=== PATIENT | female | born 1940 | race Caucasian/White ===

== ENCOUNTER 2019-07-07 19:47 | Emergency (ER) | payer MEDICARE, OTHER, SELFPAY ==
--- NOTE | ~2019-07-07 | XR_ITS ---
EXAMINATION: XR chest 2V DATE: 07/07/2019 20:21 INDICATION: Shortness of breath and hypertension TECHNIQUE: AP and lateral views of the chest are obtained. COMPARISON: 06/03/2019 FINDINGS: The lungs are hyperinflated but free of acute opacities. There is no pleural effusion or pn eumothorax. The cardiomediastinal silhouette is normal. There is moderate thoracic spondylosis. IMPRESSION: 1. Hyperinflation without acute cardiopulmonary abnormality. Reviewed, dictated and finalized at location A. TRICIAN MAINTENANCE
[2019-07-07 19:52] VITALS: BP 193/72; PULSE 65; RESP 16; TEMP 36.8; O2SAT 99
--- NOTE | 2019-07-07 19:58 | ED.RECABL ---
HPI - Recheck/Abnormal Lab/Rx General Chief Complaint: Recheck/Abnormal Lab/Rx Stated Complaint: elevated bp Time Seen by Provider: 07/07/19 19:55 Source: patient and RN notes reviewed Mode of arrival: ambulatory Limitations: no limitations History of Present Illness HPI narrative: Pt is a 78 y/o female presenting to the ED c/o HTN. Pt reports she has been experiencing HTN recently. Pt states she was prescribed Carvedilol a month ago. Pt states she was originally prescribed the medication to be taken BID but reduced it to once daily after a check-up a week later. Pt reports she experienced palpitations, mild SOB, and tinnitus earlier today, but denies CP, HEARD, numbness, weakness, back pain, jaw pain, or arm pain. Pt states her SOB and palpitations have since resolved from their onset. Pt notes she is only currently taking Amiodarone due to a Hx of A Flutter on 05/[address] Stewart. Pt states her PCP is Dr. Thornton. Pt notes she had a TIA at the age of 29 but states they attributed it to her control. Pt was never a smoker. Description of abnormal result: HTN Associated symptoms: shortness of breath (Resolved) and other (Palpitations (resolved); Tinnitus) Treatments prior to arrival: other (6.25 mg Carvedilol) Related Data Home Medications Medication Instructions Recorded Confirmed calcium carbonate 600 mg(1,500 1 tablet PO DAILY 04/16/19 06/26/19 mg)-vitamin D3 800 unit chewable tablet lifitegrast 5 % eye drops in a 1 drop EACH EYE BID 04/16/19 06/26/19 dropperette ivqxslij-crn-xvcdr ac 400 tablet PO 04/16/19 06/26/19 mcg-calcium carb 500 mg-vit K1 20 mcg tablet rivaroxaban 20 mg tablet 20 mg PO DAILY 04/16/19 06/26/19 artifi.tears(hypromellose)(PF) 0.3 1 drop EACH EYE DAILY PRN 04/17/19 06/26/19 % eye drops lifitegrast 5 % eye drops in a 1 drop EACH EYE BID 04/17/19 06/26/19 dropperette jedskdzwyjql-otgrlcpf-caonmlq-folic 1 tablet PO DAILY 04/17/19 06/26/19 acid 400 mcg-vit K1 20 mcg tablet peppermint oil 90 mg 90 mg PO BID 04/17/19 06/26/19 capsule,delayed,extended release rivaroxaban 20 mg tablet 20 mg PO DAILY 04/17/19 06/26/19 Allergies Allergy/AdvReac Type Severity Reaction Status Date / Time monosodium glutamate Allergy Unknown unkwown Verified 06/26/19 09:54 Review of Systems Review of Systems: All systems reviewed & are unremarkable except as noted in HPI and below ENT: Reports tinnitus Cardiovascular: Cardiovascular: Denies chest pain and Reports palpitations (Resolved) Respiratory: Respiratory: Reports dyspnea (Resolved) Musculoskeletal: Musculoskeletal: Denies back pain and Denies other (Jaw pain; arm pain) Neurologic: Denies headache(s), Denies numbness and Denies weakness PMF Past Medical History Medical History Arthritis Atrial fibrillation Colitis Elevated lipids Headache, migraine Hypertension Surgical History Surgical History H/O hernia repair History of eyelid surgery History of uterine suspension procedure Family History Family History Mother Acute myocardial infarction, Onset Age: 93 Family history of liver disease, Onset Age: 93 Family history of chronic obstructive pulmonary disease Family history of renal failure, Onset Age: 93 Family history of elevated blood lipids Family history of kidney disease Family history of congestive heart failure Father Family history of migraine headaches Hypertension Other Cerebrovascular accident Diabetes mellitus Family history of cardiovascular disease Family history of malignant neoplasm Social History Social History Smoking status: Never smoker Alcohol intake: never Gender identity (if verbalized by the patient): Female Exam Const: General: cooperative, no acute distress and alert Nutritional Rajesh
--- NOTE | 2019-07-07 20:07 | ECG_ITS ---
Measurements Intervals [place] Rate: 61 P: 266 NE: 117 QRS: -34 QRSD: 96 T: 63 QT: 423 QTc: 429 Interpretive Statements ECTOPIC ATRIAL RHYTHM LEFT AXIS DEVIATION CANNOT RULE OUT SEPTAL INFARCT, AGE INDETERMINATE BASELINE ARTIFACT- I, III, AVL, V2 ABNORMAL ECG Electronically Signed On 07-08-2019 6:50:00 COLLECTION CORRESPONDENT by Garrison Stewart D.O.
[2019-07-07 20:34] LABS: Basophils Percent Auto 0.4 % (0.2-1.2); Eosinophils Absolute Auto 0.1 K/mm3 (0-0.3); Eosinophils Percent Auto 1.3 % (0-4.4); Hematocrit 38.5 % (37.0-47.0); Hemoglobin 12.9 g/dL (12.0-15.0); Immature Granulocyte Absolute 0.01 K/mm3 (0.00-0.031); Immature Granulocyte Percent A 0.1 % (0-0.5); Lymphocytes Absolute Auto 1.89 K/mm3 (0.9-3.2); Lymphocytes Percent Auto 22.3 % (18.3-44.2); Mean Corpuscular HGB Conc 33.5 g/dl (32-36); Mean Corpuscular Hemoglobin 30.9 pg (26-34); Mean Corpuscular Volume 92.3 fl (80-100); Mean Platelet Volume 9.3 fl (7.4-10.4); Monocytes Absolute Auto 0.7 K/mm3 (0.1-0.6); Monocytes Percent Auto 7.8 % (2.6-8.5); Neutrophils Absolute Auto 5.8 K/mm3 (1.3-6.7); Neutrophils Percent Auto 68.1 % (45.5-73.1); Platelet Count Result 219 k/mm3 (150-375); Red Blood Count 4.17 M/mm3 (4.2-5.4); Red Cell Distribution Width 12.7 % (11.5-14.5); White Blood Count 8.5 K/mm3 (4.5-10.0)
[2019-07-07 20:46] LABS: Alanine Aminotransferase 22 U/L (4-35); Albumin Level 4.3 g/dL (3.5-5.1); Alkaline Phosphatase 94 U/L (38-126); Aspartate Amino Transferase 36 U/L (14-36); Bilirubin,Total 0.5 mg/dL (0.2-1.3); Blood Urea Nitrogen 21 mg/dL (7-17); Calcium 9.6 mg/dL (8.4-10.2); Carbon Dioxide 28 mmol/L (22-30); Chloride 94 mmol/L (98-107); Estimated CRCL calculation 38 ml/min; Estimated Glomerular Filt Rate 54; Glucose 127 mg/dL (65-105); Potassium 4.3 mmol/L (3.4-5.0); Sodium 135 mmol/L (137-145)
[2019-07-07 20:58] LABS: NT Pro B Type Natriuretic Pept 597 PG/ML (5-100); Troponin I < 0.012 ng/mL (0.000-0.034)
[2019-07-07 21:53] VITALS: BP 122/51; PULSE 51; RESP 18; O2SAT 98
== END 2019-07-07 21:53 | disposition home or self-care (01) ==
LOC: ANHED 21:24
PROVIDERS: Emergency Provider Emergency Medicine; PCP Emergency Medicine
DX: I10 Essential (primary) hypertension (principal); I48.92 Unspecified atrial flutter; M19.90 Unspecified osteoarthritis, unspecified site; R06.02 Shortness of breath; R94.31 Abnormal electrocardiogram [ECG] [EKG]; I48.91 Unspecified atrial fibrillation; Z86.73 Personal history of transient ischemic attack (TIA), and cerebral infarction without residual deficits; Z79.01 Long term (current) use of anticoagulants
CPT/HCPCS: 36415; 71046; 80053; 83880; 84484; 85025; 93005; 99284

== ENCOUNTER → 2019-08-13 15:34 | Outpatient (CLI) | payer MEDICARE, OTHER, SELFPAY ==
--- NOTE | ~2019-08-13 | XR_ITS ---
XR chest 2V DATE: 08/13/2019 16:09 INDICATION: Pain at costochondral junctions TECHNIQUE: PA and lateral views COMPARISON: 07/07/2021 view chest FINDINGS: Bilateral hyperinflation suggesting COPD. Bilateral apical capping, mild elevation of the h yudith, consistent with chronic bilateral upper lobe scarring and volume loss. No pulmonary infiltrate or consolidation, pleural effusion or pulmonary vascular congestion or pneumo thorax. Heart size is within normal limits. Diffuse idiopathic skeletal hyperostosis of the thoracic spine.. IMPRESSION: Bilateral hyperinflation suggesting COPD Bilateral chronic upper lobe scarring and volume loss Diffuse idiopathic skeletal hyperostosis of the thoracic spine. Reviewed, dictated and finalized at location J.
== END ==
PROVIDERS: PCP Emergency Medicine; Visit Provider Emergency Medicine
DX: M94.0 Chondrocostal junction syndrome [Tietze] (principal); R91.8 Other nonspecific abnormal finding of lung field; M48.14 Ankylosing hyperostosis [Forestier], thoracic region
CPT/HCPCS: 71046

== ENCOUNTER 2019-08-21 13:40 | Emergency (ER) | payer MEDICARE, OTHER, SELFPAY ==
--- NOTE | 2019-08-21 13:50 | ED.GENADULT ---
HPI - General Adult General Chief complaint: Back Pain/Injury Stated complaint: sob/rib pain Time Seen by Provider: 08/21/19 13:50 Source: patient Mode of arrival: ambulatory Limitations: no limitations History of Present Illness HPI narrative: 78-year-old female patient presents to the [facility] with complaints of chest burning and rib pain that has been intermittent for the past couple of months. Patient states that her doctor sent her for chest x-ray last week and she was diagnosed with COPD. Patient was given an albuterol inhaler prescribed by her primary doctor and she does have a follow-up appointment at the end of this month to see him. Patient states that the pain continues and was advised by her primary doctor that this most likely is pleurisy and was advised to take Tylenol for the pain which she states that she has not yet taken. Patient presents to the [facility] stating that she would wishes to be checked out because she was never actually seen by her doctor and the pain has not gone away despite her not taking the Tylenol. Patient states she has used her albuterol inhaler a couple times. Patient denies any fevers. Denies any coughing. Denies any flulike symptoms. Denies any chest pain or shortness of breath at this time. Patient denies any abdominal pain, nausea, vomiting or diarrhea. Related Data Home Medications Medication Instructions Recorded Confirmed calcium carbonate 600 mg(1,500 1 tablet PO DAILY 04/16/19 07/10/19 mg)-vitamin D3 800 unit chewable tablet lifitegrast 5 % eye drops in a 1 drop EACH EYE BID 04/16/19 07/10/19 dropperette artifi.tears(hypromellose)(PF) 0.3 1 drop EACH EYE DAILY PRN 04/17/19 07/10/19 % eye drops isqfwsxqzghq-pnwkbgzz-kqlzznk-folic 1 tablet PO DAILY 04/17/19 07/10/19 acid 400 mcg-vit K1 20 mcg tablet peppermint oil 90 mg 90 mg PO BID 04/17/19 07/10/19 capsule,delayed,extended release Allergies Allergy/AdvReac Type Severity Reaction Status Date / Time monosodium glutamate AdvReac Unknown Fatigued Verified 08/21/19 13:49 Review of Systems Review of Systems: Narrative: CONSTITUTIONAL: Denies fever, chills, or sweats. EYES: Denies visual changes, redness, or discharge. ENT: Denies rhinorrhea, congestion, sore throat, or otalgia. CARDIOVASCULAR: Positive rib/chest pain intermittently for the past couple of months, denies palpitations, or edema. RESPIRATORY: Denies cough or dyspnea. GASTROINTESTINAL: Denies abdominal pain, nausea, vomiting, or diarrhea. GENITOURINARY: Denies dysuria or hematuria. SKIN: Denies rash or itching. MUSCULOSKELETAL: Denies back pain, joint pain, or myalgia. NEUROLOGIC: Denies headache, numbness, or weakness. PSYCHIATRIC: Denies anxiety or depression. [facility] Past Medical History Medical History Arthritis Atrial fibrillation Colitis Elevated lipids Headache, migraine Hypertension Surgical History Surgical History H/O hernia repair History of eyelid surgery History of uterine suspension procedure Family History Family History Mother Acute myocardial infarction, Onset Age: 93 Family history of liver disease, Onset Age: 93 Family history of chronic obstructive pulmonary disease Family history of renal failure, Onset Age: 93 Family history of elevated blood lipids Family history of kidney disease Family history of congestive heart failure Father Family history of migraine headaches Hypertension Other Cerebrovascular accident Diabetes mellitus Family history of cardiovascular disease Family history of malignant neoplasm Social History Social History Smoking status: Never smoker Alcohol intake: never Gender identity (if verbalized by the patient): Female Comments At the time of my
[2019-08-21 13:52] VITALS: BP 171/84; PULSE 57; RESP 16; TEMP 37.1; O2SAT 97
--- NOTE | 2019-08-21 14:02 | ECG_ITS ---
Measurements Intervals [place] Rate: 56 P: -89 FL: 123 QRS: -37 QRSD: 102 T: 69 QT: 438 QTc: 425 Interpretive Statements ECTOPIC ATRIAL BRADYCARDIA LEFT AXIS DEVIATION CANNOT RULE OUT SEPTAL INFARCT, AGE INDETERMINATE BASELINE ARTIFACT- I, II, AVR ABNORMAL ECG Electronically Signed On 08-21-2019 14:15:11 CDT by Garrison Stewart D.O.
== END 2019-08-21 14:27 | disposition home or self-care (01) ==
PROVIDERS: Emergency Provider Nurse Practitioner Family; PCP Emergency Medicine
DX: R07.9 Chest pain, unspecified (principal); M54.5 Low back pain; R94.31 Abnormal electrocardiogram [ECG] [EKG]; M19.90 Unspecified osteoarthritis, unspecified site; I48.91 Unspecified atrial fibrillation; I10 Essential (primary) hypertension; J44.9 Chronic obstructive pulmonary disease, unspecified
CPT/HCPCS: 93005; 99213; G0463

== ENCOUNTER 2019-09-07 06:55 | Inpatient (IN) | payer MEDICARE, OTHER, SELFPAY ==
[2019-09-07] VITALS (11 sets, daily range): BP systolic 122–189; BP diastolic 57–107; PULSE 55–110; RESP 15–20; TEMP 36.4–36.9; O2SAT 97–100; BMI 26.6
--- NOTE | ~2019-09-07 | XR_ITS ---
EXAMINATION: XR chest 2V DATE: 09/09/2019 10:23 INDICATION: Hyponatremia. TECHNIQUE: Frontal and lateral views of the chest were obtained. COMPARISON: Chest 2 views 08/13/2019, CT abdomen and pelvis 09/07/2019 FINDINGS: There is mild scarring at the lung apices. There is a small left posterior diaphragmatic he rnia. No pleural effusion or pneumothorax. The heart size is normal. IMPRESSION: 1. Mild scarring at the lung apices. Reviewed, dictated and finalized at location A.
--- NOTE | ~2019-09-07 | CT_ITS ---
EXAMINATION: CT abdomen pelvis w con INDICATION: Abdominal pain TECHNIQUE: Computed tomographic images of the abdomen and pelvis were obtained after the administrati on of 100 cc of Omnipaque 350 intravenous contrast. The dose-length product (DLP) was 384.77 mGy-cm. Automated exposure control and iterative reconstruction technique were employed. COMPARISON: 09/14/2018 FINDINGS: There are tree-in-bud opacities of the right lower lobe. The heart size is normal. Pectus e xcavatum is noted. The liver, spleen, pancreas, gallbladder, and adrenal glands are normal. Hypoatten uating lesions in the kidneys, measuring up to 2 mm in the right kidney, are too small to characteriz e but likely represent cysts. No pathologically enlarged abdominal or pelvic lymph nodes are identifi ed. There is no free intraperitoneal gas or evidence of bowel obstruction. There is moderate distenti on of the urinary bladder. Calcified uterine fibroids are noted. There is moderate lumbar spondylosis . IMPRESSION: 1. No CT correlate for the patient's symptoms. Reviewed, dictated and finalized at location A.
--- NOTE | ~2019-09-07 | US_ITS ---
EXAMINATION: US carotid duplex BI EXAM DATE: 09/09/2019 16:18 INDICATION: Left carotid bruit. TECHNIQUE: Grayscale, color and pulsed Doppler images of the cervical carotid arteries were obtained . The degree of vessel stenosis is placed in one of the following categories: normal, <50% stenosis, 50-69% stenosis, >=70% stenosis but less than near-occlusion, near-occlusion, or occlusion. Note that percent stenosis relative to normal distal artery lumen diameter is indirectly measured from velocit y measurements as described by Hari, et al. Radiology 2003; [id number]:[id number]. Comparison is made to prior examination from 11/02/2007. FINDINGS: RIGHT SIDE: Right common carotid artery peak systolic velocity (PSV in cm/s): 93 Right bulb/internal carotid artery peak systolic velocity (PSV in cm/s): 192 Right internal carotid artery end diastolic velocity (EDV in cm/s): 62 Right ICA/CCA peak systolic ratio: 2.1 Right external carotid artery peak systolic velocity (PSV in cm/s): 106 Right vertebral artery antegrade flow: yes There is no focal plaque. LEFT SIDE: Left common carotid artery peak systolic velocity (PSV in cm/s): 107 Left bulb/internal carotid artery peak systolic velocity (PSV in cm/s): 222 Left internal carotid artery end diastolic velocity (EDV in cm/s): 71 Left ICA/CCA peak systolic ratio: 2.1 Left external carotid artery peak systolic velocity (PSV in cm/s): 85 Left vertebral artery antegrade flow: yes There is no focal plaque. IMPRESSION: 1. Normal right internal carotid artery. 2. Normal left internal carotid artery. Reviewed, dictated and finalized at location A.
--- NOTE | 2019-09-07 07:10 | ED.NAVMDI ---
HPI - Nausea/Vomiting/Diarrhea General Chief complaint: Nausea/Vomiting/Diarrhea Stated complaint: n/v Source: RN notes reviewed History of Present Illness HPI Narrative: Patient presents to emergency department from home for diarrhea. Patient states she has had 7 episodes of diarrhea starting this morning. States it all been watery in nature. She notes some mild lower abdominal cramping with the symptoms. Patient also notes associated nausea but denies any vomiting. Patient states she was feeling fine last night. She denies any fevers or chills chest pain shortness of breath or any other symptoms. Patient did receive Zofran 4 mg in route by EMS Related Data Home Medications Medication Instructions Recorded Confirmed calcium carbonate 600 mg(1,500 1 tablet PO DAILY 04/16/19 09/07/19 mg)-vitamin D3 800 unit chewable tablet lifitegrast 5 % eye drops in a 1 drop EACH EYE BID 04/16/19 09/07/19 dropperette artifi.tears(hypromellose)(PF) 0.3 1 drop EACH EYE DAILY PRN 04/17/19 09/07/19 % eye drops gbqcmjiiqeio-worroeni-lcdnhmm-folic 1 tablet PO DAILY 04/17/19 09/07/19 acid 400 mcg-vit K1 20 mcg tablet Allergies Allergy/AdvReac Type Severity Reaction Status Date / Time monosodium glutamate AdvReac Unknown Fatigued Verified 09/07/19 07:03 Review of Systems Review of Systems: Narrative: Gen.: Denies fevers or chills ENT: Denies congestion Respiratory: Denies shortness of breath or cough CV: Denies chest pain or palpitations GI: See HPI denies burning, urgency, frequency or hematuria Musculoskeletal: Denies back pain or muscle pain Neuro: Denies numbness, tingling, weakness or focal weakness Skin: Denies rash Except as documented, all other systems reviewed and negative PMF Past Medical History Medical History Arthritis Atrial fibrillation Colitis Elevated lipids Headache, migraine Hypertension Social History Social History Smoking status: Never smoker Alcohol intake: never Gender identity (if verbalized by the patient): Female Exam Narrative: Exam Narrative: APPEARANCE: No acute distress, nontoxic, resting in bed HEENT: Normocephalic, atraumatic, OMM RESPIRATORY: No respiratory distress, clear to auscultation bilaterally with no rhonchi wheezing or rales CARDIOVASCULAR: RRR s murmur ABDOMINAL: Soft, nondistended, tender palpation left lower quadrant, no tenderness in right lower quadrant, right upper quadrant left upper quadrant, no rebound or guarding MUSCULOSKELETAl: Moves all extremities. No clubbing, cyanosis or edema. NEURO: Awake and alert. Following commands, speech normal, no focal deficits SKIN:: Warm, dry. Normal Color PSYCHIATRIC: Normal affect/mood Course Course Emergency Course: Patient states she was started on hydrochlorothiazide approximately 1 month ago Discussed with Dr. Macias presentation work-up he agrees with admission at this time. Recommends patient continue with 0.9 normal saline at 100 mL an hour Discussed with patient and family results of workup and diagnosis. Discussed need for admission. Patient and family understand and agree to current treatment plan Vital Signs Vital signs: Vital Signs Temperature 97.6 F 09/07/19 06:59 Pulse Rate 60 09/07/19 06:59 Respiratory Rate 20 09/07/19 06:59 Blood Pressure 189/82 H 09/07/19 06:59 Pulse Oximetry 97 09/07/19 06:59 Temperature 97.6 F 09/07/19 06:59 Pulse Rate 55 L 09/07/19 10:10 Respiratory Rate 19 09/07/19 09:16 Blood Pressure 137/77 09/07/19 10:10 Pulse Oximetry 100 09/07/19 10:10 MDM - Nausea/Vomiting/Diarrhea Lab Data Result diagrams: 09/07/19 07:36 09/07/19 07:36 Labs: Lab Results 09/07/19 09/07/19 09/07/19 Range/Units 07:16 07:36 07:36 WBC 8.1 (4.5-10.0) K/mm3 RBC 3.94 L (4.2-5.4) M/mm3 Hgb 12.4 (12
[2019-09-07] MEDS: SODIUM CHLORIDE 0.9% IV 1,000 ML 999 ML IV CONT (07:20)
[2019-09-07 07:27] LABS: Add Urine Microscopic? YES; Appearance Urine Clear (Clear); Bacteria Urine Trace /hpf; Bilirubin Urine Negative (Negative); Blood Urine 3+ (Negative); Color Urine Straw (Yellow); Glucose Urine UA 1+ mg/dL (Negative); Ketones Urine Negative (Negative); Leukocyte Esterase Ur Negative LEU/UL (Negative); Mucus Urine Rare /lpf; Nitrate Urine Negative (Negative); Protein Urine Negative (Negative); RBC Urine >75 /hpf (0-2); Specific Grav Ur 1.008 (1.001-1.035); Urobilinogen Urine Negative mg/dL (<2.0); WBC Urine 0-3 /hpf
[2019-09-07 07:44] LABS: Basophils Percent Auto 0.1 % (0.2-1.2); Eosinophils Percent Auto 0.5 % (0-4.4); Hematocrit 34.9 % (37.0-47.0); Hemoglobin 12.4 g/dL (12.0-15.0); Immature Granulocyte Absolute 0.03 K/mm3 (0.00-0.031); Immature Granulocyte Percent A 0.4 % (0-0.5); Lymphocytes Absolute Auto 1.04 K/mm3 (0.9-3.2); Lymphocytes Percent Auto 12.9 % (18.3-44.2); Mean Corpuscular HGB Conc 35.5 g/dl (32-36); Mean Corpuscular Hemoglobin 31.5 pg (26-34); Mean Corpuscular Volume 88.6 fl (80-100); Mean Platelet Volume 8.7 fl (7.4-10.4); Monocytes Absolute Auto 0.7 K/mm3 (0.1-0.6); Monocytes Percent Auto 9.2 % (2.6-8.5); Neutrophils Absolute Auto 6.2 K/mm3 (1.3-6.7); Neutrophils Percent Auto 76.9 % (45.5-73.1); Platelet Count Result 207 k/mm3 (150-375); Red Blood Count 3.94 M/mm3 (4.2-5.4); Red Cell Distribution Width 12.1 % (11.5-14.5); White Blood Count 8.1 K/mm3 (4.5-10.0)
[2019-09-07 07:56] LABS: INR 1.8; Partial Thromboplastin Time 35.8 SECONDS (22.3-36.8); Prothrombin Time 20.4 Seconds (11.1-14.7)
[2019-09-07 07:56] LABS: Lactic Acid Reflex 1.9 mmol/L (0.7-2.1)
[2019-09-07 08:01] LABS: Alanine Aminotransferase 20 U/L (4-35); Albumin Level 4.2 g/dL (3.5-5.1); Alkaline Phosphatase 82 U/L (38-126); Aspartate Amino Transferase 31 U/L (14-36); Bilirubin,Total 0.7 mg/dL (0.2-1.3); Blood Urea Nitrogen 9 mg/dL (7-17); Calcium 8.6 mg/dL (8.4-10.2); Carbon Dioxide 25 mmol/L (22-30); Chloride 81 mmol/L (98-107); Estimated Glomerular Filt Rate > 60; Glucose 107 mg/dL (65-105); Lipase 26 U/L (23-300); Sodium 116 mmol/L (137-145)
--- NOTE | 2019-09-07 08:21 | ECG_ITS ---
Measurements Intervals [place] Rate: 62 P: -83 IA: 133 QRS: -47 QRSD: 110 T: 76 QT: 464 QTc: 472 Interpretive Statements ECTOPIC ATRIAL RHYTHM LEFT ANTERIOR FASCICULAR BLOCK BASELINE WANDER- I, II, AVR, AVL, AVF, V1 ABNORMAL ECG Electronically Signed On 09-07-2019 8:56:46 CDT by Garrison Stewart D.O.
--- NOTE | 2019-09-07 10:30 | PC.NURSE ---
Called floor to give report, Nurse was talking to pt doctor on phone and would call ED back.
--- NOTE | 2019-09-07 11:00 | ADMGEN ---
This patient, Beth Aaron, was admitted to Medical Room 250-. Patient/family oriented to hospital policies and general routines including ID bracelet, bed and alarms, visiting hours, pain management, procedures, bathroom and other care routines, personal items, smoking policy, room service/diet, and visiting hours. Valuables list has been completed. Information on how to activate the Rapid Response Team has been discussed. Patient/Family are encouraged to report perceived risks to care and to ask questions if they do not understand what they are told or what they should do.
[2019-09-07] MEDS: SODIUM CHLORIDE 0.9% IV 1,000 ML 100 ML IV CONT (11:48)
[2019-09-07] MEDS: ONDANSETRON INJ 4 MG/2 ML VIAL IV PUSH ×2 (12:08→19:19)
[2019-09-07] MEDS: ACETAMINOPHEN 325 MG TABLET 650 MG PO (12:28)
[2019-09-07] MEDS: AMIODARONE HCL 200 MG TABLET PO (14:10)
[2019-09-07] MEDS: THERAPEUTIC MULTIVITAMINS/MINERALS TAB (*BKC) 1 TABLET PO (14:11)
[2019-09-07] MEDS: carvediloL 6.25 MG TABLET PO ×2 (14:11→21:45)
--- NOTE | 2019-09-07 14:54 | PHAR ---
HOME MEDS VERIFIED = OCUSOFT RETAINE LUBRICANT EYE DROPS & XIIDRA 5% OPHTH ANDERSON. NO RX LABELS ON EITHER SO NOTHING TO COMPARE TO.
--- NOTE | 2019-09-07 15:15 | PM.IMHP ---
H&P: HPI History of Present Illness Chief complaint: Weakness, nausea, diarrhea. Narrative: Beth Aaron is a 79-year-old female with paroxysmal atrial fibrillation and hypertension who presented to the emergency department earlier today for evaluation of weakness, nausea, and diarrhea. Yesterday morning at 04:00, she was wakened from sleep with the urge to have a bowel movement and she reports having 7 episodes of diarrhea thereafter. She did take Imodium x1, which she believes upset her stomach, and since that time she has had severe nausea and almost no oral intake due to such. This morning she was very weak when she woke, and seemed a bit confused as well. She had a difficult time walking down the hallway due to profound weakness, and EMS was summoned. Labs showed profound hyponatremia and with further investigation, it looks like her sodium has been a bit low (around 130) since May of this year. She has also been having difficulties with her blood pressure spiking for which she was initially started on amlodipine however that was changed to lisinopril/hydrochlorothiazide several months ago due to development of edema with the amlodipine. She tries to stay hydrated, estimating she drinks 6 to 7, 8 ounce glasses of water a day. For the last 3 to 4 months, she has been much more mindful of the amount of sodium that she uses, and typically adds little to no salt to her food. At the time my evaluation, she mentions a mild headache but is feeling much better. No fever, chills, or sweats. She denies vomiting. No further diarrhea. No sick contacts. Review of Systems Review of Systems: Narrative: Twelve systems were reviewed with pertinent positives and negatives as per HPI. No fever, chills, or sweats. No recent cold or flu-like symptoms. She denies cough. No exertional chest pain. She has been experiencing shortness of breath when walking up steps, and was recently diagnosed with COPD by her primary care provider, presumably due to significant secondhand smoke exposure over the years. No recent change in weight. No history of thyroid disease. Except as documented, all other systems were reviewed and are negative. [facility] Past Medical History Medical History (Updated 09/07/19 @ 15:58 by Margareth Navarro PA-C) Arthritis Colitis COPD (chronic obstructive pulmonary disease) Due to significant secondhand smoke exposure. Eczema Elevated lipids Headache, migraine Hypertension Paroxysmal atrial fibrillation Paroxysmal atrial fibrillation/atrial flutter. Patient of Dr. Garrison Stewart. Maintained on amiodarone and Xarelto. TIA (transient ischemic attack) At the age of 29, attributed to oral contraceptives. Surgical History Surgical History (Updated 09/07/19 @ 15:55 by Margareth Navarro PA-C) History of appendectomy History of eyelid surgery History of tonsillectomy History of uterine suspension procedure History of ventral hernia repair Family History Family History Mother Acute myocardial infarction, Onset Age: 93 Family history of liver disease, Onset Age: 93 Family history of chronic obstructive pulmonary disease Family history of renal failure, Onset Age: 93 Family history of elevated blood lipids Family history of kidney disease Family history of congestive heart failure Father Family history of migraine headaches Hypertension Other Cerebrovascular accident Diabetes mellitus Family history of cardiovascular disease Family history of malignant neoplasm Social History Social History (Updated 09/07/19 @ 15:56 by Margareth Navarro PA-C) Social History: The patient is and lives with her earnest in [place]. They have 2 children. 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 She is a lifelong nonsmoker but reports significant secondhand smoke exposure. No alcohol or drug abuse. Her is her surrogate decision maker, and she wishes to
[2019-09-07 15:47] LABS: Sodium 124 mmol/L (137-145)
[2019-09-07] MEDS: DEXTROSE 5% 1,000 ML 1,000 ML 100 ML IV CONT (16:27)
[2019-09-07] MEDS: RIVAROXABAN 20 MG TABLET PO (16:33)
[2019-09-07 16:52] LABS: Creatinine Urine 20.6 mg/dL
[2019-09-07 17:01] LABS: Sodium Urine Random 13 meq/L
[2019-09-07 18:55] LABS: Sodium 124 mmol/L (137-145)
[2019-09-07 18:59] LABS: Blood Urea Nitrogen 8 mg/dL (7-17); Calcium 8.6 mg/dL (8.4-10.2); Carbon Dioxide 27 mmol/L (22-30); Chloride 90 mmol/L (98-107); Estimated CRCL calculation 53 ml/min; Estimated Glomerular Filt Rate > 60; Glucose 124 mg/dL (65-105); Potassium 3.7 mmol/L (3.4-5.0); Sodium 124 mmol/L (137-145)
[2019-09-07] MEDS: DESMOPRESSIN ACETATE 4 MCG/ML AMP 2 MCG SUB-Q (19:59)
[2019-09-07 22:20] LABS: Sodium 124 mmol/L (137-145)
[2019-09-08 01:04] LABS: Sodium 121 mmol/L (137-145)
[2019-09-08 03:49] LABS: Basophils Percent Auto 0.2 % (0.2-1.2); Eosinophils Absolute Auto 0.1 K/mm3 (0-0.3); Eosinophils Percent Auto 0.9 % (0-4.4); Hematocrit 32.1 % (37.0-47.0); Hemoglobin 11.1 g/dL (12.0-15.0); Immature Granulocyte Absolute 0.02 K/mm3 (0.00-0.031); Immature Granulocyte Percent A 0.2 % (0-0.5); Lymphocytes Absolute Auto 1.73 K/mm3 (0.9-3.2); Lymphocytes Percent Auto 21.2 % (18.3-44.2); Mean Corpuscular HGB Conc 34.6 g/dl (32-36); Mean Corpuscular Hemoglobin 31.4 pg (26-34); Mean Corpuscular Volume 90.9 fl (80-100); Mean Platelet Volume 8.5 fl (7.4-10.4); Monocytes Absolute Auto 1.1 K/mm3 (0.1-0.6); Monocytes Percent Auto 13.1 % (2.6-8.5); Neutrophils Absolute Auto 5.2 K/mm3 (1.3-6.7); Neutrophils Percent Auto 64.4 % (45.5-73.1); Platelet Count Result 175 k/mm3 (150-375); Red Blood Count 3.53 M/mm3 (4.2-5.4); Red Cell Distribution Width 12.9 % (11.5-14.5); White Blood Count 8.2 K/mm3 (4.5-10.0)
[2019-09-08 04:23] LABS: Blood Urea Nitrogen 10 mg/dL (7-17); Calcium 8.3 mg/dL (8.4-10.2); Carbon Dioxide 25 mmol/L (22-30); Chloride 89 mmol/L (98-107); Estimated CRCL calculation 46 ml/min; Estimated Glomerular Filt Rate > 60; Glucose 86 mg/dL (65-105); Magnesium 1.7 mg/dL (1.6-2.3); Phosphorus 3.5 mg/dL (2.5-4.5); Potassium 3.6 mmol/L (3.4-5.0); Sodium 120 mmol/L (137-145)
[2019-09-08 06:00] VITALS: BP 123/54; PULSE 64; RESP 16; TEMP 36.7; O2SAT 99
[2019-09-08 07:04] LABS: Sodium 121 mmol/L (137-145)
[2019-09-08] MEDS: SODIUM CHLORIDE 0.9% IV 1,000 ML 75 ML IV CONT (09:28)
[2019-09-08 09:29] VITALS: PULSE 64
[2019-09-08] MEDS: carvediloL 6.25 MG TABLET PO ×2 (09:29→22:00)
[2019-09-08] MEDS: AMIODARONE HCL 200 MG TABLET PO (09:29)
[2019-09-08] MEDS: THERAPEUTIC MULTIVITAMINS/MINERALS TAB (*BKC) 1 TABLET PO (09:29)
[2019-09-08 10:48] VITALS: BP 148/52; PULSE 50; RESP 18; TEMP 36.7; O2SAT 100
--- NOTE | 2019-09-08 10:54 | ECG_ITS ---
Measurements Intervals [place] Rate: 55 P: 265 TX: 151 QRS: -17 QRSD: 109 T: 67 QT: 487 QTc: 468 Interpretive Statements ECTOPIC ATRIAL BRADYCARDIA DELAYED PRECORDIAL R/S TRANSITION BORDERLINE ECG Electronically Signed On 09-08-2019 14:59:11 CDT by Garrison Stewart D.O.
[2019-09-08 11:41] LABS: Troponin I < 0.012 ng/mL (0.000-0.034)
[2019-09-08 12:46] LABS: Sodium 119 mmol/L (137-145)
--- NOTE | 2019-09-08 13:06 | PM.IMPN ---
Progress Note: A&P Assessment and Plan (1) Hyponatremia: Code(s): E87.1 - Hypo-osmolality and hyponatremia Status: Acute Assessment and Plan: The patient presented with sodium of 116. This is likely multifactorial as she has been on hydrochlorothiazide since Jun and she had 7 episodes of diarrhea Monday with poor oral intake. Urine sodium is 13 and FENA is 0.451 suggesting a pre-renal etiology for her hyponatremia. TSH was WNL. BNP is mildly elevated at 597. She had an echo 12/07/17 which revealed EF 65-70%, mild LVH, mild MR, trace AI, and mild-moderate TR. Urine and serum osmolality are pending. She received 1L fluid bolus in the ED and maintenance fluids of NS at 100cc/hr yesterday. Repeat sodium was 124 approximately 7 hours later so normal saline was discontinued and D5W was initiated to prevent sodium from rising too rapidly. She then received desmopressin. Repeat sodium this AM was 121. Normal saline was resumed and repeat sodium 3 hours later is 119. Pre-renal etiology is suspected so normal saline was resumed. Continue IV normal saline at 75 cc/hr Continue to monitor her sodium levels closely to ensure it does not correct too rapidly (2) Hypertension: Qualifiers: Hypertension type: unspecified Qualified Code(s): I10 - Essential (primary) hypertension Code(s): I10 - Essential (primary) hypertension Status: Acute Assessment and Plan: Blood pressures were reviewed and have improved. Continue lisinopril Continue carvedilol Hold hydrochlorothiazide Continue to monitor blood pressure (3) Paroxysmal atrial fibrillation: Code(s): I48.0 - Paroxysmal atrial fibrillation Status: Acute Assessment and Plan: Continue amiodarone Continue carvedilol Continue Xarelto (4) Chest discomfort: Code(s): R07.89 - Other chest pain Status: Resolved Assessment and Plan: The patient reported to nursing staff that she had an episode of chest discomfort described as 1/10 mild pressure in the left chest that resolved within 5 minutes and has not recurred. She reports that she is often anxious. I ordered STAT EKG and troponin. EKG was unchanged from her prior EKG yesterday and revealed ectopic atrial bradycardia with rate 55 and delayed precordial R/S transition, QTC 468. Troponin was negative. She follows with Dr. Stewart for primary cardiology and I called to discuss her case with him as well and asked lucila to review the EKGs and he agreed that her EKG was unchanged with no concern for ACS. She had a negative stress test 10/25/16. Continue to monitor Subjective Date/time seen: 09/08/19 13:06 Interval history: Mrs. Aaron is seen and examined at bedside. She reports an episode of very mild 1/10 left chest pressure this AM that she. She states that it lasted <5 minutes without recurrence. She notified nursing staff of her discomfort and STAT EKG and troponin were ordered. Troponin was <0.012 and EKG appears unchanged from EKG yesterday in the ED with ectopic atrial bradycardia. She follows with Dr. Stewart for cardiology. At the time of my visit, she reports some post-nasal drip. She denies nausea, vomiting, weakness, and confusion. She denies any current chest pain, SOB, and cough. She denies abdominal pain. She denies any further diarrhea since Monday. She is eating well without any complaints. Review of Systems Review of Systems: All systems reviewed & are unremarkable except as noted in HPI and below Exam Narrative: Exam Narrative: General: Pleasant, well-developed, well-nourished, and cooperative 79 y.o. female who appears her stated age who is in no acute distress. She is sitting in bed watching TV. HEENT: Normocephalic and atraumatic. Sclerae anicteric. Conjunctivae and lids normal. PERRL. EOMI. Mucous membranes moist. Posterior pharynx without erythema or exudate. Neck: Supple. No lymphadenopathy or masses. Cardiac: Regular rate an
[2019-09-08 14:00] VITALS: BP 108/51; PULSE 50; RESP 16; TEMP 36.6; O2SAT 100
[2019-09-08] MEDS: ONDANSETRON INJ 4 MG/2 ML VIAL IV PUSH (14:29)
[2019-09-08] MEDS: ACETAMINOPHEN 325 MG TABLET 650 MG PO (14:29)
[2019-09-08 15:42] LABS: Blood Urea Nitrogen 11 mg/dL (7-17); Calcium 7.8 mg/dL (8.4-10.2); Carbon Dioxide 26 mmol/L (22-30); Chloride 84 mmol/L (98-107); Estimated CRCL calculation 59 ml/min; Estimated Glomerular Filt Rate > 60; Glucose 95 mg/dL (65-105); Potassium 3.9 mmol/L (3.4-5.0); Sodium 116 mmol/L (137-145)
[2019-09-08 19:24] LABS: Sodium 115 mmol/L (137-145)
[2019-09-08] MEDS: SODIUM CHLORIDE 3% 500 ML 80 ML IV CONT (20:16)
[2019-09-08 22:00] VITALS: BP 148/57; PULSE 54; PULSE 56; RESP 18; TEMP 36.8; O2SAT 99
[2019-09-08 23:10] LABS: Sodium 118 mmol/L (137-145)
[2019-09-09 02:42] LABS: Sodium 119 mmol/L (137-145)
[2019-09-09 05:35] LABS: Hematocrit 32.5 % (37.0-47.0); Hemoglobin 11.2 g/dL (12.0-15.0); Mean Corpuscular HGB Conc 34.5 g/dl (32-36); Mean Platelet Volume 8.7 fl (7.4-10.4); Platelet Count Result 184 k/mm3 (150-375); Red Blood Count 3.61 M/mm3 (4.2-5.4); Red Cell Distribution Width 12.5 % (11.5-14.5); White Blood Count 7.6 K/mm3 (4.5-10.0)
[2019-09-09 05:47] LABS: Magnesium 1.7 mg/dL (1.6-2.3); Sodium 121 mmol/L (137-145)
[2019-09-09 06:00] VITALS: BP 155/52; PULSE 51; RESP 16; TEMP 36.4; O2SAT 99
[2019-09-09 07:58] LABS: Alanine Aminotransferase 17 U/L (4-35); Albumin Level 3.2 g/dL (3.5-5.1); Alkaline Phosphatase 71 U/L (38-126); Aspartate Amino Transferase 30 U/L (14-36); Bilirubin,Total 0.6 mg/dL (0.2-1.3); Blood Urea Nitrogen 11 mg/dL (7-17); Calcium 8.3 mg/dL (8.4-10.2); Carbon Dioxide 25 mmol/L (22-30); Chloride 90 mmol/L (98-107); Estimated CRCL calculation 60 ml/min; Estimated Glomerular Filt Rate > 60; Glucose 89 mg/dL (65-105); Potassium 3.8 mmol/L (3.4-5.0); Sodium 120 mmol/L (137-145)
[2019-09-09] MEDS: THERAPEUTIC MULTIVITAMINS/MINERALS TAB (*BKC) 1 TABLET PO (09:17)
[2019-09-09 09:18] VITALS: PULSE 60
[2019-09-09] MEDS: carvediloL 6.25 MG TABLET PO ×2 (09:18→21:31)
[2019-09-09] MEDS: lisinopriL 10 MG TABLET PO (09:18)
[2019-09-09 10:25] LABS: Sodium 124 mmol/L (137-145)
--- NOTE | 2019-09-09 11:47 | PM.IMPN ---
Progress Note: A&P Assessment and Plan (1) Hyponatremia: Code(s): E87.1 - Hypo-osmolality and hyponatremia Status: Acute Assessment and Plan: The patient presented with sodium of 116. This is likely multifactorial as she has been on hydrochlorothiazide since Jun, she had 7 episodes of diarrhea Monday, and she also reports that she typically drinks 5-7 8oz glasses of water, two glasses of tea, and 1 glass of coffee. Urine sodium is 13 and FENA is 0.451 suggesting a pre-renal etiology for her hyponatremia. TSH was WNL. BNP is mildly elevated at 597. She had an echo 12/07/17 which revealed EF 65-70%, mild LVH, mild MR, trace AI, and mild-moderate TR. Urine and serum osmolality are pending. Sodium this AM was 121 and repeat 4 hours later is 124. Sodium seems to be autocorrecting at this time. She is on a fluid restriction. Plan to increase fluid allowances to prevent correction too rapidly. Continue to hold hydrochlorothiazide Continue to monitor her sodium levels closely to ensure it does not correct too rapidly (2) Hypertension: Qualifiers: Hypertension type: unspecified Qualified Code(s): I10 - Essential (primary) hypertension Code(s): I10 - Essential (primary) hypertension Status: Acute Assessment and Plan: Blood pressures were reviewed and are acceptable. Lisinopril was resumed today. Continue lisinopril Continue carvedilol Hold hydrochlorothiazide Continue to monitor blood pressure (3) Paroxysmal atrial fibrillation: Code(s): I48.0 - Paroxysmal atrial fibrillation Status: Acute Assessment and Plan: Continue amiodarone Continue carvedilol Continue Xarelto (4) Chest discomfort: Code(s): R07.89 - Other chest pain Status: Resolved Assessment and Plan: The patient reported to nursing staff that she had an episode of chest discomfort 09/07 described as 1/10 mild pressure in the left chest that resolved within 5 minutes and has not recurred. She reports that she is often anxious. I ordered STAT EKG and troponin. EKG was unchanged from her prior EKG yesterday and revealed ectopic atrial bradycardia with rate 55 and delayed precordial R/S transition, QTC 468. Troponin was negative. She follows with Dr. Stewart for primary cardiology and I called to discuss her case with him as well and asked him to review the EKGs and he agreed that her EKG was unchanged with no concern for ACS. She had a negative stress test 10/25/16. She has no further complaints of pain today. Continue to monitor (5) Left carotid bruit: Code(s): R09.89 - Other specified symptoms and signs involving the circulatory and respiratory systems Status: Acute Assessment and Plan: Plan for carotid US Subjective Date/time seen: 09/09/19 11:47 Interval history: The patient is seen and examined at bedside in follow-up for hyponatremia. She reports a mild headache overnight which has resolved today. She has no other complaints. She denies shortness of breath and chest pain. She reports post-nasal drip and mucinex was added which is helping. She denies abdominal pain, nausea, and vomiting. She denies dizziness and lightheadedness. She denies palpitations. She is eating well. She denies diarrhea. Review of Systems Review of Systems: All systems reviewed & are unremarkable except as noted in HPI and below Exam Narrative: Exam Narrative: General: Very pleasant, well-developed, well-nourished, and cooperative 79 y.o. female sitting in bed watching TV. She is in no acute distress. HEENT: Normocephalic and atraumatic. Sclerae anicteric. Conjunctivae and lids normal. PERRL. EOMI. Mucous membranes moist. Posterior pharynx without erythema or exudate. The pt has an aphthous ulcer. Neck: Supple. No lymphadenopathy or masses. Cardiac: Regular rate and rhythm. S1 and S2 normal. 2/6 systolic murmur best auscultated at the LSB. Left carotid bruit. Swati
[2019-09-09 12:04] VITALS: PULSE 56
[2019-09-09] MEDS: AMIODARONE HCL 200 MG TABLET PO (12:04)
[2019-09-09 14:00] VITALS: BP 145/57; PULSE 60; RESP 16; TEMP 36.2; O2SAT 100
[2019-09-09 15:16] LABS: Sodium 128 mmol/L (137-145)
--- NOTE | 2019-09-09 16:18 | PM.CNNEP ---
Assessment and Plan Assessment and plan (1) Hyponatremia: Code(s): E87.1 - Hypo-osmolality and hyponatremia Status: Acute Assessment and Plan: Beth has what appears to be acute on chronic hyponatremia. She has several risk factors for this issue/problem including the use of hydrochlorothiazide as a blood pressure agent, excessive water intake, as well as what appears to be some susceptibility to chronic hyponatremia at baseline by labs done earlier this year. Further complicating matters is the fact that she had nausea vomiting and diarrhea which makes susceptible to volume depletion/dehydration thereby worsening her hyponatremia as well. The fact that her sodium level corrected so quickly just with normal saline IV fluids would be indicative of her relative volume depletion coupled with the fact that her urine sodium level is quite low which represents prerenal azotemia. At this point, since her sodium level seems to be ?self correcting, I have reduced her free water restriction and if necessary I may have to give her more D5W and DDAVP to ensure that she does not overcorrect once again. In general, whether be acute or chronic hyponatremia, correction of the sodium level is ideally done at around 6:29 a.m. millimoles per L in a 24 hour period of time and she is already on the edge with regard to this rate of correction. I will continue follow the trend of her repeat sodium levels and as already mentioned, make further interventions to ensure that her sodium level does not overcorrect with the goal to try to get her sodium level around 130 millimoles per L as this appears to be relatively close to her baseline. For further evaluation of her hyponatremia, I will check an SPEP UPEP follow up on her serum and urine osmolality, and hold her hydrochlorothiazide at this time. Her TSH and cortisol level are already noted to be normal. Greater than 20 minutes was spent in detail discussion with the patient regarding the issue of her hyponatremia, the necessity of slow correction of this electrolyte, the reasoning behind the frequent blood test to assess the correction of her sodium level, and the presumed etiology of the hyponatremia in general. I will continue follow patient with you while she remains hospitalized and make further recommendations during hospital course. Thank you for allowing me to participate in the care this patient. History of Present Illness Reason for Consult Consult date: 09/09/19 Reason for consult: hyponatremia Chief Complaint Chief complaint: Weakness, nausea, diarrhea. History of Present Illness Narrative: The patient is a 79-year-old female with a past medical history as outlined below who presented to [facility] ER for complaints of weakness, nausea, and vomiting. The day before yesterday, she was sent we will can up early in the morning with a sudden urge to have a bowel movement. Following the initial bowel movement she had reportedly 7 episodes of diarrhea thereafter. In effort to try to quell this symptom she took Imodium but this apparently led to severe nausea associated with some mild vomiting which led to poor oral intake afterwards. The next day she apparently felt more weaker than usual and slightly confused she had some difficulty walking down the hallway or even doing simple activities of daily living in general. Due to all these issues, she came to the ER for further evaluation and therapy. Workup and evaluation emergency room demonstrated the patient to be hemodynamically stable but routine blood test demonstrated profound hyponatremia. Aside from the aforementioned symptoms noted above, the only other complaint she had was a mild headache on admission which has since resolved. Due to her severe hyponatremia as well as the symptoms that led to her presentation to the ER, she was admitted to the hospital for further evaluation and therapy. Renal consultation was requested due
[2019-09-09] MEDS: DEXTROSE 5% 1,000 ML 1,000 ML 200 ML IV CONT ×2 (16:55→22:50)
[2019-09-09] MEDS: DESMOPRESSIN ACETATE 4 MCG/ML AMP 1 MCG SUB-Q (16:58)
[2019-09-09] MEDS: RIVAROXABAN 20 MG TABLET PO (17:01)
[2019-09-09 17:31] LABS: Sodium 128 mmol/L (137-145)
[2019-09-09 21:31] VITALS: PULSE 66
[2019-09-09 22:00] VITALS: BP 126/48; PULSE 54; RESP 18; TEMP 36.5; O2SAT 98
[2019-09-09 22:25] LABS: Sodium 127 mmol/L (137-145)
[2019-09-10 02:56] LABS: Hematocrit 31.3 % (37.0-47.0); Hemoglobin 10.9 g/dL (12.0-15.0); Mean Corpuscular HGB Conc 34.8 g/dl (32-36); Mean Corpuscular Hemoglobin 31.9 pg (26-34); Mean Corpuscular Volume 91.5 fl (80-100); Mean Platelet Volume 8.7 fl (7.4-10.4); Platelet Count Result 189 k/mm3 (150-375); Red Blood Count 3.42 M/mm3 (4.2-5.4); White Blood Count 8.7 K/mm3 (4.5-10.0)
[2019-09-10 03:11] LABS: Alanine Aminotransferase 16 U/L (4-35); Albumin Level 3.1 g/dL (3.5-5.1); Alkaline Phosphatase 77 U/L (38-126); Aspartate Amino Transferase 24 U/L (14-36); Bilirubin,Total 0.3 mg/dL (0.2-1.3); Blood Urea Nitrogen 14 mg/dL (7-17); Calcium 8.1 mg/dL (8.4-10.2); Carbon Dioxide 28 mmol/L (22-30); Chloride 93 mmol/L (98-107); Estimated CRCL calculation 60 ml/min; Estimated Glomerular Filt Rate > 60; Glucose 77 mg/dL (65-105); Potassium 3.8 mmol/L (3.4-5.0); Sodium 127 mmol/L (137-145)
[2019-09-10 06:00] VITALS: BP 123/46; PULSE 46; RESP 12; TEMP 36.3; O2SAT 99
[2019-09-10 06:28] LABS: Sodium 126 mmol/L (137-145)
--- NOTE | 2019-09-10 09:01 | PM.IMPN ---
Progress Note: A&P Assessment and Plan (1) Hyponatremia: Code(s): E87.1 - Hypo-osmolality and hyponatremia Status: Acute Assessment and Plan: The patient presented with sodium of 116. This is likely multifactorial as she has been on hydrochlorothiazide since Jun, she had 7 episodes of diarrhea on 09/05, and she also reports that she typically drinks 5-7 8oz glasses of water, two glasses of tea, and 1 glass of coffee. Urine sodium is 13 and FENA is 0.451 suggesting a pre-renal etiology for her hyponatremia. TSH was WNL. Urine and serum osmolality are pending. Cortisol wnl. Received one dose of DDAVP on 09/08. Sodium this AM was 126. She is on a fluid restriction. Nephrology is following and recommendations are greatly appreciated. Continue to hold hydrochlorothiazide Continue to monitor her sodium levels closely Q4H to ensure it does not correct too rapidly. (2) Hypertension: Qualifiers: Hypertension type: unspecified Qualified Code(s): I10 - Essential (primary) hypertension Code(s): I10 - Essential (primary) hypertension Status: Acute Assessment and Plan: Blood pressure evaluated today and stable at 123/46. Continue lisinopril Continue carvedilol Hold hydrochlorothiazide Continue to monitor blood pressure (3) Paroxysmal atrial fibrillation: Code(s): I48.0 - Paroxysmal atrial fibrillation Status: Acute Assessment and Plan: Stable. Patient is bradycardic. Continue amiodarone Continue carvedilol Continue Xarelto (4) Chest discomfort: Code(s): R07.89 - Other chest pain Status: Resolved Assessment and Plan: The patient reported to nursing staff that she had an episode of chest discomfort 09/07 described as 1/10 mild pressure in the left chest that resolved within 5 minutes and has not recurred. She reports that she is often anxious. EKG was unchanged from her prior EKG yesterday and revealed ectopic atrial bradycardia with rate 55 and delayed precordial R/S transition, QTC 468. Troponin was negative. She follows with Dr. Stewart and he agreed that her EKG was unchanged with no concern for ACS. She has no further complaints of pain today. Continue to monitor (5) Left carotid bruit: Code(s): R09.89 - Other specified symptoms and signs involving the circulatory and respiratory systems Status: Acute Assessment and Plan: Left carotid bruit noted on exam. Carotid Doppler reveals normal right and left ICA. Subjective Date/time seen: 09/10/19 09:01 Interval history: Date of service: 09/10/2019 Ms. Aaron reports she is feeling well today and had no events overnight. She tells me that she has occasional mild headaches since she has been here in the hospital but denies other symptoms or acute pain. She has been ambulating to the restroom without difficulty. She denies dizziness, lightheadedness, weakness, fatigue, confusion, shortness of breath, chest pain, or abdominal pain. She has not had a BM in 3 days. She reports she is urinating less frequently because she has been restricting fluid intake. She denies dysuria or hematuria. Her appetite has been good and she is eating breakfast at time of visit. She is sleeping well. Review of Systems Review of Systems: Narrative: A 12 point review of systems was performed with pertinent positives and negatives as per HPI. Exam Narrative: Exam Narrative: Ms. Aaron is examined alone today. She is a well nourished 79 year old female who is sitting up in bed eating breakfast. She appears comfortable and is in NARD. HR 46, BP 123/46, RR 12, T 97.3. Neuro: awake, alert and oriented x3, speech clear, no focal neuro deficits noted HEENMT: normocephalic, atraumatic, EOMI, PERRL, sclerae anicteric, moist oral mucosa Neck: supple, no lymphadenopathy Respiratory: clear to auscultation bilaterally, normal respiratory effort, 99% on room air Cardio: bradycardic,
[2019-09-10] MEDS: lisinopriL 10 MG TABLET PO (10:00)
[2019-09-10] MEDS: THERAPEUTIC MULTIVITAMINS/MINERALS TAB (*BKC) 1 TABLET PO (10:00)
[2019-09-10 10:01] VITALS: PULSE 53
[2019-09-10] MEDS: carvediloL 6.25 MG TABLET PO ×2 (10:01→21:14)
[2019-09-10 10:49] LABS: Sodium 127 mmol/L (137-145)
--- NOTE | 2019-09-10 11:09 | PM.PNNEP ---
Progress Note: A&P Assessment and Plan (1) Hyponatremia: Code(s): E87.1 - Hypo-osmolality and hyponatremia Status: Acute Assessment and Plan: appears acute on chronic - baseline sodium runs 131 - 135 multifactorial etiology: - HCTZ use - excessive free water intake - nausea/vomiting/diarrhea appears to be stabilizing (concerns for overcorrection in the last 24 - 48 hours requiring D5W, DDAVP, and 3% saline) reinstitute fluid restriction follow trend of repeat sodiums Will continue to follow. Subjective Date/time seen: 09/10/19 11:09 Continues to feel well in general; due to concerns of overcorrection of sodium, received 2 rounds of D5W IVFs and one dose of DDAVP yesterday afternoon/evening; remains quite well at this time with no complaints voiced; no events overnight or earlier this AM. Exam Narrative: Exam Narrative: General: WD/WN female in NAD Heart: normal S1 and S2; no rub Lungs: clear to auscultation Abdomen: soft, nontender, nondistended, positive bowel sounds Extremities: no cyanosis or clubbing; no edema Skin: warm and dry Objective Data Vital Signs Vital Signs: Vital Signs Temp Pulse Resp BP Pulse Ox 09/10/19 10:01 53 L 09/10/19 06:00 36.3 C L 46 L 12 123/46 L 99 09/09/19 22:00 36.5 C 54 L 18 126/48 L 98 09/09/19 21:31 66 09/09/19 14:00 36.2 C L 60 16 145/57 H 100 09/09/19 12:04 56 L Intake/Output Intake/Output: Intake & Output 09/07/19 09/08/19 09/09/19 09/10/19 23:59 23:59 23:59 23:59 Intake Total 2610 3190 830 1590 Output Total 1400 1850 2275 800 Balance 1210 1340 -1445 790 Meds/Results Medications: Active Medications Generic Name Dose Route Start Last Admin Trade Name Freq PRN Reason Stop Dose Admin Acetaminophen 650 mg 09/07/19 11:25 09/08/19 14:29 Tylenol Tablet PO 650 mg Q6H PRN Administration Mild Pain (1-3) or Fever Albuterol 1 - 2 puff 09/07/19 11:23 Proventil Hfa INHALATION Q4H PRN SOB OR WHEEZING Amiodarone HCl 200 mg 09/09/19 12:00 09/09/19 12:04 Pacerone PO 200 mg DAILY@1200 MARTIN Administration Calcium Carbonate 500 mg 09/07/19 09:00 09/10/19 10:01 Os-Clemente 500 +D Tablet PO 500 mg QAM MARTIN Administration Carvedilol 6.25 mg 09/07/19 12:00 09/10/19 10:01 Coreg PO 6.25 mg Q12HR MARTIN Administration Guaifenesin 600 mg 09/08/19 21:00 09/10/19 10:01 Mucinex 12 Hr Tab PO 600 mg Q12HR MARTIN Administration Lisinopril 10 mg 09/09/19 09:00 09/10/19 10:00 Prinivil PO 10 mg DAILY MARTIN Administration Multivitamins/Calcium 1 tablet 09/07/19 09:00 09/10/19 10:00 Therapeutic Multivitamins/Minerals PO 1 tablet DAILY MARTIN Administration Ondansetron HCl 4 mg 09/07/19 11:22 09/08/19 14:29 Zofran Inj IV PUSH 4 mg Q6H PRN Administration Nausea And Vomiting Polyethylene Glycol 17 gm 09/10/19 09:15 Miralax PO QAM PRN Constipation Rivaroxaban 20 mg 09/07/19 17:00 09/09/19 17:01 Xarelto PO 20 mg Q48H MARTIN Administration Radiology Results: ITS Impressions Abdomen/Pelvis CT 09/07/19 08:42 IMPRESSION: 1. No CT correlate for the patient's symptoms. Chest X-Ray 09/09/19 10:26 IMPRESSION: 1. Mild scarring at the lung apices. Carotid Doppler Study 09/09/19 16:45 IMPRESSION: 1. Normal right internal carotid artery. 2. Normal left internal carotid artery. Labs Labs: Laboratory Tests 09/10/19 02:41 09/10/19 10:33
[2019-09-10 11:47] VITALS: PULSE 56
[2019-09-10] MEDS: AMIODARONE HCL 200 MG TABLET PO (11:47)
[2019-09-10 14:00] VITALS: BP 133/50; PULSE 55; RESP 16; TEMP 36.5; O2SAT 99
[2019-09-10 17:00] LABS: Sodium 125 mmol/L (137-145)
[2019-09-10] MEDS: polyethylene glycoL 3350 17 GM POWD.PACK PO (17:01)
[2019-09-10 19:24] LABS: Sodium 126 mmol/L (137-145)
[2019-09-10] MEDS: ACETAMINOPHEN 325 MG TABLET 650 MG PO (20:04)
--- NOTE | 2019-09-10 20:08 | ECG_ITS ---
Measurements Intervals [place] Rate: 56 P: 267 OR: 145 QRS: -28 QRSD: 108 T: 63 QT: 442 QTc: 427 Interpretive Statements ECTOPIC ATRIAL BRADYCARDIA DELAYED PRECORDIAL R/S TRANSITION BASELINE ARTIFACT- I, II, III, V5 ABNORMAL ECG Electronically Signed On 09-11-2019 7:14:41 CDT by Garrison Stewart D.O.
[2019-09-10 21:14] VITALS: PULSE 80
[2019-09-10 21:29] VITALS: BP 154/44; PULSE 54; RESP 20; TEMP 36.6; O2SAT 98
[2019-09-10] MEDS: RIVAROXABAN 20 MG TABLET PO (21:57)
--- NOTE | 2019-09-10 22:33 | PC.NURSE ---
Notified by patient that she takes Xerelto q24h. Scheduled admin is q48h with no apparent reason. Pharmacy notified and rescheduled to q24h, 1700 dose given at 2200 per recommendation from pharmacist
[2019-09-10 23:14] LABS: Sodium 125 mmol/L (137-145)
[2019-09-11] VITALS (7 sets, daily range): BP systolic 102–134; BP diastolic 41–66; PULSE 52–57; RESP 16–20; TEMP 35.8–36.5; O2SAT 97–100
[2019-09-11 02:50] LABS: Alanine Aminotransferase 16 U/L (4-35); Alkaline Phosphatase 69 U/L (38-126); Aspartate Amino Transferase 23 U/L (14-36); Bilirubin,Total 0.3 mg/dL (0.2-1.3); Blood Urea Nitrogen 14 mg/dL (7-17); Calcium 8.3 mg/dL (8.4-10.2); Carbon Dioxide 28 mmol/L (22-30); Chloride 94 mmol/L (98-107); Estimated CRCL calculation 59 ml/min; Estimated Glomerular Filt Rate > 60; Glucose 94 mg/dL (65-105); Potassium 4.5 mmol/L (3.4-5.0); Sodium 126 mmol/L (137-145)
[2019-09-11 02:55] LABS: Hematocrit 30.5 % (37.0-47.0); Hemoglobin 10.5 g/dL (12.0-15.0); Mean Corpuscular HGB Conc 34.4 g/dl (32-36); Mean Corpuscular Hemoglobin 31.7 pg (26-34); Mean Corpuscular Volume 92.1 fl (80-100); Platelet Count Result 187 k/mm3 (150-375); Red Blood Count 3.31 M/mm3 (4.2-5.4); Red Cell Distribution Width 12.9 % (11.5-14.5); White Blood Count 8.9 K/mm3 (4.5-10.0)
[2019-09-11 04:14] LABS: Osmolality, Urine 144 mOsm/kg (50-1200)
[2019-09-11 07:06] LABS: Sodium 127 mmol/L (137-145)
[2019-09-11] MEDS: lisinopriL 10 MG TABLET PO (09:15)
[2019-09-11] MEDS: THERAPEUTIC MULTIVITAMINS/MINERALS TAB (*BKC) 1 TABLET PO (09:15)
[2019-09-11] MEDS: carvediloL 6.25 MG TABLET PO ×2 (09:18→20:17)
[2019-09-11 11:53] LABS: Sodium 127 mmol/L (137-145)
--- NOTE | 2019-09-11 12:58 | PM.IMPN ---
Progress Note: A&P Assessment and Plan (1) Hyponatremia: Code(s): E87.1 - Hypo-osmolality and hyponatremia Status: Acute Assessment and Plan: The patient presented with sodium of 116, which appears to be an acute on chronic hyponatremia. This is likely multifactorial as she has been on hydrochlorothiazide since Jun, she had 7 episodes of diarrhea on 09/05, and she also reports an excess free water intake. Urine sodium is 13 and FENA is 0.451 suggesting a pre-renal etiology for her hyponatremia. TSH was WNL. Urine and serum osmolality are pending. Cortisol wnl. Received one dose of DDAVP on 09/08. Sodium this AM was 127. Goal sodium is approximately 130 and baseline appears to be 131-135. Nephrology is following and recommendations are greatly appreciated. Continue to hold hydrochlorothiazide Continue fluid restriction Continue to monitor her sodium levels closely Q4H to avoid over-correction. (2) Hypertension: Qualifiers: Hypertension type: unspecified Qualified Code(s): I10 - Essential (primary) hypertension Code(s): I10 - Essential (primary) hypertension Status: Acute Assessment and Plan: Blood pressure evaluated today and stable at 134/66. Continue lisinopril Continue carvedilol Hold hydrochlorothiazide Continue to monitor blood pressure (3) Paroxysmal atrial fibrillation: Code(s): I48.0 - Paroxysmal atrial fibrillation Status: Acute Assessment and Plan: Stable. Patient is bradycardic. Continue amiodarone Continue carvedilol Continue Xarelto Check INR to ensure therapeutic range. (4) Chest discomfort: Code(s): R07.89 - Other chest pain Status: Resolved Assessment and Plan: The patient reported to nursing staff that she had an episode of chest discomfort 09/07 described as 1/10 mild pressure in the left chest that resolved within 5 minutes and has not recurred. She reports that she is often anxious. EKG was unchanged from her prior EKG yesterday and revealed ectopic atrial bradycardia with rate 55 and delayed precordial R/S transition, QTC 468. Troponin was negative. She follows with Dr. Stewart and he agreed that her EKG was unchanged with no concern for ACS. She has no further complaints of pain today. Continue to monitor (5) Left carotid bruit: Code(s): R09.89 - Other specified symptoms and signs involving the circulatory and respiratory systems Status: Acute Assessment and Plan: Left carotid bruit noted on exam. Carotid Doppler reveals normal right and left ICA. Subjective Date/time seen: 09/11/19 12:58 Interval history: Date of service: 09/11/2019 Ms. Aaron reports she is feeling well today. She describes a brief episode of lower rib pain that she described as a burning sensation which lasted approximately 15 minutes and subsided. She says this occurs very rarely. She denies headaches, dizziness, lightheadedness, or confusion. She is breathing without difficulty and denies SOB or chest pain. She denies back pain, abdominal pain, nausea, vomiting, fever, or chills. She had a bowel movement this morning. She is urinating less frequently given her fluid restriction. Her appetite is adequate. She is sleeping well. Review of Systems Review of Systems: Narrative: A 12 point review of systems was reviewed with pertinent positives and negatives as per HPI. Exam Narrative: Exam Narrative: Ms. Aaron is examined alone today. She is a well nourished 79 year old female who is sitting up in bed eating lunch. She appears comfortable and is in NARD. HR 53, BP 134/66, R 16, T 96.5? Neuro: awake, alert and oriented x3, speech clear, no focal neuro deficits noted HEENMT: normocephalic, atraumatic, EOMI, PERRL, sclerae anicteric, moist oral mucosa Neck: supple, no lymphadenopathy Respiratory: clear to auscultation bilaterally, normal respiratory effort, 100% on room air Cardio: Regul
[2019-09-11] MEDS: AMIODARONE HCL 200 MG TABLET PO (13:01)
[2019-09-11 16:38] LABS: Albumin 3.2 g/dL (3.8-4.8); Alpha 1 Globulin 0.2 g/dL (0.2-0.3); Alpha 2 Globulin 0.7 g/dL (0.5-0.9); Beta 1 Globulin 0.4 g/dL (0.4-0.6); Gamma Globulin 0.7 g/dL (0.8-1.7); Interpretation Consistent with; Protein, Total 5.3 g/dL (6.1-8.1)
[2019-09-11 17:00] LABS: Sodium 130 mmol/L (137-145)
[2019-09-11] MEDS: RIVAROXABAN 20 MG TABLET PO (17:28)
--- NOTE | 2019-09-11 18:03 | PM.PNNEP ---
Progress Note: A&P Assessment and Plan (1) Hyponatremia: Code(s): E87.1 - Hypo-osmolality and hyponatremia Status: Acute Assessment and Plan: appears acute on chronic - baseline sodium runs 131 - 135 multifactorial etiology: - HCTZ use - excessive free water intake - nausea/vomiting/diarrhea - urine lytes suggest pre-renal azotemia appears to be stabilizing/improving on fluid restriction TSH and cortisol okay SPE/UPE and osmolality pending follow trend of repeat sodiums If sodium continues to improve, would not be opposed to discharge tomorrow. Will continue to follow. Subjective Date/time seen: 09/11/19 18:03 Appears to be doing reasonably well at this time; sodium continues to improve with fluid restriction; no other complaints voiced at this time. Exam Narrative: Exam Narrative: General: WD/WN female in NAD Heart: normal S1 and S2; no rub Lungs: clear to auscultation Abdomen: soft, nontender, nondistended, positive bowel sounds Extremities: no cyanosis or clubbing; no edema Skin: warm and intact Objective Data Vital Signs Vital Signs: Vital Signs Temp Pulse Resp BP Pulse Ox 09/11/19 14:00 36.4 C 52 L 16 102/48 L 97 09/11/19 13:03 53 L 16 122/41 L 98 09/11/19 13:01 53 L 09/11/19 09:18 54 L 09/11/19 04:47 35.8 C L 53 L 16 134/66 100 09/10/19 21:29 36.6 C 54 L 20 154/44 H 98 09/10/19 21:14 80 Intake/Output Intake/Output: Intake & Output 09/08/19 09/09/19 09/10/19 09/11/19 23:59 23:59 23:59 23:59 Intake Total 3190 830 2630 590 Output Total 1850 2275 1525 3500 Balance 1340 -1445 1105 -2910 Meds/Results Medications: Active Medications Generic Name Dose Route Start Last Admin Trade Name Freq PRN Reason Stop Dose Admin Acetaminophen 650 mg 09/07/19 11:25 09/10/19 20:04 Tylenol Tablet PO 650 mg Q6H PRN Administration Mild Pain (1-3) or Fever Albuterol 1 - 2 puff 09/07/19 11:23 Proventil Hfa INHALATION Q4H PRN SOB OR WHEEZING Amiodarone HCl 200 mg 09/09/19 12:00 09/11/19 13:01 Pacerone PO 200 mg DAILY@1200 MARTIN Administration Calcium Carbonate 500 mg 09/07/19 09:00 09/11/19 09:15 Os-Clemente 500 +D Tablet PO 500 mg QAM MARTIN Administration Carvedilol 6.25 mg 09/07/19 12:00 09/11/19 09:18 Coreg PO 6.25 mg Q12HR MARTIN Administration Guaifenesin 600 mg 09/08/19 21:00 09/11/19 09:28 Mucinex 12 Hr Tab PO Not Given Q12HR MARTIN Lisinopril 10 mg 09/09/19 09:00 09/11/19 09:15 Prinivil PO 10 mg DAILY MARTIN Administration Multivitamins/Calcium 1 tablet 09/07/19 09:00 09/11/19 09:15 Therapeutic Multivitamins/Minerals PO 1 tablet DAILY MARTIN Administration Ondansetron HCl 4 mg 09/07/19 11:22 09/08/19 14:29 Zofran Inj IV PUSH 4 mg Q6H PRN Administration Nausea And Vomiting Polyethylene Glycol 17 gm 09/10/19 09:15 09/10/19 17:01 Miralax PO 17 gm QAM PRN Administration Constipation Rivaroxaban 20 mg 09/10/19 17:00 09/11/19 17:28 Xarelto PO 20 mg Q24H MARTIN Administration Radiology Results: ITS Impressions Abdomen/Pelvis CT 09/07/19 08:42 IMPRESSION: 1. No CT correlate for the patient's symptoms. Chest X-Ray 09/09/19 10:26 IMPRESSION: 1. Mild scarring at the lung apices. Carotid Doppler Study 09/09/19 16:45 IMPRESSION: 1. Normal right internal carotid artery. 2. Normal left internal carotid artery. Labs Labs: Laboratory Tests 09/11/19 02:30 09/11/19 16:43
[2019-09-11 21:26] LABS: Sodium 129 mmol/L (137-145)
[2019-09-12 04:23] LABS: Osmolality, Urine 177 mOsm/kg (50-1200)
[2019-09-12 05:15] LABS: Hematocrit 33.5 % (37.0-47.0); Hemoglobin 11.3 g/dL (12.0-15.0); Mean Corpuscular HGB Conc 33.7 g/dl (32-36); Mean Corpuscular Hemoglobin 31.7 pg (26-34); Mean Corpuscular Volume 93.8 fl (80-100); Mean Platelet Volume 8.7 fl (7.4-10.4); Platelet Count Result 209 k/mm3 (150-375); Red Blood Count 3.57 M/mm3 (4.2-5.4); Red Cell Distribution Width 13.4 % (11.5-14.5); White Blood Count 8.3 K/mm3 (4.5-10.0)
[2019-09-12 05:26] LABS: INR 2.5; Prothrombin Time 26.8 Seconds (11.1-14.7)
[2019-09-12 05:27] LABS: Blood Urea Nitrogen 19 mg/dL (7-17); Carbon Dioxide 34 mmol/L (22-30); Chloride 97 mmol/L (98-107); Estimated CRCL calculation 46 ml/min; Estimated Glomerular Filt Rate > 60; Glucose 80 mg/dL (65-105); Magnesium 2.2 mg/dL (1.6-2.3); Potassium 5.1 mmol/L (3.4-5.0); Sodium 131 mmol/L (137-145)
[2019-09-12 06:00] VITALS: BP 131/54; PULSE 51; RESP 21; TEMP 36.6; O2SAT 100
[2019-09-12] MEDS: carvediloL 6.25 MG TABLET PO (09:14)
[2019-09-12] MEDS: THERAPEUTIC MULTIVITAMINS/MINERALS TAB (*BKC) 1 TABLET PO (09:17)
[2019-09-12 11:17] LABS: Sodium 131 mmol/L (137-145)
[2019-09-12 11:55] VITALS: PULSE 50
[2019-09-12 12:50] VITALS: BP 105/43; PULSE 47
[2019-09-12 12:53] VITALS: BP 112/44; PULSE 48
[2019-09-12 12:56] VITALS: BP 126/49; PULSE 53
[2019-09-12 13:01] VITALS: BP 108/53; PULSE 51; RESP 16; TEMP 35.9; O2SAT 100
[2019-09-12 14:05] LABS: Potassium 4.3 mmol/L (3.4-5.0); Sodium 132 mmol/L (137-145)
--- NOTE | 2019-09-12 15:51 | PM.PNNEP ---
Progress Note: A&P Assessment and Plan (1) Hyponatremia: Code(s): E87.1 - Hypo-osmolality and hyponatremia Status: Acute Assessment and Plan: resolved appears acute on chronic - baseline sodium runs 131 - 135 multifactorial etiology: - HCTZ use - excessive free water intake - nausea/vomiting/diarrhea - urine lytes suggest pre-renal azotemia on fluid restriction TSH and cortisol okay SPE/UPE and osmolality pending (and can be follow-up as an outpatient) follow trend of repeat sodiums Not opposed to discharge - would keep her off HCTZ and keep her on a 1500cc fluid restriction after discharge. Will continue to follow if remains hospitalized Subjective Date/time seen: 09/12/19 15:51 Overall, seems to be doing reasonably well; sodium levels appear to have stabilized with current therapy; no apparent distres voiced at this time. Exam Narrative: Exam Narrative: General: WD/WN female in NAD Heart: normal S1 and S2; no rub Lungs: clear to auscultation Abdomen: soft, nontender, nondistended, positive bowel sounds Extremities: no cyanosis or clubbing; no edema Skin: no rash or nodules Objective Data Vital Signs Vital Signs: Vital Signs Temp Pulse Resp BP Pulse Ox 09/12/19 13:01 35.9 C L 51 L 16 108/53 L 100 09/12/19 12:56 53 L 126/49 L 09/12/19 12:53 48 L 112/44 L 09/12/19 12:50 47 L 105/43 L 09/12/19 11:55 50 L 09/12/19 06:00 36.6 C 51 L 21 H 131/54 L 100 09/11/19 22:00 36.5 C 57 L 20 116/54 L 98 09/11/19 20:17 57 L Intake/Output Intake/Output: Intake & Output 09/09/19 09/10/19 09/11/19 09/12/19 23:59 23:59 23:59 23:59 Intake Total 830 2630 830 600 Output Total 2275 1525 3500 1400 Balance -1445 0778 -8555 -559 Meds/Results Medications: Active Medications Generic Name Dose Route Start Last Admin Trade Name Freq PRN Reason Stop Dose Admin Acetaminophen 650 mg 09/07/19 11:25 09/10/19 20:04 Tylenol Tablet PO 650 mg Q6H PRN Administration Mild Pain (1-3) or Fever Albuterol 1 - 2 puff 09/07/19 11:23 Proventil Hfa INHALATION Q4H PRN SOB OR WHEEZING Amiodarone HCl 200 mg 09/09/19 12:00 09/12/19 11:55 Pacerone PO Not Given DAILY@1200 MARTIN Calcium Carbonate 500 mg 09/07/19 09:00 09/12/19 09:15 Os-Clemente 500 +D Tablet PO 500 mg QAM MARTIN Administration Carvedilol 6.25 mg 09/07/19 12:00 09/12/19 09:14 Coreg PO 6.25 mg Q12HR [facility] Administration Guaifenesin 600 mg 09/08/19 21:00 09/12/19 09:17 Mucinex 12 Hr Tab PO Not Given Q12HR [facility] Lisinopril 10 mg 09/09/19 09:00 09/11/19 09:15 Prinivil PO 10 mg DAILY [facility] Administration Multivitamins/Calcium 1 tablet 09/07/19 09:00 09/12/19 09:17 Therapeutic Multivitamins/Minerals PO 1 tablet DAILY [facility] Administration Ondansetron HCl 4 mg 09/07/19 11:22 09/08/19 14:29 Zofran Inj IV PUSH 4 mg Q6H PRN Administration Nausea And Vomiting Polyethylene Glycol 17 gm 09/10/19 09:15 09/10/19 17:01 Miralax PO 17 gm QAM PRN Administration Constipation Rivaroxaban 20 mg 09/10/19 17:00 09/11/19 17:28 Xarelto PO 20 mg Q24H MARTIN Administration Radiology Results: ITS Impressions Abdomen/Pelvis CT 09/07/19 08:42 IMPRESSION: 1. No CT correlate for the patient's symptoms. Chest X-Ray 09/09/19 10:26 IMPRESSION: 1. Mild scarring at the lung apices. Carotid Doppler Study 09/09/19 16:45 IMPRESSION: 1. Normal right internal carotid artery. 2. Normal left internal carotid artery. Labs Labs: Laboratory Tests 09/12/19 04:51 09/12/19 13:49
--- NOTE | 2019-09-12 16:35 | PM.DS ---
DS: Diagnosis Admitting Diagnosis Admitting Diagnosis: Hypo-osmolality and hyponatremia Discharge Diagnosis (1) Hyponatremia: Code(s): E87.1 - Hypo-osmolality and hyponatremia Status: Acute (2) Hypertension: Qualifiers: Hypertension type: unspecified Qualified Code(s): I10 - Essential (primary) hypertension Code(s): I10 - Essential (primary) hypertension Status: Acute (3) Paroxysmal atrial fibrillation: Code(s): I48.0 - Paroxysmal atrial fibrillation Status: Acute (4) Chest discomfort: Code(s): R07.89 - Other chest pain Status: Resolved (5) Left carotid bruit: Code(s): R09.89 - Other specified symptoms and signs involving the circulatory and respiratory systems Status: Acute DS: Summary Hospital Course Reason for hospitalization: Nausea, vomiting, diarrhea Hospital Course: Date of admission: 09/07/2019 Date of discharge: 09/12/2019 Beth Aaron is a 79-year-old female with a PMH significant for COPD, HTN, and AFib who presented to the emergency department on 09/07/2019 after having approximately 7 episodes of diarrhea. At presentation, she was hyponatremic at 116. She was admitted to the hospitalist service to manage her hyponatremia on 09/07/2019. This is likely acute on chronic hyponatremia as per chart review it appears that her baseline sodium is 131-135. Precipitating factors are likely multifactorial. In June she began taking lisinopril/hydrochlorothiazide. In addition she notes that she drinks 6-7 8-oz glasses of water daily, 2 glasses of tea, and 1 glass of coffee. Urine sodium and FENA suggest prerenal etiology. Nephrology was consulted and followed patient closely. Hydrochlorothiazide was held. She was given IV fluids however there was concern for auto correction which was too rapid, therefore she was placed on fluid restriction, given D5W and DDAVP. Her sodium steadily increased at an acceptable rate to 131. She developed blood pressures on the lower end of normal, therefore lisinopril was held. This was likely due to fluid restriction. She is encouraged to monitor her blood pressure at home and continue taking Coreg and amiodarone. INR was therapeutic on home Xarelto. She was noted to have a left carotid bruit on exam and underwent carotid doppler which revealed normal right and left ICA. Given her improvement in sodium, it was felt she was stable to discharge home. We talked in depth about the importance of fluid restriction. She was educated on her medication changes. She will obtain repeat BMP on Monday09/16/19. We discussed worrisome signs and symptoms for which to seek care. All of her questions were answered to her satisfaction. She was discharged home in hemodynamically stable conditon on the afternoon of 09/12/2019 with instructions to follow up with her PCP. Status at Discharge Functional status at discharge: independent ambulation Overall status at discharge: patient is back to baseline Time Spent with Patient Time attestation: Total time spent providing and/or coordinating discharge services:41 minutes Time spent: Greater than 30 minutes Exam Narrative: Exam Narrative: Ms. Aaron is examined alone today. She is a well nourished 79 year old female who is sitting up in bed eating lunch. She appears comfortable and is in NARD. HR 51, BP 131/54, RR 21, T 97.8? Neuro: awake, alert and oriented x3, speech clear, no focal neuro deficits noted HEENMT: normocephalic, atraumatic, EOMI, PERRL, sclerae anicteric, moist oral mucosa Neck: supple, no lymphadenopathy Respiratory: clear to auscultation bilaterally, normal respiratory effort, 100% on room air Cardio: Regular rate, regular rhythm, soft murmur noted at left sternal border Abdomen: normal to inspection, nondistended, normoactive bowel sounds, soft, nontender, no rigidity or guarding Extremities: BLE without edema, erythema, or tenderness to palpation, Ifeoma's sign negative, dorsal
[2019-09-12] MEDS: RIVAROXABAN 20 MG TABLET PO (17:11)
[2019-09-13 16:58] LABS: Creatinine, Random Urine 23 mg/dL (20-275); Total Protein/Creatinine Ratio 348 mg/g creat (21-161)
== END 2019-09-12 18:20 | disposition home or self-care (01) | DRG 641 ==
LOC: ANHED 09:45 → ANH2MED 10:08
PROVIDERS: Internal Medicine Nephrology; Physician Assistant; Admitting Provider Internal Medicine; Emergency Provider Emergency Medicine; PCP Emergency Medicine; Visit Provider Physician Assistant
DX: E87.1 Hypo-osmolality and hyponatremia (principal); I48.0 Paroxysmal atrial fibrillation; I10 Essential (primary) hypertension; R07.89 Other chest pain; R09.89 Other specified symptoms and signs involving the circulatory and respiratory systems; J44.9 Chronic obstructive pulmonary disease, unspecified; M19.90 Unspecified osteoarthritis, unspecified site; L30.9 Dermatitis, unspecified; Z86.73 Personal history of transient ischemic attack (TIA), and cerebral infarction without residual deficits
CPT/HCPCS: 36415; 71046; 74177; 80048; 80053; 81001; 82533; 82570; 83605; 83690; 83735; 83930; 83935; 84100; 84132; 84155; 84156; 84165; 84166; 84295; 84300; 84443; 84484; 85025; 85027; 85610; 85730; 93005; 93880; 96360; 99285; A9270; J2405; J2597; J7030; J7070; J7131; Q9967

== ENCOUNTER 2019-09-16 14:27 | Outpatient (CLI) | payer MEDICARE, OTHER, SELFPAY ==
[2019-09-16 15:20] LABS: Blood Urea Nitrogen 27 mg/dL (7-17); Calcium 9.1 mg/dL (8.4-10.2); Carbon Dioxide 32 mmol/L (22-30); Chloride 100 mmol/L (98-107); Estimated Glomerular Filt Rate 60; Glucose 88 mg/dL (65-105); Potassium 4.6 mmol/L (3.4-5.0); Sodium 137 mmol/L (137-145)
== END 2019-09-16 14:28 | disposition home or self-care (01) ==
PROVIDERS: PCP Emergency Medicine; Visit Provider Physician Assistant
DX: E87.1 Hypo-osmolality and hyponatremia (principal)
CPT/HCPCS: 36415; 80048

== ENCOUNTER 2019-11-08 08:52 | Outpatient (CLI) | payer MEDICARE, OTHER, SELFPAY ==
--- NOTE | ~2019-11-08 | NM_ITS ---
EXAMINATION: NM luis stress w perfusion DATE: 11/08/2019 11:11 INDICATION: Chest discomfort TECHNIQUE: Rest images were obtained following intravenous administration of 10 mCi Tc99m tetrofosmin (Myoview). The patient was infused intravenously with Lexiscan (Regadenoson). Then, 30.9 mCi Tc99m t etrofosmin (Myoview) was administered intravenously, and stress images were obtained. Data was recons tructed into short axis and horizontal and vertical long axis SPECT images. Gated SPECT images were a lso obtained. COMPARISON: None. FINDINGS: There is no definite reversible or fixed perfusion abnormality to suggest ischemia or infar ction. There is normal left ventricular chamber size, wall motion and ejection fraction. Left ventr icular ejection fraction measures >70%. IMPRESSION: 1. Normal myocardial perfusion at rest and during stress. 2. Left ventricular ejection fraction measuring >70%. Reviewed, dictated and finalized at location A.
--- NOTE | 2019-11-08 09:24 | EST_ITS ---
Patient Info Name: Beth Aaron Age: 79 years : 1940 Gender: Female Ht: 66 in Wt: 160 lbs BSA: 1.85 m2 Exam Date: 11/08/2019 9:59 AM Exam Location: [facility] Stress Patient Status: Outpatient Admit Date: 11/08/2019 Staff Ordering Physician: Garrison Stewart DO Attending Provider: Garrison Stewart DO Exercise Technologist: Nohelia Mayfield RDCS Exercise Physician: Garrison Stewart DO Exam Type: CA stress luis w NM Study Info Indications R07.89 - Other chest pain A regadenoson stress test was performed. Summary 1. 1. Negative lexiscan stress test for ischemic ST changes by ECG criteria. 2. 2. Stable hemodynamics throughout the test. 3. 3. Nuclear scan to follow and will be reported separately. Please correlate with it. 4. 4. Patient informed of the above results. Protocol: Lexiscan Stress ECG Details Stage: REST Duration (min): 5 min : 38 sec HR (bpm): 47 SBP (mmHg): 144 DBP (mmHg): 72 Stage: REST Duration (min): 9 min : 42 sec HR (bpm): 51 SBP (mmHg): 144 DBP (mmHg): 72 Stage: STAGE 1 Duration (min): 1 min : 0 sec HR (bpm): 58 SBP (mmHg): 142 DBP (mmHg): 70 Stage: RECOVERY Duration (min): 1 min : 0 sec HR (bpm): 62 SBP (mmHg): 135 DBP (mmHg): 72 Stage: RECOVERY Duration (min): 2 min : 0 sec HR (bpm): 60 SBP (mmHg): 135 DBP (mmHg): 72 Stage: RECOVERY Duration (min): 3 min : 0 sec HR (bpm): 58 SBP (mmHg): 126 DBP (mmHg): 71 Stage: RECOVERY Duration (min): 3 min : 6 sec HR (bpm): 58 SBP (mmHg): 126 DBP (mmHg): 71 Rest HR: 51 bpm Peak HR: 62 bpm Rest Sys BP: 144 mmHg Peak Sys BP: 142 mmHg Max Pred HR: 141 bpm % Max Pred HR: 44 % Target HR: 120 bpm Max RPP: 8,804 bpm*mmHg Termination Reason: Completed protocol Cardiac Symptoms: Shortness of breath Total Time: 1 min : 0 sec Rest Christine BP: 72 mmHg Peak Christine BP: 70 mmHg Total Dose: 0.4 mg Resting ECG Ectopic atrial bradycardia, cannot r/o septal infarct, age indeterminate. Stress ECG No ST changes. Arrhythmias None. Report Signatures
== END 2019-11-08 08:53 | disposition home or self-care (01) ==
LOC: ANHCARD 08:54
PROVIDERS: PCP Emergency Medicine; Visit Provider Internal Medicine Cardiovascular Disease
DX: R07.89 Other chest pain (principal)
CPT/HCPCS: 78452; 93017; A9502; J2785

== ENCOUNTER → 2020-01-23 13:22 | Outpatient (CLI) | payer MEDICARE, OTHER, SELFPAY ==
--- NOTE | ~2020-01-23 | MM_ITS ---
EXAMINATION: MM screening jere BI w lisette HISTORY: Screening TECHNIQUE: Craniocaudal and mediolateral oblique 3-D tomosynthesis images were obtained and synthetic 2-D images were generated. CAD analysis was submitted and interpreted. COMPARISON: Comparison to multiple prior studies sequentially, with oldest reviewed study dated 04/14. BREAST PARENCHYMAL COMPOSITION: There are scattered areas of fibroglandular density. FINDINGS: There is no evidence of suspicious mass, calcification, or architectural distortion to sugg est malignancy in either breast. There has been no suspicious interval change. IMPRESSION: 1. No mammographic evidence of malignancy. 2. Recommend routine screening mammography in one year. BI-RADS Category 1: Negative Reviewed, dictated and finalized at location A.
== END ==
PROVIDERS: PCP Emergency Medicine
DX: Z12.31 Encounter for screening mammogram for malignant neoplasm of breast (principal)
CPT/HCPCS: 77063; 77067

== ENCOUNTER → 2020-02-01 10:37 | Outpatient (CLI) | payer MEDICARE, OTHER, SELFPAY ==
--- NOTE | ~2020-02-01 | US_ITS ---
EXAMINATION: US abdomen limited DATE: 02/01/2020 10:57 INDICATION: Right upper quadrant abdominal pain. TECHNIQUE: Multiple grayscale and Doppler ultrasound images of the abdomen were obtained. COMPARISON: Ultrasound 09/27/2017 FINDINGS: The visualized portions of the head, body, and tail of the pancreas are normal. The liver i s normal without focal lesion. There is normal flow in main portal vein. The gallbladder is normal in size and contains sludge. No gallstones or gallbladder wall thickening. There was no sonographic Mur phy sign. The common duct is normal and measures 4 mm. IMPRESSION: 1. Gallbladder sludge. No evidence of acute cholecystitis. Reviewed, dictated and finalized at location A.
== END ==
PROVIDERS: Visit Provider Emergency Medicine
DX: R10.9 Unspecified abdominal pain (principal); K83.9 Disease of biliary tract, unspecified
CPT/HCPCS: 76705

== ENCOUNTER 2020-04-02 02:18 | Inpatient (IN) | payer MEDICARE, OTHER, SELFPAY ==
[2020-04-02] VITALS (21 sets, daily range): BP systolic 118–215; BP diastolic 42–92; PULSE 47–62; RESP 16–20; TEMP 36.1–36.6; O2SAT 96–100; BMI 26.9
--- NOTE | ~2020-04-02 | XR_ITS ---
XR chest 1V portable DATE: 04/02/2020 08:27 INDICATION: Chest pain. Hyponatremia. TECHNIQUE: Portable upright AP chest on 04/02/2020 at 0824 hours COMPARISON: 09/09/2019 PA and lateral chest FINDINGS: Bilateral hyperinflation. Bilateral apical capping. No pulmonary infiltrate or consolidation, pleural effusion or pulmonary vascular congestion or pneumo thorax is detected. Heart size is likely within normal range considering magnification associated with AP projection. IMPRESSION: No active disease or significant change since 09/09/2019 Reviewed, dictated and finalized at location B. TOIR SUPERVISOR
--- NOTE | ~2020-04-02 | CT_ITS ---
EXAMINATION: CT brain wo con DATE: 04/02/2020 09:52 INDICATION: Headache. TECHNIQUE: Computed tomography (CT) of the head was performed without intravenous contrast. The mA wa s adjusted according to patient size. Iterative reconstruction technique was employed. The dose-lengt h product was 605.33 mGy-cm. COMPARISON: None FINDINGS: There is no intracranial hemorrhage, acute infarction, or abnormal intracranial mass lesion . The ventricles are normal in size. There is mild mucosal thickening in the paranasal sinuses. The o rbits are normal. The mastoid air cells are normal. IMPRESSION: 1. Normal brain. Reviewed, dictated and finalized at location A. EMIC SUPPORT ASSISTANT IMPRESSION: 1. Normal brain.
--- NOTE | 2020-04-02 02:40 | ECG_ITS ---
Measurements Intervals [place] Rate: 55 P: 70 MN: 175 QRS: -64 QRSD: 138 T: 82 QT: 506 QTc: 484 Interpretive Statements SINUS BRADYCARDIA WITH FIRST DEGREE AV BLOCK LEFT AXIS DEVIATION RIGHT BUNDLE BRANCH BLOCK BASELINE ARTIFACT- I, II, III, AVR, AVL, AVF, V1-V6 ABNORMAL ECG Electronically Signed On 04-02-2020 8:22:46 OIL HEATER OPERATOR by Garrison Stewart D.O.
[2020-04-02] MEDS: cloNIDine HCL 0.1 MG TABLET PO (02:47)
--- NOTE | 2020-04-02 02:49 | ED.GENADULT ---
HPI - General Adult General Chief complaint: Recheck/Abnormal Lab/Rx Stated complaint: blood pressure high Time Seen by Provider: 04/02/20 02:22 History of Present Illness HPI narrative: Patient 79-year-old female who presents emerge department with chief complaint of hypertension. Patient reports that she has a long running history of hypertension she also has history of atrial fibrillation and recently started seeing the geriatric service at [facility]. The patient states that she was recently changed from amiodarone to another antidysrhythmic and her Coreg was reduced to a lower dose. The patient states she has noticed that since this had the changes in her medication that she has had a difficult time controlling her blood pressure and tonight noticed that she had a headache and that her blood pressure was running in the 200s. The patient denies chest pain denies shortness of breath denies change in mental status or focal neurological deficit. Related Data Home Medications Medication Instructions Recorded Confirmed lifitegrast 5 % eye drops in a 1 drop EACH EYE BID 04/16/19 02/04/20 dropperette artifi.tears(hypromellose)(PF) 0.3 1 drop EACH EYE DAILY PRN 04/17/19 02/04/20 % eye drops acetaminophen 500 mg tablet 500 mg PO Q6H PRN 11/18/19 02/04/20 calcium citrate 200 mg 1 tablet PO DAILY 12/20/19 02/04/20 calcium-vitamin D3 6.25 mcg (250 unit) tablet clobetasol 0.05 % scalp solution 1 applic TOPICAL DAILY 12/20/19 02/04/20 triamcinolone acetonide 0.1 % 1 applic DENTAL BID 12/20/19 02/04/20 dental paste cholecalciferol (vitamin D3) 25 1,000 unit PO DAILY cap 01/13/20 02/04/20 mcg (1,000 unit) capsule Allergies Allergy/AdvReac Type Severity Reaction Status Date / Time monosodium glutamate AdvReac Unknown Fatigued Verified 03/11/20 09:27 Review of Systems Review of Systems: Narrative: CONSTITUTIONAL: Denies fever, chills, or sweats. EYES: Denies visual changes, redness, or discharge. ENT: Denies rhinorrhea, congestion, sore throat, or otalgia. CARDIOVASCULAR: Denies chest pain, palpitations, or edema. RESPIRATORY: Denies cough or dyspnea. GASTROINTESTINAL: Denies abdominal pain, nausea, vomiting, or diarrhea. GENITOURINARY: Denies dysuria or hematuria. SKIN: Denies rash or itching. MUSCULOSKELETAL: Denies back pain, joint pain, or myalgia. NEUROLOGIC: Denies headache, numbness, or weakness. PSYCHIATRIC: Denies anxiety or depression. All systems reviewed & are unremarkable except as noted in HPI and below PMFSH Past Medical History Medical History Arthritis Colitis COPD (chronic obstructive pulmonary disease) Due to significant secondhand smoke exposure. Eczema Elevated lipids Headache, migraine Hypertension Paroxysmal atrial fibrillation Paroxysmal atrial fibrillation/atrial flutter. Patient of Dr. Garrison Stewart. Maintained on amiodarone and Xarelto. TIA (transient ischemic attack) At the age of 29, attributed to oral contraceptives. Surgical History Surgical History History of appendectomy History of eyelid surgery History of tonsillectomy History of uterine suspension procedure History of ventral hernia repair Family History Family History Mother Acute myocardial infarction, Onset Age: 93 Family history of liver disease, Onset Age: 93 Family history of chronic obstructive pulmonary disease Family history of renal failure, Onset Age: 93 Family history of elevated blood lipids Family history of kidney disease Family history of congestive heart failure Father Family history of migraine headaches Hypertension Other Cerebrovascular accident Diabetes mellitus Family history of cardiovascular disease Family history of malignant neoplasm Social History Social History (Reviewed 04/02/20 @ 06:18 by Reza Sweeney
[2020-04-02 03:03] LABS: Basophils Percent Auto 0.4 % (0.2-1.2); Eosinophils Absolute Auto 0.1 K/mm3 (0-0.3); Eosinophils Percent Auto 0.7 % (0-4.4); Hemoglobin 13.9 g/dL (12.0-15.0); Immature Granulocyte Absolute 0.04 K/mm3 (0.00-0.031); Immature Granulocyte Percent A 0.4 % (0-0.5); Lymphocytes Absolute Auto 1.89 K/mm3 (0.9-3.2); Lymphocytes Percent Auto 16.8 % (18.3-44.2); Mean Corpuscular HGB Conc 34.8 g/dl (32-36); Mean Corpuscular Hemoglobin 31.4 pg (26-34); Mean Corpuscular Volume 90.5 fl (80-100); Monocytes Absolute Auto 0.9 K/mm3 (0.1-0.6); Monocytes Percent Auto 8.2 % (2.6-8.5); Neutrophils Absolute Auto 8.3 K/mm3 (1.3-6.7); Neutrophils Percent Auto 73.5 % (45.5-73.1); Platelet Count Result 260 k/mm3 (150-375); Red Blood Count 4.42 M/mm3 (4.2-5.4); Red Cell Distribution Width 12.2 % (11.5-14.5); White Blood Count 11.3 K/mm3 (4.5-10.0)
[2020-04-02 04:14] LABS: Add Urine Microscopic? YES; Appearance Urine Clear (Clear); Bilirubin Urine Negative (Negative); Blood Urine 3+ (Negative); Color Urine Colorless (Yellow); Glucose Urine UA 1+ mg/dL (Negative); Ketones Urine Negative (Negative); Leukocyte Esterase Ur Negative LEU/UL (Negative); Mucus Urine Rare /lpf; Nitrate Urine Negative (Negative); Protein Urine 2+ mg/dL (Negative); RBC Urine >75 /hpf (0-2); Squamous Epithelial Cell Urine Rare /hpf (Few); Urobilinogen Urine Negative mg/dL (<2.0); WBC Urine 0-3 /hpf
[2020-04-02 04:37] LABS: Troponin I < 0.012 ng/mL (0.000-0.034)
[2020-04-02 04:38] LABS: Alanine Aminotransferase 41 U/L (4-35); Albumin Level 4.6 g/dL (3.5-5.1); Alkaline Phosphatase 110 U/L (38-126); Anion Gap 9 mmol/L (8-16); Aspartate Amino Transferase 47 U/L (14-36); Bilirubin,Total 0.8 mg/dL (0.2-1.3); Blood Urea Nitrogen 13 mg/dL (7-17); Calcium 9.1 mg/dL (8.4-10.2); Carbon Dioxide 28 mmol/L (22-30); Chloride 82 mmol/L (98-107); Estimated CRCL calculation 53 ml/min; Estimated Glomerular Filt Rate > 60; Glucose 125 mg/dL (65-105); Potassium 4.4 mmol/L (3.4-5.0); Sodium 119 mmol/L (137-145)
--- NOTE | 2020-04-02 05:59 | PM.IMHP ---
H&P: HPI History of Present Illness Date/Time: 04/02/20 05:59 Chief complaint: acute on chronic hyponatremia, hypertension Narrative: This is a 79-year-old female with known past medical history of COPD, hypertension, atrial fibrillation on chronic Xarelto therapy who is well known to our hospitalist service from a recent admission in August for hyponatremia and who returned to the hospital tonight with a throbbing frontal headache. On arrival to the emergency room the patient was found to have elevated blood pressures with systolic blood pressures over 200 mmHg. The patient recently switched her drug department worker to seen mis director and was instructed to cut her Coreg dose in half and switch her amiodarone to flecainide as she states that she has had a low heart rate. She does mention that she wore a Holter monitor for about a month. She was treated in the emergency room with clonidine for her elevated blood pressure. her heart rate was initially in the 50s and now her heart rate is in the mid 40s. Her headache improved as her blood pressure improved. The patient was incidentally found to have a serum sodium level of 119. During her last hospitalization in August it was thought that her low sodium level was secondary to hydrochlorothiazide use, diarrhea, and increased free water intake. The patient is no longer on hydrochlorothiazide and she denies any diarrhea recently. She admits to drinking water frequently. She has no previous history of thyroid disorders, denies any antidepressants, has not had any steroids recently, and has not been on any new diuretic medications. During my encounter with the patient this morning she is only complaining of a frontal headache and her blood pressure seems to have elevated again to 200 systolic. Associated symptoms include nausea. She denies any recent fevers, chills, blurry vision, numbness, tingling, chest pain, shortness of breath, cough, vomiting, abdominal pain, dysuria, hematuria, diarrhea, or rectal bleeding. No other complaints. Review of Systems Review of Systems: All systems reviewed & are unremarkable except as noted in HPI and below PMFSH Past Medical History Medical History Arthritis Colitis COPD (chronic obstructive pulmonary disease) Due to significant secondhand smoke exposure. Eczema Elevated lipids Headache, migraine Hypertension Paroxysmal atrial fibrillation Paroxysmal atrial fibrillation/atrial flutter. Patient of Dr. Garrison Stewart. Maintained on amiodarone and Xarelto. TIA (transient ischemic attack) At the age of 29, attributed to oral contraceptives. Surgical History Surgical History History of appendectomy History of eyelid surgery History of tonsillectomy History of uterine suspension procedure History of ventral hernia repair Family History Family History Mother Acute myocardial infarction, Onset Age: 93 Family history of liver disease, Onset Age: 93 Family history of chronic obstructive pulmonary disease Family history of renal failure, Onset Age: 93 Family history of elevated blood lipids Family history of kidney disease Family history of congestive heart failure Father Family history of migraine headaches Hypertension Other Cerebrovascular accident Diabetes mellitus Family history of cardiovascular disease Family history of malignant neoplasm Social History Social History Social History: The patient is and lives with her earnest in [place]. They have 2 children. 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 She is a lifelong nonsmoker but reports significant secondhand smoke exposure. No alcohol or drug abuse. Her is her surrogate decision maker, and she wishes to be a full code. Smoking status: Never s
--- NOTE | 2020-04-02 06:17 | ADMGEN ---
This patient, Beth Aaron, was admitted to Medical Room 258-. Patient/family oriented to hospital policies and general routines including ID bracelet, bed and alarms, visiting hours, pain management, procedures, bathroom and other care routines, personal items, smoking policy, room service/diet, and visiting hours. Information on how to activate the Rapid Response Team has been discussed. Patient/Family are encouraged to report perceived risks to care and to ask questions if they do not understand what they are told or what they should do.
[2020-04-02] MEDS: SODIUM CHLORIDE 0.9% IV 1,000 ML 100 ML IV CONT ×2 (06:41→16:37)
[2020-04-02] MEDS: hydrALAZINE HCL 20 MG/ML VIAL 10 MG IV PUSH ×2 (06:50→16:43)
--- NOTE | 2020-04-02 07:16 | ECG_ITS ---
Measurements Intervals [place] Rate: 51 P: ME: 0 QRS: -67 QRSD: 134 T: 69 QT: 423 QTc: 392 Interpretive Statements SINUS BRADYCARDIA WITH FIRST DEGREE AV BLOCK ATRIAL PREMATURE COMPLEX INCOMPLETE RIGHT BUNDLE BRANCH BLOCK POOR R WAVE PROGRESSION, ANTERIOR LEADS BASELINE ARTIFACT- V5 ABNORMAL ECG Electronically Signed On 04-02-2020 8:32:21 HEALTH INFORMATICS ADVISOR by Garrison Stewart D.O.
[2020-04-02] MEDS: LOSARTAN POTASSIUM 50 MG TABLET PO (08:41)
[2020-04-02] MEDS: CALCIUM/VITAMIN D 250 MG TABLET 1 TABLET PO (08:41)
[2020-04-02] MEDS: ONDANSETRON INJ 4 MG/2 ML VIAL IV PUSH ×2 (08:41→17:14)
[2020-04-02] MEDS: CHOLECALCIFEROL 1,000 UNITS TABLET 1000 UNITS PO (08:41)
--- NOTE | 2020-04-02 09:37 | PCPTNOTE ---
Attempted PT eval. Pt is going for CT scan. Will try again later today.
[2020-04-02 14:41] LABS: Sodium Urine Random 113 meq/L
--- NOTE | 2020-04-02 15:32 | P.PNCROSS_ITS ---
Event Note Event Note Event Note: For details related to HPI details see H&P. I was called to assess patient after she had sudden onset of chest pain, diaphoresis. 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 Vitals stable ECG was obtained and compared to previous no acute abnormalities Patient is awake, alert Ox3 denies any discomfort currently. Labs reviewed, patient examined at bedside General:Well nourished, well developed, in bed sitting NAD. HEENT:Atraumatic normocephalic, FARIBA, EOM intact, no JVD, no LAP CVS:S1S2 heard, no murmurs, rubes or gallops. Respiratory:CTA b/l Abdomen:Soft, non tender, non distended, no hepatosplenomegaly. BS + MSK:No joint swelling or pain , full ROM SKIN: No rashes. Neuro: Awake, alert Ox3 , ms 5/5, speech intact, CN ii-xii grossly intact. a/p 1-Chest discomfort/HTN: ECG no acute changes, no pain currently.
[2020-04-02] MEDS: RIVAROXABAN 20 MG TABLET PO (16:36)
[2020-04-02 16:39] LABS: Anion Gap 4 mmol/L (8-16); Blood Urea Nitrogen 17 mg/dL (7-17); Calcium 8.5 mg/dL (8.4-10.2); Carbon Dioxide 29 mmol/L (22-30); Chloride 84 mmol/L (98-107); Estimated CRCL calculation 46 ml/min; Estimated Glomerular Filt Rate > 60; Glucose 118 mg/dL (65-105); Potassium 4.7 mmol/L (3.4-5.0); Sodium 117 mmol/L (137-145)
--- NOTE | 2020-04-02 16:40 | ECG_ITS ---
Measurements Intervals [place] Rate: 60 P: 117 VA: 126 QRS: -70 QRSD: 131 T: 71 QT: 482 QTc: 482 Interpretive Statements SINUS RHYTHM WITH FIRST DEGREE AV BLOCK INCOMPLETE RIGHT BUNDLE BRANCH BLOCK BASELINE ARTIFACT- I, II, III, AVL, AVF, V1-V2, V4-V6 ABNORMAL ECG Electronically Signed On 04-02-2020 20:27:13 SENIOR ECOLOGIST by Garrison Stewart D.O.
[2020-04-02 17:06] LABS: Troponin I < 0.012 ng/mL (0.000-0.034)
[2020-04-02] MEDS: ACETAMINOPHEN 500 MG TABLET PO (19:50)
[2020-04-03] VITALS (9 sets, daily range): BP systolic 111–150; BP diastolic 45–55; PULSE 43–59; RESP 18–20; TEMP 36.4–36.6; O2SAT 98–99
[2020-04-03] MEDS: SODIUM CHLORIDE 0.9% IV 1,000 ML 100 ML IV CONT ×2 (05:06→16:35)
[2020-04-03] MEDS: CHOLECALCIFEROL 1,000 UNITS TABLET 1000 UNITS PO (08:47)
[2020-04-03] MEDS: LOSARTAN POTASSIUM 50 MG TABLET PO (08:47)
[2020-04-03] MEDS: CALCIUM/VITAMIN D 250 MG TABLET 1 TABLET PO (08:47)
[2020-04-03 09:08] LABS: Anion Gap 5 mmol/L (8-16); Blood Urea Nitrogen 19 mg/dL (7-17); Calcium 8.6 mg/dL (8.4-10.2); Carbon Dioxide 26 mmol/L (22-30); Chloride 91 mmol/L (98-107); Estimated CRCL calculation 46 ml/min; Estimated Glomerular Filt Rate > 60; Glucose 99 mg/dL (65-105); Phosphorus 3.2 mg/dL (2.5-4.5); Potassium 4.4 mmol/L (3.4-5.0); Sodium 122 mmol/L (137-145)
--- NOTE | 2020-04-03 12:46 | PHAR ---
The patient's home meds of Xiidra (lifitegrast ophthalmic solution) 5% and RETAINE MGD have been verified.
[2020-04-03] MEDS: ACETAMINOPHEN 325 MG TABLET 650 MG PO (13:14)
--- NOTE | 2020-04-03 14:40 | PM.IMPN ---
Progress Note: A&P Assessment and Plan (1) Sinus bradycardia: Code(s): R00.1 - Bradycardia, unspecified Status: Chronic Assessment and Plan: Patient on Flecainide and Carvedilol at home currently holding. Cardiology consult. (2) Headache: Qualifiers: Headache type: unspecified Headache chronicity pattern: acute headache Intractability: not intractable Qualified Code(s): R51.9 - Headache, unspecified Code(s): R51.9 - Headache, unspecified Status: Acute Assessment and Plan: Likely secondary to fluid shifting due to hyponatremia. CT head obtained and reviewed, no acute abnormalities. (3) Uncontrolled hypertension: Code(s): I10 - Essential (primary) hypertension Status: Acute Assessment and Plan: Resolved. Continue to monitor (4) Acute hyponatremia: Code(s): E87.1 - Hypo-osmolality and hyponatremia Status: Acute Assessment and Plan: Trending up. No more that 8 mEq daily (5) Balance problem: Code(s): R26.89 - Other abnormalities of gait and mobility Status: Acute Assessment and Plan: PT/OT once Na corrected. (6) Atrial fibrillation: Code(s): I48.91 - Unspecified atrial fibrillation Status: Acute Assessment and Plan: Rate controlled. (7) Dysphagia: Code(s): R13.10 - Dysphagia, unspecified Status: Acute Assessment and Plan: Continue to monitor. Subjective Date/time seen: 04/03/20 14:40 I feel fine. Review of Systems Review of Systems: Narrative: No new complains, no discomfort other than as per HPI. Constitutional: Comments: no fevers, no chills. Eyes: Comments: no vision changes. ENT: Comments: no ear ache, no nasal discharge or congestion, no throat pain. Cardiovascular: Comments: chest discomfort. Respiratory: Comments: no sob, no cough, no sputum production. Gastrointestinal: Comments: no n/v/abdominal pain Genitourinary: Comments: no pain or burning with urination. Musculoskeletal: Comments: no muscle aches and pains. Integumentary/Breasts: Comments: no rashes. Neurologic: Comments: mild headache. Hematologic/Lymphatic: Comments: no LAP Exam Narrative: Exam Narrative: Lying in bed. Const: General: cooperative, healthy appearing, comfortable, alert, awake and Physically active Nutritional Appearance: average body habitus Limitations: no limitations HENMT: Head: normal to inspection and normocephalic Ears: hearing grossly normal bilaterally General nose exam: Normal external nose present Face and sinus: normal facial exam Mouth: Yes Normal oral and palatal mucosa present Eyes: General: appearance normal, both eyes and all related structures Pupils: Equal, round and reactive pupils present EOM: EOMs intact bilaterally Neck: Neck: normal visual inspection, full ROM, no lymphadenopathy and no JVD Resp: Effort & Inspection: normal respiratory effort Auscultation: clear to auscultation bilaterally Cardio: Jugular venous distension: no JVD Rate: regular rate Rhythm: regular rhythm GI: Inspection: normal to inspection GI Palp: Yes Soft to palpation and Yes No hepatosplenomegaly present Skin: General skin exam: normal color Lesions: no lesions Rashes: no rashes Neuro: General: patient oriented x3 and CN's II-XI intact bilaterally Cranial nerves: Yes CN's II-XII intact bilaterally and Yes Equal, round and reactive pupils present Cognition (Neuro): normal cognition Speech: normal speech Gait exam (Neuro): Normal gait present Motor exam (neuro): 5/5 motor strength present throughout Sensory Exam: normal sensation Extrem: General: normal to inspection and no pedal edema Objective Data Vital Signs Vital Signs: Vital Signs - 24 hr 04/02/20 16:00 04/02/20 16:47 04/02/20 17:25 Temperature 97.8 F Pulse Rate 51 L 58 L 58 L Respiratory Rate 16 Blood Pressure 189/60 H 122/42 L Pulse Oximetry 97 04/02/20 20:00
[2020-04-03] MEDS: RIVAROXABAN 20 MG TABLET PO (16:35)
--- NOTE | 2020-04-03 17:36 | PM.CNCAR ---
Assessment and Plan Additional Plan 79-year-old white female with: History of paroxysmal atrial fibrillation maintaining sinus rhythm albeit sinus bradycardia since being cardioverted by Dr. Stewart previously. She now is under the care of an computer security coordinator at [facility] who for reasons unbeknownst to me has chances shunt her drug to flecainide. Obviously I am at somewhat of a disadvantage to comment on all of this since I did not participate in any of these decisions. Since she is maintaining sinus bradycardia and since this has been her baseline for a couple of years according to Dr. Stewart's notes I have no reason to alter her antiarrhythmic regimen at this time. I am going to reorder her flecainide at 100 mg q.12 hours which is the dose she has been taking since her consultation with her computer security coordinator. At this point I do not have any additional cardiac recommendations to make. It sounds like she intends to follow up with her EP physician at the [facility] regarding her atrial arrhythmias Minh Sandy MD [facility]( for Dr Stewart) History of Present Illness History of Present Illness Consult date/time: 04/03/20 17:36 Consult reason: atrial fibrillation Reason For Visit: acute on chronic hyponatremia, hypertension Narrative: This is a 79-year-old woman who has a history of paroxysmal atrial fibrillation and has been under the care of Dr. Stewart it looks like for a few years. His office notes indicate he saw the patient and anticoagulated for her with Xarelto. She was treated with antiarrhythmic therapy in the form of amiodarone and subsequently electrically cardioverted to sinus rhythm I believe a couple of years ago at least. Their office notes from his office follow-up visits indicating she has been maintaining sinus rhythm although her heart rate has generally been in the 50s but with this bradycardia she has not been symptomatic. The patient for some reason states she decided recently that she would like to transition her specialty care to physicians at [facility] and so she states that she had a visit with an computer security coordinator at that hospital that recommended shifting her from amiodarone to flecainide. She does not recall the reason for the change in antiarrhythmic agents but the change was made and the she has a prescription bottle indicating she has a prescription for 100 mg q.12 hours. She was hospitalized here at [facility] yesterday because of hypertension. She states her blood pressure has been labile and she was concerned about it came to the emergency room and surprisingly in the face of the Coronavirus pandemic was still admitted to the hospital for treatment of this. Her telemetry shows her to be in sinus bradycardia as does her EKG we were consulted to comment on her treatment at this time because of the bradycardia. I pointed out to the patient that she has not had atrial fibrillation recurrence since her cardioversion procedure and for some reason her computer security coordinator whom she would like to continue to follow with would prefers her to be on flecainide. No antiarrhythmic agent has been ordered since she has been in the hospital. When I enter the room to see her this evening she is comfortable eating her dinner and watching television. Review of Systems Constitutional: Constitutional: Reports no additional constitutional complaints Eyes: Eyes: Reports no additional eye complaints ENT: Reports system reviewed and no additional complaints, except as documented Cardiovascular: Cardiovascular: Reports as per HPI Respiratory: Respiratory: Reports no additional respiratory complaints Gastrointestinal: Gastrointestinal: Reports no additional gastrointestinal complaints Musculoskeletal: Musculoskeletal: Reports no additional musculoskeletal complaints Integumentary/Breasts: Skin/Breast: Reports system reviewed and no additional complaints, except as docu Neurologic: Reports sys
[2020-04-03] MEDS: FLECAINIDE ACETATE 100 MG TABLET PO (21:00)
[2020-04-03] MEDS: guaiFENesin 12 HR 600 MG TABCR PO (21:01)
[2020-04-04] VITALS (11 sets, daily range): BP systolic 146–157; BP diastolic 50–57; PULSE 46–68; RESP 16–18; TEMP 36.5–36.7; O2SAT 98–100
[2020-04-04] MEDS: SODIUM CHLORIDE 0.9% IV 1,000 ML 100 ML IV CONT ×3 (01:24→22:50)
[2020-04-04 09:06] LABS: Anion Gap 3 mmol/L (8-16); Blood Urea Nitrogen 16 mg/dL (7-17); Calcium 8.1 mg/dL (8.4-10.2); Carbon Dioxide 29 mmol/L (22-30); Chloride 100 mmol/L (98-107); Estimated CRCL calculation 46 ml/min; Estimated Glomerular Filt Rate > 60; Glucose 90 mg/dL (65-105); Sodium 132 mmol/L (137-145)
[2020-04-04] MEDS: CALCIUM/VITAMIN D 250 MG TABLET 1 TABLET PO (09:39)
[2020-04-04] MEDS: LOSARTAN POTASSIUM 50 MG TABLET PO (09:40)
[2020-04-04] MEDS: FLECAINIDE ACETATE 100 MG TABLET PO ×2 (09:40→20:21)
[2020-04-04] MEDS: guaiFENesin 12 HR 600 MG TABCR PO ×2 (09:40→20:21)
[2020-04-04] MEDS: CHOLECALCIFEROL 1,000 UNITS TABLET 1000 UNITS PO (09:40)
--- NOTE | 2020-04-04 12:22 | PM.IMPN ---
Progress Note: A&P Assessment and Plan (1) Sinus bradycardia: Code(s): R00.1 - Bradycardia, unspecified Status: Chronic Assessment and Plan: Patient is on Carvedilol and Flecainide at home, currently been held. Cardiology consult Telemonitoring (2) COPD (chronic obstructive pulmonary disease): Qualifiers: COPD type: unspecified COPD Qualified Code(s): J44.9 - Chronic obstructive pulmonary disease, unspecified Code(s): J44.9 - Chronic obstructive pulmonary disease, unspecified Status: Chronic Assessment and Plan: Stable Continue to monitor (3) Headache: Qualifiers: Headache type: unspecified Headache chronicity pattern: acute headache Intractability: not intractable Qualified Code(s): R51.9 - Headache, unspecified Code(s): R51.9 - Headache, unspecified Status: Acute Assessment and Plan: Resolved Likely secondary to hyponatremia and fluid shifting. CT no acute abnormalities. (4) Uncontrolled hypertension: Code(s): I10 - Essential (primary) hypertension Status: Acute Assessment and Plan: Resolved Continue home meds. (5) Acute hyponatremia: Code(s): E87.1 - Hypo-osmolality and hyponatremia Status: Acute Assessment and Plan: Trending up. (6) Balance problem: Code(s): R26.89 - Other abnormalities of gait and mobility Status: Acute Assessment and Plan: PT/OT Subjective Date/time seen: 04/04/20 12:22 No complains today. Review of Systems Review of Systems: Narrative: Patient with generalized muscle weakness. Constitutional: Comments: no fevers, no rigors, no chills. Eyes: Comments: no vision changes. ENT: Comments: no ear ache, no nasal congestion, no nasal discharge. Cardiovascular: Comments: no chest pain. Respiratory: Comments: no sob, cough or sputum production. Gastrointestinal: Comments: no n/v/abdominal pain. Musculoskeletal: Comments: no pain or joint swelling. Integumentary/Breasts: Comments: no rashes. Neurologic: Comments: no headache. Hematologic/Lymphatic: Comments: no LAP Exam Narrative: Exam Narrative: Lying in bed. Const: General: cooperative, healthy appearing, comfortable, well developed, alert and awake Nutritional Appearance: average body habitus Orientation/consciousness: patient oriented x3 Limitations: no limitations HENMT: Head: normal to inspection and normocephalic Ears: hearing grossly normal bilaterally General nose exam: Normal external nose present Face and sinus: normal facial exam Mouth: Yes Normal oral and palatal mucosa present Eyes: General: appearance normal, both eyes and all related structures Pupils: Equal, round and reactive pupils present EOM: EOMs intact bilaterally Neck: Neck: normal visual inspection, full ROM and no lymphadenopathy Resp: Effort & Inspection: normal respiratory effort Auscultation: clear to auscultation bilaterally Cardio: Jugular venous distension: no JVD Heart sounds: S1 normal heart sound present and S2 normal heart sound present GI: Inspection: normal to inspection GI Palp: Yes Soft to palpation and Yes No hepatosplenomegaly present Skin: General skin exam: normal color Rashes: no rashes Neuro: General: patient oriented x3 and CN's II-XI intact bilaterally Cranial nerves: Yes CN's II-XII intact bilaterally and Yes Bilaterally intact EOM present Speech: normal speech Gait exam (Neuro): Normal gait present Motor exam (neuro): 5/5 motor strength present throughout Sensory Exam: normal sensation Extrem: General: normal to inspection, full ROM and no pedal edema Objective Data Vital Signs Vital Signs: Vital Signs - 24 hr 04/03/20 14:00 04/03/20 16:00 04/03/20 20:00 Temperature 97.6 F Pulse Rate 57 L 53 L 52 L Respiratory Rate 18 Blood Pressure 111/45 L Pulse Oximetry 99 04/03/20 21:00 04/03/20 21:56 04/04/20 00:00 Temperature 97.6 F Pulse Rate 59
[2020-04-04 13:32] LABS: Anion Gap 3 mmol/L (8-16); Blood Urea Nitrogen 14 mg/dL (7-17); Calcium 8.3 mg/dL (8.4-10.2); Carbon Dioxide 29 mmol/L (22-30); Chloride 101 mmol/L (98-107); Estimated CRCL calculation 46 ml/min; Estimated Glomerular Filt Rate > 60; Glucose 141 mg/dL (65-105); Potassium 3.9 mmol/L (3.4-5.0); Sodium 133 mmol/L (137-145)
[2020-04-04] MEDS: polyethylene glycoL 3350 17 GM POWD.PACK PO (14:34)
[2020-04-04] MEDS: RIVAROXABAN 20 MG TABLET PO (16:30)
[2020-04-05] VITALS (10 sets, daily range): BP systolic 128–150; BP diastolic 52–53; PULSE 50–72; RESP 18; TEMP 36.4–37.1; O2SAT 98
[2020-04-05] MEDS: CALCIUM/VITAMIN D 250 MG TABLET 1 TABLET PO (08:51)
[2020-04-05] MEDS: CHOLECALCIFEROL 1,000 UNITS TABLET 1000 UNITS PO (08:51)
[2020-04-05] MEDS: guaiFENesin 12 HR 600 MG TABCR PO ×2 (08:51→20:44)
[2020-04-05] MEDS: FLECAINIDE ACETATE 100 MG TABLET PO ×2 (08:51→20:44)
[2020-04-05] MEDS: LOSARTAN POTASSIUM 50 MG TABLET PO (08:51)
[2020-04-05 10:57] LABS: Anion Gap 5 mmol/L (8-16); Blood Urea Nitrogen 15 mg/dL (7-17); Calcium 8.2 mg/dL (8.4-10.2); Carbon Dioxide 29 mmol/L (22-30); Chloride 100 mmol/L (98-107); Estimated CRCL calculation 53 ml/min; Estimated Glomerular Filt Rate > 60; Glucose 142 mg/dL (65-105); Potassium 3.6 mmol/L (3.4-5.0); Sodium 134 mmol/L (137-145)
--- NOTE | 2020-04-05 13:44 | PM.IMPN ---
Progress Note: A&P Assessment and Plan (1) Sinus bradycardia: Code(s): R00.1 - Bradycardia, unspecified Status: Chronic Assessment and Plan: On Telemetry Asymptomatic On Carvedilol Appreciate Cardiology note. (2) COPD (chronic obstructive pulmonary disease): Qualifiers: COPD type: unspecified COPD Qualified Code(s): J44.9 - Chronic obstructive pulmonary disease, unspecified Code(s): J44.9 - Chronic obstructive pulmonary disease, unspecified Status: Chronic Assessment and Plan: Stable Continue home meds. (3) Headache: Qualifiers: Headache type: unspecified Headache chronicity pattern: acute headache Intractability: not intractable Qualified Code(s): R51.9 - Headache, unspecified Code(s): R51.9 - Headache, unspecified Status: Acute Assessment and Plan: Resolved. (4) Uncontrolled hypertension: Code(s): I10 - Essential (primary) hypertension Status: Acute Assessment and Plan: Resolved Continue to monitor (5) Acute hyponatremia: Code(s): E87.1 - Hypo-osmolality and hyponatremia Status: Acute Assessment and Plan: Resolved. (6) Balance problem: Code(s): R26.89 - Other abnormalities of gait and mobility Status: Acute Assessment and Plan: PT/OT (7) Weakness: Code(s): R53.1 - Weakness Status: Acute Assessment and Plan: PT/OT (8) Atrial fibrillation: Code(s): I48.91 - Unspecified atrial fibrillation Status: Acute Assessment and Plan: Stable Rate controlled. (9) Dysphagia: Code(s): R13.10 - Dysphagia, unspecified Status: Acute Assessment and Plan: Stable Tolerating po. Subjective Date/time seen: 04/05/20 13:44 I feel fine. Review of Systems Review of Systems: Narrative: Patient states that she feels well. Constitutional: Comments: no fevers, no rigors, no chills. Eyes: Comments: no vision changes. ENT: Comments: no ear ache, no throat pain, no nasal discharge or congestion. Cardiovascular: Comments: no chest pain, no pnd. Respiratory: Comments: no cough, no sputum production. Gastrointestinal: Comments: no n/v/abdominal pain. Musculoskeletal: Comments: no pain or swelling. Integumentary/Breasts: Comments: no rashes. Neurologic: Comments: no sensory motor deficit. Exam Narrative: Exam Narrative: Lying in bed. Const: General: healthy appearing, well developed, alert, awake and Physically active Nutritional Appearance: average body habitus Orientation/consciousness: patient oriented x3 Limitations: no limitations HENMT: Head: normal to inspection and normocephalic Face and sinus: normal facial exam Eyes: General: appearance normal, both eyes and all related structures Pupils: Equal, round and reactive pupils present EOM: EOMs intact bilaterally Neck: Neck: normal visual inspection, full ROM, no lymphadenopathy and supple Resp: Effort & Inspection: normal respiratory effort Auscultation: clear to auscultation bilaterally Cardio: Jugular venous distension: no JVD Rate: regular rate and bradycardic Rhythm: regular rhythm GI: Inspection: normal to inspection GI Palp: Yes Soft to palpation and Yes No hepatosplenomegaly present Skin: General skin exam: normal color Rashes: no rashes Neuro: General: patient oriented x3 Cranial nerves: Yes CN's II-XII intact bilaterally and Yes Bilaterally intact EOM present Speech: normal speech Gait exam (Neuro): Normal gait present Motor exam (neuro): 5/5 motor strength present throughout Extrem: General: normal to inspection, full ROM and no pedal edema Objective Data Vital Signs Vital Signs: Vital Signs - 24 hr 04/04/20 14:00 04/04/20 16:00 04/04/20 20:00 Temperature 97.9 F Pulse Rate 61 58 L 59 L Respiratory Rate 18 Blood Pressure 146/50 H Pulse Oximetry 100 04/04/20 20:21 04/04/20 22:00 04/05/20 00:00 Temperature
[2020-04-05] MEDS: RIVAROXABAN 20 MG TABLET PO (17:56)
[2020-04-05] MEDS: polyethylene glycoL 3350 17 GM POWD.PACK PO (18:52)
--- NOTE | 2020-04-05 23:34 | PC.NURSE ---
Pt states she feels like she is having some chest pressure,monitor show NSR, skin warm and dry resp. even and unlabored. B/P 168/60, P 58, R. 18and spo2 98%. Pt states she has had this before and are aware.
[2020-04-06] VITALS (10 sets, daily range): BP systolic 131–158; BP diastolic 51–56; PULSE 49–97; RESP 16–18; TEMP 36.3–36.4; O2SAT 98–100
[2020-04-06 04:07] LABS: Osmolality, Urine 468 mOsm/kg (50-1200)
[2020-04-06] MEDS: CALCIUM/VITAMIN D 250 MG TABLET 1 TABLET PO (08:29)
[2020-04-06] MEDS: guaiFENesin 12 HR 600 MG TABCR PO ×2 (08:29→20:13)
[2020-04-06] MEDS: CHOLECALCIFEROL 1,000 UNITS TABLET 1000 UNITS PO (08:29)
[2020-04-06] MEDS: LOSARTAN POTASSIUM 50 MG TABLET PO (08:32)
[2020-04-06] MEDS: FLECAINIDE ACETATE 100 MG TABLET PO ×2 (08:38→20:13)
--- NOTE | 2020-04-06 14:03 | PM.PNCARD ---
Progress Note: A&P Assessment and Plan (1) COPD (chronic obstructive pulmonary disease): Qualifiers: COPD type: unspecified COPD Qualified Code(s): J44.9 - Chronic obstructive pulmonary disease, unspecified Code(s): J44.9 - Chronic obstructive pulmonary disease, unspecified Status: Chronic (2) Paroxysmal atrial flutter: Code(s): I48.92 - Unspecified atrial flutter Status: Acute Assessment and Plan: She is followed by EP at [facility]. She was placed on Flecainide. Not on beta josselyn due to bradycardia. On Xarelto. (3) Hypertension: Qualifiers: Hypertension type: unspecified Qualified Code(s): I10 - Essential (primary) hypertension Code(s): I10 - Essential (primary) hypertension Status: Acute Assessment and Plan: Stable. Subjective Date/time seen: 04/06/20 14:03 Denies chest pain or sob or palpitations. Exam Const: General: cooperative, healthy appearing and comfortable Resp: Auscultation: clear to auscultation bilaterally, no crackles, no rales, no rhonchi and no wheezes Cardio: Jugular venous distension: no JVD Rate: regular rate Rhythm: regular rhythm Heart sounds: no murmurs GI: GI Palp: No abdominal tenderness and Yes Soft to palpation Neuro: General: oriented to person, oriented to place and oriented to time Extrem: Right lower extremity: no edema Left lower extremity: no edema Objective Data Vital Signs Vital Signs: Vital Signs - 24 hr 04/05/20 16:00 04/05/20 20:00 04/05/20 20:44 Temperature 98.5 F Pulse Rate 58 L 72 57 L Respiratory Rate 18 Blood Pressure 141/53 H Pulse Oximetry 98 04/06/20 00:00 04/06/20 04:00 04/06/20 08:00 Temperature 97.5 F L Pulse Rate 49 L 52 L 52 L Respiratory Rate 18 Blood Pressure 131/55 L Pulse Oximetry 98 04/06/20 08:38 04/06/20 12:00 Temperature Pulse Rate 55 L 55 L Respiratory Rate Blood Pressure Pulse Oximetry Intake/Output Intake/Output: Intake & Output 04/03/20 04/04/20 04/05/20 04/06/20 23:59 23:59 23:59 23:59 Intake Total 2450 3750 1690 300 Output Total 2650 2800 1850 950 Balance -200 950 -160 -650 Meds/Results Medications: Active Medications Generic Name Dose Route Start Last Admin Trade Name [place] PRN Reason Stop Dose Admin Acetaminophen 650 mg 04/02/20 05:14 04/03/20 13:14 Acetaminophen 325 Mg Tablet PO 650 mg Q4H PRN Administration Mild Pain (1-3) or Fever Acetaminophen 500 mg 04/02/20 07:48 04/02/20 19:50 Acetaminophen 500 Mg Tablet PO 500 mg Q6H PRN Administration Mild Pain (1-3) Albuterol 0 puff 04/02/20 07:48 Albuterol Sulfate (*Sp) Aerosol 1 Puff INHALATION Q4H PRN shortness of breath or wheezing Artificial Tears 1 drop 04/02/20 07:48 Artificial Tears Op Soln 15 Ml Bottle EACH EYE DAILY PRN Dry Eye(S) Calcium Carbonate 1 tablet 04/02/20 09:00 04/06/20 08:29 Calcium/Vitamin D 250 Mg Tablet PO 05/02/20 09:01 1 tablet DAILY MARTIN Administration Flecainide Acetate 100 mg 04/03/20 21:00 04/06/20 08:38 Flecainide Acetate 100 Mg Tablet PO 100 mg Q12HR MARTIN Administration Guaifenesin 600 mg 04/03/20 09:00 04/06/20 08:29 Guaifenesin 12 Hr 600 Mg Tabcr PO 600 mg Q12HR MARTIN Administration Losartan Potassium 50 mg 04/02/20 09:00 04/06/20 08:32 Losartan Potassium 50 Mg Tablet PO 50 mg DAILY MARTIN Administration Nitroglycerin 0.4 mg 04/02/20 07:48 Nitroglycerin Sl 0.4 Mg Tablet SUBLINGUAL Q5M PRN chest pain Ondansetron HCl 4 mg 04/02/20 07:41 04/02/20 17:14 Ondansetron Inj 4 Mg/2 Ml Vial IV PUSH 4 mg Q6H PRN Administration Nausea And Vomiting Polyethylene Glycol 17 gm 04/04/20 14:14 04/05/20 18:52 Polyethylene Glycol 3350 17 Gm Powd.Pack PO 17 gm QAM PRN Administration Constipation Rivaroxaban 20 mg 04/02/20 17:00 04/05/20 17:56 Rivaroxaban 20 Mg Tablet PO 20 mg
--- NOTE | 2020-04-06 15:46 | PM.IMPN ---
Progress Note: A&P Assessment and Plan (1) Sinus bradycardia: Code(s): R00.1 - Bradycardia, unspecified Status: Chronic Assessment and Plan: Asymptomatic As per Cardiology patient is on Flecainide Follows up at [facility] (2) COPD (chronic obstructive pulmonary disease): Qualifiers: COPD type: unspecified COPD Qualified Code(s): J44.9 - Chronic obstructive pulmonary disease, unspecified Code(s): J44.9 - Chronic obstructive pulmonary disease, unspecified Status: Chronic Assessment and Plan: Stable Continue home meds (3) Headache: Qualifiers: Headache type: unspecified Headache chronicity pattern: acute headache Intractability: not intractable Qualified Code(s): R51.9 - Headache, unspecified Code(s): R51.9 - Headache, unspecified Status: Acute Assessment and Plan: Resolved Likely secondary to fluid shift as she was hyponatremic on admission. (4) Uncontrolled hypertension: Code(s): I10 - Essential (primary) hypertension Status: Acute Assessment and Plan: Stable Continue to monitor (5) Acute hyponatremia: Code(s): E87.1 - Hypo-osmolality and hyponatremia Status: Acute Assessment and Plan: Resolved. (6) Balance problem: Code(s): R26.89 - Other abnormalities of gait and mobility Status: Acute Assessment and Plan: PT/OT Suspect decondetioning. (7) Weakness: Code(s): R53.1 - Weakness Status: Acute Assessment and Plan: PT/OT Subjective Date/time seen: 04/06/20 15:46 I'm doing well. Review of Systems Review of Systems: Narrative: States that she is doing well, no complains at the present time. All systems reviewed & are unremarkable except as noted in HPI and below (No complains today.) Exam Narrative: Exam Narrative: Sitting on in chair. Const: General: cooperative, healthy appearing, comfortable, alert, awake and Physically active Nutritional Appearance: average body habitus Orientation/consciousness: patient oriented x3 HENMT: Head: normal to inspection and normocephalic Ears: hearing grossly normal bilaterally General nose exam: Normal external nose present Eyes: General: appearance normal, both eyes and all related structures Pupils: Equal, round and reactive pupils present EOM: EOMs intact bilaterally Neck: Neck: full ROM and no lymphadenopathy Resp: Effort & Inspection: normal respiratory effort Auscultation: clear to auscultation bilaterally Cardio: Jugular venous distension: no JVD Heart sounds: S1 normal heart sound present and S2 normal heart sound present GI: Inspection: normal to inspection GI Palp: Yes Soft to palpation and Yes No hepatosplenomegaly present Skin: General skin exam: normal color Neuro: General: patient oriented x3 Cranial nerves: Yes CN's II-XII intact bilaterally and Yes Bilaterally intact EOM present Speech: normal speech Gait exam (Neuro): Assisted gait required Motor exam (neuro): 5/5 motor strength present throughout Sensory Exam: normal sensation Extrem: General: full ROM and no pedal edema Objective Data Vital Signs Vital Signs: Vital Signs - 24 hr 04/05/20 16:00 04/05/20 20:00 04/05/20 20:44 Temperature 98.5 F Pulse Rate 58 L 72 57 L Respiratory Rate 18 Blood Pressure 141/53 H Pulse Oximetry 98 04/06/20 00:00 04/06/20 04:00 04/06/20 08:00 Temperature 97.5 F L Pulse Rate 49 L 52 L 52 L Respiratory Rate 18 Blood Pressure 131/55 L Pulse Oximetry 98 04/06/20 08:38 04/06/20 12:00 04/06/20 14:00 Temperature 97.3 F L Pulse Rate 55 L 55 L 97 Respiratory Rate 16 Blood Pressure 135/56 L Pulse Oximetry 100 Intake/Output Intake/Output: Intake & Output 04/03/20 04/04/20 04/05/20 04/06/20 23:59 23:59 23:59 23:59 Intake Total 2450 3750 1690 300 Output Total 2650 2800 1850 950 Balance -200 950 -160 -650 Meds/Results Medications: Active Medications
--- NOTE | 2020-04-06 15:55 | PC.NURSE ---
Patient received a phone call today from Glendy Morse nurse of Dr. Higuera. They wanted her Losartan increased. I called the nurse to confirm this. Both the mailroom coordinator and EP need to discuss her medications. Dr. Higuera will call Dr. Stewart.
[2020-04-06] MEDS: RIVAROXABAN 20 MG TABLET PO (16:51)
[2020-04-06] MEDS: DOCUSATE SODIUM 100 MG CAPSULE PO (16:52)
[2020-04-06] MEDS: ACETAMINOPHEN 325 MG TABLET 650 MG PO (16:57)
[2020-04-07] VITALS (11 sets, daily range): BP systolic 128–169; BP diastolic 48–56; PULSE 42–60; RESP 16–20; TEMP 36.2–36.6; O2SAT 97–100
[2020-04-07] MEDS: guaiFENesin 12 HR 600 MG TABCR PO ×2 (08:41→20:49)
[2020-04-07] MEDS: FLECAINIDE ACETATE 100 MG TABLET PO ×2 (08:41→20:49)
[2020-04-07] MEDS: CALCIUM/VITAMIN D 250 MG TABLET 1 TABLET PO (08:43)
[2020-04-07] MEDS: LOSARTAN POTASSIUM 50 MG TABLET PO (08:43)
[2020-04-07] MEDS: CHOLECALCIFEROL 1,000 UNITS TABLET 1000 UNITS PO (08:43)
[2020-04-07] MEDS: hydrALAZINE HCL 25 MG TABLET PO ×3 (08:59→16:40)
--- NOTE | 2020-04-07 09:38 | PM.PNCARD ---
Progress Note: A&P Assessment and Plan (1) COPD (chronic obstructive pulmonary disease): Qualifiers: COPD type: unspecified COPD Qualified Code(s): J44.9 - Chronic obstructive pulmonary disease, unspecified Code(s): J44.9 - Chronic obstructive pulmonary disease, unspecified Status: Chronic (2) Paroxysmal atrial flutter: Code(s): I48.92 - Unspecified atrial flutter Status: Acute Assessment and Plan: She is followed by EP at [facility]. Spoke with her EP yesterday. She is to continue with Flecainide. Not on beta josselyn due to bradycardia. On Xarelto. (3) Hypertension: Qualifiers: Hypertension type: unspecified Qualified Code(s): I10 - Essential (primary) hypertension Code(s): I10 - Essential (primary) hypertension Status: Acute Assessment and Plan: High. Start Hydralazine 25 mg PO TID. Subjective Date/time seen: 04/07/20 09:38 Denies palpitations, chest pain or sob. Exam Const: General: cooperative, healthy appearing and comfortable Resp: Auscultation: clear to auscultation bilaterally, no crackles, no rales, no rhonchi and no wheezes Cardio: Jugular venous distension: no JVD Rate: regular rate Rhythm: regular rhythm Heart sounds: no murmurs GI: GI Palp: No abdominal tenderness and Yes Soft to palpation Neuro: General: oriented to person, oriented to place and oriented to time Extrem: Right lower extremity: no edema Left lower extremity: no edema Objective Data Vital Signs Vital Signs: Vital Signs - 24 hr 04/06/20 12:00 04/06/20 14:00 04/06/20 16:00 Temperature 97.3 F L Pulse Rate 55 L 97 51 L Respiratory Rate 16 Blood Pressure 135/56 L Pulse Oximetry 100 04/06/20 20:00 04/06/20 20:13 04/06/20 22:00 Temperature 97.6 F Pulse Rate 64 58 L 56 L Respiratory Rate 18 Blood Pressure 158/51 H Pulse Oximetry 100 98 04/07/20 00:00 04/07/20 04:12 04/07/20 05:59 Temperature 97.1 F L Pulse Rate 59 L 42 L 53 L Respiratory Rate 18 Blood Pressure 169/53 H Pulse Oximetry 97 04/07/20 08:00 04/07/20 08:41 04/07/20 08:50 Temperature Pulse Rate 45 L 58 L 58 L Respiratory Rate 18 Blood Pressure Pulse Oximetry 98 Intake/Output Intake/Output: Intake & Output 04/04/20 04/05/20 04/06/20 04/07/20 23:59 23:59 23:59 23:59 Intake Total 3750 1690 600 150 Output Total 2800 1850 2250 200 Balance 950 160 -1650 -50 Meds/Results Medications: Active Medications Generic Name Dose Route Start Last Admin Trade Name Freq PRN Reason Stop Dose Admin Acetaminophen 650 mg 04/02/20 05:14 04/06/20 16:57 Acetaminophen 325 Mg Tablet PO 650 mg Q4H PRN Administration Mild Pain (1-3) or Fever Albuterol 0 puff 04/02/20 07:48 Albuterol Sulfate (*Sp) Aerosol 1 Puff INHALATION Q4H PRN shortness of breath or wheezing Artificial Tears 1 drop 04/02/20 07:48 Artificial Tears Op Soln 15 Ml Bottle EACH EYE DAILY PRN Dry Eye(S) Calcium Carbonate 1 tablet 04/02/20 09:00 04/07/20 08:43 Calcium/Vitamin D 250 Mg Tablet PO 05/02/20 09:01 1 tablet DAILY MARTIN Administration Docusate Sodium 100 mg 04/06/20 16:06 04/06/20 16:52 Docusate Sodium 100 Mg Capsule PO 100 mg Q12H PRN Administration Constipation Flecainide Acetate 100 mg 04/03/20 21:00 04/07/20 08:41 Flecainide Acetate 100 Mg Tablet PO 100 mg Q12HR MARTIN Administration Guaifenesin 600 mg 04/03/20 09:00 04/07/20 08:41 Guaifenesin 12 Hr 600 Mg Tabcr PO 600 mg Q12HR MARTIN Administration Hydralazine HCl 25 mg 04/07/20 09:00 04/07/20 08:59 Hydralazine Hcl 25 Mg Tablet PO 25 mg TID MARTIN Administration Losartan Potassium 50 mg 04/02/20 09:00 04/07/20 08:43 Losartan Potassium 50 Mg Tablet PO 50 mg DAILY MARTIN Administration Nitroglycerin 0.4 mg 04/02/20 07:48 Nitroglycerin Sl 0.4 Mg Tablet SUBLINGUAL Q5M PRN chest pain Ondansetron HC
[2020-04-07] MEDS: BISACODYL 10 MG SUPPOSITORY RECTAL (10:50)
--- NOTE | 2020-04-07 14:39 | PCDIET ---
Weekly nutritional screen. Patient is tolerating current diet with adequate intake. No weight loss reported. No nutritional needs at this time.
[2020-04-07] MEDS: RIVAROXABAN 20 MG TABLET PO (16:40)
--- NOTE | 2020-04-07 18:38 | PM.IMPN ---
Progress Note: A&P Assessment and Plan (1) Sinus bradycardia: Code(s): R00.1 - Bradycardia, unspecified Status: Chronic Assessment and Plan: Asymptomatic As per Cardiology patient is on Flecainide Follows up at [facility] (2) COPD (chronic obstructive pulmonary disease): Qualifiers: COPD type: unspecified COPD Qualified Code(s): J44.9 - Chronic obstructive pulmonary disease, unspecified Code(s): J44.9 - Chronic obstructive pulmonary disease, unspecified Status: Chronic Assessment and Plan: Stable Continue home meds (3) Headache: Qualifiers: Headache type: unspecified Headache chronicity pattern: acute headache Intractability: not intractable Qualified Code(s): R51.9 - Headache, unspecified Code(s): R51.9 - Headache, unspecified Status: Acute Assessment and Plan: Resolved Likely secondary to fluid shift as she was hyponatremic on admission. (4) Uncontrolled hypertension: Code(s): I10 - Essential (primary) hypertension Status: Acute Assessment and Plan: cardiology started hydralazine TID, will follow. (5) Acute hyponatremia: Code(s): E87.1 - Hypo-osmolality and hyponatremia Status: Acute Assessment and Plan: Resolved. Sodium 134 (6) Balance problem: Code(s): R26.89 - Other abnormalities of gait and mobility Status: Acute Assessment and Plan: Continue PT/OT (7) Weakness: Code(s): R53.1 - Weakness Status: Acute Assessment and Plan: Did well with PT/OT, plan for home (8) Constipation: Qualifiers: Constipation type: unspecified constipation type Qualified Code(s): K59.00 - Constipation, unspecified Code(s): K59.00 - Constipation, unspecified Status: Acute Assessment and Plan: improved with dulcolax today 04/07. PRN enema is available (9) Hyponatremia: Code(s): E87.1 - Hypo-osmolality and hyponatremia Status: Acute Assessment and Plan: 117 admission, resolved. Additional Plan Disposition: Patient did well with physical therapy, plan for discharge home in a.m.. Hydralazine was started today. Subjective Date/time seen: 04/07/20 18:38 Patient examined. We had extensive discussion about medical conditions. Cardiology discussed with EP physician yesterday from [facility], plan to continue flecainide, no beta-josselyn for bradycardia. Patient has hypertension and is being started on hydralazine t.i.d. today by cardiology. She complained of constipation, giving Dulcolax and will give p.r.n. tap water enema if no improvement. Patient denies fever, chills, nausea, vomiting, diarrhea, lightheadedness, dizziness, chest pain. Plan to watch patient blood pressure as we started hydralazine today, plan for discharge in a.m. if blood pressure stable. Review of Systems Review of Systems: All systems reviewed & are unremarkable except as noted in HPI and below Exam Narrative: Exam Narrative: - GENERAL: Pleasant older woman in no acute distress - EYES: EOMI. Anicteric. - HENT: Moist mucous membranes. No scleral icterus. - LUNGS: Clear to auscultation bilaterally, no wheezing, rhonchi, or rales. - CARDIOVASCULAR: Regular rate and rhythm. No murmur. No JVD. - ABDOMEN: Soft, non-tender and non-distended. No palpable masses. - EXTREMITIES: No pedal edema. Peripheral pulses 2+. Non-tender. - NEUROLOGIC: No focal neurological deficits. CN II-XII grossly intact. - PSYCHIATRIC: Awake, Alert and oriented x 3. Appropriate mood and affect. - SKIN: No rashes or lesions. Warm. Objective Data Vital Signs Vital Signs: Vital Signs - 24 hr 04/06/20 20:00 04/06/20 20:13 04/06/20 22:00 Temperature 36.4 C Pulse Rate 64 58 L 56 L Respiratory Rate 18 Blood Pressure 158/51 H Pulse Oximetry 100 98 04/07/20 00:00 04/07/20 04:12 04/07/20 05:59 Temperature 36.2 C L Pulse Rate 59 L 42 L 53 L Respiratory Rate 18 Blood Pressure
[2020-04-08] VITALS: PULSE 55
[2020-04-08 04:00] VITALS: PULSE 52
[2020-04-08 04:51] VITALS: BP 127/51; PULSE 55; RESP 16; TEMP 36.3; O2SAT 98
[2020-04-08 08:00] VITALS: PULSE 58
[2020-04-08 08:17] VITALS: PULSE 63
[2020-04-08] MEDS: CALCIUM/VITAMIN D 250 MG TABLET 1 TABLET PO (08:17)
[2020-04-08] MEDS: FLECAINIDE ACETATE 100 MG TABLET PO (08:17)
[2020-04-08] MEDS: CHOLECALCIFEROL 1,000 UNITS TABLET 1000 UNITS PO (08:17)
[2020-04-08] MEDS: hydrALAZINE HCL 25 MG TABLET PO (08:18)
[2020-04-08] MEDS: guaiFENesin 12 HR 600 MG TABCR PO (08:18)
[2020-04-08] MEDS: LOSARTAN POTASSIUM 50 MG TABLET PO (08:18)
--- NOTE | 2020-04-08 09:14 | PM.DS ---
DS: Admitting Diagnosis Admitting Diagnosis Admitting Diagnosis: acute on chronic hyponatremia, hypertension DS: Discharge Diagnosis Discharge Diagnosis (1) Sinus bradycardia: Code(s): R00.1 - Bradycardia, unspecified Status: Chronic Assessment and Plan: Asymptomatic As per Cardiology patient is on Flecainide Follows up at [facility] and with Dr. Stewart Cardiology (2) COPD (chronic obstructive pulmonary disease): Qualifiers: COPD type: unspecified COPD Qualified Code(s): J44.9 - Chronic obstructive pulmonary disease, unspecified Code(s): J44.9 - Chronic obstructive pulmonary disease, unspecified Status: Chronic Assessment and Plan: Stable Continue home meds (3) Headache: Qualifiers: Headache chronicity pattern: acute headache Headache type: unspecified Intractability: not intractable Qualified Code(s): R51.9 - Headache, unspecified Code(s): R51.9 - Headache, unspecified Status: Acute Assessment and Plan: Resolved Likely secondary to fluid shift as she was hyponatremic on admission. (4) Uncontrolled hypertension: Code(s): I10 - Essential (primary) hypertension Status: Acute Assessment and Plan: Cardiology started hydralazine TID, will continue. (5) Acute hyponatremia: Code(s): E87.1 - Hypo-osmolality and hyponatremia Status: Acute Assessment and Plan: Resolved. Sodium 134 (6) Balance problem: Code(s): R26.89 - Other abnormalities of gait and mobility Status: Acute Assessment and Plan: Continue PT/OT (7) Weakness: Code(s): R53.1 - Weakness Status: Acute Assessment and Plan: Did well with PT/OT, plan for home (8) Constipation: Qualifiers: Constipation type: unspecified constipation type Qualified Code(s): K59.00 - Constipation, unspecified Code(s): K59.00 - Constipation, unspecified Status: Acute Assessment and Plan: Resolved with dulcolax (9) Hyponatremia: Code(s): E87.1 - Hypo-osmolality and hyponatremia Status: Acute Assessment and Plan: 117 admission, resolved. Up to 134. DS: Summary Hospital Course Reason for hospitalization: Hypernatremia, bradycardia Hospital Course: Patient is a 79-year-old woman with past medical history COPD, hypertension, atrial fibrillation on Xarelto was recently admitted for hyponatremia in August who presents again to the hospital with headache and hypertension. 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 Her amiodarone was switched to flecainide. Patient has been having persistent bradycardia and Coreg previously was cut in half, during this admission was stopped altogether. For her blood pressure she was started on hydralazine t.i.d. by cardiology Dr. Stewart. Her hyponatremia has been attributed to hydrochlorothiazide use, increased free water intake primary polydipsia. Sodium increased from 117 on admission to 134 on discharge. Patient advised to limit her free water intake 1.5 L per day. Medication changes: Stopped Coreg and started hydralazine. Patient will follow-up with her press leader Dr. Stewart. Patient works well physical therapy back to baseline independent. Patient will also follow PCP in 1 week. Patient understands and agrees with plan. Patient's vitals stable, labs stable, patient is stable for discharge. Status at Discharge Functional status at discharge: independent ambulation Overall status at discharge: patient is back to baseline Time Spent with Patient Time attestation: Total time spent providing and/or coordinating discharge services: 35 Time spent: Greater than 30 minutes Exam Narrative: Exam Narrative: - GENERAL: Pleasant older woman in no acute distress - EYES: EOMI. Anicteric. - HENT: Moist mucous membranes. No scleral icterus. - LUNGS: Clear to auscultation bilaterally, no wheezing, rhonchi, or rales. - CA
== END 2020-04-08 10:20 | disposition home or self-care (01) | DRG 641 ==
LOC: ANHED 02:44 → ANH2MED 05:58
PROVIDERS: Internal Medicine; Admitting Provider Family Medicine; Emergency Provider Emergency Medicine; PCP Emergency Medicine; Visit Provider Student in an Organized Health Care Education/Training Program
DX: E87.1 Hypo-osmolality and hyponatremia (principal); I48.92 Unspecified atrial flutter; R00.1 Bradycardia, unspecified; I48.0 Paroxysmal atrial fibrillation; I10 Essential (primary) hypertension; J44.9 Chronic obstructive pulmonary disease, unspecified; R51.9 Headache, unspecified; R07.89 Other chest pain; R26.89 Other abnormalities of gait and mobility; R13.10 Dysphagia, unspecified; K59.00 Constipation, unspecified; R53.1 Weakness; Z79.01 Long term (current) use of anticoagulants; Z79.899 Other long term (current) drug therapy; Z86.73 Personal history of transient ischemic attack (TIA), and cerebral infarction without residual deficits
CPT/HCPCS: 36415; 70450; 71045; 80048; 80053; 81001; 83735; 83935; 84100; 84300; 84484; 85025; 93005; 96361; 96374; 96375; 97110; 97116; 97161; 97165; 97535; 99285; A9270; G0378; J0360; J2405; J7030

== ENCOUNTER → 2020-05-12 07:29 | Outpatient (CLI) | payer MEDICARE, OTHER, SELFPAY ==
--- NOTE | ~2020-05-12 | XR_ITS ---
EXAMINATION: XR abdomen/kub 1V EXAM DATE: 05/12/2020 08:16 INDICATION: Acute back pain, nausea and vomiting. TECHNIQUE: Frontal projection(s) of the abdomen for interpretation. Comparison is made to prior exami nation from 08/20/2015. FINDINGS: There is moderate amount of colonic stool and gas. No small bowel dilation, nonobstructiv e bowel gas pattern. There are no suspicious calcifications identified. There is no organomegaly suspected. Mild to moderate bony degenerative changes. Lung bases are clear. IMPRESSION: Moderate amount of colonic stool. Reviewed, dictated and finalized at location B. L[facility]ER
== END ==
DX: M54.5 Low back pain (principal); R11.2 Nausea with vomiting, unspecified
CPT/HCPCS: 74018

== ENCOUNTER → 2020-07-30 13:47 | Outpatient (CLI) | payer MEDICARE, OTHER, SELFPAY ==
--- NOTE | ~2020-07-30 | US_ITS ---
EXAMINATION: US retroperitoneal comp DATE: 07/30/2020 14:08 INDICATION: Microscopic hematuria. TECHNIQUE: Multiple ultrasound grayscale images of the kidneys were obtained. COMPARISON: CT dated 09/07/2019 FINDINGS: The right kidney measures 7.6 x 4.5 x 5.4 cm. The left kidney measures 9.4 x 5.0 x 5.2 cm. The kidney s demonstrate normal echogenicity. There is no hydronephrosis in either kidney. No stones identified . The bladder is normal. IMPRESSION: 1. The right kidney is horizontally oriented and caudally positioned in the right lower quadrant on p rior CT which is difficult to appreciate on the provided ultrasound images. Otherwise normal kidneys without hydronephrosis. Reviewed, dictated and finalized at location B. IMPRESSION: 1. The right kidney is horizontally oriented and caudally positioned in the rig ht lower quadrant on prior CT which is difficult to appreciate on the provided ultrasound images. Otherwise normal kidneys without hydronephrosis.
== END ==
DX: R31.29 Other microscopic hematuria (principal)
CPT/HCPCS: 76770

== ENCOUNTER 2020-10-28 16:27 | Emergency (ER) | payer MEDICARE, OTHER, SELFPAY ==
--- NOTE | 2020-10-28 16:33 | ECG_ITS ---
Measurements Intervals [place] Rate: 59 P: PA: 0 QRS: -78 QRSD: 135 T: 81 QT: 352 QTc: 350 Interpretive Statements SINUS RHYTHM WITH FIRST DEGREE AV BLOCK ATRIAL PREMATURE COMPLEXES INCOMPLETE RIGHT BUNDLE BRANCH BLOCK BORDERLINE ST-T WAVE ABNORMALITY- HIGH LATERAL LEADS BASELINE ARTIFACT- I, II, III, AVR, AVL, AVF, V1-V6 ABNORMAL ECG Electronically Signed On 10-28-2020 19:37:04 CDT by Garrison Stewart D.O.
[2020-10-28 16:45] VITALS: BP 180/70; PULSE 59; RESP 18; TEMP 36.3; O2SAT 98
[2020-10-28 18:38] VITALS: BP 206/89; PULSE 59; RESP 18; O2SAT 100
[2020-10-28 19:35] VITALS: BP 194/76; PULSE 55; RESP 18; O2SAT 100
[2020-10-28] MEDS: hydrALAZINE HCL 20 MG/ML VIAL 10 MG IV PUSH (19:36)
[2020-10-28 19:37] LABS: Basophils Percent Auto 0.3 % (0.2-1.2); Eosinophils Absolute Auto 0.1 K/mm3 (0-0.3); Eosinophils Percent Auto 0.6 % (0-4.4); Hematocrit 42.4 % (37.0-47.0); Hemoglobin 14.1 g/dL (12.0-15.0); Immature Granulocyte Absolute 0.04 K/mm3 (0.00-0.031); Immature Granulocyte Percent A 0.5 % (0-0.5); Lymphocytes Absolute Auto 1.53 K/mm3 (0.9-3.2); Lymphocytes Percent Auto 17.6 % (18.3-44.2); Mean Corpuscular HGB Conc 33.3 g/dl (32-36); Mean Corpuscular Hemoglobin 31.8 pg (26-34); Mean Corpuscular Volume 95.7 fl (80-100); Mean Platelet Volume 10.3 fl (7.4-10.4); Monocytes Absolute Auto 0.8 K/mm3 (0.1-0.6); Monocytes Percent Auto 8.9 % (2.6-8.5); Neutrophils Absolute Auto 6.3 K/mm3 (1.3-6.7); Neutrophils Percent Auto 72.1 % (45.5-73.1); Platelet Count Result 252 k/mm3 (150-375); Red Blood Count 4.43 M/mm3 (4.2-5.4); Red Cell Distribution Width 13.1 % (11.5-14.5); White Blood Count 8.7 K/mm3 (4.5-10.0)
[2020-10-28 20:00] LABS: Alanine Aminotransferase 16 U/L (4-35); Albumin Level 4.6 g/dL (3.5-5.1); Alkaline Phosphatase 110 U/L (38-126); Anion Gap 9 mmol/L (8-16); Aspartate Amino Transferase 30 U/L (14-36); Bilirubin,Total 0.5 mg/dL (0.2-1.3); Blood Urea Nitrogen 20 mg/dL (7-17); Calcium 9.8 mg/dL (8.4-10.2); Carbon Dioxide 28 mmol/L (22-30); Chloride 101 mmol/L (98-107); Estimated CRCL calculation 41 ml/min; Estimated Glomerular Filt Rate 60; Glucose 109 mg/dL (65-105); Potassium 4.3 mmol/L (3.4-5.0); Sodium 138 mmol/L (137-145)
[2020-10-28 20:04] VITALS: BP 140/63; PULSE 63; RESP 16; O2SAT 99
[2020-10-28 20:11] LABS: Troponin I 0.029 ng/mL (0.000-0.034)
--- NOTE | 2020-10-28 20:19 | ED.GENADULT ---
HPI - General Adult General Chief complaint: Recheck/Abnormal Lab/Rx Stated complaint: High Blood Pressure Time Seen by Provider: 10/28/20 18:11 Source: patient and family Mode of arrival: ambulatory Limitations: no limitations History of Present Illness HPI narrative: 80-year-old with a history of hypertension, A. fib here with complaints of elevated blood pressure. Patient states that she was doing some yard work cleaning the windows came home started to notice pounding sensation in her neck and in the ears checked her blood pressure one was found to be high. She denies any chest pain, shortness of breath or headache. She states that she checks her blood pressure at least 2 or 3 times a day. She states patient been taking medication as prescribed. Onset (ago): hour(s) (3) Exacerbating factors: none Associated symptoms: denies other symptoms Related Data Home Medications Medication Instructions Recorded Confirmed lifitegrast 5 % eye drops in a 1 drop EACH EYE BID 04/16/19 04/02/20 dropperette artifi.tears(hypromellose)(PF) 0.3 1 drop EACH EYE DAILY PRN 04/17/19 04/02/20 % eye drops acetaminophen 500 mg tablet 500 mg PO Q6H PRN 11/18/19 04/02/20 calcium citrate 200 mg 200 tablet PO DAILY 12/20/19 04/02/20 calcium-vitamin D3 6.25 mcg (250 unit) tablet clobetasol 0.05 % scalp solution 1 applic TOPICAL DAILY 12/20/19 04/02/20 triamcinolone acetonide 0.1 % 1 applic DENTAL BID PRN 12/20/19 04/02/20 dental paste cholecalciferol (vitamin D3) 25 1,000 unit PO DAILY cap 01/13/20 04/02/20 mcg (1,000 unit) capsule Xarelto 20 mg PO DAILY 04/02/20 04/02/20 albuterol sulfate [ProAir HFA] 90 mcg INHALATION Q4-5H PRN 04/02/20 04/02/20 losartan 50 mg PO DAILY 04/02/20 04/02/20 flecainide 100 mg PO BID 04/03/20 04/03/20 carvedilol 10/28/20 omeprazole 10/28/20 Allergies Allergy/AdvReac Type Severity Reaction Status Date / Time monosodium glutamate AdvReac Unknown Fatigued Verified 10/28/20 18:30 Review of Systems Review of Systems: All systems reviewed & are unremarkable except as noted in HPI and below Constitutional: Constitutional: Reports no additional constitutional complaints Eyes: Eyes: Reports no additional eye complaints ENT: Reports system reviewed and no additional complaints, except as documented Cardiovascular: Cardiovascular: Reports no additional cardiovascular complaints Respiratory: Respiratory: Reports no additional respiratory complaints Gastrointestinal: Gastrointestinal: Reports no additional gastrointestinal complaints Musculoskeletal: Musculoskeletal: Reports no additional musculoskeletal complaints Neurologic: Reports system reviewed and no additional complaints, except as documented [facility] Past Medical History Medical History Arthritis Colitis COPD (chronic obstructive pulmonary disease) Due to significant secondhand smoke exposure. Eczema Elevated lipids Headache, migraine Hypertension Paroxysmal atrial fibrillation Paroxysmal atrial fibrillation/atrial flutter. Patient of Dr. Garrison Stewart. Maintained on amiodarone and Xarelto. TIA (transient ischemic attack) At the age of 29, attributed to oral contraceptives. Surgical History Surgical History History of appendectomy History of eyelid surgery History of tonsillectomy History of uterine suspension procedure History of ventral hernia repair Family History Family History Mother Family history of kidney disease Family history of elevated blood lipids Acute myocardial infarction, Onset Age: 93 Family history of liver disease, Onset Age: 93 Family history of congestive heart failure Family history of chronic obstructive pulmonary disease Family history of renal failure, Onset Age: 93 Father Family history of migraine headaches Hypertension Grandparent
[2020-10-28 20:45] VITALS: BP 136/57; PULSE 68; RESP 16; O2SAT 100
== END 2020-10-28 20:45 | disposition home or self-care (01) ==
PROVIDERS: Emergency Provider Family Medicine
DX: I10 Essential (primary) hypertension (principal); I48.0 Paroxysmal atrial fibrillation; Z79.01 Long term (current) use of anticoagulants; J44.9 Chronic obstructive pulmonary disease, unspecified; Z77.22 Contact with and (suspected) exposure to environmental tobacco smoke (acute) (chronic); Z86.73 Personal history of transient ischemic attack (TIA), and cerebral infarction without residual deficits; I44.0 Atrioventricular block, first degree; I49.1 Atrial premature depolarization; I45.10 Unspecified right bundle-branch block
CPT/HCPCS: 36415; 80053; 84484; 85025; 93005; 96374; 99284; J0360

== ENCOUNTER 2021-01-02 20:02 | Inpatient (IN) | payer MEDICARE, OTHER, SELFPAY ==
[2021-01-02] VITALS (10 sets, daily range): BP systolic 187–204; BP diastolic 75–76; PULSE 59–64; RESP 15–22; TEMP 36.7; O2SAT 98–100
--- NOTE | ~2021-01-02 | XR_ITS ---
EXAMINATION: XR chest 2V DATE: 01/02/2021 20:55 INDICATION: Weakness. Edema. TECHNIQUE: Frontal and lateral views of the chest were obtained on 3 radiographs. COMPARISON: Chest single view 04/02/2020, CT abdomen and pelvis 09/07/2019 FINDINGS: There is mild atelectasis in lingula. No pleural effusion or pneumothorax. The heart size i s normal. IMPRESSION: 1. Mild atelectasis in lingula. Reviewed, dictated and finalized at location A.
--- NOTE | 2021-01-02 20:37 | ED.WEAKNESS ---
HPI - Weakness General Chief complaint: Weakness Stated complaint: weakness/ ams Time Seen by Provider: 01/02/21 20:04 Source: patient and family Mode of arrival: EMS Limitations: other (poor historian) History of Present Illness HPI Narrative: This is a 80 year old female that presents to the ER for generalized weakness. She was seen at [facility] ER earlier today and diagnosed with a UTI and started on Keflex. Presents tonight for increased weakness. Reports urinary frequency and nausea. Reports she feels like she cannot fully empty her bladder. Also reports her blood pressure has been elevated. She does not think that she took her blood pressure medication today. Denies fever, chest pain, shortness of breath, abdominal pain, or vomiting. Related Data Home Medications Medication Instructions Recorded Confirmed lifitegrast 5 % eye drops in a 1 drop EACH EYE BID 04/16/19 04/02/20 dropperette artifi.tears(hypromellose)(PF) 0.3 1 drop EACH EYE DAILY PRN 04/17/19 04/02/20 % eye drops acetaminophen 500 mg tablet 500 mg PO Q6H PRN 11/18/19 04/02/20 calcium citrate 200 mg 200 tablet PO DAILY 12/20/19 04/02/20 calcium-vitamin D3 6.25 mcg (250 unit) tablet clobetasol 0.05 % scalp solution 1 applic TOPICAL DAILY 12/20/19 04/02/20 triamcinolone acetonide 0.1 % 1 applic DENTAL BID PRN 12/20/19 04/02/20 dental paste cholecalciferol (vitamin D3) 25 1,000 unit PO DAILY cap 01/13/20 04/02/20 mcg (1,000 unit) capsule Xarelto 20 mg PO DAILY 04/02/20 04/02/20 albuterol sulfate [ProAir HFA] 90 mcg INHALATION Q4-5H PRN 04/02/20 04/02/20 losartan 50 mg PO DAILY 04/02/20 04/02/20 flecainide 100 mg PO BID 04/03/20 04/03/20 carvedilol 10/28/20 omeprazole 10/28/20 Allergies Allergy/AdvReac Type Severity Reaction Status Date / Time monosodium glutamate AdvReac Unknown Fatigued Verified 10/28/20 18:30 Review of Systems Review of Systems: CONSTITUTIONAL: Denies fever CARDIOVASCULAR: Denies chest pain RESPIRATORY: Denies dyspnea. GASTROINTESTINAL: Reports nausea. Denies abdominal pain, vomiting GENITOURINARY: Reports dysuria and hematuria. NEUROLOGIC: Reports generalized weakness. All systems reviewed & are unremarkable except as noted in HPI and below PMFSH Past Medical History Medical History Arthritis Colitis COPD (chronic obstructive pulmonary disease) Due to significant secondhand smoke exposure. Eczema Elevated lipids Headache, migraine Hypertension Paroxysmal atrial fibrillation Paroxysmal atrial fibrillation/atrial flutter. Patient of Dr. Garrison Stewart. Maintained on amiodarone and Xarelto. TIA (transient ischemic attack) At the age of 29, attributed to oral contraceptives. Surgical History Surgical History History of appendectomy History of eyelid surgery History of tonsillectomy History of uterine suspension procedure History of ventral hernia repair Family History Family History Mother Family history of kidney disease Family history of elevated blood lipids Acute myocardial infarction, Onset Age: 93 Family history of liver disease, Onset Age: 93 Family history of congestive heart failure Family history of chronic obstructive pulmonary disease Family history of renal failure, Onset Age: 93 Father Family history of migraine headaches Hypertension Grandparent Cerebrovascular accident Other Family history of cardiovascular disease Family history of malignant neoplasm Social History Social History Social History: The patient is and lives with her earnest in [place]. They have 2 children. 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 She is a lifelong nonsmoker but reports significant secondhand smoke exposure. No alcohol or drug abuse. Her is her surrogate decision maker,
[2021-01-02 20:40] LABS: Basophils Percent Auto 0.2 % (0.2-1.2); Eosinophils Absolute Auto 0.1 K/mm3 (0-0.3); Eosinophils Percent Auto 0.7 % (0-4.4); Hematocrit 37.6 % (37.0-47.0); Hemoglobin 13.3 g/dL (12.0-15.0); Immature Granulocyte Absolute 0.06 K/mm3 (0.00-0.031); Immature Granulocyte Percent A 0.5 % (0-0.5); Lymphocytes Absolute Auto 1.43 K/mm3 (0.9-3.2); Lymphocytes Percent Auto 12.7 % (18.3-44.2); Mean Corpuscular HGB Conc 35.4 g/dl (32-36); Mean Corpuscular Hemoglobin 31.7 pg (26-34); Mean Corpuscular Volume 89.7 fl (80-100); Mean Platelet Volume 8.4 fl (7.4-10.4); Monocytes Absolute Auto 0.9 K/mm3 (0.1-0.6); Monocytes Percent Auto 7.9 % (2.6-8.5); Neutrophils Absolute Auto 8.7 K/mm3 (1.3-6.7); Platelet Count Result 255 k/mm3 (150-375); Red Blood Count 4.19 M/mm3 (4.2-5.4); Red Cell Distribution Width 11.8 % (11.5-14.5); White Blood Count 11.2 K/mm3 (4.5-10.0)
[2021-01-02 20:52] LABS: INR 1.1; Prothrombin Time 13.7 Seconds (11.1-14.7)
[2021-01-02 20:53] LABS: Partial Thromboplastin Time 31.1 SECONDS (22.3-36.8)
[2021-01-02 20:57] LABS: Add Urine Microscopic? YES; Appearance Urine Clear (Clear); Bacteria Urine Trace /hpf; Bilirubin Urine Negative (Negative); Blood Urine 2+ (Negative); Color Urine Colorless (Yellow); Glucose Urine UA 2+ mg/dL (Negative); Ketones Urine Negative (Negative); Leukocyte Esterase Ur Negative LEU/UL (Negative); Nitrate Urine Negative (Negative); Protein Urine Negative (Negative); RBC Urine 21-50 /hpf (0-2); Specific Grav Ur 1.006 (1.001-1.035); Urobilinogen Urine Negative mg/dL (<2.0)
[2021-01-02 21:05] LABS: Lactic Acid Reflex 0.8 mmol/L (0.7-2.1)
[2021-01-02 21:21] LABS: NT Pro B Type Natriuretic Pept 1130 pg/mL (5-100)
--- NOTE | 2021-01-02 21:26 | PC.NURSE ---
Dr aware of pt current BP- no orders at this time.
[2021-01-02 21:45] LABS: Alanine Aminotransferase 18 U/L (4-35); Albumin Level 4.6 g/dL (3.5-5.1); Alkaline Phosphatase 110 U/L (38-126); Anion Gap 10 mmol/L (8-16); Aspartate Amino Transferase 32 U/L (14-36); Bilirubin,Total 0.9 mg/dL (0.2-1.3); Blood Urea Nitrogen 15 mg/dL (7-17); CRP < 0.5 mg/dL (<1.0); Calcium 8.8 mg/dL (8.4-10.2); Carbon Dioxide 22 mmol/L (22-30); Chloride 76 mmol/L (98-107); Estimated CRCL calculation 67 ml/min; Estimated Glomerular Filt Rate > 60; Glucose 123 mg/dL (65-110); Lipase 32 U/L (23-300); Potassium 4.5 mmol/L (3.4-5.0); Sodium 108 mmol/L (137-145)
--- NOTE | 2021-01-02 21:46 | PC.NURSE ---
Critical lab received- charge and dr notified.
--- NOTE | 2021-01-02 23:13 | PM.IMHP ---
H&P: HPI History of Present Illness Date/Time: 01/02/21 23:13 Chief Complaint: Generalized weakness Narrative: This is an 80-year-old female with past medical history significant for COPD, migraine headaches, paroxysmal atrial fibrillation, transient ischemic attack. Patient presented to the emergency room due to generalized weakness nausea and vomiting no diarrhea no fevers no rigors no chills no cough no shortness of breath no sputum production patient has had poor appetite as well. Preliminary workup in emergency room showed a sodium of 108 chloride of 76. Patient states that she has been her usual state of health up till this. She denies any syncope or near-syncope no chest pain no PND no orthopnea. A chest x-ray was clear Review of Systems Review of Systems: Generalized weakness nausea and vomiting Constitutional: Constitutional: Denies chills, Reports fatigue, Denies fever(s), Reports lethargy, Denies malaise and Reports weakness Eyes: Eyes: Denies change in vision ENT: Denies dysphagia, Denies vertigo, Denies dizziness, Denies nasal congestion, Denies nasal discharge, Denies nasal obstruction and Denies odynophagia Cardiovascular: Cardiovascular: Denies chest pain, Denies lightheadedness, Denies radiating jaw, neck or arm pain, Denies palpitations, Denies dyspnea, Denies dyspnea on exertion and Denies orthopnea Respiratory: Respiratory: Denies cough Gastrointestinal: Gastrointestinal: Denies abdominal pain, Denies diarrhea, Reports nausea and Reports vomiting Genitourinary: Genitourinary: Reports no additional female genitourinary complaints Musculoskeletal: Musculoskeletal: Reports no additional musculoskeletal complaints Integumentary/Breasts: Skin/Breast: Reports system reviewed and no additional complaints, except as docu Neurologic: Reports system reviewed and no additional complaints, except as documented Psychiatric: Psychiatric: Reports no additional psychiatric complaints Endocrine: Endocrine: Reports no additional endocrine complaints Hematologic/Lymphatic: Hematologic/Lymphatic: Reports no additional hematologic/lymphatic complaints Allergic/Immunologic: Allergic/Immunologic: Reports no additional allergic/immunologic complaints [facility] Past Medical History Medical History Arthritis Colitis COPD (chronic obstructive pulmonary disease) Due to significant secondhand smoke exposure. Eczema Elevated lipids Headache, migraine Hypertension Paroxysmal atrial fibrillation Paroxysmal atrial fibrillation/atrial flutter. Patient of Dr. Garrison Stewart. Maintained on amiodarone and Xarelto. TIA (transient ischemic attack) At the age of 29, attributed to oral contraceptives. Surgical History Surgical History History of appendectomy History of eyelid surgery History of tonsillectomy History of uterine suspension procedure History of ventral hernia repair Family History Family History Mother Family history of kidney disease Family history of elevated blood lipids Acute myocardial infarction, Onset Age: 93 Family history of liver disease, Onset Age: 93 Family history of congestive heart failure Family history of chronic obstructive pulmonary disease Family history of renal failure, Onset Age: 93 Father Family history of migraine headaches Hypertension Grandparent Cerebrovascular accident Other Family history of cardiovascular disease Family history of malignant neoplasm Social History Social History Social History: The patient is and lives with her earnest in [place]. They have 2 children. 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 She is a lifelong nonsmoker but reports significant secondhand smoke exposure. No alcohol or drug abuse. Her is her surrogate decision maker,
[2021-01-02] MEDS: SODIUM CHLORIDE 0.9% IV 1,000 ML 75 ML IV CONT (23:53)
[2021-01-02] MEDS: ONDANSETRON INJ 4 MG/2 ML VIAL IV PUSH (23:53)
[2021-01-03] VITALS (10 sets, daily range): BP systolic 98–173; BP diastolic 35–78; PULSE 52–77; RESP 16–22; TEMP 35.8–36.6; O2SAT 96–100
[2021-01-03] MEDS: SODIUM CHLORIDE 0.9% IV 1,000 ML 999 ML (01:26)
[2021-01-03 01:59] LABS: Sodium Urine Random 32 meq/L
[2021-01-03 02:26] LABS: Anion Gap 10 mmol/L (8-16); Blood Urea Nitrogen 13 mg/dL (7-17); Calcium 8.5 mg/dL (8.4-10.2); Carbon Dioxide 24 mmol/L (22-30); Chloride 78 mmol/L (98-107); Estimated CRCL calculation 60 ml/min; Estimated Glomerular Filt Rate > 60; Glucose 110 mg/dL (65-110); Potassium 3.6 mmol/L (3.4-5.0); Sodium 112 mmol/L (137-145)
[2021-01-03] MEDS: CEPHALEXIN 500 MG CAPSULE PO ×2 (05:44→18:22)
--- NOTE | 2021-01-03 05:59 | PHAR ---
PHARMACY VERIFIED HOME MED: Lifitegrast [Xiidra] 5 % Dropperette INSTILL 1 DROP IN EACH EYE TWICE DAILY
[2021-01-03 07:18] LABS: Anion Gap 6 mmol/L (8-16); Blood Urea Nitrogen 13 mg/dL (7-17); Calcium 8.7 mg/dL (8.4-10.2); Carbon Dioxide 25 mmol/L (22-30); Chloride 82 mmol/L (98-107); Estimated CRCL calculation 52 ml/min; Estimated Glomerular Filt Rate > 60; Glucose 95 mg/dL (65-110); Sodium 113 mmol/L (137-145)
--- NOTE | 2021-01-03 07:28 | PM.IMPN ---
Progress Note: A&P Assessment and Plan (1) Acute hyponatremia: Code(s): E87.1 - Hypo-osmolality and hyponatremia Status: Acute Assessment and Plan: She is over correcting had of her serum sodium. Will stop normal saline infusion and will give her 500 cc of dextrose water in 2 hours. Will check BMP now and continue to follow it every 4 hours. Adjust normal saline as per sodium correction. DDAVP/desmopressin if her urine output increases. Will not allow sodium correction for more than 6-8 mEq in 24 hour time. Continue to monitor neuro checks. Urine sodium is low which was 32. Urine osmolality is pending. Nephrology is consulted. Continue to hold Lasix. (2) Acute urinary retention: Code(s): R33.8 - Other retention of urine Status: Acute Assessment and Plan: Tolbert in place. (3) Paroxysmal atrial fibrillation: Code(s): I48.0 - Paroxysmal atrial fibrillation Status: Chronic Assessment and Plan: Continue flecainide Continue carvedilol and rivaroxaban (4) Hypertension: Qualifiers: Hypertension type: unspecified Qualified Code(s): I10 - Essential (primary) hypertension Code(s): I10 - Essential (primary) hypertension Status: Acute Assessment and Plan: Continue carvedilol and losartan Continue to monitor hemodynamics closely. (5) COPD (chronic obstructive pulmonary disease): Qualifiers: COPD type: unspecified COPD Qualified Code(s): J44.9 - Chronic obstructive pulmonary disease, unspecified Code(s): J44.9 - Chronic obstructive pulmonary disease, unspecified Status: Chronic Assessment and Plan: Not actively wheezing Not on nebulizers at home Continue to monitor Subjective Date/time seen: 01/03/21 07:28 She is feeling better today. She is still having nausea but no vomiting. She denied have any chest pain shortness of breath fever chills abdominal pain. She denied have any further symptoms of generalized weakness and tiredness. Her serum sodium today in the morning was 113 with her serum sodium at the time of presentation was 108. Review of Systems Review of Systems: A comprehensive review of systems has been reviewed with the patient and most of the symptoms are negative except the one's mentioned above in HPI. Exam Narrative: General awake and alert not in acute distress HEENT no discharge Neck supple CVS S1-S2 no murmur Respiratory no wheezes or crepitation respiration nonlabored GI soft nontender nondistended no hepatosplenomegaly [employer] alert oriented x3 Psychiatric cooperative appropriate mood and affect Extremities no edema Objective Data Vital Signs Vital Signs: Vital Signs - 24 hr 01/02/21 20:01 01/02/21 20:09 01/02/21 20:11 Temperature 36.7 C Pulse Rate 63 63 61 Respiratory Rate 21 H 21 H 18 Blood Pressure 187/75 H 187/75 H Pulse Oximetry 100 98 98 01/02/21 20:15 01/02/21 20:16 01/02/21 20:30 Temperature Pulse Rate 64 64 62 Respiratory Rate 21 H 20 15 Blood Pressure Pulse Oximetry 01/02/21 20:31 01/02/21 20:55 01/02/21 21:00 Temperature Pulse Rate 61 59 L 59 L Respiratory Rate 20 21 H 19 Blood Pressure 204/76 H Pulse Oximetry 99 01/02/21 21:15 01/03/21 00:01 01/03/21 00:50 Temperature 36.5 C Pulse Rate 59 L 77 64 Respiratory Rate 22 H 18 18 Blood Pressure 160/78 H 173/60 H Pulse Oximetry 100 100 01/03/21 05:14 Temperature 36.6 C Pulse Rate 52 L Respiratory Rate 16 Blood Pressure 115/44 L Pulse Oximetry 99 Intake/Output Intake/Output: Intake & Output 12/31/20 01/01/21 01/02/21 01/03/21 23:59 23:59 23:59 23:59 Intake Total 1200 Output Total 700 1750 Balance -700 -550 Meds/Results Medications: Active Medications Generic Name Dose Route Start Last Admin Trade Name [place] PRN Reason Stop Dose Admin Acetaminophen 500 mg 01/03/21 03:46 Acetaminophen 500 Mg Tab
[2021-01-03] MEDS: FLUTICASONE PROPIONATE 0.05% NA SPR 16 GM BTL (*BKC) 2 SPRAY NASAL (10:08)
[2021-01-03] MEDS: hydrALAZINE HCL 50 MG TABLET PO ×3 (10:09→18:21)
[2021-01-03] MEDS: LOSARTAN POTASSIUM 100 MG TABLET PO (10:09)
[2021-01-03] MEDS: carvediloL 3.125 MG TABLET PO ×2 (10:09→21:05)
[2021-01-03] MEDS: hydrALAZINE HCL 25 MG TABLET PO ×3 (10:09→18:21)
[2021-01-03] MEDS: FLECAINIDE ACETATE 100 MG TABLET PO ×2 (10:09→18:22)
[2021-01-03] MEDS: PANTOPRAZOLE 40 MG TABLET PO (11:04)
[2021-01-03] MEDS: DEXTROSE 5% IN WATER 500 ML 125 ML IV CONT (12:22)
[2021-01-03 12:27] LABS: Anion Gap 6 mmol/L (8-16); Blood Urea Nitrogen 15 mg/dL (7-17); Calcium 7.8 mg/dL (8.4-10.2); Carbon Dioxide 21 mmol/L (22-30); Chloride 88 mmol/L (98-107); Estimated CRCL calculation 60 ml/min; Estimated Glomerular Filt Rate > 60; Glucose 97 mg/dL (65-110); Potassium 3.9 mmol/L (3.4-5.0); Sodium 115 mmol/L (137-145)
[2021-01-03] MEDS: CHOLECALCIFEROL 1,000 UNITS TABLET 1000 UNITS PO (13:03)
--- NOTE | 2021-01-03 15:43 | PM.CNNEP ---
Assessment and Plan Assessment and plan (1) Acute hyponatremia: Code(s): E87.1 - Hypo-osmolality and hyponatremia Status: Acute Assessment and Plan: The patient has severe hyponatremia. It turns out that she is back on her hydrochlorothiazide after all. The admitting beds did not show it but her came with a list of medications from her primary care doctor that was unavailable before today showing that she was back on her hydrochlorothiazide. The patient remembers being put on this about 3 weeks ago. This is probably why her sodium level is low. The patient also took a dose of Lexapro on Monday which may have added to the issue with her hyponatremia. In addition the patient is on omeprazole which can in some cases cause hyponatremia. She also was told by somebody to drink a whole lot of fluid. She shortly did not continue her fluid restriction of 1500cc per day as suggested at her last hospital stay. In addition the patient has COPD which may contribute to the low sodium. So the patient has several risk factors for hyponatremia. I think she probably has some long-term risk factor which is not treatable such as the COPD. Then when she either gets sick like she did the last couple of admission or is put on certain medications then her hyponatremia worsens. She was relatively asymptomatic from her hyponatremia on admission. I suspect that hydrochlorothiazide did most of the reduction of the sodium and possibly the Lexapro and extra fluid caused it to drop even further leading to her symptoms. Right now she is off of hydrochlorothiazide and Lexapro. Therefore she is at risk for overly rapid correction. The patient's sodium started out at 108and is now 115. This is about as much as we want to correct over 24hours starting at 8:[address] garcía appropriately is giving her some D5W to drop her serum sodium a little bit. Hopefully this will be enough to get her by a until 8:00 p.m. tonight without a correction of more than 8. Will continue to watch her sodium levels going forward to catch if she is over correcting. I discussed with her that she should have close monitoring of her sodium levels as an outpatient especially if she starts to feel poorly. Any time she changes medications she should be talking to somebody about her sodium level. She has all of her care at [facility] so she could go to nephrology department there or we can help her in our office here if she wishes. (2) Hypertension: Qualifiers: Hypertension type: unspecified Qualified Code(s): I10 - Essential (primary) hypertension Code(s): I10 - Essential (primary) hypertension Status: Acute Assessment and Plan: Her blood pressure is up and down. She does have some swelling which suggests that sodium may be an issue with her hypertension, however we probably should avoid diuretics in the future. Furosemide would be less likely to cause hyponatremia unless it led to dehydration. Will check hormone and possibly CT angio of the kidneys to look for reasons why her blood pressure is so difficult to control. With her up and down blood pressure, more long-acting agents than short-acting agents would be prudent to reduce the swings. Anxiety may indeed be playing a role in her blood pressure. Perhaps a benzodiazepine rather than an SSRI would be a better choice. She has a low heart rate at times so will need to avoid non dihydropyridine calcium channel blockers, clonidine, guanfacine, and beta-blockers. She develops swelling so I guess we can not use dihydropyridine calcium channel blockers either. (3) COPD (chronic obstructive pulmonary disease): Qualifiers: COPD type: unspecified COPD Qualified Code(s): J44.9 - Chronic obstructive pulmonary disease, unspecified Code(s): J44.9 - Chronic obstructive pulmonary disease, unspecified Status: Chronic Assessment and Plan: The p
[2021-01-03 18:07] LABS: Anion Gap 6 mmol/L (8-16); Blood Urea Nitrogen 16 mg/dL (7-17); Calcium 8.1 mg/dL (8.4-10.2); Carbon Dioxide 24 mmol/L (22-30); Chloride 86 mmol/L (98-107); Estimated CRCL calculation 46 ml/min; Estimated Glomerular Filt Rate > 60; Glucose 92 mg/dL (65-110); Sodium 116 mmol/L (137-145)
[2021-01-03] MEDS: RIVAROXABAN 15 MG TABLET PO (18:22)
[2021-01-03] MEDS: DEXTROSE 5% IN WATER 250 ML 125 ML IV CONT (18:53)
[2021-01-03] MEDS: ONDANSETRON INJ 4 MG/2 ML VIAL IV PUSH (19:18)
[2021-01-03] MEDS: FAMOTIDINE 20 MG TABLET PO (21:01)
[2021-01-03 23:32] LABS: Sodium 114 mmol/L (137-145)
[2021-01-04] VITALS (9 sets, daily range): BP systolic 89–105; BP diastolic 35–50; PULSE 55–98; RESP 18; TEMP 36.1–36.7; O2SAT 97–99
[2021-01-04 04:34] LABS: Hematocrit 31.1 % (37.0-47.0); Hemoglobin 10.8 g/dL (12.0-15.0); Mean Corpuscular HGB Conc 34.7 g/dl (32-36); Mean Corpuscular Hemoglobin 31.7 pg (26-34); Mean Corpuscular Volume 91.2 fl (80-100); Mean Platelet Volume 8.8 fl (7.4-10.4); Platelet Count Result 205 k/mm3 (150-375); Red Blood Count 3.41 M/mm3 (4.2-5.4); Red Cell Distribution Width 12.2 % (11.5-14.5); White Blood Count 8.3 K/mm3 (4.5-10.0)
[2021-01-04 04:53] LABS: Anion Gap 5 mmol/L (8-16); Blood Urea Nitrogen 20 mg/dL (7-17); Calcium 8.1 mg/dL (8.4-10.2); Carbon Dioxide 23 mmol/L (22-30); Chloride 87 mmol/L (98-107); Estimated CRCL calculation 52 ml/min; Estimated Glomerular Filt Rate > 60; Glucose 86 mg/dL (65-110); Potassium 4.1 mmol/L (3.4-5.0); Sodium 115 mmol/L (137-145)
[2021-01-04] MEDS: CEPHALEXIN 500 MG CAPSULE PO ×2 (05:23→18:12)
[2021-01-04] MEDS: carvediloL 3.125 MG TABLET PO ×2 (09:32→21:45)
[2021-01-04] MEDS: FLECAINIDE ACETATE 100 MG TABLET PO ×2 (09:32→18:12)
[2021-01-04] MEDS: FAMOTIDINE 20 MG TABLET PO ×2 (09:32→21:45)
[2021-01-04] MEDS: CHOLECALCIFEROL 1,000 UNITS TABLET 1000 UNITS PO (09:33)
[2021-01-04] MEDS: LOSARTAN POTASSIUM 100 MG TABLET PO (09:33)
[2021-01-04] MEDS: FLUTICASONE PROPIONATE 0.05% NA SPR 16 GM BTL (*BKC) 2 SPRAY NASAL (09:33)
[2021-01-04] MEDS: SODIUM CHLORIDE 0.9% IV 250 ML IV CONT (11:35)
[2021-01-04 12:33] LABS: Anion Gap 8 mmol/L (8-16); Blood Urea Nitrogen 15 mg/dL (7-17); Calcium 8.4 mg/dL (8.4-10.2); Carbon Dioxide 23 mmol/L (22-30); Chloride 86 mmol/L (98-107); Estimated CRCL calculation 46 ml/min; Estimated Glomerular Filt Rate > 60; Glucose 138 mg/dL (65-110); Potassium 3.6 mmol/L (3.4-5.0); Sodium 117 mmol/L (137-145)
--- NOTE | 2021-01-04 15:29 | PM.PNNEP ---
Progress Note: A&P Assessment and Plan (1) Acute hyponatremia: Code(s): E87.1 - Hypo-osmolality and hyponatremia Status: Acute Assessment and Plan: acute but has had this in the past as well multifactorial: - HCTZ use (she was discontinued on this medication the last time she had hyponatremia on her last hosptialization) - excess free water intake (did not continue her 1500cc fluid restriction as outlined on discharge on last hospitalization) - use of lexapro and omeprazole may have contributed - known history of COPD goal of therapy is a rate of change of 4 - 6mmol/L (but no more than 8mmol/L) in 24 hour period of time off lexapro and HCTZ at this time she is at risk for overcorrection follow trend of repeat sodium levels (2) Hypertension: Qualifiers: Hypertension type: unspecified Qualified Code(s): I10 - Essential (primary) hypertension Code(s): I10 - Essential (primary) hypertension Status: Acute Assessment and Plan: quite erratic which is a chronic issue/problems follow trend of hemodynamics (3) COPD (chronic obstructive pulmonary disease): Qualifiers: COPD type: unspecified COPD Qualified Code(s): J44.9 - Chronic obstructive pulmonary disease, unspecified Code(s): J44.9 - Chronic obstructive pulmonary disease, unspecified Status: Chronic Assessment and Plan: appears relatively stable likely playing a role with #1 Will continue to follow. Subjective Date/time seen: 01/04/21 15:29 No apparent issues or problems to report at this time; feels reasonably well without any acute complaints voiced; no issues/events overnight or earlier overnight; sodium appears to be slowly correcting with just fluid restriction alone. Exam Narrative: General: WD/WN female in NAD Heart: normal S1 and S2; no rub Lungs: clear to auscultation Abdomen: soft, nontender, nondistended, positive bowel sounds Extremities: no cyanosis or clubbing; no edema Skin: warm and dry Objective Data Vital Signs Vital Signs: Vital Signs Temp Pulse Resp BP Pulse Ox 01/04/21 13:56 36.4 C L 58 L 18 98/50 L 99 01/04/21 13:03 96/50 L 01/04/21 10:50 56 L 89/35 L 01/04/21 09:32 58 L 01/04/21 06:00 36.7 C 98 18 105/43 L 97 01/03/21 22:00 36.4 C 55 L 18 98/35 L 96 01/03/21 21:05 57 L 01/03/21 20:00 55 L 18 96 Intake/Output Intake/Output: Intake & Output 01/01/21 01/02/21 01/03/21 01/04/21 23:59 23:59 23:59 23:59 Intake Total 2430 510 Output Total 978 1299 4225 Balance -193 -876 -2800 Meds/Results Medications: Active Medications Generic Name Dose Route Start Last Admin Trade Name Freq PRN Reason Stop Dose Admin Acetaminophen 500 mg 01/03/21 03:46 Acetaminophen 500 Mg Tablet PO Q6H PRN Pain Rated 1-3 Albuterol 1 - 2 puff 01/03/21 03:46 Albuterol Sulfate (*Sp) Aerosol 1 Puff INHALATION Q4H PRN shortness of breath or wheezing Artificial Tears 1 drop 01/03/21 03:46 Artificial Tears Ophth Soln 15 Ml Bottle LEFT EYE DAILY PRN Dry Eye(S) Carvedilol 3.125 mg 01/03/21 09:00 01/04/21 09:32 Carvedilol 3.125 Mg Tablet PO 3.125 mg Q12HR MARTIN Administration Cephalexin HCl 500 mg 01/03/21 06:00 01/04/21 18:12 Cephalexin 500 Mg Capsule PO 01/07/21 18:01 500 mg Q12H MARTIN Administration Famotidine 20 mg 01/03/21 21:00 01/04/21 09:32 Famotidine 20 Mg Tablet PO 20 mg Q12HR MARTIN Administration Flecainide Acetate 100 mg 01/03/21 09:00 01/04/21 18:12 Flecainide Acetate 100 Mg Tablet PO 100 mg BID MARTIN Administration Fluticasone Propionate 2 spray 01/03/21 09:00 01/04/21 09:33 Fluticasone Propionate 0.05% Na Spr 16 Gm Btl (*Bkc) NASAL 2 spray DAILY MARTIN Administration Hydralazine HCl 25 mg 01/03/21 08:00 01/04/21 09:32 Hydralazine Hcl 25 Mg
--- NOTE | 2021-01-04 16:19 | PM.IMPN ---
Progress Note: A&P Assessment and Plan (1) Acute hyponatremia: Code(s): E87.1 - Hypo-osmolality and hyponatremia Status: Acute Assessment and Plan: She is over correcting had of her serum sodium. Will stop normal saline infusion and will give her 500 cc of dextrose water in 2 hours. Will check BMP now and continue to follow it every 4 hours. Adjust normal saline as per sodium correction. DDAVP/desmopressin if her urine output increases. Will not allow sodium correction for more than 6-8 mEq in 24 hour time. Continue to monitor neuro checks. Urine sodium is low which was 32. Urine osmolality is pending. Nephrology is consulted. Continue to hold Lasix. 01/04 patient with generalized weakness upon arrival patient had profound hyponatremia a sodium 108, patient seen by Nephrology suspect most likely secondary to hydrochlorothiazide as well as Lexapro, combination of those 2 meds resulted and hyponatremia, patient is being treated with free fluid restriction. in gently hydrate with normal saline 75 cc and patient's sodium is monitor every 4 hours and today her sodium 117, patient states is feeling much better compared to when she arrived, will continue to monitor, patient is present in the room answered all his questions. (2) Acute urinary retention: Code(s): R33.8 - Other retention of urine Status: Acute Assessment and Plan: Tolbert in place. (3) Paroxysmal atrial fibrillation: Code(s): I48.0 - Paroxysmal atrial fibrillation Status: Chronic Assessment and Plan: Continue flecainide Continue carvedilol and rivaroxaban (4) Hypertension: Qualifiers: Hypertension type: unspecified Qualified Code(s): I10 - Essential (primary) hypertension Code(s): I10 - Essential (primary) hypertension Status: Acute Assessment and Plan: Continue carvedilol and losartan Continue to monitor hemodynamics closely. (5) COPD (chronic obstructive pulmonary disease): Qualifiers: COPD type: unspecified COPD Qualified Code(s): J44.9 - Chronic obstructive pulmonary disease, unspecified Code(s): J44.9 - Chronic obstructive pulmonary disease, unspecified Status: Chronic Assessment and Plan: Not actively wheezing Not on nebulizers at home Continue to monitor Subjective Date/time seen: 01/04/21 16:19 Chief Complaint: Generalized weakness Narrative: This is an 80-year-old female with past medical history significant for COPD, migraine headaches, paroxysmal atrial fibrillation, transient ischemic attack. Patient presented to the emergency room due to generalized weakness nausea and vomiting no diarrhea no fevers no rigors no chills no cough no shortness of breath no sputum production patient has had poor appetite as well. Preliminary workup in emergency room showed a sodium of 108 chloride of 76. Patient states that she has been her usual state of health up till this. She denies any syncope or near-syncope no chest pain no PND no orthopnea. A chest x-ray was clear 01/04 patient with generalized weakness upon arrival patient had profound hyponatremia a sodium 108, patient seen by Nephrology suspect most likely secondary to hydrochlorothiazide as well as Lexapro, combination of those 2 meds resulted and hyponatremia, patient is being treated with free fluid restriction. in gently hydrate with normal saline 75 cc and patient's sodium is monitor every 4 hours and today her sodium 117, patient states is feeling much better compared to when she arrived, will continue to monitor, patient is present in the room answered all his questions. Review of Systems Review of Systems: All systems reviewed & are unremarkable except as noted in HPI and below Exam Narrative: Patient is comfortable, NAD HEENT: eyes are clear and none icteric LUNGS:CTA HEART: RR S1S2 ABD: BS+, Soft and nontender Lower extremities: no edema
[2021-01-04 18:04] LABS: Sodium 119 mmol/L (137-145)
[2021-01-04] MEDS: RIVAROXABAN 15 MG TABLET PO (18:13)
[2021-01-04 23:07] LABS: Sodium 124 mmol/L (137-145)
[2021-01-04] MEDS: DEXTROSE 5% 1,000 ML 1,000 ML 200 ML IV CONT (23:35)
[2021-01-05] VITALS (10 sets, daily range): BP systolic 109–121; BP diastolic 40–48; PULSE 48–60; RESP 14–48; TEMP 36.4–37.2; O2SAT 97–100
[2021-01-05] MEDS: CEPHALEXIN 500 MG CAPSULE PO ×2 (06:32→17:51)
[2021-01-05 07:48] LABS: Anion Gap 3 mmol/L (8-16); Blood Urea Nitrogen 16 mg/dL (7-17); Calcium 8.4 mg/dL (8.4-10.2); Carbon Dioxide 27 mmol/L (22-30); Chloride 96 mmol/L (98-107); Estimated CRCL calculation 52 ml/min; Estimated Glomerular Filt Rate > 60; Glucose 88 mg/dL (65-110); Sodium 126 mmol/L (137-145)
[2021-01-05] MEDS: CHOLECALCIFEROL 1,000 UNITS TABLET 1000 UNITS PO (07:59)
[2021-01-05] MEDS: FLUTICASONE PROPIONATE 0.05% NA SPR 16 GM BTL (*BKC) 2 SPRAY NASAL (07:59)
[2021-01-05] MEDS: FAMOTIDINE 20 MG TABLET PO ×2 (07:59→21:15)
[2021-01-05] MEDS: LOSARTAN POTASSIUM 100 MG TABLET PO (08:48)
[2021-01-05] MEDS: DEXTROSE 5% 1,000 ML 1,000 ML 250 ML IV CONT (09:24)
[2021-01-05] MEDS: DESMOPRESSIN ACETATE 4 MCG/ML AMP 1 MCG SUB-Q (10:28)
--- NOTE | 2021-01-05 11:02 | PM.PNNEP ---
Progress Note: A&P Assessment and Plan (1) Acute hyponatremia: Code(s): E87.1 - Hypo-osmolality and hyponatremia Status: Acute Assessment and Plan: acute but has had this in the past as well multifactorial: - HCTZ use (she was discontinued on this medication the last time she had hyponatremia on her last hosptialization) - excess free water intake (did not continue her 1500cc fluid restriction as outlined on discharge on last hospitalization) - use of lexapro and omeprazole may have contributed - known history of COPD goal of therapy is a rate of change of 4 - 6mmol/L (but no more than 8mmol/L) in 24 hour period of time off lexapro and HCTZ at this time due to concenrs of overcorrection - given DDAVP and D5W follow trend of repeat sodium levels (2) Hypertension: Qualifiers: Hypertension type: unspecified Qualified Code(s): I10 - Essential (primary) hypertension Code(s): I10 - Essential (primary) hypertension Status: Acute Assessment and Plan: quite erratic which is a chronic issue/problems follow trend of hemodynamics (3) COPD (chronic obstructive pulmonary disease): Qualifiers: COPD type: unspecified COPD Qualified Code(s): J44.9 - Chronic obstructive pulmonary disease, unspecified Code(s): J44.9 - Chronic obstructive pulmonary disease, unspecified Status: Chronic Assessment and Plan: appears relatively stable likely playing a role with #1 Will continue to follow. Subjective Date/time seen: 01/05/21 10:02 Sodium seems to overcorrect by trend of labs so s/p D5W and DDAVP; despite her fluctuating sodium level, she remain relatively asymptomatic; no other acute issues/events overnight or earlier this AM; no distress voiced at this time. Exam Narrative: General: WD/WN female in NAD Heart: normal S1 and S2; no rub Lungs: clear to auscultation Abdomen: soft, nontender, nondistended, positive bowel sounds Extremities: no cyanosis or clubbing; no edema Skin: warm and intact Objective Data Vital Signs Vital Signs: Vital Signs Temp Pulse Resp BP Pulse Ox 01/05/21 07:56 48 L 01/05/21 07:55 48 L 01/05/21 07:53 48 H 121/43 L 01/05/21 05:02 36.6 C 52 L 14 112/48 L 98 01/04/21 21:45 80 01/04/21 20:00 80 18 98 01/04/21 19:54 36.1 C L 55 L 18 104/42 L 98 01/04/21 18:12 58 L 01/04/21 13:56 36.4 C L 58 L 18 98/50 L 99 01/04/21 13:03 96/50 L Intake/Output Intake/Output: Intake & Output 01/02/21 01/03/21 01/04/21 01/05/21 23:59 23:59 23:59 23:59 Intake Total 2430 770 490 Output Total 700 0980 5790 1200 [facility] -700 -270 -2980 -710 Meds/Results Medications: Active Medications Generic Name Dose Route Start Last Admin Trade Name Freq PRN Reason Stop Dose Admin Acetaminophen 500 mg 01/03/21 03:46 Acetaminophen 500 Mg Tablet PO Q6H PRN Pain Rated 1-3 Albuterol 1 - 2 puff 01/03/21 03:46 Albuterol Sulfate (*Sp) Aerosol 1 Puff INHALATION Q4H PRN shortness of breath or wheezing Artificial Tears 1 drop 01/03/21 03:46 Artificial Tears Ophth Soln 15 Ml Bottle LEFT EYE DAILY PRN Dry Eye(S) Carvedilol 3.125 mg 01/03/21 09:00 01/05/21 07:55 Carvedilol 3.125 Mg Tablet PO Not Given Q12HR MARTIN Cephalexin HCl 500 mg 01/03/21 06:00 01/05/21 06:32 Cephalexin 500 Mg Capsule PO 01/07/21 18:01 500 mg Q12H MARTIN Administration Famotidine 20 mg 01/03/21 21:00 01/05/21 07:59 Famotidine 20 Mg Tablet PO 20 mg Q12HR MARTIN Administration Flecainide Acetate 100 mg 01/03/21 09:00 01/05/21 07:56 Flecainide Acetate 100 Mg Tablet PO Not Given BID MRATIN Fluticasone Propionate 2 spray 01/03/21 09:00 01/05/21 07:59 Fluticasone Propionate 0.05% Na Spr 16 Gm Btl (*Bkc) NASAL 2 spray DAILY MARTIN Administration Hydralazine HCl
--- NOTE | 2021-01-05 11:27 | WPDCDIQUERY2 ---
CDI Query Clarification Request - she was seen at [facility] earlier today and diagnosed with a UTI and started on Keflex documented by EDP -Cephalexin 500mg po q 12hrs ordered here -01/02 urine culture with growth of mixed devendra suggesting probable contamination Please clarify if UTI has been ruled in or ruled out. <Debbie Sims RN - Last Filed: 01/05/21 11:33> Clarified Diagnosis (1) UTI (urinary tract infection): Code(s): N39.0 - Urinary tract infection, site not specified <Debbie Sims RN - Last Filed: 01/05/21 11:33> Status: Acute <Debbie Sims RN - Last Filed: 01/05/21 11:33> Assessment and Plan: Continue cephalexin for planned duration <Car Aquino MD - Last Filed: 01/06/21 13:44>
[2021-01-05 14:16] LABS: Anion Gap 6 mmol/L (8-16); Blood Urea Nitrogen 13 mg/dL (7-17); Calcium 8.3 mg/dL (8.4-10.2); Carbon Dioxide 26 mmol/L (22-30); Chloride 89 mmol/L (98-107); Estimated CRCL calculation 52 ml/min; Estimated Glomerular Filt Rate > 60; Glucose 126 mg/dL (65-110); Potassium 3.7 mmol/L (3.4-5.0); Sodium 121 mmol/L (137-145)
[2021-01-05] MEDS: RIVAROXABAN 15 MG TABLET PO (17:51)
[2021-01-05] MEDS: FLECAINIDE ACETATE 100 MG TABLET PO (17:51)
--- NOTE | 2021-01-05 18:06 | PM.IMPN ---
Progress Note: A&P Assessment and Plan (1) Acute hyponatremia: Code(s): E87.1 - Hypo-osmolality and hyponatremia Status: Acute Assessment and Plan: Admission sodium level of 108. Nephrology following. Suspected secondary to hydrochlorothiazide as well as Lexapro. Patient treated with fluid restriction gentle hydration normal saline and continuous monitoring per Nephrology. Will not allow sodium correction for more than 6-8 mEq in 24 hour time. Continue to monitor neuro checks. Urine sodium is low which was 32. Urine osmolality is pending. (2) Acute urinary retention: Code(s): R33.8 - Other retention of urine Status: Acute Assessment and Plan: Tolbert in place. (3) Paroxysmal atrial fibrillation: Code(s): I48.0 - Paroxysmal atrial fibrillation Status: Chronic Assessment and Plan: Continue flecainide Continue carvedilol and rivaroxaban Will place on telemetry monitoring due to bradycardia (4) Hypertension: Qualifiers: Hypertension type: unspecified Qualified Code(s): I10 - Essential (primary) hypertension Code(s): I10 - Essential (primary) hypertension Status: Acute Assessment and Plan: Continue carvedilol and losartan Continue to monitor hemodynamics closely. (5) COPD (chronic obstructive pulmonary disease): Qualifiers: COPD type: unspecified COPD Qualified Code(s): J44.9 - Chronic obstructive pulmonary disease, unspecified Code(s): J44.9 - Chronic obstructive pulmonary disease, unspecified Status: Chronic Assessment and Plan: Not actively wheezing Not on nebulizers at home Continue to monitor Subjective Date/time seen: 01/05/21 18:06 Interval history: Feeling better. Slowly she states. No nausea vomiting no abdominal pain. Heart rate was slow and hence her medication were held this morning not on tele Review of Systems Review of Systems: All systems reviewed & are unremarkable except as noted in HPI and below Exam Narrative: Patient is comfortable, NAD HEENT: eyes are clear and none icteric LUNGS:CTA no respiratory distress HEART: RR S1S2 ABD: BS+, Soft and nontender Lower extremities: no edema no cyanosis or clubbing SKIN: nonjaundiced Neuro: grossly intact. Alert and oriented x3 Objective Data Vital Signs Vital Signs: Vital Signs - 24 hr 01/04/21 18:12 01/04/21 19:54 01/04/21 20:00 Temperature 97 F L Pulse Rate 58 L 55 L 80 Respiratory Rate 18 18 Blood Pressure 104/42 L Pulse Oximetry 98 98 01/04/21 21:45 01/05/21 05:02 01/05/21 07:53 Temperature 97.9 F Pulse Rate 80 52 L Respiratory Rate 14 48 H Blood Pressure 112/48 L 121/43 L Pulse Oximetry 98 01/05/21 07:55 01/05/21 07:56 01/05/21 14:00 Temperature 98.3 F Pulse Rate 48 L 48 L 58 L Respiratory Rate 16 Blood Pressure 118/47 L Pulse Oximetry 100 01/05/21 17:51 Temperature Pulse Rate 60 Respiratory Rate Blood Pressure Pulse Oximetry Intake/Output Intake/Output: Intake & Output 01/02/21 01/03/21 01/04/21 01/05/21 23:59 23:59 23:59 23:59 Intake Total 2430 770 1360 Output Total 700 2700 3750 1200 Balance 700 270 -4792 160 Meds/Results Medications: Active Medications Generic Name Dose Route Start Last Admin Trade Name Freq PRN Reason Stop Dose Admin Acetaminophen 500 mg 01/03/21 03:46 Acetaminophen 500 Mg Tablet PO Q6H PRN Pain Rated 1-3 Albuterol 1 - 2 puff 01/03/21 03:46 Albuterol Sulfate (*Sp) Aerosol 1 Puff INHALATION Q4H PRN shortness of breath or wheezing Artificial Tears 1 drop 01/03/21 03:46 Artificial Tears Ophth Soln 15 Ml Bottle LEFT EYE DAILY PRN Dry Eye(S) Carvedilol 3.125 mg 01/03/21 09:00 01/05/21 07:55 Carvedilol 3.125 Mg Tablet PO Not Given Q12HR [facility] Cephalexin HCl 500 mg 01/03/21 06:00 01/05/21 17:51 Cephalexin 500 Mg Capsule PO 01/07/21 18:01 500 m
[2021-01-05 19:19] LABS: Sodium 118 mmol/L (137-145)
[2021-01-05] MEDS: polyethylene glycoL 3350 17 GM POWD.PACK PO (21:15)
[2021-01-05] MEDS: carvediloL 3.125 MG TABLET PO (21:15)
[2021-01-05 23:00] LABS: Sodium 123 mmol/L (137-145)
[2021-01-06] VITALS (10 sets, daily range): BP systolic 105–131; BP diastolic 38–57; PULSE 45–58; RESP 16–20; TEMP 36.4–36.7; O2SAT 97–100
[2021-01-06] MEDS: CEPHALEXIN 500 MG CAPSULE PO ×2 (05:37→17:57)
[2021-01-06 06:07] LABS: Basophils Percent Auto 0.5 % (0.2-1.2); Eosinophils Absolute Auto 0.1 K/mm3 (0-0.3); Eosinophils Percent Auto 1.1 % (0-4.4); Hematocrit 31.2 % (37.0-47.0); Hemoglobin 10.6 g/dL (12.0-15.0); Immature Granulocyte Absolute 0.03 K/mm3 (0.00-0.031); Immature Granulocyte Percent A 0.4 % (0-0.5); Lymphocytes Absolute Auto 1.99 K/mm3 (0.9-3.2); Lymphocytes Percent Auto 24.4 % (18.3-44.2); Mean Corpuscular Hemoglobin 31.2 pg (26-34); Mean Corpuscular Volume 91.8 fl (80-100); Mean Platelet Volume 8.6 fl (7.4-10.4); Monocytes Absolute Auto 1.1 K/mm3 (0.1-0.6); Neutrophils Absolute Auto 4.9 K/mm3 (1.3-6.7); Neutrophils Percent Auto 60.6 % (45.5-73.1); Platelet Count Result 179 k/mm3 (150-375); Red Cell Distribution Width 12.2 % (11.5-14.5); White Blood Count 8.1 K/mm3 (4.5-10.0)
[2021-01-06 07:36] LABS: Anion Gap 2 mmol/L (8-16); Blood Urea Nitrogen 15 mg/dL (7-17); Calcium 8.4 mg/dL (8.4-10.2); Carbon Dioxide 28 mmol/L (22-30); Chloride 89 mmol/L (98-107); Estimated CRCL calculation 60 ml/min; Estimated Glomerular Filt Rate > 60; Glucose 89 mg/dL (65-110); Potassium 4.3 mmol/L (3.4-5.0); Sodium 119 mmol/L (137-145)
[2021-01-06] MEDS: carvediloL 3.125 MG TABLET PO ×2 (09:12→20:58)
[2021-01-06] MEDS: FLECAINIDE ACETATE 100 MG TABLET PO ×2 (09:12→17:57)
[2021-01-06] MEDS: FAMOTIDINE 20 MG TABLET PO ×2 (09:13→20:58)
[2021-01-06] MEDS: CHOLECALCIFEROL 1,000 UNITS TABLET 1000 UNITS PO (09:13)
[2021-01-06] MEDS: FLUTICASONE PROPIONATE 0.05% NA SPR 16 GM BTL (*BKC) 2 SPRAY NASAL (09:13)
[2021-01-06] MEDS: LOSARTAN POTASSIUM 100 MG TABLET PO (09:14)
[2021-01-06 10:33] LABS: Sodium 121 mmol/L (137-145)
--- NOTE | 2021-01-06 13:41 | PM.IMPN ---
Progress Note: A&P Assessment and Plan (1) Acute hyponatremia: Code(s): E87.1 - Hypo-osmolality and hyponatremia Status: Acute Assessment and Plan: Admission sodium level of 108. Nephrology following. Suspected secondary to hydrochlorothiazide as well as Lexapro. Patient treated with fluid restriction gentle hydration normal saline and continuous monitoring per Nephrology. Will not allow sodium correction for more than 6-8 mEq in 24 hour time. Continue to monitor neuro checks. Hyponatremia management poor nephrology team (2) Acute urinary retention: Code(s): R33.8 - Other retention of urine Status: Acute Assessment and Plan: Tolbert in place. (3) Paroxysmal atrial fibrillation: Code(s): I48.0 - Paroxysmal atrial fibrillation Status: Chronic Assessment and Plan: Continue flecainide Continue carvedilol and rivaroxaban Will place on telemetry monitoring due to bradycardia (4) Hypertension: Qualifiers: Hypertension type: unspecified Qualified Code(s): I10 - Essential (primary) hypertension Code(s): I10 - Essential (primary) hypertension Status: Acute Assessment and Plan: Continue carvedilol and losartan Continue to monitor hemodynamics closely. (5) COPD (chronic obstructive pulmonary disease): Qualifiers: COPD type: unspecified COPD Qualified Code(s): J44.9 - Chronic obstructive pulmonary disease, unspecified Code(s): J44.9 - Chronic obstructive pulmonary disease, unspecified Status: Chronic Assessment and Plan: Not actively wheezing Not on nebulizers at home Continue to monitor (6) Constipation: Qualifiers: Constipation type: unspecified constipation type Qualified Code(s): K59.00 - Constipation, unspecified Code(s): K59.00 - Constipation, unspecified Status: Acute Assessment and Plan: Will give a suppository already on MiraLax Subjective Date/time seen: 01/06/21 13:41 Interval history: Constipated since past 3 days no other new complaints. Feels weak but is getting better. Some nausea today but no vomiting. No fever chills. Sat up on the chair for couple of hours this morning Review of Systems Review of Systems: All systems reviewed & are unremarkable except as noted in HPI and below Exam Narrative: Patient is comfortable, NAD HEENT: eyes are clear and none icteric LUNGS:CTA no respiratory distress HEART: RR S1S2 ABD: BS+, Soft and nontender Lower extremities: no edema no cyanosis or clubbing SKIN: nonjaundiced Neuro: grossly intact. Alert and oriented x3 Objective Data Vital Signs Vital Signs: Vital Signs - 24 hr 01/05/21 14:00 01/05/21 17:51 01/05/21 20:00 Temperature 98.3 F Pulse Rate 58 L 60 53 L Respiratory Rate 16 Blood Pressure 118/47 L Pulse Oximetry 100 97 01/05/21 21:13 01/05/21 21:15 01/05/21 22:00 Temperature 97.5 F L 99.0 F Pulse Rate 53 L 53 L 51 L Respiratory Rate 16 18 Blood Pressure 114/41 L 109/40 L Pulse Oximetry 97 97 01/06/21 00:00 01/06/21 04:00 01/06/21 06:00 Temperature 98.1 F Pulse Rate 45 L 47 L 55 L Respiratory Rate 20 Blood Pressure 131/57 L Pulse Oximetry 97 01/06/21 09:12 01/06/21 12:00 Temperature Pulse Rate 55 L 52 L Respiratory Rate Blood Pressure Pulse Oximetry Intake/Output Intake/Output: Intake & Output 01/03/21 01/04/21 01/05/21 01/06/21 23:59 23:59 23:59 23:59 Intake Total 2430 770 1560 320 Output Total 2700 3750 2100 400 Balance -270 -2980 -540 -80 Meds/Results Medications: Active Medications Generic Name Dose Route Start Last Admin Trade Name Freq PRN Reason Stop Dose Admin Acetaminophen 500 mg 01/03/21 03:46 Acetaminophen 500 Mg Tablet PO Q6H PRN Pain Rated 1-3 Albuterol 1 - 2 puff 01/03/21 03:46 Albuterol Sulfate (*Sp) Aerosol 1 Puff INHALATION Q4H PRN shortness of breath or wheezi
[2021-01-06 13:49] LABS: Sodium 117 mmol/L (137-145)
[2021-01-06] MEDS: BISACODYL 10 MG SUPPOSITORY RECTAL (14:09)
[2021-01-06] MEDS: SODIUM CHLORIDE 3% 500 ML 60 ML IV CONT (14:27)
--- NOTE | 2021-01-06 16:34 | PM.PNNEP ---
Progress Note: A&P Assessment and Plan (1) Acute hyponatremia: Code(s): E87.1 - Hypo-osmolality and hyponatremia Status: Acute Assessment and Plan: acute but has had this in the past as well multifactorial: - HCTZ use (she was discontinued on this medication the last time she had hyponatremia on her last hosptialization) - excess free water intake (did not continue her 1500cc fluid restriction as outlined on discharge on last hospitalization) - use of lexapro and omeprazole may have contributed - known history of COPD goal of therapy is a rate of change of 4 - 6mmol/L (but no more than 8mmol/L) in 24 hour period of time off lexapro and HCTZ at this time may need to give a run of 3% saline to get sodium to go in the right direction follow trend of repeat sodium levels (2) Hypertension: Qualifiers: Hypertension type: unspecified Qualified Code(s): I10 - Essential (primary) hypertension Code(s): I10 - Essential (primary) hypertension Status: Acute Assessment and Plan: quite erratic which is a chronic issue/problems better at this time follow trend of hemodynamics (3) COPD (chronic obstructive pulmonary disease): Qualifiers: COPD type: unspecified COPD Qualified Code(s): J44.9 - Chronic obstructive pulmonary disease, unspecified Code(s): J44.9 - Chronic obstructive pulmonary disease, unspecified Status: Chronic Assessment and Plan: appears relatively stable likely playing a role with #1 Will continue to follow. Subjective Date/time seen: 01/06/21 16:34 Nol new issues or problems; sodium remains quite erratic at this time; continues to remain asymptomatic; feels reasonably well; no events overnight or earlier this AM. Exam Narrative: General: WD/WN female in NAD Heart: normal S1 and S2; no rub Lungs: clear to auscultation Abdomen: soft, nontender, nondistended, positive bowel sounds Extremities: no cyanosis or clubbing; no edema Skin: no rash Objective Data Vital Signs Vital Signs: Vital Signs Temp Pulse Resp BP Pulse Ox 01/06/21 14:00 36.4 C 58 L 16 115/38 L 100 01/06/21 12:00 52 L 01/06/21 09:12 55 L 01/06/21 06:00 36.7 C 55 L 20 131/57 L 97 01/06/21 04:00 47 L 01/06/21 00:00 45 L 01/05/21 22:00 37.2 C 51 L 18 109/40 L 97 01/05/21 21:15 53 L 01/05/21 21:13 36.4 C L 53 L 16 114/41 L 97 01/05/21 20:00 53 L 97 Intake/Output Intake/Output: Intake & Output 01/03/21 01/04/21 01/05/21 01/06/21 23:59 23:59 23:59 23:59 Intake Total 2430 770 1560 860 Output Total 2700 3750 2100 1250 Balance -270 -2980 -540 -390 Meds/Results Medications: Active Medications Generic Name Dose Route Start Last Admin Trade Name Freq PRN Reason Stop Dose Admin Acetaminophen 500 mg 01/03/21 03:46 Acetaminophen 500 Mg Tablet PO Q6H PRN Pain Rated 1-3 Albuterol 1 - 2 puff 01/03/21 03:46 Albuterol Sulfate (*Sp) Aerosol 1 Puff INHALATION Q4H PRN shortness of breath or wheezing Artificial Tears 1 drop 01/03/21 03:46 Artificial Tears Ophth Soln 15 Ml Bottle LEFT EYE DAILY PRN Dry Eye(S) Carvedilol 3.125 mg 01/03/21 09:00 01/06/21 09:12 Carvedilol 3.125 Mg Tablet PO 3.125 mg Q12HR MARTIN Administration Cephalexin HCl 500 mg 01/03/21 06:00 01/06/21 17:57 Cephalexin 500 Mg Capsule PO 01/07/21 18:01 500 mg Q12H MARTIN Administration Famotidine 20 mg 01/03/21 21:00 01/06/21 09:13 Famotidine 20 Mg Tablet PO 20 mg Q12HR MARTIN Administration Flecainide Acetate 100 mg 01/03/21 09:00 01/06/21 17:57 Flecainide Acetate 100 Mg Tablet PO 100 mg BID MARTIN Administration Fluticasone Propionate 2 spray 01/03/21 09:00 01/06/21 09:13 Fluticasone Propionate 0.05% Na Spr 16 Gm Btl (*Bkc) NASAL 2 spray DAILY MARTIN Administration Hyd
[2021-01-06] MEDS: RIVAROXABAN 15 MG TABLET PO (17:58)
[2021-01-06 19:42] LABS: Sodium 121 mmol/L (137-145)
[2021-01-07] VITALS (13 sets, daily range): BP systolic 112–120; BP diastolic 45–49; PULSE 41–58; RESP 16–18; TEMP 36.3–36.6; O2SAT 97–100
[2021-01-07 01:11] LABS: Sodium 120 mmol/L (137-145)
[2021-01-07] MEDS: CEPHALEXIN 500 MG CAPSULE PO ×2 (05:37→17:35)
[2021-01-07 06:27] LABS: Basophils Percent Auto 0.4 % (0.2-1.2); Eosinophils Absolute Auto 0.1 K/mm3 (0-0.3); Eosinophils Percent Auto 1.3 % (0-4.4); Hematocrit 31.8 % (37.0-47.0); Hemoglobin 10.8 g/dL (12.0-15.0); Immature Granulocyte Absolute 0.03 K/mm3 (0.00-0.031); Immature Granulocyte Percent A 0.4 % (0-0.5); Lymphocytes Absolute Auto 2.37 K/mm3 (0.9-3.2); Lymphocytes Percent Auto 31.6 % (18.3-44.2); Mean Corpuscular Hemoglobin 31.8 pg (26-34); Mean Corpuscular Volume 93.5 fl (80-100); Mean Platelet Volume 8.7 fl (7.4-10.4); Monocytes Absolute Auto 0.9 K/mm3 (0.1-0.6); Monocytes Percent Auto 11.7 % (2.6-8.5); Neutrophils Absolute Auto 4.1 K/mm3 (1.3-6.7); Neutrophils Percent Auto 54.6 % (45.5-73.1); Platelet Count Result 202 k/mm3 (150-375); Red Cell Distribution Width 12.3 % (11.5-14.5); White Blood Count 7.5 K/mm3 (4.5-10.0)
[2021-01-07 06:48] LABS: Osmolality, Urine 208 mOsm/kg (50-1200)
[2021-01-07 08:47] LABS: Sodium 128 mmol/L (137-145)
[2021-01-07] MEDS: FLUTICASONE PROPIONATE 0.05% NA SPR 16 GM BTL (*BKC) 2 SPRAY NASAL (10:04)
[2021-01-07] MEDS: FLECAINIDE ACETATE 100 MG TABLET PO ×2 (10:04→17:36)
[2021-01-07] MEDS: carvediloL 3.125 MG TABLET PO (10:05)
[2021-01-07] MEDS: FAMOTIDINE 20 MG TABLET PO ×2 (10:05→22:10)
[2021-01-07] MEDS: LOSARTAN POTASSIUM 100 MG TABLET PO (10:05)
[2021-01-07] MEDS: CHOLECALCIFEROL 1,000 UNITS TABLET 1000 UNITS PO (10:05)
[2021-01-07 10:30] LABS: Anion Gap 4 mmol/L (8-16); Blood Urea Nitrogen 13 mg/dL (7-17); Calcium 8.7 mg/dL (8.4-10.2); Carbon Dioxide 29 mmol/L (22-30); Chloride 96 mmol/L (98-107); Estimated CRCL calculation 60 ml/min; Estimated Glomerular Filt Rate > 60; Glucose 136 mg/dL (65-110); Potassium 4.3 mmol/L (3.4-5.0); Sodium 129 mmol/L (137-145)
[2021-01-07] MEDS: DEXTROSE 5% IN WATER 1,000 ML 200 ML IV CONT (11:50)
[2021-01-07] MEDS: polyethylene glycoL 3350 17 GM POWD.PACK PO ×2 (11:57→18:08)
--- NOTE | 2021-01-07 12:00 | PM.IMPN ---
Progress Note: A&P Assessment and Plan (1) UTI (urinary tract infection): Code(s): N39.0 - Urinary tract infection, site not specified Status: Acute (2) Nausea: Code(s): R11.0 - Nausea Status: Acute (3) Acute hyponatremia: Code(s): E87.1 - Hypo-osmolality and hyponatremia Status: Acute Assessment and Plan: Admission sodium level of 108. Nephrology following. Suspected secondary to hydrochlorothiazide as well as Lexapro. Patient treated with fluid restriction gentle hydration normal saline and continuous monitoring per Nephrology. Will not allow sodium correction for more than 6-8 mEq in 24 hour time. Continue to monitor neuro checks. Hyponatremia management poor nephrology team (4) Acute urinary retention: Code(s): R33.8 - Other retention of urine Status: Acute Assessment and Plan: Tolbert in place. (5) Hypertension: Qualifiers: Hypertension type: unspecified Qualified Code(s): I10 - Essential (primary) hypertension Code(s): I10 - Essential (primary) hypertension Status: Acute (6) Constipation: Qualifiers: Constipation type: unspecified constipation type Qualified Code(s): K59.00 - Constipation, unspecified Code(s): K59.00 - Constipation, unspecified Status: Acute Assessment and Plan: Will give a suppository already on MiraLax (7) Sinus bradycardia: Code(s): R00.1 - Bradycardia, unspecified Status: Chronic (8) COPD (chronic obstructive pulmonary disease): Qualifiers: COPD type: unspecified COPD Qualified Code(s): J44.9 - Chronic obstructive pulmonary disease, unspecified Code(s): J44.9 - Chronic obstructive pulmonary disease, unspecified Status: Chronic Assessment and Plan: Not actively wheezing Not on nebulizers at home Continue to monitor (9) Atrial fibrillation: Code(s): I48.91 - Unspecified atrial fibrillation Status: Acute Assessment and Plan: Now sinus rhythm with bradycardia (10) Weakness: Code(s): R53.1 - Weakness Status: Acute Assessment and Plan: PT OT evaluated suggestive home Subjective Date/time seen: 01/07/21 12:00 Interval history: She is feeling okay. She is more alert today PT OT has advise she could go home with no needs. She still has not had a good bowel movement. With suppository she did have a little yesterday Review of Systems Review of Systems: All systems reviewed & are unremarkable except as noted in HPI and below (HPI) Exam Narrative: Patient is comfortable, NAD HEENT: eyes are clear and none icteric LUNGS:CTA no respiratory distress HEART: RR S1S2 ABD: BS+, Soft and nontender Lower extremities: no edema no cyanosis or clubbing SKIN: nonjaundiced Neuro: grossly intact. Alert and oriented x3 Objective Data Vital Signs Vital Signs: Vital Signs - 24 hr 01/06/21 14:00 01/06/21 17:57 01/06/21 20:00 Temperature 97.6 F Pulse Rate 58 L 55 L 54 L Respiratory Rate 16 Blood Pressure 115/38 L Pulse Oximetry 100 01/06/21 20:14 01/06/21 20:58 01/07/21 00:00 Temperature 97.7 F Pulse Rate 52 L 52 L 48 L Respiratory Rate 18 Blood Pressure 105/45 L Pulse Oximetry 98 01/07/21 04:00 01/07/21 05:38 01/07/21 08:00 Temperature 98 F Pulse Rate 44 L 51 L 56 L Respiratory Rate 16 Blood Pressure 112/48 L Pulse Oximetry 98 01/07/21 10:04 01/07/21 10:05 Temperature Pulse Rate 54 L 54 L Respiratory Rate Blood Pressure Pulse Oximetry Intake/Output Intake/Output: Intake & Output 01/04/21 01/05/21 01/06/21 01/07/21 23:59 23:59 23:59 23:59 Intake Total 770 1560 860 490 Output Total 3750 2100 1675 1650 [facility]2980 -540 [phone] -1160 Meds/Results Medications: Active Medications Generic Name Dose Route Start Last Admin Trade Name Freq PRN Reason Stop Dose Admin Acetaminophen 500 mg 01/03/21 03:46
--- NOTE | 2021-01-07 14:38 | PM.PNNEP ---
Progress Note: A&P Assessment and Plan (1) Acute hyponatremia: Code(s): E87.1 - Hypo-osmolality and hyponatremia Status: Acute Assessment and Plan: acute but has had this in the past as well multifactorial: - HCTZ use (she was discontinued on this medication the last time she had hyponatremia on her last hosptialization) - excess free water intake (did not continue her 1500cc fluid restriction as outlined on discharge on last hospitalization) - use of lexapro and omeprazole may have contributed - known history of COPD goal of therapy is a rate of change of 4 - 6mmol/L (but no more than 8mmol/L) in 24 hour period of time off lexapro and HCTZ at this time s/p 3% saline with appropriate response follow trend of repeat sodium levels (2) Hypertension: Qualifiers: Hypertension type: unspecified Qualified Code(s): I10 - Essential (primary) hypertension Code(s): I10 - Essential (primary) hypertension Status: Acute Assessment and Plan: quite erratic which is a chronic issue/problems better at this time follow trend of hemodynamics (3) COPD (chronic obstructive pulmonary disease): Qualifiers: COPD type: unspecified COPD Qualified Code(s): J44.9 - Chronic obstructive pulmonary disease, unspecified Code(s): J44.9 - Chronic obstructive pulmonary disease, unspecified Status: Chronic Assessment and Plan: appears relatively stable likely playing a role with #1 Will continue to follow. Subjective Date/time seen: 01/07/21 14:38 Received 3% saline yesterday due to dropping sodium levels with reasonably response and no overcorrection; remains asymptomatic and in no apparent distress; no other issues/events overnight or earlier this AM; no other complaints voiced. Exam Narrative: General: WD/WN female in NAD Heart: normal S1 and S2; no rub Lungs: clear to auscultation Abdomen: soft, nontender, nondistended, positive bowel sounds Extremities: no cyanosis or clubbing; no edema Skin: no nodules Objective Data Vital Signs Vital Signs: Vital Signs Temp Pulse Resp BP Pulse Ox 01/07/21 14:00 36.3 C L 58 L 18 120/45 L 100 01/07/21 12:00 51 L 01/07/21 10:05 54 L 01/07/21 10:04 54 L 01/07/21 08:00 56 L 01/07/21 05:38 36.6 C 51 L 16 112/48 L 98 01/07/21 04:00 44 L 01/07/21 00:00 48 L 01/06/21 20:58 52 L 01/06/21 20:14 36.5 C 52 L 18 105/45 L 98 01/06/21 20:00 54 L 01/06/21 17:57 55 L Intake/Output Intake/Output: Intake & Output 01/04/21 01/05/21 01/06/21 01/07/21 23:59 23:59 23:59 23:59 Intake Total 770 1915 629 4821 Output Total 3750 2100 1673 1650 Balance -2980 -540 -815 -320 Meds/Results Medications: Active Medications Generic Name Dose Route Start Last Admin Trade Name Freq PRN Reason Stop Dose Admin Acetaminophen 500 mg 01/03/21 03:46 Acetaminophen 500 Mg Tablet PO Q6H PRN Pain Rated 1-3 Albuterol 1 - 2 puff 01/03/21 03:46 Albuterol Sulfate (*Sp) Aerosol 1 Puff INHALATION Q4H PRN shortness of breath or wheezing Artificial Tears 1 drop 01/03/21 03:46 Artificial Tears Ophth Soln 15 Ml Bottle LEFT EYE DAILY PRN Dry Eye(S) Carvedilol 3.125 mg 01/03/21 09:00 01/07/21 10:05 Carvedilol 3.125 Mg Tablet PO 3.125 mg Q12HR MARTIN Administration Cephalexin HCl 500 mg 01/03/21 06:00 01/07/21 05:37 Cephalexin 500 Mg Capsule PO 01/07/21 18:01 500 mg Q12H MARTIN Administration Famotidine 20 mg 01/03/21 21:00 01/07/21 10:05 Famotidine 20 Mg Tablet PO 20 mg Q12HR MARTIN Administration Flecainide Acetate 100 mg 01/03/21 09:00 01/07/21 10:04 Flecainide Acetate 100 Mg Tablet PO 100 mg BID MARTIN Administration Fluticasone Propionate 2 spray 01/03/21 09:00 01/07/21 10:04 Fluticasone Propionate 0.05% Na Spr 16 Gm
[2021-01-07 17:09] LABS: Anion Gap 2 mmol/L (8-16); Blood Urea Nitrogen 17 mg/dL (7-17); Calcium 8.7 mg/dL (8.4-10.2); Carbon Dioxide 32 mmol/L (22-30); Chloride 91 mmol/L (98-107); Estimated CRCL calculation 52 ml/min; Estimated Glomerular Filt Rate > 60; Glucose 91 mg/dL (65-110); Potassium 4.3 mmol/L (3.4-5.0); Sodium 125 mmol/L (137-145)
[2021-01-07] MEDS: RIVAROXABAN 15 MG TABLET PO (17:38)
[2021-01-07 22:05] LABS: Sodium 128 mmol/L (137-145)
[2021-01-07] MEDS: ACETAMINOPHEN 500 MG TABLET PO (22:08)
[2021-01-07] MEDS: BISACODYL 10 MG SUPPOSITORY RECTAL (22:37)
[2021-01-08] VITALS (13 sets, daily range): BP systolic 122–155; BP diastolic 43–57; PULSE 42–66; RESP 14–18; TEMP 36.2–36.9; O2SAT 97–100
[2021-01-08 07:13] LABS: Basophils Percent Auto 0.5 % (0.2-1.2); Eosinophils Absolute Auto 0.1 K/mm3 (0-0.3); Eosinophils Percent Auto 1.4 % (0-4.4); Hemoglobin 10.9 g/dL (12.0-15.0); Immature Granulocyte Absolute 0.03 K/mm3 (0.00-0.031); Immature Granulocyte Percent A 0.4 % (0-0.5); Lymphocytes Absolute Auto 2.32 K/mm3 (0.9-3.2); Lymphocytes Percent Auto 30.4 % (18.3-44.2); Mean Corpuscular HGB Conc 34.1 g/dl (32-36); Mean Corpuscular Hemoglobin 31.5 pg (26-34); Mean Corpuscular Volume 92.5 fl (80-100); Mean Platelet Volume 8.8 fl (7.4-10.4); Monocytes Absolute Auto 0.8 K/mm3 (0.1-0.6); Neutrophils Absolute Auto 4.3 K/mm3 (1.3-6.7); Neutrophils Percent Auto 56.3 % (45.5-73.1); Platelet Count Result 215 k/mm3 (150-375); Red Blood Count 3.46 M/mm3 (4.2-5.4); Red Cell Distribution Width 12.3 % (11.5-14.5); White Blood Count 7.6 K/mm3 (4.5-10.0)
[2021-01-08] MEDS: ACETAMINOPHEN 500 MG TABLET PO ×3 (07:19→21:01)
[2021-01-08 07:40] LABS: Anion Gap 3 mmol/L (8-16); Blood Urea Nitrogen 16 mg/dL (7-17); Calcium 9.1 mg/dL (8.4-10.2); Carbon Dioxide 33 mmol/L (22-30); Chloride 94 mmol/L (98-107); Estimated CRCL calculation 52 ml/min; Estimated Glomerular Filt Rate > 60; Glucose 73 mg/dL (65-110); Potassium 4.6 mmol/L (3.4-5.0); Sodium 130 mmol/L (137-145)
[2021-01-08] MEDS: FAMOTIDINE 20 MG TABLET PO ×2 (09:04→20:59)
[2021-01-08] MEDS: CHOLECALCIFEROL 1,000 UNITS TABLET 1000 UNITS PO (09:04)
[2021-01-08] MEDS: LOSARTAN POTASSIUM 100 MG TABLET PO (09:08)
[2021-01-08] MEDS: FLECAINIDE ACETATE 100 MG TABLET PO ×2 (09:08→17:11)
[2021-01-08] MEDS: FLUTICASONE PROPIONATE 0.05% NA SPR 16 GM BTL (*BKC) 2 SPRAY NASAL (09:09)
--- NOTE | 2021-01-08 10:39 | PM.PNNEP ---
Progress Note: A&P Assessment and Plan (1) Acute hyponatremia: Code(s): E87.1 - Hypo-osmolality and hyponatremia Status: Acute Assessment and Plan: acute but has had this in the past as well multifactorial: - HCTZ use (she was discontinued on this medication the last time she had hyponatremia on her last hosptialization) - excess free water intake (did not continue her 1500cc fluid restriction as outlined on discharge on last hospitalization) - use of lexapro and omeprazole may have contributed - known history of COPD goal of therapy is a rate of change of 4 - 6mmol/L (but no more than 8mmol/L) in 24 hour period of time off lexapro and HCTZ at this time s/p 3% saline during this hospital stay follow trend of repeat sodium levels (2) Hypertension: Qualifiers: Hypertension type: unspecified Qualified Code(s): I10 - Essential (primary) hypertension Code(s): I10 - Essential (primary) hypertension Status: Acute Assessment and Plan: quite erratic which is a chronic issue/problems better at this time follow trend of hemodynamics (3) COPD (chronic obstructive pulmonary disease): Qualifiers: COPD type: unspecified COPD Qualified Code(s): J44.9 - Chronic obstructive pulmonary disease, unspecified Code(s): J44.9 - Chronic obstructive pulmonary disease, unspecified Status: Chronic Assessment and Plan: appears relatively stable likely playing a role with #1 Would not be opposed to discharge if repeat sodiums remains stable from this AM. Will continue to follow. Subjective Date/time seen: 01/08/21 10:39 Working with PT/OT at the time of my visit; sodium levels have improved nicely in the last 24 hours; no apparent distress voiced at the time of my visit; no issues or events overnight or earlier this AM. Exam Narrative: General: WD/WN female in NAD Heart: normal S1 and S2; no rub Lungs: clear to auscultation Abdomen: soft, nontender, nondistended, positive bowel sounds Extremities: no cyanosis or clubbing; no edema Skin: no nodules Objective Data Vital Signs Vital Signs: Vital Signs Temp Pulse Resp BP Pulse Ox 01/08/21 09:08 55 L 01/08/21 09:00 54 L 122/43 L 01/08/21 08:55 58 L 01/08/21 06:00 36.2 C L 42 L 18 134/43 L 99 01/08/21 04:00 42 L 01/08/21 00:00 46 L 01/07/21 22:10 48 L 01/07/21 22:00 36.5 C 41 L 18 120/49 L 97 01/07/21 20:10 48 L 18 97 01/07/21 17:36 52 L 01/07/21 16:00 53 L 01/07/21 14:00 36.3 C L 58 L 18 120/45 L 100 Intake/Output Intake/Output: Intake & Output 01/05/21 01/06/21 01/07/21 01/08/21 23:59 23:59 23:59 23:59 Intake Total 3326 606 1225 240 Output Total 2100 1675 2600 1400 Icrrpdo -540 -815 -1030 -1160 Meds/Results Medications: Active Medications Generic Name Dose Route Start Last Admin Trade Name Freq PRN Reason Stop Dose Admin Acetaminophen 500 mg 01/03/21 03:46 01/08/21 07:19 Acetaminophen 500 Mg Tablet PO 500 mg Q6H PRN Administration Pain Rated 1-3 Albuterol 1 - 2 puff 01/03/21 03:46 Albuterol Sulfate (*Sp) Aerosol 1 Puff INHALATION Q4H PRN shortness of breath or wheezing Artificial Tears 1 drop 01/03/21 03:46 Artificial Tears Ophth Soln 15 Ml Bottle LEFT EYE DAILY PRN Dry Eye(S) Carvedilol 3.125 mg 01/03/21 09:00 01/08/21 09:09 Carvedilol 3.125 Mg Tablet PO Not Given Q12HR MARTIN Famotidine 20 mg 01/03/21 21:00 01/08/21 09:04 Famotidine 20 Mg Tablet PO 20 mg Q12HR MARTIN Administration Flecainide Acetate 100 mg 01/03/21 09:00 01/08/21 09:08 Flecainide Acetate 100 Mg Tablet PO 100 mg BID MARTIN Administration Fluticasone Propionate 2 spray 01/03/21 09:00 01/08/21 09:09 Fluticasone Propionate 0.05% Na Spr 16 Gm Btl (*Bkc) NASAL 2 spray DAILY MARTIN Adminis
[2021-01-08 12:49] LABS: Anion Gap 6 mmol/L (8-16); Blood Urea Nitrogen 18 mg/dL (7-17); Calcium 9.4 mg/dL (8.4-10.2); Carbon Dioxide 29 mmol/L (22-30); Chloride 89 mmol/L (98-107); Estimated CRCL calculation 52 ml/min; Estimated Glomerular Filt Rate > 60; Glucose 98 mg/dL (65-110); Potassium 4.5 mmol/L (3.4-5.0); Sodium 124 mmol/L (137-145)
[2021-01-08 13:55] LABS: Renin 4.25 ng/mL/h (0.25-5.82)
--- NOTE | 2021-01-08 15:06 | PM.IMPN ---
Progress Note: A&P Assessment and Plan (1) UTI (urinary tract infection): Code(s): N39.0 - Urinary tract infection, site not specified Status: Acute (2) Nausea: Code(s): R11.0 - Nausea Status: Acute (3) Acute hyponatremia: Code(s): E87.1 - Hypo-osmolality and hyponatremia Status: Acute Assessment and Plan: Admission sodium level of 108. Nephrology following. Suspected secondary to hydrochlorothiazide as well as Lexapro. Patient treated with fluid restriction gentle hydration normal saline and continuous monitoring per Nephrology. Will not allow sodium correction for more than 6-8 mEq in 24 hour time. Continue to monitor neuro checks. Hyponatremia management poor nephrology team (4) Acute urinary retention: Code(s): R33.8 - Other retention of urine Status: Acute Assessment and Plan: Tolbert in place. Will remove the Tolbert catheter and voiding trial (5) Hypertension: Qualifiers: Hypertension type: unspecified Qualified Code(s): I10 - Essential (primary) hypertension Code(s): I10 - Essential (primary) hypertension Status: Acute (6) Constipation: Qualifiers: Constipation type: unspecified constipation type Qualified Code(s): K59.00 - Constipation, unspecified Code(s): K59.00 - Constipation, unspecified Status: Acute Assessment and Plan: Will give a suppository already on MiraLax (7) Sinus bradycardia: Code(s): R00.1 - Bradycardia, unspecified Status: Chronic (8) COPD (chronic obstructive pulmonary disease): Qualifiers: COPD type: unspecified COPD Qualified Code(s): J44.9 - Chronic obstructive pulmonary disease, unspecified Code(s): J44.9 - Chronic obstructive pulmonary disease, unspecified Status: Chronic Assessment and Plan: Not actively wheezing Not on nebulizers at home Continue to monitor (9) Atrial fibrillation: Code(s): I48.91 - Unspecified atrial fibrillation Status: Acute Assessment and Plan: Now sinus rhythm with bradycardia (10) Weakness: Code(s): R53.1 - Weakness Status: Acute Assessment and Plan: PT OT evaluated suggestive home Subjective Date/time seen: 01/08/21 15:06 Interval history: No new complaints. Feeling okay. Sitting in the chair. Eager to go home. Sodium level has improved Review of Systems Review of Systems: All systems reviewed & are unremarkable except as noted in HPI and below (HPI) Exam Narrative: Patient is comfortable, NAD HEENT: eyes are clear and none icteric LUNGS:CTA no respiratory distress HEART: RR S1S2 ABD: BS+, Soft and nontender Lower extremities: no edema no cyanosis or clubbing SKIN: nonjaundiced Neuro: grossly intact. Alert and oriented x3 Objective Data Vital Signs Vital Signs: Vital Signs - 24 hr 01/07/21 16:00 01/07/21 17:36 01/07/21 20:10 Temperature Pulse Rate 53 L 52 L 48 L Respiratory Rate 18 Blood Pressure Pulse Oximetry 97 01/07/21 22:00 01/07/21 22:10 01/08/21 00:00 Temperature 97.7 F Pulse Rate 41 L 48 L 46 L Respiratory Rate 18 Blood Pressure 120/49 L Pulse Oximetry 97 01/08/21 04:00 01/08/21 06:00 01/08/21 08:55 Temperature 97.1 F L Pulse Rate 42 L 42 L 58 L Respiratory Rate 18 Blood Pressure 134/43 L Pulse Oximetry 99 01/08/21 09:00 01/08/21 09:08 01/08/21 12:00 Temperature Pulse Rate 54 L 55 L 56 L Respiratory Rate Blood Pressure 122/43 L Pulse Oximetry 01/08/21 13:58 Temperature 98.5 F Pulse Rate 66 Respiratory Rate 14 Blood Pressure 155/57 H Pulse Oximetry 100 Intake/Output Intake/Output: Intake & Output 01/05/21 01/06/21 01/07/21 01/08/21 23:59 23:59 23:59 23:59 Intake Total 0111 360 6654 480 Output Total 2100 1675 2600 1400 [facility] -540 -815 -1030 -920 Meds/Results Medications: Active Medications Generic Name Dose Route Star
[2021-01-08] MEDS: RIVAROXABAN 15 MG TABLET PO (17:11)
[2021-01-08 18:26] LABS: Sodium 129 mmol/L (137-145)
[2021-01-08] MEDS: carvediloL 3.125 MG TABLET PO (20:59)
[2021-01-08] MEDS: polyethylene glycoL 3350 17 GM POWD.PACK PO (20:59)
[2021-01-08 22:29] LABS: Sodium 125 mmol/L (137-145)
[2021-01-09] VITALS: PULSE 50
[2021-01-09 04:00] VITALS: PULSE 47
[2021-01-09 06:00] VITALS: BP 123/52; PULSE 55; RESP 16; TEMP 36.4; O2SAT 97
[2021-01-09 08:00] VITALS: PULSE 43
[2021-01-09 08:06] VITALS: PULSE 51
[2021-01-09] MEDS: FLECAINIDE ACETATE 100 MG TABLET PO (08:06)
[2021-01-09 08:07] VITALS: PULSE 51
[2021-01-09] MEDS: FAMOTIDINE 20 MG TABLET PO (08:07)
[2021-01-09] MEDS: LOSARTAN POTASSIUM 100 MG TABLET PO (08:07)
[2021-01-09] MEDS: carvediloL 3.125 MG TABLET PO (08:07)
[2021-01-09] MEDS: FLUTICASONE PROPIONATE 0.05% NA SPR 16 GM BTL (*BKC) 2 SPRAY NASAL (08:08)
[2021-01-09] MEDS: CHOLECALCIFEROL 1,000 UNITS TABLET 1000 UNITS PO (08:08)
[2021-01-09 08:39] LABS: Anion Gap 5 mmol/L (8-16); Blood Urea Nitrogen 18 mg/dL (7-17); Calcium 9.1 mg/dL (8.4-10.2); Carbon Dioxide 29 mmol/L (22-30); Chloride 97 mmol/L (98-107); Estimated CRCL calculation 52 ml/min; Estimated Glomerular Filt Rate > 60; Glucose 84 mg/dL (65-110); Potassium 4.7 mmol/L (3.4-5.0); Sodium 131 mmol/L (137-145)
[2021-01-09] MEDS: ACETAMINOPHEN 500 MG TABLET PO ×2 (09:07→09:57)
--- NOTE | 2021-01-09 10:10 | PM.PNNEP ---
Progress Note: A&P Assessment and Plan (1) Acute hyponatremia: Code(s): E87.1 - Hypo-osmolality and hyponatremia Status: Acute Assessment and Plan: acute but has had this in the past as well multifactorial: - HCTZ use (she was discontinued on this medication the last time she had hyponatremia on her last hosptialization) - excess free water intake (did not continue her 1500cc fluid restriction as outlined on discharge on last hospitalization) - use of lexapro and omeprazole may have contributed - known history of COPD goal of therapy is a rate of change of 4 - 6mmol/L (but no more than 8mmol/L) in 24 hour period of time off lexapro and HCTZ at this time s/p 3% saline during this hospital stay continue fluid restriction follow trend of repeat sodium levels (2) Hypertension: Qualifiers: Hypertension type: unspecified Qualified Code(s): I10 - Essential (primary) hypertension Code(s): I10 - Essential (primary) hypertension Status: Acute Assessment and Plan: quite erratic which is a chronic issue/problems better at this time follow trend of hemodynamics (3) COPD (chronic obstructive pulmonary disease): Qualifiers: COPD type: unspecified COPD Qualified Code(s): J44.9 - Chronic obstructive pulmonary disease, unspecified Code(s): J44.9 - Chronic obstructive pulmonary disease, unspecified Status: Chronic Assessment and Plan: appears relatively stable likely playing a role with #1 Would not be opposed to discharge today -- she will need to remain off HCTZ (and SSRI if possible) and I suggest she be on a 1500cc fluid restriction as well. Will continue to follow. Subjective Date/time seen: 01/09/21 10:10 No new issues or problems overnight or earlier this AM; sodium continues to fluctuate but seems a bit more stable by AM labs; no real intervention done recently other than be more aggressive with free water fluid restriction; no apparent distress voiced at this time. Exam Narrative: General: WD/WN female in NAD Heart: normal S1 and S2; no rub Lungs: clear to auscultation Abdomen: soft, nontender, nondistended, positive bowel sounds Extremities: no cyanosis or clubbing; no edema Skin: warm and dry Objective Data Vital Signs Vital Signs: Vital Signs Temp Pulse Resp BP Pulse Ox 01/09/21 08:07 51 L 01/09/21 08:06 51 L 01/09/21 06:00 36.4 C L 55 L 16 123/52 L 97 01/09/21 04:00 47 L 01/09/21 00:00 50 L 01/08/21 21:48 36.7 C 51 L 16 137/57 L 97 01/08/21 20:59 62 01/08/21 20:00 54 L 01/08/21 17:11 55 L 01/08/21 16:00 48 L 01/08/21 13:58 36.9 C 66 14 155/57 H 100 01/08/21 12:00 56 L Intake/Output Intake/Output: Intake & Output 01/06/21 01/07/21 01/08/21 01/09/21 23:59 23:59 23:59 23:59 Intake Total 860 1570 1110 300 Output Total 1675 2600 1400 Balance -815 1030 -290 300 Meds/Results Medications: Active Medications Generic Name Dose Route Start Last Admin Trade Name [place] PRN Reason Stop Dose Admin Acetaminophen 500 mg 01/03/21 03:46 01/09/21 09:07 Acetaminophen 500 Mg Tablet PO 500 mg Q6H PRN Administration Pain Rated 1-3 Albuterol 1 - 2 puff 01/03/21 03:46 Albuterol Sulfate (*Sp) Aerosol 1 Puff INHALATION Q4H PRN shortness of breath or wheezing Artificial Tears 1 drop 01/03/21 03:46 Artificial Tears Ophth Soln 15 Ml Bottle LEFT EYE DAILY PRN Dry Eye(S) Carvedilol 3.125 mg 01/03/21 09:00 01/09/21 08:07 Carvedilol 3.125 Mg Tablet PO 3.125 mg Q12HR MARTIN Administration Famotidine 20 mg 01/03/21 21:00 01/09/21 08:07 Famotidine 20 Mg Tablet PO 20 mg Q12HR MARTIN Administration Flecainide Acetate 100 mg 01/03/21 09:00 01/09/21 08:06 Flecainide Acetate 100 Mg Tablet PO 100 mg BID MARTIN Administratio
--- NOTE | 2021-01-09 10:35 | PM.DS ---
DS: Admitting Diagnosis Admitting Diagnosis Generalized weakness DS: Discharge Diagnosis Discharge Diagnosis (1) Acute hyponatremia: Code(s): E87.1 - Hypo-osmolality and hyponatremia Status: Acute DS: Summary Hospital Course Hospital Course: This is an 80-year-old woman with past medical history of COPD, migraine, atrial fibrillation, and history of TIA, presented to the emergency department on 01/02/2021 with generalized weakness, nausea, and vomiting and was found to have sodium of 108, and was subsequently admitted for management. Nephrology was consulted to help with the management of hyponatremia. Initially she was on 3% hypertonic saline and then transition to fluid restriction. It was noted that she was recently re-initiated on hydrochlorothiazide and Lexapro and these were held. Her sodium corrected slowly and appropriately in time, and at the time of discharge it was 131. Her nausea, vomiting, and weakness also resolved. It was felt per Nephrology that this is the best she will get as she has had some chronic hyponatremia with mildly decreased sodium. It was felt that she is appropriate for discharge. She was evaluated by Physical therapy and was deemed appropriate to return to home with self-care. Time Spent with Patient Time attestation: Total time spent providing and/or coordinating discharge services: 35 Exam Narrative: Gen: Alert, NAD Abd: Soft, NT, ND Heart: RRR Lungs: CTAB Ext: No lower extremity edema DS: Data Data Completed and Pending Labs on day of discharge: Labs from last 24 hours 01/09/21 01/08/21 01/08/21 07:29 22:18 17:58 Sodium 131 L 125 L 129 L Potassium 4.7 Chloride 97 L Carbon Dioxide 29 Anion Gap 5 L BUN 18 H Creatinine 0.70 Estim Creat Clear Calc 52 Estimated GFR > 60 Glucose 84 Calcium 9.1 Renin Aldosterone 01/08/21 01/03/21 01/03/21 12:27 17:16 17:16 Sodium 124 L Potassium 4.5 Chloride 89 L Carbon Dioxide 29 Anion Gap 6 L BUN 18 H Creatinine 0.70 Estim Creat Clear Calc 52 Estimated GFR > 60 Glucose 98 Calcium 9.4 Renin 4.25 Aldosterone 2 Discharge Plan Discharge Consulting providers: ; Pepe Blake Discharging Clinician: Major Mckeon Anticipated Discharge Date/Time: 01/09/21 10:44 Patient Disposition: Home, Self-Care Activity: as tolerated Diet: heart healthy Discharge Instructions: 1. Continue fluid restriction to no more than 6890-8533 mL of total fluid intake per day 2. You should not be on hydrochlorothiazide or thiazide diuretic moving forward at any point in time given you are quite sensitive to the low sodium effect of this class of diuretics 3. Follow-up with basic metabolic panel lab trend mid next week to recheck the sodium in ensure stability 4. For follow-up with primary provider in 1-2 weeks of discharge, please call their office to set up the point 5. Please discuss with your primary alternatives for Lexapro, as this has been discontinued given your very low sodium levels Patient Instructions: Antibiotic Form, Rivaroxaban (By mouth), Hyponatremia (DC), Tolbert Catheter Placement and Care (GEN) Stand Alone Forms: General Discharge Information Follow-up/Referrals: PHYSICIAN NOT ON STAFF,NONSTAFF [Primary Care Provider] - (Will need follow up within one week of discharge, will need to check BMP on 01/12 to assess sodium level ) Pepe Blake MD [Physician] - (Post hops follow up in 3-4 weeks for hyponatremia ) Discharge Medications: New famotidine 20 mg Tablet 20 mg PO Q12HR Qty: 60 RF: 0 Continued Retaine HPMC (PF) 0.3 % drops 1 drop EACH EYE DAILY PRN (Reason: Dry Eye(S)) RF: 0 cholecalciferol (vitamin D3) 25 mcg (1,000 unit) capsule 1,000 unit PO DAILY RF: 0 albuterol sulfate [ProAir HFA] 90 mcg/actuation HFA aerosol inhaler 90 mcg inhalation Q4-5H PRN (Reason: shortness of breath o
== END 2021-01-09 13:00 | disposition home or self-care (01) | DRG 641 ==
LOC: ANHED 22:42 → ANH3MEDSUR 23:09
PROVIDERS: Internal Medicine; Internal Medicine Critical Care Medicine; Internal Medicine Nephrology; Physician Assistant; Admitting Provider Internal Medicine; Emergency Provider Emergency Medicine; Visit Provider Internal Medicine Nephrology
DX: E87.1 Hypo-osmolality and hyponatremia (principal); N39.0 Urinary tract infection, site not specified; J44.9 Chronic obstructive pulmonary disease, unspecified; R33.8 Other retention of urine; I10 Essential (primary) hypertension; M19.90 Unspecified osteoarthritis, unspecified site; L30.9 Dermatitis, unspecified; I48.0 Paroxysmal atrial fibrillation; K21.9 Gastro-esophageal reflux disease without esophagitis; K59.00 Constipation, unspecified; R00.1 Bradycardia, unspecified; Z86.73 Personal history of transient ischemic attack (TIA), and cerebral infarction without residual deficits; Z90.49 Acquired absence of other specified parts of digestive tract
CPT/HCPCS: 36415; 51702; 71046; 80048; 80053; 81001; 82088; 83605; 83690; 83880; 83930; 83935; 84244; 84295; 84300; 85025; 85027; 85610; 85730; 86140; 87086; 87088; 96361; 96375; 97110; 97116; 97161; 97165; 97535; 99285; A9270; G0378; J2405; J2597; J7030; J7050; J7060; J7070; J7131

== ENCOUNTER 2021-03-26 15:49 | Observation (INO) | payer MEDICARE, OTHER, SELFPAY ==
[2021-03-26] VITALS (27 sets, daily range): BP systolic 120–151; BP diastolic 71–90; PULSE 70–127; RESP 13–23; TEMP 36.4–37.1; O2SAT 95–100; BMI 25.1
--- NOTE | ~2021-03-26 | XR_ITS ---
EXAMINATION: XR chest 1V portable INDICATION: Chest pain TECHNIQUE: Portable AP chest at 1624 hours COMPARISON: 01/02/2021 FINDINGS: The lungs are hyperinflated but free of acute opacities. There is no pleural effusion or pn eumothorax. The cardiomediastinal silhouette is normal. IMPRESSION: 1. No acute cardiopulmonary abnormality. Reviewed, dictated and finalized at location B. ATTACHER
--- NOTE | 2021-03-26 16:14 | ECG_ITS ---
Measurements Intervals Ragland Rate: 144 P: MN: 0 QRS: -90 QRSD: 132 T: 73 QT: 340 QTc: 527 Interpretive Statements ATRIAL FLUTTER/TACHYCARDIA WITH RAPID VENTRICULAR RESPONSE RIGHT BUNDLE BRANCH BLOCK LEFT ANTERIOR FASCICULAR BLOCK ABNORMAL ECG Electronically Signed On 03-26-2021 18:59:43 [employer]ODUCTION [employer]OL ENGINEER by Garrison Stewart D.O.
--- NOTE | 2021-03-26 16:19 | ED.ARRPALP ---
HPI - Arrhythmia/Palpitations General Chief Complaint: Arrhythmia/Palpitations Stated Complaint: arrhythmia Time Seen by Provider: 03/26/21 16:13 Source: RN notes reviewed History of Present Illness HPI narrative: Patient presents to emergency department from home for A. fib with RVR. Patient states she has history of atrial fibrillation states she is followed by cardiology down at [facility] states about 215 she can feel your heart was racing she states that she did take her evening flecainide and is on flecainide 1 mg twice a day as well as carvedilol but she did not take this evening states she is also on hydralazine for hypertension she denies any fevers or chills, chest pain shortness of breath or any other symptoms Related Data Home Medications Medication Instructions Recorded Confirmed artifi.tears(hypromellose)(PF) 0.3 1 drop EACH EYE DAILY PRN 04/17/19 01/03/21 % eye drops acetaminophen 500 mg tablet 500 mg PO Q6H PRN 11/18/19 01/03/21 cholecalciferol (vitamin D3) 25 1,000 unit PO DAILY cap 01/13/20 01/03/21 mcg (1,000 unit) capsule albuterol sulfate [ProAir HFA] 90 mcg INHALATION Q4-5H PRN 04/02/20 01/03/21 flecainide 100 mg PO BID 04/03/20 01/03/21 carvedilol [Coreg] 3.125 mg PO Q12H 10/28/20 01/03/21 Xiidra 1 drp EACH EYE Q12H 01/03/21 01/03/21 fluticasone propionate 2 spray INTRANASAL DAILY 01/03/21 01/03/21 hydralazine 50 mg PO TID 01/03/21 01/03/21 losartan 100 mg PO DAILY 01/03/21 01/03/21 rivaroxaban 15 mg PO QACDINNER 01/03/21 01/03/21 Allergies Allergy/AdvReac Type Severity Reaction Status Date / Time monosodium glutamate AdvReac Unknown Fatigued Verified 10/28/20 18:30 Review of Systems Review of Systems: Gen.: Denies fevers or chills ENT: Denies congestion Respiratory: Denies shortness of breath or cough CV: Denies chest pain or palpitations GI: Denies abdominal pain nausea, emesis or diarrhea Musculoskeletal: Denies back pain or muscle pain Neuro: Denies numbness, tingling, weakness or focal weakness Skin: Denies rash Except as documented, all other systems reviewed and negative [facility] Past Medical History Medical History Arthritis Colitis COPD (chronic obstructive pulmonary disease) Due to significant secondhand smoke exposure. Eczema Elevated lipids Headache, migraine Hypertension Nausea Paroxysmal atrial fibrillation Paroxysmal atrial fibrillation/atrial flutter. Patient of Dr. Garrison Stewart. Maintained on amiodarone and Xarelto. TIA (transient ischemic attack) At the age of 29, attributed to oral contraceptives. Surgical History Surgical History History of appendectomy History of eyelid surgery History of tonsillectomy History of uterine suspension procedure History of ventral hernia repair Family History Family History Mother Family history of kidney disease Family history of elevated blood lipids Acute myocardial infarction, Onset Age: 93 Family history of liver disease, Onset Age: 93 Family history of congestive heart failure Family history of chronic obstructive pulmonary disease Family history of renal failure, Onset Age: 93 Father Family history of migraine headaches Hypertension Grandparent Cerebrovascular accident Other Family history of cardiovascular disease Family history of malignant neoplasm Social History Social History Social History: The patient is and lives with her earnest in [place]. They have 2 children. 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 She is a lifelong nonsmoker but reports significant secondhand smoke exposure. No alcohol or drug abuse. Her is her surrogate decision maker, and she wishes to be a full code. Smoking status: Never smoker Alcohol intake: unknown Substance use: unknown
[2021-03-26 16:43] LABS: Basophils Percent Auto 0.4 % (0.2-1.2); Eosinophils Absolute Auto 0.2 K/mm3 (0-0.3); Eosinophils Percent Auto 1.8 % (0-4.4); Hematocrit 41.7 % (37.0-47.0); Hemoglobin 14.1 g/dL (12.0-15.0); Immature Granulocyte Absolute 0.03 K/mm3 (0.00-0.031); Immature Granulocyte Percent A 0.4 % (0-0.5); Lymphocytes Absolute Auto 1.82 K/mm3 (0.9-3.2); Lymphocytes Percent Auto 21.6 % (18.3-44.2); Mean Corpuscular HGB Conc 33.8 g/dl (32-36); Mean Corpuscular Hemoglobin 32.6 pg (26-34); Mean Corpuscular Volume 96.3 fl (80-100); Mean Platelet Volume 9.2 fl (7.4-10.4); Monocytes Absolute Auto 0.9 K/mm3 (0.1-0.6); Neutrophils Absolute Auto 5.5 K/mm3 (1.3-6.7); Neutrophils Percent Auto 64.8 % (45.5-73.1); Platelet Count Result 223 k/mm3 (150-375); Red Blood Count 4.33 M/mm3 (4.2-5.4); Red Cell Distribution Width 12.7 % (11.5-14.5); White Blood Count 8.4 K/mm3 (4.5-10.0)
[2021-03-26] MEDS: dilTIAZem HCl INJ 25 MG/5 ML VIAL 5 MG IV PUSH (16:52)
[2021-03-26 16:55] LABS: INR 1.3; Partial Thromboplastin Time 30.9 SECONDS (22.3-36.8); Prothrombin Time 15.6 Seconds (11.1-14.7)
[2021-03-26 18:01] LABS: Anion Gap 6 mmol/L (8-16); Blood Urea Nitrogen 24 mg/dL (7-17); Calcium 9.9 mg/dL (8.4-10.2); Carbon Dioxide 32 mmol/L (22-30); Chloride 101 mmol/L (98-107); Estimated CRCL calculation 41 ml/min; Estimated Glomerular Filt Rate 60; Glucose 120 mg/dL (65-110); Potassium 4.3 mmol/L (3.4-5.0); Sodium 139 mmol/L (137-145)
[2021-03-26 18:13] LABS: NT Pro B Type Natriuretic Pept 555 pg/mL (5-100); Troponin I < 0.012 ng/mL (0.000-0.034)
--- NOTE | 2021-03-26 19:30 | PM.IMHP ---
H&P: HPI History of Present Illness Date/Time: 03/26/21 19:30 Chief Complaint: Palpitations. Narrative: This is a pleasant 80-year-old female with paroxysmal atrial fibrillation, hypertension, and anxiety presented to the emergency department earlier today via private vehicle from home for evaluation of palpitations. She is a patient of Dr. Nikita Higuera at [facility] and she has been maintained on flecainide and carvedilol with good results. Occasionally she will go into AFib, typically for a brief period of time, and she will spontaneously convert. Today she developed irregular palpitations and when they did not improve within a couple of hours she decided to come in for evaluation. On arrival to the emergency department she was found to be in atrial flutter/tachycardia with rapid ventricular response and a rate of 144. She has since been started on a Cardizem drip with improvement in her rate. She state compliance with her home medications and the only change in medications that she has had recently was the addition of a 3rd dose of hydralazine mid day due to higher blood pressure readings at that time. No significant caffeine or alcohol intake. She has not had chest pain, pleuritic pain, shortness of breath, nausea, vomiting, sweats, syncope, or near syncope. Review of Systems Review of Systems: Twelve systems were reviewed. No fever, chills, or sweats. She denies cold and flu symptoms. No sick contacts. No orthopnea, PND, or significant lower extremity edema at this time although she does occasionally have some mild swelling in her legs. Recently started on buspirone due to anxiety. Patient has had issues with hyponatremia in the past and is on a 1500 mL fluid restriction diet. Except as documented, all other systems were reviewed and are negative. [facility] Past Medical History Medical History (Updated 03/26/21 @ 20:39 by Margareth Navarro PA-C) Anxiety Arthritis Chronic anticoagulation Chronic obstructive pulmonary disease Related to significant secondhand smoke exposure. Dyslipidemia Eczema Headache, migraine Hypertension Left carotid bruit Unremarkable carotid Doppler ultrasounds on 09/09/2019. Paroxysmal atrial fibrillation Paroxysmal atrial fibrillation/atrial flutter. Maintained on flecainide, carvedilol, and rivaroxaban. Patient of Dr. Bharathi Higuera at [facility]. TIA (transient ischemic attack) At the age of 29, attributed to oral contraceptives. Surgical History Surgical History History of appendectomy History of eyelid surgery History of tonsillectomy History of tubal ligation History of uterine suspension procedure History of ventral hernia repair Family History Family History Mother Family history of kidney disease Family history of elevated blood lipids Acute myocardial infarction, Onset Age: 93 Family history of liver disease, Onset Age: 93 Family history of congestive heart failure Family history of chronic obstructive pulmonary disease Family history of renal failure, Onset Age: 93 Father Family history of migraine headaches Hypertension Grandparent Cerebrovascular accident Other Family history of cardiovascular disease Family history of malignant neoplasm Social History Social History (Updated 03/26/21 @ 20:35 by Margareth Navarro PA-C) Social History: The patient is and lives with her in [place]. They have 2 children. 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 She is a lifelong nonsmoker but reports significant secondhand smoke exposure. No alcohol or drug abuse. She designates her Alcides Aaron as her surrogate decision maker and she wishes to be a full code. Meds Home Medications and Allergies Home Medications Medication Instructions Recorded Confirmed Type artifi.tears(hypromellose)(PF) 0.3 1 drop EACH EYE DAILY PRN 04/17/19 01/03/21 History % eye drops
[2021-03-26 22:02] LABS: Troponin I 0.028 ng/mL (0.000-0.034)
--- NOTE | 2021-03-26 22:37 | PC.NURSE ---
Pt states she received the pneumonia vaccination last year, had her flu shot for this year, and has had all 3 phizer covid vaccinations.
--- NOTE | 2021-03-26 23:17 | ADMGEN ---
This patient, Beth Aaron, was admitted to IMU Room 231-01 on 03/26/21 at 2020. Patient/family oriented to hospital policies and general routines including ID bracelet, bed and alarms, visiting hours, pain management, procedures, bathroom and other care routines, personal items, smoking policy, room service/diet, and visiting hours. Information on how to activate the Rapid Response Team has been discussed. Patient/Family are encouraged to report perceived risks to care and to ask questions if they do not understand what they are told or what they should do.
[2021-03-27] VITALS (13 sets, daily range): BP systolic 97–105; BP diastolic 44–76; PULSE 43–103; RESP 16–20; TEMP 36.3–36.6; O2SAT 97–99
--- NOTE | 2021-03-27 | ECHO_ITS ---
Patient Info Name: Beth Aaron Age: 80 years : 1940 Gender: Female Ht: 66 in Wt: 155 lbs BSA: 1.82 m2 HR: 71 bpm BP: 99 / 49 mmHg Technical Quality: Good Exam Date: 03/27/2021 9:46 AM Exam Location: [facility] Pulmonary Patient Status: Inpatient Admit Date: 03/26/2021 Staff Ordering Physician: Arabella Aranda PA-C Senior Restaurant Manager: Debbie العلي RDCS Attending Provider: Arabella Aranda PA-C Referring Physician: Rosi WANG; Exam Type: CA echo doppler color flow Study Info Indications - afib Complete two-dimensional, color flow and Doppler transthoracic echocardiogram is performed. Summary 1. Complete two-dimensional, color flow and Doppler transthoracic echocardiogram is performed. 2. Left ventricular chamber dimension is normal. 3. Left ventricular systolic function is normal, estimated at 65-70%. 4. There is moderately increased left ventricular wall thickness. 5. The left ventricular diastolic function is abnormal. 6. E' 0.09 suggests diastolic dysfunction. 7. There is trace mitral valve regurgitation. 8. There is mild tricuspid valve regurgitation. 9. No pulmonary hypertension, estimated pulmonary arterial systolic pressure is 19 mmHg. Left Ventricle E' 0.09 suggests diastolic dysfunction. Left ventricular chamber dimension is normal. Left ventricular systolic function is normal, estimated at 65-70%. There is moderately increased left ventricular wall thickness. The left ventricular diastolic function is abnormal. Right Ventricle Right ventricular chamber dimension is normal. Right ventricular systolic function is normal. Left Atria Left atrial chamber dimension is normal. Right Atria Right atrial chamber dimension is normal. Aortic Valve The aortic valve is trileaflet. There is no aortic valve stenosis. There is no aortic valve regurgitation. Pulmonic Valve There is no pulmonic regurgitation. Mitral Valve There is no mitral valve stenosis. There is trace mitral valve regurgitation. Tricuspid Valve There is mild tricuspid valve regurgitation. No pulmonary hypertension, estimated pulmonary arterial systolic pressure is 19 mmHg. Pericardium/Pleural There is no pericardial effusion. Inferior Vena Cava Normal inferior vena cava with >50% collapse upon inspiration consistent with normal right atrial pressure, 5 mmHg. Aorta The aortic root size at the sinus of Valsalva is normal. Left Ventricular Outflow Tract Name Value Normal LVOT 2D LVOT Diameter 1.8 cm LVOT Doppler LVOT Peak Gradient 3 mmHg LVOT Mean Gradient 1 mmHg LVOT VTI 19 cm LVOT VTI/AV VTI Ratio 0.7 LVOT Stroke Volume 50 ml LVOT CO 3.6 l/min LVOT CI 2.0 l/min/m2 Pulmonic Valve Name Value Normal
[2021-03-27] MEDS: RIVAROXABAN 15 MG TABLET PO (03:37)
[2021-03-27 05:34] LABS: Basophils Absolute Auto 0.1 K/mm3 (0.0-0.1); Basophils Percent Auto 0.7 % (0.2-1.2); Eosinophils Absolute Auto 0.1 K/mm3 (0-0.3); Eosinophils Percent Auto 1.9 % (0-4.4); Hematocrit 37.2 % (37.0-47.0); Hemoglobin 12.5 g/dL (12.0-15.0); Immature Granulocyte Absolute 0.02 K/mm3 (0.00-0.031); Immature Granulocyte Percent A 0.3 % (0-0.5); Lymphocytes Absolute Auto 1.53 K/mm3 (0.9-3.2); Lymphocytes Percent Auto 20.3 % (18.3-44.2); Mean Corpuscular HGB Conc 33.6 g/dl (32-36); Mean Corpuscular Hemoglobin 32.3 pg (26-34); Mean Corpuscular Volume 96.1 fl (80-100); Mean Platelet Volume 9.8 fl (7.4-10.4); Monocytes Absolute Auto 0.9 K/mm3 (0.1-0.6); Monocytes Percent Auto 11.5 % (2.6-8.5); Neutrophils Absolute Auto 4.9 K/mm3 (1.3-6.7); Neutrophils Percent Auto 65.3 % (45.5-73.1); Platelet Count Result 217 k/mm3 (150-375); Red Blood Count 3.87 M/mm3 (4.2-5.4); Red Cell Distribution Width 12.8 % (11.5-14.5); White Blood Count 7.5 K/mm3 (4.5-10.0)
[2021-03-27 05:40] LABS: Alanine Aminotransferase 13 U/L (4-35); Albumin Level 3.6 g/dL (3.5-5.1); Alkaline Phosphatase 78 U/L (38-126); Aspartate Amino Transferase 23 U/L (14-36); Bilirubin,Total 0.6 mg/dL (0.2-1.3); Magnesium 1.9 mg/dL (1.6-2.3)
[2021-03-27 07:13] LABS: Anion Gap 8 mmol/L (8-16); Blood Urea Nitrogen 23 mg/dL (7-17); Calcium 9.3 mg/dL (8.4-10.2); Carbon Dioxide 26 mmol/L (22-30); Chloride 103 mmol/L (98-107); Estimated CRCL calculation 46 ml/min; Estimated Glomerular Filt Rate > 60; Glucose 89 mg/dL (65-110); Potassium 4.3 mmol/L (3.4-5.0); Sodium 137 mmol/L (137-145)
[2021-03-27] MEDS: busPIRone HCL 5 MG TABLET PO (09:10)
[2021-03-27] MEDS: carvediloL 3.125 MG TABLET PO (09:10)
[2021-03-27] MEDS: hydrALAZINE HCL 50 MG TABLET PO (09:10)
[2021-03-27] MEDS: CHOLECALCIFEROL 1,000 UNITS TABLET 1000 UNITS PO (09:11)
[2021-03-27] MEDS: FLECAINIDE ACETATE 100 MG TABLET PO (09:11)
[2021-03-27] MEDS: FAMOTIDINE 20 MG TABLET PO (09:11)
[2021-03-27] MEDS: LOSARTAN POTASSIUM 100 MG TABLET PO (09:12)
--- NOTE | 2021-03-27 10:31 | ECG_ITS ---
Measurements Intervals [place] Rate: 89 P: NC: 0 QRS: -72 QRSD: 130 T: 76 QT: 398 QTc: 486 Interpretive Statements ATRIAL FLUTTER/TACHYCARDIA RIGHT BUNDLE BRANCH BLOCK LEFT ANTERIOR FASCICULAR BLOCK ABNORMAL ECG Electronically Signed On 03-27-2021 15:09:17 LOOM FIXER APPRENTICE by Garrison Stewart D.O.
--- NOTE | 2021-03-27 13:18 | PM.CNCAR ---
Assessment and Plan Additional Plan This is an 80-year-old woman with: Long history of paroxysmal atrial fibrillation currently being treated with flecainide and Xarelto. She her physician is at [facility]. Despite this she came to [facility] with this occurrence because she did want to wait in the emergency room at [facility] for a long time. She is now back in sinus rhythm and is asymptomatic. Discussed a variety treatment options at this point which would be to advance the dosage of her flecainide, consider all switching to an alternative antiarrhythmic or changing nothing at all and having her follow-up with her established physician in [place]. It is her preference to do the latter. In my opinion therefore she can be discharged from the hospital. I encouraged her if she has recurrences of atrial fibrillation and she is desiring care at [facility] it would make more sense for her to go there when she is having problems like this. If you have any other cardiac questions please let me know otherwise I will anticipate she will not be following in my office since her establish care is elsewhere. Minh Sandy MD [facility] History of Present Illness History of Present Illness Consult date/time: Date of service: 03/27/21 13:18 Consult reason: atrial fibrillation Reason For Visit: A Fib with RVR Narrative: This is a 80-year-old woman with a history of paroxysmal atrial fibrillation for a number of years admitted to [facility] last evening through the emergency room because of a symptomatic recurrence of her arrhythmia. She previously had been under the care of Dr.Heng berrios at [facility] and currently sees 1 of the cardiologists at [facility] for this. She in the past was managed with sotalol and the because of intolerance I believe because of bradycardia was transition to flecainide which she currently takes for the last several years at a dosage of 100 mg q.12 hours. The patient states that she does not have any other cardiac problems that she is aware of other than her atrial arrhythmia. She says that she been having more difficulties with frequent anxiety attacks as she describes them over the last 6-9 months. She describes these anxiety attacks is episodes of tachycardia and palpitations but she does not think that most of them are episodes of atrial fibrillation. Last night she states she was clear to her that she was in atrial fib so she came to this hospital's emergency room to be evaluated. She was found to be in AFib with RVR. Of course she was placed on intravenous diltiazem which did provide rate control. Earlier this morning she converted back to sinus rhythm spontaneously at which time I ordered the staff to discontinue the diltiazem infusion. She is as stated above taking flecainide as well as systemic anticoagulation with Xarelto. The patient is feeling well at this time does not have any other complaints. I did question the patient as to her decision to come to [facility] with this since she seeks care from pantomimist at [facility]. She says this was because she believes the waiting list time in the emergency room at the [facility] his excessively long that she did not wish to wait in the emergency room. Her primary care physician is also at [facility]. The patient states that her PCP has been aware of these symptomatic episodes that she is describing as anxiety attacks and has been prescribing buspirone for this which she started a couple of weeks ago. Review of Systems Constitutional: Constitutional: Reports no additional constitutional complaints Eyes: Eyes: Reports no additional eye complaints ENT: Reports system reviewed and no additional complaints, except as documented Cardiovascular: Cardiovascular: Reports palpitations Respiratory: Respiratory: Reports no additional respiratory complaints Gastrointestin
--- NOTE | 2021-03-27 14:01 | PM.DS ---
DS: Admitting Diagnosis Discharge Date 03/27/21 Admitting Diagnosis Palpitations DS: Discharge Diagnosis Discharge Diagnosis (1) Atrial flutter with rapid ventricular response: Code(s): I48.92 - Unspecified atrial flutter Status: Acute Assessment and Plan: The patient is an 80-year-old woman with a history of paroxysmal atrial fibrillation, hypertension, anxiety, who presents emergency room for palpitations. Patient states she has been having increased anxiety at home and recently placed on BuSpar with some improvement. Prior to her palpitations episode she did report feeling anxious. The patient took an extra dose of flecainide for her palpitations without any improvement so she decided to come to the ER for further evaluation. On arrival to the emergency department she was found to be in atrial flutter/tachycardia with rapid ventricular response and a rate of 144. She was started on a Cardizem drip with improvement in her rate. She converted back into NSR and rate is well controlled. Cardiology evaluated the patient and recommended increasing her flecainide. At 1st she was unsure about this change and wanted to talk to her sheet heater helper at [facility]. Then when I evaluated her she was worried that she would have another episode and have to come back to emergency room. She would like us to increase her flecainide. Dr. Sandy recommended increasing flecainide to 150 mg twice daily. She will follow-up with her primary care and sheet heater helper in 1 week. Return to ER warnings given. The patient understands agrees the plan. She is discharged in stable condition home. (2) Hypertension: Qualifiers: Hypertension type: unspecified Qualified Code(s): I10 - Essential (primary) hypertension Code(s): I10 - Essential (primary) hypertension Status: Acute (3) Chronic anticoagulation: Code(s): Z79.01 - custodial (current) use of anticoagulants Status: Acute (4) Left carotid bruit: Code(s): R09.89 - Other specified symptoms and signs involving the circulatory and respiratory systems Status: Acute DS: Summary Hospital Course Hospital Course: See above Status at Discharge Cognitive/behavioral status at discharge: Stable, improved. Time Spent with Patient Time attestation: Total time spent providing and/or coordinating discharge services: 40 Time spent: Greater than 30 minutes Exam Narrative: General: 80-year-old woman sitting up in bed eating lunch talking to her . Appears comfortable. In no acute distress. Skin: No jaundice or cyanosis. Good skin turgor. Neck: Full range of motion. Supple. Respiratory: Lungs are clear to auscultation bilaterally. No wheezing, rales or rhonchi. No bony chest wall tenderness. Cardiovascular: The heart has a regular rate and rhythm without murmur. Tele shows NSR rate 61 bpm. Lower extremities: No lower extremity edema. Distal pulses are easily palpated. No calf tenderness to palpation. Gastrointestinal: The abdomen is soft, nontender and nondistended with active bowel sounds. Psychiatric: Lucid and oriented. Memory intact. Neurologic: No focal deficits. Speech is clear. No facial drooping. DS: Data Data Completed and Pending Labs on day of discharge: Labs from last 24 hours 03/27/21 03/27/21 03/27/21 04:23 04:23 04:23 WBC 7.5 RBC 3.87 L Hgb 12.5 Hct 37.2 MCV 96.1 MCH 32.3 MCHC 33.6 RDW 12.8 Plt Count 217 MPV 9.8 Immature Gran % (Auto) 0.3 Neut % (Auto) 65.3 Lymph % (Auto) 20.3 [place] % (Auto) 11.5 H Eos % (Auto) 1.9 Baso % (Auto) 0.7 Lymph # (Auto) 1.53 [place] # (Auto) 0.9 H Eos # (Auto) 0.1 Baso # (Auto) 0.1 Abs Immat Gran (auto) 0.02 Absolute Neuts (auto) 4.9 Absolute Nucleated RBC 0.0 Nucleated RBC % 0.0 PT INR APTT Sodium 137 Potassium 4.3 Chloride 103 Carbon Dioxide 26 Anion Gap 8 BUN 23 H Creatin
== END 2021-03-27 16:50 | disposition home or self-care (01) ==
LOC: ANHED 18:20 → ANHIMU 19:04
PROVIDERS: Physician Assistant; Admitting Provider Internal Medicine; Emergency Provider Emergency Medicine; Visit Provider Family Medicine
DX: I48.92 Unspecified atrial flutter (principal); I48.91 Unspecified atrial fibrillation; R01.1 Cardiac murmur, unspecified; R00.2 Palpitations; I10 Essential (primary) hypertension; F41.9 Anxiety disorder, unspecified
CPT/HCPCS: 36415; 71045; 80048; 80076; 83735; 83880; 84443; 84484; 85025; 85610; 85730; 93005; 93306; 96365; 96366; 96376; 99285; A9270; G0378

== ENCOUNTER → 2021-04-07 10:45 | Outpatient (CLI) | payer MEDICARE, OTHER, SELFPAY ==
--- NOTE | ~2021-04-07 | MM_ITS ---
EXAMINATION: MM screening [facility] BI w lisette HISTORY: Screening mammogram TECHNIQUE: Craniocaudal and mediolateral oblique 3-D tomosynthesis images were obtained and synthetic 2-D images were generated. CAD analysis was submitted and interpreted. COMPARISON: 01/23/2020, 12/27/2018, 11/24/2017 BREAST PARENCHYMAL COMPOSITION: There are scattered areas of fibroglandular density. FINDINGS: There is no evidence of suspicious mass, calcification, or architectural distortion to sugg est malignancy in either breast. There has been no suspicious interval change. IMPRESSION: 1. No mammographic evidence of malignancy. 2. Recommend routine screening mammography while the patient remains in good health. BI-RADS Category 1: Negative Reviewed, dictated and finalized at location A. NDER LET OFF OPERATOR IMPRESSION: 1. No mammographic evidence of malignancy. 2. Recommend routine screening mammography while the patient remains in good he alth. BI-RADS Category 1: Negative
== END ==
DX: Z12.31 Encounter for screening mammogram for malignant neoplasm of breast (principal)
CPT/HCPCS: 77063; 77067

== ENCOUNTER 2021-04-27 15:11 | Inpatient (IN) | payer MEDICARE, OTHER, SELFPAY ==
[2021-04-27 15:23] VITALS: BP 141/49; PULSE 56; RESP 18; TEMP 36.8; O2SAT 98
[2021-04-27 16:53] VITALS: BP 185/78; PULSE 65; RESP 18; O2SAT 98
[2021-04-27 17:47] LABS: Basophils Percent Auto 0.4 % (0.2-1.2); Eosinophils Absolute Auto 0.1 K/mm3 (0-0.3); Eosinophils Percent Auto 0.8 % (0-4.4); Hematocrit 34.3 % (37.0-47.0); Hemoglobin 11.6 g/dL (12.0-15.0); Immature Granulocyte Absolute 0.02 K/mm3 (0.00-0.031); Immature Granulocyte Percent A 0.3 % (0-0.5); Lymphocytes Absolute Auto 1.48 K/mm3 (0.9-3.2); Lymphocytes Percent Auto 18.5 % (18.3-44.2); Mean Corpuscular HGB Conc 33.8 g/dl (32-36); Mean Corpuscular Hemoglobin 31.7 pg (26-34); Mean Corpuscular Volume 93.7 fl (80-100); Mean Platelet Volume 8.6 fl (7.4-10.4); Monocytes Percent Auto 12.4 % (2.6-8.5); Neutrophils Absolute Auto 5.4 K/mm3 (1.3-6.7); Neutrophils Percent Auto 67.6 % (45.5-73.1); Platelet Count Result 221 k/mm3 (150-375); Red Blood Count 3.66 M/mm3 (4.2-5.4); Red Cell Distribution Width 12.4 % (11.5-14.5)
[2021-04-27 17:58] LABS: Alanine Aminotransferase 23 U/L (4-35); Albumin Level 4.2 g/dL (3.5-5.1); Alkaline Phosphatase 100 U/L (38-126); Anion Gap 7 mmol/L (8-16); Aspartate Amino Transferase 31 U/L (14-36); Bilirubin,Total 0.6 mg/dL (0.2-1.3); Blood Urea Nitrogen 23 mg/dL (7-17); Calcium 8.9 mg/dL (8.4-10.2); Carbon Dioxide 24 mmol/L (22-30); Chloride 90 mmol/L (98-107); Estimated CRCL calculation 46 ml/min; Estimated Glomerular Filt Rate > 60; Glucose 100 mg/dL (65-110); Potassium 4.2 mmol/L (3.4-5.0); Sodium 121 mmol/L (137-145)
[2021-04-27] MEDS: SODIUM CHLORIDE 0.9% IV 1,000 ML 999 ML IV CONT (18:28)
--- NOTE | 2021-04-27 18:29 | ED.GENADULT ---
HPI - General Adult General Chief complaint: Nausea/Vomiting/Diarrhea Stated complaint: nausea, weakness Time Seen by Provider: 04/27/21 17:20 History of Present Illness HPI narrative: 80-year-old female presenting to the emerge department for evaluation of increased generalized weakness with increased nausea. Patiently recently restarted her Lexapro approximately 3 days ago. Per EMR patient had previously been on both hydrochlorothiazide and Lexapro and had experienced hyponatremia. At that time both medications were stopped. In discussion with her swing ride operator and pastry decorator it was decided to retry the Lexapro to help control her anxiety. Patient denies any associated vomiting, but patient does report. Related Data Home Medications Medication Instructions Recorded Confirmed acetaminophen 500 mg tablet 500 mg PO Q6H PRN 11/18/19 03/26/21 cholecalciferol (vitamin D3) 25 1,000 unit PO DAILY cap 01/13/20 03/26/21 mcg (1,000 unit) capsule carvedilol [Coreg] 3.125 mg PO Q12H 10/28/20 03/26/21 Xiidra 1 drp EACH EYE Q12H 01/03/21 03/26/21 fluticasone propionate 2 spray INTRANASAL DAILY 01/03/21 03/26/21 hydralazine 50 mg PO BID 01/03/21 03/26/21 losartan 100 mg PO DAILY 01/03/21 03/26/21 buspirone 10 mg PO BID 03/26/21 03/26/21 guaifenesin [Mucinex] 500 mg PO DAILY PRN 03/26/21 03/26/21 hydralazine 50 mg PO QPM PRN 03/26/21 03/26/21 hydralazine 100 mg PO QNOON 03/26/21 03/26/21 polyethylene glycol 3350 [Miralax] 17 g PO DAILY PRN 03/26/21 03/26/21 albuterol sulfate 1 puff INHALATION Q3-6H PRN 04/27/21 escitalopram oxalate [Lexapro] 10 mg PO DAILY 04/27/21 nitroglycerin 0.4 mg SUBLINGUAL Q2-6H PRN 04/27/21 rivaroxaban [Xarelto] 15 mg PO DAILY 04/27/21 Allergies Allergy/AdvReac Type Severity Reaction Status Date / Time monosodium glutamate AdvReac Unknown Fatigued Verified 04/27/21 16:53 Review of Systems Review of Systems: CONSTITUTIONAL: Reports generalized fatigue with no fevers or chills EYES: Denies visual changes, redness, or discharge. ENT: Denies rhinorrhea, congestion, sore throat, or otalgia. CARDIOVASCULAR: Denies chest pain, palpitations, or edema. RESPIRATORY: Denies cough or dyspnea. GASTROINTESTINAL: Denies abdominal pain, vomiting, or diarrhea. Does report nausea and some constipation GENITOURINARY: Denies dysuria or hematuria. SKIN: Denies rash or itching. MUSCULOSKELETAL: Denies back pain, joint pain, or myalgia. Did have some generalized muscular weakness of her legs earlier NEUROLOGIC: Denies headache, numbness, or focal weakness. PSYCHIATRIC: Patient does have significant history and complaint of anxiety [facility] Past Medical History Medical History (Updated 04/27/21 @ 18:29 by Sidney Woodward MD) Anxiety Arthritis Chronic anticoagulation Chronic obstructive pulmonary disease Related to significant secondhand smoke exposure. Dyslipidemia Eczema Headache, migraine Hypertension Left carotid bruit Unremarkable carotid Doppler ultrasounds on 09/09/2019. Paroxysmal atrial fibrillation Paroxysmal atrial fibrillation/atrial flutter. Maintained on flecainide, carvedilol, and rivaroxaban. Patient of Dr. Bharathi Higuera at [facility]. TIA (transient ischemic attack) At the age of 29, attributed to oral contraceptives. Surgical History Surgical History History of appendectomy History of eyelid surgery History of tonsillectomy History of tubal ligation History of uterine suspension procedure History of ventral hernia repair Family History Family History Mother Family history of kidney disease Family history of elevated blood lipids Acute myocardial infarction, Onset Age: 93 Family history of liver disease, Onset Age: 93 Family history of congestive heart failure Family history of chronic obstructive pulmonary disease Family history of renal failure, Onset Age: 93 Father Family
[2021-04-27 19:21] LABS: Add Urine Microscopic? YES; Appearance Urine Clear (Clear); Bilirubin Urine Negative (Negative); Blood Urine 2+ (Negative); Color Urine Yellow (Yellow); Glucose Urine UA Negative (Negative); Ketones Urine Negative (Negative); Leukocyte Esterase Ur Negative LEU/UL (Negative); Mucus Urine Rare /lpf; Nitrate Urine Negative (Negative); Protein Urine Negative (Negative); RBC Urine 21-50 /hpf (0-2); Specific Grav Ur 1.013 (1.001-1.035); Urobilinogen Urine Negative mg/dL (<2.0); WBC Urine 0-3 /hpf
[2021-04-27 20:35] VITALS: BP 137/55; PULSE 51; RESP 18; O2SAT 97
--- NOTE | 2021-04-27 23:00 | PC.NURSE ---
Assuming care of pt.
[2021-04-27 23:26] VITALS: BP 100/42; PULSE 52; RESP 18; O2SAT 97
[2021-04-28] VITALS (55 sets, daily range): BP systolic 93–164; BP diastolic 42–131; PULSE 44–74; RESP 14–32; TEMP 36.6; O2SAT 94–99; BMI 27.7
--- NOTE | 2021-04-28 03:30 | PM.IMHP ---
H&P: HPI History of Present Illness Date/Time: 04/28/21 03:30 Chief Complaint: Generalized weakness, nausea Narrative: This is 80-year-old female who presents to the ED for evaluation of increasing generalized weakness along with nausea that started approximately few days ago. In the ED she was noted to have hyponatremia which is new and getting admitted for further treatment. She stated that she was recently started on medication call Lexapro for her anxiety after which she started feeling nauseous. She was admitted with hyponatremia last time it was severely low at 108. It was determined it was related to her hydrochlorothiazide and Lexapro which was stopped. After discussion with quality assurance and shine worker was decided to retry the Lexapro to help control her anxiety. She denies any vomiting or abdominal pain no urinary symptoms. Review of Systems Review of Systems: - CONSTITUTIONAL: Denies weight loss, fever and chills. - HEENT: Denies changes in vision and hearing - RESPIRATORY: Denies SOB and cough. - CV: Denies palpitations and CP. - GI: Denies abdominal pain, reports nausea, denies vomiting and diarrhea. - : Denies dysuria and urinary frequency. - MSK: Denies myalgia and joint pain. - SKIN: Denies rash and pruritus. - NEUROLOGICAL: Denies headache and syncope. Reports generalized weakness - PSYCHIATRIC: Denies recent changes in mood. Denies anxiety and depression. All systems reviewed & are unremarkable except as noted in HPI and below Constitutional: Constitutional: Reports fatigue and Reports weakness Neurologic: Reports weakness Endocrine: Endocrine: Reports fatigue [facility] Past Medical History Medical History (Updated 04/27/21 @ 18:29 by Sidney Woodward MD) Anxiety Arthritis Chronic anticoagulation Chronic obstructive pulmonary disease Related to significant secondhand smoke exposure. Dyslipidemia Eczema Headache, migraine Hypertension Left carotid bruit Unremarkable carotid Doppler ultrasounds on 09/09/2019. Paroxysmal atrial fibrillation Paroxysmal atrial fibrillation/atrial flutter. Maintained on flecainide, carvedilol, and rivaroxaban. Patient of Dr. Bharathi Higuera at [facility]. TIA (transient ischemic attack) At the age of 29, attributed to oral contraceptives. Surgical History Surgical History History of appendectomy History of eyelid surgery History of tonsillectomy History of tubal ligation History of uterine suspension procedure History of ventral hernia repair Family History Family History Mother Family history of kidney disease Family history of elevated blood lipids Acute myocardial infarction, Onset Age: 93 Family history of liver disease, Onset Age: 93 Family history of congestive heart failure Family history of chronic obstructive pulmonary disease Family history of renal failure, Onset Age: 93 Father Family history of migraine headaches Hypertension Grandparent Cerebrovascular accident Other Family history of cardiovascular disease Family history of malignant neoplasm Social History Social History (Updated 03/26/21 @ 20:35 by Margareth Navarro PA-C) Social History: The patient is and lives with her in [place]. They have 2 children. 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 She is a lifelong nonsmoker but reports significant secondhand smoke exposure. No alcohol or drug abuse. She designates her Alcides Aaron as her surrogate decision maker and she wishes to be a full code. Smoking status: Never smoker Second hand tobacco smoke exposure: Yes Alcohol intake: never Substance use: never Spiritual care concerns: No Meds Home Medications and Allergies Home Medications Medication Instructions Recorded Confirmed Type nitroglycerin 0.4 mg sublingual 0.4 mg SUBLINGUAL Q5M PRN #10 10/22/19
--- NOTE | 2021-04-28 03:50 | ECG_ITS ---
Measurements Intervals [place] Rate: 50 P: [place]: 0 QRS: -73 QRSD: 153 T: 63 QT: 385 QTc: 352 Interpretive Statements SINUS RHYTHM WITH MARKED FIRST DEGREE AV BLOCK RIGHT BUNDLE BRANCH BLOCK LEFT ANTERIOR FASCICULAR BLOCK ABNORMAL ECG Electronically Signed On 04-28-2021 9:15:03 BOBBIN DOFFER by Garrison Stewart D.O.
[2021-04-28] MEDS: SODIUM CHLORIDE 0.9% IV 1,000 ML 75 ML IV CONT ×2 (06:45→18:23)
--- NOTE | 2021-04-28 08:45 | PC.NURSE ---
Ordered pt breakfast
--- NOTE | 2021-04-28 08:57 | PC.NURSE ---
Called Dr. Friend with an update of pt vitals of BP 135/61 and HR ranging between 46-51, orders to hold all BP medication except for losartan
[2021-04-28 09:22] LABS: Anion Gap 8 mmol/L (8-16); Blood Urea Nitrogen 18 mg/dL (7-17); Calcium 8.1 mg/dL (8.4-10.2); Carbon Dioxide 24 mmol/L (22-30); Chloride 94 mmol/L (98-107); Estimated CRCL calculation 46 ml/min; Estimated Glomerular Filt Rate > 60; Glucose 99 mg/dL (65-110); Potassium 3.7 mmol/L (3.4-5.0); Sodium 126 mmol/L (137-145)
[2021-04-28] MEDS: busPIRone HCL 5 MG TABLET 10 MG PO ×2 (09:25→18:08)
[2021-04-28] MEDS: LOSARTAN POTASSIUM 100 MG TABLET PO (09:26)
[2021-04-28] MEDS: FAMOTIDINE 20 MG TABLET PO ×2 (09:26→22:47)
[2021-04-28] MEDS: FLECAINIDE ACETATE 50 MG TABLET 150 MG PO ×2 (09:26→22:47)
[2021-04-28] MEDS: CHOLECALCIFEROL 1,000 UNITS TABLET 1000 UNITS PO (09:26)
[2021-04-28] MEDS: FLUTICASONE PROPIONATE 0.05% NA SPR 16 GM BTL (*BKC) 2 SPRAY NASAL (09:27)
--- NOTE | 2021-04-28 10:09 | PM.IMPN ---
Progress Note: A&P Assessment and Plan (1) Acute hyponatremia: Code(s): E87.1 - Hypo-osmolality and hyponatremia Status: Acute Assessment and Plan: severe hyponatremia new sodium level 121 started after re challenged with Lexapro. Receive 1 L of normal saline in the ER. nephrology consultation . aim to increase sodium level 6-8 mEq per day. She reports that she has maintained 1500 cc fluid restriction since discharge. TSH checked last month was normal. Continue fluid restriction of 1500 mL per now sodium has improved to 126 continue to monitor sodium every 6 hours (2) Chronic anticoagulation: Code(s): Z79.01 - penitentiary (current) use of anticoagulants Status: Acute Assessment and Plan: For AFib on Xarelto continue (3) Dyslipidemia: Code(s): E78.5 - Hyperlipidemia, unspecified Status: Acute Assessment and Plan: Continue home medication diet and exercise (4) Anxiety: Code(s): F41.9 - Anxiety disorder, unspecified Status: Acute Assessment and Plan: May need to DC Lexapro patient is very fixed that Lexapro was not associated with her symptoms pending nephrology valve (5) Nausea: Code(s): R11.0 - Nausea Status: Acute Assessment and Plan: Most likely related to hyponatremia resolved (6) Hypertension: Qualifiers: Hypertension type: unspecified Qualified Code(s): I10 - Essential (primary) hypertension Code(s): I10 - Essential (primary) hypertension Status: Acute Assessment and Plan: Continue home medication hold hydralazine if blood pressure less than 130/70 (7) COPD (chronic obstructive pulmonary disease): Qualifiers: COPD type: unspecified COPD Qualified Code(s): J44.9 - Chronic obstructive pulmonary disease, unspecified Code(s): J44.9 - Chronic obstructive pulmonary disease, unspecified Status: Chronic Assessment and Plan: Stable continue home medication (8) Paroxysmal atrial fibrillation: Code(s): I48.0 - Paroxysmal atrial fibrillation Status: Chronic Assessment and Plan: On Coreg and flecainide and Xarelto continue (9) Weakness: Code(s): R53.1 - Weakness Status: Acute Assessment and Plan: PT OT evaluation Subjective Date/time seen: 04/28/21 10:09 Interval history: 80 years old female with past medical history of hypertension AFib presented to the hospital with nausea and generalized weakness patient was found to have sodium of 121 patient has history of hyponatremia in the past was attributed to hydrochlorothiazide patient currently is not on hydrochlorothiazide Patient was placed on fluid restriction sodium every 6 hours Nephrology was consulted Patient denies fever or chills still complaining of generalized weakness Heart rate is in 50s patient is on flecainide and Coreg Am seeing patient for hyponatremia Exam Narrative: Alert HEENT no redness Chest no wheeze crackles Abdomen nontender nondistended CVS S1 + S2 Lower extremity negative edema Objective Data Vital Signs Vital Signs: Vital Signs - 24 hr 04/27/21 15:23 04/27/21 16:53 04/27/21 20:35 Temperature 98.2 F Pulse Rate 56 L 65 51 L Respiratory Rate 18 18 18 Blood Pressure 141/49 H 185/78 H 137/55 L Pulse Oximetry 98 98 97 04/27/21 23:26 04/28/21 02:05 04/28/21 04:19 Temperature Pulse Rate 52 L 50 L 55 L Respiratory Rate 18 18 18 Blood Pressure 100/42 L 94/42 L 115/46 L Pulse Oximetry 97 98 95 04/28/21 06:37 04/28/21 07:30 04/28/21 07:46 Temperature Pulse Rate 52 L 61 55 L Respiratory Rate 18 25 H 20 Blood Pressure 93/60 L Pulse Oximetry 96 04/28/21 08:00 04/28/21 08:01 04/28/21 08:15 Temperature Pulse Rate 52 L 51 L 50 L Respiratory Rate 17 18 15 Blood Pressure 135/61 Pulse Oximetry 95 04/28/21 08:39 04/28/21 08:45 04/28/21 09:24 Temperature Pulse Rate 48 L 48 L 51 L Respiratory Rate 17 17
[2021-04-28 10:39] LABS: Basophils Percent Auto 0.3 % (0.2-1.2); Eosinophils Percent Auto 0.6 % (0-4.4); Hematocrit 34.2 % (37.0-47.0); Hemoglobin 11.5 g/dL (12.0-15.0); Immature Granulocyte Absolute 0.02 K/mm3 (0.00-0.031); Immature Granulocyte Percent A 0.3 % (0-0.5); Lymphocytes Absolute Auto 1.22 K/mm3 (0.9-3.2); Lymphocytes Percent Auto 19.7 % (18.3-44.2); Mean Corpuscular HGB Conc 33.6 g/dl (32-36); Mean Corpuscular Hemoglobin 31.5 pg (26-34); Mean Corpuscular Volume 93.7 fl (80-100); Mean Platelet Volume 8.5 fl (7.4-10.4); Monocytes Absolute Auto 0.8 K/mm3 (0.1-0.6); Monocytes Percent Auto 12.1 % (2.6-8.5); Neutrophils Absolute Auto 4.1 K/mm3 (1.3-6.7); Platelet Count Result 211 k/mm3 (150-375); Red Blood Count 3.65 M/mm3 (4.2-5.4); Red Cell Distribution Width 12.3 % (11.5-14.5); White Blood Count 6.2 K/mm3 (4.5-10.0)
[2021-04-28 11:00] LABS: Alanine Aminotransferase 21 U/L (4-35); Albumin Level 3.6 g/dL (3.5-5.1); Alkaline Phosphatase 92 U/L (38-126); Anion Gap 8 mmol/L (8-16); Aspartate Amino Transferase 27 U/L (14-36); Bilirubin,Total 0.9 mg/dL (0.2-1.3); Blood Urea Nitrogen 17 mg/dL (7-17); Calcium 8.3 mg/dL (8.4-10.2); Carbon Dioxide 25 mmol/L (22-30); Chloride 94 mmol/L (98-107); Estimated CRCL calculation 41 ml/min; Estimated Glomerular Filt Rate 60; Glucose 114 mg/dL (65-110); Sodium 127 mmol/L (137-145)
[2021-04-28] MEDS: hydrALAZINE HCL 50 MG TABLET 100 MG PO (12:59)
--- NOTE | 2021-04-28 16:07 | PM.CNNEP ---
Assessment and Plan Assessment and plan (1) Acute hyponatremia: Code(s): E87.1 - Hypo-osmolality and hyponatremia Status: Acute Assessment and Plan: presumably due to restart/taking lexapro (SSRI) again extensive evaluation done on previous hospitalizations so no need to repeat this agree with re-instiution of fluid restriction hold lexapro follow trend of repeat sodium levels (2) Hypertension: Qualifiers: Hypertension type: unspecified Qualified Code(s): I10 - Essential (primary) hypertension Code(s): I10 - Essential (primary) hypertension Status: Acute Assessment and Plan: erratic and difficult to control at times reasonable control at this time follow trend of hemodynamics (3) Weakness: Code(s): R53.1 - Weakness Status: Acute Assessment and Plan: presumably due to #1 PT/OT as tolerated (4) Anxiety: Code(s): F41.9 - Anxiety disorder, unspecified Status: Chronic Assessment and Plan: chronic issue/problems would advocate NOT to treat with SSRIs given her issues with #1 Will continue to follow. History of Present Illness Reason for Consult Consult date: 04/28/21 Reason for consult: hyponatremia Chief Complaint Chief complaint: Hyponatremia, Nausea, Gen Weakness History of Present Illness Narrative: The patient is 80-year-old female with a past medical history as outlined below who presented to [facility] Emergency room due to symptoms of generalized weakness in association with nausea. The patient states that the symptoms of weakness and nausea started several days ago. She relates that she recently started Lexapro for her anxiety which she was previously taken off of due to her problems/issues with hyponatremia. Apparently, the Lexapro did help with her anxiety but she feels that this may have precipitated her nausea. She also maintains a fluid restriction of around 1500 cc which she religiously follows particularly given her recurrent hospitalizations/admissions for hyponatremia in the past. Workup and evaluation emergency room demonstrated the patient to be hemodynamically stable but routine blood test demonstrated evidence of hyponatremia again with a sodium of 121. She had no other critical electrolyte abnormalities and imaging studies also did not demonstrate any other specific cause to her weakness and nausea. Was some concern that her nausea may have be in precipitated also by perhaps volume depletion and she was given a L of normal saline while she was in the emergency room. She is still currently in the emergency room waiting for a bed but her sodium level has improved up to 126 millimoles per L. She otherwise has no other neurological sequelae with regard to the hyponatremia other than perhaps maybe the a for mentioned weakness. Renal consultation was requested due to her acute hyponatremia. The patient is quite familiar to me as I have taking care of her before with regard to her issues with hyponatremia in the past. During those hospitalizations, it was felt that her hyponatremia was secondary to medications, specifically, hydrochlorothiazide and Lexapro which were discontinued. On some of her repeat hospitalizations for hyponatremia, it is appears that she did not stick to a fluid restriction and was restarted on hydrochlorothiazide or Lexapro which presumably precipitated the event all over again. She is not on hydrochlorothiazide at this time but as already mentioned, she was restarted on Lexapro just recently. It would seem that the patient is exquisitely sensitive to SSRIs as well as thiazide diuretics with regard to her propensity for developing hyponatremia. Since her admission, her sodium level has been slowly improving and she has been off Lexapro and instituted back on her home fluid restriction of 1500 cc per day. Review of Systems Review of Systems: As per HPI. [facility]
[2021-04-28] MEDS: hydrALAZINE HCL 50 MG TABLET PO (18:08)
[2021-04-28] MEDS: RIVAROXABAN 15 MG TABLET PO (18:08)
--- NOTE | 2021-04-28 18:15 | PC.NURSE ---
Doctor came to speak with patient
--- NOTE | 2021-04-28 18:50 | ADMGEN ---
This patient, Beth Aaron, was admitted to Medical Room 256-. Patient/family oriented to hospital policies and general routines including ID bracelet, bed and alarms, visiting hours, pain management, procedures, bathroom and other care routines, personal items, smoking policy, room service/diet, and visiting hours. Information on how to activate the Rapid Response Team has been discussed. Patient/Family are encouraged to report perceived risks to care and to ask questions if they do not understand what they are told or what they should do.
[2021-04-28 22:14] LABS: Urea Random Urine 203 MG/DL
[2021-04-28] MEDS: carvediloL 3.125 MG TABLET PO (22:47)
[2021-04-28 23:23] LABS: Creatinine Urine 22.3 mg/dL
[2021-04-29] VITALS (14 sets, daily range): BP systolic 102–181; BP diastolic 48–71; PULSE 45–64; RESP 16–18; TEMP 36.1–36.3; O2SAT 94–97
[2021-04-29 00:22] LABS: Sodium 126 mmol/L (137-145)
--- NOTE | 2021-04-29 03:40 | PHAR ---
Lifitegrast [Xiidra] 5 % Dropperette 1 DROP IN EACH EYE EVERY 12HRS VERIFIED IN PHARMACY AND SENT TO FLOOR (2MED)
[2021-04-29 04:19] LABS: Sodium Urine Random 41 meq/L
[2021-04-29] MEDS: ACETAMINOPHEN 500 MG TABLET PO (04:54)
[2021-04-29 06:04] LABS: Basophils Percent Auto 0.4 % (0.2-1.2); Eosinophils Absolute Auto 0.1 K/mm3 (0-0.3); Hematocrit 32.5 % (37.0-47.0); Hemoglobin 11.3 g/dL (12.0-15.0); Immature Granulocyte Absolute 0.02 K/mm3 (0.00-0.031); Immature Granulocyte Percent A 0.3 % (0-0.5); Lymphocytes Absolute Auto 1.47 K/mm3 (0.9-3.2); Lymphocytes Percent Auto 21.8 % (18.3-44.2); Mean Corpuscular HGB Conc 34.8 g/dl (32-36); Mean Corpuscular Hemoglobin 32.9 pg (26-34); Mean Corpuscular Volume 94.8 fl (80-100); Mean Platelet Volume 9.5 fl (7.4-10.4); Monocytes Absolute Auto 0.9 K/mm3 (0.1-0.6); Monocytes Percent Auto 13.2 % (2.6-8.5); Neutrophils Absolute Auto 4.3 K/mm3 (1.3-6.7); Neutrophils Percent Auto 63.3 % (45.5-73.1); Platelet Count Result 225 k/mm3 (150-375); Red Blood Count 3.43 M/mm3 (4.2-5.4); Red Cell Distribution Width 12.4 % (11.5-14.5); White Blood Count 6.7 K/mm3 (4.5-10.0)
[2021-04-29 06:21] LABS: Alanine Aminotransferase 21 U/L (4-35); Albumin Level 3.3 g/dL (3.5-5.1); Alkaline Phosphatase 84 U/L (38-126); Anion Gap 2 mmol/L (8-16); Aspartate Amino Transferase 27 U/L (14-36); Bilirubin,Total 0.7 mg/dL (0.2-1.3); Blood Urea Nitrogen 16 mg/dL (7-17); Calcium 8.4 mg/dL (8.4-10.2); Carbon Dioxide 26 mmol/L (22-30); Chloride 100 mmol/L (98-107); Estimated CRCL calculation 46 ml/min; Estimated Glomerular Filt Rate 60; Glucose 93 mg/dL (65-110); Potassium 3.7 mmol/L (3.4-5.0); Sodium 128 mmol/L (137-145)
[2021-04-29] MEDS: SODIUM CHLORIDE 0.9% IV 1,000 ML 75 ML IV CONT ×2 (07:13→18:15)
[2021-04-29] MEDS: FAMOTIDINE 20 MG TABLET PO ×2 (07:58→21:03)
[2021-04-29] MEDS: busPIRone HCL 10 MG TABLET PO ×2 (07:58→18:14)
[2021-04-29] MEDS: carvediloL 3.125 MG TABLET PO ×2 (07:59→21:02)
[2021-04-29] MEDS: CHOLECALCIFEROL 1,000 UNITS TABLET 1000 UNITS PO (07:59)
[2021-04-29] MEDS: hydrALAZINE HCL 50 MG TABLET PO ×2 (08:00→18:14)
[2021-04-29] MEDS: FLECAINIDE ACETATE 50 MG TABLET 150 MG PO ×2 (08:00→21:02)
--- NOTE | 2021-04-29 11:18 | PM.IMPN ---
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 Status: Acute Assessment and Plan: For AFib on Xarelto continue (3) Dyslipidemia: Code(s): E78.5 - Hyperlipidemia, unspecified Status: Acute Assessment and Plan: Continue home medication diet and exercise (4) Anxiety: Code(s): F41.9 - Anxiety disorder, unspecified Status: Acute Assessment and Plan: May need to DC Lexapro change to xanax smaller dose BID pt is feeling very anxious here (5) Nausea: Code(s): R11.0 - Nausea Status: Acute Assessment and Plan: Most likely related to hyponatremia resolved (6) Hypertension: Qualifiers: Hypertension type: unspecified Qualified Code(s): I10 - Essential (primary) hypertension Code(s): I10 - Essential (primary) hypertension Status: Acute Assessment and Plan: Continue home medication hold hydralazine if blood pressure less than 130/70 (7) COPD (chronic obstructive pulmonary disease): Qualifiers: COPD type: unspecified COPD Qualified Code(s): J44.9 - Chronic obstructive pulmonary disease, unspecified Code(s): J44.9 - Chronic obstructive pulmonary disease, unspecified Status: Chronic Assessment and Plan: Stable continue home medication (8) Paroxysmal atrial fibrillation: Code(s): I48.0 - Paroxysmal atrial fibrillation Status: Chronic Assessment and Plan: On Coreg and flecainide and Xarelto continue (9) Weakness: Code(s): R53.1 - Weakness Status: Acute Assessment and Plan: PT OT evaluation Subjective Date/time seen: 04/29/21 11:18 Interval history: 80-year-old female who presents to the ED for evaluation of increasing generalized weakness along with nausea that started approximately few days ago. In the ED she was noted to have hyponatremia which is new and getting admitted for further treatment. She stated that she was recently started on medication call Lexapro for her anxiety after which she started feeling nauseous. sodium has improve from 121 to 128 today pt is very anxious describes burning throat and burning urine, will check ua on her. Review of Systems Review of Systems: All systems reviewed & are unremarkable except as noted in HPI and below Exam Narrative: Alert Lower extremity negative edema Objective Data Vital Signs Vital Signs: Vital Signs - 24 hr 04/28/21 11:30 04/28/21 11:45 04/28/21 12:02 Temperature Pulse Rate 45 L 44 L 59 L Respiratory Rate 22 H 32 H 20 Blood Pressure Pulse Oximetry 04/28/21 12:15 04/28/21 12:30 04/28/21 12:52 Temperature Pulse Rate 52 L 51 L 52 L Respiratory Rate 16 21 H Blood Pressure Pulse Oximetry 97 04/28/21 12:55 04/28/21 12:57 04/28/21 13:00 Temperature Pulse Rate 48 L 51 L 47 L Respiratory Rate 19 19 14 Blood Pressure 145/131 H 153/66 H Pulse Oximetry 97 97 97 04/28/21 13:16 04/28/21 13:31 04/28/21 13:45 Temperature Pulse Rate 47 L 47 L 46 L Respiratory Rate 19 17 17 Blood Pressure Pulse Oximetry 04/28/21 14:00 04/28/21 14:15 04/28/21 14:31 Temperature Pulse Rate 52 L 51 L 53 L Respiratory Rate 23 H 18 17 Blood Pressure Pulse Oximetry 97 04/28/21 14:45 04/28/21 15:00 04/28/21 15:19 Temperature Pulse Rate 54 L 50 L 50 L Respiratory Rate 16 16 18 Blood Pressure Pulse Oximetry 95 94 94 04/28/21 15:34 04/28/21 15:45 04/28/21 16:00 Temperature Pulse Rate 46 L 45 L 59 L Respiratory Rate 28 H 16 18 Blood Pressure 143/62 H Pulse Oximetry 95 95 97 04/28/21 16:01 04/28/21 16:15 04/28/21 16:32 Temperature Pulse Rate 6
[2021-04-29] MEDS: hydrALAZINE HCL 50 MG TABLET 100 MG PO (11:37)
[2021-04-29 12:35] LABS: Sodium 131 mmol/L (137-145)
--- NOTE | 2021-04-29 13:11 | PM.PNNEP ---
Progress Note: A&P Assessment and Plan (1) Acute hyponatremia: Code(s): E87.1 - Hypo-osmolality and hyponatremia Status: Acute Assessment and Plan: presumably due to restart/taking lexapro (SSRI) again extensive evaluation done on previous hospitalizations so no need to repeat this agree with re-instiution of fluid restriction hold lexapro follow trend of repeat sodium levels (2) Hypertension: Qualifiers: Hypertension type: unspecified Qualified Code(s): I10 - Essential (primary) hypertension Code(s): I10 - Essential (primary) hypertension Status: Acute Assessment and Plan: erratic and difficult to control at times reasonable control at this time follow trend of hemodynamics (3) Weakness: Code(s): R53.1 - Weakness Status: Acute Assessment and Plan: presumably due to #1 PT/OT as tolerated (4) Anxiety: Code(s): F41.9 - Anxiety disorder, unspecified Status: Chronic Assessment and Plan: chronic issue/problems would advocate NOT to treat with SSRIs given her issues with #1 Will continue to follow. Subjective Date/time seen: 04/29/21 13:11 Major complaint is that of fluctuating nausea as well as increased level of anxiety/anxiousness; sodium appears to be slowly improving with current interventions; no apparent distress voiced; no events/issues overnight or earlier this morning. Exam Narrative: General: WD/WN female in NAD Heart: normal S1 and S2; no rub Lungs: clear to auscultation Abdomen: soft, nontender, nondistended, positive bowel sounds Extremities: no cyanosis or clubbing; no edema Skin: warm and dry Objective Data Vital Signs Vital Signs: Vital Signs Temp Pulse Resp BP Pulse Ox 04/29/21 12:00 51 L 04/29/21 11:30 139/49 L 04/29/21 10:10 45 L 04/29/21 08:00 52 L 04/29/21 07:59 64 04/29/21 06:00 36.2 C L 53 L 16 181/71 H 94 04/29/21 04:00 46 L 04/29/21 00:00 51 L 04/28/21 22:47 60 04/28/21 22:00 36.6 C 62 18 123/61 96 04/28/21 20:00 60 04/28/21 19:47 63 04/28/21 19:29 18 96 04/28/21 19:00 36.6 C 74 20 100/80 99 04/28/21 18:31 60 18 143/62 H 96 04/28/21 16:45 97 04/28/21 16:32 97 04/28/21 16:15 58 L 14 96 Intake/Output Intake/Output: Intake & Output 04/26/21 04/27/21 04/28/21 04/29/21 23:59 23:59 23:59 23:59 Intake Total 1000 1120 1400 Output Total 1600 Balance 1000 1120 -200 Meds/Results Medications: Active Medications Generic Name Dose Route Start Last Admin Trade Name Freq PRN Reason Stop Dose Admin Acetaminophen 500 mg 04/28/21 03:40 04/29/21 04:54 Acetaminophen 500 Mg Tablet PO 500 mg Q6H PRN Administration Pain Albuterol 1 puff 04/28/21 03:40 Albuterol Sulfate (*Sp) Aerosol 1 Puff INHALATION Q3-6H PRN wheezing Alprazolam 0.125 mg 04/29/21 17:00 Alprazolam (*Crx) 0.125 Mg Tablet PO BID MARTIN Bisacodyl 10 mg 04/29/21 15:37 Bisacodyl 10 Mg Suppository RECTAL QAM PRN Constipation Buspirone HCl 10 mg 04/29/21 09:00 04/29/21 07:58 Buspirone Hcl 10 Mg Tablet PO 10 mg BID MARTIN Administration Carvedilol 3.125 mg 04/28/21 09:00 04/29/21 07:59 Carvedilol 3.125 Mg Tablet PO 3.125 mg Q12HR MARTIN Administration Famotidine 20 mg 04/28/21 09:00 04/29/21 07:58 Famotidine 20 Mg Tablet PO 20 mg Q12HR MARTIN Administration Flecainide Acetate 150 mg 04/28/21 09:00 04/29/21 08:00 Flecainide Acetate 50 Mg Tablet PO 150 mg Q12HR MARTIN Administration Fluticasone Propionate 2 spray 04/28/21 09:00 04/28/21 09:27 Fluticasone Propionate 0.05% Na Spr 16 Gm Btl (*Bkc) NASAL 2 spray DAILY MARTIN Administration Home Med 1 each 04/29/21 09:00 04/29/21 08:00 Lifitegrast [Xiidra] 5 % Dropperette EACH EYE 05/29/21 08:59 1 each Q12HR MARTIN Administration Hydralaz
[2021-04-29 17:25] LABS: Sodium 132 mmol/L (137-145)
[2021-04-29 17:28] LABS: Anion Gap 5 mmol/L (8-16); Blood Urea Nitrogen 18 mg/dL (7-17); Calcium 8.5 mg/dL (8.4-10.2); Carbon Dioxide 26 mmol/L (22-30); Chloride 101 mmol/L (98-107); Estimated CRCL calculation 51 ml/min; Estimated Glomerular Filt Rate > 60; Glucose 99 mg/dL (65-110); Potassium 3.7 mmol/L (3.4-5.0); Sodium 132 mmol/L (137-145)
[2021-04-29] MEDS: ALPRAZolam (*CRX) 0.125 MG TABLET PO (18:13)
[2021-04-29] MEDS: FLUTICASONE PROPIONATE 0.05% NA SPR 16 GM BTL (*BKC) 2 SPRAY NASAL (18:14)
[2021-04-29] MEDS: RIVAROXABAN 15 MG TABLET PO (18:15)
[2021-04-30] VITALS (13 sets, daily range): BP systolic 99–145; BP diastolic 40–56; PULSE 40–58; RESP 16–18; TEMP 36.2–36.5; O2SAT 94–99
[2021-04-30] MEDS: busPIRone HCL 10 MG TABLET PO ×2 (09:15→17:39)
[2021-04-30] MEDS: ALPRAZolam (*CRX) 0.125 MG TABLET PO ×2 (09:15→17:38)
[2021-04-30] MEDS: FAMOTIDINE 20 MG TABLET PO ×2 (09:15→21:29)
[2021-04-30] MEDS: FLECAINIDE ACETATE 50 MG TABLET 150 MG PO ×2 (09:15→21:28)
[2021-04-30] MEDS: LOSARTAN POTASSIUM 100 MG TABLET PO (09:15)
[2021-04-30] MEDS: CHOLECALCIFEROL 1,000 UNITS TABLET 1000 UNITS PO (09:15)
[2021-04-30] MEDS: SODIUM CHLORIDE 0.9% IV 1,000 ML 75 ML IV CONT ×2 (09:16→22:24)
[2021-04-30] MEDS: hydrALAZINE HCL 50 MG TABLET PO ×2 (09:18→17:39)
[2021-04-30 09:49] LABS: Basophils Percent Auto 0.5 % (0.2-1.2); Eosinophils Absolute Auto 0.1 K/mm3 (0-0.3); Eosinophils Percent Auto 1.2 % (0-4.4); Hematocrit 34.7 % (37.0-47.0); Hemoglobin 11.5 g/dL (12.0-15.0); Immature Granulocyte Absolute 0.03 K/mm3 (0.00-0.031); Immature Granulocyte Percent A 0.4 % (0-0.5); Lymphocytes Absolute Auto 1.35 K/mm3 (0.9-3.2); Lymphocytes Percent Auto 16.5 % (18.3-44.2); Mean Corpuscular HGB Conc 33.1 g/dl (32-36); Mean Corpuscular Hemoglobin 32.1 pg (26-34); Mean Corpuscular Volume 96.9 fl (80-100); Mean Platelet Volume 9.1 fl (7.4-10.4); Monocytes Absolute Auto 0.7 K/mm3 (0.1-0.6); Monocytes Percent Auto 9.1 % (2.6-8.5); Neutrophils Absolute Auto 5.9 K/mm3 (1.3-6.7); Neutrophils Percent Auto 72.3 % (45.5-73.1); Platelet Count Result 212 k/mm3 (150-375); Red Blood Count 3.58 M/mm3 (4.2-5.4); Red Cell Distribution Width 12.7 % (11.5-14.5); White Blood Count 8.2 K/mm3 (4.5-10.0)
[2021-04-30 09:55] LABS: Alanine Aminotransferase 30 U/L (4-35); Albumin Level 3.7 g/dL (3.5-5.1); Alkaline Phosphatase 90 U/L (38-126); Anion Gap 8 mmol/L (8-16); Aspartate Amino Transferase 30 U/L (14-36); Bilirubin,Total 0.5 mg/dL (0.2-1.3); Blood Urea Nitrogen 15 mg/dL (7-17); Calcium 8.5 mg/dL (8.4-10.2); Carbon Dioxide 23 mmol/L (22-30); Chloride 100 mmol/L (98-107); Estimated CRCL calculation 51 ml/min; Estimated Glomerular Filt Rate > 60; Glucose 166 mg/dL (65-110); Potassium 3.7 mmol/L (3.4-5.0); Sodium 131 mmol/L (137-145)
--- NOTE | 2021-04-30 12:38 | PM.PNNEP ---
Progress Note: A&P Assessment and Plan (1) Acute hyponatremia: Code(s): E87.1 - Hypo-osmolality and hyponatremia Status: Acute Assessment and Plan: presumably due to restart/taking lexapro (SSRI) again extensive evaluation done on previous hospitalizations so no need to repeat this agree with re-instiution of fluid restriction hold lexapro follow trend of repeat sodium levels (2) Hypertension: Qualifiers: Hypertension type: unspecified Qualified Code(s): I10 - Essential (primary) hypertension Code(s): I10 - Essential (primary) hypertension Status: Acute Assessment and Plan: erratic and difficult to control at times reasonable control at this time follow trend of hemodynamics (3) Weakness: Code(s): R53.1 - Weakness Status: Acute Assessment and Plan: presumably due to #1 PT/OT as tolerated (4) Anxiety: Code(s): F41.9 - Anxiety disorder, unspecified Status: Chronic Assessment and Plan: chronic issue/problems would advocate NOT to treat with SSRIs given her issues with #1 Will continue to follow - not opposed to discharge from renal perspective if otherwise medically stable. Subjective Date/time seen: 04/30/21 12:38 Sodium has improved if not stabilized in the last 24 - 48 hours; no apparent distress to report at this time; overall, seems to be feeling better; no other acute issues or problems noted; no events overnight or earlier this morning. Exam Narrative: General: WD/WN female in NAD Heart: normal S1 and S2; no rub Lungs: clear to auscultation Abdomen: soft, nontender, nondistended, positive bowel sounds Extremities: no cyanosis or clubbing; no edema Skin: warm and dry Objective Data Vital Signs Vital Signs: Vital Signs Temp Pulse Resp BP Pulse Ox 04/30/21 12:32 40 L 16 124/49 L 94 04/30/21 12:00 44 L 04/30/21 09:15 56 L 04/30/21 08:00 58 L 04/30/21 04:22 36.2 C L 48 L 18 145/52 H 97 04/30/21 04:00 50 L 04/30/21 00:00 44 L 04/29/21 21:02 60 04/29/21 20:32 36.1 C L 51 L 18 115/52 L 97 04/29/21 20:00 54 L 04/29/21 16:58 52 L 145/48 H Intake/Output Intake/Output: Intake & Output 04/27/21 04/28/21 04/29/21 04/30/21 23:59 23:59 23:59 23:59 Intake Total 1000 1120 3020 1870 Output Total 2600 Balance 1000 5419 429 8865 Meds/Results Medications: Active Medications Generic Name Dose Route Start Last Admin Trade Name Freq PRN Reason Stop Dose Admin Acetaminophen 500 mg 04/28/21 03:40 04/29/21 04:54 Acetaminophen 500 Mg Tablet PO 500 mg Q6H PRN Administration Pain Albuterol 1 puff 04/28/21 03:40 Albuterol Sulfate (*Sp) Aerosol 1 Puff INHALATION Q3-6H PRN wheezing Alprazolam 0.125 mg 04/29/21 17:00 04/30/21 09:15 Alprazolam (*Crx) 0.125 Mg Tablet PO 0.125 mg BID MARTIN Administration Bisacodyl 10 mg 04/29/21 15:37 Bisacodyl 10 Mg Suppository RECTAL QAM PRN Constipation Buspirone HCl 10 mg 04/29/21 09:00 04/30/21 09:15 Buspirone Hcl 10 Mg Tablet PO 10 mg BID MARTIN Administration Famotidine 20 mg 04/28/21 09:00 04/30/21 09:15 Famotidine 20 Mg Tablet PO 20 mg Q12HR MARTIN Administration Flecainide Acetate 150 mg 04/28/21 09:00 04/30/21 09:15 Flecainide Acetate 50 Mg Tablet PO 150 mg Q12HR MARTIN Administration Fluticasone Propionate 2 spray 04/28/21 09:00 04/30/21 09:17 Fluticasone Propionate 0.05% Na Spr 16 Gm Btl (*Bkc) NASAL Not Given DAILY MARTIN Home Med 1 each 04/29/21 09:00 04/30/21 09:17 Lifitegrast [Xiidra] 5 % Dropperette EACH EYE 05/29/21 08:59 1 each Q12HR MARTIN Administration Hydralazine HCl 50 mg 04/28/21 03:40 Hydralazine Hcl 50 Mg Tablet PO QPM PRN Hypertension Hydralazine HCl 100 mg 04/28/21 12:04/30/21 12:51 Hydralazine Hcl 50 Mg Tablet PO 100 mg [facility]ON [facility]
--- NOTE | 2021-04-30 12:48 | PM.IMPN ---
Progress Note: A&P Assessment and Plan (1) Acute hyponatremia: Code(s): E87.1 - Hypo-osmolality and hyponatremia Status: Acute Assessment and Plan: Severe hyponatremia on admission,improving to 131, continue 1500cc fluid restriction, nephrology rounding, holding HCTZ and lexapro. Plan dc tomorrow. (2) Chronic anticoagulation: Code(s): Z79.01 - custodial (current) use of anticoagulants Status: Acute Assessment and Plan: For AFib on Xarelto continue (3) Dyslipidemia: Code(s): E78.5 - Hyperlipidemia, unspecified Status: Acute Assessment and Plan: Continue home medication diet and exercise (4) Anxiety: Code(s): F41.9 - Anxiety disorder, unspecified Status: Acute Assessment and Plan: May need to DC Lexapro change to xanax smaller dose BID pt is feeling very anxious here Adviced Cymbalta or Effexor on discharge as a antidepressant pt wants to discuss with er PCP before starting it (5) Nausea: Code(s): R11.0 - Nausea Status: Resolved Assessment and Plan: Most likely related to hyponatremia resolved (6) Hypertension: Qualifiers: Hypertension type: unspecified Qualified Code(s): I10 - Essential (primary) hypertension Code(s): I10 - Essential (primary) hypertension Status: Acute Assessment and Plan: Continue home medication hold hydralazine if blood pressure less than 130/70 (7) COPD (chronic obstructive pulmonary disease): Qualifiers: COPD type: unspecified COPD Qualified Code(s): J44.9 - Chronic obstructive pulmonary disease, unspecified Code(s): J44.9 - Chronic obstructive pulmonary disease, unspecified Status: Chronic Assessment and Plan: Stable continue home medication (8) Paroxysmal atrial fibrillation: Code(s): I48.0 - Paroxysmal atrial fibrillation Status: Chronic Assessment and Plan: On Coreg and flecainide and Xarelto continue (9) Weakness: Code(s): R53.1 - Weakness Status: Acute Assessment and Plan: PT OT evaluation Subjective Date/time seen: 04/30/21 12:48 Interval history: 80-year-old female who presents to the ED for evaluation of increasing generalized weakness along with nausea that started approximately few days ago. In the ED she was noted to have hyponatremia which is new and getting admitted for further treatment. She stated that she was recently started on medication call SiVerionapro for her anxiety after which she started feeling nauseous. sodium has improve from 121 to 131 today. long discussion about antidepressants and hyponatrema I believe Effexor and cymbalta are good options for ther patient. Pt wants to discuss with her PCP. Review of Systems Review of Systems: All systems reviewed & are unremarkable except as noted in HPI and below Exam Narrative: Alert RRR chest is clear Abdo soft non tender Neuro no focal deficit pt is very anxious Lower extremity negative edema Objective Data Vital Signs Vital Signs: Vital Signs - 24 hr 04/29/21 14:10 04/29/21 16:00 04/29/21 16:58 Temperature 36.3 C L Pulse Rate 56 L 53 L 52 L Respiratory Rate 16 Blood Pressure 102/48 L 145/48 H Pulse Oximetry 97 04/29/21 20:00 04/29/21 20:32 04/29/21 21:02 Temperature 36.1 C L Pulse Rate 54 L 51 L 60 Respiratory Rate 18 Blood Pressure 115/52 L Pulse Oximetry 97 04/30/21 00:00 04/30/21 04:00 04/30/21 04:22 Temperature 36.2 C L Pulse Rate 44 L 50 L 48 L Respiratory Rate 18 Blood Pressure 145/52 H Pulse Oximetry 97 04/30/21 08:00 04/30/21 09:15 04/30/21 12:32 Temperature Pulse Rate 58 L 56 L 40 L Respiratory Rate 16 Blood Pressure 124/49 L Pulse Oximetry 94 Intake/Output Intake/Output: Intake & Output 04/27/21 04/28/21 04/29/21 04/30/21 23:59 23:59 23:59 23:59 Intake Total 1000 1120 3020 1630 Output Total 2600 Balance 1000 6403 620 9331
[2021-04-30] MEDS: hydrALAZINE HCL 50 MG TABLET 100 MG PO (12:51)
[2021-04-30] MEDS: RIVAROXABAN 15 MG TABLET PO (17:39)
[2021-05-01] VITALS (11 sets, daily range): BP systolic 119–148; BP diastolic 45–52; PULSE 39–73; RESP 14–16; TEMP 36.2–37.1; O2SAT 98–99
[2021-05-01] MEDS: ALPRAZolam (*CRX) 0.125 MG TABLET PO ×2 (08:28→17:25)
[2021-05-01] MEDS: LOSARTAN POTASSIUM 100 MG TABLET PO (08:28)
[2021-05-01] MEDS: CHOLECALCIFEROL 1,000 UNITS TABLET 1000 UNITS PO (08:29)
[2021-05-01] MEDS: polyethylene glycoL 3350 17 GM POWD.PACK PO (08:29)
[2021-05-01] MEDS: busPIRone HCL 10 MG TABLET PO ×2 (08:29→17:26)
[2021-05-01] MEDS: FAMOTIDINE 20 MG TABLET PO ×2 (08:29→20:13)
[2021-05-01] MEDS: hydrALAZINE HCL 50 MG TABLET PO ×2 (08:29→17:26)
[2021-05-01 08:58] LABS: Basophils Percent Auto 0.5 % (0.2-1.2); Eosinophils Absolute Auto 0.1 K/mm3 (0-0.3); Eosinophils Percent Auto 1.9 % (0-4.4); Hemoglobin 10.5 g/dL (12.0-15.0); Immature Granulocyte Absolute 0.01 K/mm3 (0.00-0.031); Immature Granulocyte Percent A 0.2 % (0-0.5); Lymphocytes Percent Auto 20.6 % (18.3-44.2); Mean Corpuscular HGB Conc 32.8 g/dl (32-36); Mean Corpuscular Hemoglobin 31.7 pg (26-34); Mean Corpuscular Volume 96.7 fl (80-100); Mean Platelet Volume 9.2 fl (7.4-10.4); Monocytes Absolute Auto 0.9 K/mm3 (0.1-0.6); Monocytes Percent Auto 14.3 % (2.6-8.5); Neutrophils Percent Auto 62.5 % (45.5-73.1); Platelet Count Result 196 k/mm3 (150-375); Red Blood Count 3.31 M/mm3 (4.2-5.4); Red Cell Distribution Width 12.9 % (11.5-14.5); White Blood Count 6.3 K/mm3 (4.5-10.0)
[2021-05-01 09:10] LABS: Alanine Aminotransferase 26 U/L (4-35); Alkaline Phosphatase 82 U/L (38-126); Anion Gap 4 mmol/L (8-16); Aspartate Amino Transferase 25 U/L (14-36); Bilirubin,Total 0.4 mg/dL (0.2-1.3); Blood Urea Nitrogen 15 mg/dL (7-17); Calcium 8.3 mg/dL (8.4-10.2); Carbon Dioxide 27 mmol/L (22-30); Chloride 104 mmol/L (98-107); Estimated CRCL calculation 51 ml/min; Estimated Glomerular Filt Rate > 60; Glucose 87 mg/dL (65-110); Sodium 135 mmol/L (137-145)
--- NOTE | 2021-05-01 11:08 | PM.PNNEP ---
Progress Note: A&P Assessment and Plan (1) Acute hyponatremia: Code(s): E87.1 - Hypo-osmolality and hyponatremia Status: Acute Assessment and Plan: resolving presumably due to restart/taking lexapro (SSRI) again extensive evaluation done on previous hospitalizations so no need to repeat this continue fluid restriction hold lexapro (and would not likely restart) follow trend of repeat sodium levels (2) Hypertension: Qualifiers: Hypertension type: unspecified Qualified Code(s): I10 - Essential (primary) hypertension Code(s): I10 - Essential (primary) hypertension Status: Acute Assessment and Plan: erratic and difficult to control at times reasonable control at this time follow trend of hemodynamics (3) Weakness: Code(s): R53.1 - Weakness Status: Acute Assessment and Plan: presumably due to #1 PT/OT as tolerated (4) Anxiety: Code(s): F41.9 - Anxiety disorder, unspecified Status: Chronic Assessment and Plan: chronic issue/problems would advocate NOT to treat with SSRIs given her issues with #1 Not opposed to discharge from renal perspective if otherwise medically stable Will continue to follow from a distance Subjective Date/time seen: 05/01/21 11:08 No new issues or problems to report; sodium level continues to improvement free water fluid restriction and discontinuance of lexapro; issues with anxiety seem to be doing better as well; no events overnight or earlier this AM. Exam Narrative: General: WD/WN female in NAD Heart: normal S1 and S2; no rub Lungs: clear to auscultation Abdomen: soft, nontender, nondistended, positive bowel sounds Extremities: no cyanosis or clubbing; no edema Skin: warm and dry Objective Data Vital Signs Vital Signs: Vital Signs Temp Pulse Resp BP Pulse Ox 05/01/21 04:13 36.2 C L 73 16 136/52 L 99 05/01/21 04:00 42 L 05/01/21 03:43 39 L 05/01/21 00:00 46 L 04/30/21 21:28 50 L 04/30/21 20:17 36.5 C 56 L 16 138/52 L 98 04/30/21 20:00 58 L 04/30/21 17:38 54 L 18 134/56 L 95 04/30/21 16:00 50 L 04/30/21 14:00 36.3 C L 52 L 18 99/40 L 99 04/30/21 12:32 40 L 16 124/49 L 94 Intake/Output Intake/Output: Intake & Output 04/28/21 04/29/21 04/30/21 05/01/21 23:59 23:59 23:59 23:59 Intake Total 1120 3020 2870 932 Output Total 2600 500 Balance 6511 110 8957 932 Meds/Results Medications: Active Medications Generic Name Dose Route Start Last Admin Trade Name Freq PRN Reason Stop Dose Admin Acetaminophen 500 mg 04/28/21 03:40 04/29/21 04:54 Acetaminophen 500 Mg Tablet PO 500 mg Q6H PRN Administration Pain Albuterol 1 puff 04/28/21 03:40 Albuterol Sulfate (*Sp) Aerosol 1 Puff INHALATION Q3-6H PRN wheezing Alprazolam 0.125 mg 04/29/21 17:00 05/01/21 08:28 Alprazolam (*Crx) 0.125 Mg Tablet PO 0.125 mg BID MARTIN Administration Bisacodyl 10 mg 04/29/21 15:37 Bisacodyl 10 Mg Suppository RECTAL QAM PRN Constipation Buspirone HCl 10 mg 04/29/21 09:00 05/01/21 08:29 Buspirone Hcl 10 Mg Tablet PO 10 mg BID MARTIN Administration Docusate Sodium 100 mg 05/01/21 21:00 Docusate Sodium 100 Mg Capsule PO Q12HR MARTIN Famotidine 20 mg 04/28/21 09:00 05/01/21 08:29 Famotidine 20 Mg Tablet PO 20 mg Q12HR MARTIN Administration Flecainide Acetate 150 mg 04/28/21 09:00 05/01/21 08:31 Flecainide Acetate 50 Mg Tablet PO Not Given Q12HR MARTIN Fluticasone Propionate 2 spray 04/28/21 09:00 05/01/21 08:33 Fluticasone Propionate 0.05% Na Spr 16 Gm Btl (*Bkc) NASAL Not Given DAILY MARTIN Guaifenesin 600 mg 05/01/21 09:40 Guaifenesin 12 Hr 600 Mg Tabcr PO Q12HR PRN Congestion Home Med 1 each 04/29/21 09:00 05/01/21 08:32 Lifitegrast [Xiidra] 5 % Dropperette EACH EYE 05/29/21 08:59 1 each
[2021-05-01] MEDS: hydrALAZINE HCL 50 MG TABLET 100 MG PO (12:19)
[2021-05-01] MEDS: LORATADINE 10 MG TABLET PO (12:20)
[2021-05-01] MEDS: SODIUM CHLORIDE 0.9% IV 1,000 ML 75 ML IV CONT (12:20)
[2021-05-01] MEDS: VENLAFAXINE HCL XR 37.5 MG CAP PO (12:20)
--- NOTE | 2021-05-01 12:56 | PM.IMPN ---
Progress Note: A&P Assessment and Plan (1) Acute hyponatremia: Code(s): E87.1 - Hypo-osmolality and hyponatremia Status: Acute Assessment and Plan: -Severe hyponatremia on admission 121 -Improving today 135 -continue 1500cc fluid restriction, pt states she has been doing this since discharged from last admission -TSH WNL -nephrology rounding, holding HCTZ and lexapro. -recheck tomorrow and hopefully discharge (2) Chronic anticoagulation: Code(s): Z79.01 - half-way (current) use of anticoagulants Status: Acute Assessment and Plan: -For AFib on Xarelto continue (3) Dyslipidemia: Code(s): E78.5 - Hyperlipidemia, unspecified Status: Acute Assessment and Plan: -Continue home medication diet and exercise (4) Anxiety: Code(s): F41.9 - Anxiety disorder, unspecified Status: Acute Assessment and Plan: -Lexapro stopped due to hyponatremia -On Buspar x 5 weeks -Started low dose of Xanax 0.125 mg BID with some improvement -Pt had long discussion with attending physician yesterday regarding starting Effexor. She would like to start that today. (5) Nausea: Code(s): R11.0 - Nausea Status: Resolved Assessment and Plan: -Most likely related to hyponatremia -resolved (6) Hypertension: Qualifiers: Hypertension type: unspecified Qualified Code(s): I10 - Essential (primary) hypertension Code(s): I10 - Essential (primary) hypertension Status: Acute Assessment and Plan: -Continue home medication -hold hydralazine if blood pressure less than 130/70 (7) COPD (chronic obstructive pulmonary disease): Qualifiers: COPD type: unspecified COPD Qualified Code(s): J44.9 - Chronic obstructive pulmonary disease, unspecified Code(s): J44.9 - Chronic obstructive pulmonary disease, unspecified Status: Chronic Assessment and Plan: -Stable continue home medication (8) Paroxysmal atrial fibrillation: Code(s): I48.0 - Paroxysmal atrial fibrillation Status: Chronic Assessment and Plan: -On Coreg and flecainide and Xarelto continue (9) Weakness: Code(s): R53.1 - Weakness Status: Acute Assessment and Plan: PT OT evaluation (10) Allergic rhinitis: Code(s): J30.9 - Allergic rhinitis, unspecified Status: Acute Assessment and Plan: -Claritin, Flonase Subjective Date/time seen: 05/01/21 12:56 Interval history: This is 80-year-old female who presents to the ED for evaluation of increasing generalized weakness along with nausea that started approximately few days ago. In the ED she was noted to have hyponatremia which is new and getting admitted for further treatment. She stated that she was recently started on medication call Lexapro for her anxiety after which she started feeling nauseous. She was admitted with hyponatremia last time it was severely low at 108. It was determined it was related to her hydrochlorothiazide and Lexapro which was stopped. After discussion with heel compressor and senior bi developer was decided to retry the Lexapro to help control her anxiety. Today she is feeling better. States her anxiety is improved. She notes that she would like to start the Effexor today. She does complain of constipation. Also has some post nasal drip. Stopped using her Flonase because it was making her nostrils bleed. Also wants mucinex for congestion. Review of Systems Review of Systems: General: Denies fevers Eyes: Denies vision changes ENT: Denies nasal congestion or sore throat Respiratory: Denies cough or shortness of breath Cardiovascular: Denies chest pain or lower extremity edema Gastrointestinal: Denies abdominal pain, vomiting, or diarrhea Genitourinary: Denies dysuria Musculoskeletal: Denies back pain Neurological: Denies headache or motor weakness Integumenta
[2021-05-01] MEDS: RIVAROXABAN 15 MG TABLET PO (17:25)
[2021-05-01] MEDS: DOCUSATE SODIUM 100 MG CAPSULE PO (20:13)
[2021-05-01] MEDS: FLECAINIDE ACETATE 50 MG TABLET 150 MG PO (20:15)
[2021-05-02] VITALS (10 sets, daily range): BP systolic 147; BP diastolic 57; PULSE 48–62; RESP 14–16; TEMP 36.2; O2SAT 97–98
[2021-05-02] MEDS: SODIUM CHLORIDE 0.9% IV 1,000 ML 75 ML IV CONT ×2 (01:47→15:19)
[2021-05-02 07:02] LABS: Basophils Percent Auto 0.6 % (0.2-1.2); Eosinophils Absolute Auto 0.2 K/mm3 (0-0.3); Eosinophils Percent Auto 2.5 % (0-4.4); Hematocrit 31.1 % (37.0-47.0); Hemoglobin 10.2 g/dL (12.0-15.0); Immature Granulocyte Absolute 0.03 K/mm3 (0.00-0.031); Immature Granulocyte Percent A 0.4 % (0-0.5); Lymphocytes Percent Auto 21.2 % (18.3-44.2); Mean Corpuscular HGB Conc 32.8 g/dl (32-36); Mean Corpuscular Hemoglobin 31.5 pg (26-34); Mean Platelet Volume 9.2 fl (7.4-10.4); Monocytes Absolute Auto 0.9 K/mm3 (0.1-0.6); Monocytes Percent Auto 12.1 % (2.6-8.5); Neutrophils Absolute Auto 4.5 K/mm3 (1.3-6.7); Neutrophils Percent Auto 63.2 % (45.5-73.1); Platelet Count Result 199 k/mm3 (150-375); Red Blood Count 3.24 M/mm3 (4.2-5.4); Red Cell Distribution Width 12.8 % (11.5-14.5); White Blood Count 7.1 K/mm3 (4.5-10.0)
[2021-05-02 07:13] LABS: Alanine Aminotransferase 25 U/L (4-35); Albumin Level 2.9 g/dL (3.5-5.1); Alkaline Phosphatase 82 U/L (38-126); Anion Gap 4 mmol/L (8-16); Aspartate Amino Transferase 25 U/L (14-36); Bilirubin,Total 0.4 mg/dL (0.2-1.3); Blood Urea Nitrogen 17 mg/dL (7-17); Calcium 8.3 mg/dL (8.4-10.2); Carbon Dioxide 27 mmol/L (22-30); Chloride 101 mmol/L (98-107); Estimated CRCL calculation 51 ml/min; Estimated Glomerular Filt Rate > 60; Glucose 86 mg/dL (65-110); Potassium 3.9 mmol/L (3.4-5.0); Sodium 132 mmol/L (137-145)
[2021-05-02] MEDS: polyethylene glycoL 3350 17 GM POWD.PACK PO (09:56)
[2021-05-02] MEDS: DOCUSATE SODIUM 100 MG CAPSULE PO ×2 (09:56→20:55)
[2021-05-02] MEDS: FLECAINIDE ACETATE 50 MG TABLET 150 MG PO ×2 (09:56→20:57)
[2021-05-02] MEDS: FAMOTIDINE 20 MG TABLET PO ×2 (09:58→20:57)
[2021-05-02] MEDS: LOSARTAN POTASSIUM 100 MG TABLET PO (09:58)
[2021-05-02] MEDS: LORATADINE 10 MG TABLET PO (09:58)
[2021-05-02] MEDS: ALPRAZolam (*CRX) 0.125 MG TABLET PO (09:58)
[2021-05-02] MEDS: busPIRone HCL 10 MG TABLET PO ×2 (09:58→17:04)
[2021-05-02] MEDS: CHOLECALCIFEROL 1,000 UNITS TABLET 1000 UNITS PO (09:58)
[2021-05-02] MEDS: VENLAFAXINE HCL XR 37.5 MG CAP PO (09:58)
[2021-05-02] MEDS: hydrALAZINE HCL 50 MG TABLET PO ×2 (09:59→17:04)
[2021-05-02] MEDS: FLUTICASONE PROPIONATE 0.05% NA SPR 16 GM BTL (*BKC) 2 SPRAY NASAL (10:00)
--- NOTE | 2021-05-02 11:13 | PM.IMPN ---
Progress Note: A&P Assessment and Plan (1) Acute hyponatremia: Code(s): E87.1 - Hypo-osmolality and hyponatremia Status: Acute Assessment and Plan: -Severe hyponatremia on admission 121 -Improving, now seems to be stable in the 130-132 range -continue 1500cc fluid restriction, pt states she has been doing this since discharged from last admission -TSH WNL -nephrology rounding, holding HCTZ and lexapro indefinitely (2) Chronic anticoagulation: Code(s): Z79.01 - [facility] (current) use of anticoagulants Status: Acute Assessment and Plan: -For AFib on Xarelto continue (3) Dyslipidemia: Code(s): E78.5 - Hyperlipidemia, unspecified Status: Acute Assessment and Plan: -Continue home medication diet and exercise (4) Anxiety: Code(s): F41.9 - Anxiety disorder, unspecified Status: Acute Assessment and Plan: -Lexapro stopped due to hyponatremia -On Buspar x 5 weeks -Started low dose of Xanax 0.125 mg BID with minimal improvement, will try increasing to 0.25 mg TID today and see if that helps -Pt had long discussion with attending physician regarding starting Effexor. She was also started on this but is aware she will not see immediate effects from this (5) Nausea: Code(s): R11.0 - Nausea Status: Resolved Assessment and Plan: -Most likely related to hyponatremia -resolved (6) Hypertension: Qualifiers: Hypertension type: unspecified Qualified Code(s): I10 - Essential (primary) hypertension Code(s): I10 - Essential (primary) hypertension Status: Acute Assessment and Plan: -Continue home medication -hold hydralazine if blood pressure less than 130/70 (7) COPD (chronic obstructive pulmonary disease): Qualifiers: COPD type: unspecified COPD Qualified Code(s): J44.9 - Chronic obstructive pulmonary disease, unspecified Code(s): J44.9 - Chronic obstructive pulmonary disease, unspecified Status: Chronic Assessment and Plan: -Stable continue home medication (8) Paroxysmal atrial fibrillation: Code(s): I48.0 - Paroxysmal atrial fibrillation Status: Chronic Assessment and Plan: -On Coreg and flecainide and Xarelto continue (9) Weakness: Code(s): R53.1 - Weakness Status: Acute Assessment and Plan: PT OT evaluation (10) Allergic rhinitis: Code(s): J30.9 - Allergic rhinitis, unspecified Status: Acute Assessment and Plan: -Celia Buitrago Subjective Date/time seen: 05/02/21 11:13 Interval history: This is 80-year-old female who presents to the ED for evaluation of increasing generalized weakness along with nausea that started approximately few days ago. In the ED she was noted to have hyponatremia which is new and getting admitted for further treatment. She stated that she was recently started on medication call Lexapro for her anxiety after which she started feeling nauseous. She was admitted with hyponatremia last time it was severely low at 108. It was determined it was related to her hydrochlorothiazide and Lexapro which was stopped. After discussion with program schedule clerk and inspector radar and electronics was decided to retry the Lexapro to help control her anxiety. Pt complains of increased anxiety today. Was unable to sleep last night due to the anxiety. Feels like her anxiety is causing her to have increased blood pressure as well. Still has constipation. No cp, palpitations, or sob. Review of Systems Review of Systems: General: Denies fevers Eyes: Denies vision changes ENT: + nasal congestion or sore throat Respiratory: Denies cough or shortness of breath Cardiovascular: Denies chest pain, mild LE extremity edema Gastrointestinal: Denies abdominal pain, vomiting, or diarrhea, +constipatoin Genitourinary: Denies dysuria Musculoskeletal: Denies back pain Neuro
[2021-05-02] MEDS: hydrALAZINE HCL 50 MG TABLET 100 MG PO (12:00)
[2021-05-02] MEDS: ALPRAZolam (*CRX) 0.25 MG TABLET PO ×2 (12:00→17:04)
[2021-05-02] MEDS: RIVAROXABAN 15 MG TABLET PO (17:04)
[2021-05-02] MEDS: MELATONIN 5 MG TABLET PO (20:55)
[2021-05-03] VITALS (13 sets, daily range): BP systolic 106–179; BP diastolic 48–69; PULSE 48–65; RESP 16–18; TEMP 36.4–36.8; O2SAT 95–98
[2021-05-03] MEDS: SODIUM CHLORIDE 0.9% IV 1,000 ML 75 ML IV CONT (04:31)
[2021-05-03] MEDS: ACETAMINOPHEN 500 MG TABLET PO ×2 (05:08→14:03)
[2021-05-03 06:18] LABS: Alanine Aminotransferase 30 U/L (4-35); Albumin Level 3.1 g/dL (3.5-5.1); Alkaline Phosphatase 80 U/L (38-126); Anion Gap 4 mmol/L (8-16); Aspartate Amino Transferase 29 U/L (14-36); Bilirubin,Total 0.3 mg/dL (0.2-1.3); Blood Urea Nitrogen 17 mg/dL (7-17); Calcium 8.5 mg/dL (8.4-10.2); Carbon Dioxide 27 mmol/L (22-30); Chloride 98 mmol/L (98-107); Estimated CRCL calculation 51 ml/min; Estimated Glomerular Filt Rate > 60; Glucose 84 mg/dL (65-110); Potassium 4.1 mmol/L (3.4-5.0); Sodium 129 mmol/L (137-145)
[2021-05-03 06:20] LABS: Basophils Percent Auto 0.6 % (0.2-1.2); Eosinophils Absolute Auto 0.2 K/mm3 (0-0.3); Eosinophils Percent Auto 2.8 % (0-4.4); Hematocrit 32.9 % (37.0-47.0); Hemoglobin 10.7 g/dL (12.0-15.0); Immature Granulocyte Absolute 0.01 K/mm3 (0.00-0.031); Immature Granulocyte Percent A 0.1 % (0-0.5); Lymphocytes Percent Auto 22.2 % (18.3-44.2); Mean Corpuscular HGB Conc 32.5 g/dl (32-36); Mean Corpuscular Hemoglobin 31.4 pg (26-34); Mean Corpuscular Volume 96.5 fl (80-100); Mean Platelet Volume 9.9 fl (7.4-10.4); Monocytes Absolute Auto 0.9 K/mm3 (0.1-0.6); Monocytes Percent Auto 12.7 % (2.6-8.5); Neutrophils Absolute Auto 4.2 K/mm3 (1.3-6.7); Neutrophils Percent Auto 61.6 % (45.5-73.1); Platelet Count Result 229 k/mm3 (150-375); Red Blood Count 3.41 M/mm3 (4.2-5.4); Red Cell Distribution Width 12.9 % (11.5-14.5); White Blood Count 6.8 K/mm3 (4.5-10.0)
[2021-05-03 07:35] LABS: Osmolality, Urine 185 mOsm/kg (50-1200)
[2021-05-03] MEDS: polyethylene glycoL 3350 17 GM POWD.PACK PO (08:47)
[2021-05-03] MEDS: FAMOTIDINE 20 MG TABLET PO ×2 (08:47→20:19)
[2021-05-03] MEDS: VENLAFAXINE HCL XR 37.5 MG CAP PO (08:47)
[2021-05-03] MEDS: CHOLECALCIFEROL 1,000 UNITS TABLET 1000 UNITS PO (08:47)
[2021-05-03] MEDS: LORATADINE 10 MG TABLET PO (08:47)
[2021-05-03] MEDS: busPIRone HCL 10 MG TABLET PO ×2 (08:47→16:34)
[2021-05-03] MEDS: DOCUSATE SODIUM 100 MG CAPSULE PO ×2 (08:47→20:19)
[2021-05-03] MEDS: FLECAINIDE ACETATE 50 MG TABLET 150 MG PO ×2 (08:49→20:22)
[2021-05-03] MEDS: hydrALAZINE HCL 50 MG TABLET PO ×2 (08:49→16:34)
[2021-05-03] MEDS: LOSARTAN POTASSIUM 100 MG TABLET PO (08:50)
--- NOTE | 2021-05-03 11:01 | PM.IMPN ---
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 She was also started on this but is aware she will not see immediate effects from this -apparently has appt scheduled with psychiatrist next month, I told her it is imperative she keep that appt since her anxiety is so severe (5) Nausea: Code(s): R11.0 - Nausea Status: Resolved Assessment and Plan: -Most likely related to hyponatremia (6) Hypertension: Qualifiers: Hypertension type: unspecified Qualified Code(s): I10 - Essential (primary) hypertension Code(s): I10 - Essential (primary) hypertension Status: Acute Assessment and Plan: -Continue home medication -hold hydralazine if blood pressure less than 130/70 (7) COPD (chronic obstructive pulmonary disease): Qualifiers: COPD type: unspecified COPD Qualified Code(s): J44.9 - Chronic obstructive pulmonary disease, unspecified Code(s): J44.9 - Chronic obstructive pulmonary disease, unspecified Status: Chronic Assessment and Plan: -Stable continue home medication (8) Paroxysmal atrial fibrillation: Code(s): I48.0 - Paroxysmal atrial fibrillation Status: Chronic Assessment and Plan: -On Coreg and flecainide and Xarelto continue (9) Weakness: Code(s): R53.1 - Weakness Status: Acute Assessment and Plan: PT OT evaluation (10) Allergic rhinitis: Code(s): J30.9 - Allergic rhinitis, unspecified Status: Acute Assessment and Plan: -Celia Buitrago Subjective Date/time seen: 05/03/21 11:01 Interval history: This is 80-year-old female who presents to the ED for evaluation of increasing generalized weakness along with nausea that started approximately few days ago. In the ED she was noted to have hyponatremia which is new and getting admitted for further treatment. She stated that she was recently started on medication call Lexapro for her anxiety after which she started feeling nauseous. She was admitted with hyponatremia last time it was severely low at 108. It was determined it was related to her hydrochlorothiazide and Lexapro which was stopped. After discussion with automotive collision estimator and sales property manager was decided to retry the Lexapro to help control her anxiety. Pt states anxiety is slightly improved but continues to be a problem for her. She did sleep well last night with the xanax and melatonin. Has some nausea today. no abdominal pain, diarrhea, fever. Did have a bowel movement yesterday. Review of Systems Review of Systems: General: Denies fevers Eyes: Denies vision changes ENT: denies nasal congestion or sore throat Respiratory: Denies cough or shortness of breath Cardiovascular: Denies chest pain, +mild LE extremity edema Gastrointestinal: Denies abdominal pain, vomiting, or diarrhea Genitou
[2021-05-03] MEDS: hydrALAZINE HCL 50 MG TABLET 100 MG PO (11:13)
--- NOTE | 2021-05-03 11:14 | PM.PNNEP ---
Progress Note: A&P Assessment and Plan (1) Acute hyponatremia: Code(s): E87.1 - Hypo-osmolality and hyponatremia Status: Acute Assessment and Plan: hyponatremia presumably due to restart/taking lexapro (SSRI) again she is off of this and hydrochlorothiazide. Sodium level is dropping again. She is getting IV fluids. This is probably why. Will stop the IV fluids and also restrict fluid [id number]. Discussed with patient. (2) Hypertension: Qualifiers: Hypertension type: unspecified Qualified Code(s): I10 - Essential (primary) hypertension Code(s): I10 - Essential (primary) hypertension Status: Acute Assessment and Plan: erratic and difficult to control at times Systolic ranges anywhere from 99-179. (3) Weakness: Code(s): R53.1 - Weakness Status: Acute Assessment and Plan: presumably due to #1 PT/OT as tolerated (4) Anxiety: Code(s): F41.9 - Anxiety disorder, unspecified Status: Chronic Assessment and Plan: chronic issue/problems would advocate NOT to treat with SSRIs or hydrochlorothiazide vgiven her issues with #1 Subjective Date/time seen: 05/03/21 11:14 Interval history: patient is alert. She feels okay. She says that she has been on fluid restriction of 1500cc at home for a long time. Exam Narrative: General: WD/WN female in NAD Heart: normal S1 and S2; no rub or subcu nodule Lungs: clear Abdomen: soft, nontender, nondistended, positive bowel sounds Extremities: no cyanosis or clubbing; no edema Skin: No rash Objective Data Vital Signs Vital Signs: Vital Signs - 24 hr 05/02/21 12:00 05/02/21 14:20 05/02/21 16:00 Temperature 36.2 C L Pulse Rate 58 L 62 55 L Respiratory Rate 16 Blood Pressure 147/57 H Pulse Oximetry 97 05/02/21 20:00 05/02/21 20:57 05/03/21 00:00 Temperature Pulse Rate 59 L 60 48 L Respiratory Rate Blood Pressure Pulse Oximetry 05/03/21 04:00 05/03/21 04:52 05/03/21 05:07 Temperature 36.8 C 36.8 C Pulse Rate 49 L 52 L 65 Respiratory Rate 16 16 Blood Pressure 179/69 H Pulse Oximetry 95 97 05/03/21 08:49 05/03/21 11:13 Temperature Pulse Rate 56 L 60 Respiratory Rate Blood Pressure 129/48 L Pulse Oximetry 96 Intake/Output Intake/Output: Intake & Output 04/30/21 05/01/21 05/02/21 05/03/21 23:59 23:59 23:59 23:59 Intake Total 2870 2590 3140 1150 Output Total 500 1700 1900 850 Balance 2370 890 1240 300 Meds/Results Medications: Active Medications Generic Name Dose Route Start Last Admin Trade Name Freq PRN Reason Stop Dose Admin Acetaminophen 500 mg 04/28/21 03:40 05/03/21 05:08 Acetaminophen 500 Mg Tablet PO 500 mg Q6H PRN Administration Pain Albuterol 1 puff 04/28/21 03:40 Albuterol Sulfate (*Sp) Aerosol 1 Puff INHALATION Q3-6H PRN wheezing Alprazolam 0.25 mg 05/03/21 07:35 Alprazolam (*Crx) 0.25 Mg Tablet PO TID PRN Anxiety Bisacodyl 10 mg 04/29/21 15:37 Bisacodyl 10 Mg Suppository RECTAL QAM PRN Constipation Buspirone HCl 10 mg 04/29/21 09:00 05/03/21 08:47 Buspirone Hcl 10 Mg Tablet PO 10 mg BID MARTIN Administration Docusate Sodium 100 mg 05/01/21 21:00 05/03/21 08:47 Docusate Sodium 100 Mg Capsule PO 100 mg Q12HR MARTIN Administration Famotidine 20 mg 04/28/21 09:00 05/03/21 08:47 Famotidine 20 Mg Tablet PO 20 mg Q12HR MARTIN Administration Flecainide Acetate 150 mg 04/28/21 09:00 05/03/21 08:49 Flecainide Acetate 50 Mg Tablet PO 150 mg Q12HR MARTIN Administration Fluticasone Propionate 2 spray 04/28/21 09:00 05/02/21 10:00 Fluticasone Propionate 0.05% Na Spr 16 Gm Btl (*Bkc) NASAL 2 spray DAILY MARTIN Administration Guaifenesin 600 mg 05/01/21 09:40 Guaifenesin 12 Hr 600 Mg Tabcr PO Q12HR PRN Congestion Home Med 1 each 04/29/21 09:00
[2021-05-03] MEDS: ALPRAZolam (*CRX) 0.25 MG TABLET PO (14:03)
[2021-05-03] MEDS: RIVAROXABAN 15 MG TABLET PO (16:34)
[2021-05-03 17:06] LABS: Sodium 131 mmol/L (137-145)
[2021-05-03] MEDS: MELATONIN 5 MG TABLET PO (20:21)
[2021-05-04] VITALS (10 sets, daily range): BP systolic 146–175; BP diastolic 58–72; PULSE 52–66; RESP 18; TEMP 35.8–36.6; O2SAT 96–97
[2021-05-04 05:30] LABS: Basophils Absolute Auto 0.1 K/mm3 (0.0-0.1); Basophils Percent Auto 0.7 % (0.2-1.2); Eosinophils Absolute Auto 0.2 K/mm3 (0-0.3); Eosinophils Percent Auto 2.3 % (0-4.4); Hematocrit 32.4 % (37.0-47.0); Hemoglobin 10.9 g/dL (12.0-15.0); Immature Granulocyte Absolute 0.03 K/mm3 (0.00-0.031); Immature Granulocyte Percent A 0.4 % (0-0.5); Lymphocytes Absolute Auto 1.72 K/mm3 (0.9-3.2); Lymphocytes Percent Auto 25.2 % (18.3-44.2); Mean Corpuscular HGB Conc 33.6 g/dl (32-36); Mean Platelet Volume 8.9 fl (7.4-10.4); Monocytes Absolute Auto 0.8 K/mm3 (0.1-0.6); Neutrophils Absolute Auto 4.1 K/mm3 (1.3-6.7); Neutrophils Percent Auto 60.4 % (45.5-73.1); Platelet Count Result 215 k/mm3 (150-375); Red Blood Count 3.41 M/mm3 (4.2-5.4); Red Cell Distribution Width 12.9 % (11.5-14.5); White Blood Count 6.8 K/mm3 (4.5-10.0)
[2021-05-04 05:44] LABS: Albumin Level 3.1 g/dL (3.5-5.1); Anion Gap 3 mmol/L (8-16); Blood Urea Nitrogen 19 mg/dL (7-17); Calcium 8.7 mg/dL (8.4-10.2); Carbon Dioxide 30 mmol/L (22-30); Chloride 96 mmol/L (98-107); Estimated CRCL calculation 51 ml/min; Estimated Glomerular Filt Rate > 60; Glucose 91 mg/dL (65-110); Phosphorus 3.6 mg/dL (2.5-4.5); Potassium 4.3 mmol/L (3.4-5.0); Sodium 129 mmol/L (137-145)
--- NOTE | 2021-05-04 06:43 | PM.PNNEP ---
Progress Note: A&P Assessment and Plan (1) Acute hyponatremia: Code(s): E87.1 - Hypo-osmolality and hyponatremia Status: Acute Assessment and Plan: hyponatremia due to restart/taking lexapro (SSRI) again she is off of this and hydrochlorothiazide. Sodium level stabilized at around 1:30 a.m.. Currently on fluid restriction of 1000cc. (2) Hypertension: Qualifiers: Hypertension type: unspecified Qualified Code(s): I10 - Essential (primary) hypertension Code(s): I10 - Essential (primary) hypertension Status: Acute Assessment and Plan: erratic and difficult to control at times Systolic ranges anywhere from 99-179. On hydralazine 50mg b.i.d. and 100mg q.noon, losartan 100mg a day Short-acting blood pressure meds may be contributing to her roller coaster hypertension. Will start amlodipine this morning and try to wean the hydralazine. (3) Weakness: Code(s): R53.1 - Weakness Status: Acute Assessment and Plan: presumably due to #1 PT/OT as tolerated (4) Anxiety: Code(s): F41.9 - Anxiety disorder, unspecified Status: Chronic Assessment and Plan: chronic issue/problems avoid SSRIs given her issues with #1 Subjective Date/time seen: 05/04/21 06:43 Interval history: patient is alert. She slept well. Doing okay on her fluid restriction. Exam Narrative: General: WD/WN female in NAD Heart: normal S1 and S2; no rub or subcu nodule Lungs: clear bilaterally Abdomen: soft, nontender, nondistended, positive bowel sounds Extremities: no cyanosis or clubbing; no edema Skin: No rash or subQ nodules Objective Data Vital Signs Vital Signs: Vital Signs - 24 hr 05/03/21 08:00 05/03/21 08:49 05/03/21 11:13 Temperature Pulse Rate 57 L 56 L 60 Respiratory Rate Blood Pressure 129/48 L Pulse Oximetry 96 05/03/21 12:00 05/03/21 14:00 05/03/21 16:00 Temperature 36.4 C L Pulse Rate 52 L 55 L 58 L Respiratory Rate 16 Blood Pressure 106/57 L Pulse Oximetry 98 05/03/21 20:00 05/03/21 20:22 05/03/21 20:52 Temperature 36.6 C Pulse Rate 61 62 63 Respiratory Rate 18 Blood Pressure 157/60 H Pulse Oximetry 96 05/04/21 00:00 05/04/21 02:55 05/04/21 04:00 Temperature Pulse Rate 56 L 52 L Respiratory Rate Blood Pressure 175/72 H Pulse Oximetry 05/04/21 05:09 Temperature 36.6 C Pulse Rate 55 L Respiratory Rate 18 Blood Pressure 166/58 H Pulse Oximetry 96 Intake/Output Intake/Output: Intake & Output 05/01/21 05/02/21 05/03/21 05/04/21 23:59 23:59 23:59 23:59 Intake Total 2590 3140 1850 300 Output Total 1700 1900 3450 500 Balance 890 1240 -1600 -200 Meds/Results Medications: Active Medications Generic Name Dose Route Start Last Admin Trade Name Freq PRN Reason Stop Dose Admin Acetaminophen 500 mg 04/28/21 03:40 05/03/21 14:03 Acetaminophen 500 Mg Tablet PO 500 mg Q6H PRN Administration Pain Albuterol 1 puff 04/28/21 03:40 Albuterol Sulfate (*Sp) Aerosol 1 Puff INHALATION Q3-6H PRN wheezing Alprazolam 0.25 mg 05/03/21 07:35 05/03/21 14:03 Alprazolam (*Crx) 0.25 Mg Tablet PO 0.25 mg TID PRN Administration Anxiety Bisacodyl 10 mg 04/29/21 15:37 Bisacodyl 10 Mg Suppository RECTAL QAM PRN Constipation Buspirone HCl 10 mg 04/29/21 09:00 05/03/21 16:34 Buspirone Hcl 10 Mg Tablet PO 10 mg BID MARTIN Administration Docusate Sodium 100 mg 05/01/21 21:00 05/03/21 20:19 Docusate Sodium 100 Mg Capsule PO 100 mg Q12HR MARTIN Administration Famotidine 20 mg 04/28/21 09:00 05/03/21 20:19 Famotidine 20 Mg Tablet PO 20 mg Q12HR MARTIN Administration Flecainide Acetate 150 mg 04/28/21 09:00 05/03/21 20:22 Flecainide Acetate 50 Mg Tablet PO 150 mg Q12HR MARTIN Administration Fluticasone Propionate 2 spray 04/28/21 09:00 05/03/21 11
--- NOTE | 2021-05-04 08:07 | PCNWS ---
Weekly nutritional screen. Patient is tolerating current diet with adequate intake. No weight loss reported. No nutritional needs at this time.
[2021-05-04] MEDS: FLECAINIDE ACETATE 50 MG TABLET 150 MG PO ×2 (08:51→20:51)
[2021-05-04] MEDS: LOSARTAN POTASSIUM 100 MG TABLET PO (08:51)
[2021-05-04] MEDS: polyethylene glycoL 3350 17 GM POWD.PACK PO (08:51)
[2021-05-04] MEDS: LORATADINE 10 MG TABLET PO (08:51)
[2021-05-04] MEDS: FAMOTIDINE 20 MG TABLET PO ×2 (08:52→20:52)
[2021-05-04] MEDS: VENLAFAXINE HCL XR 37.5 MG CAP PO (08:52)
[2021-05-04] MEDS: busPIRone HCL 10 MG TABLET PO ×2 (08:52→16:39)
[2021-05-04] MEDS: DOCUSATE SODIUM 100 MG CAPSULE PO ×2 (08:52→20:51)
[2021-05-04] MEDS: hydrALAZINE HCL 50 MG TABLET PO ×2 (08:52→16:39)
[2021-05-04] MEDS: amLODIPine BESYLATE 2.5 MG TABLET PO (08:52)
[2021-05-04] MEDS: CHOLECALCIFEROL 1,000 UNITS TABLET 1000 UNITS PO (08:52)
[2021-05-04] MEDS: ALPRAZolam (*CRX) 0.25 MG TABLET PO ×3 (09:03→22:28)
[2021-05-04] MEDS: hydrALAZINE HCL 50 MG TABLET 100 MG PO (11:21)
--- NOTE | 2021-05-04 11:54 | PM.IMPN ---
Progress Note: A&P Assessment and Plan (1) Hypertension: Qualifiers: Hypertension type: unspecified Qualified Code(s): I10 - Essential (primary) hypertension Code(s): I10 - Essential (primary) hypertension Status: Acute Assessment and Plan: Patient reports a lot of anxiety today. -I looked at her home list of her blood pressures. In February it was well controlled with 100 systolic to 140 systolic with few good blood pressure readings which she contributed to increased anxiety. Over the last few weeks her blood pressure has increased more steadily to being in the 140s to 160 systolic and going as high as 200 systolic when she states she has increased anxiety . -talked to the coke inspector who recommended starting amlodipine 2.5 mg which is more of a 24 hour medication and wondering if we should wean her off of the hydralazine since it is more short-acting and could be causing for her fluctuations throughout the day -nephrology would like to continue monitoring her blood pressures over the next 24 hours and make adjustments to her hydralazine based on her blood pressure readings. -I do feel like her anxiety is a component to her elevated blood pressure readings. We are trying to work on controlling her anxiety while hospitalized, but I feel like when she goes home it will improve and she can better maintain her blood pressure readings and follow-up with her PCP. -hopefully discharge in 1-2 days. (2) Anxiety: Code(s): F41.9 - Anxiety disorder, unspecified Status: Acute Assessment and Plan: -very severe anxiety -Lexapro stopped indefinitely due to hyponatremia -On Buspar x 5 weeks -Started low dose of Xanax 0.125 mg BID with minimal improvement, increased to 0.25 mg TID and she is a little better --> patient tells me that the Xanax 0.25 mg is not helping. She did tell me she was getting ?addicted? to her lorazepam which she stopped after 3 weeks. I told her this is the same class of medications and can have the same affects on her. I discussed increasing the dose of the Xanax to help with her anxiety, she states she will wait a little bit longer to see if it helps the more and otherwise will trying to avoid increasing the dose so does not addictive. -told her she needs to keep her appointment with her psychiatrist May 29 for better medication adjustments. Continue monitoring. (3) Acute hyponatremia: Code(s): E87.1 - Hypo-osmolality and hyponatremia Status: Acute Assessment and Plan: -Severe hyponatremia on admission 121 -TSH WNL -was improving after holding lexapro -increase from 1500cc to 1000cc fluid restriction -sodium this morning was 129, during her hospitalization her sodium went as high as 135-129 over last 5 days. I talked to the coke inspector who was not concerned about her sodium level at this time. Would like to continue fluid restriction. Does not recommend checking sodium again today just tomorrow morning. -currently at this time the coke inspector is more concerned with her blood pressure control. (4) Chronic anticoagulation: Code(s): Z79.01 - athletic monitor (current) use of anticoagulants Status: Acute Assessment and Plan: -For AFib on Xarelto continue (5) Nausea: Code(s): R11.0 - Nausea Status: Resolved Assessment and Plan: -Most likely related to hyponatremia Resolved (6) COPD (chronic obstructive pulmonary disease): Qualifiers: COPD type: unspecified COPD Qualified Code(s): J44.9 - Chronic obstructive pulmonary disease, unspecified Code(s): J44.9 - Chronic obstructive pulmonary disease, unspecified Status: Chronic Assessment and Plan: -Stable continue home medication (7) Paroxysmal atrial fibrillation: Code(s): I48.0 - Paroxysmal atrial fibrillation Status: Chronic Assessment and Plan: -On Coreg and flecainide and Xarelto cont
[2021-05-04] MEDS: RIVAROXABAN 15 MG TABLET PO (16:39)
[2021-05-04] MEDS: MELATONIN 5 MG TABLET PO (20:51)
[2021-05-05 04:23] VITALS: BP 186/66; PULSE 60; RESP 20; TEMP 36; O2SAT 98
[2021-05-05] MEDS: ACETAMINOPHEN 500 MG TABLET PO (04:27)
[2021-05-05 05:54] LABS: Albumin Level 3.2 g/dL (3.5-5.1); Anion Gap 6 mmol/L (8-16); Blood Urea Nitrogen 16 mg/dL (7-17); Calcium 8.6 mg/dL (8.4-10.2); Carbon Dioxide 30 mmol/L (22-30); Chloride 93 mmol/L (98-107); Estimated CRCL calculation 51 ml/min; Estimated Glomerular Filt Rate > 60; Glucose 99 mg/dL (65-110); Phosphorus 3.8 mg/dL (2.5-4.5); Sodium 129 mmol/L (137-145)
[2021-05-05] MEDS: VENLAFAXINE HCL XR 37.5 MG CAP PO (08:17)
[2021-05-05] MEDS: hydrALAZINE HCL 50 MG TABLET PO (08:17)
[2021-05-05] MEDS: CHOLECALCIFEROL 1,000 UNITS TABLET 1000 UNITS PO (08:18)
[2021-05-05] MEDS: amLODIPine BESYLATE 2.5 MG TABLET PO (08:18)
[2021-05-05] MEDS: busPIRone HCL 10 MG TABLET PO (08:18)
[2021-05-05 08:19] VITALS: PULSE 70
[2021-05-05] MEDS: DOCUSATE SODIUM 100 MG CAPSULE PO (08:19)
[2021-05-05] MEDS: FAMOTIDINE 20 MG TABLET PO (08:19)
[2021-05-05] MEDS: FLECAINIDE ACETATE 50 MG TABLET 150 MG PO (08:19)
[2021-05-05] MEDS: polyethylene glycoL 3350 17 GM POWD.PACK PO (08:21)
[2021-05-05] MEDS: LOSARTAN POTASSIUM 100 MG TABLET PO (08:21)
[2021-05-05] MEDS: LORATADINE 10 MG TABLET PO (08:21)
[2021-05-05] MEDS: ALPRAZolam (*CRX) 0.25 MG TABLET PO ×2 (09:49→15:37)
[2021-05-05 11:50] VITALS: BP 145/80
[2021-05-05] MEDS: hydrALAZINE HCL 50 MG TABLET 100 MG PO (11:51)
--- NOTE | 2021-05-05 12:24 | P.PNNP_ITS ---
Progress Note: A&P Assessment and Plan (1) Acute hyponatremia: Code(s): E87.1 - Hypo-osmolality and hyponatremia Status: Acute Assessment and Plan: * hyponatremia * due to restart/taking lexapro (SSRI) again * she is off of this and hydrochlorothiazide. * Sodium level stabilized at around 129-130. * Currently on fluid restriction of 1000cc. * She has a manager china at [facility] who follows her sodium levels. I think she probably is at about her baseline. She should continue the fluid restriction as she is on now. She can follow up with manager china at [facility] when she is discharged. (2) Hypertension: Qualifiers: Hypertension type: unspecified Qualified Code(s): I10 - Essential (primary) hypertension Code(s): I10 - Essential (primary) hypertension Status: Acute Assessment and Plan: * erratic and difficult to control at times * Systolic ranges anywhere from 99-179. * Anxiety may be playing a role in her [place] her blood pressures. * On hydralazine 50mg b.i.d. and 100mg q.noon, losartan 100mg a day * She just started on her amlodipine 2.5 mg today. (3) Weakness: Code(s): R53.1 - Weakness Status: Acute Assessment and Plan: * presumably due to #1 * PT/OT as tolerated (4) Anxiety: Code(s): F41.9 - Anxiety disorder, unspecified Status: Chronic Assessment and Plan: * chronic issue/problems * avoid SSRIs given her issues with #1 Subjective Date/time seen: 05/05/21 12:24 Interval history: patient is alert. She slept well. no shortness of breath. Doing okay on her fluid restriction. Exam Narrative: General: WD/WN female in NAD Heart: normal S1 and S2; no rub or gallop Lungs: clear Abdomen: soft, nontender, nondistended, positive bowel sounds Extremities: no cyanosis or clubbing; no edema Skin: No rash Objective Data Vital Signs Vital Signs: Vital Signs - 24 hr 05/04/21 14:00 05/04/21 20:09 05/04/21 20:51 Temperature 36.3 C L 35.8 C L Pulse Rate 60 66 66 Respiratory Rate 18 18 Blood Pressure 146/62 H 171/63 H Pulse Oximetry 97 96 05/05/21 04:23 05/05/21 08:19 05/05/21 11:50 Temperature 36.0 C L Pulse Rate 60 70 Respiratory Rate 20 Blood Pressure 186/66 H 145/80 H Pulse Oximetry 98 Intake/Output Intake/Output: Intake & Output 05/02/21 05/03/21 05/04/21 05/05/21 23:59 23:59 23:59 23:59 Intake Total 3140 1850 1100 510 Output Total 1900 3450 2600 600 Balance 1240 -1600 -1500 -90 Meds/Results Medications: Active Medications Generic Name Dose Route Start Last Admin Trade Name Freq PRN Reason Stop Dose Admin Acetaminophen 500 mg 04/28/21 03:40 05/05/21 04:27 Acetaminophen 500 Mg Tablet PO 500 mg Q6H PRN Administration Pain Albuterol 1 puff 04/28/21 03:40 Albuterol Sulfate (*Sp) Aerosol 1 Puff INHALATION Q3-6H PRN wheezing Alprazolam 0.25 mg 05/03/21 07:35 05/05/21 09:49 Alprazolam (*Crx) 0.25 Mg Tablet PO 0.25 mg TID PRN Administration Anxiety Amlodipine Besylate
--- NOTE | 2021-05-05 12:24 | PM.PNNEP ---
Progress Note: A&P Assessment and Plan (1) Acute hyponatremia: Code(s): E87.1 - Hypo-osmolality and hyponatremia Status: Acute Assessment and Plan: hyponatremia due to restart/taking lexapro (SSRI) again she is off of this and hydrochlorothiazide. Sodium level stabilized at around 129-130. Currently on fluid restriction of 1000cc. She has a engine manager at [facility] who follows her sodium levels. I think she probably is at about her baseline. She should continue the fluid restriction as she is on now. She can follow up with engine manager at [facility] when she is discharged. (2) Hypertension: Qualifiers: Hypertension type: unspecified Qualified Code(s): I10 - Essential (primary) hypertension Code(s): I10 - Essential (primary) hypertension Status: Acute Assessment and Plan: erratic and difficult to control at times Systolic ranges anywhere from 99-179. Anxiety may be playing a role in her roller [place] her blood pressures. On hydralazine 50mg b.i.d. and 100mg q.noon, losartan 100mg a day She just started on her amlodipine 2.5 mg today. (3) Weakness: Code(s): R53.1 - Weakness Status: Acute Assessment and Plan: presumably due to #1 PT/OT as tolerated (4) Anxiety: Code(s): F41.9 - Anxiety disorder, unspecified Status: Chronic Assessment and Plan: chronic issue/problems avoid SSRIs given her issues with #1 Subjective Date/time seen: 05/05/21 12:24 Interval history: patient is alert. She slept well. no shortness of breath. Doing okay on her fluid restriction. Exam Narrative: General: WD/WN female in NAD Heart: normal S1 and S2; no rub or gallop Lungs: clear Abdomen: soft, nontender, nondistended, positive bowel sounds Extremities: no cyanosis or clubbing; no edema Skin: No rash Objective Data Vital Signs Vital Signs: Vital Signs - 24 hr 05/04/21 14:00 05/04/21 20:09 05/04/21 20:51 Temperature 36.3 C L 35.8 C L Pulse Rate 60 66 66 Respiratory Rate 18 18 Blood Pressure 146/62 H 171/63 H Pulse Oximetry 97 96 05/05/21 04:23 05/05/21 08:19 05/05/21 11:50 Temperature 36.0 C L Pulse Rate 60 70 Respiratory Rate 20 Blood Pressure 186/66 H 145/80 H Pulse Oximetry 98 Intake/Output Intake/Output: Intake & Output 05/02/21 05/03/21 05/04/21 05/05/21 23:59 23:59 23:59 23:59 Intake Total 3140 1850 1100 510 Output Total 1900 3450 2600 600 Balance 1240 -1600 -1500 -90 Meds/Results Medications: Active Medications Generic Name Dose Route Start Last Admin Trade Name Freq PRN Reason Stop Dose Admin Acetaminophen 500 mg 04/28/21 03:40 05/05/21 04:27 Acetaminophen 500 Mg Tablet PO 500 mg Q6H PRN Administration Pain Albuterol 1 puff 04/28/21 03:40 Albuterol Sulfate (*Sp) Aerosol 1 Puff INHALATION Q3-6H PRN wheezing Alprazolam 0.25 mg 05/03/21 07:35 05/05/21 09:49 Alprazolam (*Crx) 0.25 Mg Tablet PO 0.25 mg TID PRN Administration Anxiety Amlodipine Besylate 2.5 mg 05/04/21 09:00 05/05/21 08:18 Amlodipine Besylate 2.5 Mg Tablet PO 2.5 mg QAM MARTIN Administration Bisacodyl 10 mg 04/29/21 15:37 Bisacodyl 10 Mg Suppository RECTAL QAM PRN Constipation Buspirone HCl 10 mg 04/29/21 09:00 05/05/21 08:18 Buspirone Hcl 10 Mg Tablet PO 10 mg BID MARTIN Administration Docusate Sodium 100 mg 05/01/21 21:00 05/05/21 08:19 Docusate Sodium 100 Mg Capsule PO 100 mg Q12HR MARTIN Administration Famotidine 20 mg 04/28/21 09:00 05/05/21 08:19 Famotidine 20 Mg Tablet PO 20 mg Q12HR MARTIN Administration Flecainide Acetate 150 mg 04/28/21 09:00 05/05/21 08:19 Flecainide Acetate 50 Mg Tablet PO 150 mg Q12HR MARTIN Administration Fluticasone Propionate 2 spray 05/04/21 11:25 Fluticasone Propionate 0.05% Na Spr 16 G
[2021-05-05 14:35] VITALS: BP 140/70; PULSE 97; RESP 20; TEMP 36.4; O2SAT 97
--- NOTE | 2021-05-05 14:45 | PM.DS ---
DS: Admitting Diagnosis Discharge Date 05/05/21 Admitting Diagnosis N/V DS: Discharge Diagnosis Discharge Diagnosis (1) Hypertension: Qualifiers: Hypertension type: unspecified Qualified Code(s): I10 - Essential (primary) hypertension Code(s): I10 - Essential (primary) hypertension Status: Acute Assessment and Plan: Patient is an 80-year-old woman with a long history of hyponatremia, anxiety, atrial fibrillation on Xarelto, hypertension, who presented to the emergency room with generalized weakness and nausea for the last few days. Initial vitals showed blood pressure 141/49, heart rate bradycardic at 56 beats per minute, afebrile, normal oxygenation of 98% on room air. Initial labs showed normal white blood cell count, normocytic anemia with a hemoglobin of 11, normal differential, hyponatremia at 121. Normal creatinine is 0.8, elevated BUN at 23, normal LFTs, normal urinalysis without any signs of UTI. Patient was admitted to the hospital with hyponatremia and a consult to Nephrology for further workup and evaluation. Patient had been restarted on her Lexapro 3 days prior to arrival which could have contributed to the hyponatremia. During the patient's admission the digital print operator believe the hyponatremia could be secondary to the SSRI, and kept her on a 1000 cc fluid restriction diet. Her sodium remains stable at about 128 for the last 3 days. She then began having some hypertension issues and the digital print operator started her on amlodipine. Her blood pressure seem to over lot improved but she continues to have spikes in her blood pressure secondary to increased anxiety. The patient continued to talk about her increased anxiety and she had been started on p.r.n. Xanax with some improvement. She is otherwise stable at this time to be discharged to continue checking blood pressure twice a day. Will recheck a BMP in 1 week and have her follow-up with her digital print operator specialist at [facility] and eap counselor at [facility] for further monitoring of her blood pressure and hyponatremia. Patient also has a psychiatrist appointment on May 29 for the 1st time that she needs to keep the appointment with and they can make further medication adjustments for her anxiety. She is stable at this time to be discharged. Return to ER warnings given. The patient understands agrees the plan all questions answered. (2) Anxiety: Code(s): F41.9 - Anxiety disorder, unspecified Status: Acute (3) Acute hyponatremia: Code(s): E87.1 - Hypo-osmolality and hyponatremia Status: Acute (4) Chronic anticoagulation: Code(s): Z79.01 - remote computer terminal operator (current) use of anticoagulants Status: Acute Assessment and Plan: -For AFib on Xarelto continue (5) Nausea: Code(s): R11.0 - Nausea Status: Resolved Assessment and Plan: -Most likely related to hyponatremia Resolved (6) COPD (chronic obstructive pulmonary disease): Qualifiers: COPD type: unspecified COPD Qualified Code(s): J44.9 - Chronic obstructive pulmonary disease, unspecified Code(s): J44.9 - Chronic obstructive pulmonary disease, unspecified Status: Chronic Assessment and Plan: -Stable continue home medication (7) Paroxysmal atrial fibrillation: Code(s): I48.0 - Paroxysmal atrial fibrillation Status: Chronic Assessment and Plan: -On Coreg and flecainide and Xarelto continue Well controlled at this time. (8) Weakness: Code(s): R53.1 - Weakness Status: Acute Assessment and Plan: PT OT evaluation (9) Allergic rhinitis: Code(s): J30.9 - Allergic rhinitis, unspecified Status: Acute Assessment and Plan: -Claritin, Flonase (10) Dyslipidemia: Code(s): E78.5 - Hyperlipidemia, unspecified Status: Acute Assessment and Plan: -Continue home medication DS: S
== END 2021-05-05 15:52 | disposition home or self-care (01) | DRG 641 ==
LOC: ANHED 20:01 → ANH2MED 04-28 10:25
PROVIDERS: Internal Medicine; Internal Medicine Nephrology; Physician Assistant; Admitting Provider Internal Medicine; Emergency Provider Emergency Medicine; Visit Provider Physician Assistant
DX: E87.1 Hypo-osmolality and hyponatremia (principal); I10 Essential (primary) hypertension; F41.9 Anxiety disorder, unspecified; R53.1 Weakness; J44.9 Chronic obstructive pulmonary disease, unspecified; J30.9 Allergic rhinitis, unspecified; I48.0 Paroxysmal atrial fibrillation; E78.5 Hyperlipidemia, unspecified; Z79.01 Long term (current) use of anticoagulants; Z79.899 Other long term (current) drug therapy; Z86.73 Personal history of transient ischemic attack (TIA), and cerebral infarction without residual deficits
CPT/HCPCS: 36415; 80048; 80053; 80069; 81001; 82570; 83935; 84295; 84300; 84540; 85025; 93005; 96360; 99199; 99285; A9270; J7030

== ENCOUNTER 2021-05-10 08:42 | Outpatient (CLI) | payer MEDICARE, OTHER, SELFPAY ==
[2021-05-10 09:16] LABS: Anion Gap 9 mmol/L (8-16); Blood Urea Nitrogen 19 mg/dL (7-17); Calcium 9.5 mg/dL (8.4-10.2); Carbon Dioxide 31 mmol/L (22-30); Chloride 94 mmol/L (98-107); Estimated Glomerular Filt Rate 60; Glucose 151 mg/dL (65-110); Potassium 4.1 mmol/L (3.4-5.0); Sodium 134 mmol/L (137-145)
== END 2021-05-10 08:43 | disposition home or self-care (01) ==
PROVIDERS: Visit Provider Physician Assistant
DX: E87.1 Hypo-osmolality and hyponatremia (principal)
CPT/HCPCS: 36415; 80048

== ENCOUNTER → 2021-10-29 08:14 | Outpatient (CLI) | payer MEDICARE, OTHER, SELFPAY ==
--- NOTE | ~2021-10-29 | US_ITS ---
US abdomen complete EXAMINATION: US Abdomen Complete INDICATION: Generalized abdomen pain PROCEDURE: Realtime High Resolution abdomen ultrasound. COMPARISON: No prior studies for comparison FINDINGS: Gallbladder within normal limits. No gallstones, pericholecystic fluid, gallbladder wall t hickening or biliary dilatation. Common bile duct measures 3 mm. Liver echotexture within normal limits without focal mass. Pancreas within normal limits. Pancreati c tail is obscured by bowel gas. Spleen is unremarkeable. Renal echotexture is within normal limits bilaterally without hydronephrosis, contour deforming mass or renal stone. Right kidney measures 8 cm . Left kidney measures 8.8 cm. Visualized aspects of the aorta and IVC are within normal limits. Portal vein is patent. No sonograph ic Laureano's sign indicated by the technologist. IMPRESSION: 1: Normal abdominal ultrasound. Reviewed, dictated and finalized at location A.
--- NOTE | ~2021-10-29 | US_ITS ---
EXAMINATION: US pelvic complete DATE: 10/29/2021 09:59 INDICATION: Abnormal pain. Right lower quadrant pain. Comparison:CT dated 09/07/2019 TECHNIQUE: Multiple transabdominal sonographic images of the pelvis performed. FINDINGS: The uterus measures 6.6 x 3.8 x 5.5 cm. There is a calcified uterine fibroid measuring 2.8 x 2.4 x 2.3 cm. The endometrial complex measures 4 mm. The ovaries are not visualized. No adnexal masses. There is no free fluid in the pelvis. There are no abnormal masses seen on either side. IMPRESSION: 1. Calcified 2.8 cm uterine fibroid. Reviewed, dictated and finalized at location A.
== END ==
DX: R10.31 Right lower quadrant pain (principal); D25.9 Leiomyoma of uterus, unspecified
CPT/HCPCS: 76700; 76856

== ENCOUNTER 2022-01-09 10:51 | Inpatient (IN) | payer MEDICARE, OTHER, SELFPAY ==
[2022-01-09] VITALS (33 sets, daily range): BP systolic 92–134; BP diastolic 46–71; PULSE 59–80; RESP 15–21; TEMP 36.4–37.8; O2SAT 89–96
--- NOTE | ~2022-01-09 | XR_ITS ---
EXAMINATION: XR chest 2V DATE: 01/09/2022 11:28 INDICATION: Cough and fever TECHNIQUE: AP and lateral views of the chest are obtained. COMPARISON: 03/26/2021 FINDINGS: The lungs are hyperinflated but free of acute opacities. No pleural effusion or pneumothora x. The cardiomediastinal silhouette is normal. There is moderate thoracic spondylosis. A dual-lead ca rdiac pacemaker of the right chest wall ends with leads in expected locations. IMPRESSION: 1. No acute cardiopulmonary abnormality. Reviewed, dictated and finalized at location A.
--- NOTE | ~2022-01-09 | XR_ITS ---
EXAMINATION: XR chest 1V portable DATE: 01/13/2022 06:13 INDICATION: COVID-19 pneumonia. TECHNIQUE: A single frontal view of the chest was obtained on 2 radiographs. COMPARISON: Chest 2 views 01/09/2022, CT abdomen and pelvis 09/07/2019 FINDINGS: There is no pneumonia, pleural effusion, or pneumothorax. The heart size is normal. There i s a right chest wall pacer with leads in the right atrium and right ventricle. IMPRESSION: 1. No acute cardiopulmonary disease. Reviewed, dictated and finalized at location A.
--- NOTE | 2022-01-09 11:03 | ED.WEAKNESS ---
HPI - Weakness General Chief complaint: Weakness Stated complaint: weakness Time Seen by Provider: 01/09/22 10:51 History of Present Illness HPI Narrative: Patient is an 81-year-old female with a history of hypertension, hyponatremia, paroxysmal atrial fibrillation status post ablation, here for evaluation of weakness, nonproductive cough, and sore throat over the past day. Notes that she just feels tired all over, denies unilateral weakness, vision changes, facial droop. States that her throat feels dry that is making it difficult to swallow, but she is tolerating her secretions. She states that she has been attempting Mucinex [id number] without significant relief of her symptoms. She states that her had COVID-19 last week. Denies any chest pain or shortness of breath, leg swelling, abdominal pain, nausea, vomiting. Related Data Home Medications Medication Instructions Recorded Confirmed cholecalciferol (vitamin D3) 25 1,000 unit PO DAILY 01/13/20 01/09/22 mcg (1,000 unit) capsule hydralazine 50 mg tablet 50 mg PO BID 01/03/21 01/09/22 lifitegrast 5 % eye drops in a 1 drp EACH EYE Q12H 01/03/21 01/09/22 dropperette (Xiidra) losartan 100 mg tablet 100 mg PO DAILY 01/03/21 01/09/22 buspirone 5 mg tablet 10 mg PO TIDWM 03/26/21 01/09/22 guaifenesin 600 mg tablet, 600 mg PO DAILY PRN Congestion 03/26/21 01/09/22 extended release 12 hr (Mucinex) hydralazine 50 mg tablet 50 mg PO QPM PRN Hypertension 03/26/21 01/09/22 hydralazine 50 mg tablet 100 mg PO QNOON 03/26/21 01/09/22 polyethylene glycol 3350 17 17 g PO DAILY PRN Constipation 03/26/21 01/09/22 gram/dose oral powder (Miralax) rivaroxaban 15 mg tablet (Xarelto) 15 mg PO QPM 04/27/21 01/09/22 carvedilol 12.5 mg tablet 12.5 mg PO BID 01/09/22 01/09/22 Allergies Allergy/AdvReac Type Severity Reaction Status Date / Time monosodium glutamate AdvReac Unknown Fatigued Verified 01/09/22 15:44 Review of Systems Review of Systems: Gen.: Denies fevers or chills Eyes: Denies eye pain or visual change ENT: Denies congestion Respiratory: Denies shortness of breath or cough CV: Denies chest pain or palpitations GI: Denies abdominal pain nausea, emesis or diarrhea denies burning, urgency, frequency or hematuria Musculoskeletal: Denies back pain or muscle pain Neuro: Denies numbness, tingling, weakness or focal weakness Skin: Denies rash Except as documented, all other systems reviewed and negative [facility] Past Medical History Medical History Anxiety Arthritis Chronic anticoagulation Chronic obstructive pulmonary disease Related to significant secondhand smoke exposure. Dyslipidemia Eczema Headache, migraine Hypertension Left carotid bruit Unremarkable carotid Doppler ultrasounds on 09/09/2019. Paroxysmal atrial fibrillation Paroxysmal atrial fibrillation/atrial flutter. Maintained on flecainide, carvedilol, and rivaroxaban. Patient of Dr. Bharathi Higuera at [facility]. TIA (transient ischemic attack) At the age of 29, attributed to oral contraceptives. Surgical History Surgical History History of appendectomy History of eyelid surgery History of tonsillectomy History of tubal ligation History of uterine suspension procedure History of ventral hernia repair Family History Family History Mother Family history of kidney disease Family history of elevated blood lipids Acute myocardial infarction, Onset Age: 93 Family history of liver disease, Onset Age: 93 Family history of congestive heart failure Family history of chronic obstructive pulmonary disease Family history of renal failure, Onset Age: 93 Father Family history of migraine headaches Hypertension Grandparent Cerebrovascular accident Other Family history of cardiovascular disease Family history of shannen
[2022-01-09 11:24] LABS: Basophils Percent Auto 0.1 % (0.2-1.2); Hematocrit 35.9 % (37.0-47.0); Hemoglobin 11.9 g/dL (12.0-15.0); Immature Granulocyte Absolute 0.01 K/mm3 (0.00-0.031); Immature Granulocyte Percent A 0.1 % (0-0.5); Immature Platelet Fraction Pct 1.8 % (0.9-11.2); Lymphocytes Absolute Auto 0.63 K/mm3 (0.9-3.2); Lymphocytes Percent Auto 9.1 % (18.3-44.2); Mean Corpuscular HGB Conc 33.1 g/dl (32-36); Mean Corpuscular Hemoglobin 31.9 pg (26-34); Mean Corpuscular Volume 96.2 fl (80-100); Mean Platelet Volume 8.9 fl (7.4-10.4); Monocytes Absolute Auto 1.1 K/mm3 (0.1-0.6); Monocytes Percent Auto 15.9 % (2.6-8.5); Neutrophils Absolute Auto 5.2 K/mm3 (1.3-6.7); Neutrophils Percent Auto 74.8 % (45.5-73.1); Platelet Count Result 154 k/mm3 (150-375); Red Blood Count 3.73 M/mm3 (4.2-5.4); Red Cell Distribution Width 13.3 % (11.5-14.5); White Blood Count 6.9 K/mm3 (4.5-10.0)
[2022-01-09] MEDS: ACETAMINOPHEN 325 MG TABLET 650 MG PO (11:31)
[2022-01-09 11:37] LABS: Alanine Aminotransferase 19 U/L (6-35); Albumin Level 4.3 g/dL (3.5-5.1); Alkaline Phosphatase 78 U/L (38-126); Anion Gap 9 mmol/L (8-16); Aspartate Amino Transferase 30 U/L (14-36); Bilirubin,Total 0.2 mg/dL (0.2-1.3); Blood Urea Nitrogen 17 mg/dL (7-17); Calcium 8.3 mg/dL (8.4-10.2); Carbon Dioxide 28 mmol/L (22-30); Chloride 91 mmol/L (98-107); Estimated CRCL calculation 40 ml/min; Estimated Glomerular Filt Rate 60; Glucose 111 mg/dL (65-110); Potassium 4.4 mmol/L (3.4-5.0); Sodium 128 mmol/L (137-145)
[2022-01-09 12:01] LABS: SARS-CoV-2 RNA PCR Positive
--- NOTE | 2022-01-09 12:30 | ECG_ITS ---
Measurements Intervals [place] Rate: 62 P: -80 OR: 275 QRS: -86 QRSD: 111 T: 71 QT: 421 QTc: 429 Interpretive Statements ELECTRONIC ATRIAL PACEMAKER RIGHT BUNDLE BRANCH BLOCK LEFT ANTERIOR SUPERIOR HEMIBLOCK COMPARED TO ECG 04/28/2021 05:40:39 ATRIAL PACED RHYTHM IS NOW SEEN Electronically Signed On 01-10-2022 16:48:21 CDT by Minh Sandy M.D.
[2022-01-09 12:52] LABS: Lactic Acid Reflex 0.6 mmol/L (0.7-2.0)
[2022-01-09 12:58] LABS: INR 1.6; Prothrombin Time 18.3 Seconds (11.1-14.7)
[2022-01-09] MEDS: DEXAMETHASONE SOD PHOS INJ 4 MG/ML VIAL 8 MG IV PUSH (13:21)
[2022-01-09] MEDS: REMDESIVIR 200 MG/NS 250 ML 200 MG/250 ML BAG 250 MG IVPB (13:44)
--- NOTE | 2022-01-09 14:45 | PM.IMHP ---
H&P: HPI History of Present Illness Date/Time: 01/09/22 14:45 Chief Complaint: Weakness Narrative: This is a 81-year-old female patient who has a history of hypertension, hyponatremia and paroxysmally atrial fibrillation status post ablation. The patient came to the emergency room for complaints of weakness, nonproductive cough and a sore throat over the past day. The patient's was diagnosed with COVID over week ago. The patient feels like she is very tired but denied any focal weakness. She has been having a dry throat which makes it difficult for her to swallow. The patient has a loose nonproductive cough. The patient has been taking Mucinex [id number] without any relief. She has no swelling in her lower extremities or any chest pain. No nausea vomiting or diarrhea. Her H&H was found to be 11.9 and 35.9. Neutrophil percentage 74.8. Her sodium is low at 128 today. Patient is chronically hyponatremic. Patient's sodium typically ranged between 129-134. The patient was started on remdesivir and Decadron. The patient appears very ill. The patient tells me that she has been vaccinated for COVID. The patient tested positive for COVID today. The chest x-ray was read as no acute cardiopulmonary. The patient is being admitted to inpatient status on the date of service of 01/09/2022. Review of Systems Review of Systems: See HPI All systems reviewed & are unremarkable except as noted in HPI and below Constitutional: Constitutional: Reports as per HPI and Reports no additional constitutional complaints Eyes: Eyes: Reports as per HPI and Reports no additional eye complaints ENT: Reports system reviewed and no additional complaints, except as documented and Reports Normal hearing present Cardiovascular: Cardiovascular: Reports no additional cardiovascular complaints Respiratory: Respiratory: Reports no additional respiratory complaints and Reports no additional respiratory complaints Gastrointestinal: Gastrointestinal: Reports as per HPI and Reports no additional gastrointestinal complaints Musculoskeletal: Musculoskeletal: Reports no additional musculoskeletal complaints Integumentary/Breasts: Skin/Breast: Reports system reviewed and no additional complaints, except as docu and Reports as per HPI Neurologic: Reports system reviewed and no additional complaints, except as documented, Reports as per HPI and Reports Normal hearing present Psychiatric: Psychiatric: Reports no additional psychiatric complaints and Reports as per HPI Endocrine: Endocrine: Reports no additional endocrine complaints Hematologic/Lymphatic: Hematologic/Lymphatic: Reports no additional hematologic/lymphatic complaints Allergic/Immunologic: Allergic/Immunologic: Reports no additional allergic/immunologic complaints [facility] Past Medical History Medical History (Updated 01/09/22 @ 20:34 by Katherin Cavazos NP) Anxiety Arthritis Chronic anticoagulation Chronic obstructive pulmonary disease Related to significant secondhand smoke exposure. Dyslipidemia Eczema Headache, migraine Hypertension Left carotid bruit Unremarkable carotid Doppler ultrasounds on 09/09/2019. Pacemaker Paroxysmal atrial fibrillation Paroxysmal atrial fibrillation/atrial flutter. Maintained on flecainide, carvedilol, and rivaroxaban. Patient of Dr. Bharathi Higuera at [facility]. TIA (transient ischemic attack) At the age of 29, attributed to oral contraceptives. Surgical History Surgical History (Updated 01/09/22 @ 20:37 by Katherin Cavazos NP) H/O cardiac radiofrequency ablation History of appendectomy History of eyelid surgery History of tonsillectomy History of tubal ligation History of uterine suspension procedure History of ventral hernia repair Family History Family History Mother Family history of kidney disease Family history of elevated blood lipids Acute myocardial infarction, Onset Age: 89
--- NOTE | 2022-01-09 15:44 | PC.NURSE ---
This patient, Beth Aaron, was admitted to [address] [facility] Surg Room 316-01. Patient/family oriented to hospital policies and general routines including ID bracelet, bed and alarms, visiting hours, pain management, procedures, bathroom and other care routines, personal items, smoking policy, room service/diet, and visiting hours. Information on how to activate the Rapid Response Team has been discussed. Patient/Family are encouraged to report perceived risks to care and to ask questions if they do not understand what they are told or what they should do.
[2022-01-09 18:40] LABS: Basophils Percent Auto 0.1 % (0.2-1.2); Hematocrit 37.4 % (37.0-47.0); Hemoglobin 12.5 g/dL (12.0-15.0); Immature Granulocyte Absolute 0.02 K/mm3 (0.00-0.031); Immature Granulocyte Percent A 0.2 % (0-0.5); Immature Platelet Fraction Pct 1.8 % (0.9-11.2); Lymphocytes Absolute Auto 0.55 K/mm3 (0.9-3.2); Lymphocytes Percent Auto 6.1 % (18.3-44.2); Mean Corpuscular HGB Conc 33.4 g/dl (32-36); Mean Corpuscular Hemoglobin 32.2 pg (26-34); Mean Corpuscular Volume 96.4 fl (80-100); Mean Platelet Volume 9.1 fl (7.4-10.4); Monocytes Absolute Auto 0.8 K/mm3 (0.1-0.6); Monocytes Percent Auto 8.9 % (2.6-8.5); Neutrophils Absolute Auto 7.7 K/mm3 (1.3-6.7); Neutrophils Percent Auto 84.7 % (45.5-73.1); Platelet Count Result 149 k/mm3 (150-375); Red Blood Count 3.88 M/mm3 (4.2-5.4); Red Cell Distribution Width 13.2 % (11.5-14.5)
[2022-01-09 18:48] LABS: Alanine Aminotransferase 21 U/L (6-35); Aspartate Amino Transferase 35 U/L (14-36); Estimated CRCL calculation 45 ml/min; Estimated Glomerular Filt Rate > 60
[2022-01-09 21:35] LABS: Anion Gap 11 mmol/L (8-16); Blood Urea Nitrogen 17 mg/dL (7-17); Calcium 8.8 mg/dL (8.4-10.2); Carbon Dioxide 24 mmol/L (22-30); Chloride 93 mmol/L (98-107); Estimated CRCL calculation 45 ml/min; Estimated Glomerular Filt Rate > 60; Glucose 155 mg/dL (65-110); Potassium 4.3 mmol/L (3.4-5.0); Sodium 128 mmol/L (137-145)
[2022-01-09] MEDS: RIVAROXABAN 15 MG TABLET PO (21:42)
[2022-01-09] MEDS: carvediloL 12.5 MG TABLET PO (21:42)
[2022-01-09] MEDS: FAMOTIDINE 20 MG TABLET PO (21:43)
[2022-01-09] MEDS: FLECAINIDE ACETATE 50 MG TABLET 150 MG PO (21:43)
[2022-01-09 22:31] LABS: Sodium Urine Random 26 meq/L
[2022-01-10] VITALS (7 sets, daily range): BP systolic 113–144; BP diastolic 52–67; PULSE 61–115; RESP 17–20; TEMP 36.2–36.9; O2SAT 90–94
[2022-01-10 06:09] LABS: Basophils Percent Auto 0.1 % (0.2-1.2); Hematocrit 36.1 % (37.0-47.0); Hemoglobin 12.1 g/dL (12.0-15.0); Immature Granulocyte Absolute 0.03 K/mm3 (0.00-0.031); Immature Granulocyte Percent A 0.3 % (0-0.5); Lymphocytes Absolute Auto 0.78 K/mm3 (0.9-3.2); Lymphocytes Percent Auto 7.9 % (18.3-44.2); Mean Corpuscular HGB Conc 33.5 g/dl (32-36); Mean Corpuscular Hemoglobin 32.3 pg (26-34); Mean Corpuscular Volume 96.3 fl (80-100); Mean Platelet Volume 9.3 fl (7.4-10.4); Monocytes Absolute Auto 0.9 K/mm3 (0.1-0.6); Monocytes Percent Auto 9.2 % (2.6-8.5); Neutrophils Absolute Auto 8.2 K/mm3 (1.3-6.7); Neutrophils Percent Auto 82.5 % (45.5-73.1); Platelet Count Result 147 k/mm3 (150-375); Red Blood Count 3.75 M/mm3 (4.2-5.4); White Blood Count 9.9 K/mm3 (4.5-10.0)
[2022-01-10 06:18] LABS: Lactic Acid Reflex 0.8 mmol/L (0.7-2.0)
[2022-01-10 06:19] LABS: Prothrombin Time 21.9 Seconds (11.1-14.7)
[2022-01-10 06:22] LABS: Alanine Aminotransferase 19 U/L (6-35); Albumin Level 3.7 g/dL (3.5-5.1); Alkaline Phosphatase 73 U/L (38-126); Anion Gap 7 mmol/L (8-16); Aspartate Amino Transferase 31 U/L (14-36); Bilirubin,Total 0.2 mg/dL (0.2-1.3); Blood Urea Nitrogen 18 mg/dL (7-17); Calcium 8.9 mg/dL (8.4-10.2); Carbon Dioxide 29 mmol/L (22-30); Chloride 95 mmol/L (98-107); Estimated CRCL calculation 45 ml/min; Estimated Glomerular Filt Rate > 60; Glucose 126 mg/dL (65-110); Lactate Dehydrogenase 162 U/L (120-246); Lipase 27 U/L (23-300); Potassium 4.3 mmol/L (3.4-5.0); Sodium 131 mmol/L (137-145)
[2022-01-10 07:25] LABS: Thyroid Stimulating Hormone Reflex 0.912 uIU/mL (0.465-4.68)
[2022-01-10] MEDS: REMDESIVIR 100 MG/NS 250 ML 100 MG/250 ML BAG 250 MG IVPB (09:42)
[2022-01-10] MEDS: FLECAINIDE ACETATE 50 MG TABLET 150 MG PO ×2 (09:43→21:03)
[2022-01-10] MEDS: LOSARTAN POTASSIUM 100 MG TABLET PO (09:44)
[2022-01-10] MEDS: busPIRone HCL 10 MG TABLET PO ×3 (09:44→18:24)
[2022-01-10] MEDS: hydrALAZINE HCL 50 MG TABLET PO ×2 (09:44→18:24)
[2022-01-10] MEDS: carvediloL 12.5 MG TABLET PO ×2 (09:44→21:03)
[2022-01-10] MEDS: FAMOTIDINE 20 MG TABLET PO ×2 (09:44→21:03)
[2022-01-10] MEDS: CHOLECALCIFEROL 1,000 UNITS TABLET 1000 UNITS PO (12:36)
[2022-01-10] MEDS: hydrALAZINE HCL 50 MG TABLET 100 MG PO (14:10)
--- NOTE | 2022-01-10 15:00 | PM.IMPN ---
Progress Note: A&P Assessment and Plan (1) COVID-19: Code(s): U07.1 - COVID-19 Status: Acute (2) Hyponatremia: Code(s): E87.1 - Hypo-osmolality and hyponatremia Status: Acute (3) Anxiety: Code(s): F41.9 - Anxiety disorder, unspecified Status: Chronic (4) Hypertension: Qualifiers: Hypertension type: unspecified Qualified Code(s): I10 - Essential (primary) hypertension Code(s): I10 - Essential (primary) hypertension Status: Acute (5) COPD (chronic obstructive pulmonary disease): Qualifiers: COPD type: unspecified COPD Qualified Code(s): J44.9 - Chronic obstructive pulmonary disease, unspecified Code(s): J44.9 - Chronic obstructive pulmonary disease, unspecified Status: Chronic (6) Paroxysmal atrial fibrillation: Code(s): I48.0 - Paroxysmal atrial fibrillation Status: Chronic Plan # acute COVID 19 infection: Chest x-ray okay. On Decadron and remdesivir due to hypoxia. # acute hypoxic respiratory failure needing nasal cannula oxygen supplementation # hyponatremia chronically low continue to monitor # anxiety disorder # hypertension # hyperlipidemia # COPD # proximal atrial fibrillation on flecainide Coreg and Xarelto # DVT prophylaxis on Xarelto # code status full code Subjective Date/time seen: 01/10/22 15:00 Interval history: HPI:This is a 81-year-old female patient who has a history of hypertension, hyponatremia and paroxysmally atrial fibrillation status post ablation.? The patient came to the emergency room for complaints of weakness, nonproductive cough and a sore throat over the past day.? The patient's was diagnosed with COVID over week ago.? The patient feels like she is very tired but denied any focal weakness.? She has been having a dry throat which makes it difficult for her to swallow.? The patient has a loose nonproductive cough.? The patient has been taking Mucinex [id number] without any relief.? She has no swelling in her lower extremities or any chest pain.? No nausea vomiting or diarrhea.? Her H&H was found to be 11.9 and 35.9.? Neutrophil percentage 74.8.? Her sodium is low at 128 today.? Patient is chronically hyponatremic.? Patient's sodium typically ranged between 129-134.? The patient was started on remdesivir and Decadron.? The patient appears very ill. The patient tells me that she has been vaccinated for COVID.? The patient tested positive for COVID today.? The chest x-ray was read as no acute cardiopulmonary.? The patient is being admitted to inpatient status on the date of service of 01/09/2022. 01/10/2022 No overnight events. Remains afebrile. Breathing is better. Coughing of yellowish sputum denies any chest pain. Review of Systems Review of Systems: All systems reviewed & are unremarkable except as noted in HPI and below Exam Narrative: APPEARANCE: Frail looking thin built, hoarse voice Head: Normocephalic and atraumatic. EYES: PERRLA/EOMI, conjunctivae clear NOSE: No nasal drainage NECK: Supple. No adenopathy, no masses. RESPIRATORY: Airway patent, respirations nonlabored. Clear to auscultation bilaterally, no rales, rhonchi, wheezing. CARDIOVASCULAR: Regular rate and rhythm without murmurs, rubs, or gallops. ABDOMINAL: Normoactive bowel sounds. Soft, nontender, nondistended. No rebound tenderness or guarding. MUSCULOSKELETAL: Extremities are warm and well-perfused. Moves all extremities well. No edema. NEURO: Normal speech. No focal neurologic deficits. SKIN: Skin is warm and dry. No rashes. PSYCHIATRIC: Normal affect/mood. Objective Data Vital Signs Vital Signs: Vital Signs - 24 hr 01/09/22 15:03 01/09/22 21:42 01/09/22 20:00 Temperature 98 F Pulse Rate 64 64 64 Respiratory Rate 20 20 Blood Pressure 131/71 Pulse Oximetry 92 92 Oxygen Delivery Room Air 01/09/22 22:00 01/09/22 23:28 01/10/22 05:53 Temperature 97.6 F 98.4 F 98.4 F Pulse Rat
[2022-01-10] MEDS: RIVAROXABAN 15 MG TABLET PO (18:24)
[2022-01-11 05:48] LABS: Basophils Percent Auto 0.1 % (0.2-1.2); Hematocrit 36.7 % (37.0-47.0); Immature Granulocyte Absolute 0.04 K/mm3 (0.00-0.031); Immature Granulocyte Percent A 0.4 % (0-0.5); Lymphocytes Absolute Auto 1.15 K/mm3 (0.9-3.2); Lymphocytes Percent Auto 10.2 % (18.3-44.2); Mean Corpuscular HGB Conc 32.7 g/dl (32-36); Mean Corpuscular Hemoglobin 32.2 pg (26-34); Mean Corpuscular Volume 98.4 fl (80-100); Mean Platelet Volume 9.7 fl (7.4-10.4); Monocytes Absolute Auto 0.9 K/mm3 (0.1-0.6); Monocytes Percent Auto 7.7 % (2.6-8.5); Neutrophils Absolute Auto 9.2 K/mm3 (1.3-6.7); Neutrophils Percent Auto 81.6 % (45.5-73.1); Platelet Count Result 156 k/mm3 (150-375); Red Blood Count 3.73 M/mm3 (4.2-5.4); Red Cell Distribution Width 13.2 % (11.5-14.5); White Blood Count 11.3 K/mm3 (4.5-10.0)
[2022-01-11 05:57] VITALS: BP 166/72; PULSE 64; RESP 17; TEMP 36.7; O2SAT 95
[2022-01-11 05:59] LABS: Alanine Aminotransferase 17 U/L (6-35); Albumin Level 3.6 g/dL (3.5-5.1); Alkaline Phosphatase 74 U/L (38-126); Anion Gap 1 mmol/L (8-16); Aspartate Amino Transferase 27 U/L (14-36); Bilirubin,Total 0.1 mg/dL (0.2-1.3); Blood Urea Nitrogen 23 mg/dL (7-17); Calcium 8.4 mg/dL (8.4-10.2); Carbon Dioxide 28 mmol/L (22-30); Chloride 99 mmol/L (98-107); Estimated CRCL calculation 45 ml/min; Estimated Glomerular Filt Rate > 60; Glucose 110 mg/dL (65-110); Potassium 3.9 mmol/L (3.4-5.0); Sodium 128 mmol/L (137-145)
[2022-01-11 06:02] LABS: INR 2.1; Prothrombin Time 22.9 Seconds (11.1-14.7)
[2022-01-11 08:00] VITALS: BP 181/77; PULSE 64; RESP 16; TEMP 36.2; O2SAT 97
[2022-01-11] MEDS: carvediloL 12.5 MG TABLET PO ×2 (09:35→19:58)
[2022-01-11] MEDS: FLECAINIDE ACETATE 50 MG TABLET 150 MG PO ×2 (09:35→19:58)
[2022-01-11] MEDS: LOSARTAN POTASSIUM 100 MG TABLET PO (09:36)
[2022-01-11] MEDS: FAMOTIDINE 20 MG TABLET PO ×2 (09:36→19:59)
[2022-01-11] MEDS: hydrALAZINE HCL 50 MG TABLET PO ×2 (09:36→19:59)
[2022-01-11] MEDS: busPIRone HCL 10 MG TABLET PO (09:36)
[2022-01-11] MEDS: REMDESIVIR 100 MG/NS 250 ML 100 MG/250 ML BAG 250 MG IVPB (11:00)
[2022-01-11 12:00] VITALS: BP 131/66; PULSE 63; RESP 18; TEMP 36.3; O2SAT 98
[2022-01-11] MEDS: CHOLECALCIFEROL 1,000 UNITS TABLET 1000 UNITS PO (14:15)
[2022-01-11] MEDS: hydrALAZINE HCL 50 MG TABLET 100 MG PO (14:15)
[2022-01-11] MEDS: busPIRone HCL 10 MG TABLET 20 MG PO ×2 (14:31→19:59)
--- NOTE | 2022-01-11 15:53 | PM.IMPN ---
Progress Note: A&P Assessment and Plan (1) COVID-19: Code(s): U07.1 - COVID-19 Status: Acute (2) Hyponatremia: Code(s): E87.1 - Hypo-osmolality and hyponatremia Status: Acute (3) Anxiety: Code(s): F41.9 - Anxiety disorder, unspecified Status: Chronic (4) Hypertension: Qualifiers: Hypertension type: unspecified Qualified Code(s): I10 - Essential (primary) hypertension Code(s): I10 - Essential (primary) hypertension Status: Acute (5) COPD (chronic obstructive pulmonary disease): Qualifiers: COPD type: unspecified COPD Qualified Code(s): J44.9 - Chronic obstructive pulmonary disease, unspecified Code(s): J44.9 - Chronic obstructive pulmonary disease, unspecified Status: Chronic (6) Paroxysmal atrial fibrillation: Code(s): I48.0 - Paroxysmal atrial fibrillation Status: Chronic Plan # acute COVID 19 infection: Chest x-ray okay. On Decadron and remdesivir due to hypoxia Which is mild. Currently off oxygen. Continue remdesivir as ordered. # acute hypoxic respiratory failure needing nasal cannula oxygen supplementation . now tapered off . # hyponatremia chronically low continue to monitor # anxiety disorder # hypertension # hyperlipidemia # COPD # proximal atrial fibrillation on flecainide Coreg and Xarelto # DVT prophylaxis on Xarelto # code status full code Subjective Date/time seen: 01/11/22 15:53 Interval history: HPI:This is a 81-year-old female patient who has a history of hypertension, hyponatremia and paroxysmally atrial fibrillation status post ablation.? The patient came to the emergency room for complaints of weakness, nonproductive cough and a sore throat over the past day.? The patient's was diagnosed with COVID over week ago.? The patient feels like she is very tired but denied any focal weakness.? She has been having a dry throat which makes it difficult for her to swallow.? The patient has a loose nonproductive cough.? The patient has been taking Mucinex [id number] without any relief.? She has no swelling in her lower extremities or any chest pain.? No nausea vomiting or diarrhea.? Her H&H was found to be 11.9 and 35.9.? Neutrophil percentage 74.8.? Her sodium is low at 128 today.? Patient is chronically hyponatremic.? Patient's sodium typically ranged between 129-134.? The patient was started on remdesivir and Decadron.? The patient appears very ill. The patient tells me that she has been vaccinated for COVID.? The patient tested positive for COVID today.? The chest x-ray was read as no acute cardiopulmonary.? The patient is being admitted to inpatient status on the date of service of 01/09/2022. 01/10/2022 No overnight events. Remains afebrile. Breathing is better. Coughing of yellowish sputum denies any chest pain. 01/11/2022 no overnight events. She states that she is coughing more and able to cough out better. Denies any chest pain. Remains off oxygen. Blood pressure is fluctuating. Review of Systems Review of Systems: All systems reviewed & are unremarkable except as noted in HPI and below Exam Narrative: APPEARANCE: Frail looking thin built, hoarse voice Head: Normocephalic and atraumatic. EYES: PERRLA/EOMI, conjunctivae clear NOSE: No nasal drainage NECK: Supple. No adenopathy, no masses. RESPIRATORY: Airway patent, respirations nonlabored. Clear to auscultation bilaterally, no rales, rhonchi, wheezing. CARDIOVASCULAR: Regular rate and rhythm without murmurs, rubs, or gallops. ABDOMINAL: Normoactive bowel sounds. Soft, nontender, nondistended. No rebound tenderness or guarding. MUSCULOSKELETAL: Extremities are warm and well-perfused. Moves all extremities well. No edema. NEURO: Normal speech. No focal neurologic deficits. SKIN: Skin is warm and dry. No rashes. PSYCHIATRIC: Normal affect/mood. Objective Data Vital Signs Vital Signs: Vital Signs - 24 hr 01/10/22 1
[2022-01-11 16:00] VITALS: BP 157/77; PULSE 79; RESP 14; TEMP 36.4; O2SAT 98
--- NOTE | 2022-01-11 17:08 | WPDCDIQUERY2 ---
CDI Query Clarification Request 01/10 Hospitalist documented: Plan # acute COVID 19 infection: Chest x-ray okay.? On Decadron and remdesivir due to hypoxia. #? acute hypoxic respiratory failure needing nasal cannula? oxygen supplementation # hyponatremia chronically low continue to monitor Please clarify if diagnosis acute hypoxic respiratory failure has been ruled in or ruled out If diagnosis acute hypoxic respiratory failure is ruled in, please add to problem list. <Winnie Ramos - Last Filed: 01/11/22 17:12> Clarified Diagnosis (1) Acute respiratory failure with hypoxia: Code(s): J96.01 - Acute respiratory failure with hypoxia <Winnie Ramos - Last Filed: 01/11/22 17:12> Status: Acute <Winnie Ramos - Last Filed: 01/11/22 17:12> Provider Comments acute hypoxic respiratory failure <Car Aquino MD - Last Filed: 01/19/22 07:30>
[2022-01-11] MEDS: RIVAROXABAN 15 MG TABLET PO (19:59)
[2022-01-11 20:00] VITALS: BP 166/77; PULSE 67; RESP 20; TEMP 36.6; O2SAT 97
[2022-01-11 21:18] VITALS: O2SAT 97
[2022-01-12] VITALS (10 sets, daily range): BP systolic 127–172; BP diastolic 53–84; PULSE 60–67; RESP 16–18; TEMP 36.2–36.6; O2SAT 96–97
[2022-01-12] MEDS: hydrALAZINE HCL 50 MG TABLET PO ×2 (00:18→20:18)
[2022-01-12 06:35] LABS: Hematocrit 35.3 % (37.0-47.0); Hemoglobin 11.9 g/dL (12.0-15.0); Immature Granulocyte Absolute 0.05 K/mm3 (0.00-0.031); Immature Granulocyte Percent A 0.5 % (0-0.5); Lymphocytes Absolute Auto 1.26 K/mm3 (0.9-3.2); Lymphocytes Percent Auto 11.9 % (18.3-44.2); Mean Corpuscular HGB Conc 33.7 g/dl (32-36); Mean Corpuscular Hemoglobin 31.9 pg (26-34); Mean Corpuscular Volume 94.6 fl (80-100); Mean Platelet Volume 9.3 fl (7.4-10.4); Monocytes Absolute Auto 0.7 K/mm3 (0.1-0.6); Monocytes Percent Auto 6.7 % (2.6-8.5); Neutrophils Absolute Auto 8.6 K/mm3 (1.3-6.7); Neutrophils Percent Auto 80.9 % (45.5-73.1); Platelet Count Result 166 k/mm3 (150-375); Red Blood Count 3.73 M/mm3 (4.2-5.4); Red Cell Distribution Width 12.9 % (11.5-14.5); White Blood Count 10.6 K/mm3 (4.5-10.0)
[2022-01-12 06:44] LABS: INR 2.4
[2022-01-12 06:46] LABS: Alanine Aminotransferase 18 U/L (6-35); Albumin Level 3.4 g/dL (3.5-5.1); Alkaline Phosphatase 71 U/L (38-126); Anion Gap 2 mmol/L (8-16); Aspartate Amino Transferase 27 U/L (14-36); Bilirubin,Total 0.2 mg/dL (0.2-1.3); Blood Urea Nitrogen 22 mg/dL (7-17); Calcium 8.4 mg/dL (8.4-10.2); Carbon Dioxide 27 mmol/L (22-30); Chloride 98 mmol/L (98-107); Estimated CRCL calculation 51 ml/min; Estimated Glomerular Filt Rate > 60; Glucose 122 mg/dL (65-110); Magnesium 1.8 mg/dL (1.6-2.3); Potassium 3.9 mmol/L (3.4-5.0); Sodium 127 mmol/L (137-145)
[2022-01-12] MEDS: FLECAINIDE ACETATE 50 MG TABLET 150 MG PO ×2 (08:34→20:17)
[2022-01-12] MEDS: busPIRone HCL 10 MG TABLET 20 MG PO ×3 (08:36→20:18)
[2022-01-12] MEDS: FAMOTIDINE 20 MG TABLET PO ×2 (08:36→20:18)
[2022-01-12] MEDS: carvediloL 12.5 MG TABLET PO ×2 (08:36→20:18)
[2022-01-12] MEDS: LOSARTAN POTASSIUM 100 MG TABLET PO (08:36)
[2022-01-12] MEDS: REMDESIVIR 100 MG/NS 250 ML 100 MG/250 ML BAG 250 MG IVPB (09:46)
[2022-01-12 12:19] LABS: Osmolality, Urine 262 mOsm/kg (50-1200)
[2022-01-12] MEDS: hydrALAZINE HCL 50 MG TABLET 100 MG PO (12:36)
[2022-01-12] MEDS: CHOLECALCIFEROL 1,000 UNITS TABLET 1000 UNITS PO (12:36)
--- NOTE | 2022-01-12 17:51 | PM.IMPN ---
Progress Note: A&P Assessment and Plan (1) COVID-19: Code(s): U07.1 - COVID-19 Status: Acute (2) Hyponatremia: Code(s): E87.1 - Hypo-osmolality and hyponatremia Status: Acute (3) Anxiety: Code(s): F41.9 - Anxiety disorder, unspecified Status: Chronic (4) Hypertension: Qualifiers: Hypertension type: unspecified Qualified Code(s): I10 - Essential (primary) hypertension Code(s): I10 - Essential (primary) hypertension Status: Acute (5) COPD (chronic obstructive pulmonary disease): Qualifiers: COPD type: unspecified COPD Qualified Code(s): J44.9 - Chronic obstructive pulmonary disease, unspecified Code(s): J44.9 - Chronic obstructive pulmonary disease, unspecified Status: Chronic (6) Paroxysmal atrial fibrillation: Code(s): I48.0 - Paroxysmal atrial fibrillation Status: Chronic Plan Patient presents with weakness and cough. She was positive for COVID-19. Chest x-ray is clear. Her SpO2 did drop to 89% on room air. She was not started on oxygen. Due to the low SpO2, she was started on Decadron and remdesivir was started. Much improved. Lungs are clear now. Will repeat chest x-ray in the morning. Complete remdesivir. Plan discharge tomorrow. Patient with chronic hyponatremia. She appears to be at baseline. Will continue to follow. Patient is having episodes of fluttering in the chest which could be paroxysmal AFib. She is however on flecainide and Coreg. This could be anxiety related. Continue Xarelto but will monitor closely given the hemoptysis. Suspect hemoptysis is related to her cough from COVID and the fact she is on Xarelto. Blood pressure elevated at times. She does take extra hydralazine at home to control of blood pressure. Continue to follow for now. Subjective Date/time seen: 01/12/22 17:51 Interval history: 81yo female with a hx of HTN, hyponatremia and pAFib here for weakness, nonproductive cough and a sore throat over the past day.? The patient's was diagnosed with COVID over week ago.? Patient tested positive for COVID here. Patient has shortness of breath is better. Cough is improved. She does feel like she is having palpitations at times which she feels is from her atrial fibrillation. She did have 1 episode of hemoptysis earlier today. She has not had that prior or since. Exam Narrative: AF 98.0 127/53 63 18 96% ra Gen - NARD Chest - CTA bilaterally, nml RR CV - RRR S1/S2 Abd - Soft, NT/ND, Positive BS Ext - No pedal edema. Negative Homans sign Neuro - Alert and oriented. Nonfocal exam. Psych - Nml mood and affect Skin - Warm and dry Objective Data Vital Signs Vital Signs: Vital Signs - 24 hr 01/11/22 20:00 01/11/22 20:00 01/12/22 00:00 Temperature 97.9 F 97.1 F L Pulse Rate 67 67 Respiratory Rate 20 18 Blood Pressure 166/77 H 164/76 H Pulse Oximetry 97 97 Oxygen Delivery Room Air 01/11/22 21:18 01/12/22 04:00 01/12/22 08:00 Temperature 97.8 F 97.9 F Pulse Rate 63 64 Respiratory Rate 18 16 Blood Pressure 168/84 H 172/82 H Pulse Oximetry 97 97 96 Oxygen Delivery Room Air 01/12/22 08:34 01/12/22 08:36 01/12/22 08:00 Temperature Pulse Rate 66 66 66 Respiratory Rate Blood Pressure Pulse Oximetry 96 Oxygen Delivery Room Air 01/12/22 12:00 01/12/22 16:00 Temperature 98 F 98 F Pulse Rate 60 63 Respiratory Rate 18 18 Blood Pressure 170/77 H 127/53 L Pulse Oximetry 96 96 Oxygen Delivery Intake/Output Intake/Output: Intake & Output 01/09/22 01/10/22 01/11/22 01/12/22 23:59 23:59 23:59 23:59 Intake Total 730 1210 1470 930 Output Total 1600 1250 1700 Balance -870 40 230 930 Meds/Results Medications: Active Medications Generic Name Dose Route Start Last Admin Trade Name Freq PRN Reason Stop Dose Admin Albuterol 2 puff 01/09/22 14:49 Albuterol Sulfate (*Sp) Aerosol 1 Puff INHA
[2022-01-12] MEDS: RIVAROXABAN 15 MG TABLET PO (20:17)
[2022-01-13] VITALS: BP 174/77; PULSE 71; RESP 16; TEMP 36.5; O2SAT 97
[2022-01-13] MEDS: hydrALAZINE HCL 50 MG TABLET PO ×2 (00:44→08:59)
[2022-01-13 04:00] VITALS: BP 172/90; PULSE 60; RESP 16; TEMP 36.4; O2SAT 97
[2022-01-13 04:40] VITALS: BP 182/92
[2022-01-13 06:21] LABS: Basophils Percent Auto 0.1 % (0.2-1.2); Hematocrit 36.3 % (37.0-47.0); Hemoglobin 12.3 g/dL (12.0-15.0); Immature Granulocyte Absolute 0.08 K/mm3 (0.00-0.031); Immature Granulocyte Percent A 0.9 % (0-0.5); Lymphocytes Absolute Auto 1.48 K/mm3 (0.9-3.2); Lymphocytes Percent Auto 17.4 % (18.3-44.2); Mean Corpuscular HGB Conc 33.9 g/dl (32-36); Mean Corpuscular Hemoglobin 32.4 pg (26-34); Mean Corpuscular Volume 95.5 fl (80-100); Mean Platelet Volume 9.1 fl (7.4-10.4); Monocytes Absolute Auto 0.6 K/mm3 (0.1-0.6); Monocytes Percent Auto 6.9 % (2.6-8.5); Neutrophils Absolute Auto 6.4 K/mm3 (1.3-6.7); Neutrophils Percent Auto 74.7 % (45.5-73.1); Platelet Count Result 167 k/mm3 (150-375); White Blood Count 8.5 K/mm3 (4.5-10.0)
[2022-01-13 06:32] LABS: Alanine Aminotransferase 20 U/L (6-35); Anion Gap 0 mmol/L (8-16); Aspartate Amino Transferase 24 U/L (14-36); Blood Urea Nitrogen 26 mg/dL (7-17); Calcium 8.3 mg/dL (8.4-10.2); Carbon Dioxide 30 mmol/L (22-30); Chloride 98 mmol/L (98-107); Estimated CRCL calculation 45 ml/min; Estimated Glomerular Filt Rate > 60; Glucose 114 mg/dL (65-110); INR 2.4; Potassium 4.3 mmol/L (3.4-5.0); Prothrombin Time 25.7 Seconds (11.1-14.7); Sodium 128 mmol/L (137-145)
[2022-01-13 08:21] VITALS: BP 182/85; PULSE 66; RESP 16; TEMP 36.8; O2SAT 99
[2022-01-13] MEDS: busPIRone HCL 10 MG TABLET 20 MG PO ×2 (08:58→12:51)
[2022-01-13 08:59] VITALS: PULSE 72; PULSE 74
[2022-01-13] MEDS: LOSARTAN POTASSIUM 100 MG TABLET PO (08:59)
[2022-01-13] MEDS: carvediloL 12.5 MG TABLET PO (08:59)
[2022-01-13] MEDS: FAMOTIDINE 20 MG TABLET PO (08:59)
[2022-01-13] MEDS: FLECAINIDE ACETATE 50 MG TABLET 150 MG PO (08:59)
[2022-01-13] MEDS: REMDESIVIR 100 MG/NS 250 ML 100 MG/250 ML BAG 250 MG IVPB (09:58)
--- NOTE | 2022-01-13 11:42 | PM.DS ---
DS: Admitting Diagnosis Discharge Date 01/13/22 Admitting Diagnosis Weakness DS: Discharge Diagnosis Discharge Diagnosis (1) COVID-19: Code(s): U07.1 - COVID-19 Status: Acute (2) Hyponatremia: Code(s): E87.1 - Hypo-osmolality and hyponatremia Status: Acute (3) Anxiety: Code(s): F41.9 - Anxiety disorder, unspecified Status: Chronic (4) Hypertension: Qualifiers: Hypertension type: unspecified Qualified Code(s): I10 - Essential (primary) hypertension Code(s): I10 - Essential (primary) hypertension Status: Acute (5) COPD (chronic obstructive pulmonary disease): Qualifiers: COPD type: unspecified COPD Qualified Code(s): J44.9 - Chronic obstructive pulmonary disease, unspecified Code(s): J44.9 - Chronic obstructive pulmonary disease, unspecified Status: Chronic (6) Paroxysmal atrial fibrillation: Code(s): I48.0 - Paroxysmal atrial fibrillation Status: Chronic DS: Summary Hospital Course Reason for hospitalization: 81yo female with a hx of HTN, hyponatremia and pAFib here for weakness, nonproductive cough and a sore throat over the past day.? The patient's was diagnosed with COVID over week ago.? Please see H&P for details. Hospital Course: Patient presents with weakness and cough. She was positive for COVID-19. Chest x-ray was clear. Her SpO2 did drop to 89% on room air. Due to the low SpO2, she was started on Decadron and remdesivir. Her condition much improved. Lungs are clear now. Repeat chest x-ray was clear. She completed remdesivir. Patient with chronic hyponatremia. She appears to be at baseline. Patient is having episodes of fluttering in the chest which could be paroxysmal AFib. She is on flecainide and Coreg. This could be anxiety related. We continued Xarelto. She had one episode of hemoptysis felt related to her cough from COVID and the fact she is on Xarelto. Blood pressure was elevated at times. She does take extra hydralazine at home to control of blood pressure. She had clinical improvement. She was able to be discharged home on 01/13/22 Status at Discharge Cognitive/behavioral status at discharge: Stable Time Spent with Patient Time attestation: Total time spent providing and/or coordinating discharge services:34 minutes Time spent: Greater than 30 minutes Exam Narrative: AF 98.2 182/85 72 16 99% ra Gen - NARD Chest - CTA bilaterally, nml RR CV - RRR S1/S2 Abd - Soft, NT/ND, Positive BS Ext - No pedal edema Psych - Nml mood and affect Skin - Warm and dry DS: Data Data Completed and Pending Labs on day of discharge: Labs from last 24 hours 01/13/22 01/13/22 01/13/22 05:51 05:51 05:51 WBC 8.5 RBC 3.80 L Hgb 12.3 Hct 36.3 L MCV 95.5 MCH 32.4 MCHC 33.9 RDW 13.0 Plt Count 167 MPV 9.1 Immature Gran % (Auto) 0.9 H Neut % (Auto) 74.7 H Lymph % (Auto) 17.4 L Leake % (Auto) 6.9 Eos % (Auto) 0.0 Baso % (Auto) 0.1 L Lymph # (Auto) 1.48 Leake # (Auto) 0.6 Eos # (Auto) 0.0 Baso # (Auto) 0.0 Abs Immat Gran (auto) 0.08 H Absolute Neuts (auto) 6.4 Absolute Nucleated RBC 0.0 Nucleated RBC % 0.0 PT 25.7 H INR 2.4 Sodium 128 L Potassium 4.3 Chloride 98 Carbon Dioxide 30 Anion Gap 0 L BUN 26 H Creatinine 0.80 Estim Creat Clear Calc 45 Estimated GFR > 60 Glucose 114 H Calcium 8.3 L AST 24 ALT 20 Urine Osmolality 01/09/22 22:18 WBC RBC Hgb Hct MCV MCH MCHC RDW Plt Count MPV Immature Gran % (Auto) Neut % (Auto) Lymph % (Auto) Leake % (Auto) Eos % (Auto) Baso % (Auto) Lymph # (Auto) Leake # (Auto) Eos # (Auto) Baso # (Auto) Abs Immat Gran (auto) Absolute Neuts (auto) Absolute Nucleated RBC Nucleated RBC % PT INR Sodium Potassium Chloride Carbon Dioxide Anion Gap BUN Cre
[2022-01-13 11:56] VITALS: BP 135/73; PULSE 68; RESP 16; TEMP 36.8; O2SAT 98
[2022-01-13] MEDS: CHOLECALCIFEROL 1,000 UNITS TABLET 1000 UNITS PO (12:51)
[2022-01-13] MEDS: hydrALAZINE HCL 50 MG TABLET 100 MG PO (12:51)
== END 2022-01-13 13:27 | disposition home or self-care (01) | DRG 178 ==
LOC: ANHED 11:03 → ANH3MEDSUR 14:25
PROVIDERS: Nurse Practitioner; Physician Assistant; Admitting Provider Internal Medicine; Emergency Provider Emergency Medicine; Visit Provider Internal Medicine
DX: U07.1 COVID-19 (principal); D68.32 Hemorrhagic disorder due to extrinsic circulating anticoagulants; E87.1 Hypo-osmolality and hyponatremia; R04.2 Hemoptysis; R09.02 Hypoxemia; I10 Essential (primary) hypertension; J44.9 Chronic obstructive pulmonary disease, unspecified; I48.0 Paroxysmal atrial fibrillation; E78.5 Hyperlipidemia, unspecified; Z95.0 Presence of cardiac pacemaker; F41.9 Anxiety disorder, unspecified; Z86.73 Personal history of transient ischemic attack (TIA), and cerebral infarction without residual deficits; Z90.49 Acquired absence of other specified parts of digestive tract; Z79.01 Long term (current) use of anticoagulants; T45.515A Adverse effect of anticoagulants, initial encounter
CPT/HCPCS: 36415; 71045; 71046; 80048; 80053; 82565; 83605; 83615; 83690; 83735; 83935; 84300; 84443; 84450; 84460; 85025; 85055; 85610; 86140; 93005; A9270; C9803; J0248; J1100; U0003; U0005

== ENCOUNTER → 2022-09-02 15:37 | Outpatient (CLI) | payer MEDICARE, OTHER, SELFPAY ==
--- NOTE | ~2022-09-02 | MM_ITS ---
EXAMINATION: MM screening [facility] BI w lisette HISTORY: Screening mammogram TECHNIQUE: Craniocaudal and mediolateral oblique 3-D tomosynthesis images were obtained and synthetic 2-D images were generated. CAD analysis was submitted and interpreted. COMPARISON: 04/07/2021, 01/23/2020, 12/27/2018 BREAST PARENCHYMAL COMPOSITION: There are scattered areas of fibroglandular density. FINDINGS: No suspicious mass, calcification, or architectural distortion are identified in either [place] ast to suggest malignancy. There has been no suspicious interval change. IMPRESSION: 1. No mammographic evidence of malignancy. 2. Recommend routine screening mammography while the patient remains in good health. BI-RADS Category 1: Negative Reviewed, dictated and finalized at location A. IMPRESSION: 1. No mammographic evidence of malignancy. 2. Recommend routine screening mammography while the patient remains in good he alth. BI-RADS Category 1: Negative
== END ==
DX: Z12.31 Encounter for screening mammogram for malignant neoplasm of breast (principal)
CPT/HCPCS: 77063; 77067

== ENCOUNTER 2023-07-30 11:01 | Emergency (ER) | payer OTHER, MEDICARE, SELFPAY ==
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
[2023-07-30 11:00] VITALS: BP 183/95; PULSE 70; RESP 20; TEMP 36.2; O2SAT 98
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
[2023-07-30 13:00] VITALS: BP 193/98; PULSE 75; RESP 16; O2SAT 96
== END 2023-07-30 13:05 | disposition home or self-care (01) ==
PROVIDERS: Emergency Provider Emergency Medicine
DX: R07.89 Other chest pain (principal); J44.9 Chronic obstructive pulmonary disease, unspecified; E78.5 Hyperlipidemia, unspecified; I10 Essential (primary) hypertension; I48.0 Paroxysmal atrial fibrillation; M19.90 Unspecified osteoarthritis, unspecified site; F41.9 Anxiety disorder, unspecified; Z95.0 Presence of cardiac pacemaker; Z86.73 Personal history of transient ischemic attack (TIA), and cerebral infarction without residual deficits; Z77.22 Contact with and (suspected) exposure to environmental tobacco smoke (acute) (chronic); Z79.01 Long term (current) use of anticoagulants; V49.40XA Driver injured in collision with unspecified motor vehicles in traffic accident, initial encounter
CPT/HCPCS: 70450; 71100; 99284

== ENCOUNTER 2023-11-03 09:09 | Outpatient (CLI) | payer MEDICARE, OTHER, SELFPAY ==
--- NOTE | ~2023-11-03 | CT_ITS ---
EXAMINATION: CT abdomen pelvis w con DATE: 11/03/2023 09:44 INDICATION: Unspecified abdominal pain TECHNIQUE: Computed tomography (CT) of the abdomen and pelvis was performed with 100 mL Omnipaque-350 intravenous contrast. Automated exposure control and iterative reconstruction technique were employe d. The dose-length product was 674.67 mGy-cm. COMPARISON: 09/07/2019 FINDINGS: New region of tree-in-bud opacity in the lateral basilar segment of the right lower lobe consistent w ith pneumonia with endobronchial spread of disease. Mild cardiomegaly with right atrial enlargement. Dual-lead cardiac pacemaker with lead tips at the right atrium and right ventricle. No pericardial or pleural effusion. Liver, gallbladder, spleen, pancreas, bilateral adrenal glands and kidneys are nor mal. There is mild colonic diverticulosis with a sigmoid predominance. There is no adjacent inflamma tory change to suggest diverticulitis. No bowel obstruction. The appendix is not visualized. No peric ecal inflammatory change to suggest acute appendicitis. Bladder is normal. Fibroid uterus calcific de generated uterine fibroids. No free intraperitoneal gas or fluid. No pathologically enlarged abdomin al or pelvic lymphadenopathy. Moderate to severe lumbar spondylosis. Transitional L5 segment is sacra lized on the right. IMPRESSION: 1. No acute intra-abdominal/pelvic process. 2. Tree-in-bud opacity right lower lobe consistent with endobronchial spread of disease and age-indet erminate pneumonia. 3. Cardiomegaly with right atrial enlargement. 4. Fibroid uterus. Reviewed, dictated and finalized at location A. IMPRESSION: 1. No acute intra-abdominal/pelvic process. 2. Tree-in-bud opacity right lower lobe consistent with endobronchial spread of disease and age-indeterminate pneumonia. 3. Cardiomegaly with right atrial enlargement. 4. Fibroid uterus.
[2023-11-03 09:37] LABS: Estimated Glomerular Filt Rate 47
== END 2023-11-03 09:10 | disposition home or self-care (01) ==
PROVIDERS: Visit Provider Nurse Practitioner Family
DX: R10.9 Unspecified abdominal pain (principal); I51.7 Cardiomegaly; D25.9 Leiomyoma of uterus, unspecified
CPT/HCPCS: 74177; Q9967

== ENCOUNTER 2024-03-12 14:13 | Outpatient (CLI) | payer MEDICARE, OTHER, SELFPAY ==
--- NOTE | ~2024-03-12 | MM_ITS ---
EXAMINATION: MM screening jere BI w lisette HISTORY: Screening mammogram TECHNIQUE: Craniocaudal and mediolateral oblique 3-D tomosynthesis images were obtained and synthetic 2-D images were generated. CAD analysis was submitted and interpreted. COMPARISON: 09/02/2022, 04/07/2021 BREAST PARENCHYMAL COMPOSITION:Not Dense. There are scattered areas of fibroglandular density. FINDINGS: No suspicious mass, calcification, or architectural distortion are identified in either [place] ast to suggest malignancy. There has been no suspicious interval change. IMPRESSION: No mammographic evidence of malignancy. Recommend routine screening mammography in one year. BI-RADS Category 1: Negative Reviewed, dictated and finalized at location .
== END 2024-03-12 14:14 | disposition home or self-care (01) ==
LOC: MICIMG 14:16
DX: Z12.31 Encounter for screening mammogram for malignant neoplasm of breast (principal)
CPT/HCPCS: 77063; 77067

== ENCOUNTER 2024-06-26 09:53 | Emergency (ER) | payer MEDICARE, OTHER, SELFPAY ==
--- NOTE | ~2024-06-26 | XR_ITS ---
XR chest 2V 06/26/2024 12:05 Indication: Dyspnea Procedure: PA and lateral views of the chest Comparison: Comparison to multiple prior studies sequentially, with oldest reviewed study dated 03/15. Findings: Borderline heart size. There is mild pulmonary edema. Small pleural effusion. No acute osse ous abnormality. Pacemaker leads in expected position. Impression: 1: Mild pulmonary edema. Pneumonia less favored. Reviewed, dictated and finalized at location B. 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 Pneumonia less favored.
[2024-06-26 09:57] VITALS: BP 113/45; PULSE 82; RESP 16; TEMP 36.7; O2SAT 93
--- OUTSIDE RECORDS SUMMARY | 2024-06-26 12:17 | XMS_ITS | Continuity of Care Document ---
Author Organization [facility] Address [address] [place] [address] Phone Care Team Providers Care Estate And Trust Tax Principal Name Role Phone Conversion MD, Doctor Unavailable Unavailabl e Advance Directives Directive Yes / No Effective Date File Name No Information Encounters Encounter Description Practice Location Reason(s) For Visit Diagnoses Date Provider Providers Copied on Encounter [facility], [address], [place], [place], [address] , tel: [phone] Conversion Department No Information 7 1 Conversion Doctor. [address] [place] [address], [address], . [facility], [address], [place], [place], [address] , tel: [phone] [facility] GENERAL OSTEOARTHROSIS HYPERLIPIDEMIA NEC/NOSSCREEN MAL NEOP-RECTUM September- 0-200 7 Ramila Moss. [facility] [address], [address], [place], [place], [address], . tel: [phone] [facility], [address], [place], [place], [address] , tel: [phone] Administration CHEST PAIN NECPURE HYPERCHOLESTER OLEM Dec-2 9-200 4 Ramila Moss. [id number], [address], [place], [place], [address], [place]. tel: [phone] [facility], [address], [place], [place], [address] , tel: [phone] [facility] CHEST PAIN NOS Dec-2 0-200 4 Ramila Moss. [id number], [address], [place], [place], [address], [place]. tel: [phone] [facility], [address], [place], [place], [address] , [place] tel: [phone] [facility] SCREEN-DIABETE S MELLITUSSYMPT FEM CLIMACT STATEASCVD Sep-2 3-200 3 Ramila Moss. [address], [address], [place], [place], [address], [place]. tel: [phone] [facility], [address], [place], [place], [address] , [place] tel: [phone] [facility] ACUTE BRONCHITIS Sep-1 2-200 3 Ramila Moss. [facility] [address], [address], [place], [place], [address], [place]. tel: [phone] [facility], [address], [place], [place], [address] , [place] tel: [phone] [facility] BACKACHE NOS Mar- 8-200 1 Ramila Moss. [facility] [address], [address], [place], [place], [address], [place]. tel: [phone] [facility], [address], [place], [place], [address] , [place] tel: [phone] [facility] SCREEN MAL NEOP OTH SITE 6-200 0 Ramila Moss. [id number], [address], [place], [place], [address], [place]. tel: [phone] [facility], [address], [place], [place], [address] , [place] tel: [phone] [facility] PTOSIS OF EYELID NOSABDMNAL PAIN GENERALIZED September- 2-200 0 Ramila Moss. [id number], [address], [place], [place], [address], [place]. tel: [phone] [facility], [address], [place], [place], [address] , [place] tel: [phone] [facility] GENERAL MEDICAL EXAM NOSPALPITATION S 1-199 9 Ramila Moss. [id number], [address], [place], [place], [address], [place]. tel: [phone] Family History Family Member Type Diagnosis Age At Onset No Information Payers Payer name Insurance type Covered libertarian ID Authoriza tion(s) No Information Social History [...]
--- OUTSIDE RECORDS SUMMARY | 2024-06-26 12:17 | XMS_ITS | Referral Summary ---
Author Organization [facility] Health Address [address] [address] Care Team Providers Care Roast Master Name Role Phone Kristen Graf APRN[facility] Primary Care Provider Source Comments [facility],non-owned Affiliates and Associated Physician Practices is amultiple site organization consisting of ambulatory clinics and hospital sitesin [place], [place], [place] and [place]. This disclosure is being madepursuant to the Care Everywhere program and may not contain all information available regarding this patient. Last updated 18.[facility] Encounters Date Type Department Care Team Description 05/21/2024 1:10 AM RURAL MAIL CONTRACTOR Clinical Support [facility] - Cardiology [address] [facility], [address] [phone] SSS (sick sinus syndrome) (HCC) 04/26/2024 Travel 04/08/2024 Travel 04/08/2024 11:00 AM RURAL MAIL CONTRACTOR Ancillary Procedure [facility] - Echosonography [address], [address] [address] Essential hypertension 03/28/2024 Travel 03/28/2024 2:00 PM RURAL MAIL CONTRACTOR Office Visit [facility] - Cardiology [address] [facility], [address] [address] Bharathi Higuera MD Essential hypertension (Primary Dx); Typical atrial flutter (HCC) from Last 3 Months Allergies No known active allergies Medications * Be aware that medications may not be up to date on this document. Alwaysverify current medications with the patient. Medication Sig Dispensed Refills Start Date End Date Status vitamin D3 (CHOLECALCIFEROL) (25 MCG) 1000 UNIT capsule Take 1 (one) capsule by mouth once daily Active acetaminophen (TYLENOL) 500 MG tablet Take 1 (one) tablet to 2 (two) tablets by mouth every 6 hours as needed for Fever, Pain or Headache Maximum allowable Acetaminophen amount = 4 Grams (4000 mg) / 24 hours. Active pimecrolimus (Elidel) 1 % creamIndications:C ontact dermatitis due to other agent, unspecified contact dermatitis type Apply to affected areas on face twice a day as needed for itch/irritation. 30 days supply. 60 g 2 02/09/2023 Active ketoconazole (Nizoral) 2 % cream Apply to affected area on the feet twice daily. 30 days supply. 60 g 4 02/09/2023 Active triamcinolone acetonide (Kenalog) 0.1 % ointment Apply to affected on the lower extremities twice daily. 30 days supply. 80 g 4 02/09/2023 Active rivaroxaban (Xarelto) 15 MG tablet Take 1 (one) tablet by mouth daily with food 90 tablet 3 03/23/2023 Active hydrALAZINE (Apresoline) 50 MG tabletIndications: Primary hypertension Take 1 (one) tablet by mouth once daily as needed 90 tablet 3 05/05/2023 Active diclofenac sodium (Voltaren) 1 % gel Apply 4 (four) g to affected area 4 times daily 100 g 11 09/15/2023 5 Active losartan (Cozaar) 25 MG tabletIndications: Essential hypertension Take 1 (one) tablet by mouth once daily 90 tablet 3 09/21/2023 5 Active cycloSPORINE (Restasis) 0.05 % ophthalmic suspension Instill 1 (one) drop into both eyes 2 times daily Active ipratropium (Atrovent) 0.03 % nasal spray Murdock 2 sprays into each nostril 2 times daily 12/06/2023 Active mupirocin (Bactroban) 2 % ointment Apply to affected area 2 times daily 11/08/2023 Active psyllium (Metamucil) 58.6 % powder Take 1 (one) packet by mouth 2 times daily Active busPIRone (Buspar) 10 MG tabletIndications: Anxiety Disorder Take 2 (two) tablets by mouth 3 times daily Reasons: Anxiety Disorder 180 tablet 11 01/19/2024 Active famotidine (Pepcid) 20 MG tabletIndications: Gastroesophageal reflux disease, unspecified whether esophagitis present Take 1 (one) tablet by mouth every 12 hours 180 tablet 3 01/19/2024 Active carvedilol (Coreg) 12.5 MG tablet Take 1 (one) tablet by mouth 2 times daily with morning and evening meal 180 tablet 3 03/28/2024 Active flecainide (Tambocor) 150 MG tabletIndications: Typical atrial flutter (HCC) Take 1 (one) tablet by mouth 2 times daily 180 tablet 3 03/28/2024 Active albuterol HFA (ProAir HFA) 108 (90 Base) MCG/ACT inhalerIndications :Shortness of breath Inhale 2 (two) puffs by mouth every 4 hours as needed for Shortness of Breath, Wheezing or Cough 8.5 g 11 04/22/2024 Active Spacer/Aero-Holdin g Chambers (AeroChamber)Indic ations:Shortness of breath Inhale by mouth as directed 1 Each 04/22/2024 Active Active Problems Patient Care Coordination No te Formatting of this note migh t be different from the original. 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 Continue carvedilol 6.25 mg BID for blood pressure management with losartan 100 mg daily. Consider up-titrating carvedilol in the future if additional BP control is needed. Follow up with Dr. Higuera as scheduled in September. Shortness of breath 07/03/2021 Chest pain 07/03/2021 Seasonal allergies 12/07/2020 Essential hypertension 12/07/2020 Thyroid nodule 07/22/2020 Typical atrial flutter 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, nontoxic, multinodular Immunizations Name Administration Dates Next Due Gooddler primary monoval ent 12+ yr 0.3mL Purple cap 02/24/2021,07/18/2020,06/21/2020 INFLUENZA VACCINE 02/24/2022,02/13/2021 INFLUENZA VACCINE, HIGH-DOSE , QUADR. (FLUZONE HIGH-DOSE QUADRIVALENT; 65Y+), 0.7 ML (HD-IIV4) 02/13/2021,02/06/2020,02/27/2018 PNEUMOCOCCAL PCV20 CONJ VAC IM 01/06/2023 PNEUMOCOCCAL PPSV23 02/13/2020 Social History Tobacco Use Types Packs/Day Years Used Date Smoking Tobacco: Never Smokeless Tobacco: Never Tobacco Cessation:Counseling Given: Not Answered Alcohol Use Standard Drinks/Week Comments Never 0 (1 standard drink = 0.6 oz pur e alcohol) AUDIT-C Answer Date Recorded Q1: How often do you have a drink containing alc ohol? Never 08/16/2021 Q2: How many drinks containi ng alcohol do you have on a typical day when you are drinking? 1 or 2 08/16/2021 Q3: How often do you have six or more drinks on one occasion? Never 08/16/2021 PHQ-2 Answer Date Recorded Patient Health Questionnaire-2 Score 0 07/15/2023 Sex and Gender Information Value Date Recorded Sex Assigned at Not on file Gender Identity Not on file Sexual Orientation Not on file Last Filed Vital Signs Vital Sign Reading Time Taken Comments Blood Pressure 168/72 03/28/2024 1:41 PM RURAL MAIL CONTRACTOR Pulse 64 03/28/2024 1:41 PM RURAL MAIL CONTRACTOR Temperature 36.7 C (98.1 F) 03/28/2024 1:41 PM RURAL MAIL CONTRACTOR Respiratory Rate 16 03/28/2024 1:41 PM RURAL MAIL CONTRACTOR Oxygen Saturation 99% 03/28/2024 1:41 PM RURAL MAIL CONTRACTOR Inhaled Oxygen Concentration - - Weight 75.3 kg (166 lb) 03/28/2024 1:41 PM RURAL MAIL CONTRACTOR Height 167.6 cm (5' 6 ) 03/28/2024 1:41 PM RURAL MAIL CONTRACTOR Body Mass Index 26.79 03/28/2024 1:41 PM RURAL MAIL CONTRACTOR Functional Status Functional Status Response Date of Assess ment Is person deaf or have serious hearing difficult y? No 08/16/2021 Is person blind or have serious difficulty seein g? No 08/16/2021 Does person have serious dif ficulty walking/climbing stairs? No 08/16/2021 Does person have difficulty dressing/bathing? No 08/16/2021 Does person have difficulty doing errands alone? No 08/16/2021 Cognitive Status Response Date of Assessm ent Does person have difficulty concentrating/remembering/making decisions? No 08/16/2021 Plan of Treatment Upcoming Encounters Date Type Department Care Team (Late st Contact Info) Description 07/19/2024 9:30 AM RURAL MAIL CONTRACTOR Office Visit [facility] - Pulmonology [address] [place] [address], [place] [address] Jack Milian MD [address] [place] [address] [address] DIV OF PULM/[place] [address] 08/02/2024 9:30 AM CDT Office Visit [facility] - Geriatrics [address] [place] [phone] Kristen Graf, FOREST WORKER-COMMUTER TRAIN OPERATOR [address] [address] 08/20/2024 1:10 AM CDT Clinical Support [facility] - Cardiology [address] [address] 10/10/2024 10:20 AM CDT Office Visit [facility] - Cardiology [address] [phone] [facility] [facility], [facility] [address] [place] [address] 11/19/2024 1:10 AM CDT Clinical Support [facility] - Cardiology [address] [facility], [place] [id number] [place] [phone] Goals Goal Patient Goal Type Associated Problems Recent Progress Patient-Stated? Author Medication Management General On track( 023 11:16 AM CDT) Lashay Esparza, RAYMOND Note: Expected end date: ongoing Interventions: Take all medications as prescribed Let your doctor know right away about any changes in your medications Make sure to request a refill of your medication at least one week prior to your last dose Medical Devices Implanted Type Area Gold Frame Assembler Device Identifier Shelf Expiration Date Model / Serial / Lot Lead Cp Nv Pace 52cm Strd Elut Pltn Amada - [id number] Implanted:Qty: 1 on 08/16/2021 by Bharathi Higuera MD at [facility] Right: Ventricle [employer] 04/13/2023 5076-52 / [id number] / Description:RV Lead Lead Cp Nv Pace 45cm Strd Elut Pltn Amada - [id number] Implanted:Qty: 1 on 08/16/2021 by Bharathi Higuera MD at [facility] Right: Atrium [employer] 05/06/2023 5076-45 / [id number] / Description:RA lead Pacemkr [employer] Wirelessly Crd - [id number] Implanted:Qty: 1 on 08/16/2021 by Bharathi Higuera MD at [facility] Right: Chest [employer] 01/09/2023 [id number] / [id number] / Description:ICD Procedures Procedure Name Priority Date/Time Associated Diagnosis Comments IN PM/ICD REMOTE TECH SERV Routine 05/26/2024 4:54 PM RURAL MAIL CONTRACTOR SSS (sick sinus syndrome) (HCC) IN PM DEVICE INTERROGATE REMOTE Routine 05/26/2024 4:54 PM RURAL MAIL CONTRACTOR SSS (sick sinus syndrome) (HCC) CARDIAC PROCEDURE ORDER 05/20/2024 ECHO COMPLETE Routine 04/08/2024 11:33 AM RURAL MAIL CONTRACTOR Essential hypertension DEXA BONE DENSITY AXIAL SKELETON Routine 06/17/2022 1:22 PM RURAL MAIL CONTRACTOR Primary osteoarthritis involving multiple joints Osteoporosis, unspecified osteoporosis type, unspecified pathological fracture presence from Last 3 Months or Most Recently Relevant to Health Maintenance Results * IN PM DEVICE INTERROGATE REMOTE, IN PM/ICD REMOTE TECH SERV (05/26/2024 4:54 PM RURAL MAIL CONTRACTOR) Narrative Nanette Aldridge MD - 05/26/2024 4:54 PM RURAL MAIL CONTRACTOR Nanette Aldridge MD 05/26/2024 4:57 PM Remote Interrogation: 05/20/2024 Pertinent Findings: Device function within normal limits. No events or therapy delivered. See below for details. Nanette Aldridge MD Cardiac Electrophysiology Nanette Aldridge MD PROCEDURE/MINOR SURG ICAL ORDERABLES * CARDIAC PROCEDURE ORDER (05/20/2024) Narrative 05/20/2024 Ordered by an unspecified provider. Scanned Document CARDIAC SERVICES ORD ERABLES * ECHO COMPLETE (04/08/2024 11:33 AM RURAL MAIL CONTRACTOR) RVOT diam Doppler 2.584 cm [facility] CV FUJI PACS IVSd 2D 1.274 cm [facility] CV FUJ I PACS LVIDd 4.316 cm [facility] CV FUJ I PACS LVIDs 2.371 cm [facility] CV FUJ I PACS LVOT diam 2.236 cm [facility] CV FUJ I PACS LVPWd 1.182 cm [facility] CV FUJ I PACS LV biplane EF 81.845 % [facility] CV FUJI PACS LV A2C EF 81.162 % [facility] CV FUJ I PACS LV A4C EF 83.483 % [facility] CV FUJ I PACS LV EDV A2C 128.958 ml [facility] CV FU JI PACS LV EDV A4C 128.559 ml [facility] CV FU JI PACS LV ESV A2C 24.293 ml [facility] CV FU JI PACS LV ESV A4C 21.234 ml [facility] CV FU JI PACS LVOT pk daniel 99.346 cm/s [facility] CV F U PACS LVOT VTI 22.146 cm [facility] CV [facility] I PACS RVIDd 2.598 cm [facility] CV [facility] I PACS RVOT pk daniel 60.223 cm/s [facility] CV F U PACS RVOT VTI 14.441 cm [facility] CV [facility] I PACS AV mn grad 3.949 mmHg [facility] CV FU JI PACS AV pk daniel 142.885 cm/s [facility] CV [facility] I PACS AV VTI 32.302 cm [facility] CV [facility] I PACS MV A pk daniel 59.369 cm/s [facility] CV F [facility] PACS MV E pk daniel 101.87 cm/s [facility] CV F U PACS LA vol index 0.038 l/m [facility] CV [facility] PACS LA vol BP 71.89 ml [facility] CV [facility] I PACS MV pk daniel regurg 550.944 cm/s [facility] CV [facility] PACS MR VTI 208.159 cm [facility] CV [facility] I PACS MV mn grad 1.29 mmHg [facility] CV FU PACS MV VTI 23.992 cm [facility] CV [facility] I PACS PV pk daniel 80.53 cm/s [facility] CV [facility] I PACS PV VTI 18.33 cm [facility] CV [facility] I PACS TR pk daniel 292.499 cm/s [facility] CV [facility] I PACS Ascending aorta 2.999 cm [facility] CV [facility] PACS AV PHT 0.618 s [facility] CV [facility] I PACS AV pk daniel regurg 413.482 cm/s [facility] CV [facility] PACS AR VTI 221.432 cm [facility] CV [facility] I PACS IN VTI 77.979 cm [facility] CV [facility] I PACS AR DECEL TIME 2.132 s [facility] RA area 20.245 cm [facility] RV-alvarado basal diam 3.721 cm [facility] RV-alvarado mid diam 3.694 cm [facility] TAPSE 2.15 cm [facility] CV [facility] I PACS IN PEAK END DIASTOLIC VELOCITY 141.199 cm/s [facility] CV FUJI PACS IN Decel [place] 191.392 cm/s2 [facility] C V FUJI PACS Myocardial strain charge 2 unitless [facility] CV FUJI PACS IVC Diam Expiration 2.057 cm [facility] CV FUJI PACS Aortic annulus 2.511 cm [facility] C V FUJI PACS LA size 3.788 cm [facility] CV FUJ I PACS Sinus of Valsalva 2.885 cm [facility] CV FUJI PACS ST junction 2.772 cm SSM CV F UJI PACS Anatomical Region Laterality Modality Ultrasound 04/08/2024 10:5 3 AM RURAL MAIL CONTRACTOR Narrative 04/09/2024 7:54 AM RURAL MAIL CONTRACTOR Summary * Findings consistent with sclerotic valves, mild MR and AR, at least moderate TR, trace IN, no valve stenosis, mild effects of HTN, mild LVH, mild diastolic dysfunction, dilated LA, elevated LA pressure, hyperdynamic LV, modest pulmonary vascular dysfunction, mildly elevated venous pressure and mild mixed PAH. No effusion. Normal size aorta. * Compared to the study from 11/20/2020. LV mass is higher, diastolic dysfunction worse. LA larger. LV larger. EF higher. MR and AR worse. TR worse and venous and PA pressure higher. Modest rise in PVR. * The left ventricle is at the upper limits of normal in size. EDVI 69 ml/M2. * Left ventricular systolic function is hyperdynamic with an estimated ejection fraction of 82 % by biplane method of disks. * Left ventricular segmental wall motion is normal. * The left ventricular mass is mildly increased with concentric hypertrophy. * The left ventricular diastolic function is consistent with grade II diastolic dysfunction and increased left atrial filling pressure. * A pacemaker wire is seen in the right ventricle. * The right ventricle is normal in size. * Right ventricular systolic function is normal. * Right ventricular wall thickness is normal. * The left atrium is mildly dilated with a left atrial volume index of 38 ml/m2 by BP MOD. * The right atrium is borderline dilated. Volume index 31 ml/M2. * A pacemaker wire is seen in the right atrium. * The aortic valve is trileaflet and mildly calcified. * There is no aortic valve stenosis with a peak velocity of 1 m/s, mean gradient of 4 mmHg, and aortic valve area of 2.69 cm2. Valve area index > 1.4 cm2/M2. Stroke volume index 46 ml/M2. Cardiac index 3.1 L/min/M2. * There is mild aortic valve regurgitation. * Aortic valve effective regurgitant orifice by PISA is 0.05 cm2. * Aortic valve regurgitant volume by pulsed Doppler quantitative flow method is 12 ml. * Aortic valve regurgitant fraction by pulsed Doppler quantitative flow method is 14 %. * The mitral valve is mildly thickened and displaying restricted posterior leaflet motion. * Mitral valve area by 2D Planimetry is 5.21 cm2. * There is mild mitral valve regurgitation. * Mitral valve effective regurgitant orifice by PISA is 0.10 cm2. * Mitral valve regurgitant volume by pulsed Doppler quantitative flow method is 21.00 ml. * Mitral valve regurgitant fraction by pulsed Doppler quantitative flow method is 22 %. * The tricuspid valve is normal. * Tricuspid valve effective regurgitant orifice by PISA is 0.30 cm2. R volume 30 ml/fraction 29%. * The pulmonary artery systolic pressure is mildly elevated, 42 mmHg. PVR 2.2 Wood units. * There is trace pulmonic regurgitation. * Pulmonary valve regurgitant volume by PISA is trace, 1 ml. * Estimated pulmonary arterial end diastolic pressure 16 mmHg. * Estimated pulmonary arterial mean pressure 25 mmHg. * The ascending aorta is normal in size measuring 3.0 cm with an index of 1.6 cm/m2. * Normal inferior vena cava with < 50% collapse upon inspiration consistent with elevated right atrial pressure, 8 mmHg. * There is no pericardial effusion. Patient Info Name: Salome Aaron Age: 83 years : 1940 Gender: Female Ht: 66 in Wt: 166 lb BSA: 1.89 m2 HR: 61 bpm BP: 120 / 80 mmHg Exam Date: 04/08/2024 10:53 AM Patient Status: O Study Site: [facility] Primary Location: [facility] Info Exam Type: ECHO COMPLETE Indications I10 - Essential hypertension Procedure(s) * A complete 2D, color Doppler, spectral Doppler, and M-Mode transthoracic echocardiogram was performed. Staff Referring Physician: Bharathi Higuera Ordering Provider: Bharathi Higuera Purchasing Associate: Bessy Shelton Left Ventricle The left ventricle is at the upper limits of normal in size. EDVI 69 ml/M2. Left ventricular systolic function is hyperdynamic with an estimated ejection fraction of 82 % by biplane method of disks. Left ventricular segmental wall motion is normal. The left ventricular mass is mildly increased with concentric hypertrophy. The left ventricular diastolic function is consistent with grade II diastolic dysfunction and increased left atrial filling pressure. Right Ventricle The right ventricle is normal in size. Right ventricular systolic function is normal. Right ventricular wall thickness is normal. A pacemaker wire is seen in the right ventricle. Ventricular Septum Intact interventricular septum visualized by 2D and color Doppler imaging. Left Atrium The left atrium is mildly dilated with a left atrial volume index of 38 ml/m2 by BP MOD. No mass or thrombus formation in the left atrium. Right Atrium The right atrium is borderline dilated. Volume index 31 ml/M2. A pacemaker wire is seen in the right atrium. No mass or thrombus formation in the right atrium. Atrial Septum Intact interatrial septum visualized by 2D and color Doppler imaging. Aortic Valve The aortic valve is trileaflet and mildly calcified. Mild decreased mobility of the coronary cusps. There is no aortic valve stenosis with a peak velocity of 1 m/s, mean gradient of 4 mmHg, and aortic valve area of 2.69 cm2. Valve area index > 1.4 cm2/M2. Stroke volume index 46 ml/M2. Cardiac index 3.1 L/min/M2. There is mild aortic valve regurgitation. Aortic valve regurgitant volume by PISA is 11 ml. Aortic valve effective regurgitant orifice by PISA is 0.05 cm2. Aortic valve regurgitant volume by pulsed Doppler quantitative flow method is 12 ml. Aortic valve regurgitant fraction by pulsed Doppler quantitative flow method is 14 %. Pulmonic Valve The pulmonic valve is normal. There is no pulmonic valve stenosis. There is trace pulmonic regurgitation. Pulmonary valve area by Continuity Equation is 4.1 cm2. Pulmonary valve regurgitant volume by PISA is trace, 1 ml. Pulmonary valve effective regurgitant orifice by PISA is trace, 0.01 cm2. Estimated pulmonary arterial end diastolic pressure 16 mmHg. Estimated pulmonary arterial mean pressure 25 mmHg. Mitral Valve The mitral valve is mildly thickened and displaying restricted posterior leaflet motion. There is no mitral valve stenosis. Mitral valve diastolic mean gradient is 1 mmHg. Mitral valve area by 2D Planimetry is 5.21 cm2. There is mild mitral valve regurgitation. Mitral valve regurgitant volume by PISA is 21 ml. Mitral valve effective regurgitant orifice by PISA is 0.10 cm2. Mitral valve regurgitant volume by pulsed Doppler quantitative flow method is 21.00 ml. Mitral valve regurgitant fraction by pulsed Doppler quantitative flow method is 22 %. Tricuspid Valve The tricuspid valve is normal. There is no significant tricuspid valve stenosis. There is moderate to severe tricuspid valve regurgitation. The pulmonary artery systolic pressure is mildly elevated, 42 mmHg. PVR 2.2 Wood units. Tricuspid valve effective regurgitant orifice by PISA is 0.30 cm2. R volume 30 ml/fraction 29%. Inferior Vena Cava The inferior vena cava is normal in size (< 2.1 cm). There is < 50% collapse of the IVC upon inspiration with an estimated right atrial pressure of 8 mmHg. Normal inferior vena cava with < 50% collapse upon inspiration consistent with elevated right atrial pressure, 8 mmHg. Pericardium/Pleural There is no pericardial effusion. Aorta The aortic root at the sinus of Valsalva is normal in size. The ascending aorta is normal in size. The aortic root at the sinus of Valsalva is normal in size measuring 2.9 cm with an index of 1.5 cm/m2. The ascending aorta is normal in size measuring 3.0 cm with an index of 1.6 cm/m2. The descending aortic arch is normal in size measuring 2.9 cm. Measurements Left Ventricular Outflow Tract Name Value Normal LVOT 2D LVOT Diameter 2.2 cm LVOT Area 3.9 cm2 LVOT Doppler LVOT Peak Velocity 1.0 m/s LVOT Peak Gradient 4 mmHg LVOT Mean Velocity 62.77 cm/s LVOT Mean Gradient 2 mmHg LVOT VTI 22.1 cm LVOT VTI/AV VTI Ratio 0.7 LVOT Stroke Volume 87 ml LVOT Stroke Volume Index 46 ml/m2 35-58 LVOT CO 4.2 l/min LVOT CI 2.2 l/min/m2 Pulmonic Valve Name Value Normal PV 2D RVOT Diameter (2D) 2.6 cm 1.7-2.7 RVOT Doppler RVOT Peak Velocity 0.6 m/s RVOT Peak Gradient 1 mmHg RVOT Mean Gradient 1 mmHg PV Doppler PV Peak Velocity 0.8 m/s PV Peak Gradient 3 mmHg PV Mean Gradient 1 mmHg PV Area (Cont Eq VTI) 4.13 cm2 PV Area Index (Cont Eq VTI) 2.19 cm2/m2 PV Area (Cont Eq Daniel) 3.9 cm2 PV Area Index (Cont Eq Daniel) 2.08 cm2/m2 PV Accel Time 121.11 ms PV Regurgitation Doppler IN End Diastolic Velocity 1.4 m/s IN End Diastolic Gradient 8 mmHg IN Vena Contracta 0.83 mm Mitral Valve Name Value Normal MV 2D/MM MV Area (Planimetry) 5.21 cm2 4.00-5.00 MV Annulus Diameter (PLAX) 2.4 cm MV Annulus Diameter (2C) 3.2 cm MV Annulus Diameter (4C) 3.2 cm <=4.4 MV Doppler MV Peak Gradient 4 mmHg MV Mean Gradient 1 mmHg MV DI (VTI) 1.08 MV Decel Time (CW) 173 ms MV PHT 50 ms MV Area (PHT) 4.39 cm2 4.00-5.00 MV Area (Cont Eq VTI) 3.62 cm2 MV Regurgitation Doppler MR Peak Gradient 118 mmHg MR Volume (Cont Eq) 21 ml MR Fraction (Cont Eq) 22 % MR Vena Contracta 3.0 mm MR ERO (PISA) 0.10 cm2 MR Volume (PISA) 21 ml MR Fraction (PISA) 22 % MV Diastolic Function MV E Peak Velocity 1.0 m/sec MV A Peak Velocity 0.6 m/sec MV E/A 1.7 MV Decel Time (PW) 173 ms MV A Wave Duration 130 ms Tricuspid Valve Name Value Normal TV 2D TV Annulus Diameter (4C) 3.0 cm TV Doppler TV Peak Velocity 0.8 m/s TV Peak Gradient 2 mmHg TV Mean Gradient 1 mmHg TV PHT 74 ms TV Area (PHT) 2.97 cm2 TV Regurgitation Doppler TR Peak Velocity 2.9 m/s TR Peak Gradient 34 mmHg TR ERO (PISA) 0.30 cm2 TR Volume (PISA) 30 ml TR Vena Contracta 1.66 mm Estimated PAP/RSVP RA Pressure 8 mmHg <=5 PA Systolic Pressure 42 mmHg <35 RV Systolic Pressure 42 mmHg <36 TV Diastolic Function TV E Peak Velocity 0.8 m/sec TV A Peak Velocity 0.6 m/sec TV E/A 1.2 0.8-2.0 TV Decel Time 255 ms >=120 RV IVRT (PW) 85 ms Pulmonary Vessels Name Value Normal Pulmonary Artery Doppler PA End Diastolic Pressure for IN 16 mmHg Aorta Name Value Normal Ascending Aorta Ao Annulus Diameter 2.5 cm 2.1-2.5 Ao Annulus Diam Index 1.3 cm/m2 1.2-1.4 Sinus of Valsalva Diameter 2.9 cm 2.4-3.6 Sinus of Valsalva Index 1.5 cm/m2 1.4-2.2 Ao Sin[place]unction Diameter 2.8 cm 2.3-2.9 Asc Ao Diameter 3.0 cm 1.9-3.5 Asc Ao Diameter Index 1.6 cm/m2 1.0-2.2 Mid Asc Ao Diameter 3.1 cm Thoracic Aorta Ao Arch Diameter 3.1 cm Distal Transverse Arch Diameter 2.9 cm Desc Ao Diameter 2.1 cm Septae/Shunt/Generic Name Value Normal Qp/Qs Qp/Qs 0.9 Miscellaneous Measurements CW Doppler of antegrade systolic flow in proximal descending aorta VTI 13.52 cm PW Doppler of antegrade systolic flow in proximal descending aorta Mean Gradient 0 mmHg PW Doppler of antegrade systolic flow in proximal descending aorta Peak Velocity 52.07 cm/s CW Doppler of antegrade systolic flow in proximal descending aorta Peak Gradient 1 mmHg CW Doppler of antegrade systolic flow in proximal descending aorta Mean Velocity 37.18 cm/s PW Doppler of antegrade systolic flow in proximal descending aorta Peak Gradient 1 mmHg PW Doppler of antegrade systolic flow in proximal descending aorta Mean Velocity 30.86 cm/s PW Doppler of antegrade systolic flow in proximal descending aorta VTI 10.55 cm CW Doppler of antegrade systolic flow in proximal descending aorta Mean Gradient 1 mmHg CW Doppler of antegrade systolic flow in proximal descending aorta Peak Velocity 60.86 cm/s Venous Name Value Normal IVC/SVC IVC Diameter 2.1 cm <=2.1 IVC Diameter (Insp 2D) 1.1 cm IVC Diameter Percent Change (2D) 47 % >=50 Aortic Valve Name Value Normal AV 2D/MM AV Area (Planimetry) 2.74 cm2 >=3.00 AV Cusp Sep (MM) 1.8 cm AV Doppler AV Peak Velocity 1.43 m/s AV Peak Gradient 8 mmHg AV Mean Gradient 4 mmHg AV VTI 32 cm AV Area (Cont Eq VTI) 2.69 cm2 >=2.00 AV Area (Cont Eq Daniel) 2.73 cm2 AV DI (VTI) 0.69 AV DI (Daniel) 0.70 AV Regurgitation 2D LVOT Area 3.93 cm2 AV Regurgitation Doppler AR Decel Time 2,132 ms AR PHT 618 ms AR Vena Contracta 1.78 mm AV ERO (PISA) 0.05 cm2 AR Fraction (PISA) 13 % AR Volume (PISA) 11 ml AR Fraction (Cont Eq) 14 % AR Volume (Cont Eq) 12 ml Ventricles Name Value Normal LV Dimensions 2D/MM IVS Diastolic Thickness (2D) 1.3 cm 0.6-0.9 LVID Diastole (2D) 4.3 cm 3.8-5.2 LVPW Diastolic Thickness (2D) 1.2 cm 0.6-0.9 LVID Systole (2D) 2.4 cm 2.2-3.5 LV Systolic Endo Area 4 cm2 LV Diastolic Endo Area 14 cm2 LV Systolic Epic Area 25 cm2 LV Diastolic Epic Area 37 cm2 LV Mass (2D Cubed) 192 g 67-162 LV Mass Index (2D Cubed) 102 g/m2 43-95 Relative Wall Thickness (2D) 0.55 <=0.42 LV Fractional Shortening/Ejection Fraction 2D/MM LV Fractional Shortening (2D) 40 % 27-45 LV EF (2D Teicholz) 77 % 54-74 LV Diastolic Volume (4C MOD) 129 ml LV EF (4C MOD) 83 % LV Diastolic Volume (2C MOD) 129 ml LV EF (2C MOD) 81 % LV Diastolic Volume (BP MOD) 132 ml 46-106 LV Diastolic Volume Index (BP MOD) 70 ml/m2 29-61 LV Systolic Volume (BP MOD) 24 ml 14-42 LV Systolic Volume Index (BP MOD) 13 ml/m2 8-24 LV EF (BP MOD) 82 % 54-74 LV Diastolic Length (4C) 8.1 cm LV Systolic Length (4C) 5.2 cm LV End Diastolic Volume (BP A-L) 93 ml LV End Systolic Volume (BP A-L) 19 ml LV EF (BP A-L) 79 % LV Stroke Volume (4C MOD) 107 ml RV Dimensions 2D/MM RVID Diastole (2D) 2.6 cm 2.5-3.5 RVID Systole (2D) 1.7 cm RV Diastolic Wall Thickness (2D) 0.5 cm 0.1-0.5 RV Systolic Wall Thickness (2D) 0.7 cm RV Basal Diastolic Dimension 3.7 cm 2.5-4.1 RV Mid-Cavity Diastolic Dimension 3.7 cm 1.9-3.5 RV Diastolic Length (4C) 7.1 cm 5.9-8.3 RV Diastolic Area (4C) 19 cm2 8-20 RV Systolic Area (4C) 8 cm2 3-11 TAPSE 2.2 cm >=1.7 RV Fractional Shortening 2D RV FAC (4C) 55 % >=35 Atria Name Value Normal LA Dimensions LA Dimension (2D) 3.8 cm 2.7-3.8 LA Dimen Index (2D) 2.0 cm/m2 LA Volume (BP MOD) 72 ml LA Volume Index (BP MOD) 38 ml/m2 16-34 RA Dimensions RA Area (4C) 20 cm2 <=18 RA Area (4C) Index 11 cm2/m2 RA ESV (4C MOD) 58 ml 15-27 RA ESV Index (4C MOD) 31 ml/m2 16-34 Report Signatures Finalized by Hilton Correa MD on 04/09/2024 07:54 AM Procedure Note Hilton Correa MD - 04/09/2024 Summary * Findings consistent with sclerotic valves, mild MR and AR, at least moderate TR, trace IN, no valve stenosis, mild effects of HTN, mild LVH,mild diastolic dysfunction, dilated LA, elevated LA pressure, hyperdynamicLV, modest pulmonary vascular dysfunction, mildly elevated venous pressureand mild mixed PAH. No effusion. Normal size aorta. * Compared to the study from 11/20/2020. LV mass is higher, diastolic dysfunction worse. LA larger. LV larger. EF higher. MR and AR worse.TR worse and venous and PA pressure higher. Modest rise in PVR. * The left ventricle is at the upper limits of normal in size. EDVI 69 ml/M2. * Left ventricular systolic function is hyperdynamic with an estimated ejection fraction of 82 % by biplane method of disks. * Left ventricular segmental wall motion is normal. * The left ventricular mass is mildly increased with concentrichypertrophy. * The left ventricular diastolic function is consistent with grade II diastolic dysfunction and increased left atrial filling pressure. * A pacemaker wire is seen in the right ventricle. * The right ventricle is normal in size. * Right ventricular systolic function is normal. * Right ventricular wall thickness is normal. * The left atrium is mildly dilated with a left atrial volume index of38 ml/m2 by BP MOD. * The right atrium is borderline dilated. Volume index 31 ml/M2. * A pacemaker wire is seen in the right atrium. * The aortic valve is trileaflet and mildly calcified. * There is no aortic valve stenosis with a peak velocity of 1 m/s,mean gradient of 4 mmHg, and aortic valve area of 2.69 cm2. Valve area index >1.4 cm2/M2. Stroke volume index 46 ml/M2. Cardiac index 3.1 L/min/M2. * There is mild aortic valve regurgitation. * Aortic valve effective regurgitant orifice by PISA is 0.05 cm2. * Aortic valve regurgitant volume by pulsed Doppler quantitative flowmethod is 12 ml. * Aortic valve regurgitant fraction by pulsed Doppler quantitativeflow method is 14 %. * The mitral valve is mildly thickened and displaying restrictedposterior leaflet motion. * Mitral valve area by 2D Planimetry is 5.21 cm2. * There is mild mitral valve regurgitation. * Mitral valve effective regurgitant orifice by PISA is 0.10 cm2. * Mitral valve regurgitant volume by pulsed Doppler quantitative flowmethod is 21.00 ml. * Mitral valve regurgitant fraction by pulsed Doppler quantitativeflow method is 22 %. * The tricuspid valve is normal. * Tricuspid valve effective regurgitant orifice by PISA is 0.30 cm2. R volume 30 ml/fraction 29%. * The pulmonary artery systolic pressure is mildly elevated, 42 mmHg.PVR 2.2 Wood units. * There is trace pulmonic regurgitation. * Pulmonary valve regurgitant volume by PISA is trace, 1 ml. * Estimated pulmonary arterial end diastolic pressure 16 mmHg. * Estimated pulmonary arterial mean pressure 25 mmHg. * The ascending aorta is normal in size measuring 3.0 cm with an indexof 1.6 cm/m2. * Normal inferior vena cava with < 50% collapse upon inspirationconsistent with elevated right atrial pressure, 8 mmHg. * There is no pericardial effusion. Patient Info Name: Salome Aaron Age: 83 years : 1940 Gender: Female Ht: 66 in Wt: 166 lb BSA: 1.89 m2 HR: 61 bpm BP: 120 / 80 mmHg Exam Date: 04/08/2024 10:53 AM Patient Status: O Study Site: [facility] Primary Location: [facility] Info Exam Type: ECHO COMPLETE Indications I10 - Essential hypertension Procedure(s) * A complete 2D, color Doppler, spectral Doppler, and M-Modetransthoracic echocardiogram was performed. Staff Referring Physician: Bharathi Higuera Ordering Provider: Bharathi Higuera Purchasing Associate: Bessy Shelton Left Ventricle The left ventricle is at the upper limits of normal in size. EDVI 69ml/M2. Left ventricular systolic function is hyperdynamic with an estimatedejection fraction of 82 % by biplane method of disks. Left ventricular segmentalwall motion is normal. The left ventricular mass is mildly increased with concentric hypertrophy. The left ventricular diastolic function isconsistent with grade II diastolic dysfunction and increased left atrial filling pressure. Right Ventricle The right ventricle is normal in size. Right ventricular systolicfunction is normal. Right ventricular wall thickness is normal. A pacemaker wireis seen in the right ventricle. Ventricular Septum Intact interventricular septum visualized by 2D and color Dopplerimaging. Left Atrium The left atrium is mildly dilated with a left atrial volume index of38 ml/m2 by BP MOD. No mass or thrombus formation in the left atrium. Right Atrium The right atrium is borderline dilated. Volume index 31 ml/M2. Apacemaker wire is seen in the right atrium. No mass or thrombus formation in theright atrium. Atrial Septum Intact interatrial septum visualized by 2D and color Doppler imaging. Aortic Valve The aortic valve is trileaflet and mildly calcified. Mild decreasedmobility of the coronary cusps. There is no aortic valve stenosis with a peakvelocity of 1 m/s, mean gradient of 4 mmHg, and aortic valve area of 2.69 cm2.Valve area index > 1.4 cm2/M2. Stroke volume index 46 ml/M2. Cardiac index3.1 L/min/M2. There is mild aortic valve regurgitation. Aortic valveregurgitant volume by PISA is 11 ml. Aortic valve effective regurgitant orifice byPISA is 0.05 cm2. Aortic valve regurgitant volume by pulsed Doppler quantitativeflow method is 12 ml. Aortic valve regurgitant fraction by pulsed Doppler quantitative flow method is 14 %. Pulmonic Valve The pulmonic valve is normal. There is no pulmonic valve stenosis. Thereis trace pulmonic regurgitation. Pulmonary valve area by Continuity Equationis 4.1 cm2. Pulmonary valve regurgitant volume by PISA is trace, 1 ml.Pulmonary valve effective regurgitant orifice by PISA is trace, 0.01 cm2.Estimated pulmonary arterial end diastolic pressure 16 mmHg. Estimated pulmonary arterial mean pressure 25 mmHg. Mitral Valve The mitral valve is mildly thickened and displaying restrictedposterior leaflet motion. There is no mitral valve stenosis. Mitral valve diastolicmean gradient is 1 mmHg. Mitral valve area by 2D Planimetry is 5.21 cm2. Thereis mild mitral valve regurgitation. Mitral valve regurgitant volume by PISAis 21 ml. Mitral valve effective regurgitant orifice by PISA is 0.10 cm2.Mitral valve regurgitant volume by pulsed Doppler quantitative flow method is21.00 ml. Mitral valve regurgitant fraction by pulsed Doppler quantitativeflow method is 22 %. Tricuspid Valve The tricuspid valve is normal. There is no significant tricuspid valve stenosis. There is moderate to severe tricuspid valve regurgitation. The pulmonary artery systolic pressure is mildly elevated, 42 mmHg. PVR 2.2Wood units. Tricuspid valve effective regurgitant orifice by PISA is 0.30 cm2.R volume 30 ml/fraction 29%. Inferior Vena Cava The inferior vena cava is normal in size (< 2.1 cm). There is < 50%collapse of the IVC upon inspiration with an estimated right atrial pressure of 8mmHg. Normal inferior vena cava with < 50% collapse upon inspiration consistentwith elevated right atrial pressure, 8 mmHg. Pericardium/Pleural There is no pericardial effusion. Aorta The aortic root at the sinus of Valsalva is normal in size. Theascending aorta is normal in size. The aortic root at the sinus of Valsalva isnormal in size measuring 2.9 cm with an index of 1.5 cm/m2. The ascending aorta is normal in size measuring 3.0 cm with an index of 1.6 cm/m2. Thedescending aortic arch is normal in size measuring 2.9 cm. Measurements Left Ventricular Outflow Tract Name Value Normal LVOT 2D LVOT Diameter 2.2 cm LVOT Area 3.9 cm2 LVOT Doppler LVOT Peak Velocity 1.0 m/s LVOT Peak Gradient 4 mmHg LVOT Mean Velocity 62.77 cm/s LVOT Mean Gradient 2 mmHg LVOT VTI 22.1 cm LVOT VTI/AV VTI Ratio 0.7 LVOT Stroke Volume 87 ml LVOT Stroke Volume Index 46 ml/m2 35-58 LVOT CO 4.2 l/min LVOT CI 2.2 l/min/m2 Pulmonic Valve Name Value Normal PV 2D RVOT Diameter (2D) 2.6 cm 1.7-2.7 RVOT Doppler RVOT Peak Velocity 0.6 m/s RVOT Peak Gradient 1 mmHg RVOT Mean Gradient 1 mmHg PV Doppler PV Peak Velocity 0.8 m/s PV Peak Gradient 3 mmHg PV Mean Gradient 1 mmHg PV Area (Cont Eq VTI) 4.13 cm2 PV Area Index (Cont Eq VTI) 2.19 cm2/m2 PV Area (Cont Eq Daniel) 3.9 cm2 PV Area Index (Cont Eq Daniel) 2.08 cm2/m2 PV Accel Time 121.11 ms PV Regurgitation Doppler IN End Diastolic Velocity 1.4 m/s IN End Diastolic Gradient 8 mmHg IN Vena Contracta 0.83 mm Mitral Valve Name Value Normal MV 2D/MM MV Area (Planimetry) 5.21 cm2 4.00-5.00 MV Annulus Diameter (PLAX) 2.4 cm MV Annulus Diameter (2C) 3.2 cm MV Annulus Diameter (4C) 3.2 cm <=4.4 MV Doppler MV Peak Gradient 4 mmHg MV Mean Gradient 1 mmHg MV DI (VTI) 1.08 MV Decel Time (CW) 173 ms MV PHT 50 ms MV Area (PHT) 4.39 cm2 4.00-5.00 MV Area (Cont Eq VTI) 3.62 cm2 MV Regurgitation Doppler MR Peak Gradient 118 mmHg MR Volume (Cont Eq) 21 ml MR Fraction (Cont Eq) 22 % MR Vena Contracta 3.0 mm MR ERO (PISA) 0.10 cm2 MR Volume (PISA) 21 ml MR Fraction (PISA) 22 % MV Diastolic Function MV E Peak Velocity 1.0 m/sec MV A Peak Velocity 0.6 m/sec MV E/A 1.7 MV Decel Time (PW) 173 ms MV A Wave Duration 130 ms Tricuspid Valve Name Value Normal TV 2D TV Annulus Diameter (4C) 3.0 cm TV Doppler TV Peak Velocity 0.8 m/s TV Peak Gradient 2 mmHg TV Mean Gradient 1 mmHg TV PHT 74 ms TV Area (PHT) 2.97 cm2 TV Regurgitation Doppler TR Peak Velocity 2.9 m/s TR Peak Gradient 34 mmHg TR ERO (PISA) 0.30 cm2 TR Volume (PISA) 30 ml TR Vena Contracta 1.66 mm Estimated PAP/RSVP RA Pressure 8 mmHg <=5 PA Systolic Pressure 42 mmHg <35 RV Systolic Pressure 42 mmHg <36 TV Diastolic Function TV E Peak Velocity 0.8 m/sec TV A Peak Velocity 0.6 m/sec TV E/A 1.2 0.8-2.0 TV Decel Time 255 ms >=120 RV IVRT (PW) 85 ms Pulmonary Vessels Name Value Normal Pulmonary Artery Doppler PA End Diastolic Pressure for IN 16 mmHg Aorta Name Value Normal Ascending Aorta Ao Annulus Diameter 2.5 cm 2.1-2.5 Ao Annulus Diam Index 1.3 cm/m2 1.2-1.4 Sinus of Valsalva Diameter 2.9 cm 2.4-3.6 Sinus of Valsalva Index 1.5 cm/m2 1.4-2.2 Ao Sinotub Junction Diameter 2.8 cm 2.3-2.9 Asc Ao Diameter 3.0 cm 1.9-3.5 Asc Ao Diameter Index 1.6 cm/m2 1.0-2.2 Mid Asc Ao Diameter 3.1 cm Thoracic Aorta Ao Arch Diameter 3.1 cm Distal Transverse Arch Diameter 2.9 cm Desc Ao Diameter 2.1 cm Septae/Shunt/Generic Name Value Normal Qp/Qs Qp/Qs 0.9 Miscellaneous Measurements CW Doppler of antegrade systolic flow in proximal descending aorta VTI 13.52 cm PW Doppler of antegrade systolic flow in proximal descending aorta Mean Gradient 0 mmHg PW Doppler of antegrade systolic flow in proximal descending aorta Peak Velocity 52.07 cm/s CW Doppler of antegrade systolic flow in proximal descending aorta Peak Gradient 1 mmHg CW Doppler of antegrade systolic flow in proximal descending aorta Mean Velocity 37.18 cm/s PW Doppler of antegrade systolic flow in proximal descending aorta Peak Gradient 1 mmHg PW Doppler of antegrade systolic flow in proximal descending aorta Mean Velocity 30.86 cm/s PW Doppler of antegrade systolic flow in proximal descending aorta VTI 10.55 cm CW Doppler of antegrade systolic flow in proximal descending aorta Mean Gradient 1 mmHg CW Doppler of antegrade systolic flow in proximal descending aorta Peak Velocity 60.86 cm/s Venous Name Value Normal IVC/SVC IVC Diameter 2.1 cm <=2.1 IVC Diameter (Insp 2D) 1.1 cm IVC Diameter Percent Change (2D) 47 % >=50 Aortic Valve Name Value Normal AV 2D/MM AV Area (Planimetry) 2.74 cm2 >=3.00 AV Cusp Sep (MM) 1.8 cm AV Doppler AV Peak Velocity 1.43 m/s AV Peak Gradient 8 mmHg AV Mean Gradient 4 mmHg AV VTI 32 cm AV Area (Cont Eq VTI) 2.69 cm2 >=2.00 AV Area (Cont Eq Daniel) 2.73 cm2 AV DI (VTI) 0.69 AV DI (Daniel) 0.70 AV Regurgitation 2D LVOT Area 3.93 cm2 AV Regurgitation Doppler AR Decel Time 2,132 ms AR PHT 618 ms AR Vena Contracta 1.78 mm AV ERO (PISA) 0.05 cm2 AR Fraction (PISA) 13 % AR Volume (PISA) 11 ml AR Fraction (Cont Eq) 14 % AR Volume (Cont Eq) 12 ml Ventricles Name Value Normal LV Dimensions 2D/MM IVS Diastolic Thickness (2D) 1.3 cm 0.6-0.9 LVID Diastole (2D) 4.3 cm 3.8-5.2 LVPW Diastolic Thickness (2D) 1.2 cm 0.6-0.9 LVID Systole (2D) 2.4 cm 2.2-3.5 LV Systolic Endo Area 4 cm2 LV Diastolic Endo Area 14 cm2 LV Systolic Epic Area 25 cm2 LV Diastolic Epic Area 37 cm2 LV Mass (2D Cubed) 192 g 67-162 LV Mass Index (2D Cubed) 102 g/m2 43-95 Relative Wall Thickness (2D) 0.55 <=0.42 LV Fractional Shortening/Ejection Fraction 2D/MM LV Fractional Shortening (2D) 40 % 27-45 LV EF (2D Teicholz) 77 % 54-74 LV Diastolic Volume (4C MOD) 129 ml LV EF (4C MOD) 83 % LV Diastolic Volume (2C MOD) 129 ml LV EF (2C MOD) 81 % LV Diastolic Volume (BP MOD) 132 ml 46-106 LV Diastolic Volume Index (BP MOD) 70 ml/m2 29-61 LV Systolic Volume (BP MOD) 24 ml 14-42 LV Systolic Volume Index (BP MOD) 13 ml/m2 8-24 LV EF (BP MOD) 82 % 54-74 LV Diastolic Length (4C) 8.1 cm LV Systolic Length (4C) 5.2 cm LV End Diastolic Volume (BP A-L) 93 ml LV End Systolic Volume (BP A-L) 19 ml LV EF (BP A-L) 79 % LV Stroke Volume (4C MOD) 107 ml RV Dimensions 2D/MM RVID Diastole (2D) 2.6 cm 2.5-3.5 RVID Systole (2D) 1.7 cm RV Diastolic Wall Thickness (2D) 0.5 cm 0.1-0.5 RV Systolic Wall Thickness (2D) 0.7 cm RV Basal Diastolic Dimension 3.7 cm 2.5-4.1 RV Mid-Cavity Diastolic Dimension 3.7 cm 1.9-3.5 RV Diastolic Length (4C) 7.1 cm 5.9-8.3 RV Diastolic Area (4C) 19 cm2 8-20 RV Systolic Area (4C) 8 cm2 3-11 TAPSE 2.2 cm >=1.7 RV Fractional Shortening 2D RV FAC (4C) 55 % >=35 Atria Name Value Normal LA Dimensions LA Dimension (2D) 3.8 cm 2.7-3.8 LA Dimen Index (2D) 2.0 cm/m2 LA Volume (BP MOD) 72 ml LA Volume Index (BP MOD) 38 ml/m2 16-34 RA Dimensions RA Area (4C) 20 cm2 <=18 RA Area (4C) Index 11 cm2/m2 RA ESV (4C MOD) 58 ml 15-27 RA ESV Index (4C MOD) 31 ml/m2 16-34 Report Signatures Finalized by Hilton Correa MD on 04/09/2024 07:54 AM Bharathi Higuera MD ECHO CUPID * BONE DENSITY AXIAL SKELETON(1OR MORE SITES)[id number] (06/17/2022 1:22 PM RURAL MAIL CONTRACTOR) Anatomical Region Laterality Modality Other 06/20/2022 5:28 PM RURAL MAIL CONTRACTOR Narrative 06/20/2022 5:29 PM RURAL MAIL CONTRACTOR PROCEDURE: DEXA BONE DENSITY AXIAL SKELETON, DATE/TIME OF EXAM: 06/17/2022 1:23 PM, LOCATION [facility] 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 LUMBAR SPINE (L1-L4): Bone mineral density (g/cm2): 1.225 Current T-score: 1.6 RIGHT FEMORAL NECK: Bone mineral density (g/cm2): 1.028 Current T-score: 1.6 BONE DENSITY ASSESSMENT: WHO Category: Normal. FRAX CALCULATION is not reported since all T-scores are above -1.0. Please see the PACS images for additional details. 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 LUMBAR SPINE (L1-L4): Bone mineral density (g/cm2): 1.225 Current T-score: 1.6 RIGHT FEMORAL NECK: Bone mineral density (g/cm2): 1.028 Current T-score: 1.6 BONE DENSITY ASSESSMENT: WHO Category: Normal. FRAX CALCULATION is not reported since all T-scores are above -1.0. Please see the PACS images for additional details. World Health Organization definitions of standard deviations relative to the mean T-score: Normal bone density = -1.0 and above Osteopenia = between -1.0 and -2.5 Osteoporosis = -2.5 and below > Interpreting Provider: Teetee Yun DO on 06/20/2022 5:29 PM Kristen Graf FOREST WORKER-COMMUTER TRAIN OPERATOR DEXA ORDERABLES from Last 3 Months or Most Recently Relevant to Health Maintenance Advance Directives * Full Code (Latest Code Status on File) Date Activated Date Inactivated Comments 07/03/2021 6:20 PM 07/04/2021 5:26 PM Care Teams Roast Master Relationship Specialty Start Date End Date Kristen Graf, FOREST WORKER-COMMUTER TRAIN OPERATOR [address] [phone] PCP - General 05/24/21
--- OUTSIDE RECORDS SUMMARY | 2024-06-26 12:17 | XMS_ITS | Encounter Summary ---
Author Organization [facility] Health Address [address] [place] [address] Care Team Providers Care Industrial Education Instructor Name Role Phone Kristen Graf APRN-DIRECTOR [employer] Primary Care Provider Reason for Visit * Reason Onset Date Comments Appointment 07/29/2022 Encounter Details Date Type Department Care Team (Late st Contact Info) Description 07/29/2022 Telephone [facility] [address] [place] [address] Dominic Hines MD [address] [place], [place] [id number] Appointment Social History Tobacco Use Types Packs/Day Years Used Date Smoking Tobacco: Never Smokeless Tobacco: Never Alcohol Use Standard Drinks/Week Comments Never 0 [...] occasion? Never 08/16/2021 PHQ-2 Answer Date Recorded PHQ2 TOTAL SCORE 0 01/28/2022 Sex and Gender Information Value Date Recorded Sex Assigned at Not on file Gender Identity Not on file Sexual Orientation Not on file documented as of this encounter Functional Status Functional Status Response Date of [...] person have difficulty concentrating/remembering/making decisions? No 08/16/2021 documented as of this encounter Miscellaneous Notes * Telephone Encounter - Cyndi Padilla - 07/29/2022 3:11 PM CDT Pt needs to reschedule her 08-11-22 appointment documented in this encounter Plan of Treatment Upcoming Encounters Date Type Department Care Team (Late st Contact Info) Description 07/19/2024 9:30 AM WEAVER APPRENTICE Office Visit [facility] - Pulmonology [address] [place] [address], [place] [address] Jack Milian MD [address] [place] [address] [address] DIV OF PULM/[place] [address] 08/02/2024 9:30 AM CDT Office Visit [facility] - Geriatrics [address] [place] [address], [place] [address] Kristen Graf, CLINICAL ACCOUNT SPECIALIST-DIRECTOR [employer] [address] [facility] [address] [place] [address] 08/20/2024 1:10 AM CDT Clinical Support [facility] - Cardiology [address] [facility], [address] [phone] 10/10/2024 10:20 AM CDT Office Visit [facility] - Cardiology [facility], [address] [phone] Bharathi Higuera MD [address] [facility], [id number] [place] [address] 11/19/2024 1:10 AM CDT Clinical Support [facility] - Cardiology [address] [facility], [id number] [place] [phone] documented as of this encounter Visit Diagnoses Not on filedocumented in this encounter Care Teams Industrial Education Instructor Relationship Specialty Start Date End Date Kristen Graf, CLINICAL ACCOUNT SPECIALIST-DIRECTOR [employer] [address] [phone] PCP - General 05/24/21 documented as of this encounter
--- OUTSIDE RECORDS SUMMARY | 2024-06-26 12:17 | XMS_ITS | Clinical Summary ---
Author Organization [facility] Address [address] [place] [address] Care Team Providers Care Welfare Interviewer Name Role Phone [facility]en [facility]f [facility] Primary Care Provider Source Comments [facility] [employer],non-owned Affiliates and Associated Physician Practices is amultiple site organization consisting of ambulatory clinics and hospital sitesin [place], [place] and [place]. This disclosure is being madepursuant to the Care Everywhere program and may not contain all information available regarding this patient. Last updated 18.[facility] Allergies No known active allergies Medications * [...] affected area 4 times daily 100 g 09/15/2023 Active losartan (Cozaar) 25 MG tabletIndications: Essential hypertension Take 1 (one) tablet by mouth once daily 90 tablet 3 09/21/2023 Active cycloSPORINE (Restasis) 0.05 % ophthalmic suspension Instill 1 (one) drop into both eyes 2 times daily Active ipratropium (Atrovent) 0.03 % nasal spray Dexter 2 sprays into each nostril 2 times [...] migh t be different from the original. Day Guard - Dr Asaf Ramirez Problem Noted Date [...] Typical atrial flutter 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, nontoxic, multinodular Encounters Date Type Department Care Team Description 05/21/2024 1:10 AM DIETITIAN THERAPEUTIC Clinical Support [facility] - Cardiology [address] [facility], [facility] [address] [place] [address] SSS (sick sinus syndrome) (HCC) 04/26/2024 Travel 04/08/2024 11:00 AM DIETITIAN THERAPEUTIC Ancillary Procedure [facility] - Echosonography [address] [facility], [facility] [address] [place] [address] Essential hypertension 04/08/2024 Travel 03/28/2024 2:00 PM DIETITIAN THERAPEUTIC Office Visit [facility] - Cardiology [address] [facility], [facility] [address] [place] [address] Bharathi Higuera MD Essential hypertension (Primary Dx); Typical atrial flutter (HCC) 03/28/2024 Travel from Last 3 Months Immunizations Name Administration Dates Next Due [employer] primary monoval ent 12+ yr 0.3mL Purple cap 02/24/2021,07/18/2020,06/21/2020 INFLUENZA VACCINE 02/24/2022,02/13/2021 INFLUENZA VACCINE, HIGH-DOSE , QUADR. (FLUZONE HIGH-DOSE QUADRIVALENT; 65Y+), 0.7 ML (HD-IIV4) 02/13/2021,02/06/2020,02/27/2018 PNEUMOCOCCAL PCV20 CONJ VAC IM 01/06/2023 PNEUMOCOCCAL PPSV23 02/13/2020 Family History Medical History Relation Name Comments Hypertension Father 78 Migraine Father 78 Asthma Maternal Grandfather CAD (Coronary Artery Disease) Mother 93 COPD - Chronic Obstructive Pulmonary Disease Mother 93 Hypertension Mother 93 Renal Disease Mother 93 Relation Name Status Comments Father 78 Maternal Grandfather Mother 93 Social History Tobacco Use Types Packs/Day Years [...] Comments Blood Pressure 168/72 03/28/2024 1:41 PM DIETITIAN THERAPEUTIC Pulse 64 03/28/2024 1:41 PM DIETITIAN THERAPEUTIC Temperature 36.7 C (98.1 F) 03/28/2024 1:41 PM DIETITIAN THERAPEUTIC Respiratory Rate 16 03/28/2024 1:41 PM DIETITIAN THERAPEUTIC Oxygen Saturation 99% 03/28/2024 1:41 PM DIETITIAN THERAPEUTIC Inhaled Oxygen Concentration - - Weight 75.3 kg (166 lb) 03/28/2024 1:41 PM DIETITIAN THERAPEUTIC Height 167.6 cm (5' 6 ) 03/28/2024 1:41 PM DIETITIAN THERAPEUTIC Body Mass Index 26.79 03/28/2024 1:41 PM DIETITIAN THERAPEUTIC Plan of Treatment Upcoming Encounters Date Type Department Care Team (Late st Contact Info) Description 07/19/2024 9:30 AM DIETITIAN THERAPEUTIC Office Visit [facility] - Pulmonology [address] [place] [phone] Jack Milian MD [address] [place] [address] DIV OF PULM/[place] [address] 08/02/2024 9:30 AM CDT [facility] [address] [place] [phone] Kristen Graf, SUPERVISOR [employer] [address] 08/20/2024 1:10 AM CDT Clinical Support [facility] - Cardiology [address] [place] [phone] 10/10/2024 10:20 AM CDT Office Visit [facility] - Cardiology [address] [place] [phone] Bharathi Higuera MD [facility] [address] [address] 11/19/2024 1:10 AM CDT Clinical Support [facility] - Cardiology [address] [facility], [facility] [address] [place] [address] Health Maintenance Due Date Last Done Comments MEDICARE AWV 12 MONTHS 1940 DTAP/TDAP/TD VACCINES (1 - Tdap) 08/30/1959 ZOSTER VACCINE (1 of 2) 1990 Respiratory Syncytial Virus (RSV) Vaccine Pt: or over 60 yrs (1 - 1-dose 75+ series) 08/30/2015 COVID-19 VACCINE ( season) 2024 02/07/2023, 07/01/2022, 09/07/2021, Additional history exists DEPRESSION SCREENING 05/15/2024 07/18/2023, 09/30/2022, 10/15/2021 BONE DENSITY TESTING Completed 06/17/2022, 10/23/19 13 PNEUMOCOCCAL VACCINE 50+ Completed 01/06/2023, 05/2019 INFLUENZA VACCINE Completed 01/31/2024, , 02/24/2022, Additional history exists HEPATITIS B VACCINE Aged Out No longe r eligible based on patient's age to complete this topic HIB VACCINE Aged Out No longer eligi ble based on patient's age to complete this topic HPV VACCINE Aged Out No longer eligi ble based on patient's age to complete this topic MENINGOCOCCAL (Group B) VACCINE Aged Out No longer eligible based on patient's age to complete this topic MENINGOCOCCAL VACCINE Aged Out No keshia ninoska eligible based on patient's age to complete this topic Goals Goal Patient Goal Type Associated Problems Recent Progress Patient-Stated? Author Medication Management General On track( 023 11:16 AM CDT) Lashay Esparza, RN Note: Expected end date: ongoing Interventions: Take all medications as prescribed Let your doctor know right away about any changes in your medications Make sure to request a refill of your medication at least one week prior to your last dose Medical Devices Implanted Type Area Industrial Paramedic Device Identifier Shelf Expiration Date Model / Serial / Lot Lead Cp Nv Pace 52cm St[address] El[address]tn Amada - [id number] Implanted:Qty: 1 on 08/16/2021 by Bharathi Higuera MD at [facility] Right: Ventricle [employer] 04/13/2023 5076-52 / [id number] / Description:RV Lead Lead Cp Nv Pace 45cm Strd Elut Pltn Amada - [id number] Implanted:Qty: 1 on 08/16/2021 by Bharathi Higuera MD at [facility] Right: Atrium [employer] 05/06/2023 5076-45 / [id number] / Description:RA lead Pacemkr Rosette Wirelessly Crd - [id number] Implanted:Qty: 1 on 08/16/2021 by Bharathi Higuera MD at [facility] Right: Chest [employer] 01/09/2023 [id number] / [id number] / Description:ICD Procedures Procedure Name Priority Date/Time Associated Diagnosis Comments ME PM/ICD REMOTE TECH SERV Routine 05/26/2024 4:54 PM DIETITIAN THERAPEUTIC SSS (sick sinus syndrome) (HCC) ME PM DEVICE INTERROGATE REMOTE Routine 05/26/2024 4:54 PM DIETITIAN THERAPEUTIC SSS (sick sinus syndrome) (HCC) CARDIAC PROCEDURE ORDER 05/20/2024 ECHO COMPLETE Routine 04/08/2024 11:33 AM DIETITIAN THERAPEUTIC Essential hypertension DEXA BONE DENSITY AXIAL SKELETON Routine 06/17/2022 1:22 PM DIETITIAN THERAPEUTIC Primary osteoarthritis involving multiple joints Osteoporosis, unspecified osteoporosis type, unspecified pathological fracture presence from Last 3 Months or Most Recently Relevant to Health Maintenance Results * ME PM DEVICE INTERROGATE REMOTE, ME PM/ICD REMOTE TECH SERV (05/26/2024 4:54 PM DIETITIAN THERAPEUTIC) Narrative Nanette Aldridge MD - 05/26/2024 4:54 PM DIETITIAN THERAPEUTIC Nanette Aldridge MD 05/26/2024 4:57 PM Remote Interrogation: 05/20/2024 Pertinent Findings: Device function within normal limits. No events or therapy delivered. See below for details. Nanette Aldridge MD Cardiac Electrophysiology Nanette Aldridge MD PROCEDURE/MINOR SURG ICAL ORDERABLES * CARDIAC PROCEDURE ORDER (05/20/2024) Narrative 05/20/2024 Ordered by an unspecified provider. Scanned Document CARDIAC SERVICES ORD ERABLES * ECHO COMPLETE (04/08/2024 11:33 AM DIETITIAN THERAPEUTIC) RVOT diam Doppler 2.584 [facility] 2D 1.274 cm [facility] I PACS LVIDd 4.316 cm [facility] I PACS LVIDs 2.371 cm [facility] I PACS LVOT diam 2.236 cm [facility] I PACS LVPWd 1.182 cm [facility] I PACS LV biplane EF 81.845 % [facility] LV A2C EF 81.162 % [facility] CV FUJ I PACS LV A4C EF 83.483 % [facility] I PACS LV EDV A2C 128.958 ml SSM CV FU JI PACS LV EDV A4C 128.559 ml SSM CV FU JI PACS LV ESV A2C 24.293 ml SSM CV FU JI PACS LV ESV A4C 21.234 ml SSM CV FU JI PACS LVOT pk daniel 99.346 cm/s SSM CV F U PACS LVOT VTI 22.146 cm [facility] I PACS RVIDd 2.598 cm [facility] I PACS RVOT pk daniel 60.223 cm/s SSM CV F UJI PACS RVOT VTI 14.441 cm [facility] I PACS AV mn grad 3.949 mmHg SSM CV FU JI PACS AV pk daniel 142.885 cm/s [facility] CV [facility] I PACS AV VTI 32.302 cm [facility] I PACS MV A pk daniel 59.369 cm/s SSM CV F UJI PACS MV E pk daniel 101.87 cm/s SSM CV F UJI PACS LA vol index 0.038 l/m [facility] LA vol BP 71.89 ml SSM CV FUJ I PACS MV pk daniel regurg 550.944 cm/s [facility] MR VTI 208.159 cm [facility] CV [facility] I PACS MV mn grad 1.29 mmHg SSM CV FU JI PACS MV VTI 23.992 cm SSM CV FUJ I PACS PV pk daniel 80.53 cm/s SSM CV FUJ I PACS PV VTI 18.33 cm SSM CV FUJ I PACS TR pk daniel 292.499 cm/s SSM CV FUJ I PACS Ascending aorta 2.999 cm SSM CV FUJI PACS AV PHT 0.618 s SSM CV FUJ I PACS AV pk daniel regurg 413.482 cm/s SSM CV FUJI PACS AR VTI 221.432 cm SSM CV FUJ I PACS ME VTI 77.979 cm SSM CV FUJ I PACS AR DECEL TIME 2.132 s SSM CV FUJI PACS RA area 20.245 cm SSM CV FUJI PACS RV-alvarado basal diam 3.721 cm SSM CV FUJI PACS RV-alvarado mid diam 3.694 cm SSM CV FUJI PACS TAPSE 2.15 cm SSM CV FUJ I PACS ME PEAK END DIASTOLIC VELOCITY 141.199 cm/s SSM CV FUJI PACS ME Decel Green 191.392 cm/s2 SSM C V FUJI PACS [...] Laterality Modality Ultrasound 04/08/2024 10:5 3 AM DIETITIAN THERAPEUTIC Narrative 04/09/2024 7:54 AM DIETITIAN THERAPEUTIC Summary * Findings consistent with sclerotic valves, mild MR and AR, at least moderate TR, trace ME, no valve stenosis, mild effects of HTN, [...] 10:53 AM Patient Status: O Study Site: [facility] Primary Location: [facility] Info Exam Type: ECHO COMPLETE Indications I10 - Essential hypertension Procedure(s) * A complete 2D, color Doppler, spectral Doppler, and M-Mode transthoracic echocardiogram was performed. Staff Referring Physician: Bharathi Higuera Ordering Provider: Bharathi Higuera Tape Machine Tailer: Bessy Shelton Left Ventricle The left ventricle [...] Accel Time 121.11 ms PV Regurgitation Doppler ME End Diastolic Velocity 1.4 m/s ME End Diastolic Gradient 8 mmHg ME Vena Contracta 0.83 mm Mitral Valve Name [...] Artery Doppler PA End Diastolic Pressure for ME 16 mmHg Aorta Name Value Normal Ascending [...] and AR, at least moderate TR, trace ME, no valve stenosis, mild effects of HTN, [...] 10:53 AM Patient Status: O Study Site: [facility] Primary Location: [facility] EStudy Info Exam Type: ECHO COMPLETE Indications I10 - Essential hypertension Procedure(s) * A complete 2D, color Doppler, spectral Doppler, and M-Modetransthoracic echocardiogram was performed. Staff Referring Physician: Bharathi Higuera Ordering Provider: Bharathi Higuera Tape Machine Tailer: Bessy Shelton Left Ventricle The left ventricle [...] Accel Time 121.11 ms PV Regurgitation Doppler ME End Diastolic Velocity 1.4 m/s ME End Diastolic Gradient 8 mmHg ME Vena Contracta 0.83 mm Mitral Valve Name [...] Artery Doppler PA End Diastolic Pressure for ME 16 mmHg Aorta Name Value Normal Ascending [...] CUPID * BONE DENSITY AXIAL SKELETON(1OR MORE SITES)[id number] (06/17/2022 1:22 PM DIETITIAN THERAPEUTIC) Anatomical Region Laterality Modality Other 06/20/2022 5:28 PM DIETITIAN THERAPEUTIC Narrative 06/20/2022 5:29 PM DIETITIAN THERAPEUTIC PROCEDURE: DEXA BONE DENSITY AXIAL SKELETON, DATE/TIME OF EXAM: 06/17/2022 1:23 PM, LOCATION [facility] 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 [...] SKELETON, DATE/TIME OF EXAM:06/17/2022 1:23 PM, LOCATION [facility] 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 [...] Yun DO on 06/20/2022 5:29 PM Kristen AGUILAR DEXA ORDERABLES from Last 3 Months or Most Recently Relevant to Health Maintenance Advance Directives * Full Code (Latest Code Status on File) Date Activated Date Inactivated Comments 07/03/2021 6:20 PM 07/04/2021 5:26 PM Care Teams Welfare Interviewer Relationship Specialty Start Date End Date Kristen Graf APRN-CNP [address] [phone] PCP - General 05/24/21
--- OUTSIDE RECORDS SUMMARY | 2024-06-26 12:17 | XMS_ITS | Encounter Summary ---
Author Organization [facility] Health Address [address] [facility] [place] [address] Care Team Providers Care Edge Cutting Machine Operator Name Role Phone Kristen Graf APRNCLINICAL REVIEW NURSE Primary Care Provider Tracie Pritchett MD Primary Care Provider [phone] [facility] Primary Care Provider Encounter Details Date Type Department Care Team (Late st Contact Info) Description 10/30/2020 Telephone [facility] [address] [place] [address] Ubaldo Salgado MD [address] [place] [address] Social History Tobacco Use Types Packs/Day Years Used Date Smoking Tobacco: Never Smokeless Tobacco: Never Alcohol Use Standard Drinks/Week Comments Never 0 (1 standard drink = 0.6 oz pur e alcohol) AUDIT-C Answer Date Recorded Q1: How often do you have a drink containing alc ohol? Never 03/06/2020 Average Number of Drinks Not on file 020 Frequency of Binge Drinking Not on file 02/13 Sex and Gender Information Value Date Recorded Sex Assigned at Not on file Gender Identity Not on file Sexual Orientation Not on file documented as of this encounter Patient Instructions * Patient Instructions* Zoë Chang - 10/30/2020 3:53 PM CDT Patient called and is asking what happens during her visit with ? She wants to know if she will be having a 6 minute test? Please call her and explain. Thank you Gayla documented in this encounter Plan of Treatment Upcoming Encounters Date Type Department Care Team (Late st Contact Info) Description 07/19/2024 9:30 AM SENIOR PAYROLL ADMINISTRATOR Office Visit [facility] - Pulmonology [address] [place] [address], [place] [address] Jack Milian MD [address] [place] [address] DIV OF PULM/[place] [address] 08/02/2024 9:30 AM CDT Office Visit [facility] - Geriatrics [address] [place] [address], [place] [phone] Kristen Graf, PALLET ASSEMBLER-CLINICAL REVIEW NURSE [facility] [phone] 08/20/2024 1:10 AM CDT Clinical Support [facility] - Cardiology [address] [facility], [address] [phone] 10/10/2024 10:20 AM CDT Office Visit [facility] - Cardiology [address] [facility], [address] [phone] Bharathi Higuera MD [address] [facility], [address] [address] 11/19/2024 1:10 AM CDT Clinical Support [facility] - Cardiology [facility] [facility], [address] [phone] documented as of this encounter Visit Diagnoses Not on filedocumented in this encounter Care Teams Edge Cutting Machine Operator Relationship Specialty Start Date End Date Kristen Graf APRN-CLINICAL REVIEW NURSE PCP - General 04/27/20 05/19/21 Tracie Pritchett MD [address] [address] PCP - General Internal Medicine Geriatric Medicine 05/20/21 05/23/21 Kristen Graf, JAYME-CLINICAL REVIEW NURSE [address] [address] PCP - General 05/24/21 documented as of this encounter
--- OUTSIDE RECORDS SUMMARY | 2024-06-26 12:17 | XMS_ITS | Clinical Summary ---
Author Organization [facility] Address [address] [facility] [place] [address] Phone Care Team Providers Care Maintenance Mechanic Technician Name Role Phone Minh Thornton MD Primary Care Provider [phone] Allergies No known active allergies Medications CALCIUM CARBONATE (CALCIUM 500 ORAL) Take by mouth. Activ e MULTIVITAMINS WITH FLUORIDE (MULTI-VITAMIN ORAL) Take by mouth. Activ e clobetasol (TEMOVATE) 0.05 % Lotion Apply to affected area. Active XIIDRA 5 % Dropperette 8 Active XARELTO 20 mg Tablet 8 Active vit C/E/Zn/helicopter utility aircrewman/lut/z ea/bio/saf (RETAINE VISION ORAL) Take by mouth. Activ e triamcinolone acetonide (KENALOG) 0.1 % Ointment Apply to affected area 2 times daily. Active carvediloL (COREG) 6.25 mg tablet TAKE 1 TABLET BY MOUTH EVERY MORNING AND 2 TABLETS EVERY EVENING WITH MEAL 0 Active losartan (COZAAR) 50 mg tablet TAKE 1 TABLET BY MOUTH EVERY DAY 0 Active amiodarone (CORDARONE) 200 mg tablet Take 200 mg by mouth daily. Active albuterol HFA 90 mcg inhaler Take 2 Puffs by inhalation every 6 hours as needed for Shortness of Breath. Active OTHER Continuous as needed. Occusoft Retaine Eye drops Active acetaminophen (TYLENOL) 500 mg tablet Take 500 mg by mouth every 4 hours as needed. Active busPIRone (BUSPAR) 10 mg tablet TAKE 2 (TWO) TABLETS BY MOUTH 3 TIMES DAILY REASONS: ANXIETY DISORDER 2 Active carboxymethylcel lulose sodium (REFRESH) 0.5 % solution 1 Drop by Ophthalmic route. Active cholecalciferol, Vitamin D3, (VITAMIN D3) 25 mcg (1,000 unit) Capsule Take 1,000 Units by mouth daily. Active docusate sodium (COLACE) 100 mg capsule 1 Active famotidine (PEPCID) 20 mg tablet Take 20 mg by mouth every 12 hours. 2 Active flecainide (TAMBOCOR) 150 mg Tablet TAKE 1 (ONE) TABLET BY MOUTH 2 TIMES DAILY 2 Active guaiFENesin (MUCINEX) 600 mg Extended Release Biphasic tablet Take 500 mg by mouth 1 time daily as needed. Active hydrALAZINE (APRESOLINE) 50 mg tablet Take 50mg in the morning, 100mg in the afternoon, and 50mg in the evening. Take an extra 50mg as needed. 2 Active LORazepam (ATIVAN) 0.5 mg tablet Take 0.5 mg by mouth every 8 hours as needed. Active nitroglycerin (NITROSTAT) 0.4 mg Tablet, Sublingual Place 0.4 mg under tongue. 0 Active polyethylene glycol 3350 (MIRALAX) 17 gram/dose Powder 1 capful dissolved in 4-8 oz water or juice daily 0 Active Active Problems No known active problems Encounters Date Type Department Care Team Description 06/06/2024 External Device Data [facility] ABSTRACTION Provider, Abstract 06/04/2024 External Device Data [facility] ABSTRACTION Provider, Abstract 05/28/2024 External Device Data [facility] ABSTRACTION Provider, Abstract from Last 3 Months Family History Medical History Relation Name Comments Hypertension Daughter 1 Psoriasis Daughter 1 Hypertension Daughter 2 Other Daughter 2 obesity Aneurysm Father Asthma Maternal Grandfather Colon Cancer Maternal Grandmother COPD Mother Heart Disease Mother Kidney Disease Mother Stroke Paternal Grandfather Lung Cancer Paternal Grandmother Breast Cancer Neg Hx Ovarian Cancer Neg Hx Relation Name Status Comments Daughter 1 Alive Daughter 2 Alive Father Maternal Grandfather Maternal Grandmother Mother Paternal Grandfather Paternal Grandmother Social History Tobacco Use Types Packs/Day Years Used Date Smoking Tobacco: Never Smokeless Tobacco: Never Tobacco Cessation:Counseling Given: Not Answered Alcohol Use Standard Drinks/Week Comments No 0 (1 standard drink = 0.6 oz pur e alcohol) Comments No Sex and Gender Information Value Date Recorded Sex Assigned at Not on file Legal Sex Female 3:34 AM SUPERVISOR METAL FABRICATING Gender Identity Not on file Sexual Orientation Not on file Occupation Industry Job Start Date Job End Date Not on file Not on file Not on file Not on file Last Filed Vital Signs Vital Sign Reading Time Taken Comments Blood Pressure 122/78 03/19/2024 10:45 AM SUPERVISOR METAL FABRICATING Pulse - - Temperature - - Respiratory Rate - - Oxygen Saturation - - Inhaled Oxygen Concentration - - Weight 73 kg (161 lb) 03/19/2024 10:45 AM SUPERVISOR METAL FABRICATING Height 167.6 cm (5' 6 ) 03/19/2024 10:45 AM SUPERVISOR METAL FABRICATING Body Mass Index 25.99 03/19/2024 10:45 AM SUPERVISOR METAL FABRICATING Plan of Treatment Health Maintenance Due Date Last Done Comments DTAP/TDAP/TD VACCINES (1 - Tdap) 08/30/1959 ZOSTER VACCINE (1 of 2) 1990 RSV VACCINE (60+ or ) (1 - 1-dose 75+ series) 08/30/2015 INFLUENZA VACCINE (#1) 2023 1, 02/06/2020, 02/27/2018 OSTEOPOROSIS SCREENING 06/17/2024 3, 06/17/2022, 10/22/2012, Additional history exists BREAST CANCER SCREENING 03/14/2025 03/14/20 24, 01/24/2020, 12/27/2018, Additional history exists PNEUMOCOCCAL VACCINE 65+ YEARS Completed 01/06/2023 , 02/13/2020 Procedures Procedure Name Priority Date/Time Associated Diagnosis Comments MAMMO 3D MAYUR SCREEN BILAT W OR WO CAD Routine 03/14/2024 Breast cancer screening by mammogram Breast density XR DEXA BONE DENSITY AXIAL 1 OR MORE SITES Routine 10/22/2012 Other ovarian failure from Last 3 Months or Most Recently Relevant to Health Maintenance Results * MAMMO SCRN BILAT 3D MAYUR W OR WO CAD (03/14/2024) Anatomical Region Laterality Modality Breast Bilateral Other us Vero Rodriguez DO MAMMO ORDERABLES Final Result * XR DEXA BONE DENSITY AXIAL 1 OR MORE SITES (10/22/2012) T-SCORE [facility] (LEFT) [facility] T-SCORE FEM[facility] (RIGHT) [facility] T-SCORE FEMUR 1.6 >=-0.99 [facility] T-SCORE SPINE 0.8 >=-0.99 [facility] T-SCORE HIP (LEFT) [facility] T-SCORE HIP (RIGHT) [facility] T-SCORE HIP >=-0.99 [facility] Anatomical Region Laterality Modality Other Ajay Devries MD DIAGNOSTIC IMAGING ORDERAB LES Final Result from Last 3 Months or Most Recently Relevant to Health Maintenance Insurance MEDICARE PART A AND B [employer] PPO Care Teams Maintenance Mechanic Technician Relationship Specialty Start Date End Date Minh Thornton MD PCP - General Internal Medicine 01/01/15
--- OUTSIDE RECORDS SUMMARY | 2024-06-26 12:17 | XMS_ITS | Encounter Summary ---
Author Organization [facility] Health Address [address] [facility] [place] [address] Care Team Providers Care Cinnamon Grinder Name Role Phone Minh Thornton MD Primary Care Provider [phone] [facility] Primary Care Provider Tracie Pritchett MD Primary Care Provider [phone] Kristen Graf APRN-PRODUCT FINISHER Primary Care Provider Encounter Details Date Type Department Care Team (Late st Contact Info) Description 03/10/2020 Telephone [facility] [address] [place] [address] Kristen Graf FABRIC AND ACCESSORIES ESTIMATOR-PRODUCT FINISHER [address] [phone] Social History Tobacco Use Types Packs/Day Years [...] on file Sexual Orientation Not on file COVID-19 Exposure Response Date Recorded In the last month, have you been in contact with someone who was confirmed or suspected to have Coronavirus / COVID-19? No / Unsure 03/12/2020 2:46 PM CDT documented as of this encounter Miscellaneous Notes * Telephone Encounter - Merle Gabriella - 03/10/2020 1:40 PM CDT Current Provider name: Dr. Kristen Graf Reason for call: Ms. Beth Aaron called to FU your call to her on Mon03/06/2020. She has a few other questions after the call. She really appreciated your call. No alvares, return her call at your convenience. Patient Call Back number: [phone] documented in this encounter Plan of Treatment Upcoming Encounters Date Type Department Care Team (Late st Contact Info) Description 07/19/2024 9:30 AM WOOD CRAFTER Office Visit [facility] - Pulmonology [address] [place] [address], [place] [address] Jack Milian MD [address] [place] [address] 2[address] DIV OF PULM/[place] [address] 08/02/2024 9:30 AM CDT Office Visit [facility] - Geriatrics [address] [place] [address], [place] [address] Kristen Graf, FABRIC AND ACCESSORIES ESTIMATOR-PRODUCT FINISHER [address] [facility] [address] [place] [address] 08/20/2024 1:10 AM CDT Clinical Support [facility] - Cardiology [address] [facility], [facility] [address] [place] [address] 10/10/2024 10:20 AM CDT Office Visit [facility] - Cardiology [address] [facility], [facility] [address] [place] [address] Bharathi Higuera MD [address], [facility] [address] [place] [address] 11/19/2024 1:10 AM CDT Clinical Support [facility] - Cardiology [address] [facility] [place] [address] [place] [phone] documented as of this encounter Visit Diagnoses Not on filedocumented in this encounter Care Teams Cinnamon Grinder Relationship Specialty Start Date End Date Minh Thornton MD [address] [place] [id number] PCP - General 03/02/20 04/26/20 Kristen Graf, FABRIC AND ACCESSORIES ESTIMATOR-PRODUCT FINISHER [address] [place] [id number] PCP - General 04/27/20 05/19/21 Tracie Pritchett MD [address] [facility] [address] [place] [address] PCP - General Internal Medicine Geriatric Medicine 05/20/21 05/23/21 Kristen Graf, FABRIC AND ACCESSORIES ESTIMATOR-PRODUCT FINISHER [address] [address] PCP - General 05/24/21 documented as of this encounter
--- OUTSIDE RECORDS SUMMARY | 2024-06-26 12:17 | XMS_ITS | Patient Health Summary ---
Author Organization [facility] Respi Address [address] 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 This disclosure is being madepursuant to the Care Everywhere program and may not contain all information available regarding this patient. Last updated 18.[facility] Allergies No known active allergies Medications * Be aware that medications may not be up to date on this document. Alwaysverify current medications with the patient. * vitamin D3 (CHOLECALCIFEROL) (25 MCG) 1000 UNIT capsule Take 1 (one) capsule by mouth once daily * acetaminophen (TYLENOL) 500 MG tablet Take 1 (one) tablet to 2 (two) tablets by mouth every 6 hours as needed for Fever, Pain or HeadacheMaximum allowable Acetaminophen amount = 4 Grams (4000 mg) / 24 hours. * pimecrolimus (Elidel) 1 % cream(Started 02/09/2023) Apply to affected areas on face twice a day as needed for itch/irritation. 30 days supply. 2 refills by 02/09/2024 * ketoconazole (Nizoral) 2 % cream(Started 02/09/2023) Apply to affected area on the feet twice daily. 30 days supply. 4 refills by 02/09/2024 * triamcinolone acetonide (Kenalog) 0.1 % ointment(Started 02/09/2023) Apply to affected on the lower extremities twice daily. 30 days supply. 4 refills by 02/09/2024 * rivaroxaban (Xarelto) 15 MG tablet(Started 03/23/2023) Take 1 (one) tablet by mouth daily with food 3 refills by 03/22/2024 * hydrALAZINE (Apresoline) 50 MG tablet(Started 05/05/2023) Take 1 (one) tablet by mouth once daily as needed 3 refills by 05/04/2024 * diclofenac sodium (Voltaren) 1 % gel(Started 09/15/2023) Apply 4 (four) g to affected area 4 times daily 11 refills by 09/14/2024 * losartan (Cozaar) 25 MG tablet(Started 09/21/2023) Take 1 (one) tablet by mouth once daily 3 refills by 09/20/2024 * cycloSPORINE (Restasis) 0.05 % ophthalmic suspension Instill 1 (one) drop into both eyes 2 times daily * ipratropium (Atrovent) 0.03 % nasal spray(Started 12/06/2023) [place] 2 sprays into each nostril 2 times daily * mupirocin (Bactroban) 2 % ointment(Started 11/08/2023) Apply to affected area 2 times daily * psyllium (Metamucil) 58.6 % powder Take 1 (one) packet by mouth 2 times daily * busPIRone (Buspar) 10 MG tablet(Started 01/19/2024) Take 2 (two) tablets by mouth 3 times daily Reasons: Anxiety Disorder 11 refills by 01/18/2025 * famotidine (Pepcid) 20 MG tablet(Started 01/19/2024) Take 1 (one) tablet by mouth every 12 hours 3 refills by 01/18/2025 * carvedilol (Coreg) 12.5 MG tablet(Started 03/28/2024) Take 1 (one) tablet by mouth 2 times daily with morning and evening meal 3 refills by 03/28/2025 * flecainide (Tambocor) 150 MG tablet(Started 03/28/2024) Take 1 (one) tablet by mouth 2 times daily 3 refills by 03/28/2025 * albuterol HFA (ProAir HFA) 108 (90 Base) MCG/ACT inhaler(Started 04/22/2024) Inhale 2 (two) puffs by mouth every 4 hours as needed for Shortness of Breath, Wheezing or Cough 11 refills by 04/22/2025 * Spacer/Aero-Holding Chambers (AeroChamber)(Started 04/22/2024) Inhale by mouth as directed Active Problems Problem Noted Date Diagnosed Date Stage 3a chronic kidney disease 09/15/2023 Onychomycosis 08/11/2022 Solar lentiginosis 08/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 Seborrheic keratosis 08/11/2022 Seborrheic keratosis, inflamed 08/11/2022 Multiple benign melanocytic nevi of upper and lower extremities and trunk 08/11/2022 Bilateral primary osteoarthritis of knee 022 Generalized anxiety disorder 09/02/2021 Palpitations 07/03/2021 Shortness of breath 07/03/2021 Chest pain 07/03/2021 Seasonal allergies 12/07/2020 Essential hypertension 12/07/2020 Thyroid nodule 07/22/2020 Typical atrial flutter 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, nontoxic, multinodular Immunizations * Covid Blend Labs primary monovalent 12+ yr 0.3mL Purple cap(Given 02/24/2021, 07/18/2020, 06/21/2020) * INFLUENZA VACCINE(Given 02/24/2022, 02/13/2021) * INFLUENZA VACCINE, HIGH-DOSE, QUADR. (FLUZONE HIGH-DOSE QUADRIVALENT; 65Y+), 0.7 ML (HD-IIV4)(Given 02/13/2021, 02/06/2020, 02/27/2018) * PNEUMOCOCCAL PCV20 CONJ VAC IM(Given 01/06/2023) * PNEUMOCOCCAL PPSV23(Given 02/13/2020) Social History Tobacco Use Types Packs/Day Years [...] Comments Blood Pressure 168/72 03/28/2024 1:41 PM MATERIAL FLOW ANALYST Pulse 64 03/28/2024 1:41 PM MATERIAL FLOW ANALYST Temperature 36.7 C (98.1 F) 03/28/2024 1:41 PM MATERIAL FLOW ANALYST Respiratory Rate 16 03/28/2024 1:41 PM MATERIAL FLOW ANALYST Oxygen Saturation 99% 03/28/2024 1:41 PM MATERIAL FLOW ANALYST Inhaled Oxygen Concentration - - Weight 75.3 kg (166 lb) 03/28/2024 1:41 PM MATERIAL FLOW ANALYST Height 167.6 cm (5' 6 ) 03/28/2024 1:41 PM MATERIAL FLOW ANALYST Body Mass Index 26.79 03/28/2024 1:41 PM MATERIAL FLOW ANALYST Medical Devices Implanted Type Area Core Paster Device Identifier Shelf Expiration Date Model / Serial / Lot Lead Cp Nv Pace 52cm Strd Elut Pltn Amada - [id number] Implanted:Qty: 1 on 08/16/2021 by Bharathi Higuera MD at [facility] Right: Ventricle [employer] 04/13/2023 5076-52 / [id number] / Description:RV Lead Lead Cp Nv Pace 45cm Strd Elut Pltn Amada - [id number] Implanted:Qty: 1 on 08/16/2021 by Bharathi Higuera MD at [facility] Right: Atrium [employer] 05/06/2023 5076-45 / [id number] / Description:RA lead Pacemkr Archbold Wire[employer] Crd - [id number] Implanted:Qty: 1 on 08/16/2021 by Bharathi Higuera MD at [facility] Right: Chest [employer] 01/09/2023 [id number] / [id number] / Description:ICD Procedures * NM PM/ICD REMOTE TECH SERV(Performed 05/26/2024) Performed for SSS (sick sinus syndrome) (HCC) * NM PM DEVICE INTERROGATE REMOTE(Performed 05/26/2024) Performed for SSS (sick sinus syndrome) (HCC) * CARDIAC PROCEDURE ORDER(Performed 05/20/2024) * ECHO COMPLETE(Performed 04/08/2024) Performed for Essential hypertension * NM PM/ICD REMOTE TECH SERV(Performed 02/24/2024) Performed for SSS (sick sinus syndrome) (HCC) * NM PM DEVICE INTERROGATE REMOTE(Performed 02/24/2024) Performed for SSS (sick sinus syndrome) (HCC) * TSH REFLEX FREE T4(Performed 02/19/2024) Performed for Essential hypertension, Hyperkalemia * VITAMIN B12(Performed 02/19/2024) Performed for Essential hypertension, Primary hypertension * COMPREHENSIVE METABOLIC PANEL(Performed 02/19/2024) Performed for Essential hypertension * CBC W AUTO DIFFERENTIAL(Performed 02/19/2024) Performed for Essential hypertension * CARDIAC PROCEDURE ORDER(Performed 02/07/2024) * TSH REFLEX FREE T4(Performed 01/19/2024) Performed for Primary hypertension * COMPREHENSIVE METABOLIC PANEL(Performed 01/19/2024) Performed for Hyperkalemia, Primary hypertension * CBC W AUTO DIFFERENTIAL(Performed 01/19/2024) Performed for Primary hypertension * CT CHEST WO CONTRAST(Performed 01/11/2024) Performed for Abnormal CT of the chest * COMPLETE PFT W/WO BRONCHODILATOR(Performed 12/07/2023) Performed for Abnormal CT of the chest * PFT OXYGEN DESATURATION STUDY(Performed 12/07/2023) Performed for Abnormal CT of the chest * SIX MINUTE WALK(Performed 12/07/2023) Performed for Abnormal CT of the chest * CT CHEST WO CONTRAST(Performed 10/11/2023) Performed for Pulmonary nodules * VITAMIN B12(Performed 09/15/2023) Performed for Anemia, unspecified type * COMPREHENSIVE METABOLIC PANEL(Performed 09/15/2023) Performed for Stage 3a chronic kidney disease (HCC) * CBC W AUTO DIFFERENTIAL(Performed 09/15/2023) Performed for Stage 3a chronic kidney disease (HCC) * NM DRAIN/INJECT LARGE JOINT/BURSA(Performed 07/20/2023) Performed for Bilateral primary osteoarthritis of knee * NM DRAIN/INJECT LARGE JOINT/BURSA(Performed 07/20/2023) Performed for Bilateral primary osteoarthritis of knee * LIPID PROFILE(Performed 06/12/2023) Performed for Screening cholesterol level * COMPREHENSIVE METABOLIC PANEL(Performed 06/12/2023) Performed for Primary hypertension * CBC W AUTO DIFFERENTIAL(Performed 06/12/2023) Performed for Primary hypertension * US ABDOMEN COMPLETE(Performed 06/12/2023) Performed for Abdominal pain, RLQ (right lower quadrant) * CARDIAC PROCEDURE ORDER(Performed 03/31/2023) * NM PM DEVICE EVAL IN PERSON(Performed 03/23/2023) Performed for Typical atrial flutter (HCC), Hypertension, unspecified type * TSH REFLEX FREE T4(Performed 01/06/2023) Performed for Thyroid nodule, Primary hypertension * COMPREHENSIVE METABOLIC PANEL(Performed 01/06/2023) Performed for Thyroid nodule, Primary hypertension * CBC W AUTO DIFFERENTIAL(Performed 01/06/2023) Performed for Thyroid nodule, Primary hypertension * NM DRAIN/INJECT LARGE JOINT/BURSA(Performed 11/08/2022) Performed for Bilateral primary osteoarthritis of knee * NM DRAIN/INJECT LARGE JOINT/BURSA(Performed 11/08/2022) Performed for Bilateral primary osteoarthritis of knee * XR PELVIS W LEFT HIP 2VW(Performed 11/08/2022) Performed for Pain of left hip * CARDIAC PROCEDURE ORDER(Performed 10/25/2022) * NM PM DEVICE EVAL IN PERSON(Performed 09/23/2022) Performed for SSS (sick sinus syndrome) (HCC) * NM DESTRUCT BENIGN LESION, 1-14(Performed 08/11/2022) Performed for Seborrheic keratosis, inflamed * BASIC METABOLIC PANEL (CALCIUM TOTAL)(Performed 07/01/2022) Performed for Essential hypertension * CARDIAC PROCEDURE ORDER(Performed 06/29/2022) * NM PM DEVICE EVAL IN PERSON(Performed 06/23/2022) Performed for Typical atrial flutter (HCC) * CT ABDOMEN PELVIS W CONTRAST(Performed 06/17/2022) Performed for Abdominal pain, RLQ (right lower quadrant) * DEXA BONE DENSITY AXIAL SKELETON(Performed 06/17/2022) Performed for Primary osteoarthritis involving multiple joints, Osteoporosis, unspecified osteoporosis type, unspecified pathological fracture presence * VITAMIN B12(Performed 06/03/2022) Performed for Anemia, unspecified type, Gastroesophageal reflux disease, unspecified whether esophagitis present * COMPREHENSIVE METABOLIC PANEL(Performed 06/03/2022) Performed for Abdominal pain, RLQ (right lower quadrant) * CBC W AUTO DIFFERENTIAL(Performed 06/03/2022) Performed for Abdominal pain, RLQ (right lower quadrant) * BASIC METABOLIC PANEL (CALCIUM TOTAL)(Performed 04/11/2022) Performed for Typical atrial flutter (HCC) * BASIC METABOLIC PANEL (CALCIUM TOTAL)(Performed 04/01/2022) Performed for Hypertension, unspecified type, Palpitations, SSS (sick sinus syndrome) (HCC) * CARDIAC PROCEDURE ORDER(Performed 03/29/2022) * NM PM DEVICE EVAL IN PERSON(Performed 03/24/2022) Performed for Hypertension, unspecified type, Palpitations, SSS (sick sinus syndrome) (HCC) * NM DESTRUCT BENIGN LESION, 1-14(Performed 03/15/2022) Performed for Seborrheic keratosis, inflamed * NM DRAIN/INJECT LARGE JOINT/BURSA(Performed 02/15/2022) Performed for Bilateral primary osteoarthritis of knee * NM DRAIN/INJECT LARGE JOINT/BURSA(Performed 02/15/2022) Performed for Bilateral primary osteoarthritis of knee * XR FOOT RIGHT 3VW OR MORE(Performed 02/14/2022) Performed for Right foot pain * TSH REFLEX FREE T4(Performed 02/04/2022) Performed for Thyroid nodule, Goiter, nontoxic, multinodular, Multiple thyroid nodules * NM US SOFT TISS HEAD&NCK R-T IMG(Performed 02/04/2022) Performed for Thyroid nodule, Goiter, nontoxic, multinodular, Multiple thyroid nodules * CBC W AUTO DIFFERENTIAL(Performed 02/03/2022) Performed for Essential hypertension * BASIC METABOLIC PANEL (CALCIUM TOTAL)(Performed 02/03/2022) Performed for Essential hypertension * NM BIOPSY, NAIL UNIT(Performed 01/25/2022) Performed for Nail dystrophy * FUNGUS REGINA - POINT OF CARE (AMB) [facility]U(Performed 01/25/2022) Performed for Tinea pedis of right foot * NM DESTRUCT BENIGN LESION, 1-14(Performed 01/25/2022) Performed for Seborrheic keratosis, inflamed * CULTURE FUNGUS SKIN HAIR NAIL+FUNGUS SMEAR(Performed 01/25/2022) * DERMATOPATHOLOGY(Performed 01/25/2022) Performed for Nail dystrophy * COMPREHENSIVE METABOLIC PANEL(Performed 01/20/2022) Performed for COVID-19 * CBC W AUTO DIFFERENTIAL(Performed 01/20/2022) Performed for COVID-19 * CARDIAC PROCEDURE ORDER(Performed 10/25/2021) * NM DRAIN/INJECT LARGE JOINT/BURSA(Performed 10/22/2021) Performed for Pain in both lower extremities, Bilateral primary osteoarthritis of knee, Effusion ofright knee * NM DRAIN/INJECT LARGE JOINT/BURSA(Performed 10/22/2021) Performed for Pain in both lower extremities, Bilateral primary osteoarthritis of knee, Effusion ofright knee * PATHOLOGY SMEAR BODY FLUID(Performed 10/22/2021) Performed for Pain in both lower extremities, Bilateral primary osteoarthritis of knee, Effusion ofright knee * CRYSTAL INDENTIFICATION SYNOVIAL FLUID(Performed 10/22/2021) Performed for Pain in both lower extremities, Bilateral primary osteoarthritis of knee, Effusion ofright knee * DIFFERENTIAL MANUAL FLUID(Performed 10/22/2021) Performed for Pain in both lower extremities, Bilateral primary osteoarthritis of knee, Effusion ofright knee * CELL COUNT W DIFF W CRYSTALS SYNOVIAL(Performed 10/22/2021) Performed for Pain in both lower extremities, Bilateral primary osteoarthritis of knee, Effusion ofright knee * CULTURE FLUID+GRAM STAIN(Performed 10/22/2021) Performed for Pain in both lower extremities, Bilateral primary osteoarthritis of knee, Effusion ofright knee * XR PELVIS W RIGHT HIP 2VW(Performed 10/22/2021) Performed for Pain in both lower extremities * XR FOOT RIGHT 3VW OR MORE(Performed 10/22/2021) Performed for Pain in both lower extremities * XR KNEE RIGHT 4VW OR MORE(Performed 10/22/2021) Performed for Pain in both lower extremities * XR KNEE LEFT 4VW OR MORE(Performed 10/22/2021) Performed for Pain in both lower extremities * CARDIAC PROCEDURE ORDER(Performed 09/29/2021) * LAB RESULTS ORDER(Performed 08/31/2021) * EP INSERT SC OR DC PACER ICD PG(Performed 08/16/2021) Performed for SSS (sick sinus syndrome) (HCC), Bradycardia * NM DESTRUCT BENIGN LESION, 1-14(Performed 08/05/2021) Performed for Seborrheic keratosis, inflamed * CBC W AUTO DIFFERENTIAL(Performed 08/02/2021) Performed for Bradycardia * BASIC METABOLIC PANEL (CALCIUM TOTAL)(Performed 08/02/2021) Performed for Bradycardia * PT-INR SLH(Performed 08/02/2021) Performed for Bradycardia * HEAVY METALS URINE RANDOM PANEL(Performed 07/29/2021) Performed for Neuropathy * CARDIAC EKG ORDER(Performed 07/07/2021) * CARDIAC EKG ORDER(Performed 07/07/2021) * CARDIAC EKG ORDER(Performed 07/07/2021) * CARDIAC EKG ORDER(Performed 07/07/2021) * CT HEAD WO CONTRAST(Performed 07/04/2021) Performed for Chest pain, unspecified type, Palpitations * EKG 12-LEAD(Performed 07/04/2021) Performed for Chest pain, unspecified type * TROPONIN I(Performed 07/04/2021) Performed for Chest pain, unspecified type, Palpitations, Shortness of breath * MAGNESIUM BLOOD(Performed 07/04/2021) * PHOSPHORUS BLOOD(Performed 07/04/2021) * PT-INR [facility](Performed 07/04/2021) * COMPREHENSIVE METABOLIC PANEL(Performed 07/04/2021) * CBC W AUTO DIFFERENTIAL(Performed 07/04/2021) * TROPONIN I(Performed 07/03/2021) * TROPONIN I(Performed 07/03/2021) * PT-INR SLH(Performed 07/03/2021) * MAGNESIUM BLOOD(Performed 07/03/2021) * COMPREHENSIVE METABOLIC PANEL(Performed 07/03/2021) * CBC W AUTO DIFFERENTIAL(Performed 07/03/2021) * TROPONIN I(Performed 07/03/2021) * EKG 12-LEAD(Performed 07/03/2021) Performed for Chest pain, unspecified type * BASIC METABOLIC PANEL (CALCIUM TOTAL)(Performed 06/25/2021) Performed for Hyponatremia * BASIC METABOLIC PANEL (CALCIUM TOTAL)(Performed 05/20/2021) Performed for Essential hypertension, Hyponatremia * 24 HOUR BLOOD PRESSURE MONITORING(Performed 04/16/2021) Performed for Essential hypertension, Labile hypertension, Microscopic hematuria * US KIDNEY WITH DOPPLER(Performed 04/14/2021) Performed for Essential hypertension, Labile hypertension, Microscopic hematuria * MICROALB/CREAT RATIO URINE RANDOM PANEL(Performed 04/14/2021) Performed for Essential hypertension, Labile hypertension, Microscopic hematuria * URINALYSIS W/MICROSCOPIC REFLEX TO CULTURE(Performed 04/14/2021) Performed for Essential hypertension, Labile hypertension, Microscopic hematuria * RENAL FUNCTION PANEL(Performed 04/14/2021) Performed for Essential hypertension, Labile hypertension, Microscopic hematuria * CBC W AUTO DIFFERENTIAL(Performed 04/14/2021) Performed for Essential hypertension, Labile hypertension, Microscopic hematuria * CULTURE URINE(Performed 04/14/2021) Performed for Essential hypertension, Labile hypertension, Microscopic hematuria * PROC EKG IN CLINIC(Performed 02/11/2021) Performed for Essential hypertension * ALDOSTERONE BLOOD(Performed 02/01/2021) Performed for Thyroid nodule, Goiter, nontoxic, multinodular, Multiple thyroid nodules, Hypertension, unspecified type, Hyponatremia * RENIN ACTIVITY(Performed 02/01/2021) Performed for Thyroid nodule, Goiter, nontoxic, multinodular, Multiple thyroid nodules, Hypertension, unspecified type, Hyponatremia * CORTISOL BLOOD AM(Performed 02/01/2021) Performed for Thyroid nodule, Goiter, nontoxic, multinodular, Multiple thyroid nodules, Hypertension, unspecified type, Hyponatremia * ACTH(Performed 02/01/2021) Performed for Thyroid nodule, Goiter, nontoxic, multinodular, Multiple thyroid nodules, Hypertension, unspecified type, Hyponatremia * TSH(Performed 02/01/2021) Performed for Thyroid nodule, Goiter, nontoxic, multinodular, Multiple thyroid nodules, Hypertension, unspecified type, Hyponatremia * CREATININE URINE RANDOM(Performed 02/01/2021) Performed for Thyroid nodule, Goiter, nontoxic, multinodular, Multiple thyroid nodules, Hypertension, unspecified type, Hyponatremia * SODIUM URINE RANDOM(Performed 02/01/2021) Performed for Thyroid nodule, Goiter, nontoxic, multinodular, Multiple thyroid nodules, Hypertension, unspecified type, Hyponatremia * RENAL FUNCTION PANEL(Performed 02/01/2021) Performed for Thyroid nodule, Goiter, nontoxic, multinodular, Multiple thyroid nodules, Hypertension, unspecified type, Hyponatremia * NM US SOFT TISS HEAD&NCK R-T IMG(Performed 01/29/2021) Performed for Thyroid nodule, Goiter, nontoxic, multinodular, Multiple thyroid nodules * CARDIAC EKG ORDER(Performed 01/04/2021) * URINALYSIS W/MICROSCOPIC NO CULTURE(Performed 01/02/2021) * XR CHEST 2VW(Performed 01/02/2021) Performed for Palpitations * TSH REFLEX FREE T4(Performed 01/02/2021) * FOLATE(Performed 01/02/2021) * VITAMIN B12(Performed 01/02/2021) * TROPONIN I(Performed 01/02/2021) * HEPATIC FUNCTION PANEL(Performed 01/02/2021) * BASIC METABOLIC PANEL (CALCIUM TOTAL)(Performed 01/02/2021) * CBC W AUTO DIFFERENTIAL(Performed 01/02/2021) * EKG 12-LEAD(Performed 01/02/2021) Performed for Shortness of breath * EKG 12-LEAD(Performed 12/31/2020) Performed for Palpitations * ECHO COMPLETE(Performed 11/20/2020) Performed for Typical atrial flutter (HCC), Bradycardia * METANEPHRINES URINE FRACTIONATED(Performed 11/20/2020) * METANEPHRINES FRACTIONATED PLASMA(Performed 11/20/2020) * CARDIAC EKG ORDER(Performed 11/19/2020) * PROC EKG IN CLINIC(Performed 11/13/2020) Performed for Typical atrial flutter (HCC) * CARDIAC EKG ORDER(Performed 11/10/2020) * COMPREHENSIVE METABOLIC PANEL(Performed 11/05/2020) * CBC W AUTO DIFFERENTIAL(Performed 11/05/2020) * EKG 12-LEAD(Performed 11/05/2020) Performed for Hypertension, unspecified type * CARDIAC EKG ORDER(Performed 10/26/2020) * PROC EKG IN CLINIC(Performed 10/15/2020) Performed for Typical atrial flutter (HCC) * NM CYSTOURETHROSCOPY(Performed 09/08/2020) Performed for History of blood in urine * URINALYSIS AUTO - POINT OF CARE (AMB) [facility]U(Performed 09/08/2020) Performed for History of blood in urine * XR THORACIC SPINE 2VW(Performed 08/24/2020) Performed for Radiculopathy, unspecified spinal region * XR LUMBAR SPINE 2 OR 3VW(Performed 08/24/2020) Performed for Radiculopathy, unspecified spinal region * LISA URINE(Performed 08/14/2020) Performed for Neuropathy * LEAD URINE(Performed 08/11/2020) Performed for Neuropathy * MERCURY URINE(Performed 08/11/2020) Performed for Neuropathy * ARSENIC EXPOSURE PROFILE URINE(Performed 08/11/2020) Performed for Neuropathy * FOLATE(Performed 08/11/2020) Performed for Neuropathy * VITAMIN B12(Performed 08/11/2020) Performed for Neuropathy * SS-B (SJOGREN'S) ANTIBODY(Performed 08/11/2020) Performed for Neuropathy * SS-A (SJOGREN'S) 52+60 ANTIBODIES(Performed 08/11/2020) Performed for Neuropathy * MILLER (SM) ANTIBODY MONICA(Performed 08/11/2020) Performed for Neuropathy * DNA ANTIBODY DOUBLE STRANDED(Performed 08/11/2020) Performed for Neuropathy * LAB MISC TEST(Performed 08/11/2020) Performed for Neuropathy * GABE BLOOD SCREEN W/REFLEX TITER(Performed 08/11/2020) Performed for Neuropathy * METHYLMALONIC ACID BLOOD(Performed 08/11/2020) Performed for Neuropathy * VITAMIN E(Performed 08/11/2020) Performed for Neuropathy * KAPPA/LAMBDA LITE CHAIN FREE PANEL(Performed 08/11/2020) Performed for Neuropathy * IMMUNOFIXATION BLOOD(Performed 08/11/2020) Performed for Neuropathy * ERYTHROCYTE SEDIMENTATION RATE(Performed 08/11/2020) Performed for Neuropathy * ZINC BLOOD(Performed 08/11/2020) Performed for Neuropathy * COPPER BLOOD(Performed 08/11/2020) Performed for Neuropathy * CK BLOOD(Performed 08/11/2020) Performed for Neuropathy * ALDOLASE(Performed 08/11/2020) Performed for Neuropathy * T4 FREE DIRECT DIALYSIS(Performed 08/11/2020) Performed for Thyroid nodule, Goiter, nontoxic, multinodular * TSH(Performed 08/11/2020) Performed for Thyroid nodule, Goiter, nontoxic, multinodular * T4 FREE(Performed 08/11/2020) Performed for Thyroid nodule, Goiter, nontoxic, multinodular * URINALYSIS W/MICROSCOPIC NO CULTURE(Performed 07/28/2020) Performed for Microscopic hematuria * CULTURE URINE(Performed 07/28/2020) Performed for Microscopic hematuria * URINALYSIS AUTO - POINT OF CARE (AMB) [facility](Performed 07/28/2020) Performed for Gross hematuria * LAB RESULTS ORDER(Performed 07/24/2020) * TSH(Performed 07/23/2020) * T4 FREE(Performed 07/23/2020) * NM FNA BX W US GDN 1ST LES(Performed 07/23/2020) Performed for Thyroid nodule, Goiter, nontoxic, multinodular * NM US SOFT TISS HEAD&NCK R-T IMG(Performed 07/23/2020) Performed for Thyroid nodule, Goiter, nontoxic, multinodular * NM US GUIDED NEEDLE PLACEMENT(Performed 07/23/2020) Performed for Thyroid nodule, Goiter, nontoxic, multinodular * FINE NEEDLE ASPIRATION - THYROID (STL)(Performed 07/23/2020) Performed for Thyroid nodule, Goiter, nontoxic, multinodular * US THYROID(Performed 07/16/2020) Performed for Thyroid nodule * CARDIAC EKG ORDER(Performed 06/26/2020) * URINALYSIS W/MICROSCOPIC NO CULTURE(Performed 06/26/2020) Performed for Asymptomatic microscopic hematuria, Flank pain * CULTURE URINE(Performed 06/26/2020) Performed for Asymptomatic microscopic hematuria, Flank pain * PROC EKG IN CLINIC(Performed 06/18/2020) Performed for Essential hypertension * MRI THORACIC SPINE WO CONTRAST(Performed 05/25/2020) Performed for Back pain, unspecified back location, unspecified back pain laterality, unspecified chronicity, Radiculopathy, unspecified spinal region, Myelopathy (HCC) * MRI LUMBAR SPINE WO CONTRAST(Performed 05/25/2020) Performed for Back pain, unspecified back location, unspecified back pain laterality, unspecified chronicity, Radiculopathy, unspecified spinal region, Myelopathy (HCC) * MRI CERVICAL SPINE WO CONTRAST(Performed 05/25/2020) Performed for Back pain, unspecified back location, unspecified back pain laterality, unspecified chronicity, Radiculopathy, unspecified spinal region, Myelopathy (HCC) * XR SPINE ENTIRE 2 OR 3VW(Performed 05/20/2020) Performed for Back pain, unspecified back location, unspecified back pain laterality, unspecified chronicity * COMPLETE PFT W/WO BRONCHODILATOR(Performed 05/18/2020) Performed for Exercise intolerance, Shortness of breath * IMAGING/RADIOLOGY/XRAY RESULTS ORDER(Performed 05/12/2020) * CBC W/O DIFFERENTIAL(Performed 05/12/2020) * BASIC METABOLIC PANEL (CALCIUM TOTAL)(Performed 05/12/2020) * URINALYSIS W/MICROSCOPIC NO CULTURE(Performed 05/12/2020) Performed for Acute back pain, unspecified back location, unspecified back pain laterality, Nausea and vomiting, intractability of vomiting not specified, unspecified vomiting type * CULTURE URINE(Performed 05/12/2020) * BASIC METABOLIC PANEL (CALCIUM TOTAL)(Performed 04/27/2020) Performed for Electrolyte and fluid disorder, Medication dose changed * BASIC METABOLIC PANEL (CALCIUM TOTAL)(Performed 03/31/2020) * COMPREHENSIVE METABOLIC PANEL(Performed 03/31/2020) * CT HEAD WO CONTRAST(Performed 03/31/2020) Performed for Acute nonintractable headache, unspecified headache type, Nausea without vomiting * URINALYSIS W/MICROSCOPIC NO CULTURE(Performed 03/31/2020) * CBC W AUTO DIFFERENTIAL(Performed 03/31/2020) * PROC EKG IN CLINIC(Performed 03/12/2020) Performed for Typical atrial flutter (HCC) * VITAMIN B12(Performed 03/12/2020) Performed for Macrocytosis without anemia * CARDIAC EKG ORDER(Performed 03/06/2020) * TSH(Performed 03/06/2020) Performed for Typical atrial flutter (HCC), Chest pain, unspecified type, Atrial fibrillation, unspecified type (HCC) * CBC W/O DIFFERENTIAL(Performed 03/06/2020) Performed for Typical atrial flutter (HCC), Chest pain, unspecified type, Atrial fibrillation, unspecified type (HCC) * COMPREHENSIVE METABOLIC PANEL(Performed 03/06/2020) Performed for Typical atrial flutter (HCC), Chest pain, unspecified type, Atrial fibrillation, unspecified type (HCC) * XR CHEST 2VW(Performed 03/06/2020) Performed for Chest pain, unspecified type, Shortness of breath * PROC EKG IN CLINIC(Performed 03/06/2020) Performed for Chest pain, unspecified type Results * NM PM DEVICE INTERROGATE REMOTE, NM PM/ICD REMOTE TECH SERV (05/26/2024 4:54 PM MATERIAL FLOW ANALYST) Narrative Nanette Aldridge MD - 05/26/2024 4:54 PM MATERIAL FLOW ANALYST Nanette Aldridge MD 05/26/2024 4:57 PM Remote Interrogation: 05/20/2024 Pertinent Findings: Device function within normal limits. No events or therapy delivered. See below for details. Nanette Aldridge MD Cardiac Electrophysiology Nanette Aldridge MD PROCEDURE/MINOR SURG ICAL ORDERABLES * CARDIAC PROCEDURE ORDER (05/20/2024) Only the most recent of8 resultswithin the time period is included. Narrative 05/20/2024 Ordered by an unspecified provider. Scanned Document CARDIAC SERVICES ORD ERABLES * ECHO COMPLETE (04/08/2024 11:33 AM MATERIAL FLOW ANALYST) RVOT diam Doppler 2.584 cm SSM CV [...] SSM CV FU JI PACS LVOT pk nahun 99.346 cm/s SSM CV F UJI PACS LVOT VTI 22.146 cm SSM CV FUJ I PACS RVIDd 2.598 cm SSM CV FUJ I PACS RVOT pk nahun 60.223 cm/s SSM CV F UJI PACS RVOT VTI 14.441 cm SSM CV FUJ I PACS AV mn grad 3.949 mmHg SSM CV FU JI PACS AV pk nahun 142.885 cm/s SSM CV FUJ I PACS AV VTI 32.302 cm SSM CV FUJ I PACS MV A pk nahun 59.369 cm/s SSM CV F UJI PACS MV E pk nahun 101.87 cm/s SSM CV F UJI PACS LA vol index 0.038 l/m SSM CV FUJI PACS LA vol BP 71.89 ml SSM CV FUJ I PACS MV pk nahun regurg 550.944 cm/s SSM CV FUJI PACS MR VTI 208.159 cm SSM CV FUJ I PACS MV mn grad 1.29 mmHg SSM CV FU JI PACS MV VTI 23.992 cm SSM CV FUJ I PACS PV pk nahun 80.53 cm/s SSM CV FUJ I PACS PV VTI 18.33 cm SSM CV FUJ I PACS TR pk nahun 292.499 cm/s SSM CV FUJ I PACS Ascending aorta 2.999 cm SSM CV FUJI PACS AV PHT 0.618 s SSM CV FUJ I PACS AV pk nahun regurg 413.482 cm/s SSM CV FUJI PACS AR VTI 221.432 cm SSM CV FUJ I PACS NM VTI 77.979 cm SSM CV FUJ I PACS AR DECEL TIME 2.132 s SSM CV FUJI PACS RA area 20.245 cm SSM CV FUJI PACS RV-alvarado basal diam 3.721 cm SSM CV FUJI PACS RV-alvarado mid diam 3.694 cm SSM CV FUJI PACS TAPSE 2.15 cm SSM CV FUJ I PACS NM PEAK END DIASTOLIC VELOCITY 141.199 cm/s SSM CV FUJI PACS NM Decel Marin 191.392 cm/s2 SSM C V FUJI PACS [...] Laterality Modality Ultrasound 04/08/2024 10:5 3 AM MATERIAL FLOW ANALYST Narrative 04/09/2024 7:54 AM MATERIAL FLOW ANALYST Summary * Findings consistent with sclerotic valves, mild MR and AR, at least moderate TR, trace NM, no valve stenosis, mild effects of HTN, [...] is no pericardial effusion. Patient Info Name: Beth Aaron Age: 83 years : 1940 Gender: Female Ht: 66 in Wt: 166 lb BSA: 1.89 m2 HR: 61 bpm BP: 120 / 80 mmHg Exam Date: 04/08/2024 10:53 AM Patient Status: O Study Site: [facility] Primary Location: [facility] Info Exam Type: ECHO COMPLETE Indications I10 - Essential hypertension Procedure(s) * A complete 2D, color Doppler, spectral Doppler, and M-Mode transthoracic echocardiogram was performed. Staff Referring Physician: Bharathi Higuera Ordering Provider: Bharathi Higuera Respiratory Coordinator: Bessy Shelton Left Ventricle The left ventricle [...] VTI) 2.19 cm2/m2 PV Area (Cont Eq Nahun) 3.9 cm2 PV Area Index (Cont Eq Nahun) 2.08 cm2/m2 PV Accel Time 121.11 ms PV Regurgitation Doppler NM End Diastolic Velocity 1.4 m/s NM End Diastolic Gradient 8 mmHg NM Vena Contracta 0.83 mm Mitral Valve Name [...] Artery Doppler PA End Diastolic Pressure for NM 16 mmHg Aorta Name Value Normal Ascending [...] 2.69 cm2 >=2.00 AV Area (Cont Eq Nahun) 2.73 cm2 AV DI (VTI) 0.69 AV DI (Nahun) 0.70 AV Regurgitation 2D LVOT Area 3.93 [...] and AR, at least moderate TR, trace NM, no valve stenosis, mild effects of HTN, [...] is no pericardial effusion. Patient Info Name: Beth Aaron Age: 83 years : 1940 Gender: Female Ht: 66 in Wt: 166 lb BSA: 1.89 m2 HR: 61 bpm BP: 120 / 80 mmHg Exam Date: 04/08/2024 10:53 AM Patient Status: O Study Site: [facility] Info Exam Type: ECHO COMPLETE Indications I10 - Essential hypertension Procedure(s) * A complete 2D, color Doppler, spectral Doppler, and M-Modetransthoracic echocardiogram was performed. Staff Referring Physician: Bharathi Higuera Ordering Provider: Bharathi Higuera Respiratory Coordinator: Bessy Shelton Left Ventricle The left ventricle [...] VTI) 2.19 cm2/m2 PV Area (Cont Eq Nahun) 3.9 cm2 PV Area Index (Cont Eq Nahun) 2.08 cm2/m2 PV Accel Time 121.11 ms PV Regurgitation Doppler NM End Diastolic Velocity 1.4 m/s NM End Diastolic Gradient 8 mmHg NM Vena Contracta 0.83 mm Mitral Valve Name [...] Artery Doppler PA End Diastolic Pressure for NM 16 mmHg Aorta Name Value Normal Ascending [...] 2.69 cm2 >=2.00 AV Area (Cont Eq Nahun) 2.73 cm2 AV DI (VTI) 0.69 AV DI (Nahun) 0.70 AV Regurgitation 2D LVOT Area 3.93 [...] AM Bharathi Higuera MD ECHO CUPID * NM PM DEVICE INTERROGATE REMOTE, NM PM/ICD REMOTE TECH SERV (02/24/2024 11:07 PM CDT) Bharathi Kilgore MD - 02/24/2024 11:07 PM CDT Bharathi Higuera MD 02/24/2024 11:07 PM Dear Beth Araon, I reviewed the remote interrogation of your device. Your device's sensing and capture thresholds are appropriate and stable. Lead impedances for your device: Atrial lead: 380 ohms RV lead: 418 ohms You are currently paced 95.3% in the atrial and <0.1% in the ventricle. During this most recent monitored period (09/21/2023 to 02/07/2024), you had no arrhythmias. The estimated remaining battery life for your device is 8.0 years. Device function is normal, and no programming changes are required. Please call our offices if you have any further questions. Sincerely, Bharathi Higuera 02/24/2024 Bharathi Higuera MD PROCEDURE/MINOR SURG ICAL ORDERABLES * TSH REFLEX FREE T4 (02/19/2024 1:39 PM CDT) Only the most recent of5 resultswithin the time period is included. [facility] TSH 2.535 0.350 - 4.940 uIU/mL 02/19/2024 2:46 PM CDT [facility] Blood BLOOD SPECIMEN / Unknown Lab Venipuncture / Unknown 02/19/2024 1:39 PM CDT 02/19/2024 1:48 PM CDT Kristen Graf SECURITY SERVICES MANAGER-SURG PHYSICIAN ASST LAB - CHEMISTRY ORDERABLES Performing Organization Address [facility]/State/ZIP Co de Phone Number [facility] [address] [address], [facility] [phone] * (ABNORMAL) CBC W/ DIFFERENTIAL (02/19/2024 1:39 PM CDT) Only the most recent of15 resultswithin the time period is included. [facility] WBC 6.8 4.0 - 10.7 x10E9/L 02/19/2024 1:59 PM CDT [facility] RBC Count 3.85(L) 3.90 - 5.20 x10E12/L 02/19/2024 1:59 PM CDT [facility] Hemoglobin 12.0 11.9 - 15.8 g/dL 02/19/2024 1:59 PM [facility] Hematocrit 36.4 34.8 - 46.1 % 02/19/2024 1:59 PM [facility] MCV 94.5 80.0 - 98.0 fL 02/19/2024 1:59 PM [facility] MCH 31.2 26.7 - 33.6 pg 02/19/2024 1:59 PM [facility] MCHC 33.0 31.7 - 36.3 g/dL 02/19/2024 1:59 PM [facility] RDW-CV 13.3 11.3 - 14.8 % 02/19/2024 1:59 PM [facility] Platelet Count 185 150 - 420 x10E9/L 02/19/2024 1:59 PM [facility] MPV 9.1 7.8 - 11.4 fL 02/19/2024 1:59 PM [facility] Neutrophil % 58.2 41.0 - 74.0 % 02/19/2024 1:59 PM [facility] Lymphocyte % 26.6 17.0 - 47.0 % 02/19/2024 1:59 PM [facility] Monocyte % 11.4(H) 3.0 - 11.0 % 02/19/2024 1:59 PM [facility] Eosinophil % 2.8 0.0 - 7.0 % 02/19/2024 1:59 PM [facility] Basophil % 0.6 0.0 - 1.6 % 02/19/2024 1:59 PM [facility] Immature Granulocytes % 0.4 0.0 - 1.0 % 02/19/2024 1:59 PM [facility] Neutrophil Absolute 3.93 1.60 - 7.50 x10E9/L 02/19/2024 1:59 PM [facility] Lymphocyte Absolute 1.80 1.00 - 4.40 x10E9/L 02/19/2024 1:59 PM [facility] Monocyte Absolute 0.77 0.15 - 1.00 x10E9/L 02/19/2024 1:59 PM [facility] Eosinophil Absolute 0.19 0.00 - 0.60 x10E9/L 02/19/2024 1:59 PM [facility] Basophil Absolute 0.04 0.00 - 0.13 x10E9/L 02/19/2024 1:59 PM [facility] Blood BLOOD SPECIMEN / Unknown Lab Venipuncture / Unknown 02/19/2024 1:39 PM CDT 02/19/2024 1:48 PM CDT Kristen Graf SECURITY SERVICES MANAGER-SURG PHYSICIAN ASST LAB - HEMATOLOG Y ORDERABLES [facility] [address] [place] [phone], [facility] [phone] * (ABNORMAL) COMPREHENSIVE METABOLIC PANEL (02/19/2024 1:39 PM CDT) Only the most recent of12 resultswithin the time period is included. BUN 22 7 - 26 mg/dL 02/19/2024 2:22 PM [facility] Creatinine 0.98(H) 0.56 - 0.96 mg/dL 02/19/2024 2:22 PM [facility] Sodium 139 136 - 145 mmol/L 02/19/2024 2:22 PM [facility] Potassium 4.6(H) 3.5 - 4.5 mmol/L 02/19/2024 2:22 PM [facility] Chloride 106 98 - 107 mmol/L 02/19/2024 2:22 PM [facility] CO2 28 22 - 29 mmol/L 02/19/2024 2:22 PM [facility] Glucose 119(H) 70 - 115 mg/dL 02/19/2024 2:22 PM [facility] Calcium 9.4 8.4 - 10.2 mg/dL 02/19/2024 2:22 PM [facility] Protein Total 6.2 6.0 - 8.3 g/dL 02/19/2024 2:22 PM [facility] Albumin 3.6 3.4 - 5.0 g/dL 02/19/2024 2:22 PM [facility] Bilirubin Total 0.4 0.2 - 1.2 mg/dL 02/19/2024 2:22 PM [facility] Alkaline Phosphatase 94 40 - 150 U/L 02/19/2024 2:22 PM [facility] ALT 10 5 - 55 U/L 02/19/2024 2:22 PM [facility] AST 16 5 - 34 U/L 02/19/2024 2:22 PM [facility] Anion Gap 5(L) 6 - 16 02/19/2024 2:22 PM [facility] BUN/Creatinine Ratio 22 7 - 23 02/19/2024 2:22 PM [facility] Osmolality Calculated 292 275 - 295 mOsm/kg 02/19/2024 2:22 PM [facility] Albumin/Globulin Ratio 1.4 1.1 - 2.3 02/19/2024 2:22 PM [facility] eGFR by CKD-EPI 57(L) >=90 mL/min/1.7 3 m2 02/19/2024 2:22 PM [facility] Blood BLOOD SPECIMEN / Unknown Lab Venipuncture / Unknown 02/19/2024 1:39 PM CDT 02/19/2024 1:48 PM CDT Kristen Graf SECURITY SERVICES MANAGER-SURG PHYSICIAN ASST LAB - CHEMISTRY ORDERABLES Performing Organization Address City/State/[facility] Co de Phone Number [facility] [address] [place] [address], [facility] [phone] * VITAMIN B12 (02/19/2024 1:39 PM CDT) Only the most recent of6 resultswithin the time period is included. Vitamin B12 405 213 - 816 pg/mL 02/19/2024 2:46 PM CDT [facility] Blood BLOOD SPECIMEN / Unknown Lab Venipuncture / Unknown 02/19/2024 1:39 PM CDT 02/19/2024 1:48 PM CDT Kristen Graf SECURITY SERVICES MANAGER-SURG PHYSICIAN ASST LAB - CHEMISTRY ORDERABLES [facility] [address] [place] [phone], [facility] [phone] * CT CHEST WO CONTRAST (01/11/2024 10:10 AM CDT) Only the most recent of2 resultswithin the time period is included. Anatomical Region Laterality Modality Chest Computed Tomogra phy 01/11/2024 12:4 3 PM CDT Impressions 01/11/2024 12:58 PM CDT Impression: 1.Tree-in-bud nodular opacities involving the right lower lobe with the largest nodular component within this region have been slightly decreased in size compared to prior exam. Otherwise this area remains unchanged and is favored to represent sequela of infectious process versus chronic aspiration. 2.No new acute process involving the chest. > Interpreting Provider: Marcos Montez on 01/11/2024 12:58 PM Narrative 01/11/2024 12:58 PM CDT PROCEDURE: CT CHEST WO CONTRAST, DATE/TIME OF EXAM: 01/11/2024 10:10 AM, LOCATION [facility] INDICATION: R93.89: Abnormal CT of the chest ADDITIONAL CLINICAL INFORMATION: Ordering Provider Reason For Exam: Technologist Note: Additional: COMPARISON: CT chest 10/11/2023. TECHNIQUE: CT of the chest was performed without contrast according to standard protocol. Findings: Evaluation of visceral and vascular structures is degraded due to lack of intravenous contrast administration. Lower Neck and Axillae: Cardiac device in the right upper chest with the leads extending into the right atrium and right ventricle. Lungs: Tree-in-bud nodular opacities involving the right lower lobe is not significantly changed since prior exam from 10/11/2023. The largest nodular component within this region has decreased in size currently measuring 4 mm (series 4 image 67) is, compared to 9 mm previously. No new focal consolidative areas identified. Scattered subsegmental atelectasis noted. Scarring involving the lung apices. No suspicious pulmonary nodules are identified. No pleural fluid or pneumothorax is present. Heart and Pericardium: The cardiac chambers are normal in size. No pericardial fluid or thickening is present. Mediastinum and Sunita: No enlarged lymph nodes are present. Thoracic Vasculature: No vascular abnormality is present. Bones and Chest Wall: Bone windows demonstrate no suspicious lytic or blastic lesions. The visible osseous structures are intact. Degenerative changes are seen in the spine. Upper Abdomen: The visible portions of the upper abdominal organs are normal. Procedure Note Marcos Montez MD - 01/11/2024 PROCEDURE: CT CHEST WO CONTRAST, DATE/TIME OF EXAM: 01/11/2024 10:10AM, LOCATION [facility] INDICATION: R93.89: Abnormal CT of the chest ADDITIONAL CLINICAL INFORMATION: Ordering Provider Reason For Exam: Technologist Note: Additional: COMPARISON: CT chest 10/11/2023. TECHNIQUE: CT of the chest was performed without contrast according to standard protocol. Findings: Evaluation of visceral and vascular structures is degraded due to lackof intravenous contrast administration. Lower Neck and Axillae: Cardiac device in the right upper chest with the leads extending intothe right atrium and right ventricle. Lungs: Tree-in-bud nodular opacities involving the right lower lobe is not significantly changed since prior exam from 10/11/2023. The largestnodular component within this region has decreased in size currently measuring 4mm (series 4 image 67) is, compared to 9 mm previously. No new focal consolidative areas identified. Scattered subsegmental atelectasisnoted. Scarring involving the lung apices. No suspicious pulmonary nodules are identified. No pleural fluid or pneumothorax is present. Heart and Pericardium: The cardiac chambers are normal in size. No pericardial fluid orthickening is present. Mediastinum and Sunita: No enlarged lymph nodes are present. Thoracic Vasculature: No vascular abnormality is present. Bones and Chest Wall: Bone windows demonstrate no suspicious lytic or blastic lesions. The visible osseous structures are intact. Degenerative changes are seen inthe spine. Upper Abdomen: The visible portions of the upper abdominal organs are normal. Impression: 1.Tree-in-bud nodular opacities involving the right lower lobe with the largest nodular component within this region have been slightlydecreased in size compared to prior exam. Otherwise this area remains unchangedand is favored to represent sequela of infectious process versus chronic aspiration. 2.No new acute process involving the chest. > Interpreting Provider: Marcos Montez on 01/11/2024 12:[address]ian MD CT ORDERABLES * COMPLETE PFT W/WO BRONCHODILATOR (12/07/2023 6:06 PM CDT) Impressions Marco Hogue MD - 12/07/2023 6:06 PM CDT [facility] DEPARTMENT OF PULMONARY, CRITICAL CARE, AND SLEEP MEDICINE PULMONARY FUNCTION TEST Please see technologist's comments mentioned in the report. INTERPRETATION: SPIROMETRY: FVC: normal FEV1: normal FEV1/FVC ratio is normal. BRONCHODILATOR RESPONSE: There is no response to bronchodilators however does not mean the patient wont benefit from bronchodilator therapy FLOW-VOLUME LOOPS: Mild scooping of the expiratory limbs LUNG VOLUMES: Lung volumes by body plethysmography are within normal limits DLCO: Unadjusted for Hb and COHb is normal DLCO: Corrected for Hb and COHb is: not able to perform AIRWAY RESISTANCE: The airway resistance is normal and the specific conductance is normal ARTERIAL BLOOD GAS ANALYSIS: not performed IMPRESSION: 1. Normal Pulmonary Function Test 2. Normal DLCO 3. No bronchodilator response, however this does not preclude the use of bronchodilators 4. Compared with previous study on 05/18/20, FEV 1 decreased by 380 ml, FVC decreased by 430 ml. No significant change in TLC or DLCO. Tonya Nickerson MD Pulmonary and Critical Care Fellow [facility] Pager Number [phone] I have personally reviewed the fellow's interpretation of the test and made any necessary changes when needed. Marco Hogue MD Numerical Control Router Operatorwater quality control engineer Division of Pulmonary, Critical Care and Sleep Medicine [facility] [employer] [facility] Pager: [phone] Narrative Marco Hogue MD - 12/07/2023 6:06 PM CDT Tonya Nickerson MD 12/08/2023 3:52 PM Procedure Note Tonya Nickerson MD - 12/07/2023 6:06 PM CDT Images from the original note were not included. Jack Milian MD RESPIRATORY THERAPY ORDERABLES * PFT Oxygen Desaturation Study [facility] (12/07/2023 6:00 PM CDT) ImpressionMarco Perez MD - 12/07/2023 6:00 PM CDT [facility] DEPARTMENT OF PULMONARY, CRITICAL CARE, AND SLEEP MEDICINE OXYGEN TITRATION STUDY Beth Aaron 12/08/2023 INTERPRETATION The test was performed while free walking at room air. The patient was able to complete 8 minutes with lowest SpO2 of 95%. IMPRESSION 1. At the above level of activity the patient's oxygen saturation remained 95 % and above on room air. Tonya Nickerson MD Pulmonary and Critical Care Fellow [facility] Pager Number [phone] I have personally reviewed the fellow's interpretation of the test and made any necessary changes when needed. Marco Hogue MD Numerical Control Router Operatorwater quality control engineer Division of Pulmonary, Critical Care and Sleep Medicine [facility] Pager: [phone] Narrative Marco Hogue MD - 12/07/2023 6:00 PM CDT Tonya Nickerson MD 12/08/2023 3:52 PM Procedure Note Tonya Nickerson MD - 12/07/2023 6:00 PM CDT Images from the original note were not included. Jack Milian MD PFT ORDERABLES * Six Minute Walk Test [facility] (12/07/2023 5:47 PM CDT) Impressions Marco Hogue MD - 12/07/2023 5:47 PM CDT [facility] DEPARTMENT OF PULMONARY, CRITICAL CARE, AND SLEEP MEDICINE SIX MINUTE WALK TEST Beth Turner Galen 12/08/2023 Interpretation: The patient walked for 6 minutes on room air and covered total distance of 240 meters. On the Vandana scale at baseline, reported dyspnea was 0 and fatigue was 0. At the end of the study, the Vandana reported dyspnea was 2 and fatigue was 2. There were no additional symptoms reported and oxygen saturation remained above 98% throughout the test. IMPRESSION: 1. Total 6 minute walk distance is 240 meters, which is above the lower limit of normal of 219 meters for this patient. 2. There is no available study for comparison. Tonya Nickerson MD Pulmonary and Critical Care Fellow [facility] Pager Number [phone] I have personally reviewed the fellow's interpretation of the test and made any necessary changes when needed. Marco Hogue MD Numerical Control Router Operatorwater quality control engineer Division of Pulmonary, Critical Care and Sleep Medicine [facility] Pager: [phone] Narrative Marco Hogue MD - 12/07/2023 5:47 PM CDT Tonya Nickerson MD 12/08/2023 3:52 PM Procedure Note Tonya Nickerson MD - 12/07/2023 5:47 PM CDT Images from the original note were not included. Jack Milian MD RESPIRATORY THERAPY ORDERABLES * NM DRAIN/INJECT LARGE JOINT/BURSA, NM DRAIN/INJECT LARGE JOINT/BURSA (07/20/2023 5:03 PM MATERIAL FLOW ANALYST) Narrative Enrico Woodward III, MD - 07/20/2023 5:03 PM MATERIAL FLOW ANALYST Enrico Woodward III, MD 07/20/2023 5:04 PM Consent Given by: patient Indications: pain Local Anesthesia Used?: Yes Joint Location: Knee Knee Laterality & Site: R knee and L knee Prep: patient was prepped and draped in usual sterile fashion Needle Size: 22 G Medications ordered and administration documented through clinic-administered medications activity. Patient tolerance: Patient tolerated the procedure well with no immediate complications Enrico Woodward III, MD PROCEDURE/MIN OR SURGICAL ORDERABLES * (ABNORMAL) LIPID PROFILE (06/12/2023 11:35 AM MATERIAL FLOW ANALYST) Cholesterol Total 205(H) <200 mg/dL 06/12/2023 12:39 PM [facility] HDL 72 >40 mg/dL 06/12/2023 12:39 PM [facility] Comment: ATP III Classification of HDL Cholesterol: <40 mg/dL: Considered a major risk factor. >60 mg/dL: Considered a negative risk factor. LDL Calculated 122(H) <100 mg/dL 06/12/2023 12:39 PM [facility] Comment: ATP III Classification of LDL Cholesterol: <100 mg/dL: Optimal 100 - 129 mg/dL: Near Optimal/Above Optimal 130 - 159 mg/dL: Borderline High 160 - 189 mg/dL: High >190 mg/dL: Very High Triglycerides 57 <150 mg/dL 06/12/2023 12:39 PM MATERIAL FLOW ANALYST [facility] Comment: ATP III Classification of Triglycerides: <150 mg/dL: Normal 150 - 199 mg/dL: Borderline High 200 - 400 mg/dL: High >500 mg/dL: Very High Blood BLOOD SPECIMEN / Unknown Lab Venipuncture / Unknown 06/12/2023 11:35 AM MATERIAL FLOW ANALYST 06/12/2023 11:52 AM MATERIAL FLOW ANALYST Kristen Graf SECURITY SERVICES MANAGER-SURG PHYSICIAN ASST LAB - CHEMISTRY ORDERABLES [facility] [address] [place] [phone], [facility] [phone] * US ABDOMEN COMPLETE (06/12/2023 10:24 AM MATERIAL FLOW ANALYST) Anatomical Region Laterality Modality Abdomen Ultrasound 06/12/2023 10:1 8 AM MATERIAL FLOW ANALYST Impressions 06/12/2023 1:00 PM MATERIAL FLOW ANALYST IMPRESSION: 4 mm nonobstructing calculus in the left kidney. No hydronephrosis. Otherwise unremarkable exam. > Dictated by Enrique Hines MD (vice president diversity). > Dictated by Enrique Hines (Circular Saw Edge Fuser) 06/12/2023 10:18 AM IBia MD have personally reviewed and interpreted this examination/study. > Interpreting Provider: Bia Thompson MD on 06/12/2023 1:00 PM Narrative 06/12/2023 1:00 PM MATERIAL FLOW ANALYST PROCEDURE: US ABDOMEN COMPLETE, DATE/TIME OF EXAM: 06/12/2023 10:24 AM, LOCATION [facility] INDICATION: R10.31: Abdominal pain, RLQ (right lower quadrant) ADDITIONAL CLINICAL INFORMATION: Ordering Provider Reason For Exam: Technologist Note: Additional: COMPARISON: CT 06/17/2022. FINDINGS: The liver is normal in echotexture and echogenicity with smooth surface contour. No discrete hepatic mass or intrahepatic biliary dilatation is seen. Color Doppler evaluation demonstrates patency of the hepatic and portal veins. No gallstones or pericholecystic fluid is seen. The gallbladder wall is normal in thickness, measuring 2 mm. Sonographic Laureano's sign is negative. The common bile duct is nondilated, measuring 5 mm. The spleen measures 8.7 cm in length. The visible pancreas is normal in echogenicity. No ascites is present. The right kidney measures 8.5 x 3.3 x 5.2 cm. The left kidney measures 9.0 x 4.4 x 4.0 cm. There is no evidence of hydronephrosis or solid renal mass. There is a 4 mm nonobstructing calculus in the left kidney. Blood flow is seen within the renal arteries and veins. The visible aorta and inferior vena cava are patent. Procedure Note Bia Thompson MD - 06/12/2023 PROCEDURE: US ABDOMEN COMPLETE, DATE/TIME OF EXAM: 06/12/2023 10:24 AM, LOCATION [facility] INDICATION: R10.31: Abdominal pain, RLQ (right lower quadrant) ADDITIONAL CLINICAL INFORMATION: Ordering Provider Reason For Exam: Technologist Note: Additional: COMPARISON: CT 06/17/2022. FINDINGS: The liver is normal in echotexture and echogenicity with smooth surface contour. No discrete hepatic mass or intrahepatic biliary dilatation is seen. Color Doppler evaluation demonstrates patency of the hepatic and portal veins. No gallstones or pericholecystic fluid is seen. The gallbladder wall is normal in thickness, measuring 2 mm. Sonographic Laureano's sign isnegative. The common bile duct is nondilated, measuring 5 mm. The spleen measures 8.7 cm in length. The visible pancreas is normal in echogenicity. No ascites is present. The right kidney measures 8.5 x 3.3 x 5.2 cm. The left kidney measures9.0 x 4.4 x 4.0 cm. There is no evidence of hydronephrosis or solid renalmass. There is a 4 mm nonobstructing calculus in the left kidney. Blood flowis seen within the renal arteries and veins. The visible aorta and inferior vena cava are patent. IMPRESSION: 4 mm nonobstructing calculus in the left kidney. No hydronephrosis. Otherwise unremarkable exam. > Dictated by Enrique Hines MD (vice president diversity). > Dictated by Enrique Hines (Circular Saw Edge Fuser) 06/12/2023 10:18 AM Bia Santana MD have personally reviewed and interpreted this examination/study. > Interpreting Provider: Bia Thompson MD on 06/12/2023 1:00 PM Kristen Graf SECURITY SERVICES MANAGER-SURG PHYSICIAN ASST ORDERABLES * NM PM DEVICE EVAL IN PERSON (03/23/2023 2:07 PM MATERIAL FLOW ANALYST) Narrative Bharathi Higuera MD - 03/23/2023 2:07 PM MATERIAL FLOW ANALYST Bharathi Higuera MD 03/23/2023 2:07 PM I personally interrogated her pacemaker The device is a Medtronic brand Dual Chamber Pacemaker. Model: Rosette XT SN: [id number] Implanted on : 08/16/2021 Battery life: 9.6 yrs Leads: Atrial lead: P waves: 1.4 Capture threshold (mA): 1.25 @ 0.4 Impedance: 399 ohms Programmed 1.25 @ 0.4 ms, sensitivity 0.3 mV RV lead R waves: 19.0 mV Capture threshold (mA): 1.50 @ 0.4 Impedance: 437 ohms Programmed 2.5 @ 0.4 ms, sensitivity 1.2 mV Episodes: AF burden 0% Pacing [place]: RA: 99.8% RV/LV: 0.1% Programming: Mode: DDD 70 AAIR<=>DDDR Lower rate: 60 bpm Upper rate: 130 bpm AV delay: Sensed/Paced = 130/180 Bharathi Higuera MD PROCEDURE/MINOR SURG ICAL ORDERABLES * NM DRAIN/INJECT LARGE JOINT/BURSA, NM DRAIN/INJECT LARGE JOINT/BURSA (11/08/2022 11:52 AM CDT) Narrative Enrico Woodward III, MD - 11/08/2022 11:52 AM CDT Enrico Woodward III, MD 11/14/2022 2:16 PM Consent Given by: patient Indications: pain Local Anesthesia Used?: Yes Joint Location: Knee Knee Laterality & Site: R knee and L knee Prep: patient was prepped and draped in usual sterile fashion Needle Size: 22 G Medications ordered and administration documented through clinic-administered medications activity. Patient tolerance: Patient tolerated the procedure well with no immediate complications Enrico Woodward III, MD PROCEDURE/MIN OR SURGICAL ORDERABLES * XR PELVIS W LEFT HIP 2VW (11/08/2022 10:52 AM CDT) Anatomical Region Laterality Modality Pelvis Radiographic Kathleen ging 11/08/2022 12:2 9 PM CDT Impressions 11/08/2022 12:30 PM CDT IMPRESSION: Normal left hip. > Interpreting Provider: Gil Bernard MD on 11/08/2022 12:30 PM Narrative 11/08/2022 12:30 PM CDT PROCEDURE: XR PELVIS W LEFT HIP 2VW DATE/TIME OF EXAM: 11/08/2022 10:52 AM CLINICAL INFORMATION: None relevant/not provided if blank. Indication: M25.552: Pain of left hip Additional History: COMPARISON: None. TECHNIQUE: FINDINGS: No left hip fracture or dislocation is present. The joint space is normal. There are no erosions. The pelvic radiograph demonstrates a calcification at the midline which may represent a calcified uterine fibroid. The pubic symphysis and sacroiliac joints are intact. Procedure Note Gil Bernard MD - 11/08/2022 PROCEDURE: XR PELVIS W LEFT HIP 2VW DATE/TIME OF EXAM: 11/08/2022 10:52 AM CLINICAL INFORMATION: None relevant/not provided if blank. Indication: M25.552: Pain of left hip Additional History: COMPARISON: None. TECHNIQUE: FINDINGS: No left hip fracture or dislocation is present. The joint space isnormal. There are no erosions. The pelvic radiograph demonstrates a calcification at the midline whichmay represent a calcified uterine fibroid. The pubic symphysis andsacroiliac joints are intact. IMPRESSION: Normal left hip. > Interpreting Provider: Gil Bernard MD on 11/08/2022 12:30 PM Enrico Woodward III, MD DIAGNOSTIC IM AGING ORDERABLES * NM PM DEVICE EVAL IN PERSON (09/23/2022 3:08 PM CDT) Narrative Bharathi Higuera MD - 09/23/2022 3:08 PM CDT Bharathi Higuera MD 09/23/2022 3:08 PM The device is a Medtronic brand Dual Chamber Pacemaker. Model: Rosette XT SN: [id number] Implanted on : 08/16/2021 Battery life: 10.4 yrs Leads: Atrial lead: P waves: 1.5 Capture threshold (mA): 1.125 @ 0.4 Impedance: 361 ohms Programmed 2.25 @ 0.4 ms, sensitivity 0.3 mV RV lead R waves: 16.1 mV Capture threshold (mA): 1.25 @ 0.4 Impedance: 437 ohms Programmed 2.5 @ 0.4 ms, sensitivity 1.2 mV Episodes: AF burdfen 0% Pacing [place]: RA: 99.4% RV/LV: 0.1% Programming: Mode: DDD 70 AAIR<=>DDDR Lower rate: 60 bpm Upper rate: 130 bpm AV delay: Sensed/Paced = 130/180 3.Essential Hypertension # BP ok today # cont Coreg to 25mg PO BID # Now off Hydralazine # cont losartan 50mg 4.Leg swelling # improved off hydralazine Bharathi Higuera MD PROCEDURE/MINOR SURG ICAL ORDERABLES * NM DESTRUCT BENIGN LESION, 1-14 (08/11/2022 1:45 PM CDT) Narrative Matheus Cope MD - 08/11/2022 1:45 PM CDT Dominic Hines MD 08/11/2022 1:45 PM Diagnosis and treatment options discussed. Liquid nitrogen was applied to 3 lesions (see office visit note for locations) for 6-10 seconds each for 1 cycle. Wound care reviewed. Matheus Cope MD PROCEDURE/MINOR SURG ICAL ORDERABLES * (ABNORMAL) BASIC METABOLIC PANEL (CALCIUM TOTAL) (07/01/2022 9:57 AM MATERIAL FLOW ANALYST) Only the most recent of11 resultswithin the time period is included. BUN 26 7 - 26 mg/dL 07/01/2022 10:31 AM [facility] Creatinine 1.12(H) 0.56 - 0.96 mg/dL 07/01/2022 10:31 AM [facility] Sodium 140 136 - 145 mmol/L 07/01/2022 10:31 AM [facility] Potassium 4.3 3.5 - 4.5 mmol/L 07/01/2022 10:31 AM [facility] Chloride 102 98 - 107 mmol/L 07/01/2022 10:31 AM [facility] CO2 29 22 - 29 mmol/L 07/01/2022 10:31 AM [facility] Glucose 75 70 - 115 mg/dL 07/01/2022 10:31 AM [facility] Calcium 9.8 8.4 - 10.2 mg/dL 07/01/2022 10:31 AM [facility] Anion Gap 13 8 - 18 07/01/2022 10:31 AM [facility] BUN/Creatinine Ratio 23 7 - 23 07/01/2022 10:31 AM [facility] Osmolality Calculated 293 270 - 300 mOsm/kg 07/01/2022 10:31 AM [facility] eGFR by CKD-EPI 49(L) >=90 mL/min/1.7 3 m2 07/01/2022 10:31 AM [facility] Blood BLOOD SPECIMEN / Unknown Lab Venipuncture / Unknown 07/01/2022 9:57 AM MATERIAL FLOW ANALYST 07/01/2022 10:04 AM [facility] Bharathi Higuera MD LAB - CHEMISTRY [facility]INGUE[facility] [address] [place] [address], [facility] [phone] * NM PM DEVICE EVAL IN PERSON (06/23/2022 4:45 PM [facility]) Narrative Bharathi Higuera MD - 06/23/2022 4:45 PM MATERIAL FLOW ANALYST Bharathi Higuera MD 06/23/2022 4:45 PM I personally interrogated the PPM. The device is a Medtronic brand Dual Chamber Pacemaker. Model: Rosette XT SN: [id number] Implanted on : 08/16/2021 Battery life: 10.8 yrs Leads: Atrial lead: P waves: Paced@ 30 Capture threshold (mA): 1.125 @ 0.4 Impedance: 380 ohms Programmed 2.25 @ 0.4 ms, sensitivity 0.3 mV RV lead R waves: 15.9 mV Capture threshold (mA): 1.375 @ 0.4 Impedance: 456 ohms Programmed 2.75 @ 0.4 ms, sensitivity 1.2 mV Episodes: AF burdfen < 0.1% Pacing [place]: RA: 99.6% RV/LV: 0.1% Programming: Mode: DDD 70 AAIR<=>DDDR Lower rate: 60 bpm Upper rate: 130 bpm AV delay: Sensed/Paced = 150/180 Bharathi Higuera MD PROCEDURE/MINOR SURG ICAL ORDERABLES * CT ABDOMEN PELVIS W CONTRAST (06/17/2022 2:21 PM MATERIAL FLOW ANALYST) Anatomical Region Laterality Modality Abdomen, Pelvis Computed Tomogra phy 06/17/2022 2:40 PM MATERIAL FLOW ANALYST Impressions 06/17/2022 5:19 PM MATERIAL FLOW ANALYST Impression: 1.No acute process identified in the abdomen or pelvis. 2.Partially imaged pulmonary nodules as described above measuring up to 5 mm. Follow-up chest CT may be obtained in one year. > Dictated by Shanti Laureano DO (vice president diversity). I, Tatiana Culver MD have personally reviewed and interpreted this examination/study. > Interpreting Provider: Tatiana Culver MD on 06/17/2022 5:19 PM Narrative 06/17/2022 5:19 PM MATERIAL FLOW ANALYST PROCEDURE: CT ABDOMEN PELVIS W CONTRAST, DATE/TIME OF EXAM: 06/17/2022 2:22 PM, LOCATION [facility] INDICATION: R10.31: Abdominal pain, RLQ (right lower quadrant) COMPARISON: None. TECHNIQUE: CT of the abdomen and pelvis was performed following the uneventful administration of 100 mL of Isovue 370 intravenous contrast according to standard protocol. Findings: Lower Chest: Cardiac leads seen terminating within the right atrium and right ventricle. Partially imaged 5 mm nodule on series 3 image 1 the right lower lobe. Tree-in-bud nodularity within the right lower lobe. There is an additional 5 mm nodule that is subpleural in nature within the right lower lobe best seen on series 3 image 6. Focal atelectasis in the lingula. Liver: Normal. Gallbladder and Bile Ducts: Normal. Spleen: Normal. Pancreas: Atrophic pancreas. Adrenals: Normal. Kidneys: Exophytic renal cyst, simple attenuating on the left. Gastrointestinal: The stomach and visualized loops of large and small bowel are unremarkable. The appendix is not seen; however, no inflammatory changes are seen in the right lower quadrant. Mesentery/Peritoneum/Retroperitoneum: There is no mesenteric or retroperitoneal lymphadenopathy. No free air or free fluid is present. Pelvis: The bladder is not fully distended. There is a calcified fibroid within the uterus. Otherwise, there is some mild heterogeneous enhancement of the uterus. There is no free pelvic fluid. Vasculature: The aorta is mildly tortuous but normal in caliber. Bones: Bone windows demonstrate no suspicious lytic or blastic lesions. The visible osseous structures are intact. Mild degenerative is are present at L5/S1. Soft tissues: Fatty infiltration of the paraspinal muscles bilaterally. There is a long tubular structure is noted extending from the anterior chest wall and right anterior abdominal soft tissues into the right external iliac vein, likely reflecting a collateral vessel. Procedure Note Ariadne Culver MD - 06/17/2022 PROCEDURE: CT ABDOMEN PELVIS W CONTRAST, DATE/TIME OF EXAM: :22 PM, LOCATION [facility] INDICATION: R10.31: Abdominal pain, RLQ (right lower quadrant) COMPARISON: None. TECHNIQUE: CT of the abdomen and pelvis was performed following the uneventful administration of 100 mL of Isovue 370 intravenous contrast according to standard protocol. Findings: Lower Chest: Cardiac leads seen terminating within the right atrium and rightventricle. Partially imaged 5 mm nodule on series 3 image 1 the right lower lobe. Tree-in-bud nodularity within the right lower lobe. There is anadditional 5 mm nodule that is subpleural in nature within the right lower lobebest seen on series 3 image 6. Focal atelectasis in the lingula. Liver: Normal. Gallbladder and Bile Ducts: Normal. Spleen: Normal. Pancreas: Atrophic pancreas. Adrenals: Normal. Kidneys: Exophytic renal cyst, simple attenuating on the left. Gastrointestinal: The stomach and visualized loops of large and small bowel areunremarkable. The appendix is not seen; however, no inflammatory changes are seen inthe right lower quadrant. Mesentery/Peritoneum/Retroperitoneum: There is no mesenteric or retroperitoneal lymphadenopathy. No free airor free fluid is present. Pelvis: The bladder is not fully distended. There is a calcified fibroid withinthe uterus. Otherwise, there is some mild heterogeneous enhancement of the uterus. There is no free pelvic fluid. Vasculature: The aorta is mildly tortuous but normal in caliber. Bones: Bone windows demonstrate no suspicious lytic or blastic lesions. The visible osseous structures are intact. Mild degenerative is are presentat L5/S1. Soft tissues: Fatty infiltration of the paraspinal muscles bilaterally. There is along tubular structure is noted extending from the anterior chest wall andright anterior abdominal soft tissues into the right external iliac vein,likely reflecting a collateral vessel. Impression: 1.No acute process identified in the abdomen or pelvis. 2.Partially imaged pulmonary nodules as described above measuring up to5 mm. Follow-up chest CT may be obtained in one year. > Dictated by Shanti Laureano DO (vice president diversity). Tatiana Santana MD have personally reviewed and interpreted this examination/study. > Interpreting Provider: Tatiana Culver MD on 06/17/2022 5:19 PM Kristen Oliva Graf SECURITY SERVICES MANAGER-[facility] CT ORDERABLES * BONE DENSITY AXIAL SKELETON(1OR MORE SITES)[id number] (06/17/2022 1:22 PM MATERIAL FLOW ANALYST) Anatomical Region Laterality Modality Other 06/20/2022 5:28 PM MATERIAL FLOW ANALYST Narrative 06/20/2022 5:29 PM MATERIAL FLOW ANALYST PROCEDURE: DEXA BONE DENSITY AXIAL SKELETON, DATE/TIME OF EXAM: 06/17/2022 1:23 PM, LOCATION [facility] 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 [...] SKELETON, DATE/TIME OF EXAM:06/17/2022 1:23 PM, LOCATION [facility] 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 [...] DO on 06/20/2022 5:29 PM Kristen Graf SECURITY SERVICES MANAGER-SURG PHYSICIAN ASST DEXA ORDERABLES * NM PM DEVICE EVAL IN PERSON (03/24/2022 5:14 PM MATERIAL FLOW ANALYST) Narrative Bharathi Higuera MD - 03/24/2022 5:14 PM MATERIAL FLOW ANALYST Bharathi Higuera MD 03/24/2022 5:14 PM I personally interrogated the PPM / ICD. The device is a Medtronic brand Dual Chamber Pacemaker. Model: Archbold XT SN: [id number] Implanted on : 08/16/2021 Battery life: 10.6 Leads: Atrial lead: P waves: Paced@ 30 Capture threshold (mA): 1.25 @ 0.4 Impedance: 361 ohms Programmed 1.25 @ 0.4 ms, sensitivity 0.3 mV RV lead R waves: 19.8 mV Capture threshold (mA): 1.75 @ 0.4 Impedance: 456 ohms Programmed 3.25 @ 0.4 ms, sensitivity 1.2 mV Episodes: AF burdfen < 0.1% Pacing [place]: RA: 99.3% RV/LV: 0.1% Programming: Mode: DDD 70 AAIR<=>DDDR Lower rate: 60 bpm Upper rate: 130 bpm AV delay: Sensed/Paced = 150/180 Bharathi Higuera MD PROCEDURE/MINOR SURG ICAL ORDERABLES * NM DESTRUCT BENIGN LESION, 1-14 (03/15/2022 1:18 PM CDT) Narrative Lilliana Thomas MD - 03/15/2022 1:18 PM CDT Dominic Hines MD 03/15/2022 1:18 PM Diagnosis and treatment options discussed. Cryotherapy (Liquid Nitrogen) to iSK on L cheek x 6-10 seconds each. Number of cycles: 1. Wound care reviewed. Lilliana Thomas MD PROCEDURE/MINOR OMALLEY RGICAL ORDERABLES * NM DRAIN/INJECT LARGE JOINT/BURSA, NM DRAIN/INJECT LARGE JOINT/BURSA (02/15/2022 9:00 AM CDT) Narrative Enrico Woodward III, MD - 02/15/2022 9:00 AM CDT Enrico Woodward III, MD 02/15/2022 9:01 AM Consent Given by: patient Indications: pain Local Anesthesia Used?: Yes Joint Location: Knee (Superolateral) Knee Laterality & Site: R knee and L knee Prep: patient was prepped and draped in usual sterile fashion Needle Size: 22 G Medications ordered and administration documented through clinic-administered medications activity. Patient tolerance: Patient tolerated the procedure well with no immediate complications Enrico Woodward III, MD PROCEDURE/MIN OR SURGICAL ORDERABLES * XR FOOT RIGHT 3VW OR MORE (02/14/2022 3:28 PM CDT) Only the most recent of2 resultswithin the time period is included. Anatomical Region Laterality Modality Ankle / Foot Radiographic Kathleen ging 02/14/2022 3:27 PM CDT Impressions 02/14/2022 3:29 PM CDT IMPRESSION: No acute osseous abnormality. > Interpreting Provider: Gil Bernard MD on 02/14/2022 3:29 PM Narrative 02/14/2022 3:29 PM CDT PROCEDURE: XR FOOT RIGHT 3VW OR MORE, DATE/TIME OF EXAM: 02/14/2022 3:22 PM, LOCATION [facility] INDICATION: M79.671: Right foot pain ADDITIONAL CLINICAL INFORMATION: Ordering Provider Reason For Exam: Technologist Note: Additional: COMPARISON: 10/22/2021. FINDINGS: No fracture or dislocation is present. A spur is noted the dorsal aspect of the talar head. The joint spaces are normal. The soft tissues are normal. Procedure Note Gil Bernard MD - 02/14/2022 PROCEDURE: XR FOOT RIGHT 3VW OR MORE, DATE/TIME OF EXAM: 23:22 PM, LOCATION [facility] INDICATION: M79.671: Right foot pain ADDITIONAL CLINICAL INFORMATION: Ordering Provider Reason For Exam: Technologist Note: Additional: COMPARISON: 10/22/2021. FINDINGS: No fracture or dislocation is present. A spur is noted the dorsal aspectof the talar head. The joint spaces are normal. The soft tissues arenormal. IMPRESSION: No acute osseous abnormality. > Interpreting Provider: Gil Bernard MD on 02/14/2022 3:29 PM Enrico Woodward III, MD DIAGNOSTIC IM AGING ORDERABLES * NM US SOFT TISS HEAD&NCK R-T IMG (02/04/2022 11:50 AM CDT) Narrative Santiago Banuelos MD - 02/04/2022 11:50 AM CDT Santiago Banuelos MD 02/04/2022 5:37 PM Ultrasound Of Thyroid Ultrasound of the Thyroid PHYSICIAN Santiago Banuelos MD FELLOW: Arnol VALLEJO MD Test Date: 02/04/2022 Test Indication: Patient Active Problem List: Typical atrial flutter Thyroid nodule Goiter, nontoxic, multinodular Seasonal allergies Essential hypertension Palpitations Shortness of breath Chest pain Generalized anxiety disorder Bilateral primary osteoarthritis of knee Referring Physician: Dr. Kristen Graf, SECURITY SERVICES MANAGER-SURG PHYSICIAN ASST Procedure Preformed: Ultrasound Only COMPARED TO: 07/23/2020, 01/29/2021 Nodule Size: RIGHT LOBE TRANSVERSE IMAGE : SOLID, SMOOTH BORDER, MID LOBE TO INFERIOR POLE, ISOECHOIC, HETEROGENEOUS ECHO TEXTURE , VASCULARITY IN HALO, SOME CYSTIC AREAS IN INFERIOR PART OF NODULE, 2.29 X 1.57 CM VS 2.48 X 1.57 CM LONGITUDINAL IMAGE : 2.40 X 1.54 CM, SECOND IMAGE 2.49 X 1.71 CM LEFT LOBE TRANSVERSE IMAGE : SPONGIFORM NODULE, MOSTLY CYSTIC, MID LOBE, 0.50 X 0.24 CM, SECOND IMAGE 0.50 X 0.31 CM LONGITUDINAL IMAGE: 0.62 X 0.38 CM Echogenicity: HETEROGENEOUS ECHO TEXTURE TO BOTH LOBES Vascularity: NOT INCREASED OR ABNORMAL BUT IN HALO OF RIGHT LOBE NODULE Number of Nodules Present: SEE ABOVE Calcifications: NONE Borders: SHARP RIGHT LOBE TRANSVERSE IMAGE : 2.89 X 1.84 CM LONGITUDINAL IMAGE : 5.81 CM ISTHMUS: 0.43 CM LEFT LOBE TRANSVERSE IMAGE : 1.70 X 1.36 CM LONGITUDINAL IMAGE: 5.04 CM ASSESSNENT NO CHANGE IN ULTRASOUND APPEARANCE NO CHANGE IN NODULE APPEARANCE ON US EUTHYROID CLINICALLY Recommendations: PLAN THYROID ULTRASOUND TODAY LAB TODAY FOR TSH AT LEAST ANNUAL TSH DETERMINATION RETURN IN TWO YEARS FOR ULTRASOUND MEDICATION -NONE FOR THYROID INDICATED Santiago Banuelos MD Division of Endocrinology Santiago Banuelos MD PROCEDURE/MINOR KASH GICAL ORDERABLES * NM BIOPSY, NAIL UNIT (01/25/2022 3:20 PM CDT) Narrative Lilliana Thomas MD - 01/25/2022 3:20 PM CDT Dominic Hines MD 01/25/2022 5:36 PM Nail Plate specimen Counseled on risk, benefit, purpose, alternatives of procedure. Patient understands the possibility for the following: Pain/discomfort, altered shape of nail, the possibility of non-diagnostic reading, and the potential need for further testing or treatment, including other specimens. Stated clearly the size of the specimen and the need to obtain adequate tissue for the most accurate path reading and that specimen would be sent to pathology. Patient accepts all of above, verbal consent was obtained. Location: R great toenail Skin prep: Alcohol Nail clippers were used to clip a portion of the nail plate. Anesthesia: none required Hemostasis: none required The patient tolerated the procedure well. No complications were encountered. Nail plate submitted in jar with labeling of patient information and will be sent to dermatopathology. Discussed expectations for time needed for results. Patient agrees to phone call for results and message if not available. Miguel Angel Hines MD [facility] Dermatology Resident, PGY4 Lilliana Thomas MD PROCEDURE/MINOR OMALLEY RGICAL ORDERABLES * (ABNORMAL) FUNGUS REGINA - POINT OF CARE (AMB) [facility] (01/25/2022 12:10 PM CDT) REGINA Prep Yes Comment:positive for hyphae Fluid BODY FLUID SPECIMEN / Unknown 01/25/2022 12:10 PM CDT Lilliana Thomsa MD LAB - POINT OF CAR E ORDERABLES * NM DESTRUCT BENIGN LESION, 1-14 (01/25/2022 12:06 PM CDT) Narrative Lilliana Thomas MD - 01/25/2022 12:06 PM CDT Dominic Hines MD 01/25/2022 12:07 PM Diagnosis and treatment options discussed. Cryotherapy (Liquid Nitrogen) to iSK on L cheek, R brow x 6-10 seconds each. Number of cycles: 1. Wound care reviewed. Lilliana Thomas MD PROCEDURE/MINOR OMALLEY RGICAL ORDERABLES * (ABNORMAL) CULTURE FUNGUS SKIN HAIR NAIL+FUNGUS SMEAR (01/25/2022 12:04 PM CDT) Smear (A) [facility] Comment: CULTURE,FUNGUS,SKIN,HAIR, NAIL W/DIRECT FLUOR/[facility] Number: [id number] Test Status: Final Specimen Source: Right great toenail Specimen Quality: Adequate Smear: Few Fungal elements seen Result: No fungal growth at 4 Weeks Test Performed at: [email or web address] [address] AMA KRISHNA MD 01/25/2022 12:0 4 PM CDT 01/26/2022 2:47 AM CDT Lilliana Thomas MD LAB - MICROBIOLOGY ORDERABLES [address] [address] * DERMATOPATHOLOGY (01/25/2022 12:00 AM CDT) Case Report Dermatopathology Report Case: [id number] Authorizing Provider: Lilliana Thomas MD Collected: 01/25/2022 12:00 AM Ordering Location: [facility] Received: 01/25/2022 03:16 PM Dermatology Pathologist: Ambreen Miller MD Specimen: Skin, right great toenail 2 1:44 PM CDT DERMATOPATHOLOGY LABORATORY Final Diagnosis Specimen A. SKIN, right great toenail: ONYCHOMYCOSIS (B35.1) 2 1:44 PM CDT DERMATOPATHOLOGY LABORATORY Clinical History R/O Onychomycosis 2 1:44 PM CDT DERMATOPATHOLOGY LABORATORY Gross Description Specimen A: Received is one formalin filled container labeled with the patient's name and designated right great toenail. The specimen consists of a nail clipping measuring [id number]. 2 1:44 PM CDT DERMATOPATHOLOGY LABORATORY Microscopic Description Specimen A. SKIN, right great toenail: Sections show nail plate. Fungal hyphae are present on Periodic acid-Paddy (PAS) stained sections. 2 1:44 PM CDT DERMATOPATHOLOGY LABORATORY Disclaimer An external and internal positive and negative controls are appropriate for the histochemical, immunohistochemical and immunofluorescence stain(s) in this case (if any), except where stated explicitly. The performance characteristics of the stain(s) cited in this report were developed and its performance characteristic determined by the Dermatopathology Laboratory at [facility], directed by Dr. Jose R Alcazar. These tests need not be, and therefore are not, approved by the [place] Food and Drug Administration. The tests are used for clinical purposes. Billing Codes Specimen Charges Stain Charges 77467 1 15309 1 2 1:44 PM CDT DERMATOPATHOLOGY LABORATORY Embedded Images 2 1:44 PM CDT DERMATOPATHOLOGY LABORATORY Pathology/Cytolog y TISSUE SPECIMEN FROM SKIN / Unknown 01/25/2022 01/25/2022 3:16 PM CDT Lilliana Thoams MD LAB - PATHOLOGY/CY TOLOGY ORDERABLES DERMATOPATHOLOGY LABORATORY [facility] - Department of Dermatology [facility] [address] [place] [address], [facility] [phone] * NM DRAIN/INJECT LARGE JOINT/BURSA, NM DRAIN/INJECT LARGE JOINT/BURSA (10/22/2021 4:44 PM CDT) Narrative Enrico Woodward III, MD - 10/22/2021 4:44 PM CDT Enrico Woodward III, MD 10/22/2021 4:45 PM Consent Given by: patient Indications: pain Local Anesthesia Used?: Yes Joint Location: Knee Knee Laterality & Site: R knee and L knee Prep: patient was prepped and draped in usual sterile fashion Needle Size: 22 G Medications ordered and administration documented through clinic-administered medications activity. Aspirate amount (mL): 10 Lab: fluid sent for laboratory analysis Patient tolerance: Patient tolerated the procedure well with no immediate complications Enrico Woodward III, MD PROCEDURE/MIN OR SURGICAL ORDERABLES * CRYSTAL INDENTIFICATION SYNOVIAL FLUID (10/22/2021 12:03 PM CDT) Crystal Exam Fluid Calcium Pyrophosphate crystals seen. To be reviewed by pathologist. 10/25/2021 8:53 AM CDT [facility] Comment:This is a corrected result. Previous result was No crystals seen. To be reviewed by pathologist. on 10/22/2021 at 1313 CDT Fluid SYNOVIAL FLUID / Unknown Collection / Unknown 10/22/2021 12:03 PM CDT 10/22/2021 12:09 PM CDT Enrico Woodward III, MD LAB - BODY FL UID ORDERABLES [facility] [address] [place] [address], 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 Review of the of the cytospin of the synovial fluid smear confirms the differential data. The smear shows abundant reactive monocytes and macrophages with lesser numbers of neutrophils. Under polarized light, intracellular rhomboid and oblong ovoid shaped crystals are seen. 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 This case was discussed with Kristen GAUILAR at 11:00 AM on 10-25-21. Diane Crain MD Carbonation Equipment Operator Clinical Core Laboratory [facility] Fluid SYNOVIAL FLUID / Unknown Collection / Unknown 10/22/2021 12:03 PM CDT 10/22/2021 12:09 PM CDT Enrico Woodward III, MD LAB - PATHOLO GY/CYTOLOGY ORDERABLES Performing Organization Address [facility]/ZIP Co de Phone Number [address] [address], [place] [phone] * DIFFERENTIAL MANUAL FLUID (10/22/2021 12:03 PM CDT) Segs % Fluid 8 % 10/22/2021 1:04 PM CDT [facility] Lymphocytes % Fluid 15 % 10/22/2021 1:04 PM CDT [facility] Monocytes % Fluid 40 % 10/22/2021 1:04 PM CDT [facility] Macrophages % Fluid 36 % 10/22/2021 1:04 PM CDT [facility] Synovial Lining Cells % 1 % 10/22/2021 1:04 PM CDT [facility] Fluid SYNOVIAL FLUID / Unknown Collection / Unknown 10/22/2021 12:03 PM CDT 10/22/2021 12:09 PM CDT Enrico Woodward III, MD LAB - BODY FL UID ORDERABLES Performing Organization Address [facility]/ZIP Co de Phone Number [address] [address], [place] [phone] * CULTURE FLUID+GRAM STAIN (10/22/2021 12:03 PM CDT) Culture No growth RICHIE 10/26/2021 12:23 AM CDT [facility] MICROBIOLOGY Gram Stain No polymorphonuclear cells 10/26/2021 12:23 AM CDT [facility] MICROBIOLOGY Gram Stain No organisms seen 022 12:23 AM CDT [facility] MICROBIOLOGY Fluid SYNOVIAL FLUID / Unknown Collection / Unknown 10/22/2021 12:03 PM CDT 10/22/2021 12:09 PM CDT Enrico Woodward III, MD LAB - MICROBI OLOGY ORDERABLES [facility] MICROBIOLOGY [address] [place] [address], [facility] [phone] * (ABNORMAL) CELL COUNT W DIFF W CRYSTALS SYNOVIAL (10/22/2021 12:03 PM CDT) Color Fluid Yellow(A) Colorles s, Straw 10/22/2021 12:41 PM [facility] Clarity Fluid Hazy(A) Clear 10/22/2021 12:41 PM [facility] Volume Fluid 2.0 mL 10/22/2021 12:41 PM [facility] Viscosity Normal 10/22/2021 12:41 PM [facility] WBC Fluid 124 0 - 200 x10e6/L 10/22/2021 12:41 PM [facility] RBC Fluid <3,000(H) 0 x10e6/L 10/22/2021 12:41 PM [facility] Crystal Exam Fluid Crystal examination to follow. 10/22/2021 12:41 PM [facility] Differential Manual Differential to follow. 10/22/2021 12:41 PM [facility] Fluid SYNOVIAL FLUID / Unknown Collection / Unknown 10/22/2021 12:03 PM CDT 10/22/2021 12:09 PM CDT Narrative [facility] - 10/22/2021 12:41 PM CDT No reference ranges established for body fluid cell counts. The reference ranges provided are derived from published literature. The test results must be integrated into the clinical context for interpretation. Enrico Woodward III, MD LAB - BODY FL UID ORDERABLES [facility] [address] [place] [address], [facility] [phone] * XR PELVIS W RIGHT HIP 2VW (10/22/2021 11:00 AM CDT) Anatomical Region Laterality Modality Pelvis Radiographic Kathleen ging 10/22/2021 11:1 1 AM CDT Impressions 10/22/2021 11:23 AM CDT FINDINGS/IMPRESSION: There are mild degenerative changes of the right hip with acetabular sclerosis, joint space narrowing and small osteophytes. A calcified lesion is present in the pelvis - possibly representing a teratoma. Dr. CHASE Santana MD, FRKHUSHBOO have personally reviewed and interpreted this examination/study. This report was electronically signed by CHAES CANALES MD, FRCR on 10/22/2021 11:23 AM . Narrative 10/22/2021 11:23 AM CDT EXAMINATION: XR PELVIS W RIGHT HIP 2VW DATE: 10/22/2021 11:00 AM HISTORY: M79.604: Pain in both lower extremities M79.605: Pain in both lower extremities COMPARISON: No prior study is available for comparison. Procedure Note Chase Canales MD - 10/22/2021 EXAMINATION: XR PELVIS W RIGHT HIP 2VW DATE: 10/22/2021 11:00 AM HISTORY: M79.604: Pain in both lower extremities M79.605: Pain in both lower extremities COMPARISON: No prior study is available for comparison. FINDINGS/IMPRESSION: There are mild degenerative changes of the right hip with acetabular sclerosis, joint space narrowing and small osteophytes. A calcifiedlesion is present in the pelvis - possibly representing a teratoma. Dr. CHASE Santana MD, FRKHUSHBOO have personally reviewedand interpreted this examination/study. This report was electronically signed by CHASE CANALES MD, FRCR on 10/22/2021 11:23 AM . Enrico Woodward III, MD DIAGNOSTIC IM AGING ORDERABLES * XR KNEE RIGHT 4VW OR MORE (10/22/2021 10:57 AM CDT) Anatomical Region Laterality Modality Lower Extremity Radiographic Kathleen ging 10/22/2021 11:1 3 AM CDT Impressions 10/22/2021 11:14 AM CDT Findings/Impression: No acute fractures or dislocations are seen. 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 Osteoarthritic changes are also identified at the patellofemoral joint associated with chondromalacia changes. No significant joint effusion. This report was electronically signed by CHASE CANALES MD [facility] on 10/22/2021 11:14 AM . Narrative 10/22/2021 11:14 AM CDT Examination: XR KNEE RIGHT 4VW OR MORE History: M79.604: Pain in both lower extremities M79.605: Pain in both lower extremities Comparison:Pain. Procedure Note Chase Canales MD - 10/22/2021 Examination: XR KNEE RIGHT 4VW OR MORE History: M79.604: Pain in both lower extremities M79.605: Pain in both lower extremities Comparison:Pain. Findings/Impression: No acute fractures or dislocations are seen. 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 Osteoarthritic changes are also identified at the patellofemoral joint associated with chondromalacia changes. No significant joint effusion. This report was electronically signed by CHASE CANALES MD [facility] on 10/22/2021 11:14 AM . Enrico Woodward III, MD DIAGNOSTIC IM AGING ORDERABLES * XR KNEE LEFT 4VW OR MORE (10/22/2021 10:57 AM CDT) Anatomical Region Laterality Modality Lower Extremity Radiographic Kathleen ging 10/22/2021 11:1 2 AM CDT Impressions 10/22/2021 11:13 AM CDT Findings/Impression: No acute fractures or dislocations seen. Mild narrowing of joint space noted predominantly along the lateral side. Suggestion of chondrocalcinosis is seen. No joint effusion identified. Minimal osteoarthritis changes are seen at the patellofemoral joint. This report was electronically signed by CHASE CANALES MD, [facility] on 10/22/2021 11:13 AM . Narrative 10/22/2021 11:13 AM CDT Examination: XR KNEE LEFT 4VW OR MORE History: M79.604: Pain in both lower extremities M79.605: Pain in both lower extremities Comparison:None. Procedure Note Chase Canales MD - 10/22/2021 Examination: XR KNEE LEFT 4VW OR MORE History: M79.604: Pain in both lower extremities M79.605: Pain in both lower extremities Comparison:None. Findings/Impression: No acute fractures or dislocations seen. Mild narrowing of joint space noted predominantly along the lateral side. Suggestion of chondrocalcinosis is seen. No joint effusion identified. Minimal osteoarthritis changes are seen at the patellofemoral joint. This report was electronically signed by CHASE CANALES MD, [facility] on 10/22/2021 11:13 AM . Enrico Woodward III, MD DIAGNOSTIC IM AGING ORDERABLES * LAB RESULTS ORDER (08/31/2021) Only the most recent of2 resultswithin the time period is included. Narrative 08/31/2021 Ordered by an unspecified provider. Scanned Document LAB - THERAPEUTIC DR LAU MONITORING ORDERABLES * EP INSERT SC OR DC PACER ICD PG (08/16/2021 10:40 AM CDT) Narrative [facility] - 08/16/2021 10:51 AM CDT This procedure was performed by a Cardiac Overhead Cleaner in the EP lab. Please see the Op Note or Procedures Note placed by Electrophysiology. Bharathi Higuera MD ELECTROPHYS RADIANT [facility] * NM DESTRUCT BENIGN LESION, 1-14 (08/05/2021 2:13 PM CDT) Narrative Josy Helton MD - 08/05/2021 2:13 PM CDT Dominic Hines MD 08/05/2021 2:13 PM Diagnosis and treatment options discussed. Cryotherapy (Liquid Nitrogen) to iSK x 2 on face x 6-10 seconds each. Number of cycles: 1. Wound care reviewed. Josy Helton MD PROCEDURE/SHANNON R SURGICAL ORDERABLES * (ABNORMAL) PT-INR [facility] (08/02/2021 8:39 AM CDT) Only the most recent of3 resultswithin the time period is included. PT 17.6(H) 12.1 - 14.8 Seconds 08/02/2021 9:24 AM CDT [facility] INR 1.5 See Comment 08/02/2021 9:24 AM CDT [facility] Comment:The suggested therap eutic range for standard coumadin (warfarin) therapy is an INR of 2.0-3.0. For high-risk patients (Mechanical Mitral Valve Prosthesis, etc.), the suggested prophylactic therapeutic range is an INR of 2.5-3.5. Blood BLOOD SPECIMEN / Unknown Lab Venipuncture / Unknown 08/02/2021 8:39 AM CDT 08/02/2021 9:06 AM CDT Bharathi Higuera MD LAB - COAGULATION OR DERABLES [facility] [address] [place] [address], [facility] [phone] * HEAVY METALS URINE RANDOM PANEL (07/29/2021 11:43 AM CDT) Arsenic ug/g Creat Urine 33 mcg/g cr [facility] Comment: Reference Range: Nonexposed Adult: < or = 35 mcg/g creatinine Biological Exposure Index (end of shift/work week): < or = 50 mcg/g creatinine This test was developed and its analytical performance characteristics have been determined by [facility] [place], [place]. It has not been cleared or approved by the U.S. Food and Drug Administration. This assay has been validated pursuant to the CLIA regulations and is used for clinical purposes. Lead Random Urine None Detected mcg/g creat [facility] Comment: Results are below reportable range for this analyte, which is 10 mcg/L. Reference Range: Nonexposed Adult: <10 mcg/g creatinine This test was developed and its analytical performance characteristics have been determined by [facility] [place], [place]. It has not been cleared or approved by the U.S. Food and Drug Administration. This assay has been validated pursuant to the CLIA regulations and is used for clinical purposes. Mercury ug/g Creat Urine None Detected mcg/g creat [facility] Comment: Results are below reportable range for this analyte, which is 4 mcg/L. Reference Range: Nonexposed Adults: < or = 4 mcg/g creatinine Biological Exposure Index (preshift): < or = 35 mcg/g creatinine This test was developed and its analytical performance characteristics have been determined by [facility] [place], [place]. It has not been cleared or approved by the U.S. Food and Drug Administration. This assay has been validated pursuant to the CLIA regulations and is used for clinical purposes. Creatinine Urine 93 20 - 275 mg/dL [facility] Comment: Test Performed at: [email or web address] [email or web address] NGUYEN RANDOLPH MD,PHD Urine URINE SPECIMEN OBTAINED BY CLEAN CATCH PROCEDURE / Unknown 07/29/2021 11:43 AM CDT 07/29/2021 11:44 AM CDT Gaurang Harman MD LAB - URINE CHEMISTR Y ORDERABLES [facility] [address] [place] [address] * CARDIAC EKG ORDER (07/07/2021 8:54 AM MATERIAL FLOW ANALYST) Only the most recent of10 resultswithin the time period is included. Narrative 07/07/2021 8:54 AM MATERIAL FLOW ANALYST Ordered by an unspecified provider. Scanned Document CARDIAC SERVICES ORD ERABLES * CT HEAD WO CONTRAST (07/04/2021 12:20 PM MATERIAL FLOW ANALYST) Only the most recent of2 resultswithin the time period is included. Anatomical Region Laterality Modality Head Computed Tomogra phy 07/04/2021 12:5 9 PM MATERIAL FLOW ANALYST Impressions 07/05/2021 7:45 AM MATERIAL FLOW ANALYST IMPRESSION: No acute intracranial abnormality. Dictated by Feliberto Abreu D.O. (Circular Saw Edge Fuser) I, Dr. KATIA SCHERER have personally reviewed and interpreted this examination/study. This report was electronically signed by KATIA SCHERER on 07/05/2021 7:45 AM . Narrative 07/05/2021 7:[address] HEAD WO CONTRAST EXAMINATION: Computed tomography (CT) of the head without contrast DATE: 07/04/2021 12:20 PM HISTORY: R07.9: Chest pain, unspecified type R00.2: Palpitations TECHNIQUE: CT of the head was performed without contrast according to standard protocol. COMPARISON: CT of the head dated 03/31/2020 FINDINGS: No acute intra- or extra-axial fluid collections are identified. There is mild cerebral volume loss with associated ex vacuo ventricular dilatation. The basilar cisterns are patent. No mass effect or midline shift is seen. No significant parenchymal volume loss is noted. Mild periventricular white matter hypoattenuation is indicative of chronic small vessel ischemic disease. No acute calvarial fracture is identified. The orbits appear normal. There is mild paranasal sinus disease. The mastoid air cells are clear. No soft tissue abnormality is identified. Procedure Note Katia Scherer MD - 07/05/2021 CT HEAD WO CONTRAST EXAMINATION: Computed tomography (CT) of the head without contrast DATE: 07/04/2021 12:20 PM HISTORY: R07.9: Chest pain, unspecified type R00.2: Palpitations TECHNIQUE: CT of the head was performed without contrast according to standard protocol. COMPARISON: CT of the head dated 03/31/2020 FINDINGS: No acute intra- or extra-axial fluid collections are identified. Thereis mild cerebral volume loss with associated ex vacuo ventriculardilatation. The basilar cisterns are patent. No mass effect or midline shift isseen. No significant parenchymal volume loss is noted. Mild periventricular white matter hypoattenuation is indicative of chronic small vessel ischemic disease. No acute calvarial fracture is identified. The orbits appear normal. There is mild paranasal sinus disease. The mastoid air cells are clear. No soft tissue abnormality is identified. IMPRESSION: No acute intracranial abnormality. Dictated by Feliberto Abreu D.O. (Circular Saw Edge Fuser) I, Dr. KATIA SCHERER have personally reviewed and interpreted this examination/study. This report was electronically signed by KATIA SCHERER on 07/05/2021 7:45AM . Dimas Keating DO CT ORDERABLES * EKG 12-LEAD (07/04/2021 7:53 AM MATERIAL FLOW ANALYST) Only the most recent of5 resultswithin the time period is included. Pathologist [facility] Ventricular Rate 100 BPM [facility] Atrial Rate 100 BPM [facility] P-R Interval 216 ms [facility] QRS Duration ms 112 ms [facility] Q-T Interval ms 352 ms [facility] QTC Calculation (Bezet) 454 ms [facility] Calculated P [place] 88 degrees [facility] Calculated R [place] -84 degrees [facility] Calculated T [place] 71 degrees [facility] Interpretation EKG ATRIAL FLUTTER WITH 2:1 A-V CONDUCTION LEFT AXIS DEVIATION MINIMAL VOLTAGE CRITERIA FOR LVH, MAY BE NORMAL VARIANT ( Danial product ) ABNORMAL ECG WHEN COMPARED WITH ECG OF 03-JUL-2021 15:10, (RBBB AND LEFT ANTERIOR FASCICULAR BLOCK) IS NO LONGER PRESENT Confirmed by Bharathi Higuera ([id number]) on 07/06/2021 1:00:56 PM [facility] 07/04/2021 7:53 AM MATERIAL FLOW ANALYST 07/06/2021 1:00 PM MATERIAL FLOW ANALYST Hilton Connolly MD ECG ORDERABLES [facility] * (ABNORMAL) TROPONIN I (07/04/2021 7:10 AM MATERIAL FLOW ANALYST) Only the most recent of5 resultswithin the time period is included. Pathologist [facility] Troponin I 0.100(H) <0.032 ng/mL 07/04/2021 7:44 AM MATERIAL FLOW ANALYST [facility] Blood BLOOD SPECIMEN / Unknown Venipuncture / Unknown 07/04/2021 7:10 AM MATERIAL FLOW ANALYST 07/04/2021 7:16 AM MATERIAL FLOW ANALYST Dimas Keating DO LAB - CHEMISTRY OR DERABLES Performing Organization Address [facility]/ZIP Co de Phone Number [address] [address], [facility] [phone] * PHOSPHORUS BLOOD (07/04/2021 3:56 AM MATERIAL FLOW ANALYST) Phosphorus 3.7 2.9 - 5.1 mg/dL 07/04/2021 4:32 AM MATERIAL FLOW ANALYST [facility] Blood BLOOD SPECIMEN / Unknown Venipuncture / Unknown 07/04/2021 3:56 AM MATERIAL FLOW ANALYST 07/04/2021 4:08 AM MATERIAL FLOW ANALYST Rex Leonard MD LAB - CHEMISTRY ORD ERABLES Performing Organization Address [facility] Co de Phone Number [address] [address], [place] [phone] * MAGNESIUM BLOOD (07/04/2021 3:56 AM MATERIAL FLOW ANALYST) Only the most recent of2 resultswithin the time period is included. Magnesium 1.9 1.6 - 2.6 mg/dL 07/04/2021 4:32 AM MATERIAL FLOW ANALYST [facility] Blood BLOOD SPECIMEN / Unknown Venipuncture / Unknown 07/04/2021 3:56 AM MATERIAL FLOW ANALYST 07/04/2021 4:08 AM MATERIAL FLOW ANALYST Rex Leonard MD LAB - CHEMISTRY ORD ERABLES Performing Organization Address [facility]/ZIP Co de Phone Number [address] [address], [place] [phone] * 24 HOUR BLOOD PRESSURE MONITORING (04/16/2021) Ciara Huitron MD CARDIAC SERVICES O RDERABLES * US KIDNEY WITH DOPPLER COMPLETE (04/14/2021 8:54 AM MATERIAL FLOW ANALYST) Anatomical Region Laterality Modality Abdomen Ultrasound 04/14/2021 8:49 AM MATERIAL FLOW ANALYST Impressions 04/14/2021 9:31 AM MATERIAL FLOW ANALYST IMPRESSION: 1. Slightly small right kidney. No evidence of nephrolithiasis, hydronephrosis, or solid renal mass. 2. Patent renal vasculature without secondary signs of renal artery stenosis. Dictated by Vero Saenz MD (vice president residential solar sales). I, Dr. ANNA COCHRAN M.D. have personally reviewed and interpreted this examination/study. This report was electronically signed by ANNA COCHRAN M.D. on 04/14/2021 9:31 AM . Narrative 04/14/2021 9:31 AM MATERIAL FLOW ANALYST EXAMINATION: 1. Complete retroperitoneal sonogram 2. Color and spectral Doppler evaluation of the renal vasculature HISTORY: I10: Essential hypertension R09.89: Labile hypertension R31.29: Microscopic hematuria COMPARISON: No prior study is available for comparison. FINDINGS: Retroperitoneum: Right kidney: 8.3 x 4.4 x 4.7 cm. Volume = 88.6 mL Left kidney: 9.6 x 4.6 x 4.6 cm. Volume = 106 mL Renal parenchymal echogenicity is normal. There is no evidence of a solid renal mass, renal calculi, or hydronephrosis. The bladder is distended. Renal Doppler: Arcuate arterial waveforms in both kidneys demonstrate brisk systolic upstrokes. While the renal arteries were not interrogated in their entirety, the visible portions display normal arterial waveforms and velocities. Resistive indices: Right superior kidney: 0.75 Acceleration time: 0.05 seconds Right mid kidney: 0.78 Acceleration time: 0.05 seconds Right inferior kidney: 0.69 Acceleration time: 0.05 seconds Right renal artery: 0.81 Left superior kidney: 0.72 Acceleration time: 0.04 seconds Left mid kidney: 0.77 Acceleration time: 0.04 seconds Left inferior kidney: 0.76 Acceleration time: 0.05 seconds Left renal artery: 0.83 Procedure Note Anna Cochran MD - 04/14/2021 EXAMINATION: 1. Complete retroperitoneal sonogram 2. Color and spectral Doppler evaluation of the renal vasculature HISTORY: I10: Essential hypertension R09.89: Labile hypertension R31.29: Microscopic hematuria COMPARISON: No prior study is available for comparison. FINDINGS: Retroperitoneum: Right kidney: 8.3 x 4.4 x 4.7 cm. Volume = 88.6 mL Left kidney: 9.6 x 4.6 x 4.6 cm. Volume = 106 mL Renal parenchymal echogenicity is normal. There is no evidence of asolid renal mass, renal calculi, or hydronephrosis. The bladder is distended. Renal Doppler: Arcuate arterial waveforms in both kidneys demonstrate brisk systolic upstrokes. While the renal arteries were not interrogated in their entirety, the visible portions display normal arterial waveforms and velocities. Resistive indices: Right superior kidney: 0.75 Acceleration time: 0.05 seconds Right mid kidney: 0.78 Acceleration time: 0.05 seconds Right inferior kidney: 0.69 Acceleration time: 0.05 seconds Right renal artery: 0.81 Left superior kidney: 0.72 Acceleration time: 0.04 seconds Left mid kidney: 0.77 Acceleration time: 0.04 seconds Left inferior kidney: 0.76 Acceleration time: 0.05 seconds Left renal artery: 0.83 IMPRESSION: 1. Slightly small right kidney. No evidence of nephrolithiasis, hydronephrosis, or solid renal mass. 2. Patent renal vasculature without secondary signs of renal artery stenosis. Dictated by Vero Saenz MD (vice president residential solar sales). I, Dr. ANNA COCHRAN M.D. have personally reviewed and interpreted this examination/study. This report was electronically signed by ANNA COCHRAN M.D. on 04/14/2021 9:31 AM . Ciara Huitron MD ORDERABLES * (ABNORMAL) URINALYSIS W/MICROSCOPIC REFLEX TO CULTURE (04/14/2021 8:54 AM MATERIAL FLOW ANALYST) Color UA Straw Straw, Yellow 04/14/2021 9:47 AM [facility] Clarity UA Clear Clear 04/14/2021 9:47 AM [facility] Specific Bad Axe UA 1.010 1.005 - 1.030 04/14/2021 9:47 AM [facility] pH UA 7.0 5.0 - 8.0 pH 04/14/2021 9:47 AM [facility] Protein UA Negative Negative 04/14/2021 9:47 AM [facility] Glucose UA Negative Negative 04/14/2021 9:47 AM [facility] Ketone UA Negative Negative 04/14/2021 9:47 AM [facility] Bilirubin UA Negative Negative 04/14/2021 9:47 AM [facility] Blood UA 2+(A) Negative 04/14/2021 9:47 AM [facility] Nitrite UA Negative Negative 04/14/2021 9:47 AM [facility] Leukocyte Esterase 1+(A) Negative 04/14/2021 9:47 AM [facility] Urobilinogen UA Negative Negative mg/dL 04/14/2021 9:47 AM [facility] RBC UA 21-50(A) None Seen, 0-2, 3-5 /HPF 04/14/2021 9:47 AM [facility] WBC UA 0-5 None Seen, 0-5 /HPF 04/14/2021 9:47 AM [facility] Squamous Epithelial Cells UA 0-2 None Seen, 0-2, 3-5 /HPF 04/14/2021 9:47 AM [facility] Urine URINE SPECIMEN OBTAINED BY CLEAN CATCH PROCEDURE / Unknown Collection / Unknown 04/14/2021 8:54 AM [facility] 04/14/2021 9:31 AM [facility] - 04/14/2021 9:47 AM [facility] Lab Status, Culture Reflex Indicated. Ciara Huitron MD LAB - URINALYSIS O RDERABLES [facility] [address] [place] [address], [facility] [phone] * MICROALB/CREAT RATIO URINE RANDOM PANEL (04/14/2021 8:54 AM [facility]) Albumin Random Urine 7.1 Not Established ug/mL 04/14/2021 10:10 AM [facility] Creatinine Urine 41 Not Established mg/dL 04/14/2021 10:10 AM [facility] Urine Albumin/Creati nine Ratio 17 <30 mg/g 04/14/2021 10:10 AM [facility] Urine URINE SPECIMEN OBTAINED BY CLEAN CATCH PROCEDURE / Unknown Collection / Unknown 04/14/2021 8:54 AM MATERIAL FLOW ANALYST 04/14/2021 9:35 AM MATERIAL FLOW ANALYST Ciara Huitron MD LAB - URINE CHEMIS TRY ORDERABLES Performing Organization Address City/[facility]/ZIP Co de Phone Number [facility] [address] [place] [address], [facility] [phone] * CULTURE URINE (04/14/2021 8:54 AM MATERIAL FLOW ANALYST) Only the most recent of4 resultswithin the time period is included. Pathologist [facility] Culture Urine <10,000 CFU/mL urogenital devendra RICHIE 04/15/2021 2:36 PM MATERIAL FLOW ANALYST [facility] MICROBIOLOGY Urine URINE SPECIMEN OBTAINED BY CLEAN CATCH PROCEDURE / Unknown Collection / Unknown 04/14/2021 8:54 AM MATERIAL FLOW ANALYST 04/14/2021 9:42 AM MATERIAL FLOW ANALYST Ciara Huitron MD LAB - MICROBIOLOGY ORDERABLES Performing Organization Address City/[facility]/ZIP Co de Phone Number [facility] MICROBIOLOGY [address] [place], [place] [address] [phone] * (ABNORMAL) RENAL FUNCTION PANEL (04/14/2021 8:54 AM MATERIAL FLOW ANALYST) Only the most recent of2 resultswithin the time period is included. BUN 21 7 - 26 mg/dL 04/14/2021 10:04 AM [facility] Creatinine 1.00(H) 0.56 - 0.96 mg/dL 04/14/2021 10:04 AM [facility] Sodium 140 136 - 145 mmol/L 04/14/2021 10:04 AM [facility] Potassium 4.4 3.5 - 4.5 mmol/L 04/14/2021 10:04 AM [facility] Chloride 102 98 - 107 mmol/L 04/14/2021 10:04 AM [facility] CO2 27 22 - 29 mmol/L 04/14/2021 10:04 AM [facility] Glucose 87 70 - 115 mg/dL 04/14/2021 10:04 AM [facility] Albumin 3.9 3.4 - 5.0 g/dL 04/14/2021 10:04 AM [facility] Calcium 9.9 8.4 - 10.2 mg/dL 04/14/2021 10:04 AM [facility] Phosphorus 3.6 2.9 - 5.1 mg/dL 04/14/2021 10:04 AM [facility] Anion Gap 15 8 - 18 04/14/2021 10:04 AM [facility] BUN/Creatinine Ratio 21 7 - 23 04/14/2021 10:04 AM [facility] Osmolality Calculated 292 270 - 300 mOsm/kg 04/14/2021 10:04 AM [facility] eGFR by CKD-EPI 53(L) >=90 mL/min/1.7 3 m2 04/14/2021 10:04 AM [facility] Blood BLOOD SPECIMEN / Unknown Lab Venipuncture / Unknown 04/14/2021 8:54 AM MATERIAL FLOW ANALYST 04/14/2021 9:34 AM MATERIAL FLOW ANALYST Ciara Huitron MD LAB - CHEMISTRY OR DERABLES [facility] [address] [place] [phone], [facility] [phone] * PROC EKG IN CLINIC (02/11/2021 12:08 PM CDT) Only the most recent of6 resultswithin the time period is included. Narrative Bharathi Higuera MD - 02/11/2021 12:08 PM CDT Bharathi Higuera MD 02/11/2021 12:08 PM Ectopic atrial rhythm HR 60 bpm Bharathi Higuera MD ECG ORDERABLES * ACTH (02/01/2021 7:03 AM CDT) ACTH 23 6 - 50 pg/mL [facility] Comment: Reference range applies only to specimens collected between 7am-10am. Test Performed at: [email or web address]/[address] NGUYEN RANDOLPH MD,PHD Blood BLOOD SPECIMEN / Unknown 02/01/2021 7:03 AM CDT 02/01/2021 7:04 AM CDT Santiago Banuelos MD LAB - CHEMISTRY ORD ERABLES Performing Organization Address [facility] [place] [address] * RENIN ACTIVITY (02/01/2021 7:03 AM CDT) [facility] Plasma Renin Activity 2.37 0.25 - 5.82 ng/mL/h [facility] Comment: This test was developed and its analytical performance characteristics have been determined by [facility]. It has not been cleared or approved by [facility]. This assay has been validated pursuant to the CLIA regulations and is used for clinical purposes. Test Performed at: [employer] [address] [address] RAN TRIMBLE MD,PHD,MAXIMILIANO Blood BLOOD SPECIMEN / Unknown 02/01/2021 7:03 AM CDT 02/01/2021 7:04 AM CDT Santiago Banuelos MD LAB - CHEMISTRY ORD ERABLES Performing Organization Address [facility] de Phone Number [place] [phone] [place] [address] * ALDOSTERONE BLOOD (02/01/2021 7:03 AM CDT) [facility] Aldosterone 4 ng/dL [facility] Comment: Adult Reference Ranges for Aldosterone: Upright 8:00-10:00 am < or = 28 ng/dL Upright 4:00-6:00 pm < or = 21 ng/dL Supine 8:00-10:00 am 3-16 ng/dL This test was developed and its analytical performance characteristics have been determined by [facility]. It has not been cleared or approved by [facility]. This assay has been validated pursuant to the CLIA regulations and is used for clinical purposes. Test Performed at: [employer] [place] [address] [place] [address] RAN TRIMBLE MD,PHD,MAXIMILIANO Blood BLOOD SPECIMEN / Unknown 02/01/2021 7:03 AM CDT 02/01/2021 7:04 AM CDT Santiago Banuelos MD LAB - CHEMISTRY ORD ERABLES Performing Organization Address [facility] [place] [address] * SODIUM URINE RANDOM (02/01/2021 7:03 AM CDT) Sodium Urine 43 28 - 272 mmol/L [facility] Comment: Test Performed at: [employer] [id number] [facility] [place] [address] ENRICO WYNN DO,MPH Urine URINE SPECIMEN OBTAINED BY CLEAN CATCH PROCEDURE / Unknown 02/01/2021 7:03 AM CDT 02/01/2021 7:04 AM CDT Santiago Banuelos MD LAB - URINE FARM DEMONSTRATOR RY ORDERABLES Performing Organization Address [facility] de Phone Number [facility] [phone] [place], [place] [phone] * CREATININE URINE RANDOM (02/01/2021 7:03 AM CDT) Pathologist [facility] Creatinine Urine 55 20 - 275 mg/dL [facility] Comment: Test Performed at: [employer] [address] [place] [address] ENRICO WYNN DO,MPH Urine URINE SPECIMEN OBTAINED BY CLEAN CATCH PROCEDURE / Unknown 02/01/2021 7:03 AM CDT 02/01/2021 7:04 AM CDT Santiago Banuelos MD LAB - URINE FARM DEMONSTRATOR RY ORDERABLES Performing Organization Address [facility] [place] [address] * TSH (02/01/2021 7:03 AM CDT) Only the most recent of4 resultswithin the time period is included. TSH 3.79 0.40 - 4.50 mIU/L [facility] Comment: Test Performed at: [employer] [address] [employer] [facility] [place] [address] ENRICO WYNN DO,MPH Blood BLOOD SPECIMEN / Unknown 02/01/2021 7:03 AM CDT 02/01/2021 7:04 AM CDT Santiago Banuelos MD LAB - CHEMISTRY ORD ERABLES Performing Organization Address [facility] [place] [address] * CORTISOL BLOOD AM (02/01/2021 7:03 AM CDT) Cortisol AM 19.2 mcg/dL [facility] Comment: Reference Range 8 a.m. (7-9 a.m.) Specimen: 4.0-22.0 REPORT COMMENT: FASTING:YES Test Performed at: [employer] [id number] [facility] [place] [address] ENRICO WYNN DO,MPH Blood BLOOD SPECIMEN / Unknown 02/01/2021 7:03 AM CDT 02/01/2021 7:04 AM CDT Santiago Banuelos MD LAB - CHEMISTRY ORD ERABLES Performing Organization Address [facility] [place] [address] * NM US SOFT TISS HEAD&NCK R-T IMG (01/29/2021 3:46 PM CDT) Narrative Santiago Banuelos MD - 01/29/2021 3:46 PM CDT Santiago Banuelos MD 01/29/2021 3:58 PM Ultrasound Of Thyroid Ultrasound of the Thyroid PHYSICIAN Santiago Banuelos MD FELLOW Tatiana ANDERSON Test Date: 01/29/2021 Test Indication: Patient Active Problem List: Typical atrial flutter Thyroid nodule Goiter, nontoxic, multinodular Seasonal allergies Essential hypertension Referring Physician: Dr. Kristen Graf, SECURITY SERVICES MANAGER-SURG PHYSICIAN ASST Procedure Preformed: Ultrasound Only COMPARED TO; 07/23/2020 Nodule Size: RIGHT LOBE TRANSVERSE IMAGE: SOLID, HETEROGENEOUS, ISOECHOIC, HALO, LOWER POLE, SOME CYSTIC SPACES, VASCULARITY IN HALO, 2.20 X 1.60 CM LONGITUDINAL IMAGE: 2.47 X 1.66 CM LEFT LOBE TRANSVERSE IMAGE: UPPER POLE, HYPOECHOIC CYST, 0.44 X 0.25 CM LONGITUDINAL IMAGE: 0.36 X 0.28 CM Echogenicity: HETEROGENEOUS ECHOIC TEXTURE TO BOTH LOBES Vascularity: NOT INCREASED OR ABNORMAL Number of Nodules Present: 2 Calcifications: NONE Borders: SHARP RIGHT LOBE TRANSVERSE IMAGE: 2.14 X 1.59 CM LONGITUDINAL IMAGE: 5.07 CM ISTHMUS: 0.28 CM LEFT LOBE TRANSVERSE IMAGE: 1.71 X 1.26 CM LONGITUDINAL IMAGE: 4.19 X 1.62 CM ASSESSMENT NO CHANGE IN ULTRASOUND APPEARANCE SLIGHT CHANGE IN NODULE SIZE EUTHYROID Recommendations: PLAN LAB SOON AFTER OVER NIGHT FAST, WATER ONLY, FIRST THING IN AM THYROID ULTRASOUND TODAY AT LEAST ANNUAL TSH RETURN IN ONE YEAR ULTRASOUND IN ONE YEAR MIGHT NEED COSYNTROPIN STIMULATION TEST MIGHT NEED A MORE LIBERAL SALT DIET WILL NEED LABS TO DETERMINE NEXT STEP IN EVALUATION OF LOW SODIUM Santiago Banuelos MD Division of Endocrinology Santiago Banuelos MD PROCEDURE/MINOR KASH GICAL ORDERABLES * (ABNORMAL) URINALYSIS W/MICROSCOPIC NO CULTURE (01/02/2021 8:39 AM [facility]) Only the most recent of5 resultswithin the time period is included. Color UA Straw Straw, Yellow 01/02/2021 9:01 AM [facility] Clarity UA Clear Clear 01/02/2021 9:01 AM [facility] Specific Bad Axe UA 1.010 1.005 - 1.030 01/02/2021 9:01 AM [facility] pH UA 6.0 5.0 - 8.0 pH 01/02/2021 9:01 AM [facility] Protein UA Negative Negative 01/02/2021 9:01 AM [facility] Glucose UA Negative Negative 01/02/2021 9:01 AM [facility] Ketone UA Negative Negative 01/02/2021 9:01 AM [facility] Bilirubin UA Negative Negative 01/02/2021 9:01 AM [facility] Blood UA 3+(A) Negative 01/02/2021 9:01 AM [facility] Nitrite UA Negative Negative 01/02/2021 9:01 AM [facility] Leukocyte Esterase Negative Negative 01/02/2021 9:01 AM CDT [facility] Urobilinogen UA Negative Negative mg/dL 01/02/2021 9:01 AM CDT [facility] RBC UA 21-50(A) None Seen, 0-2, 3-5 /HPF 01/02/2021 9:01 AM CDT [facility] WBC UA 0-5 None Seen, 0-5 /HPF 01/02/2021 9:01 AM CDT [facility] Squamous Epithelial Cells UA 0-2 None Seen, 0-2, 3-5 /HPF 01/02/2021 9:01 AM CDT [facility] Urine URINE SPECIMEN OBTAINED BY CLEAN CATCH PROCEDURE / Unknown Collection / Unknown 01/02/2021 8:39 AM CDT 01/02/2021 8:44 AM CDT Narrative [facility] - 01/02/2021 9:01 AM CDT Areli Curtis MD LAB - URINALYSIS ORD ERABLES [facility] [address] [place] [phone], [facility] [phone] * XR CHEST 2VW (01/02/2021 6:18 AM CDT) Only the most recent of2 resultswithin the time period is included. Anatomical Region Laterality Modality Chest Radiographic Kathleen ging 01/02/2021 8:02 AM CDT Impressions 01/02/2021 7:38 PM CDT FINDINGS/IMPRESSION: There is no focal consolidation, pleural effusion, or pneumothorax. The cardiomediastinal silhouette is normal. The visible bony thorax is intact. A few calcifications in the right lower lobe. Radiopaque objects projecting over the right shoulder are likely external artifact. Report drafted by Sanna Norris M.D. (resident) I, Dr. GIL BERNARD MD have personally reviewed and interpreted this examination/study. This report was electronically signed by GIL BERNARD MD on 01/02/2021 7:38 PM . Narrative 01/02/2021 7:38 PM CDT EXAMINATION: XR CHEST 2VW HISTORY: R00.2: Palpitations COMPARISON: Chest x-ray dated 03/06/2020 Procedure Note Gil Bernard MD - 01/02/2021 EXAMINATION: XR CHEST 2VW HISTORY: R00.2: Palpitations COMPARISON: Chest x-ray dated 03/06/2020 FINDINGS/IMPRESSION: There is no focal consolidation, pleural effusion, or pneumothorax. The cardiomediastinal silhouette is normal. The visible bony thorax isintact. A few calcifications in the right lower lobe. Radiopaque objects projecting over the right shoulder are likely external artifact. Report drafted by Sanna Norris M.D. (resident) I, . GIL BERNARD MD have personally reviewed and interpreted this examination/study. This report was electronically signed by GIL BERNARD MD on01/02/2021 7:38 PM . Ana Hillman SECURITY SERVICES MANAGER-SURG PHYSICIAN ASST DIAGNOSTIC I MAGING ORDERABLES * HEPATIC FUNCTION PANEL (01/02/2021 6:01 AM CDT) Protein Total 6.9 6.0 - 8.3 g/dL 021 6:55 AM T [facility] Albumin 4.1 3.4 - 5.0 g/dL 01/02/2021 6:55 AM [facility] Bilirubin Total 0.8 0.2 - 1.2 mg/dL 12/14 6:55 AM CDT [facility] Bilirubin Conjugated 0.2 0.1 - 0.5 mg/dL 01/02/2021 6:55 AM [facility] Bilirubin Unconjugated 0.6 Unconjugated Bilirubin is a calculated value: Reference ranges have not been established. mg/dL 01/02/2021 6:55 AM T [facility] Alkaline Phosphatase 91 40 - 150 U/L 01/02/2021 6:55 AM T [facility] ALT 13 5 - 55 U/L 01/02/2021 6:55 AM [facility] AST 20 5 - 34 U/L 01/02/2021 6:55 AM CDT [facility] Albumin/Globulin Ratio 1.5 1.1 - 2.3 01/02/2021 6:55 AM CDT [facility] Blood BLOOD SPECIMEN / Unknown Venipuncture / Unknown 01/02/2021 6:01 AM CDT 01/02/2021 6:21 AM CDT Areli Curtis MD LAB - CHEMISTRY BEVERLY DOMINGUEZ Performing Organization Address City/[facility]/ZIP Co de Phone Number [address] [phone], [facility] [phone] * FOLATE (01/02/2021 6:01 AM CDT) Only the most recent of2 resultswithin the time period is included. Folate 14.5 7.0 - 31.4 ng/mL 01/02/2021 7:20 AM CDT [facility] Blood BLOOD SPECIMEN / Unknown Venipuncture / Unknown 01/02/2021 6:01 AM CDT 01/02/2021 6:21 AM CDT Areli Curtis MD LAB - CHEMISTRY BEVERLY DOMINGUEZ Performing Organization Address [facility] Co de Phone Number [address] [phone], [facility] [phone] * ECHO COMPLETE (11/20/2020 9:55 AM CDT) Anatomical Region Laterality Modality Chest Echo 11/20/2020 9:22 AM CDT Narrative Procedure Note Elizabeth Torrez MD - 11/20/2020 Bharathi Higuera MD ECHOCARDIOGRAPHY RAD IANT * METANEPHRINES FRACTIONATED PLASMA (11/20/2020 7:08 AM CDT) Metanephrine Fract Free <25 <=57 pg/mL [facility] Comment: This test was developed and its analytical performance characteristics have been determined by [employer] [place], [place]. It has not been cleared or approved by the U.S. Food and Drug Administration. This assay has been validated pursuant to the CLIA regulations and is used for clinical purposes. Normetanephrine Free 72 <=148 pg/mL [email or web address] Comment: This test was developed and its analytical performance characteristics have been determined by [employer] [place]. It has not been cleared or approved by the U.S. Food and Drug Administration. This assay has been validated pursuant to the CLIA regulations and is used for clinical purposes. Free Metanephrine + Normetanephrine 72 <=205 pg/mL [email or web address] Comment: For additional information, please refer to http://education.[address]/faq/MetFractFree (This link is being provided for informational/educatio informational/educational purposes only.) Elevations >4-fold upper reference range: strongly suggestive of a pheochromocytoma(1). Elevations >1- 4-fold upper reference range: significant but not diagnostic, may be due to medications or stress. Suggest running 24 hr urine fractionated metanephrines and/or serum Chromagranin A for confirmation. Reference: (1)Terri Hammer et al, Plasma Chromogranin A or Urine Fractionated Metanephrines Follow-Up Testing Improves the Diagnostic Accuracy of Plasma Fractionated Metanephrines for Pheochromocytoma. The Journal of Clinical Endocrinology # Metabolism 93(1), 91-95, 2008. This test was developed and its analytical performance characteristics have been determined by [facility] [place] [place]. It has not been cleared or approved by the U.S. Food and Drug Administration. This assay has been validated pursuant to the CLIA regulations and is used for clinical purposes. REPORT COMMENT: FASTING:NO Test Performed at: [email or web address] [place] [id number] [place] [address] NGUYEN RANDOLPH MD,PHD 11/20/2020 7:08 AM CDT 11/20/2020 7:08 AM CDT Santiago Banuelos MD LAB - CHEMISTRY ORD ERABLES [email or web address] [id number] [place] [address] * METANEPHRINES URINE FRACTIONATED (11/20/2020 7:08 AM CDT) Metanephrine Urine 105 21 - 153 mcg/g creat [email or web address] Comment: This test was developed and its analytical performance characteristics have been determined by [facility]. It has not been cleared or approved by FDA. This assay has been validated pursuant to the CLIA regulations and is used for clinical purposes. Normetanephrine Urine 256 108 - 524 mcg/g creat [email or web address] Comment: This test was developed and its analytical performance characteristics have been determined by [employer] [place]. It has not been cleared or approved by FDA. This assay has been validated pursuant to the CLIA regulations and is used for clinical purposes. Metanephrine Total Urine 361 149 - 603 mcg/g creat [email or web address] Comment: A four-fold elevation of urinary normetanephrines is extremely likely due to a tumor, while a four-fold elevation of urinary metanephrines is highly suggestive, but not diagnostic of the tumor. Measurement of plasma Metanephrines and Chromogranin A is recommended for confirmation. This test was developed and its analytical performance characteristics have been determined by [facility]. It has not been cleared or approved by FDA. This assay has been validated pursuant to the CLIA regulations and is used for clinical purposes. Creatinine Urine 29 20 - 275 mg/dL [email or web address] Comment: REPORT COMMENT: FASTING:NO Test Performed at: [email or web address] [facility] [address] [place] [address] RAN TRIMBLE MD,PHD,MAXIMILIANO 11/20/2020 7:08 AM CDT 11/20/2020 7:08 AM CDT Santiago Banuelos MD LAB - URINE FARM DEMONSTRATOR RY ORDERABLES [facility] [address] [place] [address] * NM CYSTOURETHROSCOPY (09/08/2020 1:22 PM CDT) Narrative Kiersten Yepez APRN-SURG PHYSICIAN ASST - 09/08/2020 1:22 PM CDT Kiersten Yepez APRN-CNP 09/08/2020 1:24 PM Cystoscopy procedure note Indication for Procedure: microhematuria Description: Pt placed on the procedure table in The supine/lithotomy position. she was prepped/draped in standard fashion. Pt correctly identified and time out performed. A flexible cystoscope was introduced per urethra withthe following findings. Urethra: Normal caliber, no stricture. No masses. Urethral sphincter with good coaptation Bladder neck patent without contracture Trigone - UO's orthotopic bilaterally. Clear efflux seen from both ureteral orifices. Mucosa normal without lesion Bladder - normal mucosa without tumor/stone/erythema. No FB present. No trabeculation. No cellules or diverticula. No fistula. Scope was retroflexed to assess entire surface of bladder. IMPRESSION: Normal exam of the bladder PLAN: FU PRN JEFF Sosa Kiersten AGUILAR PROCEDURE/MIN OR SURGICAL ORDERABLES * URINALYSIS AUTO - POINT OF CARE (AMB) [facility] (09/08/2020) Only the most recent of2 resultswithin the time period is included. Glucose UA neg Bilirubin UA POCT neg Ketones UA POCT neg Specific Bad Axe UA 1.015 Blood Urine POCT 80Ery/uL pH UA 6.0 Protein UA neg Urobilinogen UA 0.2 mg/dL Nitrite UA neg WBC UA neg Urine URINE / Unknown 09/08/2020 Kiersten AGUILAR LAB - POINT O F CARE ORDERABLES * XR THORACIC SPINE 2VW (08/24/2020 12:03 PM CDT) Anatomical Region Laterality Modality Spine Radiographic Kathleen ging 08/24/2020 1:49 PM CDT Impressions 08/24/2020 1:57 PM CDT IMPRESSION: 1.No fracture or significant subluxation. 2.Multilevel degenerative changes, greatest in the lumbar spine, as detailed above. Dictated by Bessy Chang DO (resident). I, Dr. SHANTI GUZMAN have personally reviewed and interpreted this examination/study. This report was electronically signed by SHANTI GUZAMN on 08/24/2020 1:57 PM . Narrative 08/24/2020 1:57 PM CDT ORDER DATE: 08/24/2020 12:03 PM EXAMINATION: XR THORACIC SPINE 2VW, XR LUMBAR SPINE 2 OR 3VW HISTORY: M54.10: Radiculopathy, unspecified spinal region COMPARISON: MRI thoracic and lumbar spine 05/25/2020, entire spine radiographs from 05/20/2020 FINDINGS: Thoracic spine: There is minimal levocurvature centered at T8. There is no subluxation. There is no fracture or compression deformity. The intervertebral disc spaces are maintained with mild endplate sclerosis and osteophytes. Lumbar spine: There is mild dextrocurvature centered at L2. There is slight subluxation of L5 on S1. There is straightening of the lumbar lordosis. There is no fracture or compression deformity. There is a large bridging anterior osteophyte from L5 to S1. There are multilevel degenerative disc and joint changes with varying degrees of disc space narrowing and moderate facet hypertrophy. The sacroiliac joints are intact. Procedure Note Shanti Guzman DO - 08/24/2020 ORDER DATE: 08/24/2020 12:03 PM EXAMINATION: XR THORACIC SPINE 2VW, XR LUMBAR SPINE 2 OR 3VW HISTORY: M54.10: Radiculopathy, unspecified spinal region COMPARISON: MRI thoracic and lumbar spine 05/25/2020, entire spine radiographs from 05/20/2020 FINDINGS: Thoracic spine: There is minimal levocurvature centered at T8. There is no subluxation. There is no fracture or compression deformity. The intervertebral disc spaces are maintained with mild endplate sclerosis and osteophytes. Lumbar spine: There is mild dextrocurvature centered at L2. There is slightsubluxation of L5 on S1. There is straightening of the lumbar lordosis. There is no fracture or compression deformity. There is a large bridging anterior osteophyte from L5 to S1. There are multilevel degenerative disc andjoint changes with varying degrees of disc space narrowing and moderate facet hypertrophy. The sacroiliac joints are intact. IMPRESSION: 1.No fracture or significant subluxation. 2.Multilevel degenerative changes, greatest in the lumbar spine, as detailed above. Dictated by Bessy Chang DO (resident). I, Dr. SHANTI GUZMAN have personally reviewed and interpreted this examination/study. This report was electronically signed by SHANTI GUZMAN on 08/24/2020 1:57 PM . Lisa Barakat MD DIAGNOSTIC IMAGING O RDERABLES * XR LUMBAR SPINE 2 OR 3VW (08/24/2020 12:03 PM CDT) Anatomical Region Laterality Modality Spine Radiographic Kathleen ging 08/24/2020 1:49 PM CDT Impressions 08/24/2020 1:57 PM CDT IMPRESSION: 1.No fracture or significant subluxation. 2.Multilevel degenerative changes, greatest in the lumbar spine, as detailed above. Dictated by Bessy Chang DO (resident). I, Dr. SHANTI GUZMAN have personally reviewed and interpreted this examination/study. This report was electronically signed by SHANTI GUZMAN on 08/24/2020 1:57 PM . Narrative 08/24/2020 1:57 PM CDT ORDER DATE: 08/24/2020 12:03 PM EXAMINATION: XR THORACIC SPINE 2VW, XR LUMBAR SPINE 2 OR 3VW HISTORY: M54.10: Radiculopathy, unspecified spinal region COMPARISON: MRI thoracic and lumbar spine 05/25/2020, entire spine radiographs from 05/20/2020 FINDINGS: Thoracic spine: There is minimal levocurvature centered at T8. There is no subluxation. There is no fracture or compression deformity. The intervertebral disc spaces are maintained with mild endplate sclerosis and osteophytes. Lumbar spine: There is mild dextrocurvature centered at L2. There is slight subluxation of L5 on S1. There is straightening of the lumbar lordosis. There is no fracture or compression deformity. There is a large bridging anterior osteophyte from L5 to S1. There are multilevel degenerative disc and joint changes with varying degrees of disc space narrowing and moderate facet hypertrophy. The sacroiliac joints are intact. Procedure Note Shanti Guzman DO - 08/24/2020 ORDER DATE: 08/24/2020 12:03 PM EXAMINATION: XR THORACIC SPINE 2VW, XR LUMBAR SPINE 2 OR 3VW HISTORY: M54.10: Radiculopathy, unspecified spinal region COMPARISON: MRI thoracic and lumbar spine 05/25/2020, entire spine radiographs from 05/20/2020 FINDINGS: Thoracic spine: There is minimal levocurvature centered at T8. There is no subluxation. There is no fracture or compression deformity. The intervertebral disc spaces are maintained with mild endplate sclerosis and osteophytes. Lumbar spine: There is mild dextrocurvature centered at L2. There is slightsubluxation of L5 on S1. There is straightening of the lumbar lordosis. There is no fracture or compression deformity. There is a large bridging anterior osteophyte from L5 to S1. There are multilevel degenerative disc andjoint changes with varying degrees of disc space narrowing and moderate facet hypertrophy. The sacroiliac joints are intact. IMPRESSION: 1.No fracture or significant subluxation. 2.Multilevel degenerative changes, greatest in the lumbar spine, as detailed above. Dictated by Bessy Chang DO (resident). I, Dr. SHANTI GUZMAN have personally reviewed and interpreted this examination/study. This report was electronically signed by SHANTI GUZMAN on 08/24/2020 1:57 PM . Lisa Barakat MD DIAGNOSTIC IMAGING O RDERABLES * LISA URINE (08/14/2020 2:53 PM CDT) Immunofixation Urine Normal Pattern Normal Pattern 08/19/2020 1:41 PM CDT [facility] Comment: Urine immunofixation electrophoresis shows polyclonal IgG and IgA immunoglobulins. Urine immunofixation electrophoresis shows polyclonal kappa and lambda light chains. No monoclonal immunoglobulins detected. Liana Slade PhD, [facility] Clinical Grocery Store Manager ophthalmic surgical assistant *The electrophoresis pattern and the interpretation have been reviewed and verified by the teaching physician. Urine URINE SPECIMEN COLLECTION, 24 HOURS / Unknown Timed Urine Volume Measurement / Unknown 08/14/2020 2:53 PM CDT 08/14/2020 4:20 PM CDT Gaurang Harman MD LAB - URINE CHEMISTR Y ORDERABLES [facility] [address] [place] [address], [facility] [phone] * LEAD URINE (08/11/2020 4:56 PM CDT) Lead Urine ug/L <5.0 0.0 - 5.0 ug/L 08/17/2020 11:08 AM CDT [facility] ([facility]) Comment: INTERPRETIVE INFORMATION: Lead, Urine Quantification of urine excretion rates before or after chelation therapy has been used as an indicator of lead exposure. Urinary excretion of >125 mg of lead per 24 hours is usually associated with related evidence of lead toxicity. This test was developed and its performance characteristics determined by [facility]. It has not been cleared or approved by the US Food and Drug Administration. This test was performed in a CLIA certified laboratory and is intended for clinical purposes. Collection Time Hours Random hr 08/17/2020 11:08 AM CDT [facility] ([facility]) Comment: Per 24h calculations are provided to aid interpretation for collections with a duration of 24 hours and an average daily urine volume. For specimens with notable deviations in collection time or volume, ratios of analytes to a corresponding urine creatinine concentration may assist in result interpretation. Sub-optimal specimen type. Specimen was received in a noncertified trace element-free tube. Results from noncertified trace element-free tubes may be falsely elevated due to contamination. Concentrations of trace elements should be confirmed with a second specimen transported in a certified trace element-free tube. Specimen tested at client's request. Volume 24 Hour Urine Random mL 08/17/2020 11:08 AM CDT [facility] ([facility]) Lead Urine ug/24HR Not Applicable 0.0 - 8.1 ug/d 08/17/2020 11:08 AM CDT [facility] ([facility]) Lead Urine ug/g creat Not Applicable 0.0 - 5.0 ug/g PATIENT SERVICE SPECIALIST 08/17/2020 11:08 AM CDT [facility] ([facility]) Comment: Unable to accurately calculate the creatinine normalized result due to a low per volume result. Creatinine Urine 32 mg/dL 08/18/19 11:08 AM CDT [facility] ([facility]) Creatinine 24 Hour Urine Not Applicable 500 - 1400 mg/d 08/17/2020 11:08 AM CDT [facility] ([facility]) Comment: Performed by [facility], [address] [place] [id number] [email or web address], Jolene Andujar MD, Lab. Director Urine URINE SPECIMEN OBTAINED BY CLEAN CATCH PROCEDURE / Unknown Collection / Unknown 08/11/2020 4:56 PM CDT 08/11/2020 4:56 PM CDT Narrative [facility] ([facility]) - 08/17/2020 11:08 AM CDT Test results should be interpreted with caution. Assay was performed at client's request on a sub-optimal specimen. Gaurang Harman MD LAB - URINE CHEMISTR Y ORDERABLES [facility] ([facility]) [address] [place] [address] * ARSENIC EXPOSURE PROFILE URINE (08/11/2020 4:55 PM CDT) Arsenic Total 24 Hour Urine See Scanned Report 03/08/2021 4:22 PM CDT [facility] ([facility]) Urine URINE / Unknown Collection / Unknown 08/11/2020 4:55 PM CDT 08/11/2020 4:56 PM CDT Gaurang Harman MD LAB - TOXICOLOGY ORD ERABLES [facility] ([facility]) [address] [place] [address] * MERCURY URINE (08/11/2020 4:55 PM CDT) Mercury Urine <2.5 0.0 - 5.0 ug/L 08/17/2020 11:19 AM CDT [facility] ([facility]) Comment: INTERPRETIVE INFORMATION: Mercury, Urine Urinary mercury levels predominantly reflect acute or chronic elemental or inorganic mercury exposure. Urine concentrations in unexposed individuals are typically less than 10 ug/L. 24 hour urine concentrations of 30 to 100 ug/L may be associated with subclinical neuropsychiatric symptoms and tremors. Concentrations greater than 100 ug/L can be associated with overt neuropsychiatric disturbances and tremors. Urine mercury levels may be useful in monitoring chelation therapy. This test was developed and its performance characteristics determined by [facility]. It has not been cleared or approved by the US Food and Drug Administration. This test was performed in a CLIA certified laboratory and is intended for clinical purposes. Collection Time Hours Random hr 08/17/2020 11:19 AM CDT [facility] ([facility]) Comment: Sub-optimal specimen type. Specimen was received in a noncertified trace element-free tube. Results from noncertified trace element-free tubes may be falsely elevated due to contamination. Concentrations of trace elements should be confirmed with a second specimen transported in a certified trace element-free tube. Specimen tested at client's request. [id number] Per 24h calculations are provided to aid interpretation for collections with a duration of 24 hours and an average daily urine volume. For specimens with notable deviations in collection time or volume, ratios of analytes to a corresponding urine creatinine concentration may assist in result interpretation. Volume 24 Hour Urine Random mL 08/17/2020 11:19 AM CDT [facility] ([facility]) Mercury 24 Hour Urine Not Applicable 0.0 - 20.0 ug/d 08/17/2020 11:19 AM CDT [facility] ([facility]) Mercury ug/g Creat Urine Not Applicable 0.0 - 20.0 ug/g PATIENT SERVICE SPECIALIST 08/17/2020 11:19 AM CDT [facility] ([facility]) Comment: Unable to accurately calculate the creatinine normalized result due to a low per volume result. Creatinine Urine 32 mg/dL 08/18/19 11:19 AM CDT [facility] ([facility]) Creatinine 24 Hour Urine Not Applicable 500 - 1400 mg/d 08/17/2020 11:19 AM CDT [facility] ([facility]) Comment: Performed by [facility], [address] [place] [id number] [email or web address], Jolene Andujar MD, Lab. Director Urine URINE / Unknown Collection / Unknown 08/11/2020 4:55 PM CDT 08/11/2020 4:56 PM CDT Narrative [facility] ([facility]) - 08/17/2020 11:19 AM CDT Test results should be interpreted with caution. Assay was performed at client's request on a sub-optimal specimen. Gaurang Harman MD LAB - URINE CHEMISTR Y ORDERABLES [facility] ([facility]) [address] [place] [address], [facility] * SS-A (SJOGREN'S) 52+60 ANTIBODIES (08/11/2020 3:58 PM CDT) SS-A 52 Antibody 0 0 - 40 AU/mL 08/14/2020 8:20 AM CDT [facility] ([facility]) Comment: INTERPRETIVE INFORMATION: SSA-52 (Ro52) (MONICA) Antibody, IgG 29 AU/mL or Less ............. Negative 30 - 40 AU/mL ................ Equivocal 41 AU/mL or Greater .......... Positive SSA-52 (Ro52) and/or SSA-60 (Ro60) antibodies are associated with a diagnosis of Sjogren syndrome, systemic lupus erythematosus (SLE), and systemic sclerosis. SSA-52 antibody overlaps significantly with the major SSc-related antibodies. SSA-52 (Ro52) antibody occurs frequently in patients with inflammatory myopathies, often in the presence of interstitial lung disease. SS-A 60 Antibody 0 0 - 40 AU/mL 08/14/2020 8:20 AM CDT [facility] ([facility]) Comment: REFERENCE INTERVAL: SSA-60 (Ro60) (MONICA) Antibody, IgG 29 AU/mL or Less ............. Negative 30 - 40 AU/mL ................ Equivocal 41 AU/mL or Greater .......... Positive Performed By: [facility] [address] [place] [address] Water Treatment Plant Repairer: Jolene Andujar MD Blood BLOOD SPECIMEN / Unknown Lab Venipuncture / Unknown 08/11/2020 3:58 PM CDT 08/11/2020 5:05 PM CDT Gaurang Harman MD LAB - CHEMISTRY BEVERLY DOMINGUEZ Performing Organization Address [facility]/ZIP Co de Phone Number [facility]) [address] * LAB MISC TEST (08/11/2020 3:58 PM CDT) [facility] Test Name SEE SCANNED REPORT 01/10/2021 9:19 AM CDT [facility] Blood BLOOD SPECIMEN / Unknown Lab Venipuncture / Unknown 08/11/2020 3:58 PM CDT 08/11/2020 4:21 PM CDT Gaurang Harman MD LAB SEND OUT Performing Organization Address [facility] Co de Phone Number [facility] [address] [place] [address] * IMMUNOFIXATION BLOOD (08/11/2020 3:58 PM CDT) [facility] Immunofixation Serum Normal Pattern Normal Pattern 08/19/2020 1:41 PM CDT [facility] Comment: No monoclonal immunoglobulins detected by serum immunotyping. Liana Slade PhD, [facility] Clinical Grocery Store Manager ophthalmic surgical assistant *The electrophoresis pattern and the interpretation have been reviewed and verified by the teaching physician. Blood BLOOD SPECIMEN / Unknown Lab Venipuncture / Unknown 08/11/2020 3:58 PM CDT 08/11/2020 5:04 PM CDT Gaurang Harman MD LAB - CHEMISTRY BEVERLY DOMINGUEZ Performing Organization Address City/[facility]/ZIP Co de Phone Number [facility] [address] [place] [id number], [facility] [phone] * T4 FREE DIRECT DIALYSIS (08/11/2020 3:58 PM CDT) [facility] T4 Free Direct Dialysis 2.0 1.1 - 2.4 ng/dL 08/15/2020 4:38 AM CDT [facility] ([facility]) Comment: FREE T4 BY EQUIL DIALYSIS-TMS: REFERENCE INTERVALS 1ST TRIMESTER ...... 0.7 - 2.0 ng/dL 2ND TRIMESTER ...... 0.7 - 2.1 ng/dL 3RD TRIMESTER ...... 0.5 - 1.6 ng/dL INTERPRETIVE INFORMATION: FT4 ED-TMS This test was developed and its performance characteristics determined by [facility]. It has not been cleared or approved by the US Food and Drug Administration. This test was performed in a CLIA certified laboratory and is intended for clinical purposes. Performed By: [facility] [employer] [address] [place] [address] Water Treatment Plant Repairer: Jolene Andujar MD Blood BLOOD SPECIMEN / Unknown Lab Venipuncture / Unknown 08/11/2020 3:58 PM CDT 08/11/2020 5:05 PM CDT Santiago Banuelos MD LAB - CHEMISTRY ORD ERABLES [facility]) [address] [place] [address] * MILLER (SM) ANTIBODY MONICA (08/11/2020 3:58 PM CDT) Pathologist [facility] Miller (MONICA) Antibody 1 0 - 40 AU/mL 08/13/2020 10:29 AM CDT [facility] ([facility]) Comment: INTERPRETIVE INFORMATION: Miller (MONICA) Antibody, IgG 29 AU/mL or Less ............. Negative 30 - 40 AU/mL ................ Equivocal 41 AU/mL or Greater .......... Positive Miller antibody is highly specific (greater than 90 percent) for systemic lupus erythematosus (SLE) but only occurs in 30-35 percent of SLE cases. The presence of antibodies to Miller has variable associations with SLE clinical manifestations. Performed By: [facility] [address] [place] [address] Water Treatment Plant Repairer: Jolene Andujar MD Blood BLOOD SPECIMEN / Unknown Lab Venipuncture / Unknown 08/11/2020 3:58 PM CDT 08/11/2020 5:05 PM CDT Gaurang Harman MD LAB - CHEMISTRY ORDE RABLES [facility]) [address] * GABE BLOOD SCREEN W/REFLEX TITER (08/11/2020 3:58 PM CDT) GABE IgG None Detected None Detected 08/13/2020 10:56 PM CDT [facility] ([facility]) Comment: If suspicion of connective tissue disease is strong and GABE EIA is negative, consider testing for GABE by IFA ([id number]). INTERPRETIVE INFORMATION: Anti-Nuclear Antibodies (GABE), IgG by IDANIA Antinuclear Antibodies (GABE), IgG by IDANIA: GABE specimens are screened using enzyme-linked immunosorbent assay (IDANIA) methodology. All IDANIA results reported as Detected are further tested by indirect fluorescent assay (IFA) using HEp-2 substrate with an IgG-specific conjugate. The GABE IDANIA screen is designed to detect antibodies against dsDNA, histones, SS-A (Ro), SS-B (La), Miller, Miller/HOUSE DETECTIVE, Scl-70, Gisselle-1, centromeric proteins, other antigens extracted from the HEp-2 cell nucleus. GABE IDANIA assays have been reported to have lower sensitivities than GABE IFA for systemic autoimmune rheumatic diseases (SARD). Negative results do not necessarily rule out SARD. Performed By: [facility] [address] [place] [address] Water Treatment Plant Repairer: Jolene Andujar MD Blood BLOOD SPECIMEN / Unknown Lab Venipuncture / Unknown 08/11/2020 3:58 PM CDT 08/11/2020 5:05 PM CDT Gaurang Harman MD LAB - CHEMISTRY BEVERLY DOMINGUEZ [facility] ([facility]) [address] * METHYLMALONIC ACID BLOOD (08/11/2020 3:58 PM CDT) Methylmalonic Acid 0.19 0.00 - 0.40 umol/L 08/15/2020 4:31 AM CDT [facility] ([facility]) Comment: INTERPRETIVE INFORMATION: MMA Serum/Plasma, Vitamin B12 Status This test was developed and its performance characteristics determined by [facility]. It has not been cleared or approved by the US Food and Drug Administration. This test was performed in a CLIA certified laboratory and is intended for clinical purposes. Performed By: [facility] [employer] [address] [place] [address] Water Treatment Plant Repairer: Jolene Andujar MD Blood BLOOD SPECIMEN / Unknown Lab Venipuncture / Unknown 08/11/2020 3:58 PM CDT 08/11/2020 5:05 PM CDT Gaurang Harman MD LAB - CHEMISTRY BEVERLY DOMINGUEZ Performing Organization Address [facility] Co de Phone Number [facility]) [address] [place] [address] * ZINC BLOOD (08/11/2020 3:58 PM CDT) Zinc 67.3 60.0 - 120.0 ug/dL 08/13/2020 7:25 AM CDT [facility] ([facility]) Comment: INTERPRETIVE INFORMATION: Zinc, Serum or Plasma Elevated results may be due to skin or collection-related contamination, including the use of a noncertified metal-free collection/transport tube. If contamination concerns exist due to elevated levels of serum/plasma zinc, confirmation with a second specimen collected in a certified metal-free tube is recommended. Circulating zinc concentrations are dependent on albumin status and are depressed with malnutrition. Zinc may also be lowered with infection, inflammation, stress, oral contraceptives, and . Zinc may be elevated with zinc supplementation or fasting. Elevated zinc concentrations may interfere with copper absorption. This test was developed and its performance characteristics determined by [facility]. It has not been cleared or approved by the US Food and Drug Administration. This test was performed in a CLIA certified laboratory and is intended for clinical purposes. Performed By: [facility] [address] [place] [address] Water Treatment Plant Repairer: Jolene Andujar MD Blood BLOOD SPECIMEN / Unknown Lab Venipuncture / Unknown 08/11/2020 3:58 PM CDT 08/11/2020 4:21 PM CDT Gaurang Harman MD LAB - CHEMISTRY BEVERLY DOMINGUEZ Performing Organization Address [facility]/ZIP Co de Phone Number [facility] ([facility]) [address] * VITAMIN E (08/11/2020 3:58 PM CDT) Vitamin E Alpha Tocopherol 9.5 5.5 - 18.0 mg/L 08/15/2020 3:49 PM CDT [facility] ([facility]) Comment: This test was developed and its performance characteristics determined by [facility]. It has not been cleared or approved by the US Food and Drug Administration. This test was performed in a CLIA certified laboratory and is intended for clinical purposes. Vitamin E Gamma Tocopherol 1.2 0.0 - 6.0 mg/L 08/15/2020 3:49 PM CDT [facility] ([facility]) Comment: Performed By: [facility] [address] [place] [address] Water Treatment Plant Repairer: Jolene Andujar MD Blood BLOOD SPECIMEN / Unknown Lab Venipuncture / Unknown 08/11/2020 3:58 PM CDT 08/11/2020 5:04 PM CDT Gaurang Harman MD LAB - CHEMISTRY ORDE ANGELICA Performing Organization Address [facility] de Phone Number [facility] ([facility]) [address] * COPPER BLOOD (08/11/2020 3:58 PM CDT) Copper 121.3 80.0 - 155.0 ug/dL 08/13/2020 7:25 AM CDT [facility] ([facility]) Comment: INTERPRETIVE INFORMATION: Copper, Serum or Plasma Elevated results may be due to skin or collection-related contamination, including the use of a noncertified metal-free collection/transport tube. If contamination concerns exist due to elevated levels of serum/plasma copper, confirmation with a second specimen collected in a certified metal-free tube is recommended. Serum copper may be elevated with infection, inflammation, stress, and copper supplementation. In females, elevated copper may also be caused by oral contraceptives and (concentrations may be elevated up to 3 times normal during the third trimester). This test was developed and its performance characteristics determined by [facility]. It has not been cleared or approved by the US Food and Drug Administration. This test was performed in a CLIA certified laboratory and is intended for clinical purposes. Performed By: [facility] [address] [place] [address] Water Treatment Plant Repairer: Jolene Andujar MD Blood BLOOD SPECIMEN / Unknown Lab Venipuncture / Unknown 08/11/2020 3:58 PM CDT 08/11/2020 4:21 PM CDT Gaurang Harman MD LAB - CHEMISTRY ORDZuhair DOMINGUEZ Performing Organization Address [facility]/ZIP Co de Phone Number [facility] ([facility]) [address] [place] [address] * SS-B (SJOGREN'S) ANTIBODY (08/11/2020 3:58 PM CDT) SS-B Antibody 0 0 - 40 AU/mL 08/14/2020 7:44 AM CDT [facility] ([facility]) Comment: INTERPRETIVE INFORMATION: SSB (La) (MONICA) Ab, IgG 29 AU/mL or Less ............. Negative 30 - 40 AU/mL ................ Equivocal 41 AU/mL or Greater .......... Positive SSB (La) antibody is seen in 50-60% of Sjogren syndrome cases and is specific if it is the only MONICA antibody present. 15-25% of patients with systemic lupus erythematosus (SLE) and 5-10% of patients with progressive systemic sclerosis (PSS) also have this antibody. Performed By: [facility] [address] [place] [address] Water Treatment Plant Repairer: Jolene Andujar MD Blood BLOOD SPECIMEN / Unknown Lab Venipuncture / Unknown 08/11/2020 3:58 PM CDT 08/11/2020 5:04 PM CDT Gaurang Harman MD LAB - CHEMISTRY ORDZuhair EMMAKELLY Performing Organization Address City/[facility]/ZIP Co de Phone Number [facility]) [address] [place] [address] * DNA ANTIBODY DOUBLE STRANDED (08/11/2020 3:58 PM CDT) dsDNA Antibody None Detected None Detected 08/13/2020 1:38 PM CDT [facility] [facility] ([facility] Comment: INTERPRETIVE INFORMATION: Double-Stranded DNA (dsDNA) Antibody, IgG by IDANIA Positivity for anti-double stranded DNA (anti-dsDNA) IgG antibody is a diagnostic criterion of systemic lupus erythematosus (SLE). Specimens are initially screened by enzyme-linked immunosorbent assay (IDANIA). All IDANIA results reported as detected (positive) are confirmed by a highly specific IFA titer (Crithidia luciliae indirect fluorescent test [DANNY]). Some patients with early or inactive SLE may be positive for anti-dsDNA IgG by IDANIA but negative by DANNY. If the patient is negative by DANYN but positive by IDANIA and clinical suspicion remains, consider antinuclear antibody (GABE) testing by IFA. Additional information and recommendations for testing may be found at [email or web address]. Performed By: [facility] [address] [place] [address] Water Treatment Plant Repairer: Jolene Andujar MD Blood BLOOD SPECIMEN / Unknown Lab Venipuncture / Unknown 08/11/2020 3:58 PM CDT 08/11/2020 5:05 PM CDT Gaurang Harman MD LAB - HEMATOLOGY ORD ERABLES [facility]) [address] [place] [address] * ALDOLASE (08/11/2020 3:58 PM CDT) Pathologist [facility] Aldolase 4.8 1.5 - 8.1 U/L 08/13/2020 6:48 AM CDT [facility] ([facility]) Comment: REFERENCE INTERVAL: Aldolase Access complete set of age- and/or gender-specific reference intervals for this test in the [employer] Laboratory Test Directory (Zoom). Performed By: [facility] [address] [place] [address] Water Treatment Plant Repairer: Jolene Andujar MD Blood BLOOD SPECIMEN / Unknown Lab Venipuncture / Unknown 08/11/2020 3:58 PM CDT 08/11/2020 5:05 PM CDT Gaurang Harman MD LAB - CHEMISTRY BEVERLY DOMINGUEZ Performing Organization Address City/[facility]/ZIP Co de Phone Number [facility]) [address] [place] [address] * KAPPA/LAMBDA LITE CHAIN FREE PANEL (08/11/2020 3:58 PM CDT) [place] Quant Free Light Chain 13.30 3.30 - 19.40 mg/L 08/14/2020 7:34 AM CDT [facility] ([facility]) Comment: INTERPRETIVE INFORMATION: [place] Qnt Free Light Chains Undetected antigen excess is a rare event but cannot be excluded. Free light chain results should always be interpreted in conjunction with other clinical and laboratory findings. Lambda Free Light Chain Quantitative 10.71 5.71 - 26.30 mg/L 08/14/2020 7:34 AM CDT [facility] ([facility]) [place]/Lambda Free Light Chain ratio 1.24 0.26 - 1.65 08/14/2020 7:34 AM CDT [facility] ([facility]) Comment: Performed By: [facility] [employer] [address] [place] [address] Water Treatment Plant Repairer: Jolene Andujar MD Blood BLOOD SPECIMEN / Unknown Lab Venipuncture / Unknown 08/11/2020 3:58 PM CDT 08/11/2020 5:06 PM CDT Gaurang Harman MD LAB - CHEMISTRY BEVERLY DOMINGUEZ Performing Organization Address City/[facility]/ZIP Co de Phone Number [facility] ([facility]) [address] [place] [address] * (ABNORMAL) ERYTHROCYTE SEDIMENTATION RATE (08/11/2020 3:58 PM CDT) [facility] Erythrocyte Sedimentation Rate Westergren 58(H) 0 - 30 MM/HR 08/11/2020 4:45 PM CDT [facility] Blood BLOOD SPECIMEN / Unknown Lab Venipuncture / Unknown 08/11/2020 3:58 PM CDT 08/11/2020 4:24 PM CDT Gaurang Harman MD LAB - HEMATOLOGY ORD ERABLES Performing Organization Address [facility]/ZIP Co de Phone Number [address] [address], [place] [phone] * CK BLOOD (08/11/2020 3:58 PM CDT) Pathologist [facility] CK Total 128 30 - 200 Units/L 08/11/2020 5:24 PM CDT [facility] Blood BLOOD SPECIMEN / Unknown Lab Venipuncture / Unknown 08/11/2020 3:58 PM CDT 08/11/2020 4:24 PM CDT Gaurang Harman MD LAB - CHEMISTRY ORDZuhair DOMINGUEZ Performing Organization Address [facility] Co de Phone Number [address] [address], [place] [phone] * T4 FREE (08/11/2020 3:58 PM CDT) Only the most recent of2 resultswithin the time period is included. [facility] T4 Free 1.1 0.7 - 1.5 ng/dL 08/11/2020 5:22 PM CDT [facility] Blood BLOOD SPECIMEN / Unknown Lab Venipuncture / Unknown 08/11/2020 3:58 PM CDT 08/11/2020 4:24 PM CDT Santiago Banuelos MD LAB - CHEMISTRY ORD ERABLES Performing Organization Address [facility]/ZIP Co de Phone Number [address] [address], [place] [phone] * NM US GUIDED NEEDLE PLACEMENT, NM US SOFT TISS HEAD&NCK R-T IMG, NM FNA BX W US GDN 1ST LES (07/23/2020 2:18 PM MATERIAL FLOW ANALYST) Narrative Santiago Banuelos MD - 07/23/2020 2:18 PM MATERIAL FLOW ANALYST Santiago Banuelos MD 07/23/2020 2:36 PM Ultrasound Of Thyroid Ultrasound of the Thyroid PHYSICIAN Santiago Banuelos MD FELLOW NONE Test Date: 07/23/2020 Test Indication: Patient Active Problem List: Typical atrial flutter Thyroid nodule Goiter, nontoxic, multinodular Referring Physician: Dr. Kristen Graf, [facility] Procedure Preformed: Ultrasound and Biopsy Nodule Size: RIGHT LOBE TRANSVERSE IMAGE : SOLID, WITH SOME CYSTIC AREAS, SMOOTH BORDER, HALO, HYPOECHOIC, INFERIOR POLE, HETEROGENEOUS ECHO TEXTURE, 1.78 X 1.67 CM LONGITUDINAL IMAGE: 2.43 X 1.66 CM LEFT LOBE TRANSVERSE IMAGE: HYPOECHOIC CYST, MID LOBE, 0.43 X 0.24 CM LONGITUDINAL IMAGE: 0.31 X 0.22 CM Echogenicity: HETEROGENEOUS ECHO TEXTURE Vascularity: NOT INCREASED OR ABNORMAL , VASCULARITY IN HALO OF RIGHT NODULE Number of Nodules Present: SEE ABOVE Calcifications: NONE Borders: SHARP RIGHT LOBE TRANSVERSE IMAGE: 1.81 X 1.62 CM LONGITUDINAL IMAGE: 4.83 CM ISTHMUS: 0.36 CM LEFT LOBE TRANSVERSE IMAGE: 1.76 X 1.12 CM LONGITUDINAL IMAGE: 3.82 X 1.08 CM ASSESSMENT MULTINODULAR GOITER DOMINANT NODULE RIGHT LOBE Recommendations: FNA BIOPSY OF RIGHT LOBE NODULE LAB SOON Santiago Banuelos MD Division of Endocrinology Fine Needle Aspiration Biopsy of the Thyroid Date: 07/23/2020 Referring MD: Kristen Graf [facility] Physician: Santiago Banuelos MD Fellow: NONE History: 79 YEAR OLD WHITE FEMALE REFERRED FOR THYROID NODULE FOUND ON MRI OF NECK AND CONFIRMED WITH US RECENTLY, SEE BELOW NO PRIOR THYROID PROBLEMS IS MY PATIENT (ALCIDES ) Family History: No Radiation:No Dysphagia:No Dysphonia:No Dyspnea:Yes ATRIAL FIBRILLATION Growth:No Pain:No Lymph Node:No Thyroid Scan: NONE Thyroid Ultrasound: 05/25/2020 MRI EXAMINATION: 1. MRI OF THE CERVICAL SPINE WITHOUT CONTRAST 2. MRI OF THE THORACIC SPINE WITHOUT CONTRAST 3. MRI OF THE LUMBAR SPINE WITHOUT CONTRAST HISTORY: M54.9: Back pain, unspecified back location, unspecified back pain laterality, unspecified chronicity; M54.10: Radiculopathy, unspecified spinal region; G95.9: Myelopathy COMPARISON: None. Correlation: Cervical spine radiographs of the entire spine dated 05/20/2020. TECHNIQUE: MRI of the cervical, thoracic, and lumbar spine was performed without contrast according to standard protocols. FINDINGS: CERVICAL SPINE: There is gentle kyphosis of cervical spine centered at C4-C5. No fracture, perched facet, spondylolisthesis, marrow edema or a suspicious intrinsic bony lesion is identified. Vertebral bodies are normal in height without evidence of compression fractures. Marrow signal intensity is normal. The craniocervical junction and visualized portions of the posterior fossa appear normal. The spinal cord appears normal in size, contour and signal intensity without intramedullary signal changes or external compression. The anterior and posterior longitudinal ligaments as well as the posterior ligamentous complex appear intact. All the discs are desiccated. There is shortening of disc space height as well as anterior and posterior endplate spurring at C4-C5, C5-C6 and C6-C7 levels suggestive of moderate degenerative disc disease. There are associated broad-based posterior disc-osteophyte complexes at each of these three levels with effacement of ventral subarachnoid space, but without causing significant central canal stenosis or cord compression. The remainder of the intervertebral discs are normal in height. No other evidence of posterior disc abnormality or central canal stenosis is seen. There are varying degrees of mild facet osteoarthritis at all levels. Moderate to severe osteoarthritis of bilateral uncovertebral joints at C4-C5, C5-C6 and C6-C7 levels are present with associated posterior spurring causing severe neural foraminal stenosis on the left side at C5-C6 and moderate neural foraminal stenosis of the remainder of the neural foramina at these three levels. The remainder of the uncovertebral joints appear normal. No other evidence of significant neural foraminal stenosis is seen. Small perineural cysts in the right neural foramina at the C6-C7 and C7-T1 levels and bilaterally at T1-T2 level are present. Normal flow voids are identified in the vertebral arteries. There is a 2.6 cm well-circumscribed T2 hyperintense, T1 hypointense, STIR hyperintense cystic nodule in the right lobe of thyroid seen on sagittal images. No other soft tissue abnormality is identified. THORACIC SPINE: Kyphosis is normal. There is mild convex levoscoliosis of the thoracic spine centered at T8. No fracture, perched facet, spondylolisthesis, marrow edema or a malignant marrow replacing process is identified. Vertebral bodies are normal in height without evidence of compression fractures. The spinal cord appears normal in size, contour and signal intensity without intramedullary signal abnormalities or external compression. The anterior and posterior longitudinal ligaments as well as the posterior ligamentous complex appear intact. The intervertebral discs appear normal in height, but are desiccated. No posterior disc herniation or central canal stenosis is seen, throughout. There is mild broad-based posterior bulging of T11-T12 disc, mild bilateral facet osteoarthritis and focal calcification of ligamentum flavum on the right side at T11-T12 causing mild stenosis of thecal sac from the right lateral side (series 100, image 48). There is mild facet osteoarthritis at multiple levels. No neural foraminal stenosis is seen. Multilevel tiny perineural cysts are present at T4-T5, T7-T8 and T12-L1 levels. No soft tissue abnormality is identified. LUMBAR SPINE: Lordosis is normal. There is mild convex levoscoliosis of the lumbar spine centered at L4. There is a rudimentary S1-S2 disc. Vertebral bodies are normal in height without evidence of compression fractures. No fracture, spondylolisthesis, marrow edema or a malignant marrow replacing process is identified. There is mild fatty metaplasia of the sacrum and the pelvis. The conus medullaris terminates at the level of L2 and the distal spinal cord signal intensity is normal. The anterior and posterior longitudinal ligaments as well as the posterior ligamentous complex appear intact. There is muscular atrophy of posterior paravertebral muscles in the entire lumbar spine especially at the lumbosacral junction sacral region with fatty replacement of muscles. Incidentally noted is a 7 mm well-circumscribed T2 hyperintense lesion of posterior segment of right hepatic lobe. Only the L1-L2 disc is normal in height, but is borderline desiccated. There is moderate shortening of the heights of L5-S1 followed by L2-L3 and L3-L4 disc spaces consistent with degenerative disc disease. There is anterior endplate osteophytosis at L2-L3. T12-L1 and L1-L2: There is no posterior disc herniation or bulging. Mild hypertrophy of ligamentum flavum and mild facet osteoarthritis is present. The central canal, lower cord and conus are normal. The neural foramina and exiting nerves are normal. A small perineural cyst in the right T12-L1 neural foramen is visible. L2-L3: The combination of mild to moderate circumferential bulging, symmetric hypertrophy of ligamentum flavum and moderate bilateral facet osteoarthritis results in mild bilateral lateral recess stenosis and borderline stenosis of thecal sac anteroposteriorly in midline. There is encroachment of the bulged disc into inferior recesses of neural foramina causing mild neural foraminal stenosis without neural impingement. L3-L4: The combination of mild circumferential disc bulging, mild symmetric hypertrophy of ligamentum flavum and mild facet osteoarthritis are present without causing central canal stenosis. Borderline lateral recess stenosis is present. There is no significant neural foraminal stenosis. L4-L5: There is a central posterior disc protrusion, superimposed on mild circumferential disc bulging. There is moderate symmetric hypertrophy of ligamentum flavum and mild bilateral facet osteoarthritis. The protruded disc and hypertrophied ligamentum flavum severely compress the bilateral lateral recesses at L4-L5 and compress the traversing L5 nerves in the lateral recesses, bilaterally. No significant neural foraminal stenosis or impingement on exiting nerves in the neural foramina is identified. L5-S1: There is no posterior disc abnormality, central canal stenosis, lateral recess stenosis, significant facet osteoarthritis or neural impingement is identified. IMPRESSION: 1. No acute fracture, marrow edema or a malignant marrow replacing process is identified, throughout. 2. Mild scoliosis of the thoracic and lumbar spine as discussed above. 3. Severe compression of bilateral lateral recesses and the traversing L5 nerves in the lateral recesses at L4-L5. 4. Muscular atrophy of the posterior paravertebral muscles of lumbosacral region. 5. The cord is normal. 6. Severe left neural foraminal stenosis at C5-C6. Impingement on exiting left C6 nerve in the foramen is possible. 7. A 2.6 cm apparent cystic lesion of the right lobe of thyroid is not properly characterized on this study. Consider further evaluation with thyroid sonography. This report was electronically signed by ARTIE DICKENS on 05/25/2020 1:49 PM . EXAMINATION: THYROID SONOGRAM HISTORY: 79-year-old female with incidentally noted thyroid nodules on previous MRI cervical spine COMPARISON: None FINDINGS: The thyroid is enlarged in size. Size right lobe: 6.1 cm craniocaudal, 2.3 cm transverse, 2.0 cm AP. Size left lobe: 4.6 cm craniocaudal, 1.3 cm transverse, 1.2 cm AP. Size isthmus: 0.3 cm AP. Nodule 1: Location: Right inferior Size: 2.8 cm craniocaudal x 1.8 cm transverse x 2.0 cm AP Maximum Size: 2.8 cm Composition: Solid/almost completely solid (2) Echogenicity: Isoechoic (1) Shape: Not taller than wide (0) Margins: Smooth (0) Echogenic foci: None (0) ACR TI-RADS total points: 3 ACR TI-RADS risk category: TR3 (3 points) Nodule 2: Location: Left mid Size: 0.5 cm craniocaudal x 0.5 cm transverse x 0.3 cm AP Maximum Size: 0.5 cm Composition: Solid/almost completely solid (2) Echogenicity: Hypoechoic (2) Shape: Not taller than wide (0) Margins: Smooth (0) Echogenic foci: None (0) ACR TI-RADS total points: 4 ACR TI-RADS risk category: TR4 (4-6 points) IMPRESSION: 1. 2.8 cm right thyroid lobe nodule (TI-RADS 3), recommend fine-needle aspiration. 2. 0.5 cm left thyroid lobe nodule (TI-RADS 4). No further imaging evaluation is needed according to ACR TI-RADS guidelines. Report dictated by Cas Cordero MD (vice president diversity). ACR TI-RADS recommendations TR5 (>=7 points) (risk of malignancy > 20%) >=1 cm: FNA 0.5-0.9 cm: follow-up US every year for 5 years <0.5 cm: no further evaluation TR4 (4-6 points) (risk of malignancy 5-20%) >=1.5 cm: FNA 1-1.4 cm: follow-up US in 1, 2, 3, and 5 years <1.0 cm: no further evaluation TR3 (3 points) (risk of malignancy 2-5%) >=2.5 cm: FNA 1.5-2.4 cm: follow-up US in 1, 3, and 5 years <1.5 cm: no further evaluation TR2 (2 points) and TR1 (0 points) (risk of malignancy < 2%) No FNA or follow-up US This report was approved by Cas Cordero Dr on 07/16/2020 11:55 AM . IDr. BIA have personally reviewed and interpreted this examination/study. This report was electronically signed by BIA THOMPSON on 07/16/2020 2:44 PM . Results for BETH AARON ( ) as of 07/23/2020 13:02 Ref. Range 03/06/2020 11:04 TSH Latest Ref Range: 0.350 - 4.940 uIU/mL 1.578 Last Lab Results TSH:Lab results smartLinks are not currently available Normal Date: T4: Lab results smartLinks are not currently available Anti-TPO: Free T4: Lab results smartLinks are not currently available Anti-TG: Lab results smartLinks are not currently available Free T3: Medications: Current Outpatient Medications Medication Sig Dispense Refill acetaminophen (TYLENOL) 500 MG tablet Take 500 mg by mouth every 4 hours as needed for Fever or Pain Maximum allowable Acetaminophen amount = 4 Grams (4000 mg) / 24 hours. albuterol HFA (PROVENTIL;VENTOLIN;PROAIR) 108 (90 Base) MCG/ACT inhaler Inhale 2 puffs by mouth 2 times daily as needed carboxymethylcellulose sodium PF (RETAINE CMC) 0.5 % ophthalmic solution Instill 1 drop into both eyes as needed carvedilol (COREG) 3.125 MG tablet Take 3.125 mg by mouth 2 times daily as needed with food flecainide (TAMBOCOR) 100 MG tablet Take 1 (one) tablet by mouth 2 times daily 180 tablet 3 guaiFENesin ER 12hr (MUCINEX) 600 MG tablet Take 600 mg by mouth once daily as needed for Cough hydrALAZINE (APRESOLINE) 25 MG tablet Take 1 (one) tablet by mouth 3 times daily with meals 270 tablet 3 lifitegrast (XIIDRA) 5 % opthalmic solution Instill 1 drop into both eyes 2 times daily losartan (COZAAR) 100 MG tablet Take 1 (one) tablet by mouth once daily 90 tablet 3 nitroGLYCERIN (NITROSTAT) 0.4 MG tablet Dissolve 1 tablet under the tongue as needed 30 tablet 11 omeprazole (PRILOSEC) 20 MG capsule Take 1 (one) capsule by mouth once daily 90 capsule 4 polyethylene glycol 3350 (MIRALAX) 17 GM/SCOOP powder 1 capful dissolved in 4-8 oz water or juice daily 527 g 11 rivaroxaban (XARELTO) 20 MG tablet Take 20 mg by mouth daily with food vitamin D3 (CHOLECALCIFEROL) (25 MCG) 1000 UNIT capsule Take 1,000 Units by mouth once daily No current facility-administered medications for this visit. Allergies: No Known Allergies Hepatitis:No Jaundice:No Blood Transfusion:No Smoker:No Anticoagulants:Yes Past Medical History: Past Medical History: Diagnosis Date Atrial fibrillation Goiter, nontoxic, multinodular Shortness of breath Thyroid nodule 07/22/2020 TIA (transient ischemic attack) Findings: The fine needle aspiration biopsy procedure was explained to the patient and written consent for the procedure obtained and witnessed. The area of the thyroid gland was identified and marked on the skin in the usual manner.The skin was cleaned with betadine three times prior to the infusion of 2% lidocaine for local anesthesia. A time out was done to identify the patient and site for the procedure. Fine needle aspiration of the thyroid was performed with a 20 ml syringe and 27 gauge needle. Local hemostasis was maintained with pressure after each aspiration. When a sufficient number of thyroid cells were obtained the procedure was terminated. The neck was cleaned again with isopropyl alcohol to remove the betadine and ink markings. A band aide was placed over the needle insertion site. The patient was discharged from the biopsy suite and instructed to put ice onthe biopsy site for 30 minutes at home. Santiago Banuelos MD Professor of Internal Medicine Number of FNAs: 3 Right 3 Center: 0 Left 0 ALL FNA BIOPSIES WERE DONE WITH CONTINUOUS ULTRASOUND MONITORING OF NEEDLE PLACEMENT IN NODULE Volume of Fluid: NONE Complications: NONE Recommendations: PLAN THYROID ULTRASOUND FNA BIOPSY OF THE THYROID ICE PACK TO NECK FOR 30 MIN AT HOME LAB SOON RETURN IN SIX MONTHS AT LEAST ANNUAL TSH DETERMINATION RETURN IN SIX MONTHS ULTRASOUND IN SIX MONTHS Santiago Banuelos MD Santiago Banuelos MD PROCEDURE/MINOR KASH GICAL ORDERABLES * FINE NEEDLE ASPIRATION - THYROID (STL) (07/23/2020 1:31 PM MATERIAL FLOW ANALYST) Case Report Medical Cytology Report Case: [id number] Authorizing Provider: Santiago Banuelos MD Collected: 07/23/2020 01:31 PM Ordering Location: [facility], Received: 07/23/2020 03:14 PM Diabetes and Metabolism Pathologist: Any Baez MD Specimen: Thyroid Mass , RIGHT NODULE 07/28/2020 2:59 PM CDT [facility] Specimen Adequacy Adequate cellularity for evaluation. 07/28/2020 2:59 PM CDT [facility] Final Diagnosis Thyroid, right nodule, FNA: - Benign - Consistent with a benign follicular nodule 07/28/2020 2:[address] [facility] Clinical History Right thyroid nodule 07/28/2020 2:59 PM CDT [facility] Gross Description 1 pap stained slide and 1 cell block from 15cc bloody collection fluid 07/28/2020 2:59 PM CDT [facility] Microscopic Description Moderate amount of colloid and moderate sized follicles. No significant macrophages seen. 07/28/2020 2:[address] [facility] Disclaimer The performance characteristics of all immunohistochemical and indirect immunofluorescence stains (if any) cited in this report were determined by the [facility] of [facility]. Some of these tests rely on the use of analyte-specific reagents and are subject to specific labeling requirements by the [place] Food and Drug Administration. Such tests were developed by the [facility] of [facility] and have not been cleared or approved by the FDA. The FDA has determined that such clearance and approval is not necessary. These tests are used for clinical purposes and should not be regarded as investigational or for research. This laboratory is certified under the Clinical Laboratory Improvement Amendments (CLIA) as qualified to perform high complexity clinical laboratory testing. This case has been personally reviewed and interpreted by the attending (teaching) pathologist. 07/28/2020 2:59 PM [facility] Embedded Images 07/28/2020 2:59 PM [facility] Pathology/Cytolo gy MASS OF THYROID GLAND / Unknown Collection / Unknown 07/23/2020 1:31 PM MATERIAL FLOW ANALYST 07/23/2020 3:14 PM MATERIAL FLOW ANALYST Santiago Banuelos MD LAB - PATHOLOGY/CYT OLOGY ORDERABLES [facility] [address] [place] [address], [facility] [phone] * US THYROID (07/16/2020 10:56 AM MATERIAL FLOW ANALYST) Anatomical Region Laterality Modality Chest Ultrasound 07/16/2020 10:4 2 AM MATERIAL FLOW ANALYST Impressions 07/16/2020 2:44 PM MATERIAL FLOW ANALYST IMPRESSION: 1. 2.8 cm right thyroid lobe nodule (TI-RADS 3), recommend fine-needle aspiration. 2. 0.5 cm left thyroid lobe nodule (TI-RADS 4). No further imaging evaluation is needed according to ACR TI-RADS guidelines. Report dictated by Cas Cordero MD (vice president diversity). ACR TI-RADS recommendations TR5 (>=7 points) (risk of malignancy > 20%) >=1 cm: FNA 0.5-0.9 cm: follow-up US every year for 5 years <0.5 cm: no further evaluation TR4 (4-6 points) (risk of malignancy 5-20%) >=1.5 cm: FNA 1-1.4 cm: follow-up US in 1, 2, 3, and 5 years <1.0 cm: no further evaluation TR3 (3 points) (risk of malignancy 2-5%) >=2.5 cm: FNA 1.5-2.4 cm: follow-up US in 1, 3, and 5 years <1.5 cm: no further evaluation TR2 (2 points) and TR1 (0 points) (risk of malignancy < 2%) No FNA or follow-up US This report was approved by Cas Cordero Dr on 07/16/2020 11:55 AM . IDr. BIA have personally reviewed and interpreted this examination/study. This report was electronically signed by BIA THMOPSON on 07/16/2020 2:44 PM . Narrative 07/16/2020 2:44 PM MATERIAL FLOW ANALYST EXAMINATION: THYROID SONOGRAM HISTORY: 79-year-old female with incidentally noted thyroid nodules on previous MRI cervical spine COMPARISON: None FINDINGS: The thyroid is enlarged in size. Size right lobe: 6.1 cm craniocaudal, 2.3 cm transverse, 2.0 cm AP. Size left lobe: 4.6 cm craniocaudal, 1.3 cm transverse, 1.2 cm AP. Size isthmus: 0.3 cm AP. Nodule 1: Location: Right inferior Size: 2.8 cm craniocaudal x 1.8 cm transverse x 2.0 cm AP Maximum Size: 2.8 cm Composition: Solid/almost completely solid (2) Echogenicity: Isoechoic (1) Shape: Not taller than wide (0) Margins: Smooth (0) Echogenic foci: None (0) ACR TI-RADS total points: 3 ACR TI-RADS risk category: TR3 (3 points) Nodule 2: Location: Left mid Size: 0.5 cm craniocaudal x 0.5 cm transverse x 0.3 cm AP Maximum Size: 0.5 cm Composition: Solid/almost completely solid (2) Echogenicity: Hypoechoic (2) Shape: Not taller than wide (0) Margins: Smooth (0) Echogenic foci: None (0) ACR TI-RADS total points: 4 ACR TI-RADS risk category: TR4 (4-6 points) Procedure Note Bia Thompson MD - 07/16/2020 EXAMINATION: THYROID SONOGRAM HISTORY: 79-year-old female with incidentally noted thyroid nodules on previous MRI cervical spine COMPARISON: None FINDINGS: The thyroid is enlarged in size. Size right lobe: 6.1 cm craniocaudal, 2.3 cm transverse, 2.0 cm AP. Size left lobe: 4.6 cm craniocaudal, 1.3 cm transverse, 1.2 cm AP. Size isthmus: 0.3 cm AP. Nodule 1: Location: Right inferior Size: 2.8 cm craniocaudal x 1.8 cm transverse x 2.0 cm AP Maximum Size: 2.8 cm Composition: Solid/almost completely solid (2) Echogenicity: Isoechoic (1) Shape: Not taller than wide (0) Margins: Smooth (0) Echogenic foci: None (0) ACR TI-RADS total points: 3 ACR TI-RADS risk category: TR3 (3 points) Nodule 2: Location: Left mid Size: 0.5 cm craniocaudal x 0.5 cm transverse x 0.3 cm AP Maximum Size: 0.5 cm Composition: Solid/almost completely solid (2) Echogenicity: Hypoechoic (2) Shape: Not taller than wide (0) Margins: Smooth (0) Echogenic foci: None (0) ACR TI-RADS total points: 4 ACR TI-RADS risk category: TR4 (4-6 points) IMPRESSION: 1. 2.8 cm right thyroid lobe nodule (TI-RADS 3), recommend fine-needle aspiration. 2. 0.5 cm left thyroid lobe nodule (TI-RADS 4). No further imaging evaluation is needed according to ACR TI-RADS guidelines. Report dictated by Cas Cordero MD (vice president diversity). ACR TI-RADS recommendations TR5 (>=7 points) (risk of malignancy > 20%) >=1 cm: FNA 0.5-0.9 cm: follow-up US every year for 5 years <0.5 cm: no further evaluation TR4 (4-6 points) (risk of malignancy 5-20%) >=1.5 cm: FNA 1-1.4 cm: follow-up US in 1, 2, 3, and 5 years <1.0 cm: no further evaluation TR3 (3 points) (risk of malignancy 2-5%) >=2.5 cm: FNA 1.5-2.4 cm: follow-up US in 1, 3, and 5 years <1.5 cm: no further evaluation TR2 (2 points) and TR1 (0 points) (risk of malignancy < 2%) No FNA or follow-up US This report was approved by Cas Cordero Dr on 07/16/2020 11:55 AM . I, Dr. BIA THOMPSON have personally reviewed and interpreted this examination/study. This report was electronically signed by BIA THOMPSON on 07/16/2020 2:44 PM. Kristen Graf APRN-[facility] US ORDERABLES * MRI THORACIC SPINE WO CONTRAST (05/25/2020 10:32 AM MATERIAL FLOW ANALYST) Anatomical Region Laterality Modality Chest Magnetic Resonan ce 05/25/2020 12:2 1 PM MATERIAL FLOW ANALYST Impressions 05/25/2020 1:49 PM MATERIAL FLOW ANALYST IMPRESSION: 1. No acute fracture, marrow edema or a malignant marrow replacing process is identified, throughout. 2. Mild scoliosis of the thoracic and lumbar spine as discussed above. 3. Severe compression of bilateral lateral recesses and the traversing L5 nerves in the lateral recesses at L4-L5. 4. Muscular atrophy of the posterior paravertebral muscles of lumbosacral region. 5. The cord is normal. 6. Severe left neural foraminal stenosis at C5-C6. Impingement on exiting left C6 nerve in the foramen is possible. 7. A 2.6 cm apparent cystic lesion of the right lobe of thyroid is not properly characterized on this study. Consider further evaluation with thyroid sonography. This report was electronically signed by ARTIE DICKENS on 05/25/2020 1:49 PM . Narrative 05/25/2020 1:49 PM MATERIAL FLOW ANALYST EXAMINATION: 1. MRI OF THE CERVICAL SPINE WITHOUT CONTRAST 2. MRI OF THE THORACIC SPINE WITHOUT CONTRAST 3. MRI OF THE LUMBAR SPINE WITHOUT CONTRAST HISTORY: M54.9: Back pain, unspecified back location, unspecified back pain laterality, unspecified chronicity; M54.10: Radiculopathy, unspecified spinal region; G95.9: Myelopathy COMPARISON: None. Correlation: Cervical spine radiographs of the entire spine dated 05/20/2020. TECHNIQUE: MRI of the cervical, thoracic, and lumbar spine was performed without contrast according to standard protocols. FINDINGS: CERVICAL SPINE: There is gentle kyphosis of cervical spine centered at C4-C5. No fracture, perched facet, spondylolisthesis, marrow edema or a suspicious intrinsic bony lesion is identified. Vertebral bodies are normal in height without evidence of compression fractures. Marrow signal intensity is normal. The craniocervical junction and visualized portions of the posterior fossa appear normal. The spinal cord appears normal in size, contour and signal intensity without intramedullary signal changes or external compression. The anterior and posterior longitudinal ligaments as well as the posterior ligamentous complex appear intact. All the discs are desiccated. There is shortening of disc space height as well as anterior and posterior endplate spurring at C4-C5, C5-C6 and C6-C7 levels suggestive of moderate degenerative disc disease. There are associated broad-based posterior disc-osteophyte complexes at each of these three levels with effacement of ventral subarachnoid space, but without causing significant central canal stenosis or cord compression. The remainder of the intervertebral discs are normal in height. No other evidence of posterior disc abnormality or central canal stenosis is seen. There are varying degrees of mild facet osteoarthritis at all levels. Moderate to severe osteoarthritis of bilateral uncovertebral joints at C4-C5, C5-C6 and C6-C7 levels are present with associated posterior spurring causing severe neural foraminal stenosis on the left side at C5-C6 and moderate neural foraminal stenosis of the remainder of the neural foramina at these three levels. The remainder of the uncovertebral joints appear normal. No other evidence of significant neural foraminal stenosis is seen. Small perineural cysts in the right neural foramina at the C6-C7 and C7-T1 levels and bilaterally at T1-T2 level are present. Normal flow voids are identified in the vertebral arteries. There is a 2.6 cm well-circumscribed T2 hyperintense, T1 hypointense, STIR hyperintense cystic nodule in the right lobe of thyroid seen on sagittal images. No other soft tissue abnormality is identified. THORACIC SPINE: Kyphosis is normal. There is mild convex levoscoliosis of the thoracic spine centered at T8. No fracture, perched facet, spondylolisthesis, marrow edema or a malignant marrow replacing process is identified. Vertebral bodies are normal in height without evidence of compression fractures. The spinal cord appears normal in size, contour and signal intensity without intramedullary signal abnormalities or external compression. The anterior and posterior longitudinal ligaments as well as the posterior ligamentous complex appear intact. The intervertebral discs appear normal in height, but are desiccated. No posterior disc herniation or central canal stenosis is seen, throughout. There is mild broad-based posterior bulging of T11-T12 disc, mild bilateral facet osteoarthritis and focal calcification of ligamentum flavum on the right side at T11-T12 causing mild stenosis of thecal sac from the right lateral side (series 100, image 48). There is mild facet osteoarthritis at multiple levels. No neural foraminal stenosis is seen. Multilevel tiny perineural cysts are present at T4-T5, T7-T8 and T12-L1 levels. No soft tissue abnormality is identified. LUMBAR SPINE: Lordosis is normal. There is mild convex levoscoliosis of the lumbar spine centered at L4. There is a rudimentary S1-S2 disc. Vertebral bodies are normal in height without evidence of compression fractures. No fracture, spondylolisthesis, marrow edema or a malignant marrow replacing process is identified. There is mild fatty metaplasia of the sacrum and the pelvis. The conus medullaris terminates at the level of L2 and the distal spinal cord signal intensity is normal. The anterior and posterior longitudinal ligaments as well as the posterior ligamentous complex appear intact. There is muscular atrophy of posterior paravertebral muscles in the entire lumbar spine especially at the lumbosacral junction sacral region with fatty replacement of muscles. Incidentally noted is a 7 mm well-circumscribed T2 hyperintense lesion of posterior segment of right hepatic lobe. Only the L1-L2 disc is normal in height, but is borderline desiccated. There is moderate shortening of the heights of L5-S1 followed by L2-L3 and L3-L4 disc spaces consistent with degenerative disc disease. There is anterior endplate osteophytosis at L2-L3. T12-L1 and L1-L2: There is no posterior disc herniation or bulging. Mild hypertrophy of ligamentum flavum and mild facet osteoarthritis is present. The central canal, lower cord and conus are normal. The neural foramina and exiting nerves are normal. A small perineural cyst in the right T12-L1 neural foramen is visible. L2-L3: The combination of mild to moderate circumferential bulging, symmetric hypertrophy of ligamentum flavum and moderate bilateral facet osteoarthritis results in mild bilateral lateral recess stenosis and borderline stenosis of thecal sac anteroposteriorly in midline. There is encroachment of the bulged disc into inferior recesses of neural foramina causing mild neural foraminal stenosis without neural impingement. L3-L4: The combination of mild circumferential disc bulging, mild symmetric hypertrophy of ligamentum flavum and mild facet osteoarthritis are present without causing central canal stenosis. Borderline lateral recess stenosis is present. There is no significant neural foraminal stenosis. L4-L5: There is a central posterior disc protrusion, superimposed on mild circumferential disc bulging. There is moderate symmetric hypertrophy of ligamentum flavum and mild bilateral facet osteoarthritis. The protruded disc and hypertrophied ligamentum flavum severely compress the bilateral lateral recesses at L4-L5 and compress the traversing L5 nerves in the lateral recesses, bilaterally. No significant neural foraminal stenosis or impingement on exiting nerves in the neural foramina is identified. L5-S1: There is no posterior disc abnormality, central canal stenosis, lateral recess stenosis, significant facet osteoarthritis or neural impingement is identified. Procedure Note Artie Dickens MD - 05/25/2020 EXAMINATION: 1. MRI OF THE CERVICAL SPINE WITHOUT CONTRAST 2. MRI OF THE THORACIC SPINE WITHOUT CONTRAST 3. MRI OF THE LUMBAR SPINE WITHOUT CONTRAST HISTORY: M54.9: Back pain, unspecified back location, unspecified back pain laterality, unspecified chronicity; M54.10: Radiculopathy, unspecified spinal region; G95.9: Myelopathy COMPARISON: None. Correlation: Cervical spine radiographs of the entire spine date05/20/2020. TECHNIQUE: MRI of the cervical, thoracic, and lumbar spine was performed without contrast according to standard protocols. FINDINGS: CERVICAL SPINE: There is gentle kyphosis of cervical spine centered at C4-C5. Nofracture, perched facet, spondylolisthesis, marrow edema or a suspicious intrinsic bony lesion is identified. Vertebral bodies are normal in height without evidence of compression fractures. Marrow signal intensity is normal.The craniocervical junction and visualized portions of the posterior fossa appear normal. The spinal cord appears normal in size, contour andsignal intensity without intramedullary signal changes or external compression. The anterior and posterior longitudinal ligaments as well as theposterior ligamentous complex appear intact. All the discs are desiccated. There is shortening of disc space heightas well as anterior and posterior endplate spurring at C4-C5, C5-C6 andC6-C7 levels suggestive of moderate degenerative disc disease. There are associated broad-based posterior disc-osteophyte complexes at each of these three levels with effacement of ventral subarachnoid space, but without causing significant central canal stenosis or cord compression. The remainder of the intervertebral discs are normal in height. No other evidence of posterior disc abnormality or central canal stenosis isseen. There are varying degrees of mild facet osteoarthritis at all levels. Moderate to severe osteoarthritis of bilateral uncovertebral joints at C4-C5, C5-C6 and C6-C7 levels are present with associated posterior spurring causing severe neural foraminal stenosis on the left side at C5-C6 and moderate neural foraminal stenosis of the remainder of the neural foramina at these three levels. The remainder of theuncovertebral joints appear normal. No other evidence of significant neural foraminal stenosis is seen. Small perineural cysts in the right neural foramina at the C6-C7 and C7-T1 levels and bilaterally at T1-T2 level are present. Normal flow voids are identified in the vertebral arteries. There is a 2.6 cm well-circumscribed T2 hyperintense, T1 hypointense,STIR hyperintense cystic nodule in the right lobe of thyroid seen on sagittal images. No other soft tissue abnormality is identified. THORACIC SPINE: Kyphosis is normal. There is mild convex levoscoliosis of the thoracic spine centered at T8. No fracture, perched facet, spondylolisthesis, marrow edema or a malignant marrow replacing process is identified. Vertebral bodies are normal in height without evidence of compression fractures. The spinal cord appears normal in size, contour and signal intensity without intramedullary signal abnormalities or external compression. The anterior and posterior longitudinal ligaments as wellas the posterior ligamentous complex appear intact. The intervertebral discs appear normal in height, but are desiccated. No posterior disc herniation or central canal stenosis is seen, throughout. There is mild broad-based posterior bulging of T11-T12 disc, mild bilateral facet osteoarthritis and focal calcification of ligamentum flavum on the right side at T11-T12 causing mild stenosis of thecal sac from the right lateral side (series 100, image 48). There is mild facet osteoarthritis at multiple levels. No neural foraminal stenosis is seen. Multilevel tiny perineural cysts are present at T4-T5, T7-T8 and T12-L1 levels. No soft tissue abnormality is identified. LUMBAR SPINE: Lordosis is normal. There is mild convex levoscoliosis of the lumbarspine centered at L4. There is a rudimentary S1-S2 disc. Vertebral bodies are normal in height without evidence of compression fractures. No fracture, spondylolisthesis, marrow edema or a malignant marrow replacing processis identified. There is mild fatty metaplasia of the sacrum and the pelvis. The conus medullaris terminates at the level of L2 and the distal spinal cord signal intensity is normal. The anterior and posterior longitudinal ligaments as well as the posterior ligamentous complex appear intact. There is muscular atrophy of posterior paravertebral muscles in theentire lumbar spine especially at the lumbosacral junction sacral region with fatty replacement of muscles. Incidentally noted is a 7 mm well-circumscribed T2 hyperintense lesion of posterior segment of right hepatic lobe. Only the L1-L2 disc is normal in height, but is borderline desiccated. There is moderate shortening of the heights of L5-S1 followed by L2-L3and L3-L4 disc spaces consistent with degenerative disc disease. There is anterior endplate osteophytosis at L2-L3. T12-L1 and L1-L2: There is no posterior disc herniation or bulging. Mild hypertrophy of ligamentum flavum and mild facet osteoarthritis ispresent. The central canal, lower cord and conus are normal. The neural foramina and exiting nerves are normal. A small perineural cyst in the [id number] neural foramen is visible. L2-L3: The combination of mild to moderate circumferential bulging, symmetric hypertrophy of ligamentum flavum and moderate bilateral facet osteoarthritis results in mild bilateral lateral recess stenosis and borderline stenosis of thecal sac anteroposteriorly in midline. There is encroachment of the bulged disc into inferior recesses of neuralforamina causing mild neural foraminal stenosis without neural impingement. L3-L4: The combination of mild circumferential disc bulging, mild symmetric hypertrophy of ligamentum flavum and mild facet osteoarthritis are present without causing central canal stenosis. Borderline lateral recess stenosis is present. There is no significant neural foraminal stenosis. L4-L5: There is a central posterior disc protrusion, superimposed onmild circumferential disc bulging. There is moderate symmetric hypertrophy of ligamentum flavum and mild bilateral facet osteoarthritis. The protruded disc and hypertrophied ligamentum flavum severely compress the bilateral lateral recesses at L4-L5 and compress the traversing L5 nerves in the lateral recesses, bilaterally. No significant neural foraminal stenosisor impingement on exiting nerves in the neural foramina is identified. L5-S1: There is no posterior disc abnormality, central canal stenosis, lateral recess stenosis, significant facet osteoarthritis or neural impingement is identified. IMPRESSION: 1. No acute fracture, marrow edema or a malignant marrow replacingprocess is identified, throughout. 2. Mild scoliosis of the thoracic and lumbar spine as discussed above. 3. Severe compression of bilateral lateral recesses and the traversingL5 nerves in the lateral recesses at L4-L5. 4. Muscular atrophy of the posterior paravertebral muscles oflumbosacral region. 5. The cord is normal. 6. Severe left neural foraminal stenosis at C5-C6. Impingement onexiting left C6 nerve in the foramen is possible. 7. A 2.6 cm apparent cystic lesion of the right lobe of thyroid is not properly characterized on this study. Consider further evaluation with thyroid sonography. This report was electronically signed by ARTIE DICKENS on 05/25/2020 1:49 PM . Lisa Barakat MD MR ORDERABLES * MRI LUMBAR SPINE WO CONTRAST (05/25/2020 10:32 AM MATERIAL FLOW ANALYST) Anatomical Region Laterality Modality Spine Magnetic Resonan ce 05/25/2020 12:2 1 PM MATERIAL FLOW ANALYST Impressions 05/25/2020 1:49 PM MATERIAL FLOW ANALYST IMPRESSION: 1. No acute fracture, marrow edema or a malignant marrow replacing process is identified, throughout. 2. Mild scoliosis of the thoracic and lumbar spine as discussed above. 3. Severe compression of bilateral lateral recesses and the traversing L5 nerves in the lateral recesses at L4-L5. 4. Muscular atrophy of the posterior paravertebral muscles of lumbosacral region. 5. The cord is normal. 6. Severe left neural foraminal stenosis at C5-C6. Impingement on exiting left C6 nerve in the foramen is possible. 7. A 2.6 cm apparent cystic lesion of the right lobe of thyroid is not properly characterized on this study. Consider further evaluation with thyroid sonography. This report was electronically signed by ARTIE DICKENS on 05/25/2020 1:49 PM . Narrative 05/25/2020 1:49 PM MATERIAL FLOW ANALYST EXAMINATION: 1. MRI OF THE CERVICAL SPINE WITHOUT CONTRAST 2. MRI OF THE THORACIC SPINE WITHOUT CONTRAST 3. MRI OF THE LUMBAR SPINE WITHOUT CONTRAST HISTORY: M54.9: Back pain, unspecified back location, unspecified back pain laterality, unspecified chronicity; M54.10: Radiculopathy, unspecified spinal region; G95.9: Myelopathy COMPARISON: None. Correlation: Cervical spine radiographs of the entire spine dated 05/20/2020. TECHNIQUE: MRI of the cervical, thoracic, and lumbar spine was performed without contrast according to standard protocols. FINDINGS: CERVICAL SPINE: There is gentle kyphosis of cervical spine centered at C4-C5. No fracture, perched facet, spondylolisthesis, marrow edema or a suspicious intrinsic bony lesion is identified. Vertebral bodies are normal in height without evidence of compression fractures. Marrow signal intensity is normal. The craniocervical junction and visualized portions of the posterior fossa appear normal. The spinal cord appears normal in size, contour and signal intensity without intramedullary signal changes or external compression. The anterior and posterior longitudinal ligaments as well as the posterior ligamentous complex appear intact. All the discs are desiccated. There is shortening of disc space height as well as anterior and posterior endplate spurring at C4-C5, C5-C6 and C6-C7 levels suggestive of moderate degenerative disc disease. There are associated broad-based posterior disc-osteophyte complexes at each of these three levels with effacement of ventral subarachnoid space, but without causing significant central canal stenosis or cord compression. The remainder of the intervertebral discs are normal in height. No other evidence of posterior disc abnormality or central canal stenosis is seen. There are varying degrees of mild facet osteoarthritis at all levels. Moderate to severe osteoarthritis of bilateral uncovertebral joints at C4-C5, C5-C6 and C6-C7 levels are present with associated posterior spurring causing severe neural foraminal stenosis on the left side at C5-C6 and moderate neural foraminal stenosis of the remainder of the neural foramina at these three levels. The remainder of the uncovertebral joints appear normal. No other evidence of significant neural foraminal stenosis is seen. Small perineural cysts in the right neural foramina at the C6-C7 and C7-T1 levels and bilaterally at T1-T2 level are present. Normal flow voids are identified in the vertebral arteries. There is a 2.6 cm well-circumscribed T2 hyperintense, T1 hypointense, STIR hyperintense cystic nodule in the right lobe of thyroid seen on sagittal images. No other soft tissue abnormality is identified. THORACIC SPINE: Kyphosis is normal. There is mild convex levoscoliosis of the thoracic spine centered at T8. No fracture, perched facet, spondylolisthesis, marrow edema or a malignant marrow replacing process is identified. Vertebral bodies are normal in height without evidence of compression fractures. The spinal cord appears normal in size, contour and signal intensity without intramedullary signal abnormalities or external compression. The anterior and posterior longitudinal ligaments as well as the posterior ligamentous complex appear intact. The intervertebral discs appear normal in height, but are desiccated. No posterior disc herniation or central canal stenosis is seen, throughout. There is mild broad-based posterior bulging of T11-T12 disc, mild bilateral facet osteoarthritis and focal calcification of ligamentum flavum on the right side at T11-T12 causing mild stenosis of thecal sac from the right lateral side (series 100, image 48). There is mild facet osteoarthritis at multiple levels. No neural foraminal stenosis is seen. Multilevel tiny perineural cysts are present at T4-T5, T7-T8 and T12-L1 levels. No soft tissue abnormality is identified. LUMBAR SPINE: Lordosis is normal. There is mild convex levoscoliosis of the lumbar spine centered at L4. There is a rudimentary S1-S2 disc. Vertebral bodies are normal in height without evidence of compression fractures. No fracture, spondylolisthesis, marrow edema or a malignant marrow replacing process is identified. There is mild fatty metaplasia of the sacrum and the pelvis. The conus medullaris terminates at the level of L2 and the distal spinal cord signal intensity is normal. The anterior and posterior longitudinal ligaments as well as the posterior ligamentous complex appear intact. There is muscular atrophy of posterior paravertebral muscles in the entire lumbar spine especially at the lumbosacral junction sacral region with fatty replacement of muscles. Incidentally noted is a 7 mm well-circumscribed T2 hyperintense lesion of posterior segment of right hepatic lobe. Only the L1-L2 disc is normal in height, but is borderline desiccated. There is moderate shortening of the heights of L5-S1 followed by L2-L3 and L3-L4 disc spaces consistent with degenerative disc disease. There is anterior endplate osteophytosis at L2-L3. T12-L1 and L1-L2: There is no posterior disc herniation or bulging. Mild hypertrophy of ligamentum flavum and mild facet osteoarthritis is present. The central canal, lower cord and conus are normal. The neural foramina and exiting nerves are normal. A small perineural cyst in the right T12-L1 neural foramen is visible. L2-L3: The combination of mild to moderate circumferential bulging, symmetric hypertrophy of ligamentum flavum and moderate bilateral facet osteoarthritis results in mild bilateral lateral recess stenosis and borderline stenosis of thecal sac anteroposteriorly in midline. There is encroachment of the bulged disc into inferior recesses of neural foramina causing mild neural foraminal stenosis without neural impingement. L3-L4: The combination of mild circumferential disc bulging, mild symmetric hypertrophy of ligamentum flavum and mild facet osteoarthritis are present without causing central canal stenosis. Borderline lateral recess stenosis is present. There is no significant neural foraminal stenosis. L4-L5: There is a central posterior disc protrusion, superimposed on mild circumferential disc bulging. There is moderate symmetric hypertrophy of ligamentum flavum and mild bilateral facet osteoarthritis. The protruded disc and hypertrophied ligamentum flavum severely compress the bilateral lateral recesses at L4-L5 and compress the traversing L5 nerves in the lateral recesses, bilaterally. No significant neural foraminal stenosis or impingement on exiting nerves in the neural foramina is identified. L5-S1: There is no posterior disc abnormality, central canal stenosis, lateral recess stenosis, significant facet osteoarthritis or neural impingement is identified. Procedure Note Artie Dickens MD - 05/25/2020 EXAMINATION: 1. MRI OF THE CERVICAL SPINE WITHOUT CONTRAST 2. MRI OF THE THORACIC SPINE WITHOUT CONTRAST 3. MRI OF THE LUMBAR SPINE WITHOUT CONTRAST HISTORY: M54.9: Back pain, unspecified back location, unspecified back pain laterality, unspecified chronicity; M54.10: Radiculopathy, unspecified spinal region; G95.9: Myelopathy COMPARISON: None. Correlation: Cervical spine radiographs of the entire spine date05/20/2020. TECHNIQUE: MRI of the cervical, thoracic, and lumbar spine was performed without contrast according to standard protocols. FINDINGS: CERVICAL SPINE: There is gentle kyphosis of cervical spine centered at C4-C5. Nofracture, perched facet, spondylolisthesis, marrow edema or a suspicious intrinsic bony lesion is identified. Vertebral bodies are normal in height without evidence of compression fractures. Marrow signal intensity is normal.The craniocervical junction and visualized portions of the posterior fossa appear normal. The spinal cord appears normal in size, contour andsignal intensity without intramedullary signal changes or external compression. The anterior and posterior longitudinal ligaments as well as theposterior ligamentous complex appear intact. All the discs are desiccated. There is shortening of disc space heightas well as anterior and posterior endplate spurring at C4-C5, C5-C6 andC6-C7 levels suggestive of moderate degenerative disc disease. There are associated broad-based posterior disc-osteophyte complexes at each of these three levels with effacement of ventral subarachnoid space, but without causing significant central canal stenosis or cord compression. The remainder of the intervertebral discs are normal in height. No other evidence of posterior disc abnormality or central canal stenosis isseen. There are varying degrees of mild facet osteoarthritis at all levels. Moderate to severe osteoarthritis of bilateral uncovertebral joints at C4-C5, C5-C6 and C6-C7 levels are present with associated posterior spurring causing severe neural foraminal stenosis on the left side at C5-C6 and moderate neural foraminal stenosis of the remainder of the neural foramina at these three levels. The remainder of theuncovertebral joints appear normal. No other evidence of significant neural foraminal stenosis is seen. Small perineural cysts in the right neural foramina at the C6-C7 and C7-T1 levels and bilaterally at T1-T2 level are present. Normal flow voids are identified in the vertebral arteries. There is a 2.6 cm well-circumscribed T2 hyperintense, T1 hypointense,STIR hyperintense cystic nodule in the right lobe of thyroid seen on sagittal images. No other soft tissue abnormality is identified. THORACIC SPINE: Kyphosis is normal. There is mild convex levoscoliosis of the thoracic spine centered at T8. No fracture, perched facet, spondylolisthesis, marrow edema or a malignant marrow replacing process is identified. Vertebral bodies are normal in height without evidence of compression fractures. The spinal cord appears normal in size, contour and signal intensity without intramedullary signal abnormalities or external compression. The anterior and posterior longitudinal ligaments as wellas the posterior ligamentous complex appear intact. The intervertebral discs appear normal in height, but are desiccated. No posterior disc herniation or central canal stenosis is seen, throughout. There is mild broad-based posterior bulging of T11-T12 disc, mild bilateral facet osteoarthritis and focal calcification of ligamentum flavum on the right side at T11-T12 causing mild stenosis of thecal sac from the right lateral side (series 100, image 48). There is mild facet osteoarthritis at multiple levels. No neural foraminal stenosis is seen. Multilevel tiny perineural cysts are present at T4-T5, T7-T8 and T12-L1 levels. No soft tissue abnormality is identified. LUMBAR SPINE: Lordosis is normal. There is mild convex levoscoliosis of the lumbarspine centered at L4. There is a rudimentary S1-S2 disc. Vertebral bodies are normal in height without evidence of compression fractures. No fracture, spondylolisthesis, marrow edema or a malignant marrow replacing processis identified. There is mild fatty metaplasia of the sacrum and the pelvis. The conus medullaris terminates at the level of L2 and the distal spinal cord signal intensity is normal. The anterior and posterior longitudinal ligaments as well as the posterior ligamentous complex appear intact. There is muscular atrophy of posterior paravertebral muscles in theentire lumbar spine especially at the lumbosacral junction sacral region with fatty replacement of muscles. Incidentally noted is a 7 mm well-circumscribed T2 hyperintense lesion of posterior segment of right hepatic lobe. Only the L1-L2 disc is normal in height, but is borderline desiccated. There is moderate shortening of the heights of L5-S1 followed by L2-L3and L3-L4 disc spaces consistent with degenerative disc disease. There is anterior endplate osteophytosis at L2-L3. T12-L1 and L1-L2: There is no posterior disc herniation or bulging. Mild hypertrophy of ligamentum flavum and mild facet osteoarthritis ispresent. The central canal, lower cord and conus are normal. The neural foramina and exiting nerves are normal. A small perineural cyst in the [id number] neural foramen is visible. L2-L3: The combination of mild to moderate circumferential bulging, symmetric hypertrophy of ligamentum flavum and moderate bilateral facet osteoarthritis results in mild bilateral lateral recess stenosis and borderline stenosis of thecal sac anteroposteriorly in midline. There is encroachment of the bulged disc into inferior recesses of neuralforamina causing mild neural foraminal stenosis without neural impingement. L3-L4: The combination of mild circumferential disc bulging, mild symmetric hypertrophy of ligamentum flavum and mild facet osteoarthritis are present without causing central canal stenosis. Borderline lateral recess stenosis is present. There is no significant neural foraminal stenosis. L4-L5: There is a central posterior disc protrusion, superimposed onmild circumferential disc bulging. There is moderate symmetric hypertrophy of ligamentum flavum and mild bilateral facet osteoarthritis. The protruded disc and hypertrophied ligamentum flavum severely compress the bilateral lateral recesses at L4-L5 and compress the traversing L5 nerves in the lateral recesses, bilaterally. No significant neural foraminal stenosisor impingement on exiting nerves in the neural foramina is identified. L5-S1: There is no posterior disc abnormality, central canal stenosis, lateral recess stenosis, significant facet osteoarthritis or neural impingement is identified. IMPRESSION: 1. No acute fracture, marrow edema or a malignant marrow replacingprocess is identified, throughout. 2. Mild scoliosis of the thoracic and lumbar spine as discussed above. 3. Severe compression of bilateral lateral recesses and the traversingL5 nerves in the lateral recesses at L4-L5. 4. Muscular atrophy of the posterior paravertebral muscles oflumbosacral region. 5. The cord is normal. 6. Severe left neural foraminal stenosis at C5-C6. Impingement onexiting left C6 nerve in the foramen is possible. 7. A 2.6 cm apparent cystic lesion of the right lobe of thyroid is not properly characterized on this study. Consider further evaluation with thyroid sonography. This report was electronically signed by ARTIE DICKENS on 05/25/2020 1:49 PM . Lisa Barakat MD MR ORDERABLES * MRI CERVICAL SPINE WO CONTRAST (05/25/2020 10:32 AM MATERIAL FLOW ANALYST) Anatomical Region Laterality Modality Pelvis Magnetic Resonan ce 05/25/2020 12:2 1 PM MATERIAL FLOW ANALYST Impressions 05/25/2020 1:49 PM MATERIAL FLOW ANALYST IMPRESSION: 1. No acute fracture, marrow edema or a malignant marrow replacing process is identified, throughout. 2. Mild scoliosis of the thoracic and lumbar spine as discussed above. 3. Severe compression of bilateral lateral recesses and the traversing L5 nerves in the lateral recesses at L4-L5. 4. Muscular atrophy of the posterior paravertebral muscles of lumbosacral region. 5. The cord is normal. 6. Severe left neural foraminal stenosis at C5-C6. Impingement on exiting left C6 nerve in the foramen is possible. 7. A 2.6 cm apparent cystic lesion of the right lobe of thyroid is not properly characterized on this study. Consider further evaluation with thyroid sonography. This report was electronically signed by ARTIE DICKENS on 05/25/2020 1:49 PM . Narrative 05/25/2020 1:49 PM MATERIAL FLOW ANALYST EXAMINATION: 1. MRI OF THE CERVICAL SPINE WITHOUT CONTRAST 2. MRI OF THE THORACIC SPINE WITHOUT CONTRAST 3. MRI OF THE LUMBAR SPINE WITHOUT CONTRAST HISTORY: M54.9: Back pain, unspecified back location, unspecified back pain laterality, unspecified chronicity; M54.10: Radiculopathy, unspecified spinal region; G95.9: Myelopathy COMPARISON: None. Correlation: Cervical spine radiographs of the entire spine dated 05/20/2020. TECHNIQUE: MRI of the cervical, thoracic, and lumbar spine was performed without contrast according to standard protocols. FINDINGS: CERVICAL SPINE: There is gentle kyphosis of cervical spine centered at C4-C5. No fracture, perched facet, spondylolisthesis, marrow edema or a suspicious intrinsic bony lesion is identified. Vertebral bodies are normal in height without evidence of compression fractures. Marrow signal intensity is normal. The craniocervical junction and visualized portions of the posterior fossa appear normal. The spinal cord appears normal in size, contour and signal intensity without intramedullary signal changes or external compression. The anterior and posterior longitudinal ligaments as well as the posterior ligamentous complex appear intact. All the discs are desiccated. There is shortening of disc space height as well as anterior and posterior endplate spurring at C4-C5, C5-C6 and C6-C7 levels suggestive of moderate degenerative disc disease. There are associated broad-based posterior disc-osteophyte complexes at each of these three levels with effacement of ventral subarachnoid space, but without causing significant central canal stenosis or cord compression. The remainder of the intervertebral discs are normal in height. No other evidence of posterior disc abnormality or central canal stenosis is seen. There are varying degrees of mild facet osteoarthritis at all levels. Moderate to severe osteoarthritis of bilateral uncovertebral joints at C4-C5, C5-C6 and C6-C7 levels are present with associated posterior spurring causing severe neural foraminal stenosis on the left side at C5-C6 and moderate neural foraminal stenosis of the remainder of the neural foramina at these three levels. The remainder of the uncovertebral joints appear normal. No other evidence of significant neural foraminal stenosis is seen. Small perineural cysts in the right neural foramina at the C6-C7 and C7-T1 levels and bilaterally at T1-T2 level are present. Normal flow voids are identified in the vertebral arteries. There is a 2.6 cm well-circumscribed T2 hyperintense, T1 hypointense, STIR hyperintense cystic nodule in the right lobe of thyroid seen on sagittal images. No other soft tissue abnormality is identified. THORACIC SPINE: Kyphosis is normal. There is mild convex levoscoliosis of the thoracic spine centered at T8. No fracture, perched facet, spondylolisthesis, marrow edema or a malignant marrow replacing process is identified. Vertebral bodies are normal in height without evidence of compression fractures. The spinal cord appears normal in size, contour and signal intensity without intramedullary signal abnormalities or external compression. The anterior and posterior longitudinal ligaments as well as the posterior ligamentous complex appear intact. The intervertebral discs appear normal in height, but are desiccated. No posterior disc herniation or central canal stenosis is seen, throughout. There is mild broad-based posterior bulging of T11-T12 disc, mild bilateral facet osteoarthritis and focal calcification of ligamentum flavum on the right side at T11-T12 causing mild stenosis of thecal sac from the right lateral side (series 100, image 48). There is mild facet osteoarthritis at multiple levels. No neural foraminal stenosis is seen. Multilevel tiny perineural cysts are present at T4-T5, T7-T8 and T12-L1 levels. No soft tissue abnormality is identified. LUMBAR SPINE: Lordosis is normal. There is mild convex levoscoliosis of the lumbar spine centered at L4. There is a rudimentary S1-S2 disc. Vertebral bodies are normal in height without evidence of compression fractures. No fracture, spondylolisthesis, marrow edema or a malignant marrow replacing process is identified. There is mild fatty metaplasia of the sacrum and the pelvis. The conus medullaris terminates at the level of L2 and the distal spinal cord signal intensity is normal. The anterior and posterior longitudinal ligaments as well as the posterior ligamentous complex appear intact. There is muscular atrophy of posterior paravertebral muscles in the entire lumbar spine especially at the lumbosacral junction sacral region with fatty replacement of muscles. Incidentally noted is a 7 mm well-circumscribed T2 hyperintense lesion of posterior segment of right hepatic lobe. Only the L1-L2 disc is normal in height, but is borderline desiccated. There is moderate shortening of the heights of L5-S1 followed by L2-L3 and L3-L4 disc spaces consistent with degenerative disc disease. There is anterior endplate osteophytosis at L2-L3. T12-L1 and L1-L2: There is no posterior disc herniation or bulging. Mild hypertrophy of ligamentum flavum and mild facet osteoarthritis is present. The central canal, lower cord and conus are normal. The neural foramina and exiting nerves are normal. A small perineural cyst in the right T12-L1 neural foramen is visible. L2-L3: The combination of mild to moderate circumferential bulging, symmetric hypertrophy of ligamentum flavum and moderate bilateral facet osteoarthritis results in mild bilateral lateral recess stenosis and borderline stenosis of thecal sac anteroposteriorly in midline. There is encroachment of the bulged disc into inferior recesses of neural foramina causing mild neural foraminal stenosis without neural impingement. L3-L4: The combination of mild circumferential disc bulging, mild symmetric hypertrophy of ligamentum flavum and mild facet osteoarthritis are present without causing central canal stenosis. Borderline lateral recess stenosis is present. There is no significant neural foraminal stenosis. L4-L5: There is a central posterior disc protrusion, superimposed on mild circumferential disc bulging. There is moderate symmetric hypertrophy of ligamentum flavum and mild bilateral facet osteoarthritis. The protruded disc and hypertrophied ligamentum flavum severely compress the bilateral lateral recesses at L4-L5 and compress the traversing L5 nerves in the lateral recesses, bilaterally. No significant neural foraminal stenosis or impingement on exiting nerves in the neural foramina is identified. L5-S1: There is no posterior disc abnormality, central canal stenosis, lateral recess stenosis, significant facet osteoarthritis or neural impingement is identified. Procedure Note Artie Dickens MD - 05/25/2020 EXAMINATION: 1. MRI OF THE CERVICAL SPINE WITHOUT CONTRAST 2. MRI OF THE THORACIC SPINE WITHOUT CONTRAST 3. MRI OF THE LUMBAR SPINE WITHOUT CONTRAST HISTORY: M54.9: Back pain, unspecified back location, unspecified back pain laterality, unspecified chronicity; M54.10: Radiculopathy, unspecified spinal region; G95.9: Myelopathy COMPARISON: None. Correlation: Cervical spine radiographs of the entire spine date05/20/2020. TECHNIQUE: MRI of the cervical, thoracic, and lumbar spine was performed without contrast according to standard protocols. FINDINGS: CERVICAL SPINE: There is gentle kyphosis of cervical spine centered at C4-C5. Nofracture, perched facet, spondylolisthesis, marrow edema or a suspicious intrinsic bony lesion is identified. Vertebral bodies are normal in height without evidence of compression fractures. Marrow signal intensity is normal.The craniocervical junction and visualized portions of the posterior fossa appear normal. The spinal cord appears normal in size, contour andsignal intensity without intramedullary signal changes or external compression. The anterior and posterior longitudinal ligaments as well as theposterior ligamentous complex appear intact. All the discs are desiccated. There is shortening of disc space heightas well as anterior and posterior endplate spurring at C4-C5, C5-C6 andC6-C7 levels suggestive of moderate degenerative disc disease. There are associated broad-based posterior disc-osteophyte complexes at each of these three levels with effacement of ventral subarachnoid space, but without causing significant central canal stenosis or cord compression. The remainder of the intervertebral discs are normal in height. No other evidence of posterior disc abnormality or central canal stenosis isseen. There are varying degrees of mild facet osteoarthritis at all levels. Moderate to severe osteoarthritis of bilateral uncovertebral joints at C4-C5, C5-C6 and C6-C7 levels are present with associated posterior spurring causing severe neural foraminal stenosis on the left side at C5-C6 and moderate neural foraminal stenosis of the remainder of the neural foramina at these three levels. The remainder of theuncovertebral joints appear normal. No other evidence of significant neural foraminal stenosis is seen. Small perineural cysts in the right neural foramina at the C6-C7 and C7-T1 levels and bilaterally at T1-T2 level are present. Normal flow voids are identified in the vertebral arteries. There is a 2.6 cm well-circumscribed T2 hyperintense, T1 hypointense,STIR hyperintense cystic nodule in the right lobe of thyroid seen on sagittal images. No other soft tissue abnormality is identified. THORACIC SPINE: Kyphosis is normal. There is mild convex levoscoliosis of the thoracic spine centered at T8. No fracture, perched facet, spondylolisthesis, marrow edema or a malignant marrow replacing process is identified. Vertebral bodies are normal in height without evidence of compression fractures. The spinal cord appears normal in size, contour and signal intensity without intramedullary signal abnormalities or external compression. The anterior and posterior longitudinal ligaments as wellas the posterior ligamentous complex appear intact. The intervertebral discs appear normal in height, but are desiccated. No posterior disc herniation or central canal stenosis is seen, throughout. There is mild broad-based posterior bulging of T11-T12 disc, mild bilateral facet osteoarthritis and focal calcification of ligamentum flavum on the right side at T11-T12 causing mild stenosis of thecal sac from the right lateral side (series 100, image 48). There is mild facet osteoarthritis at multiple levels. No neural foraminal stenosis is seen. Multilevel tiny perineural cysts are present at T4-T5, T7-T8 and T12-L1 levels. No soft tissue abnormality is identified. LUMBAR SPINE: Lordosis is normal. There is mild convex levoscoliosis of the lumbarspine centered at L4. There is a rudimentary S1-S2 disc. Vertebral bodies are normal in height without evidence of compression fractures. No fracture, spondylolisthesis, marrow edema or a malignant marrow replacing processis identified. There is mild fatty metaplasia of the sacrum and the pelvis. The conus medullaris terminates at the level of L2 and the distal spinal cord signal intensity is normal. The anterior and posterior longitudinal ligaments as well as the posterior ligamentous complex appear intact. There is muscular atrophy of posterior paravertebral muscles in theentire lumbar spine especially at the lumbosacral junction sacral region with fatty replacement of muscles. Incidentally noted is a 7 mm well-circumscribed T2 hyperintense lesion of posterior segment of right hepatic lobe. Only the L1-L2 disc is normal in height, but is borderline desiccated. There is moderate shortening of the heights of L5-S1 followed by L2-L3and L3-L4 disc spaces consistent with degenerative disc disease. There is anterior endplate osteophytosis at L2-L3. T12-L1 and L1-L2: There is no posterior disc herniation or bulging. Mild hypertrophy of ligamentum flavum and mild facet osteoarthritis ispresent. The central canal, lower cord and conus are normal. The neural foramina and exiting nerves are normal. A small perineural cyst in the [id number] neural foramen is visible. L2-L3: The combination of mild to moderate circumferential bulging, symmetric hypertrophy of ligamentum flavum and moderate bilateral facet osteoarthritis results in mild bilateral lateral recess stenosis and borderline stenosis of thecal sac anteroposteriorly in midline. There is encroachment of the bulged disc into inferior recesses of neuralforamina causing mild neural foraminal stenosis without neural impingement. L3-L4: The combination of mild circumferential disc bulging, mild symmetric hypertrophy of ligamentum flavum and mild facet osteoarthritis are present without causing central canal stenosis. Borderline lateral recess stenosis is present. There is no significant neural foraminal stenosis. L4-L5: There is a central posterior disc protrusion, superimposed onmild circumferential disc bulging. There is moderate symmetric hypertrophy of ligamentum flavum and mild bilateral facet osteoarthritis. The protruded disc and hypertrophied ligamentum flavum severely compress the bilateral lateral recesses at L4-L5 and compress the traversing L5 nerves in the lateral recesses, bilaterally. No significant neural foraminal stenosisor impingement on exiting nerves in the neural foramina is identified. L5-S1: There is no posterior disc abnormality, central canal stenosis, lateral recess stenosis, significant facet osteoarthritis or neural impingement is identified. IMPRESSION: 1. No acute fracture, marrow edema or a malignant marrow replacingprocess is identified, throughout. 2. Mild scoliosis of the thoracic and lumbar spine as discussed above. 3. Severe compression of bilateral lateral recesses and the traversingL5 nerves in the lateral recesses at L4-L5. 4. Muscular atrophy of the posterior paravertebral muscles oflumbosacral region. 5. The cord is normal. 6. Severe left neural foraminal stenosis at C5-C6. Impingement onexiting left C6 nerve in the foramen is possible. 7. A 2.6 cm apparent cystic lesion of the right lobe of thyroid is not properly characterized on this study. Consider further evaluation with thyroid sonography. This report was electronically signed by ARTIE DICKENS on 05/25/2020 1:49 PM . Lisa Barakat MD MR ORDERABLES * XR SPINE ENTIRE 2 OR 3VW (05/20/2020 1:20 PM MATERIAL FLOW ANALYST) Anatomical Region Laterality Modality Spine Radiographic Kathleen ging 05/20/2020 4:05 PM MATERIAL FLOW ANALYST Impressions 05/20/2020 4:08 PM MATERIAL FLOW ANALYST IMPRESSION: Thoracolumbar scoliosis with sagittal plane imbalance. This report was electronically signed by GIL BERNARD MD on 05/20/2020 4:08 PM . Narrative 05/20/2020 4:08 PM MATERIAL FLOW ANALYST Exam: XR SPINE ENTIRE 2 VW History: M54.9: Back pain, unspecified back location, unspecified back pain laterality, unspecified chronicity Comparison: None. Findings: There is thoracolumbar scoliosis including a dextro curve measuring 15 degrees from T11 to L4. There is straightening of the usual lumbar lordosis and thoracic kyphosis. There is sagittal plane imbalance with vertical axis measuring +11 cm. There is pelvic tilt with the left iliac crest higher than the right. There are moderate degenerative changes. Procedure Note Gil Bernard MD - 05/20/2020 Exam: XR SPINE ENTIRE 2 VW History: M54.9: Back pain, unspecified back location, unspecified back pain laterality, unspecified chronicity Comparison: None. Findings: There is thoracolumbar scoliosis including a dextro curve measuring 15 degrees from T11 to L4. There is straightening of the usual lumbar lordosis and thoracic kyphosis. There is sagittal plane imbalance with vertical axis measuring +11 cm. There is pelvic tilt with the left iliac crest higher than the right. There are moderate degenerative changes. IMPRESSION: Thoracolumbar scoliosis with sagittal plane imbalance. This report was electronically signed by GIL BERNARD MD on05/20/2020 4:08 PM . Lisa Barakat MD DIAGNOSTIC IMAGING O RDERABLES * COMPLETE PFT W/WO BRONCHODILATOR (05/18/2020 10:49 AM MATERIAL FLOW ANALYST) Impressions Reza Paul MD - 05/18/2020 10:49 AM MATERIAL FLOW ANALYST [facility] DEPARTMENT OF PULMONARY, CRITICAL CARE, AND SLEEP MEDICINE PULMONARY FUNCTION TESTS Beth Galen 05/20/2020 INTERPRETATION Please see technologist's comments mentioned above. SPIROMETRY: Forced vital capacity is normal. FEV1 is normal. FEV1/FVC ratio is normal. There is no significant response to bronchodilator administration. The inspection of the patient's flow-volume loops shows normal configuration of the inspiratory and expiratory limbs. LUNG VOLUMES: Lung volumes by body plethysmography are within normal limits. DLCO: Diffusing capacity unadjusted for Hb and COHb is within normal limits. AIRWAY RESISTANCE: The airway resistance and the specific conductance are normal. IMPRESSION: 1. Normal Pulmonary Function Test. 2. There is no significant response to bronchodilator therapy. However, this does not preclude the use of bronchodilator if clinically indicated 3. There is no previous study available for comparison. Maggie Paredes MD Pulmonary & Critical Care Fellow Division of Pulmonary, Critical Care and Sleep Medicine [facility] Pager: [phone] I have reviewed this study and agree with the interpretation by the Internal Medicine Nurse. Reza Paul M.D. Corporate Safety Manager of Internal Medicine Division of Pulmonary, Critical Care and Sleep Medicine [facility] Narrative Reza Paul MD - 05/18/2020 10:49 AM MATERIAL FLOW ANALYST Maggie Paredes MD 05/20/2020 5:22 PM Marcelina Parisi MD RESPIRATORY THERAPY ORDERABLES * IMAGING RADIOLOGY XRAY RESULTS ORDER (05/12/2020 12:16 PM MATERIAL FLOW ANALYST) Anatomical Region Laterality Modality Other Narrative 05/12/2020 12:16 PM MATERIAL FLOW ANALYST Ordered by an unspecified provider. Scanned Document IMAGING * CBC W/O DIFFERENTIAL (05/12/2020 7:03 AM MATERIAL FLOW ANALYST) Only the most recent of2 resultswithin the time period is included. White Blood Cell Count 9.3 3.8 - 10.8 Thousand/u L [facility] RBC 4.27 3.80 - 5.10 Million/uL [facility] Hemoglobin 13.3 11.7 - 15.5 g/dL [facility] Hematocrit 40.1 35.0 - 45.0 % [facility] MCV 93.9 80.0 - 100.0 fL [facility] MCH 31.1 27.0 - 33.0 pg [facility] MCHC 33.2 32.0 - 36.0 g/dL [facility] RDW 13.1 11.0 - 15.0 % [facility] Platelet Count 274 140 - 400 Thousand/u L [facility] MPV 10.1 7.5 - 12.5 fL [facility] Comment: Test Performed at: [email or web address] [email or web address] [id number] [place] [address] ENRICO WYNN DO,MPH 05/12/2020 7:03 AM MATERIAL FLOW ANALYST 05/12/2020 7:04 AM MATERIAL FLOW ANALYST [facility] - HEMATOLOG Y ORDERABLES [facility] [address] [place] [address] 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
[2024-06-26 12:29] LABS: Influenza A QL RT-PCR Negative (Negative); Influenza B QL RT-PCR Negative (Negative); RSV RNA, RT-PCR Negative (Negative); SARS-CoV-2 RNA PCR Positive (Negative)
--- NOTE | 2024-06-26 12:29 | ED_ITS ---
HPI - URI/Sore Throat General Chief Complaint: Upper Respiratory Infection Stated Complaint: discolored phlegm Time Seen by Provider: 06/26/24 11:26 Source: patient Mode of arrival: ambulatory Limitations: no limitations History of Present Illness HPI Narrative: Patient is an 83 y/o female, with PMH of pacemaker, afib on xarelto, who presents to the ED with c/o cough. Patient reports she has had an intermittentl y productive cough for the past few days. Reports congestion, rhinorrhea. She states today she had production of brown phlegm which prompted her presentation. Denied hemoptysis. Denies fevers. Denies CP. Denies SOB. Has taken mucinex for her sx's, but states this dried her out too much so she stopped taking it. Has an inhaler at home but states she has not needed to use this. Patient is a re sident of a assisted community. She reports several other residents have been sick. Related Data Home Medications ?Medication ?Instructions ?Recorded ?Confirmed ?Last Taken ?Type cholecalciferol (vitamin D3) 25 1,000 unit PO DAILY 01/13/20 02/13/24 03/26/21 History mcg (1,000 unit) capsule guaifenesin 600 mg tablet, 600 mg PO DAILY PRN Congestion 03/26/21 02/13/24 Unknown History extended release 12 hr (Mucinex) hydralazine 50 mg tablet 50 mg PO QPM PRN Hypertension 03/26/21 02/13/24 Unknown History polyethylene glycol 3350 17 17 g PO DAILY PRN Constipation 03/26/21 02/13/24 Unknown History gram/dose oral powder (Miralax) rivaroxaban 15 mg tablet (Xarelto) 15 mg PO QPM 04/27/21 02/13/24 Unknown History buspirone 10 mg tablet 20 mg PO 0830,1330,1930 01/11/22 02/13/24 Unknown History carvedilol 25 mg tablet (Coreg) 12.5 mg PO Q12H 11/08/23 02/13/24 Unknown History cyclosporine 0.05 % eye drops 1 drp EACH EYE Q12H 11/08/23 02/13/24 Unknown History (Restasis MultiDose) flecainide 150 mg tablet 150 mg PO Q12H 11/08/23 02/13/24 Unknown History ketoconazole 2 % topical cream 1 applic topical BID 11/08/23 02/13/24 Unknown History losartan 25 mg tablet 25 mg PO DAILY 11/08/23 02/13/24 Unknown History pimecrolimus 1 % topical cream 1 applic topical BID 11/08/23 02/13/24 Unknown History spironolactone 25 mg tablet 12.5 mg PO DAILY 11/08/23 02/13/24 Unknown History (Aldactone) triamcinolone acetonide 0.1 % 1 applic topical BID 11/08/23 02/13/24 Unknown History topical cream Allergies Allergy/AdvReac Type Severity Reaction Status Date / Time monosodium glutamate AdvReac Unknown Fatigued Verified 02/13/24 15:09 Review of Systems Review of Systems: All systems reviewed & are unremarkable except as noted in HPI. All systems reviewed & are unremarkable except as noted in HPI and below PMFSH Past Medical History Medical History Pacemaker Chronic anticoagulation Anxiety Chronic obstructive pulmonary disease Related to significant secondhand smoke exposure. Dyslipidemia Left carotid bruit Unremarkable carotid Doppler ultrasounds on 09/09/2019. TIA (transient ischemic attack) At the age of 29, attributed to oral contraceptives. Eczema Paroxysmal atrial fibrillation Paroxysmal atrial fibrillation/atrial flutter. Maintained on flecainide, carvedilol, and rivaroxaban. Patient of Dr. Bharathi Higuera at [facility]. Hypertension Headache, migraine Arthritis Surgical History Surgical History H/O cardiac radiofrequency ablation History of tubal ligation History of tonsillectomy History of appendectomy History of ventral hernia repair History of uterine suspension procedure History of eyelid surgery Family History Family History Mother Family history of kidney disease Family history of elevated blood lipids Acute myocardial infarction, Onset Age: 93 Family history of liver disease, Onset Age: 93 Family history of congestive heart failure Family history of chronic obstructive pulmonary disease Family history of renal failure, Onset Age: 93 Father Family history of migraine headaches Hypertension Grandparent Cerebrovascular accident Other Family history of cardiovascular disease Family history of malignant neoplasm Social History Social History Social History: The patient is and lives with her in [place]. They have 2 children. 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 She is a lifelong nonsmoker but reports significant secondhand smoke exposure. No alcohol or drug abuse. She designates her Alcides Aaron as her surrogate decision maker and she wishes to be a full code. Smoking status: Never smoker Second hand tobacco smoke exposure: Yes Alcohol intake: former Substance use: never Spiritual care concerns: Yes (Hoahaoism) Exam Narrative: GENERAL: Elderly but well appearing, well-nourished, non-toxic, in no acute distress. HEAD: Normocephalic, atraumatic. RESPIRATORY: Airway patent, respirations nonlabored. Very faint occasional wheezing in RLL. No rhonchi. No distress. CARDIOVASCULAR: Regular rate and rhythm without murmurs, rubs, or gallops. MUSCULOSKELETAL: Moves all extremities. No gross deformities. SKIN: Warm, dry, normal color. NEURO: A&O X3. Speech clear. Cranial nerves II-XII grossly intact. Steady gait. No ataxic movements. PSYCHIATRIC: Appropriate mood and affect. Normal interaction. Course Vital Signs Vital signs: Vital Signs Temperature 98.0 F 06/26/24 09:57 Pulse Rate 82 06/26/24 09:57 Respiratory Rate 16 06/26/24 09:57 Blood Pressure 113/45 L 06/26/24 09:57 Pulse Oximetry 93 06/26/24 09:57 Oxygen Delivery Room Air 06/26/24 09:57 Temperature 98.0 F 06/26/24 09:57 Pulse Rate 82 06/26/24 09:57 Respiratory Rate 16 06/26/24 09:57 Blood Pressure 113/45 L 06/26/24 09:57 Pulse Oximetry 93 06/26/24 09:57 Oxygen Delivery Room Air 06/26/24 11:32 MDM - URI/Sore Throat MDM Narrative Medical decision making narrative: Patient presented to ED with several day history of URI symptoms. Resident of a local assisted community. Vital signs are stable upon arrival. Patient is in no acute distress. Denying any shortness of breath or chest pain. Viral swabs resulted positive for COVID-19. Consistent with clinical picture. Chest x-ray was obtained and showing mild pulmonary edema. No other acute abnormality. PNA less favored. Patient does not appear acutely fluid overloaded. Again denying any shortness of breath. W/o fevers, less suspicious for bacterial process. Sx's all likey r/t covid/viral infection. Oxygen stable on room air. Feel patient is safe for discharge home at this time. Will prescribe Tessalon Perles. She has inhaler at home she can use as needed. Recommended close follow-up with PCP for further evaluation. Given return precautions. Discharged in stable condition. Medical Records Attestation: I reviewed the patient's medical records. Lab Data Attestation: I reviewed the patient's lab results. Labs: Lab Results 06/26/24 Range/Units 11:30 Influenza A (RT-PCR) Negative (Negative) Influenza B (RT-PCR) Negative (Negative) RSV (RT-PCR) Negative (Negative) SARS-CoV-2 RNA (RT-PCR) Positive A (Negative) Imaging Data Attestation: I personally reviewed and interpreted this imaging study as follows: Radiologist's impression: ITS Impressions Chest X-Ray 06/26/24 12:06 Impression: 1: Mild pulmonary edema. Pneumonia less favored. Discharge Plan Discharge Clinical Impression: COVID-19 Patient Disposition: Home, Self-Care Condition: Stable Instructions: Antibiotic Form, Cold Symptoms (ED), COVID-19 (Coronavirus Disease 2019) (ED), How to Recover from COVID-19 at Home (ED) Additional Instructions: You were diagnosed with COVID-19 today. Isolate at home as you are contagious. Stay well-hydrated at home. Recommend electrolyte rich fluids, Gatorade, Pedialyte, body armor. Utilize Zofran as needed for nausea. Tessalon Perles as needed for cough. Utilize Tylenol for discomfort and/or fevers. Recommend [id number] cough and cold medicines for symptom relief, Delsym, Mucinex, DayQuil, NyQuil, Sudafed, Robitussin, TheraFlu. Follow with primary care doctor for further evaluation. Return to the ED if you experience worsening or severe symptoms, coughing blood, chest pain, difficulty breathing, unable to keep down food or drink, severe pain, or any other symptoms of concern. Patient Language: Taiwanese Prescriptions: New benzonatate 200 mg capsule 200 mg PO TID PRN (Reason: cough) Qty: 15 0RF ondansetron 4 mg tablet,disintegrating 4 mg PO Q8H PRN (Reason: nausea and vomiting) Qty: 15 0RF No Action cholecalciferol (vitamin D3) 25 mcg (1,000 unit) capsule 1,000 unit PO DAILY carvedilol [Coreg] 25 mg tablet 12.5 mg PO Q12H Rx Instructions: must administer with a meal/food flecainide 150 mg tablet 150 mg PO Q12H ketoconazole 2 % cream 1 applic topical BID losartan 25 mg tablet 25 mg PO DAILY pimecrolimus 1 % cream 1 applic topical BID spironolactone [Aldactone] 25 mg tablet 12.5 mg PO DAILY triamcinolone acetonide 0.1 % cream 1 applic topical BID Restasis MultiDose 0.05 % drops 1 drp EACH EYE Q12H mupirocin 2 % ointment 1 applic topical .COMPLEX Qty: 22 1RF Rx Instructions: 3-4x per day for two weeks then 1-2 times per day famotidine 20 mg Tablet 20 mg PO Q12HR Qty: 60 0RF Xarelto 15 mg tablet 15 mg PO QPM buspirone 10 mg tablet 20 mg PO 0830,1330,1930 hydralazine 50 mg tablet 50 mg PO QPM PRN (Reason: Hypertension) polyethylene glycol 3350 [Miralax] 17 gram/dose powder 17 g PO DAILY PRN (Reason: Constipation) guaifenesin [Mucinex] 600 mg Tablet Extended Release 12hr 600 mg PO DAILY PRN (Reason: Congestion) ipratropium bromide 21 mcg (0.03 %) spray,non-aerosol 2 spray intranasal .COMPLEX Qty: 90 1RF Rx Instructions: 2 sprays intranasally; administer into each nostril. Aim back/up/out. Up to 3 times per day Follow-up/Referrals: UNKNOWN,DOCTOR [Primary Care Provider] - Time of Disposition: 12:42
== END 2024-06-26 13:06 | disposition home or self-care (01) ==
PROVIDERS: Emergency Provider Physician Assistant
DX: U07.1 COVID-19 (principal); I10 Essential (primary) hypertension; I48.0 Paroxysmal atrial fibrillation; J44.9 Chronic obstructive pulmonary disease, unspecified; E78.5 Hyperlipidemia, unspecified; M19.90 Unspecified osteoarthritis, unspecified site; Z86.73 Personal history of transient ischemic attack (TIA), and cerebral infarction without residual deficits; Z95.0 Presence of cardiac pacemaker; Z79.01 Long term (current) use of anticoagulants; Z79.899 Other long term (current) drug therapy; Z77.22 Contact with and (suspected) exposure to environmental tobacco smoke (acute) (chronic)
CPT/HCPCS: 71046; 87637; 99283

== ENCOUNTER 2024-07-03 12:06 | Inpatient (IN) | payer MEDICARE, OTHER, SELFPAY ==
[2024-07-03] VITALS (11 sets, daily range): BP systolic 118–179; BP diastolic 58–80; PULSE 60–73; RESP 12–19; TEMP 36.5; O2SAT 95–99; BMI 28.1
--- NOTE | ~2024-07-03 | XR_ITS ---
EXAMINATION: XR chest 1V portable DATE: 07/07/2024 10:23 INDICATION: Shortness of breath. TECHNIQUE: A single frontal view of the chest was obtained. COMPARISON: Chest 2 views 07/03/2024, chest CT 07/04/24 FINDINGS: There are airspace and interstitial opacities in all right lung zones and left mid and lowe r lung zones. There are small pleural effusions. No pneumothorax. The heart size is normal. There is a right chest wall pacer with leads in the right atrium and right ventricle. IMPRESSION: 1. Diffuse lung disease with interval improvement, consistent with pulmonary edema versus pneumonia. 2. Stable small pleural effusions. Reviewed, dictated and finalized at location A. ATOR IMPRESSION: 1. Diffuse lung disease with interval improvement, consistent with pulmonary ed kp versus pneumonia. 2. Stable small pleural effusions.
--- NOTE | ~2024-07-03 | US_ITS ---
EXAMINATION:US venous doppler LE BI INDICATION:Leg edema TECHNIQUE: Multiple grayscale, color flow and Doppler images of the right and left lower extremity de ep venous systems were obtained and reviewed. COMPARISON:No prior studies for comparison. FINDINGS: The common femoral, superficial femoral and popliteal veins demonstrate normal respiratory variation, augmentation and compressibility. Color flow is also seen within the posterior tibial, pe roneal, greater saphenous and profunda veins. IMPRESSION: 1: No lower extremity deep venous thrombosis. Reviewed, dictated and finalized at location B. ESTATE ANALYST
--- NOTE | ~2024-07-03 | XR_ITS ---
XR chest 2V 07/03/2024 12:50 Indication: Shortness of breath Procedure: AP view of the chest Comparison: Comparison to multiple prior studies sequentially, with oldest reviewed study dated 01/09. Findings: There has been significant progression of extensive bilateral airspace disease, compatible with pneumonia. Small left pleural effusion. No pneumothorax. Pacemaker leads are stable. Impression: 1: Significant progression of bilateral airspace disease, consistent with pneumonia. Pulmonary edema is the differential diagnosis. Reviewed, dictated and finalized at location B. HER TEACHER Impression: 1: Significant progression of bilateral airspace disease, consistent with pneum onia. Pulmonary edema is the differential diagnosis.
--- NOTE | ~2024-07-03 | CT_ITS ---
EXAMINATION:CT diagnostic chest wo con DATE: 07/04/2024 17:32 INDICATION: Pulmonary edema. TECHNIQUE: Computed tomography (CT) of the chest was performed without intravenous contrast. Automate d exposure control and iterative reconstruction technique were employed. The dose-length product (DLP ) was 337.26 mGy-cm. COMPARISON: Chest 2 views 07/03/2024, CT abdomen and pelvis 11/03/2023 FINDINGS: There is scarring at the lung apices. There are widespread groundglass and airspace opaciti es and crazy paving involving all lobes. There are small pleural effusions. There is a 2.9 cm nodule in right thyroid lobe. The heart size is normal. There is a right chest wall pacer with leads in the right atrium and right ventricle. No pericardial effusion. There is mild mediastinal lymphadenopathy. There is mild thoracic spondylosis. There is a chronic compression fracture of T12. IMPRESSION: 1. Diffuse lung disease, consistent with pulmonary edema versus pneumonia. 2. Small pleural effusions. 3. Thyroid nodule. Consider thyroid ultrasound for risk stratification if clinically indicated given the patient's age and comorbidities. Reviewed, dictated and finalized at location A. NICAL DOCUMENT WRITER IMPRESSION: 1. Diffuse lung disease, consistent with pulmonary edema versus pneumonia. 2. Small pleural effusions. 3. Thyroid nodule. Consider thyroid ultrasound for risk stratification if clini bart indicated given the patient's age and comorbidities.
--- NOTE | 2024-07-03 12:14 | ECG_ITS ---
Test Date: 2024-07-03 12:16:47 Measurements Intervals [place] Rate: 68 P: -48 [place]: 339 QRS: -77 QRSD: 168 T: 82 QT: 458 QTc: 491 Interpretive Statements ELECTRONIC ATRIAL PACEMAKER RIGHT BUNDLE BRANCH BLOC LEFT ANTERIOR FASCICULAR BLOCK CANNOT R/O SEPTAL INFARCT, AGE INDETERMINATE BASELINE ARTIFACT- I, II, III, AVR, AVL, AVF ABNORMAL ECG No previous ECG available for comparison Electronically Signed On 07-03-2024 13:26:35 ART FRAMING MANAGER by Garrison Stewart D.O.
[2024-07-03 12:34] LABS: Basophils Percent Auto 0.2 % (0.2-1.2); Eosinophils Absolute Auto 0.2 K/mm3 (0-0.3); Hematocrit 31.6 % (37.0-47.0); Hemoglobin 10.9 g/dL (12.0-15.0); Immature Granulocyte Absolute 0.17 K/mm3 (0.00-0.031); Immature Granulocyte Percent A 1.1 % (0-0.5); Lymphocytes Absolute Auto 1.12 K/mm3 (0.9-3.2); Mean Corpuscular HGB Conc 34.5 g/dl (32-36); Mean Corpuscular Hemoglobin 31.2 pg (26-34); Mean Corpuscular Volume 90.5 fl (80-100); Mean Platelet Volume 8.5 fl (7.4-10.4); Monocytes Percent Auto 12.4 % (2.6-8.5); Neutrophils Absolute Auto 12.5 K/mm3 (1.3-6.7); Neutrophils Percent Auto 78.3 % (45.5-73.1); Platelet Count Result 360 k/mm3 (150-375); Red Blood Count 3.49 M/mm3 (4.2-5.4); Red Cell Distribution Width 13.1 % (11.5-14.5)
--- OUTSIDE RECORDS SUMMARY | 2024-07-03 12:49 | XMS_ITS | Clinical Summary ---
Author Organization [facility] Address [address] [place] [address] Phone Care Team Providers Care Stereoptician Name Role Phone Minh Thornton MD Primary Care Provider [phone] Allergies No known active allergies Medications CALCIUM CARBONATE (CALCIUM 500 ORAL) Take by mouth. Activ e MULTIVITAMINS WITH FLUORIDE (MULTI-VITAMIN ORAL) Take by mouth. Activ e clobetasol (TEMOVATE) 0.05 % Lotion Apply to affected area. Active XIIDRA 5 % Dropperette 8 Active XARELTO 20 mg Tablet 8 Active vit C/E/Zn/steelscope operator/lut/z ea/bio/saf (RETAINE VISION ORAL) Take by mouth. 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 COOK Gender Identity Not on file Sexual Orientation Not on file Occupation Industry Job Start Date Job End Date Not on file Not on file Not on file Not on file Last Filed Vital Signs Vital Sign Reading Time Taken Comments Blood Pressure 122/78 03/19/2024 10:45 AM BED AND BREAKFAST COOK Pulse - - Temperature - - Respiratory Rate - - Oxygen Saturation - - Inhaled Oxygen Concentration - - Weight 73 kg (161 lb) 03/19/2024 10:45 AM BED AND BREAKFAST COOK Height 167.6 cm (5' 6 ) 03/19/2024 10:45 AM BED AND BREAKFAST COOK Body Mass Index 25.99 03/19/2024 10:45 AM BED AND BREAKFAST COOK Plan of Treatment Health Maintenance Due Date [...] Maintenance Results * MAMMO SCRN BILAT 3D MAUYR W OR WO CAD (03/14/2024) Anatomical Region Laterality Modality Breast Bilateral Other Vero Rodriguez DO MAMMO ORDERABLES Final Result [...] OFFICE CLINIC Anatomical Region Laterality Modality Other us Ajay Devries MD DIAGNOSTIC IMAGING ORDERAB LES Final Result from Last 3 Months or Most Recently Relevant to Health Maintenance Insurance MEDICARE PART A AND B [employer] PPO Care Teams Stereoptician Relationship Specialty Start Date End Date Minh Thornton MD PCP - General Internal Medicine 01/01/15
--- OUTSIDE RECORDS SUMMARY | 2024-07-03 12:49 | XMS_ITS | Referral Summary ---
Author Organization [facility] Address [address] [place] [address] Care Team Providers Care Certified Performance Technologist Name Role Phone Kristen Graf APRN-[facility] Primary Care Provider Source Comments [facility],non-owned Affiliates and Associated Physician Practices is amultiple site organization consisting of ambulatory clinics and hospital sitesin [place], [place], [place] and [place]. This disclosure is being madepursuant to the Care Everywhere program and may not contain all information available regarding this patient. Last updated 18.[facility] Encounters Date Type Department Care Team Description 06/27/2024 Refill [facility] - Cardiology [address], [address] [address] Mani Green RN MEDICATION REFILL 05/21/2024 1:10 AM TWENTY ONE DEALER Clinical Support [facility] - Cardiology [address], [id number] [place] [phone] SSS (sick sinus syndrome) (HCC) 04/26/2024 Travel 04/08/2024 Travel 04/08/2024 11:00 AM TWENTY ONE DEALER Ancillary Procedure [facility] - Echosonography [address], [id number] [place] [address] Essential hypertension from Last 3 Months Allergies No known [...] 24 hours. Active pimecrolimus (Elidel) 1 % creamIndications: Contact dermatitis due to other agent, unspecified contact [...] 3 03/23/2023 Active hydrALAZINE (Apresoline) 50 MG tabletIndications :Primary hypertension Take 1 (one) tablet by mouth once daily as needed 90 tablet 3 05/05/2023 Active diclofenac sodium (Voltaren) 1 % gel Apply 4 (four) g to affected area 4 times daily 100 g 11 09/15/2023 5 Active losartan (Cozaar) 25 MG tabletIndications :Essential hypertension Take 1 (one) tablet by mouth once daily 90 tablet 3 09/21/2023 5 Active cycloSPORINE (Restasis) 0.05 % ophthalmic suspension Instill 1 (one) drop into both eyes 2 times daily Active ipratropium (Atrovent) 0.03 % nasal spray [place]clean 2 sprays into each nostril 2 times daily 12/06/2023 Active mupirocin (Bactroban) 2 % ointment Apply to affected area 2 times daily 11/08/2023 Active psyllium (Metamucil) 58.6 % powder Take 1 (one) packet by mouth 2 times daily Active busPIRone (Buspar) 10 MG tabletIndications :Anxiety Disorder Take 2 (two) tablets by mouth 3 times daily Reasons: Anxiety Disorder 180 tablet 11 01/19/2024 Active famotidine (Pepcid) 20 MG tabletIndications :Gastroesophageal reflux disease, unspecified whether esophagitis present Take 1 (one) tablet by mouth every 12 hours 180 tablet 3 01/19/2024 Active flecainide (Tambocor) 150 MG tabletIndications :Typical atrial flutter (HCC) Take 1 (one) tablet by mouth 2 times daily 180 tablet 3 03/28/2024 5 Active albuterol HFA (ProAir HFA) 108 (90 Base) MCG/ACT inhalerIndication s:Shortness of breath Inhale 2 (two) puffs by mouth every 4 hours as needed for Shortness of Breath, Wheezing or Cough 8.5 g 11 04/22/2024 Active Spacer/Aero-Holdi ng Chambers (AeroChamber)Miya cations:Shortness of breath Inhale by mouth as directed 1 Each 04/22/2024 Active carvedilol (Coreg) 12.5 MG tablet Take 1 (one) tablet by mouth 2 times daily with morning and evening meal 180 tablet 3 06/27/2024 6 Active carvedilol (Coreg) 12.5 MG tablet Take 1 (one) tablet by mouth 2 times daily with morning and evening meal 180 tablet 3 03/28/2024 5 Discontinu ed(Reorder ) Active Problems Patient Care Coordination No te Formatting of this note migh t be different from the original. Charge Coordinator - Dr Asaf Ramirez Problem Noted Date [...] multinodular Immunizations Name Administration Dates Next Due Levo League primary monoval ent 12+ yr 0.3mL Purple [...] Comments Blood Pressure 168/72 03/28/2024 1:41 PM TWENTY ONE DEALER Pulse 64 03/28/2024 1:41 PM TWENTY ONE DEALER Temperature 36.7 C (98.1 F) 03/28/2024 1:41 PM TWENTY ONE DEALER Respiratory Rate 16 03/28/2024 1:41 PM TWENTY ONE DEALER Oxygen Saturation 99% 03/28/2024 1:41 PM TWENTY ONE DEALER Inhaled Oxygen Concentration - - Weight 75.3 kg (166 lb) 03/28/2024 1:41 PM TWENTY ONE DEALER Height 167.6 cm (5' 6 ) 03/28/2024 1:41 PM TWENTY ONE DEALER Body Mass Index 26.79 03/28/2024 1:41 PM TWENTY ONE DEALER Functional Status Functional Status Response Date of [...] st Contact Info) Description 07/19/2024 9:30 AM TWENTY ONE DEALER Office Visit [facility] - Pulmonology [address] [facility], [place] [address] Jack Milian MD [address] [facility] 2[address] DIV OF PULM/[place] [address] 08/02/2024 9:30 AM CDT Office Visit [facility] - Geriatrics [address] [facility], [place] [address] Kristen Graf, SOCIAL MEDIA SPECIALIST-COLLAR TURNER OPERATOR [address] [facility] [address] [place] [address] 08/20/2024 1:10 AM CDT Clinical Support [facility] Cardiology [address] [facility] [address] [place] [address] 10/10/2024 10:20 AM CDT Office Visit [facility] - Cardiology [address] [facility], [address] [address] Bharathi Higuera MD [address] [facility], [address] [address] 11/19/2024 1:10 AM CDT Clinical Support [facility] - Cardiology [address] [facility], [address] [phone] Goals Goal Patient Goal Type Associated Problems Recent Progress Patient-Stated? Author Medication Management General On track( 023 11:16 AM CDT) Lashay Esparza RN Note: Expected end date: ongoing Interventions: Take all medications as prescribed Let your doctor know right away about any changes in your medications Make sure to request a refill of your medication at least one week prior to your last dose Medical Devices Implanted Type Area Legal Referee Device Identifier Shelf Expiration Date Model / Serial / Lot Lead Cp Nv Pace 52cm St[address] Amada - [id number] Implanted:Qty: 1 on 08/16/2021 by Bharathi Higuera MD at [facility] Right: Ventricle [employer] 04/13/2023 5076-52 / [id number] / Description:RV Lead Lead Cp Nv Pace 45cm Strd Elut Pltn Amada - [id number] Implanted:Qty: 1 on 08/16/2021 by Bharathi Higuera MD at [facility] Right: Atrium [employer] 05/06/2023 5076-45 / [id number] / Description:RA lead Pacemkr Rosette Wirelessly Crd - [id number] Implanted:Qty: 1 on 08/16/2021 by Bharathi Higuera MD at [facility] Right: Chest [employer] 01/09/2023 [id number] / [id number] / Description:ICD Procedures Procedure Name Priority Date/Time Associated Diagnosis Comments [place] PM/ICD REMOTE TECH SERV Routine 05/26/2024 4:54 PM TWENTY ONE DEALER SSS (sick sinus syndrome) (HCC) [place] PM DEVICE INTERROGATE REMOTE Routine 05/26/2024 4:54 PM TWENTY ONE DEALER SSS (sick sinus syndrome) (HCC) CARDIAC PROCEDURE ORDER 05/20/2024 ECHO COMPLETE Routine 04/08/2024 11:33 AM TWENTY ONE DEALER Essential hypertension DEXA BONE DENSITY AXIAL SKELETON Routine 06/17/2022 1:22 PM TWENTY ONE DEALER Primary osteoarthritis involving multiple joints Osteoporosis, unspecified osteoporosis type, unspecified pathological fracture presence from Last 3 Months or Most Recently Relevant to Health Maintenance Results * [place] PM DEVICE INTERROGATE REMOTE, [place] PM/ICD REMOTE TECH SERV (05/26/2024 4:54 PM TWENTY ONE DEALER) Narrative Nanette Aldridge MD - 05/26/2024 4:54 PM TWENTY ONE DEALER Nanette Aldridge MD 05/26/2024 4:57 PM Remote Interrogation: 05/20/2024 Pertinent Findings: Device function within normal limits. No events or therapy delivered. See below for details. Nanette Aldridge MD Cardiac Electrophysiology Nanette Aldridge MD PROCEDURE/MINOR SURG ICAL ORDERABLES * CARDIAC PROCEDURE ORDER (05/20/2024) Narrative 05/20/2024 Ordered by an unspecified provider. Scanned Document CARDIAC SERVICES ORD ERABLES * ECHO COMPLETE (04/08/2024 11:33 AM TWENTY ONE DEALER) RVOT diam Doppler 2.584 cm SSM CV [...] PACS LVOT VTI 22.146 cm [facility] CV [facility] I PACS RVIDd 2.598 cm [facility] CV [facility] I PACS RVOT pk daniel 60.223 cm/s SSM CV F U PACS RVOT VTI 14.441 cm [facility] CV [facility] I PACS AV mn grad 3.949 mmHg SSM CV FU PACS AV pk daniel 142.885 cm/s S[facility] CV [facility] I PACS AV VTI 32.302 cm S[facility] CV [facility] I PACS MV A pk daniel 59.369 cm/s SSM CV F [facility] PACS MV E pk daniel 101.87 cm/s SSM CV F [facility] PACS LA vol index 0.038 l/m S[facility] CV [facility] PACS LA vol BP 71.89 ml SSM CV [facility] I PACS MV pk daniel regurg 550.944 cm/s SSM CV [facility] PACS MR VTI 208.159 cm SSM CV [facility] I PACS MV mn grad 1.29 mmHg SSM CV FU PACS MV VTI 23.992 cm SSM CV [facility] I PACS PV pk daniel 80.53 cm/s SSM CV [facility] I PACS PV VTI 18.33 cm SSM CV [facility] I PACS TR pk daniel 292.499 cm/s SSM CV [facility] I PACS Ascending aorta 2.999 cm SSM CV [facility] PACS AV PHT 0.618 s SSM CV [facility] I PACS AV pk daniel regurg 413.482 cm/s [facility] AR VTI 221.432 cm [facility] CV [facility] I PACS AZ VTI 77.979 cm SSM CV [facility] I PACS AR DECEL TIME 2.132 s [facility] RA area 20.245 cm [facility] RV-alvarado basal diam 3.721 cm [facility] RV-alvaardo mid diam 3.694 cm [facility] TAPSE 2.15 cm SSM CV FUJ I PACS [place] PEAK END DIASTOLIC VELOCITY 141.199 cm/s SSM CV FUJI PACS [place] Decel [place] 191.392 cm/s2 SSM C V FUJI PACS [...] Laterality Modality Ultrasound 04/08/2024 10:5 3 AM TWENTY ONE DEALER Narrative 04/09/2024 7:54 AM TWENTY ONE DEALER Summary * Findings consistent with sclerotic valves, mild MR and AR, at least moderate TR, trace [place], no valve stenosis, mild effects of HTN, [...] 10:53 AM Patient Status: O Study Site: [facility] Primary Location: [facility] Info Exam Type: ECHO COMPLETE Indications I10 - Essential hypertension Procedure(s) * A complete 2D, color Doppler, spectral Doppler, and M-Mode transthoracic echocardiogram was performed. Staff Referring Physician: Bharathi Higuera Ordering Provider: Bharathi Higuera Remote Sensing Engineer: Bessy Shelton Left Ventricle The left ventricle [...] Accel Time 121.11 ms PV Regurgitation Doppler [place] End Diastolic Velocity 1.4 m/s [place] End Diastolic Gradient 8 mmHg [place] Vena Contracta 0.83 mm Mitral Valve Name [...] Artery Doppler PA End Diastolic Pressure for [place] 16 mmHg Aorta Name Value Normal Ascending [...] and AR, at least moderate TR, trace [place], no valve stenosis, mild effects of HTN, [...] 10:53 AM Patient Status: O Study Site: [facility] Info Exam Type: ECHO COMPLETE Indications I10 - Essential hypertension Procedure(s) * A complete 2D, color Doppler, spectral Doppler, and M-Modetransthoracic echocardiogram was performed. Staff Referring Physician: Bharathi Higuera Ordering Provider: Bharathi Higuera Remote Sensing Engineer: Bessy Shelton Left Ventricle The left ventricle [...] Accel Time 121.11 ms PV Regurgitation Doppler [place] End Diastolic Velocity 1.4 m/s [place] End Diastolic Gradient 8 mmHg [place] Vena Contracta 0.83 mm Mitral Valve Name [...] Artery Doppler PA End Diastolic Pressure for [place] 16 mmHg Aorta Name Value Normal Ascending [...] CUPID * BONE DENSITY AXIAL SKELETON(1OR MORE SITES)[id number] (06/17/2022 1:22 PM TWENTY ONE DEALER) Anatomical Region Laterality Modality Other 06/20/2022 5:28 PM TWENTY ONE DEALER Narrative 06/20/2022 5:29 PM TWENTY ONE DEALER PROCEDURE: DEXA BONE DENSITY AXIAL SKELETON, DATE/TIME OF EXAM: 06/17/2022 1:23 PM, LOCATION [facility] INDICATION: M15.9: Primary osteoarthritis involving multiple [...] DATE/TIME OF EXAM:06/17/2022 1:23 PM, LOCATION [facility] INDICATION: M15.9: Primary osteoarthritis involving multiple [...] DO on 06/20/2022 5:29 PM Kristen Graf SOCIAL MEDIA SPECIALIST-COLLAR TURNER OPERATOR DEXA ORDERABLES from Last 3 Months or Most Recently Relevant to Health Maintenance Advance Directives * Full Code (Latest Code Status on File) Date Activated Date Inactivated Comments 07/03/2021 6:20 PM 07/04/2021 5:26 PM Care Teams Certified Performance Technologist Relationship Specialty Start Date End Date Kristen Graf APRN-COLLAR TURNER OPERATOR [address] [address] PCP - General 05/24/21
--- OUTSIDE RECORDS SUMMARY | 2024-07-03 12:49 | XMS_ITS | Clinical Summary ---
Author Organization [facility] Address [address] [place] [address] Care Team Providers Care Sales Representative [employer] Name Role Phone Kristen Gra[facility] Primary Care Provider Source Comments [facility],non-owned Affiliates and Associated Physician Practices is amultiple site organization consisting of ambulatory clinics and hospital sitesin [place], [place], [place] and [place]. This disclosure is being madepursuant to the Care Everywhere program and may not contain all information available regarding this patient. Last updated 18.[facility] Allergies No known active allergies Medications * [...] g 09/15/2023 Active losartan (Cozaar) 25 MG tabletIndications :Essential hypertension Take 1 (one) tablet by mouth once daily 90 tablet 3 09/21/2023 Active cycloSPORINE (Restasis) 0.05 % ophthalmic suspension Instill 1 (one) drop into both eyes 2 times daily Active ipratropium (Atrovent) 0.03 % nasal spray [place] 2 sprays into each nostril 2 times [...] migh t be different from the original. Stock Hanger - Dr Asaf Ramirez Problem Noted Date [...] [facility] [address] [facility] [address] [place] [address] Mani Green RN MEDICATION REFILL 05/21/2024 1:10 AM ELECTRICAL DEVELOPMENT ENGINEER Clinical Support [facility] - Cardiology [address] [facility], [id number] [place] [address] SSS (sick sinus syndrome) (HCC) 04/26/2024 Travel 04/08/2024 11:00 AM ELECTRICAL DEVELOPMENT ENGINEER Ancillary Procedure [facility] - Echosonography [id number] [place] [address] Essential hypertension 04/08/2024 Travel from Last 3 Months Immunizations Name Administration Dates Next Due Prova Systems primary monoval ent 12+ yr 0.3mL Purple [...] Comments Blood Pressure 168/72 03/28/2024 1:41 PM ELECTRICAL DEVELOPMENT ENGINEER Pulse 64 03/28/2024 1:41 PM ELECTRICAL DEVELOPMENT ENGINEER Temperature 36.7 C (98.1 F) 03/28/2024 1:41 PM ELECTRICAL DEVELOPMENT ENGINEER Respiratory Rate 16 03/28/2024 1:41 PM ELECTRICAL DEVELOPMENT ENGINEER Oxygen Saturation 99% 03/28/2024 1:41 PM ELECTRICAL DEVELOPMENT ENGINEER Inhaled Oxygen Concentration - - Weight 75.3 kg (166 lb) 03/28/2024 1:41 PM ELECTRICAL DEVELOPMENT ENGINEER Height 167.6 cm (5' 6 ) 03/28/2024 1:41 PM ELECTRICAL DEVELOPMENT ENGINEER Body Mass Index 26.79 03/28/2024 1:41 PM ELECTRICAL DEVELOPMENT ENGINEER Plan of Treatment Upcoming Encounters Date Type Department Care Team (Late st Contact Info) Description 07/19/2024 9:30 AM ELECTRICAL DEVELOPMENT ENGINEER Office Visit [facility] - Pulmonology [address] [place] [phone] Jack Milian MD [address] [place] [address] DIV OF PULM/[place] [address] 08/02/2024 9:30 AM CDT Office Visit [facility] - Geriatrics [address] [place] [phone] Kristen Graf, CLINICAL ASST-MANAGER COLLECTION [facility] [address] 08/20/2024 1:10 AM CDT Clinical Support [facility] - Cardiology [employer], [address] [address] 10/10/2024 10:20 AM CDT Office Visit [facility] - Cardiology [address] [facility], [address] [address] Bharathi Higuera MD [address] [facility], [address] [address] 11/19/2024 1:10 AM CDT Clinical Support [facility] - Cardiology [address] [facility] [address] [place] [address] Health Maintenance Due Date Last [...] 10/23/19 13 PNEUMOCOCCAL VACCINE 50+ Completed 01/06/2023, 1005/2019 INFLUENZA VACCINE Completed 01/31/2024, , 02/24/2022, Additional [...] last dose Medical Devices Implanted Type Area Instructional Media Services Technician Device Identifier Shelf Expiration Date Model / Serial / Lot Lead Cp Nv Pace 52cm St[address]tn Amada - [id number] Implanted:Qty: 1 on 08/16/2021 by Bharathi Hgiuera MD at [facility] Right: Ventricle [employer] 04/13/2023 5076-52 / [id number] / Description:RV Lead Lead Cp Nv Pace 45cm St[address]tn Amada - [id number] Implanted:Qty: 1 on 08/16/2021 by Bharathi Higuera MD at [facility] Right: Atrium [employer] 05/06/2023 5076-45 / [id number] / Description:RA lead Pacemkr [place] Wirelessly Crd - [id number] Implanted:Qty: 1 on 08/16/2021 by Bharathi Higuera MD at [facility] Right: Chest [employer] 01/09/2023 [id number] / [id number] / Description:ICD Procedures Procedure Name Priority Date/Time Associated Diagnosis Comments [place] PM/ICD REMOTE TECH SERV Routine 05/26/2024 4:54 PM ELECTRICAL DEVELOPMENT ENGINEER SSS (sick sinus syndrome) (HCC) [place] PM DEVICE INTERROGATE REMOTE Routine 05/26/2024 4:54 PM ELECTRICAL DEVELOPMENT ENGINEER SSS (sick sinus syndrome) (HCC) CARDIAC PROCEDURE ORDER 05/20/2024 ECHO COMPLETE Routine 04/08/2024 11:33 AM ELECTRICAL DEVELOPMENT ENGINEER Essential hypertension DEXA BONE DENSITY AXIAL SKELETON Routine 06/17/2022 1:22 PM ELECTRICAL DEVELOPMENT ENGINEER Primary osteoarthritis involving multiple joints Osteoporosis, unspecified osteoporosis type, unspecified pathological fracture presence from Last 3 Months or Most Recently Relevant to Health Maintenance Results * [place] PM DEVICE INTERROGATE REMOTE, [place] PM/ICD REMOTE TECH SERV (05/26/2024 4:54 PM ELECTRICAL DEVELOPMENT ENGINEER) Narrative Nanette Aldridge MD - 05/26/2024 4:54 PM ELECTRICAL DEVELOPMENT ENGINEER Nanette Aldridge MD 05/26/2024 4:57 PM Remote Interrogation: 05/20/2024 Pertinent Findings: Device function within normal limits. No events or therapy delivered. See below for details. Nanette Aldridge MD Cardiac Electrophysiology Nanette Aldridge MD PROCEDURE/MINOR SURG ICAL ORDERABLES * CARDIAC PROCEDURE ORDER (05/20/2024) Narrative 05/20/2024 Ordered by an unspecified provider. Scanned Document CARDIAC SERVICES ORD ERABLES * ECHO COMPLETE (04/08/2024 11:33 AM ELECTRICAL DEVELOPMENT ENGINEER) RVOT diam Doppler 2.584 cm SSM CV [...] pk daniel 99.346 cm/s SSM CV F UJI PACS LVOT VTI 22.146 cm SSM CV FUJ I PACS RVIDd 2.598 cm SSM CV FUJ I PACS RVOT pk daniel 60.223 cm/s SSM CV F UJI PACS RVOT VTI 14.441 cm SSM CV FUJ I PACS AV mn grad 3.949 mmHg SSM CV FU JI PACS AV pk daniel 142.885 cm/s SSM CV FUJ I PACS AV VTI 32.302 cm SSM CV FUJ I PACS MV A pk daniel 59.369 cm/s SSM CV F UJI PACS MV E pk daniel 101.87 cm/s SSM CV F UJI PACS LA vol index 0.038 l/m SSM CV FUJI PACS LA vol BP 71.89 ml SSM CV FUJ I PACS MV pk daniel regurg 550.944 cm/s SSM CV FUJI PACS [...] 221.432 cm SSM CV FUJ I PACS VT VTI 77.979 cm SSM CV FUJ I PACS AR DECEL TIME 2.132 s SSM CV FUJI PACS RA area 20.245 cm SSM CV FUJI PACS RV-alvarado basal diam 3.721 cm SSM CV FUJI PACS RV-alvarado mid diam 3.694 cm SSM CV FUJI PACS TAPSE 2.15 cm SSM CV FUJ I PACS [place] PEAK END DIASTOLIC VELOCITY 141.199 cm/s SSM CV FUJI PACS VT Decel [place] 191.392 cm/s2 SSM C V FUJI PACS [...] Laterality Modality Ultrasound 04/08/2024 10:5 3 AM ELECTRICAL DEVELOPMENT ENGINEER Narrative 04/09/2024 7:54 AM ELECTRICAL DEVELOPMENT ENGINEER Summary * Findings consistent with sclerotic valves, mild MR and AR, at least moderate TR, trace [place], no valve stenosis, mild effects of HTN, [...] 10:53 AM Patient Status: O Study Site: [facility] Primary Location: [facility] Info Exam Type: ECHO COMPLETE Indications I10 - Essential hypertension Procedure(s) * A complete 2D, color Doppler, spectral Doppler, and M-Mode transthoracic echocardiogram was performed. Staff Referring Physician: Bharathi Higuera Ordering Provider: Bharathi Higuera Motion Picture Set Up Worker: Bessy Shelton Left Ventricle The left ventricle [...] Accel Time 121.11 ms PV Regurgitation Doppler [place] End Diastolic Velocity 1.4 m/s [place] End Diastolic Gradient 8 mmHg VT Vena Contracta 0.83 mm Mitral Valve Name [...] Artery Doppler PA End Diastolic Pressure for VT 16 mmHg Aorta Name Value Normal Ascending [...] and AR, at least moderate TR, trace [place], no valve stenosis, mild effects of HTN, [...] 10:53 AM Patient Status: O Study Site: [facility] Primary Location: [facility] Info Exam Type: ECHO COMPLETE Indications I10 - Essential hypertension Procedure(s) * A complete 2D, color Doppler, spectral Doppler, and M-Modetransthoracic echocardiogram was performed. Staff Referring Physician: Bharathi Higuera Ordering Provider: Bharathi Higuera Motion Picture Set Up Worker: Bessy Shelton Left Ventricle The left ventricle [...] Accel Time 121.11 ms PV Regurgitation Doppler [place] End Diastolic Velocity 1.4 m/s [place] End Diastolic Gradient 8 mmHg VT Vena Contracta 0.83 mm Mitral Valve Name [...] Artery Doppler PA End Diastolic Pressure for [place] 16 mmHg Aorta Name Value Normal Ascending [...] CUPID * BONE DENSITY AXIAL SKELETON(1OR MORE SITES)[id number] (06/17/2022 1:22 PM ELECTRICAL DEVELOPMENT ENGINEER) Anatomical Region Laterality Modality Other 06/20/2022 5:28 PM ELECTRICAL DEVELOPMENT ENGINEER Narrative 06/20/2022 5:29 PM ELECTRICAL DEVELOPMENT ENGINEER PROCEDURE: DEXA BONE DENSITY AXIAL SKELETON, DATE/TIME OF EXAM: 06/17/2022 1:23 PM, LOCATION [facility] 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 [...] SKELETON, DATE/TIME OF EXAM:06/17/2022 1:23 PM, LOCATION [facility] 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 [...] 6:20 PM 07/04/2021 5:26 PM Care Teams Sales Representative [employer] Relationship Specialty Start Date End Date Kristen Graf APRN-CNP [address] [address] PCP - General 05/24/21
--- OUTSIDE RECORDS SUMMARY | 2024-07-03 12:49 | XMS_ITS | Encounter Summary ---
Author Organization [facility] Health Address [address] [facility] [place] [address] Care Team Providers Care Sensitometrist Name Role Phone Minh Thornton MD Primary Care Provider [phone] [facility] Primary Care Provider Tracie Pritchett MD Primary Care Provider [phone] Kristen Graf APRN-REEL CART OPERATOR Primary Care Provider Encounter Details Date Type Department Care Team (Late st Contact Info) Description 03/10/2020 Telephone [facility] [address] [place] [address] Kristen Graf CHILD CARE TEAM LEAD-REEL CART OPERATOR [address] [phone] Social History Tobacco Use Types Packs/Day Years [...] at your convenience. Patient Call Back number: [phone] documented in this encounter Plan of Treatment Upcoming Encounters Date Type Department Care Team (Late st Contact Info) Description 07/19/2024 9:30 AM SCIENTIFIC PHOTOGRAPHER Office Visit [facility] - Pulmonology [address] [place] [address], [place] [address] Jack Milian MD [address] [place] [address] [address] DIV OF PULM/[place] [address] 08/02/2024 9:30 AM CDT Office Visit [facility] - Geriatrics [address] [place] [address], [place] [address] Kristen Graf, CHILD CARE TEAM LEAD-REEL CART OPERATOR [address] [facility] [address] [place] [address] 08/20/2024 1:10 AM CDT Clinical Support [facility] - Cardiology [address] [facility], [facility] [address] [place] [address] 10/10/2024 10:20 AM CDT Office Visit [facility] - Cardiology [address] [facility], [facility] [address] [place] [address] Bharathi Higuera MD [address], [facility] [address] [place] [address] 11/19/2024 1:10 AM CDT Clinical Support [facility] - Cardiology [address] [facility], [place] [address] [place] [phone] documented as of this encounter Visit Diagnoses Not on filedocumented in this encounter Care Teams Sensitometrist Relationship Specialty Start Date End Date Minh Thornton MD [address] [place] [id number] PCP - General 03/02/20 04/26/20 Kristen Graf, CHILD CARE TEAM LEAD-REEL CART OPERATOR [address] [place] [address] PCP - General 04/27/20 05/19/21 Tracie Pritchett MD [address] [facility] [address] [place] [address] PCP - General Internal Medicine Geriatric Medicine 05/20/21 05/23/21 Kristen Graf, CHILD CARE TEAM LEAD-REEL CART OPERATOR [address] [address] PCP - General 05/24/21 documented as of this encounter
--- OUTSIDE RECORDS SUMMARY | 2024-07-03 12:49 | XMS_ITS | Patient Health Summary ---
Author Organization [facility] [employer] Address [address] [place] [address] Care Team Providers Care Bottle Caser Name Role Phone Kristen Graf APRN-[facility] Primary Care Provider Note from [facility],non-owned Affiliates and Associated Physician Practices is amultiple site organization consisting of ambulatory clinics and hospital sitesin [place], [place], [place] and [place]. This disclosure is being madepursuant to the Care Everywhere program and may not contain all information available regarding this patient. Last updated 18.[facility] Allergies No known active allergies Medications * [...] ipratropium (Atrovent) 0.03 % nasal spray(Started 12/06/2023) [place] 2 sprays into each nostril 2 times [...] 12 hours 3 refills by 01/18/2025 * flecainide (Tambocor) 150 MG tablet(Started 03/28/2024) Take 1 (one) tablet by mouth 2 times daily 3 refills by 03/28/2025 * albuterol HFA (ProAir HFA) 108 (90 Base) MCG/ACT inhaler(Started 04/22/2024) Inhale 2 (two) puffs by mouth every 4 hours as needed for Shortness of Breath, Wheezing or Cough 11 refills by 04/22/2025 * Spacer/Aero-Holding Chambers (AeroChamber)(Started 04/22/2024) Inhale by mouth as directed * carvedilol (Coreg) 12.5 MG tablet(Started 06/27/2024) Take 1 (one) tablet by mouth 2 times daily with morning and evening meal 3 refills by 06/27/2025 Ended Medications* carvedilol (Coreg) 12.5 MG tablet(Started 03/28/2024) (Discontinued) Take 1 (one) tablet by mouth 2 times daily with morning and evening meal 3 refills by 03/28/2025 Active Problems Problem Noted Date Diagnosed Date [...] 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, nontoxic, multinodular Immunizations * Covid [employer] primary monovalent 12+ yr 0.3mL Purple cap(Given [...] Comments Blood Pressure 168/72 03/28/2024 1:41 PM PROPERTY DAMAGE CLAIMS ADJUSTOR Pulse 64 03/28/2024 1:41 PM PROPERTY DAMAGE CLAIMS ADJUSTOR Temperature 36.7 C (98.1 F) 03/28/2024 1:41 PM PROPERTY DAMAGE CLAIMS ADJUSTOR Respiratory Rate 16 03/28/2024 1:41 PM PROPERTY DAMAGE CLAIMS ADJUSTOR Oxygen Saturation 99% 03/28/2024 1:41 PM PROPERTY DAMAGE CLAIMS ADJUSTOR Inhaled Oxygen Concentration - - Weight 75.3 kg (166 lb) 03/28/2024 1:41 PM PROPERTY DAMAGE CLAIMS ADJUSTOR Height 167.6 cm (5' 6 ) 03/28/2024 1:41 PM PROPERTY DAMAGE CLAIMS ADJUSTOR Body Mass Index 26.79 03/28/2024 1:41 PM PROPERTY DAMAGE CLAIMS ADJUSTOR Medical Devices Implanted Type Area Train Starter Device Identifier Shelf Expiration Date Model / Serial / Lot Lead Cp Nv Pace 52cm Strd Elut Pltn Amada - [id number] Implanted:Qty: 1 on 08/16/2021 by Bharathi Higuera MD at [facility] Right: Ventricle [employer] 04/13/2023 5076-52 / [id number] / Description:RV Lead Lead Cp Nv Pace 45cm Strd Elut Pltn Amada - [id number] Implanted:Qty: 1 on 08/16/2021 by Bharathi Higuera MD at [facility] Right: Atrium [employer] 05/06/2023 5076-45 / [id number] / Description:RA lead Pacemkr [place] Wire[employer] Crd - [id number] Implanted:Qty: 1 on 08/16/2021 by Bharathi Higuera MD at [facility] Right: Chest [employer] 01/09/2023 [id number] / [id number] / Description:ICD Procedures * GA PM/ICD REMOTE TECH SERV(Performed 05/26/2024) Performed for SSS (sick sinus syndrome) (HCC) * GA PM DEVICE INTERROGATE REMOTE(Performed 05/26/2024) Performed for SSS (sick sinus syndrome) (HCC) * CARDIAC PROCEDURE ORDER(Performed 05/20/2024) * ECHO COMPLETE(Performed 04/08/2024) Performed for Essential hypertension * GA PM/ICD REMOTE TECH SERV(Performed 02/24/2024) Performed for SSS (sick sinus syndrome) (HCC) * GA PM DEVICE INTERROGATE REMOTE(Performed 02/24/2024) Performed for [...] Stage 3a chronic kidney disease (HCC) * GA DRAIN/INJECT LARGE JOINT/BURSA(Performed 07/20/2023) Performed for Bilateral primary osteoarthritis of knee * GA DRAIN/INJECT LARGE JOINT/BURSA(Performed 07/20/2023) Performed for Bilateral primary osteoarthritis of knee * LIPID PROFILE(Performed 06/12/2023) Performed for Screening cholesterol level * COMPREHENSIVE METABOLIC PANEL(Performed 06/12/2023) Performed for Primary hypertension * CBC W AUTO DIFFERENTIAL(Performed 06/12/2023) Performed for Primary hypertension * US ABDOMEN COMPLETE(Performed 06/12/2023) Performed for Abdominal pain, RLQ (right lower quadrant) * CARDIAC PROCEDURE ORDER(Performed 03/31/2023) * GA PM DEVICE EVAL IN PERSON(Performed 03/23/2023) Performed for Typical atrial flutter (HCC), Hypertension, unspecified type * TSH REFLEX FREE T4(Performed 01/06/2023) Performed for Thyroid nodule, Primary hypertension * COMPREHENSIVE METABOLIC PANEL(Performed 01/06/2023) Performed for Thyroid nodule, Primary hypertension * CBC W AUTO DIFFERENTIAL(Performed 01/06/2023) Performed for Thyroid nodule, Primary hypertension * GA DRAIN/INJECT LARGE JOINT/BURSA(Performed 11/08/2022) Performed for Bilateral primary osteoarthritis of knee * GA DRAIN/INJECT LARGE JOINT/BURSA(Performed 11/08/2022) Performed for Bilateral primary osteoarthritis of knee * XR PELVIS W LEFT HIP 2VW(Performed 11/08/2022) Performed for Pain of left hip * CARDIAC PROCEDURE ORDER(Performed 10/25/2022) * GA PM DEVICE EVAL IN PERSON(Performed 09/23/2022) Performed for SSS (sick sinus syndrome) (HCC) * GA DESTRUCT BENIGN LESION, 1-14(Performed 08/11/2022) Performed for Seborrheic keratosis, inflamed * BASIC METABOLIC PANEL (CALCIUM TOTAL)(Performed 07/01/2022) Performed for Essential hypertension * CARDIAC PROCEDURE ORDER(Performed 06/29/2022) * GA PM DEVICE EVAL IN PERSON(Performed 06/23/2022) Performed [...] (HCC) * CARDIAC PROCEDURE ORDER(Performed 03/29/2022) * GA PM DEVICE EVAL IN PERSON(Performed 03/24/2022) Performed for Hypertension, unspecified type, Palpitations, SSS (sick sinus syndrome) (HCC) * GA DESTRUCT BENIGN LESION, 1-14(Performed 03/15/2022) Performed for Seborrheic keratosis, inflamed * GA DRAIN/INJECT LARGE JOINT/BURSA(Performed 02/15/2022) Performed for Bilateral primary osteoarthritis of knee * GA DRAIN/INJECT LARGE JOINT/BURSA(Performed 02/15/2022) Performed for Bilateral primary osteoarthritis of knee * XR FOOT RIGHT 3VW OR MORE(Performed 02/14/2022) Performed for Right foot pain * TSH REFLEX FREE T4(Performed 02/04/2022) Performed for Thyroid nodule, Goiter, nontoxic, multinodular, Multiple thyroid nodules * GA US SOFT TISS HEAD&NCK R-T IMG(Performed 02/04/2022) Performed for Thyroid nodule, Goiter, nontoxic, multinodular, Multiple thyroid nodules * CBC W AUTO DIFFERENTIAL(Performed 02/03/2022) Performed for Essential hypertension * BASIC METABOLIC PANEL (CALCIUM TOTAL)(Performed 02/03/2022) Performed for Essential hypertension * GA BIOPSY, NAIL UNIT(Performed 01/25/2022) Performed for Nail dystrophy * FUNGUS REGINA - POINT OF CARE (AMB) SLU(Performed 01/25/2022) Performed for Tinea pedis of right foot * GA DESTRUCT BENIGN LESION, 1-14(Performed 01/25/2022) Performed for Seborrheic keratosis, inflamed * CULTURE FUNGUS SKIN HAIR NAIL+FUNGUS SMEAR(Performed 01/25/2022) * DERMATOPATHOLOGY(Performed 01/25/2022) Performed for Nail dystrophy * COMPREHENSIVE METABOLIC PANEL(Performed 01/20/2022) Performed for COVID-19 * CBC W AUTO DIFFERENTIAL(Performed 01/20/2022) Performed for COVID-19 * CARDIAC PROCEDURE ORDER(Performed 10/25/2021) * GA DRAIN/INJECT LARGE JOINT/BURSA(Performed 10/22/2021) Performed for Pain in both lower extremities, Bilateral primary osteoarthritis of knee, Effusion ofright knee * GA DRAIN/INJECT LARGE JOINT/BURSA(Performed 10/22/2021) Performed for Pain [...] SSS (sick sinus syndrome) (HCC), Bradycardia * GA DESTRUCT BENIGN LESION, 1-14(Performed 08/05/2021) Performed for [...] thyroid nodules, Hypertension, unspecified type, Hyponatremia * GA US SOFT TISS HEAD&NCK R-T IMG(Performed 01/29/2021) [...] Performed for Typical atrial flutter (HCC) * GA CYSTOURETHROSCOPY(Performed 09/08/2020) Performed for History of blood [...] TSH(Performed 07/23/2020) * T4 FREE(Performed 07/23/2020) * GA FNA BX W US GDN 1ST LES(Performed 07/23/2020) Performed for Thyroid nodule, Goiter, nontoxic, multinodular * GA US SOFT TISS HEAD&NCK R-T IMG(Performed 07/23/2020) Performed for Thyroid nodule, Goiter, nontoxic, multinodular * GA US GUIDED NEEDLE PLACEMENT(Performed 07/23/2020) Performed for [...] for Chest pain, unspecified type Results * GA PM DEVICE INTERROGATE REMOTE, GA PM/ICD REMOTE TECH SERV (05/26/2024 4:54 PM PROPERTY DAMAGE CLAIMS ADJUSTOR) Narrative Nanette Aldridge MD - 05/26/2024 4:54 PM PROPERTY DAMAGE CLAIMS ADJUSTOR Nanette Aldridge MD 05/26/2024 4:57 PM Remote [...] ERABLES * ECHO COMPLETE (04/08/2024 11:33 AM PROPERTY DAMAGE CLAIMS ADJUSTOR) RVOT diam Doppler 2.584 cm SSM CV [...] 221.432 cm SSM CV FUJ I PACS GA VTI 77.979 cm SSM CV FUJ I PACS AR DECEL TIME 2.132 s SSM CV FUJI PACS RA area 20.245 cm SSM CV FUJI PACS RV-alvarado basal diam 3.721 cm SSM CV FUJI PACS RV-alvarado mid diam 3.694 cm SSM CV FUJI PACS TAPSE 2.15 cm SSM CV FUJ I PACS GA PEAK END DIASTOLIC VELOCITY 141.199 cm/s SSM CV FUJI PACS GA Decel Jewell 191.392 cm/s2 SSM C V FUJI PACS [...] Laterality Modality Ultrasound 04/08/2024 10:5 3 AM PROPERTY DAMAGE CLAIMS ADJUSTOR Narrative 04/09/2024 7:54 AM PROPERTY DAMAGE CLAIMS ADJUSTOR Summary * Findings consistent with sclerotic valves, mild MR and AR, at least moderate TR, trace GA, no valve stenosis, mild effects of HTN, [...] 10:53 AM Patient Status: O Study Site: [facility] Primary Location: [facility] Info Exam Type: ECHO COMPLETE Indications I10 - Essential hypertension Procedure(s) * A complete 2D, color Doppler, spectral Doppler, and M-Mode transthoracic echocardiogram was performed. Staff Referring Physician: Bharathi Higuera Ordering Provider: Bharathi Higuera Piggyback Clerk: Bessy Shelton Left Ventricle The left ventricle [...] Accel Time 121.11 ms PV Regurgitation Doppler GA End Diastolic Velocity 1.4 m/s GA End Diastolic Gradient 8 mmHg GA Vena Contracta 0.83 mm Mitral Valve Name [...] Artery Doppler PA End Diastolic Pressure for GA 16 mmHg Aorta Name Value Normal Ascending [...] (2D) 40 % 27-45 LV EF (2D Teichnailaz) 77 % 54-74 LV Diastolic Volume (4C [...] and AR, at least moderate TR, trace GA, no valve stenosis, mild effects of HTN, [...] 10:53 AM Patient Status: O Study Site: [facility] Primary Location: [facility] Info Exam Type: ECHO COMPLETE Indications I10 - Essential hypertension Procedure(s) * A complete 2D, color Doppler, spectral Doppler, and M-Modetransthoracic echocardiogram was performed. Staff Referring Physician: Bharathi Higuera Ordering Provider: Bharathi Higuera Piggyback Clerk: Bessy Shelton Left Ventricle The left ventricle [...] Accel Time 121.11 ms PV Regurgitation Doppler GA End Diastolic Velocity 1.4 m/s GA End Diastolic Gradient 8 mmHg GA Vena Contracta 0.83 mm Mitral Valve Name [...] Artery Doppler PA End Diastolic Pressure for GA 16 mmHg Aorta Name Value Normal Ascending [...] AM Bharathi Higuera MD ECHO CUPID * GA PM DEVICE INTERROGATE REMOTE, GA PM/ICD REMOTE TECH SERV (02/24/2024 11:07 PM CDT) Narrative Bharathi Higuera MD - 02/24/2024 11:07 PM CDT Bharathi Higuera MD 02/24/2024 11:07 PM Dear Beth Aaron, I reviewed the remote interrogation of your [...] of5 resultswithin the time period is included. [facility] TSH 2.535 0.350 - 4.940 uIU/mL 02/19/2024 2:46 PM CDT [facility] Blood BLOOD SPECIMEN / Unknown Lab Venipuncture / Unknown 02/19/2024 1:39 PM CDT 02/19/2024 1:48 PM CDT Kristen Graf ETCHED CIRCUIT PROCESSOR-CODE AND TEST CLERK LAB - CHEMISTRY ORDERABLES [facility] [address] [address], [facility] [phone] * (ABNORMAL) CBC W/ DIFFERENTIAL (02/19/2024 1:39 PM CDT) Only the most recent of15 resultswithin the time period is included. Pathologist [facility] WBC 6.8 4.0 - 10.7 x10E9/L 02/19/2024 1:59 PM [facility] RBC Count 3.85(L) 3.90 - 5.20 x10E12/L 02/19/2024 1:59 PM [facility] Hemoglobin 12.0 11.9 - 15.8 g/dL 02/19/2024 1:59 PM [facility] Hematocrit 36.4 34.8 - 46.1 % 02/19/2024 1:59 PM [facility] MCV 94.5 80.0 - 98.0 fL 02/19/2024 1:59 PM [facility] MCH 31.2 26.7 - 33.6 pg 02/19/2024 1:59 PM [facility] MCHC 33.0 31.7 - 36.3 g/dL 02/19/2024 1:59 PM [facility] RDW-CV 13.3 11.3 - 14.8 % 02/19/2024 1:59 PM [facility] Platelet Count 185 150 - 420 x10E9/L 02/19/2024 1:59 PM [facility] MPV 9.1 7.8 - 11.4 fL 02/19/2024 1:59 PM [facility] Neutrophil % 58.2 41.0 - 74.0 % 02/19/2024 1:59 PM [facility] Lymphocyte % 26.6 17.0 - 47.0 % 02/19/2024 1:59 PM [facility] Monocyte % 11.4(H) 3.0 - 11.0 % 02/19/2024 1:59 PM [facility] Eosinophil % 2.8 0.0 - 7.0 % 02/19/2024 1:59 PM [facility] Basophil % 0.6 0.0 - 1.6 % 02/19/2024 1:59 PM [facility] Immature Granulocytes % 0.4 0.0 - 1.0 % 02/19/2024 1:59 PM [facility] Neutrophil Absolute 3.93 1.60 - 7.50 x10E9/L 02/19/2024 1:59 PM [facility] Lymphocyte Absolute 1.80 1.00 - 4.40 x10E9/L 02/19/2024 1:59 PM CDT [facility] Monocyte Absolute 0.77 0.15 - 1.00 x10E9/L 02/19/2024 1:59 PM CDT [facility] Eosinophil Absolute 0.19 0.00 - 0.60 x10E9/L 02/19/2024 1:59 PM CDT [facility] Basophil Absolute 0.04 0.00 - 0.13 x10E9/L 02/19/2024 1:59 PM T [facility] Blood BLOOD SPECIMEN / Unknown Lab Venipuncture / Unknown 02/19/2024 1:39 PM CDT 02/19/2024 1:48 PM CDT Kristen Graf ETCHED CIRCUIT PROCESSOR-CODE AND TEST CLERK LAB - HEMATOLOG Y ORDERABLES Performing Organization Address City/State/[facility] Co de Phone Number [facility] [address] [place] [phone], [facility] [phone] * (ABNORMAL) COMPREHENSIVE METABOLIC PANEL (02/19/2024 1:39 PM CDT) Only the most recent of12 resultswithin the time period is included. BUN 22 7 - 26 mg/dL 02/19/2024 2:22 PM [facility] Creatinine 0.98(H) 0.56 - 0.96 mg/dL 02/19/2024 2:22 PM [facility] Sodium 139 136 - 145 mmol/L 02/19/2024 2:22 PM [facility] Potassium 4.6(H) 3.5 - 4.5 mmol/L 02/19/2024 2:22 PM [facility] Chloride 106 98 - 107 mmol/L 02/19/2024 2:22 PM [facility] CO2 28 22 - 29 mmol/L 02/19/2024 2:22 PM [facility] Glucose 119(H) 70 - 115 mg/dL 02/19/2024 2:22 PM [facility] Calcium 9.4 8.4 - 10.2 mg/dL 02/19/2024 2:22 PM [facility] Protein Total 6.2 6.0 - 8.3 g/dL 02/19/2024 2:22 PM [facility] Albumin 3.6 3.4 - 5.0 g/dL 02/19/2024 2:22 PM [facility] Bilirubin Total 0.4 0.2 - 1.2 mg/dL 02/19/2024 2:22 PM [facility] Alkaline Phosphatase 94 40 - 150 U/L 02/19/2024 2:22 PM [facility] ALT 10 5 - 55 U/L 02/19/2024 2:22 PM [facility] AST 16 5 - 34 U/L 02/19/2024 2:22 PM [facility] Anion Gap 5(L) 6 - 16 02/19/2024 2:22 PM [facility] BUN/Creatinine Ratio 22 7 - 23 02/19/2024 2:22 PM [facility] Osmolality Calculated 292 275 - 295 mOsm/kg 02/19/2024 2:22 PM [facility] Albumin/Globulin Ratio 1.4 1.1 - 2.3 02/19/2024 2:22 PM [facility] eGFR by CKD-EPI 57(L) >=90 mL/min/1.7 3 m2 02/19/2024 2:22 PM [facility] Blood BLOOD SPECIMEN / Unknown Lab Venipuncture / Unknown 02/19/2024 1:39 PM CDT 02/19/2024 1:48 PM CDT Kristen Graf ETCHED CIRCUIT PROCESSOR-CODE AND TEST CLERK LAB - CHEMISTRY ORDERABLES [facility] [address] [place] [phone], [facility] [phone] * VITAMIN B12 (02/19/2024 1:39 PM CDT) Only the most recent of6 resultswithin the time period is included. Vitamin B12 405 213 - 816 pg/mL 02/19/2024 2:46 PM [facility] Blood BLOOD SPECIMEN / Unknown Lab Venipuncture / Unknown 02/19/2024 1:39 PM CDT 02/19/2024 1:48 PM CDT Kristen Oliva Garf ETCHED CIRCUIT PROCESSOR-CODE AND TEST CLERK LAB - CHEMISTRY ORDERABLES [facility] [address] [place] [address], [facility] [phone] * CT CHEST WO CONTRAST (01/11/2024 10:10 [...] DATE/TIME OF EXAM: 01/11/2024 10:10 AM, LOCATION [facility] INDICATION: R93.89: Abnormal CT of the chest [...] CONTRAST, DATE/TIME OF EXAM: 01/11/2024 10:10AM, LOCATION [facility] INDICATION: R93.89: Abnormal CT of the chest [...] Hogue MD - 12/07/2023 6:06 PM CDT [facility] DEPARTMENT OF PULMONARY, CRITICAL CARE, AND SLEEP [...] Nickerson MD Pulmonary and Critical Care Fellow [facility] Pager Number [phone] I have personally reviewed the fellow's interpretation of the test and made any necessary changes when needed. Marco Hogue MD [employer]oom [employer]er [employer] center instructor Division of Pulmonary, Critical Care and Sleep Medicine [facility] [employer] Pager: [phone] Narrative Marco Hogue MD - 12/07/2023 6:06 PM CDT Tonya Nickerson MD 12/08/2023 3:52 PM Procedure Note Tonya Nickerson MD - 12/07/2023 6:06 PM CDT Images from the original note were not included. Jack Milian MD RESPIRATORY THERAPY ORDERABLES * PFT Oxygen Desaturation Study [facility] PFT [facility] (12/07/2023 6:00 PM CDT) Impressions Marco Hogue MD - 12/07/2023 6:00 PM CDT [facility] DEPARTMENT OF PULMONARY, CRITICAL CARE, AND SLEEP MEDICINE OXYGEN TITRATION STUDY Beth Turner Galen 12/08/2023 INTERPRETATION The test was performed while free walking at room air. The patient was able to complete 8 minutes with lowest SpO2 of 95%. IMPRESSION 1. At the above level of activity the patient's oxygen saturation remained 95 % and above on room air. Tonya Nickerson MD Pulmonary and Critical Care Fellow [facility] Pager Number [phone] I have personally reviewed the fellow's interpretation of the test and made any necessary changes when needed. Marco Hogue MD [employer]oom [employer]er [employer] instructor Division of Pulmonary, Critical Care and Sleep Medicine [facility] Pager: [phone] Narrative Marco Hogue MD - 12/07/2023 6:00 PM CDT Tonya Nickerson MD 12/08/2023 3:52 PM Procedure Note Tonya Nickerson MD - 12/07/2023 6:00 PM CDT Images from the original note were not included. Jack Milian MD PFT ORDERABLES * Six Minute Walk Test [facility] (12/07/2023 5:47 PM CDT) Impressions Marco Hogue MD - 12/07/2023 5:47 PM CDT [facility] DEPARTMENT OF PULMONARY, CRITICAL CARE, AND SLEEP [...] Nickerson MD Pulmonary and Critical Care Fellow [facility] Pager Number [phone] I have personally reviewed the fellow's interpretation of the test and made any necessary changes when needed. Marco Hogue MD Loom [employer]er [employer] instructor Division of Pulmonary, Critical Care and Sleep Medicine [facility] Pager: [phone] Narrative Marco Hogue MD - 12/07/2023 5:47 PM CDT Tonya Nickerson MD 12/08/2023 3:52 PM Procedure Note Tonya Nickerson MD - 12/07/2023 5:47 PM CDT Images from the original note were not included. Jack Milian MD RESPIRATORY THERAPY ORDERABLES * GA DRAIN/INJECT LARGE JOINT/BURSA, GA DRAIN/INJECT LARGE JOINT/BURSA (07/20/2023 5:03 PM PROPERTY DAMAGE CLAIMS ADJUSTOR) Narrative Enrico Woodward III, MD - 07/20/2023 5:03 PM PROPERTY DAMAGE CLAIMS ADJUSTOR Enrico Woodward III, MD 07/20/2023 5:04 PM [...] * (ABNORMAL) LIPID PROFILE (06/12/2023 11:35 AM PROPERTY DAMAGE CLAIMS ADJUSTOR) [facility] Cholesterol Total 205(H) <200 mg/dL 06/12/2023 12:39 PM [facility] HDL 72 >40 mg/dL 06/12/2023 12:39 PM [facility] Comment: ATP III Classification of HDL Cholesterol: <40 mg/dL: Considered a major risk factor. >60 mg/dL: Considered a negative risk factor. LDL Calculated 122(H) <100 mg/dL 06/12/2023 12:39 PM [facility] Comment: ATP III Classification of LDL Cholesterol: <100 mg/dL: Optimal 100 - 129 mg/dL: Near Optimal/Above Optimal 130 - 159 mg/dL: Borderline High 160 - 189 mg/dL: High >190 mg/dL: Very High Triglycerides 57 <150 mg/dL 06/12/2023 12:39 PM PROPERTY DAMAGE CLAIMS ADJUSTOR [facility] Comment: ATP III Classification of Triglycerides: <150 mg/dL: Normal 150 - 199 mg/dL: Borderline High 200 - 400 mg/dL: High >500 mg/dL: Very High Blood BLOOD SPECIMEN / Unknown Lab Venipuncture / Unknown 06/12/2023 11:35 AM PROPERTY DAMAGE CLAIMS ADJUSTOR 06/12/2023 11:52 AM PROPERTY DAMAGE CLAIMS ADJUSTOR Kristen Graf ETCHED CIRCUIT PROCESSOR-CODE AND TEST CLERK LAB - CHEMISTRY ORDERABLES [facility] [address] [place] [address], [facility] [phone] * US ABDOMEN COMPLETE (06/12/2023 10:24 AM PROPERTY DAMAGE CLAIMS ADJUSTOR) Anatomical Region Laterality Modality Abdomen Ultrasound 06/12/2023 10:1 8 AM PROPERTY DAMAGE CLAIMS ADJUSTOR Impressions 06/12/2023 1:00 PM PROPERTY DAMAGE CLAIMS ADJUSTOR IMPRESSION: 4 mm nonobstructing calculus in the left kidney. No hydronephrosis. Otherwise unremarkable exam. > Dictated by Enrique Hines MD (vice president of software development). > Dictated by Enrique Hines (Foreign Agent) 06/12/2023 10:18 AM IBia MD have personally reviewed and interpreted this examination/study. > Interpreting Provider: Bia Thompson MD on 06/12/2023 1:00 PM Narrative 06/12/2023 1:00 PM PROPERTY DAMAGE CLAIMS ADJUSTOR PROCEDURE: US ABDOMEN COMPLETE, DATE/TIME OF EXAM: 06/12/2023 10:24 AM, LOCATION [facility] INDICATION: R10.31: Abdominal pain, RLQ (right lower [...] DATE/TIME OF EXAM: 06/12/2023 10:24 AM, LOCATION [facility] INDICATION: R10.31: Abdominal pain, RLQ (right lower [...] Dictated by Enrique Hines MD (vice president of software development). > Dictated by Enrique Hines (Foreign Agent) 06/12/2023 10:18 AM I, Bia Thompson MD have personally reviewed and interpreted this examination/study. > Interpreting Provider: Bia Thompson MD on 06/12/2023 1:00 PM Kristen Graf ETCHED CIRCUIT PROCESSOR[facility] ORDERABLES * GA PM DEVICE EVAL IN PERSON (03/23/2023 2:07 PM PROPERTY DAMAGE CLAIMS ADJUSTOR) Narrative Bharathi Higuera MD - 03/23/2023 2:07 PM PROPERTY DAMAGE CLAIMS ADJUSTOR Bharathi Higuera MD 03/23/2023 2:07 PM I personally interrogated her pacemaker The device is a [employer]tronic brand Dual Chamber Pacemaker. Model: Rosette XT SN: [id number] Implanted on : 08/16/2021 Battery life: 9.6 yrs Leads: Atrial lead: P waves: 1.4 Capture threshold (mA): 1.25 @ 0.4 Impedance: 399 ohms Programmed 1.25 @ 0.4 ms, sensitivity 0.3 mV RV lead R waves: 19.0 mV Capture threshold (mA): 1.50 @ 0.4 Impedance: 437 ohms Programmed 2.5 @ 0.4 ms, sensitivity 1.2 mV Episodes: AF burden 0% Pacing [place]: RA: 99.8% RV/LV: 0.1% Programming: Mode: DDD 70 AAIR<=>DDDR Lower rate: 60 bpm Upper rate: 130 bpm AV delay: Sensed/Paced = 130/180 Bharathi Higuera MD PROCEDURE/MINOR SURG ICAL ORDERABLES * GA DRAIN/INJECT LARGE JOINT/BURSA, GA DRAIN/INJECT LARGE JOINT/BURSA (11/08/2022 11:52 AM CDT) [...] III, MD DIAGNOSTIC IM AGING ORDERABLES * GA PM DEVICE EVAL IN PERSON (09/23/2022 3:08 PM CDT) Narrative Bharathi Higuera MD - 09/23/2022 3:08 PM CDT Bharathi Higuera MD 09/23/2022 3:08 PM The device is a [employer]tronic brand Dual Chamber Pacemaker. Model: [place] XT SN: [id number] Implanted on : 08/16/2021 Battery life: 10.4 yrs Leads: Atrial lead: P waves: 1.5 Capture threshold (mA): 1.125 @ 0.4 Impedance: 361 ohms Programmed 2.25 @ 0.4 ms, sensitivity 0.3 mV RV lead R waves: 16.1 mV Capture threshold (mA): 1.25 @ 0.4 Impedance: 437 ohms Programmed 2.5 @ 0.4 ms, sensitivity 1.2 mV Episodes: AF burdfen 0% Pacing [place]: RA: 99.4% RV/LV: 0.1% Programming: Mode: DDD 70 AAIR<=>DDDR Lower rate: 60 bpm Upper rate: 130 bpm AV delay: Sensed/Paced = 130/180 3.Essential Hypertension # BP ok today # cont Coreg to 25mg PO BID # Now off Hydralazine # cont losartan 50mg 4.Leg swelling # improved off hydralazine Bharathi Higuera MD PROCEDURE/MINOR SURG ICAL ORDERABLES * GA DESTRUCT BENIGN LESION, 1-14 (08/11/2022 1:45 PM [...] METABOLIC PANEL (CALCIUM TOTAL) (07/01/2022 9:57 AM [facility]) Only the most recent of11 resultswithin the time period is included. BUN 26 7 - 26 mg/dL 07/01/2022 10:31 AM [facility] Creatinine 1.12(H) 0.56 - 0.96 mg/dL 07/01/2022 10:31 AM [facility] Sodium 140 136 - 145 mmol/L 07/01/2022 10:31 AM [facility] Potassium 4.3 3.5 - 4.5 mmol/L 07/01/2022 10:31 AM [facility] Chloride 102 98 - 107 mmol/L 07/01/2022 10:31 AM [facility] CO2 29 22 - 29 mmol/L 07/01/2022 10:31 AM [facility] Glucose 75 70 - 115 mg/dL 07/01/2022 10:31 AM [facility] Calcium 9.8 8.4 - 10.2 mg/dL 07/01/2022 10:31 AM [facility] Anion Gap 13 8 - 18 07/01/2022 10:31 AM [facility] BUN/Creatinine Ratio 23 7 - 23 07/01/2022 10:31 AM [facility] Osmolality Calculated 293 270 - 300 mOsm/kg 07/01/2022 10:31 AM [facility] eGFR by CKD-EPI 49(L) >=90 mL/min/1.7 3 m2 07/01/2022 10:31 AM [facility] Blood BLOOD SPECIMEN / Unknown Lab Venipuncture / Unknown 07/01/2022 9:57 AM PROPERTY DAMAGE CLAIMS ADJUSTOR 07/01/2022 10:04 AM [facility] Bharathi Higuera MD LAB - CHEMISTRY BEVERLY DOMINGUEZ [facility] Organization Address City/State/ZIP Co de Phone Number [facility] [address] [place] [address], [facility] [phone] * GA PM DEVICE EVAL IN PERSON (06/23/2022 4:45 PM [facility]) Narrative Bharathi Higuera MD - 06/23/2022 4:45 PM PROPERTY DAMAGE CLAIMS ADJUSTOR Bharathi Higuera MD 06/23/2022 4:45 PM I personally interrogated the PPM. The device is a Medtronic brand Dual Chamber Pacemaker. Model: [place] XT SN: [id number] Implanted on : 08/16/2021 Battery life: 10.8 yrs Leads: Atrial lead: P waves: Paced@ 30 Capture threshold (mA): 1.125 @ 0.4 Impedance: 380 ohms Programmed 2.25 @ 0.4 ms, sensitivity 0.3 mV RV lead R waves: 15.9 mV Capture threshold (mA): 1.375 @ 0.4 Impedance: 456 ohms Programmed 2.75 @ 0.4 ms, sensitivity 1.2 mV Episodes: AF burdfen < 0.1% Pacing [place]: RA: 99.6% RV/LV: 0.1% Programming: Mode: DDD 70 AAIR<=>DDDR Lower rate: 60 bpm Upper rate: 130 bpm AV delay: Sensed/Paced = 150/180 Bharathi Higuera MD PROCEDURE/MINOR SURG ICAL ORDERABLES * CT ABDOMEN PELVIS W CONTRAST (06/17/2022 2:21 PM PROPERTY DAMAGE CLAIMS ADJUSTOR) Anatomical Region Laterality Modality Abdomen, Pelvis Computed Tomogra phy 06/17/2022 2:40 PM PROPERTY DAMAGE CLAIMS ADJUSTOR Impressions 06/17/2022 5:19 PM PROPERTY DAMAGE CLAIMS ADJUSTOR Impression: 1.No acute process identified in the abdomen or pelvis. 2.Partially imaged pulmonary nodules as described above measuring up to 5 mm. Follow-up chest CT may be obtained in one year. > Dictated by Shanti Laureano DO (vice president of software development). Tatiana Santana MD have personally reviewed and interpreted this examination/study. > Interpreting Provider: Tatiana Culver MD on 06/17/2022 5:19 PM Narrative 06/17/2022 5:19 PM PROPERTY DAMAGE CLAIMS ADJUSTOR PROCEDURE: CT ABDOMEN PELVIS W CONTRAST, DATE/TIME OF EXAM: 06/17/2022 2:22 PM, LOCATION [facility] INDICATION: R10.31: Abdominal pain, RLQ (right lower [...] CONTRAST, DATE/TIME OF EXAM: :22 PM, LOCATION [facility] INDICATION: R10.31: Abdominal pain, RLQ (right lower [...] Dictated by Shanti Laureano DO (vice president of software development). Tatiana Santana MD have personally reviewed and interpreted this examination/study. > Interpreting Provider: Tatiana Culver MD on 06/17/2022 5:19 PM Kristen Graf ETCHED CIRCUIT PROCESSOR-[facility] CT ORDERABLES * BONE DENSITY AXIAL SKELETON(1OR MORE SITES)[id number] (06/17/2022 1:22 PM PROPERTY DAMAGE CLAIMS ADJUSTOR) Anatomical Region Laterality Modality Other 06/20/2022 5:28 PM PROPERTY DAMAGE CLAIMS ADJUSTOR Narrative 06/20/2022 5:29 PM PROPERTY DAMAGE CLAIMS ADJUSTOR PROCEDURE: DEXA BONE DENSITY AXIAL SKELETON, DATE/TIME OF EXAM: 06/17/2022 1:23 PM, LOCATION [facility] INDICATION: M15.9: Primary osteoarthritis involving [...] SKELETON, DATE/TIME OF EXAM:06/17/2022 1:23 PM, LOCATION [facility] INDICATION: M15.9: Primary osteoarthritis involving [...] DO on 06/20/2022 5:29 PM Kristen Graf ETCHED CIRCUIT PROCESSOR-[facility] DEXA ORDERABLES * GA PM DEVICE EVAL IN PERSON (03/24/2022 5:14 PM PROPERTY DAMAGE CLAIMS ADJUSTOR) Narrative Bharathi Higuera MD - 03/24/2022 5:14 PM PROPERTY DAMAGE CLAIMS ADJUSTOR Bharathi Higuera MD 03/24/2022 5:14 PM I personally interrogated the PPM / ICD. The device is a Medtronic brand Dual Chamber Pacemaker. Model: S[place] XT SN: [id number] Implanted on : 08/16/2021 Battery life: 10.6 Leads: Atrial lead: P waves: Paced@ 30 Capture threshold (mA): 1.25 @ 0.4 Impedance: 361 ohms Programmed 1.25 @ 0.4 ms, sensitivity 0.3 mV RV lead R waves: 19.8 mV Capture threshold (mA): 1.75 @ 0.4 Impedance: 456 ohms Programmed 3.25 @ 0.4 ms, sensitivity 1.2 mV Episodes: AF burdfen < 0.1% Pacing [place]: RA: 99.3% RV/LV: 0.1% Programming: Mode: DDD 70 AAIR<=>DDDR Lower rate: 60 bpm Upper rate: 130 bpm AV delay: Sensed/Paced = 150/180 Bharathi Higuera MD PROCEDURE/MINOR SURG ICAL ORDERABLES * GA DESTRUCT BENIGN LESION, 1-14 (03/15/2022 1:18 PM CDT) Narrative Lilliana Thomas MD - 03/15/2022 1:18 PM CDT Dominic Hines MD 03/15/2022 1:18 PM Diagnosis and treatment options discussed. Cryotherapy (Liquid Nitrogen) to iSK on L cheek x 6-10 seconds each. Number of cycles: 1. Wound care reviewed. Lilliana Thomas MD PROCEDURE/MINOR OM[place] RGICAL ORDERABLES * GA DRAIN/INJECT LARGE JOINT/BURSA, GA DRAIN/INJECT LARGE JOINT/BURSA (02/15/2022 9:00 AM CDT) [...] DATE/TIME OF EXAM: 02/14/2022 3:22 PM, LOCATION [facility] INDICATION: M79.671: Right foot pain ADDITIONAL CLINICAL [...] MORE, DATE/TIME OF EXAM: 23:22 PM, LOCATION [facility] INDICATION: M79.671: Right foot pain ADDITIONAL CLINICAL [...] III, MD DIAGNOSTIC IM AGING ORDERABLES * GA US SOFT TISS HEAD&NCK R-T IMG (02/04/2022 [...] of knee Referring Physician: Dr. Kristen Graf, ETCHED CIRCUIT PROCESSOR-CODE AND TEST CLERK Procedure Preformed: Ultrasound Only COMPARED TO: 07/23/2020, [...] Santiago Banuelos MD Division of Endocrinology Santiago Banueols MD PROCEDURE/MINOR KASH GICAL ORDERABLES * GA BIOPSY, NAIL UNIT (01/25/2022 3:20 PM CDT) [...] if not available. Miguel Angel Hines MD U Dermatology Resident, PGY4 Lilliana Thomas MD PROCEDURE/MINOR [place] RGICAL ORDERABLES * (ABNORMAL) FUNGUS REGINA - POINT OF CARE (AMB) [facility] (01/25/2022 12:10 PM CDT) REGINA Prep Yes Comment:positive for hyphae Fluid BODY FLUID SPECIMEN / Unknown 01/25/2022 12:10 PM CDT Lilliana Thomas MD LAB - POINT OF CAR E ORDERABLES * GA DESTRUCT BENIGN LESION, 1-14 (01/25/2022 12:06 PM [...] Comment: CULTURE,FUNGUS,SKIN,HAIR, NAIL W/DIRECT FLUOR/REGINA Micro Number: [id number] Test Status: Final Specimen Source: Right great toenail Specimen Quality: Adequate Smear: Few Fungal elements seen Result: No fungal growth at 4 Weeks Test Performed at: [email or web address] [address] AMA KRISHNA MD 01/25/2022 12:0 4 PM CDT 01/26/2022 2:47 AM CDT Lilliana Thomas MD LAB - MICROBIOLOGY ORDERABLES [facility] [address] [place] [address] * DERMATOPATHOLOGY (01/25/2022 12:00 AM CDT) Case Report Dermatopathology Report Case: [id number] Authorizing Provider: Lilliana Thomas MD Collected: 01/25/2022 12:00 AM Ordering Location: [facility] Received: 01/25/2022 03:16 PM Dermatology Pathologist: Ambreen Miller MD Specimen: Skin, right great toenail 1:44 PM CDT DERMATOPATHOLOGY LABORATORY Final Diagnosis Specimen A. SKIN, right great toenail: ONYCHOMYCOSIS (B35.1) 1:44 PM CDT DERMATOPATHOLOGY LABORATORY Clinical History R/O Onychomycosis 1:44 PM CDT DERMATOPATHOLOGY LABORATORY Gross Description Specimen A: Received is one formalin filled container labeled with the patient's name and designated right great toenail. The specimen consists of a nail clipping measuring [id number]. 1:44 PM CDT DERMATOPATHOLOGY LABORATORY Microscopic Description Specimen A. SKIN, right great toenail: Sections show nail plate. Fungal hyphae are present on Periodic acid-Paddy (PAS) stained sections. 1:44 PM CDT DERMATOPATHOLOGY LABORATORY Disclaimer An external and internal positive and negative controls are appropriate for the histochemical, immunohistochemical and immunofluorescence stain(s) in this case (if any), except where stated explicitly. The performance characteristics of the stain(s) cited in this report were developed and its performance characteristic determined by the Dermatopathology Laboratory at [facility], directed by Dr. Jos eR Alcazar. These tests need not be, and therefore are not, approved by the [place] Food and Drug Administration. The tests are used for clinical purposes. Billing Codes Specimen Charges Stain Charges 02384 1 45361 1 1:44 PM CDT DERMATOPATHOLOGY LABORATORY Embedded Images 1:44 PM CDT DERMATOPATHOLOGY LABORATORY Pathology/Cytolog y TISSUE SPECIMEN FROM SKIN / Unknown 01/25/2022 01/25/2022 3:16 PM CDT Lilliana Thomas MD LAB - PATHOLOGY/CY TOLOGY ORDERABLES DERMATOPATHOLOGY LABORATORY [facility] Department of Dermatology [facility] [address] [place] [address], [facility] [phone] * GA DRAIN/INJECT LARGE JOINT/BURSA, GA DRAIN/INJECT LARGE JOINT/BURSA (10/22/2021 4:44 PM CDT) [...] reviewed by pathologist. 10/25/2021 8:53 AM CDT [facility] Comment:This is a corrected result. Previous result was No crystals seen. To be reviewed by pathologist. on 10/22/2021 at 1313 CDT Fluid SYNOVIAL FLUID / Unknown Collection / Unknown 10/22/2021 12:03 PM CDT 10/22/2021 12:09 PM CDT Enrico Woodward III, MD LAB - BODY FL UID ORDERABLES [facility] [address] [place] [address], [place] [phone] * PATHOLOGY SMEAR BODY FLUID (10/22/2021 12:03 PM CDT) Pathology Diff Review 10/25/2021 10:59 AM CDT [facility] Comment: Final diagnosis: Synovial fluid, smear: - [...] (PseudoGout). This case was discussed with Kristen AGUILAR at 11:00 AM on 10-25-21. Diane Crain MD Cemetery Workers Supervisor Clinical Core Laboratory [facility] Fluid SYNOVIAL FLUID / Unknown Collection / Unknown 10/22/2021 12:03 PM CDT 10/22/2021 12:09 PM CDT Enrico Woodward III, MD LAB - PATHOLO GY/CYTOLOGY ORDERABLES Performing Organization Address City/[facility]/ZIP Co de Phone Number [address] [address], [facility] [phone] * DIFFERENTIAL MANUAL FLUID (10/22/2021 12:03 PM CDT) Segs % Fluid 8 % 10/22/2021 1:04 PM CDT [facility] Lymphocytes % Fluid 15 % 10/22/2021 1:04 PM CDT [facility] Monocytes % Fluid 40 % 10/22/2021 1:04 PM CDT [facility] Macrophages % Fluid 36 % 10/22/2021 1:04 PM CDT [facility] Synovial Lining Cells % 1 % 10/22/2021 1:04 PM CDT [facility] Fluid SYNOVIAL FLUID / Unknown Collection / Unknown 10/22/2021 12:03 PM CDT 10/22/2021 12:09 PM CDT Enrico Woodward III, MD LAB - BODY FL UID ORDERABLES Performing Organization Address City/[facility]/ZIP Co de Phone Number [address] [address], [facility] [phone] * CULTURE FLUID+GRAM STAIN (10/22/2021 12:03 PM CDT) Culture No growth RICHIE 10/26/2021 12:23 AM CDT [facility] Gram Stain No polymorphonuclear cells 10/26/2021 12:23 AM CDT [facility] Gram Stain No organisms seen 022 12:23 AM CDT [facility] Fluid SYNOVIAL FLUID / Unknown Collection / Unknown 10/22/2021 12:03 PM CDT 10/22/2021 12:09 PM CDT Enrico Woodward III, MD LAB - MICROBI OLOGY ORDERABLES [facility] [address] [place] [address], [facility] [phone] * (ABNORMAL) CELL COUNT W DIFF W CRYSTALS SYNOVIAL (10/22/2021 12:03 PM CDT) Color Fluid Yellow(A) Colorles s, Straw 10/22/2021 12:41 PM [facility] Clarity Fluid Hazy(A) Clear 10/22/2021 12:41 PM [facility] Volume Fluid 2.0 mL 10/22/2021 12:41 PM [facility] Viscosity Normal 10/22/2021 12:41 PM [facility] WBC Fluid 124 0 - 200 x10e6/L 10/22/2021 12:41 PM [facility] RBC Fluid <3,000(H) 0 x10e6/L 10/22/2021 12:41 PM [facility] Crystal Exam Fluid Crystal examination to follow. 10/22/2021 12:41 PM [facility] Differential Manual Differential to follow. 10/22/2021 12:41 PM [facility] Fluid SYNOVIAL FLUID / Unknown Collection / Unknown 10/22/2021 12:03 PM CDT 10/22/2021 12:09 PM CDT Narrative [facility] - 10/22/2021 12:41 PM CDT No reference ranges established for body fluid cell counts. The reference ranges provided are derived from published literature. The test results must be integrated into the clinical context for interpretation. Enrico Woodward III, MD LAB - BODY FL UID ORDERABLES [facility] [address] [place] [address], [facility] [phone] * XR PELVIS W RIGHT HIP 2VW [...] representing a teratoma. Dr. CHASE Santana MD, FRCR have personally reviewed and interpreted this examination/study. [...] the pelvis - possibly representing a teratoma. IDr. CHASE MD, [id number] have personally reviewedand interpreted this [...] by CHASE CANALES MD, FRCR on 10/22/2021 11:14 AM . Narrative 10/22/2021 [...] by CHASE CANALES MD, FRCR on 10/22/2021 11:14 AM . Enrico Woodward [...] was electronically signed by CHASE CANALES MD, [facility] on 10/22/2021 11:13 AM . Narrative 10/22/2021 [...] was electronically signed by CHASE CANALES MD, [facility] on 10/22/2021 11:13 AM . Enrico Woodward III, MD DIAGNOSTIC IM AGING ORDERABLES * LAB RESULTS ORDER (08/31/2021) Only the most recent of2 resultswithin the time period is included. Narrative 08/31/2021 Ordered by an unspecified provider. Scanned Document LAB - THERAPEUTIC DR LAU MONITORING ORDERABLES * EP INSERT SC OR DC PACER ICD PG (08/16/2021 10:40 AM CDT) Narrative [facility] - 08/16/2021 10:51 AM CDT This procedure was performed by a Cardiac Green Building Engineer in the EP lab. Please see the Op Note or Procedures Note placed by Electrophysiology. Bharathi Higuera MD ELECTROPHYS RADIANT Performing Organization Address City/[facility]/ZIP Co de Phone Number [facility] * GA DESTRUCT BENIGN LESION, 1-14 (08/05/2021 2:13 PM CDT) Josy Osorio MD - 08/05/2021 2:13 PM CDT Dominic Hines MD 08/05/2021 2:13 PM Diagnosis and treatment options discussed. Cryotherapy (Liquid Nitrogen) to iSK x 2 on face x 6-10 seconds each. Number of cycles: 1. Wound care reviewed. Josy Helton MD PROCEDURE/SHANNON R SURGICAL ORDERABLES * (ABNORMAL) PT-INR [facility] (08/02/2021 8:39 AM CDT) Only the most recent of3 resultswithin the time period is included. PT 17.6(H) 12.1 - 14.8 Seconds 08/02/2021 9:24 AM CDT [facility] INR 1.5 See Comment 08/02/2021 9:24 AM CDT [facility] Comment:The suggested therap eutic range for standard coumadin (warfarin) therapy is an INR of 2.0-3.0. For high-risk patients (Mechanical Mitral Valve Prosthesis, etc.), the suggested prophylactic therapeutic range is an INR of 2.5-3.5. Blood BLOOD SPECIMEN / Unknown Lab Venipuncture / Unknown 08/02/2021 8:39 AM CDT 08/02/2021 9:06 AM CDT Bharathi Higuera MD LAB - COAGULATION OR DERABLES [facility] [address] [place] [address], [facility] [phone] * HEAVY METALS URINE RANDOM PANEL (07/29/2021 11:43 AM CDT) Arsenic ug/g Creat Urine 33 mcg/g cr [facility] Comment: Reference Range: Nonexposed Adult: < or = 35 mcg/g creatinine Biological Exposure Index (end of shift/work week): < or = 50 mcg/g creatinine This test was developed and its analytical performance characteristics have been determined by [facility] [place] It has not been cleared or [...] analytical performance characteristics have been determined by [facility] [place]. It has not been cleared or [...] analytical performance characteristics have been determined by [facility] [place]. It has not been cleared or approved by the U.S. Food and Drug Administration. This assay has been validated pursuant to the CLIA regulations and is used for clinical purposes. Creatinine Urine 93 20 - 275 mg/dL [facility] Comment: Test Performed at: [email or web address] [place] [id number] [place] [address] NGUYEN RANDOLPH MD,PHD Urine URINE SPECIMEN OBTAINED BY CLEAN CATCH PROCEDURE / Unknown 07/29/2021 11:43 AM CDT 07/29/2021 11:44 AM CDT Gaurang Harman MD LAB - URINE CHEMISTR Y ORDERABLES [facility] [address] [place] [address] * CARDIAC EKG ORDER (07/07/2021 8:54 AM PROPERTY DAMAGE CLAIMS ADJUSTOR) Only the most recent of10 resultswithin the time period is included. Narrative 07/07/2021 8:54 AM PROPERTY DAMAGE CLAIMS ADJUSTOR Ordered by an unspecified provider. Scanned Document CARDIAC SERVICES ORD ERABLES * CT HEAD WO CONTRAST (07/04/2021 12:20 PM PROPERTY DAMAGE CLAIMS ADJUSTOR) Only the most recent of2 resultswithin the time period is included. Anatomical Region Laterality Modality Head Computed Tomogra phy 07/04/2021 12:5 9 PM PROPERTY DAMAGE CLAIMS ADJUSTOR Impressions 07/05/2021 7:45 AM PROPERTY DAMAGE CLAIMS ADJUSTOR IMPRESSION: No acute intracranial abnormality. Dictated by Feliberto Abreu D.O. (Foreign Agent) I, Dr. KATIA SCHERER have personally reviewed and interpreted this examination/study. This report was electronically signed by KATIA SCHERER on 07/05/2021 7:45 AM . Narrative 07/05/2021 7:45 AM PROPERTY DAMAGE CLAIMS ADJUSTOR CT HEAD WO CONTRAST EXAMINATION: Computed tomography [...] intracranial abnormality. Dictated by Feliberto Abreu D.O. (Foreign Agent) I, Dr. KATIA SCHERER have personally reviewed and interpreted this examination/study. This report was electronically signed by KATIA SCHERER on 07/05/2021 7:45AM . Dimas Keating DO CT ORDERABLES * EKG 12-LEAD (07/04/2021 7:53 AM PROPERTY DAMAGE CLAIMS ADJUSTOR) Only the most recent of5 resultswithin the time period is included. Ventricular Rate 100 BPM [facility] Atrial Rate 100 BPM [facility]USE P-R Interval 216 ms H MUSE QRS Duration ms 112 ms [facility] Q-T Interval ms 352 ms [facility] QTC Calculation (Bezet) 454 ms [facility] Calculated P [place] 88 degrees [facility] Calculated R [place] -84 degrees [facility] Calculated T [place] 71 degrees [facility] Interpretation EKG ATRIAL FLUTTER WITH 2:1 A-V CONDUCTION LEFT AXIS DEVIATION MINIMAL VOLTAGE CRITERIA FOR LVH, MAY BE NORMAL VARIANT ( Danial product ) ABNORMAL ECG WHEN COMPARED WITH ECG OF 03-JUL-2021 15:10, (RBBB AND LEFT ANTERIOR FASCICULAR BLOCK) IS NO LONGER PRESENT Confirmed by Bharathi Higuera ([id number]) on 07/06/2021 1:00:56 PM [facility] M[facility] 07/04/2021 7:53 AM PROPERTY DAMAGE CLAIMS ADJUSTOR 07/06/2021 1:00 PM PROPERTY DAMAGE CLAIMS ADJUSTOR Hilton Connolly MD ECG ORDERABLES [facility] * (ABNORMAL) TROPONIN I (07/04/2021 7:10 AM PROPERTY DAMAGE CLAIMS ADJUSTOR) Only the most recent of5 resultswithin the time period is included. Troponin I 0.100(H) <0.032 ng/mL 07/04/2021 7:44 AM PROPERTY DAMAGE CLAIMS ADJUSTOR [facility] Blood BLOOD SPECIMEN / Unknown Venipuncture / Unknown 07/04/2021 7:10 AM PROPERTY DAMAGE CLAIMS ADJUSTOR 07/04/2021 7:16 AM PROPERTY DAMAGE CLAIMS ADJUSTOR Dimas Keating DO LAB - CHEMISTRY OR DERABLES [address] [address], [place] [phone] * PHOSPHORUS BLOOD (07/04/2021 3:56 AM PROPERTY DAMAGE CLAIMS ADJUSTOR) Phosphorus 3.7 2.9 - 5.1 mg/dL 07/04/2021 4:32 AM PROPERTY DAMAGE CLAIMS ADJUSTOR [facility] Blood BLOOD SPECIMEN / Unknown Venipuncture / Unknown 07/04/2021 3:56 AM PROPERTY DAMAGE CLAIMS ADJUSTOR 07/04/2021 4:08 AM PROPERTY DAMAGE CLAIMS ADJUSTOR Rex Leonard MD LAB - CHEMISTRY ORD ERABLES Performing Organization Address [facility]/ZIP Co de Phone Number [address] [address], [place] [phone] * MAGNESIUM BLOOD (07/04/2021 3:56 AM PROPERTY DAMAGE CLAIMS ADJUSTOR) Only the most recent of2 resultswithin the time period is included. Magnesium 1.9 1.6 - 2.6 mg/dL 07/04/2021 4:32 AM PROPERTY DAMAGE CLAIMS ADJUSTOR [facility] Blood BLOOD SPECIMEN / Unknown Venipuncture / Unknown 07/04/2021 3:56 AM PROPERTY DAMAGE CLAIMS ADJUSTOR 07/04/2021 4:08 AM PROPERTY DAMAGE CLAIMS ADJUSTOR Rex Leonard MD LAB - CHEMISTRY ORD ERABLES [address] [address], [place] [phone] * 24 HOUR BLOOD PRESSURE MONITORING (04/16/2021) Ciara Huitron MD CARDIAC SERVICES O RDERABLES * US KIDNEY WITH DOPPLER COMPLETE (04/14/2021 8:54 AM PROPERTY DAMAGE CLAIMS ADJUSTOR) Anatomical Region Laterality Modality Abdomen Ultrasound 04/14/2021 8:49 AM PROPERTY DAMAGE CLAIMS ADJUSTOR Impressions 04/14/2021 9:31 AM PROPERTY DAMAGE CLAIMS ADJUSTOR IMPRESSION: 1. Slightly small right kidney. No evidence of nephrolithiasis, hydronephrosis, or solid renal mass. 2. Patent renal vasculature without secondary signs of renal artery stenosis. Dictated by Vero Saenz MD (human resources vice president). I, Dr. ANNA COCHRAN M.D. have personally reviewed and interpreted this examination/study. This report was electronically signed by ANNA COCHRAN M.D. on 04/14/2021 9:31 AM . Narrative 04/14/2021 9:31 AM PROPERTY DAMAGE CLAIMS ADJUSTOR EXAMINATION: 1. Complete retroperitoneal sonogram 2. Color [...] artery stenosis. Dictated by Vero Saenz MD (human resources vice president). I, Dr. ANNA COCHRAN M.D. have personally reviewed and interpreted this examination/study. This report was electronically signed by ANNA COCHRAN M.D. on 04/14/2021 9:31 AM . Ciara Huitron MD ORDERABLES * (ABNORMAL) URINALYSIS W/MICROSCOPIC REFLEX TO CULTURE (04/14/2021 8:54 AM PROPERTY DAMAGE CLAIMS ADJUSTOR) Color UA Straw Straw, Yellow 04/14/2021 9:47 AM PROPERTY DAMAGE CLAIMS ADJUSTOR [facility] Clarity UA Clear Clear 04/14/2021 9:47 AM [facility] Specific [place] UA 1.010 1.005 - 1.030 04/14/2021 9:47 AM [facility] pH UA 7.0 5.0 - 8.0 pH 04/14/2021 9:47 AM [facility] Protein UA Negative Negative 04/14/2021 9:47 AM [facility] Glucose UA Negative Negative 04/14/2021 9:47 AM [facility] Ketone UA Negative Negative 04/14/2021 9:47 AM [facility] Bilirubin UA Negative Negative 04/14/2021 9:47 AM [facility] Blood UA 2+(A) Negative 04/14/2021 9:47 AM [facility] Nitrite UA Negative Negative 04/14/2021 9:47 AM [facility] Leukocyte Esterase 1+(A) Negative 04/14/2021 9:47 AM [facility] Urobilinogen UA Negative Negative mg/dL 04/14/2021 9:47 AM [facility] RBC UA 21-50(A) None Seen, 0-2, 3-5 /HPF 04/14/2021 9:47 AM [facility] WBC UA 0-5 None Seen, 0-5 /HPF 04/14/2021 9:47 AM [facility] Squamous Epithelial Cells UA 0-2 None Seen, 0-2, 3-5 /HPF 04/14/2021 9:47 AM [facility] Urine URINE SPECIMEN OBTAINED BY CLEAN CATCH PROCEDURE / Unknown Collection / Unknown 04/14/2021 8:54 AM [facility] 04/14/2021 9:31 AM [facility] - 04/14/2021 9:47 AM [facility] Lab Status, Culture Reflex Indicated. Ciara Huitron MD LAB - URINALYSIS O RDERABLES [facility] [address] [address] [place] [address], [facility] [phone] * MICROALB/CREAT RATIO URINE RANDOM PANEL (04/14/2021 8:54 AM [facility]) Albumin Random Urine 7.1 Not Established ug/mL 04/14/2021 10:10 AM [facility] Creatinine Urine 41 Not Established mg/dL 04/14/2021 10:10 AM [facility] Urine Albumin/Creati nine Ratio 17 <30 mg/g 04/14/2021 10:10 AM [facility] Urine URINE SPECIMEN OBTAINED BY CLEAN CATCH PROCEDURE / Unknown Collection / Unknown 04/14/2021 8:54 AM PROPERTY DAMAGE CLAIMS ADJUSTOR 04/14/2021 9:35 AM PROPERTY DAMAGE CLAIMS ADJUSTOR Ciara Huitron MD LAB - URINE CHEMIS TRY ORDERABLES [facility] [address] [place] [address], [facility] [phone] * CULTURE URINE (04/14/2021 8:54 AM PROPERTY DAMAGE CLAIMS ADJUSTOR) Only the most recent of4 resultswithin the time period is included. Culture Urine <10,000 CFU/mL urogenital devendra RICHIE 04/15/2021 2:36 PM [facility] MICROBIOLOGY Urine URINE SPECIMEN OBTAINED BY CLEAN CATCH PROCEDURE / Unknown Collection / Unknown 04/14/2021 8:54 AM PROPERTY DAMAGE CLAIMS ADJUSTOR 04/14/2021 9:42 AM PROPERTY DAMAGE CLAIMS ADJUSTOR Ciara Huitron MD LAB - MICROBIOLOGY ORDERABLES Performing Organization Address City/[facility]/ZIP Co de Phone Number [facility] MICROBIOLOGY [address] [place] [address], [facility] [phone] * (ABNORMAL) RENAL FUNCTION PANEL (04/14/2021 8:54 AM PROPERTY DAMAGE CLAIMS ADJUSTOR) Only the most recent of2 resultswithin the time period is included. BUN 21 7 - 26 mg/dL 04/14/2021 10:04 AM [facility] Creatinine 1.00(H) 0.56 - 0.96 mg/dL 04/14/2021 10:04 AM [facility] Sodium 140 136 - 145 mmol/L 04/14/2021 10:04 AM [facility] Potassium 4.4 3.5 - 4.5 mmol/L 04/14/2021 10:04 AM [facility] Chloride 102 98 - 107 mmol/L 04/14/2021 10:04 AM [facility] CO2 27 22 - 29 mmol/L 04/14/2021 10:04 AM [facility] Glucose 87 70 - 115 mg/dL 04/14/2021 10:04 AM [facility] Albumin 3.9 3.4 - 5.0 g/dL 04/14/2021 10:04 AM [facility] Calcium 9.9 8.4 - 10.2 mg/dL 04/14/2021 10:04 AM [facility] Phosphorus 3.6 2.9 - 5.1 mg/dL 04/14/2021 10:04 AM [facility] Anion Gap 15 8 - 18 04/14/2021 10:04 AM [facility] BUN/Creatinine Ratio 21 7 - 23 04/14/2021 10:04 AM [facility] Osmolality Calculated 292 270 - 300 mOsm/kg 04/14/2021 10:04 AM [facility] eGFR by CKD-EPI 53(L) >=90 mL/min/1.7 3 m2 04/14/2021 10:04 AM [facility] Blood BLOOD SPECIMEN / Unknown Lab Venipuncture / Unknown 04/14/2021 8:54 AM PROPERTY DAMAGE CLAIMS ADJUSTOR 04/14/2021 9:34 AM [facility] Ciara Huitron MD LAB - CHEMISTRY OR DERABLES [facility] [address] [place] [address], [facility] [phone] * PROC EKG IN CLINIC (02/11/2021 12:08 [...] specimens collected between 7am-10am. Test Performed at: [email or web address] [address] [place], [place] NGUYEN RANDOLPH MD,PHD Blood BLOOD SPECIMEN / Unknown 02/01/2021 7:03 AM CDT 02/01/2021 7:04 AM CDT Santiago Banuelos MD LAB - CHEMISTRY ORD ERABLES Performing Organization Address [facility] [place] [address] * RENIN ACTIVITY (02/01/2021 7:03 AM CDT) [facility] Plasma Renin Activity 2.37 0.25 - 5.82 ng/mL/h [facility] Comment: This test was developed and its analytical performance characteristics have been determined by [facility]. It has not been cleared or approved by [facility]. This assay has been validated pursuant to the CLIA regulations and is used for clinical purposes. Test Performed at: [email or web address] [facility] [address] [place] [address] RAN TRIMBLE MD,PHD,MAXIMILIANO Blood BLOOD SPECIMEN / Unknown 02/01/2021 7:03 AM CDT 02/01/2021 7:04 AM CDT Santiago Banuelos MD LAB - CHEMISTRY ORD ERABLES Performing Organization Address [facility] de Phone Number [place] [phone] [place] [phone] * ALDOSTERONE BLOOD (02/01/2021 7:03 AM CDT) [facility] Aldosterone 4 ng/dL [facility] Comment: Adult Reference Ranges for Aldosterone: Upright 8:00-10:00 am < or = 28 ng/dL Upright 4:00-6:00 pm < or = 21 ng/dL Supine 8:00-10:00 am 3-16 ng/dL This test was developed and its analytical performance characteristics have been determined by [facility]. It has not been cleared or approved by FDA. This assay has been validated pursuant to the CLIA regulations and is used for clinical purposes. Test Performed at: [email or web address] [address] [place] [address] RAN TRIMBLE MD,PHD,MAXIMILIANO Blood BLOOD SPECIMEN / Unknown 02/01/2021 7:03 AM CDT 02/01/2021 7:04 AM CDT Santiago Banuelos MD LAB - CHEMISTRY ORD ERABLES Performing Organization Address [facility] Co de Phone Number [address] [address] * SODIUM URINE RANDOM (02/01/2021 7:03 AM CDT) Sodium Urine 43 28 - 272 mmol/L [facility] Comment: Test Performed at: [email or web address] [place] [address] [employer] [id number] ENRICO WYNN DO,MPH Urine URINE SPECIMEN OBTAINED BY CLEAN CATCH PROCEDURE / Unknown 02/01/2021 7:03 AM CDT 02/01/2021 7:04 AM CDT Santiago Banuelos MD LAB - URINE MATERIAL CLERK RY ORDERABLES Performing Organization Address [facility] Co de Phone Number [facility] [phone] [place] [phone] * CREATININE URINE RANDOM (02/01/2021 7:03 AM CDT) Creatinine Urine 55 20 - 275 mg/dL [facility] Comment: Test Performed at: [email or web address] [place] [address] [employer] [id number] ENRICO WYNN DO,MPH Urine URINE SPECIMEN OBTAINED BY CLEAN CATCH PROCEDURE / Unknown 02/01/2021 7:03 AM CDT 02/01/2021 7:04 AM CDT Santiago Banuelos MD LAB - URINE MATERIAL CLERK RY ORDERABLES Performing Organization Address [facility] Co de Phone Number [facility] [phone] [place] [address] * TSH (02/01/2021 7:03 AM CDT) Only the most recent of4 resultswithin the time period is included. TSH 3.79 0.40 - 4.50 mIU/L [facility] Comment: Test Performed at: [email or web address] [facility] [address] [place] [address] ENRICO WYNN DO,MPH Blood BLOOD SPECIMEN / Unknown 02/01/2021 7:03 AM CDT 02/01/2021 7:04 AM CDT Santiago Banuelos MD LAB - CHEMISTRY ORD ERABLES Performing Organization Address [facility] Co de Phone Number [facility] [address] [place] [address] * CORTISOL BLOOD AM (02/01/2021 7:03 AM CDT) Pathologist [facility] Cortisol AM 19.2 mcg/dL [facility] Comment: Reference Range 8 a.m. (7-9 a.m.) Specimen: 4.0-22.0 REPORT COMMENT: FASTING:YES Test Performed at: [email or web address] [address] [address] ENRICO WYNN DO,MPH Blood BLOOD SPECIMEN / Unknown 02/01/2021 7:03 AM CDT 02/01/2021 7:04 AM CDT Santiago Banuelos MD LAB - CHEMISTRY ORD ERABLES Performing Organization Address [facility] Co de Phone Number [address] [address] * GA US SOFT TISS HEAD&NCK R-T IMG (01/29/2021 [...] Essential hypertension Referring Physician: Dr. Kristen Graf, ETCHED CIRCUIT PROCESSOR-CODE AND TEST CLERK Procedure Preformed: Ultrasound Only COMPARED TO; 07/23/2020 [...] URINALYSIS W/MICROSCOPIC NO CULTURE (01/02/2021 8:39 AM T) Only the most recent of5 resultswithin the time period is included. Color UA Straw Straw, Yellow 01/02/2021 9:01 AM [facility] Clarity UA Clear Clear 01/02/2021 9:01 AM [facility] Specific Bonifay UA 1.010 1.005 - 1.030 01/02/2021 9:01 AM [facility] pH UA 6.0 5.0 - 8.0 pH 01/02/2021 9:01 AM [facility] Protein UA Negative Negative 01/02/2021 9:01 AM [facility] Glucose UA Negative Negative 01/02/2021 9:01 AM [facility] Ketone UA Negative Negative 01/02/2021 9:01 AM [facility] Bilirubin UA Negative Negative 01/02/2021 9:01 AM CDT [facility] Blood UA 3+(A) Negative 01/02/2021 9:01 AM CDT [facility] Nitrite UA Negative Negative 01/02/2021 9:01 AM CDT [facility] Leukocyte Esterase Negative Negative 01/02/2021 9:01 AM CDT [facility] Urobilinogen UA Negative Negative mg/dL 01/02/2021 9:01 AM T [facility] RBC UA 21-50(A) None Seen, 0-2, 3-5 /HPF 01/02/2021 9:01 AM CDT [facility] WBC UA 0-5 None Seen, 0-5 /HPF 01/02/2021 9:01 AM T [facility] Squamous Epithelial Cells UA 0-2 None Seen, 0-2, 3-5 /HPF 01/02/2021 9:01 AM CDT [facility] Urine URINE SPECIMEN OBTAINED BY CLEAN CATCH PROCEDURE / Unknown Collection / Unknown 01/02/2021 8:39 AM CDT 01/02/2021 8:44 AM CDT Narrative [facility] - 01/02/2021 9:01 AM CDT Areli Curtis MD LAB - URINALYSIS ORD ERABLES [facility] [address] [place] [address], [facility] [phone] * XR CHEST 2VW (01/02/2021 6:18 AM [...] Report drafted by Sanna Norris M.D. (resident) IDr. GIL MD have personally reviewed and interpreted this [...] MD on01/02/2021 7:38 PM . Ana Hillman ETCHED CIRCUIT PROCESSOR-CODE AND TEST CLERK DIAGNOSTIC I MAGING ORDERABLES * HEPATIC FUNCTION PANEL (01/02/2021 6:01 AM CDT) Protein Total 6.9 6.0 - 8.3 g/dL 021 6:55 AM CDT [facility] Albumin 4.1 3.4 - 5.0 g/dL 01/02/2021 6:55 AM CDT [facility] Bilirubin Total 0.8 0.2 - 1.2 mg/dL 12/14 6:55 AM CDT [facility] Bilirubin Conjugated 0.2 0.1 - 0.5 mg/dL 01/02/2021 6:55 AM [facility] Bilirubin Unconjugated 0.6 Unconjugated Bilirubin is a calculated value: Reference ranges have not been established. mg/dL 01/02/2021 6:55 AM CDT [facility] Alkaline Phosphatase 91 40 - 150 U/L 01/02/2021 6:55 AM CDT [facility] ALT 13 5 - 55 U/L 01/02/2021 6:55 AM CDT [facility] AST 20 5 - 34 U/L 01/02/2021 6:55 AM CDT [facility] Albumin/Globulin Ratio 1.5 1.1 - 2.3 01/02/2021 6:55 AM CDT [facility] Blood BLOOD SPECIMEN / Unknown Venipuncture / Unknown 01/02/2021 6:01 AM CDT 01/02/2021 6:21 AM CDT Areli Curtis MD LAB - CHEMISTRY BEVERLY DOMINGUEZ [address] [address], [facility] [phone] * FOLATE (01/02/2021 6:01 AM CDT) Only the most recent of2 resultswithin the time period is included. Folate 14.5 7.0 - 31.4 ng/mL 01/02/2021 7:20 AM CDT [facility] Blood BLOOD SPECIMEN / Unknown Venipuncture / Unknown 01/02/2021 6:01 AM CDT 01/02/2021 6:21 AM CDT Areli Curtis MD LAB - CHEMISTRY BEVERLY DOMINGUEZ Performing Organization Address City/[facility]/ZIP Co de Phone Number [address] [address], [facility] [phone] * ECHO COMPLETE (11/20/2020 9:55 AM CDT) Anatomical Region Laterality Modality Chest Echo 11/20/2020 9:22 AM CDT Narrative Procedure Note Elizabeth Torrez MD - 11/20/2020 Bharathi Higuera MD ECHOCARDIOGRAPHY RAD IANT * METANEPHRINES FRACTIONATED PLASMA (11/20/2020 7:08 AM CDT) Metanephrine Fract Free <25 <=57 pg/mL [facility] Comment: This test was developed and its analytical performance characteristics have been determined by [facility] [place]. It has not been cleared or approved by the U.S. Food and Drug Administration. This assay has been validated pursuant to the CLIA regulations and is used for clinical purposes. Normetanephrine Free 72 <=148 pg/mL [facility] Comment: This test was developed and its analytical performance characteristics have been determined by [facility] [place]. It has not been cleared or approved by the U.S. Food and Drug Administration. This assay has been validated pursuant to the CLIA regulations and is used for clinical purposes. Free Metanephrine + Normetanephrine 72 <=205 pg/mL [facility] Comment: For additional information, please refer to http://education.ParkVu/faq/MetFractFree (This link is being provided for informational/educatio [...] analytical performance characteristics have been determined by [facility] [place]. It has not been cleared or approved by the U.S. Food and Drug Administration. This assay has been validated pursuant to the CLIA regulations and is used for clinical purposes. REPORT COMMENT: FASTING:NO Test Performed at: [email or web address] [facility] [address] [place] [address] NGUYEN RANDOLPH MD,PHD 11/20/2020 7:08 AM CDT 11/20/2020 7:08 AM CDT Santiago Banuelos MD LAB - CHEMISTRY ORD ERABLES Performing Organization Address [facility] Co de Phone Number [facility] [address] [place] [address] * METANEPHRINES URINE FRACTIONATED (11/20/2020 7:08 AM CDT) Metanephrine Urine 105 21 - 153 mcg/g creat [facility] Comment: This test was developed and its analytical performance characteristics have been determined by [facility]. It has not been cleared or approved by FDA. This assay has been validated pursuant to the CLIA regulations and is used for clinical purposes. Normetanephrine Urine 256 108 - 524 mcg/g creat [facility] Comment: This test was developed and its analytical performance characteristics have been determined by [facility]. It has not been cleared or approved by FDA. This assay has been validated pursuant to the CLIA regulations and is used for clinical purposes. Metanephrine Total Urine 361 149 - 603 mcg/g creat [facility] Comment: A four-fold elevation of urinary normetanephrines is extremely likely due to a tumor, while a four-fold elevation of urinary metanephrines is highly suggestive, but not diagnostic of the tumor. Measurement of plasma Metanephrines and Chromogranin A is recommended for confirmation. This test was developed and its analytical performance characteristics have been determined by [facility]. It has not been cleared or approved by FDA. This assay has been validated pursuant to the CLIA regulations and is used for clinical purposes. Creatinine Urine 29 20 - 275 mg/dL [facility] Comment: REPORT COMMENT: FASTING:NO Test Performed at: [email or web address] [facility] [address] [place] [address] RAN TRIMBLE MD,PHD,MAXIMILIANO 11/20/2020 7:08 AM CDT 11/20/2020 7:08 AM CDT Santiago Banuelos MD LAB - URINE MATERIAL CLERK RY ORDERABLES Performing Organization Address [facility] Co de Phone Number [facility] [address] [place] [address] * GA CYSTOURETHROSCOPY (09/08/2020 1:22 PM CDT) Narrative Kiersten Yepez APRN-CNP - 09/08/2020 1:22 PM CDT Kiersten Yepez [...] POCT neg Ketones UA POCT neg Specific Bonifay UA 1.015 Blood Urine POCT 80Ery/uL pH [...] Pattern Normal Pattern 08/19/2020 1:41 PM CDT [facility] Comment: Urine immunofixation electrophoresis shows polyclonal IgG and IgA immunoglobulins. Urine immunofixation electrophoresis shows polyclonal kappa and lambda light chains. No monoclonal immunoglobulins detected. Liana Slade PhD, [facility] Clinical Streetsweeper Operator site monitor *The electrophoresis pattern and the interpretation have been reviewed and verified by the teaching physician. Urine URINE SPECIMEN COLLECTION, 24 HOURS / Unknown Timed Urine Volume Measurement / Unknown 08/14/2020 2:53 PM CDT 08/14/2020 4:20 PM CDT Gaurang Harman MD LAB - URINE CHEMISTR Y ORDERABLES [facility] [address] [place] [address], [facility] [phone] * LEAD URINE (08/11/2020 4:56 PM CDT) Lead Urine ug/L <5.0 0.0 - 5.0 ug/L 08/17/2020 11:08 AM CDT [employer] ([facility]) Comment: INTERPRETIVE INFORMATION: Lead, Urine Quantification of urine excretion rates before or after chelation therapy has been used as an indicator of lead exposure. Urinary excretion of >125 mg of lead per 24 hours is usually associated with related evidence of lead toxicity. This test was developed and its performance characteristics determined by [facility]. It has not been cleared or approved by the US Food and Drug Administration. This test was performed in a CLIA certified laboratory and is intended for clinical purposes. Collection Time Hours Random hr 08/17/2020 11:08 AM CDT [facility] ([facility]) Comment: Per 24h calculations are provided to [...] Urine Random mL 08/17/2020 11:08 AM CDT [employer] ([facility]) Lead Urine ug/24HR Not Applicable 0.0 - 8.1 ug/d 08/17/2020 11:08 AM CDT [facility] ([facility]) Lead Urine ug/g creat Not Applicable 0.0 - 5.0 ug/g PNEUDRAULIC SYSTEMS MECHANIC 08/17/2020 11:08 AM CDT [facility] ([facility]) Comment: Unable to accurately calculate the creatinine normalized result due to a low per volume result. Creatinine Urine 32 mg/dL 08/18/19 11:08 AM CDT [facility] ([facility]) Creatinine 24 Hour Urine Not Applicable 500 - 1400 mg/d 08/17/2020 11:08 AM CDT [facility] ([facility]) Comment: Performed by [facility], [address] [place] [address] [email or web address], Jolene Andujar MD, Lab. Director Urine URINE SPECIMEN OBTAINED BY CLEAN CATCH PROCEDURE / Unknown Collection / Unknown 08/11/2020 4:56 PM CDT 08/11/2020 4:56 PM CDT Narrative [facility] ([facility]) - 08/17/2020 11:08 AM CDT Test results should be interpreted with caution. Assay was performed at client's request on a sub-optimal specimen. Gaurang Harman MD LAB - URINE CHEMISTR Y ORDERABLES Performing Organization Address City/[facility]/ZIP Co de Phone Number [facility] ([facility]) [address] [place] [address] * ARSENIC EXPOSURE PROFILE URINE (08/11/2020 4:55 PM CDT) Arsenic Total 24 Hour Urine See Scanned Report 03/08/2021 4:22 PM CDT [facility] ([facility]) Urine URINE / Unknown Collection / Unknown 08/11/2020 4:55 PM CDT 08/11/2020 4:56 PM CDT Gaurang Harman MD LAB - TOXICOLOGY ORD ERABLES [facility] ([facility]) [address] [place] [address] * MERCURY URINE (08/11/2020 4:55 PM CDT) Mercury Urine <2.5 0.0 - 5.0 ug/L 08/17/2020 11:19 AM CDT [facility] ([facility]) Comment: INTERPRETIVE INFORMATION: Mercury, Urine Urinary mercury [...] developed and its performance characteristics determined by [facility]. It has not been cleared or approved by the US Food and Drug Administration. This test was performed in a CLIA certified laboratory and is intended for clinical purposes. Collection Time Hours Random hr 08/17/2020 11:19 AM T [employer] ([facility]) Comment: Sub-optimal specimen type. Specimen was received in a noncertified trace element-free tube. Results from noncertified trace element-free tubes may be falsely elevated due to contamination. Concentrations of trace elements should be confirmed with a second specimen transported in a certified trace element-free tube. Specimen tested at client's request. [id number] Per 24h calculations are provided to aid interpretation for collections with a duration of 24 hours and an average daily urine volume. For specimens with notable deviations in collection time or volume, ratios of analytes to a corresponding urine creatinine concentration may assist in result interpretation. Volume 24 Hour Urine Random mL 08/17/2020 11:19 AM CDT [employer] ([facility]) Mercury 24 Hour Urine Not Applicable 0.0 - 20.0 ug/d 08/17/2020 11:19 AM T [facility]) Mercury ug/g Creat Urine Not Applicable 0.0 - 20.0 ug/g PNEUDRAULIC SYSTEMS MECHANIC 08/17/2020 11:19 AM T [employer] ([facility]) Comment: Unable to accurately calculate the creatinine normalized result due to a low per volume result. Creatinine Urine 32 mg/dL 08/18/19 11:19 AM CDT [facility] ([facility]) Creatinine 24 Hour Urine Not Applicable 500 - 1400 mg/d 08/17/2020 11:19 AM CDT [facility] ([facility]) Comment: Performed by [facility], [address] [place] [address] [email or web address], Jolene Andujar MD, Lab. Director Urine URINE / Unknown Collection / Unknown 08/11/2020 4:55 PM CDT 08/11/2020 4:56 PM CDT Narrative [facility] ([facility]) - 08/17/2020 11:19 AM CDT Test results should be interpreted with caution. Assay was performed at client's request on a sub-optimal specimen. Gaurang Harman MD LAB - URINE CHEMISTR Y ORDERABLES [facility] ([facility]) [address] * SS-A (SJOGREN'S) 52+60 ANTIBODIES (08/11/2020 3:58 PM CDT) SS-A 52 Antibody 0 0 - 40 AU/mL 08/14/2020 8:20 AM CDT [facility] ([facility]) Comment: INTERPRETIVE INFORMATION: SSA-52 (Ro52) ([place]) Antibody, [...] - 40 AU/mL 08/14/2020 8:20 AM CDT [facility] ([facility]) Comment: REFERENCE INTERVAL: SSA-60 (Ro60) ([place]) Antibody, IgG 29 AU/mL or Less ............. Negative 30 - 40 AU/mL ................ Equivocal 41 AU/mL or Greater .......... Positive Performed By: [facility] [address] [place] [id number] Maintenance Helper: Jolene Andujar MD Blood BLOOD SPECIMEN / Unknown Lab Venipuncture / Unknown 08/11/2020 3:58 PM CDT 08/11/2020 5:05 PM CDT Gaurang Harman MD LAB - CHEMISTRY BEVERLY DOMINGUEZ [facility] ([facility]) [address] [place] [address] * LAB MISC TEST (08/11/2020 3:58 PM CDT) [facility] Test Name SEE SCANNED REPORT 01/10/2021 9:19 AM CDT [facility] Blood BLOOD SPECIMEN / Unknown Lab Venipuncture / Unknown 08/11/2020 3:58 PM CDT 08/11/2020 4:21 PM CDT Gaurang Harman MD LAB SEND OUT Performing Organization Address [facility] Co de Phone Number [facility] [address] [place] [address] * IMMUNOFIXATION BLOOD (08/11/2020 3:58 PM CDT) [facility] Immunofixation Serum Normal Pattern Normal Pattern 08/19/2020 1:41 PM CDT [facility] Comment: No monoclonal immunoglobulins detected by serum immunotyping. Liana Slade PhD, [facility] Clinical Streetsweeper Operator site monitor *The electrophoresis pattern and the interpretation have been reviewed and verified by the teaching physician. Blood BLOOD SPECIMEN / Unknown Lab Venipuncture / Unknown 08/11/2020 3:58 PM CDT 08/11/2020 5:04 PM CDT Gaurang Harman MD LAB - CHEMISTRY BEVERLY DOMINGUEZ [facility] [address] [place] [address], [facility] [phone] * T4 FREE DIRECT DIALYSIS (08/11/2020 3:58 PM CDT) [facility] T4 Free Direct Dialysis 2.0 1.1 - 2.4 ng/dL 08/15/2020 4:38 AM CDT [facility] ([facility]) Comment: FREE T4 BY EQUIL DIALYSIS-TMS: REFERENCE INTERVALS 1ST TRIMESTER ...... 0.7 - 2.0 ng/dL 2ND TRIMESTER ...... 0.7 - 2.1 ng/dL 3RD TRIMESTER ...... 0.5 - 1.6 ng/dL INTERPRETIVE INFORMATION: FT4 ED-TMS This test was developed and its performance characteristics determined by [facility]. It has not been cleared or approved by the US Food and Drug Administration. This test was performed in a CLIA certified laboratory and is intended for clinical purposes. Performed By: [facility] [address] [place] [address] Maintenance Helper: Jolene Andujar MD Blood BLOOD SPECIMEN / Unknown Lab Venipuncture / Unknown 08/11/2020 3:58 PM CDT 08/11/2020 5:05 PM CDT Santiago Banuelos MD LAB - CHEMISTRY ORD ERABLES [facility]) [address] [place] [address], [facility] * MILLER (SM) ANTIBODY MONICA (08/11/2020 3:58 PM CDT) [facility] Miller (MONICA) Antibody 1 0 - 40 AU/mL 08/13/2020 10:29 AM CDT [facility] ([facility]) Comment: INTERPRETIVE INFORMATION: Miller (MONICA) Antibody, IgG 29 AU/mL or Less ............. Negative 30 - 40 AU/mL ................ Equivocal 41 AU/mL or Greater .......... Positive Miller antibody is highly specific (greater than 90 percent) for systemic lupus erythematosus (SLE) but only occurs in 30-35 percent of SLE cases. The presence of antibodies to Miller has variable associations with SLE clinical manifestations. Performed By: [facility] [address] [place] [address] Maintenance Helper: Jolene Andujar MD Blood BLOOD SPECIMEN / Unknown Lab Venipuncture / Unknown 08/11/2020 3:58 PM CDT 08/11/2020 5:05 PM CDT Gaurang Harman MD LAB - CHEMISTRY BEVERLY DOMINGUEZ [facility]) [address] [place] [address] * GABE BLOOD SCREEN W/REFLEX TITER (08/11/2020 3:58 PM CDT) GABE IgG None Detected None Detected 08/13/2020 10:56 PM CDT [facility] ([facility]) Comment: If suspicion of connective tissue disease is strong and GABE EIA is negative, consider testing for GABE by IFA ([id number]). INTERPRETIVE INFORMATION: Anti-Nuclear Antibodies (GABE), IgG by IDANIA Antinuclear Antibodies (GABE), IgG by IDANIA: GABE specimens are screened using enzyme-linked immunosorbent assay (IDANIA) methodology. All IDANIA results reported as Detected are further tested by indirect fluorescent assay (IFA) using HEp-2 substrate with an IgG-specific conjugate. The GABE IDANIA screen is designed to detect antibodies against dsDNA, histones, SS-A (Ro), SS-B (La), Miller, Miller/CARE COORDINATION MANAGER, Scl-70, Gisselle-1, centromeric proteins, other antigens extracted from the HEp-2 cell nucleus. GABE IDANIA assays have been reported to have lower sensitivities than GABE IFA for systemic autoimmune rheumatic diseases (SARD). Negative results do not necessarily rule out SARD. Performed By: [facility] [address] [place] [address] Maintenance Helper: Jolene Andujar MD Blood BLOOD SPECIMEN / Unknown Lab Venipuncture / Unknown 08/11/2020 3:58 PM CDT 08/11/2020 5:05 PM CDT Gaurang Harman MD LAB - CHEMISTRY BEVERLY DOMINGUEZ [facility] ([facility]) [address] * METHYLMALONIC ACID BLOOD (08/11/2020 3:58 PM CDT) Pathologist [facility] Methylmalonic Acid 0.19 0.00 - 0.40 umol/L 08/15/2020 4:31 AM CDT [facility] ([facility]) Comment: INTERPRETIVE INFORMATION: MMA Serum/Plasma, Vitamin B12 Status This test was developed and its performance characteristics determined by [facility]. It has not been cleared or approved by the US Food and Drug Administration. This test was performed in a CLIA certified laboratory and is intended for clinical purposes. Performed By: [facility] [address] [place] [address] Maintenance Helper: Jolene Andujar MD Blood BLOOD SPECIMEN / Unknown Lab Venipuncture / Unknown 08/11/2020 3:58 PM CDT 08/11/2020 5:05 PM CDT Gaurang Harman MD LAB - CHEMISTRY ORDE ANGELICA [facility]) [address] [place] [address] * ZINC BLOOD (08/11/2020 3:58 PM CDT) Zinc 67.3 60.0 - 120.0 ug/dL 08/13/2020 7:25 AM CDT [facility] ([facility]) Comment: INTERPRETIVE INFORMATION: Zinc, Serum or Plasma [...] developed and its performance characteristics determined by [employer]. It has not been cleared or approved by the US Food and Drug Administration. This test was performed in a CLIA certified laboratory and is intended for clinical purposes. Performed By: [facility] [address] [place] [address] Maintenance Helper: Jolene Andujar MD Blood BLOOD SPECIMEN / Unknown Lab Venipuncture / Unknown 08/11/2020 3:58 PM CDT 08/11/2020 4:21 PM CDT Gaurang Harman MD LAB - CHEMISTRY BEVERLY DOMINGUEZ Performing Organization Address City/[facility]/ZIP Co de Phone Number [facility] ([facility]) [address] * VITAMIN E (08/11/2020 3:58 PM CDT) Vitamin E Alpha Tocopherol 9.5 5.5 - 18.0 mg/L 08/15/2020 3:49 PM CDT [facility] ([facility]) Comment: This test was developed and its performance characteristics determined by [facility]. It has not been cleared or approved by the US Food and Drug Administration. This test was performed in a CLIA certified laboratory and is intended for clinical purposes. Vitamin E Gamma Tocopherol 1.2 0.0 - 6.0 mg/L 08/15/2020 3:49 PM CDT [facility] ([facility]) Comment: Performed By: [facility] [address] [place] [address] Maintenance Helper: Jolene Andujar MD Blood BLOOD SPECIMEN / Unknown Lab Venipuncture / Unknown 08/11/2020 3:58 PM CDT 08/11/2020 5:04 PM CDT Gaurang Harman MD LAB - CHEMISTRY BEVERLY DOMINGUEZ Performing Organization Address [facility] Co de Phone Number [facility] ([facility]) [address] * COPPER BLOOD (08/11/2020 3:58 PM CDT) Copper 121.3 80.0 - 155.0 ug/dL 08/13/2020 7:25 AM CDT [facility] ([facility]) Comment: INTERPRETIVE INFORMATION: Copper, Serum or Plasma [...] developed and its performance characteristics determined by [facility]. It has not been cleared or approved by the US Food and Drug Administration. This test was performed in a CLIA certified laboratory and is intended for clinical purposes. Performed By: [facility] [address] [place] [address] Maintenance Helper: Jolene Andujar MD Blood BLOOD SPECIMEN / Unknown Lab Venipuncture / Unknown 08/11/2020 3:58 PM CDT 08/11/2020 4:21 PM CDT Gaurang Harman MD LAB - CHEMISTRY BEVERLY DOMINGUEZ [facility] [employer]) [address] [place] [address], [facility] * SS-B (SJOGREN'S) ANTIBODY (08/11/2020 3:58 PM CDT) SS-B Antibody 0 0 - 40 AU/mL 08/14/2020 7:44 AM CDT [facility] ([facility]) Comment: INTERPRETIVE INFORMATION: SSB (La) (MONICA) Ab, [...] (PSS) also have this antibody. Performed By: [facility] [address] [place] [address] Maintenance Helper: Jolene Andujar MD Blood BLOOD SPECIMEN / Unknown Lab Venipuncture / Unknown 08/11/2020 3:58 PM CDT 08/11/2020 5:04 PM CDT Gaurang Harman MD LAB - CHEMISTRY ORDE RABKELLY Performing Organization Address [facility]/ZIP Co de Phone Number [facility]) [address] * DNA ANTIBODY DOUBLE STRANDED (08/11/2020 3:58 PM CDT) dsDNA Antibody None Detected None Detected 08/13/2020 1:38 PM CDT [facility] ([facility]) Comment: INTERPRETIVE INFORMATION: Double-Stranded DNA (dsDNA) Antibody, [...] DANNY. If the patient is negative by DANNY but positive by IDANIA and clinical suspicion remains, consider antinuclear antibody (GABE) testing by IFA. Additional information and recommendations for testing may be found at http://[email or web address]/[email or web address]/[email or web address]/[email or web address] ndex.[email or web address]. Performed By: [facility] [address] [place] [address] Maintenance Helper: Jolene Andujar MD Blood BLOOD SPECIMEN / Unknown Lab Venipuncture / Unknown 08/11/2020 3:58 PM CDT 08/11/2020 5:05 PM CDT Gaurang Harman MD LAB - HEMATOLOGY ORD ERABLES [facility] ([facility]) [address] * ALDOLASE (08/11/2020 3:58 PM CDT) Aldolase 4.8 1.5 - 8.1 U/L 08/13/2020 6:48 AM CDT [facility] ([facility]) Comment: REFERENCE INTERVAL: Aldolase Access complete set of age- and/or gender-specific reference intervals for this test in the [facility] Laboratory Test Directory (T-Quad 22). Performed By: [facility] [employer] [address] [place] [address] Maintenance Helper: Jolene Andujar MD Blood BLOOD SPECIMEN / Unknown Lab Venipuncture / Unknown 08/11/2020 3:58 PM CDT 08/11/2020 5:05 PM CDT Gaurang Harman MD LAB - CHEMISTRY BEVERLY DOMINGUEZ Performing Organization Address City/[facility]/ZIP Co de Phone Number [facility] [employer] ([facility]) [address] [place] [address] * KAPPA/LAMBDA LITE CHAIN FREE PANEL (08/11/2020 3:58 PM CDT) [facility] [place] Quant Free Light Chain 13.30 3.30 - 19.40 mg/L 08/14/2020 7:34 AM CDT [facility] ([facility]) Comment: INTERPRETIVE INFORMATION: [place] Qnt Free Light Chains Undetected antigen excess is a rare event but cannot be excluded. Free light chain results should always be interpreted in conjunction with other clinical and laboratory findings. Lambda Free Light Chain Quantitative 10.71 5.71 - 26.30 mg/L 08/14/2020 7:34 AM CDT [facility] ([facility]) [place]/Lambda Free Light Chain ratio 1.24 0.26 - 1.65 08/14/2020 7:34 AM CDT [facility]) Comment: Performed By: [facility] [address] [place] [address] Maintenance Helper: Jolene Andujar MD Blood BLOOD SPECIMEN / Unknown Lab Venipuncture / Unknown 08/11/2020 3:58 PM CDT 08/11/2020 5:06 PM CDT Gaurang Harman MD LAB - CHEMISTRY BEVERLY DOMINGUEZ Performing Organization Address City/[facility]/ZIP Co de Phone Number [facility] ([facility]) [address] [place] [address] * (ABNORMAL) ERYTHROCYTE SEDIMENTATION RATE (08/11/2020 3:58 PM CDT) [facility] Erythrocyte Sedimentation Rate Westergren 58(H) 0 - 30 MM/HR 08/11/2020 4:45 PM CDT [facility] Blood BLOOD SPECIMEN / Unknown Lab Venipuncture / Unknown 08/11/2020 3:58 PM CDT 08/11/2020 4:24 PM CDT Gaurang Harman MD LAB - HEMATOLOGY ORD HARMAN [address] [address], [place] [phone] * CK BLOOD (08/11/2020 3:58 PM CDT) [facility] CK Total 128 30 - 200 Units/L 08/11/2020 5:24 PM CDT [facility] Blood BLOOD SPECIMEN / Unknown Lab Venipuncture / Unknown 08/11/2020 3:58 PM CDT 08/11/2020 4:24 PM CDT Gaurang Harman MD LAB - CHEMISTRY BEVERLY DOMINGUEZ Performing Organization Address City/[facility]/ZIP Co de Phone Number [address] [address], [place] [phone] * T4 FREE (08/11/2020 3:58 PM CDT) Only the most recent of2 resultswithin the time period is included. [facility] T4 Free 1.1 0.7 - 1.5 ng/dL 08/11/2020 5:22 PM CDT [facility] Blood BLOOD SPECIMEN / Unknown Lab Venipuncture / Unknown 08/11/2020 3:58 PM CDT 08/11/2020 4:24 PM CDT Santiago Banuelos MD LAB - CHEMISTRY ORD HARMAN [address] [address], [place] [phone] * GA US GUIDED NEEDLE PLACEMENT, GA US SOFT TISS HEAD&NCK R-T IMG, GA FNA BX W US GDN 1ST LES (07/23/2020 2:18 PM PROPERTY DAMAGE CLAIMS ADJUSTOR) Narrative Santiago Banuelos MD - 07/23/2020 2:18 PM PROPERTY DAMAGE CLAIMS ADJUSTOR Santiago Banuelos MD 07/23/2020 2:36 PM Ultrasound Of Thyroid Ultrasound of the Thyroid PHYSICIAN Santiago Banuelos MD FELLOW NONE Test Date: 07/23/2020 Test Indication: Patient Active Problem List: Typical atrial flutter Thyroid nodule Goiter, nontoxic, multinodular Referring Physician: Dr. Kristen Graf, ETCHED CIRCUIT PROCESSOR-CODE AND TEST CLERK Procedure Preformed: Ultrasound and Biopsy Nodule Size: [...] Thyroid Date: 07/23/2020 Referring MD: Kristen Graf [facility] Physician: Santiago Banuelos MD Fellow: NONE [...] dictated by Cas Cordero MD (vice president of software development). ACR TI-RADS recommendations TR5 (>=7 points) (risk [...] Dr on 07/16/2020 11:55 AM . I, . BIA THOMPSON have personally reviewed and interpreted [...] ASPIRATION - THYROID (STL) (07/23/2020 1:31 PM PROPERTY DAMAGE CLAIMS ADJUSTOR) Case Report Medical Cytology Report Case: [id number] Authorizing Provider: Santiago Banuelos MD Collected: 07/23/2020 01:31 PM Ordering Location: [facility], Received: 07/23/2020 03:14 PM Diabetes and Metabolism Pathologist: Any Baez MD Specimen: Thyroid Mass , RIGHT NODULE 07/28/2020 2:[address] [facility] Specimen Adequacy Adequate cellularity for evaluation. 07/28/2020 2:[address] [facility] Final Diagnosis Thyroid, right nodule, FNA: - Benign - Consistent with a benign follicular nodule 07/28/2020 2:[address] [facility] Clinical History Right thyroid nodule 07/28/2020 2:[address] [facility] Gross Description 1 pap stained slide and 1 cell block from 15cc bloody collection fluid 07/28/2020 2:[address] [facility] Microscopic Description Moderate amount of colloid and moderate sized follicles. No significant macrophages seen. 07/28/2020 2:[address] [facility] Disclaimer The performance characteristics of all immunohistochemical and indirect immunofluorescence stains (if any) cited in this report were determined by the Histopathology Laboratory of [facility]. Some of these tests rely on the use of analyte-specific reagents and are subject to specific labeling requirements by the US Food and Drug Administration. Such tests were developed by the Histology Laboratory of [facility] and have not been cleared or [...] the attending (teaching) pathologist. 07/28/2020 2:[address] [facility] Embedded Images 07/28/2020 2:59 PM [facility] PATHOLOGY LAB Pathology/Cytolo gy MASS OF THYROID GLAND / Unknown Collection / Unknown 07/23/2020 1:31 PM PROPERTY DAMAGE CLAIMS ADJUSTOR 07/23/2020 3:14 PM PROPERTY DAMAGE CLAIMS ADJUSTOR Santiago Banuelos MD LAB - PATHOLOGY/CYT OLOGY ORDERABLES [facility] [address] [facility]. [address] [phone] * US THYROID (07/16/2020 10:56 AM PROPERTY DAMAGE CLAIMS ADJUSTOR) Anatomical Region Laterality Modality Chest Ultrasound 07/16/2020 10:4 2 AM PROPERTY DAMAGE CLAIMS ADJUSTOR Impressions 07/16/2020 2:44 PM PROPERTY DAMAGE CLAIMS ADJUSTOR IMPRESSION: 1. 2.8 cm right thyroid lobe nodule (TI-RADS 3), recommend fine-needle aspiration. 2. 0.5 cm left thyroid lobe nodule (TI-RADS 4). No further imaging evaluation is needed according to ACR TI-RADS guidelines. Report dictated by Cas Cordero MD (vice president of software development). ACR TI-RADS recommendations TR5 (>=7 points) (risk [...] BIA THOMPSON on 07/16/2020 2:44 PM . Narrative 07/16/2020 2:44 PM PROPERTY DAMAGE CLAIMS ADJUSTOR EXAMINATION: THYROID SONOGRAM HISTORY: 79-year-old female with [...] dictated by Cas Cordero MD (vice president of software development). ACR TI-RADS recommendations TR5 (>=7 points) (risk [...] THOMPSON on 07/16/2020 2:44 PM. Kristen Graf APRN-CODE AND TEST CLERK US ORDERABLES * MRI THORACIC SPINE WO CONTRAST (05/25/2020 10:32 AM PROPERTY DAMAGE CLAIMS ADJUSTOR) Anatomical Region Laterality Modality Chest Magnetic Resonan ce 05/25/2020 12:2 1 PM PROPERTY DAMAGE CLAIMS ADJUSTOR Impressions 05/25/2020 1:49 PM PROPERTY DAMAGE CLAIMS ADJUSTOR IMPRESSION: 1. No acute fracture, marrow edema [...] 1:49 PM . Narrative 05/25/2020 1:49 PM PROPERTY DAMAGE CLAIMS ADJUSTOR EXAMINATION: 1. MRI OF THE CERVICAL SPINE [...] normal. A small perineural cyst in the [id number] neural foramen is visible. L2-L3: The combination [...] LUMBAR SPINE WO CONTRAST (05/25/2020 10:32 AM PROPERTY DAMAGE CLAIMS ADJUSTOR) Anatomical Region Laterality Modality Spine Magnetic Resonan ce 05/25/2020 12:2 1 PM PROPERTY DAMAGE CLAIMS ADJUSTOR Impressions 05/25/2020 1:49 PM PROPERTY DAMAGE CLAIMS ADJUSTOR IMPRESSION: 1. No acute fracture, marrow edema [...] 1:49 PM . Narrative 05/25/2020 1:49 PM PROPERTY DAMAGE CLAIMS ADJUSTOR EXAMINATION: 1. MRI OF THE CERVICAL SPINE [...] neural impingement is identified. Procedure Note Artie Dcikens MD - 05/25/2020 EXAMINATION: 1. MRI OF [...] normal. A small perineural cyst in the [id number] neural foramen is visible. L2-L3: The combination [...] CERVICAL SPINE WO CONTRAST (05/25/2020 10:32 AM PROPERTY DAMAGE CLAIMS ADJUSTOR) Anatomical Region Laterality Modality Pelvis Magnetic Resonan ce 05/25/2020 12:2 1 PM PROPERTY DAMAGE CLAIMS ADJUSTOR Impressions 05/25/2020 1:49 PM PROPERTY DAMAGE CLAIMS ADJUSTOR IMPRESSION: 1. No acute fracture, marrow edema [...] 1:49 PM . Narrative 05/25/2020 1:49 PM PROPERTY DAMAGE CLAIMS ADJUSTOR EXAMINATION: 1. MRI OF THE CERVICAL SPINE [...] normal. A small perineural cyst in the [id number] neural foramen is visible. L2-L3: The combination [...] ENTIRE 2 OR 3VW (05/20/2020 1:20 PM PROPERTY DAMAGE CLAIMS ADJUSTOR) Anatomical Region Laterality Modality Spine Radiographic Kathleen ging 05/20/2020 4:05 PM PROPERTY DAMAGE CLAIMS ADJUSTOR Impressions 05/20/2020 4:08 PM PROPERTY DAMAGE CLAIMS ADJUSTOR IMPRESSION: Thoracolumbar scoliosis with sagittal plane imbalance. This report was electronically signed by GIL BERNARD MD on 05/20/2020 4:08 PM . Narrative 05/20/2020 4:08 PM PROPERTY DAMAGE CLAIMS ADJUSTOR Exam: XR SPINE ENTIRE 2 VW History: [...] COMPLETE PFT W/WO BRONCHODILATOR (05/18/2020 10:49 AM PROPERTY DAMAGE CLAIMS ADJUSTOR) Impressions Reza Paul MD - 05/18/2020 10:49 AM PROPERTY DAMAGE CLAIMS ADJUSTOR [facility] DEPARTMENT OF PULMONARY, CRITICAL CARE, AND SLEEP [...] of Pulmonary, Critical Care and Sleep Medicine [facility] Pager: [phone] I have reviewed this study and agree with the interpretation by the Swimming Teacher. Reza Paul M.D. Deaf And Hard Of Hearing Teacher of Internal Medicine Division of Pulmonary, Critical Care and Sleep Medicine [facility] of Medicine Narrative Reza Paul MD - 05/18/2020 10:49 AM PROPERTY DAMAGE CLAIMS ADJUSTOR Maggie Paredes MD 05/20/2020 5:22 PM Marcelina Parisi MD RESPIRATORY THERAPY ORDERABLES * IMAGING RADIOLOGY XRAY RESULTS ORDER (05/12/2020 12:16 PM PROPERTY DAMAGE CLAIMS ADJUSTOR) Anatomical Region Laterality Modality Other Narrative 05/12/2020 12:16 PM PROPERTY DAMAGE CLAIMS ADJUSTOR Ordered by an unspecified provider. Scanned Document IMAGING * CBC W/O DIFFERENTIAL (05/12/2020 7:03 AM PROPERTY DAMAGE CLAIMS ADJUSTOR) Only the most recent of2 resultswithin the [...] 12.5 fL [facility] Comment: Test Performed at: [email or web address] [facility] [address] [place] [address] ENRICO WYNN DO,MPH 05/12/2020 7:03 AM PROPERTY DAMAGE CLAIMS ADJUSTOR 05/12/2020 7:04 AM PROPERTY DAMAGE CLAIMS ADJUSTOR Kristen AGUILAR LAB - HEMATOLOG Y ORDERABLES [facility] [address] [place] [address] Care Teams Bottle Caser Relationship Specialty Start Date End Date Kristen Graf APRN-CNP [address] [phone] PCP - General 05/24/21
--- OUTSIDE RECORDS SUMMARY | 2024-07-03 12:49 | XMS_ITS | Encounter Summary ---
Author Organization [facility] Health Address [address] [place] [address] Care Team Providers Care Skein Yarn Drier Name Role Phone Kristen Graf APRN-VENDOR MANAGER Primary Care Provider Reason for Visit * Reason Onset Date Comments Appointment 07/29/2022 Encounter Details Date Type Department Care Team (Late st Contact Info) Description 07/29/2022 Telephone [facility] [address] [place] [address] Dominic Hines MD [address] [place], [place] [phone] Appointment Social History Tobacco Use Types Packs/Day [...] st Contact Info) Description 07/19/2024 9:30 AM 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 Office Visit [facility] - Pulmonology [address] [place] [address], [place] [address] Jack Milian MD [address] [place] [address] 2[address] DIV OF PULM/[place] [address] 08/02/2024 9:30 AM CDT Office Visit [facility] - Geriatrics [address] [place] [address], [place] [address] Kristen Graf, MACHINE STAMPER-VENDOR MANAGER [address] [facility] [address] [place] [address] 08/20/2024 1:10 AM CDT Clinical Support [facility] - Cardiology [address] [facility], [address] [address] 10/10/2024 10:20 AM CDT Office Visit [facility] - Cardiology [facility], [address] [phone] Bharathi Higuera MD [address] [facility], [place] [address] [place] [address] 11/19/2024 1:10 AM CDT Clinical Support [facility] - Cardiology [address] [facility], [place] [address] [place] [phone] documented as of this encounter Visit Diagnoses Not on filedocumented in this encounter Care Teams Skein Yarn Drier Relationship Specialty Start Date End Date Kristen Graf, MACHINE STAMPER-VENDOR MANAGER [address] [phone] PCP - General 05/24/21 documented as of this encounter
--- OUTSIDE RECORDS SUMMARY | 2024-07-03 12:49 | XMS_ITS | Encounter Summary ---
Author Organization [facility] Health Address [address] [facility] [place] [address] Care Team Providers Care Dental Equipment Technician Name Role Phone Kristen Graf APRNMANAGER ENVIRONMENTAL Primary Care Provider Tracie Pritchett MD Primary Care Provider [phone] Krist[facility] Primary Care Provider Encounter Details Date Type Department Care Team (Late st Contact Info) Description 10/30/2020 Telephone [facility] [address] [place] [address] Ubaldo Salgado MD [address] [place] [address] Social History Tobacco Use Types Packs/Day Years [...] st Contact Info) Description 07/19/2024 9:30 AM 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 Office Visit [facility] - Pulmonology [address] [place] [address], [place] [address] Jack Milian MD [address] [place] [address] DIV OF PULM/[place] [address] 08/02/2024 9:30 AM CDT Office Visit [facility] - Geriatrics [address] [place] [address], [place] [phone] Kristen Graf, INDUSTRIAL PROPERTY APPRAISER-MANAGER ENVIRONMENTAL [facility] [phone] 08/20/2024 1:10 AM CDT Clinical Support [facility] - Cardiology [address] [facility], [address] [address] 10/10/2024 10:20 AM CDT Office Visit [facility] - Cardiology [address] [facility], [address] [address] Bharathi Higuera MD [address] [facility], [address] [address] 11/19/2024 1:10 AM CDT Clinical Support [facility] - Cardiology [facility] [facility], [address] [phone] documented as of this encounter Visit Diagnoses Not on filedocumented in this encounter Care Teams Dental Equipment Technician Relationship Specialty Start Date End Date Kristen Graf APRN-MANAGER ENVIRONMENTAL PCP - General 04/27/20 05/19/21 Tracie Pritchett MD [address] [address] PCP - General Internal Medicine Geriatric Medicine 05/20/21 05/23/21 Kristen Graf, JAYME-MANAGER ENVIRONMENTAL [address] [address] PCP - General 05/24/21 documented as of this encounter
--- OUTSIDE RECORDS SUMMARY | 2024-07-03 12:49 | XMS_ITS | Continuity of Care Document ---
Author Organization [facility] Address [address] [place] [address] Phone Care Team Providers Care Financial Investigator Name Role Phone Conversion MD, Doctor Unavailable Unavailabl e Advance Directives Directive Yes / No Effective Date File Name No Information Encounters Encounter Description Practice Location Reason(s) For Visit Diagnoses Date Provider Providers Copied on Encounter [facility], [address], [place], [place], [address] , tel: [phone] Conversion Department No Information 7 1 Conversion Doctor. [address] [place] [address], [id number], . [facility], [address], [place], [place], [address] , tel: [phone] [facility] GENERAL OSTEOARTHROSIS HYPERLIPIDEMIA NEC/NOSSCREEN MAL NEOP-RECTUM September- 0-200 7 Ramila Moss. [facility] [address], [place], [place], [address], . tel: [phone] [facility], [address], [place], [place], [address] , tel: [phone] Administration CHEST PAIN NECPURE HYPERCHOLESTER OLEM Dec-2 9-200 4 Ramila Moss. [id number], [address], [place], [place], [address], [place]. tel: [phone] [facility], [address], [place], [place], [address] , tel: [phone] [facility] CHEST PAIN NOS Dec-2 0-200 4 Ramila Moss. [id number], [address], [place], [place], [address], [place]. tel: [phone] [facility], [address], [place], [place], [address] , [place] tel: [phone] [facility] SCREEN-DIABETE S MELLITUSSYMPT FEM CLIMACT STATEASCVD Sep-2 3-200 3 Ramila Moss. [id number], [address], [place], [place], [address], [place]. tel: [phone] [facility], [address], [place], [place], [address] , [place] tel: [phone] [facility] ACUTE BRONCHITIS Sep-1 2-200 3 Ramila Moss. [facility] [address], [address], [place], [place], [address], [place]. tel: [phone] [facility], [address], [place], [place], [address] , [place] tel: [phone] [facility] BACKACHE NOS Mar- 8-200 1 Ramila Moss. [facility] [address], [address], [place], [place], [address], [place]. tel: [phone] [facility], [address], [place], [place], [address] , [place] tel: [phone] [facility] SCREEN MAL NEOP OTH SITE 6-200 0 Ramila Moss. [id number], [address], [place], [place], [address], [place]. tel: [phone] [facility], [address], [place], [place], [address] , [place] tel: [phone] [facility] PTOSIS OF EYELID NOSABDMNAL PAIN GENERALIZED September- 2-200 0 Ramila Moss. [id number], [address], [place], [place], [address], [place]. tel: [phone] [facility], [address], [place], [place], [address] , [place] tel: [phone] [facility] GENERAL MEDICAL EXAM NOSPALPITATION S 1-199 9 Ramila Moss. [id number], [place], [place], [address], [place]. tel: [phone] Family History Family Member Type Diagnosis Age At Onset No Information Payers Payer name Insurance type Covered constitution party ID Authoriza tion(s) No Information Social [...]
--- OUTSIDE RECORDS SUMMARY | 2024-07-03 12:49 | XMS_ITS | Encounter Summary ---
Author Organization [facility] Address [address] [place] [address] Care Team Providers Care Silk Screen Operator Name Role Phone Minh Thornton MD Primary Care Provider [phone] Encounter Details Date Type Department Care Team (Late st Contact Info) Description 07/02/2024 External Device Data [place] ABSTRACTION Provider, Abstract NO ADDRESS ON FILE Social History Tobacco Use Types Packs/Day Years Used Date Smoking Tobacco: Never Smokeless Tobacco: Never Alcohol Use Standard Drinks/Week Comments No 0 (1 standard drink = 0.6 oz pur e alcohol) Comments No Sex and Gender Information Value Date Recorded Sex Assigned at Not on file Legal Sex Female 3:34 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
[2024-07-03 12:54] LABS: Alanine Aminotransferase 32 U/L (6-35); Albumin Level 3.2 g/dL (3.5-5.1); Alkaline Phosphatase 213 U/L (38-126); Anion Gap 7 mmol/L (4-12); Aspartate Amino Transferase 32 U/L (14-36); Bilirubin,Total 1.1 mg/dL (0.2-1.3); Blood Urea Nitrogen 11 mg/dL (7-17); Calcium 8.4 mg/dL (8.4-10.2); Carbon Dioxide 28 mmol/L (22-30); Chloride 81 mmol/L (98-107); Estimated CRCL calculation 83 ml/min; Estimated Glomerular Filt Rate > 60; Glucose 142 mg/dL (65-110); Lipase 26 U/L (23-300); Potassium 4.9 mmol/L (3.4-5.0); Sodium 116 mmol/L (137-145)
[2024-07-03 12:55] LABS: Troponin I < 0.012 ng/mL (0.000-0.034)
[2024-07-03 13:07] LABS: INR 1.9
[2024-07-03 13:08] LABS: Partial Thromboplastin Time 44.4 Seconds (22.3-36.8)
--- NOTE | 2024-07-03 13:25 | ED_ITS ---
HPI - SOB/Dyspnea General Chief Complaint: Shortness of Breath/Dyspnea Stated Complaint: COVID+, hypoxic Time Seen by Provider: 07/03/24 12:20 History of Present Illness HPI Narrative: Patient is an 83-year-old female who presents ER with shortness of breath. Patient found to be hypoxic. She has been fighting a cough and dyspnea for about 10 days. One week ago she was diagnosed with COVID. She reports new edema in her legs today. She has been sleepy being sitting up because she is not comfortable lying down. No chest pain or chest pressure. Has history of low sodium. No additional complaints at this time. Related Data Home Medications ?Medication ?Instructions ?Recorded ?Confirmed ?Last Taken ?Type cholecalciferol (vitamin D3) 25 1,000 unit PO DAILY 01/13/20 02/13/24 03/26/21 History mcg (1,000 unit) capsule guaifenesin 600 mg tablet, 600 mg PO DAILY PRN Congestion 03/26/21 02/13/24 Unknown History extended release 12 hr (Mucinex) hydralazine 50 mg tablet 50 mg PO QPM PRN Hypertension 03/26/21 02/13/24 Unknown History polyethylene glycol 3350 17 17 g PO DAILY PRN Constipation 03/26/21 02/13/24 Unknown History gram/dose oral powder (Miralax) rivaroxaban 15 mg tablet (Xarelto) 15 mg PO QPM 04/27/21 02/13/24 Unknown History buspirone 10 mg tablet 20 mg PO 0830,1330,1930 01/11/22 02/13/24 Unknown History carvedilol 25 mg tablet (Coreg) 12.5 mg PO Q12H 11/08/23 02/13/24 Unknown History cyclosporine 0.05 % eye drops 1 drp EACH EYE Q12H 11/08/23 02/13/24 Unknown History (Restasis MultiDose) flecainide 150 mg tablet 150 mg PO Q12H 11/08/23 02/13/24 Unknown History ketoconazole 2 % topical cream 1 applic topical BID 11/08/23 02/13/24 Unknown History losartan 25 mg tablet 25 mg PO DAILY 11/08/23 02/13/24 Unknown History pimecrolimus 1 % topical cream 1 applic topical BID 11/08/23 02/13/24 Unknown History spironolactone 25 mg tablet 12.5 mg PO DAILY 11/08/23 02/13/24 Unknown History (Aldactone) triamcinolone acetonide 0.1 % 1 applic topical BID 11/08/23 02/13/24 Unknown History topical cream Allergies Allergy/AdvReac Type Severity Reaction Status Date / Time monosodium glutamate AdvReac Unknown Fatigued Verified 02/13/24 15:09 Review of Systems 2 Review of Systems: All systems reviewed & are unremarkable except as noted in HPI and below Constitutional: Constitutional: Reports no additional constitutional complaints Cardiovascular: Cardiovascular: Reports no additional cardiovascular complaints Respiratory: Respiratory: Reports no additional respiratory complaints Gastrointestinal: Gastrointestinal: Reports no additional gastrointestinal complaints Musculoskeletal: Musculoskeletal: Reports no additional musculoskeletal complaints [facility] Past Medical History Medical History Pacemaker Chronic anticoagulation Anxiety Chronic obstructive pulmonary disease Related to significant secondhand smoke exposure. Dyslipidemia Left carotid bruit Unremarkable carotid Doppler ultrasounds on 09/09/2019. TIA (transient ischemic attack) At the age of 29, attributed to oral contraceptives. Eczema Paroxysmal atrial fibrillation Paroxysmal atrial fibrillation/atrial flutter. Maintained on flecainide, carvedilol, and rivaroxaban. Patient of Dr. Bharathi Higuera at [facility]. Hypertension Headache, migraine Arthritis Surgical History Surgical History H/O cardiac radiofrequency ablation History of tubal ligation History of tonsillectomy History of appendectomy History of ventral hernia repair History of uterine suspension procedure History of eyelid surgery Family History Family History Mother Family history of kidney disease Family history of elevated blood lipids Acute myocardial infarction, Onset Age: 93 Family history of liver disease, Onset Age: 93 Family history of congestive heart failure Family history of chronic obstructive pulmonary disease Family history of renal failure, Onset Age: 93 Father Family history of migraine headaches Hypertension Grandparent Cerebrovascular accident Other Family history of cardiovascular disease Family history of malignant neoplasm Social History Social History Social History: The patient is and lives with her in [place]. They have 2 children. 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 She is a lifelong nonsmoker but reports significant secondhand smoke exposure. No alcohol or drug abuse. She designates her Alcides Aaron as her surrogate decision maker and she wishes to be a full code. Smoking status: Never smoker Second hand tobacco smoke exposure: Yes Alcohol intake: former Substance use: never Spiritual care concerns: Yes (Church) Exam 2 Narrative: GENERAL: Ill-appearing, well-nourished, and in no acute distress. HEAD: Normocephalic, atraumatic. EYES: PERRL and EOMI. CHEST: Diffuse crackles. No respiratory distress. HEART: Regular rate and rhythm. Normal peripheral pulses. ABDOMEN: Soft, nontender, nondistended. EXTREMITIES: Normal range of motion. 2+ edema. SKIN: Warm, dry, no rash. NEURO: Alert and oriented x3. PSYCH: Normal mood and affect. Course Course Emergency Course: Admit to hospitalist service. Will fluid restrict and diurese. IV antibiotics ordered in case there is underlying pneumonia combined with but is clinically fluid overload. Mild leukocytosis and elevated BNP. Vital Signs Vital signs: Vital Signs Temperature 97.7 F 07/03/24 12:04 Pulse Rate 73 07/03/24 12:04 Respiratory Rate 17 07/03/24 12:04 Blood Pressure 179/80 H 07/03/24 12:04 Pulse Oximetry 97 07/03/24 12:04 Oxygen Delivery Nasal Cannula 07/03/24 12:04 Oxygen Flow Rate 2 07/03/24 12:04 Temperature 97.7 F 07/03/24 12:04 Pulse Rate 60 07/03/24 13:47 Respiratory Rate 16 07/03/24 13:47 Blood Pressure 137/65 07/03/24 13:47 Pulse Oximetry 95 07/03/24 14:06 Oxygen Delivery Nasal Cannula 07/03/24 14:06 Oxygen Flow Rate 3 07/03/24 14:06 MDM - SOB/Dyspnea Lab Data 07/03/24 12:28 07/03/24 12:28 Labs: Lab Results 07/03/24 Range/Units 12:28 WBC 16.0 H (4.5-10.0) K/mm3 RBC 3.49 L (4.2-5.4) M/mm3 Hgb 10.9 L (12.0-15.0) g/dL Hct 31.6 L (37.0-47.0) % MCV 90.5 (80-100) fl MCH 31.2 (26-34) pg MCHC 34.5 (32-36) g/dl RDW 13.1 (11.5-14.5) % Plt Count 360 D (150-375) k/mm3 MPV 8.5 (7.4-10.4) fl Immature Gran % (Auto) 1.1 H (0-0.5) % Neut % (Auto) 78.3 H (45.5-73.1) % Lymph % (Auto) 7.0 L (18.3-44.2) % Bay % (Auto) 12.4 H (2.6-8.5) % Eos % (Auto) 1.0 (0-4.4) % Baso % (Auto) 0.2 (0.2-1.2) % Lymph # (Auto) 1.12 (0.9-3.2) K/mm3 Bay # (Auto) 2.0 H (0.1-0.6) K/mm3 Eos # (Auto) 0.2 (0-0.3) K/mm3 Baso # (Auto) 0.0 (0.0-0.1) K/mm3 Abs Immat Gran (auto) 0.17 H (0.00-0.031) K/mm3 Absolute Neuts (auto) 12.5 H (1.3-6.7) K/mm3 Absolute Nucleated RBC 0.000 (0.0-0.012) K/mm3 Nucleated RBC % 0.0 (0.0-0.2) % PT 22.0 H (11.1-14.7) Seconds INR 1.9 APTT 44.4 H (22.3-36.8) Seconds Sodium 116 L* (137-145) mmol/L Potassium 4.9 (3.4-5.0) mmol/L Chloride 81 L (98-107) mmol/L Carbon Dioxide 28 (22-30) mmol/L Anion Gap 7 (4-12) mmol/L BUN 11 D (7-17) mg/dL Creatinine 0.46 L (0.7-1.0) mg/dL Estim Creat Clear Calc 83 ml/min Estimated GFR > 60 (59 - ) Glucose 142 H (65-110) mg/dL Calcium 8.4 (8.4-10.2) mg/dL Total Bilirubin 1.1 (0.2-1.3) mg/dL AST 32 (14-36) U/L ALT 32 (6-35) U/L Alkaline Phosphatase 213 H (38-126) U/L Troponin I < 0.012 (0.000-0.034) ng/mL NT-Pro-B Natriuret Pep 1120 H (19.9-100) pg/mL Total Protein 7.0 (6.3-8.2) g/dL Albumin 3.2 L (3.5-5.1) g/dL Lipase 26 (23-300) U/L Imaging Data Radiologist's impression: ITS Impressions Chest X-Ray 07/03/24 12:53 Impression: 1: Significant progression of bilateral airspace disease, consistent with pneumonia. Pulmonary edema is the differential diagnosis. ECG Data EKG #1: ECG completion date: 07/03/24 ECG completion time: 12:16 EKG Interpretation: not applicable (Atrial paced), widened QRS, RBBB and prolonged QT Critical Care Time Critical Care Time Critical Care Time: Yes Total Critical Care Time: 35 Discharge Plan Discharge Clinical Impression: Acute hyponatremia, Hypoxia, Pulmonary edema, Pneumonia Patient Disposition: Still a Patient Condition: Stable Patient Language: Spanish Prescriptions: No Action cholecalciferol (vitamin D3) 25 mcg (1,000 unit) capsule 1,000 unit PO DAILY carvedilol [Coreg] 25 mg tablet 12.5 mg PO Q12H Rx Instructions: must administer with a meal/food flecainide 150 mg tablet 150 mg PO Q12H ketoconazole 2 % cream 1 applic topical BID losartan 25 mg tablet 25 mg PO DAILY pimecrolimus 1 % cream 1 applic topical BID spironolactone [Aldactone] 25 mg tablet 12.5 mg PO DAILY triamcinolone acetonide 0.1 % cream 1 applic topical BID Restasis MultiDose 0.05 % drops 1 drp EACH EYE Q12H mupirocin 2 % ointment 1 applic topical .COMPLEX Qty: 22 1RF Rx Instructions: 3-4x per day for two weeks then 1-2 times per day famotidine 20 mg Tablet 20 mg PO Q12HR Qty: 60 0RF Xarelto 15 mg tablet 15 mg PO QPM buspirone 10 mg tablet 20 mg PO 0830,1330,1930 hydralazine 50 mg tablet 50 mg PO QPM PRN (Reason: Hypertension) polyethylene glycol 3350 [Miralax] 17 gram/dose powder 17 g PO DAILY PRN (Reason: Constipation) guaifenesin [Mucinex] 600 mg Tablet Extended Release 12hr 600 mg PO DAILY PRN (Reason: Congestion) benzonatate 200 mg capsule 200 mg PO TID PRN (Reason: cough) Qty: 15 0RF ondansetron 4 mg tablet,disintegrating 4 mg PO Q8H PRN (Reason: nausea and vomiting) Qty: 15 0RF ipratropium bromide 21 mcg (0.03 %) spray,non-aerosol 2 spray intranasal .COMPLEX Qty: 90 1RF Rx Instructions: 2 sprays intranasally; administer into each nostril. Aim back/up/out. Up to 3 times per day Follow-up/Referrals: UNKNOWN,DOCTOR [Primary Care Provider] -
[2024-07-03 13:38] LABS: NT Pro B Type Natriuretic Pept 1120 pg/mL (19.9-100)
--- NOTE | 2024-07-03 14:20 | P.HP_ITS ---
H&P: HPI History of Present Illness Date/Time: 07/03/24 14:20 Chief Complaint: Shortness of breath. Narrative: This is a very pleasant 83-year-old female with paroxysmal atrial fibrillation, diastolic dysfunction, hypertension, chronic obstructive pulmonary disease reportedly due to significant secondhand smoke exposure, chronic hyponatremia, and anxiety presented to the emergency department for evaluation of shortness of breath. She has not been feeling well for upwards of 10 days and she tested positive for COVID about 1 week ago. Unfortunately she is not feeling any better and she continues to have an intermittently productive cough and shortness of breath. Over the last several days she has developed lower extremity edema and orthopnea. She denies fever, chest pain, pleuritic pain, palpitations, nausea, vomiting, calf pain, syncope, and near syncope. In the ED: She was afebrile on arrival with an SpO2 of 94% on 2 L. labs are significant for WBC count 16.0, hemoglobin 10.9, sodium 116, chloride 81, BUN 11, creatinine 0.46, glucose 142, proBNP 1120, troponin less than 0.012. Chest x-ray shows significant progression of bilateral airspace disease consistent with pneumonia with pulmonary embolism in the differential diagnoses. She was started on azithromycin and ceftriaxone received furosemide 40 mg IV. She is being admitted in this setting for further treatment and evaluation. Review of Systems Review of Systems: 12 systems were reviewed and are negativ e except for as per HPI. [facility] Past Medical History Medical History Diastolic dysfunction Transient ischemic attack At the age of 29, attributed to oral contraceptives. Chronic anticoagulation Anxiety Chronic obstructive pulmonary disease Related to significant secondhand smoke exposure. Dyslipidemia Left carotid bruit Unremarkable carotid Doppler ultrasounds on 09/09/2019. Eczema Paroxysmal atrial fibrillation Paroxysmal atrial fibrillation/atrial flutter. Maintained on flecainide, carvedilol, and rivaroxaban. Patient of Dr. Bharathi Higuera at [facility]. Hypertension Headache, migraine Arthritis Surgical History Surgical History History of permanent cardiac pacemaker placement History of cardiac radiofrequency ablation History of tubal ligation History of tonsillectomy History of appendectomy History of ventral hernia repair History of uterine suspension procedure History of eyelid surgery Family History Family History Mother Family history of kidney disease Family history of elevated blood lipids Acute myocardial infarction, Onset Age: 93 Family history of liver disease, Onset Age: 93 Family history of congestive heart failure Family history of chronic obstructive pulmonary disease Family history of renal failure, Onset Age: 93 Father Family history of migraine headaches Hypertension Grandparent Cerebrovascular accident Other Family history of cardiovascular disease Social History Social History Social History: Surrogate medical decision maker: Alcides Aaron, spouse. Code status: Full code. Smoking status: Never smoker Second hand tobacco smoke exposure: Yes Alcohol intake: never Substance use: never Substance use type: does not use Do You Feel Safe in your Home?: Yes Lack of Transportation: No Lack of Food: Never True Current Housing: I Have Housing Concerned About Future Housing: No Difficulty Paying Gas/Electric Bills: No Difficulty Paying for Meds: No Currently Unemployed: No Education: Bachelor's Degree Difficulty w/ Childcare or Family Care: No Additional living arrangements comments: . Lives with spouse in [place]. They have 2 children. 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 Spiritual care concerns: No Meds Home Medications and Allergies Home Medications ?Medication ?Instructions ?Recorded ?Confirmed ?Type cholecalciferol (vitamin D3) 25 1,000 unit PO DAILY 01/13/20 02/13/24 History mcg (1,000 unit) capsule famotidine 20 mg tablet 20 mg PO Q12HR #60 tabs 01/09/21 07/03/24 Rx hydralazine 50 mg tablet 50 mg PO QPM PRN Hypertension 03/26/21 07/03/24 History rivaroxaban 15 mg tablet (Xarelto) 15 mg PO QPM 04/27/21 07/03/24 History buspirone 10 mg tablet 20 mg PO 0830,1330,1930 01/11/22 07/03/24 History carvedilol 25 mg tablet (Coreg) 12.5 mg PO Q12H 11/08/23 07/03/24 History cyclosporine 0.05 % eye drops 1 drp EACH EYE Q12H 11/08/23 07/03/24 History (Restasis MultiDose) flecainide 150 mg tablet 150 mg PO Q12H 11/08/23 07/03/24 History ketoconazole 2 % topical cream 1 applic topical BID 11/08/23 07/03/24 History losartan 25 mg tablet 25 mg PO DAILY 11/08/23 07/03/24 History Allergies Allergy/AdvReac Type Severity Reaction Status Date / Time monosodium glutamate AdvReac Unknown Fatigued Verified 07/03/24 15:02 Vital Signs Vital Signs - 24 hr 07/03/24 12:04 07/03/24 13:47 07/03/24 14:06 Temperature 97.7 F Pulse Rate 73 60 Respiratory Rate 17 16 Blood Pressure 179/80 H 137/65 Pulse Oximetry 97 96 95 Oxygen Delivery Nasal Cannula Nasal Cannula Oxygen Flow Rate 2 3 Exam Narrative: General: Well-developed elderly female in the semi-North position in bed in no distress. Weight: 79.2 kg. BMI: 28.2. HEENT: Normocephalic, atraumatic. PERRL, EOMI. Sclerae anicteric. Oral mucosa moist. Neck: Supple. No significant jugular venous distention. Respiratory: Respirations are nonlabored and she is speaking in full sentences. Currently on 2 L nasal cannula. Lung sounds are coarse and crackly throughout with occasional wheezing. 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 Cardiovascular: Regular rate and rhythm. Soft murmur at the upper sternal border. Gastrointestinal: Abdomen is soft and nondistended with positive bowel sounds. Bladder feels distended and a Tolbert catheter was placed yielding 1000 mL of urine within a short period of time. Skin: Warm and dry. Generalized pallor. Extremities: No cyanosis or clubbing. 2+ bilateral lower extremity edema to the knees. No palpable knots or cords. Neurological: Alert. Cranial nerves 2-12 are grossly intact. No gross focal deficits to casual conversation. Psychiatric: Pleasant and cooperative with appropriate mood and affect. H&P: Results Labs Labs: Short CBC 07/03/24 Range/Units 12:28 WBC 16.0 H (4.5-10.0) K/mm3 Hgb 10.9 L (12.0-15.0) g/dL Hct 31.6 L (37.0-47.0) % Plt Count 360 D (150-375) k/mm3 [facility] 07/03/24 12:28 Sodium 116 L* Potassium 4.9 Chloride 81 L Carbon Dioxide 28 BUN 11 D Creatinine 0.46 L Glucose 142 H Calcium 8.4 Cardiac Enzymes 07/03/24 Range/Units 12:28 Troponin I < 0.012 (0.000-0.034) ng/mL Liver Function 07/03/24 Range/Units 12:28 Total Bilirubin 1.1 (0.2-1.3) mg/dL AST 32 (14-36) U/L ALT 32 (6-35) U/L Alkaline Phosphatase 213 H (38-126) U/L Albumin 3.2 L (3.5-5.1) g/dL Imaging Chest X-Ray 07/03/24 12:53 Impression: 1: Significant progression of bilateral airspace disease, consistent with pneumonia. Pulmonary edema is the differential diagnosis. Assessment and Plan Assessment and plan (1) Acute respiratory failure with hypoxia: Code(s): J96.01 - Acute respiratory failure with hypoxia Status: Acute (2) Pneumonia: Code(s): J18.9 - Pneumonia, unspecified organism Status: Acute (3) Heart failure of unknown type: Code(s): I50.9 - Heart failure, unspecified Status: Acute (4) Urinary retention: Code(s): R33.9 - Retention of urine, unspecified Status: Acute (5) Hyponatremia: Code(s): E87.1 - Hypo-osmolality and hyponatremia Status: Acute (6) Hyperglycemia: Code(s): R73.9 - Hyperglycemia, unspecified Status: Acute (7) Paroxysmal atrial fibrillation: Code(s): I48.0 - Paroxysmal atrial fibrillation Status: Chronic (8) Chronic anticoagulation: Code(s): Z79.01 - intermediate (current) use of anticoagulants Status: Acute (9) Chronic obstructive pulmonary disease: Code(s): J44.9 - Chronic obstructive pulmonary disease, unspecified Status: Acute (10) Hypertension: Qualifiers: Hypertension type: unspecified Qualified Code(s): I10 - Essential (primary) hypertension Code(s): I10 - Essential (primary) hypertension Status: Acute (11) Anxiety: Code(s): F41.9 - Anxiety disorder, unspecified Status: Acute Plan The patient presented to the emergency department for evaluation of cough and shortness of breath after being diagnosed with COVID about a week ago as detailed in HPI. Labs, imaging, EKG, and all reports were personally reviewed. She was hypoxic on arrival and is currently on 2 L nasal cannula. Chest x-ray shows pretty significant bilateral pulmonary opacities which could reflect pneumonia and/or pulmonary edema but is likely a combination of both. She has been started on empiric antibiotics given her elevated WBC count. She has also been started on remdesivir and dexamethasone. Additionally she has pretty significant lower extremity edema and there is likely a component of congestive heart failure as well thus will continue with cautious IV diuresis with close monitoring of volume status, renal function, and electrolytes. Worsening sodium is likely due to a combination of volume overloaded possible pneumonia seen on imaging. Continue fluid restriction and Lasix with close monitoring of sodium. Tolbert catheter inserted due to urinary retention; 1000 mL of urine was yielded after the catheter was placed. Blood pressures were reviewed and they are stable. No acute issues with regards to COPD. Check hemoglobin A1c and fasting glucose given elevated random glucose. Her home medications will be reviewed and resumed as appropriate. Findings and treatment plan were discussed with the patient. Questions were solicited and answered to satisfaction. The patient's medical management will be taken over by the hospitalist team in a.m. Quality VTE Prophylaxis VTE prophylaxis: pharmacologic ordered (on rivaroxaban) Hospitalist [facility] Advance Care Plan I have confirmed that the patient's Advanced Care Plan is present, code status is documented, or surrogate decision maker is listed in patient medical record.: Yes Medication Reconciliation I have utilized all available resources to obtain, update and review the p atients current medications (includes all prescriptions, OTC, herbals, cannabis, and nutritional supplements).: Yes
[2024-07-03] MEDS: FUROSEMIDE INJ 40 MG/4 ML VIAL IV PUSH ×2 (14:45→23:43)
[2024-07-03 15:07] LABS: Lactic Acid Reflex 1.4 mmol/L (0.7-2.0)
--- NOTE | 2024-07-03 15:26 | ECG_ITS ---
Test Date: 2024-07-03 15:36:48 Measurements Intervals [place] Rate: 59 P: -70 TX: 299 QRS: -72 QRSD: 150 T: 81 QT: 492 QTc: 491 Interpretive Statements ELECTRONIC ATRIAL PACEMAKER RIGHT BUNDLE BRANCH BLOCK LEFT ANTERIOR FASCICULAR BLOCK CANNOT R/O SEPTAL INFARCT, AGE INDETERMINATE BASELINE ARTIFACT- I, III, AVR, AVL ABNORMAL ECG Compared to ECG 07/03/2024 12:16:47 HEART RATE HAS DECREASED Electronically Signed On 07-03-2024 15:39:48 FUNERAL ARRANGEMENT DIRECTOR by Garrison Stewart D.O.
[2024-07-03] MEDS: AZITHROMYCIN 500 MG/NS 250 ML 500 MG/250 ML BAG 250 MG IVPB (15:27)
[2024-07-03 16:16] LABS: Troponin I < 0.012 ng/mL (0.000-0.034)
--- NOTE | 2024-07-03 16:24 | PC.NURSE ---
This RN noticed that patient has not urinated since getting lasix. Bladder scanner used and found >500mL of urine in her bladder. Provider Margareth gave verbal order for herrera catheter
[2024-07-03 16:30] LABS: Influenza A QL RT-PCR Negative (Negative); Influenza B QL RT-PCR Negative (Negative); RSV RNA, RT-PCR Negative (Negative); SARS-CoV-2 RNA PCR Positive (Negative)
[2024-07-03 18:17] LABS: Magnesium 1.7 mg/dL (1.6-2.3)
[2024-07-03 18:22] LABS: Anion Gap 10 mmol/L (4-12); Blood Urea Nitrogen 12 mg/dL (7-17); Calcium 8.3 mg/dL (8.4-10.2); Carbon Dioxide 25 mmol/L (22-30); Chloride 82 mmol/L (98-107); Estimated CRCL calculation 77 ml/min; Estimated Glomerular Filt Rate > 60; Glucose 160 mg/dL (65-110); Sodium 117 mmol/L (137-145)
[2024-07-03 19:25] LABS: Troponin I < 0.012 ng/mL (0.000-0.034)
[2024-07-03 20:35] LABS: Creatinine Urine 11.3 mg/dL
[2024-07-03 20:37] LABS: Sodium Urine Random 90 meq/L
[2024-07-03 20:45] LABS: MRSA (PCR) NOT DETECTED (NOT DETECTE)
--- NOTE | 2024-07-03 21:58 | ADMGEN ---
This patient, Beth Aaron, was admitted to IMU Room 231-01. Patient/family oriented to hospital policies and general routines including ID bracelet, bed and alarms, visiting hours, pain management, procedures, bathroom and other care routines, personal items, smoking policy, room service/diet, and visiting hours. Information on how to activate the Rapid Response Team has been discussed. Patient/Family are encouraged to report perceived risks to care and to ask questions if they do not understand what they are told or what they should do.
[2024-07-03] MEDS: HYDROcodone/acetaminophen (*CRX) 5-325 MG TABLET 1 TAB PO (22:56)
[2024-07-03 23:02] LABS: Sodium 117 mmol/L (137-145)
[2024-07-03 23:11] LABS: Urea Random Urine 119 MG/DL
[2024-07-03] MEDS: FLECAINIDE ACETATE 50 MG TABLET 150 MG PO (23:43)
[2024-07-03] MEDS: RIVAROXABAN 15 MG TABLET PO (23:44)
[2024-07-03] MEDS: cycloSPORINE 0.4 ML OPHTH SOLUTION 1 DROP EACH EYE (23:44)
[2024-07-03] MEDS: carvediloL 12.5 MG TABLET PO (23:44)
[2024-07-03] MEDS: REMDESIVIR 200 MG/NS 250 ML 200 MG/250 ML BAG 250 MG IVPB (23:44)
[2024-07-04] VITALS (22 sets, daily range): BP systolic 103–120; BP diastolic 41–55; PULSE 59–65; RESP 18–22; TEMP 36.3–37; O2SAT 91–98
[2024-07-04 01:17] LABS: MRSA (PCR) NOT DETECTED (NOT DETECTE)
[2024-07-04 04:12] LABS: Basophils Percent Auto 0.1 % (0.2-1.2); Eosinophils Absolute Auto 0.2 K/mm3 (0-0.3); Eosinophils Percent Auto 1.3 % (0-4.4); Hematocrit 27.4 % (37.0-47.0); Hemoglobin 9.4 g/dL (12.0-15.0); Immature Granulocyte Absolute 0.11 K/mm3 (0.00-0.031); Immature Granulocyte Percent A 0.8 % (0-0.5); Lymphocytes Absolute Auto 1.23 K/mm3 (0.9-3.2); Lymphocytes Percent Auto 8.8 % (18.3-44.2); Mean Corpuscular HGB Conc 34.3 g/dl (32-36); Mean Corpuscular Hemoglobin 30.7 pg (26-34); Mean Corpuscular Volume 89.5 fl (80-100); Mean Platelet Volume 8.3 fl (7.4-10.4); Monocytes Absolute Auto 1.7 K/mm3 (0.1-0.6); Monocytes Percent Auto 12.4 % (2.6-8.5); Neutrophils Absolute Auto 10.7 K/mm3 (1.3-6.7); Neutrophils Percent Auto 76.6 % (45.5-73.1); Platelet Count Result 315 k/mm3 (150-375); Red Blood Count 3.06 M/mm3 (4.2-5.4); Red Cell Distribution Width 13.1 % (11.5-14.5); White Blood Count 13.9 K/mm3 (4.5-10.0)
[2024-07-04 04:28] LABS: Anion Gap 3 mmol/L (4-12); Blood Urea Nitrogen 10 mg/dL (7-17); Carbon Dioxide 32 mmol/L (22-30); Chloride 84 mmol/L (98-107); Estimated CRCL calculation 67 ml/min; Estimated Glomerular Filt Rate > 60; Glucose 98 mg/dL (65-110); Potassium 4.4 mmol/L (3.4-5.0); Sodium 119 mmol/L (137-145)
[2024-07-04 04:33] LABS: Lactate Dehydrogenase 200 U/L (120-246)
[2024-07-04 04:39] LABS: CRP 16.9 mg/dL (<1.0)
[2024-07-04 07:15] LABS: Sodium 119 mmol/L (137-145)
[2024-07-04] MEDS: dexAMETHasone 2 MG TABLET 6 MG PO (08:21)
[2024-07-04] MEDS: LOSARTAN POTASSIUM 25 MG TABLET PO (08:21)
[2024-07-04] MEDS: CHOLECALCIFEROL 1,000 UNITS TABLET 1000 UNITS PO (08:22)
[2024-07-04] MEDS: carvediloL 12.5 MG TABLET PO ×2 (08:23→20:15)
[2024-07-04] MEDS: busPIRone HCL 10 MG TABLET 20 MG PO ×3 (08:24→20:15)
[2024-07-04] MEDS: cycloSPORINE 0.4 ML OPHTH SOLUTION 1 DROP EACH EYE ×2 (08:25→20:15)
[2024-07-04] MEDS: FAMOTIDINE 20 MG TABLET PO ×2 (08:25→20:15)
[2024-07-04] MEDS: FLECAINIDE ACETATE 50 MG TABLET 150 MG PO ×2 (08:25→20:15)
[2024-07-04] MEDS: FUROSEMIDE INJ 40 MG/4 ML VIAL IV PUSH (08:26)
[2024-07-04 08:52] LABS: Iron 21 ug/dL (37-170)
[2024-07-04 09:01] LABS: Percent Iron Saturation 9 % (20-50)
[2024-07-04] MEDS: guaiFENesin 12 HR 600 MG TABCR 1200 MG PO ×2 (12:00→20:15)
[2024-07-04 12:21] LABS: Sodium 122 mmol/L (137-145)
[2024-07-04] MEDS: AZITHROMYCIN 500 MG/NS 250 ML 500 MG/250 ML BAG 250 MG IVPB (14:43)
--- NOTE | 2024-07-04 14:55 | ECHO_ITS ---
Patient Info Name: Beth Aaron Age: 83 years : 1940 Gender: Female Ht: 66 in Wt: 182 lbs BSA: 1.98 m2 HR: 60 bpm BP: 111 / 51 mmHg Technical Quality: Fair Exam Date: 07/04/2024 10:45 AM Exam Location: Echo Lab Patient Status: Inpatient Admit Date: 07/03/2024 Staff Ordering Physician: Margareth Navarro PA-C Wire Sawyer: [place] RDCS Attending Provider: Scarlett Zapien MD Referring Physician: Melanie TRUJILLO; Exam Type: CA echo doppler color flow Study Info Indications - PULMONARY EDEMA - PAFIB - CHF Complete two-dimensional, color flow and Doppler transthoracic echocardiogram is performed. Summary 1. Complete two-dimensional, color flow and Doppler transthoracic echocardiogram is performed. 2. There is normal biventricular size and systolic function. 3. There is moderate concentric left ventricular hypertrophy. 4. There is no significant valvular disease. Left Ventricle The left ventricle is normal in size and systolic function. There is moderate concentric left ventricular hypertrophy. The left ventricular ejection fraction is visually estimated to be 60-65%. Right Ventricle The right ventricle is normal in size and systolic function. Linear artifact in right ventricle suggestive of catheter(s), pacemaker lead(s), or ICD lead(s). Left Atria The left atrium is normal size. Right Atria The right atrium is normal size. Atrial Septum The atrial septum is not well visualized. Aortic Valve There is no aortic stenosis or significant aortic regurgitation. Pulmonic Valve The pulmonic valve is not well visualized. There is no color Doppler evidence of pulmonic regurgitation. Mitral Valve The mitral valve is normal. There is mild mitral regurgitation. Tricuspid Valve The tricuspid valve is normal. There is mild tricuspid regurgitation. Pericardium/Pleural Moderate left pleural effusion. There is trace amount of pericardial effusion. Inferior Vena Cava Normal inferior vena cava with >50% collapse upon inspiration consistent with elevated right atrial pressure, 8 mmHg. Normal inferior vena cava with >50% collapse upon inspiration consistent with elevated right atrial pressure, 8 mmHg. Aorta The aortic root at the level of the sinus of Valsalva measures 2.7 cm in diameter. Left Ventricular Outflow Tract Name Value Normal LVOT 2D LVOT Diameter 1.9 cm LVOT Doppler LVOT Peak Gradient 4 mmHg LVOT Mean Gradient 2 mmHg LVOT VTI 22 cm LVOT VTI/AV VTI Ratio 0.7 LVOT Stroke Volume 60 ml LVOT CO 3.4 l/min LVOT CI 1.7 l/min/m2 Pulmonic Valve Name Value Normal RVOT Doppler RVOT Peak Gradient 3 mmHg PV Doppler PV Peak Gradient 3 mmHg Mitral Valve Name Value Normal MV Doppler MV Peak Gradient 5 mmHg MV Mean Gradient 1 mmHg MV Decel Ashe 635 cm/s2 MV PHT 38 ms MV Area (PHT) 5.7 cm2 4.0-5.0 MV Area (Cont Eq VTI) 2.2 cm2 MV Diastolic Function MV E Peak Velocity 84 cm/s MV A Peak Velocity 39 cm/s MV E/A 2.2 MV Decel Time 133 ms MV Annular TDI MV E/e' (Septal) 12.3 <=8.0 MV E/e' (Lateral) 6.4 <=8.0 MV E/e' (Average) 9.4 Tricuspid Valve Name Value Normal TV Regurgitation Doppler TR Peak Velocity 275 cm/s TR Peak Gradient 30 mmHg Estimated PAP/RSVP RA Pressure 8 mmHg <=5 PA Systolic Pressure 38 mmHg <36 RV Systolic Pressure 38 mmHg <36 Aorta Name Value Normal Ascending Aorta Ao Root Diameter (MM) 3.5 cm Ao Root Diam Index (MM) 1.7 cm/m2 Aortic Valve Name Value Normal AV Doppler AV Peak Velocity 164 cm/s AV Peak Gradient 10 mmHg AV Mean Gradient 5 mmHg AV VTI 32 cm AV Area (Cont Eq VTI) 1.9 cm2 >=3.0 AV Area (Cont Eq Daniel) 1.6 cm2 AV Regurgitation 2D LVOT Area 2.8 cm2 Ventricles Name Value Normal LV Dimensions 2D/MM IVS Diastolic Thickness (2D) 1.4 cm 0.6-1.0 LVID Diastole (2D) 4.4 cm 3.8-5.2 LVIW Diastolic Thickness (2D) 1.3 cm 0.6-0.9 LVID Systole (2D) 3.0 cm 2.2-3.5 LVOT Diameter 1.9 cm LV Mass (2D Cubed) 235.14 g 67.00-162.00 LV Mass Index (2D Cubed) 119 g/m2 43-95 Relative Wall Thickness (2D) 0.59 LV Fractional Shortening/Ejection Fraction 2D/MM LV Fractional Shortening (2D) 32 % 27-45 LV EF (2D Teichnailaz) 60 % 54-74 LV Diastolic Volume (4C MOD) 68 ml LV EF (4C MOD) 62 % LV Diastolic Volume (2C MOD) 64 ml LV EF (2C MOD) 77 % LV Diastolic Volume (BP MOD) 66 ml 46-106 LV Diastolic Volume Index (BP MOD) 34 ml/m2 29-61 LV Systolic Volume (BP MOD) 20 ml 14-42 LV Systolic Volume Index (BP MOD) 10 ml/m2 8-24 LV EF (BP MOD) 69 % 54-74 LV Diastolic Length (4C) 7.0 cm LV Systolic Length (4C) 5.9 cm LV Stroke Volume (4C MOD) 42 ml Atria Name Value Normal LA Dimensions LA Dimension (MM) 2.5 cm 2.7-3.8 LA Volume (4C A-L) 36 ml LA Volume (BP A-L) 48 ml RA Dimensions RA Area (4C) 14.4 cm2 <=18.0 Report Signatures
--- NOTE | 2024-07-04 15:57 | P.PNIM_ITS ---
Progress Note: A&P Assessment and Plan (1) Acute respiratory failure with hypoxia: Code(s): J96.01 - Acute respiratory failure with hypoxia Status: Acute (2) Pneumonia: Code(s): J18.9 - Pneumonia, unspecified organism Status: Acute (3) Heart failure of unknown type: Code(s): I50.9 - Heart failure, unspecified Status: Acute (4) Urinary retention: Code(s): R33.9 - Retention of urine, unspecified Status: Acute (5) Hyponatremia: Code(s): E87.1 - Hypo-osmolality and hyponatremia Status: Acute (6) Hyperglycemia: Code(s): R73.9 - Hyperglycemia, unspecified Status: Acute (7) Paroxysmal atrial fibrillation: Code(s): I48.0 - Paroxysmal atrial fibrillation Status: Chronic (8) Chronic anticoagulation: Code(s): 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 Pneumonia Chest x-ray showed bilateral pulmonary opacities, pneumonia versus pulmonary edema Blood and sputum cultures, MRSA CT chest ordered to rule out Pulm edema continue Rocephin and Azithromycin COPD exacerbation Continue Duoneb and Synbicort monitor Covid Continue Dexamethasone and Remdesivir monitor Hyponatremia Na 117 122 today Improved on diuretics, continue monitoring ECHO showed normal lV function stop lasix and monitor, then adjust with clinical course monitor Iron deficiency anemia Isat 9, hb 9.4 started on Iron IV 200/1000 FOBT pending monitor Paroxysmal Afib Contineu Xarelto Urinary retention On herrera, 1000cc drained in the ER on herrera insertion start tamsulosin voidnig trial soon HTN titrate with home meds DVT prophylaxis on Xarelto Subjective Date/time seen: 07/04/24 15:57 Interval history: Comfortable at bedside awake adn communicating comfortably Review of Systems Review of Systems: 12 systems were reviewed and are negativ e except for as per HPI. Exam Narrative: General: alert and comfortable HEENT: Normocephalic, atraumatic. PERRL, EOMI. Sclerae anicteric. Oral mucosa moist. Neck: Supple. No significant jugular venous distention. Respiratory: Respirations are nonlabored and she is speaking in full sentences. Currently on 2 L nasal cannula. Lung sounds are coarse and crackly throughout with occasional wheezing. 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 Cardiovascular: Regular rate and rhythm. Soft murmur at the upper sternal border. Gastrointestinal: Abdomen is soft and nondistended with positive bowel sounds. Bladder feels distended and a Herrera catheter was placed yielding 1000 mL of urine within a short period of time. Skin: Warm and dry. Generalized pallor. Extremities: No cyanosis or clubbing. 2+ bilateral lower extremity edema to the knees. No palpable knots or cords. Neurological: Alert. Cranial nerves 2-12 are grossly intact. No gross focal deficits to casual conversation. Objective Data Vital Signs Vital Signs: Vital Signs - 24 hr 07/03/24 18:16 07/03/24 19:30 07/03/24 19:30 Temperature Pulse Rate 60 60 Respiratory Rate 12 16 Blood Pressure 153/70 H 140/70 Pulse Oximetry 98 98 98 Oxygen Delivery Nasal Cannula Oxygen Flow Rate 3 07/03/24 20:38 07/03/24 21:50 07/03/24 22:00 Temperature 97.7 F Pulse Rate 60 62 Respiratory Rate 19 18 Blood Pressure 127/70 173/58 H Pulse Oximetry 99 97 96 Oxygen Delivery Nasal Cannula Oxygen Flow Rate 3 07/03/24 22:00 07/03/24 23:43 07/03/24 23:44 Temperature Pulse Rate 62 60 60 Respiratory Rate Blood Pressure Pulse Oximetry Oxygen Delivery Oxygen Flow Rate 07/04/24 00:00 07/04/24 00:00 07/04/24 00:00 Temperature 97.8 F Pulse Rate 61 60 Respiratory Rate 18 Blood Pressure 113/50 L Pulse Oximetry 96 97 Oxygen Delivery Nasal Cannula Oxygen Flow Rate 3 07/04/24 02:00 07/04/24 04:00 07/04/24 04:00 Temperature 97.4 F L Pulse Rate 60 61 Respiratory Rate 18 Blood Pressure 111/51 L Pulse Oximetry 96 97 Oxygen Delivery Nasal Cannula Oxygen Flow Rate 3 07/04/24 04:00 07/04/24 06:00 07/04/24 08:00 Temperature 98.3 F Pulse Rate 60 60 65 Respiratory Rate 22 H Blood Pressure 116/46 L Pulse Oximetry 91 Oxygen Delivery Oxygen Flow Rate 07/04/24 08:23 07/04/24 08:25 07/04/24 08:40 Temperature Pulse Rate 63 63 Respiratory Rate Blood Pressure Pulse Oximetry 95 Oxygen Delivery Nasal Cannula Oxygen Flow Rate 3 07/04/24 08:40 07/04/24 10:00 07/04/24 12:00 Temperature 98.2 F Pulse Rate 63 60 59 L Respiratory Rate 18 Blood Pressure 116/55 L Pulse Oximetry 96 Oxygen Delivery Oxygen Flow Rate 07/04/24 12:15 07/04/24 12:15 07/04/24 14:00 Temperature Pulse Rate 60 60 Respiratory Rate Blood Pressure Pulse Oximetry 96 Oxygen Delivery Nasal Cannula Oxygen Flow Rate 2 Intake/Output Intake/Output: Intake & Output 07/01/24 07/02/24 07/03/24 07/04/24 23:59 23:59 23:59 23:59 Intake Total 300 530 Output Total 1000 1500 Balance -700 -970 Meds/Results Medications: Active Medications Generic Name Dose Route Start Last Admin Trade Name Freq PRN Reason Stop Dose Admin Acetaminophen 650 mg 07/03/24 14:22 Acetaminophen 325 Mg Tablet PO Q4H PRN Mild Pain (1-3) or Fever Hydrocodone Bitart/Acetaminophen 1 tab 07/03/24 14:22 07/03/24 22:56 Hydrocodone/Acetaminophen (*Crx) 5-325 Mg Tablet PO 1 tab Q4H PRN Administration Pain Rated 4-6 Buspirone HCl 20 mg 07/04/24 08:30 07/04/24 13:25 Buspirone Hcl 10 Mg Tablet PO 20 mg 0830,1330,1930 MARTIN Administration Carvedilol 12.5 mg 07/03/24 22:45 07/04/24 08:23 Carvedilol 12.5 Mg Tablet PO 12.5 mg Q12HR MARTIN Administration Cyclosporine 1 drop 07/03/24 22:45 07/04/24 08:25 Cyclosporine 0.4 Ml Ophth Solution EACH EYE 1 drop Q12HR MARTIN Administration Dexamethasone 6 mg 07/04/24 08:00 07/04/24 08:21 Dexamethasone 2 Mg Tablet PO 07/13/24 08:01 6 mg DAILY@0800 MARTIN Administration Dextrose 12.5 gm 07/03/24 22:44 Dextrose 50% 25 Gm/50 Ml Syringe IV PUSH PRN PRN Hypoglycemia Protocol Famotidine 20 mg 07/04/24 09:00 07/04/24 08:25 Famotidine 20 Mg Tablet PO 20 mg Q12HR MARTIN Administration Flecainide Acetate 150 mg 07/03/24 23:05 07/04/24 08:25 Flecainide Acetate 50 Mg Tablet PO 150 mg Q12HR MARTIN Administration Furosemide 40 mg 07/03/24 22:45 07/04/24 08:26 Furosemide Inj 40 Mg/4 Ml Vial IV PUSH 40 mg BID MARTIN Administration Glucagon 1 mg 07/03/24 22:44 Glucagon For Inj 1 Mg Vial IM PRN PRN Hypoglycemia Protocol Glucose 15 gm 07/03/24 22:44 Glucose Oral Gel 15 Gm Of Glucse In 37.5 Gm Tube PO PRN PRN Hypoglycemia Protocol Guaifenesin 1,200 mg 07/04/24 09:00 07/04/24 12:00 Guaifenesin 12 Hr 600 Mg Tabcr PO 1,200 mg Q12HR MARTIN Administration Ceftriaxone Sodium 1 gm in 50 mls @ 100 mls/hr 07/04/24 14:00 07/04/24 14:43 Rocephin 1 Gm/Ns 50 Ml IVPB Infused Q24H MARTIN Infusion Azithromycin 500 mg in 250 mls @ 250 mls/hr 07/04/24 15:00 07/04/24 14:43 Zithromax IVPB 250 mls/hr Q24H MARTIN Administration Dextrose 1,000 mls @ 100 mls/hr 07/03/24 22:44 Dextrose 5% 1,000 Ml IVPB PRN PRN Hypoglycemia Protocol Remdesivir 100 mg in 250 mls @ 250 mls/hr 07/04/24 22:00 IVPB 07/07/24 22:59 Q24H MARTIN Losartan Potassium 25 mg 07/04/24 09:00 07/04/24 08:21 Losartan Potassium 25 Mg Tablet PO 25 mg DAILY MARTIN Administration Perflutren Lipid Microsphere 0 ml 07/03/24 14:55 Perflutren Lipid Microspheres 1.5 Ml Vial Diluted To 10 Ml Total Volume IV PUSH 07/06/24 14:55 ONCE PRN adequate visualization Protocol Promethazine HCl 12.5 mg 07/03/24 14:22 Promethazine Hcl 25 Mg/Ml Ampul IV PUSH Q6H PRN Nausea Rivaroxaban 15 mg 07/03/24 22:50 07/03/24 23:44 Rivaroxaban 15 Mg Tablet PO 15 mg QPM MARTIN Administration Vitamin D 1,000 units 07/04/24 09:00 07/04/24 08:22 Cholecalciferol 1,000 Units Tablet PO 1,000 units DAILY MARTIN Administration Radiology Results: ITS Impressions Chest X-Ray 07/03/24 12:53 Impression: 1: Significant progression of bilateral airspace disease, consistent with pneumonia. Pulmonary edema is the differential diagnosis. Venous Doppler Study 07/04/24 08:14 IMPRESSION: 1: No lower extremity deep venous thrombosis. Labs Labs: Laboratory Results - last 24 hr 07/03/24 07/03/24 07/03/24 15:41 15:49 18:49 WBC RBC Hgb Hct MCV MCH MCHC RDW Plt Count MPV Immature Gran % (Auto) Neut % (Auto) Lymph % (Auto) [place] % (Auto) Eos % (Auto) Baso % (Auto) Lymph # (Auto) [place] # (Auto) Eos # (Auto) Baso # (Auto) Abs Immat Gran (auto) Absolute Neuts (auto) Absolute Nucleated RBC Nucleated RBC % Sodium 117 L* Potassium 5.0 Chloride 82 L Carbon Dioxide 25 Anion Gap 10 BUN 12 Creatinine 0.50 L Estim Creat Clear Calc 77 Estimated GFR > 60 Glucose 160 H Calcium 8.3 L Magnesium 1.7 Iron TIBC % Saturation Ferritin Lactate Dehydrogenase Troponin I < 0.012 < 0.012 C-Reactive Protein TSH (Reflex) 2.150 Ur Random Sodium Ur Random Urea Urine Creatinine Nasal MRSA (PCR) Influenza A (RT-PCR) Negative Influenza B (RT-PCR) Negative RSV (RT-PCR) Negative SARS-CoV-2 RNA (RT-PCR) Positive A 07/03/24 07/03/24 07/03/24 19:20 22:35 22:55 WBC RBC Hgb Hct MCV MCH MCHC RDW Plt Count MPV Immature Gran % (Auto) Neut % (Auto) Lymph % (Auto) [place] % (Auto) Eos % (Auto) Baso % (Auto) Lymph # (Auto) [place] # (Auto) Eos # (Auto) Baso # (Auto) Abs Immat Gran (auto) Absolute Neuts (auto) Absolute Nucleated RBC Nucleated RBC % Sodium 117 L* Potassium Chloride Carbon Dioxide Anion Gap BUN Creatinine Estim Creat Clear Calc Estimated GFR Glucose Calcium Magnesium Iron TIBC % Saturation Ferritin Lactate Dehydrogenase Troponin I C-Reactive Protein TSH (Reflex) Ur Random Sodium 90 Ur Random Urea 119 Urine Creatinine 11.3 Nasal MRSA (PCR) Not detected Not detected Influenza A (RT-PCR) Influenza B (RT-PCR) RSV (RT-PCR) SARS-CoV-2 RNA (RT-PCR) 07/04/24 07/04/24 07/04/24 04:02 04:07 04:07 WBC 13.9 H RBC 3.06 L Hgb 9.4 L Hct 27.4 L MCV 89.5 MCH 30.7 MCHC 34.3 RDW 13.1 Plt Count 315 MPV 8.3 Immature Gran % (Auto) 0.8 H Neut % (Auto) 76.6 H Lymph % (Auto) 8.8 L [place] % (Auto) 12.4 H Eos % (Auto) 1.3 Baso % (Auto) 0.1 L Lymph # (Auto) 1.23 [place] # (Auto) 1.7 H Eos # (Auto) 0.2 Baso # (Auto) 0.0 Abs Immat Gran (auto) 0.11 H Absolute Neuts (auto) 10.7 H Absolute Nucleated RBC 0.000 Nucleated RBC % 0.0 Sodium Cancelled 119 L* Potassium 4.4 Chloride 84 L Carbon Dioxide 32 H Anion Gap 3 L BUN 10 Creatinine 0.57 L Estim Creat Clear Calc 67 Estimated GFR > 60 Glucose 98 Calcium 8.0 L Magnesium Iron 21 L TIBC 236 L % Saturation 9 L Ferritin 332.00 H Lactate Dehydrogenase 200 Troponin I C-Reactive Protein 16.9 H TSH (Reflex) Ur Random Sodium Ur Random Urea Urine Creatinine Nasal MRSA (PCR) Influenza A (RT-PCR) Influenza B (RT-PCR) RSV (RT-PCR) SARS-CoV-2 RNA (RT-PCR) 07/04/24 07/04/24 06:29 12:10 WBC RBC Hgb Hct MCV MCH MCHC RDW Plt Count MPV Immature Gran % (Auto) Neut % (Auto) Lymph % (Auto) [place] % (Auto) Eos % (Auto) Baso % (Auto) Lymph # (Auto) [place] # (Auto) Eos # (Auto) Baso # (Auto) Abs Immat Gran (auto) Absolute Neuts (auto) Absolute Nucleated RBC Nucleated RBC % Sodium 119 L* 122 L Potassium Chloride Carbon Dioxide Anion Gap BUN Creatinine Estim Creat Clear Calc Estimated GFR Glucose Calcium Magnesium Iron TIBC % Saturation Ferritin Lactate Dehydrogenase Troponin I C-Reactive Protein TSH (Reflex) Ur Random Sodium Ur Random Urea Urine Creatinine Nasal MRSA (PCR) Influenza A (RT-PCR) Influenza B (RT-PCR) RSV (RT-PCR) SARS-CoV-2 RNA (RT-PCR) Quality VTE Prophylaxis VTE prophylaxis: pharmacologic ordered (on rivaroxaban)
[2024-07-04 16:08] LABS: Sodium 122 mmol/L (137-145)
[2024-07-04] MEDS: TAMSULOSIN HCL 0.4 MG CAPSULE PO (17:36)
[2024-07-04] MEDS: IRON SUCROSE COMPLEX 200 MG in SODIUM CHLORIDE 0.9% IV 50 ML 220 MG IVPB (17:36)
[2024-07-04] MEDS: RIVAROXABAN 15 MG TABLET PO (17:36)
[2024-07-04 18:20] LABS: MRSA (PCR) NOT DETECTED (NOT DETECTE)
[2024-07-04] MEDS: IPRATROPIUM 0.5 MG/ALBUTEROL SULFATE 2.5 MG AMPUL.NEB 3 ML INHALATION (21:28)
[2024-07-04] MEDS: FLUTICASONE/SALMETEROL 45-21 MCG INHALER 1 PUFF 2 PUFF INHALATION (21:28)
[2024-07-04 21:38] LABS: Sodium 122 mmol/L (137-145)
[2024-07-04] MEDS: REMDESIVIR 100 MG/NS 250 ML 100 MG/250 ML BAG 250 MG IVPB (23:00)
[2024-07-05] VITALS (19 sets, daily range): BP systolic 117–128; BP diastolic 48–69; PULSE 60–73; RESP 16–20; TEMP 36.1–36.9; O2SAT 92–98
[2024-07-05] MEDS: IPRATROPIUM 0.5 MG/ALBUTEROL SULFATE 2.5 MG AMPUL.NEB 3 ML INHALATION ×4 (02:37→21:08)
[2024-07-05 05:45] LABS: Basophils Percent Auto 0.2 % (0.2-1.2); Hematocrit 29.4 % (37.0-47.0); Hemoglobin 9.8 g/dL (12.0-15.0); Immature Granulocyte Absolute 0.22 K/mm3 (0.00-0.031); Immature Granulocyte Percent A 1.2 % (0-0.5); Lymphocytes Percent Auto 5.4 % (18.3-44.2); Mean Corpuscular HGB Conc 33.3 g/dl (32-36); Mean Corpuscular Hemoglobin 30.8 pg (26-34); Mean Corpuscular Volume 92.5 fl (80-100); Mean Platelet Volume 8.7 fl (7.4-10.4); Monocytes Absolute Auto 1.6 K/mm3 (0.1-0.6); Monocytes Percent Auto 8.5 % (2.6-8.5); Neutrophils Absolute Auto 15.7 K/mm3 (1.3-6.7); Neutrophils Percent Auto 84.7 % (45.5-73.1); Platelet Count Result 395 k/mm3 (150-375); Red Blood Count 3.18 M/mm3 (4.2-5.4); Red Cell Distribution Width 13.5 % (11.5-14.5); White Blood Count 18.6 K/mm3 (4.5-10.0)
[2024-07-05 05:57] LABS: Alanine Aminotransferase 26 U/L (6-35); Albumin Level 2.7 g/dL (3.5-5.1); Alkaline Phosphatase 179 U/L (38-126); Alkaline Phosphatase 185 U/L (38-126); Anion Gap 3 mmol/L (4-12); Aspartate Amino Transferase 23 U/L (14-36); Aspartate Amino Transferase 31 U/L (14-36); Bilirubin,Total 0.7 mg/dL (0.2-1.3); Blood Urea Nitrogen 15 mg/dL (7-17); Calcium 8.3 mg/dL (8.4-10.2); Carbon Dioxide 33 mmol/L (22-30); Chloride 90 mmol/L (98-107); Estimated CRCL calculation 60 ml/min; Estimated Glomerular Filt Rate > 60; Glucose 121 mg/dL (65-110); INR 2.8; Magnesium 2.1 mg/dL (1.6-2.3); Potassium 4.6 mmol/L (3.4-5.0); Prothrombin Time 29.7 Seconds (11.1-14.7); Sodium 126 mmol/L (137-145)
[2024-07-05] MEDS: FLUTICASONE/SALMETEROL 45-21 MCG INHALER 1 PUFF 2 PUFF INHALATION ×2 (07:54→21:08)
[2024-07-05] MEDS: dexAMETHasone 2 MG TABLET 6 MG PO (09:54)
[2024-07-05] MEDS: guaiFENesin 12 HR 600 MG TABCR 1200 MG PO ×2 (09:54→20:57)
[2024-07-05] MEDS: FLECAINIDE ACETATE 50 MG TABLET 150 MG PO ×2 (09:54→20:57)
[2024-07-05] MEDS: CHOLECALCIFEROL 1,000 UNITS TABLET 1000 UNITS PO (09:55)
[2024-07-05] MEDS: FAMOTIDINE 20 MG TABLET PO ×2 (09:55→20:57)
[2024-07-05] MEDS: LOSARTAN POTASSIUM 25 MG TABLET PO (09:55)
[2024-07-05] MEDS: TAMSULOSIN HCL 0.4 MG CAPSULE PO (09:55)
[2024-07-05] MEDS: carvediloL 12.5 MG TABLET PO ×2 (09:56→20:56)
[2024-07-05] MEDS: cycloSPORINE 0.4 ML OPHTH SOLUTION 1 DROP EACH EYE ×2 (09:58→20:56)
[2024-07-05] MEDS: busPIRone HCL 10 MG TABLET 20 MG PO ×3 (09:58→20:56)
[2024-07-05] MEDS: IRON SUCROSE COMPLEX 200 MG in SODIUM CHLORIDE 0.9% IV 100 ML 220 MG IVPB (11:57)
[2024-07-05 13:14] LABS: Osmolality, Urine 275 mOsm/kg (50-1200)
[2024-07-05] MEDS: AZITHROMYCIN 500 MG/NS 250 ML 500 MG/250 ML BAG 250 MG IVPB (14:42)
--- NOTE | 2024-07-05 16:22 | P.PNIM_ITS ---
Progress Note: A&P Assessment and Plan (1) Acute respiratory failure with hypoxia: Code(s): J96.01 - Acute respiratory failure with hypoxia Status: Acute (2) Pneumonia: Code(s): J18.9 - Pneumonia, unspecified organism Status: Acute (3) Heart failure of unknown type: Code(s): I50.9 - Heart failure, unspecified Status: Acute (4) Urinary retention: Code(s): R33.9 - Retention of urine, unspecified Status: Acute (5) Hyponatremia: Code(s): E87.1 - Hypo-osmolality and hyponatremia Status: Acute (6) Hyperglycemia: Code(s): R73.9 - Hyperglycemia, unspecified Status: Acute (7) Paroxysmal atrial fibrillation: Code(s): I48.0 - Paroxysmal atrial fibrillation Status: Chronic (8) Chronic anticoagulation: Code(s): Z79.01 - long term 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 Pneumonia Chest x-ray showed bilateral pulmonary opacities, pneumonia versus pulmonary edema Blood and sputum cultures, MRSA CT chest ordered to rule out Pulm edema continue Rocephin and Azithromycin COPD exacerbation Continue Duoneb and Symbicort monitor Covid Continue Dexamethasone and Remdesivir monitor Hyponatremia Na 117 126 today Improved on diuretics, continue monitoring ECHO showed normal lV function continue Lasix monitor Iron deficiency anemia Isat 9, hb 9.4 started on Iron IV 400/1000 FOBT pending monitor Paroxysmal Afib Continue Xarelto Urinary retention On herrera, 1000cc drained in the ER on herrera insertion start tamsulosin voiding trial soon HTN titrate with home meds DVT prophylaxis on Xarelto Subjective Date/time seen: 07/05/24 16:22 Interval history: Comfortable at bedside awake and communicating comfortably Review of Systems Review of Systems: 12 systems were reviewed and are negativ e except for as per HPI. Exam Narrative: General: alert and comfortable HEENT: Normocephalic, atraumatic. PERRL, EOMI. Sclerae anicteric. Oral mucosa moist. Neck: Supple. No significant jugular venous distention. Respiratory: Respirations are nonlabored and she is speaking in full sentences. Currently on 2 L nasal cannula. Lung sounds are coarse and crackly throughout with occasional wheezing. 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 Cardiovascular: Regular rate and rhythm. Soft murmur at the upper sternal border. Gastrointestinal: Abdomen is soft and nondistended with positive bowel sounds. Bladder feels distended and a Herrera catheter was placed yielding 1000 mL of urine within a short period of time. Skin: Warm and dry. Generalized pallor. Extremities: No cyanosis or clubbing. 2+ bilateral lower extremity edema to the knees. No palpable knots or cords. Neurological: Alert. Cranial nerves 2-12 are grossly intact. No gross focal deficits to casual conversation. Objective Data Vital Signs Vital Signs: Vital Signs - 24 hr 07/04/24 16:45 07/04/24 16:45 07/04/24 18:00 Temperature Pulse Rate 60 60 Respiratory Rate Blood Pressure Pulse Oximetry 98 Oxygen Delivery Nasal Cannula Oxygen Flow Rate 2 07/04/24 19:51 07/04/24 20:00 07/04/24 20:00 Temperature 98.6 F Pulse Rate 62 63 Respiratory Rate 18 Blood Pressure 105/41 L Pulse Oximetry 97 97 Oxygen Delivery Nasal Cannula Oxygen Flow Rate 2 07/04/24 21:15 07/04/24 21:30 07/04/24 21:37 Temperature Pulse Rate 62 60 Respiratory Rate 20 20 Blood Pressure Pulse Oximetry 97 Oxygen Delivery Nasal Cannula Oxygen Flow Rate 2 07/04/24 22:00 07/04/24 23:38 07/05/24 00:00 Temperature 97.5 F L Pulse Rate 60 62 Respiratory Rate 18 Blood Pressure 103/44 L Pulse Oximetry 97 97 Oxygen Delivery Nasal Cannula Oxygen Flow Rate 2 07/05/24 00:00 07/05/24 02:00 07/05/24 02:37 Temperature Pulse Rate 60 60 66 Respiratory Rate 20 Blood Pressure Pulse Oximetry Oxygen Delivery Oxygen Flow Rate 07/05/24 04:00 07/05/24 04:00 07/05/24 04:00 Temperature 98.4 F Pulse Rate 65 67 Respiratory Rate 17 Blood Pressure 121/69 Pulse Oximetry 94 93 Oxygen Delivery Nasal Cannula Oxygen Flow Rate 2 07/05/24 07:54 07/05/24 07:54 07/05/24 08:00 Temperature 97.7 F Pulse Rate 60 60 Respiratory Rate 20 16 Blood Pressure 128/50 L Pulse Oximetry 96 98 Oxygen Delivery Nasal Cannula Oxygen Flow Rate 2 07/05/24 08:05 07/05/24 12:18 07/05/24 14:40 Temperature 97.7 F Pulse Rate 60 60 66 Respiratory Rate 20 20 20 Blood Pressure 119/52 L Pulse Oximetry 92 Oxygen Delivery Oxygen Flow Rate 07/05/24 15:00 07/05/24 15:26 Temperature 98 F Pulse Rate 60 69 Respiratory Rate 20 18 Blood Pressure 119/48 L Pulse Oximetry 98 Oxygen Delivery Oxygen Flow Rate Intake/Output Intake/Output: Intake & Output 07/02/24 07/03/24 07/04/24 07/05/24 23:59 23:59 23:59 23:59 Intake Total 300 1080 480 Output Total 1000 3150 2024 [place] [phone] Meds/Results Medications: Active Medications Generic Name Dose Route Start Last Admin Trade Name Freq PRN Reason Stop Dose Admin Acetaminophen 650 mg 07/03/24 14:22 Acetaminophen 325 Mg Tablet PO Q4H PRN Mild Pain (1-3) or Fever Hydrocodone Bitart/Acetaminophen 1 tab 07/03/24 14:22 07/03/24 22:56 Hydrocodone/Acetaminophen (*Crx) 5-325 Mg Tablet PO 1 tab Q4H PRN Administration Pain Rated 4-6 Albuterol/Ipratropium 3 ml 07/04/24 20:00 07/05/24 14:39 Ipratropium 0.5 Mg/Albuterol Sulfate 2.5 Mg Ampul.Neb 3 Ml INHALATION 3 ml Q6HRT MARTIN Administration Amoxicillin/Clavulanate Potassium 1 tablet 07/06/24 12:00 Amoxicillin/Clavulanate K 875-125 Mg Tab PO 07/09/24 21:01 Q12HR MARTIN Azithromycin 500 mg 07/06/24 12:00 Azithromycin 250 Mg Tablet PO 07/07/24 09:01 DAILY MARTIN Buspirone HCl 20 mg 07/04/24 08:30 07/05/24 14:43 Buspirone Hcl 10 Mg Tablet PO 20 mg 0830,1330,1930 MARTIN Administration Carvedilol 12.5 mg 07/03/24 22:45 07/05/24 09:56 Carvedilol 12.5 Mg Tablet PO 12.5 mg Q12HR MARTIN Administration Cyclosporine 1 drop 07/03/24 22:45 07/05/24 09:58 Cyclosporine 0.4 Ml Ophth Solution EACH EYE 1 drop Q12HR MARTIN Administration Dexamethasone 6 mg 07/04/24 08:00 07/05/24 09:54 Dexamethasone 2 Mg Tablet PO 07/13/24 08:01 6 mg DAILY@0800 MARTIN Administration Dextrose 12.5 gm 07/03/24 22:44 Dextrose 50% 25 Gm/50 Ml Syringe IV PUSH PRN PRN Hypoglycemia Protocol Famotidine 20 mg 07/04/24 09:00 07/05/24 09:55 Famotidine 20 Mg Tablet PO 20 mg Q12HR MARTIN Administration Flecainide Acetate 150 mg 07/03/24 23:05 07/05/24 09:54 Flecainide Acetate 50 Mg Tablet PO 150 mg Q12HR MARTIN Administration Glucagon 1 mg 07/03/24 22:44 Glucagon For Inj 1 Mg Vial IM PRN PRN Hypoglycemia Protocol Glucose 15 gm 07/03/24 22:44 Glucose Oral Gel 15 Gm Of Glucse In 37.5 Gm Tube PO PRN PRN Hypoglycemia Protocol Guaifenesin 1,200 mg 07/04/24 09:00 07/05/24 09:54 Guaifenesin 12 Hr 600 Mg Tabcr PO 1,200 mg Q12HR MARTIN Administration Dextrose 1,000 mls @ 100 mls/hr 07/03/24 22:44 Dextrose 5% 1,000 Ml IVPB PRN PRN Hypoglycemia Protocol Remdesivir 100 mg in 250 mls @ 250 mls/hr 07/04/24 22:00 07/04/24 23:00 IVPB 07/07/24 22:59 250 mls/hr Q24H MARTIN Administration Losartan Potassium 25 mg 07/04/24 09:00 07/05/24 09:55 Losartan Potassium 25 Mg Tablet PO 25 mg DAILY MARTIN Administration Perflutren Lipid Microsphere 0 ml 07/03/24 14:55 Perflutren Lipid Microspheres 1.5 Ml Vial Diluted To 10 Ml Total Volume IV PUSH 07/06/24 14:55 ONCE PRN adequate visualization Protocol Promethazine HCl 12.5 mg 07/03/24 14:22 Promethazine Hcl 25 Mg/Ml Ampul IV PUSH Q6H PRN Nausea Rivaroxaban 15 mg 07/03/24 22:50 07/04/24 17:36 Rivaroxaban 15 Mg Tablet PO 15 mg QPM MARTIN Administration Fluticasone/Salmeterol 2 puff 07/04/24 20:00 07/05/24 07:54 Fluticasone/Salmeterol 45-21 Mcg Inhaler 1 Puff INHALATION 2 puff Q12HRT MARTIN Administration Tamsulosin HCl 0.4 mg 07/04/24 16:20 07/05/24 09:55 Tamsulosin Hcl 0.4 Mg Capsule PO 0.4 mg QAM MARTIN Administration Vitamin D 1,000 units 07/04/24 09:00 07/05/24 09:55 Cholecalciferol 1,000 Units Tablet PO 1,000 units DAILY MARTIN Administration Radiology Results: ITS Impressions Chest X-Ray 07/03/24 12:53 Impression: 1: Significant progression of bilateral airspace disease, consistent with pneumonia. Pulmonary edema is the differential diagnosis. Venous Doppler Study 07/04/24 08:14 IMPRESSION: 1: No lower extremity deep venous thrombosis. Chest CT 07/04/24 17:38 IMPRESSION: 1. Diffuse lung disease, consistent with pulmonary edema versus pneumonia. 2. Small pleural effusions. 3. Thyroid nodule. Consider thyroid ultrasound for risk stratification if clinically indicated given the patient's age and comorbidities. Labs Labs: Laboratory Results - last 24 hr 07/03/24 07/03/24 07/04/24 18:49 19:20 16:26 WBC RBC Hgb Hct MCV MCH MCHC RDW Plt Count MPV Immature Gran % (Auto) Neut % (Auto) Lymph % (Auto) [place] % (Auto) Eos % (Auto) Baso % (Auto) Lymph # (Auto) [place] # (Auto) Eos # (Auto) Baso # (Auto) Abs Immat Gran (auto) Absolute Neuts (auto) Absolute Nucleated RBC Nucleated RBC % PT INR Sodium Potassium Chloride Carbon Dioxide Anion Gap BUN Creatinine Estim Creat Clear Calc Estimated GFR Glucose Serum Osmolality 247 L Calcium Magnesium Total Bilirubin Direct Bilirubin AST ALT Alkaline Phosphatase Total Protein Albumin Urine Osmolality 275 Nasal MRSA (PCR) Not detected 07/04/24 07/05/24 07/05/24 21:28 05:10 05:10 WBC 18.6 H RBC 3.18 L Hgb 9.8 L Hct 29.4 L MCV 92.5 MCH 30.8 MCHC 33.3 RDW 13.5 Plt Count 395 H MPV 8.7 Immature Gran % (Auto) 1.2 H Neut % (Auto) 84.7 H Lymph % (Auto) 5.4 L [place] % (Auto) 8.5 Eos % (Auto) 0.0 Baso % (Auto) 0.2 Lymph # (Auto) 1.00 [place] # (Auto) 1.6 H Eos # (Auto) 0.0 Baso # (Auto) 0.0 Abs Immat Gran (auto) 0.22 H Absolute Neuts (auto) 15.7 H Absolute Nucleated RBC 0.000 Nucleated RBC % 0.0 PT 29.7 H D INR 2.8 Sodium 122 L 126 L Potassium 4.6 Chloride 90 L Carbon Dioxide 33 H Anion Gap 3 L BUN 15 D Creatinine 0.56 L Estim Creat Clear Calc 60 Estimated GFR > 60 Glucose 121 H Serum Osmolality Calcium 8.3 L Magnesium 2.1 Total Bilirubin 0.7 0.7 Direct Bilirubin 0.0 AST 23 ALT Alkaline Phosphatase Total Protein Albumin Urine Osmolality Nasal MRSA (PCR) 07/05/24 07/05/24 07/05/24 05:10 05:10 05:10 WBC RBC Hgb Hct MCV MCH MCHC RDW Plt Count MPV Immature Gran % (Auto) Neut % (Auto) Lymph % (Auto) [place] % (Auto) Eos % (Auto) Baso % (Auto) Lymph # (Auto) [place] # (Auto) Eos # (Auto) Baso # (Auto) Abs Immat Gran (auto) Absolute Neuts (auto) Absolute Nucleated RBC Nucleated RBC % PT INR Sodium Potassium Chloride Carbon Dioxide Anion Gap BUN Creatinine Estim Creat Clear Calc Estimated GFR Glucose Serum Osmolality Calcium Magnesium Total Bilirubin Direct Bilirubin AST 31 ALT 26 26 Alkaline Phosphatase 185 H 179 H Total Protein 6.0 L Albumin Urine Osmolality Nasal MRSA (PCR) 07/05/24 07/05/24 05:10 05:10 WBC RBC Hgb Hct MCV MCH MCHC RDW Plt Count MPV Immature Gran % (Auto) Neut % (Auto) Lymph % (Auto) [place] % (Auto) Eos % (Auto) Baso % (Auto) Lymph # (Auto) [place] # (Auto) Eos # (Auto) Baso # (Auto) Abs Immat Gran (auto) Absolute Neuts (auto) Absolute Nucleated RBC Nucleated RBC % PT INR Sodium Potassium Chloride Carbon Dioxide Anion Gap BUN Creatinine Estim Creat Clear Calc Estimated GFR Glucose Serum Osmolality Calcium Magnesium Total Bilirubin Direct Bilirubin AST ALT Alkaline Phosphatase Total Protein 6.0 L Albumin 2.7 L 2.7 L Urine Osmolality Nasal MRSA (PCR) Quality VTE Prophylaxis VTE prophylaxis: pharmacologic ordered (on rivaroxaban)
[2024-07-05] MEDS: RIVAROXABAN 15 MG TABLET PO (18:18)
[2024-07-05] MEDS: FUROSEMIDE INJ 40 MG/4 ML VIAL 20 MG IV PUSH (18:18)
[2024-07-05] MEDS: REMDESIVIR 100 MG/NS 250 ML 100 MG/250 ML BAG 250 MG IVPB (21:58)
[2024-07-06] VITALS (12 sets, daily range): BP systolic 131–143; BP diastolic 52–63; PULSE 59–100; RESP 16–18; TEMP 36.3–36.6; O2SAT 91–95
[2024-07-06] MEDS: IPRATROPIUM 0.5 MG/ALBUTEROL SULFATE 2.5 MG AMPUL.NEB 3 ML INHALATION ×4 (03:35→20:14)
[2024-07-06 06:42] LABS: Basophils Percent Auto 0.2 % (0.2-1.2); Eosinophils Percent Auto 0.1 % (0-4.4); Hematocrit 31.3 % (37.0-47.0); Hemoglobin 10.3 g/dL (12.0-15.0); Immature Granulocyte Absolute 0.27 K/mm3 (0.00-0.031); Immature Granulocyte Percent A 1.4 % (0-0.5); Lymphocytes Absolute Auto 1.34 K/mm3 (0.9-3.2); Lymphocytes Percent Auto 6.8 % (18.3-44.2); Mean Corpuscular HGB Conc 32.9 g/dl (32-36); Mean Corpuscular Hemoglobin 30.8 pg (26-34); Mean Corpuscular Volume 93.7 fl (80-100); Mean Platelet Volume 8.5 fl (7.4-10.4); Monocytes Absolute Auto 1.4 K/mm3 (0.1-0.6); Monocytes Percent Auto 7.1 % (2.6-8.5); Neutrophils Absolute Auto 16.8 K/mm3 (1.3-6.7); Neutrophils Percent Auto 84.4 % (45.5-73.1); Platelet Count Result 441 k/mm3 (150-375); Red Blood Count 3.34 M/mm3 (4.2-5.4); White Blood Count 19.8 K/mm3 (4.5-10.0)
[2024-07-06 06:55] LABS: Alanine Aminotransferase 25 U/L (6-35); Albumin Level 2.8 g/dL (3.5-5.1); Alkaline Phosphatase 173 U/L (38-126); Anion Gap 4 mmol/L (4-12); Aspartate Amino Transferase 22 U/L (14-36); Bilirubin,Total 0.7 mg/dL (0.2-1.3); Blood Urea Nitrogen 22 mg/dL (7-17); Calcium 8.4 mg/dL (8.4-10.2); Carbon Dioxide 37 mmol/L (22-30); Chloride 94 mmol/L (98-107); Estimated CRCL calculation 55 ml/min; Estimated Glomerular Filt Rate > 60; Glucose 96 mg/dL (65-110); Potassium 4.6 mmol/L (3.4-5.0); Sodium 135 mmol/L (137-145)
[2024-07-06] MEDS: FLUTICASONE/SALMETEROL 45-21 MCG INHALER 1 PUFF 2 PUFF INHALATION ×2 (08:15→20:14)
[2024-07-06] MEDS: carvediloL 12.5 MG TABLET PO ×2 (09:07→20:43)
[2024-07-06] MEDS: guaiFENesin 12 HR 600 MG TABCR 1200 MG PO ×2 (09:07→20:43)
[2024-07-06] MEDS: LOSARTAN POTASSIUM 25 MG TABLET PO (09:07)
[2024-07-06] MEDS: cycloSPORINE 0.4 ML OPHTH SOLUTION 1 DROP EACH EYE ×2 (09:07→20:42)
[2024-07-06] MEDS: FAMOTIDINE 20 MG TABLET PO ×2 (09:07→20:43)
[2024-07-06] MEDS: TAMSULOSIN HCL 0.4 MG CAPSULE PO (09:08)
[2024-07-06] MEDS: FLECAINIDE ACETATE 50 MG TABLET 150 MG PO ×2 (09:08→20:42)
[2024-07-06] MEDS: CHOLECALCIFEROL 1,000 UNITS TABLET 1000 UNITS PO (09:08)
[2024-07-06] MEDS: dexAMETHasone 2 MG TABLET 6 MG PO (09:09)
[2024-07-06] MEDS: IRON SUCROSE COMPLEX 400 MG, IRON SUCROSE COMPLEX 100 MG in SODIUM CHLORIDE 0.9% IV 250 ML 78.57 MG IVPB (09:09)
[2024-07-06] MEDS: FUROSEMIDE INJ 40 MG/4 ML VIAL 20 MG IV PUSH ×2 (09:12→18:48)
[2024-07-06] MEDS: busPIRone HCL 10 MG TABLET 20 MG PO ×2 (09:14→12:30)
--- NOTE | 2024-07-06 10:12 | P.PNIM_ITS ---
Progress Note: A&P Assessment and Plan (1) Acute respiratory failure with hypoxia: Code(s): J96.01 - Acute respiratory failure with hypoxia Status: Acute (2) Pneumonia: Code(s): J18.9 - Pneumonia, unspecified organism Status: Acute (3) Heart failure of unknown type: Code(s): I50.9 - Heart failure, unspecified Status: Acute (4) Urinary retention: Code(s): R33.9 - Retention of urine, unspecified Status: Acute (5) Hyponatremia: Code(s): E87.1 - Hypo-osmolality and hyponatremia Status: Acute (6) Hyperglycemia: Code(s): R73.9 - Hyperglycemia, unspecified Status: Acute (7) Paroxysmal atrial fibrillation: Code(s): I48.0 - Paroxysmal atrial fibrillation Status: Chronic (8) Chronic anticoagulation: Code(s): Z79.01 - terminal operations supervisor (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) use of anticoagulants Status: Acute (9) Chronic obstructive pulmonary disease: Code(s): J44.9 - Chronic obstructive pulmonary disease, unspecified Status: Acute (10) Hypertension: Qualifiers: Hypertension type: unspecified Qualified Code(s): I10 - Essential (primary) hypertension Code(s): I10 - Essential (primary) hypertension Status: Acute (11) Anxiety: Code(s): F41.9 - Anxiety disorder, unspecified Status: Acute Plan Acute hypoxemic respiratory failure From pneumonia, COVID, COPD exacerbation Currently on 2 L oxygen Titrate with clinical course may require oxygen on discharge Pneumonia Chest x-ray showed bilateral pulmonary opacities, pneumonia versus pulmonary edema Blood and sputum cultures, MRSA CT chest ordered to rule out Pulm edema continue Rocephin and Azithromycin COPD exacerbation Continue Duoneb and Symbicort monitor Covid Continue Dexamethasone and Remdesivir monitor Hyponatremia Na 117 135 today Improved on diuretics, continue monitoring ECHO showed normal lV function continue Lasix monitor Iron deficiency anemia Isat 9, hb 9.4 started on Iron IV 900/1000 FOBT pending monitor Paroxysmal Afib Continue Xarelto Urinary retention On herrera, 1000cc drained in the ER on herrera insertion start tamsulosin voiding trial soon HTN titrate with home meds DVT prophylaxis on Xarelto Awaiting SNF placement Subjective Date/time seen: 07/06/24 10:12 Interval history: Comfortable at bedside awake and communicating comfortably PT/OT recommends SNF Review of Systems Review of Systems: 12 systems were reviewed and are negativ e except for as per HPI. Exam Narrative: General: alert and comfortable HEENT: Normocephalic, atraumatic. PERRL, EOMI. Sclerae anicteric. Oral mucosa moist. Neck: Supple. No significant jugular venous distention. Respiratory: Respirations are nonlabored and she is speaking in full sentences. Currently on 2 L nasal cannula. Lung sounds are coarse and crackly throughout with occasional wheezing. 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 Cardiovascular: Regular rate and rhythm. Soft murmur at the upper sternal border. Gastrointestinal: Abdomen is soft and nondistended with positive bowel sounds. Bladder feels distended and a Herrera catheter was placed yielding 1000 mL of urine within a short period of time. Skin: Warm and dry. Generalized pallor. Extremities: No cyanosis or clubbing. 2+ bilateral lower extremity edema to the knees. No palpable knots or cords. Neurological: Alert. Cranial nerves 2-12 are grossly intact. No gross focal d eficits to casual conversation. Objective Data Vital Signs Vital Signs: Vital Signs - 24 hr 07/05/24 12:00 07/05/24 12:00 07/05/24 12:18 Temperature 97.7 F Pulse Rate 60 60 60 Respiratory Rate 20 Blood Pressure 119/52 L Pulse Oximetry 92 Oxygen Delivery Oxygen Flow Rate 07/05/24 14:40 07/05/24 15:00 07/05/24 15:00 Temperature Pulse Rate 66 60 Respiratory Rate 20 20 Blood Pressure Pulse Oximetry Oxygen Delivery Nasal Cannula Oxygen Flow Rate 2 07/05/24 15:26 07/05/24 20:00 07/05/24 20:56 Temperature 98 F Pulse Rate 69 73 Respiratory Rate 18 Blood Pressure 119/48 L Pulse Oximetry 98 95 Oxygen Delivery Nasal Cannula Oxygen Flow Rate 2 07/05/24 20:57 07/05/24 21:10 07/05/24 21:10 Temperature Pulse Rate 73 60 Respiratory Rate 18 Blood Pressure Pulse Oximetry 96 Oxygen Delivery Nasal Cannula Oxygen Flow Rate 2 07/05/24 21:20 07/05/24 21:43 07/06/24 03:36 Temperature 97 F L Pulse Rate 62 61 64 Respiratory Rate 18 18 18 Blood Pressure 117/53 L Pulse Oximetry 96 Oxygen Delivery Oxygen Flow Rate 07/06/24 03:45 07/06/24 04:05 07/06/24 08:15 Temperature 97.8 F Pulse Rate 67 67 Respiratory Rate 18 18 18 Blood Pressure 143/63 H Pulse Oximetry 91 Oxygen Delivery Oxygen Flow Rate 07/06/24 09:07 07/06/24 09:08 07/06/24 09:12 Temperature Pulse Rate 100 100 Respiratory Rate Blood Pressure Pulse Oximetry Oxygen Delivery Nasal Cannula Oxygen Flow Rate 2 Intake/Output Intake/Output: Intake & Output 07/03/24 07/04/24 07/05/24 07/06/24 23:59 23:59 23:59 23:59 Intake Total 300 1080 970 160 Output Total 1000 3150 5 100 Balance -345 -5668 -8464 60 Meds/Results Medications: Active Medications Generic Name Dose Route Start Last Admin Trade Name Freq PRN Reason Stop Dose Admin Acetaminophen 650 mg 07/03/24 14:22 Acetaminophen 325 Mg Tablet PO Q4H PRN Mild Pain (1-3) or Fever Hydrocodone Bitart/Acetaminophen 1 tab 07/03/24 14:22 07/03/24 22:56 Hydrocodone/Acetaminophen (*Crx) 5-325 Mg Tablet PO 1 tab Q4H PRN Administration Pain Rated 4-6 Albuterol/Ipratropium 3 ml 07/04/24 20:00 07/06/24 08:15 Ipratropium 0.5 Mg/Albuterol Sulfate 2.5 Mg Ampul.Neb 3 Ml INHALATION 3 ml Q6HRT MARTIN Administration Amoxicillin/Clavulanate Potassium 1 tablet 07/06/24 12:00 Amoxicillin/Clavulanate K 875-125 Mg Tab PO 07/09/24 21:01 Q12HR MARTIN Azithromycin 500 mg 07/06/24 12:00 Azithromycin 250 Mg Tablet PO 07/07/24 09:01 DAILY MARTIN Buspirone HCl 20 mg 07/04/24 08:30 07/06/24 09:14 Buspirone Hcl 10 Mg Tablet PO 20 mg 0830,1330,1930 MARTIN Administration Carvedilol 12.5 mg 07/03/24 22:45 07/06/24 09:07 Carvedilol 12.5 Mg Tablet PO 12.5 mg Q12HR MARTIN Administration Cyclosporine 1 drop 07/03/24 22:45 07/06/24 09:07 Cyclosporine 0.4 Ml Ophth Solution EACH EYE 1 drop Q12HR MARTIN Administration Dexamethasone 6 mg 07/04/24 08:00 07/06/24 09:09 Dexamethasone 2 Mg Tablet PO 07/13/24 08:01 6 mg DAILY@0800 MARTIN Administration Dextrose 12.5 gm 07/03/24 22:44 Dextrose 50% 25 Gm/50 Ml Syringe IV PUSH PRN PRN Hypoglycemia Protocol Famotidine 20 mg 07/04/24 09:00 07/06/24 09:07 Famotidine 20 Mg Tablet PO 20 mg Q12HR MARTIN Administration Flecainide Acetate 150 mg 07/03/24 23:05 07/06/24 09:08 Flecainide Acetate 50 Mg Tablet PO 150 mg Q12HR MARTIN Administration Furosemide 20 mg 07/05/24 17:00 07/06/24 09:12 Furosemide Inj 40 Mg/4 Ml Vial IV PUSH 20 mg BID MARTIN Administration Glucagon 1 mg 07/03/24 22:44 Glucagon For Inj 1 Mg Vial IM PRN PRN Hypoglycemia Protocol Glucose 15 gm 07/03/24 22:44 Glucose Oral Gel 15 Gm Of Glucse In 37.5 Gm Tube PO PRN PRN Hypoglycemia Protocol Guaifenesin 1,200 mg 07/04/24 09:00 07/06/24 09:07 Guaifenesin 12 Hr 600 Mg Tabcr PO 1,200 mg Q12HR MARTIN Administration Dextrose 1,000 mls @ 100 mls/hr 07/03/24 22:44 Dextrose 5% 1,000 Ml IVPB PRN PRN Hypoglycemia Protocol Remdesivir 100 mg in 250 mls @ 250 mls/hr 07/04/24 22:00 07/05/24 21:58 IVPB 07/07/24 22:59 250 mls/hr Q24H MARTIN Administration Iron Sucrose 400 mg/ Iron 275 mls @ 78.571 mls/hr 07/06/24 08:00 07/06/24 09:09 Sucrose 100 mg/ Sodium IVPB 07/06/24 11:29 78.57 mls/hr Chloride ONCE ONE Administration Losartan Potassium 25 mg 07/04/24 09:00 07/06/24 09:07 Losartan Potassium 25 Mg Tablet PO 25 mg DAILY MARTIN Administration Perflutren Lipid Microsphere 0 ml 07/03/24 14:55 Perflutren Lipid Microspheres 1.5 Ml Vial Diluted To 10 Ml Total Volume IV PUSH 07/06/24 14:55 ONCE PRN adequate visualization Protocol Promethazine HCl 12.5 mg 07/03/24 14:22 Promethazine Hcl 25 Mg/Ml Ampul IV PUSH Q6H PRN Nausea Rivaroxaban 15 mg 07/03/24 22:50 07/05/24 18:18 Rivaroxaban 15 Mg Tablet PO 15 mg QPM MARTIN Administration Fluticasone/Salmeterol 2 puff 07/04/24 20:00 07/06/24 08:15 Fluticasone/Salmeterol 45-21 Mcg Inhaler 1 Puff INHALATION 2 puff Q12HRT MARTIN Administration Tamsulosin HCl 0.4 mg 07/04/24 16:20 07/06/24 09:08 Tamsulosin Hcl 0.4 Mg Capsule PO 0.4 mg QAM MARTIN Administration Vitamin D 1,000 units 07/04/24 09:00 07/06/24 09:08 Cholecalciferol 1,000 Units Tablet PO 1,000 units DAILY MARTIN Administration Radiology Results: ITS Impressions Chest X-Ray 07/03/24 12:53 Impression: 1: Significant progression of bilateral airspace disease, consistent with pneumonia. Pulmonary edema is the differential diagnosis. Venous Doppler Study 07/04/24 08:14 IMPRESSION: 1: No lower extremity deep venous thrombosis. Chest CT 07/04/24 17:38 IMPRESSION: 1. Diffuse lung disease, consistent with pulmonary edema versus pneumonia. 2. Small pleural effusions. 3. Thyroid nodule. Consider thyroid ultrasound for risk stratification if clinically indicated given the patient's age and comorbidities. Labs Labs: Laboratory Results - last 24 hr 07/03/24 07/03/24 07/06/24 18:49 19:20 06:10 WBC 19.8 H RBC 3.34 L Hgb 10.3 L Hct 31.3 L MCV 93.7 MCH 30.8 MCHC 32.9 RDW 14.0 Plt Count 441 H MPV 8.5 Immature Gran % (Auto) 1.4 H Neut % (Auto) 84.4 H Lymph % (Auto) 6.8 L [place] % (Auto) 7.1 Eos % (Auto) 0.1 Baso % (Auto) 0.2 Lymph # (Auto) 1.34 [place] # (Auto) 1.4 H Eos # (Auto) 0.0 Baso # (Auto) 0.0 Abs Immat Gran (auto) 0.27 H Absolute Neuts (auto) 16.8 H Absolute Nucleated RBC 0.000 Nucleated RBC % 0.0 Sodium 135 L Potassium 4.6 Chloride 94 L Carbon Dioxide 37 H Anion Gap 4 BUN 22 H Creatinine 0.62 L Estim Creat Clear Calc 55 Estimated GFR > 60 Glucose 96 Serum Osmolality 247 L Calcium 8.4 Magnesium 2.0 Total Bilirubin 0.7 AST 22 ALT 25 Alkaline Phosphatase 173 H Total Protein 6.0 L Albumin 2.8 L Urine Osmolality 275 Quality VTE Prophylaxis VTE prophylaxis: pharmacologic ordered (on rivaroxaban)
[2024-07-06] MEDS: AZITHROMYCIN 250 MG TABLET 500 MG PO (12:28)
[2024-07-06] MEDS: AMOXICILLIN/CLAVULANATE K 875-125 MG TAB 1 TABLET PO ×2 (12:28→20:42)
[2024-07-06 15:43] LABS: Pneumococcal Antigen Urine NOT DETECTED
[2024-07-06] MEDS: RIVAROXABAN 15 MG TABLET PO (18:48)
[2024-07-06] MEDS: REMDESIVIR 100 MG/NS 250 ML 100 MG/250 ML BAG 250 MG IVPB (20:59)
[2024-07-07] VITALS (15 sets, daily range): BP systolic 95–147; BP diastolic 44–66; PULSE 60–68; RESP 18–20; TEMP 36.2–36.7; O2SAT 92–99
[2024-07-07] MEDS: IPRATROPIUM 0.5 MG/ALBUTEROL SULFATE 2.5 MG AMPUL.NEB 3 ML INHALATION ×4 (03:29→21:24)
[2024-07-07 06:33] LABS: Basophils Percent Auto 0.2 % (0.2-1.2); Hemoglobin 10.1 g/dL (12.0-15.0); Immature Granulocyte Absolute 0.26 K/mm3 (0.00-0.031); Immature Granulocyte Percent A 1.3 % (0-0.5); Lymphocytes Absolute Auto 1.51 K/mm3 (0.9-3.2); Lymphocytes Percent Auto 7.7 % (18.3-44.2); Mean Corpuscular HGB Conc 32.6 g/dl (32-36); Mean Corpuscular Hemoglobin 30.6 pg (26-34); Mean Corpuscular Volume 93.9 fl (80-100); Mean Platelet Volume 8.5 fl (7.4-10.4); Monocytes Absolute Auto 1.2 K/mm3 (0.1-0.6); Monocytes Percent Auto 6.1 % (2.6-8.5); Neutrophils Absolute Auto 16.7 K/mm3 (1.3-6.7); Neutrophils Percent Auto 84.7 % (45.5-73.1); Platelet Count Result 457 k/mm3 (150-375); Red Cell Distribution Width 14.3 % (11.5-14.5); White Blood Count 19.7 K/mm3 (4.5-10.0)
[2024-07-07 06:41] LABS: INR 3.6; Prothrombin Time 36.3 Seconds (11.1-14.7)
[2024-07-07 06:48] LABS: Alanine Aminotransferase 24 U/L (6-35); Albumin Level 2.7 g/dL (3.5-5.1); Alkaline Phosphatase 161 U/L (38-126); Anion Gap 4 mmol/L (4-12); Aspartate Amino Transferase 23 U/L (14-36); Bilirubin,Total 0.7 mg/dL (0.2-1.3); Blood Urea Nitrogen 31 mg/dL (7-17); Calcium 8.4 mg/dL (8.4-10.2); Carbon Dioxide 36 mmol/L (22-30); Chloride 92 mmol/L (98-107); Estimated CRCL calculation 51 ml/min; Estimated Glomerular Filt Rate > 60; Glucose 109 mg/dL (65-110); Potassium 4.8 mmol/L (3.4-5.0); Sodium 132 mmol/L (137-145)
[2024-07-07] MEDS: FLUTICASONE/SALMETEROL 45-21 MCG INHALER 1 PUFF 2 PUFF INHALATION ×2 (07:53→21:24)
[2024-07-07] MEDS: CHOLECALCIFEROL 1,000 UNITS TABLET 1000 UNITS PO (08:42)
[2024-07-07] MEDS: AZITHROMYCIN 250 MG TABLET 500 MG PO (08:42)
[2024-07-07] MEDS: FLECAINIDE ACETATE 50 MG TABLET 150 MG PO ×2 (08:42→20:48)
[2024-07-07] MEDS: TAMSULOSIN HCL 0.4 MG CAPSULE PO (08:42)
[2024-07-07] MEDS: FUROSEMIDE INJ 40 MG/4 ML VIAL 20 MG IV PUSH ×3 (08:42→17:40)
[2024-07-07] MEDS: FAMOTIDINE 20 MG TABLET PO ×2 (08:42→20:49)
[2024-07-07] MEDS: dexAMETHasone 2 MG TABLET 6 MG PO (08:42)
[2024-07-07] MEDS: guaiFENesin 12 HR 600 MG TABCR 1200 MG PO ×2 (08:42→20:49)
[2024-07-07] MEDS: AMOXICILLIN/CLAVULANATE K 875-125 MG TAB 1 TABLET PO ×2 (08:44→20:49)
[2024-07-07] MEDS: cycloSPORINE 0.4 ML OPHTH SOLUTION 1 DROP EACH EYE ×2 (08:44→20:49)
[2024-07-07] MEDS: LOSARTAN POTASSIUM 25 MG TABLET PO (08:44)
[2024-07-07] MEDS: carvediloL 12.5 MG TABLET PO ×2 (08:44→20:49)
[2024-07-07] MEDS: busPIRone HCL 10 MG TABLET 20 MG PO ×3 (08:48→20:53)
[2024-07-07] MEDS: IRON SUCROSE COMPLEX 100 MG in SODIUM CHLORIDE 0.9% IV 50 ML 220 MG IVPB (09:09)
[2024-07-07 10:34] LABS: Alveolar/Arterial O2 Gradient 45.3 mmHg; Base Excess ABG 7.1 mEq/l (+/-2.0); Fractional Inspired Oxygen 24 %; HCO3 ABG 31.7 mEq/l (22.0-26.0); Oxygen Content ABG 14.5 %vol (16.0-22.0); Oxygen Saturation ABG 95.1 % (95.0-100.0); PCO2 ABG 45.4 mmHg (35.0-45.0); PO2 ABG 71.8 mmHg (80.0-100.0); PO2 FiO2 Ratio Arterial Blood 2.99 %; Total Hemoglobin 10.9 g/dL (12.0-18.0); pH ABG 7.462 (7.350-7.450)
[2024-07-07 10:35] LABS: Device NASAL CANNULA; Modified Allen's Test Pass; Site Drawn LEFT RADIAL
--- NOTE | 2024-07-07 11:06 | P.PNIM_ITS ---
Progress Note: A&P Assessment and Plan (1) Acute respiratory failure with hypoxia: Code(s): J96.01 - Acute respiratory failure with hypoxia Status: Acute (2) Pneumonia: Code(s): J18.9 - Pneumonia, unspecified organism Status: Acute (3) Heart failure of unknown type: Code(s): I50.9 - Heart failure, unspecified Status: Acute (4) Urinary retention: Code(s): R33.9 - Retention of urine, unspecified Status: Acute (5) Hyponatremia: Code(s): E87.1 - Hypo-osmolality and hyponatremia Status: Acute (6) Hyperglycemia: Code(s): R73.9 - Hyperglycemia, unspecified Status: Acute (7) Paroxysmal atrial fibrillation: Code(s): I48.0 - Paroxysmal atrial fibrillation Status: Chronic (8) Chronic anticoagulation: Code(s): Z79.01 - termination clerk (current) use of anticoagulants Status: Acute (9) Chronic obstructive pulmonary disease: Code(s): J44.9 - Chronic obstructive pulmonary disease, unspecified Status: Acute (10) Hypertension: Qualifiers: Hypertension type: unspecified Qualified Code(s): I10 - Essential (primary) hypertension Code(s): I10 - Essential (primary) hypertension Status: Acute (11) Anxiety: Code(s): F41.9 - Anxiety disorder, unspecified Status: Acute Plan Acute hypoxemic respiratory failure From pneumonia, COVID, COPD exacerbation Currently on 2 L oxygen, no oxygen at baseline Titrate with clinical course may require oxygen on discharge Pneumonia Chest x-ray showed bilateral pulmonary opacities, pneumonia versus pulmonary edema Blood and sputum cultures, MRSA negative CT chest showed Pulm edema vs Pneumonia Completing Abx regimen on Augmentin and Azithromycin COPD exacerbation Continue Duoneb and Symbicort monitor Covid Continue Dexamethasone and Remdesivir monitor Hyponatremia Na 117 132 today Improved on diuretics, continue monitoring ECHO showed normal LV function continue Lasix monitor Iron deficiency anemia Isat 9, hb 9.4 started on Iron IV 1000/1000 FOBT pending monitor Paroxysmal Afib Continue Xarelto Urinary retention On herrera, 1000cc drained in the ER on herrera insertion start tamsulosin voiding trial soon HTN titrate with home meds DVT prophylaxis on Xarelto Awaiting SNF placement Subjective Date/time seen: 07/07/24 11:06 Interval history: noted she still SOB, cXR showed interval improvement PT/OT recommends SNF Review of Systems Review of Systems: 12 systems were reviewed and are negativ e except for as per HPI. Exam Narrative: General: alert and comfortable HEENT: Normocephalic, atraumatic. PERRL, EOMI. Sclerae anicteric. Oral mucosa moist. Neck: Supple. No significant jugular venous distention. Respiratory: Respirations are nonlabored and she is speaking in full sentences. Currently on 2 L nasal cannula. Lung sounds are coarse and crackly throughout with occasional wheezing. 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 Cardiovascular: Regular rate and rhythm. Soft murmur at the upper sternal border. Gastrointestinal: Abdomen is soft and nondistended with positive bowel sounds. Bladder feels distended and a Herrera catheter was placed yielding 1000 mL of urine within a short period of time. Skin: Warm and dry. Generalized pallor. Extremities: No cyanosis or clubbing. 2+ bilateral lower extremity edema to the knees. No palpable knots or cords. Neurological: Alert. Cranial nerves 2-12 are grossly intact. No gross focal deficits to casual conversation. Objective Data Vital Signs Vital Signs: Vital Signs - 24 hr 07/06/24 14:19 07/06/24 14:28 07/06/24 16:00 Temperature 97.7 F Pulse Rate 62 60 60 Respiratory Rate 18 18 16 Blood Pressure 132/59 L Pulse Oximetry 94 Oxygen Delivery Oxygen Flow Rate Fraction of Inspired Oxygen 07/06/24 20:00 07/06/24 21:38 07/07/24 03:29 Temperature 97.3 F L Pulse Rate 59 L 60 Respiratory Rate 16 18 Blood Pressure 131/52 L Pulse Oximetry 94 93 Oxygen Delivery Nasal Cannula Oxygen Flow Rate 2 Fraction of Inspired Oxygen 07/07/24 03:36 07/07/24 06:00 07/07/24 07:42 Temperature 97.8 F Pulse Rate 63 65 Respiratory Rate 18 18 Blood Pressure 147/66 H Pulse Oximetry 96 94 Oxygen Delivery Nasal Cannula Oxygen Flow Rate 1 Fraction of Inspired Oxygen 24 07/07/24 07:42 07/07/24 07:53 07/07/24 08:42 Temperature Pulse Rate 60 63 67 Respiratory Rate 20 20 Blood Pressure Pulse Oximetry Oxygen Delivery Oxygen Flow Rate Fraction of Inspired Oxygen 07/07/24 08:42 07/07/24 08:44 Temperature Pulse Rate 67 Respiratory Rate Blood Pressure Pulse Oximetry 92 Oxygen Delivery Nasal Cannula Oxygen Flow Rate 2 Fraction of Inspired Oxygen Intake/Output Intake/Output: Intake & Output 07/04/24 07/05/24 07/06/24 07/07/24 23:59 23:59 23:59 23:59 Intake Total 1080 1220 1645 600 Output Total 3150 2025 3700 1500 Balance -8858 -355 -4448 -900 Meds/Results Medications: Active Medications Generic Name Dose Route Start Last Admin Trade Name Freq PRN Reason Stop Dose Admin Acetaminophen 650 mg 07/03/24 14:22 Acetaminophen 325 Mg Tablet PO Q4H PRN Mild Pain (1-3) or Fever Hydrocodone Bitart/Acetaminophen 1 tab 07/03/24 14:22 07/03/24 22:56 Hydrocodone/Acetaminophen (*Crx) 5-325 Mg Tablet PO 1 tab Q4H PRN Administration Pain Rated 4-6 Albuterol/Ipratropium 3 ml 07/04/24 20:00 07/07/24 07:42 Ipratropium 0.5 Mg/Albuterol Sulfate 2.5 Mg Ampul.Neb 3 Ml INHALATION 3 ml Q6HRT MARTIN Administration Amoxicillin/Clavulanate Potassium 1 tablet 07/06/24 12:00 07/07/24 08:44 Amoxicillin/Clavulanate K 875-125 Mg Tab PO 07/09/24 21:01 1 tablet Q12HR MARTIN Administration Buspirone HCl 20 mg 07/06/24 21:00 07/07/24 08:48 Buspirone Hcl 10 Mg Tablet PO 20 mg 0900,1500,2100 MARTIN Administration Carvedilol 12.5 mg 07/03/24 22:45 07/07/24 08:44 Carvedilol 12.5 Mg Tablet PO 12.5 mg Q12HR MARTIN Administration Cyclosporine 1 drop 07/03/24 22:45 07/07/24 08:44 Cyclosporine 0.4 Ml Ophth Solution EACH EYE 1 drop Q12HR MARTIN Administration Dexamethasone 6 mg 07/04/24 08:00 07/07/24 08:42 Dexamethasone 2 Mg Tablet PO 07/13/24 08:01 6 mg DAILY@0800 MARTIN Administration Dextrose 12.5 gm 07/03/24 22:44 Dextrose 50% 25 Gm/50 Ml Syringe IV PUSH PRN PRN Hypoglycemia Protocol Famotidine 20 mg 07/04/24 09:00 07/07/24 08:42 Famotidine 20 Mg Tablet PO 20 mg Q12HR MARTIN Administration Flecainide Acetate 150 mg 07/03/24 23:05 07/07/24 08:42 Flecainide Acetate 50 Mg Tablet PO 150 mg Q12HR MARTIN Administration Furosemide 20 mg 07/05/24 17:00 07/07/24 08:42 Furosemide Inj 40 Mg/4 Ml Vial IV PUSH 20 mg BID MARTIN Administration Furosemide 20 mg 07/07/24 11:06 Furosemide Inj 40 Mg/4 Ml Vial IV PUSH 07/07/24 11:07 ONCE ONE Glucagon 1 mg 07/03/24 22:44 Glucagon For Inj 1 Mg Vial IM PRN PRN Hypoglycemia Protocol Glucose 15 gm 07/03/24 22:44 Glucose Oral Gel 15 Gm Of Glucse In 37.5 Gm Tube PO PRN PRN Hypoglycemia Protocol Guaifenesin 1,200 mg 07/04/24 09:00 07/07/24 08:42 Guaifenesin 12 Hr 600 Mg Tabcr PO 1,200 mg Q12HR MARTIN Administration Dextrose 1,000 mls @ 100 mls/hr 07/03/24 22:44 Dextrose 5% 1,000 Ml IVPB PRN PRN Hypoglycemia Protocol Remdesivir 100 mg in 250 mls @ 250 mls/hr 07/04/24 22:00 07/06/24 21:59 IVPB 07/07/24 22:59 Infused Q24H MARTIN Infusion Losartan Potassium 25 mg 07/04/24 09:00 07/07/24 08:44 Losartan Potassium 25 Mg Tablet PO 25 mg DAILY MARTIN Administration Promethazine HCl 12.5 mg 07/03/24 14:22 Promethazine Hcl 25 Mg/Ml Ampul IV PUSH Q6H PRN Nausea Rivaroxaban 15 mg 07/03/24 22:50 07/06/24 18:48 Rivaroxaban 15 Mg Tablet PO 15 mg QPM MARTIN Administration Fluticasone/Salmeterol 2 puff 07/04/24 20:00 07/07/24 07:53 Fluticasone/Salmeterol 45-21 Mcg Inhaler 1 Puff INHALATION 2 puff Q12HRT MARTIN Administration Tamsulosin HCl 0.4 mg 07/04/24 16:20 07/07/24 08:42 Tamsulosin Hcl 0.4 Mg Capsule PO 0.4 mg QAM MARTIN Administration Vitamin D 1,000 units 07/04/24 09:00 07/07/24 08:42 Cholecalciferol 1,000 Units Tablet PO 1,000 units DAILY MARTIN Administration Radiology Results: ITS Impressions Venous Doppler Study 07/04/24 08:14 IMPRESSION: 1: No lower extremity deep venous thrombosis. Chest CT 07/04/24 17:38 IMPRESSION: 1. Diffuse lung disease, consistent with pulmonary edema versus pneumonia. 2. Small pleural effusions. 3. Thyroid nodule. Consider thyroid ultrasound for risk stratification if clinically indicated given the patient's age and comorbidities. Chest X-Ray 07/07/24 10:26 IMPRESSION: 1. Diffuse lung disease with interval improvement, consistent with pulmonary edema versus pneumonia. 2. Stable small pleural effusions. Labs Labs: Laboratory Results - last 24 hr 07/03/24 07/07/24 07/07/24 19:20 05:59 10:30 WBC 19.7 H RBC 3.30 L Hgb 10.1 L Hct 31.0 L MCV 93.9 MCH 30.6 MCHC 32.6 RDW 14.3 Plt Count 457 H MPV 8.5 Immature Gran % (Auto) 1.3 H Neut % (Auto) 84.7 H Lymph % (Auto) 7.7 L [place] % (Auto) 6.1 Eos % (Auto) 0.0 Baso % (Auto) 0.2 Lymph # (Auto) 1.51 [place] # (Auto) 1.2 H Eos # (Auto) 0.0 Baso # (Auto) 0.0 Abs Immat Gran (auto) 0.26 H Absolute Neuts (auto) 16.7 H Absolute Nucleated RBC 0.000 Nucleated RBC % 0.0 PT 36.3 H D INR 3.6 Puncture Site Left radial ABG pH 7.462 H ABG pCO2 45.4 H ABG pO2 71.8 L ABG PO2/FiO2 Ratio 2.99 ABG HCO3 31.7 H ABG O2 Saturation 95.1 ABG O2 Content 14.5 L ABG Base Excess 7.1 A-a Gradient 45.3 Oxyhemoglobin 94.0 Total Hemoglobin 10.9 L O2 Delivery Device Nasal cannula O2 Liters/Min 1.0 FiO2 24 Sodium 132 L Potassium 4.8 Chloride 92 L Carbon Dioxide 36 H Anion Gap 4 BUN 31 H Creatinine 0.67 L Estim Creat Clear Calc 51 Estimated GFR > 60 Glucose 109 Calcium 8.4 Magnesium 2.0 Total Bilirubin 0.7 Direct Bilirubin 0.0 AST 23 ALT 24 Alkaline Phosphatase 161 H Total Protein 6.0 L Albumin 2.7 L Urine Pneumococcal Ag Not detected Quality VTE Prophylaxis VTE prophylaxis: pharmacologic ordered (on rivaroxaban)
[2024-07-07] MEDS: RIVAROXABAN 15 MG TABLET PO (17:40)
[2024-07-07] MEDS: REMDESIVIR 100 MG/NS 250 ML 100 MG/250 ML BAG 250 MG IVPB (20:49)
[2024-07-08] VITALS (7 sets, daily range): BP systolic 157; BP diastolic 58; PULSE 58–70; RESP 18–20; TEMP 36.1; O2SAT 98–99
[2024-07-08] MEDS: IPRATROPIUM 0.5 MG/ALBUTEROL SULFATE 2.5 MG AMPUL.NEB 3 ML INHALATION ×2 (03:01→08:19)
[2024-07-08 05:52] LABS: Basophils Percent Auto 0.1 % (0.2-1.2); Eosinophils Percent Auto 0.1 % (0-4.4); Hematocrit 31.7 % (37.0-47.0); Hemoglobin 10.3 g/dL (12.0-15.0); Immature Granulocyte Absolute 0.32 K/mm3 (0.00-0.031); Immature Granulocyte Percent A 1.8 % (0-0.5); Lymphocytes Absolute Auto 1.76 K/mm3 (0.9-3.2); Lymphocytes Percent Auto 9.7 % (18.3-44.2); Mean Corpuscular HGB Conc 32.5 g/dl (32-36); Mean Corpuscular Hemoglobin 30.1 pg (26-34); Mean Corpuscular Volume 92.7 fl (80-100); Monocytes Absolute Auto 1.3 K/mm3 (0.1-0.6); Monocytes Percent Auto 6.9 % (2.6-8.5); Neutrophils Absolute Auto 14.7 K/mm3 (1.3-6.7); Neutrophils Percent Auto 81.4 % (45.5-73.1); Platelet Count Result 458 k/mm3 (150-375); Red Blood Count 3.42 M/mm3 (4.2-5.4); Red Cell Distribution Width 14.3 % (11.5-14.5); White Blood Count 18.1 K/mm3 (4.5-10.0)
[2024-07-08 06:04] LABS: Alanine Aminotransferase 25 U/L (6-35); Albumin Level 2.8 g/dL (3.5-5.1); Alkaline Phosphatase 158 U/L (38-126); Anion Gap 4 mmol/L (4-12); Aspartate Amino Transferase 23 U/L (14-36); Bilirubin,Total 0.7 mg/dL (0.2-1.3); Blood Urea Nitrogen 36 mg/dL (7-17); Calcium 8.4 mg/dL (8.4-10.2); Carbon Dioxide 37 mmol/L (22-30); Chloride 91 mmol/L (98-107); Estimated CRCL calculation 47 ml/min; Estimated Glomerular Filt Rate > 60; Glucose 110 mg/dL (65-110); Magnesium 2.1 mg/dL (1.6-2.3); Potassium 4.3 mmol/L (3.4-5.0); Sodium 132 mmol/L (137-145)
[2024-07-08] MEDS: FLUTICASONE/SALMETEROL 45-21 MCG INHALER 1 PUFF 2 PUFF INHALATION (08:19)
[2024-07-08] MEDS: dexAMETHasone 2 MG TABLET 6 MG PO (08:48)
[2024-07-08] MEDS: carvediloL 12.5 MG TABLET PO (08:48)
[2024-07-08] MEDS: CHOLECALCIFEROL 1,000 UNITS TABLET 1000 UNITS PO (08:51)
[2024-07-08] MEDS: FAMOTIDINE 20 MG TABLET PO (08:51)
[2024-07-08] MEDS: guaiFENesin 12 HR 600 MG TABCR 1200 MG PO (08:51)
[2024-07-08] MEDS: FLECAINIDE ACETATE 50 MG TABLET 150 MG PO (08:51)
[2024-07-08] MEDS: AMOXICILLIN/CLAVULANATE K 875-125 MG TAB 1 TABLET PO (08:51)
[2024-07-08] MEDS: LOSARTAN POTASSIUM 25 MG TABLET PO (08:52)
[2024-07-08] MEDS: FUROSEMIDE INJ 40 MG/4 ML VIAL 20 MG IV PUSH (08:52)
[2024-07-08] MEDS: cycloSPORINE 0.4 ML OPHTH SOLUTION 1 DROP EACH EYE (08:52)
[2024-07-08] MEDS: TAMSULOSIN HCL 0.4 MG CAPSULE PO (08:52)
[2024-07-08] MEDS: busPIRone HCL 10 MG TABLET 20 MG PO (08:58)
--- NOTE | 2024-07-08 09:00 | PC.NURSE ---
RN spoke with infectious disease nurse Mireille and patient no longer needs to be on isolation.
--- NOTE | 2024-07-08 12:48 | PM.DS ---
DS: Admitting Diagnosis Discharge Date 07/08/24 Admitting Diagnosis SOB DS: Discharge Diagnosis Discharge Diagnosis (1) Atrial fibrillation with rapid ventricular response: Code(s): I48.91 - Unspecified atrial fibrillation Status: Acute (2) Hyponatremia: Code(s): E87.1 - Hypo-osmolality and hyponatremia Status: Acute (3) COVID-19: Code(s): U07.1 - COVID-19 Status: Acute (4) COPD (chronic obstructive pulmonary disease): Qualifiers: COPD type: unspecified COPD Qualified Code(s): J44.9 - Chronic obstructive pulmonary disease, unspecified Code(s): J44.9 - Chronic obstructive pulmonary disease, unspecified Status: Chronic (5) Acute respiratory failure with hypoxia: Code(s): J96.01 - Acute respiratory failure with hypoxia Status: Acute (6) Pneumonia: Code(s): J18.9 - Pneumonia, unspecified organism Status: Acute DS: Summary Hospital Course Hospital Course: This is a very pleasant 83-year-old female with paroxysmal atrial fibrillation, diastolic dysfunction, hypertension, chronic obstructive pulmonary disease reportedly due to significant secondhand smoke exposure, chronic hyponatremia, and anxiety presented to the emergency department for evaluation of shortness of breath. She has not been feeling well for upwards of 10 days and she tested positive for COVID about 1 week ago. Unfortunately she is not feeling any better and she continues to have an intermittently productive cough and shortness of breath. Over the last several days she has developed lower extremity edema and orthopnea. She denies fever, chest pain, pleuritic pain, palpitations, nausea, vomiting, calf pain, syncope, and near syncope. In the ED: She was afebrile on arrival with an SpO2 of 94% on 2 L. labs are significant for WBC count 16.0, hemoglobin 10.9, sodium 116, chloride 81, BUN 11, creatinine 0.46, glucose 142, proBNP 1120, troponin less than 0.012. Chest x-ray shows significant progression of bilateral airspace disease consistent with pneumonia with pulmonary embolism in the differential diagnoses. She was started on azithromycin and ceftriaxone received furosemide 40 mg IV. She is being admitted in this setting for further treatment and evaluation. Patient was managed for Covid with Remdesivir adn Dexamethasone, discharge on Dexamethasone to complete a total of 10 days. Also managed for Pneumonia and discharged on one more day of Agumentin to complete a total of 7 days. Also managed for COPD exacerbation and discharged on Symbicort and Combivent. Patient was hyponatremic silvina dmission with NA 117 and it improved with lasix even though ECHO showed normal exam Also she had lower extremities edema, again ECHO was normal and patient did benefit from diuresis. Thus she was discharged on Lasix 20mg daily and will contineu follow up with PCP. she was weaned successfully to room air, and discharged hoem with outaptient PT/OT Also had urinary retention on admission however resolved on Tamsulosin and patient was weaned off Tolbert, thus discharged on Tamsulosin. Continue follow up with PCP. F/u with PCP in 3-5 days Time Spent with Patient Time attestation: Total time spent providing and/or coordinating discharge services: DS: Data Data Completed and Pending Labs on day of discharge: Labs from last 24 hours 07/08/24 05:33 WBC 18.1 H RBC 3.42 L Hgb 10.3 L Hct 31.7 L MCV 92.7 MCH 30.1 MCHC 32.5 RDW 14.3 Plt Count 458 H MPV 8.0 Immature Gran % (Auto) 1.8 H Neut % (Auto) 81.4 H Lymph % (Auto) 9.7 L Sargent % (Auto) 6.9 Eos % (Auto) 0.1 Baso % (Auto) 0.1 L Lymph # (Auto) 1.76 Sargent # (Auto) 1.3 H Eos # (Auto) 0.0 Baso # (Auto) 0.0 Abs Immat Gran (auto) 0.32 H Absolute Neuts (auto) 14.7 H Absolute Nucleated RBC 0.000 Nucleated RBC % 0.0 Sodium 132 L Potassium 4.3 Chloride 91 L Carbon Dioxide 37 H Anion Gap 4 BUN 36 H Creatinine 0.84 Estim Creat Clear Calc 47 Estimated GFR > 60 Glucose 110 Calcium 8.4 Magnesium 2.1 Total Bilirubin 0.7 AST 23 ALT 25 Alkaline Phosphatase 158 H Total Protein 6.0 L Albumin 2.8 L Preliminary micro results at discharge 07/03/24 15:35 Blood Culture - Preliminary Blood 07/03/24 14:44 Blood Culture - Preliminary Blood Discharge Plan Discharge Attending physician on discharge: Scarlett Zapien Discharging Clinician: Scarlett Zapien Anticipated Discharge Date/Time: 07/08/24 12:43 Patient Disposition: Home, Self-Care Activity: as tolerated Diet: heart healthy Patient Instructions: Antibiotic Form, Rivaroxaban (By mouth), Pulmonary Edema (GEN), Pneumonia (GEN), Blood Thinners (DC), Blood Thinners (GEN), COVID-19 (Coronavirus Disease 2019) (DC), COVID-19 and Chronic Health Conditions (DC), Face Coverings (Masks) and COVID-19 (GEN) Patient Language: Macedonian Stand Alone Forms: General Discharge Information Follow-up/Referrals: UNKNOWN,DOCTOR [Primary Care Provider] - (F/u with PCP in 3-5 days ) Discharge Medications: New dexamethasone 2 mg Tablet 6 mg PO DAILY@0800 5 Days Qty: 15 0RF tamsulosin 0.4 mg Capsule 0.4 mg PO QAM 30 Days Qty: 30 0RF amoxicillin-pot clavulanate 875-125 mg tablet 1 tablet PO Q12H 1 Days Qty: 3 0RF fluticasone propion-salmeterol [Advair HFA] 45-21 mcg/actuation Hfa Aerosol Inhaler 2 puff inhalation Q12HRT Qty: 12 2RF furosemide [Lasix] 20 mg tablet 20 mg PO DAILY 30 Days Qty: 30 0RF Combivent Respimat 20-100 mcg/actuation mist 1 puff inhalation Q4H PRN (Reason: shortness of breath or wheezing) Qty: 4 2RF Continued cholecalciferol (vitamin D3) 25 mcg (1,000 unit) capsule 1,000 unit PO DAILY carvedilol [Coreg] 25 mg tablet 12.5 mg PO Q12H Rx Instructions: must administer with a meal/food flecainide 150 mg tablet 150 mg PO Q12H ketoconazole 2 % cream 1 applic topical BID losartan 25 mg tablet 25 mg PO DAILY Restasis MultiDose 0.05 % drops 1 drp EACH EYE Q12H famotidine 20 mg Tablet 20 mg PO Q12HR Qty: 60 0RF Xarelto 15 mg tablet 15 mg PO QPM buspirone 10 mg tablet 20 mg PO 0830,1330,1930 hydralazine 50 mg tablet 50 mg PO ONCE PRN (Reason: Hypertension) Date of admission: 07/03/24 15:26 Primary Care Provider: UNKNOWN,DOCTOR Admitting Provider: Scarlett Zapien Attending physician on admission: Scarlett Zapien Condition: Stable
[2024-07-08 18:08] LABS: Mycoplasma IgM Antibody Titer 159 U/mL
[2024-07-08 18:08] LABS: Mycoplasma IgM Antibody Titer 175 U/mL
[2024-07-13 20:29] LABS: Legionella pneumophila Ag Ur NOT DETECTED
== END 2024-07-08 14:45 | disposition home or self-care (01) | DRG 177 ==
LOC: ANHED 14:44 → ANHIMU 15:00 → ANH3MED 07-05 23:17
PROVIDERS: Physician Assistant; Admitting Provider Internal Medicine; Emergency Provider Emergency Medicine; Visit Provider Internal Medicine
DX: U07.1 COVID-19 (principal); J18.9 Pneumonia, unspecified organism; J96.01 Acute respiratory failure with hypoxia; E87.1 Hypo-osmolality and hyponatremia; J44.1 Chronic obstructive pulmonary disease with (acute) exacerbation; I48.0 Paroxysmal atrial fibrillation; F41.9 Anxiety disorder, unspecified; R33.9 Retention of urine, unspecified; Z79.01 Long term (current) use of anticoagulants; Z95.0 Presence of cardiac pacemaker; E78.5 Hyperlipidemia, unspecified; Z86.73 Personal history of transient ischemic attack (TIA), and cerebral infarction without residual deficits; Z90.49 Acquired absence of other specified parts of digestive tract; I11.0 Hypertensive heart disease with heart failure; I50.9 Heart failure, unspecified; D50.9 Iron deficiency anemia, unspecified
CPT/HCPCS: 36415; 36600; 71045; 71046; 71250; 80048; 80053; 80076; 82248; 82570; 82728; 82805; 83540; 83550; 83605; 83615; 83690; 83735; 83880; 83930; 83935; 84295; 84300; 84443; 84484; 84540; 85018; 85025; 85610; 85730; 86140; 86738; 87040; 87070; 87205; 87449; 87637; 87641; 87899; 93005; 93306; 93970; 94640; 96365; 96368; 96375; 97161; 97165; 97530; 97535; 99285; A9270; G0378; J0248; J0456; J0696; J1756; J1940; J7050; J8540

== ENCOUNTER 2024-07-26 09:40 | Inpatient (IN) | payer MEDICARE, OTHER, SELFPAY ==
[2024-07-26] VITALS (27 sets, daily range): BP systolic 78–133; BP diastolic 33–93; PULSE 60–78; RESP 16–26; TEMP 36.4–37.3; O2SAT 87–100; BMI 25.8
--- NOTE | ~2024-07-26 | XR_ITS ---
EXAMINATION: XR chest 1V portable DATE: 07/26/2024 10:14 INDICATION: Weakness. TECHNIQUE: A single frontal view of the chest was obtained. COMPARISON: Chest single view 07/07/2024, chest CT 07/04/2024 FINDINGS: There is scarring at the lung apices. There is a diffuse interstitial pattern in the lungs. There are airspace opacities in the lower lung zones, right worse than left. There is a small left p leural effusion. No pneumothorax. The heart size is normal. There is a right chest wall pacer with le ads in the right atrium and right ventricle. IMPRESSION: 1. Diffuse lung disease with improvement from 07/07/2024, consistent with pulmonary edema versus pneum onia. 2. Small left pleural effusion. Reviewed, dictated and finalized at location [facility]. IMPRESSION: 1. Diffuse lung disease with improvement from 07/07/2024, consistent with pulmon sagrario edema versus pneumonia. 2. Small left pleural effusion.
--- NOTE | ~2024-07-26 | CT_ITS ---
Clinical Indication: Hypoxia, pleural effusion CT Scan of the Chest with Contrast: Technique: Contiguous sections were acquired throughout the chest after intravenous administration of 100 cc of Omnipaque 350. Dose reduction technique was used on this scan by utilizing automated expos ure control and iterative reconstruction technique. The dose-length product (DLP) was 260.26 mGy-cm. COMPARISON: 07/04/2024 Findings: There is no evidence of any significant mediastinal, hilar or axillary lymphadenopathy. There is no f illing defect in the pulmonary arterial tree to suggest pulmonary embolus. There is no evidence of ao rtic dissection or aneurysm. No pericardial effusion. Small right pleural effusion present. Minimal left pleural effusion present. There is biapical scarri ng. There is extensive groundglass opacity with interstitial thickening throughout the lungs, most co mpatible with moderate to advanced pulmonary edema.. Images through the upper abdomen reveal no abnormalities. Impression: Small bilateral pleural effusions with moderate to advanced pulmonary edema. Correlate for underlying chronic interstitial disease. Reviewed, dictated and finalized at [facility]. Impression: Small bilateral pleural effusions with moderate to advanced pulmonary edema. Co rrelate for underlying chronic interstitial disease.
--- NOTE | 2024-07-26 09:56 | ECG_ITS ---
Test Date: 2024-07-26 10:05:17 Measurements Intervals Dwight Rate: 70 P: -83 IN: 282 QRS: -66 QRSD: 132 T: 87 QT: 442 QTc: 479 Interpretive Statements ELECTRONIC ATRIAL PACEMAKER RIGHT BUNDLE BRANCH BLOCK LEFT ANTERIOR FASCICULAR BLOCK Electronically Signed On 07-28-2024 13:47:15 CDT by Pool Perez D.O
[2024-07-26 10:04] LABS: Glucose Point of Care 112 mg/dl (65-105)
--- OUTSIDE RECORDS SUMMARY | 2024-07-26 10:13 | XMS_ITS | Clinical Summary ---
Author Organization [facility] [employer] Address [address] [place] [address] Care Team Providers Care Silverware Supervisor Name Role Phone Kristen Graf [facility] Primary Care Provider Source Comments [facility] [employer],non-owned Affiliates and Associated Physician Practices is amultiple site organization consisting of ambulatory clinics and hospital sitesin [place], [place], [place] and [place]. This disclosure is being madepursuant to the Care Everywhere program and may not contain all information available regarding this patient. Last updated 18.[facility] [employer] Allergies No known active allergies Medications * [...] Active ipratropium (Atrovent) 0.03 % nasal spray [place] 2 sprays into each nostril 2 times [...] migh t be different from the original. First Leveler - Dr Asaf Ramirez Problem Noted Date [...] Encounters Date Type Department Care Team Description 07/25/2024 Telephone [facility] - Cardiology [address] [facility], [facility] [address] [place] [address] Mani Green RN Nausea 07/22/2024 Orders Only [facility] - Geriatrics [address] [place] [phone] Kristen Graf, BOTTOM FINISHER-ONLINE MARKETING STRATEGIST Leukocytosis, unspecified type ; Hyponatremia 07/19/2024 9:38 AM COMPLIANCE SPECIALIST - 07/19/2024 11:59 PM COMPLIANCE SPECIALIST Hospital Encounter [facility] [address] [place] [phone] Kristen Graf, BOTTOM FINISHER-ONLINE MARKETING STRATEGIST Discharge Disposition: Home or Self Care 07/19/2024 9:30 AM COMPLIANCE SPECIALIST Office Visit [facility] - Pulmonology [address] [place] [phone] Jack Milian MD Abnormal CT lung screening (Primary Dx); Immunization counseling 07/19/2024 Travel 07/10/2024 Orders Only [facility] - Geriatrics [address] [place] [address] Kristen Graf, BOTTOM FINISHER-ONLINE MARKETING STRATEGIST COVID-19 ; Pneumonia due to COVID-19 virus 07/10/2024 Telephone [facility] - Cardiology [address] [place] [phone] Mani Green RN Question 07/05/2024 Telephone [facility] - Internal Med [address] [place] [phone] Kristen Graf, BOTTOM FINISHER-PURNIMA General (Hospitalized) 06/27/2024 Refill [facility] - Cardiology [address] [place] [phone] Mani Green, POWER TOOL REPAIRER REFILL 05/21/2024 1:10 AM COMPLIANCE SPECIALIST Clinical Support [facility] - Cardiology [address] [place] [address], [address] [phone] SSS (sick sinus syndrome) (HCC) from Last 3 Months Immunizations Name Administration Dates Next Due Invoca primary monoval ent 12+ yr 0.3mL Purple [...] Sign Reading Time Taken Comments Blood Pressure 96/61 07/19/2024 9:02 AM COMPLIANCE SPECIALIST Pulse 80 07/19/2024 9:02 AM COMPLIANCE SPECIALIST Temperature 36.7 C (98.1 F) 03/28/2024 1:41 PM COMPLIANCE SPECIALIST Respiratory Rate 17 07/19/2024 9:02 AM COMPLIANCE SPECIALIST Oxygen Saturation 92% 07/19/2024 9:02 AM COMPLIANCE SPECIALIST Inhaled Oxygen Concentration - - Weight 70.7 kg (155 lb 12.8 oz) 07/19/2024 9:02 AM COMPLIANCE SPECIALIST Height 167.6 cm (5' 6 ) 07/19/2024 9:02 AM COMPLIANCE SPECIALIST Body Mass Index 25.15 07/19/2024 9:02 AM COMPLIANCE SPECIALIST Plan of Treatment Upcoming Encounters Date Type Department Care Team (Late st Contact Info) Description 08/02/2024 9:30 AM CDT [facility] [address] [place] [phone] Kristen Graf, BOTTOM FINISHER-ONLINE MARKETING STRATEGIST [address] [place] [phone] 08/20/2024 1:10 AM CDT Clinical Support [facility] - Cardiology [address] [place] [phone] 10/10/2024 10:20 AM CDT Office Visit [facility] - Cardiology [address] [place] [phone] Bharathi Higuera MD [address] [place] [phone] 11/19/2024 1:10 AM CDT Clinical Support [facility] - Cardiology [address] [place] [phone] 01/24/2025 10:30 AM CDT Office Visit [facility] - Pulmonology [address] [place] [phone] Jack Milian MD [address] [place] [address] [address] OF PULM/[place] [address] Health Maintenance Due Date Last Done Comments MEDICARE AWV 12 MONTHS 1940 DTAP/TDAP/TD VACCINES (1 - Tdap) 08/30/1959 ZOSTER VACCINE (1 of 2) 1990 Respiratory Syncytial Virus (RSV) Vaccine Pt: or over 60 yrs (1 - 1-dose 75+ series) 08/30/2015 DEPRESSION SCREENING 05/15/2024 07/18/2023, 09/30/2022, 10/15/2021 BONE DENSITY TESTING Completed 06/17/2022, 10/23/19 13 PNEUMOCOCCAL VACCINE 50+ Completed 01/06/2023, 10/0 05/2019 COVID-19 VACCINE Completed 01/31/2024, , 07/01/2022, Additional history exists INFLUENZA VACCINE Completed 01/31/2024, , 02/07/2023, Additional history exists HEPATITIS B VACCINE Aged Out No longe r eligible based on patient's age to complete this topic HIB VACCINE Aged Out No longer eligi ble based on patient's age to complete this topic HPV VACCINE Aged Out No longer eligi ble based on patient's age to complete this topic MENINGOCOCCAL (Group B) VACCINE SHARED DECISION-MAKING Aged Out No longer eligible based on patient's age to complete this topic MENINGOCOCCAL GROUPS A/C/Y/W VACCINE Aged Out No longer eligible based [...] last dose Medical Devices Implanted Type Area Lofter Device Identifier Shelf Expiration Date Model / Serial / Lot Lead Cp Nv Pace 52cm Strd Elut Pltn Amada - [id number] Implanted:Qty: 1 on 08/16/2021 by Bharathi Higuera MD at [facility] Right: Ventricle [employer] 04/13/2023 5076-52 / [id number] / Description:RV Lead Lead Cp Nv Pace 45cm Strd Elut Pltn Amada - [id number] Implanted:Qty: 1 on 08/16/2021 by Bharathi Higuera MD at [facility] Right: Atrium [employer] 05/06/2023 5076-45 / [id number] / Description:RA lead Pacemkr Orlovista Wire[employer] Crd - [id number] Implanted:Qty: 1 on 08/16/2021 by Bharathi Hgiuera MD at [facility] Right: Chest [employer] 01/09/2023 [id number] / [id number] / Description:ICD Procedures Procedure Name Priority Date/Time Associated Diagnosis Comments DIFFERENTIAL MANUAL Routine 07/19/2024 9 :46 AM COMPLIANCE SPECIALIST COVID-19 Pneumonia due to COVID-19 virus CBC W AUTO DIFFERENTIAL Routine 07/19/2024 9:46 AM COMPLIANCE SPECIALIST COVID-19 Pneumonia due to COVID-19 virus BASIC METABOLIC PANEL (CALCIUM TOTAL) Routine 07/19/2024 9:46 AM COMPLIANCE SPECIALIST COVID-19 Pneumonia due to COVID-19 virus [place] PM/ICD REMOTE TECH SERV Routine 05/26/2024 4:54 PM COMPLIANCE SPECIALIST SSS (sick sinus syndrome) (HCC) [place] PM DEVICE INTERROGATE REMOTE Routine 05/26/2024 4:54 PM COMPLIANCE SPECIALIST SSS (sick sinus syndrome) (HCC) CARDIAC PROCEDURE ORDER 05/20/2024 DEXA BONE DENSITY AXIAL SKELETON Routine 06/17/2022 1:22 PM COMPLIANCE SPECIALIST Primary osteoarthritis involving multiple joints Osteoporosis, unspecified osteoporosis type, unspecified pathological fracture presence from Last 3 Months or Most Recently Relevant to Health Maintenance Results * (ABNORMAL) DIFFERENTIAL MANUAL (07/19/2024 9:46 AM COMPLIANCE SPECIALIST) Neutrophil % 81(H) 41 - 74 % 07/19/2024 10:57 AM COMPLIANCE SPECIALIST [facility] Lymphocyte % 10(L) 17 - 47 % 07/19/2024 10:57 AM COMPLIANCE SPECIALIST [facility] Monocyte % 7 3 - 11 % 07/19/2024 10:57 AM [facility] Eosinophil % 2 0 - 7 % 07/19/2024 10:57 AM [facility] Neutrophil Absolute 11.50(H) 1.60 - 7.50 x10E9/L 07/19/2024 10:57 AM [facility] Lymphocyte Absolute 1.42 1.00 - 4.40 x10E9/L 07/19/2024 10:57 AM [facility] Monocyte Absolute 0.99 0.15 - 1.00 x10E9/L 07/19/2024 10:57 AM [facility] Eosinophil Absolute 0.28 0.00 - 0.60 x10E9/L 07/19/2024 10:57 AM [facility] RBC Morphology NORMAL 07/19/2024 10:57 AM [facility] Blood BLOOD SPECIMEN / Unknown Lab Venipuncture / Unknown 07/19/2024 9:46 AM COMPLIANCE SPECIALIST 07/19/2024 10:17 AM [facility] Kristen Graf BOTTOM FINISHER-ONLINE MARKETING STRATEGIST LAB - HEMATOLOG Y ORDERABLES Performing Organization Address City/State/[facility] Co de Phone Number [address] [address] [phone] * (ABNORMAL) CBC W/ DIFFERENTIAL (07/19/2024 9:46 AM COMPLIANCE SPECIALIST) WBC 14.2(H) 4.0 - 10.7 x10E9/L 07/19/2024 10:57 AM [facility] RBC Count 3.48(L) 3.90 - 5.20 x10E12/L 07/19/2024 10:57 AM [facility] Hemoglobin 10.8(L) 11.9 - 15.8 g/dL 07/19/2024 10:57 AM [facility] Hematocrit 32.9(L) 34.8 - 46.1 % 07/19/2024 10:57 AM [facility] MCV 94.5 80.0 - 98.0 fL 07/19/2024 10:57 AM [facility] MCH 31.0 26.7 - 33.6 pg 07/19/2024 10:57 AM [facility] MCHC 32.8 31.7 - 36.3 g/dL 07/19/2024 10:57 AM [facility] RDW-CV 15.9(H) 11.3 - 14.8 % 07/19/2024 10:57 AM [facility] Platelet Count 171 150 - 420 x10E9/L 07/19/2024 10:57 AM [facility] MPV 9.2 7.8 - 11.4 fL 07/19/2024 10:57 AM [facility] Blood BLOOD SPECIMEN / Unknown Lab Venipuncture / Unknown 07/19/2024 9:46 AM COMPLIANCE SPECIALIST 07/19/2024 10:17 AM COMPLIANCE SPECIALIST Kristen Graf BOTTOM FINISHER-ONLINE MARKETING STRATEGIST LAB - HEMATOLOG Y ORDERABLES [facility] [address] [place] [address], [facility] [phone] * (ABNORMAL) BASIC METABOLIC PANEL (CALCIUM TOTAL) (07/19/2024 9:46 AM COMPLIANCE SPECIALIST) BUN 23 7 - 26 mg/dL 07/19/2024 10:53 AM [facility] Creatinine 0.89 0.56 - 0.96 mg/dL 07/19/2024 10:53 AM [facility] Sodium 140 136 - 145 mmol/L 07/19/2024 10:53 AM [facility] Potassium 3.4(L) 3.5 - 4.5 mmol/L 07/19/2024 10:53 AM [facility] Chloride 105 98 - 107 mmol/L 07/19/2024 10:53 AM [facility] CO2 27 22 - 29 mmol/L 07/19/2024 10:53 AM [facility] Glucose 149(H) 70 - 99 mg/dL 07/19/2024 10:53 AM [facility] Calcium 8.4 8.4 - 10.2 mg/dL 07/19/2024 10:53 AM [facility] Anion Gap 8 6 - 16 07/19/2024 10:53 AM [facility] BUN/Creatinine Ratio 26(H) 7 - 23 07/19/2024 10:53 AM [facility] Osmolality Calculated 296(H) 275 - 295 mOsm/kg 07/19/2024 10:53 AM [facility] eGFR by CKD-EPI 64(L) >=90 mL/min/1.7 3 m2 07/19/2024 10:53 AM [facility] Blood BLOOD SPECIMEN / Unknown Lab Venipuncture / Unknown 07/19/2024 9:46 AM COMPLIANCE SPECIALIST 07/19/2024 10:17 AM COMPLIANCE SPECIALIST Kristen Graf BOTTOM FINISHER-ONLINE MARKETING STRATEGIST LAB - CHEMISTRY ORDERABLES [facility] [address] [place] [address], [facility] [phone] * [place] PM DEVICE INTERROGATE REMOTE, [place] PM/ICD REMOTE TECH SERV (05/26/2024 4:54 PM COMPLIANCE SPECIALIST) Narrative Nanette Aldridge MD - 05/26/2024 4:54 PM COMPLIANCE SPECIALIST Nanette Aldridge MD 05/26/2024 4:57 PM Remote Interrogation: 05/20/2024 Pertinent Findings: Device function within normal limits. No events or therapy delivered. See below for details. Nanette Aldridge MD Cardiac Electrophysiology Nanette Aldridge MD PROCEDURE/MINOR SURG ICAL ORDERABLES * CARDIAC PROCEDURE ORDER (05/20/2024) Narrative 05/20/2024 Ordered by an unspecified provider. Scanned Document CARDIAC SERVICES ORD ERABLES * BONE DENSITY AXIAL SKELETON(1OR MORE SITES)[id number] (06/17/2022 1:22 PM COMPLIANCE SPECIALIST) Anatomical Region Laterality Modality Other 06/20/2022 5:28 PM COMPLIANCE SPECIALIST Narrative 06/20/2022 5:29 PM COMPLIANCE SPECIALIST PROCEDURE: DEXA BONE DENSITY AXIAL SKELETON, DATE/TIME OF EXAM: 06/17/2022 1:23 PM, LOCATION [facility] 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 [...] SKELETON, DATE/TIME OF EXAM:06/17/2022 1:23 PM, LOCATION [facility] 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 [...] DO on 06/20/2022 5:29 PM Kristen Graf BOTTOM FINISHER-ONLINE MARKETING STRATEGIST DEXA ORDERABLES from Last 3 Months or Most Recently Relevant to Health Maintenance Advance Directives * Full Code (Latest Code Status on File) Date Activated Date Inactivated Comments 07/03/2021 6:20 PM 07/04/2021 5:26 PM Care Teams Silverware Supervisor Relationship Specialty Start Date End Date Kristen Graf APRN-ONLINE MARKETING STRATEGIST [address] [phone] PCP - General 05/24/21
--- OUTSIDE RECORDS SUMMARY | 2024-07-26 10:13 | XMS_ITS | Referral Summary ---
Author Organization [facility] Health Address [address] [place] [address] Care Team Providers Care Box Lining Machine Operator Name Role Phone Kristen Graf Primary Care Provider Source Comments [facility],non-owned Affiliates and Associated Physician Practices is amultiple site organization consisting of ambulatory clinics and hospital sitesin [place], [place], [place] and [place]. This disclosure is being madepursuant to the Care Everywhere program and may not contain all information available regarding this patient. Last updated 18.[facility] Encounters Date Type Department Care Team Description 07/25/2024 Telephone [facility]iology [address] [facility], [place] [address] [place] [phone] Mani Green RN Nausea 07/22/2024 Orders Only [facility] - Geriatrics [address] [facility], [place] [address] Kristen Graf APRN-CNP Leukocytosis, unspecified type ; Hyponatremia 07/19/2024 9:38 AM COAL WEIGHER - 07/19/2024 11:59 PM COAL WEIGHER Hospital Encounter [facility] OP DRAW STATION [address] [place] [phone] Kristen Graf APRN-RESOURCE SPECIALIST TEACHER Discharge Disposition: Home or Self Care 07/19/2024 Travel 07/19/2024 9:30 AM COAL WEIGHER Office Visit [facility] - Pulmonology [address] [place] [address] Jack Milian MD Abnormal CT lung screening (Primary Dx); Immunization counseling 07/10/2024 Orders Only [facility] - Geriatrics [address] [place] [address] Kristen Graf, CUPOLA MAN-RESOURCE SPECIALIST TEACHER COVID-19 ; Pneumonia due to COVID-19 virus 07/10/2024 Telephone [facility] - Cardiology [address] [place] [phone] Mani Green RN Question 07/05/2024 Telephone [facility] - Internal Med [address] [place] [phone] Kristen Graf, CUPOLA MAN-RESOURCE SPECIALIST TEACHER General (Hospitalized) 06/27/2024 Refill [facility] Physician [facility] - Cardiology [address] [place] [address], [address] [address] Mani Green, [employer] R INSTRUCTOR REFILL 05/21/2024 1:10 AM COAL WEIGHER Clinical Support [facility] - Cardiology [address] [place] [address], [address] [phone] SSS (sick sinus syndrome) (HCC) from Last 3 Months Allergies No [...] Active ipratropium (Atrovent) 0.03 % nasal spray [place] 2 sprays into each nostril 2 times [...] migh t be different from the original. Dowel Pin Worker - Dr Asaf Ramirez Problem Noted Date [...] multinodular Immunizations Name Administration Dates Next Due [employer] primary monoval ent 12+ yr 0.3mL Purple [...] Comments Blood Pressure 96/61 07/19/2024 9:02 AM COAL WEIGHER Pulse 80 07/19/2024 9:02 AM COAL WEIGHER Temperature 36.7 C (98.1 F) 03/28/2024 1:41 PM COAL WEIGHER Respiratory Rate 17 07/19/2024 9:02 AM COAL WEIGHER Oxygen Saturation 92% 07/19/2024 9:02 AM COAL WEIGHER Inhaled Oxygen Concentration - - Weight 70.7 kg (155 lb 12.8 oz) 07/19/2024 9:02 AM COAL WEIGHER Height 167.6 cm (5' 6 ) 07/19/2024 9:02 AM COAL WEIGHER Body Mass Index 25.15 07/19/2024 9:02 AM COAL WEIGHER Functional Status Functional Status Response Date of [...] Description 08/02/2024 9:30 AM CDT Office Visit [facility] - Geriatrics [address] [place] [phone] Kristen Graf, CUPOLA MAN-RESOURCE SPECIALIST TEACHER [address] [place] [phone] 08/20/2024 1:10 AM CDT Clinical Support [facility] - Cardiology [facility] [address] 10/10/2024 10:20 AM CDT Office Visit [facility] - Cardiology [address] [address] Bharathi Higuera MD [facility] [address] [address] 11/19/2024 1:10 AM CDT Clinical Support [facility] - Cardiology [address] [address] 01/24/2025 10:30 AM CDT Office Visit [facility] - Pulmonology [address] [place] [phone] Jack Milian MD [address] [place] [address] 2L DIV OF PULM/[place] [address] Goals Goal Patient Goal Type Associated Problems [...] last dose Medical Devices Implanted Type Area Charge Operator Device Identifier Shelf Expiration Date Model / Serial / Lot Lead Cp Nv Pace 52cm Strd Elut Pltn Amada - [id number] Implanted:Qty: 1 on 08/16/2021 by Bharathi Higuera MD at [facility] Right: Ventricle [employer] 04/13/2023 5076-52 / [id number] / Description:RV Lead Lead Cp Nv Pace 45cm Strd Elut Pltn Amada - [id number] Implanted:Qty: 1 on 08/16/2021 by Bharathi Higuera MD at [facility] Right: Atrium [employer] 05/06/2023 5076-45 / [id number] / Description:RA lead Pacemkr [place] Wirelessly Crd - [id number] Implanted:Qty: 1 on 08/16/2021 by Bharathi Higuera MD at [facility] Right: Chest [employer] 01/09/2023 [id number] / [id number] / Description:ICD Procedures Procedure Name Priority Date/Time Associated Diagnosis Comments DIFFERENTIAL MANUAL Routine 07/19/2024 9 :46 AM COAL WEIGHER COVID-19 Pneumonia due to COVID-19 virus CBC W AUTO DIFFERENTIAL Routine 07/19/2024 9:46 AM COAL WEIGHER COVID-19 Pneumonia due to COVID-19 virus BASIC METABOLIC PANEL (CALCIUM TOTAL) Routine 07/19/2024 9:46 AM COAL WEIGHER COVID-19 Pneumonia due to COVID-19 virus ID PM/ICD REMOTE TECH SERV Routine 05/26/2024 4:54 PM COAL WEIGHER SSS (sick sinus syndrome) (HCC) ID PM DEVICE INTERROGATE REMOTE Routine 05/26/2024 4:54 PM COAL WEIGHER SSS (sick sinus syndrome) (HCC) CARDIAC PROCEDURE ORDER 05/20/2024 DEXA BONE DENSITY AXIAL SKELETON Routine 06/17/2022 1:22 PM COAL WEIGHER Primary osteoarthritis involving multiple joints Osteoporosis, unspecified osteoporosis type, unspecified pathological fracture presence from Last 3 Months or Most Recently Relevant to Health Maintenance Results * (ABNORMAL) DIFFERENTIAL MANUAL (07/19/2024 9:46 AM [facility]) Neutrophil % 81(H) 41 - 74 % 07/19/2024 10:57 AM [facility] Lymphocyte % 10(L) 17 - 47 % 07/19/2024 10:57 AM [facility] Monocyte % 7 3 - 11 % 07/19/2024 10:57 AM [facility] Eosinophil % 2 0 - 7 % 07/19/2024 10:57 AM [facility] Neutrophil Absolute 11.50(H) 1.60 - 7.50 x10E9/L 07/19/2024 10:57 AM [facility] Lymphocyte Absolute 1.42 1.00 - 4.40 x10E9/L 07/19/2024 10:57 AM [facility] Monocyte Absolute 0.99 0.15 - 1.00 x10E9/L 07/19/2024 10:57 AM [facility] Eosinophil Absolute 0.28 0.00 - 0.60 x10E9/L 07/19/2024 10:57 AM [facility] RBC Morphology NORMAL 07/19/2024 10:57 AM [facility] Blood BLOOD SPECIMEN / Unknown Lab Venipuncture / Unknown 07/19/2024 9:46 AM COAL WEIGHER 07/19/2024 10:17 AM COAL WEIGHER Kristen Graf CUPOLA MAN-RESOURCE SPECIALIST TEACHER LAB - HEMATOLOG Y ORDERABLES [facility] [address] [place] [address], [facility] [phone] * (ABNORMAL) CBC W/ DIFFERENTIAL (07/19/2024 9:46 AM COAL WEIGHER) WBC 14.2(H) 4.0 - 10.7 x10E9/L 07/19/2024 10:57 AM [facility] RBC Count 3.48(L) 3.90 - 5.20 x10E12/L 07/19/2024 10:57 AM [facility] Hemoglobin 10.8(L) 11.9 - 15.8 g/dL 07/19/2024 10:57 AM [facility] Hematocrit 32.9(L) 34.8 - 46.1 % 07/19/2024 10:57 AM [facility] MCV 94.5 80.0 - 98.0 fL 07/19/2024 10:57 AM [facility] MCH 31.0 26.7 - 33.6 pg 07/19/2024 10:57 AM [facility] MCHC 32.8 31.7 - 36.3 g/dL 07/19/2024 10:57 AM [facility] RDW-CV 15.9(H) 11.3 - 14.8 % 07/19/2024 10:57 AM [facility] Platelet Count 171 150 - 420 x10E9/L 07/19/2024 10:57 AM [facility] MPV 9.2 7.8 - 11.4 fL 07/19/2024 10:57 AM [facility] Blood BLOOD SPECIMEN / Unknown Lab Venipuncture / Unknown 07/19/2024 9:46 AM COAL WEIGHER 07/19/2024 10:17 AM [facility] Kristen Graf CUPOLA MAN-RESOURCE SPECIALIST TEACHER LAB - HEMATOLOG Y ORDERABLES [address] [address], [facility] [phone] * (ABNORMAL) BASIC METABOLIC PANEL (CALCIUM TOTAL) (07/19/2024 9:46 AM COAL WEIGHER) Pathologist [facility] BUN 23 7 - 26 mg/dL 07/19/2024 10:53 AM [facility] Creatinine 0.89 0.56 - 0.96 mg/dL 07/19/2024 10:53 AM [facility] Sodium 140 136 - 145 mmol/L 07/19/2024 10:53 AM [facility] Potassium 3.4(L) 3.5 - 4.5 mmol/L 07/19/2024 10:53 AM [facility] Chloride 105 98 - 107 mmol/L 07/19/2024 10:53 AM [facility] CO2 27 22 - 29 mmol/L 07/19/2024 10:53 AM [facility] Glucose 149(H) 70 - 99 mg/dL 07/19/2024 10:53 AM [facility] Calcium 8.4 8.4 - 10.2 mg/dL 07/19/2024 10:53 AM [facility] Anion Gap 8 6 - 16 07/19/2024 10:53 AM [facility] BUN/Creatinine Ratio 26(H) 7 - 23 07/19/2024 10:53 AM [facility] Osmolality Calculated 296(H) 275 - 295 mOsm/kg 07/19/2024 10:53 AM [facility] eGFR by CKD-EPI 64(L) >=90 mL/min/1.7 3 m2 07/19/2024 10:53 AM [facility] Blood BLOOD SPECIMEN / Unknown Lab Venipuncture / Unknown 07/19/2024 9:46 AM COAL WEIGHER 07/19/2024 10:17 AM [facility] Kristen Graf CUPOLA MAN-RESOURCE SPECIALIST TEACHER LAB - CHEMISTRY ORDERABLES [facility] [address] [place] [address], [facility] [phone] * ID PM DEVICE INTERROGATE REMOTE, ID PM/ICD REMOTE TECH SERV (05/26/2024 4:54 PM COAL WEIGHER) Narrative Nanette Aldridge MD - 05/26/2024 4:54 PM COAL WEIGHER Nanette Aldridge MD 05/26/2024 4:57 PM Remote Interrogation: 05/20/2024 Pertinent Findings: Device function within normal limits. No events or therapy delivered. See below for details. Nanette Aldridge MD Cardiac Electrophysiology Nanette Aldridge MD PROCEDURE/MINOR SURG ICAL ORDERABLES * CARDIAC PROCEDURE ORDER (05/20/2024) Narrative 05/20/2024 Ordered by an unspecified provider. Scanned Document CARDIAC SERVICES ORD ERABLES * BONE DENSITY AXIAL SKELETON(1OR MORE SITES)[id number] (06/17/2022 1:22 PM COAL WEIGHER) Anatomical Region Laterality Modality Other 06/20/2022 5:28 PM COAL WEIGHER Narrative 06/20/2022 5:29 PM COAL WEIGHER PROCEDURE: DEXA BONE DENSITY AXIAL SKELETON, DATE/TIME OF EXAM: 06/17/2022 1:23 PM, LOCATION [facility] INDICATION: M15.9: Primary osteoarthritis involving multiple [...] SKELETON, DATE/TIME OF EXAM:06/17/2022 1:23 PM, LOCATION [facility] INDICATION: M15.9: Primary osteoarthritis involving multiple [...] DO on 06/20/2022 5:29 PM Kristen Graf CUPOLA MAN-RESOURCE SPECIALIST TEACHER DEXA ORDERABLES from Last 3 Months or Most Recently Relevant to Health Maintenance Advance Directives * Full Code (Latest Code Status on File) Date Activated Date Inactivated Comments 07/03/2021 6:20 PM 07/04/2021 5:26 PM Care Teams Box Lining Machine Operator Relationship Specialty Start Date End Date Kristen Graf, CUPOLA MAN-RESOURCE SPECIALIST TEACHER [address] [address] PCP - General 05/24/21
--- OUTSIDE RECORDS SUMMARY | 2024-07-26 10:13 | XMS_ITS | Encounter Summary ---
Author Organization [facility] Health Address [address] [facility] [place] [address] Care Team Providers Care Laborer Pipeline Name Role Phone Minh Thornton MD Primary Care Provider [phone] Kristen Graf [facility] Primary Care Provider Tracie Pritchett MD Primary Care Provider [phone] Kristen Graf APRN-IC DESIGN MANAGER Primary Care Provider Encounter Details Date Type Department Care Team (Late st Contact Info) Description 03/10/2020 Telephone [facility] [address] [place] [address] Kristen Graf EYELET ROW MARKER-IC DESIGN MANAGER [address] [phone] Social History Tobacco Use Types Packs/Day Years [...] encounter Miscellaneous Notes * Telephone Encounter - Gabriella Bloom - 03/10/2020 1:40 PM CDT Current Provider name: Dr. Kristen Graf Reason for call: Ms. Beth Aaron called to FU your call to her on Mon03/06/2020. She has a few other questions after the call. She really appreciated your call. No alvares, return her call at your convenience. Patient Call Back number: [phone] documented in this encounter Plan of Treatment Upcoming Encounters Date Type Department Care Team (Late st Contact Info) Description 08/02/2024 9:30 AM CDT Office Visit [facility] - Geriatrics [address] [facility], [place] [address] Kristen Graf, EYELET ROW MARKER-[address] [address] 08/20/2024 1:10 AM CDT Clinical Support [facility] - Cardiology [address] [place] [address] 10/10/2024 10:20 AM CDT Office Visit [facility] - Cardiology [address] [address] Bharathi Higuera MD [facility] [address] [address] 11/19/2024 1:10 AM CDT Clinical Support [facility] - Cardiology [address] [place], [place] [address] [place] [address] 01/24/2025 10:30 AM CDT Office Visit [facility] - Pulmonology [address] [facility], [place] [address] Jack Milian MD [address] [facility] 2L DIV OF PULM/[place] [address] documented as of this encounter Visit Diagnoses Not on filedocumented in this encounter Care Teams Laborer Pipeline Relationship Specialty Start Date End Date Minh Thornton MD [address] [place] [address] 2 [place] [address] PCP - General 03/02/20 04/26/20 Kristen Graf, EYELET ROW MARKER-IC DESIGN MANAGER [address] [place] [address] 2 [place] [address] PCP - General 04/27/20 05/19/21 Tracie Pritchett MD [address] [facility] [address] [place] [address] PCP - General Internal Medicine Geriatric Medicine 05/20/21 05/23/21 Kristen Graf, EYELET ROW MARKER-IC DESIGN MANAGER [address] [facility] 2[address] [place] [address] PCP - General 05/24/21 documented as of this encounter
--- OUTSIDE RECORDS SUMMARY | 2024-07-26 10:13 | XMS_ITS | Encounter Summary ---
Author Organization [facility] Health Address [address] [place] [address] Care Team Providers Care Ichthyologist Name Role Phone Kristen Graf APRN-SURFACE WATER TECHNICIAN Primary Care Provider Reason for Visit * Reason Onset Date Comments Nausea 07/25/2024 Encounter Details Date Type Department Care Team (Late st Contact Info) Description 07/25/2024 Telephone [facility]iology [address] [facility] [address] [place] [phone] Mani Green RN Nausea Social History Tobacco Use Types Packs/Day Years [...] encounter Miscellaneous Notes * Telephone Encounter - Mani Green RN - 07/25/2024 2:09 PM CDT Patient called states she is nauseous and weak. She had 3 episodes with her heart today. Nurse called patient instruct to send remote transmission of her pacemaker. Remote transmission received. No episodes noted on device either her episodes are very short lived or not meeting detection by device.Instruct patient that it is not afib and her symptoms are possibly viral and not cardiac. Patient verbalized understanding and agreement. documented in this encounter Plan of Treatment Upcoming Encounters Date Type Department Care Team (Late st Contact Info) Description 08/02/2024 9:30 AM CDT Office Visit [facility]s [address] [facility], [place] [address] Kristen Graf, GARAGEMAN-SURFACE WATER TECHNICIAN [address] [address] 08/20/2024 1:10 AM CDT Clinical Support [facility] - Cardiology [address] [facility], [address] [address] 10/10/2024 10:20 AM CDT Office Visit [facility] - Cardiology [address] [facility], [address] [address] Bharathi Higuera MD [address] [facility], [place] [address] [place] [address] 11/19/2024 1:10 AM CDT Clinical Support [facility] - Cardiology [address] [facility], [facility] [address] [place] [address] 01/24/2025 10:30 AM CDT Office Visit [facility] - Pulmonology [address] [facility], [place] [phone] Jack Milian MD [address] [facility] 2L DIV OF PULM/[place] [address] documented as of this encounter Goals Goal Patient Goal Type Associated Problems [...] one week prior to your last dose documented as of this encounter Visit Diagnoses Not on filedocumented in this encounter Care Teams Ichthyologist Relationship Specialty Start Date End Date Kristen Graf APRN-SURFACE WATER TECHNICIAN [address] [facility] [address] [place] [address] PCP - General 05/24/21 documented as of this encounter
--- OUTSIDE RECORDS SUMMARY | 2024-07-26 10:14 | XMS_ITS | Continuity of Care Document ---
Author Organization [facility] Address [address] [place] [address] Phone Care Team Providers Care Continuous Mining Machine Company Miner Name Role Phone Conversion MD, Doctor Unavailable Unavailabl e Advance Directives Directive Yes / No Effective Date File Name No Information Encounters Encounter Description Practice Location Reason(s) For Visit Diagnoses Date Provider Providers Copied on Encounter [facility], [address], [place], [place], [address] , tel: [phone] Conversion Department No Information 7201 [address] Conversion Doctor. [address] [place] [address], [address], . [facility], [address], [place], [place], [address] , tel: [phone] [facility] GENERAL OSTEOARTHROSIS HYPERLIPIDEMIA NEC/NOSSCREEN MAL NEOP-RECTUM September- 0-200 7 Ramila Moss. [facility] [address], [place], [place], [address], . tel: [phone] [facility], [address], [place], [place], [address] , tel: [phone] Administration CHEST PAIN NECPURE HYPERCHOLESTER OLEM Dec-2 9-200 4 Ramila Moss. [address], [address], [place], [place], [address], [place]. tel: [phone] [facility], [address], [place], [place], [address] , tel: [phone] [facility] CHEST PAIN NOS Dec-2 0-200 4 Ramila Moss. [address], [address], [place], [place], [address], [place]. tel: [phone] [facility], [address], [place], [place], [address] , [place] tel: [phone] [facility] SCREEN-DIABETE S MELLITUSSYMPT FEM CLIMACT STATEASCVD Sep-2 3-200 3 Ramila Moss. [address], [address], [place], [place], [address], [place]. tel: [phone] [facility], [address], [place], [place], [address] , [place] tel: [phone] [facility] ACUTE BRONCHITIS Sep-1 2-200 3 Ramila Moss. [address], [address], [place], [place], [address], [place]. tel: [phone] [facility], [address], [place], [place], [address] , [place] tel: [phone] [facility] BACKACHE NOS Mar- 8-200 1 Ramila Moss. [facility] [address], [address], [place], [place], [address], [place]. tel: [phone] [facility], [address], [place], [place], [address] , [place] tel: [phone] [facility] SCREEN MAL NEOP OTH SITE 6-200 0 Ramila Moss. [address], [address], [place], [place], [address], [place]. tel: [phone] [facility], [address], [place], [place], [address] , [place] tel: [phone] [facility] PTOSIS OF EYELID NOSABDMNAL PAIN GENERALIZED September- 2-200 0 Ramila Moss. [address], [address], [place], [place], [address], [place]. tel: [phone] [facility], [address], [place], [place], [address] , [place] tel: [phone] [facility] GENERAL MEDICAL EXAM NOSPALPITATION S 1-199 9 Ramila Moss. [address], [address], [place], [place], [address], [place]. tel: [phone] Family History Family Member Type Diagnosis Age At Onset No Information Payers Payer name Insurance type Covered republican ID Authoriza tion(s) No Information Social History [...]
--- OUTSIDE RECORDS SUMMARY | 2024-07-26 10:14 | XMS_ITS | Encounter Summary ---
Author Organization [facility] Health Address [address] [facility] [address] Care Team Providers Care Tar Heat Exchanger Cleaner Name Role Phone Kristen Graf APRNPURNIMA Primary Care Provider Tracie Pritchett MD Primary Care Provider [phone] Kristen [facility] Primary Care Provider Encounter Details Date Type Department Care Team (Late st Contact Info) Description 10/30/2020 Telephone [facility] [address] [place] [address] Ubaldo Salgado MD [address] [place] [address] Social History Tobacco Use Types Packs/Day Years [...] Description 08/02/2024 9:30 AM CDT [facility] [address] [place] [phone] Kristen Graf, DIRECT OF REAL ESTATE-BARBACK [address] [place] [phone] 08/20/2024 1:10 AM CDT Clinical Support [facility] - Cardiology [address] [address] 10/10/2024 10:20 AM CDT Office Visit [facility] - Cardiology [address] [phone] Bharathi Higuera MD [facility] [address] [address] 11/19/2024 1:10 AM CDT Clinical Support [facility] - Cardiology [address] [address] 01/24/2025 10:30 AM CDT Office Visit [facility] - Pulmonology [address] [place] [phone] Jack Milian MD [address] [place] [address] 2L DIV [place] PULM/[place] [address] documented as of this encounter Visit Diagnoses Not on filedocumented in this encounter Care Teams Tar Heat Exchanger Cleaner Relationship Specialty Start Date End Date Kristen Graf APRN-BARBACK PCP - General 04/27/20 05/19/21 Tracie Pritchett MD [address] [address] PCP - General Internal Medicine Geriatric Medicine 05/20/21 05/23/21 Kristen Graf APRN-BARBACK [address] [address] PCP - General 05/24/21 documented as of this encounter
--- OUTSIDE RECORDS SUMMARY | 2024-07-26 10:14 | XMS_ITS | Encounter Summary ---
Author Organization [facility] Health Address [address] [place] [address] Care Team Providers Care Homicide Squad Lieutenant Name Role Phone Kristen Graf APRN-ADULT MANAGER Primary Care Provider Reason for Visit * Reason Onset Date Comments Appointment 07/29/2022 Encounter Details Date Type Department Care Team (Late st Contact Info) Description 07/29/2022 Telephone [facility] [address] [place] [address] Dominic Hines MD [address] [place], [place] [id number] Appointment Social History Tobacco Use Types Packs/Day [...] Office Visit [facility] [address] [facility], [place] [address] Kristen Graf, NEUROPHYSIOLOGY TECH-ADULT MANAGER [facility] [phone] 08/20/2024 1:10 AM CDT Clinical [facility] [phone] 10/10/2024 10:20 AM CDT Office Visit [facility] [phone] Bharathi Higuera MD [facility] [address] 11/19/2024 1:10 AM CDT Clinical Support [facility] [address] [place] [phone] 01/24/2025 10:30 AM CDT Office Visit [facility] - Pulmon[facility] [address], [place] [address] Jack Milian MD [address] [facility] 2[address] DIV OF PULM/[place] [address] documented as of this encounter Visit Diagnoses Not on filedocumented in this encounter Care Teams Homicide Squad Lieutenant Relationship Specialty Start Date End Date Kristen Graf, NEUROPHYSIOLOGY TECH-ADULT MANAGER [address] [facility] [address] [place] [phone] PCP - General 05/24/21 documented as of this encounter
--- OUTSIDE RECORDS SUMMARY | 2024-07-26 10:14 | XMS_ITS | Patient Health Summary ---
Author Organization [facility] Address [address] [place] [address] Care Team Providers Care Sericulture Teacher Name Role Phone Kristen Graf APRN-[facility] Primary Care Provider Note from [facility],non-owned Affiliates and Associated Physician Practices is amultiple site organization consisting of ambulatory clinics and hospital sitesin [place], [place], [place] and [place]. This disclosure is being madepursuant to the Care Everywhere program and may not contain all information available regarding this patient. 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, nontoxic, multinodular Immunizations * Covid Zones primary monovalent 12+ yr 0.3mL Purple cap(Given [...] Comments Blood Pressure 96/61 07/19/2024 9:02 AM BOAT MECHANIC Pulse 80 07/19/2024 9:02 AM BOAT MECHANIC Temperature 36.7 C (98.1 F) 03/28/2024 1:41 PM BOAT MECHANIC Respiratory Rate 17 07/19/2024 9:02 AM BOAT MECHANIC Oxygen Saturation 92% 07/19/2024 9:02 AM BOAT MECHANIC Inhaled Oxygen Concentration - - Weight 70.7 kg (155 lb 12.8 oz) 07/19/2024 9:02 AM BOAT MECHANIC Height 167.6 cm (5' 6 ) 07/19/2024 9:02 AM BOAT MECHANIC Body Mass Index 25.15 07/19/2024 9:02 AM BOAT MECHANIC Medical Devices Implanted Type Area Assisted Living Manager Device Identifier Shelf Expiration Date Model / Serial / Lot Lead Cp Nv Pace 52cm Strd Elut Pltn Amada - [id number] Implanted:Qty: 1 on 08/16/2021 by Bharathi Higuera MD at [facility] Right: Ventricle [employer] 04/13/2023 5076-52 / [id number] / Description:RV Lead Lead Cp Nv Pace 45cm Strd Elut Pltn Amada - [id number] Implanted:Qty: 1 on 08/16/2021 by Bharathi Higuera MD at [facility] Right: Atrium [employer] 05/06/2023 5076-45 / [id number] / Description:RA lead Pacemkr [place] [employer] Crd - [id number] Implanted:Qty: 1 on 08/16/2021 by Bharathi Higuera MD at [facility] Right: Chest [employer] 01/09/2023 [id number] / [id number] / Description:ICD Procedures * DIFFERENTIAL MANUAL(Performed 07/19/2024) Performed for COVID-19, Pneumonia due to COVID-19 virus * CBC W AUTO DIFFERENTIAL(Performed 07/19/2024) Performed for COVID-19, Pneumonia due to COVID-19 virus * BASIC METABOLIC PANEL (CALCIUM TOTAL)(Performed 07/19/2024) Performed for COVID-19, Pneumonia due to COVID-19 virus * MO PM/ICD REMOTE TECH SERV(Performed 05/26/2024) Performed for SSS (sick sinus syndrome) (HCC) * MO PM DEVICE INTERROGATE REMOTE(Performed 05/26/2024) Performed for SSS (sick sinus syndrome) (HCC) * CARDIAC PROCEDURE ORDER(Performed 05/20/2024) * ECHO COMPLETE(Performed 04/08/2024) Performed for Essential hypertension * MO PM/ICD REMOTE TECH SERV(Performed 02/24/2024) Performed for SSS (sick sinus syndrome) (HCC) * MO PM DEVICE INTERROGATE REMOTE(Performed 02/24/2024) Performed for [...] Stage 3a chronic kidney disease (HCC) * MO DRAIN/INJECT LARGE JOINT/BURSA(Performed 07/20/2023) Performed for Bilateral primary osteoarthritis of knee * MO DRAIN/INJECT LARGE JOINT/BURSA(Performed 07/20/2023) Performed for Bilateral primary osteoarthritis of knee * LIPID PROFILE(Performed 06/12/2023) Performed for Screening cholesterol level * COMPREHENSIVE METABOLIC PANEL(Performed 06/12/2023) Performed for Primary hypertension * CBC W AUTO DIFFERENTIAL(Performed 06/12/2023) Performed for Primary hypertension * US ABDOMEN COMPLETE(Performed 06/12/2023) Performed for Abdominal pain, RLQ (right lower quadrant) * CARDIAC PROCEDURE ORDER(Performed 03/31/2023) * MO PM DEVICE EVAL IN PERSON(Performed 03/23/2023) Performed for Typical atrial flutter (HCC), Hypertension, unspecified type * TSH REFLEX FREE T4(Performed 01/06/2023) Performed for Thyroid nodule, Primary hypertension * COMPREHENSIVE METABOLIC PANEL(Performed 01/06/2023) Performed for Thyroid nodule, Primary hypertension * CBC W AUTO DIFFERENTIAL(Performed 01/06/2023) Performed for Thyroid nodule, Primary hypertension * MO DRAIN/INJECT LARGE JOINT/BURSA(Performed 11/08/2022) Performed for Bilateral primary osteoarthritis of knee * MO DRAIN/INJECT LARGE JOINT/BURSA(Performed 11/08/2022) Performed for Bilateral primary osteoarthritis of knee * XR PELVIS W LEFT HIP 2VW(Performed 11/08/2022) Performed for Pain of left hip * CARDIAC PROCEDURE ORDER(Performed 10/25/2022) * MO PM DEVICE EVAL IN PERSON(Performed 09/23/2022) Performed for SSS (sick sinus syndrome) (HCC) * MO DESTRUCT BENIGN LESION, 1-14(Performed 08/11/2022) Performed for Seborrheic keratosis, inflamed * BASIC METABOLIC PANEL (CALCIUM TOTAL)(Performed 07/01/2022) Performed for Essential hypertension * CARDIAC PROCEDURE ORDER(Performed 06/29/2022) * MO PM DEVICE EVAL IN PERSON(Performed 06/23/2022) Performed [...] (HCC) * CARDIAC PROCEDURE ORDER(Performed 03/29/2022) * MO PM DEVICE EVAL IN PERSON(Performed 03/24/2022) Performed for Hypertension, unspecified type, Palpitations, SSS (sick sinus syndrome) (HCC) * MO DESTRUCT BENIGN LESION, 1-14(Performed 03/15/2022) Performed for Seborrheic keratosis, inflamed * MO DRAIN/INJECT LARGE JOINT/BURSA(Performed 02/15/2022) Performed for Bilateral primary osteoarthritis of knee * MO DRAIN/INJECT LARGE JOINT/BURSA(Performed 02/15/2022) Performed for Bilateral primary osteoarthritis of knee * XR FOOT RIGHT 3VW OR MORE(Performed 02/14/2022) Performed for Right foot pain * TSH REFLEX FREE T4(Performed 02/04/2022) Performed for Thyroid nodule, Goiter, nontoxic, multinodular, Multiple thyroid nodules * MO US SOFT TISS HEAD&NCK R-T IMG(Performed 02/04/2022) Performed for Thyroid nodule, Goiter, nontoxic, multinodular, Multiple thyroid nodules * CBC W AUTO DIFFERENTIAL(Performed 02/03/2022) Performed for Essential hypertension * BASIC METABOLIC PANEL (CALCIUM TOTAL)(Performed 02/03/2022) Performed for Essential hypertension * MO BIOPSY, NAIL UNIT(Performed 01/25/2022) Performed for Nail dystrophy * FUNGUS REGINA - POINT OF CARE (AMB) SLU(Performed 01/25/2022) Performed for Tinea pedis of right foot * MO DESTRUCT BENIGN LESION, 1-14(Performed 01/25/2022) Performed for Seborrheic keratosis, inflamed * CULTURE FUNGUS SKIN HAIR NAIL+FUNGUS SMEAR(Performed 01/25/2022) * DERMATOPATHOLOGY(Performed 01/25/2022) Performed for Nail dystrophy * COMPREHENSIVE METABOLIC PANEL(Performed 01/20/2022) Performed for COVID-19 * CBC W AUTO DIFFERENTIAL(Performed 01/20/2022) Performed for COVID-19 * CARDIAC PROCEDURE ORDER(Performed 10/25/2021) * MO DRAIN/INJECT LARGE JOINT/BURSA(Performed 10/22/2021) Performed for Pain in both lower extremities, Bilateral primary osteoarthritis of knee, Effusion ofright knee * MO DRAIN/INJECT LARGE JOINT/BURSA(Performed 10/22/2021) Performed for Pain [...] SSS (sick sinus syndrome) (HCC), Bradycardia * MO DESTRUCT BENIGN LESION, 1-14(Performed 08/05/2021) Performed for [...] thyroid nodules, Hypertension, unspecified type, Hyponatremia * MO US SOFT TISS HEAD&NCK R-T IMG(Performed 01/29/2021) [...] Performed for Typical atrial flutter (HCC) * MO CYSTOURETHROSCOPY(Performed 09/08/2020) Performed for History of blood [...] TSH(Performed 07/23/2020) * T4 FREE(Performed 07/23/2020) * MO FNA BX W US GDN 1ST LES(Performed 07/23/2020) Performed for Thyroid nodule, Goiter, nontoxic, multinodular * MO US SOFT TISS HEAD&NCK R-T IMG(Performed 07/23/2020) Performed for Thyroid nodule, Goiter, nontoxic, multinodular * MO US GUIDED NEEDLE PLACEMENT(Performed 07/23/2020) Performed for [...] for Chest pain, unspecified type Results * (ABNORMAL) DIFFERENTIAL MANUAL (07/19/2024 9:46 AM BOAT MECHANIC) Neutrophil % 81(H) 41 - 74 % 07/19/2024 10:57 AM [facility] Lymphocyte % 10(L) 17 - 47 % 07/19/2024 10:57 AM [facility] Monocyte % 7 3 - 11 % 07/19/2024 10:57 AM [facility] Eosinophil % 2 0 - 7 % 07/19/2024 10:57 AM [facility] Neutrophil Absolute 11.50(H) 1.60 - 7.50 x10E9/L 07/19/2024 10:57 AM [facility] Lymphocyte Absolute 1.42 1.00 - 4.40 x10E9/L 07/19/2024 10:57 AM [facility] Monocyte Absolute 0.99 0.15 - 1.00 x10E9/L 07/19/2024 10:57 AM [facility] Eosinophil Absolute 0.28 0.00 - 0.60 x10E9/L 07/19/2024 10:57 AM [facility] RBC Morphology NORMAL 07/19/2024 10:57 AM [facility] Blood BLOOD SPECIMEN / Unknown Lab Venipuncture / Unknown 07/19/2024 9:46 AM BOAT MECHANIC 07/19/2024 10:17 AM [facility] Kristen Graf PRINCIPAL TECHNICAL SPECIALIST-COMMANDING OFFICER [facility] - HEMATOLOG Y ORDERABLES [facility] [address] [place] [address], [facility] [phone] * (ABNORMAL) CBC W/ DIFFERENTIAL (07/19/2024 9:46 AM BOAT MECHANIC) Only the most recent of16 resultswithin the time period is included. Pathologist [facility] WBC 14.2(H) 4.0 - 10.7 x10E9/L 07/19/2024 10:57 AM [facility] RBC Count 3.48(L) 3.90 - 5.20 x10E12/L 07/19/2024 10:57 AM [facility] Hemoglobin 10.8(L) 11.9 - 15.8 g/dL 07/19/2024 10:57 AM [facility] Hematocrit 32.9(L) 34.8 - 46.1 % 07/19/2024 10:57 AM [facility] MCV 94.5 80.0 - 98.0 fL 07/19/2024 10:57 AM [facility] MCH 31.0 26.7 - 33.6 pg 07/19/2024 10:57 AM [facility] MCHC 32.8 31.7 - 36.3 g/dL 07/19/2024 10:57 AM [facility] RDW-CV 15.9(H) 11.3 - 14.8 % 07/19/2024 10:57 AM [facility] Platelet Count 171 150 - 420 x10E9/L 07/19/2024 10:57 AM [facility] MPV 9.2 7.8 - 11.4 fL 07/19/2024 10:57 AM [facility] Blood BLOOD SPECIMEN / Unknown Lab Venipuncture / Unknown 07/19/2024 9:46 AM BOAT MECHANIC 07/19/2024 10:17 AM [facility] Kristen Graf APRN-COMMANDING OFFICER [facility] - HEMATOLOG Y ORDERABLES [facility] [address] [place] [phone], [facility] [phone] * (ABNORMAL) BASIC METABOLIC PANEL (CALCIUM TOTAL) (07/19/2024 9:46 AM [facility]) Only the most recent of12 resultswithin the time period is included. BUN 23 7 - 26 mg/dL 07/19/2024 10:53 AM [facility] Creatinine 0.89 0.56 - 0.96 mg/dL 07/19/2024 10:53 AM [facility] Sodium 140 136 - 145 mmol/L 07/19/2024 10:53 AM [facility] Potassium 3.4(L) 3.5 - 4.5 mmol/L 07/19/2024 10:53 AM [facility] Chloride 105 98 - 107 mmol/L 07/19/2024 10:53 AM [facility] CO2 27 22 - 29 mmol/L 07/19/2024 10:53 AM [facility] Glucose 149(H) 70 - 99 mg/dL 07/19/2024 10:53 AM [facility] Calcium 8.4 8.4 - 10.2 mg/dL 07/19/2024 10:53 AM [facility] Anion Gap 8 6 - 16 07/19/2024 10:53 AM [facility] BUN/Creatinine Ratio 26(H) 7 - 23 07/19/2024 10:53 AM [facility] Osmolality Calculated 296(H) 275 - 295 mOsm/kg 07/19/2024 10:53 AM [facility] eGFR by CKD-EPI 64(L) >=90 mL/min/1.7 3 m2 07/19/2024 10:53 AM [facility] Blood BLOOD SPECIMEN / Unknown Lab Venipuncture / Unknown 07/19/2024 9:46 AM BOAT MECHANIC 07/19/2024 10:17 AM [facility] Kristen Graf PRINCIPAL TECHNICAL SPECIALIST-COMMANDING OFFICER [facility] - CHEMISTRY ORDERABLES Performing Organization Address [facility]/State/ZIP Co de Phone Number [facility] [address] [place] [phone], [facility] [phone] * MO PM DEVICE INTERROGATE REMOTE, MO PM/ICD REMOTE TECH SERV (05/26/2024 4:54 PM BOAT MECHANIC) Narrative Nanette Aldridge MD - 05/26/2024 4:54 PM BOAT MECHANIC Nanette Aldridge MD 05/26/2024 4:57 PM Remote [...] ERABLES * ECHO COMPLETE (04/08/2024 11:33 AM BOAT MECHANIC) RVOT diam Doppler 2.584 cm [facility] CV FUJI PACS IVSd 2D 1.274 cm [facility] CV [facility] I PACS LVIDd 4.316 [...] PACS RVOT VTI 14.441 cm [facility] CV [facility] I PACS AV mn grad 3.949 mmHg [facility] CV FU JI PACS AV pk nahun 142.885 cm/s [facility] CV FUJ I PACS AV VTI 32.302 cm [facility] CV [facility] I PACS MV A pk nahun 59.369 [...] 221.432 cm [facility] CV FUJ I PACS MO VTI 77.979 cm [facility] CV FUJ I PACS AR DECEL TIME 2.132 s [facility] CV FUJI PACS RA area 20.245 cm [facility] CV [facility] PACS RV-alvarado basal diam 3.721 cm [facility] CV [facility]UJI PACS RV-alvarado mid diam 3.694 cm [facility] CV FUJI PACS TAPSE 2.15 cm [facility] CV FUJ I PACS MO PEAK END DIASTOLIC VELOCITY 141.199 cm/s [facility] CV FUJI PACS MO Decel [place] 191.392 cm/s2 SSM C V FUJI PACS [...] Laterality Modality Ultrasound 04/08/2024 10:5 3 AM BOAT MECHANIC Narrative 04/09/2024 7:54 AM BOAT MECHANIC Summary * Findings consistent with sclerotic valves, mild MR and AR, at least moderate TR, trace MO, no valve stenosis, mild effects of HTN, [...] Patient Status: O Study Site: [facility] Primary Location: [facility] Info Exam Type: ECHO COMPLETE Indications I10 - Essential hypertension Procedure(s) * A complete 2D, color Doppler, spectral Doppler, and M-Mode transthoracic echocardiogram was performed. Staff Referring Physician: Bharathi Higuera Ordering Provider: Bharathi Higuera Telegraph Installer: Bessy Shelton Left Ventricle The left ventricle [...] Accel Time 121.11 ms PV Regurgitation Doppler MO End Diastolic Velocity 1.4 m/s MO End Diastolic Gradient 8 mmHg MO Vena Contracta 0.83 mm Mitral Valve Name [...] Artery Doppler PA End Diastolic Pressure for MO 16 mmHg Aorta Name Value Normal Ascending [...] and AR, at least moderate TR, trace MO, no valve stenosis, mild effects of HTN, [...] Patient Status: O Study Site: [facility] Exam Type: ECHO COMPLETE Indications I10 - Essential hypertension Procedure(s) * A complete 2D, color Doppler, spectral Doppler, and M-Modetransthoracic echocardiogram was performed. Staff Referring Physician: Bharathi Higuera Ordering Provider: Bharathi Higuera Telegraph Installer: Bessy Shelton Left Ventricle The left ventricle [...] Accel Time 121.11 ms PV Regurgitation Doppler MO End Diastolic Velocity 1.4 m/s MO End Diastolic Gradient 8 mmHg MO Vena Contracta 0.83 mm Mitral Valve Name [...] Artery Doppler PA End Diastolic Pressure for MO 16 mmHg Aorta Name Value Normal Ascending [...] AM Bharathi Higuera MD ECHO CUPID * MO PM DEVICE INTERROGATE REMOTE, MO PM/ICD REMOTE TECH SERV (02/24/2024 11:07 PM CDT) Narrative Bharathi Higuera MD - 02/24/2024 11:07 PM CDT Bharathi Higuera MD 02/24/2024 11:07 PM Dear Beth L Aaron, I reviewed the remote interrogation of [...] of5 resultswithin the time period is included. TSH 2.535 0.350 - 4.940 uIU/mL 02/19/2024 2:46 PM CDT [facility] Blood BLOOD SPECIMEN / Unknown Lab Venipuncture / Unknown 02/19/2024 1:39 PM CDT 02/19/2024 1:48 PM CDT Kristen Graf PRINCIPAL TECHNICAL SPECIALIST-COMMANDING OFFICER [facility] - CHEMISTRY ORDERABLES [facility] [address] [place] [phone], [facility] [phone] * (ABNORMAL) COMPREHENSIVE METABOLIC PANEL (02/19/2024 1:39 PM CDT) Only the most recent of12 resultswithin the time period is included. BUN 22 7 - 26 mg/dL 02/19/2024 2:22 PM CDT [facility] Creatinine 0.98(H) 0.56 - 0.96 mg/dL 02/19/2024 2:22 PM CDT [facility] Sodium 139 136 - 145 mmol/L 02/19/2024 2:22 PM CDT [facility] Potassium 4.6(H) 3.5 - 4.5 mmol/L 02/19/2024 2:22 PM [facility] Chloride 106 98 - 107 mmol/L 02/19/2024 2:22 PM [facility] CO2 28 22 - 29 mmol/L 02/19/2024 2:22 PM [facility] Glucose 119(H) 70 - 115 mg/dL 02/19/2024 2:22 PM [facility] Calcium 9.4 8.4 - 10.2 mg/dL 02/19/2024 2:22 PM [facility] Protein Total 6.2 6.0 - 8.3 g/dL 02/19/2024 2:22 PM [facility] Albumin 3.6 3.4 - 5.0 g/dL 02/19/2024 2:22 PM [facility] Bilirubin Total 0.4 0.2 - 1.2 mg/dL 02/19/2024 2:22 PM [facility] Alkaline Phosphatase 94 40 - 150 U/L 02/19/2024 2:22 PM [facility] ALT 10 5 - 55 U/L 02/19/2024 2:22 PM [facility] AST 16 5 - 34 U/L 02/19/2024 2:22 PM [facility] Anion Gap 5(L) 6 - 16 02/19/2024 2:22 PM [facility] BUN/Creatinine Ratio 22 7 - 23 02/19/2024 2:22 PM [facility] Osmolality Calculated 292 275 - 295 mOsm/kg 02/19/2024 2:22 PM [facility] Albumin/Globulin Ratio 1.4 1.1 - 2.3 02/19/2024 2:22 PM [facility] eGFR by CKD-EPI 57(L) >=90 mL/min/1.7 3 m2 02/19/2024 2:22 PM [facility] Blood BLOOD SPECIMEN / Unknown Lab Venipuncture / Unknown 02/19/2024 1:39 PM CDT 02/19/2024 1:48 PM T Kristen Graf PRINCIPAL TECHNICAL SPECIALIST-COMMANDING OFFICER [facility] - CHEMISTRY ORDERABLES [facility] [address] [place] [address], [place] [phone] * VITAMIN B12 (02/19/2024 1:39 PM CDT) Only the most recent of6 resultswithin the time period is included. Vitamin B12 405 213 - 816 pg/mL 02/19/2024 2:46 PM CDT [facility] Blood BLOOD SPECIMEN / Unknown Lab Venipuncture / Unknown 02/19/2024 1:39 PM CDT 02/19/2024 1:48 PM CDT Kristen Graf PRINCIPAL TECHNICAL SPECIALIST-COMMANDING OFFICER [facility] - CHEMISTRY ORDERABLES Performing Organization Address [facility] Co de Phone Number [facility] [address] [place] [phone], [place] [phone] * CT CHEST WO CONTRAST (01/11/2024 10:10 [...] DATE/TIME OF EXAM: 01/11/2024 10:10 AM, LOCATION [facility] INDICATION: R93.89: Abnormal CT of the [...] CONTRAST, DATE/TIME OF EXAM: 01/11/2024 10:10AM, LOCATION [facility] INDICATION: R93.89: Abnormal CT of the [...] Hogue MD - 12/07/2023 6:06 PM CDT [facility] DEPARTMENT OF PULMONARY, CRITICAL CARE, AND [...] Nickerson MD Pulmonary and Critical Care Fellow [facility] Pager Number [phone] I have personally reviewed the fellow's interpretation of the test and made any necessary changes when needed. Marco Hogue MD [employer] engineer Division of Pulmonary, Critical Care and Sleep Medicine [facility] [employer] Pager: [phone] Narrative Marco Hogue MD - 12/07/2023 6:06 PM CDT Tonya Nickerson MD 12/08/2023 3:52 PM Procedure Note Tonya Nickerson MD - 12/07/2023 6:06 PM CDT Images from the original note were not included. Jack Milian MD RESPIRATORY THERAPY ORDERABLES * PFT Oxygen Desaturation Study [facility] PFT Lab (12/07/2023 6:00 PM CDT) Impressions Marco Hogue MD - 12/07/2023 6:00 PM CDT [facility] OF PULMONARY, CRITICAL CARE, AND SLEEP MEDICINE [...] Nickerson MD Pulmonary and Critical Care Fellow [facility] Pager Number [phone] I have personally reviewed the fellow's interpretation of the test and made any necessary changes when needed. Marco Hogue MD [employer] engineer Division of Pulmonary, Critical Care and Sleep Medicine [facility] [employer] [facility] Pager: [phone] Narrative Marco Hogue MD - 12/07/2023 6:00 PM CDT Tonya Nickerson MD 12/08/2023 3:52 PM Procedure Note Tonya Nickerson MD - 12/07/2023 6:00 PM CDT Images from the original note were not included. Jack Milian MD PFT ORDERABLES * Six Minute Walk Test [facility] (12/07/2023 5:47 PM CDT) Impressions Marco Hogue MD - 12/07/2023 5:47 PM CDT [facility] DEPARTMENT OF PULMONARY, CRITICAL CARE, AND SLEEP MEDICINE SIX MINUTE WALK TEST Beth Aaron 12/08/2023 Interpretation: The patient walked for 6 [...] Nickerson MD Pulmonary and Critical Care Fellow [facility] Pager Number [phone] I have personally reviewed the fellow's interpretation of the test and made any necessary changes when needed. Marco Hogue MD [employer] engineer Division of Pulmonary, Critical Care and Sleep Medicine [facility] Pager: [phone] Narrative Marco Hogue MD - 12/07/2023 5:47 PM CDT Tonya Nickerson MD 12/08/2023 3:52 PM Procedure Note Tonya Nickerson MD - 12/07/2023 5:47 PM CDT Images from the original note were not included. Jack Milian MD RESPIRATORY THERAPY ORDERABLES * MO DRAIN/INJECT LARGE JOINT/BURSA, MO DRAIN/INJECT LARGE JOINT/BURSA (07/20/2023 5:03 PM BOAT MECHANIC) Narrative Enrico Woodward III, MD - 07/20/2023 5:03 PM BOAT MECHANIC Enrico Woodward III, MD 07/20/2023 5:04 PM [...] * (ABNORMAL) LIPID PROFILE (06/12/2023 11:35 AM BOAT MECHANIC) Cholesterol Total 205(H) <200 mg/dL 06/12/2023 12:39 PM [facility] HDL 72 >40 mg/dL 06/12/2023 12:39 PM [facility] Comment: ATP III Classification of HDL Cholesterol: <40 mg/dL: Considered a major risk factor. >60 mg/dL: Considered a negative risk factor. LDL Calculated 122(H) <100 mg/dL 06/12/2023 12:39 PM [facility] Comment: ATP III Classification of LDL Cholesterol: <100 mg/dL: Optimal 100 - 129 mg/dL: Near Optimal/Above Optimal 130 - 159 mg/dL: Borderline High 160 - 189 mg/dL: High >190 mg/dL: Very High Triglycerides 57 <150 mg/dL 06/12/2023 12:39 PM [facility] Comment: ATP III Classification of Triglycerides: <150 mg/dL: Normal 150 - 199 mg/dL: Borderline High 200 - 400 mg/dL: High >500 mg/dL: Very High Blood BLOOD SPECIMEN / Unknown Lab Venipuncture / Unknown 06/12/2023 11:35 AM BOAT MECHANIC 06/12/2023 11:52 AM BOAT MECHANIC Kristen Graf PRINCIPAL TECHNICAL SPECIALIST-COMMANDING OFFICER [facility] - CHEMISTRY ORDERABLES [facility] [address] [place] [phone], [facility] [phone] * US ABDOMEN COMPLETE (06/12/2023 10:24 AM BOAT MECHANIC) Anatomical Region Laterality Modality Abdomen Ultrasound 06/12/2023 10:1 8 AM BOAT MECHANIC Impressions 06/12/2023 1:00 PM BOAT MECHANIC IMPRESSION: 4 mm nonobstructing calculus in the left kidney. No hydronephrosis. Otherwise unremarkable exam. > Dictated by Enrique Hines MD (radiology physician assistant). > Dictated by Enrique Hines ([employer]) 06/12/2023 10:18 AM IBia MD have personally reviewed and interpreted this examination/study. > Interpreting Provider: Bia Thompson MD on 06/12/2023 1:00 PM Narrative 06/12/2023 1:00 PM BOAT MECHANIC PROCEDURE: US ABDOMEN COMPLETE, DATE/TIME OF EXAM: 06/12/2023 10:24 AM, LOCATION [facility] INDICATION: R10.31: Abdominal pain, RLQ (right [...] DATE/TIME OF EXAM: 06/12/2023 10:24 AM, LOCATION [facility] INDICATION: R10.31: Abdominal pain, RLQ (right [...] exam. > Dictated by Enrique Hines MD (radiology physician assistant). > Dictated by Enrique Hines ([employer]) 06/12/2023 10:18 AM IBia MD have personally reviewed and interpreted this examination/study. > Interpreting Provider: Bia Thompson MD on 06/12/2023 1:00 PM Kristen Graf APRN-[facility] ORDERABLES * MO PM DEVICE EVAL IN PERSON (03/23/2023 2:07 PM BOAT MECHANIC) Narrative Bharathi Higuera MD - 03/23/2023 2:07 PM BOAT MECHANIC Bharathi Higuera MD 03/23/2023 2:07 PM I personally interrogated her pacemaker The device is a [employer] brand Dual Chamber Pacemaker. Model: [place] XT SN: [id number] Implanted on : 08/16/2021 Battery life: 9.6 yrs Leads: Atrial lead: P waves: 1.4 Capture threshold (mA): 1.25 @ 0.4 Impedance: 399 ohms Programmed 1.25 @ 0.4 ms, sensitivity 0.3 mV RV lead R waves: 19.0 mV Capture threshold (mA): 1.50 @ 0.4 Impedance: 437 ohms Programmed 2.5 @ 0.4 ms, sensitivity 1.2 mV Episodes: AF burden 0% Pacing Bock: RA: 99.8% RV/LV: 0.1% Programming: Mode: DDD 70 AAIR<=>DDDR Lower rate: 60 bpm Upper rate: 130 bpm AV delay: Sensed/Paced = 130/180 Bharathi Higuera MD PROCEDURE/MINOR SURG ICAL ORDERABLES * MO DRAIN/INJECT LARGE JOINT/BURSA, MO DRAIN/INJECT LARGE JOINT/BURSA (11/08/2022 11:52 AM CDT) [...] III, MD DIAGNOSTIC IM AGING ORDERABLES * MO PM DEVICE EVAL IN PERSON (09/23/2022 3:08 PM CDT) Narrative Bharathi Higuera MD - 09/23/2022 3:08 PM CDT Bharathi Higuera MD 09/23/2022 3:08 PM The device is a Medtronic brand Dual Chamber Pacemaker. Model: Rosette XT SN: [id number] Implanted on : 08/16/2021 Battery life: 10.4 yrs Leads: Atrial lead: P waves: 1.5 Capture threshold (mA): 1.125 @ 0.4 Impedance: 361 ohms Programmed 2.25 @ 0.4 ms, sensitivity 0.3 mV RV lead R waves: 16.1 mV Capture threshold (mA): 1.25 @ 0.4 Impedance: 437 ohms Programmed 2.5 @ 0.4 ms, sensitivity 1.2 mV Episodes: AF burdfen 0% Pacing Bock: RA: 99.4% RV/LV: 0.1% Programming: Mode: DDD 70 AAIR<=>DDDR Lower rate: 60 bpm Upper rate: 130 bpm AV delay: Sensed/Paced = 130/180 3.Essential Hypertension # BP ok today # cont Coreg to 25mg PO BID # Now off Hydralazine # cont losartan 50mg 4.Leg swelling # improved off hydralazine Bharathi Higuera MD PROCEDURE/MINOR SURG ICAL ORDERABLES * MO DESTRUCT BENIGN LESION, 1-14 (08/11/2022 1:45 PM CDT) Narrative Matheus Cope MD - 08/11/2022 1:45 PM CDT Dominic Hines MD 08/11/2022 1:45 PM Diagnosis and treatment options discussed. Liquid nitrogen was applied to 3 lesions (see office visit note for locations) for 6-10 seconds each for 1 cycle. Wound care reviewed. Matheus Cope MD PROCEDURE/MINOR SURG ICAL ORDERABLES * MO PM DEVICE EVAL IN PERSON (06/23/2022 4:45 PM BOAT MECHANIC) Narrative Bharathi Higuera MD - 06/23/2022 4:45 PM BOAT MECHANIC Bharathi Higuera MD 06/23/2022 4:45 PM I personally interrogated the PPM. The device is a Medtronic brand Dual Chamber Pacemaker. Model: Rosette XT SN: [id number] Implanted on : 08/16/2021 Battery life: 10.8 yrs Leads: Atrial lead: P waves: Paced@ 30 Capture threshold (mA): 1.125 @ 0.4 Impedance: 380 ohms Programmed 2.25 @ 0.4 ms, sensitivity 0.3 mV RV lead R waves: 15.9 mV Capture threshold (mA): 1.375 @ 0.4 Impedance: 456 ohms Programmed 2.75 @ 0.4 ms, sensitivity 1.2 mV Episodes: AF burdfen < 0.1% Pacing Bock: RA: 99.6% RV/LV: 0.1% Programming: Mode: DDD 70 AAIR<=>DDDR Lower rate: 60 bpm Upper rate: 130 bpm AV delay: Sensed/Paced = 150/180 Bharathi Higuera MD PROCEDURE/MINOR SURG ICAL ORDERABLES * CT ABDOMEN PELVIS W CONTRAST (06/17/2022 2:21 PM BOAT MECHANIC) Anatomical Region Laterality Modality Abdomen, Pelvis Computed Tomogra phy 06/17/2022 2:40 PM BOAT MECHANIC Impressions 06/17/2022 5:19 PM BOAT MECHANIC Impression: 1.No acute process identified in the abdomen or pelvis. 2.Partially imaged pulmonary nodules as described above measuring up to 5 mm. Follow-up chest CT may be obtained in one year. > Dictated by Shanti Laureano DO (radiology physician assistant). I, Tatiana Culver MD have personally reviewed and interpreted this examination/study. > Interpreting Provider: Tatiana Culver MD on 06/17/2022 5:19 PM Narrative 06/17/2022 5:19 PM BOAT MECHANIC PROCEDURE: CT ABDOMEN PELVIS W CONTRAST, DATE/TIME OF EXAM: 06/17/2022 2:22 PM, LOCATION [facility] INDICATION: R10.31: Abdominal pain, RLQ (right [...] CONTRAST, DATE/TIME OF EXAM: :22 PM, LOCATION [facility] INDICATION: R10.31: Abdominal pain, RLQ (right [...] year. > Dictated by Shanti Laureano DO (radiology physician assistant). I, Tatiana Culver MD have personally reviewed and interpreted this examination/study. > Interpreting Provider: Tatiana Culver MD on 06/17/2022 5:19 PM Kristen Graf PRINCIPAL TECHNICAL SPECIALIST-[facility] CT ORDERABLES * BONE DENSITY AXIAL SKELETON(1OR MORE SITES)[id number] (06/17/2022 1:22 PM BOAT MECHANIC) Anatomical Region Laterality Modality Other 06/20/2022 5:28 PM BOAT MECHANIC Narrative 06/20/2022 5:29 PM BOAT MECHANIC PROCEDURE: DEXA BONE DENSITY AXIAL SKELETON, DATE/TIME OF EXAM: 06/17/2022 1:23 PM, LOCATION 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 INDICATION: M15.9: Primary osteoarthritis involving multiple [...] DO on 06/20/2022 5:29 PM Kristen Graf PRINCIPAL TECHNICAL SPECIALIST-COMMANDING OFFICER [employer] DEXA ORDERABLES * MO PM DEVICE EVAL IN PERSON (03/24/2022 5:14 PM BOAT MECHANIC) Narrative Bharathi Higuera MD - 03/24/2022 5:14 PM BOAT MECHANIC Bharathi Higuera MD 03/24/2022 5:14 PM I personally interrogated the PPM / ICD. The device is a Medtronic brand Dual Chamber Pacemaker. Model: Rosette XT SN: [id number] Implanted on : 08/16/2021 Battery life: 10.6 Leads: Atrial lead: P waves: Paced@ 30 Capture threshold (mA): 1.25 @ 0.4 Impedance: 361 ohms Programmed 1.25 @ 0.4 ms, sensitivity 0.3 mV RV lead R waves: 19.8 mV Capture threshold (mA): 1.75 @ 0.4 Impedance: 456 ohms Programmed 3.25 @ 0.4 ms, sensitivity 1.2 mV Episodes: AF burdfen < 0.1% Pacing Bock: RA: 99.3% RV/LV: 0.1% Programming: Mode: DDD 70 AAIR<=>DDDR Lower rate: 60 bpm Upper rate: 130 bpm AV delay: Sensed/Paced = 150/180 Bharathi Higuera MD PROCEDURE/MINOR SURG ICAL ORDERABLES * MO DESTRUCT BENIGN LESION, 1-14 (03/15/2022 1:18 PM CDT) Narrative Lilliana Thomas MD - 03/15/2022 1:18 PM CDT Dominic Hines MD 03/15/2022 1:18 PM Diagnosis and treatment options discussed. Cryotherapy (Liquid Nitrogen) to iSK on L cheek x 6-10 seconds each. Number of cycles: 1. Wound care reviewed. Lilliana Thomas MD PROCEDURE/MINOR OMALLEY RGICAL ORDERABLES * MO DRAIN/INJECT LARGE JOINT/BURSA, MO DRAIN/INJECT LARGE JOINT/BURSA (02/15/2022 9:00 AM CDT) [...] DATE/TIME OF EXAM: 02/14/2022 3:22 PM, LOCATION [facility] INDICATION: M79.671: Right foot pain ADDITIONAL [...] MORE, DATE/TIME OF EXAM: 23:22 PM, LOCATION [facility] INDICATION: M79.671: Right foot pain ADDITIONAL [...] III, MD DIAGNOSTIC IM AGING ORDERABLES * MO US SOFT TISS HEAD&NCK R-T IMG (02/04/2022 [...] of knee Referring Physician: Dr. Kristen Graf, PRINCIPAL TECHNICAL SPECIALIST-COMMANDING OFFICER [employer] Procedure Preformed: Ultrasound Only COMPARED TO: 07/23/2020, [...] Banuelos MD PROCEDURE/MINOR KASH GICAL ORDERABLES * MO BIOPSY, NAIL UNIT (01/25/2022 3:20 PM CDT) [...] - POINT OF CAR E ORDERABLES * MO DESTRUCT BENIGN LESION, 1-14 (01/25/2022 12:06 PM [...] Comment: CULTURE,FUNGUS,SKIN,HAIR, NAIL W/DIRECT FLUOR/REGINA Micro Number: [id number] Test Status: Final Specimen Source: Right great toenail Specimen Quality: Adequate Smear: Few Fungal elements seen Result: No fungal growth at 4 Weeks Test Performed at: [facility] [id number] AMA KRISHNA MD 01/25/2022 12:0 4 PM CDT 01/26/2022 2:47 AM CDT Lilliana Thomas MD LAB - MICROBIOLOGY ORDERABLES [facility] [address] [place] [id number] * DERMATOPATHOLOGY (01/25/2022 12:00 AM CDT) Case Report Dermatopathology Report Case: [id number] Authorizing Provider: Lilliana Thomas MD Collected: 01/25/2022 12:00 AM Ordering Location: [facility] Received: 01/25/2022 03:16 PM Dermatology Pathologist: Ambreen [...] specimen consists of a nail clipping measuring [id number]. 1:44 PM CDT DERMATOPATHOLOGY LABORATORY Microscopic Description [...] characteristic determined by the Dermatopathology Laboratory at [facility], directed by Dr. Jose R Alcazar. These tests need not be, and therefore are not, approved by the [place] Food and Drug Administration. The tests are used for clinical purposes. Billing Codes Specimen Charges Stain Charges 18493 1 41224 1 2 1:44 PM CDT DERMATOPATHOLOGY LABORATORY Embedded Images 2 1:44 PM CDT DERMATOPATHOLOGY LABORATORY Pathology/Cytolog y TISSUE SPECIMEN FROM SKIN / Unknown 01/25/2022 01/25/2022 3:16 PM CDT Lilliana Thomas MD LAB - PATHOLOGY/CY TOLOGY ORDERABLES DERMATOPATHOLOGY LABORATORY [facility] Department of Dermatology [address] [phone] * MO DRAIN/INJECT LARGE JOINT/BURSA, MO DRAIN/INJECT LARGE JOINT/BURSA (10/22/2021 4:44 PM CDT) [...] reviewed by pathologist. 10/25/2021 8:53 AM CDT [facility] Comment:This is a corrected result. Previous result was No crystals seen. To be reviewed by pathologist. on 10/22/2021 at 1313 CDT Fluid SYNOVIAL FLUID / Unknown Collection / Unknown 10/22/2021 12:03 PM CDT 10/22/2021 12:09 PM CDT Enrico Woodward III, MD LAB - BODY FL UID ORDERABLES Performing Organization Address City/[facility]/ZIP Co de Phone Number [facility] [address] [place] [address], [place] [phone] * PATHOLOGY SMEAR BODY FLUID (10/22/2021 12:03 PM CDT) Pathologist [facility] Pathology Diff Review 10/25/2021 10:59 AM CDT [facility] Comment: Final diagnosis: Synovial fluid, smear: [...] 11:00 AM on 10-25-21. Diane Crain MD Foundry Operator Clinical Core Laboratory [facility] Fluid SYNOVIAL FLUID / Unknown Collection / Unknown 10/22/2021 12:03 PM CDT 10/22/2021 12:09 PM CDT Enrico Woodward III, MD LAB - PATHOLO GY/CYTOLOGY ORDERABLES Performing Organization Address City/[facility]/ZIP Co de Phone Number [facility] [address] [place] [address], [place] [phone] * DIFFERENTIAL MANUAL FLUID (10/22/2021 12:03 PM CDT) Segs % Fluid 8 % 10/22/2021 1:04 PM CDT [facility] Lymphocytes % Fluid 15 % 10/22/2021 1:04 PM CDT [facility] Monocytes % Fluid 40 % 10/22/2021 1:04 PM CDT [facility] Macrophages % Fluid 36 % 10/22/2021 1:04 PM CDT [facility] Synovial Lining Cells % 1 % 10/22/2021 1:04 PM CDT [facility] Fluid SYNOVIAL FLUID / Unknown Collection / Unknown 10/22/2021 12:03 PM CDT 10/22/2021 12:09 PM CDT Enrico Woodward III, MD LAB - BODY FL UID ORDERABLES [facility] [address] [place] [address], [facility] [phone] * CULTURE FLUID+GRAM STAIN (10/22/2021 12:03 PM CDT) Culture No growth RICHIE 10/26/2021 12:23 AM CDT [facility] MICROBIOLOGY Gram Stain No polymorphonuclear cells 10/26/2021 12:23 AM CDT [facility] MICROBIOLOGY Gram Stain No organisms seen 022 12:23 AM CDT [facility] MICROBIOLOGY Fluid SYNOVIAL FLUID / Unknown Collection / Unknown 10/22/2021 12:03 PM CDT 10/22/2021 12:09 PM CDT Enrico Woodward III, MD LAB - MICROBI OLOGY ORDERABLES Performing Organization Address City/[facility]/ZIP Co de Phone Number [facility] MICROBIOLOGY [address] [place] [address], [facility] [phone] * (ABNORMAL) CELL COUNT W DIFF W CRYSTALS SYNOVIAL (10/22/2021 12:03 PM CDT) Color Fluid Yellow(A) Colorles s, Straw 10/22/2021 12:41 PM CDT [facility] Clarity Fluid Hazy(A) Clear 10/22/2021 12:41 PM CDT [facility] Volume Fluid 2.0 mL 10/22/2021 12:41 PM CDT [facility] Viscosity Normal 10/22/2021 12:41 PM CDT [facility] WBC Fluid 124 0 - 200 x10e6/L 10/22/2021 12:41 PM CDT [facility] RBC Fluid <3,000(H) 0 x10e6/L 10/22/2021 12:41 PM CDT [facility] Crystal Exam Fluid Crystal examination to follow. 10/22/2021 12:41 PM CDT [facility] Differential Manual Differential to follow. 10/22/2021 12:41 PM CDT [facility] Fluid SYNOVIAL FLUID / Unknown Collection / Unknown 10/22/2021 12:03 PM CDT 10/22/2021 12:09 PM CDT Narrative [facility] - 10/22/2021 12:41 PM CDT No reference ranges established for body fluid cell counts. The reference ranges provided are derived from published literature. The test results must be integrated into the clinical context for interpretation. Enrico Woodward III, MD LAB - BODY FL UID ORDERABLES [facility] [address] [place] [address], [facility] [phone] * XR PELVIS W RIGHT HIP 2VW [...] possibly representing a teratoma. IDr. CHASE MD, FRCR have personally reviewed and interpreted [...] the pelvis - possibly representing a teratoma. I, Dr. CHASE CANALES MD, FRCR have personally reviewedand interpreted this examination/study. This [...] by CHASE CANALES MD, FRCR on 10/22/2021 11:13 AM . Narrative 10/22/2021 [...] joint. This report was electronically signed by CHAES CANALES MD, FRCR on 10/22/2021 11:13 AM . Enrico Woodward III, MD DIAGNOSTIC IM AGING ORDERABLES * LAB RESULTS ORDER (08/31/2021) Only the most recent of2 resultswithin the time period is included. Narrative 08/31/2021 Ordered by an unspecified provider. Scanned Document LAB - THERAPEUTIC DR JUDI MONITORING ORDERABLES * EP INSERT SC OR DC PACER ICD PG (08/16/2021 10:40 AM CDT) Narrative [facility] RAD[facility] - 08/16/2021 10:51 AM CDT This procedure was performed by a Cardiac Swing Tender in the EP lab. Please see the Op Note or Procedures Note placed by Electrophysiology. Bharathi Higuera MD ELECTROPHYS RADIANT [facility] * MO DESTRUCT BENIGN LESION, 1-14 (08/05/2021 2:13 PM CDT) Narrative Josy Helton MD - 08/05/2021 2:13 PM CDT Dominic Hines MD 08/05/2021 2:13 PM Diagnosis and treatment options discussed. Cryotherapy (Liquid Nitrogen) to iSK x 2 on face x 6-10 seconds each. Number of cycles: 1. Wound care reviewed. Josy Helton MD PROCEDURE/SHANNON R SURGICAL ORDERABLES * (ABNORMAL) PT-INR [facility] (08/02/2021 8:39 AM CDT) Only the most recent of3 resultswithin the time period is included. PT 17.6(H) 12.1 - 14.8 Seconds 08/02/2021 9:24 AM CDT [facility] INR 1.5 See Comment 08/02/2021 9:24 AM CDT [facility] Comment:The suggested therap eutic range for standard coumadin (warfarin) therapy is an INR of 2.0-3.0. For high-risk patients (Mechanical Mitral Valve Prosthesis, etc.), the suggested prophylactic therapeutic range is an INR of 2.5-3.5. Blood BLOOD SPECIMEN / Unknown Lab Venipuncture / Unknown 08/02/2021 8:39 AM CDT 08/02/2021 9:06 AM CDT Bharathi Higuera MD LAB - COAGULATION OR DERABLES [facility] [address] [place] [address], [facility] [phone] * HEAVY METALS URINE RANDOM PANEL (07/29/2021 11:43 AM CDT) Arsenic ug/g Creat Urine 33 mcg/g cr [facility] Comment: Reference Range: Nonexposed Adult: < or = 35 mcg/g creatinine Biological Exposure Index (end of shift/work week): < or = 50 mcg/g creatinine This test was developed and its analytical performance characteristics have been determined by [facility] [place] It has not been cleared or [...] analytical performance characteristics have been determined by [facility] [place]. It has not been cleared or [...] analytical performance characteristics have been determined by [facility] [place]. It has not been cleared or approved by the U.S. Food and Drug Administration. This assay has been validated pursuant to the CLIA regulations and is used for clinical purposes. Creatinine Urine 93 20 - 275 mg/dL [facility] Comment: Test Performed at: [facility] [employer] [address] [place] [id number] NGUYEN RANDOLPH MD,PHD Urine URINE SPECIMEN OBTAINED BY CLEAN CATCH PROCEDURE / Unknown 07/29/2021 11:43 AM CDT 07/29/2021 11:44 AM CDT Gaurang Harman MD LAB - URINE CHEMISTR Y ORDERABLES [facility] [id number] [place] [address] * CARDIAC EKG ORDER (07/07/2021 8:54 AM BOAT MECHANIC) Only the most recent of10 resultswithin the time period is included. Narrative 07/07/2021 8:54 AM BOAT MECHANIC Ordered by an unspecified provider. Scanned Document CARDIAC SERVICES ORD ERABLES * CT HEAD WO CONTRAST (07/04/2021 12:20 PM BOAT MECHANIC) Only the most recent of2 resultswithin the time period is included. Anatomical Region Laterality Modality Head Computed Tomogra phy 07/04/2021 12:5 9 PM BOAT MECHANIC Impressions 07/05/2021 7:45 AM BOAT MECHANIC IMPRESSION: No acute intracranial abnormality. Dictated by Feliberto Abreu D.O. ([employer]) I, Dr. KATIA SCHERER have personally reviewed and interpreted this examination/study. This report was electronically signed by KATIA SCHERER on 07/05/2021 7:45 AM . Narrative 07/05/2021 7:[address] HEAD WO CONTRAST EXAMINATION: Computed tomography [...] intracranial abnormality. Dictated by Feliberto Abreu D.O. ([employer]) I, Dr. KATIA SCHERER have personally reviewed and interpreted this examination/study. This report was electronically signed by KATIA SCHERER on 07/05/2021 7:45AM . Dimas Ward Fipatrice DO CT ORDERABLES * EKG 12-LEAD (07/04/2021 7:53 AM BOAT MECHANIC) Only the most recent of5 resultswithin the time period is included. Ventricular Rate 100 BPM [facility]USE Atrial Rate 100 BPM [facility] P-R Interval 216 ms [facility]USE QRS Duration ms 112 ms [facility]USE Q-T Interval ms 352 ms [facility] MUSE QTC Calculation (Bezet) 454 ms [facility] MUSE Calculated P [place] 88 degrees [facility] MUSE Calculated R [place] -84 degrees [facility] MUSE Calculated T [place] 71 degrees [facility] MUSE Interpretation EKG ATRIAL FLUTTER WITH 2:1 A-V CONDUCTION LEFT AXIS DEVIATION MINIMAL VOLTAGE CRITERIA FOR LVH, MAY BE NORMAL VARIANT ( Danial product ) ABNORMAL ECG WHEN COMPARED WITH ECG OF 03-JUL-2021 15:10, (RBBB AND LEFT ANTERIOR FASCICULAR BLOCK) IS NO LONGER PRESENT Confirmed by Bharathi Higuera ([id number]) on 07/06/2021 1:00:56 PM [facility] MUSE 07/04/2021 7:53 AM BOAT MECHANIC 07/06/2021 1:00 PM BOAT MECHANIC Hilton Connolly MD ECG ORDERABLES Performing Organization Address City/[facility]/ZIP Co de Phone Number [facility] MUSE * (ABNORMAL) TROPONIN I (07/04/2021 7:10 AM BOAT MECHANIC) Only the most recent of5 resultswithin the time period is included. Troponin I 0.100(H) <0.032 ng/mL 07/04/2021 7:44 AM BOAT MECHANIC [facility] Blood BLOOD SPECIMEN / Unknown Venipuncture / Unknown 07/04/2021 7:10 AM BOAT MECHANIC 07/04/2021 7:16 AM BOAT MECHANIC Dimas Keating DO LAB - CHEMISTRY OR DERABLES Performing Organization Address [facility] Co de Phone Number [address] [address], [place] [phone] * PHOSPHORUS BLOOD (07/04/2021 3:56 AM BOAT MECHANIC) Phosphorus 3.7 2.9 - 5.1 mg/dL 07/04/2021 4:32 AM BOAT MECHANIC [facility] Blood BLOOD SPECIMEN / Unknown Venipuncture / Unknown 07/04/2021 3:56 AM BOAT MECHANIC 07/04/2021 4:08 AM BOAT MECHANIC Rex Leonard MD LAB - CHEMISTRY ORD ERABLES Performing Organization Address [facility] Co de Phone Number [address] [address], [place] [phone] * MAGNESIUM BLOOD (07/04/2021 3:56 AM BOAT MECHANIC) Only the most recent of2 resultswithin the time period is included. Magnesium 1.9 1.6 - 2.6 mg/dL 07/04/2021 4:32 AM BOAT MECHANIC [facility] Blood BLOOD SPECIMEN / Unknown Venipuncture / Unknown 07/04/2021 3:56 AM BOAT MECHANIC 07/04/2021 4:08 AM BOAT MECHANIC Rex Leonard MD LAB - CHEMISTRY ORD ERABLES [facility] [address] [place] [address], [facility] [phone] * 24 HOUR BLOOD PRESSURE MONITORING (04/16/2021) Ciara Huitron MD CARDIAC SERVICES O RDERABLES * US KIDNEY WITH DOPPLER COMPLETE (04/14/2021 8:54 AM BOAT MECHANIC) Anatomical Region Laterality Modality Abdomen Ultrasound 04/14/2021 8:49 AM BOAT MECHANIC Impressions 04/14/2021 9:31 AM BOAT MECHANIC IMPRESSION: 1. Slightly small right kidney. No evidence of nephrolithiasis, hydronephrosis, or solid renal mass. 2. Patent renal vasculature without secondary signs of renal artery stenosis. Dictated by Vero Saenz MD (sales consultant residential manager). I, Dr. ANNA COCHRAN M.D. have personally reviewed and interpreted this examination/study. This report was electronically signed by ANNA COCHRAN M.D. on 04/14/2021 9:31 AM . Narrative 04/14/2021 9:31 AM BOAT MECHANIC EXAMINATION: 1. Complete retroperitoneal sonogram 2. Color [...] artery stenosis. Dictated by Vero Saenz MD (sales consultant residential manager). I, Dr. ANNA COCHRAN M.D. have personally reviewed and interpreted this examination/study. This report was electronically signed by ANNA COCHRAN M.D. on 04/14/2021 9:31 AM . Ciara Huitron MD ORDERABLES * (ABNORMAL) URINALYSIS W/MICROSCOPIC REFLEX TO CULTURE (04/14/2021 8:54 AM [facility]) Color UA Straw Straw, Yellow 04/14/2021 9:47 AM [facility] Clarity UA Clear Clear 04/14/2021 9:47 AM [facility] Specific [place] UA 1.010 1.005 - 1.030 04/14/2021 9:47 AM [facility] pH UA 7.0 5.0 - 8.0 pH 04/14/2021 9:47 AM [facility] Protein UA Negative Negative 04/14/2021 9:47 AM [facility] Glucose UA Negative Negative 04/14/2021 9:47 AM [facility] Ketone UA Negative Negative 04/14/2021 9:47 AM [facility] Bilirubin UA Negative Negative 04/14/2021 9:47 AM [facility] Blood UA 2+(A) Negative 04/14/2021 9:47 AM [facility] Nitrite UA Negative Negative 04/14/2021 9:47 AM [facility] Leukocyte Esterase 1+(A) Negative 04/14/2021 9:47 AM [facility] Urobilinogen UA Negative Negative mg/dL 04/14/2021 9:47 AM [facility] RBC UA 21-50(A) None Seen, 0-2, 3-5 /HPF 04/14/2021 9:47 AM [facility] WBC UA 0-5 None Seen, 0-5 /HPF 04/14/2021 9:47 AM [facility] Squamous Epithelial Cells UA 0-2 None Seen, 0-2, 3-5 /HPF 04/14/2021 9:47 AM [facility] Urine URINE SPECIMEN OBTAINED BY CLEAN CATCH PROCEDURE / Unknown Collection / Unknown 04/14/2021 8:54 AM BOAT MECHANIC 04/14/2021 9:31 AM BOAT MECHANIC Narrative [facility] - 04/14/2021 9:47 AM BOAT MECHANIC Lab Status, Culture Reflex Indicated. Ciara Huitron MD LAB - URINALYSIS O RDERABLES [facility] [address] [place] [address], [place] [phone] * MICROALB/CREAT RATIO URINE RANDOM PANEL (04/14/2021 8:54 AM BOAT MECHANIC) Albumin Random Urine 7.1 Not Established ug/mL 04/14/2021 10:10 AM BOAT MECHANIC [facility] Creatinine Urine 41 Not Established mg/dL 04/14/2021 10:10 AM BOAT MECHANIC [facility] Urine Albumin/Creati nine Ratio 17 <30 mg/g 04/14/2021 10:10 AM BOAT MECHANIC [facility] Urine URINE SPECIMEN OBTAINED BY CLEAN CATCH PROCEDURE / Unknown Collection / Unknown 04/14/2021 8:54 AM BOAT MECHANIC 04/14/2021 9:35 AM BOAT MECHANIC Ciara Huitron MD LAB - URINE CHEMIS TRY ORDERABLES Performing Organization Address [facility]/ZIP Co de Phone Number [address] [address], [place] [phone] * CULTURE URINE (04/14/2021 8:54 AM BOAT MECHANIC) Only the most recent of4 resultswithin the time period is included. Culture Urine <10,000 CFU/mL urogenital devendra RICHIE 04/15/2021 2:36 PM BOAT MECHANIC [facility] [facility] Urine URINE SPECIMEN OBTAINED BY CLEAN CATCH PROCEDURE / Unknown Collection / Unknown 04/14/2021 8:54 AM BOAT MECHANIC 04/14/2021 9:42 AM BOAT MECHANIC Narrative Authorizing Provider Result Ghazal Huitron MD LAB - MICROBIOLOGY ORDERABLES Performing Organization Address City/[facility]/ZIP Co de Phone Number [facility] MICROBIOLOGY [address] [place] [address], [facility] [phone] * (ABNORMAL) RENAL FUNCTION PANEL (04/14/2021 8:54 AM [facility]) Only the most recent of2 resultswithin the time period is included. BUN 21 7 - 26 mg/dL 04/14/2021 10:04 AM [facility] Creatinine 1.00(H) 0.56 - 0.96 mg/dL 04/14/2021 10:04 AM [facility] Sodium 140 136 - 145 mmol/L 04/14/2021 10:04 AM [facility] Potassium 4.4 3.5 - 4.5 mmol/L 04/14/2021 10:04 AM [facility] Chloride 102 98 - 107 mmol/L 04/14/2021 10:04 AM [facility] CO2 27 22 - 29 mmol/L 04/14/2021 10:04 AM [facility] Glucose 87 70 - 115 mg/dL 04/14/2021 10:04 AM [facility] Albumin 3.9 3.4 - 5.0 g/dL 04/14/2021 10:04 AM [facility] Calcium 9.9 8.4 - 10.2 mg/dL 04/14/2021 10:04 AM [facility] Phosphorus 3.6 2.9 - 5.1 mg/dL 04/14/2021 10:04 AM [facility] Anion Gap 15 8 - 18 04/14/2021 10:04 AM [facility] BUN/Creatinine Ratio 21 7 - 23 04/14/2021 10:04 AM [facility] Osmolality Calculated 292 270 - 300 mOsm/kg 04/14/2021 10:04 AM [facility] eGFR by CKD-EPI 53(L) >=90 mL/min/1.7 3 m2 04/14/2021 10:04 AM [facility] Blood BLOOD SPECIMEN / Unknown Lab Venipuncture / Unknown 04/14/2021 8:54 AM BOAT MECHANIC 04/14/2021 9:34 AM [facility] Ciara Huitron MD LAB - CHEMISTRY OR DERABLES Performing Organization Address City/State/[facility] Co de Phone Number [facility] [address] [address], [facility] [phone] * PROC EKG IN CLINIC (02/11/2021 12:08 PM CDT) Only the most recent of6 resultswithin the time period is included. Narrative Bharathi Higuera MD - 02/11/2021 12:08 PM CDT Bharathi Higuera MD 02/11/2021 12:08 PM Ectopic atrial rhythm HR 60 bpm Bharathi Higuera MD ECG ORDERABLES * ACTH (02/01/2021 7:03 AM CDT) [facility] ACTH 23 6 - 50 pg/mL [facility] Comment: Reference range applies only to specimens collected between 7am-10am. Test Performed at: [facility] [place] [address] [place], [place] NGUYEN RANDOLPH MD,PHD Blood BLOOD SPECIMEN / Unknown 02/01/2021 7:03 AM CDT 02/01/2021 7:04 AM CDT Santiago Banuelos MD LAB - CHEMISTRY ORD ERABLES [id number] [place] [address] * RENIN ACTIVITY (02/01/2021 7:03 AM CDT) [facility] Plasma Renin Activity 2.37 0.25 - 5.82 ng/mL/h [facility] Comment: This test was developed and its analytical performance characteristics have been determined by [facility]. It has not been cleared or approved by FDA. This assay has been validated pursuant to the CLIA regulations and is used for clinical purposes. Test Performed at: [facility] [address] [place] [address] RAN TRIMBLE MD,PHD,MAXIMILAINO Blood BLOOD SPECIMEN / Unknown 02/01/2021 7:03 AM CDT 02/01/2021 7:04 AM CDT Santiago Banuelos MD LAB - CHEMISTRY ORD ERABLES Performing Organization Address City/State/[facility] de Phone Number [facility] [address] [place] [address] * ALDOSTERONE BLOOD (02/01/2021 7:03 AM CDT) Aldosterone 4 ng/dL [facility] Comment: Adult Reference Ranges for Aldosterone: Upright 8:00-10:00 am < or = 28 ng/dL Upright 4:00-6:00 pm < or = 21 ng/dL Supine 8:00-10:00 am 3-16 ng/dL This test was developed and its analytical performance characteristics have been determined by [facility]. It has not been cleared or approved by FDA. This assay has been validated pursuant to the CLIA regulations and is used for clinical purposes. Test Performed at: [facility] [address] [place] [address] RAN TRIMBLE MD,PHD,MAXIMILIANO Blood BLOOD SPECIMEN / Unknown 02/01/2021 7:03 AM CDT 02/01/2021 7:04 AM CDT Santiago Banuelos MD LAB - CHEMISTRY ORD ERABLES Performing Organization Address [facility] de Phone Number [address] [address] * SODIUM URINE RANDOM (02/01/2021 7:03 AM CDT) Sodium Urine 43 28 - 272 mmol/L [facility] Comment: Test Performed at: [facility] [address] [place] [address] ENRICO WYNN DO,MPH Urine URINE SPECIMEN OBTAINED BY CLEAN CATCH PROCEDURE / Unknown 02/01/2021 7:03 AM CDT 02/01/2021 7:04 AM CDT Santiago Banuelos MD LAB - URINE FISHING WORKER RY ORDERABLES Performing Organization Address [facility] Co de Phone Number [facility] [address] [place] [address] * CREATININE URINE RANDOM (02/01/2021 7:03 AM CDT) Creatinine Urine 55 20 - 275 mg/dL [facility] Comment: Test Performed at: [facility] [place] [address] [address] [employer] [place] [address] ENRICO WYNN DO,MPH Urine URINE SPECIMEN OBTAINED BY CLEAN CATCH PROCEDURE / Unknown 02/01/2021 7:03 AM CDT 02/01/2021 7:04 AM CDT Santiago Banuelos MD LAB - URINE FISHING WORKER RY ORDERABLES Performing Organization Address [facility] [place] [address] * TSH (02/01/2021 7:03 AM CDT) Only the most recent of4 resultswithin the time period is included. Pathologist [facility] TSH 3.79 0.40 - 4.50 mIU/L [facility] Comment: Test Performed at: [employer] [place] [address] [address] [employer] [place] [address] ENRICO WYNN DO,MPH Blood BLOOD SPECIMEN / Unknown 02/01/2021 7:03 AM CDT 02/01/2021 7:04 AM CDT Santiago Banuelos MD LAB - CHEMISTRY ORD ERABLES Performing Organization Address [facility] de Phone Number [facility] [address] [place] [phone] * CORTISOL BLOOD AM (02/01/2021 7:03 AM CDT) Pathologist [facility] Cortisol AM 19.2 mcg/dL [facility] Comment: Reference Range 8 a.m. (7-9 a.m.) Specimen: 4.0-22.0 REPORT COMMENT: FASTING:YES Test Performed at: [employer] [facility] [place] [address] [address] [place] [address] ENRICO WYNN DO,MPH Blood BLOOD SPECIMEN / Unknown 02/01/2021 7:03 AM CDT 02/01/2021 7:04 AM CDT Santiago Banuelos MD LAB - CHEMISTRY ORD ERABLES Performing Organization Address [facility] Co de Phone Number [facility] [phone] [place] [address] * [place] US SOFT TISS HEAD&NCK R-T IMG (01/29/2021 [...] Essential hypertension Referring Physician: Dr. Kristen Graf, PRINCIPAL TECHNICAL SPECIALIST-COMMANDING OFFICER [employer] Procedure Preformed: Ultrasound Only COMPARED TO; 07/23/2020 [...] URINALYSIS W/MICROSCOPIC NO CULTURE (01/02/2021 8:39 AM CDT) Only the most recent of5 resultswithin the time period is included. Color UA Straw Straw, Yellow 01/02/2021 9:01 AM CDT [facility] Clarity UA Clear Clear 01/02/2021 9:01 AM [facility] Specific [place] UA 1.010 1.005 - 1.030 01/02/2021 9:01 AM [facility] pH UA 6.0 5.0 - 8.0 pH 01/02/2021 9:01 AM [facility] Protein UA Negative Negative 01/02/2021 9:01 AM [facility] Glucose UA Negative Negative 01/02/2021 9:01 AM [facility] Ketone UA Negative Negative 01/02/2021 9:01 AM [facility] Bilirubin UA Negative Negative 01/02/2021 9:01 AM [facility] Blood UA 3+(A) Negative 01/02/2021 9:01 AM [facility] Nitrite UA Negative Negative 01/02/2021 9:01 AM [facility] Leukocyte Esterase Negative Negative 01/02/2021 9:01 AM [facility] Urobilinogen UA Negative Negative mg/dL 01/02/2021 9:01 AM [facility] RBC UA 21-50(A) None Seen, 0-2, 3-5 /HPF 01/02/2021 9:01 AM [facility] WBC UA 0-5 None Seen, 0-5 /HPF 01/02/2021 9:01 AM [facility] Squamous Epithelial Cells UA 0-2 None Seen, 0-2, 3-5 /HPF 01/02/2021 9:01 AM [facility] Urine URINE SPECIMEN OBTAINED BY CLEAN CATCH PROCEDURE / Unknown Collection / Unknown 01/02/2021 8:39 AM CDT 01/02/2021 8:44 AM [facility] - 01/02/2021 9:01 AM T Areli Curtis MD LAB - URINALYSIS ORD ERABLES [facility] [address] [place] [address], [facility] [phone] * XR CHEST 2VW (01/02/2021 6:18 AM [...] Report drafted by Sanna Norris M.D. (resident) Dr. GIL Santana MD have personally reviewed and interpreted [...] Report drafted by Sanna Norris M.D. (resident) Dr. GIL Santana MD have personally reviewed and interpreted this examination/study. This report was electronically signed by GIL BERNARD MD on01/02/2021 7:38 PM . Ana Hillman PRINCIPAL TECHNICAL SPECIALIST-COMMANDING OFFICER [employer] [facility] I MAGING ORDERABLES * HEPATIC FUNCTION PANEL (01/02/2021 6:01 AM CDT) Protein Total 6.9 6.0 - 8.3 g/dL 021 6:55 AM CDT [facility] Albumin 4.1 3.4 - 5.0 g/dL 01/02/2021 6:55 AM [facility] Bilirubin Total 0.8 0.2 - 1.2 mg/dL 12/14 6:55 AM [facility] Bilirubin Conjugated 0.2 0.1 - 0.5 mg/dL 01/02/2021 6:55 AM [facility] Bilirubin Unconjugated 0.6 Unconjugated Bilirubin is a calculated value: Reference ranges have not been established. mg/dL 01/02/2021 6:55 AM [facility] Alkaline Phosphatase 91 40 - 150 U/L 01/02/2021 6:55 AM [facility] ALT 13 5 - 55 U/L 01/02/2021 6:55 AM [facility] AST 20 5 - 34 U/L 01/02/2021 6:55 AM [facility] Albumin/Globulin Ratio 1.5 1.1 - 2.3 01/02/2021 6:55 AM [facility] Blood BLOOD SPECIMEN / Unknown Venipuncture / Unknown 01/02/2021 6:01 AM CDT 01/02/2021 6:21 AM CDT Areli Curtis MD LAB - CHEMISTRY ORDZuhair DOMINGUEZ [address] [address], [facility] [phone] * FOLATE (01/02/2021 6:01 AM CDT) Only the most recent of2 resultswithin the time period is included. Folate 14.5 7.0 - 31.4 ng/mL 01/02/2021 7:20 AM T [facility] Blood BLOOD SPECIMEN / Unknown Venipuncture / Unknown 01/02/2021 6:01 AM CDT 01/02/2021 6:21 AM CDT Areli Curtis MD LAB - CHEMISTRY [place] [address] [address] [phone] * ECHO COMPLETE (11/20/2020 9:55 AM CDT) Anatomical Region Laterality Modality Chest Echo 11/20/2020 9:22 AM CDT Narrative Procedure Note Elizabeth Torrez MD - 11/20/2020 Bharathi Higuera MD ECHOCARDIOGRAPHY RAD IANT * METANEPHRINES FRACTIONATED PLASMA (11/20/2020 7:08 AM CDT) Metanephrine Fract Free <25 <=57 pg/mL [facility] Comment: This test was developed and its analytical performance characteristics have been determined by [employer] [place]. It has not been cleared or approved by the U.S. Food and Drug Administration. This assay has been validated pursuant to the CLIA regulations and is used for clinical purposes. Normetanephrine Free 72 <=148 pg/mL [facility] Comment: This test was developed and its analytical performance characteristics have been determined by [employer] [place]. It has not been cleared or approved by the U.S. Food and Drug Administration. This assay has been validated pursuant to the CLIA regulations and is used for clinical purposes. Free Metanephrine + Normetanephrine 72 <=205 pg/mL [facility] Comment: For additional information, please refer to http://education.[facility]/faq/MetFractFree (This link is being provided for informational/educatio [...] of Clinical Endocrinology # Metabolism 93(1), 91-95, 2007. This test was developed and its analytical performance characteristics have been determined by [employer] [place]. It has not been cleared or approved by the U.S. Food and Drug Administration. This assay has been validated pursuant to the CLIA regulations and is used for clinical purposes. REPORT COMMENT: FASTING:NO Test Performed at: [facility] [address] [place] [address] NGUYEN RANDOLPH MD,PHD 11/20/2020 7:08 AM CDT 11/20/2020 7:08 AM CDT Santiago Banuelos MD LAB - CHEMISTRY ORD ERABLES [facility] [address] [place] [address] * METANEPHRINES URINE FRACTIONATED (11/20/2020 7:08 AM CDT) Metanephrine Urine 105 21 - 153 mcg/g creat [facility] Comment: This test was developed and its analytical performance characteristics have been determined by [employer] [place]. It has not been cleared or approved by FDA. This assay has been validated pursuant to the CLIA regulations and is used for clinical purposes. Normetanephrine Urine 256 108 - 524 mcg/g creat [facility] Comment: This test was developed and its analytical performance characteristics have been determined by [employer] [place]. It has not been cleared or approved by FDA. This assay has been validated pursuant to the CLIA regulations and is used for clinical purposes. Metanephrine Total Urine 361 149 - 603 mcg/g creat [facility] Comment: A four-fold elevation of urinary normetanephrines is extremely likely due to a tumor, while a four-fold elevation of urinary metanephrines is highly suggestive, but not diagnostic of the tumor. Measurement of plasma Metanephrines and Chromogranin A is recommended for confirmation. This test was developed and its analytical performance characteristics have been determined by [employer] [place]. It has not been cleared or approved by FDA. This assay has been validated pursuant to the CLIA regulations and is used for clinical purposes. Creatinine Urine 29 20 - 275 mg/dL [facility] Comment: REPORT COMMENT: FASTING:NO Test Performed at: [facility] [address] [place] [address] RAN TRIMBLE MD,PHD,MAXIMILIANO 11/20/2020 7:08 AM CDT 11/20/2020 7:08 AM CDT Santiago Banuelos MD LAB - URINE FISHING WORKER RY ORDERABLES [facility] [address] [place] [address] * [place] CYSTOURETHROSCOPY (09/08/2020 1:22 PM CDT) Narrative Kiersten [...] POCT neg Ketones UA POCT neg Specific [place]rest[place] UA 1.015 Blood Urine POCT 80Ery/uL pH UA 6.0 Protein UA neg Urobilinogen UA 0.2 mg/dL Nitrite UA neg WBC UA neg Urine URINE / Unknown 09/08/2020 Kiersten Gibson Lucho PRINCIPAL TECHNICAL SPECIALIST-COMMANDING OFFICER [employer] LAB - POINT O F CARE ORDERABLES [...] above. Dictated by Bessy Chang DO (resident). IDr. SHANTI have personally reviewed and interpreted this examination/study. [...] above. Dictated by Bessy Chang DO (resident). Dr. SHANTI Santana have personally reviewed and interpreted this examination/study. [...] Pattern Normal Pattern 08/19/2020 1:41 PM CDT [facility] Comment: Urine immunofixation electrophoresis shows polyclonal IgG and IgA immunoglobulins. Urine immunofixation electrophoresis shows polyclonal kappa and lambda light chains. No monoclonal immunoglobulins detected. Liana Slade PhD, [facility] Clinical Web Press Operator Assistant wire spinner *The electrophoresis pattern and the interpretation have been reviewed and verified by the teaching physician. Urine URINE SPECIMEN COLLECTION, 24 HOURS / Unknown Timed Urine Volume Measurement / Unknown 08/14/2020 2:53 PM CDT 08/14/2020 4:20 PM CDT Gaurang Harman MD LAB - URINE CHEMISTR Y ORDERABLES [address] [address], [facility] [phone] * LEAD URINE (08/11/2020 4:56 PM CDT) Lead Urine ug/L <5.0 0.0 - 5.0 ug/L 08/17/2020 11:08 AM CDT [email or web address] ([facility]) Comment: INTERPRETIVE INFORMATION: Lead, Urine Quantification of urine excretion rates before or after chelation therapy has been used as an indicator of lead exposure. Urinary excretion of >125 mg of lead per 24 hours is usually associated with related evidence of lead toxicity. This test was developed and its performance characteristics determined by [facility]. It has not been cleared or approved by the US Food and Drug Administration. This test was performed in a CLIA certified laboratory and is intended for clinical purposes. Collection Time Hours Random hr 08/17/2020 11:08 AM CDT [email or web address] ([facility]) Comment: Per 24h calculations are provided to [...] Urine Random mL 08/17/2020 11:08 AM CDT [facility] ([facility]) Lead Urine ug/24HR Not Applicable 0.0 - 8.1 ug/d 08/17/2020 11:08 AM CDT [facility] ([facility]) Lead Urine ug/g creat Not Applicable 0.0 - 5.0 ug/g FIRE CHIEF 08/17/2020 11:08 AM CDT [facility] ([facility]) Comment: Unable to accurately calculate the creatinine normalized result due to a low per volume result. Creatinine Urine 32 mg/dL 08/18/19 11:08 AM CDT [facility] ([facility]) Creatinine 24 Hour Urine Not Applicable 500 - 1400 mg/d 08/17/2020 11:08 AM CDT [facility] ([facility]) Comment: Performed by [facility], [address] [place] [address] [email or web address], Jolene Andujar MD, Lab. Director Urine URINE SPECIMEN OBTAINED BY CLEAN CATCH PROCEDURE / Unknown Collection / Unknown 08/11/2020 4:56 PM CDT 08/11/2020 4:56 PM CDT Narrative [facility] ([facility]) - 08/17/2020 11:08 AM CDT Test results should be interpreted with caution. Assay was performed at client's request on a sub-optimal specimen. Gaurang Harman MD LAB - URINE CHEMISTR Y ORDERABLES [facility] ([facility]) [address] * ARSENIC EXPOSURE PROFILE URINE (08/11/2020 4:55 PM CDT) Arsenic Total 24 Hour Urine See Scanned Report 03/08/2021 4:22 PM CDT [facility] ([facility]) Urine URINE / Unknown Collection / Unknown 08/11/2020 4:55 PM CDT 08/11/2020 4:56 PM CDT Gaurang Harman MD LAB - TOXICOLOGY ORD ERABLES [facility] ([facility]) [address] [place] [address], [facility] * MERCURY URINE (08/11/2020 4:55 PM CDT) Mercury Urine <2.5 0.0 - 5.0 ug/L 08/17/2020 11:19 AM CDT [facility] ([facility]) Comment: INTERPRETIVE INFORMATION: Mercury, Urine Urinary mercury [...] developed and its performance characteristics determined by [facility]. It has not been cleared or approved by the US Food and Drug Administration. This test was performed in a CLIA certified laboratory and is intended for clinical purposes. Collection Time Hours Random hr 08/17/2020 11:19 AM CDT [email or web address] ([facility]) Comment: Sub-optimal specimen type. Specimen was received in a noncertified trace element-free tube. Results from noncertified trace element-free tubes may be falsely elevated due to contamination. Concentrations of trace elements should be confirmed with a second specimen transported in a certified trace element-free tube. Specimen tested at client's request. [id number] Per 24h calculations are provided to aid interpretation for collections with a duration of 24 hours and an average daily urine volume. For specimens with notable deviations in collection time or volume, ratios of analytes to a corresponding urine creatinine concentration may assist in result interpretation. Volume 24 Hour Urine Random mL 08/17/2020 11:19 AM CDT [facility] ([facility]) Mercury 24 Hour Urine Not Applicable 0.0 - 20.0 ug/d 08/17/2020 11:19 AM CDT [facility] ([facility]) Mercury ug/g Creat Urine Not Applicable 0.0 - 20.0 ug/g FIRE CHIEF 08/17/2020 11:19 AM CDT [email or web address] ([facility]) Comment: Unable to accurately calculate the creatinine normalized result due to a low per volume result. Creatinine Urine 32 mg/dL 08/18/19 11:19 AM CDT [facility] ([facility]) Creatinine 24 Hour Urine Not Applicable 500 - 1400 mg/d 08/17/2020 11:19 AM CDT [facility] ([facility]) Comment: Performed by [facility], [address] [place] [id number] [email or web address], Jolene Andujar MD, Lab. Director Urine URINE / Unknown Collection / Unknown 08/11/2020 4:55 PM CDT 08/11/2020 4:56 PM CDT Narrative [facility] ([facility]) - 08/17/2020 11:19 AM CDT Test results should be interpreted with caution. Assay was performed at client's request on a sub-optimal specimen. Gaurang Harman MD LAB - URINE CHEMISTR Y ORDERABLES [facility] ([facility]) [address] * SS-A (SJOGREN'S) 52+60 ANTIBODIES (08/11/2020 3:58 PM CDT) SS-A 52 Antibody 0 0 - 40 AU/mL 08/14/2020 8:20 AM CDT [facility] ([facility]) Comment: INTERPRETIVE INFORMATION: SSA-52 (Ro52) ([place]) Antibody, [...] - 40 AU/mL 08/14/2020 8:20 AM CDT [facility] ([facility]) Comment: REFERENCE INTERVAL: SSA-60 (Ro60) ([place]) Antibody, IgG 29 AU/mL or Less ............. Negative 30 - 40 AU/mL ................ Equivocal 41 AU/mL or Greater .......... Positive Performed By: [facility] [address] [place] [address] Senior Svp: Jolene Andujar MD Blood BLOOD SPECIMEN / Unknown Lab Venipuncture / Unknown 08/11/2020 3:58 PM CDT 08/11/2020 5:05 PM CDT Gaurang Harman MD LAB - CHEMISTRY BEVERLY DOMINGUEZ Performing Organization Address City/[facility]/ZIP Co de Phone Number [facility]) [address] [place] [address] * LAB MISC TEST (08/11/2020 3:58 PM CDT) Test Name SEE SCANNED REPORT 01/10/2021 9:19 AM CDT [facility] Blood BLOOD SPECIMEN / Unknown Lab Venipuncture / Unknown 08/11/2020 3:58 PM CDT 08/11/2020 4:21 PM CDT Gaurang Harman MD LAB SEND OUT [facility] [address] [place] [address] * IMMUNOFIXATION BLOOD (08/11/2020 3:58 PM CDT) Immunofixation Serum Normal Pattern Normal Pattern 08/19/2020 1:41 PM CDT [facility] Comment: No monoclonal immunoglobulins detected by serum immunotyping. Liana Slade PhD, [facility] Clinical Web Press Operator Assistant wire spinner *The electrophoresis pattern and the interpretation have been reviewed and verified by the teaching physician. Blood BLOOD SPECIMEN / Unknown Lab Venipuncture / Unknown 08/11/2020 3:58 PM CDT 08/11/2020 5:04 PM CDT Gaurang Harman MD LAB - CHEMISTRY BEVERLY DOMINGUEZ [facility] [place] [address] [place] [address], [facility] [phone] * T4 FREE DIRECT DIALYSIS (08/11/2020 3:58 PM CDT) T4 Free Direct Dialysis 2.0 1.1 - 2.4 ng/dL 08/15/2020 4:38 AM CDT [facility] ([facility]) Comment: FREE T4 BY EQUIL DIALYSIS-TMS: REFERENCE INTERVALS 1ST TRIMESTER ...... 0.7 - 2.0 ng/dL 2ND TRIMESTER ...... 0.7 - 2.1 ng/dL 3RD TRIMESTER ...... 0.5 - 1.6 ng/dL INTERPRETIVE INFORMATION: FT4 ED-TMS This test was developed and its performance characteristics determined by [facility]. It has not been cleared or approved by the US Food and Drug Administration. This test was performed in a CLIA certified laboratory and is intended for clinical purposes. Performed By: [facility] [address] [place] [address] Senior Svp: Jolene Andujar MD Blood BLOOD SPECIMEN / Unknown Lab Venipuncture / Unknown 08/11/2020 3:58 PM CDT 08/11/2020 5:05 PM CDT Santiago Banuelos MD LAB - CHEMISTRY ORD HARMAN Performing Organization Address City/[facility]/ZIP Co de Phone Number ORActionFlow [facility]) [address] * MILLER (SM) ANTIBODY MONICA (08/11/2020 3:58 PM CDT) Miller (MONICA) Antibody 1 0 - 40 AU/mL 08/13/2020 10:29 AM CDT [facility] ([facility]) Comment: INTERPRETIVE INFORMATION: Miller (MONICA) Antibody, IgG 29 AU/mL or Less ............. Negative 30 - 40 AU/mL ................ Equivocal 41 AU/mL or Greater .......... Positive Miller antibody is highly specific (greater than 90 percent) for systemic lupus erythematosus (SLE) but only occurs in 30-35 percent of SLE cases. The presence of antibodies to Miller has variable associations with SLE clinical manifestations. Performed By: [facility] [address] [place] [address] Senior Svp: Jolene Andujar MD Blood BLOOD SPECIMEN / Unknown Lab Venipuncture / Unknown 08/11/2020 3:58 PM CDT 08/11/2020 5:05 PM CDT Gaurang Harman MD LAB - [facility]Y [facility] Organization Address City/State/ZIP Co de Phone Number [facility]) [address] [place] [address], [facility] * GABE BLOOD SCREEN W/REFLEX TITER (08/11/2020 3:58 PM CDT) GABE IgG None Detected None Detected 08/13/2020 10:56 PM CDT [facility] ([facility]) Comment: If suspicion of connective tissue disease is strong and GABE EIA is negative, consider testing for GABE by IFA ([id number]). INTERPRETIVE INFORMATION: Anti-Nuclear Antibodies (GABE), IgG by IDNAIA Antinuclear Antibodies (GABE), IgG by IDANIA: GABE specimens are screened using enzyme-linked immunosorbent assay (IDANIA) methodology. All IDANIA results reported as Detected are further tested by indirect fluorescent assay (IFA) using HEp-2 substrate with an IgG-specific conjugate. The GABE IDANIA screen is designed to detect antibodies against dsDNA, histones, SS-A (Ro), SS-B (La), Miller, Miller/BRACELET FORM COVERER, Scl-70, Gisselle-1, centromeric proteins, other antigens extracted from the HEp-2 cell nucleus. GABE IDANIA assays have been reported to have lower sensitivities than GABE IFA for systemic autoimmune rheumatic diseases (SARD). Negative results do not necessarily rule out SARD. Performed By: [facility] [address] [place] [address] Senior Svp: Jolene Andujar MD Blood BLOOD SPECIMEN / Unknown Lab Venipuncture / Unknown 08/11/2020 3:58 PM CDT 08/11/2020 5:05 PM CDT Gaurang Harman MD LAB - CHEMISTRY BEVERLY DOMINGUEZ Performing Organization Address [facility] de Phone Number [facility]) [address] * METHYLMALONIC ACID BLOOD (08/11/2020 3:58 PM CDT) Methylmalonic Acid 0.19 0.00 - 0.40 umol/L 08/15/2020 4:31 AM CDT [facility] ([facility]) Comment: INTERPRETIVE INFORMATION: MMA Serum/Plasma, Vitamin B12 Status This test was developed and its performance characteristics determined by [facility]. It has not been cleared or approved by the US Food and Drug Administration. This test was performed in a CLIA certified laboratory and is intended for clinical purposes. Performed By: [facility] [address] [place] [address] Senior Svp: Jolene Andujar MD Blood BLOOD SPECIMEN / Unknown Lab Venipuncture / Unknown 08/11/2020 3:58 PM CDT 08/11/2020 5:05 PM CDT Gaurang Harman MD LAB - CHEMISTRY BEVERLY DOMINGUEZ Performing Organization Address [facility] de Phone Number [facility]) [address] * ZINC BLOOD (08/11/2020 3:58 PM CDT) Zinc 67.3 60.0 - 120.0 ug/dL 08/13/2020 7:25 AM CDT [facility] ([facility]) Comment: INTERPRETIVE INFORMATION: Zinc, Serum or Plasma [...] developed and its performance characteristics determined by [facility]. It has not been cleared or approved by the US Food and Drug Administration. This test was performed in a CLIA certified laboratory and is intended for clinical purposes. Performed By: [facility] [employer] [address] [place] [address] Senior Svp: Jolene Andujar MD Blood BLOOD SPECIMEN / Unknown Lab Venipuncture / Unknown 08/11/2020 3:58 PM CDT 08/11/2020 4:21 PM CDT Gaurang Harman MD LAB - CHEMISTRY ORDZuhair DOMINGUEZ Performing Organization Address [facility] Co de Phone Number [facility]) [address] [place] [address] * VITAMIN E (08/11/2020 3:58 PM CDT) [facility] Vitamin E Alpha Tocopherol 9.5 5.5 - 18.0 mg/L 08/15/2020 3:49 PM CDT [facility] ([facility]) Comment: This test was developed and its performance characteristics determined by [facility]. It has not been cleared or approved by the US Food and Drug Administration. This test was performed in a CLIA certified laboratory and is intended for clinical purposes. Vitamin E Gamma Tocopherol 1.2 0.0 - 6.0 mg/L 08/15/2020 3:49 PM CDT [facility] ([facility]) Comment: Performed By: [employer] [address] [place] [address] Senior Svp: Jolene Andujar MD Blood BLOOD SPECIMEN / Unknown Lab Venipuncture / Unknown 08/11/2020 3:58 PM CDT 08/11/2020 5:04 PM CDT Gaurang Harman MD LAB - CHEMISTRY BEVERLY DOMINGUEZ Performing Organization Address [facility] Co de Phone Number [facility]) [address] [place] [address] * COPPER BLOOD (08/11/2020 3:58 PM CDT) Copper 121.3 80.0 - 155.0 ug/dL 08/13/2020 7:25 AM CDT [facility] ([facility]) Comment: INTERPRETIVE INFORMATION: Copper, Serum or Plasma [...] developed and its performance characteristics determined by [facility]. It has not been cleared or approved by the US Food and Drug Administration. This test was performed in a CLIA certified laboratory and is intended for clinical purposes. Performed By: [facility] [address] [place] [address] Senior Svp: Jolene Andujar MD Blood BLOOD SPECIMEN / Unknown Lab Venipuncture / Unknown 08/11/2020 3:58 PM CDT 08/11/2020 4:21 PM CDT Gaurang Harman MD LAB - CHEMISTRY BEVERLY DOMINGUEZ [facility] Organization Address City/State/ZIP Co de Phone Number [facility]) [address] [place] [address] * SS-B (SJOGREN'S) ANTIBODY (08/11/2020 3:58 PM CDT) SS-B Antibody 0 0 - 40 AU/mL 08/14/2020 7:44 AM CDT [facility] ([facility]) Comment: INTERPRETIVE INFORMATION: SSB (La) (MONICA) Ab, [...] (PSS) also have this antibody. Performed By: [facility] [address] [place] [address] Senior Svp: Jolene Andujar MD Blood BLOOD SPECIMEN / Unknown Lab Venipuncture / Unknown 08/11/2020 3:58 PM CDT 08/11/2020 5:04 PM CDT Gaurang Harman MD LAB - CHEMISTRY ORDE ANGELICA [facility]) [address] [place] [address], [facility] * DNA ANTIBODY DOUBLE STRANDED (08/11/2020 3:58 PM CDT) Pathologist [facility] dsDNA Antibody None Detected None Detected 08/13/2020 1:38 PM CDT [facility] ([facility]) Comment: INTERPRETIVE INFORMATION: Double-Stranded DNA (dsDNA) Antibody, [...] recommendations for testing may be found at http://www.[employer].com/Topics/AutoimmuneDz/ConnectiveTissueDz/i ndex.html. Performed By: [facility] [address] [place] [address] Senior Svp: Jolene Andujar MD Blood BLOOD SPECIMEN / Unknown Lab Venipuncture / Unknown 08/11/2020 3:58 PM CDT 08/11/2020 5:05 PM CDT Gaurang Harman MD LAB - HEMATOLOGY ORD ERABLES Performing Organization Address [facility]/ZIP Co de Phone Number [facility]) [address] * ALDOLASE (08/11/2020 3:58 PM CDT) Pathologist [facility] Aldolase 4.8 1.5 - 8.1 U/L 08/13/2020 6:48 AM CDT [facility] ([facility]) Comment: REFERENCE INTERVAL: Aldolase Access complete set of age- and/or gender-specific reference intervals for this test in the [employer] [facility] Test Directory (Immunovaccine). Performed By: [facility] [address] [place] [address] Senior Svp: Jolene Andujar MD Blood BLOOD SPECIMEN / Unknown Lab Venipuncture / Unknown 08/11/2020 3:58 PM CDT 08/11/2020 5:05 PM CDT Gaurang Harman MD LAB - CHEMISTRY ORDE RABLES Performing Organization Address [facility] Co de Phone Number [facility] ([facility]) [address] * KAPPA/LAMBDA LITE CHAIN FREE PANEL (08/11/2020 3:58 PM CDT) Pathologist [facility] [place] Quant Free Light Chain 13.30 3.30 - 19.40 mg/L 08/14/2020 7:34 AM CDT [facility] ([facility]) Comment: INTERPRETIVE INFORMATION: [place] Qnt Free Light Chains Undetected antigen excess is a rare event but cannot be excluded. Free light chain results should always be interpreted in conjunction with other clinical and laboratory findings. Lambda Free Light Chain Quantitative 10.71 5.71 - 26.30 mg/L 08/14/2020 7:34 AM CDT [facility] ([facility]) [place]/Lambda Free Light Chain ratio 1.24 0.26 - 1.65 08/14/2020 7:34 AM CDT [facility] ([facility]) Comment: Performed By: [facility] [address] [place] [address] Senior Svp: Jolene Andujar MD Blood BLOOD SPECIMEN / Unknown Lab Venipuncture / Unknown 08/11/2020 3:58 PM CDT 08/11/2020 5:06 PM CDT Gaurang Harman MD LAB - CHEMISTRY BEVERLY DOMINGUEZ [facility]) [address] * (ABNORMAL) ERYTHROCYTE SEDIMENTATION RATE (08/11/2020 3:58 PM CDT) [facility] Erythrocyte Sedimentation Rate Westergren 58(H) 0 - 30 MM/HR 08/11/2020 4:45 PM CDT [facility] Blood BLOOD SPECIMEN / Unknown Lab Venipuncture / Unknown 08/11/2020 3:58 PM CDT 08/11/2020 4:24 PM CDT Gaurang Harman MD LAB - HEMATOLOGY TOSHA HAMMER Performing Organization Address [facility]/ZIP Co de Phone Number [address] [address], [place] [phone] * CK BLOOD (08/11/2020 3:58 PM CDT) [facility] CK Total 128 30 - 200 Units/L 08/11/2020 5:24 PM CDT [facility] Blood BLOOD SPECIMEN / Unknown Lab Venipuncture / Unknown 08/11/2020 3:58 PM CDT 08/11/2020 4:24 PM CDT Gaurang Harman MD LAB - CHEMISTRY BEVERLY DOMINGUEZ Performing Organization Address [facility]/ZIP Co de Phone Number [address] [address], [place] [phone] * T4 FREE (08/11/2020 3:58 PM CDT) Only the most recent of2 resultswithin the time period is included. [facility] T4 Free 1.1 0.7 - 1.5 ng/dL 08/11/2020 5:22 PM CDT [facility] Blood BLOOD SPECIMEN / Unknown Lab Venipuncture / Unknown 08/11/2020 3:58 PM CDT 08/11/2020 4:24 PM CDT Santiago Banuelos MD LAB - CHEMISTRY ORD ERABLES [facility] [address] [place] [address], [facility] [phone] * MO US GUIDED NEEDLE PLACEMENT, MO US SOFT TISS HEAD&NCK R-T IMG, MO FNA BX W US GDN 1ST LES (07/23/2020 2:18 PM BOAT MECHANIC) Narrative Santiago Banuelos MD - 07/23/2020 2:18 PM BOAT MECHANIC Santiago Banuelos MD 07/23/2020 2:36 PM Ultrasound Of Thyroid Ultrasound of the Thyroid PHYSICIAN Santiago Banuelos MD FELLOW NONE Test Date: 07/23/2020 Test Indication: Patient Active Problem List: Typical atrial flutter Thyroid nodule Goiter, nontoxic, multinodular Referring Physician: Dr. Kristen Graf, PRINCIPAL TECHNICAL SPECIALIST-COMMANDING OFFICER [employer]AR[place] Procedure Preformed: Ultrasound and Biopsy Nodule Size: [...] Thyroid Date: 07/23/2020 Referring MD: Kristen Graf APRN-COMMANDING OFFICER [place] Physician: Santiago Banuelos MD Fellow: NONE History: [...] guidelines. Report dictated by Cas Cordero MD (radiology physician assistant). ACR TI-RADS recommendations TR5 (>=7 points) (risk [...] Cordero Dr on 07/16/2020 11:[address] BIA Santana have personally reviewed and interpreted this examination/study. [...] ASPIRATION - THYROID (STL) (07/23/2020 1:31 PM BOAT MECHANIC) Case Report Medical Cytology Report Case: [id number] Authorizing Provider: Santiago Banuelos MD Collected: 07/23/2020 01:31 PM Ordering Location: [facility] Endocrinology, Received: 07/23/2020 03:14 PM Diabetes and Metabolism Pathologist: Any Baez MD Specimen: Thyroid Mass , RIGHT NODULE 07/28/2020 2:59 PM CDT [facility] Specimen Adequacy Adequate cellularity for evaluation. 07/28/2020 2:59 PM CDT [facility] Final Diagnosis Thyroid, right nodule, FNA: - Benign - Consistent with a benign follicular nodule 07/28/2020 2:59 PM CDT [facility] Clinical History Right thyroid nodule 07/28/2020 2:59 PM CDT [facility] Gross Description 1 pap stained slide and 1 cell block from 15cc bloody collection fluid 07/28/2020 2:59 PM CDT [facility] Microscopic Description Moderate amount of colloid and moderate sized follicles. No significant macrophages seen. 07/28/2020 2:59 PM CDT [facility] Disclaimer The performance characteristics of all immunohistochemical and indirect immunofluorescence stains (if any) cited in this report were determined by the Histopathology Laboratory of [facility]. Some of these tests rely on the use of analyte-specific reagents and are subject to specific labeling requirements by the US Food and Drug Administration. Such tests were developed by the Histology Laboratory of [facility] and have not been cleared or approved [...] the attending (teaching) pathologist. 07/28/2020 2:59 PM CDT [facility] Embedded Images 07/28/2020 2:59 PM CDT [facility] Pathology/Cytolo gy MASS OF THYROID GLAND / Unknown Collection / Unknown 07/23/2020 1:31 PM BOAT MECHANIC 07/23/2020 3:14 PM BOAT MECHANIC Santiago Banuelos MD LAB - PATHOLOGY/CYT OLOGY ORDERABLES Performing Organization Address City/State/[facility] Co de Phone Number [facility] [address] [phone] * US THYROID (07/16/2020 10:56 AM BOAT MECHANIC) Anatomical Region Laterality Modality Chest Ultrasound 07/16/2020 10:4 2 AM BOAT MECHANIC Impressions 07/16/2020 2:44 PM BOAT MECHANIC IMPRESSION: 1. 2.8 cm right thyroid lobe nodule (TI-RADS 3), recommend fine-needle aspiration. 2. 0.5 cm left thyroid lobe nodule (TI-RADS 4). No further imaging evaluation is needed according to ACR TI-RADS guidelines. Report dictated by Cas Cordero MD (radiology physician assistant). ACR TI-RADS recommendations TR5 (>=7 points) (risk [...] 2:44 PM . Narrative 07/16/2020 2:44 PM BOAT MECHANIC EXAMINATION: THYROID SONOGRAM HISTORY: 79-year-old female with [...] guidelines. Report dictated by Cas Cordero MD (radiology physician assistant). ACR TI-RADS recommendations TR5 (>=7 points) (risk [...] US This report was approved by Cas oCrdero Dr on 07/16/2020 11:55 AM . IDr. BIA have personally reviewed and interpreted this examination/study. This report was electronically signed by BIA THOMPSON on 07/16/2020 2:44 PM. Kristen Graf PRINCIPAL TECHNICAL SPECIALIST-COMMANDING OFFICER [employer]ARAGE US ORDERABLES * MRI THORACIC SPINE WO CONTRAST (05/25/2020 10:32 AM BOAT MECHANIC) Anatomical Region Laterality Modality Chest Magnetic Resonan ce 05/25/2020 12:2 1 PM BOAT MECHANIC Impressions 05/25/2020 1:49 PM BOAT MECHANIC IMPRESSION: 1. No acute fracture, marrow edema [...] 1:49 PM . Narrative 05/25/2020 1:49 PM BOAT MECHANIC EXAMINATION: 1. MRI OF THE CERVICAL SPINE [...] normal. A small perineural cyst in the [id number] neural foramen is visible. L2-L3: The combination [...] LUMBAR SPINE WO CONTRAST (05/25/2020 10:32 AM BOAT MECHANIC) Anatomical Region Laterality Modality Spine Magnetic Resonan ce 05/25/2020 12:2 1 PM BOAT MECHANIC Impressions 05/25/2020 1:49 PM BOAT MECHANIC IMPRESSION: 1. No acute fracture, marrow edema [...] 1:49 PM . Narrative 05/25/2020 1:49 PM BOAT MECHANIC EXAMINATION: 1. MRI OF THE CERVICAL SPINE [...] normal. A small perineural cyst in the [id number] neural foramen is visible. L2-L3: The combination [...] CERVICAL SPINE WO CONTRAST (05/25/2020 10:32 AM BOAT MECHANIC) Anatomical Region Laterality Modality Pelvis Magnetic Resonan ce 05/25/2020 12:2 1 PM BOAT MECHANIC Impressions 05/25/2020 1:49 PM BOAT MECHANIC IMPRESSION: 1. No acute fracture, marrow edema [...] 1:49 PM . Narrative 05/25/2020 1:49 PM BOAT MECHANIC EXAMINATION: 1. MRI OF THE CERVICAL SPINE [...] normal. A small perineural cyst in the [id number] neural foramen is visible. L2-L3: The combination [...] ENTIRE 2 OR 3VW (05/20/2020 1:20 PM BOAT MECHANIC) Anatomical Region Laterality Modality Spine Radiographic Kathleen ging 05/20/2020 4:05 PM BOAT MECHANIC Impressions 05/20/2020 4:08 PM BOAT MECHANIC IMPRESSION: Thoracolumbar scoliosis with sagittal plane imbalance. This report was electronically signed by GIL BERNARD MD on 05/20/2020 4:08 PM . Narrative 05/20/2020 4:08 PM BOAT MECHANIC Exam: XR SPINE ENTIRE 2 VW History: [...] COMPLETE PFT W/WO BRONCHODILATOR (05/18/2020 10:49 AM BOAT MECHANIC) Impressions Reza Paul MD - 05/18/2020 10:49 AM BOAT MECHANIC [facility] DEPARTMENT OF PULMONARY, CRITICAL CARE, AND SLEEP MEDICINE PULMONARY FUNCTION TESTS Beth Aaron 05/20/2020 INTERPRETATION Please see technologist's comments mentioned [...] of Pulmonary, Critical Care and Sleep Medicine [facility] Pager: [phone] I have reviewed this study and agree with the interpretation by the Ore Miner [employer]asting. Reza Paul M.D. Glass Production Machine Operator of Internal Medicine Division of Pulmonary, Critical Care and Sleep Medicine [facility] Narrative Reza Paul MD - 05/18/2020 10:49 AM BOAT MECHANIC Maggie Paredes MD 05/20/2020 5:22 PM Marcelina Parisi MD RESPIRATORY THERAPY ORDERABLES * IMAGING RADIOLOGY XRAY RESULTS ORDER (05/12/2020 12:16 PM BOAT MECHANIC) Anatomical Region Laterality Modality Other Narrative 05/12/2020 12:16 PM BOAT MECHANIC Ordered by an unspecified provider. Scanned Document IMAGING * CBC W/O DIFFERENTIAL (05/12/2020 7:03 AM BOAT MECHANIC) Only the most recent of2 resultswithin the [...] 12.5 fL [facility] Comment: Test Performed at: [facility] [address] [place] [address] ENRICO WYNN,DO,MPH 05/12/2020 7:03 AM BOAT MECHANIC 05/12/2020 7:04 AM BOAT MECHANIC Kristen AGUILAR LAB - HEMATOLOG Y ORDERABLES [facility] [id number] [place] [address] Care Teams Sericulture Teacher Relationship Specialty Start Date End Date Kristen Graf, JEFF [address] [address] PCP - General 05/24/21
--- OUTSIDE RECORDS SUMMARY | 2024-07-26 10:14 | XMS_ITS | Clinical Summary ---
Author Organization [facility] Address [address] [facility] [place] [address] Phone Care Team Providers Care Agronomy Research Manager Name Role Phone Minh Thornton MD Primary Care Provider [phone] Allergies No known active allergies Medications CALCIUM CARBONATE (CALCIUM 500 ORAL) Take by mouth. Activ e MULTIVITAMINS WITH FLUORIDE (MULTI-VITAMIN ORAL) Take by mouth. Activ e clobetasol (TEMOVATE) 0.05 % Lotion Apply to affected area. Active XIIDRA 5 % Dropperette 8 Active XARELTO 20 mg Tablet 8 Active vit C/E/Zn/copra sampler/lut/z ea/bio/saf (RETAINE VISION ORAL) Take by mouth. [...] on file Legal Sex Female 3:34 AM TECHNICAL PRODUCT MANAGER Gender Identity Not on file Sexual Orientation Not on file Occupation Industry Job Start Date Job End Date Not on file Not on file Not on file Not on file Last Filed Vital Signs Vital Sign Reading Time Taken Comments Blood Pressure 122/78 03/19/2024 10:45 AM TECHNICAL PRODUCT MANAGER Pulse - - Temperature - - Respiratory Rate - - Oxygen Saturation - - Inhaled Oxygen Concentration - - Weight 73 kg (161 lb) 03/19/2024 10:45 AM TECHNICAL PRODUCT MANAGER Height 167.6 cm (5' 6 ) 03/19/2024 10:45 AM TECHNICAL PRODUCT MANAGER Body Mass Index 25.99 03/19/2024 10:45 AM TECHNICAL PRODUCT MANAGER Plan of Treatment Health Maintenance Due Date Last Done Comments DTAP/TDAP/TD VACCINES (1 - Tdap) 08/30/1959 ZOSTER VACCINE (1 of 2) 1990 RSV VACCINE (60+ or ) (1 - 1-dose 75+ series) 08/30/2015 INFLUENZA VACCINE (#1) 2023 1, 02/06/2020, 02/27/2018 OSTEOPOROSIS SCREENING 06/17/2024 3, 06/17/2022, 10/22/2012, Additional history exists BREAST CANCER SCREENING 03/14/2025 03/14/20 24, 01/24/2020, 12/27/2018, Additional history exists PNEUMOCOCCAL VACCINE 50+ YEARS Completed 01/06/2023 , 02/13/2020 Procedures Procedure [...] [employer] P[employer] Care Teams Agronomy Research Manager Relationship Specialty Start Date End Date Minh Thornton MD PCP - General Internal Medicine 01/01/15
[2024-07-26 10:29] LABS: Alanine Aminotransferase 16 U/L (6-35); Albumin Level 3.2 g/dL (3.5-5.1); Alkaline Phosphatase 106 U/L (38-126); Anion Gap 6 mmol/L (4-12); Aspartate Amino Transferase 18 U/L (14-36); Bilirubin,Total 0.9 mg/dL (0.2-1.3); Blood Urea Nitrogen 23 mg/dL (7-17); Calcium 8.8 mg/dL (8.4-10.2); Carbon Dioxide 29 mmol/L (22-30); Chloride 101 mmol/L (98-107); Estimated CRCL calculation 38 ml/min; Estimated Glomerular Filt Rate > 60; Glucose 115 mg/dL (65-110); Potassium 3.3 mmol/L (3.4-5.0); Sodium 136 mmol/L (137-145)
[2024-07-26 11:00] LABS: Basophils Percent Auto 0.2 % (0.2-1.2); Eosinophils Absolute Auto 0.1 K/mm3 (0-0.3); Eosinophils Percent Auto 0.5 % (0-4.4); Hematocrit 28.6 % (37.0-47.0); Hemoglobin 9.3 g/dL (12.0-15.0); Immature Granulocyte Absolute 0.06 K/mm3 (0.00-0.031); Immature Granulocyte Percent A 0.5 % (0-0.5); Lymphocytes Percent Auto 12.5 % (18.3-44.2); Mean Corpuscular HGB Conc 32.5 g/dl (32-36); Mean Corpuscular Hemoglobin 31.1 pg (26-34); Mean Corpuscular Volume 95.7 fl (80-100); Mean Platelet Volume 9.6 fl (7.4-10.4); Monocytes Absolute Auto 1.2 K/mm3 (0.1-0.6); Monocytes Percent Auto 10.8 % (2.6-8.5); Neutrophils Absolute Auto 8.5 K/mm3 (1.3-6.7); Neutrophils Percent Auto 75.5 % (45.5-73.1); Platelet Count Result 142 k/mm3 (150-375); Red Blood Count 2.99 M/mm3 (4.2-5.4); Red Cell Distribution Width 15.7 % (11.5-14.5); White Blood Count 11.2 K/mm3 (4.5-10.0)
--- NOTE | 2024-07-26 11:08 | PC.NURSE ---
Patient placed on 1L NC due to oxygen dropping into the 80s.
--- OUTSIDE RECORDS SUMMARY | 2024-07-26 11:23 | XMS_ITS | Encounter Summary ---
Author Organization [facility] Health Address [address] [facility] [place] [address] Care Team Providers Care Supplier Diversity Director Name Role Phone Kristen Graf APRN-TRUCKLOAD OWNER OPERATOR Primary Care Provider Reason for Visit * Reason Onset Date Comments Nausea 07/25/2024 Encounter Details Date Type Department Care Team (Late st Contact Info) Description 07/25/2024 Telephone [facility] - [facility] [address] [facility] [address] [place] [phone] Mani Green RN Nausea Social History Tobacco [...] Visit [facility] Geriatrics [address] [facility] [place] [address] Kristen Graf, NATIONAL SERVICE OFFICER-TRUCKLOAD OWNER OPERATOR [address] [address] 08/20/2024 1:10 AM CDT Clinical Support [facility] - Cardiology [address] [facility], [address] [address] 10/10/2024 10:20 AM CDT Office Visit [facility] - Cardiology [address] [facility], [address] [address] Bharathi Higuera MD [address] [facility], [place] [address] [place] [address] 11/19/2024 1:10 AM CDT Clinical Support [facility] - Cardiology [address] [facility], [facility] [address] [place] [address] 01/24/2025 10:30 AM CDT Office Visit [facility] - Pulmonology [address] [facility], [place] [phone] Jack Milian MD [address] [facility] [address] DIV OF PULM/[place] [address] documented as of this encounter Goals Goal [...] on filedocumented in this encounter Care Teams Supplier Diversity Director Relationship Specialty Start Date End Date Kristen Graf APRN-TRUCKLOAD OWNER OPERATOR [address] [facility] [address] [place] [address] PCP - General 05/24/21 documented as of this encounter
--- OUTSIDE RECORDS SUMMARY | 2024-07-26 11:24 | XMS_ITS | Patient Health Summary ---
Author Organization [facility] Address [address] [place] [address] Care Team Providers Care Pulpwood Buyer Name Role Phone Kristen Graf APRN-[facility] Primary Care Provider Note from [facility],non-owned Affiliates and Associated Physician Practices is amultiple site organization consisting of ambulatory clinics and hospital sitesin [place], [place], [place] and [place]. This disclosure is being madepursuant to the Care Everywhere program and may not contain all information available regarding this patient. 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, nontoxic, multinodular Immunizations * Covid HearMeOut primary monovalent 12+ yr 0.3mL Purple cap(Given [...] Comments Blood Pressure 96/61 07/19/2024 9:02 AM DIRECTOR OF VALUATION Pulse 80 07/19/2024 9:02 AM DIRECTOR OF VALUATION Temperature 36.7 C (98.1 F) 03/28/2024 1:41 PM DIRECTOR OF VALUATION Respiratory Rate 17 07/19/2024 9:02 AM DIRECTOR OF VALUATION Oxygen Saturation 92% 07/19/2024 9:02 AM DIRECTOR OF VALUATION Inhaled Oxygen Concentration - - Weight 70.7 kg (155 lb 12.8 oz) 07/19/2024 9:02 AM DIRECTOR OF VALUATION Height 167.6 cm (5' 6 ) 07/19/2024 9:02 AM DIRECTOR OF VALUATION Body Mass Index 25.15 07/19/2024 9:02 AM DIRECTOR OF VALUATION Medical Devices Implanted Type Area Sales And Marketing Agent Device Identifier Shelf Expiration Date Model / Serial / Lot Lead Cp Nv Pace 52cm Strd Elut Pltn Amada - [id number] Implanted:Qty: 1 on 08/16/2021 by Bharathi Higuera MD at [facility] Right: Ventricle [employer] 04/13/2023 5076-52 / [id number] / Description:RV Lead Lead Cp Nv Pace 45cm Strd Elut Pltn Amada - [id number] Implanted:Qty: 1 on 08/16/2021 by Bharathi Higuera MD at [facility] Right: Atrium [employer] 05/06/2023 5076-45 / [id number] / Description:RA lead Pacemkr Cundiyo [employer] Crd - [id number] Implanted:Qty: 1 on 08/16/2021 by Bharathi Higuera MD at [facility] Right: Chest [employer] 01/09/2023 [id number] / [id number] / Description:ICD Procedures * DIFFERENTIAL MANUAL(Performed 07/19/2024) Performed for COVID-19, Pneumonia due to COVID-19 virus * CBC W AUTO DIFFERENTIAL(Performed 07/19/2024) Performed for COVID-19, Pneumonia due to COVID-19 virus * BASIC METABOLIC PANEL (CALCIUM TOTAL)(Performed 07/19/2024) Performed for COVID-19, Pneumonia due to COVID-19 virus * OR PM/ICD REMOTE TECH SERV(Performed 05/26/2024) Performed for SSS (sick sinus syndrome) (HCC) * OR PM DEVICE INTERROGATE REMOTE(Performed 05/26/2024) Performed for SSS (sick sinus syndrome) (HCC) * CARDIAC PROCEDURE ORDER(Performed 05/20/2024) * ECHO COMPLETE(Performed 04/08/2024) Performed for Essential hypertension * OR PM/ICD REMOTE TECH SERV(Performed 02/24/2024) Performed for SSS (sick sinus syndrome) (HCC) * OR PM DEVICE INTERROGATE REMOTE(Performed 02/24/2024) Performed for [...] Stage 3a chronic kidney disease (HCC) * OR DRAIN/INJECT LARGE JOINT/BURSA(Performed 07/20/2023) Performed for Bilateral primary osteoarthritis of knee * OR DRAIN/INJECT LARGE JOINT/BURSA(Performed 07/20/2023) Performed for Bilateral primary osteoarthritis of knee * LIPID PROFILE(Performed 06/12/2023) Performed for Screening cholesterol level * COMPREHENSIVE METABOLIC PANEL(Performed 06/12/2023) Performed for Primary hypertension * CBC W AUTO DIFFERENTIAL(Performed 06/12/2023) Performed for Primary hypertension * US ABDOMEN COMPLETE(Performed 06/12/2023) Performed for Abdominal pain, RLQ (right lower quadrant) * CARDIAC PROCEDURE ORDER(Performed 03/31/2023) * OR PM DEVICE EVAL IN PERSON(Performed 03/23/2023) Performed for Typical atrial flutter (HCC), Hypertension, unspecified type * TSH REFLEX FREE T4(Performed 01/06/2023) Performed for Thyroid nodule, Primary hypertension * COMPREHENSIVE METABOLIC PANEL(Performed 01/06/2023) Performed for Thyroid nodule, Primary hypertension * CBC W AUTO DIFFERENTIAL(Performed 01/06/2023) Performed for Thyroid nodule, Primary hypertension * OR DRAIN/INJECT LARGE JOINT/BURSA(Performed 11/08/2022) Performed for Bilateral primary osteoarthritis of knee * OR DRAIN/INJECT LARGE JOINT/BURSA(Performed 11/08/2022) Performed for Bilateral primary osteoarthritis of knee * XR PELVIS W LEFT HIP 2VW(Performed 11/08/2022) Performed for Pain of left hip * CARDIAC PROCEDURE ORDER(Performed 10/25/2022) * OR PM DEVICE EVAL IN PERSON(Performed 09/23/2022) Performed for SSS (sick sinus syndrome) (HCC) * OR DESTRUCT BENIGN LESION, 1-14(Performed 08/11/2022) Performed for Seborrheic keratosis, inflamed * BASIC METABOLIC PANEL (CALCIUM TOTAL)(Performed 07/01/2022) Performed for Essential hypertension * CARDIAC PROCEDURE ORDER(Performed 06/29/2022) * OR PM DEVICE EVAL IN PERSON(Performed 06/23/2022) Performed [...] (HCC) * CARDIAC PROCEDURE ORDER(Performed 03/29/2022) * OR PM DEVICE EVAL IN PERSON(Performed 03/24/2022) Performed for Hypertension, unspecified type, Palpitations, SSS (sick sinus syndrome) (HCC) * OR DESTRUCT BENIGN LESION, 1-14(Performed 03/15/2022) Performed for Seborrheic keratosis, inflamed * OR DRAIN/INJECT LARGE JOINT/BURSA(Performed 02/15/2022) Performed for Bilateral primary osteoarthritis of knee * OR DRAIN/INJECT LARGE JOINT/BURSA(Performed 02/15/2022) Performed for Bilateral primary osteoarthritis of knee * XR FOOT RIGHT 3VW OR MORE(Performed 02/14/2022) Performed for Right foot pain * TSH REFLEX FREE T4(Performed 02/04/2022) Performed for Thyroid nodule, Goiter, nontoxic, multinodular, Multiple thyroid nodules * OR US SOFT TISS HEAD&NCK R-T IMG(Performed 02/04/2022) Performed for Thyroid nodule, Goiter, nontoxic, multinodular, Multiple thyroid nodules * CBC W AUTO DIFFERENTIAL(Performed 02/03/2022) Performed for Essential hypertension * BASIC METABOLIC PANEL (CALCIUM TOTAL)(Performed 02/03/2022) Performed for Essential hypertension * OR BIOPSY, NAIL UNIT(Performed 01/25/2022) Performed for Nail dystrophy * FUNGUS REGINA - POINT OF CARE (AMB) SLU(Performed 01/25/2022) Performed for Tinea pedis of right foot * OR DESTRUCT BENIGN LESION, 1-14(Performed 01/25/2022) Performed for Seborrheic keratosis, inflamed * CULTURE FUNGUS SKIN HAIR NAIL+FUNGUS SMEAR(Performed 01/25/2022) * DERMATOPATHOLOGY(Performed 01/25/2022) Performed for Nail dystrophy * COMPREHENSIVE METABOLIC PANEL(Performed 01/20/2022) Performed for COVID-19 * CBC W AUTO DIFFERENTIAL(Performed 01/20/2022) Performed for COVID-19 * CARDIAC PROCEDURE ORDER(Performed 10/25/2021) * OR DRAIN/INJECT LARGE JOINT/BURSA(Performed 10/22/2021) Performed for Pain in both lower extremities, Bilateral primary osteoarthritis of knee, Effusion ofright knee * OR DRAIN/INJECT LARGE JOINT/BURSA(Performed 10/22/2021) Performed for Pain [...] SSS (sick sinus syndrome) (HCC), Bradycardia * OR DESTRUCT BENIGN LESION, 1-14(Performed 08/05/2021) Performed for [...] thyroid nodules, Hypertension, unspecified type, Hyponatremia * OR US SOFT TISS HEAD&NCK R-T IMG(Performed 01/29/2021) [...] Performed for Typical atrial flutter (HCC) * OR CYSTOURETHROSCOPY(Performed 09/08/2020) Performed for History of blood [...] TSH(Performed 07/23/2020) * T4 FREE(Performed 07/23/2020) * OR FNA BX W US GDN 1ST LES(Performed 07/23/2020) Performed for Thyroid nodule, Goiter, nontoxic, multinodular * OR US SOFT TISS HEAD&NCK R-T IMG(Performed 07/23/2020) Performed for Thyroid nodule, Goiter, nontoxic, multinodular * OR US GUIDED NEEDLE PLACEMENT(Performed 07/23/2020) Performed for [...] * (ABNORMAL) DIFFERENTIAL MANUAL (07/19/2024 9:46 AM DIRECTOR OF VALUATION) Neutrophil % 81(H) 41 - 74 % 07/19/2024 10:57 AM [facility] Lymphocyte % 10(L) 17 - 47 % 07/19/2024 10:57 AM [facility] Monocyte % 7 3 - 11 % 07/19/2024 10:57 AM [facility] Eosinophil % 2 0 - 7 % 07/19/2024 10:57 AM [facility] Neutrophil Absolute 11.50(H) 1.60 - 7.50 x10E9/L 07/19/2024 10:57 AM [facility] Lymphocyte Absolute 1.42 1.00 - 4.40 x10E9/L 07/19/2024 10:57 AM [facility] Monocyte Absolute 0.99 0.15 - 1.00 x10E9/L 07/19/2024 10:57 AM [facility] Eosinophil Absolute 0.28 0.00 - 0.60 x10E9/L 07/19/2024 10:57 AM [facility] RBC Morphology NORMAL 07/19/2024 10:57 AM [facility] Blood BLOOD SPECIMEN / Unknown Lab Venipuncture / Unknown 07/19/2024 9:46 AM DIRECTOR OF VALUATION 07/19/2024 10:17 AM [facility] Kristen Graf APPLICATION COORDINATOR-[facility] - HEMATOLOG Y ORDERABLES [facility] [address] [place] [address], [facility] [phone] * (ABNORMAL) CBC W/ DIFFERENTIAL (07/19/2024 9:46 AM DIRECTOR OF VALUATION) Only the most recent of16 resultswithin the time period is included. Pathologist [facility] WBC 14.2(H) 4.0 - 10.7 x10E9/L 07/19/2024 10:57 AM [facility] RBC Count 3.48(L) 3.90 - 5.20 x10E12/L 07/19/2024 10:57 AM [facility] Hemoglobin 10.8(L) 11.9 - 15.8 g/dL 07/19/2024 10:57 AM [facility] Hematocrit 32.9(L) 34.8 - 46.1 % 07/19/2024 10:57 AM [facility] MCV 94.5 80.0 - 98.0 fL 07/19/2024 10:57 AM [facility] MCH 31.0 26.7 - 33.6 pg 07/19/2024 10:57 AM [facility] MCHC 32.8 31.7 - 36.3 g/dL 07/19/2024 10:57 AM [facility] RDW-CV 15.9(H) 11.3 - 14.8 % 07/19/2024 10:57 AM [facility] Platelet Count 171 150 - 420 x10E9/L 07/19/2024 10:57 AM [facility] MPV 9.2 7.8 - 11.4 fL 07/19/2024 10:57 AM [facility] Blood BLOOD SPECIMEN / Unknown Lab Venipuncture / Unknown 07/19/2024 9:46 AM DIRECTOR OF VALUATION 07/19/2024 10:17 AM [facility] Kristen Graf APRN-[facility] - HEMATOLOG Y ORDERABLES [facility] [address] [place] [id number], [facility] [phone] * (ABNORMAL) BASIC METABOLIC PANEL (CALCIUM TOTAL) (07/19/2024 9:46 AM [facility]) Only the most recent of12 resultswithin the time period is included. BUN 23 7 - 26 mg/dL 07/19/2024 10:53 AM [facility] Creatinine 0.89 0.56 - 0.96 mg/dL 07/19/2024 10:53 AM [facility] Sodium 140 136 - 145 mmol/L 07/19/2024 10:53 AM [facility] Potassium 3.4(L) 3.5 - 4.5 mmol/L 07/19/2024 10:53 AM [facility] Chloride 105 98 - 107 mmol/L 07/19/2024 10:53 AM [facility] CO2 27 22 - 29 mmol/L 07/19/2024 10:53 AM [facility] Glucose 149(H) 70 - 99 mg/dL 07/19/2024 10:53 AM [facility] Calcium 8.4 8.4 - 10.2 mg/dL 07/19/2024 10:53 AM [facility] Anion Gap 8 6 - 16 07/19/2024 10:53 AM [facility] BUN/Creatinine Ratio 26(H) 7 - 23 07/19/2024 10:53 AM [facility] Osmolality Calculated 296(H) 275 - 295 mOsm/kg 07/19/2024 10:53 AM [facility] eGFR by CKD-EPI 64(L) >=90 mL/min/1.7 3 m2 07/19/2024 10:53 AM [facility] Blood BLOOD SPECIMEN / Unknown Lab Venipuncture / Unknown 07/19/2024 9:46 AM DIRECTOR OF VALUATION 07/19/2024 10:17 AM [facility] Kristen Graf APPLICATION COORDINATOR-[facility] - CHEMISTRY ORDERABLES Performing Organization Address [facility]/State/ZIP Co de Phone Number [facility] [address] [place] [phone], [facility] [phone] * OR PM DEVICE INTERROGATE REMOTE, OR PM/ICD REMOTE TECH SERV (05/26/2024 4:54 PM DIRECTOR OF VALUATION) Narrative Nanette Aldridge MD - 05/26/2024 4:54 PM DIRECTOR OF VALUATION Nanette Aldridge MD 05/26/2024 4:57 PM Remote [...] ERABLES * ECHO COMPLETE (04/08/2024 11:33 AM DIRECTOR OF VALUATION) RVOT diam Doppler 2.584 cm [facility] CV FUJI PACS IVSd 2D 1.274 cm [facility] CV [facility] I PACS LVIDd 4.316 cm SSM [...] PACS RVOT VTI 14.441 cm [facility] CV [facility] I PACS AV mn grad 3.949 mmHg [facility] CV FU JI PACS AV pk nahun 142.885 cm/s [facility] CV FUJ I PACS AV VTI 32.302 cm [facility] CV [facility] I PACS MV A pk nahun [...] 221.432 cm [facility] CV FUJ I PACS OR VTI 77.979 cm [facility] CV FUJ I PACS AR DECEL TIME 2.132 s [facility] CV FUJI PACS RA area 20.245 cm [facility] CV FUJI PACS RV-alvarado basal diam 3.721 cm [facility] CV FUJI PACS RV-alvarado mid diam 3.694 cm [facility] CV FUJI PACS TAPSE 2.15 cm [facility] CV FUJ I PACS OR PEAK END DIASTOLIC VELOCITY 141.199 cm/s [facility] CV FUJI PACS OR Decel [place] 191.392 cm/s2 S[facility] C V FUJI PACS [...] Laterality Modality Ultrasound 04/08/2024 10:5 3 AM DIRECTOR OF VALUATION Narrative 04/09/2024 7:54 AM DIRECTOR OF VALUATION Summary * Findings consistent with sclerotic valves, mild MR and AR, at least moderate TR, trace OR, no valve stenosis, mild effects of HTN, [...] 10:53 AM Patient Status: O Study Site: [facility] Primary Location: [facility] Info Exam Type: ECHO COMPLETE Indications I10 - Essential hypertension Procedure(s) * A complete 2D, color Doppler, spectral Doppler, and M-Mode transthoracic echocardiogram was performed. Staff Referring Physician: Bharathi Higuera Ordering Provider: Bharathi Higuera Director Of Event Marketing: Bessy Shelton Left Ventricle The left ventricle [...] Accel Time 121.11 ms PV Regurgitation Doppler OR End Diastolic Velocity 1.4 m/s OR End Diastolic Gradient 8 mmHg OR Vena Contracta 0.83 mm Mitral Valve Name [...] Artery Doppler PA End Diastolic Pressure for OR 16 mmHg Aorta Name Value Normal Ascending [...] and AR, at least moderate TR, trace OR, no valve stenosis, mild effects of HTN, [...] 10:53 AM Patient Status: O Study Site[facility] Exam Type: ECHO COMPLETE Indications I10 - Essential hypertension Procedure(s) * A complete 2D, color Doppler, spectral Doppler, and M-Modetransthoracic echocardiogram was performed. Staff Referring Physician: Bharathi Higuera Ordering Provider: Bharathi Higuera Director Of Event Marketing: Bessy Shelton Left Ventricle The left ventricle [...] Accel Time 121.11 ms PV Regurgitation Doppler OR End Diastolic Velocity 1.4 m/s OR End Diastolic Gradient 8 mmHg OR Vena Contracta 0.83 mm Mitral Valve Name [...] Artery Doppler PA End Diastolic Pressure for OR 16 mmHg Aorta Name Value Normal Ascending [...] AM Bharathi Higuera MD ECHO CUPID * OR PM DEVICE INTERROGATE REMOTE, OR PM/ICD REMOTE TECH SERV (02/24/2024 11:07 PM [...] - 4.940 uIU/mL 02/19/2024 2:46 PM CDT [facility] Blood BLOOD SPECIMEN / Unknown Lab Venipuncture / Unknown 02/19/2024 1:39 PM CDT 02/19/2024 1:48 PM CDT Kristen Graf APPLICATION COORDINATOR-[facility] LAB - CHEMISTRY ORDERABLES [facility] [address] [place] [phone], [facility] [phone] * (ABNORMAL) COMPREHENSIVE METABOLIC PANEL (02/19/2024 1:39 PM CDT) Only the most recent of12 resultswithin the time period is included. BUN 22 7 - 26 mg/dL 02/19/2024 2:22 PM CDT [facility] Creatinine 0.98(H) 0.56 - 0.96 mg/dL 02/19/2024 2:22 PM CDT [facility] Sodium 139 136 - 145 mmol/L 02/19/2024 2:22 PM CDT [facility] Potassium 4.6(H) 3.5 - 4.5 mmol/L 02/19/2024 2:22 PM [facility] Chloride 106 98 - 107 mmol/L 02/19/2024 2:22 PM [facility] CO2 28 22 - 29 mmol/L 02/19/2024 2:22 PM [facility] Glucose 119(H) 70 - 115 mg/dL 02/19/2024 2:22 PM [facility] Calcium 9.4 8.4 - 10.2 mg/dL 02/19/2024 2:22 PM [facility] Protein Total 6.2 6.0 - 8.3 g/dL 02/19/2024 2:22 PM [facility] Albumin 3.6 3.4 - 5.0 g/dL 02/19/2024 2:22 PM [facility] Bilirubin Total 0.4 0.2 - 1.2 mg/dL 02/19/2024 2:22 PM [facility] Alkaline Phosphatase 94 40 - 150 U/L 02/19/2024 2:22 PM [facility] ALT 10 5 - 55 U/L 02/19/2024 2:22 PM [facility] AST 16 5 - 34 U/L 02/19/2024 2:22 PM [facility] Anion Gap 5(L) 6 - 16 02/19/2024 2:22 PM [facility] BUN/Creatinine Ratio 22 7 - 23 02/19/2024 2:22 PM [facility] Osmolality Calculated 292 275 - 295 mOsm/kg 02/19/2024 2:22 PM [facility] Albumin/Globulin Ratio 1.4 1.1 - 2.3 02/19/2024 2:22 PM [facility] eGFR by CKD-EPI 57(L) >=90 mL/min/1.7 3 m2 02/19/2024 2:22 PM [facility] Blood BLOOD SPECIMEN / Unknown Lab Venipuncture / Unknown 02/19/2024 1:39 PM CDT 02/19/2024 1:48 PM T Kristen Graf APPLICATION COORDINATOR-MERCURY WASHER LAB - CHEMISTRY ORDERABLES [facility] [address] [place] [address], [place] [phone] * VITAMIN B12 (02/19/2024 1:39 PM CDT) Only the most recent of6 resultswithin the time period is included. Vitamin B12 405 213 - 816 pg/mL 02/19/2024 2:46 PM CDT [facility] Blood BLOOD SPECIMEN / Unknown Lab Venipuncture / Unknown 02/19/2024 1:39 PM CDT 02/19/2024 1:48 PM CDT Kristen Graf APPLICATION COORDINATOR-MERCURY WASHER LAB - CHEMISTRY ORDERABLES Performing Organization Address [facility] Co de Phone Number [facility] [address] [place] [id number], [place] [phone] * CT CHEST WO CONTRAST (01/11/2024 10:10 [...] DATE/TIME OF EXAM: 01/11/2024 10:10 AM, LOCATION [facility] INDICATION: R93.89: Abnormal CT of [...] CONTRAST, DATE/TIME OF EXAM: 01/11/2024 10:10AM, LOCATION [facility] INDICATION: R93.89: Abnormal CT of [...] Hogue MD - 12/07/2023 6:06 PM CDT [facility] DEPARTMENT [...] Nickerson MD Pulmonary and Critical Care Fellow [facility] Pager Number [phone] I have personally reviewed the fellow's interpretation of the test and made any necessary changes when needed. Marco Hogue MD Night Warehouse Managerbus person dishwasher Division of Pulmonary, Critical Care and Sleep Medicine [facility] [employer] [facility] Pager: [phone] Narrative Marco Hogue MD - 12/07/2023 6:06 PM CDT Tonya Nickerson MD 12/08/2023 3:52 PM Procedure Note Tonya Nickerson MD - 12/07/2023 6:06 PM CDT Images from the original note were not included. Jack Milian MD RESPIRATORY THERAPY ORDERABLES * PFT Oxygen Desaturation Study [facility] (12/07/2023 6:00 PM CDT) Impressions Marco Hogue MD - 12/07/2023 6:00 PM CDT [facility] OF PULMONARY, CRITICAL CARE, [...] Nickerson MD Pulmonary and Critical Care Fellow [facility] Pager Number [phone] I have personally reviewed the fellow's interpretation of the test and made any necessary changes when needed. Marco Hogue MD Night Warehouse Managerbus person dishwasher Division of Pulmonary, Critical Care and Sleep Medicine [facility] Pager: [phone] Narrative Marco Hogue MD - 12/07/2023 6:00 PM CDT Tonya Nickerson MD 12/08/2023 3:52 PM Procedure Note Tonya Nickerson MD - 12/07/2023 6:00 PM CDT Images from the original note were not included. Jack Milian MD PFT ORDERABLES * Six Minute Walk Test [facility] (12/07/2023 5:47 PM CDT) Impressions Marco Hogue MD - 12/07/2023 5:47 PM CDT [facility] DEPARTMENT [...] Nickerson MD Pulmonary and Critical Care Fellow [facility] Pager Number [phone] I have personally reviewed the fellow's interpretation of the test and made any necessary changes when needed. Marco Hogue MD Night Warehouse Managerbus person dishwasher Division of Pulmonary, Critical Care and Sleep Medicine [facility] Pager: [phone] Narrative Marco Hogue MD - 12/07/2023 5:47 PM CDT Tonya Nickerson MD 12/08/2023 3:52 PM Procedure Note Tonya Nickerson MD - 12/07/2023 5:47 PM CDT Images from the original note were not included. Jack Milian MD RESPIRATORY THERAPY ORDERABLES * OR DRAIN/INJECT LARGE JOINT/BURSA, OR DRAIN/INJECT LARGE JOINT/BURSA (07/20/2023 5:03 PM DIRECTOR OF VALUATION) Narrative Enrico Woodward III, MD - 07/20/2023 5:03 PM DIRECTOR OF VALUATION Enrico Woodward III, MD 07/20/2023 5:04 PM [...] * (ABNORMAL) LIPID PROFILE (06/12/2023 11:35 AM DIRECTOR OF VALUATION) Cholesterol Total 205(H) <200 mg/dL 06/12/2023 12:39 PM [facility] HDL 72 >40 mg/dL 06/12/2023 12:39 PM [facility] Comment: ATP III Classification of HDL Cholesterol: <40 mg/dL: Considered a major risk factor. >60 mg/dL: Considered a negative risk factor. LDL Calculated 122(H) <100 mg/dL 06/12/2023 12:39 PM [facility] Comment: ATP III Classification of LDL Cholesterol: <100 mg/dL: Optimal 100 - 129 mg/dL: Near Optimal/Above Optimal 130 - 159 mg/dL: Borderline High 160 - 189 mg/dL: High >190 mg/dL: Very High Triglycerides 57 <150 mg/dL 06/12/2023 12:39 PM [facility] Comment: ATP III Classification of Triglycerides: <150 mg/dL: Normal 150 - 199 mg/dL: Borderline High 200 - 400 mg/dL: High >500 mg/dL: Very High Blood BLOOD SPECIMEN / Unknown Lab Venipuncture / Unknown 06/12/2023 11:35 AM DIRECTOR OF VALUATION 06/12/2023 11:52 AM DIRECTOR OF VALUATION Kristen Graf APPLICATION COORDINATOR-MERCURY WASHER LAB - CHEMISTRY ORDERABLES [facility] [address] [place] [phone], [facility] [phone] * US ABDOMEN COMPLETE (06/12/2023 10:24 AM DIRECTOR OF VALUATION) Anatomical Region Laterality Modality Abdomen Ultrasound 06/12/2023 10:1 8 AM DIRECTOR OF VALUATION Impressions 06/12/2023 1:00 PM DIRECTOR OF VALUATION IMPRESSION: 4 mm nonobstructing calculus in the left kidney. No hydronephrosis. Otherwise unremarkable exam. > Dictated by Enrique Hines MD (compensation vice president). > Dictated by Enrique Hines (Sports Official) 06/12/2023 10:18 AM IBia MD have personally reviewed and interpreted this examination/study. > Interpreting Provider: Bia Thompson MD on 06/12/2023 1:00 PM Narrative 06/12/2023 1:00 PM DIRECTOR OF VALUATION PROCEDURE: US ABDOMEN COMPLETE, DATE/TIME OF EXAM: 06/12/2023 10:24 AM, LOCATION [facility] INDICATION: R10.31: Abdominal pain, RLQ [...] DATE/TIME OF EXAM: 06/12/2023 10:24 AM, LOCATION [facility] INDICATION: R10.31: Abdominal pain, RLQ [...] exam. > Dictated by Enrique Hines MD (compensation vice president). > Dictated by Enrique Hines (Sports Official) 06/12/2023 10:18 AM IBia MD have personally reviewed and interpreted this examination/study. > Interpreting Provider: Bia Thompson MD on 06/12/2023 1:00 PM Kristen Graf APRN-[facility] ORDERABLES * OR PM DEVICE EVAL IN PERSON (03/23/2023 2:07 PM DIRECTOR OF VALUATION) Narrative Bharathi Higuera MD - 03/23/2023 2:07 PM DIRECTOR OF VALUATION Bharathi Higuera MD 03/23/2023 2:07 PM I personally interrogated her pacemaker The device is a [employer]tr[employer] brand Dual Chamber Pacemaker. Model: Cundiyo XT SN: [id number] Implanted on : 08/16/2021 Battery life: 9.6 yrs Leads: Atrial lead: P waves: 1.4 Capture threshold (mA): 1.25 @ 0.4 Impedance: 399 ohms Programmed 1.25 @ 0.4 ms, sensitivity 0.3 mV RV lead R waves: 19.0 mV Capture threshold (mA): 1.50 @ 0.4 Impedance: 437 ohms Programmed 2.5 @ 0.4 ms, sensitivity 1.2 mV Episodes: AF burden 0% Pacing [place]: RA: 99.8% RV/LV: 0.1% Programming: Mode: DDD 70 AAIR<=>DDDR Lower rate: 60 bpm Upper rate: 130 bpm AV delay: Sensed/Paced = 130/180 Bharathi Higuera MD PROCEDURE/MINOR SURG ICAL ORDERABLES * OR DRAIN/INJECT LARGE JOINT/BURSA, OR DRAIN/INJECT LARGE JOINT/BURSA (11/08/2022 11:52 AM CDT) [...] III, MD DIAGNOSTIC IM AGING ORDERABLES * OR PM DEVICE EVAL IN PERSON (09/23/2022 3:08 PM CDT) Narrative Bharathi Higuera MD - 09/23/2022 3:08 PM CDT Bharathi Higuera MD 09/23/2022 3:08 PM The device is a [employer] brand Dual Chamber Pacemaker. Model: Rosette XT SN: [id number] Implanted on : 08/16/2021 Battery life: 10.4 yrs Leads: Atrial lead: P waves: 1.5 Capture threshold (mA): 1.125 @ 0.4 Impedance: 361 ohms Programmed 2.25 @ 0.4 ms, sensitivity 0.3 mV RV lead R waves: 16.1 mV Capture threshold (mA): 1.25 @ 0.4 Impedance: 437 ohms Programmed 2.5 @ 0.4 ms, sensitivity 1.2 mV Episodes: AF burdfen 0% Pacing [place]: RA: 99.4% RV/LV: 0.1% Programming: Mode: DDD 70 AAIR<=>DDDR Lower rate: 60 bpm Upper rate: 130 bpm AV delay: Sensed/Paced = 130/180 3.Essential Hypertension # BP ok today # cont Coreg to 25mg PO BID # Now off Hydralazine # cont losartan 50mg 4.Leg swelling # improved off hydralazine Bharathi Higuera MD PROCEDURE/MINOR SURG ICAL ORDERABLES * OR DESTRUCT BENIGN LESION, 1-14 (08/11/2022 1:45 PM CDT) Narrative Matheus Cope MD - 08/11/2022 1:45 PM CDT Dominic Hines MD 08/11/2022 1:45 PM Diagnosis and treatment options discussed. Liquid nitrogen was applied to 3 lesions (see office visit note for locations) for 6-10 seconds each for 1 cycle. Wound care reviewed. Matheus Cope MD PROCEDURE/MINOR SURG ICAL ORDERABLES * OR PM DEVICE EVAL IN PERSON (06/23/2022 4:45 PM DIRECTOR OF VALUATION) Narrative Bharathi Higuera MD - 06/23/2022 4:45 PM DIRECTOR OF VALUATION Bharathi Higuera MD 06/23/2022 4:45 PM I personally interrogated the PPM. The device is a Medtronic brand Dual Chamber Pacemaker. Model: Rosette XT SN: [id number] Implanted on : 08/16/2021 Battery life: 10.8 yrs Leads: Atrial lead: P waves: Paced@ 30 Capture threshold (mA): 1.125 @ 0.4 Impedance: 380 ohms Programmed 2.25 @ 0.4 ms, sensitivity 0.3 mV RV lead R waves: 15.9 mV Capture threshold (mA): 1.375 @ 0.4 Impedance: 456 ohms Programmed 2.75 @ 0.4 ms, sensitivity 1.2 mV Episodes: AF burdfen < 0.1% Pacing [place]: RA: 99.6% RV/LV: 0.1% Programming: Mode: DDD 70 AAIR<=>DDDR Lower rate: 60 bpm Upper rate: 130 bpm AV delay: Sensed/Paced = 150/180 Bharathi Higuera MD PROCEDURE/MINOR SURG ICAL ORDERABLES * CT ABDOMEN PELVIS W CONTRAST (06/17/2022 2:21 PM DIRECTOR OF VALUATION) Anatomical Region Laterality Modality Abdomen, Pelvis Computed Tomogra phy 06/17/2022 2:40 PM DIRECTOR OF VALUATION Impressions 06/17/2022 5:19 PM DIRECTOR OF VALUATION Impression: 1.No acute process identified in the abdomen or pelvis. 2.Partially imaged pulmonary nodules as described above measuring up to 5 mm. Follow-up chest CT may be obtained in one year. > Dictated by Shanti Laureano DO (compensation vice president). I, Tatiana Culver MD have personally reviewed and interpreted this examination/study. > Interpreting Provider: Tatiana Culver MD on 06/17/2022 5:19 PM Narrative 06/17/2022 5:19 PM DIRECTOR OF VALUATION PROCEDURE: CT ABDOMEN PELVIS W CONTRAST, DATE/TIME OF EXAM: 06/17/2022 2:22 PM, LOCATION [facility] INDICATION: R10.31: Abdominal pain, RLQ [...] CONTRAST, DATE/TIME OF EXAM: :22 PM, LOCATION [facility] INDICATION: R10.31: Abdominal pain, RLQ [...] year. > Dictated by Shanti Laureano DO (compensation vice president). I, Tatiana Culver MD have personally reviewed and interpreted this examination/study. > Interpreting Provider: Tatiana Culver MD on 06/17/2022 5:19 PM Kristen Graf APPLICATION COORDINATOR-[facility] CT ORDERABLES * BONE DENSITY AXIAL SKELETON(1OR MORE SITES)[id number] (06/17/2022 1:22 PM DIRECTOR OF VALUATION) Anatomical Region Laterality Modality Other 06/20/2022 5:28 PM DIRECTOR OF VALUATION Narrative 06/20/2022 5:29 PM DIRECTOR OF VALUATION PROCEDURE: DEXA BONE DENSITY AXIAL SKELETON, DATE/TIME OF EXAM: 06/17/2022 1:23 PM, LOCATION [facility] INDICATION: M15.9: Primary osteoarthritis involving [...] SKELETON, DATE/TIME OF EXAM:06/17/2022 1:23 PM, LOCATION [facility] INDICATION: M15.9: Primary osteoarthritis involving [...] DO on 06/20/2022 5:29 PM Kristen Graf APPLICATION COORDINATOR-[facility] DEXA ORDERABLES * OR PM DEVICE EVAL IN PERSON (03/24/2022 5:14 PM DIRECTOR OF VALUATION) Narrative Bharathi Higuera MD - 03/24/2022 5:14 PM DIRECTOR OF VALUATION Bharathi Higuera MD 03/24/2022 5:14 PM I personally interrogated the PPM / ICD. The device is a Medtronic brand Dual Chamber Pacemaker. Model: Rosette XT SN: [id number] Implanted on : 08/16/2021 Battery life: 10.6 Leads: Atrial lead: P waves: Paced@ 30 Capture threshold (mA): 1.25 @ 0.4 Impedance: 361 ohms Programmed 1.25 @ 0.4 ms, sensitivity 0.3 mV RV lead R waves: 19.8 mV Capture threshold (mA): 1.75 @ 0.4 Impedance: 456 ohms Programmed 3.25 @ 0.4 ms, sensitivity 1.2 mV Episodes: AF burdfen < 0.1% Pacing [place]: RA: 99.3% RV/LV: 0.1% Programming: Mode: DDD 70 AAIR<=>DDDR Lower rate: 60 bpm Upper rate: 130 bpm AV delay: Sensed/Paced = 150/180 Bharathi Higuera MD PROCEDURE/MINOR SURG ICAL ORDERABLES * OR DESTRUCT BENIGN LESION, 1-14 (03/15/2022 1:18 PM CDT) Narrative Lilliana Thomas MD - 03/15/2022 1:18 PM CDT Dominic Hines MD 03/15/2022 1:18 PM Diagnosis and treatment options discussed. Cryotherapy (Liquid Nitrogen) to iSK on L cheek x 6-10 seconds each. Number of cycles: 1. Wound care reviewed. Lilliana Thomas MD PROCEDURE/MINOR OMALLEY RGICAL ORDERABLES * OR DRAIN/INJECT LARGE JOINT/BURSA, OR DRAIN/INJECT LARGE JOINT/BURSA (02/15/2022 9:00 AM CDT) [...] DATE/TIME OF EXAM: 02/14/2022 3:22 PM, LOCATION [facility] INDICATION: M79.671: Right foot pain [...] MORE, DATE/TIME OF EXAM: 23:22 PM, LOCATION [facility] INDICATION: M79.671: Right foot pain [...] III, MD DIAGNOSTIC IM AGING ORDERABLES * OR US SOFT TISS HEAD&NCK R-T IMG (02/04/2022 [...] of knee Referring Physician: Dr. Kristen Graf, APPLICATION COORDINATOR-[facility] Procedure Preformed: Ultrasound Only COMPARED TO: 07/23/2020, [...] Banuelos MD PROCEDURE/MINOR KASH GICAL ORDERABLES * OR BIOPSY, NAIL UNIT (01/25/2022 3:20 PM CDT) [...] - POINT OF CAR E ORDERABLES * OR DESTRUCT BENIGN LESION, 1-14 (01/25/2022 12:06 PM [...] Comment: CULTURE,FUNGUS,SKIN,HAIR, NAIL W/DIRECT FLUOR/[facility] Micro Number: [id number] Test Status: Final Specimen Source: Right great toenail Specimen Quality: Adequate Smear: Few Fungal elements seen Result: No fungal growth at 4 Weeks Test Performed at: [facility] [id number] AMA KRISHNA MD 01/25/2022 12:0 4 PM CDT 01/26/2022 2:47 AM CDT Lilliana Thomas MD LAB - MICROBIOLOGY ORDERABLES [facility] [address] [place] [id number] * DERMATOPATHOLOGY (01/25/2022 12:00 AM CDT) Case Report Dermatopathology Report Case: [id number] Authorizing Provider: Lilliana Thomas MD Collected: 01/25/2022 [...] specimen consists of a nail clipping measuring [id number]. 1:44 PM CDT DERMATOPATHOLOGY LABORATORY Microscopic Description [...] characteristic determined by the Dermatopathology Laboratory at [facility], directed by Dr. Jose R Alcazar. These tests need not be, and therefore are not, approved by the [place] Food and Drug Administration. The tests are used for clinical purposes. Billing Codes Specimen Charges Stain Charges 50428 1 64493 1 2 1:44 PM CDT DERMATOPATHOLOGY LABORATORY Embedded Images 2 1:44 PM CDT DERMATOPATHOLOGY LABORATORY Pathology/Cytolog y TISSUE SPECIMEN FROM SKIN / Unknown 01/25/2022 01/25/2022 3:16 PM CDT Lilliana Thomas MD LAB - PATHOLOGY/CY TOLOGY ORDERABLES DERMATOPATHOLOGY LABORATORY [facility] Department of Dermatology [address] [phone] * OR DRAIN/INJECT LARGE JOINT/BURSA, OR DRAIN/INJECT LARGE JOINT/BURSA (10/22/2021 4:44 PM CDT) [...] reviewed by pathologist. 10/25/2021 8:53 AM CDT [facility] Comment:This is a corrected result. Previous result was No crystals seen. To be reviewed by pathologist. on 10/22/2021 at 1313 CDT Fluid SYNOVIAL FLUID / Unknown Collection / Unknown 10/22/2021 12:03 PM CDT 10/22/2021 12:09 PM CDT Enrico Woodward III, MD LAB - BODY FL UID ORDERABLES Performing Organization Address City/[facility]/ZIP Co de Phone Number [facility] [address] [place] [address], [place] [phone] * PATHOLOGY SMEAR BODY FLUID (10/22/2021 12:03 PM CDT) Pathologist [facility] Pathology Diff Review 10/25/2021 10:59 AM CDT [facility] Comment: Final diagnosis: Synovial fluid, smear: [...] 11:00 AM on 10-25-21. Diane Crain MD Licensed Certified Orthotist Clinical Core Laboratory [facility] Fluid SYNOVIAL FLUID / Unknown Collection / Unknown 10/22/2021 12:03 PM CDT 10/22/2021 12:09 PM CDT Enrico Woodward III, MD LAB - PATHOLO GY/CYTOLOGY ORDERABLES Performing Organization Address City/[facility]/ZIP Co de Phone Number [facility] [address] [place] [address], [place] [phone] * DIFFERENTIAL MANUAL FLUID (10/22/2021 12:03 PM CDT) Segs % Fluid 8 % 10/22/2021 1:04 PM CDT [facility] Lymphocytes % Fluid 15 % 10/22/2021 1:04 PM CDT [facility] Monocytes % Fluid 40 % 10/22/2021 1:04 PM CDT [facility] Macrophages % Fluid 36 % 10/22/2021 1:04 PM CDT [facility] Synovial Lining Cells % 1 % 10/22/2021 1:04 PM CDT [facility] Fluid SYNOVIAL FLUID / Unknown Collection / Unknown 10/22/2021 12:03 PM CDT 10/22/2021 12:09 PM CDT Enrico Woodward III, MD LAB - BODY FL UID ORDERABLES [facility] [address] [place] [address], [facility] [phone] * CULTURE FLUID+GRAM STAIN (10/22/2021 12:03 PM CDT) Culture No growth RICHIE 10/26/2021 12:23 AM CDT [facility] MICROBIOLOGY Gram Stain No polymorphonuclear cells 10/26/2021 12:23 AM CDT [facility] MICROBI[facility] Gram Stain No organisms seen 022 12:23 AM CDT [facility]CRO[facility] Fluid SYNOVIAL FLUID / Unknown Collection / Unknown 10/22/2021 12:03 PM CDT 10/22/2021 12:09 PM CDT Enrico Woodward III, MD LAB - MICROBI OLOGY ORDERABLES Performing Organization Address City/[facility]/ZIP Co de Phone Number [facility] MICROBIOLOGY [address] [place] [address], [facility] [phone] * (ABNORMAL) CELL COUNT W DIFF W CRYSTALS SYNOVIAL (10/22/2021 12:03 PM CDT) Color Fluid Yellow(A) Colorles s, Straw 10/22/2021 12:41 PM CDT [facility] Clarity Fluid Hazy(A) Clear 10/22/2021 12:41 PM CDT [facility] Volume Fluid 2.0 mL 10/22/2021 12:41 PM CDT [facility] Viscosity Normal 10/22/2021 12:41 PM CDT [facility] WBC Fluid 124 0 - 200 x10e6/L 10/22/2021 12:41 PM CDT [facility] RBC Fluid <3,000(H) 0 x10e6/L 10/22/2021 12:41 PM CDT [facility] Crystal Exam Fluid Crystal examination to follow. 10/22/2021 12:41 PM CDT [facility] Differential Manual Differential to follow. 10/22/2021 12:41 PM CDT [facility] Fluid SYNOVIAL FLUID / Unknown Collection / Unknown 10/22/2021 12:03 PM CDT 10/22/2021 12:09 PM CDT Narrative [facility] - 10/22/2021 12:41 PM CDT No reference ranges established for body fluid cell counts. The reference ranges provided are derived from published literature. The test results must be integrated into the clinical context for interpretation. Enrico Woodward III, MD LAB - BODY FL UID ORDERABLES [facility] [address] [place] [address], [facility] [phone] * XR PELVIS W RIGHT HIP 2VW [...] is available for comparison. Procedure Note Chase Canaels MD - 10/22/2021 EXAMINATION: XR PELVIS W [...] effusion. This report was electronically signed by HCASE CANALES MD, FRCR on 10/22/2021 11:14 AM . Enrico Woodward III, MD DIAGNOSTIC IM AGING ORDERABLES * XR KNEE LEFT 4VW OR MORE (10/22/2021 10:57 AM CDT) Anatomical Region Laterality Modality Lower Extremity Radiographic [place] ging 10/22/2021 11:1 2 AM CDT Impressions [...] ICD PG (08/16/2021 10:40 AM CDT) Narrative [facility] - 08/16/2021 10:51 AM CDT This procedure was performed by a Cardiac Drawing Instructor in the EP lab. Please see the Op Note or Procedures Note placed by Electrophysiology. Bharathi Higuera MD ELECTROPHYS RADIANT [facility] * OR DESTRUCT BENIGN LESION, 1-14 (08/05/2021 2:13 PM CDT) Narrative Josy Helton MD - 08/05/2021 2:13 PM CDT Dominic Hines MD 08/05/2021 2:13 PM Diagnosis and treatment options discussed. Cryotherapy (Liquid Nitrogen) to iSK x 2 on face x 6-10 seconds each. Number of cycles: 1. Wound care reviewed. Josy Helton MD PROCEDURE/SHANNON R SURGICAL ORDERABLES * (ABNORMAL) PT-INR [facility] (08/02/2021 8:39 AM CDT) Only the most recent of3 resultswithin the time period is included. PT 17.6(H) 12.1 - 14.8 Seconds 08/02/2021 9:24 AM CDT [facility] INR 1.5 See Comment 08/02/2021 9:24 AM CDT [facility] Comment:The suggested therap eutic [...] - COAGULATION OR DERABLES [facility] [address] [place] [address], [facility] [phone] * HEAVY METALS URINE RANDOM PANEL (07/29/2021 11:43 AM CDT) Arsenic ug/g Creat Urine 33 mcg/g cr [facility] Comment: Reference Range: Nonexposed Adult: < or = 35 mcg/g creatinine Biological Exposure Index (end of shift/work week): < or = 50 mcg/g creatinine This test was developed and its analytical performance characteristics have been determined by [employer] [place]. It has not been cleared or [...] analytical performance characteristics have been determined by [employer] [place] It has not been cleared or [...] analytical performance characteristics have been determined by [facility] [employer] [place], [place]. It has not been cleared or approved by the U.S. Food and Drug Administration. This assay has been validated pursuant to the CLIA regulations and is used for clinical purposes. Creatinine Urine 93 20 - 275 mg/dL [facility] Comment: Test Performed at: [facility] [address] [place] [id number] NGUYEN RANDOLPH MD,PHD Urine URINE SPECIMEN OBTAINED BY CLEAN CATCH PROCEDURE / Unknown 07/29/2021 11:43 AM CDT 07/29/2021 11:44 AM CDT Gaurang Harman MD LAB - URINE CHEMISTR Y ORDERABLES [facility] [address] [place] [address] * CARDIAC EKG ORDER (07/07/2021 8:54 AM DIRECTOR OF VALUATION) Only the most recent of10 resultswithin the time period is included. Narrative 07/07/2021 8:54 AM DIRECTOR OF VALUATION Ordered by an unspecified provider. Scanned Document CARDIAC SERVICES ORD ERABLES * CT HEAD WO CONTRAST (07/04/2021 12:20 PM DIRECTOR OF VALUATION) Only the most recent of2 resultswithin the time period is included. Anatomical Region Laterality Modality Head Computed Tomogra phy 07/04/2021 12:5 9 PM DIRECTOR OF VALUATION Impressions 07/05/2021 7:45 AM DIRECTOR OF VALUATION IMPRESSION: No acute intracranial abnormality. Dictated by Feliberto Abreu D.O. (Sports Official) I, Dr. KATIA SCHERER have personally reviewed and interpreted this examination/study. This report was electronically signed by KATIA SCHERER on 07/05/2021 7:45 AM . Narrative 07/05/2021 7:[address] HEAD WO CONTRAST EXAMINATION: Computed tomography [...] intracranial abnormality. Dictated by Feliberto Abreu D.O. (Sports Official) I, Dr. KATIA SCHERER have personally reviewed and interpreted this examination/study. This report was electronically signed by KATIA SCHERER on 07/05/2021 7:45AM . Dimas Ward Fipatrice DO CT ORDERABLES * EKG 12-LEAD (07/04/2021 7:53 AM DIRECTOR OF VALUATION) Only the most recent of5 resultswithin the time period is included. Ventricular Rate 100 BPM [facility] Atrial Rate 100 BPM [facility] P-R Interval 216 ms [facility] QRS Duration ms 112 ms [facility] Q-T Interval ms 352 ms [facility] QTC Calculation (Bezet) 454 ms [facility] Calculated P [place] 88 degrees [facility] Calculated R [place] -84 degrees [facility] Calculated T [place] 71 degrees [facility] Interpretation EKG ATRIAL FLUTTER WITH 2:1 A-V CONDUCTION LEFT AXIS DEVIATION MINIMAL VOLTAGE CRITERIA FOR LVH, MAY BE NORMAL VARIANT ( Danial product ) ABNORMAL ECG WHEN COMPARED WITH ECG OF 03-JUL-2021 15:10, (RBBB AND LEFT ANTERIOR FASCICULAR BLOCK) IS NO LONGER PRESENT Confirmed by Bharathi Higuera ([id number]) on 07/06/2021 1:00:56 PM [facility] 07/04/2021 7:53 AM DIRECTOR OF VALUATION 07/06/2021 1:00 PM DIRECTOR OF VALUATION Hilton Connolly MD ECG ORDERABLES Performing Organization Address City/[facility]/ZIP Co de Phone Number [facility] * (ABNORMAL) TROPONIN I (07/04/2021 7:10 AM DIRECTOR OF VALUATION) Only the most recent of5 resultswithin the time period is included. Troponin I 0.100(H) <0.032 ng/mL 07/04/2021 7:44 AM DIRECTOR OF VALUATION [facility] Blood BLOOD SPECIMEN / Unknown Venipuncture / Unknown 07/04/2021 7:10 AM DIRECTOR OF VALUATION 07/04/2021 7:16 AM DIRECTOR OF VALUATION iDmas Keating DO LAB - CHEMISTRY OR DERABLES Performing Organization Address [facility] Co de Phone Number [address] [address], [place] [phone] * PHOSPHORUS BLOOD (07/04/2021 3:56 AM DIRECTOR OF VALUATION) Phosphorus 3.7 2.9 - 5.1 mg/dL 07/04/2021 4:32 AM DIRECTOR OF VALUATION [facility] Blood BLOOD SPECIMEN / Unknown Venipuncture / Unknown 07/04/2021 3:56 AM DIRECTOR OF VALUATION 07/04/2021 4:08 AM DIRECTOR OF VALUATION Rex Leonard MD LAB - CHEMISTRY ORD ERABLES Performing Organization Address [facility] Co de Phone Number [address] [address], [place] [phone] * MAGNESIUM BLOOD (07/04/2021 3:56 AM DIRECTOR OF VALUATION) Only the most recent of2 resultswithin the time period is included. Magnesium 1.9 1.6 - 2.6 mg/dL 07/04/2021 4:32 AM DIRECTOR OF VALUATION [facility] Blood BLOOD SPECIMEN / Unknown Venipuncture / Unknown 07/04/2021 3:56 AM DIRECTOR OF VALUATION 07/04/2021 4:08 AM DIRECTOR OF VALUATION Rex Leonard MD LAB - CHEMISTRY ORD ERABLES [facility] [address] [place] [address], [facility] [phone] * 24 HOUR BLOOD PRESSURE MONITORING (04/16/2021) Ciara Huitron MD CARDIAC SERVICES O RDERABLES * US KIDNEY WITH DOPPLER COMPLETE (04/14/2021 8:54 AM DIRECTOR OF VALUATION) Anatomical Region Laterality Modality Abdomen Ultrasound 04/14/2021 8:49 AM DIRECTOR OF VALUATION Impressions 04/14/2021 9:31 AM DIRECTOR OF VALUATION IMPRESSION: 1. Slightly small right kidney. No evidence of nephrolithiasis, hydronephrosis, or solid renal mass. 2. Patent renal vasculature without secondary signs of renal artery stenosis. Dictated by Vero Saenz MD (manager residential). I, Dr. ANNA COCHRAN M.D. have personally reviewed and interpreted this examination/study. This report was electronically signed by ANNA COCHRAN M.D. on 04/14/2021 9:31 AM . Narrative 04/14/2021 9:31 AM DIRECTOR OF VALUATION EXAMINATION: 1. Complete retroperitoneal sonogram 2. Color [...] artery stenosis. Dictated by Vero Saenz MD (manager residential). I, Dr. ANNA COCHRAN M.D. have personally reviewed and interpreted this examination/study. This report was electronically signed by ANNA COCHRAN M.D. on 04/14/2021 9:31 AM . Ciara Huitron MD ORDERABLES * (ABNORMAL) URINALYSIS W/MICROSCOPIC REFLEX TO CULTURE (04/14/2021 8:54 AM [facility]) Color UA Straw Straw, Yellow 04/14/2021 9:47 AM [facility] Clarity UA Clear Clear 04/14/2021 9:47 AM [facility] Specific [place] UA 1.010 1.005 - 1.030 04/14/2021 9:47 AM [facility] pH UA 7.0 5.0 - 8.0 pH 04/14/2021 9:47 AM [facility] Protein UA Negative Negative 04/14/2021 9:47 AM [facility] Glucose UA Negative Negative 04/14/2021 9:47 AM [facility] Ketone UA Negative Negative 04/14/2021 9:47 AM [facility] Bilirubin UA Negative Negative 04/14/2021 9:47 AM [facility] Blood UA 2+(A) Negative 04/14/2021 9:47 AM [facility] Nitrite UA Negative Negative 04/14/2021 9:47 AM [facility] Leukocyte Esterase 1+(A) Negative 04/14/2021 9:47 AM [facility] Urobilinogen UA Negative Negative mg/dL 04/14/2021 9:47 AM [facility] RBC UA 21-50(A) None Seen, 0-2, 3-5 /HPF 04/14/2021 9:47 AM [facility] WBC UA 0-5 None Seen, 0-5 /HPF 04/14/2021 9:47 AM [facility] Squamous Epithelial Cells UA 0-2 None Seen, 0-2, 3-5 /HPF 04/14/2021 9:47 AM [facility] Urine URINE SPECIMEN OBTAINED BY CLEAN CATCH PROCEDURE / Unknown Collection / Unknown 04/14/2021 8:54 AM DIRECTOR OF VALUATION 04/14/2021 9:31 AM DIRECTOR OF VALUATION Narrative [facility] - 04/14/2021 9:47 AM DIRECTOR OF VALUATION Lab Status, Culture Reflex Indicated. Ciara Huitron MD LAB - URINALYSIS O RDERABLES [facility] [address] [place] [address], [place] [phone] * MICROALB/CREAT RATIO URINE RANDOM PANEL (04/14/2021 8:54 AM DIRECTOR OF VALUATION) Albumin Random Urine 7.1 Not Established ug/mL 04/14/2021 10:10 AM DIRECTOR OF VALUATION [facility] Creatinine Urine 41 Not Established mg/dL 04/14/2021 10:10 AM DIRECTOR OF VALUATION [facility] Urine Albumin/Creati nine Ratio 17 <30 mg/g 04/14/2021 10:10 AM DIRECTOR OF VALUATION [facility] Urine URINE SPECIMEN OBTAINED BY CLEAN CATCH PROCEDURE / Unknown Collection / Unknown 04/14/2021 8:54 AM DIRECTOR OF VALUATION 04/14/2021 9:35 AM DIRECTOR OF VALUATION Ciara Huitron MD LAB - URINE CHEMIS TRY ORDERABLES Performing Organization Address [facility]/ZIP Co de Phone Number [address] [address], [place] [phone] * CULTURE URINE (04/14/2021 8:54 AM DIRECTOR OF VALUATION) Only the most recent of4 resultswithin the time period is included. Culture Urine <10,000 CFU/mL urogenital devendra RICHIE 04/15/2021 2:36 PM DIRECTOR OF VALUATION [facility] MICROBIOLOG[facility] Urine URINE SPECIMEN OBTAINED BY CLEAN CATCH PROCEDURE / Unknown Collection / Unknown 04/14/2021 8:54 AM DIRECTOR OF VALUATION 04/14/2021 9:42 AM DIRECTOR OF VALUATION Narrative Authorizing Provider Result Ghazal Huitron MD LAB - MICROBIOLOGY ORDERABLES Performing Organization Address City/[facility]/ZIP Co de Phone Number [facility] MICROBIOLOGY [address] [place] [address], [facility] [phone] * (ABNORMAL) RENAL FUNCTION PANEL (04/14/2021 8:54 AM [facility]) Only the most recent of2 resultswithin the time period is included. BUN 21 7 - 26 mg/dL 04/14/2021 10:04 AM [facility] Creatinine 1.00(H) 0.56 - 0.96 mg/dL 04/14/2021 10:04 AM [facility] Sodium 140 136 - 145 mmol/L 04/14/2021 10:04 AM [facility] Potassium 4.4 3.5 - 4.5 mmol/L 04/14/2021 10:04 AM [facility] Chloride 102 98 - 107 mmol/L 04/14/2021 10:04 AM [facility] CO2 27 22 - 29 mmol/L 04/14/2021 10:04 AM [facility] Glucose 87 70 - 115 mg/dL 04/14/2021 10:04 AM [facility] Albumin 3.9 3.4 - 5.0 g/dL 04/14/2021 10:04 AM [facility] Calcium 9.9 8.4 - 10.2 mg/dL 04/14/2021 10:04 AM [facility] Phosphorus 3.6 2.9 - 5.1 mg/dL 04/14/2021 10:04 AM [facility] Anion Gap 15 8 - 18 04/14/2021 10:04 AM [facility] BUN/Creatinine Ratio 21 7 - 23 04/14/2021 10:04 AM [facility] Osmolality Calculated 292 270 - 300 mOsm/kg 04/14/2021 10:04 AM [facility] eGFR by CKD-EPI 53(L) >=90 mL/min/1.7 3 m2 04/14/2021 10:04 AM [facility] Blood BLOOD SPECIMEN / Unknown Lab Venipuncture / Unknown 04/14/2021 8:54 AM DIRECTOR OF VALUATION 04/14/2021 9:34 AM [facility] Ciara Huitron MD LAB - CHEMISTRY OR DERABLES Performing Organization Address City/State/[facility] Co de Phone Number [facility] [address] [address], [facility] [phone] * PROC EKG IN CLINIC (02/11/2021 12:08 PM CDT) Only the most recent of6 resultswithin the time period is included. Narrative Bharathi Higuera MD - 02/11/2021 12:08 PM CDT Bharathi Higuera MD 02/11/2021 12:08 PM Ectopic atrial rhythm HR 60 bpm Bharathi Higuera MD ECG ORDERABLES * ACTH (02/01/2021 7:03 AM CDT) [facility] ACTH 23 6 - 50 pg/mL [facility] Comment: Reference range applies only to specimens collected between 7am-10am. Test Performed at: [facility] [facility] [place] [address] [place], [place] NGUYEN RANDOLPH MD,PHD Blood BLOOD SPECIMEN / Unknown 02/01/2021 7:03 AM CDT 02/01/2021 7:04 AM CDT Santiago Banuelos MD LAB - CHEMISTRY ORD ERABLES [id number] [place] [address] * RENIN ACTIVITY (02/01/2021 7:03 AM CDT) [facility] Plasma Renin Activity 2.37 0.25 - 5.82 ng/mL/h [facility] Comment: This test was developed and its analytical performance characteristics have been determined by [facility]. It has not been cleared or approved by FDA. This assay has been validated pursuant to the CLIA regulations and is used for clinical purposes. Test Performed at: [facility] [address] [place] [address] RAN TRIMBLE MD,PHD,MAXIMILIANO Blood BLOOD SPECIMEN / Unknown 02/01/2021 7:03 AM CDT 02/01/2021 7:04 AM CDT Santiago Banuelos MD LAB - CHEMISTRY ORD ERABLES Performing Organization Address City/State/[facility] de Phone Number [facility] [address] [place] [address] * ALDOSTERONE BLOOD (02/01/2021 7:03 AM CDT) Aldosterone 4 ng/dL [facility] Comment: Adult Reference Ranges for Aldosterone: Upright 8:00-10:00 am < or = 28 ng/dL Upright 4:00-6:00 pm < or = 21 ng/dL Supine 8:00-10:00 am 3-16 ng/dL This test was developed and its analytical performance characteristics have been determined by [facility]. It has not been cleared or approved by FDA. This assay has been validated pursuant to the CLIA regulations and is used for clinical purposes. Test Performed at: [facility] [address] [place] [address] RAN TRIMBLE MD,PHD,MAXIMILIANO Blood BLOOD SPECIMEN / Unknown 02/01/2021 7:03 AM CDT 02/01/2021 7:04 AM CDT Santiago Banuelos MD LAB - CHEMISTRY ORD ERABLES Performing Organization Address [facility] de Phone Number [address] [address] * SODIUM URINE RANDOM (02/01/2021 7:03 AM CDT) Sodium Urine 43 28 - 272 mmol/L [facility] Comment: Test Performed at: [facility] [address] [place] [address] ENRICO WYNN DO,MPH Urine URINE SPECIMEN OBTAINED BY CLEAN CATCH PROCEDURE / Unknown 02/01/2021 7:03 AM CDT 02/01/2021 7:04 AM CDT Santiago Banuelos MD LAB - URINE PRODUCTION SUPPORT MANAGER RY ORDERABLES Performing Organization Address [facility] Co de Phone Number [facility] [address] [place] [address] * CREATININE URINE RANDOM (02/01/2021 7:03 AM CDT) Creatinine Urine 55 20 - 275 mg/dL [facility] Comment: Test Performed at: [facility] [place] [address] [address] [employer] [facility] [address] ENRICO WYNN DO,MPH Urine URINE SPECIMEN OBTAINED BY CLEAN CATCH PROCEDURE / Unknown 02/01/2021 7:03 AM CDT 02/01/2021 7:04 AM CDT Santiago Banuelos MD LAB - URINE PRODUCTION SUPPORT MANAGER RY ORDERABLES Performing Organization Address [facility] [place] [address] * TSH (02/01/2021 7:03 AM CDT) Only the most recent of4 resultswithin the time period is included. Pathologist [facility] TSH 3.79 0.40 - 4.50 mIU/L [facility] Comment: Test Performed at: [facility] [address] [address] [employer] [place] [address] ENRICO WYNN DO,MPH Blood BLOOD SPECIMEN / Unknown 02/01/2021 7:03 AM CDT 02/01/2021 7:04 AM CDT Santiago Banuelos MD LAB - CHEMISTRY ORD ERABLES Performing Organization Address [facility] de Phone Number [facility] [address] [place] [phone] * CORTISOL BLOOD AM (02/01/2021 7:03 AM CDT) Pathologist [facility] Cortisol AM 19.2 mcg/dL [facility] Comment: Reference Range 8 a.m. (7-9 a.m.) Specimen: 4.0-22.0 REPORT COMMENT: FASTING:YES Test Performed at: [facility] [address] [address] [employer] [place] [address] ENRICO WYNN DO,MPH Blood BLOOD SPECIMEN / Unknown 02/01/2021 7:03 AM CDT 02/01/2021 7:04 AM CDT Santiago Banuelos MD LAB - CHEMISTRY ORD ERABLES Performing Organization Address [facility] Co de Phone Number [facility] [phone] [place] [address] * OR US SOFT TISS HEAD&NCK R-T IMG (01/29/2021 [...] Essential hypertension Referring Physician: Dr. Kristen Graf, APPLICATION COORDINATOR-MERCURY WASHER Procedure Preformed: Ultrasound Only COMPARED TO; 07/23/2020 [...] Clarity UA Clear Clear 01/02/2021 9:01 AM [facility] Specific [place] UA 1.010 1.005 - 1.030 01/02/2021 9:01 AM [facility] pH UA 6.0 5.0 - 8.0 pH 01/02/2021 9:01 AM [facility] Protein UA Negative Negative 01/02/2021 9:01 AM [facility] Glucose UA Negative Negative 01/02/2021 9:01 AM [facility] Ketone UA Negative Negative 01/02/2021 9:01 AM [facility] Bilirubin UA Negative Negative 01/02/2021 9:01 AM [facility] Blood UA 3+(A) Negative 01/02/2021 9:01 AM [facility] Nitrite UA Negative Negative 01/02/2021 9:01 AM [facility] Leukocyte Esterase Negative Negative 01/02/2021 9:01 AM [facility] Urobilinogen UA Negative Negative mg/dL 01/02/2021 9:01 AM [facility] RBC UA 21-50(A) None Seen, 0-2, 3-5 /HPF 01/02/2021 9:01 AM [facility] WBC UA 0-5 None Seen, 0-5 /HPF 01/02/2021 9:01 AM [facility] Squamous Epithelial Cells UA 0-2 None Seen, 0-2, 3-5 /HPF 01/02/2021 9:01 AM [facility] Urine URINE SPECIMEN OBTAINED BY CLEAN CATCH PROCEDURE / Unknown Collection / Unknown 01/02/2021 8:39 AM CDT 01/02/2021 8:[address] [facility] - 01/02/2021 9:01 AM T Areli Curtis MD LAB - URINALYSIS ORD ERABLES [facility] [address] [place] [address], [facility] [phone] * XR CHEST 2VW (01/02/2021 6:18 AM [...] MD on01/02/2021 7:38 PM . Ana Hillman APPLICATION COORDINATOR-MERCURY WASHER DIAGNOSTIC I MAGING ORDERABLES * HEPATIC FUNCTION PANEL (01/02/2021 6:01 AM CDT) Protein Total 6.9 6.0 - 8.3 g/dL 021 6:55 AM CDT [facility] Albumin 4.1 3.4 - 5.0 g/dL 01/02/2021 6:[address] [facility] Bilirubin Total 0.8 0.2 - 1.2 mg/dL 12/14 6:[address] [facility] Bilirubin Conjugated 0.2 0.1 - 0.5 mg/dL 01/02/2021 6:55 AM [facility] Bilirubin Unconjugated 0.6 Unconjugated Bilirubin is a calculated value: Reference ranges have not been established. mg/dL 01/02/2021 6:[address] [facility] Alkaline Phosphatase 91 40 - 150 U/L 01/02/2021 6:[address] [facility] ALT 13 5 - 55 U/L 01/02/2021 6:[address] [facility] AST 20 5 - 34 U/L 01/02/2021 6:55 AM [facility] Albumin/Globulin Ratio 1.5 1.1 - 2.3 01/02/2021 6:55 AM [facility] Blood BLOOD SPECIMEN / Unknown Venipuncture / Unknown 01/02/2021 6:01 AM CDT 01/02/2021 6:21 AM CDT Areli Curtis MD LAB - CHEMISTRY ORDZuhair DOMINGUEZ [address] [address], [facility] [phone] * FOLATE (01/02/2021 6:01 AM CDT) Only the most recent of2 resultswithin the time period is included. Folate 14.5 7.0 - 31.4 ng/mL 01/02/2021 7:20 AM T [facility] Blood BLOOD SPECIMEN / Unknown Venipuncture / Unknown 01/02/2021 6:01 AM CDT 01/02/2021 6:21 AM CDT Areli Curtis MD LAB - CHEMISTRY BEVERLY DOMINGUEZ [address] [address] [phone] * ECHO COMPLETE (11/20/2020 9:55 AM CDT) Anatomical Region Laterality Modality Chest Echo 11/20/2020 9:22 AM CDT Narrative Procedure Note Elizabeth Torrez MD - 11/20/2020 Bharathi Higuera MD ECHOCARDIOGRAPHY RAD IANT * METANEPHRINES FRACTIONATED PLASMA (11/20/2020 7:08 AM CDT) Metanephrine Fract Free <25 <=57 pg/mL [facility] Comment: This test was developed and its analytical performance characteristics have been determined by [facility] [place]. It has not been cleared or approved by the U.S. Food and Drug Administration. This assay has been validated pursuant to the CLIA regulations and is used for clinical purposes. Normetanephrine Free 72 <=148 pg/mL [facility] Comment: This test was developed and its analytical performance characteristics have been determined by [employer] [place], [place]. It has not been cleared or approved by the U.S. Food and Drug Administration. This assay has been validated pursuant to the CLIA regulations and is used for clinical purposes. Free Metanephrine + Normetanephrine 72 <=205 pg/mL [facility] Comment: For additional information, please refer to http://education.LookUP/faq/MetFractFree (This link is being provided for informational/educatio [...] analytical performance characteristics have been determined by [facility] [place], [place]. It has not been cleared or approved by the U.S. Food and Drug Administration. This assay has been validated pursuant to the CLIA regulations and is used for clinical purposes. REPORT COMMENT: FASTING:NO Test Performed at: [facility] [id number] [place] [address] NGUYEN RANDOLPH MD,PHD 11/20/2020 7:08 AM CDT 11/20/2020 7:08 AM CDT Santiago Banuelos MD LAB - CHEMISTRY ORD ERABLES [facility] [address] [place] [address] * METANEPHRINES URINE FRACTIONATED (11/20/2020 7:08 AM CDT) Metanephrine Urine 105 21 - 153 mcg/g creat [facility] Comment: This test was developed and its analytical performance characteristics have been determined by [facility] [place]. It has not been cleared or approved by FDA. This assay has been validated pursuant to the CLIA regulations and is used for clinical purposes. Normetanephrine Urine 256 108 - 524 mcg/g creat [facility] Comment: This test was developed and its analytical performance characteristics have been determined by [facility] [place]. It has not been cleared or approved by FDA. This assay has been validated pursuant to the CLIA regulations and is used for clinical purposes. Metanephrine Total Urine 361 149 - 603 mcg/g creat [facility] Comment: A four-fold elevation of urinary normetanephrines is extremely likely due to a tumor, while a four-fold elevation of urinary metanephrines is highly suggestive, but not diagnostic of the tumor. Measurement of plasma Metanephrines and Chromogranin A is recommended for confirmation. This test was developed and its analytical performance characteristics have been determined by [facility] [place]. It has not been cleared or approved by FDA. This assay has been validated pursuant to the CLIA regulations and is used for clinical purposes. Creatinine Urine 29 20 - 275 mg/dL [facility] Comment: REPORT COMMENT: FASTING:NO Test Performed at: [facility] [address] [place] [address] RAN TRIMBLE MD,PHD,MAXIMILIANO 11/20/2020 7:08 AM CDT 11/20/2020 7:08 AM CDT Santiago Banuelos MD LAB - URINE PRODUCTION SUPPORT MANAGER RY ORDERABLES [facility] [address] [place] [address] * OR CYSTOURETHROSCOPY (09/08/2020 1:22 PM CDT) Narrative Kiersten [...] POCT neg Ketones UA POCT neg Specific [place] UA 1.015 Blood Urine POCT 80Ery/uL pH UA 6.0 Protein UA neg Urobilinogen UA 0.2 mg/dL Nitrite UA neg WBC UA neg Urine URINE / Unknown 09/08/2020 Kiersten Gibson Lucho APPLICATION COORDINATOR-MERCURY WASHER LAB - POINT O F CARE ORDERABLES [...] 08/19/2020 1:41 PM CDT [facility] Comment: Urine immunofixation electrophoresis shows polyclonal IgG and IgA immunoglobulins. Urine immunofixation electrophoresis shows polyclonal kappa and lambda light chains. No monoclonal immunoglobulins detected. Liana Slade PhD, [facility] Clinical Channel Opener pastoral worker *The electrophoresis pattern and the interpretation have been reviewed and verified by the teaching physician. Urine URINE SPECIMEN COLLECTION, 24 HOURS / Unknown Timed Urine Volume Measurement / Unknown 08/14/2020 2:53 PM CDT 08/14/2020 4:20 PM CDT Gaurang Harman MD LAB - URINE CHEMISTR Y ORDERABLES [address] [address], [facility] [phone] * LEAD URINE (08/11/2020 4:56 PM CDT) Lead Urine ug/L <5.0 0.0 - 5.0 ug/L 08/17/2020 11:08 AM CDT [facility] ([facility]) Comment: INTERPRETIVE INFORMATION: Lead, Urine Quantification of urine excretion rates before or after chelation therapy has been used as an indicator of lead exposure. Urinary excretion of >125 mg of lead per 24 hours is usually associated with related evidence of lead toxicity. This test was developed and its performance characteristics determined by [employer]. It has not been cleared or approved by the US Food and Drug Administration. This test was performed in a CLIA certified laboratory and is intended for clinical purposes. Collection Time Hours Random hr 08/17/2020 11:08 AM CDT [facility] ([facility]) Comment: Per 24h calculations are provided [...] Urine Random mL 08/17/2020 11:08 AM CDT [facility] ([facility]) Lead Urine ug/24HR Not Applicable 0.0 - 8.1 ug/d 08/17/2020 11:08 AM CDT [facility] ([facility]) Lead Urine ug/g creat Not Applicable 0.0 - 5.0 ug/g SUPERVISOR BEAM DEPARTMENT 08/17/2020 11:08 AM CDT [facility] ([facility]) Comment: Unable to accurately calculate the creatinine normalized result due to a low per volume result. Creatinine Urine 32 mg/dL 08/18/19 11:08 AM CDT [facility] ([facility]) Creatinine 24 Hour Urine Not Applicable 500 - 1400 mg/d 08/17/2020 11:08 AM CDT [facility] ([facility]) Comment: Performed by [facility], [address] [place] [address] [email or web address], Jolene Andujar MD, Lab. Director Urine URINE SPECIMEN OBTAINED BY CLEAN CATCH PROCEDURE / Unknown Collection / Unknown 08/11/2020 4:56 PM CDT 08/11/2020 4:56 PM CDT Narrative [facility] ([facility]) - 08/17/2020 11:08 AM CDT Test results should be interpreted with caution. Assay was performed at client's request on a sub-optimal specimen. Gaurang Harman MD LAB - URINE CHEMISTR Y ORDERABLES [facility] ([facility]) [address] * ARSENIC EXPOSURE PROFILE URINE (08/11/2020 4:55 PM CDT) Arsenic Total 24 Hour Urine See Scanned Report 03/08/2021 4:22 PM CDT [facility] ([facility]) Urine URINE / Unknown Collection / Unknown 08/11/2020 4:55 PM CDT 08/11/2020 4:56 PM CDT Gaurang Harman MD LAB - TOXICOLOGY ORD ERABLES [facility] ([facility]) [address] [place] [address], [facility] * MERCURY URINE (08/11/2020 4:55 PM CDT) Mercury Urine <2.5 0.0 - 5.0 ug/L 08/17/2020 11:19 AM CDT [facility] ([facility]) Comment: INTERPRETIVE INFORMATION: Mercury, Urine Urinary [...] developed and its performance characteristics determined by [employer]. It has not been cleared or approved by the US Food and Drug Administration. This test was performed in a CLIA certified laboratory and is intended for clinical purposes. Collection Time Hours Random hr 08/17/2020 11:19 AM CDT [facility] ([facility]) Comment: Sub-optimal specimen type. Specimen was received in a noncertified trace element-free tube. Results from noncertified trace element-free tubes may be falsely elevated due to contamination. Concentrations of trace elements should be confirmed with a second specimen transported in a certified trace element-free tube. Specimen tested at client's request. [id number] Per 24h calculations are provided to aid interpretation for collections with a duration of 24 hours and an average daily urine volume. For specimens with notable deviations in collection time or volume, ratios of analytes to a corresponding urine creatinine concentration may assist in result interpretation. Volume 24 Hour Urine Random mL 08/17/2020 11:19 AM CDT [facility] ([facility]) Mercury 24 Hour Urine Not Applicable 0.0 - 20.0 ug/d 08/17/2020 11:19 AM CDT [facility] ([facility]) Mercury ug/g Creat Urine Not Applicable 0.0 - 20.0 ug/g SUPERVISOR BEAM DEPARTMENT 08/17/2020 11:19 AM CDT [facility] ([facility]) Comment: Unable to accurately calculate the creatinine normalized result due to a low per volume result. Creatinine Urine 32 mg/dL 08/18/19 11:19 AM CDT [facility] ([facility]) Creatinine 24 Hour Urine Not Applicable 500 - 1400 mg/d 08/17/2020 11:19 AM CDT [facility] ([facility]) Comment: Performed by [facility], [address] [place] [id number] [email or web address], Jolene Andujar MD, Lab. Director Urine URINE / Unknown Collection / Unknown 08/11/2020 4:55 PM CDT 08/11/2020 4:56 PM CDT Narrative [facility] ([facility]) - 08/17/2020 11:19 AM CDT Test results should be interpreted with caution. Assay was performed at client's request on a sub-optimal specimen. Gaurang Harman MD LAB - URINE CHEMISTR Y ORDERABLES [facility] ([facility]) [address] * SS-A (SJOGREN'S) 52+60 ANTIBODIES (08/11/2020 3:58 PM CDT) SS-A 52 Antibody 0 0 - 40 AU/mL 08/14/2020 8:20 AM CDT [facility] ([facility]) Comment: INTERPRETIVE INFORMATION: SSA-52 (Ro52) ([place]ICA) [...] - 40 AU/mL 08/14/2020 8:20 AM CDT [facility] ([facility]) Comment: REFERENCE INTERVAL: SSA-60 (Ro60) ([place]) Antibody, IgG 29 AU/mL or Less ............. Negative 30 - 40 AU/mL ................ Equivocal 41 AU/mL or Greater .......... Positive Performed By: [facility] [address] [place] [address] Natural Resources Specialist: Jolene Andujar MD Blood BLOOD SPECIMEN / Unknown Lab Venipuncture / Unknown 08/11/2020 3:58 PM CDT 08/11/2020 5:05 PM CDT Gaurang Harman MD LAB - CHEMISTRY BEVERLY DOMINGUEZ Performing Organization Address City/[facility]/ZIP Co de Phone Number [facility]) [address] [place] [address] * LAB MISC TEST (08/11/2020 3:58 PM CDT) Test Name SEE SCANNED REPORT 01/10/2021 9:19 AM CDT [facility] Blood BLOOD SPECIMEN / Unknown Lab Venipuncture / Unknown 08/11/2020 3:58 PM CDT 08/11/2020 4:21 PM CDT Gaurang Harman MD LAB SEND OUT [facility] [address] [place] [address] * IMMUNOFIXATION BLOOD (08/11/2020 3:58 PM CDT) Immunofixation Serum Normal Pattern Normal Pattern 08/19/2020 1:41 PM CDT [facility] Comment: No monoclonal immunoglobulins detected by serum immunotyping. Liana Slade PhD, [facility] Clinical Channel Opener pastoral worker *The electrophoresis pattern and the interpretation have been reviewed and verified by the teaching physician. Blood BLOOD SPECIMEN / Unknown Lab Venipuncture / Unknown 08/11/2020 3:58 PM CDT 08/11/2020 5:04 PM CDT Gaurang Harman MD LAB - CHEMISTRY BEVERLY DOMINGUEZ [facility] [place] [address] [place] [address], [facility] [phone] * T4 FREE DIRECT DIALYSIS (08/11/2020 3:58 PM CDT) T4 Free Direct Dialysis 2.0 1.1 - 2.4 ng/dL 08/15/2020 4:38 AM CDT [facility] ([facility]) Comment: FREE T4 BY EQUIL DIALYSIS-TMS: REFERENCE INTERVALS 1ST TRIMESTER ...... 0.7 - 2.0 ng/dL 2ND TRIMESTER ...... 0.7 - 2.1 ng/dL 3RD TRIMESTER ...... 0.5 - 1.6 ng/dL INTERPRETIVE INFORMATION: FT4 ED-TMS This test was developed and its performance characteristics determined by [facility]. It has not been cleared or approved by the US Food and Drug Administration. This test was performed in a CLIA certified laboratory and is intended for clinical purposes. Performed By: [facility] [address] [place] [address] Natural Resources Specialist: Jolene Andujar MD Blood BLOOD SPECIMEN / Unknown Lab Venipuncture / Unknown 08/11/2020 3:58 PM CDT 08/11/2020 5:05 PM CDT Santiago Banuelos MD LAB - CHEMISTRY ORD HARMAN Performing Organization Address City/[facility]/ZIP Co de Phone Number [facility]) [address] * MILLER (SM) ANTIBODY [place] (08/11/2020 3:58 PM CDT) Miller ([place]) Antibody 1 0 - 40 AU/mL 08/13/2020 10:29 AM CDT [facility] ([facility]) Comment: INTERPRETIVE INFORMATION: Miller ([place]) Antibody, [...] associations with SLE clinical manifestations. Performed By: [facility] [address] [place] [address] Natural Resources Specialist: Jolene Andujar MD Blood BLOOD SPECIMEN / Unknown Lab Venipuncture / Unknown 08/11/2020 3:58 PM CDT 08/11/2020 5:05 PM CDT Gaurang Harman MD LAB - CHEMISTRY [facility] Organization Address City/State/ZIP Co de Phone Number [facility]) [address] [place] [address], [facility] * GABE BLOOD SCREEN W/REFLEX TITER (08/11/2020 3:58 PM CDT) GABE IgG None Detected None Detected 08/13/2020 10:56 PM CDT [facility] ([facility]) Comment: If suspicion of connective tissue disease is strong and GABE EIA is negative, consider testing for GABE by IFA ([id number]). INTERPRETIVE INFORMATION: Anti-Nuclear Antibodies (GABE), IgG by IDANIA Antinuclear Antibodies (GABE), IgG by IDANIA: GABE specimens are screened using enzyme-linked immunosorbent assay (IDANIA) methodology. All IDANIA results reported as Detected are further tested by indirect fluorescent assay (IFA) using HEp-2 substrate with an IgG-specific conjugate. The GABE IDANIA screen is designed to detect antibodies against dsDNA, histones, SS-A (Ro), SS-B (La), Miller, Miller/MANAGER ASSET, Scl-70, Gisselle-1, centromeric proteins, other antigens extracted from the HEp-2 cell nucleus. GABE IDANIA assays have been reported to have lower sensitivities than GABE IFA for systemic autoimmune rheumatic diseases (SARD). Negative results do not necessarily rule out SARD. Performed By: [facility] [address] [place] [address] Natural Resources Specialist: Jolene Andujar MD Blood BLOOD SPECIMEN / Unknown Lab Venipuncture / Unknown 08/11/2020 3:58 PM CDT 08/11/2020 5:05 PM CDT Gaurang Harman MD LAB - CHEMISTRY BEVERLY DOMINGUEZ Performing Organization Address [facility] de Phone Number [facility]) [address] * METHYLMALONIC ACID BLOOD (08/11/2020 3:58 PM CDT) Methylmalonic Acid 0.19 0.00 - 0.40 umol/L 08/15/2020 4:31 AM CDT [facility] ([facility]) Comment: INTERPRETIVE INFORMATION: MMA Serum/Plasma, Vitamin B12 Status This test was developed and its performance characteristics determined by [employer]. It has not been cleared or approved by the US Food and Drug Administration. This test was performed in a CLIA certified laboratory and is intended for clinical purposes. Performed By: [facility] [address] [place] [address] Natural Resources Specialist: Jolene Andujar MD Blood BLOOD SPECIMEN / Unknown Lab Venipuncture / Unknown 08/11/2020 3:58 PM CDT 08/11/2020 5:05 PM CDT Gaurang Harman MD LAB - CHEMISTRY BEVERLY DOMINGUEZ Performing Organization Address [facility] de Phone Number [facility]) [address] * ZINC BLOOD (08/11/2020 3:58 PM CDT) Zinc 67.3 60.0 - 120.0 ug/dL 08/13/2020 7:25 AM CDT [facility] ([facility]) Comment: INTERPRETIVE INFORMATION: Zinc, Serum or [...] developed and its performance characteristics determined by [employer]. It has not been cleared or approved by the US Food and Drug Administration. This test was performed in a CLIA certified laboratory and is intended for clinical purposes. Performed By: [facility] [employer] [address] [place] [address] Natural Resources Specialist: Jolene Andujar MD Blood BLOOD SPECIMEN / Unknown Lab Venipuncture / Unknown 08/11/2020 3:58 PM CDT 08/11/2020 4:21 PM CDT Gaurang Harman MD LAB - CHEMISTRY ORDZuhair DOMINGUEZ Performing Organization Address [facility] Co de Phone Number [facility]) [address] [place] [address] * VITAMIN E (08/11/2020 3:58 PM CDT) [facility] Vitamin E Alpha Tocopherol 9.5 5.5 - 18.0 mg/L 08/15/2020 3:49 PM CDT [facility] [employer] ([facility]) Comment: This test was developed and its performance characteristics determined by [employer]. It has not been cleared or approved by the US Food and Drug Administration. This test was performed in a CLIA certified laboratory and is intended for clinical purposes. Vitamin E Gamma Tocopherol 1.2 0.0 - 6.0 mg/L 08/15/2020 3:49 PM CDT [facility] [employer] ([facility]) Comment: Performed By: [employer] [address] [place] [address] Natural Resources Specialist: Jolene Andujar MD Blood BLOOD SPECIMEN / Unknown Lab Venipuncture / Unknown 08/11/2020 3:58 PM CDT 08/11/2020 5:04 PM CDT Gaurang Harman MD LAB - CHEMISTRY BEVERLY DOMINGUEZ Performing Organization Address [facility] Co de Phone Number [facility]) [address] [place] [address] * COPPER BLOOD (08/11/2020 3:58 PM CDT) Copper 121.3 80.0 - 155.0 ug/dL 08/13/2020 7:25 AM CDT [facility] ([facility]) Comment: INTERPRETIVE INFORMATION: Copper, Serum or [...] developed and its performance characteristics determined by [employer]. It has not been cleared or approved by the US Food and Drug Administration. This test was performed in a CLIA certified laboratory and is intended for clinical purposes. Performed By: [employer] [address] [place] [address] Natural Resources Specialist: Jolene Andujar MD Blood BLOOD SPECIMEN / Unknown Lab Venipuncture / Unknown 08/11/2020 3:58 PM CDT 08/11/2020 4:21 PM CDT Gaurang Harman MD LAB - CHEMISTRY BEVERLY DOMINGUEZ [facility] Organization Address City/State/ZIP Co de Phone Number [facility]) [address] [place] [address] * SS-B (SJOGREN'S) ANTIBODY (08/11/2020 3:58 PM CDT) SS-B Antibody 0 0 - 40 AU/mL 08/14/2020 7:44 AM CDT [facility] ([facility]) Comment: INTERPRETIVE INFORMATION: SSB ([place]) ([place]) [...] (PSS) also have this antibody. Performed By: [employer] [address] [place] [address] Natural Resources Specialist: Jolene Andujar MD Blood BLOOD SPECIMEN / Unknown Lab Venipuncture / Unknown 08/11/2020 3:58 PM CDT 08/11/2020 5:04 PM CDT Gaurang Harman MD LAB - CHEMISTRY ORDE ANGELICA [facility]) [address] [place] [address], [facility] * DNA ANTIBODY DOUBLE STRANDED (08/11/2020 3:58 PM CDT) Pathologist [facility] dsDNA Antibody None Detected None Detected 08/13/2020 1:38 PM CDT [facility] ([facility]) Comment: INTERPRETIVE INFORMATION: Double-Stranded DNA (dsDNA) [...] recommendations for testing may be found at http://[email or web address].com/Topics/AutoimmuneDz/ConnectiveTissueDz/i ndex.html. Performed By: [employer] [address] [place] [address] Natural Resources Specialist: Jolene Andujar MD Blood BLOOD SPECIMEN / Unknown Lab Venipuncture / Unknown 08/11/2020 3:58 PM CDT 08/11/2020 5:05 PM CDT Gaurang Harman MD LAB - HEMATOLOGY ORD ERABLES Performing Organization Address [facility]/ZIP Co de Phone Number [facility]) [address] * ALDOLASE (08/11/2020 3:58 PM CDT) Pathologist [facility] Aldolase 4.8 1.5 - 8.1 U/L 08/13/2020 6:48 AM CDT [facility] [employer] ([facility]) Comment: REFERENCE INTERVAL: Aldolase Access complete set of age- and/or gender-specific reference intervals for this test in the [employer] [facility] Test Directory (St[employer]). Performed By: [employer] [address] [place] [address] Natural Resources Specialist: Jolene Andujar MD Blood BLOOD SPECIMEN / Unknown Lab Venipuncture / Unknown 08/11/2020 3:58 PM CDT 08/11/2020 5:05 PM CDT Gaurang Harman MD LAB - CHEMISTRY ORDE RABLES Performing Organization Address [facility] Co de Phone Number [facility] [employer] ([facility]) [address] * KAPPA/LAMBDA LITE CHAIN FREE PANEL (08/11/2020 3:58 PM CDT) Pathologist [facility] Knapp Quant Free Light Chain 13.30 3.30 - 19.40 mg/L 08/14/2020 7:34 AM CDT [facility] [employer] ([facility]) Comment: INTERPRETIVE INFORMATION: Knapp Qnt Free Light Chains Undetected antigen excess is a rare event but cannot be excluded. Free light chain results should always be interpreted in conjunction with other clinical and laboratory findings. Lambda Free Light Chain Quantitative 10.71 5.71 - 26.30 mg/L 08/14/2020 7:34 AM CDT [facility] [employer] ([facility]) Knapp/Lambda Free Light Chain ratio 1.24 0.26 - 1.65 08/14/2020 7:34 AM CDT [facility] [employer] ([facility]) Comment: Performed By: [employer] [address] [place] [address] Natural Resources Specialist: Jolene Andujar MD Blood BLOOD SPECIMEN / Unknown Lab Venipuncture / Unknown 08/11/2020 3:58 PM CDT 08/11/2020 5:06 PM CDT Gaurang Harman MD LAB - CHEMISTRY BEVERLY DOMINGUEZ [facility]) [address] * (ABNORMAL) ERYTHROCYTE SEDIMENTATION RATE (08/11/2020 3:58 PM CDT) [facility] Erythrocyte Sedimentation Rate Westergren 58(H) 0 - 30 MM/HR 08/11/2020 4:45 PM CDT [facility] Blood BLOOD SPECIMEN / Unknown Lab Venipuncture / Unknown 08/11/2020 3:58 PM CDT 08/11/2020 4:24 PM CDT Gaurang Harman MD LAB - HEMATOLOGY TOSHA HAMMER Performing Organization Address [facility]/ZIP Co de Phone Number [address] [address], [place] [phone] * CK BLOOD (08/11/2020 3:58 PM CDT) [facility] CK Total 128 30 - 200 Units/L 08/11/2020 5:24 PM CDT [facility] Blood BLOOD SPECIMEN / Unknown Lab Venipuncture / Unknown 08/11/2020 3:58 PM CDT 08/11/2020 4:24 PM CDT Gaurang Harman MD LAB - CHEMISTRY BEVERLY DOMINGUEZ Performing Organization Address [facility]/ZIP Co de Phone Number [address] [address], [place] [phone] * T4 FREE (08/11/2020 3:58 PM CDT) Only the most recent of2 resultswithin the time period is included. [facility] T4 Free 1.1 0.7 - 1.5 ng/dL 08/11/2020 5:22 PM CDT [facility] Blood BLOOD SPECIMEN / Unknown Lab Venipuncture / Unknown 08/11/2020 3:58 PM CDT 08/11/2020 4:24 PM CDT Santiago Banuelos MD LAB - CHEMISTRY ORD ERABLES [facility] [address] [place] [address], [facility] [phone] * OR US GUIDED NEEDLE PLACEMENT, OR US SOFT TISS HEAD&NCK R-T IMG, OR FNA BX W US GDN 1ST LES (07/23/2020 2:18 PM DIRECTOR OF VALUATION) Narrative Santiago Banuelos MD - 07/23/2020 2:18 PM DIRECTOR OF VALUATION Santiago Banuelos MD 07/23/2020 2:36 PM Ultrasound Of Thyroid Ultrasound of the Thyroid PHYSICIAN Santiago Banuelos MD FELLOW NONE Test Date: 07/23/2020 Test Indication: Patient Active Problem List: Typical atrial flutter Thyroid nodule Goiter, nontoxic, multinodular Referring Physician: Dr. Kristen Graf, APPLICATION COORDINATOR-MERCURY WASHER Procedure Preformed: Ultrasound and Biopsy Nodule Size: [...] Thyroid Date: 07/23/2020 Referring MD: Kristen Graf APRN-MERCURY WASHER Physician: Santiago Banuelos MD Fellow: NONE History: [...] guidelines. Report dictated by Cas Cordero MD (compensation vice president). ACR TI-RADS recommendations TR5 (>=7 points) (risk [...] ASPIRATION - THYROID (STL) (07/23/2020 1:31 PM DIRECTOR OF VALUATION) Case Report Medical Cytology Report Case: [id number] Authorizing Provider: Santiago Banuelos MD Collected: 07/23/2020 01:31 PM Ordering Location: [facility] Endocrinology, Received: 07/23/2020 03:14 PM [...] determined by the Histopathology Laboratory of [facility]. Some of these tests rely on the use of analyte-specific reagents and are subject to specific labeling requirements by the [place] Food and Drug Administration. Such tests were developed by the Histology Laboratory of [facility] and have not been cleared or approved [...] attending (teaching) pathologist. 07/28/2020 2:59 PM CDT [facility] Embedded Images 07/28/2020 2:59 PM CDT [facility] Pathology/Cytolo gy MASS OF THYROID GLAND / Unknown Collection / Unknown 07/23/2020 1:31 PM DIRECTOR OF VALUATION 07/23/2020 3:14 PM DIRECTOR OF VALUATION Santiago Banuelos MD LAB - PATHOLOGY/CYT OLOGY ORDERABLES Performing Organization Address City/State/[facility] Co de Phone Number [facility] [address] [phone] * US THYROID (07/16/2020 10:56 AM DIRECTOR OF VALUATION) Anatomical Region Laterality Modality Chest Ultrasound 07/16/2020 10:4 2 AM DIRECTOR OF VALUATION Impressions 07/16/2020 2:44 PM DIRECTOR OF VALUATION IMPRESSION: 1. 2.8 cm right thyroid lobe nodule (TI-RADS 3), recommend fine-needle aspiration. 2. 0.5 cm left thyroid lobe nodule (TI-RADS 4). No further imaging evaluation is needed according to ACR TI-RADS guidelines. Report dictated by Cas Cordero MD (compensation vice president). ACR TI-RADS recommendations TR5 (>=7 points) (risk [...] 2:44 PM . Narrative 07/16/2020 2:44 PM DIRECTOR OF VALUATION EXAMINATION: THYROID SONOGRAM HISTORY: 79-year-old female with [...] to ACR TI-RADS guidelines. Report dictated by Csa Cordero MD (compensation vice president). ACR TI-RADS recommendations TR5 (>=7 points) (risk [...] THOMPSON on 07/16/2020 2:44 PM. Kristen Graf APPLICATION COORDINATOR-MERCURY WASHER US ORDERABLES * MRI THORACIC SPINE WO CONTRAST (05/25/2020 10:32 AM DIRECTOR OF VALUATION) Anatomical Region Laterality Modality Chest Magnetic Resonan ce 05/25/2020 12:2 1 PM DIRECTOR OF VALUATION Impressions 05/25/2020 1:49 PM DIRECTOR OF VALUATION IMPRESSION: 1. No acute fracture, marrow edema [...] 1:49 PM . Narrative 05/25/2020 1:49 PM DIRECTOR OF VALUATION EXAMINATION: 1. MRI OF THE CERVICAL SPINE [...] normal. A small perineural cyst in the [id number] neural foramen is visible. L2-L3: The combination [...] LUMBAR SPINE WO CONTRAST (05/25/2020 10:32 AM DIRECTOR OF VALUATION) Anatomical Region Laterality Modality Spine Magnetic Resonan ce 05/25/2020 12:2 1 PM DIRECTOR OF VALUATION Impressions 05/25/2020 1:49 PM DIRECTOR OF VALUATION IMPRESSION: 1. No acute fracture, marrow edema [...] 1:49 PM . Narrative 05/25/2020 1:49 PM DIRECTOR OF VALUATION EXAMINATION: 1. MRI OF THE CERVICAL SPINE [...] normal. A small perineural cyst in the [id number] neural foramen is visible. L2-L3: The combination [...] CERVICAL SPINE WO CONTRAST (05/25/2020 10:32 AM DIRECTOR OF VALUATION) Anatomical Region Laterality Modality Pelvis Magnetic Resonan ce 05/25/2020 12:2 1 PM DIRECTOR OF VALUATION Impressions 05/25/2020 1:49 PM DIRECTOR OF VALUATION IMPRESSION: 1. No acute fracture, marrow edema [...] 1:49 PM . Narrative 05/25/2020 1:49 PM DIRECTOR OF VALUATION EXAMINATION: 1. MRI OF THE CERVICAL SPINE [...] normal. A small perineural cyst in the [id number] neural foramen is visible. L2-L3: The combination [...] ENTIRE 2 OR 3VW (05/20/2020 1:20 PM DIRECTOR OF VALUATION) Anatomical Region Laterality Modality Spine Radiographic Kathleen ging 05/20/2020 4:05 PM DIRECTOR OF VALUATION Impressions 05/20/2020 4:08 PM DIRECTOR OF VALUATION IMPRESSION: Thoracolumbar scoliosis with sagittal plane imbalance. This report was electronically signed by GIL BERNARD MD on 05/20/2020 4:08 PM . Narrative 05/20/2020 4:08 PM DIRECTOR OF VALUATION Exam: XR SPINE ENTIRE 2 VW History: [...] COMPLETE PFT W/WO BRONCHODILATOR (05/18/2020 10:49 AM DIRECTOR OF VALUATION) Impressions Reza Paul MD - 05/18/2020 10:49 AM DIRECTOR OF VALUATION [facility] DEPARTMENT OF PULMONARY, [...] of Pulmonary, Critical Care and Sleep Medicine [facility] Pager: [phone] I have reviewed this study and agree with the interpretation by the Money Counter. Reza Paul M.D. Adult Literacy Teacher of Internal Medicine Division of Pulmonary, Critical Care and Sleep Medicine [facility] Narrative Reza Paul MD - 05/18/2020 10:49 AM DIRECTOR OF VALUATION Maggie Paredes MD 05/20/2020 5:22 PM Marcelina Parisi MD RESPIRATORY THERAPY ORDERABLES * IMAGING RADIOLOGY XRAY RESULTS ORDER (05/12/2020 12:16 PM DIRECTOR OF VALUATION) Anatomical Region Laterality Modality Other Narrative 05/12/2020 12:16 PM DIRECTOR OF VALUATION Ordered by an unspecified provider. Scanned Document IMAGING * CBC W/O DIFFERENTIAL (05/12/2020 7:03 AM DIRECTOR OF VALUATION) Only the most recent of2 resultswithin the [...] 12.5 fL [facility] Comment: Test Performed at: [employer] [facility] [id number] [place] [address] ENRICO WYNN,DO,MPH 05/12/2020 7:03 AM DIRECTOR OF VALUATION 05/12/2020 7:04 AM DIRECTOR OF VALUATION Kristen AGUILAR LAB - HEMATOLOG Y ORDERABLES [facility] [id number] [place] [address] Care Teams [employer] Buyer Relationship Specialty Start Date End Date Kristen Graf, JEFF [address] [address] PCP - General 05/24/21
--- OUTSIDE RECORDS SUMMARY | 2024-07-26 11:24 | XMS_ITS | Clinical Summary ---
Author Organization [facility] [employer] Address [address] [facility] [address] [place] [address] Care Team Providers Care Open Hearth Melter Name Role Phone Kristen Graf [facility] Primary Care Provider Source Comments [facility] [employer],non-owned Affiliates and Associated Physician Practices is amultiple site organization consisting of ambulatory clinics and hospital sitesin [place], [place]. This disclosure is being madepursuant to the Care Everywhere program and may not contain all information available regarding this patient. Last updated 18.[facility] [employer] Allergies No known active allergies Medications * [...] Active ipratropium (Atrovent) 0.03 % nasal spray [place] 2 sprays into each nostril 2 times [...] migh t be different from the original. Sales Administrator - Dr Asaf Ramirez Problem Noted Date [...] Physician Group - Cardiology [address] [facility], [facility] [address] [place] [address] Mani Green RN Nausea 07/22/2024 Orders Only [facility] - [facility]iatrics [address] [place] [phone] Kristen Graf, CARE TRANSITION MANAGER-ORGAN PIPE FINISHER Leukocytosis, unspecified type ; Hyponatremia 07/19/2024 9:38 AM STRING TOP SEALER - 07/19/2024 11:59 PM STRING TOP SEALER Hospital Encounter [facility]RAW [facility]ATION [address] [place] [phone] Kristen Graf, CARE TRANSITION MANAGER-ORGAN PIPE FINISHER Discharge Disposition: Home or Self Care 07/19/2024 9:30 AM STRING TOP SEALER Office Visit [facility] - Pulmonology [address] [place] [phone] Jack Milian MD Abnormal CT lung screening (Primary Dx); Immunization counseling 07/19/2024 Travel 07/10/2024 Orders Only [facility] - Geriatrics [address] [place] [address] Kristen Graf, CARE TRANSITION MANAGER-ORGAN PIPE FINISHER COVID-19 ; Pneumonia due to COVID-19 virus 07/10/2024 Telephone [facility] - Cardiology [address] [place] [phone] Mani Green RN Question 07/05/2024 Telephone [facility] - Internal Med [address] [place] [phone] Kristen Graf, CARE TRANSITION MANAGER-PURNIMA General (Hospitalized) 06/27/2024 Refill [facility] - Cardiology [address] [place] [phone] Mani Green, DRAFTER ELECTRONIC REFILL 05/21/2024 1:10 AM STRING TOP SEALER Clinical Support [facility] - Cardiology [address] [place] [address], [address] [phone] SSS (sick sinus syndrome) (HCC) from Last 3 Months Immunizations Name Administration Dates Next Due Work in Field primary monoval ent 12+ yr 0.3mL Purple [...] Comments Blood Pressure 96/61 07/19/2024 9:02 AM STRING TOP SEALER Pulse 80 07/19/2024 9:02 AM STRING TOP SEALER Temperature 36.7 C (98.1 F) 03/28/2024 1:41 PM STRING TOP SEALER Respiratory Rate 17 07/19/2024 9:02 AM STRING TOP SEALER Oxygen Saturation 92% 07/19/2024 9:02 AM STRING TOP SEALER Inhaled Oxygen Concentration - - Weight 70.7 kg (155 lb 12.8 oz) 07/19/2024 9:02 AM STRING TOP SEALER Height 167.6 cm (5' 6 ) 07/19/2024 9:02 AM STRING TOP SEALER Body Mass Index 25.15 07/19/2024 9:02 AM STRING TOP SEALER Plan of Treatment Upcoming Encounters Date Type Department Care Team (Late st Contact Info) Description 08/02/2024 9:30 AM CDT [facility] [address] [place] [phone] Kristen Graf, CARE TRANSITION MANAGER-ORGAN PIPE FINISHER [address] [place] [phone] 08/20/2024 1:10 AM CDT Clinical Support [facility] - Cardiology [address] [place] [phone] 10/10/2024 10:20 AM CDT Office Visit [facility] - Cardiology [address] [place] [phone] Bharathi Higuera MD [address] [place] [address] 11/19/2024 1:10 AM CDT Clinical Support [facility] - Cardiology [address] [place] [phone] 01/24/2025 10:30 AM CDT Office Visit [facility] - Pulmonology [address] [place] [phone] Jack Milian MD [address] [place] [address] 2L DIV OF PULM/[place] [address] Health Maintenance Due Date Last Done Comments [...] last dose Medical Devices Implanted Type Area Coil Cleaner Device Identifier Shelf Expiration Date Model / Serial / Lot Lead Cp Nv Pace 52cm Strd Elut Pltn Amada - [id number] Implanted:Qty: 1 on 08/16/2021 by Bharathi Higuera MD at [facility] Right: Ventricle [employer] 04/13/2023 5076-52 / [id number] / Description:RV Lead Lead Cp Nv Pace 45cm Strd Elut Pltn Amada - [id number] Implanted:Qty: 1 on 08/16/2021 by Bharathi Higuera MD at [facility] Right: Atrium [employer] 05/06/2023 5076-45 / [id number] / Description:RA lead Pacemkr Reubens Wirelessly Crd - [id number] Implanted:Qty: 1 on 08/16/2021 by Bharathi Higuera MD at [facility] Right: Chest [employer] 01/09/2023 [id number] / [id number] / Description:ICD Procedures Procedure Name Priority Date/Time Associated Diagnosis Comments DIFFERENTIAL MANUAL Routine 07/19/2024 9 :46 AM STRING TOP SEALER COVID-19 Pneumonia due to COVID-19 virus CBC W AUTO DIFFERENTIAL Routine 07/19/2024 9:46 AM STRING TOP SEALER COVID-19 Pneumonia due to COVID-19 virus BASIC METABOLIC PANEL (CALCIUM TOTAL) Routine 07/19/2024 9:46 AM STRING TOP SEALER COVID-19 Pneumonia due to COVID-19 virus CO PM/ICD REMOTE TECH SERV Routine 05/26/2024 4:54 PM STRING TOP SEALER SSS (sick sinus syndrome) (HCC) CO PM DEVICE INTERROGATE REMOTE Routine 05/26/2024 4:54 PM STRING TOP SEALER SSS (sick sinus syndrome) (HCC) CARDIAC PROCEDURE ORDER 05/20/2024 DEXA BONE DENSITY AXIAL SKELETON Routine 06/17/2022 1:22 PM STRING TOP SEALER Primary osteoarthritis involving multiple joints Osteoporosis, unspecified osteoporosis type, unspecified pathological fracture presence from Last 3 Months or Most Recently Relevant to Health Maintenance Results * (ABNORMAL) DIFFERENTIAL MANUAL (07/19/2024 9:46 AM STRING TOP SEALER) Neutrophil % 81(H) 41 - 74 % 07/19/2024 10:57 AM STRING TOP SEALER [facility] Lymphocyte % 10(L) 17 - 47 % 07/19/2024 10:57 AM STRING TOP SEALER [facility] Monocyte % 7 3 - 11 % 07/19/2024 10:57 AM [facility] Eosinophil % 2 0 - 7 % 07/19/2024 10:57 AM [facility] Neutrophil Absolute 11.50(H) 1.60 - 7.50 x10E9/L 07/19/2024 10:57 AM [facility] Lymphocyte Absolute 1.42 1.00 - 4.40 x10E9/L 07/19/2024 10:57 AM [facility] Monocyte Absolute 0.99 0.15 - 1.00 x10E9/L 07/19/2024 10:57 AM [facility] Eosinophil Absolute 0.28 0.00 - 0.60 x10E9/L 07/19/2024 10:57 AM [facility] RBC Morphology NORMAL 07/19/2024 10:57 AM [facility] Blood BLOOD SPECIMEN / Unknown Lab Venipuncture / Unknown 07/19/2024 9:46 AM STRING TOP SEALER 07/19/2024 10:17 AM [facility] Kristen Graf CARE TRANSITION MANAGER-ORGAN PIPE FINISHER LAB - HEMATOLOG Y ORDERABLES Performing Organization Address City/State/[facility] Co de Phone Number [address] [address] [phone] * (ABNORMAL) CBC W/ DIFFERENTIAL (07/19/2024 9:46 AM STRING TOP SEALER) WBC 14.2(H) 4.0 - 10.7 x10E9/L 07/19/2024 10:57 AM [facility] RBC Count 3.48(L) 3.90 - 5.20 x10E12/L 07/19/2024 10:57 AM [facility] Hemoglobin 10.8(L) 11.9 - 15.8 g/dL 07/19/2024 10:57 AM [facility] Hematocrit 32.9(L) 34.8 - 46.1 % 07/19/2024 10:57 AM [facility] MCV 94.5 80.0 - 98.0 fL 07/19/2024 10:57 AM [facility] MCH 31.0 26.7 - 33.6 pg 07/19/2024 10:57 AM [facility] MCHC 32.8 31.7 - 36.3 g/dL 07/19/2024 10:57 AM [facility] RDW-CV 15.9(H) 11.3 - 14.8 % 07/19/2024 10:57 AM [facility] Platelet Count 171 150 - 420 x10E9/L 07/19/2024 10:57 AM [facility] MPV 9.2 7.8 - 11.4 fL 07/19/2024 10:57 AM [facility] Blood BLOOD SPECIMEN / Unknown Lab Venipuncture / Unknown 07/19/2024 9:46 AM STRING TOP SEALER 07/19/2024 10:17 AM STRING TOP SEALER Kristen Graf CARE TRANSITION MANAGER-ORGAN PIPE FINISHER LAB - HEMATOLOG Y ORDERABLES [facility] [address] [place] [address], [facility] [phone] * (ABNORMAL) BASIC METABOLIC PANEL (CALCIUM TOTAL) (07/19/2024 9:46 AM STRING TOP SEALER) BUN 23 7 - 26 mg/dL 07/19/2024 10:53 AM [facility] Creatinine 0.89 0.56 - 0.96 mg/dL 07/19/2024 10:53 AM [facility] Sodium 140 136 - 145 mmol/L 07/19/2024 10:53 AM [facility] Potassium 3.4(L) 3.5 - 4.5 mmol/L 07/19/2024 10:53 AM [facility] Chloride 105 98 - 107 mmol/L 07/19/2024 10:53 AM [facility] CO2 27 22 - 29 mmol/L 07/19/2024 10:53 AM [facility] Glucose 149(H) 70 - 99 mg/dL 07/19/2024 10:53 AM [facility] Calcium 8.4 8.4 - 10.2 mg/dL 07/19/2024 10:53 AM [facility] Anion Gap 8 6 - 16 07/19/2024 10:53 AM [facility] BUN/Creatinine Ratio 26(H) 7 - 23 07/19/2024 10:53 AM [facility] Osmolality Calculated 296(H) 275 - 295 mOsm/kg 07/19/2024 10:53 AM [facility] eGFR by CKD-EPI 64(L) >=90 mL/min/1.7 3 m2 07/19/2024 10:53 AM [facility] Blood BLOOD SPECIMEN / Unknown Lab Venipuncture / Unknown 07/19/2024 9:46 AM STRING TOP SEALER 07/19/2024 10:17 AM STRING TOP SEALER Kristen Graf CARE TRANSITION MANAGER-ORGAN PIPE FINISHER LAB - CHEMISTRY ORDERABLES [facility] [address] [place] [address], [facility] [phone] * CO PM DEVICE INTERROGATE REMOTE, CO PM/ICD REMOTE TECH SERV (05/26/2024 4:54 PM STRING TOP SEALER) Narrative Nanette Aldridge MD - 05/26/2024 4:54 PM STRING TOP SEALER Nanette Aldridge MD 05/26/2024 4:57 PM Remote Interrogation: 05/20/2024 Pertinent Findings: Device function within normal limits. No events or therapy delivered. See below for details. Nanette Aldridge MD Cardiac Electrophysiology Nanette Aldridge MD PROCEDURE/MINOR SURG ICAL ORDERABLES * CARDIAC PROCEDURE ORDER (05/20/2024) Narrative 05/20/2024 Ordered by an unspecified provider. Scanned Document CARDIAC SERVICES ORD ERABLES * BONE DENSITY AXIAL SKELETON(1OR MORE SITES)[id number] (06/17/2022 1:22 PM STRING TOP SEALER) Anatomical Region Laterality Modality Other 06/20/2022 5:28 PM STRING TOP SEALER Narrative 06/20/2022 5:29 PM STRING TOP SEALER PROCEDURE: DEXA BONE DENSITY AXIAL SKELETON, DATE/TIME OF EXAM: 06/17/2022 1:23 PM, LOCATION [facility] INDICATION: M15.9: Primary osteoarthritis involving multiple [...] SKELETON, DATE/TIME OF EXAM:06/17/2022 1:23 PM, LOCATION [facility] INDICATION: M15.9: Primary osteoarthritis involving multiple [...] DO on 06/20/2022 5:29 PM Kristen Graf CARE TRANSITION MANAGER-ORGAN PIPE FINISHER DEXA ORDERABLES from Last 3 Months or Most Recently Relevant to Health Maintenance Advance Directives * Full Code (Latest Code Status on File) Date Activated Date Inactivated Comments 07/03/2021 6:20 PM 07/04/2021 5:26 PM Care Teams Open Hearth Melter Relationship Specialty Start Date End Date Kristen Graf APRN-ORGAN PIPE FINISHER [address] [phone] PCP - General 05/24/21
--- OUTSIDE RECORDS SUMMARY | 2024-07-26 11:24 | XMS_ITS | Clinical Summary ---
Author Organization [facility] Address [address] [facility] [place] [address] Phone Care Team Providers Care Farm Machinery Mechanic Name Role Phone Minh Thornton MD Primary Care Provider [phone] Allergies No known active allergies Medications CALCIUM CARBONATE (CALCIUM 500 ORAL) Take by mouth. Activ e MULTIVITAMINS WITH FLUORIDE (MULTI-VITAMIN ORAL) Take by mouth. Activ e clobetasol (TEMOVATE) 0.05 % Lotion Apply to affected area. Active XIIDRA 5 % Dropperette 8 Active XARELTO 20 mg Tablet 8 Active vit C/E/Zn/service technician copier/lut/z ea/bio/saf (RETAINE VISION ORAL) Take by mouth. [...] on file Legal Sex Female 3:34 AM POWER HAIR CLIPPER Gender Identity Not on file Sexual Orientation Not on file Occupation Industry Job Start Date Job End Date Not on file Not on file Not on file Not on file Last Filed Vital Signs Vital Sign Reading Time Taken Comments Blood Pressure 122/78 03/19/2024 10:45 AM POWER HAIR CLIPPER Pulse - - Temperature - - Respiratory Rate - - Oxygen Saturation - - Inhaled Oxygen Concentration - - Weight 73 kg (161 lb) 03/19/2024 10:45 AM POWER HAIR CLIPPER Height 167.6 cm (5' 6 ) 03/19/2024 10:45 AM POWER HAIR CLIPPER Body Mass Index 25.99 03/19/2024 10:45 AM POWER HAIR CLIPPER Plan of Treatment Health Maintenance Due Date [...] [employer] P[employer] Care Teams Farm Machinery Mechanic Relationship Specialty Start Date End Date Minh Thornton MD PCP - General Internal Medicine 01/01/15
--- OUTSIDE RECORDS SUMMARY | 2024-07-26 11:24 | XMS_ITS | Continuity of Care Document ---
Author Organization [facility] Address [address] [place] [address] Phone Care Team Providers Care Mobile Ui Designer Name Role Phone Conversion MD, Doctor Unavailable Unavailabl e Advance Directives Directive Yes / No Effective Date File Name No Information Encounters Encounter Description Practice Location Reason(s) For Visit Diagnoses Date Provider Providers Copied on Encounter [facility] [address], [place], [place], [address] , tel: [phone] Conversion Department No Information 7201 [address] Conversion Doctor. [address] [place] [address], [address], . [facility] [address], [place], [place], [address] , tel: [phone] [facility] GENERAL OSTEOARTHROSIS HYPERLIPIDEMIA NEC/NOSSCREEN MAL NEOP-RECTUM September- 0-200 7 Ramila Moss. [facility] [address], [place], [place], [id number], . tel: [phone] [facility] [address], [place], [place], [address] , tel: [phone] Administration CHEST PAIN NECPURE HYPERCHOLESTER OLEM Dec-2 9-200 4 Ramila Moss. [address], [address], [place], [place], [address], [place]. tel: [phone] [facility] [address], [place], [place], [address] , tel: [phone] [facility] CHEST PAIN NOS Dec-2 0-200 4 Ramila Moss. [address], [address], [place], [place], [address], [place]. tel: [phone] [facility] [address], [place], [place], [address] , [place] tel: [phone] [facility] SCREEN-DIABETE S MELLITUSSYMPT FEM CLIMACT STATEASCVD Sep-2 3-200 3 Ramila Moss. [address], [address], [place], [place], [address], [place]. tel: [phone] [facility], [address], [place], [place], [address] , [place] tel: [phone] [facility] ACUTE BRONCHITIS Sep-1 2-200 3 Ramila Moss. [address], [address], [place], [place], [address], [place]. tel: [phone] [facility] [address], [place], [place], [address] , [place] tel: [phone] [facility] BACKACHE NOS Mar- 8-200 1 Ramila Moss. [facility] [address], [place], [place], [address], [place]. tel: [phone] [facility] [address], [place], [place], [address] , [place] tel: [phone] [facility] SCREEN MAL NEOP OTH SITE 6-200 0 Ramila Moss. [address], [place], [place], [address], [place]. tel: [phone] [facility] [address], [place], [place], [address] , [place] tel: [phone] [facility] PTOSIS OF EYELID NOSABDMNAL PAIN GENERALIZED September- 2-200 0 Ramila Moss. [address], [place], [place], [address], [place]. tel: [phone] [facility], [address], [place], [place], [address] , [place] tel: [phone] [facility] GENERAL MEDICAL EXAM NOSPALPITATION S 1-199 9 Ramila Moss. [address], [place], [place], [address], [place]. tel: [phone] Family History Family Member Type Diagnosis Age [...]
--- OUTSIDE RECORDS SUMMARY | 2024-07-26 11:24 | XMS_ITS | Encounter Summary ---
Author Organization [facility] Health Address [address] [facility] [place] [address] Care Team Providers Care Sales Financial Analyst Name Role Phone Minh Thornton MD Primary Care Provider [phone] Kristen Graf [facility] Primary Care Provider Tracie Pritchett MD Primary Care Provider [phone] Kristen Graf APRN-RADIO DESPATCHER Primary Care Provider Encounter Details Date Type Department Care Team (Late st Contact Info) Description 03/10/2020 Telephone [facility] [address] [place] [address] Kristen Graf MARKETING WRITER-RADIO DESPATCHER [address] [phone] Social History Tobacco Use Types Packs/Day Years [...] at your convenience. Patient Call Back number: [phone] documented in this encounter Plan of Treatment Upcoming Encounters Date Type Department Care Team (Late st Contact Info) Description 08/02/2024 9:30 AM CDT Office Visit [facility] - Geriatrics [address] [facility], [place] [address] Kristen Graf, MARKETING WRITER-[address] [address] 08/20/2024 1:10 AM CDT Clinical Support [facility] - Cardiology [address] [place] [phone] 10/10/2024 10:20 AM CDT Office Visit [facility] - Cardiology [address] [phone] Bharathi Higuera MD [facility] [address] [address] 11/19/2024 1:10 AM CDT Clinical Support [facility] - Cardiology [address] [place], [place] [address] [place] [address] 01/24/2025 10:30 AM CDT Office Visit [facility] [address] [facility] [place] [address] Jack Milian MD [address] [facility] 2L DIV OF PULM/[place] [address] documented as of this encounter Visit Diagnoses Not on filedocumented in this encounter Care Teams Sales Financial Analyst Relationship Specialty Start Date End Date Minh Thornton MD [address] [place] [address] 2 [place] [address] PCP - General 03/02/20 04/26/20 Kristen Graf, MARKETING WRITER-RADIO DESPATCHER [address] [place] [address] 2 [place] [address] PCP - General 04/27/20 05/19/21 Tracie Pritchett MD [address] [facility] [address] [place] [address] PCP - General Internal Medicine Geriatric Medicine 05/20/21 05/23/21 Kristen Graf, MARKETING WRITER-RADIO DESPATCHER [address] [facility] [address] [place] [address] PCP - General 05/24/21 documented as of this encounter
--- OUTSIDE RECORDS SUMMARY | 2024-07-26 11:24 | XMS_ITS | Encounter Summary ---
Author Organization [facility] Address [address] [facility] [place] [address] Care Team Providers Care Stained Glass Installer Name Role Phone Kristen Graf APRNPURNIMA Primary Care Provider Tracie Pritchett MD Primary Care Provider [phone] Kristen [facility] Primary Care Provider Encounter Details Date Type Department Care Team (Late st Contact Info) Description 10/30/2020 Telephone [facility] [address] [place] [address] Ubaldo Salgado MD [address] [place] [address] Social History Tobacco Use Types Packs/Day Years [...] Description 08/02/2024 9:30 AM CDT [facility] [address] [place] [phone] Kristen Graf, LAPIDARIST-IMPROVEMENT RN [address] [place] [phone] 08/20/2024 1:10 AM CDT Clinical Support [facility] - Cardiology [address] [address] 10/10/2024 10:20 AM CDT Office Visit [facility] - Cardiology [address] [phone] Bharathi Higuera MD [facility] [address] [address] 11/19/2024 1:10 AM CDT Clinical Support [facility] - Cardiology [address] [address] 01/24/2025 10:30 AM CDT Office Visit [facility] - Pulmonology [address] [place] [phone] Jack Milian MD [address] [place] [address] 2[address] DIV OF PULM/[place] [address] documented as of this encounter Visit Diagnoses Not on filedocumented in this encounter Care Teams Stained Glass Installer Relationship Specialty Start Date End Date Kristen Graf APRN-IMPROVEMENT RN PCP - General 04/27/20 05/19/21 Tracie Pritchett MD [address] [address] PCP - General Internal Medicine Geriatric Medicine 05/20/21 05/23/21 Kristen Graf APRN-IMPROVEMENT RN [address] [address] PCP - General 05/24/21 documented as of this encounter
--- OUTSIDE RECORDS SUMMARY | 2024-07-26 11:24 | XMS_ITS | Referral Summary ---
Author Organization [facility] Health Address [address] [facility] [place] [address] Care Team Providers Care Ceo Na Name Role Phone Kristen Graf Primary Care Provider Source Comments [facility],non-owned Affiliates and Associated Physician Practices is amultiple site organization consisting of ambulatory clinics and hospital sitesin [place], [place], [place] and [place]. This disclosure is being madepursuant to the Care Everywhere program and may not contain all information available regarding this patient. Last updated 18.[facility] Encounters Date Type Department Care Team Description 07/25/2024 Telephone [facility] - Cardiology [address] [facility] [place] [address] [place] [phone] Mani Green RN Nausea 07/22/2024 Orders Only [facility] - Geriatrics [address] [facility], [place] [address] Kristen Graf APRN-CNP Leukocytosis, unspecified type ; Hyponatremia 07/19/2024 9:38 AM MICROWAVE RADIO TECHNICIAN - 07/19/2024 11:59 PM MICROWAVE RADIO TECHNICIAN Hospital Encounter [facility] [place] [address] [place] [phone] Kristen Graf APRN-CLINIC OFFICE ASSISTANT Discharge Disposition: Home or Self Care 07/19/2024 Travel 07/19/2024 9:30 AM MICROWAVE RADIO TECHNICIAN Office Visit [facility] - Pulmonology [address] [place] [address] Jack Milian MD Abnormal CT lung screening (Primary Dx); Immunization counseling 07/10/2024 Orders Only [facility] - Geriatrics [address] [place] [phone] Kristen Graf, TUBE BUILDER AIRPLANE-CLINIC OFFICE ASSISTANT COVID-19 ; Pneumonia due to COVID-19 virus 07/10/2024 Telephone [facility] - Cardiology [address] [place] [phone] Mani Green RN Question 07/05/2024 Telephone [facility] - Internal Med [address] [place] [phone] Kristen Graf, TUBE BUILDER AIRPLANE-CLINIC OFFICE ASSISTANT General (Hospitalized) 06/27/2024 Refill [facility] Physician [facility] - Cardiology [address] [place] [address], [address] [phone] Mani Green, SEMIAUTOMATIC TAPER OPERATOR REFILL 05/21/2024 1:10 AM MICROWAVE RADIO TECHNICIAN Clinical Support [facility] - Cardiology [address] [place] [address], [address] [phone] SSS (sick sinus syndrome) (HCC) from Last [...] Active ipratropium (Atrovent) 0.03 % nasal spray [place] 2 sprays into each nostril 2 times [...] migh t be different from the original. Concrete Crusher Loader Operator - Dr Asaf Ramirez Problem Noted Date [...] multinodular Immunizations Name Administration Dates Next Due [employer] primary monoval ent 12+ yr 0.3mL Purple [...] Comments Blood Pressure 96/61 07/19/2024 9:02 AM MICROWAVE RADIO TECHNICIAN Pulse 80 07/19/2024 9:02 AM MICROWAVE RADIO TECHNICIAN Temperature 36.7 C (98.1 F) 03/28/2024 1:41 PM MICROWAVE RADIO TECHNICIAN Respiratory Rate 17 07/19/2024 9:02 AM MICROWAVE RADIO TECHNICIAN Oxygen Saturation 92% 07/19/2024 9:02 AM MICROWAVE RADIO TECHNICIAN Inhaled Oxygen Concentration - - Weight 70.7 kg (155 lb 12.8 oz) 07/19/2024 9:02 AM MICROWAVE RADIO TECHNICIAN Height 167.6 cm (5' 6 ) 07/19/2024 9:02 AM MICROWAVE RADIO TECHNICIAN Body Mass Index 25.15 07/19/2024 9:02 AM MICROWAVE RADIO TECHNICIAN Functional Status Functional Status Response Date of [...] Visit [facility] - Geriatrics [address] [place] [phone] Kristen Graf, TUBE BUILDER AIRPLANE-CLINIC OFFICE ASSISTANT [address] [place] [phone] 08/20/2024 1:10 AM CDT Clinical Support [facility] - Cardiology [facility] [address] 10/10/2024 10:20 AM CDT Office Visit [facility] - Cardiology [address] [phone] Bharathi Higuera MD [facility] [address] [address] 11/19/2024 1:10 AM CDT Clinical Support [facility] - Cardiology [address] [phone] 01/24/2025 10:30 AM CDT Office Visit [facility] - Pulmonology [address] [place] [phone] Jack Milian MD [address] [place] [address] 2L DIV OF PULM/[place] [address] Goals Goal Patient Goal Type Associated Problems [...] last dose Medical Devices Implanted Type Area Dialysis Registered Nurse Device Identifier Shelf Expiration Date Model / Serial / Lot Lead Cp Nv Pace 52cm Strd Elut Pltn Amada - [id number] Implanted:Qty: 1 on 08/16/2021 by Bharathi Higuera MD at [facility] Right: Ventricle [employer] 04/13/2023 5076-52 / [id number] / Description:RV Lead Lead Cp Nv Pace 45cm Strd Elut Pltn Amada - [id number] Implanted:Qty: 1 on 08/16/2021 by Bharathi Higuera MD at [facility] Right: Atrium [employer] 05/06/2023 5076-45 / [id number] / Description:RA lead Pacemkr [place] Wirelessly Crd - [id number] Implanted:Qty: 1 on 08/16/2021 by Bharathi Higuera MD at [facility] Right: Chest [employer] 01/09/2023 [id number] / [id number] / Description:ICD Procedures Procedure Name Priority Date/Time Associated Diagnosis Comments DIFFERENTIAL MANUAL Routine 07/19/2024 9 :46 AM MICROWAVE RADIO TECHNICIAN COVID-19 Pneumonia due to COVID-19 virus CBC W AUTO DIFFERENTIAL Routine 07/19/2024 9:46 AM MICROWAVE RADIO TECHNICIAN COVID-19 Pneumonia due to COVID-19 virus BASIC METABOLIC PANEL (CALCIUM TOTAL) Routine 07/19/2024 9:46 AM MICROWAVE RADIO TECHNICIAN COVID-19 Pneumonia due to COVID-19 virus [place] PM/ICD REMOTE TECH SERV Routine 05/26/2024 4:54 PM MICROWAVE RADIO TECHNICIAN SSS (sick sinus syndrome) (HCC) [place] PM DEVICE INTERROGATE REMOTE Routine 05/26/2024 4:54 PM MICROWAVE RADIO TECHNICIAN SSS (sick sinus syndrome) (HCC) CARDIAC PROCEDURE ORDER 05/20/2024 DEXA BONE DENSITY AXIAL SKELETON Routine 06/17/2022 1:22 PM MICROWAVE RADIO TECHNICIAN Primary osteoarthritis involving multiple joints Osteoporosis, unspecified osteoporosis type, unspecified pathological fracture presence from Last 3 Months or Most Recently Relevant to Health Maintenance Results * (ABNORMAL) DIFFERENTIAL MANUAL (07/19/2024 9:46 AM [facility]) Neutrophil % 81(H) 41 - 74 [...] Lab Venipuncture / Unknown 07/19/2024 9:46 AM MICROWAVE RADIO TECHNICIAN 07/19/2024 10:17 AM MICROWAVE RADIO TECHNICIAN Kristen Graf TUBE BUILDER AIRPLANE-CLINIC OFFICE ASSISTANT LAB - HEMATOLOG Y ORDERABLES [facility] [address] [place] [address], [facility] [phone] * (ABNORMAL) CBC W/ DIFFERENTIAL (07/19/2024 9:46 AM MICROWAVE RADIO TECHNICIAN) WBC 14.2(H) 4.0 - 10.7 x10E9/L 07/19/2024 [...] Lab Venipuncture / Unknown 07/19/2024 9:46 AM MICROWAVE RADIO TECHNICIAN 07/19/2024 10:17 AM [facility] Kristen Graf TUBE BUILDER AIRPLANE-CLINIC OFFICE ASSISTANT LAB - HEMATOLOG Y ORDERABLES [address] [address], [facility] [phone] * (ABNORMAL) BASIC METABOLIC PANEL (CALCIUM TOTAL) (07/19/2024 9:46 AM MICROWAVE RADIO TECHNICIAN) Pathologist [facility] BUN 23 7 - 26 mg/dL 07/19/2024 [...] Lab Venipuncture / Unknown 07/19/2024 9:46 AM MICROWAVE RADIO TECHNICIAN 07/19/2024 10:17 AM [facility] Kristen Graf TUBE BUILDER AIRPLANE-CLINIC OFFICE ASSISTANT LAB - CHEMISTRY ORDERABLES [facility] [address] [place] [address], [facility] [phone] * [place] PM DEVICE INTERROGATE REMOTE, [place] PM/ICD REMOTE TECH SERV (05/26/2024 4:54 PM MICROWAVE RADIO TECHNICIAN) Narrative Nanette Aldridge MD - 05/26/2024 4:54 PM MICROWAVE RADIO TECHNICIAN Nanette Aldridge MD 05/26/2024 4:57 PM Remote Interrogation: 05/20/2024 Pertinent Findings: Device function within normal limits. No events or therapy delivered. See below for details. Nanette Aldridge MD Cardiac Electrophysiology Nanette Aldridge MD PROCEDURE/MINOR SURG ICAL ORDERABLES * CARDIAC PROCEDURE ORDER (05/20/2024) Narrative 05/20/2024 Ordered by an unspecified provider. Scanned Document CARDIAC SERVICES ORD ERABLES * BONE DENSITY AXIAL SKELETON(1OR MORE SITES)[id number] (06/17/2022 1:22 PM MICROWAVE RADIO TECHNICIAN) Anatomical Region Laterality Modality Other 06/20/2022 5:28 PM MICROWAVE RADIO TECHNICIAN Narrative 06/20/2022 5:29 PM MICROWAVE RADIO TECHNICIAN PROCEDURE: DEXA BONE DENSITY AXIAL SKELETON, DATE/TIME [...] DO on 06/20/2022 5:29 PM Kristen Graf TUBE BUILDER AIRPLANE-CLINIC OFFICE ASSISTANT DEXA ORDERABLES from Last 3 Months or Most Recently Relevant to Health Maintenance Advance Directives * Full Code (Latest Code Status on File) Date Activated Date Inactivated Comments 07/03/2021 6:20 PM 07/04/2021 5:26 PM Care Teams Ceo Na Relationship Specialty Start Date End Date Kristen Graf, TUBE BUILDER AIRPLANE-CLINIC OFFICE ASSISTANT [address] [phone] PCP - General 05/24/21
--- OUTSIDE RECORDS SUMMARY | 2024-07-26 11:25 | XMS_ITS | Encounter Summary ---
Author Organization [facility] Health Address [address] [facility] [place] [address] Care Team Providers Care Massage Operator Name Role Phone Kristen Graf APRN-FAMILY SERVICES MANAGER Primary Care Provider Reason for Visit * Reason Onset Date Comments Appointment 07/29/2022 Encounter Details Date Type Department Care Team (Late st Contact Info) Description 07/29/2022 Telephone [facility] [address] [place] [address] Dominic Hines MD [address] [place], [place] [phone] Appointment Social History Tobacco Use Types Packs/Day [...] Visit [facility] - Ger[facility] [address] [facility] [place] [address] Kristen Graf, HOB MILL OPERATOR-FAMILY SERVICES MANAGER [facility] [address] 08/20/2024 1:10 AM CDT Clinical Support [facility] - Cardiology [facility] [phone] 10/10/2024 10:20 AM CDT Office Visit [facility] - Cardiology [facility] [address] [phone] Bharathi Higuera MD [facility] [address] 11/19/2024 1:10 AM CDT Clinical Support [facility] - Cardiology [address] [place] [phone] 01/24/2025 10:30 AM CDT Office Visit [facility] - Pulmonology [address] [facility] [place] [address] Jack Milian MD [address] [facility] 2L DIV OF PULM/[place] [address] documented as of this encounter Visit Diagnoses Not on filedocumented in this encounter Care Teams Massage Operator Relationship Specialty Start Date End Date Kristen Graf, HOB MILL OPERATOR-FAMILY SERVICES MANAGER [address] [facility] [address] [place] [phone] PCP - General 05/24/21 documented as of this encounter
[2024-07-26 11:40] LABS: Add Urine Microscopic? YES; Appearance Urine Clear (Clear); Bacteria Urine None Seen /hpf; Bilirubin Urine Negative (Negative); Blood Urine 2+ (Negative); Color Urine Yellow (Yellow); Glucose Urine UA Negative (Negative); Ketones Urine Negative (Negative); Leukocyte Esterase Ur Trace LEU/UL (Negative); Nitrate Urine Negative (Negative); Non Pathogenic Casts 0-2; Protein Urine Negative (Negative); RBC Urine 0-2 /hpf (0-2); Specific Grav Ur 1.005 (1.001-1.035); Squamous Epithelial Cell Urine None Seen /hpf (Few); Urobilinogen Urine 0.2 mg/dL (<2.0); WBC Urine 0-5 /hpf (0-3)
--- NOTE | 2024-07-26 11:44 | ED.GENADULT ---
HPI - General Adult General Chief complaint: Weakness Stated complaint: weakness, covid+ end of feb., pcp wants cbc Time Seen by Provider: 07/26/24 10:26 Source: patient and family Mode of arrival: ambulatory Limitations: no limitations History of Present Illness HPI narrative: 82-year-old with a history of COPD, not on any home oxygen, paroxysmal atrial fibrillation, dyslipidemia, diastolic dysfunction here with his of weakness since yesterday. Patient states that she had outpatient lab work done yesterday at [facility] in this morning her primary doctor called at 7:30 a.m. and was advised to go to the emergency room as her white count is elevated treated patient denies having any fever or chills has occasional nonproductive cough. She denies any chest pain. No history of nausea, vomiting or abdominal pain denies urinary symptoms. Related Data Home Medications ?Medication ?Instructions ?Recorded ?Confirmed ?Last Taken ?Type cholecalciferol (vitamin D3) 25 1,000 unit PO DAILY 01/13/20 07/03/24 07/02/24 History mcg (1,000 unit) capsule hydralazine 50 mg tablet 50 mg PO ONCE PRN Hypertension 03/26/21 07/03/24 Unknown History rivaroxaban 15 mg tablet (Xarelto) 15 mg PO QPM 04/27/21 07/03/24 07/02/24 History buspirone 10 mg tablet 20 mg PO 0830,1330,1930 01/11/22 07/03/24 07/03/24 History carvedilol 25 mg tablet (Coreg) 12.5 mg PO Q12H 11/08/23 07/03/24 07/02/24 History cyclosporine 0.05 % eye drops 1 drp EACH EYE Q12H 11/08/23 07/03/24 07/03/24 History (Restasis MultiDose) flecainide 150 mg tablet 150 mg PO Q12H 11/08/23 07/03/24 07/03/24 History ketoconazole 2 % topical cream 1 applic topical BID 11/08/23 07/03/24 Unknown History losartan 25 mg tablet 25 mg PO DAILY 11/08/23 07/03/24 07/03/24 History Allergies Allergy/AdvReac Type Severity Reaction Status Date / Time monosodium glutamate AdvReac Unknown Fatigued Verified 07/26/24 12:49 Review of Systems Review of Systems: All systems reviewed & are unremarkable except as noted in HPI and below Constitutional: Constitutional: Reports no additional constitutional complaints Eyes: Eyes: Reports no additional eye complaints ENT: Reports system reviewed and no additional complaints, except as documented Cardiovascular: Cardiovascular: Reports no additional cardiovascular complaints Respiratory: Respiratory: Reports as per HPI Gastrointestinal: Gastrointestinal: Reports no additional gastrointestinal complaints Musculoskeletal: Musculoskeletal: Reports no additional musculoskeletal complaints Neurologic: Reports system reviewed and no additional complaints, except as documented Psychiatric: Psychiatric: Reports no additional psychiatric complaints [facility] Past Medical History Medical History Diastolic dysfunction Transient ischemic attack At the age of 29, attributed to oral contraceptives. Chronic anticoagulation Anxiety Chronic obstructive pulmonary disease Related to significant secondhand smoke exposure. Dyslipidemia Left carotid bruit Unremarkable carotid Doppler ultrasounds on 09/09/2019. Eczema Paroxysmal atrial fibrillation Paroxysmal atrial fibrillation/atrial flutter. Maintained on flecainide, carvedilol, and rivaroxaban. Patient of Dr. Bharathi Higuera at [facility]. Hypertension Headache, migraine Arthritis Surgical History Surgical History History of permanent cardiac pacemaker placement History of cardiac radiofrequency ablation History of tubal ligation History of tonsillectomy History of appendectomy History of ventral hernia repair History of uterine suspension procedure History of eyelid surgery Family History Family History Mother Family history of kidney disease Family history of elevated blood lipids Acute myocardial infarction, Onset Age: 93 Family history of liver disease, Onset Age: 93 Family history of congestive heart failure Family history of chronic obstructive pulmonary disease Family history of renal failure, Onset Age: 93 Father Family history of migraine headaches Hypertension Grandparent Cerebrovascular accident Other Family history of cardiovascular disease Social History Social History Social History: Surrogate medical decision maker: Alcides Aaron, spouse. Code status: Full code. Smoking status: Never smoker Second hand tobacco smoke exposure: Yes Alcohol intake: never Substance use: never Substance use type: does not use Do You Feel Safe in your Home?: Yes Lack of Transportation: No Lack of Food: Never True Current Housing: I Have Housing Concerned About Future Housing: No Difficulty Paying Gas/Electric Bills: No Difficulty Paying for Meds: No Currently Unemployed: No Education: Bachelor's Degree Difficulty w/ Childcare or Family Care: No Additional living arrangements comments: . Lives with spouse in [place]. They have 2 children. 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 Spiritual care concerns: No Exam Narrative: GENERAL: Well-appearing, well-nourished, and in no acute distress. HEAD: Normocephalic, atraumatic. EYES: PERRLA and EOMI. ENT: Nares clear, no rhinorrhea or epistaxis. Mucous membranes moist. NECK: Supple. CHEST: Clear to auscultation. No respiratory distress. HEART: Regular rate and rhythm. No murmur heard. Normal peripheral pulses. ABDOMEN: Soft, nontender, nondistended, normal active bowel sounds. EXTREMITIES: Normal range of motion. No edema. SKIN: Warm, dry, no rash. NEURO: No focal deficits. Alert and oriented x3. PSYCH: Normal mood and affect. Course Course Emergency Course: Patient became hypoxic upon arrival the SpO2 was 88% was placed on 2 L she is up to 92-93% I did inform our and about her lab work, chest x-ray findings. We will admit her to the hospital. Discussed with Hospitalist will accept the pt. Vital Signs Vital signs: Vital Signs Temperature 36.6 C 07/26/24 09:49 Pulse Rate 69 07/26/24 09:49 Respiratory Rate 18 07/26/24 09:49 Blood Pressure 81/33 L 07/26/24 09:49 Pulse Oximetry 92 07/26/24 09:49 Temperature 36.6 C 07/26/24 09:49 Pulse Rate 60 07/26/24 11:42 Respiratory Rate 18 07/26/24 11:42 Blood Pressure 105/91 H 07/26/24 11:42 Pulse Oximetry 100 07/26/24 11:42 Oxygen Delivery Nasal Cannula 07/26/24 11:24 Oxygen Flow Rate 2 07/26/24 11:24 Medical Decision Making Differential Diagnosis Differential Diagnosis: Pneumonia, sepsis, UTI, dehydrated Medical Records Medical records reviewed: Yes I reviewed the external patient's medical records. Vital Signs Vital Signs: Vital Signs Temperature 36.6 C 07/26/24 09:49 Pulse Rate 69 07/26/24 09:49 Respiratory Rate 18 07/26/24 09:49 Blood Pressure 81/33 L 07/26/24 09:49 Pulse Oximetry 92 07/26/24 09:49 Temperature 36.6 C 07/26/24 09:49 Pulse Rate 60 07/26/24 11:42 Respiratory Rate 18 07/26/24 11:42 Blood Pressure 105/91 H 07/26/24 11:42 Pulse Oximetry 100 07/26/24 11:42 Oxygen Delivery Nasal Cannula 07/26/24 11:24 Oxygen Flow Rate 2 07/26/24 11:24 Lab Data Lab results reviewed: Yes I reviewed the patient's lab results. 07/26/24 10:08 07/26/24 10:08 Labs: Lab Results 07/26/24 07/26/24 07/26/24 Range/Units 09:52 09:56 10:08 WBC 11.2 H (4.5-10.0) K/mm3 RBC 2.99 L (4.2-5.4) M/mm3 Hgb 9.3 L (12.0-15.0) g/dL Hct 28.6 L (37.0-47.0) % MCV 95.7 (80-100) fl MCH 31.1 (26-34) pg MCHC 32.5 (32-36) g/dl RDW 15.7 H (11.5-14.5) % Plt Count 142 L D (150-375) k/mm3 MPV 9.6 (7.4-10.4) fl Immature Gran % (Auto) 0.5 (0-0.5) % Neut % (Auto) 75.5 H (45.5-73.1) % Lymph % (Auto) 12.5 L (18.3-44.2) % [place] % (Auto) 10.8 H (2.6-8.5) % Eos % (Auto) 0.5 (0-4.4) % Baso % (Auto) 0.2 (0.2-1.2) % Lymph # (Auto) 1.40 (0.9-3.2) K/mm3 [place] # (Auto) 1.2 H (0.1-0.6) K/mm3 Eos # (Auto) 0.1 (0-0.3) K/mm3 Baso # (Auto) 0.0 (0.0-0.1) K/mm3 Abs Immat Gran (auto) 0.06 H (0.00-0.031) K/mm3 Absolute Neuts (auto) 8.5 H (1.3-6.7) K/mm3 Absolute Nucleated RBC 0.000 (0.0-0.012) K/mm3 Nucleated RBC % 0.0 (0.0-0.2) % Sodium 136 L (137-145) mmol/L Potassium 3.3 L (3.4-5.0) mmol/L Chloride 101 (98-107) mmol/L Carbon Dioxide 29 (22-30) mmol/L Anion Gap 6 (4-12) mmol/L BUN 23 H D (7-17) mg/dL Creatinine 0.88 (0.7-1.0) mg/dL Estim Creat Clear Calc 38 ml/min Estimated GFR > 60 (59 - ) Glucose 115 H (65-110) mg/dL POC Capillary Glucose 112 H (65-105) mg/dl Calcium 8.8 (8.4-10.2) mg/dL Total Bilirubin 0.9 (0.2-1.3) mg/dL AST 18 (14-36) U/L ALT 16 (6-35) U/L Alkaline Phosphatase 106 (38-126) U/L Total Protein 6.0 L (6.3-8.2) g/dL Albumin 3.2 L (3.5-5.1) g/dL Urine Color Urine Appearance Urine pH Ur Specific [place] Urine Protein Urine Glucose (UA) Urine Ketones Ur Blood (Man) Urine Nitrate Urine Bilirubin Urine Urobilinogen Leukocyte Esterase Rfl Influenza A (RT-PCR) Pending Influenza B (RT-PCR) Pending RSV (RT-PCR) Pending SARS-CoV-2 RNA (RT-PCR) Pending 07/26/24 Range/Units 11:20 WBC (4.5-10.0) K/mm3 RBC (4.2-5.4) M/mm3 Hgb (12.0-15.0) g/dL Hct (37.0-47.0) % MCV (80-100) fl MCH (26-34) pg MCHC (32-36) g/dl RDW (11.5-14.5) % Plt Count (150-375) k/mm3 MPV (7.4-10.4) fl Immature Gran % (Auto) (0-0.5) % Neut % (Auto) (45.5-73.1) % Lymph % (Auto) (18.3-44.2) % [place] % (Auto) (2.6-8.5) % Eos % (Auto) (0-4.4) % Baso % (Auto) (0.2-1.2) % Lymph # (Auto) (0.9-3.2) K/mm3 [place] # (Auto) (0.1-0.6) K/mm3 Eos # (Auto) (0-0.3) K/mm3 Baso # (Auto) (0.0-0.1) K/mm3 Abs Immat Gran (auto) (0.00-0.031) K/mm3 Absolute Neuts (auto) (1.3-6.7) K/mm3 Absolute Nucleated RBC (0.0-0.012) K/mm3 Nucleated RBC % (0.0-0.2) % Sodium (137-145) mmol/L Potassium (3.4-5.0) mmol/L Chloride (98-107) mmol/L Carbon Dioxide (22-30) mmol/L Anion Gap (4-12) mmol/L BUN (7-17) mg/dL Creatinine (0.7-1.0) mg/dL Estim Creat Clear Calc ml/min Estimated GFR (59 - ) Glucose (65-110) mg/dL POC Capillary Glucose (65-105) mg/dl Calcium (8.4-10.2) mg/dL Total Bilirubin (0.2-1.3) mg/dL AST (14-36) U/L ALT (6-35) U/L Alkaline Phosphatase (38-126) U/L Total Protein (6.3-8.2) g/dL Albumin (3.5-5.1) g/dL Urine Color Pending Urine Appearance Pending Urine pH Pending Ur Specific [place] Pending Urine Protein Pending Urine Glucose (UA) Pending Urine Ketones Pending Ur Blood (Man) Pending Urine Nitrate Pending Urine Bilirubin Pending Urine Urobilinogen Pending Leukocyte Esterase Rfl Pending Influenza A (RT-PCR) Influenza B (RT-PCR) RSV (RT-PCR) SARS-CoV-2 RNA (RT-PCR) Imaging Data Radiologist's impression: ITS Impressions Chest X-Ray 07/26/24 10:17 IMPRESSION: 1. Diffuse lung disease with improvement from 07/07/2024, consistent with pulmonary edema versus pneumonia. 2. Small left pleural effusion. ECG Data EKG #1: ECG completion date: 07/26/24 ECG completion time: 10:05 EKG Interpretation: normal rate (70) and no acute changes Pacemaker function: normal pacer function Discharge Plan Discharge Clinical Impression: Hypoxemia Pneumonia Qualifiers: Pneumonia type: due to unspecified organism Laterality: bilateral Lung location: unspecified part of lung Qualified Code(s): J18.9 - Pneumonia, unspecified organism Patient Language: Citizen Of [place] Prescriptions: No Action cholecalciferol (vitamin D3) 25 mcg (1,000 unit) capsule 1,000 unit PO DAILY carvedilol [Coreg] 25 mg tablet 12.5 mg PO Q12H Rx Instructions: must administer with a meal/food flecainide 150 mg tablet 150 mg PO Q12H ketoconazole 2 % cream 1 applic topical BID losartan 25 mg tablet 25 mg PO DAILY Restasis MultiDose 0.05 % drops 1 drp EACH EYE Q12H famotidine 20 mg Tablet 20 mg PO Q12HR Qty: 60 0RF Xarelto 15 mg tablet 15 mg PO QPM buspirone 10 mg tablet 20 mg PO 0830,1330,1930 hydralazine 50 mg tablet 50 mg PO ONCE PRN (Reason: Hypertension) dexamethasone 2 mg Tablet 6 mg PO DAILY@0800 5 Days Qty: 15 0RF fluticasone propion-salmeterol [Advair HFA] 45-21 mcg/actuation Hfa Aerosol Inhaler 2 puff inhalation Q12HRT Qty: 12 2RF tamsulosin 0.4 mg Capsule 0.4 mg PO QAM 30 Days Qty: 30 0RF furosemide [Lasix] 20 mg tablet 20 mg PO DAILY 30 Days Qty: 30 0RF Combivent Respimat 20-100 mcg/actuation mist 1 puff inhalation Q4H PRN (Reason: shortness of breath or wheezing) Qty: 4 2RF amoxicillin-pot clavulanate 875-125 mg tablet 1 tablet PO Q12H Qty: 3 0RF Follow-up/Referrals: UNKNOWN,DOCTOR [Primary Care Provider] - Time of Disposition: 12:56
[2024-07-26] MEDS: SODIUM CHLORIDE 0.9% IV 1,000 ML 150 ML IV CONT (11:56)
--- NOTE | 2024-07-26 12:25 | P.HP_ITS ---
H&P: HPI History of Present Illness Date/Time: 07/26/24 12:25 Chief Complaint: Weakness, Cough Narrative: 83 y/o F presents here with generalized weakness and cough with PMH of diastolic dysfunction, DA, COPD, paroxysmal AFib, hypertension, headaches, and arthritis. The patient presents here from home for further evaluation of generalized weakness, cough, and nausea. She reports symptom onset 3-4 days ago. She denies shortness of breath, vomiting, diarrhea, fever, chills or body aches. She initially sought care with her PCP through [facility]. She had outpatient lab work done yesterday (07/25). She received a call back today indicating that her WBC was elevated and she should seek further evaluation in the ED. Of note, the patient had a recent admission at [facility] from 07/03/2024 to 07/08/2024. During this admission she was treated for COVID (tested positive around 06/26), pneumonia, peripheral edema (normal echo) and transient urinary retention. Initial VS at presentation: 97.9? F, HR 69, RR 18, and 1/33, and 92% on 2L NC. ED workup showed: WBC 11.2, hemoglobin 9.3 (previously 10.3 on 07/08/2024), potassium 3.3, creatinine 0.88 and GFR >60. UA, viral PCR pending. CXR showed diffuse lung disease with improvement from to 08/01/2024 consistent with pulmonary edema versus pneumonia and small left pleural effusion. Initial EKG showed electronic atrial pacemaker, right bundle branch block, left anterior fascicular block. Review of Systems Review of Systems: All systems reviewed & are unremarkable except as noted in HPI and below [facility] Past Medical History Medical History Diastolic dysfunction Transient ischemic attack At the age of 29, attributed to oral contraceptives. Chronic anticoagulation Anxiety Chronic obstructive pulmonary disease Related to significant secondhand smoke exposure. Dyslipidemia Left carotid bruit Unremarkable carotid Doppler ultrasounds on 09/09/2019. Eczema Paroxysmal atrial fibrillation Paroxysmal atrial fibrillation/atrial flutter. Maintained on flecainide, carvedilol, and rivaroxaban. Patient of Dr. Bharathi Higuera at [facility]. Hypertension Headache, migraine Arthritis Surgical History Surgical History History of permanent cardiac pacemaker placement History of cardiac radiofrequency ablation History of tubal ligation History of tonsillectomy History of appendectomy History of ventral hernia repair History of uterine suspension procedure History of eyelid surgery Family History Family History Mother Family history of kidney disease Family history of elevated blood lipids Acute myocardial infarction, Onset Age: 93 Family history of liver disease, Onset Age: 93 Family history of congestive heart failure Family history of chronic obstructive pulmonary disease Family history of renal failure, Onset Age: 93 Father Family history of migraine headaches Hypertension Grandparent Cerebrovascular accident Other Family history of cardiovascular disease Social History Social History Social History: Surrogate medical decision maker: Alcides Aaron, spouse. Code status: Full code. Smoking status: Never smoker Second hand tobacco smoke exposure: Yes Alcohol intake: never Substance use: never Substance use type: does not use Do You Feel Safe in your Home?: Yes Lack of Transportation: No Lack of Food: Never True Current Housing: I Have Housing Concerned About Future Housing: No Difficulty Paying Gas/Electric Bills: No Difficulty Paying for Meds: No Currently Unemployed: No Education: Bachelor's Degree Difficulty w/ Childcare or Family Care: No Additional living arrangements comments: . Lives with spouse in [place]. They have 2 children. 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 Spiritual care concerns: No Meds Home Medications and Allergies Home Medications ?Medication ?Instructions ?Recorded ?Confirmed ?Type cholecalciferol (vitamin D3) 25 1,000 unit PO DAILY 01/13/20 07/26/24 History mcg (1,000 unit) capsule famotidine 20 mg tablet 20 mg PO Q12HR #60 tabs 01/09/21 07/26/24 Rx hydralazine 50 mg tablet 50 mg PO ONCE PRN Hypertension 03/26/21 07/26/24 History rivaroxaban 15 mg tablet (Xarelto) 15 mg PO QPM 04/27/21 07/26/24 History buspirone 10 mg tablet 20 mg PO 0830,1330,1930 01/11/22 07/26/24 History carvedilol 25 mg tablet (Coreg) 12.5 mg PO Q12H 11/08/23 07/26/24 History cyclosporine 0.05 % eye drops 1 drp EACH EYE Q12H 11/08/23 07/26/24 History (Restasis MultiDose) flecainide 150 mg tablet 150 mg PO Q12H 11/08/23 07/26/24 History ketoconazole 2 % topical cream 1 applic topical BID 11/08/23 07/26/24 History losartan 25 mg tablet 25 mg PO DAILY 11/08/23 07/26/24 History furosemide 20 mg tablet (Lasix) 20 mg PO DAILY 30 days #30 tabs 07/08/24 07/26/24 Rx tamsulosin 0.4 mg capsule 0.4 mg PO QAM 30 days #30 caps 07/08/24 07/26/24 Rx Allergies Allergy/AdvReac Type Severity Reaction Status Date / Time monosodium glutamate AdvReac Unknown Fatigued Verified 07/26/24 12:49 Vital Signs Vital Signs - 24 hr 07/26/24 09:49 07/26/24 10:03 07/26/24 10:19 Temperature 97.9 F Pulse Rate 69 78 60 Respiratory Rate 18 21 H 20 Blood Pressure 81/33 L 98/51 L Pulse Oximetry 92 89 L Oxygen Delivery Oxygen Flow Rate 07/26/24 10:20 07/26/24 10:30 07/26/24 10:31 Temperature Pulse Rate 63 63 60 Respiratory Rate 19 18 17 Blood Pressure 83/45 L Pulse Oximetry 88 L 87 L 99 Oxygen Delivery Oxygen Flow Rate 07/26/24 10:32 07/26/24 11:24 07/26/24 11:26 Temperature Pulse Rate 60 63 Respiratory Rate 26 H 20 Blood Pressure 91/51 L 100/55 L Pulse Oximetry 94 98 100 Oxygen Delivery Nasal Cannula Oxygen Flow Rate 2 07/26/24 11:42 Temperature Pulse Rate 60 Respiratory Rate 18 Blood Pressure 105/91 H Pulse Oximetry 100 Oxygen Delivery Oxygen Flow Rate Exam Const: General: comfortable and no acute distress Other: , female, nontoxic appearance HENMT: Face/Nose/Sinus: Normal nares present Mouth: Yes moist mucous membranes Other: Nasal cannula in place, tolerating well Eyes: General: appearance normal, both eyes and all related structures Sclera: sclerae normal Pupils: Equal, round and reactive pupils present EOM: EOMs intact bilaterally Resp: Effort & Inspection: normal respiratory effort Other: Mid and lower lung zones bilaterally with crackles. No wheezing. Cardio: Rate: regular rate Rhythm: regular rhythm Other: S1-S2 present without murmur, rub, ectopy GI: Other: Abdomen soft, nondistended, nontender. Skin: General skin exam: normal color and no rashes or lesions noted Wounds: no wounds Neuro: Speech: normal speech Motor exam (neuro): 5/5 motor strength present throughout Sensory Exam: normal sensation Other: A&O x4 Extrem: General: normal to inspection Psych: Mental Status: mental status grossly normal Affect: normal affect Other: Good insight and judgment, pleasant H&P: Results Labs Labs: Short CBC 07/26/24 Range/Units 10:08 WBC 11.2 H (4.5-10.0) K/mm3 Hgb 9.3 L (12.0-15.0) g/dL Hct 28.6 L (37.0-47.0) % Plt Count 142 L D (150-375) k/mm3 BMP 07/26/24 10:08 Sodium 136 L Potassium 3.3 L Chloride 101 Carbon Dioxide 29 BUN 23 H D Creatinine 0.88 Glucose 115 H Calcium 8.8 Liver Function 07/26/24 Range/Units 10:08 Total Bilirubin 0.9 (0.2-1.3) mg/dL AST 18 (14-36) U/L ALT 16 (6-35) U/L Alkaline Phosphatase 106 (38-126) U/L Albumin 3.2 L (3.5-5.1) g/dL Assessment and Plan Assessment and plan (1) Pneumonia: Qualifiers: Laterality: bilateral Lung location: unspecified part of lung Pneumonia type: due to unspecified organism Qualified Code(s): J18.9 - Pneumonia, unspecified organism Code(s): J18.9 - Pneumonia, unspecified organism Status: Acute Assessment and Plan: - did not meet SIRS criteria, however BP low. Lactic 1.1. Blood cultures obtained on 07/26, follow. - CXR: 1. Diffuse lung disease with improvement from 07/07/2024, consistent with pulmonary edema versus pneumonia. 2. Small left pleural effusion. - complicating factors and risk factors: recent treatment for pneumonia in June of 2024, COPD - started on HAP tx: cefepime and azithromycin on 07/26 - MRSA PCR negative on 07/04/2024 - Viral PCR pending - supportive care - sputum culture - currently requiring supplemental O2: 2L NC (2) COPD (chronic obstructive pulmonary disease): Qualifiers: COPD type: unspecified COPD Qualified Code(s): J44.9 - Chronic obstructive pulmonary disease, unspecified Code(s): J44.9 - Chronic obstructive pulmonary disease, unspecified Status: Chronic Assessment and Plan: - DuoNebs PRN - prednisone 40 mg PO x5 days - continue home maintenance inhalers (3) Hypertension: Qualifiers: Hypertension type: unspecified Qualified Code(s): I10 - Essential (primary) hypertension Code(s): I10 - Essential (primary) hypertension Status: Chronic Assessment and Plan: - chronic, currently 105/91 - arrived soft at 81/33 and systolic now running in the 80s to 100s. Hold Coreg, hydralazine, losartan. Will continue flecainide. - monitor Plan Diet: heart healthy GI Prophylaxis: Not currently indicated DVT Prophylaxis: Xarelto Lines: Peripheral Code Status: Full code Quality VTE Prophylaxis VTE prophylaxis: pharmacologic ordered Hospitalist [facility] Advance Care Plan I have confirmed that the patient's Advanced Care Plan is present, code status is documented, or surrogate decision maker is listed in patient medical record.: Yes Medication Reconciliation I have utilized all available resources to obtain, update and review the patients current medications (includes all prescriptions, OTC, herbals, cannabis, and nutritional supplements).: Yes
[2024-07-26 12:49] LABS: Lactic Acid Reflex 1.1 mmol/L (0.7-2.0)
[2024-07-26] MEDS: POTASSIUM CHLORIDE 20 MEQ ER TABLET 40 MEQ PO ×2 (12:51→18:39)
[2024-07-26] MEDS: CEFEPIME 2 GM/NS 50 ML 2 GM/50 ML BAG IVPB ×2 (12:52→21:05)
[2024-07-26 12:55] LABS: Influenza A QL RT-PCR Negative (Negative); Influenza B QL RT-PCR Negative (Negative); RSV RNA, RT-PCR Negative (Negative); SARS-CoV-2 RNA PCR Negative (Negative)
[2024-07-26] MEDS: AZITHROMYCIN 500 MG/NS 250 ML 500 MG/250 ML BAG 250 MG IVPB (13:48)
[2024-07-26] MEDS: SODIUM CHLORIDE 0.9% IV 1,000 ML 75 ML IV CONT (13:50)
[2024-07-26] MEDS: IPRATROPIUM 0.5 MG/ALBUTEROL SULFATE 2.5 MG AMPUL.NEB 3 ML INHALATION ×2 (13:57→20:47)
--- NOTE | 2024-07-26 14:13 | PC.NURSE ---
EDP aware of pt BP at this time. EDP gave verbal order for a 500mL bolus of sodium chloride
[2024-07-26] MEDS: SODIUM CHLORIDE 0.9% IV 500 ML 999 ML (14:24)
--- NOTE | 2024-07-26 15:37 | ADMGEN ---
This patient, Beth Aaron, was admitted to [facility] Surg Room 332-01. Patient/family oriented to hospital policies and general routines including ID bracelet, bed and alarms, visiting hours, pain management, procedures, bathroom and other care routines, personal items, smoking policy, room service/diet, and visiting hours. Information on how to activate the Rapid Response Team has been discussed. Patient/Family are encouraged to report perceived risks to care and to ask questions if they do not understand what they are told or what they should do.
[2024-07-26 17:25] LABS: Anion Gap 9 mmol/L (4-12); Blood Urea Nitrogen 21 mg/dL (7-17); Calcium 8.2 mg/dL (8.4-10.2); Carbon Dioxide 26 mmol/L (22-30); Chloride 104 mmol/L (98-107); Estimated CRCL calculation 37 ml/min; Estimated Glomerular Filt Rate 57; Glucose 122 mg/dL (65-110); Potassium 3.3 mmol/L (3.4-5.0); Sodium 139 mmol/L (137-145)
[2024-07-26] MEDS: BENZONATATE 100 MG CAPSULE PO (18:39)
[2024-07-26] MEDS: SODIUM CHLORIDE 0.9% IV 1,000 ML 125 ML IV CONT (20:17)
[2024-07-26] MEDS: guaiFENesin 12 HR 600 MG TABCR PO (20:27)
[2024-07-26] MEDS: cycloSPORINE 0.4 ML OPHTH SOLUTION 1 DROP EACH EYE (23:21)
[2024-07-26] MEDS: carvediloL 12.5 MG TABLET PO (23:21)
[2024-07-26] MEDS: FLECAINIDE ACETATE 100 MG TABLET PO (23:24)
[2024-07-26] MEDS: FLECAINIDE ACETATE 50 MG TABLET PO (23:24)
[2024-07-27] VITALS (16 sets, daily range): BP systolic 92–127; BP diastolic 40–59; PULSE 63–81; RESP 15–18; TEMP 36.5–36.8; O2SAT 91–95
[2024-07-27] MEDS: IPRATROPIUM 0.5 MG/ALBUTEROL SULFATE 2.5 MG AMPUL.NEB 3 ML INHALATION ×4 (02:57→20:48)
[2024-07-27] MEDS: SODIUM CHLORIDE 0.9% IV 1,000 ML 125 ML IV CONT (04:20)
[2024-07-27 06:20] LABS: Basophils Percent Auto 0.2 % (0.2-1.2); Eosinophils Absolute Auto 0.1 K/mm3 (0-0.3); Eosinophils Percent Auto 0.8 % (0-4.4); Hematocrit 24.8 % (37.0-47.0); Immature Granulocyte Absolute 0.08 K/mm3 (0.00-0.031); Immature Granulocyte Percent A 0.8 % (0-0.5); Lymphocytes Absolute Auto 1.48 K/mm3 (0.9-3.2); Lymphocytes Percent Auto 14.9 % (18.3-44.2); Mean Corpuscular HGB Conc 32.3 g/dl (32-36); Mean Corpuscular Hemoglobin 31.7 pg (26-34); Mean Corpuscular Volume 98.4 fl (80-100); Mean Platelet Volume 9.2 fl (7.4-10.4); Monocytes Absolute Auto 1.1 K/mm3 (0.1-0.6); Monocytes Percent Auto 11.3 % (2.6-8.5); Neutrophils Absolute Auto 7.1 K/mm3 (1.3-6.7); Platelet Count Result 123 k/mm3 (150-375); Red Blood Count 2.52 M/mm3 (4.2-5.4); Red Cell Distribution Width 15.9 % (11.5-14.5); White Blood Count 9.9 K/mm3 (4.5-10.0)
[2024-07-27 06:43] LABS: Alanine Aminotransferase 18 U/L (6-35); Albumin Level 2.6 g/dL (3.5-5.1); Alkaline Phosphatase 99 U/L (38-126); Anion Gap 3 mmol/L (4-12); Aspartate Amino Transferase 24 U/L (14-36); Bilirubin,Total 0.6 mg/dL (0.2-1.3); Blood Urea Nitrogen 18 mg/dL (7-17); Calcium 7.9 mg/dL (8.4-10.2); Carbon Dioxide 25 mmol/L (22-30); Chloride 109 mmol/L (98-107); Estimated CRCL calculation 49 ml/min; Estimated Glomerular Filt Rate > 60; Glucose 106 mg/dL (65-110); Potassium 3.9 mmol/L (3.4-5.0); Sodium 137 mmol/L (137-145)
[2024-07-27] MEDS: CEFEPIME 2 GM/NS 50 ML 2 GM/50 ML BAG IVPB ×2 (08:53→21:14)
[2024-07-27] MEDS: TAMSULOSIN HCL 0.4 MG CAPSULE PO (08:53)
[2024-07-27] MEDS: FUROSEMIDE 20 MG TABLET PO (08:54)
[2024-07-27] MEDS: guaiFENesin 12 HR 600 MG TABCR PO ×2 (08:54→21:13)
[2024-07-27] MEDS: FAMOTIDINE 20 MG TABLET PO ×2 (08:54→21:13)
[2024-07-27] MEDS: FLECAINIDE ACETATE 100 MG TABLET PO ×2 (08:55→21:13)
[2024-07-27] MEDS: FLECAINIDE ACETATE 50 MG TABLET PO ×2 (08:55→21:11)
[2024-07-27] MEDS: CHOLECALCIFEROL 1,000 UNITS TABLET 1000 UNITS PO (08:55)
[2024-07-27] MEDS: cycloSPORINE 0.4 ML OPHTH SOLUTION 1 DROP EACH EYE ×2 (08:56→21:14)
[2024-07-27] MEDS: BENZONATATE 100 MG CAPSULE PO (09:01)
[2024-07-27] MEDS: busPIRone HCL 10 MG TABLET 20 MG PO ×3 (09:01→21:13)
--- NOTE | 2024-07-27 09:05 | P.PNIM_ITS ---
Progress Note: A&P Assessment and Plan (1) Acute respiratory failure with hypoxia: Code(s): J96.01 - Acute respiratory failure with hypoxia Status: Acute Assessment and Plan: * Patient dropped to 85% on room air per chart * Currently on 2L NC * Wean supplemental oxygen as tolerated * Treat Pneumonia/COPD (2) Pneumonia: Qualifiers: Laterality: bilateral Lung location: unspecified part of lung Pneumonia type: due to unspecified organism Qualified Code(s): J18.9 - Pneumonia, unspecified organism Code(s): J18.9 - Pneumonia, unspecified organism Status: Acute Assessment and Plan: * did not meet SIRS criteria, however BP low. Lactic 1.1. Blood cultures obtained on 07/26, follow. * CXR: 1. Diffuse lung disease with improvement from 07/07/2024, consistent with pulmonary edema versus pneumonia. 2. Small left pleural effusion. * complicating factors and risk factors: recent treatment for pneumonia in June of 2024, COPD * started on HAP tx: cefepime and azithromycin on 07/26 * MRSA PCR negative on 07/04/2024 * Viral PCR pending * supportive care * sputum culture pending/previous sputum no growth * blood cultures NGTD (3) COPD (chronic obstructive pulmonary disease): Qualifiers: COPD type: unspecified COPD Qualified Code(s): J44.9 - Chronic obstructive pulmonary disease, unspecified Code(s): J44.9 - Chronic obstructive pulmonary disease, unspecified Status: Chronic Assessment and Plan: * Rosette PRN * P.o. azithromycin * prednisone 40 mg PO x5 days * continue home maintenance inhalers * Wean oxygen as tolerated (4) Hypertension: Qualifiers: Hypertension type: unspecified Qualified Code(s): I10 - Essential (primary) hypertension Code(s): I10 - Essential (primary) hypertension Status: Chronic Assessment and Plan: * chronic, currently 105/91 * arrived soft at 81/33 and systolic now running in the 80s to 100s. Hold Coreg, hydralazine, losartan. Will continue flecainide. * monitor (5) Anemia: Code(s): D64.9 - Anemia, unspecified Status: Acute Assessment and Plan: * Hgb 9.3 POA 8.0 now * received IV fluids throughout the night could be diluted * no overt evidence GIB * iron panel * started ferrous sulfate * Transfuse PRBC if Hgb <7.0 Plan Code status: Full code per patient DVT prophylaxis: Xarelto Stress ulcer prophylaxis: Protonix 40 daily PT/OT notes: Pending Disposition: Patient admitted to the medical for further treatment of acute respiratory failure with hypoxia secondary to pneumonia and COPD exacerbation. Will continue to wean oxygen PT/OT pending for any further discharge needs. Time Spent With Patient Time with patient: 15 - 25 minutes Subjective Date/time seen: 03/15/25 09:05 Interval history: patient was 83-year-old female admitted for treatment of pneumonia and COPD exacerbation 07/27/24: Assumed care Patient still reporting shortness of breath and generalized weakness currently on 2 L nasal cannula. patient denied any chest pain nausea or vomiting but did endorse productive cough. Review of Systems Review of Systems: All systems reviewed & are unremarkable except as noted in HPI and below Exam Const: General: comfortable and no acute distress HENMT: Mouth: Yes moist mucous membranes Eyes: General: appearance normal, both eyes and all related structures Neck: Neck: supple and no JVD Resp: Auscultation: diminished lung sounds bilateral in the lower lung cho Cardio: Rate: regular rate Rhythm: regular rhythm GI: GI Palp: Yes Soft to palpation Auscultation: normal bowel sounds Skin: General skin exam: normal color and no rashes or lesions noted Wounds: no wounds Neuro: Speech: normal speech Extrem: General: normal to inspection Psych: Mental Status: mental status grossly normal Objective Data Vital Signs Vital Signs: Vital Signs - 24 hr 07/26/24 09:49 07/26/24 10:03 07/26/24 10:19 Temperature 97.9 F Pulse Rate 69 78 60 Respiratory Rate 18 21 H 20 Blood Pressure 81/33 L 98/51 L Pulse Oximetry 92 89 L Oxygen Delivery Oxygen Flow Rate 07/26/24 10:20 07/26/24 10:30 07/26/24 10:31 Temperature Pulse Rate 63 63 60 Respiratory Rate 19 18 17 Blood Pressure 83/45 L Pulse Oximetry 88 L 87 L 99 Oxygen Delivery Oxygen Flow Rate 07/26/24 10:32 07/26/24 11:24 07/26/24 11:26 Temperature Pulse Rate 60 63 Respiratory Rate 26 H 20 Blood Pressure 91/51 L 100/55 L Pulse Oximetry 94 98 100 Oxygen Delivery Nasal Cannula Oxygen Flow Rate 2 07/26/24 11:42 07/26/24 12:31 07/26/24 13:51 Temperature 97.5 F L Pulse Rate 60 60 65 Respiratory Rate 18 17 20 Blood Pressure 105/91 H 112/58 L 133/56 L Pulse Oximetry 100 100 92 Oxygen Delivery Oxygen Flow Rate 07/26/24 14:00 07/26/24 14:00 07/26/24 14:13 Temperature Pulse Rate 62 62 Respiratory Rate 18 26 H Blood Pressure 81/39 L Pulse Oximetry 97 98 Oxygen Delivery Nasal Cannula Oxygen Flow Rate 1 07/26/24 14:15 07/26/24 14:16 07/26/24 14:17 Temperature Pulse Rate 60 60 65 Respiratory Rate 22 H 17 18 Blood Pressure 78/37 L 83/44 L 94/45 L Pulse Oximetry 92 100 100 Oxygen Delivery Oxygen Flow Rate 07/26/24 14:37 07/26/24 14:55 07/26/24 15:07 Temperature Pulse Rate 63 61 60 Respiratory Rate 19 Blood Pressure 90/42 L 94/50 L 95/53 L Pulse Oximetry 98 99 97 Oxygen Delivery Oxygen Flow Rate 07/26/24 16:30 07/26/24 20:17 07/26/24 20:40 Temperature 99.1 F Pulse Rate 68 68 Respiratory Rate 16 18 Blood Pressure 104/93 H Pulse Oximetry 95 96 96 Oxygen Delivery Nasal Cannula Nasal Cannula Oxygen Flow Rate 2 1 07/26/24 20:47 07/26/24 20:55 07/26/24 20:55 Temperature Pulse Rate 62 64 Respiratory Rate 18 18 Blood Pressure Pulse Oximetry 96 Oxygen Delivery Nasal Cannula Oxygen Flow Rate 1.5 07/26/24 23:21 07/26/24 23:24 07/26/24 23:24 Temperature Pulse Rate 68 68 68 Respiratory Rate Blood Pressure Pulse Oximetry Oxygen Delivery Oxygen Flow Rate 07/27/24 02:58 07/27/24 03:05 07/27/24 04:26 Temperature 98.3 F Pulse Rate 68 68 76 Respiratory Rate 18 18 16 Blood Pressure 122/50 L Pulse Oximetry 92 Oxygen Delivery Oxygen Flow Rate 07/27/24 08:55 Temperature Pulse Rate 72 Respiratory Rate Blood Pressure Pulse Oximetry Oxygen Delivery Oxygen Flow Rate Intake/Output Intake/Output: Intake & Output 07/24/24 07/25/24 07/26/24 07/27/24 23:59 23:59 23:59 23:59 Intake Total 2478.7 1550 Output Total 1 Balance 2478.7 1549 Meds/Results Medications: Active Medications Generic Name Dose Route Start Last Admin Trade Name Freq PRN Reason Stop Dose Admin Acetaminophen 650 mg 07/26/24 12:56 Acetaminophen 325 Mg Tablet PO Q4H PRN Mild Pain (1-3) or Fever Albuterol/Ipratropium 3 ml 07/26/24 12:37 Ipratropium 0.5 Mg/Albuterol Sulfate 2.5 Mg Ampul.Neb 3 Ml INHALATION Q6HRT PRN Shortness Of Breath Or Wheezing Albuterol/Ipratropium 3 ml 07/26/24 14:00 07/27/24 02:57 Ipratropium 0.5 Mg/Albuterol Sulfate 2.5 Mg Ampul.Neb 3 Ml INHALATION 3 ml Q6HRT MARTIN Administration Benzonatate 100 mg 07/26/24 12:37 07/27/24 09:01 Benzonatate 100 Mg Capsule PO 100 mg TID PRN Administration Cough Buspirone HCl 20 mg 07/27/24 08:30 07/27/24 09:01 Buspirone Hcl 10 Mg Tablet PO 20 mg 0830,1330,1930 MARTIN Administration Carvedilol 12.5 mg 07/26/24 22:50 07/26/24 23:21 Carvedilol 12.5 Mg Tablet PO 12.5 mg Q12HR MARTIN Administration Cyclosporine 1 drop 07/26/24 22:50 07/27/24 08:56 Cyclosporine 0.4 Ml Ophth Solution EACH EYE 1 drop Q12HR MARTIN Administration Famotidine 20 mg 07/27/24 09:00 07/27/24 08:54 Famotidine 20 Mg Tablet PO 20 mg Q12HR MARTIN Administration Flecainide Acetate 50 mg 07/26/24 23:15 07/27/24 08:55 Flecainide Acetate 50 Mg Tablet PO 50 mg Q12HR MARTIN Administration Flecainide Acetate 100 mg 07/26/24 23:15 07/27/24 08:55 Flecainide Acetate 100 Mg Tablet PO 100 mg Q12HR MARTIN Administration Furosemide 20 mg 07/27/24 09:00 07/27/24 08:54 Furosemide 20 Mg Tablet PO 20 mg DAILY MARTIN Administration Guaifenesin 600 mg 07/26/24 21:00 07/27/24 08:54 Guaifenesin 12 Hr 600 Mg Tabcr PO 600 mg Q12HR MARTIN Administration Hydralazine HCl 50 mg 07/26/24 22:50 Hydralazine Hcl 50 Mg Tablet PO ONCE PRN Hypertension Cefepime HCl 2 gm in 50 mls @ 100 mls/hr 07/26/24 22:00 07/27/24 08:53 Maxipime 2 Gm/Ns 50 Ml IVPB 100 mls/hr Q12HR MARTIN Administration Azithromycin 500 mg in 250 mls @ 250 mls/hr 07/26/24 13:00 07/26/24 14:48 Zithromax IVPB Infused Q24H MARTIN Infusion Losartan Potassium 25 mg 07/27/24 09:00 Losartan Potassium 25 Mg Tablet PO DAILY [facility] Miconazole Nitrate 1 applic 07/27/24 09:00 07/27/24 08:57 Miconazole Nitrate 2% Cream 30 Gm Tube TOPICAL Not Given BID [facility] Ondansetron HCl 4 mg 07/26/24 12:56 Ondansetron Inj 4 Mg/2 Ml Vial IV PUSH Q4H PRN Nausea Rivaroxaban 15 mg 07/27/24 18:00 Rivaroxaban 15 Mg Tablet PO QPM [facility] Tamsulosin HCl 0.4 mg 07/27/24 09:00 07/27/24 08:53 Tamsulosin Hcl 0.4 Mg Capsule PO 0.4 mg QAM [facility] Administration Vitamin D 1,000 units 07/27/24 09:00 07/27/24 08:55 Cholecalciferol 1,000 Units Tablet PO 1,000 units DAILY MARTIN Administration Radiology Results: ITS Impressions Chest X-Ray 07/26/24 10:17 IMPRESSION: 1. Diffuse lung disease with improvement from 07/07/2024, consistent with pulmonary edema versus pneumonia. 2. Small left pleural effusion. Labs Labs: Laboratory Results - last 24 hr 07/26/24 07/26/24 07/26/24 09:52 09:56 10:08 WBC 11.2 H RBC 2.99 L Hgb 9.3 L Hct 28.6 L MCV 95.7 MCH 31.1 MCHC 32.5 RDW 15.7 H Plt Count 142 L D MPV 9.6 Immature Gran % (Auto) 0.5 Neut % (Auto) 75.5 H Lymph % (Auto) 12.5 L Glynn % (Auto) 10.8 H Eos % (Auto) 0.5 Baso % (Auto) 0.2 Lymph # (Auto) 1.40 Glynn # (Auto) 1.2 H Eos # (Auto) 0.1 Baso # (Auto) 0.0 Abs Immat Gran (auto) 0.06 H Absolute Neuts (auto) 8.5 H Absolute Nucleated RBC 0.000 Nucleated RBC % 0.0 Sodium 136 L Potassium 3.3 L Chloride 101 Carbon Dioxide 29 Anion Gap 6 BUN 23 H D Creatinine 0.88 Estim Creat Clear Calc 38 Estimated GFR > 60 Glucose 115 H POC Capillary Glucose 112 H Lactic Acid Calcium 8.8 Total Bilirubin 0.9 AST 18 ALT 16 Alkaline Phosphatase 106 Total Protein 6.0 L Albumin 3.2 L Urine Color Urine Appearance Urine pH Ur Specific Bowler Urine Protein Urine Glucose (UA) Urine Ketones Ur Blood (Man) Urine Nitrate Urine Bilirubin Urine Urobilinogen Leukocyte Esterase Rfl Urine RBC Urine WBC Ur Squamous Epith Cells Urine Bacteria Urine Casts Influenza A (RT-PCR) Negative Influenza B (RT-PCR) Negative RSV (RT-PCR) Negative SARS-CoV-2 RNA (RT-PCR) Negative 07/26/24 07/26/24 07/26/24 11:20 12:13 17:04 WBC RBC Hgb Hct MCV MCH MCHC RDW Plt Count MPV Immature Gran % (Auto) Neut % (Auto) Lymph % (Auto) Glynn % (Auto) Eos % (Auto) Baso % (Auto) Lymph # (Auto) Glynn # (Auto) Eos # (Auto) Baso # (Auto) Abs Immat Gran (auto) Absolute Neuts (auto) Absolute Nucleated RBC Nucleated RBC % Sodium 139 Potassium 3.3 L Chloride 104 Carbon Dioxide 26 Anion Gap 9 BUN 21 H Creatinine 0.94 Estim Creat Clear Calc 37 Estimated GFR 57 L Glucose 122 H POC Capillary Glucose Lactic Acid 1.1 Calcium 8.2 L Total Bilirubin AST ALT Alkaline Phosphatase Total Protein Albumin Urine Color Yellow Urine Appearance Clear Urine pH 6.0 Ur Specific Bowler 1.005 Urine Protein Negative Urine Glucose (UA) Negative Urine Ketones Negative Ur Blood (Man) 2+ H Urine Nitrate Negative Urine Bilirubin Negative Urine Urobilinogen 0.2 Leukocyte Esterase Rfl Trace H Urine RBC 0-2 Urine WBC 0-5 Ur Squamous Epith Cells None seen Urine Bacteria None seen Urine Casts 0-2 Influenza A (RT-PCR) Influenza B (RT-PCR) RSV (RT-PCR) SARS-CoV-2 RNA (RT-PCR) 07/27/24 06:00 WBC 9.9 RBC 2.52 L Hgb 8.0 L Hct 24.8 L MCV 98.4 MCH 31.7 MCHC 32.3 RDW 15.9 H Plt Count 123 L MPV 9.2 Immature Gran % (Auto) 0.8 H Neut % (Auto) 72.0 Lymph % (Auto) 14.9 L Glynn % (Auto) 11.3 H Eos % (Auto) 0.8 Baso % (Auto) 0.2 Lymph # (Auto) 1.48 Glynn # (Auto) 1.1 H Eos # (Auto) 0.1 Baso # (Auto) 0.0 Abs Immat Gran (auto) 0.08 H Absolute Neuts (auto) 7.1 H Absolute Nucleated RBC 0.000 Nucleated RBC % 0.0 Sodium 137 Potassium 3.9 Chloride 109 H Carbon Dioxide 25 Anion Gap 3 L BUN 18 H Creatinine 0.70 Estim Creat Clear Calc 49 Estimated GFR > 60 Glucose 106 POC Capillary Glucose Lactic Acid Calcium 7.9 L Total Bilirubin 0.6 AST 24 ALT 18 Alkaline Phosphatase 99 Total Protein 5.0 L Albumin 2.6 L Urine Color Urine Appearance Urine pH Ur Specific Bowler Urine Protein Urine Glucose (UA) Urine Ketones Ur Blood (Man) Urine Nitrate Urine Bilirubin Urine Urobilinogen Leukocyte Esterase Rfl Urine RBC Urine WBC Ur Squamous Epith Cells Urine Bacteria Urine Casts Influenza A (RT-PCR) Influenza B (RT-PCR) RSV (RT-PCR) SARS-CoV-2 RNA (RT-PCR) Quality VTE Prophylaxis VTE prophylaxis: pharmacologic ordered -Patient's previous records reviewed on admission -ER notes reviewed in detail on admission -discussed all findings and current treatment plan with patient/Family/POA -Consultations reviewed for recommendations -Patient's disposition for safe discharge discussed with correctional case records supervisor Dictation performed by [employer] direct speech recognition software, therefore noc engineer variants and typographical errors may occur. Hospitalist MIPS Advance Care Plan I have confirmed that the patient's Advanced Care Plan is present, code status is documented, or surrogate decision maker is listed in patient medical record.: Yes Medication Reconciliation I have utilized all available resources to obtain, update and review the patients current medications (includes all prescriptions, OTC, herbals, lurdes abis, and nutritional supplements).: Yes The patient is not eligible for med reconciliation; the patient is in a emergent medical situation where delaying treatment would jeopardize the patients health.: No
[2024-07-27] MEDS: ACETAMINOPHEN 325 MG TABLET 650 MG PO (11:42)
[2024-07-27] MEDS: AZITHROMYCIN 500 MG/NS 250 ML 500 MG/250 ML BAG 250 MG IVPB (13:56)
[2024-07-27] MEDS: RIVAROXABAN 15 MG TABLET PO (17:27)
[2024-07-27] MEDS: FERROUS SULFATE 325 MG TABLET DR PO (17:27)
[2024-07-28] VITALS (14 sets, daily range): BP systolic 123–152; BP diastolic 59–65; PULSE 65–75; RESP 16–18; TEMP 36.4–36.6; O2SAT 91–100
[2024-07-28] MEDS: BENZONATATE 100 MG CAPSULE PO (00:43)
[2024-07-28] MEDS: ACETAMINOPHEN 325 MG TABLET 650 MG PO (00:43)
[2024-07-28 06:03] LABS: Hematocrit 26.2 % (37.0-47.0); Hemoglobin 8.2 g/dL (12.0-15.0); Mean Corpuscular HGB Conc 31.3 g/dl (32-36); Mean Corpuscular Hemoglobin 30.8 pg (26-34); Mean Corpuscular Volume 98.5 fl (80-100); Mean Platelet Volume 9.4 fl (7.4-10.4); Platelet Count Result 148 k/mm3 (150-375); Red Blood Count 2.66 M/mm3 (4.2-5.4); Red Cell Distribution Width 15.9 % (11.5-14.5); White Blood Count 9.4 K/mm3 (4.5-10.0)
[2024-07-28 06:13] LABS: Alanine Aminotransferase 24 U/L (6-35); Albumin Level 2.7 g/dL (3.5-5.1); Alkaline Phosphatase 111 U/L (38-126); Anion Gap 5 mmol/L (4-12); Aspartate Amino Transferase 32 U/L (14-36); Bilirubin,Total 0.7 mg/dL (0.2-1.3); Blood Urea Nitrogen 17 mg/dL (7-17); Calcium 8.4 mg/dL (8.4-10.2); Carbon Dioxide 28 mmol/L (22-30); Chloride 104 mmol/L (98-107); Estimated CRCL calculation 50 ml/min; Estimated Glomerular Filt Rate > 60; Glucose 101 mg/dL (65-110); Potassium 3.6 mmol/L (3.4-5.0); Sodium 137 mmol/L (137-145)
[2024-07-28] MEDS: IPRATROPIUM 0.5 MG/ALBUTEROL SULFATE 2.5 MG AMPUL.NEB 3 ML INHALATION ×3 (08:02→20:43)
--- NOTE | 2024-07-28 08:12 | P.PNIM_ITS ---
Progress Note: A&P Assessment and Plan (1) Acute respiratory failure with hypoxia: Code(s): J96.01 - Acute respiratory failure with hypoxia Status: Acute Assessment and Plan: * Multifocal pneumonia / COPD/CHF * Patient dropped to 85% on room air per chart * Currently on 2L NC * Wean supplemental oxygen as tolerated * Treat Pneumonia/COPD (2) Pneumonia: Qualifiers: Laterality: bilateral Lung location: unspecified part of lung Pneumonia type: due to unspecified organism Qualified Code(s): J18.9 - Pneumonia, unspecified organism Code(s): J18.9 - Pneumonia, unspecified organism Status: Acute Assessment and Plan: * did not meet SIRS criteria, however BP low. Lactic 1.1. Blood cultures obtained on 07/26, follow. * CXR: 1. Diffuse lung disease with improvement from 07/07/2024, consistent with pulmonary edema versus pneumonia. 2. Small left pleural effusion. * complicating factors and risk factors: recent treatment for pneumonia in June of 2024, COPD * started on HAP tx: cefepime and azithromycin on 07/26 * MRSA PCR negative on 07/04/2024 * Viral PCR pending * supportive care * sputum culture pending/previous sputum no growth * blood cultures NGTD 07/28 * No change to current treatment continue to wean oxygen requirements * blood cultures with no growth * normal WBC today (3) Diastolic dysfunction: Code(s): I51.89 - Other ill-defined heart diseases Status: Acute Assessment and Plan: Acute on chronic diastolic heart failure * BNP 1480 * cardiology consulted * PO Lasix give IV lasix x 1 dose * monitor renal function during diuresis * previous echocardiogram results: There is moderate concentric left ventricular hypertrophy. The left ventricular ejection fraction is visually estimated to be 60-65%. * ICD present * chest x-ray: Pulmonary edema vs pneumonia * CTA pending for further evaluation * Optimize Rj inhibitors, beta-blockers, ARNI * Daily weight. * fluid restriction 1500L * elevate/Rj wrap legs if needed (4) COPD (chronic obstructive pulmonary disease): Qualifiers: COPD type: unspecified COPD Qualified Code(s): J44.9 - Chronic obstructive pulmonary disease, unspecified Code(s): J44.9 - Chronic obstructive pulmonary disease, unspecified Status: Chronic Assessment and Plan: * Rosette PRN * P.o. azithromycin * prednisone 40 mg PO x5 days * continue home maintenance inhalers * Wean oxygen as tolerated (5) Hypertension: Qualifiers: Hypertension type: unspecified Qualified Code(s): I10 - Essential (primary) hypertension Code(s): I10 - Essential (primary) hypertension Status: Chronic Assessment and Plan: * chronic, currently 105/91 * arrived soft at 81/33 and systolic now running in the 80s to 100s. Hold Coreg, hydralazine, losartan. Will continue flecainide. * monitor (6) Anemia: Code(s): D64.9 - Anemia, unspecified Status: Acute Assessment and Plan: * Hgb 9.3 POA 8.0 now * received IV fluids throughout the night could be diluted * no overt evidence GIB * iron panel * started ferrous sulfate * Transfuse PRBC if Hgb <7.0 Plan Code status: Full code per patient DVT prophylaxis: Xarelto Stress ulcer prophylaxis: Protonix 40 daily PT/OT notes: Pending Disposition: [facility] for further treatment of acute respiratory failure with hypoxia secondary to pneumonia/COPD exacerbation/ CHF exacerbation. Will continue to wean oxygen PT/OT pending for any further discharge needs. Time Spent With Patient Time with patient: 15 - 25 minutes Subjective Date/time seen: 07/28/24 08:12 Interval history: patient was 83-year-old female admitted for treatment of pneumonia and COPD exacerbation 07/28/24: Patient up in chair feeling better today but still on 3L supplemental oxygen, denies chest pain but still endorses SOB and generalized weakness. scant crackles to BLL. Review of Systems Review of Systems: All systems reviewed & are unremarkable except as noted in HPI and below Exam Const: General: comfortable and no acute distress Other: , female, nontoxic appearance HENMT: Face/Nose/Sinus: Normal nares present Mouth: Yes moist mucous membranes Other: Nasal cannula in place, tolerating well Eyes: General: appearance normal, both eyes and all related structures Sclera: sclerae normal Pupils: Equal, round and reactive pupils present EOM: EOMs intact bilaterally Neck: Neck: supple and no JVD Resp: Effort & Inspection: normal respiratory effort Auscultation: diminished lung sounds bilateral in the lower lung cho Other: Mid and lower lung zones bilaterally with crackles. No wheezing. Cardio: Rate: regular rate Rhythm: regular rhythm Other: S1-S2 present without murmur, rub, ectopy GI: Auscultation: normal bowel sounds Other: Abdomen soft, nondistended, nontender. Skin: General skin exam: normal color and no rashes or lesions noted Wound s: no wounds Neuro: Cranial nerves: Yes Equal, round and reactive pupils present Speech: normal speech Motor exam (neuro): 5/5 motor strength present throughout Sensory Exam: normal sensation Other: A&O x4 Extrem: General: normal to inspection Psych: Mental Status: mental status grossly normal Affect: normal affect Other: Good insight and judgment, pleasant Objective Data Vital Signs Vital Signs: Vital Signs - 24 hr 07/27/24 08:55 07/27/24 10:29 07/27/24 10:29 Temperature Pulse Rate 72 64 Respiratory Rate 18 Blood Pressure Pulse Oximetry 95 Oxygen Delivery Nasal Cannula Oxygen Flow Rate 1.5 07/27/24 10:38 07/27/24 14:00 07/27/24 14:00 Temperature 98.2 F Pulse Rate 64 81 Respiratory Rate 18 18 Blood Pressure 92/40 L Pulse Oximetry 94 Oxygen Delivery Nasal Cannula Oxygen Flow Rate 1.5 07/27/24 15:58 07/27/24 16:11 07/27/24 20:00 Temperature Pulse Rate 68 76 Respiratory Rate 18 18 Blood Pressure Pulse Oximetry 91 Oxygen Delivery Nasal Cannula Oxygen Flow Rate 3 07/27/24 20:22 07/27/24 20:48 07/27/24 20:48 Temperature 97.7 F Pulse Rate 63 64 Respiratory Rate 16 15 Blood Pressure 127/59 L Pulse Oximetry 92 91 Oxygen Delivery Nasal Cannula Oxygen Flow Rate 1.5 07/27/24 20:53 07/27/24 21:11 07/27/24 21:13 Temperature Pulse Rate 70 64 64 Respiratory Rate 15 Blood Pressure Pulse Oximetry Oxygen Delivery Oxygen Flow Rate 07/28/24 05:09 07/28/24 08:03 07/28/24 08:03 Temperature 97.9 F Pulse Rate 67 75 Respiratory Rate 16 Blood Pressure 152/65 H Pulse Oximetry 92 91 Oxygen Delivery Nasal Cannula Oxygen Flow Rate 3 07/28/24 08:09 Temperature Pulse Rate 72 Respiratory Rate 16 Blood Pressure Pulse Oximetry Oxygen Delivery Oxygen Flow Rate Intake/Output Intake/Output: Intake & Output 07/25/24 07/26/24 07/27/24 07/28/24 23:59 23:59 23:59 23:59 Intake Total 2478.7 2060 Output Total 1 Balance 2478.7 2058 Meds/Results Medications: Active Medications Generic Name Dose Route Start Last Admin Trade Name Freq PRN Reason Stop Dose Admin Acetaminophen 650 mg 07/26/24 12:56 07/28/24 00:43 Acetaminophen 325 Mg Tablet PO 650 mg Q4H PRN Administration Mild Pain (1-3) or Fever Albuterol/Ipratropium 3 ml 07/26/24 12:37 Ipratropium 0.5 Mg/Albuterol Sulfate 2.5 Mg Ampul.Neb 3 Ml INHALATION Q6HRT PRN Shortness Of Breath Or Wheezing Albuterol/Ipratropium 3 ml 07/26/24 14:00 07/28/24 08:02 Ipratropium 0.5 Mg/Albuterol Sulfate 2.5 Mg Ampul.Neb 3 Ml INHALATION 3 ml Q6HRT MARTIN Administration Benzonatate 100 mg 07/26/24 12:37 07/28/24 00:43 Benzonatate 100 Mg Capsule PO 100 mg TID PRN Administration Cough Buspirone HCl 20 mg 07/27/24 08:30 07/27/24 21:13 Buspirone Hcl 10 Mg Tablet PO 20 mg 0830,1330,1930 MARTIN Administration Carvedilol 12.5 mg 07/26/24 22:50 07/26/24 23:21 Carvedilol 12.5 Mg Tablet PO 12.5 mg Q12HR MARTIN Administration Cyclosporine 1 drop 07/26/24 22:50 07/27/24 21:14 Cyclosporine 0.4 Ml Ophth Solution EACH EYE 1 drop Q12HR MARTIN Administration Famotidine 20 mg 07/27/24 09:00 07/27/24 21:13 Famotidine 20 Mg Tablet PO 20 mg Q12HR MARTIN Administration Ferrous Sulfate 325 mg 07/27/24 17:00 07/27/24 17:27 Ferrous Sulfate [address] PO 325 mg BID MARTIN Administration Flecainide Acetate 50 mg 07/26/24 23:15 07/27/24 21:11 Flecainide Acetate 50 Mg Tablet PO 50 mg Q12HR MARTIN Administration Flecainide Acetate 100 mg 07/26/24 23:15 07/27/24 21:13 Flecainide Acetate 100 Mg Tablet PO 100 mg Q12HR MARTIN Administration Furosemide 20 mg 07/27/24 09:00 07/27/24 08:54 Furosemide 20 Mg Tablet PO 20 mg DAILY MARTIN Administration Guaifenesin 600 mg 07/26/24 21:00 07/27/24 21:13 Guaifenesin 12 Hr 600 Mg Tabcr PO 600 mg Q12HR MARTIN Administration Guaifenesin/Dextromethorphan 10 ml 07/27/24 10:46 Guaifenesin/Dextromethorphan 10 Ml Udc PO Q4H PRN Cough Hydralazine HCl 50 mg 07/26/24 22:50 Hydralazine Hcl 50 Mg Tablet PO ONCE PRN Hypertension Cefepime HCl 2 gm in 50 mls @ 100 mls/hr 07/26/24 22:00 07/27/24 21:14 Maxipime 2 Gm/Ns 50 Ml IVPB 100 mls/hr Q12HR MARTIN Administration Azithromycin 500 mg in 250 mls @ 250 mls/hr 07/26/24 13:00 07/27/24 13:56 Zithromax IVPB 250 mls/hr Q24H MARTIN Administration Losartan Potassium 25 mg 07/27/24 09:00 Losartan Potassium 25 Mg Tablet PO DAILY [facility] Ondansetron HCl 4 mg 07/26/24 12:56 Ondansetron Inj 4 Mg/2 Ml Vial IV PUSH Q4H PRN Nausea Rivaroxaban 15 mg 07/27/24 18:00 07/27/24 17:27 Rivaroxaban 15 Mg Tablet PO 15 mg QPM MARTIN Administration Tamsulosin HCl 0.4 mg 07/27/24 09:00 07/27/24 08:53 Tamsulosin Hcl 0.4 Mg Capsule PO 0.4 mg QAM MARTIN Administration Vitamin D 1,000 units 07/27/24 09:00 07/27/24 08:55 Cholecalciferol 1,000 Units Tablet PO 1,000 units DAILY MARTIN Administration Radiology Results: ITS Impressions Chest X-Ray 07/26/24 10:17 IMPRESSION: 1. Diffuse lung disease with improvement from 07/07/2024, consistent with pulmonary edema versus pneumonia. 2. Small left pleural effusion. Labs Labs: Laboratory Results - last 24 hr 07/28/24 05:36 WBC 9.4 RBC 2.66 L Hgb 8.2 L Hct 26.2 L MCV 98.5 MCH 30.8 MCHC 31.3 L RDW 15.9 H Plt Count 148 L MPV 9.4 Sodium 137 Potassium 3.6 Chloride 104 Carbon Dioxide 28 Anion Gap 5 BUN 17 Creatinine 0.68 L Estim Creat Clear Calc 50 Estimated GFR > 60 Glucose 101 Calcium 8.4 Total Bilirubin 0.7 AST 32 ALT 24 Alkaline Phosphatase 111 Total Protein 6.0 L Albumin 2.7 L Quality VTE Prophylaxis VTE prophylaxis: pharmacologic ordered -Patient's previous records reviewed on admission -ER notes reviewed in detail on admission -discussed all findings and current treatment plan with patient/Family/POA -Consultations reviewed for recommendations -Patient's disposition for safe discharge discussed with social work case manager Dictation performed by [employer] direct speech recognition software, therefore wallpaper embosser helper variants and typographical errors may occur. Hospitalist MIPS Advance Care Plan I have confirmed that the patient's Advanced Care Plan is present, code status is documented, or surrogate decision maker is listed in patient medical record.: Yes Medication Reconciliation I have utilized all available resources to obtain, update and review the patients current medications (includes all prescriptions, OTC, herbals, cannabis, and nutritional supplements).: Yes The patient is not eligible for med reconciliation; the patient is in a emergent medical situation where delaying treatment would jeopardize the patients health.: No
[2024-07-28] MEDS: CEFEPIME 2 GM/NS 50 ML 2 GM/50 ML BAG IVPB ×2 (09:28→20:54)
[2024-07-28] MEDS: FERROUS SULFATE 325 MG TABLET DR PO ×2 (09:28→17:11)
[2024-07-28] MEDS: FAMOTIDINE 20 MG TABLET PO ×2 (09:28→20:55)
[2024-07-28] MEDS: TAMSULOSIN HCL 0.4 MG CAPSULE PO (09:28)
[2024-07-28] MEDS: guaiFENesin 12 HR 600 MG TABCR PO ×2 (09:28→20:56)
[2024-07-28] MEDS: CHOLECALCIFEROL 1,000 UNITS TABLET 1000 UNITS PO (09:28)
[2024-07-28] MEDS: busPIRone HCL 10 MG TABLET 20 MG PO ×3 (09:28→18:29)
[2024-07-28] MEDS: FUROSEMIDE 20 MG TABLET PO (09:28)
[2024-07-28] MEDS: cycloSPORINE 0.4 ML OPHTH SOLUTION 1 DROP EACH EYE ×2 (09:29→20:56)
[2024-07-28] MEDS: FLECAINIDE ACETATE 50 MG TABLET PO ×2 (09:31→20:55)
[2024-07-28] MEDS: FLECAINIDE ACETATE 100 MG TABLET PO ×2 (09:31→20:56)
[2024-07-28 10:53] LABS: NT Pro B Type Natriuretic Pept 1480 pg/mL (19.9-100)
[2024-07-28] MEDS: AZITHROMYCIN 500 MG/NS 250 ML 500 MG/250 ML BAG 250 MG IVPB (12:03)
[2024-07-28] MEDS: FUROSEMIDE INJ 40 MG/4 ML VIAL 20 MG IV PUSH (14:10)
[2024-07-28] MEDS: RIVAROXABAN 15 MG TABLET PO (17:11)
[2024-07-28] MEDS: ONDANSETRON INJ 4 MG/2 ML VIAL IV PUSH (18:24)
[2024-07-29] VITALS (14 sets, daily range): BP systolic 108–152; BP diastolic 57–63; PULSE 67–88; RESP 16–20; TEMP 36.4–36.8; O2SAT 92–97
[2024-07-29] MEDS: IPRATROPIUM 0.5 MG/ALBUTEROL SULFATE 2.5 MG AMPUL.NEB 3 ML INHALATION ×3 (02:09→21:55)
[2024-07-29 05:37] LABS: Hematocrit 26.7 % (37.0-47.0); Hemoglobin 8.5 g/dL (12.0-15.0); Mean Corpuscular HGB Conc 31.8 g/dl (32-36); Mean Corpuscular Hemoglobin 30.8 pg (26-34); Mean Corpuscular Volume 96.7 fl (80-100); Mean Platelet Volume 8.9 fl (7.4-10.4); Platelet Count Result 193 k/mm3 (150-375); Red Blood Count 2.76 M/mm3 (4.2-5.4); Red Cell Distribution Width 15.6 % (11.5-14.5)
[2024-07-29 05:55] LABS: Alanine Aminotransferase 24 U/L (6-35); Albumin Level 2.9 g/dL (3.5-5.1); Alkaline Phosphatase 113 U/L (38-126); Anion Gap 6 mmol/L (4-12); Aspartate Amino Transferase 29 U/L (14-36); Bilirubin,Total 0.7 mg/dL (0.2-1.3); Blood Urea Nitrogen 14 mg/dL (7-17); Calcium 8.5 mg/dL (8.4-10.2); Carbon Dioxide 29 mmol/L (22-30); Chloride 101 mmol/L (98-107); Estimated CRCL calculation 52 ml/min; Estimated Glomerular Filt Rate > 60; Glucose 105 mg/dL (65-110); Potassium 3.3 mmol/L (3.4-5.0); Sodium 136 mmol/L (137-145)
[2024-07-29] MEDS: CHOLECALCIFEROL 1,000 UNITS TABLET 1000 UNITS PO (08:53)
[2024-07-29] MEDS: guaiFENesin 12 HR 600 MG TABCR PO ×2 (08:53→20:41)
[2024-07-29] MEDS: FERROUS SULFATE 325 MG TABLET DR PO ×2 (08:53→17:44)
[2024-07-29] MEDS: FAMOTIDINE 20 MG TABLET PO ×2 (08:53→20:41)
[2024-07-29] MEDS: FLECAINIDE ACETATE 100 MG TABLET PO ×2 (08:53→20:41)
[2024-07-29] MEDS: FUROSEMIDE 20 MG TABLET PO (08:53)
[2024-07-29] MEDS: TAMSULOSIN HCL 0.4 MG CAPSULE PO (08:53)
[2024-07-29] MEDS: FLECAINIDE ACETATE 50 MG TABLET PO ×2 (08:54→20:41)
[2024-07-29] MEDS: cycloSPORINE 0.4 ML OPHTH SOLUTION 1 DROP EACH EYE ×2 (08:58→20:40)
[2024-07-29] MEDS: POTASSIUM CHLORIDE 20 MEQ ER TABLET 40 MEQ PO (08:58)
[2024-07-29] MEDS: busPIRone HCL 10 MG TABLET 20 MG PO ×3 (08:58→20:40)
[2024-07-29] MEDS: CEFEPIME 2 GM/NS 50 ML 2 GM/50 ML BAG IVPB (09:30)
[2024-07-29] MEDS: levoFLOXacin 750 MG TABLET PO (13:30)
--- NOTE | 2024-07-29 14:43 | P.PNIM_ITS ---
Progress Note: A&P Assessment and Plan (1) Acute respiratory failure with hypoxia: Code(s): J96.01 - Acute respiratory failure with hypoxia Status: Acute Assessment and Plan: * Multifocal pneumonia / COPD/CHF * Patient dropped to 85% on room air per chart * Currently on 2L NC * Wean supplemental oxygen as tolerated * Treat Pneumonia/COPD (2) Pneumonia: Qualifiers: Pneumonia type: due to unspecified organism Laterality: bilateral Lung location: unspecified part of lung Qualified Code(s): J18.9 - Pneumonia, unspecified organism Code(s): J18.9 - Pneumonia, unspecified organism Status: Acute Assessment and Plan: * did not meet SIRS criteria, however BP low. Lactic 1.1. Blood cultures obtained on 07/26, follow. * CXR: 1. Diffuse lung disease with improvement from 07/07/2024, consistent with pulmonary edema versus pneumonia. 2. Small left pleural effusion. * complicating factors and risk factors: recent treatment for pneumonia in June of 2024, COPD * started on HAP tx: cefepime and azithromycin on 07/26 * MRSA PCR negative on 07/04/2024 * Viral PCR pending * supportive care * sputum culture pending/previous sputum no growth * blood cultures NGTD 07/28 * No change to current treatment continue to wean oxygen requirements * blood cultures with no growth * normal WBC today (3) Diastolic dysfunction: Code(s): I51.89 - Other ill-defined heart diseases Status: Acute Assessment and Plan: Acute on chronic diastolic heart failure * BNP 1480 * cardiology consulted * IV Lasix 20mg BID * monitor renal function during diuresis * previous echocardiogram results: There is moderate concentric left ventricular hypertrophy. The left ventricular ejection fraction is visually estimated to be 60-65%. * ICD present * chest x-ray: Pulmonary edema vs pneumonia * CTA pending for further evaluation * Optimize Rj inhibitors, beta-blockers, ARNI * Daily weight. * fluid restriction 1500L * elevate/Rj wrap legs if needed (4) COPD (chronic obstructive pulmonary disease): Qualifiers: COPD type: unspecified COPD Qualified Code(s): J44.9 - Chronic obstructive pulmonary disease, unspecified Code(s): J44.9 - Chronic obstructive pulmonary disease, unspecified Status: Chronic Assessment and Plan: * Rosette PRN * P.o. azithromycin * prednisone 40 mg PO x5 days * continue home maintenance inhalers * Wean oxygen as tolerated (5) Hypertension: Qualifiers: Hypertension type: unspecified Qualified Code(s): I10 - Essential (primary) hypertension Code(s): I10 - Essential (primary) hypertension Status: Chronic Assessment and Plan: * chronic, currently 105/91 * arrived soft at 81/33 and systolic now running in the 80s to 100s. Hold Coreg, hydralazine, losartan. Will continue flecainide. * monitor (6) Anemia: Code(s): D64.9 - Anemia, unspecified Status: Acute Assessment and Plan: * Hgb 9.3 POA 8.0 now * received IV fluids throughout the night could be diluted * no overt evidence GIB * iron panel * started ferrous sulfate * Transfuse PRBC if Hgb <7.0 Plan Code status: Full code per patient DVT prophylaxis: Xarelto Stress ulcer prophylaxis: Protonix 40 daily PT/OT notes: Pending Disposition: Patient admitted to the medical for further treatment of acute respiratory failure with hypoxia secondary to pneumonia/COPD exacerbation/ CHF exacerbation. Will continue to wean oxygen PT/OT pending for any further discharge needs. Time Spent With Patient Time with patient: 15 - 25 minutes Subjective Date/time seen: 07/29/24 14:43 Interval history: patient was 83-year-old female admitted for treatment of pneumonia and COPD exacerbation 07/29/24: Patient up in chair feeling better today currently weaned off oxygen. No complaints feeling better hopefully home tomorrow cleared by PT/OT. Review of Systems Review of Systems: All systems reviewed & are unremarkable except as noted in HPI and below Exam Const: General: comfortable and no acute distress Other: , female, nontoxic appearance HENMT: Face/Nose/Sinus: Normal nares present Mouth: Yes moist mucous membranes Eyes: General: appearance normal, both eyes and all related structures Sclera: sclerae normal Pupils: Equal, round and reactive pupils present EOM: EOMs intact bilaterally Neck: Neck: supple and no JVD Resp: Effort & Inspection: normal respiratory effort Auscultation: diminished lung sounds bilateral in the lower lung cho Other: Mid and lower lung zones bilaterally with crackles. No wheezing. Cardio: Rate: regular rate Rhythm: regular rhythm Other: S1-S2 present without murmur, rub, ectopy GI: Auscultation: normal bowel sounds Other: Abdomen soft, nondistended, nontender. Skin: General skin exam: normal color and no rashes or lesions noted Wounds: no wounds Neuro: Cranial nerves: Yes Equal, round and reactive pupils present Speech: normal speech Motor exam (neuro): 5/5 motor strength present throughout Sensory Exam: normal sensation Other: A&O x4 Extrem: General: normal to inspection Psych: Mental Status: mental status grossly normal Affect: normal affect Other: Good insight and judgment, pleasant Objective Data Vital Signs Vital Signs: Vital Signs - 24 hr 07/28/24 17:13 07/28/24 20:43 07/28/24 20:54 Temperature Pulse Rate 75 67 Respiratory Rate 18 Blood Pressure Pulse Oximetry 95 96 Oxygen Delivery Nasal Cannula Nasal Cannula Oxygen Flow Rate 2 2 Fraction of Inspired Oxygen 07/28/24 20:55 07/28/24 20:56 07/28/24 20:56 Temperature Pulse Rate 70 70 67 Respiratory Rate 18 Blood Pressure Pulse Oximetry Oxygen Delivery Oxygen Flow Rate Fraction of Inspired Oxygen 07/28/24 21:56 07/29/24 02:09 07/29/24 02:16 Temperature 97.5 F L Pulse Rate 67 67 67 Respiratory Rate 18 18 18 Blood Pressure 123/59 L Pulse Oximetry 97 Oxygen Delivery Oxygen Flow Rate Fraction of Inspired Oxygen 07/29/24 05:21 07/29/24 08:53 07/29/24 08:54 Temperature 97.6 F Pulse Rate 88 88 88 Respiratory Rate 18 Blood Pressure 152/63 H Pulse Oximetry 92 Oxygen Delivery Oxygen Flow Rate Fraction of Inspired Oxygen 07/29/24 08:55 07/29/24 09:38 07/29/24 09:38 Temperature Pulse Rate 73 Respiratory Rate 20 Blood Pressure Pulse Oximetry 97 95 Oxygen Delivery Nasal Cannula Nasal Cannula Oxygen Flow Rate 2 2 Fraction of Inspired Oxygen 28 28 07/29/24 09:44 Temperature Pulse Rate 70 Respiratory Rate 20 Blood Pressure Pulse Oximetry Oxygen Delivery Oxygen Flow Rate Fraction of Inspired Oxygen Intake/Output Intake/Output: Intake & Output 07/26/24 07/27/24 07/28/24 07/29/24 23:59 23:59 23:59 23:59 Intake Total 2478.7 2360 1730 590 Output Total 1 Balance 2478.7 2359 1730 590 Meds/Results Medications: Active Medications Generic Name Dose Route Start Last Admin Trade Name Freq PRN Reason Stop Dose Admin Acetaminophen 650 mg 07/26/24 12:56 07/28/24 00:43 Acetaminophen 325 Mg Tablet PO 650 mg Q4H PRN Administration Mild Pain (1-3) or Fever Albuterol/Ipratropium 3 ml 07/26/24 12:37 Ipratropium 0.5 Mg/Albuterol Sulfate 2.5 Mg Ampul.Neb 3 Ml INHALATION Q6HRT PRN Shortness Of Breath Or Wheezing Albuterol/Ipratropium 3 ml 07/26/24 14:00 07/29/24 09:38 Ipratropium 0.5 Mg/Albuterol Sulfate 2.5 Mg Ampul.Neb 3 Ml INHALATION 3 ml Q6HRT MARTIN Administration Benzonatate 100 mg 07/26/24 12:37 07/28/24 00:43 Benzonatate 100 Mg Capsule PO 100 mg TID PRN Administration Cough Buspirone HCl 20 mg 07/27/24 08:30 07/29/24 13:30 Buspirone Hcl 10 Mg Tablet PO 20 mg 0830,1330,1930 MARTIN Administration Carvedilol 12.5 mg 07/26/24 22:50 07/26/24 23:21 Carvedilol 12.5 Mg Tablet PO 12.5 mg Q12HR MARTIN Administration Cyclosporine 1 drop 07/26/24 22:50 07/29/24 08:58 Cyclosporine 0.4 Ml Ophth Solution EACH EYE 1 drop Q12HR MARTIN Administration Famotidine 20 mg 07/27/24 09:00 07/29/24 08:53 Famotidine 20 Mg Tablet PO 20 mg Q12HR MARTIN Administration Ferrous Sulfate 325 mg 07/27/24 17:00 07/29/24 08:53 Ferrous Sulfate [address] PO 325 mg BID MARTIN Administration Flecainide Acetate 50 mg 07/26/24 23:15 07/29/24 08:54 Flecainide Acetate 50 Mg Tablet PO 50 mg Q12HR MARTIN Administration Flecainide Acetate 100 mg 07/26/24 23:15 07/29/24 08:53 Flecainide Acetate 100 Mg Tablet PO 100 mg Q12HR MARTIN Administration Furosemide 20 mg 07/27/24 09:00 07/29/24 08:53 Furosemide 20 Mg Tablet PO 20 mg DAILY MARTIN Administration Guaifenesin 600 mg 07/26/24 21:00 07/29/24 08:53 Guaifenesin 12 Hr 600 Mg Tabcr PO 600 mg Q12HR MARTIN Administration Guaifenesin/Dextromethorphan 10 ml 07/27/24 10:46 Guaifenesin/Dextromethorphan 10 Ml Udc PO Q4H PRN Cough Hydralazine HCl 50 mg 07/26/24 22:50 Hydralazine Hcl 50 Mg Tablet PO ONCE PRN Hypertension Levofloxacin 750 mg 07/29/24 14:00 07/29/24 13:30 Levofloxacin 750 Mg Tablet PO 08/01/24 14:01 750 mg DAILY@1400 MARTIN Administration Losartan Potassium 25 mg 07/27/24 09:00 Losartan Potassium 25 Mg Tablet PO DAILY MARTIN Ondansetron HCl 4 mg 07/26/24 12:56 07/28/24 18:24 Ondansetron Inj 4 Mg/2 Ml Vial IV PUSH 4 mg Q4H PRN Administration Nausea Rivaroxaban 15 mg 07/27/24 18:00 07/28/24 17:11 Rivaroxaban 15 Mg Tablet PO 15 mg QPM MARTIN Administration Tamsulosin HCl 0.4 mg 07/27/24 09:00 07/29/24 08:53 Tamsulosin Hcl 0.4 Mg Capsule PO 0.4 mg QAM MARTIN Administration Vitamin D 1,000 units 07/27/24 09:00 07/29/24 08:53 Cholecalciferol 1,000 Units Tablet PO 1,000 units DAILY MARTIN Administration Radiology Results: ITS Impressions Chest X-Ray 07/26/24 10:17 IMPRESSION: 1. Diffuse lung disease with improvement from 07/07/2024, consistent with pulmonary edema versus pneumonia. 2. Small left pleural effusion. Chest CTA 07/29/24 09:30 Impression: Small bilateral pleural effusions with moderate to advanced pulmonary edema. Correlate for underlying chronic interstitial disease. Labs Labs: Laboratory Results - last 24 hr 07/29/24 05:31 WBC 10.0 RBC 2.76 L Hgb 8.5 L Hct 26.7 L MCV 96.7 MCH 30.8 MCHC 31.8 L RDW 15.6 H Plt Count 193 MPV 8.9 Sodium 136 L Potassium 3.3 L Chloride 101 Carbon Dioxide 29 Anion Gap 6 BUN 14 Creatinine 0.66 L Estim Creat Clear Calc 52 Estimated GFR > 60 Glucose 105 Calcium 8.5 Total Bilirubin 0.7 AST 29 ALT 24 Alkaline Phosphatase 113 Total Protein 6.0 L Albumin 2.9 L Quality VTE Prophylaxis VTE prophylaxis: pharmacologic ordered -Patient's previous records reviewed on admission -ER notes reviewed in detail on admission -discussed all findings and current treatment plan with patient/Family/POA -Consultations reviewed for recommendations -Patient's disposition for safe discharge discussed with home health care case manager Dictation performed by [employer] direct speech recognition software, therefore pilot captain variants and typographical errors may occur. Hospitalist MIPS Advance Care Plan I have confirmed that the patient's Advanced Care Plan is present, code status is documented, or surrogate decision maker is listed in patient medical record.: Yes Medication Reconciliation I have utilized all available resources to obtain, update and review the patients current medications (includes all prescriptions, OTC, herbals, cannabis, and nutritional supplements).: Yes The patient is not eligible for med reconciliation; the patient is in a emergent medical situation where delaying treatment would jeopardize the patients health.: No
[2024-07-29] MEDS: FUROSEMIDE INJ 40 MG/4 ML VIAL 20 MG IV PUSH (17:43)
[2024-07-29] MEDS: RIVAROXABAN 15 MG TABLET PO (17:43)
[2024-07-30] VITALS (14 sets, daily range): BP systolic 123–135; BP diastolic 57–61; PULSE 74–98; RESP 16–20; TEMP 35.9–36.4; O2SAT 78–96
[2024-07-30] MEDS: IPRATROPIUM 0.5 MG/ALBUTEROL SULFATE 2.5 MG AMPUL.NEB 3 ML INHALATION ×2 (03:03→08:29)
[2024-07-30 06:43] LABS: Hemoglobin 8.7 g/dL (12.0-15.0); Mean Corpuscular HGB Conc 31.1 g/dl (32-36); Mean Corpuscular Hemoglobin 30.3 pg (26-34); Mean Corpuscular Volume 97.6 fl (80-100); Mean Platelet Volume 9.3 fl (7.4-10.4); Platelet Count Result 244 k/mm3 (150-375); Red Blood Count 2.87 M/mm3 (4.2-5.4); Red Cell Distribution Width 15.7 % (11.5-14.5); White Blood Count 9.2 K/mm3 (4.5-10.0)
[2024-07-30 07:09] LABS: Alanine Aminotransferase 24 U/L (6-35); Albumin Level 2.6 g/dL (3.5-5.1); Alkaline Phosphatase 100 U/L (38-126); Anion Gap 3 mmol/L (4-12); Aspartate Amino Transferase 29 U/L (14-36); Bilirubin,Total 0.6 mg/dL (0.2-1.3); Blood Urea Nitrogen 14 mg/dL (7-17); Calcium 8.5 mg/dL (8.4-10.2); Carbon Dioxide 33 mmol/L (22-30); Chloride 99 mmol/L (98-107); Estimated CRCL calculation 52 ml/min; Estimated Glomerular Filt Rate > 60; Glucose 108 mg/dL (65-110); Sodium 135 mmol/L (137-145)
[2024-07-30] MEDS: FUROSEMIDE INJ 40 MG/4 ML VIAL 20 MG IV PUSH (08:25)
[2024-07-30] MEDS: FLECAINIDE ACETATE 100 MG TABLET PO (08:26)
[2024-07-30] MEDS: FAMOTIDINE 20 MG TABLET PO (08:29)
[2024-07-30] MEDS: TAMSULOSIN HCL 0.4 MG CAPSULE PO (08:29)
[2024-07-30] MEDS: CHOLECALCIFEROL 1,000 UNITS TABLET 1000 UNITS PO (08:29)
[2024-07-30] MEDS: guaiFENesin 12 HR 600 MG TABCR PO (08:29)
[2024-07-30] MEDS: FERROUS SULFATE 325 MG TABLET DR PO (08:29)
[2024-07-30] MEDS: FLECAINIDE ACETATE 50 MG TABLET PO (08:29)
[2024-07-30] MEDS: cycloSPORINE 0.4 ML OPHTH SOLUTION 1 DROP EACH EYE (08:30)
[2024-07-30] MEDS: busPIRone HCL 10 MG TABLET 20 MG PO ×2 (08:32→13:08)
[2024-07-30] MEDS: levoFLOXacin 750 MG TABLET PO (13:08)
--- NOTE | 2024-07-30 13:39 | P.DS_ITS ---
DS: Admitting Diagnosis Discharge Date 07/30/2024 Admitting Diagnosis Acute respiratory failure with hypoxia/Pneumonia/anemia/CHF exacerbation DS: Discharge Diagnosis Discharge Diagnosis (1) Acute respiratory failure with hypoxia: Code(s): J96.01 - Acute respiratory failure with hypoxia Status: Acute Assessment and Plan: * Multifocal pneumonia / COPD/CHF * Patient dropped to 85% on room air per chart * Currently on 2L NC * Wean supplemental oxygen as tolerated * Treat Pneumonia/COPD (2) Pneumonia: Qualifiers: Laterality: bilateral Lung location: unspecified part of lung Pneumonia type: due to unspecified organism Qualified Code(s): J18.9 - Pneumonia, unspecified organism Code(s): J18.9 - Pneumonia, unspecified organism Status: Acute Assessment and Plan: * did not meet SIRS criteria, however BP low. Lactic 1.1. Blood cultures obtained on 07/26, follow. * CXR: 1. Diffuse lung disease with improvement from 07/07/2024, consistent with pulmonary edema versus pneumonia. 2. Small left pleural effusion. * complicating factors and risk factors: recent treatment for pneumonia in June of 2024, COPD * started on HAP tx: cefepime and azithromycin on 07/26 * MRSA PCR negative on 07/04/2024 * Viral PCR pending * supportive care * sputum culture pending/previous sputum no growth * blood cultures NGTD 07/28 * No change to current treatment continue to wean oxygen requirements * blood cultures with no growth * normal WBC today (3) Diastolic dysfunction: Code(s): I51.89 - Other ill-defined heart diseases Status: Acute Assessment and Plan: Acute on chronic diastolic heart failure * BNP 1480 * cardiology consulted * IV Lasix 20mg BID * monitor renal function during diuresis * previous echocardiogram results: There is moderate concentric left ventricular hypertrophy. The left ventricular ejection fraction is visually estimated to be 60-65%. * ICD present * chest x-ray: Pulmonary edema vs pneumonia * CTA pending for further evaluation * Optimize Rj inhibitors, beta-blockers, ARNI * Daily weight. * fluid restriction 1500L * elevate/Rj wrap legs if needed (4) COPD (chronic obstructive pulmonary disease): Qualifiers: COPD type: unspecified COPD Qualified Code(s): J44.9 - Chronic obstructive pulmonary disease, unspecified Code(s): J44.9 - Chronic obstructive pulmonary disease, unspecified Status: Chronic Assessment and Plan: * DuoNebs PRN * P.o. azithromycin * prednisone 40 mg PO x5 days * continue home maintenance inhalers * Wean oxygen as tolerated (5) Hypertension: Qualifiers: Hypertension type: unspecified Qualified Code(s): I10 - Essential (primary) hypertension Code(s): I10 - Essential (primary) hypertension Status: Chronic Assessment and Plan: * chronic, currently 105/91 * arrived soft at 81/33 and systolic now running in the 80s to 100s. Hold Coreg, hydralazine, losartan. Will continue flecainide. * monitor (6) Anemia: Code(s): D64.9 - Anemia, unspecified Status: Acute Assessment and Plan: * Hgb 9.3 POA 8.0 now * received IV fluids throughout the night could be diluted * no overt evidence GIB * iron panel * started ferrous sulfate * Transfuse PRBC if Hgb <7.0 Plan Disposition: Discharged to home DS: Summary Hospital Course Reason for hospitalization: Acute respiratory failure with hypoxia/Pneumonia/anemia/CHF exacerbation Hospital Course: Patient was a 83 y/o F presents here with generalized weakness and cough with PMH of diastolic dysfunction, DA, COPD, paroxysmal AFib, hypertension, headaches, and arthritis. The patient presents here from home for further evaluation of generalized weakness, cough, and nausea. She reports symptom onset 3-4 days ago. She denies shortness of breath, vomiting, diarrhea, fever, chills or body aches. She initially sought care with her PCP through [facility]. She had outpatient lab work done yesterday (07/25). She received a call back today indicating that her WBC was elevated and she should seek further evaluation in the ED. Of note, the patient had a recent admission at [facility] from 07/03/2024 to 07/08/2024. During this admission she was treated for COVID (tested positive around 06/26), pneumonia, peripheral edema (normal echo) and transient urinary retention. patient was then admitted to the medical unit for acute respiratory failure with hypoxia requiring 3-4 L of supplemental oxygen to maintain 92%. Patient during admission was treated for possible HAP pneumonia after CXR showed diffuse lung disease with improvement from to 08/01/2024 consistent with pulmonary edema versus pneumonia and small left pleural effusion. Initial EKG showed electronic atrial pacemaker, right bundle branch block, left anterior fascicular block and elevated WBC. patient was also treated for CHF exacerbation BNP elevated greater than 1400 follow-up chest CTA showed pulmonary edema and small bilateral pleural effusions no PE I transition patient to IV Lasix 20 mg b.i.d. which she responded to well initially was able to wean patient off of oxygen. patient was also placed on a 1500 mL fluid restriction and compression stockings placed for bilateral lower extremity edema. chest CT did show some suspicion for possible interstitial lung disease patient [facility] was instructed to follow up for further evaluation. patient was also noted to have anemia hemoglobin of 8.4 previous iron panel showing iron deficiency anemia at which time I started patient on iron supplements hemoglobin remained stable during stay no evidence of any active bleed. patient reported overall improvement to shortness of breath still with mild cough but improving she was discharged on oral Levaquin to complete her antibiotic therapy she was instructed to follow-up with her primary care physician, quencher operator and event marketing intern outpatient requested referral to brass burnisher from her primary to continue to monitor and follow her anemia. Prior to discharge I did perform a home oxygen study when there was no indication or need for supplemental oxygen. patient and at bedside updated with discharge plan both acknowledged and agreed patient discharged home. Status at Discharge Functional status at discharge: independent ambulation Overall status at discharge: patient is back to baseline Time Spent with Patient Time attestation: Total time spent providing and/or coordinating discharge services: Time spent: Greater than 30 minutes Exam Const: General: comfortable and no acute distress Other: , female, nontoxic appearance HENMT: Face/Nose/Sinus: Normal nares present Mouth: Yes moist mucous membranes Other: ROOM AIR Eyes: General: appearance normal, both eyes and all related structures Sclera: sclerae normal Pupils: Equal, round and reactive pupils present EOM: EOMs intact bilaterally Neck: Neck: supple and no JVD Resp: Effort & Inspection: normal respiratory effort Auscultation: diminished lung sounds bilateral in the lower lung cho Other: Mid and lower lung zones bilaterally with crackles. No wheezing. Cardio: Rate: regular rate Rhythm: regular rhythm Other: S1-S2 present without murmur, rub, ectopy GI: Auscultation: normal bowel sounds Other: Abdomen soft, nondistended, nontender. Skin: General skin exam: normal color and no rashes or lesions noted Wounds: no wounds Neuro: Cranial nerves: Yes Equal, round and reactive pupils present Speech: normal speech Motor exam (neuro): 5/5 motor strength present throughout Sensory Exam: normal sensation Other: A&O x4 Extrem: General: normal to inspection Psych: Mental Status: mental status grossly normal Affect: normal affect Other: Good insight and judgment, pleasant DS: Data Data Completed and Pending Labs on day of discharge: Labs from last 24 hours 07/30/24 06:25 WBC 9.2 RBC 2.87 L Hgb 8.7 L Hct 28.0 L MCV 97.6 MCH 30.3 MCHC 31.1 L RDW 15.7 H Plt Count 244 MPV 9.3 Sodium 135 L Potassium 4.0 Chloride 99 Carbon Dioxide 33 H Anion Gap 3 L BUN 14 Creatinine 0.66 L Estim Creat Clear Calc 52 Estimated GFR > 60 Glucose 108 Calcium 8.5 Total Bilirubin 0.6 AST 29 ALT 24 Alkaline Phosphatase 100 Total Protein 5.0 L Albumin 2.6 L Preliminary micro results at discharge 07/26/24 12:07 Blood Culture - Preliminary Blood 07/26/24 12:13 Blood Culture - Preliminary Blood Imaging Radiologist's impression: adiology Results: ITS Impressions Chest X-Ray 07/26/24 10:17 IMPRESSION: 1. Diffuse lung disease with improvement from 07/07/2024, consistent with pulmonary edema versus pneumonia. 2. Small left pleural effusion. Chest CTA 07/29/24 09:30 Impression: Small bilateral pleural effusions with moderate to advanced pulmonary edema. Correlate for underlying chronic interstitial disease. Discharge Plan Discharge Attending physician on discharge: Scarlett Zapien Discharging Clinician: Areli Calderon Anticipated Discharge Date/Time: 07/30/24 13:22 Patient Disposition: Home, Self-Care Activity: unlimited and as tolerated Diet: heart healthy and low sodium Discharge Instructions: Pneumonia: * I have prescribed oral antibiotic therapy please complete as indicated unit feeling better * May continue with [id number] cough medicine to help with secretions * As needed Tessalon Perles for cough * I recommend encouraged to continue to use your incentive spirometer * Chest CT showed suspicion for possible interstitial lung disease I provided information to the attached discharge summary I recommend a follow-up with your pulmonary care physician as scheduled at [facility] CHF exacerbation: * I have resume to oral Lasix 20 mg * Follow-up with cardiology as scheduled * Continue with compression stockings * Elevate legs when at rest * I recommend a low-sodium heart healthy diet * Fluid restriction of 1500 mL Anemia: * In iron panel was completed showing iron deficiency anemia * Started you on iron supplements please take as indicated of note these can cause constipation so will order a stool softener as well * You were currently on a blood thinner if you notice any type of blood in stool is recommended to seek medical attention * Would recommend follow-up with a brass burnisher for further evaluation Your blood pressure had stabilized may resume BP medications as indicated do recommend monitoring BP at home and follow-up with primary or event marketing intern How can you care for yourself at home? ? Keep track of any new symptoms or changes in your symptoms. ? Rest until you feel better. ? Be safe with medicines. Take your medicines exactly as prescribed. Call your doctor if you think you are having a problem with your medicine. ? Do not drive after taking a prescription pain medicine. ? Ensure to follow-up with primary care physician as indicated and provide updated medication list provided to you at discharge. When should you call for help? Call 911 anytime you think you may need emergency care. For example, call if: ? You passed out (lost consciousness). Call your doctor now or seek immediate medical care if: ? You have new symptoms like fever, difficulty breathing, Chest pain, vomiting, or rash. ? You have new or different pain. ? You are confused and are having trouble thinking clearly. ? Your symptoms are getting worse. Watch closely for changes in your health, and be sure to contact your doctor if: ? You do not get better as expected. Patient Instructions: Antibiotic Form, Rivaroxaban (By mouth), Heart Failure (DC), Bronchiolitis (DC), Iron Rich Diet (DC), Iron Deficiency Anemia (GEN), Pneumonia (DC), How Your Lungs Work (DC), Chronic Lung Disease and Infection Prevention (DC), Energy Conservation Techniques (DC) Patient Language: Portuguese Stand Alone Forms: General Discharge Information Follow-up/Referrals: PHYSICIAN NOT ON STAFF,NONSTAFF [Primary Care Provider] - 2 Weeks (Follow-up with your primary, pulmonary and event marketing intern at [facility]) Discharge Medications: New benzonatate 100 mg Capsule 100 mg PO TID PRN (Reason: Cough) Qty: 15 0RF ferrous sulfate 325 mg (65 mg iron) Tablet,Delayed Release (Dr/Ec) 325 mg PO BID Qty: 60 0RF guaifenesin [Mucus Relief ER] 600 mg Tablet Extended Release 12hr 600 mg PO Q12HR Qty: 14 0RF Rx Instructions: OTC levofloxacin 750 mg tablet 750 mg PO DAILY Qty: 4 0RF sennosides-docusate sodium [Senna with Docusate Sodium] 8.6-50 mg tablet 1 tab-cap PO HS Qty: 30 0RF Continued cholecalciferol (vitamin D3) 25 mcg (1,000 unit) capsule 1,000 unit PO DAILY carvedilol [Coreg] 25 mg tablet 12.5 mg PO Q12H Rx Instructions: must administer with a meal/food flecainide 150 mg tablet 150 mg PO Q12H ketoconazole 2 % cream 1 applic topical BID losartan 25 mg tablet 25 mg PO DAILY Restasis MultiDose 0.05 % drops 1 drp EACH EYE Q12H famotidine 20 mg Tablet 20 mg PO Q12HR Qty: 60 0RF Xarelto 15 mg tablet 15 mg PO QPM buspirone 10 mg tablet 20 mg PO 0830,1330,1930 hydralazine 50 mg tablet 50 mg PO ONCE PRN (Reason: Hypertension) tamsulosin 0.4 mg Capsule 0.4 mg PO QAM 30 Days Qty: 30 0RF Patient Comments: x30 day supply last filled on 07/08/24 furosemide [Lasix] 20 mg tablet 20 mg PO DAILY 30 Days Qty: 30 0RF Date of admission: 07/26/24 12:57 Primary Care Provider: PHYSICIAN NOT ON STAFF,NONSTAFF Admitting Provider: Joe Zelaya Attending physician on admission: Areli Calderon Condition: Stable Quality VTE Prophylaxis VTE prophylaxis: pharmacologic ordered -Patient's previous records reviewed on admission -ER notes reviewed in detail on admission -discussed all findings and current treatment plan with patient/Family/POA -Consultations reviewed for recommendations -Patient's disposition for safe discharge discussed with showcase maker Dictation performed by [employer] direct speech recognition software, therefore construction tech variants and typographical errors may occur. Hospitalist MIPS Heart Failure (Exclusion) Patient has history of Heart Transplant or Left Ventricular Assistive Device?: No IF YES, STOP HERE Heart Failure (Qualifier) Patient has current or prior documentation of LVEF less than or equal to 40%, or mod/servere depressed LVSF?: No IF NO, STOP HERE
--- NOTE | 2024-07-30 13:45 | PCRCNOTE ---
Home O2 Eval done, no home O 2needed at this time, RN notified
[2024-07-30] MEDS: ONDANSETRON INJ 4 MG/2 ML VIAL IV PUSH (14:55)
== END 2024-07-30 15:30 | disposition home or self-care (01) | DRG 193 ==
LOC: ANHED 10:40 → ANH3MEDSUR 14:37
PROVIDERS: Student in an Organized Health Care Education/Training Program; Admitting Provider General Practice; Emergency Provider Family Medicine; Visit Provider Nurse Practitioner Family
DX: J18.9 Pneumonia, unspecified organism (principal); I50.33 Acute on chronic diastolic (congestive) heart failure; J96.01 Acute respiratory failure with hypoxia; J44.0 Chronic obstructive pulmonary disease with (acute) lower respiratory infection; I48.0 Paroxysmal atrial fibrillation; D64.9 Anemia, unspecified; E78.5 Hyperlipidemia, unspecified; F41.9 Anxiety disorder, unspecified; I11.0 Hypertensive heart disease with heart failure; Z86.73 Personal history of transient ischemic attack (TIA), and cerebral infarction without residual deficits; Z79.01 Long term (current) use of anticoagulants; Z20.822 Contact with and (suspected) exposure to COVID-19; Z95.0 Presence of cardiac pacemaker; Z90.49 Acquired absence of other specified parts of digestive tract
CPT/HCPCS: 36415; 71045; 71275; 80048; 80053; 81001; 82948; 83605; 83880; 85025; 85027; 87040; 87637; 93005; 94618; 94640; 96360; 97110; 97116; 97161; 97165; 97530; 97535; 99285; A9270; J0456; J0692; J1940; J2405; J7030; J7040; Q9967

== ENCOUNTER 2024-07-31 15:46 | Inpatient (IN) | payer MEDICARE, OTHER, SELFPAY ==
[2024-07-31] VITALS (7 sets, daily range): BP systolic 124–161; BP diastolic 60–70; PULSE 62–84; RESP 18–25; TEMP 36.6; O2SAT 60–100; BMI 26.1
--- NOTE | ~2024-07-31 | CT_ITS ---
EXAMINATION: CTA chest PE protocol DATE: 07/31/2024 17:21 CDT INDICATION: Hypoxia TECHNIQUE: Computed tomographic angiography (CTA) of the chest was performed with 100 mL Omnipaque-35 0 intravenous contrast. The dose-length product was 231.21 mGy-cm. Maximum intensity projection 3D-re constructions of the aorta and other arteries were constructed by the technologist on a separate work station. COMPARISON: 07/29/2024 were. FINDINGS/OBSERVATIONS: PULMONARY ARTERIES: No filling defect is identified within the main or proximal pulmonary artery. The main pulmonary artery is not enlarged. THORACIC AORTA: No aneurysmal dilatation or dissection is present. The great vessels are intact LUNGS: Biapical varicose bronchiectasis. Redemonstration of patchy groundglass opacification within the bilateral lung cho, unchanged from prior. Small bilateral pleural effusions, right greater than left, decreased from prior. Interstitial thickening is detected bilaterally, also unchanged. MEDIASTINUM: No morphologically suspicious or pathologically enlarged lymph nodes are identified with in the mediastinum or bilateral axilla. Retrosternal extent of the right lobe of the thyroid gland, also unchanged. BONES OF THE CHEST: No acute fracture. No significant degenerative disease. No lytic or blastic lesions. HEART: The heart is of normal size, without pericardial effusion. Right-sided pacemaker in position. IMPRESSION: No pulmonary embolus. No thoracic aortic dissection. Redemonstration of advanced/severe pulmonary edema, as detailed above. Bilateral pleural effusions (right greater than left), decreased in size from previous examination. Reviewed, dictated and finalized at location A. IMPRESSION: No pulmonary embolus. No thoracic aortic dissection. Redemonstration of advanced/severe pulmonary edema, as detailed above. Bilateral pleural effusions (right greater than left), decreased in size from p revious examination.
--- NOTE | ~2024-07-31 | XR_ITS ---
XR chest 1V portable Ordering provider: Sidney Woodward MD History: 83 years Female with . sob, hypoxia . Comparison: July 26, 2024 FINDINGS: MEDIASTINUM: The cardiac silhouette is not enlarged. Right bipolar pacemaker. LUNGS: No effusions or pneumothorax. Bilateral basal opacification suggestive of pneumonia. Underlyin g fibrotic changes. OTHER: No free air under the diaphragm. Degenerative changes of the spine. IMPRESSION: Bibasilar pneumonia. Underlying fibrotic changes. Reviewed, dictated and finalized at location A.
--- NOTE | ~2024-07-31 | US_ITS ---
Limited ABDOMINAL ULTRASOUND (Doppler ultrasound interrogation techniques used as needed for this exa m.) Ordering provider: Annette Funk History: . Elevated LFTs . Comparison: None. FINDINGS: PANCREAS: Partially visualized. Visualized portion is normal. PORTAL VEIN: Hepatopedal flow demonstrated. LIVER: Normal size and echotexture. The liver measures 16.8 cm. No focal hepatic lesions or perihepat ic fluid collections are identified. BILIARY DUCTS: No intra or extrahepatic biliary dilation. Common bile duct measures 2.9 mm in diamete r which is normal for patient's age. GALLBLADDER: Normal. No stones, sludge, gallbladder wall thickening or pericholecystic fluid. Negati ve sonographic Laureano's sign. Aorta: Normal. IVC: Normal. FREE FLUID: None visualized within the upper abdomen. Possible Small right pleural effusion IMPRESSION: Possible small right pleural effusion. Otherwise, normal limited abdominal ultrasound. Reviewed, dictated and finalized at location A. IMPRESSION: Possible small right pleural effusion. Otherwise, normal limited abdominal ultr asound.
--- NOTE | ~2024-07-31 | XR_ITS ---
Portable chest x-ray Comparison: 07/31/2024 Clinical History: Pulmonary edema Findings: Small right pleural effusion present with possible minimal left pleural effusion. There is mild to moderate pulmonary edema pattern. Probable underlying COPD. Cardiomediastinal silhouette is stable, with pacemaker device. Bones and soft tissues are unremarkable. Impression: Mild to moderate probable pulmonary edema pattern with small pleural effusions. Correlate clinically for pneumonia. Probable underlying COPD. Reviewed, dictated and finalized at [facility]. Impression: Mild to moderate probable pulmonary edema pattern with small pleural effusions. Correlate clinically for pneumonia. Probable underlying COPD.
--- NOTE | ~2024-07-31 | XR_ITS ---
EXAMINATION: XR barium swallow modified DATE: 08/05/2024 08:36 INDICATION: Choking when swallowing. TECHNIQUE: The patient was given barium-containing material of multiple consistencies to swallow by t marciano speech pathologist while I performed fluoroscopy. Fluoroscopy exposure time was 0.9 minutes. The n umber of fluoroscopy images saved to the PACS was 1. Dose-area product was 0.5 Gy-cm^2. FINDINGS: There is no laryngeal penetration or aspiration. IMPRESSION: 1. No laryngeal penetration or aspiration. 2. Please refer to the speech therapy report for recommendations. Reviewed, dictated and finalized at location A.
--- NOTE | ~2024-07-31 | XR_ITS ---
XR chest 1V portable 08/03/2024 10:15 Indication: CHF Procedure: AP portable chest Comparison: Comparison to multiple prior studies sequentially, with oldest reviewed study dated 07/07. Findings: Cardiomegaly. Mild pulmonary edema. Small pleural effusions. There is apical pleural thicke sonja/scarring. Pacemaker leads are stable. No pneumothorax. No acute osseous abnormality. Impression: 1: Cardiomegaly with mild interstitial edema. 2: Small pleural effusions. Reviewed, dictated and finalized at location B. Impression: 1: Cardiomegaly with mild interstitial edema. 2: Small pleural effusions.
--- NOTE | ~2024-07-31 | XR_ITS ---
XR chest 1V portable Ordering provider: Chase Shin MD History: 83 years Female with . chf . Comparison: August 03, 2024 FINDINGS: MEDIASTINUM: The cardiac silhouette is not enlarged. Right bipolar pacemaker. LUNGS: No pneumothorax. Minimal opacification in the right lung base is seen which may indicate atele ctasis versus pneumonia which is slightly improved compared to previous study. Fibrotic changes are a lso possible. Minimal effusion in the costophrenic angle cannot be excluded. Underlying emphysematous changes. OTHER: No free air under the diaphragm. Degenerative changes of the spine. IMPRESSION: Minimal opacification the right lung base which is slightly improved compared to previous study. Othe rwise, unchanged. Reviewed, dictated and finalized at location A. IMPRESSION: Minimal opacification the right lung base which is slightly improved compared t o previous study. Otherwise, unchanged.
--- NOTE | 2024-07-31 16:03 | PC.NURSE ---
EDP made aware of pt arrival and oxygen status. Dr. Woodward at bedside. Pt oxygen saturation on 15L non-rebreather maintaining 100%, VORB to change oxygen administration to 2L NC. Pt maintaining 96% on 2L NC.
--- NOTE | 2024-07-31 16:06 | ECG_ITS ---
Test Date: 2024-07-31 16:10:55 Measurements Intervals [place] Rate: 65 P: -82 [place]: 130 QRS: -66 QRSD: 112 T: 3 QT: 436 QTc: 457 Interpretive Statements Sinus rhythm with a first-degree AV block. POSSIBLE ANTERIOR MYOCARDIAL INFARCTION , OF INDETERMINATE AGE [30 ms Q WAVE IN V3/V4, OR R < 0.2 mV IN V4] Compared to ECG 07/26/2024 10:05:17 Myocardial infarct finding now present Atrial-paced complex(es) or rhythm no longer present Right bundle-branch block no longer present Electronically Signed On 08-01-2024 09:12:52 CDT by Niraj Forrester M.D.
--- NOTE | 2024-07-31 16:08 | ED.GENADULT ---
HPI - General Adult General Chief complaint: Weakness Stated complaint: lethargic Time Seen by Provider: 07/31/24 15:54 History of Present Illness HPI narrative: 83-year-old female presents emergency department for evaluation for worsening shortness of breath. Patient was discharged on 07/30 to her care facility. Patient was diagnosed with COPD CHF a multifocal pneumonia. Patient had been 85% on room air during her stay and had been on 2 L of oxygen by nasal cannula but at time of discharge she was not having any oxygen requirement. Patient had been treated with cefepime and azithromycin. Patient presents to ED complaint of worsening shortness of breath the patient was found to be 55% on room air. Patient was initially placed on non-rebreather but did improved to 96% on 2 L. Related Data Home Medications ?Medication ?Instructions ?Recorded ?Confirmed ?Last Taken ?Type cholecalciferol (vitamin D3) 25 1,000 unit PO DAILY 01/13/20 07/31/24 07/31/24 History mcg (1,000 unit) capsule hydralazine 50 mg tablet 50 mg PO ONCE PRN Hypertension 03/26/21 07/31/24 Unknown History rivaroxaban 15 mg tablet (Xarelto) 15 mg PO QPM 04/27/21 07/31/24 07/30/24 History buspirone 10 mg tablet 20 mg PO 0830,1330,1930 01/11/22 07/31/24 07/31/24 08:30 History carvedilol 25 mg tablet (Coreg) 12.5 mg PO Q12H 11/08/23 07/31/24 07/31/24 08:30 History cyclosporine 0.05 % eye drops 1 drp EACH EYE Q12H 11/08/23 07/31/24 07/31/24 History (Restasis MultiDose) flecainide 150 mg tablet 150 mg PO Q12H 11/08/23 07/31/24 07/31/24 History losartan 25 mg tablet 25 mg PO DAILY 11/08/23 07/31/24 07/31/24 History Allergies Allergy/AdvReac Type Severity Reaction Status Date / Time monosodium glutamate AdvReac Unknown Fatigued Verified 07/26/24 12:49 Review of Systems Review of Systems: All systems reviewed & are unremarkable except as noted in HPI and below PMFSH Past Medical History Medical History Diastolic dysfunction Transient ischemic attack At the age of 29, attributed to oral contraceptives. Chronic anticoagulation Anxiety Chronic obstructive pulmonary disease Related to significant secondhand smoke exposure. Dyslipidemia Left carotid bruit Unremarkable carotid Doppler ultrasounds on 09/09/2019. Eczema Paroxysmal atrial fibrillation Paroxysmal atrial fibrillation/atrial flutter. Maintained on flecainide, carvedilol, and rivaroxaban. Patient of Dr. Bharathi Higuera at [facility]. Hypertension Headache, migraine Arthritis Surgical History Surgical History History of permanent cardiac pacemaker placement History of cardiac radiofrequency ablation History of tubal ligation History of tonsillectomy History of appendectomy History of ventral hernia repair History of uterine suspension procedure History of eyelid surgery Family History Family History Mother Family history of kidney disease Family history of elevated blood lipids Acute myocardial infarction, Onset Age: 93 Family history of liver disease, Onset Age: 93 Family history of congestive heart failure Family history of chronic obstructive pulmonary disease Family history of renal failure, Onset Age: 93 Father Family history of migraine headaches Hypertension Grandparent Cerebrovascular accident Other Family history of cardiovascular disease Social History Social History Social History: Surrogate medical decision maker: Alcides Aaron, spouse. Code status: Full code. Smoking status: Never smoker Second hand tobacco smoke exposure: Yes Alcohol intake: never Substance use: never Substance use type: does not use Do You Feel Safe in your Home?: Yes Lack of Transportation: No Lack of Food: Never True Current Housing: I Have Housing Concerned About Future Housing: No Difficulty Paying Gas/Electric Bills: No Difficulty Paying for Meds: No Currently Unemployed: No Education: Bachelor's Degree Difficulty w/ Childcare or Family Care: No Additional living arrangements comments: . Lives with spouse in [place]. They have 2 children. 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 Spiritual care concerns: No Course Vital Signs Vital signs: Vital Signs Temperature 98 F 07/31/24 15:48 Pulse Rate 74 07/31/24 15:48 Respiratory Rate 25 H 07/31/24 15:48 Blood Pressure 124/60 07/31/24 15:48 Pulse Oximetry 60 L 07/31/24 15:48 Oxygen Delivery Room Air 07/31/24 15:48 Temperature 97.8 F 07/31/24 19:35 Pulse Rate 62 07/31/24 20:00 Respiratory Rate 18 07/31/24 19:35 Blood Pressure 127/65 07/31/24 19:35 Pulse Oximetry 100 07/31/24 20:00 Oxygen Delivery Nasal Cannula 07/31/24 20:00 Oxygen Flow Rate 4 07/31/24 20:00 Medical Decision Making MDM Narrative Medical decision making narrative: 83-year-old female presents emergency department for evaluation for worsening shortness of breath. Patient was discharged yesterday for pneumonia but presented emergency department with a pulse ox of 55% on room air. Patient was afebrile but does have a leukocytosis of 17.6 and hemoglobin of 8.8. Hemoglobin is similar to her baseline. Patient electrolytes are not far from her baseline. Creatinine is 1.17. Patient does have acute elevation of AST and ALT. T bili and alk-phos are not elevated. Patient was negative for influenza RSV and for COVID. Chest x-ray was concerning for pneumonia. CTA was negative for pulmonary embolism but was positive for pulmonary edema and pleural effusions. BNP was ordered. Due to concern for worsening pneumonia with her leukocytosis and recent diagnosis of pneumonia patient was started on cefepime and vanc. Differential Diagnosis Differential Diagnosis: COVID, RSV, influenza a, pneumonia, CHF, pulmonary edema, pulmonary effusion Vital Signs Vital Signs: Vital Signs Temperature 98 F 07/31/24 15:48 Pulse Rate 74 07/31/24 15:48 Respiratory Rate 25 H 07/31/24 15:48 Blood Pressure 124/60 07/31/24 15:48 Pulse Oximetry 60 L 07/31/24 15:48 Oxygen Delivery Room Air 07/31/24 15:48 Temperature 97.8 F 07/31/24 19:35 Pulse Rate 62 07/31/24 20:00 Respiratory Rate 18 07/31/24 19:35 Blood Pressure 127/65 07/31/24 19:35 Pulse Oximetry 100 07/31/24 20:00 Oxygen Delivery Nasal Cannula 07/31/24 20:00 Oxygen Flow Rate 4 07/31/24 20:00 Lab Data Lab results reviewed: Yes I reviewed the patient's lab results. 07/31/24 16:17 07/31/24 16:17 Labs: Lab Results 07/31/24 07/31/24 07/31/24 Range/Units 16:17 18:17 18:24 WBC 17.6 H (4.5-10.0) K/mm3 RBC 2.85 L (4.2-5.4) M/mm3 Hgb 8.8 L (12.0-15.0) g/dL Hct 27.5 L (37.0-47.0) % MCV 96.5 (80-100) fl MCH 30.9 (26-34) pg MCHC 32.0 (32-36) g/dl RDW 15.6 H (11.5-14.5) % Plt Count 302 (150-375) k/mm3 MPV 9.0 (7.4-10.4) fl Immature Gran % (Auto) 1.3 H (0-0.5) % Neut % (Auto) 84.2 H (45.5-73.1) % Lymph % (Auto) 8.9 L (18.3-44.2) % [place] % (Auto) 5.3 (2.6-8.5) % Eos % (Auto) 0.1 (0-4.4) % Baso % (Auto) 0.2 (0.2-1.2) % Lymph # (Auto) 1.56 (0.9-3.2) K/mm3 [place] # (Auto) 0.9 H (0.1-0.6) K/mm3 Eos # (Auto) 0.0 (0-0.3) K/mm3 Baso # (Auto) 0.0 (0.0-0.1) K/mm3 Abs Immat Gran (auto) 0.23 H (0.00-0.031) K/mm3 Absolute Neuts (auto) 14.8 H (1.3-6.7) K/mm3 Absolute Nucleated RBC 0.000 (0.0-0.012) K/mm3 Nucleated RBC % 0.0 (0.0-0.2) % PT 34.0 H (11.1-14.7) Seconds INR 3.3 APTT 43.7 H (22.3-36.8) Seconds Sodium 133 L (137-145) mmol/L Potassium 4.1 (3.4-5.0) mmol/L Chloride 93 L (98-107) mmol/L Carbon Dioxide 35 H (22-30) mmol/L Anion Gap 5 (4-12) mmol/L BUN 27 H D (7-17) mg/dL Creatinine 1.17 H (0.7-1.0) mg/dL Estim Creat Clear Calc 30 ml/min Estimated GFR 44 L (59 - ) Glucose 128 H (65-110) mg/dL Calcium 8.9 (8.4-10.2) mg/dL Total Bilirubin 0.7 (0.2-1.3) mg/dL AST 2702 H (14-36) U/L ALT 1210 H (6-35) U/L Alkaline Phosphatase 125 (38-126) U/L NT-Pro-B Natriuret Pep 6460 H (19.9-100) pg/mL Total Protein 6.0 L (6.3-8.2) g/dL Albumin 3.2 L (3.5-5.1) g/dL Nasal MRSA (PCR) Not detected (NOT DETECTE) Influenza A (RT-PCR) Negative (Negative) Influenza B (RT-PCR) Negative (Negative) RSV (RT-PCR) Negative (Negative) SARS-CoV-2 RNA (RT-PCR) Negative (Negative) Imaging Data Radiologist's impression: Impressions Chest X-Ray 07/31/24 16:42 IMPRESSION: Bibasilar pneumonia. Underlying fibrotic changes. Chest CTA 07/31/24 17:21 IMPRESSION: No pulmonary embolus. No thoracic aortic dissection. Redemonstration of advanced/severe pulmonary edema, as detailed above. Bilateral pleural effusions (right greater than left), decreased in size from previous examination. Discharge Plan Discharge Clinical Impression: Pneumonia, Hypoxia, Pulmonary edema Patient Disposition: Still a Patient Condition: Serious
[2024-07-31] MEDS: ALBUTEROL SULFATE NEB 2.5 MG/3 ML INH INHALATION (16:22)
[2024-07-31 16:29] LABS: Basophils Percent Auto 0.2 % (0.2-1.2); Eosinophils Percent Auto 0.1 % (0-4.4); Hematocrit 27.5 % (37.0-47.0); Hemoglobin 8.8 g/dL (12.0-15.0); Immature Granulocyte Absolute 0.23 K/mm3 (0.00-0.031); Immature Granulocyte Percent A 1.3 % (0-0.5); Lymphocytes Absolute Auto 1.56 K/mm3 (0.9-3.2); Lymphocytes Percent Auto 8.9 % (18.3-44.2); Mean Corpuscular Hemoglobin 30.9 pg (26-34); Mean Corpuscular Volume 96.5 fl (80-100); Monocytes Absolute Auto 0.9 K/mm3 (0.1-0.6); Monocytes Percent Auto 5.3 % (2.6-8.5); Neutrophils Absolute Auto 14.8 K/mm3 (1.3-6.7); Neutrophils Percent Auto 84.2 % (45.5-73.1); Platelet Count Result 302 k/mm3 (150-375); Red Blood Count 2.85 M/mm3 (4.2-5.4); Red Cell Distribution Width 15.6 % (11.5-14.5); White Blood Count 17.6 K/mm3 (4.5-10.0)
[2024-07-31 16:40] LABS: INR 3.3
[2024-07-31 16:41] LABS: Partial Thromboplastin Time 43.7 Seconds (22.3-36.8)
[2024-07-31 16:51] LABS: Albumin Level 3.2 g/dL (3.5-5.1); Alkaline Phosphatase 125 U/L (38-126); Anion Gap 5 mmol/L (4-12); Bilirubin,Total 0.7 mg/dL (0.2-1.3); Blood Urea Nitrogen 27 mg/dL (7-17); Calcium 8.9 mg/dL (8.4-10.2); Carbon Dioxide 35 mmol/L (22-30); Chloride 93 mmol/L (98-107); Estimated CRCL calculation 30 ml/min; Estimated Glomerular Filt Rate 44; Glucose 128 mg/dL (65-110); Potassium 4.1 mmol/L (3.4-5.0); Sodium 133 mmol/L (137-145)
[2024-07-31 17:00] LABS: Alanine Aminotransferase 1210 U/L (6-35)
[2024-07-31 17:05] LABS: Influenza A QL RT-PCR Negative (Negative); Influenza B QL RT-PCR Negative (Negative); RSV RNA, RT-PCR Negative (Negative); SARS-CoV-2 RNA PCR Negative (Negative)
--- OUTSIDE RECORDS SUMMARY | 2024-07-31 17:17 | XMS_ITS | Clinical Summary ---
Author Organization [facility] Address [address] [place] [address] Care Team Providers Care Plant Guard Name Role Phone Kristen Graf APRNNEW [facility] Primary Care Provider Source Comments [facility],non-owned Affiliates and Associated Physician Practices is amultiple site organization consisting of ambulatory clinics and hospital sitesin [place], [place], [place] and [place]. This disclosure is being madepursuant to the Care Everywhere program and may not contain all information available regarding this patient. Last updated 18.[facility] Allergies No known active allergies Medications * [...] 4 times daily 100 g 11 09/15/2023 Active losartan (Cozaar) 25 MG tabletIndications: Essential hypertension Take 1 (one) tablet by mouth once daily 90 tablet 3 09/21/2023 Active cycloSPORINE (Restasis) 0.05 % ophthalmic suspension Instill 1 (one) drop into both eyes 2 times daily Active ipratropium (Atrovent) 0.03 % nasal spray Avon 2 sprays into each nostril 2 times [...] 3 01/19/2024 Active flecainide (Tambocor) 150 MG tabletIndications: Typical [...] and evening meal 180 tablet 3 06/27/2024 Active Active Problems Patient Care Coordination No te Formatting of this note migh t be different from the original. Vice President Of Nursing - Dr Asaf Ramirez Problem Noted Date [...] [facility] [address] [facility] [place] [address] Mani Green RN Nausea 07/22/2024 Orders Only [facility] [address] [facility], [place] [address] Kristen Graf, JAYME-PURNIMA Leukocytosis, unspecified type ; Hyponatremia 07/19/2024 9:38 AM SHELL ASSEMBLER - 07/19/2024 11:59 PM SHELL ASSEMBLER Hospital Encounter [facility] DRAW STATION [address] [place] [address] Kristen Graf, JEFF Discharge Disposition: Home or Self Care 07/19/2024 9:30 AM SHELL ASSEMBLER Office Visit [facility] - Pulmonology [address] [place] [address] Jack Milian MD Abnormal CT lung screening (Primary Dx); Immunization counseling 07/19/2024 Travel 07/10/2024 Orders Only [facility] Ger[facility] [address] [place] [address] Kristen Graf, JEFF COVID-19 ; Pneumonia due to COVID-19 virus 07/10/2024 Telephone [facility] - Cardiology [address] [place] [phone] Mani Green, RN Question 07/05/2024 Telephone [facility] - Internal Med [facility] [place] [address] Kristen Graf, JEFF General (Hospitalized) 06/27/2024 Refill [facility] Cardiology [address] [place] [phone] Mani Green, MARKETING EDUCATION TEACHER REFILL 05/21/2024 1:10 AM SHELL ASSEMBLER Clinical Support [facility] - Cardiology [address] [place] [phone] SSS (sick sinus syndrome) from Last 3 Months Immunizations Name Administration Dates Next Due Covid Pfizer primary monoval ent 12+ yr 0.3mL Purple [...] Comments Blood Pressure 96/61 07/19/2024 9:02 AM SHELL ASSEMBLER Pulse 80 07/19/2024 9:02 AM SHELL ASSEMBLER Temperature 36.7 C (98.1 F) 03/28/2024 1:41 PM SHELL ASSEMBLER Respiratory Rate 17 07/19/2024 9:02 AM SHELL ASSEMBLER Oxygen Saturation 92% 07/19/2024 9:02 AM SHELL ASSEMBLER Inhaled Oxygen Concentration - - Weight 70.7 kg (155 lb 12.8 oz) 07/19/2024 9:02 AM SHELL ASSEMBLER Height 167.6 cm (5' 6 ) 07/19/2024 9:02 AM SHELL ASSEMBLER Body Mass Index 25.15 07/19/2024 9:02 AM SHELL ASSEMBLER Plan of Treatment Upcoming Encounters Date Type Department Care Team (Late st Contact Info) Description 08/02/2024 9:30 AM CDT Office Visit [facility] [address] [facility], [place] [address] Kristen Graf, WIRELESS FIELD TECHNICIAN-DRUM DRIER OPERATOR [address] [phone] 08/20/2024 1:10 AM CDT Clinical Support [facility] - Cardiology [address] [place] [phone] 10/10/2024 10:20 AM CDT Office Visit [facility] - Cardiology [address] [place] [phone] Bharathi Higuera MD [facility] [address] [address] 11/19/2024 1:10 AM CDT Clinical Support [facility] - Cardiology [address] [place] [phone] 01/24/2025 10:30 AM CDT Office Visit [facility] - Pulmonology [address] [place] [address], [place] [address] Jack iMlian MD [address] [place] [address] 2L DIV OF PULM/[place] [address] Health Maintenance Due Date Last Done Comments [...] last dose Medical Devices Implanted Type Area Sample Book Maker Device Identifier Shelf Expiration Date Model / Serial / Lot Lead Cp Nv Pace 52cm Strd Elut Pltn Amada - [id number] Implanted:Qty: 1 on 08/16/2021 by Bharathi Higuera MD at [facility] Right: Ventricle [employer] 04/13/2023 5076-52 / [id number] / Description:RV Lead Lead Cp Nv Pace 45cm Strd Elut Pltn Amada - [id number] Implanted:Qty: 1 on 08/16/2021 by Bharathi Higuera MD at [facility] Right: Atrium [employer] 05/06/2023 5076-45 / [id number] / Description:RA lead Pacemkr Rosette Wirelessly Crd - [id number] Implanted:Qty: 1 on 08/16/2021 by Bharathi Higuera MD at [facility] Right: Chest [employer] 01/09/2023 [id number] / [id number] / Description:ICD Procedures Procedure Name Priority Date/Time Associated Diagnosis Comments DIFFERENTIAL MANUAL Routine 07/19/2024 9 :46 AM SHELL ASSEMBLER COVID-19 Pneumonia due to COVID-19 virus CBC W AUTO DIFFERENTIAL Routine 07/19/2024 9:46 AM SHELL ASSEMBLER COVID-19 Pneumonia due to COVID-19 virus BASIC METABOLIC PANEL (CALCIUM TOTAL) Routine 07/19/2024 9:46 AM SHELL ASSEMBLER COVID-19 Pneumonia due to COVID-19 virus VA PM/ICD REMOTE TECH SERV Routine 05/26/2024 4:54 PM SHELL ASSEMBLER SSS (sick sinus syndrome) VA PM DEVICE INTERROGATE REMOTE Routine 05/26/2024 4:54 PM SHELL ASSEMBLER SSS (sick sinus syndrome) CARDIAC PROCEDURE ORDER 05/20/2024 DEXA BONE DENSITY AXIAL SKELETON Routine 06/17/2022 1:22 PM SHELL ASSEMBLER Primary osteoarthritis involving multiple joints Osteoporosis, unspecified osteoporosis type, unspecified pathological fracture presence from Last 3 Months or Most Recently Relevant to Health Maintenance Results * (ABNORMAL) DIFFERENTIAL MANUAL (07/19/2024 9:46 AM SHELL ASSEMBLER) Neutrophil % 81(H) 41 - 74 % 07/19/2024 10:57 AM [facility] Lymphocyte % 10(L) 17 - 47 % 07/19/2024 10:57 AM [facility] Monocyte % 7 3 - 11 % 07/19/2024 10:57 AM [facility] Eosinophil % 2 0 - 7 % 07/19/2024 10:57 AM [facility] Neutrophil Absolute 11.50(H) 1.60 - 7.50 x10E9/L 07/19/2024 10:57 AM [facility] Lymphocyte Absolute 1.42 1.00 - 4.40 x10E9/L 07/19/2024 10:57 AM [facility] Monocyte Absolute 0.99 0.15 - 1.00 x10E9/L 07/19/2024 10:57 AM [facility] Eosinophil Absolute 0.28 0.00 - 0.60 x10E9/L 07/19/2024 10:57 AM [facility] RBC Morphology NORMAL 07/19/2024 10:57 AM [facility] Blood BLOOD SPECIMEN / Unknown Lab Venipuncture / Unknown 07/19/2024 9:46 AM SHELL ASSEMBLER 07/19/2024 10:17 AM SHELL ASSEMBLER Kristen Graf WIRELESS FIELD TECHNICIAN-DRUM DRIER OPERATOR LAB - HEMATOLOG Y ORDERABLES [facility] [address] [place] [address], [facility] [phone] * (ABNORMAL) CBC W/ DIFFERENTIAL (07/19/2024 9:46 AM SHELL ASSEMBLER) WBC 14.2(H) 4.0 - 10.7 x10E9/L 07/19/2024 10:57 AM [facility] RBC Count 3.48(L) 3.90 - 5.20 x10E12/L 07/19/2024 10:57 AM [facility] Hemoglobin 10.8(L) 11.9 - 15.8 g/dL 07/19/2024 10:57 AM [facility] Hematocrit 32.9(L) 34.8 - 46.1 % 07/19/2024 10:57 AM [facility] MCV 94.5 80.0 - 98.0 fL 07/19/2024 10:57 AM [facility] MCH 31.0 26.7 - 33.6 pg 07/19/2024 10:57 AM [facility] MCHC 32.8 31.7 - 36.3 g/dL 07/19/2024 10:57 AM [facility] RDW-CV 15.9(H) 11.3 - 14.8 % 07/19/2024 10:57 AM [facility] Platelet Count 171 150 - 420 x10E9/L 07/19/2024 10:57 AM [facility] MPV 9.2 7.8 - 11.4 fL 07/19/2024 10:57 AM [facility] Blood BLOOD SPECIMEN / Unknown Lab Venipuncture / Unknown 07/19/2024 9:46 AM SHELL ASSEMBLER 07/19/2024 10:17 AM [facility] Kristen Graf WIRELESS FIELD TECHNICIAN-DRUM DRIER OPERATOR LAB - HEMATOLOG Y ORDERABLES [facility] [address] [place] [address], [facility] [phone] * (ABNORMAL) BASIC METABOLIC PANEL (CALCIUM TOTAL) (07/19/2024 9:46 AM [facility]) BUN 23 7 - 26 mg/dL 07/19/2024 10:53 AM [facility] Creatinine 0.89 0.56 - 0.96 mg/dL 07/19/2024 10:53 AM [facility] Sodium 140 136 - 145 mmol/L 07/19/2024 10:53 AM [facility] Potassium 3.4(L) 3.5 - 4.5 mmol/L 07/19/2024 10:53 AM [facility] Chloride 105 98 - 107 mmol/L 07/19/2024 10:53 AM [facility] CO2 27 22 - 29 mmol/L 07/19/2024 10:53 AM [facility] Glucose 149(H) 70 - 99 mg/dL 07/19/2024 10:53 AM [facility] Calcium 8.4 8.4 - 10.2 mg/dL 07/19/2024 10:53 AM [facility] Anion Gap 8 6 - 16 07/19/2024 10:53 AM [facility] BUN/Creatinine Ratio 26(H) 7 - 23 07/19/2024 10:53 AM [facility] Osmolality Calculated 296(H) 275 - 295 mOsm/kg 07/19/2024 10:53 AM [facility] eGFR by CKD-EPI 64(L) >=90 mL/min/1.7 3 m2 07/19/2024 10:53 AM [facility] Blood BLOOD SPECIMEN / Unknown Lab Venipuncture / Unknown 07/19/2024 9:46 AM SHELL ASSEMBLER 07/19/2024 10:17 AM SHELL ASSEMBLER Kristen Graf WIRELESS FIELD TECHNICIAN-DRUM DRIER OPERATOR LAB - CHEMISTRY ORDERABLES [facility] [address] [place] [address], [facility] [phone] * VA PM DEVICE INTERROGATE REMOTE, VA PM/ICD REMOTE TECH SERV (05/26/2024 4:54 PM SHELL ASSEMBLER) Narrative Nanette Aldridge MD - 05/26/2024 4:54 PM SHELL ASSEMBLER Nanette Aldridge MD 05/26/2024 4:57 PM Remote Interrogation: 05/20/2024 Pertinent Findings: Device function within normal limits. No events or therapy delivered. See below for details. Nanette Aldridge MD Cardiac Electrophysiology Nanette Aldridge MD PROCEDURE/MINOR SURG ICAL ORDERABLES * CARDIAC PROCEDURE ORDER (05/20/2024) Narrative 05/20/2024 Ordered by an unspecified provider. Scanned Document CARDIAC SERVICES ORD ERABLES * BONE DENSITY AXIAL SKELETON(1OR MORE SITES)[id number] (06/17/2022 1:22 PM SHELL ASSEMBLER) Anatomical Region Laterality Modality Other 06/20/2022 5:28 PM SHELL ASSEMBLER Narrative 06/20/2022 5:29 PM SHELL ASSEMBLER PROCEDURE: DEXA BONE DENSITY AXIAL SKELETON, DATE/TIME OF EXAM: 06/17/2022 1:23 PM, LOCATION [facility] INDICATION: M15.9: Primary osteoarthritis involving [...] SKELETON, DATE/TIME OF EXAM:06/17/2022 1:23 PM, LOCATION [facility] INDICATION: M15.9: Primary osteoarthritis involving [...] DO on 06/20/2022 5:29 PM Kristen Graf APRN-DRUM DRIER OPERATOR DEXA ORDERABLES from Last 3 Months or Most Recently Relevant to Health Maintenance Advance Directives * Full Code (Latest Code Status on File) Date Activated Date Inactivated Comments 07/03/2021 6:20 PM 07/04/2021 5:26 PM Care Teams Plant Guard Relationship Specialty Start Date End Date Kristen Graf, WIRELESS FIELD TECHNICIAN-DRUM DRIER OPERATOR [address] [address] PCP - General 05/24/21
--- OUTSIDE RECORDS SUMMARY | 2024-07-31 17:17 | XMS_ITS | Encounter Summary ---
Author Organization [facility] Address [address] [facility] [place] [address] Care Team Providers Care Fundraising Officer Name Role Phone Kristen Graf APRNPURNIMA Primary Care Provider Tracie Pritchett MD Primary Care Provider [phone] Kristen Graf [facility]NSHRIN[facility] Primary Care Provider Encounter Details Date Type Department Care Team (Late st Contact Info) Description 10/30/2020 Telephone [facility] [address] [place] [address] Ubaldo Salgado MD [address] [place] [address] Social History Tobacco Use Types Packs/Day Years [...] Please call her and explain. Thank you Gyala documented in this encounter Plan of Treatment Upcoming Encounters Date Type Department Care Team (Late st Contact Info) Description 08/02/2024 9:30 AM CDT [facility] [address] [place] [phone] Kristen Graf, DINING HOST-DIRECTOR OF INSTITUTIONAL SALES [address] [place] [phone] 08/20/2024 1:10 AM CDT Clinical Support [facility] - Cardiology [address] [address] 10/10/2024 10:20 AM CDT Office Visit [facility] - Cardiology [address] [address] Bharathi Higuera MD [facility] [address] [address] 11/19/2024 1:10 AM CDT Clinical Support [facility] - Cardiology [address] [address] 01/24/2025 10:30 AM CDT Office Visit [facility] - Pulmonology [address] [place] [address] Jack Milian MD [address] [place] [address] 2[address] DIV OF PULM/[place] [address] documented as of this encounter Visit Diagnoses Not on filedocumented in this encounter Care Teams Fundraising Officer Relationship Specialty Start Date End Date Kristen Graf APRN-DIRECTOR OF INSTITUTIONAL SALES PCP - General 04/27/20 05/19/21 Tracie Pritchett MD [address] [address] PCP - General Internal Medicine Geriatric Medicine 05/20/21 05/23/21 Kristen Graf APRN-DIRECTOR OF INSTITUTIONAL SALES [address] [address] PCP - General 05/24/21 documented as of this encounter
--- OUTSIDE RECORDS SUMMARY | 2024-07-31 17:17 | XMS_ITS | Continuity of Care Document ---
[facility] Address [address] [place] [address] Phone Care Team Providers Care Research Scientist Name Role Phone Conversion MD, Doctor Unavailable Unavailabl e Advance Directives Directive Yes / No Effective Date File Name No Information Encounters Encounter Description Practice Location Reason(s) For Visit Diagnoses Date Provider Providers Copied on Encounter [facility], [address], [place], [place], [address] , tel: [phone] Conversion Department No Information 7 1 Conversion Doctor. [address] [place] [address], [address], . [facility], [address], [place], [place], [address] , tel: [phone] [facility] GENERAL OSTEOARTHROSIS HYPERLIPIDEMIA NEC/NOSSCREEN MAL NEOP-RECTUM September- 0-200 7 Ramila Moss. [facility] [address], [place], [place], [address], . tel: [phone] [facility], [address], [place], [place], [address] , tel: [phone] Administration CHEST PAIN NECPURE HYPERCHOLESTER OLEM Dec-2 9-200 4 Ramila Moss. [address], [address], [place], [place], [address], [place]. tel: [phone] [facility], [address], [place], [place], [address] , tel: [phone] [facility] CHEST PAIN NOS Dec-2 0-200 4 Ramila Msos. [address], [address], [place], [place], [address], [place]. tel: [phone] [facility], [address], [place], [place], [address] , [place] tel: [phone] [facility] SCREEN-DIABETE S MELLITUSSYMPT FEM CLIMACT STATEASCVD Sep-2 3-200 3 Ramila Moss. [address], [address], [place], [place], [address], [place]. tel: [phone] [facility] [employer], [address], [place], [place], [address] , [place] tel: [phone] [facility] ACUTE BRONCHITIS Sep-1 2-200 3 Ramila Moss. [address], [address], [place], [place], [address], [place]. tel: [phone] [facility], [address], [place], [place], [address] , [place] tel: [phone] [facility] BACKACHE NOS Mar- 8-200 1 Ramila Moss. [facility] [address], [place], [place], [address], [place]. tel: [phone] [facility], [address], [place], [place], [address] , [place] tel: [phone] [facility] SCREEN MAL NEOP OTH SITE 6-200 0 Ramila Moss. [address], [place], [place], [address], [place]. tel: [phone] [facility], [address], [place], [place], [address] , [place] tel: [phone] [facility] PTOSIS OF EYELID NOSABDMNAL PAIN GENERALIZED September- 2-200 0 Ramila Moss. [address], [place], [place], [address], [place]. tel: [phone] [facility] [employer], [address], [place], [place], [address] , [place] tel: [phone] [facility] GENERAL MEDICAL EXAM NOSPALPITATION S 1-199 9 Ramila Moss. [address], [place], [place], [address], [place]. tel: [phone] Family History Family Member Type Diagnosis Age At Onset No Information Payers Payer name Insurance type Covered green party ID Authoriza tion(s) No Information Social [...]
--- OUTSIDE RECORDS SUMMARY | 2024-07-31 17:17 | XMS_ITS | Encounter Summary ---
Author Organization [facility] Health Address [address] [place] [address] Care Team Providers Care Calender Worker Helper Name Role Phone Kristen Graf APRN-BOX SORTER Primary Care Provider Reason for Visit * Reason Onset Date Comments Appointment 07/29/2022 Encounter Details Date Type Department Care Team (Late st Contact Info) Description 07/29/2022 Telephone [facility] [address] [place] [address] Dominic Hines MD [address] [place], [place] [phone] Appointment Social History Tobacco Use Types Packs/Day [...] Visit [facility] [address] [facility], [place] [address] Kristen Graf, ENVELOPE STUFFER-BOX SORTER [facility] [address] 08/20/2024 1:10 AM CDT [facility] [address] [address] 10/10/2024 10:20 AM CDT Office Visit [facility] [address] [address] Bharathi Higuera MD [facility] [address] [address] 11/19/2024 1:10 AM CDT Clinical Support [facility] [address] [place] [address] 01/24/2025 10:30 AM CDT Office Visit [facility] [address] [facility], [place] [address] Jack Milian MD [address] [facility] 2L DIV OF PULM/[place] [address] documented as of this encounter Visit Diagnoses Not on filedocumented in this encounter Care Teams Calender Worker Helper Relationship Specialty Start Date End Date Kristen Graf, ENVELOPE STUFFER-BOX SORTER [address] [facility] [address] [place] [phone] PCP - General 05/24/21 documented as of this encounter
--- OUTSIDE RECORDS SUMMARY | 2024-07-31 17:17 | XMS_ITS | Clinical Summary ---
Author Organization [facility] Address [address] [facility] [address] Phone Care Team Providers Care Insulator Helper Name Role Phone Minh Thornton MD Primary Care Provider [phone] Allergies No known active allergies Medications CALCIUM CARBONATE (CALCIUM 500 ORAL) Take by mouth. Activ e MULTIVITAMINS WITH FLUORIDE (MULTI-VITAMIN ORAL) Take by mouth. Activ e clobetasol (TEMOVATE) 0.05 % Lotion Apply to affected area. Active XIIDRA 5 % Dropperette 8 Active XARELTO 20 mg Tablet 8 Active vit C/E/Zn/gyroscopic instrument mechanic/lut/z ea/bio/saf (RETAINE VISION ORAL) Take by mouth. [...] on file Legal Sex Female 3:34 AM AIRWAYS CONTROL SPECIALIST Gender Identity Not on file Sexual Orientation Not on file Occupation Industry Job Start Date Job End Date Not on file Not on file Not on file Not on file Last Filed Vital Signs Vital Sign Reading Time Taken Comments Blood Pressure 122/78 03/19/2024 10:45 AM AIRWAYS CONTROL SPECIALIST Pulse - - Temperature - - Respiratory Rate - - Oxygen Saturation - - Inhaled Oxygen Concentration - - Weight 73 kg (161 lb) 03/19/2024 10:45 AM AIRWAYS CONTROL SPECIALIST Height 167.6 cm (5' 6 ) 03/19/2024 10:45 AM AIRWAYS CONTROL SPECIALIST Body Mass Index 25.99 03/19/2024 10:45 AM AIRWAYS CONTROL SPECIALIST Plan of Treatment Health Maintenance Due Date [...] (03/14/2024) Anatomical Region Laterality Modality Breast Bilateral Mammography Vero Rodriguez DO MAMMO ORDERABLES Final Result [...] [employer] PPO Care Teams Insulator Helper Relationship Specialty Start Date End Date Minh Thornton MD PCP - General Internal Medicine 01/01/15
--- OUTSIDE RECORDS SUMMARY | 2024-07-31 17:17 | XMS_ITS | Encounter Summary ---
Author Organization [facility] Health Address [address] [facility] [place] [address] Care Team Providers Care Director Clinical Information Services Name Role Phone Minh Thornton MD Primary Care Provider [phone] Kristen [facility] Primary Care Provider Tracie Pritchett MD Primary Care Provider [phone] Kristen Graf APRN-PINSETTER MECHANIC AUTOMATIC Primary Care Provider Encounter Details Date Type Department Care Team (Late st Contact Info) Description 03/10/2020 Telephone [facility] [address] [place] [address] Kristen Graf TOP DYEING MACHINE TENDER-PINSETTER MECHANIC AUTOMATIC [address] [phone] Social History Tobacco Use Types Packs/Day Years [...] at your convenience. Patient Call Back number: [phone] documented in this encounter Plan of Treatment Upcoming Encounters Date Type Department Care Team (Late st Contact Info) Description 08/02/2024 9:30 AM CDT Office Visit [facility] - Geriatrics [address] [facility], [place] [address] Kristen Graf, TOP DYEING MACHINE TENDER-[address] [address] 08/20/2024 1:10 AM CDT Clinical Support [facility] - Cardiology [address] [place] [phone] 10/10/2024 10:20 AM CDT Office Visit [facility] - Cardiology [address] [phone] Bharathi Higuera MD [facility] [address] [address] 11/19/2024 1:10 AM CDT Clinical Support [facility] [address] [place], [place] [address] [place] [address] 01/24/2025 10:30 AM CDT Office Visit [facility] [address] [facility] [place] [address] Jack Milian MD [address] [facility] 2L DIV OF PULM/[place] [address] documented as of this encounter Visit Diagnoses Not on filedocumented in this encounter Care Teams Director Clinical Information Services Relationship Specialty Start Date End Date Minh Thornton MD [address] [place] [address] 2 [place] [address] PCP - General 03/02/20 04/26/20 Kristen Graf, TOP DYEING MACHINE TENDER-PINSETTER MECHANIC AUTOMATIC [address] [place] [address] 2 [place] [address] PCP - General 04/27/20 05/19/21 Tracie Pritchett MD [address] [facility] [address] [place] [address] PCP - General Internal Medicine Geriatric Medicine 05/20/21 05/23/21 Kristen Graf, TOP DYEING MACHINE TENDER-PINSETTER MECHANIC AUTOMATIC [address] [facility] [address] [place] [address] PCP - General 05/24/21 documented as of this encounter
[2024-07-31 17:25] LABS: Aspartate Amino Transferase 2702 U/L (14-36)
[2024-07-31] MEDS: CEFEPIME 2 GM/NS 50 ML 2 GM/50 ML BAG IVPB (18:36)
[2024-07-31 18:42] LABS: NT Pro B Type Natriuretic Pept 6460 pg/mL (19.9-100)
[2024-07-31] MEDS: VANCOMYCIN 1,750 MG/NS 500 ML 1,750 MG/500 ML BAG 250 MG IVPB (19:19)
[2024-07-31 19:38] LABS: MRSA (PCR) NOT DETECTED (NOT DETECTE)
--- NOTE | 2024-07-31 19:40 | ADMGEN ---
This patient, Beth Aaron, was admitted to Medical Room 347-. Patient/family oriented to hospital policies and general routines including ID bracelet, bed and alarms, visiting hours, pain management, procedures, bathroom and other care routines, personal items, smoking policy, room service/diet, and visiting hours. Information on how to activate the Rapid Response Team has been discussed. Patient/Family are encouraged to report perceived risks to care and to ask questions if they do not understand what they are told or what they should do.
[2024-07-31 20:07] LABS: Add Urine Microscopic? YES; Appearance Urine Clear (Clear); Bacteria Urine None Seen /hpf; Bilirubin Urine Negative (Negative); Blood Urine 2+ (Negative); Color Urine Dark Yellow (Yellow); Glucose Urine UA Negative (Negative); Hyaline Casts Urine Present /lpf; Ketones Urine Trace mg/dL (Negative); Leukocyte Esterase Ur Negative LEU/UL (Negative); Nitrate Urine Negative (Negative); Non Pathogenic Casts >20; Protein Urine 1+ mg/dL (Negative); RBC Urine 0-2 /hpf (0-2); Specific Grav Ur > 1.045 (1.001-1.035); Squamous Epithelial Cell Urine Few /hpf (Few); Urobilinogen Urine 0.2 mg/dL (<2.0); pH Urine 5.5 (5.0-9.0)
--- NOTE | 2024-07-31 20:48 | PM.IMHP ---
H&P: HPI History of Present Illness Date/Time: 07/31/24 20:48 Chief Complaint: Lethargy Narrative: 83 y/o F presents here with lethargy, poor PO intake, and shortness of breath with PMH of acute diastolic dysfunction, TIA, COPD, paroxysmal AFib, hypertension. The patient presents here from home via EMS for further evaluation of fatigue, generalized weakness, poor p.o. intake, and shortness of breath. The patient was initially admitted from 07/03/24-07/08/24 at [facility] for COVID, pneumonia, peripheral edema with a normal echo, and transient urinary retention. She then returned on 07/26/2024 for generalized weakness, cough, and nausea. She did not have shortness of breath that time. She was admitted at [place] and treated for pneumonia and a COPD exacerbation. She had a home O2 evaluation which was negative. She was released on 07/30/2024 (yesterday). Returning today with recurrent shortness of breath, fatigue, poor p.o. intake. She was initially found to be 55% on room air with a could reading per the ED provider. She improved to 96% on 2L. Shortness of breath is accompanied by mild nausea. She denies fever, chills, body aches, chest pain, abdominal pain, vomiting, or diarrhea. Patient having difficult time describing symptoms and sequence of events. Initial VS at presentation: 98? F, HR 74, R 25, 60% on room air, 124/60. Now 100% on 4L NC. ED workup showed: WBC 17.6, hemoglobin 8.8 (8.7 day prior), INR 3.3, creatinine 1.17 and GFR 44, AST 2702, ALT 1210, UA showed a high specific gravity/1+ protein/trace ketones/2+ blood/6-10 WBC/no bacteria and few epithelial cells, viral PCR negative, MRSA negative. CXR showed bibasilar pneumonia and underlying fibrotic changes. Chest CTA showed no PE, no thoracic aortic dissection, redemonstration of advanced/severe pulmonary edema, bilateral pleural effusions (right greater than left) decrease in size from previous examination. Review of Systems Review of Systems: All systems reviewed & are unremarkable except as noted in HPI and below PMFSH Past Medical History Medical History Diastolic dysfunction Transient ischemic attack At the age of 29, attributed to oral contraceptives. Chronic anticoagulation Anxiety Chronic obstructive pulmonary disease Related to significant secondhand smoke exposure. Dyslipidemia Left carotid bruit Unremarkable carotid Doppler ultrasounds on 09/09/2019. Eczema Paroxysmal atrial fibrillation Paroxysmal atrial fibrillation/atrial flutter. Maintained on flecainide, carvedilol, and rivaroxaban. Patient of Dr. Bharathi Higuera at [facility]. Hypertension Headache, migraine Arthritis Surgical History Surgical History History of permanent cardiac pacemaker placement History of cardiac radiofrequency ablation History of tubal ligation History of tonsillectomy History of appendectomy History of ventral hernia repair History of uterine suspension procedure History of eyelid surgery Family History Family History Mother Family history of kidney disease Family history of elevated blood lipids Acute myocardial infarction, Onset Age: 93 Family history of liver disease, Onset Age: 93 Family history of congestive heart failure Family history of chronic obstructive pulmonary disease Family history of renal failure, Onset Age: 93 Father Family history of migraine headaches Hypertension Grandparent Cerebrovascular accident Other Family history of cardiovascular disease Social History Social History Social History: Surrogate medical decision maker: Alcides Aaron, spouse. Code status: Full code. Smoking status: Never smoker Second hand tobacco smoke exposure: Yes Alcohol intake: never Substance use: never Substance use type: does not use Do You Feel Safe in your Home?: Yes Lack of Transportation: No Lack of Food: Never True Current Housing: I Have Housing Concerned About Future Housing: No Difficulty Paying Gas/Electric Bills: No Difficulty Paying for Meds: No Currently Unemployed: No Education: Bachelor's Degree Difficulty w/ Childcare or Family Care: No Additional living arrangements comments: . Lives with spouse in [place]. They have 2 children. 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 Spiritual care concerns: No Meds Home Medications and Allergies Home Medications ?Medication ?Instructions ?Recorded ?Confirmed ?Type cholecalciferol (vitamin D3) 25 1,000 unit PO DAILY 01/13/20 07/31/24 History mcg (1,000 unit) capsule famotidine 20 mg tablet 20 mg PO Q12HR #60 tabs 01/09/21 07/31/24 Rx hydralazine 50 mg tablet 50 mg PO DAILY PRN Hypertension 03/26/21 07/31/24 History rivaroxaban 15 mg tablet (Xarelto) 15 mg PO QPM 04/27/21 07/31/24 History buspirone 10 mg tablet 20 mg PO 0830,1330,1930 01/11/22 07/31/24 History carvedilol 25 mg tablet (Coreg) 12.5 mg PO Q12H 11/08/23 07/31/24 History cyclosporine 0.05 % eye drops 1 drp EACH EYE Q12H 11/08/23 07/31/24 History (Restasis MultiDose) flecainide 150 mg tablet 150 mg PO Q12H 11/08/23 07/31/24 History losartan 25 mg tablet 25 mg PO DAILY 11/08/23 07/31/24 History furosemide 20 mg tablet (Lasix) 20 mg PO DAILY 30 days #30 tabs 07/08/24 07/31/24 Rx tamsulosin 0.4 mg capsule 0.4 mg PO QAM 30 days #30 caps 07/08/24 07/31/24 Rx benzonatate 100 mg capsule 100 mg PO TID PRN Cough #15 caps 07/30/24 07/31/24 Rx ferrous sulfate 325 mg (65 mg 325 mg PO BID #60 tabs 07/30/24 07/31/24 Rx iron) tablet,delayed release guaifenesin 600 mg tablet, 600 mg PO Q12HR #14 tabs 07/30/24 07/31/24 Rx extended release 12 hr (Mucus Relief ER) levofloxacin 750 mg tablet 750 mg PO DAILY #4 tabs 07/30/24 07/31/24 Rx sennosides 8.6 mg-docusate sodium 1 tab-cap PO HS #30 tabs 07/30/24 07/31/24 Rx 50 mg tablet (Senna with Docusate Sodium) Allergies Allergy/AdvReac Type Severity Reaction Status Date / Time monosodium glutamate AdvReac Unknown Fatigued Verified 07/26/24 12:49 Vital Signs Vital Signs - 24 hr 07/31/24 15:48 07/31/24 16:03 07/31/24 16:03 Temperature 98 F Pulse Rate 74 Respiratory Rate 25 H Blood Pressure 124/60 Pulse Oximetry 60 L 60 L 100 Oxygen Delivery Room Air Room Air Non-Rebreather Mask Oxygen Flow Rate 15 07/31/24 16:03 07/31/24 16:22 07/31/24 16:31 Temperature Pulse Rate 66 64 Respiratory Rate 23 H 23 H Blood Pressure Pulse Oximetry 96 Oxygen Delivery Nasal Cannula Oxygen Flow Rate 2 07/31/24 18:30 07/31/24 19:35 07/31/24 20:00 Temperature 97.8 F Pulse Rate 67 84 Respiratory Rate 18 Blood Pressure 161/70 H 127/65 Pulse Oximetry 99 93 100 Oxygen Delivery Nasal Cannula Oxygen Flow Rate 4 Exam Const: General: comfortable and no acute distress Other: , female, elderly, mildly ill-appearing HENMT: Face/Nose/Sinus: Normal nares present Mouth: Yes moist mucous membranes Eyes: General: appearance normal, both eyes and all related structures Sclera: sclerae normal Pupils: Equal, round and reactive pupils present EOM: EOMs intact bilaterally Resp: Effort & Inspection: normal respiratory effort Other: Crackles in all lung cho. No wheezing. Cardio: Rate: regular rate Rhythm: regular rhythm Other: S1-S2 present without murmur, rub, ectopy GI: Other: Abdomen soft, nondistended. +LUQ pain. Normoactive bowel sounds in all quadrants. Skin: General skin exam: normal color and no rashes or lesions noted Wounds: no wounds Neuro: Speech: normal speech Motor exam (neuro): 5/5 motor strength present throughout Sensory Exam: normal sensation Other: A&O x4 Extrem: General: edema Other: 2+ pitting edema to BLE, symmetric. Psych: Mental Status: mental status grossly normal Affect: normal affect Other: Good insight and judgment, very pleasant H&P: Results Labs Labs: Short CBC 07/31/24 Range/Units 16:17 WBC 17.6 H (4.5-10.0) K/mm3 Hgb 8.8 L (12.0-15.0) g/dL Hct 27.5 L (37.0-47.0) % Plt Count 302 (150-375) k/mm3 BMP 07/31/24 16:17 Sodium 133 L Potassium 4.1 Chloride 93 L Carbon Dioxide 35 H BUN 27 H D Creatinine 1.17 H Glucose 128 H Calcium 8.9 Liver Function 07/31/24 Range/Units 16:17 Total Bilirubin 0.7 (0.2-1.3) mg/dL AST 2702 H (14-36) U/L ALT 1210 H (6-35) U/L Alkaline Phosphatase 125 (38-126) U/L Albumin 3.2 L (3.5-5.1) g/dL Urine 07/31/24 Range/Units 19:42 Urine Color Dark yellow (Yellow) Urine Appearance Clear (Clear) Urine pH 5.5 (5.0-9.0) Ur Specific Ambler > 1.045 H (1.001-1.035) Urine Protein 1+ H (Negative) mg/dL Urine Glucose (UA) Negative (Negative) mg/dL Assessment and Plan Assessment and plan (1) Hypoxia: Code(s): R09.02 - Hypoxemia Status: Acute Assessment and Plan: - CXR: Bibasilar pneumonia. Underlying fibrotic changes. - chest CTA: No pulmonary embolus. No thoracic aortic dissection. Re-demonstration of advanced/severe pulmonary edema, as detailed above. Bilateral pleural effusions (right greater than left), decreased in size from previous examination. - pulmonology consulted for recurrent hypoxia and persistent infiltrates - check apnea link for night time O2 needs - restart cefepime and azithromycin, vancomycin also restarted (2) Pneumonia: Qualifiers: Pneumonia type: due to unspecified organism Code(s): J18.9 - Pneumonia, unspecified organism Status: Acute Assessment and Plan: - risk factors and complicating factors. Has been treated for pneumonia 2 times in the last 2 months. - started on HAP tx: Cefepime, azithromycin, and vancomycin - MRSA PCR not detected on 07/31/2024 - Viral PCR negative - sputum culture, if obtainable - currently requiring supplemental O2, 4L NC (3) Diastolic dysfunction: Code(s): I51.89 - Other ill-defined heart diseases Status: Acute Assessment and Plan: - BNP 6460, previously 1480 in 07/28 - most recent echo (07/04/24): Normal biventricular size and systolic function, moderate concentric left ventricular hypertrophy, no significant valvular disease. - currently on: Lasix 20 mg daily, increase to 40 IV daily - monitor I&Os and daily weights - trend renal function (4) Transaminitis: Code(s): R74.01 - Elevation of levels of liver transaminase levels Status: Acute Assessment and Plan: - AST 2702, ALT 1210, total bilirubin 0.7, alk-phos 125 on 07/31/2024 Previous: AST 29, ALT 24, total bilirubin 0.6, alk-phos 100 on 07/30/2024 - check hepatitis panel, CK, lipase - check RUQ ultrasound - trend (5) Hypertension: Qualifiers: Hypertension type: unspecified Qualified Code(s): I10 - Essential (primary) hypertension Code(s): I10 - Essential (primary) hypertension Status: Chronic Assessment and Plan: - chronic, currently 127/65 - continue home medications: losartan, flecainide, hydralazine p.r.n., carvedilol - monitor Plan PT/OT eval and treat ordered, patient is severely weak. Suspect deconditioning from recent illness. Diet: Heart healthy GI Prophylaxis: Not currently indicated DVT Prophylaxis: Xarelto Lines: Peripheral Code Status: Full code Quality VTE Prophylaxis VTE prophylaxis: pharmacologic ordered Hospitalist MIPS Advance Care Plan I have confirmed that the patient's Advanced Care Plan is present, code status is documented, or surrogate decision maker is listed in patient medical record.: Yes Medication Reconciliation I have utilized all available resources to obtain, update and review the patients current medications (includes all prescriptions, OTC, herbals, cannabis, and nutritional supplements).: Yes
[2024-07-31 21:53] LABS: Creatine Kinase 43 U/L (30-135)
[2024-07-31 22:02] LABS: Bilirubin,Total 0.5 mg/dL (0.2-1.3)
[2024-07-31 22:09] LABS: Alanine Aminotransferase 1028 U/L (6-35); Aspartate Amino Transferase 2143 U/L (14-36)
[2024-07-31 22:12] LABS: Albumin Level 2.9 g/dL (3.5-5.1); Alkaline Phosphatase 112 U/L (38-126)
[2024-08-01] VITALS (23 sets, daily range): BP systolic 104–126; BP diastolic 43–62; PULSE 60–75; RESP 14–18; TEMP 36.2–36.4; O2SAT 93–99
[2024-08-01] MEDS: carvediloL 12.5 MG TABLET PO ×3 (00:13→20:46)
[2024-08-01] MEDS: FLECAINIDE ACETATE 50 MG TABLET 150 MG PO ×3 (00:14→20:45)
[2024-08-01] MEDS: ACETAMINOPHEN 325 MG TABLET 650 MG PO ×2 (00:14→17:15)
[2024-08-01] MEDS: AZITHROMYCIN 500 MG/NS 250 ML 500 MG/250 ML BAG 250 MG IVPB (01:22)
[2024-08-01 02:40] LABS: Lipase 27 U/L (23-300)
[2024-08-01 02:41] LABS: Estimated CRCL calculation 33 ml/min; Estimated Glomerular Filt Rate 49
[2024-08-01] MEDS: IPRATROPIUM 0.5 MG/ALBUTEROL SULFATE 2.5 MG AMPUL.NEB 3 ML INHALATION ×4 (03:00→23:19)
[2024-08-01] MEDS: CEFEPIME 2 GM/NS 50 ML 2 GM/50 ML BAG IVPB (05:51)
[2024-08-01] MEDS: CHOLECALCIFEROL 1,000 UNITS TABLET 1000 UNITS PO (09:24)
[2024-08-01] MEDS: TAMSULOSIN HCL 0.4 MG CAPSULE PO (09:24)
[2024-08-01] MEDS: FUROSEMIDE INJ 40 MG/4 ML VIAL IV PUSH (09:25)
[2024-08-01] MEDS: LOSARTAN POTASSIUM 25 MG TABLET PO (09:25)
[2024-08-01] MEDS: cycloSPORINE 0.4 ML OPHTH SOLUTION 1 DROP EACH EYE ×2 (09:25→20:46)
[2024-08-01] MEDS: busPIRone HCL 10 MG TABLET 20 MG PO ×3 (09:25→18:40)
[2024-08-01] MEDS: FAMOTIDINE 20 MG TABLET PO ×2 (09:25→20:45)
[2024-08-01] MEDS: guaiFENesin 12 HR 600 MG TABCR PO ×2 (09:25→20:45)
[2024-08-01] MEDS: FERROUS SULFATE 325 MG TABLET DR PO ×2 (09:46→17:13)
--- NOTE | 2024-08-01 09:50 | P.PNIM_ITS ---
Progress Note: A&P Assessment and Plan (1) Diastolic dysfunction: Code(s): I51.89 - Other ill-defined heart diseases Status: Acute Assessment and Plan: Acute on chronic - BNP 6460, previously 1480 in 07/28 - most recent echo (07/04/24): Normal biventricular size and systolic function, moderate concentric left ventricular hypertrophy, no significant valvular disease. - currently on: Lasix 20 mg daily, increase to 40 IV daily - monitor I&Os and daily weights - trend renal function Cardiology consulted pending recommendations (2) Pneumonia: Qualifiers: Pneumonia type: due to unspecified organism Code(s): J18.9 - Pneumonia, unspecified organism Status: Acute Assessment and Plan: No pneumonia seen on CT, pulmonary edema -stop Cefepime, azithromycin, and vancomycin per pulmonology recommendations - MRSA PCR not detected on 07/31/2024 - Viral PCR negative (3) Hypoxia: Code(s): R09.02 - Hypoxemia Status: Acute Assessment and Plan: Secondary to pulmonary edema - chest CTA: No pulmonary embolus. No thoracic aortic dissection. Re-demonstration of advanced/severe pulmonary edema, Bilateral pleural effusions (right greater than left), decreased in size from previous examination. - pulmonology consulted recommendations for Cardiology consult and discontinue antibiotics and steroids. (4) Transaminitis: Code(s): R74.01 - Elevation of levels of liver transaminase levels Status: Acute Assessment and Plan: On admission- AST 2702, ALT 1210, total bilirubin 0.7, alk-phos 125 on 07/31/2024 hepatitis panel pending CK, lipase within normal limits RUQ ultrasound normal liver CMP in the a.m. GI consulted pending recommendations (5) TRISTIN (acute kidney injury): Code(s): N17.9 - Acute kidney failure, unspecified Status: Acute Assessment and Plan: Improving No history of CKD, creatinine on admission 1.17 DC IV hydration due to pulmonary edema Daily BMP (6) Hypertension: Qualifiers: Hypertension type: unspecified Qualified Code(s): I10 - Essential (primary) hypertension Code(s): I10 - Essential (primary) hypertension Status: Chronic Assessment and Plan: - chronic, currently 127/65 - continue home medications: losartan, flecainide, hydralazine p.r.n., carvedilol - monitor (7) Leukocytosis: Code(s): D72.829 - Elevated white blood cell count, unspecified Status: Acute Assessment and Plan: WBC on admission 17.[address] shows pulmonary edema, no PE, no pneumonia UA negative for infection Blood cultures pending No signs of soft tissue infection Antibiotics for pneumonia been discontinued per pulmonary's recommendations Will monitor leukocytosis CRP pending Hepatitis pending Plan PT/OT eval and treat ordered, patient is severely weak. Suspect deconditioning from recent illness. Diet: Heart healthy GI Prophylaxis: Not currently indicated DVT Prophylaxis: Xarelto Lines: Peripheral Code Status: Full code Time Spent With Patient Time with patient: Greater than 35 minutes Subjective Date/time seen: 08/01/24 09:50 Interval history: 83 y/o F presents here with lethargy, poor PO intake, and shortness of breath with PMH of acute diastolic dysfunction, TIA, COPD, paroxysmal AFib, hypertension. Patient states she is feels slightly better today, now on 3 L nasal cannula Review of Systems Review of Systems: All systems reviewed & are unremarkable except as noted in HPI and below Exam Narrative: General: well appearing, appears stated age. HEENT: normocephalic, atraumatic. Mucous membranes moist. EOMI, PERRLA, bilateral sclera anicteric, no conjunctival injection. Neck supple without JVD, lymphadenopathy, or bruit. Respiratory: clear to ascultation bilaterally. No rales/rhonic/wheezes. Cardiovascular: Regular rate and rhythm, normal S1-S2 upon ascultation. No murmurs, rubs, or clicks. PMI is nondisplaced, capillary refill less than 3 second. Abdomen: Distended, firm, tender to palpation, round, no pulsatile masses,. No rebound, no guarding. No CVA tenderness, no hepatosplenomegaly. Bowel sounds present to all four quadrants. No high pitch or tinkling sounds, resonant to percussion. Extremities: No cyanosis, clubbing,. Pulses are palpable 2/2. Active ROM to all four extremities. 2+ pitting edema to BLE Neuro: Alert and orientated x 4. PERRLA. Cranial nerves 2-12 intact without focal deficit. Skin: Warm, dry, and intact, without rash, erythema, or lesion. Psych: pleasant, cooperative, normal speech, normal affect, no hallucinations, no dysarthia Objective Data Vital Signs Vital Signs: Vital Signs - 24 hr 07/31/24 15:48 07/31/24 16:03 07/31/24 16:03 Temperature 98 F Pulse Rate 74 Respiratory Rate 25 H Blood Pressure 124/60 Pulse Oximetry 60 L 60 L 100 Oxygen Delivery Room Air Room Air Non-Rebreather Mask Oxygen Flow Rate 15 07/31/24 16:03 07/31/24 16:22 07/31/24 16:31 Temperature Pulse Rate 66 64 Respiratory Rate 23 H 23 H Blood Pressure Pulse Oximetry 96 Oxygen Delivery Nasal Cannula Oxygen Flow Rate 2 07/31/24 18:30 07/31/24 19:35 07/31/24 20:00 Temperature 97.8 F Pulse Rate 67 84 Respiratory Rate 18 Blood Pressure 161/70 H 127/65 Pulse Oximetry 99 93 100 Oxygen Delivery Nasal Cannula Oxygen Flow Rate 4 07/31/24 20:00 08/01/24 00:00 08/01/24 03:01 Temperature Pulse Rate 62 61 Respiratory Rate Blood Pressure Pulse Oximetry 96 Oxygen Delivery Nasal Cannula Oxygen Flow Rate 3 08/01/24 03:01 08/01/24 03:07 08/01/24 04:00 Temperature Pulse Rate 60 63 60 Respiratory Rate 14 14 Blood Pressure Pulse Oximetry Oxygen Delivery Oxygen Flow Rate 08/01/24 05:08 08/01/24 09:15 08/01/24 09:26 Temperature 97.4 F L Pulse Rate 60 75 72 Respiratory Rate 17 16 Blood Pressure 126/62 Pulse Oximetry 99 Oxygen Delivery Oxygen Flow Rate 08/01/24 09:39 08/01/24 09:46 Temperature Pulse Rate 72 Respiratory Rate Blood Pressure Pulse Oximetry 99 Oxygen Delivery Nasal Cannula Oxygen Flow Rate 3 Intake/Output Intake/Output: Intake & Output 07/29/24 07/30/24 07/31/24 08/01/24 23:59 23:59 23:59 23:59 Intake Total 550 300 Output Total 300 Balance 550 0 Meds/Results Medications: Active Medications Generic Name Dose Route Start Last Admin Trade Name Freq PRN Reason Stop Dose Admin Acetaminophen 650 mg 07/31/24 23:43 08/01/24 00:14 Acetaminophen 325 Mg Tablet PO 650 mg Q6H PRN Administration Mild Pain (1-3) or Fever Albuterol/Ipratropium 3 ml 08/01/24 02:00 08/01/24 09:15 Ipratropium 0.5 Mg/Albuterol Sulfate 2.5 Mg Ampul.Neb 3 Ml INHALATION 3 ml Q6HRT MARTIN Administration Benzonatate 100 mg 07/31/24 23:44 Benzonatate 100 Mg Capsule PO TID PRN Cough Buspirone HCl 20 mg 08/01/24 08:30 08/01/24 09:25 Buspirone Hcl 10 Mg Tablet PO 20 mg 0830,1330,1930 MARTIN Administration Carvedilol 12.5 mg 07/31/24 23:45 08/01/24 09:26 Carvedilol 12.5 Mg Tablet PO 12.5 mg Q12HR MARTIN Administration Cyclosporine 1 drop 08/01/24 09:00 08/01/24 09:25 Cyclosporine 0.4 Ml Ophth Solution EACH EYE 1 drop Q12HR MARTIN Administration Famotidine 20 mg 08/01/24 09:00 08/01/24 09:25 Famotidine 20 Mg Tablet PO 20 mg Q12HR MARTIN Administration Ferrous Sulfate 325 mg 08/01/24 09:00 08/01/24 09:46 Ferrous Sulfate [address] PO 325 mg BID MARTIN Administration Flecainide Acetate 150 mg 08/01/24 00:05 08/01/24 09:46 Flecainide Acetate 50 Mg Tablet PO 150 mg Q12HR MARTIN Administration Furosemide 40 mg 08/01/24 09:00 08/01/24 09:25 Furosemide Inj 40 Mg/4 Ml Vial IV PUSH 40 mg DAILY MARTIN Administration Guaifenesin 600 mg 08/01/24 09:00 08/01/24 09:25 Guaifenesin 12 Hr 600 Mg Tabcr PO 600 mg Q12HR MARTIN Administration Hydralazine HCl 50 mg 08/01/24 01:02 Hydralazine Hcl 25 Mg Tablet PO DAILY PRN Hypertension Cefepime HCl 2 gm in 50 mls @ 100 mls/hr 07/31/24 18:00 08/01/24 06:21 Maxipime 2 Gm/Ns 50 Ml IVPB Infused Q12H MARTIN Infusion Azithromycin 500 mg in 250 mls @ 250 mls/hr 08/01/24 01:00 08/01/24 02:22 Zithromax IVPB Infused Q24H MARTIN Infusion Losartan Potassium 25 mg 08/01/24 09:00 08/01/24 09:25 Losartan Potassium 25 Mg Tablet PO 25 mg DAILY MARTIN Administration Rivaroxaban 15 mg 08/01/24 18:00 Rivaroxaban 15 Mg Tablet PO QPM MARTIN Senna/Docusate Sodium 1 tab 08/01/24 21:00 Senna/Docusate Sodium Tablet PO HS MARTIN Tamsulosin HCl 0.4 mg 08/01/24 09:00 08/01/24 09:24 Tamsulosin Hcl 0.4 Mg Capsule PO 0.4 mg QAM MARTIN Administration Vitamin D 1,000 units 08/01/24 09:00 08/01/24 09:24 Cholecalciferol 1,000 Units Tablet PO 1,000 units DAILY MARTIN Administration Radiology Results: ITS Impressions Chest X-Ray 07/31/24 16:42 IMPRESSION: Bibasilar pneumonia. Underlying fibrotic changes. Chest CTA 07/31/24 17:21 IMPRESSION: No pulmonary embolus. No thoracic aortic dissection. Redemonstration of advanced/severe pulmonary edema, as detailed above. Bilateral pleural effusions (right greater than left), decreased in size from previous examination. Abdomen Ultrasound 08/01/24 08:44 IMPRESSION: Possible small right pleural effusion. Otherwise, normal limited abdominal ultrasound. Labs Labs: Laboratory Results - last 24 hr 07/31/24 07/31/24 07/31/24 16:17 18:17 18:24 WBC 17.6 H RBC 2.85 L Hgb 8.8 L Hct 27.5 L MCV 96.5 MCH 30.9 MCHC 32.0 RDW 15.6 H Plt Count 302 MPV 9.0 Immature Gran % (Auto) 1.3 H Neut % (Auto) 84.2 H Lymph % (Auto) 8.9 L Coal % (Auto) 5.3 Eos % (Auto) 0.1 Baso % (Auto) 0.2 Lymph # (Auto) 1.56 Coal # (Auto) 0.9 H Eos # (Auto) 0.0 Baso # (Auto) 0.0 Abs Immat Gran (auto) 0.23 H Absolute Neuts (auto) 14.8 H Absolute Nucleated RBC 0.000 Nucleated RBC % 0.0 PT 34.0 H INR 3.3 APTT 43.7 H Sodium 133 L Potassium 4.1 Chloride 93 L Carbon Dioxide 35 H Anion Gap 5 BUN 27 H D Creatinine 1.17 H Estim Creat Clear Calc 30 Estimated GFR 44 L Glucose 128 H Calcium 8.9 Total Bilirubin 0.7 Direct Bilirubin AST 2702 H ALT 1210 H Alkaline Phosphatase 125 Total Creatine Kinase NT-Pro-B Natriuret Pep 6460 H Total Protein 6.0 L Albumin 3.2 L Lipase Urine Color Urine Appearance Urine pH Ur Specific [place] Urine Protein Urine Glucose (UA) Urine Ketones Ur Blood (Man) Urine Nitrate Urine Bilirubin Urine Urobilinogen Leukocyte Esterase Rfl Urine RBC Urine WBC Ur Squamous Epith Cells Urine Bacteria Urine Casts Hyaline Casts Nasal MRSA (PCR) Not detected Influenza A (RT-PCR) Negative Influenza B (RT-PCR) Negative RSV (RT-PCR) Negative SARS-CoV-2 RNA (RT-PCR) Negative 07/31/24 07/31/24 08/01/24 19:42 21:38 02:14 WBC RBC Hgb Hct MCV MCH MCHC RDW Plt Count MPV Immature Gran % (Auto) Neut % (Auto) Lymph % (Auto) Coal % (Auto) Eos % (Auto) Baso % (Auto) Lymph # (Auto) Coal # (Auto) Eos # (Auto) Baso # (Auto) Abs Immat Gran (auto) Absolute Neuts (auto) Absolute Nucleated RBC Nucleated RBC % PT INR APTT Sodium Potassium Chloride Carbon Dioxide Anion Gap BUN Creatinine 1.07 H Estim Creat Clear Calc 33 Estimated GFR 49 L Glucose Calcium Total Bilirubin 0.5 Direct Bilirubin 0.0 AST 2143 H ALT 1028 H Alkaline Phosphatase 112 Total Creatine Kinase 43 NT-Pro-B Natriuret Pep Total Protein 6.0 L Albumin 2.9 L Lipase 27 Urine Color Dark yellow Urine Appearance Clear Urine pH 5.5 Ur Specific [place] > 1.045 H Urine Protein 1+ H Urine Glucose (UA) Negative Urine Ketones Trace H Ur Blood (Man) 2+ H Urine Nitrate Negative Urine Bilirubin Negative Urine Urobilinogen 0.2 Leukocyte Esterase Rfl Negative Urine RBC 0-2 Urine WBC 6-10 H Ur Squamous Epith Cells Few Urine Bacteria None seen Urine Casts >20 Hyaline Casts Present Nasal MRSA (PCR) Influenza A (RT-PCR) Influenza B (RT-PCR) RSV (RT-PCR) SARS-CoV-2 RNA (RT-PCR) Quality VTE Prophylaxis VTE prophylaxis: pharmacologic ordered
--- NOTE | 2024-08-01 10:17 | PM.CNPUL ---
Assessment and Plan Assessment and plan (1) Acute respiratory failure with hypoxia: Code(s): J96.01 - Acute respiratory failure with hypoxia Status: Acute Assessment and Plan: This 83-year-old female was hospitalized with respiratory failure, primarily hypoxemic respiratory failure, characterized by bilateral pulmonary infiltrates and bilateral pleural effusions, which began approximately one month ago when the patient initially presented with hypoxemic respiratory failure and tested positive for COVID-19. The initial chest CT revealed extensive bilateral infiltrates and bilateral pleural effusions, with a BNP mildly elevated at around 1000. Since then, the patient has exhibited partial clearing of the bilateral infiltrates and a decrease in the size of the bilateral pleural effusions. The most recent CT showed mostly faded infiltrates bilaterally, with a distribution similar to the initial chest CT performed one month ago when respiratory failure started. Likewise, the pleural effusions have decreased in size. During this hospitalization, the BNP was significantly elevated at over 6000. The patient also has highly elevated liver enzymes with a normal CPK, the etiology of which remains unclear. Over the past month, the patient has received treatment for congestive heart failure, pneumonia with various antibiotics, and COVID-19 infection with remdesivir and dexamethasone during the initial hospitalization, as well as treatment for COPD. Although some findings on the chest imaging, such as bilateral pleural effusions, could be attributed to congestive heart failure, the chronicity and similar distribution of the bilateral infiltrates, along with their faded characteristics seen on the last chest CT, raise the possibility that the initial respiratory failure was secondary to COVID-19 infection, with superimposed congestive heart failure. Chronic interstitial lung disease, such as hypersensitivity pneumonitis, is unlikely, as the patient has no recent history of exposure to organic agents. The patient currently has no symptoms suggestive of a lower respiratory tract infection. The elevated WBC is of unclear etiology, but the patient was discharged home on steroids three days ago. Alternatively, the elevated WBC could be related to another disease, as the patient also has elevated liver enzymes. Plan: I recommend discontinuing antibiotics, especially given the evidence of liver injury, and observing the patient for signs of a respiratory infection. We will continue treatment for congestive heart failure using gentle diuretics. A workup for the elevated liver enzymes is necessary. I will continue to follow the patient along with you. (2) Pulmonary edema: Code(s): J81.1 - Chronic pulmonary edema Status: Acute (3) Hypoxia: Code(s): R09.02 - Hypoxemia Status: Acute (4) Paroxysmal atrial fibrillation: Code(s): I48.0 - Paroxysmal atrial fibrillation Status: Chronic (5) Personal history of COVID-19: Code(s): Z86.16 - Personal history of COVID-19 Status: Acute (6) Liver enzyme elevation: Code(s): R74.8 - Abnormal levels of other serum enzymes Status: Acute History of Present Illness History of Present Illness Consult date: 08/01/24 Chief complaint: Pulmonary edema, Pneumonia, Hypoxia Narrative: This is a consultation for respiratory failure. This report is based on information obtained from the patient's chart and from speaking with the patient, who is a poor historian. The patient has no prior history of lung disease. She has a history of atrial fibrillation and pacemaker implantation, and she is chronically on treatment for atrial fibrillation. Over the last month, she has been hospitalized three times with more or less the same symptoms, including shortness of breath and weakness. Approximately one month ago, she tested positive for COVID-19 infection, while chest imaging studies, including a chest CT, showed bilateral pulmonary infiltrates with bilateral pleural effusions. In fact, the chest CT on July 04 showed extensive infiltrates, with significant improvement of bilateral pulmonary infiltrates noted four days later on chest X-ray. Apparently, the patient received treatment for congestive heart failure and possible pneumonia, as well as for COVID-19 infection with dexamethasone and remdesivir. Subsequent hospitalizations also showed radiographic evidence of pulmonary edema, partially cleared with pleural effusions again noted. During these hospitalizations, the patient received treatment with various antibiotics for possible pneumonia, as well as treatment for congestive heart failure and COPD. During the last hospitalization, she was discharged home on treatment for congestive heart failure and COPD with prednisone 40 mg daily for five days. The patient was discharged home two days ago on July 30. She returned one day later with shortness of breath, weakness, and poor oral intake. She was found to have hypoxemia on room air, but improved on 2 liters/minute. The patient had no symptoms of fever, chills, chest pain, or hemoptysis. Upon evaluation with CTPA, she was again found to have bilateral pulmonary infiltrates and bilateral pleural effusions consistent with pulmonary edema, which was significantly improved compared to the severe pulmonary edema noted one month ago. She had moderate leukocytosis and tested negative for common viruses. A BNP is elevated over 6000. Liver enzymes are significantly elevated, which is a new finding. Previous testing for urine antigens for common bacterial infections was negative. The patient is again receiving treatment with short-acting nebulized medications, presumably for COPD, antibiotics for a lower respiratory tract infection, and treatment for chronic atrial fibrillation and congestive heart failure. Upon questioning, the patient denied having been exposed to organic agents at home. She is a never smoker and has no recent travel history. Review of Systems Review of Systems: All systems reviewed & are unremarkable except as noted in HPI and below (HPI and below) [facility], LAT[facility] Past Medical History Medical History Diastolic dysfunction Transient ischemic attack At the age of 29, attributed to oral contraceptives. Chronic anticoagulation Anxiety Chronic obstructive pulmonary disease Related to significant secondhand smoke exposure. Dyslipidemia Left carotid bruit Unremarkable carotid Doppler ultrasounds on 09/09/2019. Eczema Paroxysmal atrial fibrillation Paroxysmal atrial fibrillation/atrial flutter. Maintained on flecainide, carvedilol, and rivaroxaban. Patient of Dr. Bharathi Higuera at [facility]. Hypertension Headache, migraine Arthritis Surgical History Surgical History History of permanent cardiac pacemaker placement History of cardiac radiofrequency ablation History of tubal ligation History of tonsillectomy History of appendectomy History of ventral hernia repair History of uterine suspension procedure History of eyelid surgery Family History Family History Mother Family history of kidney disease Family history of elevated blood lipids Acute myocardial infarction, Onset Age: 93 Family history of liver disease, Onset Age: 93 Family history of congestive heart failure Family history of chronic obstructive pulmonary disease Family history of renal failure, Onset Age: 93 Father Family history of migraine headaches Hypertension Grandparent Cerebrovascular accident Other Family history of cardiovascular disease Social History Social History Social History: Surrogate medical decision maker: Alcides Aaron, spouse. Code status: Full code. Smoking status: Never smoker Second hand tobacco smoke exposure: Yes Alcohol intake: never Substance use: never Substance use type: does not use Do You Feel Safe in your Home?: Yes Lack of Transportation: No Lack of Food: Never True Current Housing: I Have Housing Concerned About Future Housing: No Difficulty Paying Gas/Electric Bills: No Difficulty Paying for Meds: No Currently Unemployed: No Education: Bachelor's Degree Difficulty w/ Childcare or Family Care: No Additional living arrangements comments: . Lives with spouse in [place]. They have 2 children. 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 Spiritual care concerns: No Meds Home Medications and Allergies Home Medications ?Medication ?Instructions ?Recorded ?Confirmed ?Type cholecalciferol (vitamin D3) 25 1,000 unit PO DAILY 01/13/20 07/31/24 History mcg (1,000 unit) capsule famotidine 20 mg tablet 20 mg PO Q12HR #60 tabs 01/09/21 07/31/24 Rx hydralazine 50 mg tablet 50 mg PO DAILY PRN Hypertension 03/26/21 07/31/24 History rivaroxaban 15 mg tablet (Xarelto) 15 mg PO QPM 04/27/21 07/31/24 History buspirone 10 mg tablet 20 mg PO 0830,1330,1930 01/11/22 07/31/24 History carvedilol 25 mg tablet (Coreg) 12.5 mg PO Q12H 11/08/23 07/31/24 History cyclosporine 0.05 % eye drops 1 drp EACH EYE Q12H 11/08/23 07/31/24 History (Restasis MultiDose) flecainide 150 mg tablet 150 mg PO Q12H 11/08/23 07/31/24 History losartan 25 mg tablet 25 mg PO DAILY 11/08/23 07/31/24 History furosemide 20 mg tablet (Lasix) 20 mg PO DAILY 30 days #30 tabs 07/08/24 07/31/24 Rx tamsulosin 0.4 mg capsule 0.4 mg PO QAM 30 days #30 caps 07/08/24 07/31/24 Rx benzonatate 100 mg capsule 100 mg PO TID PRN Cough #15 caps 07/30/24 07/31/24 Rx ferrous sulfate 325 mg (65 mg 325 mg PO BID #60 tabs 07/30/24 07/31/24 Rx iron) tablet,delayed release guaifenesin 600 mg tablet, 600 mg PO Q12HR #14 tabs 07/30/24 07/31/24 Rx extended release 12 hr (Mucus Relief ER) levofloxacin 750 mg tablet 750 mg PO DAILY #4 tabs 07/30/24 07/31/24 Rx sennosides 8.6 mg-docusate sodium 1 tab-cap PO HS #30 tabs 07/30/24 07/31/24 Rx 50 mg tablet (Senna with Docusate Sodium) Allergies Allergy/AdvReac Type Severity Reaction Status Date / Time monosodium glutamate AdvReac Unknown Fatigued Verified 07/26/24 12:49 Vital Signs Vital Signs - 24 hr 07/31/24 15:48 07/31/24 16:03 07/31/24 16:03 Temperature 36.6 C Pulse Rate 74 Respiratory Rate 25 H Blood Pressure 124/60 Pulse Oximetry 60 L 60 L 100 Oxygen Delivery Room Air Room Air Non-Rebreather Mask Oxygen Flow Rate 15 07/31/24 16:03 07/31/24 16:22 07/31/24 16:31 Temperature Pulse Rate 66 64 Respiratory Rate 23 H 23 H Blood Pressure Pulse Oximetry 96 Oxygen Delivery Nasal Cannula Oxygen Flow Rate 2 07/31/24 18:30 07/31/24 19:35 07/31/24 20:00 Temperature 36.6 C Pulse Rate 67 84 Respiratory Rate 18 Blood Pressure 161/70 H 127/65 Pulse Oximetry 99 93 100 Oxygen Delivery Nasal Cannula Oxygen Flow Rate 4 07/31/24 20:00 08/01/24 00:00 08/01/24 03:01 Temperature Pulse Rate 62 61 Respiratory Rate Blood Pressure Pulse Oximetry 96 Oxygen Delivery Nasal Cannula Oxygen Flow Rate 3 08/01/24 03:01 08/01/24 03:07 08/01/24 04:00 Temperature Pulse Rate 60 63 60 Respiratory Rate 14 14 Blood Pressure Pulse Oximetry Oxygen Delivery Oxygen Flow Rate 08/01/24 05:08 08/01/24 09:15 08/01/24 09:26 Temperature 36.3 C L Pulse Rate 60 75 72 Respiratory Rate 17 16 Blood Pressure 126/62 Pulse Oximetry 99 Oxygen Delivery Oxygen Flow Rate 08/01/24 09:39 08/01/24 09:46 Temperature Pulse Rate 72 Respiratory Rate Blood Pressure Pulse Oximetry 99 Oxygen Delivery Nasal Cannula Oxygen Flow Rate 3 Exam Narrative: GENERAL APPEARANCE: Well developed, well nourished, alert and cooperative, and appears to be in no acute distress while on supplemental oxygen via nasal cannula SKIN: Inspection of the skin reveals no rashes, ulcerations or petechiae. HEENT: Sclerae anicteric and conjunctivae pink and moist. Extraocular movements were intact and pupils were equal, round, and reactive to light. The oral mucosa, hard and soft palate, tongue and posterior pharynx were normal. NECK: Supple. There was no thyroid enlargement, and no tenderness, or masses were felt. LUNGS: Ray crackles at bases posteriorly no wheezing CARDIAC: There was a regular rate and rhythm without any murmurs, gallops, rubs. ABDOMEN: Soft and nontender with normal bowel sounds. There was no organomegaly. LYMPH NODES: No lymphadenopathy was appreciated in the neck. EXTREMITIES: No cyanosis, clubbing; trace pedal edema left lower extremity. NEUROLOGIC: Alert and oriented x 3. Normal affect. Results Laboratory Findings 07/31/24 16:17 08/01/24 02:14 ABG, PT/INR, D-dimer: PT/INR, D-dimer PT 34.0 Seconds (11.1-14.7) H 07/31/24 16:17 INR 3.3 07/31/24 16:17 Abnormal lab findings: Abnormal Labs 07/31/24 07/31/24 07/31/24 16:17 18:17 19:42 WBC 17.6 H RBC 2.85 L Hgb 8.8 L Hct 27.5 L RDW 15.6 H Immature Gran % (Auto) 1.3 H Neut % (Auto) 84.2 H Lymph % (Auto) 8.9 L [place] # (Auto) 0.9 H Abs Immat Gran (auto) 0.23 H Absolute Neuts (auto) 14.8 H PT 34.0 H APTT 43.7 H Sodium 133 L Chloride 93 L Carbon Dioxide 35 H BUN 27 H D Creatinine 1.17 H Estimated GFR 44 L Glucose 128 H AST 2702 H ALT 1210 H NT-Pro-B Natriuret Pep 6460 H Total Protein 6.0 L Albumin 3.2 L Ur Specific [place] > 1.045 H Urine Protein 1+ H Urine Ketones Trace H Ur Blood (Man) 2+ H Urine WBC 6-10 H 07/31/24 08/01/24 21:38 02:14 WBC RBC Hgb Hct RDW Immature Gran % (Auto) Neut % (Auto) Lymph % (Auto) [place] # (Auto) Abs Immat Gran (auto) Absolute Neuts (auto) PT APTT Sodium Chloride Carbon Dioxide BUN Creatinine 1.07 H Estimated GFR 49 L Glucose AST 2143 H ALT 1028 H NT-Pro-B Natriuret Pep Total Protein 6.0 L Albumin 2.9 L Ur Specific [place] Urine Protein Urine Ketones Ur Blood (Man) Urine WBC
[2024-08-01] MEDS: SODIUM CHLORIDE 0.9% IV 1,000 ML 75 ML IV CONT (11:05)
[2024-08-01] MEDS: RIVAROXABAN 15 MG TABLET PO (17:13)
[2024-08-01 17:44] LABS: CRP 12.5 mg/dL (<1.0)
[2024-08-01] MEDS: SENNA/DOCUSATE SODIUM TABLET 1 TAB PO (20:45)
[2024-08-02] VITALS (14 sets, daily range): BP systolic 102–107; BP diastolic 46–47; PULSE 51–65; RESP 14–16; TEMP 36.2–36.3; O2SAT 94–98
[2024-08-02 05:52] LABS: Basophils Percent Auto 0.4 % (0.2-1.2); Eosinophils Absolute Auto 0.1 K/mm3 (0-0.3); Eosinophils Percent Auto 1.4 % (0-4.4); Hematocrit 28.2 % (37.0-47.0); Hemoglobin 8.8 g/dL (12.0-15.0); Immature Granulocyte Absolute 0.18 K/mm3 (0.00-0.031); Immature Granulocyte Percent A 1.9 % (0-0.5); Lymphocytes Percent Auto 15.9 % (18.3-44.2); Mean Corpuscular HGB Conc 31.2 g/dl (32-36); Mean Corpuscular Hemoglobin 30.8 pg (26-34); Mean Corpuscular Volume 98.6 fl (80-100); Mean Platelet Volume 8.7 fl (7.4-10.4); Monocytes Absolute Auto 0.9 K/mm3 (0.1-0.6); Monocytes Percent Auto 9.8 % (2.6-8.5); Neutrophils Absolute Auto 6.7 K/mm3 (1.3-6.7); Neutrophils Percent Auto 70.6 % (45.5-73.1); Nucleated Red Blood Cells Perc 0.2 % (0.0-0.2); Platelet Count Result 332 k/mm3 (150-375); Red Blood Count 2.86 M/mm3 (4.2-5.4); Red Cell Distribution Width 15.4 % (11.5-14.5); White Blood Count 9.4 K/mm3 (4.5-10.0)
[2024-08-02 06:10] LABS: Alanine Aminotransferase 731 U/L (6-35); Albumin Level 2.8 g/dL (3.5-5.1); Alkaline Phosphatase 116 U/L (38-126); Anion Gap 4 mmol/L (4-12); Aspartate Amino Transferase 640 U/L (14-36); Bilirubin,Total 0.5 mg/dL (0.2-1.3); Blood Urea Nitrogen 20 mg/dL (7-17); Calcium 8.6 mg/dL (8.4-10.2); Carbon Dioxide 38 mmol/L (22-30); Chloride 96 mmol/L (98-107); Estimated CRCL calculation 39 ml/min; Estimated Glomerular Filt Rate 60; Glucose 92 mg/dL (65-110); Potassium 3.8 mmol/L (3.4-5.0); Sodium 138 mmol/L (137-145)
[2024-08-02 06:41] LABS: Hepatitis B Surface Antigen Negative (Negative)
[2024-08-02 06:46] LABS: HAV RESULT Negative (Negative); Hepatitis B Core IgM Result Negative (Negative)
[2024-08-02 06:58] LABS: Hepatitis C Virus Antibody Negative (Negative)
--- NOTE | 2024-08-02 07:40 | P.PNIM_ITS ---
Progress Note: A&P Assessment and Plan (1) Diastolic dysfunction: Code(s): I51.89 - Other ill-defined heart diseases Status: Acute Assessment and Plan: Acute on chronic - BNP 6460, previously 1480 in 07/28 - most recent echo (07/04/24): Normal biventricular size and systolic function, moderate concentric left ventricular hypertrophy, no significant valvular disease. - currently on: Lasix 20 mg daily, increase to 40 IV daily - monitor I&Os and daily weights - trend renal function Cardiology consulted pending recommendations (2) Pneumonia: Qualifiers: Pneumonia type: due to unspecified organism Code(s): J18.9 - Pneumonia, unspecified organism Status: Acute Assessment and Plan: No pneumonia seen on CT, pulmonary edema -stop Cefepime, azithromycin, and vancomycin per pulmonology recommendations - MRSA PCR not detected on 07/31/2024 - Viral PCR negative (3) Hypoxia: Code(s): R09.02 - Hypoxemia Status: Acute Assessment and Plan: Secondary to pulmonary edema - chest CTA: No pulmonary embolus. No thoracic aortic dissection. Re-demonstration of advanced/severe pulmonary edema, Bilateral pleural effusions (right greater than left), decreased in size from previous examination. - pulmonology consulted recommendations for Cardiology consult and discontinue antibiotics and steroids. (4) Transaminitis: Code(s): R74.01 - Elevation of levels of liver transaminase levels Status: Acute Assessment and Plan: On admission- AST 2702, ALT 1210, total bilirubin 0.7, alk-phos 125 on 07/31/2024 hepatitis panel pending CK, lipase within normal limits RUQ ultrasound normal liver CMP in the a.m. GI consulted pending recommendations (5) TRISTIN (acute kidney injury): Code(s): N17.9 - Acute kidney failure, unspecified Status: Acute Assessment and Plan: Improving No history of CKD, creatinine on admission 1.17 DC IV hydration due to pulmonary edema Daily BMP (6) Hypertension: Qualifiers: Hypertension type: unspecified Qualified Code(s): I10 - Essential (primary) hypertension Code(s): I10 - Essential (primary) hypertension Status: Chronic Assessment and Plan: - chronic, currently 127/65 - continue home medications: losartan, flecainide, hydralazine p.r.n., carvedilol - monitor (7) Leukocytosis: Code(s): D72.829 - Elevated white blood cell count, unspecified Status: Acute Assessment and Plan: WBC on admission 17.6, 9.4 on 08/[address] shows pulmonary edema, no PE, no pneumonia UA negative for infection Blood cultures preliminary results showed no initial growth No signs of soft tissue infection Antibiotics for pneumonia been discontinued per pulmonary's recommendations Will monitor leukocytosis CRP 12.5 Hepatitis negative (8) Constipation: Qualifiers: Constipation type: unspecified constipation type Qualified Code(s): K59.00 - Constipation, unspecified Code(s): K59.00 - Constipation, unspecified Status: Acute Assessment and Plan: - Polyethylene Glycol 3350 ordered PRN Plan PT/OT eval and treat ordered, patient is severely weak. Suspect deconditioning from recent illness. Diet: Heart healthy GI Prophylaxis: Not currently indicated DVT Prophylaxis: Xarelto Lines: Peripheral Code Status: Full code Time Spent With Patient Time: Subjective Date/time seen: 08/02/24 07:40 Interval history: 83 y/o F presents here with lethargy, poor PO intake, and shortness of breath with PMH of acute diastolic dysfunction, TIA, COPD, paroxysmal AFib, hypertension. 08/02/24 Patient is sitting comfortably in bed upon examination. She denies any chest pain, SOB, n/v, or abdominal pain at this time. Pulmonology in room at time of examination, recommends continued monitoring of pt without ABX. Still pending GI and Cardio consult for transaminitis and diastolic dysfunction respectively. Pt otherwise stable and has no complaints at this time. Still pending PT/OT eval. Review of Systems Review of Systems: All systems reviewed & are unremarkable except as noted in HPI and below Exam Narrative: General: well appearing, appears stated age. HEENT: normocephalic, atraumatic. Mucous membranes moist. EOMI, PERRLA, bilateral sclera anicteric, no conjunctival injection. Neck supple without JVD, lymphadenopathy, or bruit. Respiratory: clear to ascultation bilaterally. No rales/rhonic/wheezes. Cardiovascular: Regular rate and rhythm, normal S1-S2 upon ascultation. No murmurs, rubs, or clicks. PMI is nondisplaced, capillary refill less than 3 second. Abdomen: Distended, firm, tender to palpation, round, no pulsatile masses,. No rebound, no guarding. No CVA tenderness, no hepatosplenomegaly. Bowel sounds present to all four quadrants. No high pitch or tinkling sounds, resonant to percussion. Extremities: No cyanosis, clubbing,. Pulses are palpable 2/2. Active ROM to all four extremities. 2+ pitting edema to BLE Neuro: Alert and orientated x 4. PERRLA. Cranial nerves 2-12 intact without focal deficit. Skin: Warm, dry, and intact, without rash, erythema, or lesion. Psych: pleasant, cooperative, normal speech, normal affect, no hallucinations, no dysarthia Const: General: comfortable and no acute distress Other: , female, elderly, mildly ill-appearing HENMT: Face/Nose/Sinus: Normal nares present Mouth: Yes moist mucous membranes Eyes: General: appearance normal, both eyes and all related structures Sclera: sclerae normal Pupils: Equal, round and reactive pupils present EOM: EOMs intact bilaterally Resp: Effort & Inspection: normal respiratory effort Other: Crackles in all lung cho. No wheezing. Cardio: Rate: regular rate Rhythm: regular rhythm Other: S1-S2 present without murmur, rub, ectopy GI: Other: Abdomen soft, nondistended. +LUQ pain. Normoactive bowel sounds in all quadrants. Skin: General skin exam: normal color and no rashes or lesions noted Wounds: no wounds Neuro: Cranial nerves: Yes Equal, round and reactive pupils present Speech: normal speech Motor exam (neuro): 5/5 motor strength present throughout Sensory Exam: normal sensation Other: A&O x4 Extrem: General: edema Other: 2+ pitting edema to BLE, symmetric. Psych: Mental Status: mental status grossly normal Affect: normal affect Other: Good insight and judgment, very pleasant Objective Data Vital Signs Vital Signs: Vital Signs - 24 hr 08/01/24 08:00 08/01/24 08:00 08/01/24 09:15 Temperature Pulse Rate 60 65 75 Respiratory Rate 16 16 Blood Pressure Pulse Oximetry 99 Oxygen Delivery Nasal Cannula Oxygen Flow Rate 1 08/01/24 09:26 08/01/24 09:39 08/01/24 09:46 Temperature Pulse Rate 72 72 Respiratory Rate Blood Pressure Pulse Oximetry 99 Oxygen Delivery Nasal Cannula Oxygen Flow Rate 3 08/01/24 12:00 08/01/24 13:22 08/01/24 13:24 Temperature Pulse Rate 60 60 Respiratory Rate 16 Blood Pressure Pulse Oximetry 99 Oxygen Delivery Nasal Cannula Oxygen Flow Rate 3 08/01/24 13:31 08/01/24 14:00 08/01/24 14:21 Temperature 97.2 F L Pulse Rate 65 62 Respiratory Rate 16 18 Blood Pressure 104/43 L Pulse Oximetry 96 96 Oxygen Delivery Nasal Cannula Oxygen Flow Rate 1 08/01/24 16:07 08/01/24 20:00 08/01/24 20:19 Temperature 97.5 F L Pulse Rate 60 63 61 Respiratory Rate 18 Blood Pressure 119/55 L Pulse Oximetry 98 Oxygen Delivery Oxygen Flow Rate 08/01/24 20:45 08/01/24 20:46 08/01/24 23:20 Temperature Pulse Rate 63 63 63 Respiratory Rate 16 Blood Pressure Pulse Oximetry Oxygen Delivery Oxygen Flow Rate 08/01/24 23:22 08/02/24 00:00 08/02/24 04:00 Temperature Pulse Rate 63 60 60 Respiratory Rate 16 Blood Pressure Pulse Oximetry 93 Oxygen Delivery Nasal Cannula Oxygen Flow Rate 1 Intake/Output Intake/Output: Intake & Output 07/30/24 07/31/24 08/01/24 08/02/24 23:59 23:59 23:59 23:59 Intake Total 550 780 Output Total 2200 300 Balance 550 -1420 -300 Meds/Results Medications: Active Medications Generic Name Dose Route Start Last Admin Trade Name Freq PRN Reason Stop Dose Admin Acetaminophen 650 mg 07/31/24 23:43 08/01/24 17:15 Acetaminophen 325 Mg Tablet PO 650 mg Q6H PRN Administration Mild Pain (1-3) or Fever Albuterol/Ipratropium 3 ml 08/01/24 02:00 08/01/24 23:19 Ipratropium 0.5 Mg/Albuterol Sulfate 2.5 Mg Ampul.Neb 3 Ml INHALATION 3 ml Q6HRT MARTIN Administration Benzonatate 100 mg 07/31/24 23:44 Benzonatate 100 Mg Capsule PO TID PRN Cough Buspirone HCl 20 mg 08/01/24 08:30 08/01/24 18:40 Buspirone Hcl 10 Mg Tablet PO 20 mg 0830,1330,1930 MARTIN Administration Carvedilol 12.5 mg 07/31/24 23:45 08/01/24 20:46 Carvedilol 12.5 Mg Tablet PO 12.5 mg Q12HR MARTIN Administration Cyclosporine 1 drop 08/01/24 09:00 08/01/24 20:46 Cyclosporine 0.4 Ml Ophth Solution EACH EYE 1 drop Q12HR MARTIN Administration Famotidine 20 mg 08/01/24 09:00 08/01/24 20:45 Famotidine 20 Mg Tablet PO 20 mg Q12HR MARTIN Administration Ferrous Sulfate 325 mg 08/01/24 09:00 08/01/24 17:13 Ferrous Sulfate [address] PO 325 mg BID MARTIN Administration Flecainide Acetate 150 mg 08/01/24 00:05 08/01/24 20:45 Flecainide Acetate 50 Mg Tablet PO 150 mg Q12HR MARTIN Administration Furosemide 40 mg 08/01/24 09:00 08/01/24 09:25 Furosemide Inj 40 Mg/4 Ml Vial IV PUSH 40 mg DAILY MARTIN Administration Guaifenesin 600 mg 08/01/24 09:00 08/01/24 20:45 Guaifenesin 12 Hr 600 Mg Tabcr PO 600 mg Q12HR MARTIN Administration Hydralazine HCl 50 mg 08/01/24 01:02 Hydralazine Hcl 25 Mg Tablet PO DAILY PRN Hypertension Losartan Potassium 25 mg 08/01/24 09:00 08/01/24 09:25 Losartan Potassium 25 Mg Tablet PO 25 mg DAILY MARTIN Administration Perflutren Lipid Microsphere 0 ml 08/01/24 14:13 Perflutren Lipid Microspheres 1.5 Ml Vial Diluted To 10 Ml Total Volume IV PUSH 08/04/24 14:13 ONCE PRN adequate visualization Protocol Rivaroxaban 15 mg 08/01/24 18:00 08/01/24 17:13 Rivaroxaban 15 Mg Tablet PO 15 mg QPM MARTIN Administration Senna/Docusate Sodium 1 tab 08/01/24 21:00 08/01/24 20:45 Senna/Docusate Sodium Tablet PO 1 tab HS MARTIN Administration Tamsulosin HCl 0.4 mg 08/01/24 09:00 08/01/24 09:24 Tamsulosin Hcl 0.4 Mg Capsule PO 0.4 mg QAM MARTIN Administration Vitamin D 1,000 units 08/01/24 09:00 08/01/24 09:24 Cholecalciferol 1,000 Units Tablet PO 1,000 units DAILY MARTIN Administration Radiology Results: ITS Impressions Chest CTA 07/31/24 17:21 IMPRESSION: No pulmonary embolus. No thoracic aortic dissection. Redemonstration of advanced/severe pulmonary edema, as detailed above. Bilateral pleural effusions (right greater than left), decreased in size from previous examination. Abdomen Ultrasound 08/01/24 08:44 IMPRESSION: Possible small right pleural effusion. Otherwise, normal limited abdominal ultrasound. Chest X-Ray 08/02/24 06:35 Impression: Mild to moderate probable pulmonary edema pattern with small pleural effusions. Correlate clinically for pneumonia. Probable underlying COPD. Labs Labs: Laboratory Results - last 24 hr 08/01/24 08/02/24 17:11 05:38 WBC 9.4 RBC 2.86 L Hgb 8.8 L Hct 28.2 L MCV 98.6 MCH 30.8 MCHC 31.2 L RDW 15.4 H Plt Count 332 MPV 8.7 Immature Gran % (Auto) 1.9 H Neut % (Auto) 70.6 Lymph % (Auto) 15.9 L [place] % (Auto) 9.8 H Eos % (Auto) 1.4 Baso % (Auto) 0.4 Lymph # (Auto) 1.50 [place] # (Auto) 0.9 H Eos # (Auto) 0.1 Baso # (Auto) 0.0 Abs Immat Gran (auto) 0.18 H Absolute Neuts (auto) 6.7 Absolute Nucleated RBC 0.020 H Nucleated RBC % 0.2 Sodium 138 Potassium 3.8 Chloride 96 L Carbon Dioxide 38 H Anion Gap 4 BUN 20 H Creatinine 0.90 Estim Creat Clear Calc 39 Estimated GFR 60 Glucose 92 Calcium 8.6 Total Bilirubin 0.5 AST 640 H ALT 731 H Alkaline Phosphatase 116 C-Reactive Protein 12.5 H Total Protein 6.0 L Albumin 2.8 L Hepatitis A IgM Ab Negative Hep Bs Antigen Negative Hep B Core IgM Ab Negative Hepatitis C Ab Screen Negative Quality VTE Prophylaxis VTE prophylaxis: pharmacologic ordered
[2024-08-02] MEDS: ACETAMINOPHEN 325 MG TABLET 650 MG PO (09:31)
[2024-08-02] MEDS: FLECAINIDE ACETATE 50 MG TABLET 150 MG PO ×2 (09:34→20:05)
[2024-08-02] MEDS: LOSARTAN POTASSIUM 25 MG TABLET PO (09:34)
[2024-08-02] MEDS: carvediloL 12.5 MG TABLET PO ×2 (09:34→20:08)
[2024-08-02] MEDS: FAMOTIDINE 20 MG TABLET PO ×2 (09:34→20:05)
[2024-08-02] MEDS: TAMSULOSIN HCL 0.4 MG CAPSULE PO (09:34)
[2024-08-02] MEDS: CHOLECALCIFEROL 1,000 UNITS TABLET 1000 UNITS PO (09:35)
[2024-08-02] MEDS: FERROUS SULFATE 325 MG TABLET DR PO ×2 (09:35→17:27)
[2024-08-02] MEDS: cycloSPORINE 0.4 ML OPHTH SOLUTION 1 DROP EACH EYE ×2 (09:35→20:08)
[2024-08-02] MEDS: guaiFENesin 12 HR 600 MG TABCR PO ×2 (09:35→20:05)
[2024-08-02] MEDS: FUROSEMIDE INJ 40 MG/4 ML VIAL IV PUSH (09:35)
[2024-08-02] MEDS: busPIRone HCL 10 MG TABLET 20 MG PO ×3 (09:40→18:49)
--- NOTE | 2024-08-02 12:13 | P.CONCA_ITS ---
Assessment and Plan Assessment and plan (1) Heart failure of unknown type: Code(s): I50.9 - Heart failure, unspecified Status: Acute Assessment and Plan: Normal biventricular function seen on recent echo from June of this year. She did have elevated RA pressure which may be secondary to her lung disease. Clinically she does not appear to be in heart failure. Would shift her back to her home dose of furosemide 20mg daily. No active/acute cardiac problems at this time. Cardiology will sign off. Please call with questions. (2) Paroxysmal atrial fibrillation: Code(s): I48.0 - Paroxysmal atrial fibrillation Status: Chronic Assessment and Plan: Chronic atrial fibrillation on flecainide and Coreg. Continue anticoagulation with Xarelto. Outpatient follow-up with her established it telecom technician at [facility]. History of Present Illness History of Present Illness Consult date/time: 08/02/24 12:13 Requesting physician: Gayla Kraft APRN Consult reason: Other (pulmonary edema) Reason For Visit: Pulmonary edema, Pneumonia, Hypoxia Narrative: Beth Aaron is an 83 year old female with atrial fibrillation, hypertension, and history of congestive heart failure. She comes to the hospital because of weakness. Patient states that after her most recent discharge from the hospital she felt extremely tired and would sleep for 4-5 hours during the day. Her extreme fatigue raised a lot of concern between the patient and her so she was brought to the emergency department. Cardiology is consulted because of a finding of pulmonary edema on chest x ray. The patient denies any shortness of breath, lower extremity swelling, orthopnea. At the time of my evaluation, she feels weak but otherwise has no complaints. Review of Systems 2 Review of Systems: All systems reviewed & are unremarkable except as noted in HPI and below [facility] Past Medical History Medical History Diastolic dysfunction Transient ischemic attack At the age of 29, attributed to oral contraceptives. Chronic anticoagulation Anxiety Chronic obstructive pulmonary disease Related to significant secondhand smoke exposure. Dyslipidemia Left carotid bruit Unremarkable carotid Doppler ultrasounds on 09/09/2019. Eczema Paroxysmal atrial fibrillation Paroxysmal atrial fibrillation/atrial flutter. Maintained on flecainide, carvedilol, and rivaroxaban. Patient of Dr. Bharathi Higuera at [facility]. Hypertension Headache, migraine Arthritis Surgical History Surgical History History of permanent cardiac pacemaker placement History of cardiac radiofrequency ablation History of tubal ligation History of tonsillectomy History of appendectomy History of ventral hernia repair History of uterine suspension procedure History of eyelid surgery Family History Family History Mother Family history of kidney disease Family history of elevated blood lipids Acute myocardial infarction, Onset Age: 93 Family history of liver disease, Onset Age: 93 Family history of congestive heart failure Family history of chronic obstructive pulmonary disease Family history of renal failure, Onset Age: 93 Father Family history of migraine headaches Hypertension Grandparent Cerebrovascular accident Other Family history of cardiovascular disease Social History Social History Social History: Surrogate medical decision maker: Alcides Aaron, spouse. Code status: Full code. Smoking status: Never smoker Second hand tobacco smoke exposure: Yes Alcohol intake: never Substance use: never Substance use type: does not use Do You Feel Safe in your Home?: Yes Lack of Transportation: No Lack of Food: Never True Current Housing: I Have Housing Concerned About Future Housing: No Difficulty Paying Gas/Electric Bills: No Difficulty Paying for Meds: No Currently Unemployed: No Education: Bachelor's Degree Difficulty w/ Childcare or Family Care: No Additional living arrangements comments: . Lives with spouse in [place]. They have 2 children. 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 Spiritual care concerns: No Meds Home Medications and Allergies Home Medications ?Medication ?Instructions ?Recorded ?Confirmed ?Type cholecalciferol (vitamin D3) 25 1,000 unit PO DAILY 01/13/20 07/31/24 History mcg (1,000 unit) capsule famotidine 20 mg tablet 20 mg PO Q12HR #60 tabs 01/09/21 07/31/24 Rx hydralazine 50 mg tablet 50 mg PO DAILY PRN Hypertension 03/26/21 07/31/24 History rivaroxaban 15 mg tablet (Xarelto) 15 mg PO QPM 04/27/21 07/31/24 History buspirone 10 mg tablet 20 mg PO 0830,1330,1930 01/11/22 07/31/24 History carvedilol 25 mg tablet (Coreg) 12.5 mg PO Q12H 11/08/23 07/31/24 History cyclosporine 0.05 % eye drops 1 drp EACH EYE Q12H 11/08/23 07/31/24 History (Restasis MultiDose) flecainide 150 mg tablet 150 mg PO Q12H 11/08/23 07/31/24 History losartan 25 mg tablet 25 mg PO DAILY 11/08/23 07/31/24 History furosemide 20 mg tablet (Lasix) 20 mg PO DAILY 30 days #30 tabs 07/08/24 07/31/24 Rx tamsulosin 0.4 mg capsule 0.4 mg PO QAM 30 days #30 caps 07/08/24 07/31/24 Rx benzonatate 100 mg capsule 100 mg PO TID PRN Cough #15 caps 07/30/24 07/31/24 Rx ferrous sulfate 325 mg (65 mg 325 mg PO BID #60 tabs 07/30/24 07/31/24 Rx iron) tablet,delayed release guaifenesin 600 mg tablet, 600 mg PO Q12HR #14 tabs 07/30/24 07/31/24 Rx extended release 12 hr (Mucus Relief ER) levofloxacin 750 mg tablet 750 mg PO DAILY #4 tabs 07/30/24 07/31/24 Rx sennosides 8.6 mg-docusate sodium 1 tab-cap PO HS #30 tabs 07/30/24 07/31/24 Rx 50 mg tablet (Senna with Docusate Sodium) Allergies Allergy/AdvReac Type Severity Reaction Status Date / Time monosodium glutamate AdvReac Unknown Fatigued Verified 07/26/24 12:49 Vital Signs Vital Signs - 24 hr 08/01/24 13:22 08/01/24 13:24 08/01/24 13:31 Temperature Pulse Rate 60 65 Respiratory Rate 16 16 Blood Pressure Pulse Oximetry 99 Oxygen Delivery Nasal Cannula Oxygen Flow Rate 3 08/01/24 14:00 08/01/24 14:21 08/01/24 16:07 Temperature 36.2 C L Pulse Rate 62 60 Respiratory Rate 18 Blood Pressure 104/43 L Pulse Oximetry 96 96 Oxygen Delivery Nasal Cannula Oxygen Flow Rate 1 08/01/24 20:00 08/01/24 20:19 08/01/24 20:45 Temperature 36.4 C L Pulse Rate 63 61 63 Respiratory Rate 18 Blood Pressure 119/55 L Pulse Oximetry 98 Oxygen Delivery Oxygen Flow Rate 08/01/24 20:46 08/01/24 23:20 08/01/24 23:22 Temperature Pulse Rate 63 63 63 Respiratory Rate 16 16 Blood Pressure Pulse Oximetry 93 Oxygen Delivery Nasal Cannula Oxygen Flow Rate 1 08/02/24 00:00 08/02/24 04:00 08/02/24 09:34 Temperature Pulse Rate 60 60 60 Respiratory Rate Blood Pressure Pulse Oximetry Oxygen Delivery Oxygen Flow Rate 08/02/24 09:34 Temperature Pulse Rate 60 Respiratory Rate Blood Pressure Pulse Oximetry Oxygen Delivery Oxygen Flow Rate Exam 2 Const: General: comfortable, no acute distress, alert and awake O rientation/consciousness: patient oriented x3 HENMT: Head: normal to inspection Eyes: General: appearance normal, both eyes and all related structures P upils: Equal, round and reactive pupils present Neck: Neck: normal visual inspection, supple and no JVD Carotids: normal carotid upstroke Resp: Effort & Inspection: normal respiratory effort Auscultation: crackles on the right at the base Cardio: Rate: regular rate Rhythm: regular rhythm Heart sounds: S1 normal heart sound present, S2 normal heart sound present and no murmurs GI: Auscultation: normal bowel sounds Skin: General skin exam: normal color Neuro: General: patient oriented x3 Cranial nerves: Yes Equal, round and reactive pupils present Extrem: General: normal to inspection Other: No edema Psych: Appearance: grossly normal Mental Status: mental status grossly normal Results Labs and Meds 08/02/24 05:38 08/02/24 05:38 Lab results: Cardiac Enzymes 08/02/24 Range/Units 05:38 AST 640 H (14-36) U/L CBC 08/02/24 Range/Units 05:38 WBC 9.4 (4.5-10.0) K/mm3 RBC 2.86 L (4.2-5.4) M/mm3 Hgb 8.8 L (12.0-15.0) g/dL Hct 28.2 L (37.0-47.0) % Plt Count 332 (150-375) k/mm3 Lymph # (Auto) 1.50 (0.9-3.2) K/mm3 [place] # (Auto) 0.9 H (0.1-0.6) K/mm3 Eos # (Auto) 0.1 (0-0.3) K/mm3 Baso # (Auto) 0.0 (0.0-0.1) K/mm3 Comprehensive Metabolic Panel 08/02/24 Range/Units 05:38 Sodium 138 (137-145) mmol/L Potassium 3.8 (3.4-5.0) mmol/L Chloride 96 L (98-107) mmol/L Carbon Dioxide 38 H (22-30) mmol/L BUN 20 H (7-17) mg/dL Creatinine 0.90 (0.7-1.0) mg/dL Glucose 92 (65-110) mg/dL Calcium 8.6 (8.4-10.2) mg/dL AST 640 H (14-36) U/L ALT 731 H (6-35) U/L Alkaline Phosphatase 116 (38-126) U/L Total Protein 6.0 L (6.3-8.2) g/dL Albumin 2.8 L (3.5-5.1) g/dL Intake and Output 08/01/24 08/02/24 08/02/24 23:59 07:59 15:59 Intake Total 240 240 Output Total 1900 300 Balance -1660 -300 240 Intake: Oral 240 240 Output: Urine 1900 300
--- NOTE | 2024-08-02 13:43 | PM.PNPUL ---
Progress Note: A&P Assessment and Plan (1) Acute respiratory failure with hypoxia: Code(s): J96.01 - Acute respiratory failure with hypoxia Status: Acute Assessment and Plan: This 83-year-old female was hospitalized with respiratory failure, primarily hypoxemic respiratory failure, characterized by bilateral pulmonary infiltrates and bilateral pleural effusions, which began approximately one month ago when the patient initially presented with hypoxemic respiratory failure and tested positive for COVID-[address]. [address] CT revealed extensive bilateral infiltrates and bilateral pleural effusions, with a BNP mildly elevated at around 1000. Since then, the patient has exhibited partial clearing of the bilateral infiltrates and a decrease in the size of the bilateral pleural effusions. The most recent CT showed mostly faded infiltrates bilaterally, with a distribution similar to the initial chest CT performed one month ago when respiratory failure started. Likewise, the pleural effusions have decreased in size. During this hospitalization, the BNP was significantly elevated at over 6000. The patient also has highly elevated liver enzymes with a normal CPK, the etiology of which remains unclear. Over the past month, the patient has been treated for congestive heart failure, pneumonia with various antibiotics, and a COVID-19 infection with remdesivir and dexamethasone during the initial hospitalization, as well as COPD. While some findings on the chest imaging, such as bilateral pleural effusions, could be attributed to congestive heart failure, the chronicity and relatively unchanged distribution of the bilateral infiltrates?now appearing less dense and faded?suggest that the initial respiratory failure may have been secondary to the COVID-19 infection, with superimposed congestive heart failure. The persistently elevated CRP further supports the presence of lung inflammation. The pleural effusions are most likely related to superimposed congestive heart failure or fluid overload. The patient mentioned being advised to drink more than 1.5 liters of water daily, which she has been doing. She is also on flecainide, which rarely can cause interstitial lung disease; however, the partial clearing of the infiltrates despite continued use of the medication does not support this condition. Plan: Continue with conservative treatment at this time, while the patient is being diuresed for potential congestive heart failure. A cardiology evaluation is pending. Given her history of dysphagia, I recommend a video swallow study. Continue to monitor chest X-ray and CRP levels. Liver enzymes are trending down. I will continue to follow the patient along with you. (2) Pulmonary edema: Code(s): J81.1 - Chronic pulmonary edema Status: Acute (3) Liver enzyme elevation: Code(s): R74.8 - Abnormal levels of other serum enzymes Status: Acute (4) Personal history of COVID-19: Code(s): Z86.16 - Personal history of COVID-19 Status: Acute Subjective Date/time seen: 08/02/24 13:43 Interval history: Patient has no new respiratory symptoms. Mild dry cough but no shortness of breath while in bed now on lower FiO2. Review of Systems Review of Systems: All systems reviewed & are unremarkable except as noted in HPI and below (HPI and below) Exam Narrative: GENERAL APPEARANCE: Well developed, well nourished, alert and cooperative, and appears to be in no acute distress while on supplemental oxygen via nasal cannula SKIN: Inspection of the skin reveals no rashes, ulcerations or petechiae. HEENT: Sclerae anicteric and conjunctivae pink and moist. Extraocular movements were intact and pupils were equal, round, and reactive to light. The oral mucosa, hard and soft palate, tongue and posterior pharynx were normal. NECK: Supple. There was no thyroid enlargement, and no tenderness, or masses were felt. LUNGS: Ray crackles at bases posteriorly no wheezing CARDIAC: There was a regular rate and rhythm without any murmurs, gallops, rubs. ABDOMEN: Soft and nontender with normal bowel sounds. There was no organomegaly. LYMPH NODES: No lymphadenopathy was appreciated in the neck. EXTREMITIES: No cyanosis, clubbing; trace pedal edema left lower extremity. NEUROLOGIC: Alert and oriented x 3. Normal affect. Objective Data Vital Signs Vital Signs: Vital Signs - 24 hr 08/01/24 14:00 08/01/24 14:21 08/01/24 16:07 Temperature 36.2 C L Pulse Rate 62 60 Respiratory Rate 18 Blood Pressure 104/43 L Pulse Oximetry 96 96 Oxygen Delivery Nasal Cannula Oxygen Flow Rate 1 08/01/24 20:00 08/01/24 20:19 08/01/24 20:45 Temperature 36.4 C L Pulse Rate 63 61 63 Respiratory Rate 18 Blood Pressure 119/55 L Pulse Oximetry 98 Oxygen Delivery Oxygen Flow Rate 08/01/24 20:46 08/01/24 23:20 08/01/24 23:22 Temperature Pulse Rate 63 63 63 Respiratory Rate 16 16 Blood Pressure Pulse Oximetry 93 Oxygen Delivery Nasal Cannula Oxygen Flow Rate 1 08/02/24 00:00 08/02/24 04:00 08/02/24 09:34 Temperature Pulse Rate 60 60 60 Respiratory Rate Blood Pressure Pulse Oximetry Oxygen Delivery Oxygen Flow Rate 08/02/24 09:34 Temperature Pulse Rate 60 Respiratory Rate Blood Pressure Pulse Oximetry Oxygen Delivery Oxygen Flow Rate Intake/Output Intake/Output: Intake & Output 07/30/24 07/31/24 08/01/24 08/02/24 23:59 23:59 23:59 23:59 Intake Total 550 780 240 Output Total 2200 300 Balance 550 -1420 -60 Meds/Results Medications: Active Medications Generic Name Dose Route Start Last Admin Trade Name Freq PRN Reason Stop Dose Admin Acetaminophen 650 mg 07/31/24 23:43 08/02/24 09:31 Acetaminophen 325 Mg Tablet PO 650 mg Q6H PRN Administration Mild Pain (1-3) or Fever Albuterol/Ipratropium 3 ml 08/01/24 02:00 08/01/24 23:19 Ipratropium 0.5 Mg/Albuterol Sulfate 2.5 Mg Ampul.Neb 3 Ml INHALATION 3 ml Q6HRT MARTIN Administration Benzonatate 100 mg 07/31/24 23:44 Benzonatate 100 Mg Capsule PO TID PRN Cough Buspirone HCl 20 mg 08/01/24 08:30 08/02/24 12:51 Buspirone Hcl 10 Mg Tablet PO 20 mg 0830,1330,1930 MARTIN Administration Carvedilol 12.5 mg 07/31/24 23:45 08/02/24 09:34 Carvedilol 12.5 Mg Tablet PO 12.5 mg Q12HR MARTIN Administration Cyclosporine 1 drop 08/01/24 09:00 08/02/24 09:35 Cyclosporine 0.4 Ml Ophth Solution EACH EYE 1 drop Q12HR MARTIN Administration Famotidine 20 mg 08/01/24 09:00 08/02/24 09:34 Famotidine 20 Mg Tablet PO 20 mg Q12HR MARTIN Administration Ferrous Sulfate 325 mg 08/01/24 09:00 08/02/24 09:35 Ferrous Sulfate [address] PO 325 mg BID MARTIN Administration Flecainide Acetate 150 mg 08/01/24 00:05 08/02/24 09:34 Flecainide Acetate 50 Mg Tablet PO 150 mg Q12HR MARTIN Administration Furosemide 40 mg 08/01/24 09:00 08/02/24 09:35 Furosemide Inj 40 Mg/4 Ml Vial IV PUSH 40 mg DAILY MARTIN Administration Guaifenesin 600 mg 08/01/24 09:00 08/02/24 09:35 Guaifenesin 12 Hr 600 Mg Tabcr PO 600 mg Q12HR MARTIN Administration Hydralazine HCl 50 mg 08/01/24 01:02 Hydralazine Hcl 25 Mg Tablet PO DAILY PRN Hypertension Losartan Potassium 25 mg 08/01/24 09:00 08/02/24 09:34 Losartan Potassium 25 Mg Tablet PO 25 mg DAILY MARTIN Administration Perflutren Lipid Microsphere 0 ml 08/01/24 14:13 Perflutren Lipid Microspheres 1.5 Ml Vial Diluted To 10 Ml Total Volume IV PUSH 08/04/24 14:13 ONCE PRN adequate visualization Protocol Polyethylene Glycol 17 gm 08/02/24 10:11 Polyethylene Glycol 3350 17 Gm Powd.Pack PO QAM PRN Constipation Rivaroxaban 15 mg 08/01/24 18:00 08/01/24 17:13 Rivaroxaban 15 Mg Tablet PO 15 mg QPM MARTIN Administration Senna/Docusate Sodium 1 tab 08/01/24 21:00 08/01/24 20:45 Senna/Docusate Sodium Tablet PO 1 tab HS MARTIN Administration Tamsulosin HCl 0.4 mg 08/01/24 09:00 08/02/24 09:34 Tamsulosin Hcl 0.4 Mg Capsule PO 0.4 mg QAM MARTIN Administration Vitamin D 1,000 units 08/01/24 09:00 08/02/24 09:35 Cholecalciferol 1,000 Units Tablet PO 1,000 units DAILY MARTIN Administration Radiology Results: ITS Impressions Chest CTA 07/31/24 17:21 IMPRESSION: No pulmonary embolus. No thoracic aortic dissection. Redemonstration of advanced/severe pulmonary edema, as detailed above. Bilateral pleural effusions (right greater than left), decreased in size from previous examination. Abdomen Ultrasound 08/01/24 08:44 IMPRESSION: Possible small right pleural effusion. Otherwise, normal limited abdominal ultrasound. Chest X-Ray 08/02/24 06:35 Impression: Mild to moderate probable pulmonary edema pattern with small pleural effusions. Correlate clinically for pneumonia. Probable underlying COPD. Labs Labs: Laboratory Results - last 24 hr 08/01/24 08/02/24 17:11 05:38 WBC 9.4 RBC 2.86 L Hgb 8.8 L Hct 28.2 L MCV 98.6 MCH 30.8 MCHC 31.2 L RDW 15.4 H Plt Count 332 MPV 8.7 Immature Gran % (Auto) 1.9 H Neut % (Auto) 70.6 Lymph % (Auto) 15.9 L [place] % (Auto) 9.8 H Eos % (Auto) 1.4 Baso % (Auto) 0.4 Lymph # (Auto) 1.50 Trinity # (Auto) 0.9 H Eos # (Auto) 0.1 Baso # (Auto) 0.0 Abs Immat Gran (auto) 0.18 H Absolute Neuts (auto) 6.7 Absolute Nucleated RBC 0.020 H Nucleated RBC % 0.2 Sodium 138 Potassium 3.8 Chloride 96 L Carbon Dioxide 38 H Anion Gap 4 BUN 20 H Creatinine 0.90 Estim Creat Clear Calc 39 Estimated GFR 60 Glucose 92 Calcium 8.6 Total Bilirubin 0.5 AST 640 H ALT 731 H Alkaline Phosphatase 116 C-Reactive Protein 12.5 H Total Protein 6.0 L Albumin 2.8 L Hepatitis A IgM Ab Negative Hep Bs Antigen Negative Hep B Core IgM Ab Negative Hepatitis C Ab Screen Negative
[2024-08-02] MEDS: IPRATROPIUM 0.5 MG/ALBUTEROL SULFATE 2.5 MG AMPUL.NEB 3 ML INHALATION ×2 (14:23→22:35)
--- NOTE | 2024-08-02 16:57 | P.CONGI_ITS ---
Assessment and Plan Assessment and plan (1) Liver enzyme elevation: Code(s): R74.8 - Abnormal levels of other serum enzymes Status: Acute Assessment and Plan: The patient's acute and significant elevation in liver transaminases is showing rapid improvement. This elevation coincided with a severe hypoxemic episode. Furthermore, the patient may have a component of diastolic dysfunction, a common finding in her age group, particularly in the presence of underlying pulmonary disease. The magnitude of the transaminase elevation, in conjunction with the severe hypoxemia and the subsequent rapid resolution following oxygen supplementation, strongly suggests hypoxic hepatopathy. Her liver ultrasound did not reveal biliary obstruction, or space occupying lesions. Given the supportive care being provided, and the clinical picture, no further diagnostic workup is indicated at this time. Will sign off, please feel free to contact us if there are further issues related to our specialty. (2) Transaminitis: Code(s): R74.01 - Elevation of levels of liver transaminase levels Status: Deleted GI Consult Note Consult date/time: 08/02/24 16:57 HPI: Beth Aaron, an 83-year-old female, was hospitalized one month ago for severe COVID-19, treated with Remdesivir and Dexamethasone. Bilateral pulmonary infiltrates persist on her most recent CT scan although in less degree. On 07/31 she presented to the ER with severe hypoxemia, with oxygen saturation as low as 55%, which responded to supplemental oxygen. She also exhibited a significantly elevated BNP of 6000, despite a normal left ventricular systolic function on an echocardiogram performed last month. However, the echocardiogram did reveal elevated right atrial pressures, consistent with pulmonary disease. This consultation is requested due to significantly elevated transaminase levels, which are showing a favorable downward trend today. Review of Systems 2 Review of Systems: All systems reviewed & are unremarkable except as noted in HPI and below [facility] Past Medical History Medical History Diastolic dysfunction Transient ischemic attack At the age of 29, attributed to oral contraceptives. Chronic anticoagulation Anxiety Chronic obstructive pulmonary disease Related to significant secondhand smoke exposure. Dyslipidemia Left carotid bruit Unremarkable carotid Doppler ultrasounds on 09/09/2019. Eczema Paroxysmal atrial fibrillation Paroxysmal atrial fibrillation/atrial flutter. Maintained on flecainide, carvedilol, and rivaroxaban. Patient of Dr. Bharathi Higuera at [facility]. Hypertension Headache, migraine Arthritis Surgical History Surgical History History of permanent cardiac pacemaker placement History of cardiac radiofrequency ablation History of tubal ligation History of tonsillectomy History of appendectomy History of ventral hernia repair History of uterine suspension procedure History of eyelid surgery Family History Family History Mother Family history of kidney disease Family history of elevated blood lipids Acute myocardial infarction, Onset Age: 93 Family history of liver disease, Onset Age: 93 Family history of congestive heart failure Family history of chronic obstructive pulmonary disease Family history of renal failure, Onset Age: 93 Father Family history of migraine headaches Hypertension Grandparent Cerebrovascular accident Other Family history of cardiovascular disease Social History Social History Social History: Surrogate medical decision maker: Alcides Aaron, spouse. Code status: Full code. Smoking status: Never smoker Second hand tobacco smoke exposure: Yes Alcohol intake: never Substance use: never Substance use type: does not use Do You Feel Safe in your Home?: Yes Lack of Transportation: No Lack of Food: Never True Current Housing: I Have Housing Concerned About Future Housing: No Difficulty Paying Gas/Electric Bills: No Difficulty Paying for Meds: No Currently Unemployed: No Education: Bachelor's Degree Difficulty w/ Childcare or Family Care: No Additional living arrangements comments: . Lives with spouse in [place]. They have 2 children. 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 Spiritual care concerns: No Meds Home Medications and Allergies Home Medications ?Medication ?Instructions ?Recorded ?Confirmed ?Type cholecalciferol (vitamin D3) 25 1,000 unit PO DAILY 01/13/20 07/31/24 History mcg (1,000 unit) capsule famotidine 20 mg tablet 20 mg PO Q12HR #60 tabs 01/09/21 07/31/24 Rx hydralazine 50 mg tablet 50 mg PO DAILY PRN Hypertension 03/26/21 07/31/24 History rivaroxaban 15 mg tablet (Xarelto) 15 mg PO QPM 04/27/21 07/31/24 History buspirone 10 mg tablet 20 mg PO 0830,1330,1930 01/11/22 07/31/24 History carvedilol 25 mg tablet (Coreg) 12.5 mg PO Q12H 11/08/23 07/31/24 History cyclosporine 0.05 % eye drops 1 drp EACH EYE Q12H 11/08/23 07/31/24 History (Restasis MultiDose) flecainide 150 mg tablet 150 mg PO Q12H 11/08/23 07/31/24 History losartan 25 mg tablet 25 mg PO DAILY 11/08/23 07/31/24 History furosemide 20 mg tablet (Lasix) 20 mg PO DAILY 30 days #30 tabs 07/08/24 07/31/24 Rx tamsulosin 0.4 mg capsule 0.4 mg PO QAM 30 days #30 caps 07/08/24 07/31/24 Rx benzonatate 100 mg capsule 100 mg PO TID PRN Cough #15 caps 07/30/24 07/31/24 Rx ferrous sulfate 325 mg (65 mg 325 mg PO BID #60 tabs 07/30/24 07/31/24 Rx iron) tablet,delayed release guaifenesin 600 mg tablet, 600 mg PO Q12HR #14 tabs 07/30/24 07/31/24 Rx extended release 12 hr (Mucus Relief ER) levofloxacin 750 mg tablet 750 mg PO DAILY #4 tabs 07/30/24 07/31/24 Rx sennosides 8.6 mg-docusate sodium 1 tab-cap PO HS #30 tabs 07/30/24 07/31/24 Rx 50 mg tablet (Senna with Docusate Sodium) Allergies Allergy/AdvReac Type Severity Reaction Status Date / Time monosodium glutamate AdvReac Unknown Fatigued Verified 07/26/24 12:49 Vital Signs Vital Signs - 24 hr 08/01/24 20:00 08/01/24 20:19 08/01/24 20:45 Temperature 97.5 F L Pulse Rate 63 61 63 Respiratory Rate 18 Blood Pressure 119/55 L Pulse Oximetry 98 Oxygen Delivery Oxygen Flow Rate 08/01/24 20:46 08/01/24 23:20 08/01/24 23:22 Temperature Pulse Rate 63 63 63 Respiratory Rate 16 16 Blood Pressure Pulse Oximetry 93 Oxygen Delivery Nasal Cannula Oxygen Flow Rate 1 08/02/24 00:00 08/02/24 04:00 08/02/24 09:34 Temperature Pulse Rate 60 60 60 Respiratory Rate Blood Pressure Pulse Oximetry Oxygen Delivery Oxygen Flow Rate 08/02/24 09:34 08/02/24 09:35 08/02/24 14:00 Temperature 97.4 F L Pulse Rate 60 51 L Respiratory Rate 16 Blood Pressure 107/47 L Pulse Oximetry 94 98 Oxygen Delivery Nasal Cannula Oxygen Flow Rate 1 08/02/24 14:20 08/02/24 15:11 08/02/24 15:13 Temperature Pulse Rate Respiratory Rate Blood Pressure Pulse Oximetry 94 Oxygen Delivery Nasal Cannula Nasal Cannula Nasal Cannula Oxygen Flow Rate 2 1 1 Exam 2 Narrative: GENERAL APPEARANCE: Well developed, well nourished, alert and cooperative, and appears to be in no acute distress while on supplemental oxygen via nasal cannula SKIN: Inspection of the skin reveals no rashes, ulcerations or petechiae. HEENT: Sclerae anicteric and conjunctivae pink and moist. Extraocular movements were intact and pupils were equal, round, and reactive to light. The oral mucosa, hard and soft palate, tongue and posterior pharynx were normal. NECK: Supple. There was no thyroid enlargement, and no tenderness, or masses were felt. LUNGS: Ray crackles at bases posteriorly no wheezing CARDIAC: There was a regular rate and rhythm without any murmurs, gallops, rubs. ABDOMEN: Soft and nontender with normal bowel sounds. There was no organomegaly. LYMPH NODES: No lymphadenopathy was appreciated in the neck. EXTREMITIES: No cyanosis, clubbing; trace pedal edema left lower extremity. NEUROLOGIC: Alert and oriented x 3. Normal affect. Results Labs 08/02/24 05:38 08/02/24 05:38 Labs: Short CBC 08/02/24 Range/Units 05:38 WBC 9.4 (4.5-10.0) K/mm3 Hgb 8.8 L (12.0-15.0) g/dL Hct 28.2 L (37.0-47.0) % Plt Count 332 (150-375) k/mm3 BMP 08/02/24 05:38 Sodium 138 Potassium 3.8 Chloride 96 L Carbon Dioxide 38 H BUN 20 H Creatinine 0.90 Glucose 92 Calcium 8.6 Liver Function 08/02/24 Range/Units 05:38 Total Bilirubin 0.5 (0.2-1.3) mg/dL AST 640 H (14-36) U/L ALT 731 H (6-35) U/L Alkaline Phosphatase 116 (38-126) U/L Albumin 2.8 L (3.5-5.1) g/dL
[2024-08-02] MEDS: RIVAROXABAN 15 MG TABLET PO (17:27)
[2024-08-02] MEDS: SENNA/DOCUSATE SODIUM TABLET 1 TAB PO (20:05)
[2024-08-03] VITALS (16 sets, daily range): BP systolic 92–118; BP diastolic 46–57; PULSE 60–83; RESP 16–20; TEMP 36.2–36.5; O2SAT 1–100
--- NOTE | 2024-08-03 04:27 | PCRCNOTE ---
Window of time for administration has passed. See next scheduled administration.
[2024-08-03] MEDS: IPRATROPIUM 0.5 MG/ALBUTEROL SULFATE 2.5 MG AMPUL.NEB 3 ML INHALATION ×2 (07:53→20:57)
[2024-08-03 08:48] LABS: Basophils Percent Auto 0.3 % (0.2-1.2); Eosinophils Absolute Auto 0.1 K/mm3 (0-0.3); Hematocrit 29.4 % (37.0-47.0); Hemoglobin 9.4 g/dL (12.0-15.0); Immature Granulocyte Absolute 0.13 K/mm3 (0.00-0.031); Immature Granulocyte Percent A 1.4 % (0-0.5); Lymphocytes Absolute Auto 2.05 K/mm3 (0.9-3.2); Lymphocytes Percent Auto 22.8 % (18.3-44.2); Mean Corpuscular Hemoglobin 31.4 pg (26-34); Mean Corpuscular Volume 98.3 fl (80-100); Mean Platelet Volume 9.2 fl (7.4-10.4); Monocytes Absolute Auto 0.9 K/mm3 (0.1-0.6); Monocytes Percent Auto 9.7 % (2.6-8.5); Neutrophils Absolute Auto 5.8 K/mm3 (1.3-6.7); Neutrophils Percent Auto 64.8 % (45.5-73.1); Platelet Count Result 414 k/mm3 (150-375); Red Blood Count 2.99 M/mm3 (4.2-5.4); Red Cell Distribution Width 15.7 % (11.5-14.5)
[2024-08-03 08:50] LABS: Alanine Aminotransferase 495 U/L (6-35); Albumin Level 2.7 g/dL (3.5-5.1); Alkaline Phosphatase 114 U/L (38-126); Anion Gap 4 mmol/L (4-12); Aspartate Amino Transferase 213 U/L (14-36); Bilirubin,Total 0.4 mg/dL (0.2-1.3); Blood Urea Nitrogen 20 mg/dL (7-17); Calcium 8.9 mg/dL (8.4-10.2); Carbon Dioxide 37 mmol/L (22-30); Chloride 97 mmol/L (98-107); Estimated CRCL calculation 42 ml/min; Estimated Glomerular Filt Rate > 60; Glucose 96 mg/dL (65-110); Potassium 3.5 mmol/L (3.4-5.0); Sodium 138 mmol/L (137-145)
[2024-08-03] MEDS: FERROUS SULFATE 325 MG TABLET DR PO ×2 (09:16→17:49)
[2024-08-03] MEDS: FLECAINIDE ACETATE 50 MG TABLET 150 MG PO ×2 (09:17→20:29)
[2024-08-03] MEDS: TAMSULOSIN HCL 0.4 MG CAPSULE PO (09:17)
[2024-08-03] MEDS: guaiFENesin 12 HR 600 MG TABCR PO ×2 (09:17→20:29)
[2024-08-03] MEDS: carvediloL 12.5 MG TABLET PO ×2 (09:17→20:29)
[2024-08-03] MEDS: cycloSPORINE 0.4 ML OPHTH SOLUTION 1 DROP EACH EYE ×2 (09:18→20:30)
[2024-08-03] MEDS: LOSARTAN POTASSIUM 25 MG TABLET PO (09:18)
[2024-08-03] MEDS: CHOLECALCIFEROL 1,000 UNITS TABLET 1000 UNITS PO (09:18)
[2024-08-03] MEDS: FAMOTIDINE 20 MG TABLET PO ×2 (09:19→20:29)
[2024-08-03] MEDS: busPIRone HCL 10 MG TABLET 20 MG PO ×3 (09:22→18:51)
[2024-08-03] MEDS: FUROSEMIDE INJ 40 MG/4 ML VIAL IV PUSH ×2 (09:33→17:49)
--- NOTE | 2024-08-03 10:04 | P.PNPL_ITS ---
Progress Note: A&P Assessment and Plan (1) Acute respiratory failure with hypoxia: Code(s): J96.01 - Acute respiratory failure with hypoxia Status: Acute Assessment and Plan: This 83-year-old female was hospitalized with respiratory failure, primarily hypoxemic respiratory failure, characterized by bilateral pulmonary infiltrates and bilateral pleural effusions, which began approximately one month ago when the patient initially presented with hypoxemic respiratory failure and tested positive for COVID-[address]. [address] revealed extensive bilateral infiltrates and bilateral pleural effusions, with a BNP mildly elevated at around 1000. Since then, the patient has exhibited partial clearing of the bilateral infiltrates and a decrease in the size of the bilateral pleural effusions. The most recent CT showed mostly faded infiltrates bilaterally, with a distribution similar to the initial chest CT performed one month ago when respiratory failure started. Likewise, the pleural effusions have decreased in size. During this hospitalization, the BNP was significantly elevated at over 6000. The patient also has highly elevated liver enzymes with a normal CPK, the etiology of which remains unclear. Over the past month, the patient has been treated for congestive heart failure, pneumonia with various antibiotics, and a COVID-19 infection with remdesivir and dexamethasone during the initial hospitalization, as well as COPD. While some findings on the chest imaging, such as bilateral pleural effusions, could be attributed to congestive heart failure, the chronicity and relatively unchanged distribution of the bilateral infiltrates?now appearing less dense and faded?suggest that the initial respiratory failure may have been secondary to the COVID-19 infection, with superimposed congestive heart failure. The persistently elevated CRP further supports the presence of lung inflammation. The pleural effusions are most likely related to superimposed congestive heart failure or fluid overload. The patient mentioned being advised to drink more than 1.5 liters of water daily, which she has been doing. She is also on flecainide, which rarely can cause interstitial lung disease; however, the partial clearing of the infiltrates despite continued use of the medication does not support this condition. This morning, the patient experienced an unexpected drop in oxyhemoglobin saturation. She also reported experiencing palpitations. Currently, she is comfortable while on supplemental oxygen, and her physical examination remains largely unchanged, with crackles noted at the posterior lung bases bilaterally. The C-reactive protein (CRP) levels are trending downward. Plan: The case was discussed with the hospitalist present at the bedside. A workup is underway to investigate potential worsening of congestive heart failure. Due to a history of intermittent dysphagia, a video swallow study is scheduled. A chest X-ray will be performed today. We will continue to monitor the patient in collaboration with you. (2) Pulmonary edema: Code(s): J81.1 - Chronic pulmonary edema Status: Acute (3) Liver enzyme elevation: Code(s): R74.8 - Abnormal levels of other serum enzymes Status: Acute (4) Personal history of COVID-19: Code(s): Z86.16 - Personal history of COVID-19 Status: Acute Subjective Date/time seen: 08/03/24 10:04 Interval history: Patient has no new respiratory symptoms. She was on room air but early this a.m. she was switched back to supplemental oxygen because of worsening hypoxemia. She has no fever chills hemoptysis or wheezing. Review of Systems Review of Systems: All systems reviewed & are unremarkable except as noted in HPI and below (HPI and below) Exam Narrative: GENERAL APPEARANCE: Well developed, well nourished, alert and cooperative, and appears to be in no acute distress while on supplemental oxygen via nasal cannula SKIN: Inspection of the skin reveals no rashes, ulcerations or petechiae. HEENT: Sclerae anicteric and conjunctivae pink and moist. Extraocular movements were intact and pupils were equal, round, and reactive to light. The oral mucosa, hard and soft palate, tongue and posterior pharynx were normal. NECK: Supple. There was no thyroid enlargement, and no tenderness, or masses were felt. LUNGS: Ray crackles at bases posteriorly no wheezing CARDIAC: There was a regular rate and rhythm without any murmurs, gallops, rubs. ABDOMEN: Soft and nontender with normal bowel sounds. There was no organomegaly. LYMPH NODES: No lymphadenopathy was appreciated in the neck. EXTREMITIES: No cyanosis, clubbing; trace pedal edema left lower extremity. NEUROLOGIC: Alert and oriented x 3. Normal affect. Objective Data Vital Signs Vital Signs: Vital Signs - 24 hr 08/02/24 12:00 08/02/24 14:00 08/02/24 14:20 Temperature 36.3 C L Pulse Rate 60 51 L Respiratory Rate 16 Blood Pressure 107/47 L Pulse Oximetry 98 Oxygen Delivery Nasal Cannula Oxygen Flow Rate 2 08/02/24 15:11 08/02/24 15:13 08/02/24 16:00 Temperature Pulse Rate 60 Respiratory Rate Blood Pressure Pulse Oximetry 94 Oxygen Delivery Nasal Cannula Nasal Cannula Oxygen Flow Rate 1 1 08/02/24 20:05 08/02/24 20:08 08/02/24 21:35 Temperature 36.2 C L Pulse Rate 65 65 60 Respiratory Rate 16 Blood Pressure 102/46 L Pulse Oximetry 95 Oxygen Delivery Oxygen Flow Rate 08/02/24 22:35 08/02/24 22:57 08/03/24 00:00 Temperature Pulse Rate 63 63 60 Respiratory Rate 14 16 Blood Pressure Pulse Oximetry Oxygen Delivery Oxygen Flow Rate 08/03/24 04:00 08/03/24 06:00 08/03/24 07:56 Temperature 36.2 C L Pulse Rate 60 60 Respiratory Rate 16 Blood Pressure 118/57 L Pulse Oximetry 93 99 Oxygen Delivery Room Air Oxygen Flow Rate 08/03/24 07:56 08/03/24 08:03 08/03/24 08:09 Temperature Pulse Rate 64 69 62 Respiratory Rate 20 20 Blood Pressure Pulse Oximetry Oxygen Delivery Oxygen Flow Rate 08/03/24 09:17 Temperature Pulse Rate 63 Respiratory Rate Blood Pressure Pulse Oximetry Oxygen Delivery Oxygen Flow Rate Intake/Output Intake/Output: Intake & Output 07/31/24 08/01/24 08/02/24 08/03/24 23:59 23:59 23:59 23:59 Intake Total 594 337 8313 400 Output Total 2200 1350 900 Balance 550 -1420 -230 -500 Meds/Results Medications: Active Medications Generic Name Dose Route Start Last Admin Trade Name Freq PRN Reason Stop Dose Admin Acetaminophen 650 mg 07/31/24 23:43 08/02/24 09:31 Acetaminophen 325 Mg Tablet PO 650 mg Q6H PRN Administration Mild Pain (1-3) or Fever Albuterol/Ipratropium 3 ml 08/01/24 02:00 08/03/24 07:53 Ipratropium 0.5 Mg/Albuterol Sulfate 2.5 Mg Ampul.Neb 3 Ml INHALATION 3 ml Q6HRT MARTIN Administration Benzonatate 100 mg 07/31/24 23:44 Benzonatate 100 Mg Capsule PO TID PRN Cough Buspirone HCl 20 mg 08/01/24 08:30 08/03/24 09:22 Buspirone Hcl 10 Mg Tablet PO 20 mg 0830,1330,1930 MARTIN Administration Carvedilol 12.5 mg 07/31/24 23:45 08/03/24 09:17 Carvedilol 12.5 Mg Tablet PO 12.5 mg Q12HR MARTIN Administration Cyclosporine 1 drop 08/01/24 09:00 08/03/24 09:18 Cyclosporine 0.4 Ml Ophth Solution EACH EYE 1 drop Q12HR MARTIN Administration Famotidine 20 mg 08/01/24 09:00 08/03/24 09:19 Famotidine 20 Mg Tablet PO 20 mg Q12HR MARTIN Administration Ferrous Sulfate 325 mg 08/01/24 09:00 08/03/24 09:16 Ferrous Sulfate [address] PO 325 mg BID MARTIN Administration Flecainide Acetate 150 mg 08/01/24 00:05 08/03/24 09:17 Flecainide Acetate 50 Mg Tablet PO 150 mg Q12HR MARTIN Administration Furosemide 40 mg 08/03/24 09:15 08/03/24 09:33 Furosemide Inj 40 Mg/4 Ml Vial IV PUSH 40 mg BID MARTIN Administration Guaifenesin 600 mg 08/01/24 09:00 08/03/24 09:17 Guaifenesin 12 Hr 600 Mg Tabcr PO 600 mg Q12HR MARTIN Administration Hydralazine HCl 50 mg 08/01/24 01:02 Hydralazine Hcl 25 Mg Tablet PO DAILY PRN Hypertension Losartan Potassium 25 mg 08/01/24 09:00 08/03/24 09:18 Losartan Potassium 25 Mg Tablet PO 25 mg DAILY MARTIN Administration Perflutren Lipid Microsphere 0 ml 08/01/24 14:13 Perflutren Lipid Microspheres 1.5 Ml Vial Diluted To 10 Ml Total Volume IV PUSH 08/04/24 14:13 ONCE PRN adequate visualization Protocol Perflutren Lipid Microsphere 0 ml 08/03/24 09:09 Perflutren Lipid Microspheres 1.5 Ml Vial Diluted To 10 Ml Total Volume IV PUSH 08/06/24 09:09 ONCE PRN adequate visualization Protocol Polyethylene Glycol 17 gm 08/02/24 10:11 Polyethylene Glycol 3350 17 Gm Powd.Pack PO QAM PRN Constipation Rivaroxaban 15 mg 08/01/24 18:00 08/02/24 17:27 Rivaroxaban 15 Mg Tablet PO 15 mg QPM MARTIN Administration Senna/Docusate Sodium 1 tab 08/01/24 21:00 08/02/24 20:05 Senna/Docusate Sodium Tablet PO 1 tab HS MARTIN Administration Tamsulosin HCl 0.4 mg 08/01/24 09:00 08/03/24 09:17 Tamsulosin Hcl 0.4 Mg Capsule PO 0.4 mg QAM MARTIN Administration Vitamin D 1,000 units 08/01/24 09:00 08/03/24 09:18 Cholecalciferol 1,000 Units Tablet PO 1,000 units DAILY MARTIN Administration Radiology Results: ITS Impressions Chest CTA 07/31/24 17:21 IMPRESSION: No pulmonary embolus. No thoracic aortic dissection. Redemonstration of advanced/severe pulmonary edema, as detailed above. Bilateral pleural effusions (right greater than left), decreased in size from previous examination. Abdomen Ultrasound 08/01/24 08:44 IMPRESSION: Possible small right pleural effusion. Otherwise, normal limited abdominal ultrasound. Chest X-Ray 08/02/24 06:35 Impression: Mild to moderate probable pulmonary edema pattern with small pleural effusions. Correlate clinically for pneumonia. Probable underlying COPD. Labs Labs: Laboratory Results - last 24 hr 08/03/24 06:00 WBC 9.0 RBC 2.99 L Hgb 9.4 L Hct 29.4 L MCV 98.3 MCH 31.4 MCHC 32.0 RDW 15.7 H Plt Count 414 H MPV 9.2 Immature Gran % (Auto) 1.4 H Neut % (Auto) 64.8 Lymph % (Auto) 22.8 [facility] % (Auto) 9.7 H Eos % (Auto) 1.0 Baso % (Auto) 0.3 Lymph # (Auto) 2.05 [facility] # (Auto) 0.9 H Eos # (Auto) 0.1 Baso # (Auto) 0.0 Abs Immat Gran (auto) 0.13 H Absolute Neuts (auto) 5.8 Absolute Nucleated RBC 0.000 Nucleated RBC % 0.0 Sodium 138 Potassium 3.5 Chloride 97 L Carbon Dioxide 37 H Anion Gap 4 BUN 20 H Creatinine 0.83 Estim Creat Clear Calc 42 Estimated GFR > 60 Glucose 96 Calcium 8.9 Total Bilirubin 0.4 AST 213 H ALT 495 H Alkaline Phosphatase 114 C-Reactive Protein 5.0 H Total Protein 6.0 L Albumin 2.7 L
--- NOTE | 2024-08-03 12:11 | PCSTNOTE ---
Radiology staff unavailable to complete MBS over the weekend. Spoke with nursing staff (Lynn). Nursing and ordering provider aware MBS to be completed on Monday08/05/24.
--- NOTE | 2024-08-03 12:23 | P.PNIM_ITS ---
Progress Note: A&P Assessment and Plan (1) Diastolic dysfunction: Code(s): I51.89 - Other ill-defined heart diseases Status: Acute Assessment and Plan: Acute on chronic - BNP 6460, previously 1480 in 07/28 - most recent echo (07/04/24): Normal biventricular size and systolic function, moderate concentric left ventricular hypertrophy, no significant valvular disease. - currently on: Lasix 20 mg daily, increase to 40 IV daily - monitor I&Os and daily weights - trend renal function Cardiology consulted pending recommendations 08/03/24: * Cardiology signed off. * Pt's exam however, and the return of need of oxygen is consistent with potential Heart failure exacerbation * Increasing pt's Lasix to 40 mg IVP BID from daily given 2+ Pitting BLE edema, and crackles on exam. * Repeat ECHO (2) Pneumonia: Qualifiers: Pneumonia type: due to unspecified organism Code(s): J18.9 - Pneumonia, unspecified organism Status: Acute Assessment and Plan: No pneumonia seen on CT, pulmonary edema -stop Cefepime, azithromycin, and vancomycin per pulmonology recommendations - MRSA PCR not detected on 07/31/2024 - Viral PCR negative 08/03/24: * Continue to hold abx per Pulmonology. * Continue to diurese and provide supportive care. * Appreciate the continued recs of Dr. Wilson. * Wean oxygen as tolerated. (3) Hypoxia: Code(s): R09.02 - Hypoxemia Status: Acute Assessment and Plan: Secondary to pulmonary edema - chest CTA: No pulmonary embolus. No thoracic aortic dissection. Re-demonstration of advanced/severe pulmonary edema, Bilateral pleural effusions (right greater than left), decreased in size from previous examination. - pulmonology consulted recommendations for Cardiology consult and discontinue antibiotics and steroids. 08/03/24: * See #s 1 and 2 above (4) Transaminitis: Code(s): R74.01 - Elevation of levels of liver transaminase levels Status: Deleted Assessment and Plan: On admission- AST 2702, ALT 1210, total bilirubin 0.7, alk-phos 125 on 07/31/2024 hepatitis panel pending CK, lipase within normal limits RUQ ultrasound normal liver CMP in the a.m. GI consulted pending recommendations 08/03/24: * Pt's transaminases have continued to trend downward further today with AST/ALT 213/495 respectively. * Etiology Post COVID vs. abx effects vs. GI causation. * has signed off. (5) TRISTIN (acute kidney injury): Code(s): N17.9 - Acute kidney failure, unspecified Status: Resolved Assessment and Plan: Improving No history of CKD, creatinine on admission 1.17 DC IV hydration due to pulmonary edema Daily BMP 08/03/24: * Resolved TRISTIN. (6) Hypertension: Qualifiers: Hypertension type: unspecified Qualified Code(s): I10 - Essential (primary) hypertension Code(s): I10 - Essential (primary) hypertension Status: Chronic Assessment and Plan: - chronic, currently 127/65 - continue home medications: losartan, flecainide, hydralazine p.r.n., carvedilol - monitor 08/03/24: * Stable BP and rate. Continue medications as ordered. (7) Leukocytosis: Code(s): D72.829 - Elevated white blood cell count, unspecified Status: Resolved Assessment and Plan: WBC on admission 17.6, 9.4 on 08/[address] shows pulmonary edema, no PE, no pneumonia UA negative for infection Blood cultures preliminary results showed no initial growth No signs of soft tissue infection Antibiotics for pneumonia been discontinued per pulmonary's recommendations Will monitor leukocytosis CRP 12.5 Hepatitis negative 08/03/24: * Resolved now at 9.0. (8) Constipation: Qualifiers: Constipation type: unspecified constipation type Qualified Code(s): K59.00 - Constipation, unspecified Code(s): K59.00 - Constipation, unspecified Status: Acute Assessment and Plan: - Polyethylene Glycol 3350 ordered PRN Time Spent With Patient Time with patient: 25 - 35 minutes Subjective Date/time seen: 08/03/24 12:23 Interval history: This is a very pleasant 83 year old female that was examined this AM at the bedside. She continues to feel intermittently dyspneic and had to have her oxygen reapplied just prior to me coming to the bedside. She had been weaned to room air yesterday and today her oxygen notedly dropped back into the 80s. She is being followed by Pulmonology as well and he is at the bedside at the same time I am. Pt with crackles in the bilateral lungs on exam. Physical exam showing 2+ Pitting edema BLE. She was evaluated by Cardiology yesterday and they signed off of her care. All testing with CXR and CTA chest shows pulmonary gloria a. In speaking with Dr. Wilson his concerns are that there are components of both infection whether it be from COVID PNA or possible aspiration as pt notes she does occasionally choke with trying to swallow, or Cardiac. Will obtain ECHO, Barium Swallow, and adjust Lasix from 40 mg daily to BID IVP. Pt agreeable to this plan as she just continues to feel dyspneic at times. No c/o CP and no N/V/D. Review of Systems Review of Systems: All systems reviewed & are unremarkable except as noted in HPI and below Exam Narrative: General: well appearing, appears stated age. HEENT: normocephalic, atraumatic. Mucous membranes moist. EOMI, PERRLA, bilateral sclera anicteric, no conjunctival injection. Neck supple without JVD, lymphadenopathy, or bruit. Respiratory: + BLL crackles are audible. Cardiovascular: Regular rate and rhythm, normal S1-S2 upon ascultation. No murmurs, rubs, or clicks. PMI is nondisplaced, capillary refill less than 3 second. Abdomen: Distended, firm, tender to palpation, round, no pulsatile masses,. No rebound, no guarding. No CVA tenderness, no hepatosplenomegaly. Bowel sounds present to all four quadrants. No high pitch or tinkling sounds, resonant to percussion. Extremities: No cyanosis, clubbing,. Pulses are palpable 2/2. Active ROM to all four extremities. 2+ pitting edema to BLE Neuro: Alert and orientated x 4. PERRLA. Cranial nerves 2-12 intact without focal deficit. Skin: Warm, dry, and intact, without rash, erythema, or lesion. Psych: pleasant, cooperative, normal speech, normal affect, no hallucinations, no dysarthia Objective Data Vital Signs Vital Signs: Vital Signs - 24 hr 08/02/24 14:00 08/02/24 14:20 08/02/24 15:11 Temperature 97.4 F L Pulse Rate 51 L Respiratory Rate 16 Blood Pressure 107/47 L Pulse Oximetry 98 94 Oxygen Delivery Nasal Cannula Nasal Cannula Oxygen Flow Rate 2 1 08/02/24 15:13 08/02/24 16:00 08/02/24 20:05 Temperature Pulse Rate 60 65 Respiratory Rate Blood Pressure Pulse Oximetry Oxygen Delivery Nasal Cannula Oxygen Flow Rate 1 08/02/24 20:08 08/02/24 21:35 08/02/24 22:35 Temperature 97.1 F L Pulse Rate 65 60 63 Respiratory Rate 16 14 Blood Pressure 102/46 L Pulse Oximetry 95 Oxygen Delivery Oxygen Flow Rate 08/02/24 22:57 08/03/24 00:00 08/03/24 04:00 Temperature Pulse Rate 63 60 60 Respiratory Rate 16 Blood Pressure Pulse Oximetry Oxygen Delivery Oxygen Flow Rate 08/03/24 06:00 08/03/24 07:56 08/03/24 07:56 Temperature 97.2 F L Pulse Rate 60 64 Respiratory Rate 16 20 Blood Pressure 118/57 L Pulse Oximetry 93 99 Oxygen Delivery Room Air Oxygen Flow Rate 08/03/24 08:03 08/03/24 08:09 08/03/24 09:17 Temperature Pulse Rate 69 62 63 Respiratory Rate 20 Blood Pressure Pulse Oximetry Oxygen Delivery Oxygen Flow Rate 08/03/24 12:00 Temperature Pulse Rate 67 Respiratory Rate Blood Pressure Pulse Oximetry Oxygen Delivery Oxygen Flow Rate Intake/Output Intake/Output: Intake & Output 07/31/24 08/01/24 08/02/24 08/03/24 23:59 23:59 23:59 23:59 Intake Total 207 239 6370 400 Output Total 2200 1350 1400 Balance 550 -4200 230 1000 Meds/Results Medications: Active Medications Generic Name Dose Route Start Last Admin Trade Name Freq PRN Reason Stop Dose Admin Acetaminophen 650 mg 07/31/24 23:43 08/02/24 09:31 Acetaminophen 325 Mg Tablet PO 650 mg Q6H PRN Administration Mild Pain (1-3) or Fever Albuterol/Ipratropium 3 ml 08/01/24 02:00 08/03/24 07:53 Ipratropium 0.5 Mg/Albuterol Sulfate 2.5 Mg Ampul.Neb 3 Ml INHALATION 3 ml Q6HRT MARTIN Administration Benzonatate 100 mg 07/31/24 23:44 Benzonatate 100 Mg Capsule PO TID PRN Cough Buspirone HCl 20 mg 08/01/24 08:30 08/03/24 09:22 Buspirone Hcl 10 Mg Tablet PO 20 mg 0830,1330,1930 MARTIN Administration Carvedilol 12.5 mg 07/31/24 23:45 08/03/24 09:17 Carvedilol 12.5 Mg Tablet PO 12.5 mg Q12HR MARTIN Administration Cyclosporine 1 drop 08/01/24 09:00 08/03/24 09:18 Cyclosporine 0.4 Ml Ophth Solution EACH EYE 1 drop Q12HR MARTIN Administration Famotidine 20 mg 08/01/24 09:00 08/03/24 09:19 Famotidine 20 Mg Tablet PO 20 mg Q12HR MARTIN Administration Ferrous Sulfate 325 mg 08/01/24 09:00 08/03/24 09:16 Ferrous Sulfate [address] PO 325 mg BID MARTIN Administration Flecainide Acetate 150 mg 08/01/24 00:05 08/03/24 09:17 Flecainide Acetate 50 Mg Tablet PO 150 mg Q12HR MARTIN Administration Furosemide 40 mg 08/03/24 09:15 08/03/24 09:33 Furosemide Inj 40 Mg/4 Ml Vial IV PUSH 40 mg BID MARTIN Administration Guaifenesin 600 mg 08/01/24 09:00 08/03/24 09:17 Guaifenesin 12 Hr 600 Mg Tabcr PO 600 mg Q12HR MARTIN Administration Hydralazine HCl 50 mg 08/01/24 01:02 Hydralazine Hcl 25 Mg Tablet PO DAILY PRN Hypertension Losartan Potassium 25 mg 08/01/24 09:00 08/03/24 09:18 Losartan Potassium 25 Mg Tablet PO 25 mg DAILY MARTIN Administration Perflutren Lipid Microsphere 0 ml 08/01/24 14:13 Perflutren Lipid Microspheres 1.5 Ml Vial Diluted To 10 Ml Total Volume IV PUSH 08/04/24 14:13 ONCE PRN adequate visualization Protocol Perflutren Lipid Microsphere 0 ml 08/03/24 09:09 Perflutren Lipid Microspheres 1.5 Ml Vial Diluted To 10 Ml Total Volume IV PUSH 08/06/24 09:09 ONCE PRN adequate visualization Protocol Polyethylene Glycol 17 gm 08/02/24 10:11 Polyethylene Glycol 3350 17 Gm Powd.Pack PO QAM PRN Constipation Rivaroxaban 15 mg 08/01/24 18:00 08/02/24 17:27 Rivaroxaban 15 Mg Tablet PO 15 mg QPM MARTIN Administration Senna/Docusate Sodium 1 tab 08/01/24 21:00 08/02/24 20:05 Senna/Docusate Sodium Tablet PO 1 tab HS MARTIN Administration Tamsulosin HCl 0.4 mg 08/01/24 09:00 08/03/24 09:17 Tamsulosin Hcl 0.4 Mg Capsule PO 0.4 mg QAM MARTIN Administration Vitamin D 1,000 units 08/01/24 09:00 08/03/24 09:18 Cholecalciferol 1,000 Units Tablet PO 1,000 units DAILY MARTIN Administration Radiology Results: ITS Impressions Chest CTA 07/31/24 17:21 IMPRESSION: No pulmonary embolus. No thoracic aortic dissection. Redemonstration of advanced/severe pulmonary edema, as detailed above. Bilateral pleural effusions (right greater than left), decreased in size from previous examination. Abdomen Ultrasound 08/01/24 08:44 IMPRESSION: Possible small right pleural effusion. Otherwise, normal limited abdominal ultrasound. Chest X-Ray 08/03/24 10:16 Impression: 1: Cardiomegaly with mild interstitial edema. 2: Small pleural effusions. Labs Labs: Laboratory Results - last 24 hr 08/03/24 06:00 WBC 9.0 RBC 2.99 L Hgb 9.4 L Hct 29.4 L MCV 98.3 MCH 31.4 MCHC 32.0 RDW 15.7 H Plt Count 414 H MPV 9.2 Immature Gran % (Auto) 1.4 H Neut % (Auto) 64.8 Lymph % (Auto) 22.8 [place] % (Auto) 9.7 H Eos % (Auto) 1.0 Baso % (Auto) 0.3 Lymph # (Auto) 2.05 [place] # (Auto) 0.9 H Eos # (Auto) 0.1 Baso # (Auto) 0.0 Abs Immat Gran (auto) 0.13 H Absolute Neuts (auto) 5.8 Absolute Nucleated RBC 0.000 Nucleated RBC % 0.0 Sodium 138 Potassium 3.5 Chloride 97 L Carbon Dioxide 37 H Anion Gap 4 BUN 20 H Creatinine 0.83 Estim Creat Clear Calc 42 Estimated GFR > 60 Glucose 96 Calcium 8.9 Total Bilirubin 0.4 AST 213 H ALT 495 H Alkaline Phosphatase 114 C-Reactive Protein 5.0 H Total Protein 6.0 L Albumin 2.7 L Quality VTE Prophylaxis VTE prophylaxis: pharmacologic ordered
[2024-08-03] MEDS: RIVAROXABAN 15 MG TABLET PO (17:49)
[2024-08-03] MEDS: SENNA/DOCUSATE SODIUM TABLET 1 TAB PO (20:29)
[2024-08-03 22:58] LABS: C. pneumoniae Ab (IgM) <1:10 titer; C. psittaci Ab (IgG) <1:64 titer; C. psittaci Ab (IgM) <1:10 titer; C. trachomatis Ab (IgG) <1:64 titer; C. trachomatis Ab (IgM) <1:10 titer
[2024-08-04] VITALS (20 sets, daily range): BP systolic 92–149; BP diastolic 48–60; PULSE 58–85; RESP 16–20; TEMP 36.1–36.5; O2SAT 95–100
[2024-08-04] MEDS: IPRATROPIUM 0.5 MG/ALBUTEROL SULFATE 2.5 MG AMPUL.NEB 3 ML INHALATION ×4 (01:37→19:19)
[2024-08-04 06:22] LABS: Basophils Percent Auto 0.4 % (0.2-1.2); Eosinophils Absolute Auto 0.1 K/mm3 (0-0.3); Eosinophils Percent Auto 1.2 % (0-4.4); Hematocrit 30.8 % (37.0-47.0); Hemoglobin 9.7 g/dL (12.0-15.0); Immature Granulocyte Absolute 0.15 K/mm3 (0.00-0.031); Immature Granulocyte Percent A 1.6 % (0-0.5); Lymphocytes Absolute Auto 2.54 K/mm3 (0.9-3.2); Lymphocytes Percent Auto 26.6 % (18.3-44.2); Mean Corpuscular HGB Conc 31.5 g/dl (32-36); Mean Corpuscular Volume 98.4 fl (80-100); Mean Platelet Volume 8.7 fl (7.4-10.4); Monocytes Percent Auto 10.1 % (2.6-8.5); Neutrophils Absolute Auto 5.7 K/mm3 (1.3-6.7); Neutrophils Percent Auto 60.1 % (45.5-73.1); Platelet Count Result 377 k/mm3 (150-375); Red Blood Count 3.13 M/mm3 (4.2-5.4); Red Cell Distribution Width 15.8 % (11.5-14.5); White Blood Count 9.5 K/mm3 (4.5-10.0)
[2024-08-04 06:35] LABS: Alanine Aminotransferase 330 U/L (6-35); Albumin Level 2.9 g/dL (3.5-5.1); Alkaline Phosphatase 115 U/L (38-126); Anion Gap 6 mmol/L (4-12); Aspartate Amino Transferase 101 U/L (14-36); Bilirubin,Total 0.5 mg/dL (0.2-1.3); Blood Urea Nitrogen 19 mg/dL (7-17); Calcium 8.6 mg/dL (8.4-10.2); Carbon Dioxide 39 mmol/L (22-30); Chloride 94 mmol/L (98-107); Estimated CRCL calculation 38 ml/min; Estimated Glomerular Filt Rate 58; Glucose 89 mg/dL (65-110); Magnesium 1.9 mg/dL (1.6-2.3); Potassium 3.1 mmol/L (3.4-5.0); Sodium 139 mmol/L (137-145)
[2024-08-04] MEDS: POTASSIUM CHLORIDE 20 MEQ ER TABLET 40 MEQ PO (09:29)
[2024-08-04] MEDS: busPIRone HCL 10 MG TABLET 20 MG PO ×3 (09:30→19:07)
[2024-08-04] MEDS: guaiFENesin 12 HR 600 MG TABCR PO ×2 (09:30→21:46)
[2024-08-04] MEDS: FLECAINIDE ACETATE 50 MG TABLET 150 MG PO ×2 (09:30→21:46)
[2024-08-04] MEDS: carvediloL 12.5 MG TABLET PO ×2 (09:31→21:46)
[2024-08-04] MEDS: TAMSULOSIN HCL 0.4 MG CAPSULE PO (09:31)
[2024-08-04] MEDS: FERROUS SULFATE 325 MG TABLET DR PO ×2 (09:31→17:54)
[2024-08-04] MEDS: CHOLECALCIFEROL 1,000 UNITS TABLET 1000 UNITS PO (09:31)
[2024-08-04] MEDS: FAMOTIDINE 20 MG TABLET PO ×2 (09:31→21:46)
[2024-08-04] MEDS: LOSARTAN POTASSIUM 25 MG TABLET PO (09:32)
[2024-08-04] MEDS: cycloSPORINE 0.4 ML OPHTH SOLUTION 1 DROP EACH EYE ×2 (09:32→21:46)
[2024-08-04] MEDS: polyethylene glycoL 3350 17 GM POWD.PACK PO (09:32)
[2024-08-04] MEDS: FUROSEMIDE INJ 40 MG/4 ML VIAL IV PUSH ×2 (09:32→17:55)
--- NOTE | 2024-08-04 10:48 | P.PNPL_ITS ---
Progress Note: A&P Assessment and Plan (1) Acute respiratory failure with hypoxia: Code(s): J96.01 - Acute respiratory failure with hypoxia Status: Acute Assessment and Plan: This 83-year-old female was hospitalized with respiratory failure, primarily hypoxemic respiratory failure, characterized by bilateral pulmonary infiltrates and bilateral pleural effusions, which began approximately one month ago when the patient initially presented with hypoxemic respiratory failure and tested positive for COVID-[address]. [address] revealed extensive bilateral infiltrates and bilateral pleural effusions, with a BNP mildly elevated at around 1000. Since then, the patient has exhibited partial clearing of the bilateral infiltrates and a decrease in the size of the bilateral pleural effusions. The most recent CT showed mostly faded infiltrates bilaterally, with a distribution similar to the initial chest CT performed one month ago when respiratory failure started. Likewise, the pleural effusions have decreased in size. During this hospitalization, the BNP was significantly elevated at over 6000. The patient also has highly elevated liver enzymes with a normal CPK, the etiology of which remains unclear. Over the past month, the patient has been treated for congestive heart failure, pneumonia with various antibiotics, and a COVID-19 infection with remdesivir and dexamethasone during the initial hospitalization, as well as COPD. While some findings on the chest imaging, such as bilateral pleural effusions, could be attributed to congestive heart failure, the chronicity and relatively unchanged distribution of the bilateral infiltrates?now appearing less dense and faded?suggest that the initial respiratory failure may have been secondary to the COVID-19 infection, with superimposed congestive heart failure. The persistently elevated CRP further supports the presence of lung inflammation. The pleural effusions are most likely related to superimposed congestive heart failure or fluid overload. The patient mentioned being advised to drink more than 1.5 liters of water daily, which she has been doing. She is also on flecainide, which rarely can cause interstitial lung disease; however, the partial clearing of the infiltrates despite continued use of the medication does not support this condition. Yesterday morning, the patient experienced an unexpected drop in oxyhemoglobin saturation. She also reported experiencing palpitations. Today, she is stable on 1 L oxygen via nasal cannula with a plan to titrated off. On physical exam she has fewer crackles at bases compared to exam y esterday. Plan: Continue with current regimen. Anticipate discharge home in couple of days. (2) Pulmonary edema: Code(s): J81.1 - Chronic pulmonary edema Status: Acute (3) Liver enzyme elevation: Code(s): R74.8 - Abnormal levels of other serum enzymes Status: Acute (4) Personal history of COVID-19: Code(s): Z86.16 - Personal history of COVID-19 Status: Acute Subjective Date/time seen: 08/04/24 10:48 Interval history: Patient has no new respiratory symptoms. Receiving Lasix twice daily since yesterday. Sitting comfortably in chair with near 100% oxygen on 1 liter/minute nasal cannula. Review of Systems Review of Systems: All systems reviewed & are unremarkable except as noted in HPI and below (HPI and below) Exam Narrative: GENERAL APPEARANCE: Well developed, well nourished, alert and cooperative, and appears to be in no acute distress while on supplemental oxygen via nasal cannula SKIN: Inspection of the skin reveals no rashes, ulcerations or petechiae. HEENT: Sclerae anicteric and conjunctivae pink and moist. Extraocular movements were intact and pupils were equal, round, and reactive to light. The oral mucosa, hard and soft palate, tongue and posterior pharynx were normal. NECK: Supple. There was no thyroid enlargement, and no tenderness, or masses were felt. LUNGS: Ray crackles at bases posteriorly no wheezing CARDIAC: There was a regular rate and rhythm without any murmurs, gallops, rubs. ABDOMEN: Soft and nontender with normal bowel sounds. There was no organomegaly. LYMPH NODES: No lymphadenopathy was appreciated in the neck. EXTREMITIES: No cyanosis, clubbing; trace pedal edema left lower extremity. NEUROLOGIC: Alert and oriented x 3. Normal affect. Objective Data Vital Signs Vital Signs: Vital Signs - 24 hr 08/03/24 12:00 08/03/24 14:03 08/03/24 16:17 Temperature 36.5 C Pulse Rate 67 60 60 Respiratory Rate 16 Blood Pressure 92/54 L Pulse Oximetry 100 Oxygen Delivery Oxygen Flow Rate Fraction of Inspired Oxygen 08/03/24 20:00 08/03/24 20:29 08/03/24 20:29 Temperature Pulse Rate 60 62 62 Respiratory Rate Blood Pressure Pulse Oximetry Oxygen Delivery Oxygen Flow Rate Fraction of Inspired Oxygen 08/03/24 20:57 08/03/24 20:57 08/03/24 21:08 Temperature Pulse Rate 83 83 Respiratory Rate 16 16 Blood Pressure Pulse Oximetry 98 Oxygen Delivery Nasal Cannula Oxygen Flow Rate 1 Fraction of Inspired Oxygen 08/03/24 22:00 08/04/24 00:00 08/04/24 01:37 Temperature 36.3 C L Pulse Rate 60 60 83 Respiratory Rate 20 16 Blood Pressure 112/46 L Pulse Oximetry 100 Oxygen Delivery Oxygen Flow Rate Fraction of Inspired Oxygen 08/04/24 01:47 08/04/24 04:00 08/04/24 06:00 Temperature 36.1 C L Pulse Rate 83 61 60 Respiratory Rate 16 20 Blood Pressure 149/60 H Pulse Oximetry 100 Oxygen Delivery Oxygen Flow Rate Fraction of Inspired Oxygen 08/04/24 08:22 08/04/24 08:45 08/04/24 08:45 Temperature Pulse Rate 60 85 Respiratory Rate 16 Blood Pressure Pulse Oximetry 97 Oxygen Delivery Nasal Cannula Oxygen Flow Rate 1 Fraction of Inspired Oxygen 24 08/04/24 08:57 08/04/24 09:30 08/04/24 09:31 Temperature Pulse Rate 80 67 62 Respiratory Rate 16 Blood Pressure Pulse Oximetry Oxygen Delivery Oxygen Flow Rate Fraction of Inspired Oxygen Intake/Output Intake/Output: Intake & Output 08/01/24 08/02/24 08/03/24 08/04/24 23:59 23:59 23:59 23:59 Intake Total 780 1120 1100 640 Output Total 2200 1350 1700 1100 [facility]1420 -230 -600 -460 Meds/Results Medications: Active Medications Generic Name Dose Route Start Last Admin Trade Name Freq PRN Reason Stop Dose Admin Acetaminophen 650 mg 07/31/24 23:43 08/02/24 09:31 Acetaminophen 325 Mg Tablet PO 650 mg Q6H PRN Administration Mild Pain (1-3) or Fever Albuterol/Ipratropium 3 ml 08/01/24 02:00 08/04/24 08:45 Ipratropium 0.5 Mg/Albuterol Sulfate 2.5 Mg Ampul.Neb 3 Ml INHALATION 3 ml Q6HRT MARTIN Administration Benzonatate 100 mg 07/31/24 23:44 Benzonatate 100 Mg Capsule PO TID PRN Cough Buspirone HCl 20 mg 08/01/24 08:30 08/04/24 09:30 Buspirone Hcl 10 Mg Tablet PO 20 mg 0830,1330,1930 MARTIN Administration Carvedilol 12.5 mg 07/31/24 23:45 08/04/24 09:31 Carvedilol 12.5 Mg Tablet PO 12.5 mg Q12HR MARTIN Administration Cyclosporine 1 drop 08/01/24 09:00 08/04/24 09:32 Cyclosporine 0.4 Ml Ophth Solution EACH EYE 1 drop Q12HR MARTIN Administration Famotidine 20 mg 08/01/24 09:00 08/04/24 09:31 Famotidine 20 Mg Tablet PO 20 mg Q12HR MARTIN Administration Ferrous Sulfate 325 mg 08/01/24 09:00 08/04/24 09:31 Ferrous Sulfate [address] PO 325 mg BID MARTIN Administration Flecainide Acetate 150 mg 08/01/24 00:05 08/04/24 09:30 Flecainide Acetate 50 Mg Tablet PO 150 mg Q12HR MARTIN Administration Furosemide 40 mg 08/03/24 09:15 08/04/24 09:32 Furosemide Inj 40 Mg/4 Ml Vial IV PUSH 40 mg BID MARTIN Administration Guaifenesin 600 mg 08/01/24 09:00 08/04/24 09:30 Guaifenesin 12 Hr 600 Mg Tabcr PO 600 mg Q12HR MARTIN Administration Hydralazine HCl 50 mg 08/01/24 01:02 Hydralazine Hcl 25 Mg Tablet PO DAILY PRN Hypertension Losartan Potassium 25 mg 08/01/24 09:00 08/04/24 09:32 Losartan Potassium 25 Mg Tablet PO 25 mg DAILY MARTIN Administration Perflutren Lipid Microsphere 0 ml 08/01/24 14:13 Perflutren Lipid Microspheres 1.5 Ml Vial Diluted To 10 Ml Total Volume IV PUSH 08/04/24 14:13 ONCE PRN adequate visualization Protocol Perflutren Lipid Microsphere 0 ml 08/03/24 09:09 Perflutren Lipid Microspheres 1.5 Ml Vial Diluted To 10 Ml Total Volume IV PUSH 08/06/24 09:09 ONCE PRN adequate visualization Protocol Polyethylene Glycol 17 gm 08/02/24 10:11 08/04/24 09:32 Polyethylene Glycol 3350 17 Gm Powd.Pack PO 17 gm QAM PRN Administration Constipation Rivaroxaban 15 mg 08/01/24 18:00 08/03/24 17:49 Rivaroxaban 15 Mg Tablet PO 15 mg QPM MARTIN Administration Senna/Docusate Sodium 1 tab 08/01/24 21:00 08/03/24 20:29 Senna/Docusate Sodium Tablet PO 1 tab HS MARTIN Administration Tamsulosin HCl 0.4 mg 08/01/24 09:00 08/04/24 09:31 Tamsulosin Hcl 0.4 Mg Capsule PO 0.4 mg QAM MARTIN Administration Vitamin D 1,000 units 08/01/24 09:00 08/04/24 09:31 Cholecalciferol 1,000 Units Tablet PO 1,000 units DAILY MARTIN Administration Radiology Results: ITS Impressions Chest CTA 07/31/24 17:21 IMPRESSION: No pulmonary embolus. No thoracic aortic dissection. Redemonstration of advanced/severe pulmonary edema, as detailed above. Bilateral pleural effusions (right greater than left), decreased in size from previous examination. Abdomen Ultrasound 08/01/24 08:44 IMPRESSION: Possible small right pleural effusion. Otherwise, normal limited abdominal ultrasound. Chest X-Ray 08/03/24 10:16 Impression: 1: Cardiomegaly with mild interstitial edema. 2: Small pleural effusions. Labs Labs: Laboratory Results - last 24 hr 08/01/24 08/04/24 02:13 06:03 WBC 9.5 RBC 3.13 L Hgb 9.7 L Hct 30.8 L MCV 98.4 MCH 31.0 MCHC 31.5 L RDW 15.8 H Plt Count 377 H MPV 8.7 Immature Gran % (Auto) 1.6 H Neut % (Auto) 60.1 Lymph % (Auto) 26.6 [place] % (Auto) 10.1 H Eos % (Auto) 1.2 Baso % (Auto) 0.4 Lymph # (Auto) 2.54 [place] # (Auto) 1.0 H Eos # (Auto) 0.1 Baso # (Auto) 0.0 Abs Immat Gran (auto) 0.15 H Absolute Neuts (auto) 5.7 Absolute Nucleated RBC 0.000 Nucleated RBC % 0.0 Sodium 139 Potassium 3.1 L Chloride 94 L Carbon Dioxide 39 H Anion Gap 6 BUN 19 H Creatinine 0.92 Estim Creat Clear Calc 38 Estimated GFR 58 L Glucose 89 Calcium 8.6 Magnesium 1.9 Total Bilirubin 0.5 AST 101 H ALT 330 H Alkaline Phosphatase 115 Total Protein 6.0 L Albumin 2.9 L C. pneumoniae IgG Ab 1:64 H C. pneumoniae IgM Ab <1:10 C. trachomatis IgG Ab <1:64 C. trachomatis IgM Ab <1:10 C. psittaci IgG Ab <1:64 C. psittaci IgM Ab <1:10
--- NOTE | 2024-08-04 12:42 | P.PNIM_ITS ---
Progress Note: A&P Assessment and Plan (1) Diastolic dysfunction: Code(s): I51.89 - Other ill-defined heart diseases Status: Acute Assessment and Plan: Acute on chronic - BNP 6460, previously 1480 in 07/28 - most recent echo (07/04/24): Normal biventricular size and systolic function, moderate concentric left ventricular hypertrophy, no significant valvular disease. - currently on: Lasix 20 mg daily, increase to 40 IV daily - monitor I&Os and daily weights - trend renal function Cardiology consulted pending recommendations 08/03/24: * Cardiology signed off. * Pt's exam however, and the return of need of oxygen is consistent with potential Heart failure exacerbation * Increasing pt's Lasix to 40 mg IVP BID from daily given 2+ Pitting BLE edema, and crackles on exam. * Repeat ECHO 08/04/24: * Awaiting repeat of ECHO. * Renal function allows continuation of Lasix 40 mg IVP BID for now. * Daily weight * Accurate I&O. (2) Pneumonia: Qualifiers: Pneumonia type: due to unspecified organism Code(s): J18.9 - Pneumonia, unspecified organism Status: Acute Assessment and Plan: No pneumonia seen on CT, pulmonary edema -stop Cefepime, azithromycin, and vancomycin per pulmonology recommendations - MRSA PCR not detected on 07/31/2024 - Viral PCR negative 08/03/24: * Continue to hold abx per Pulmonology. * Continue to diurese and provide supportive care. * Appreciate the continued recs of Dr. Wilson. * Wean oxygen as tolerated. 08/04/24: * Continue with plan per Pulmonology to remain without abx as he believes infection is due to viral PNA (as pt recently had COVID-19) superimposed with degree of heart failure. * Will continue to provide supportive care. * Will need Home oxygen evaluation prior to discharge. * Concern for potential aspiration as pt mentioned to Pulmonology that she coughs when eating. * Barium swallow is ordered for tomorrow and is pending. (3) Hypoxia: Code(s): R09.02 - Hypoxemia Status: Acute Assessment and Plan: Secondary to pulmonary edema - chest CTA: No pulmonary embolus. No thoracic aortic dissection. Re-demonstration of advanced/severe pulmonary edema, Bilateral pleural effusions (right greater than left), decreased in size from previous examination. - pulmonology consulted recommendations for Cardiology consult and discontinue antibiotics and steroids. 08/03/24: * See #s 1 and 2 above (4) Transaminitis: Code(s): R74.01 - Elevation of levels of liver transaminase levels Status: Deleted Assessment and Plan: On admission- AST 2702, ALT 1210, total bilirubin 0.7, alk-phos 125 on 07/31/2024 hepatitis panel pending CK, lipase within normal limits RUQ ultrasound normal liver CMP in the a.m. GI consulted pending recommendations 08/03/24: * Pt's transaminases have continued to trend downward further today with AST/ALT 213/495 respectively. * Etiology Post COVID vs. abx effects vs. GI causation. * GI has signed off. 08/04/24: * Continuing to trend downward. * Pt asymptomatic. (5) Hypokalemia: Code(s): E87.6 - Hypokalemia Status: Acute Assessment and Plan: 08/04/24: * Potassium this AM was 3.1. A 40 mEq dose is given today. (6) TRISTIN (acute kidney injury): Code(s): N17.9 - Acute kidney failure, unspecified Status: Resolved Assessment and Plan: Improving No history of CKD, creatinine on admission 1.17 DC IV hydration due to pulmonary edema Daily BMP 08/03/24: * Resolved TRISTIN. (7) Hypertension: Qualifiers: Hypertension type: unspecified Qualified Code(s): I10 - Essential (primary) hypertension Code(s): I10 - Essential (primary) hypertension Status: Chronic Assessment and Plan: - chronic, currently 127/65 - continue home medications: losartan, flecainide, hydralazine p.r.n., carvedilol - monitor 08/03/24: * Stable BP and rate. Continue medications as ordered. 08/04/24: * BP stable and even on the lower side at times. * No adjustment in medications needed at this time. (8) Leukocytosis: Code(s): D72.829 - Elevated white blood cell count, unspecified Status: Resolved Assessment and Plan: WBC on admission 17.6, 9.4 on 08/[address] shows pulmonary edema, no PE, no pneumonia UA negative for infection Blood cultures preliminary results showed no initial growth No signs of soft tissue infection Antibiotics for pneumonia been discontinued per pulmonary's recommendations Will monitor leukocytosis CRP 12.5 Hepatitis negative 08/03/24: * Resolved now at 9.0. (9) Constipation: Qualifiers: Constipation type: unspecified constipation type Qualified Code(s): K59.00 - Constipation, unspecified Code(s): K59.00 - Constipation, unspecified Status: Acute Assessment and Plan: - Polyethylene Glycol 3350 ordered PRN Subjective Date/time seen: 08/04/24 12:42 Interval history: This very pleasant pt was examined today in interval assessment. She continues to require oxygen supplementally, but is now on 1L. We continue to diurese her and she is awaiting ECHO tomorrow as well as a barium swallow that is wanted by Dr. Wilson due to pt complaints of coughing when she eats. She endorses feeling better overall. She has no continued complaints of palpitations and she has no new pain. We continue to follow with Pulmonology. Pt will need Home oxygen evaluation prior to discharge. Review of Systems Review of Systems: All systems reviewed & are unremarkable except as noted in HPI and below Exam Narrative: General: well appearing, appears stated age. HEENT: normocephalic, atraumatic. Mucous membranes moist. EOMI, PERRLA, bilateral sclera anicteric, no conjunctival injection. Neck supple without JVD, lymphadenopathy, or bruit. Respiratory: + BLL crackles are audible in the bases, but diminished as compared to yesterday. Cardiovascular: RRR, S1 and S2 present. No S3, S4, m,r,g,h or displacement of PMI. Abdomen: Flat, BS +x4, NT and no guarding or rebound. Extremities: FROM actively and without deficits. 2+ BLE Pitting present. Neuro: A&Ox4, no focal deficits. Skin: Warm, dry, and intact, without rash, erythema, or lesion. Psych: pleasant, cooperative with intact judgement. Objective Data Vital Signs Vital Signs: Vital Signs - 24 hr 08/03/24 14:03 08/03/24 16:17 08/03/24 20:00 Temperature 97.7 F Pulse Rate 60 60 60 Respiratory Rate 16 Blood Pressure 92/54 L Pulse Oximetry 100 Oxygen Delivery Oxygen Flow Rate Fraction of Inspired Oxygen 08/03/24 20:29 08/03/24 20:29 08/03/24 20:57 Temperature Pulse Rate 62 62 83 Respiratory Rate 16 Blood Pressure Pulse Oximetry Oxygen Delivery Oxygen Flow Rate Fraction of Inspired Oxygen 08/03/24 20:57 08/03/24 21:08 08/03/24 22:00 Temperature 97.3 F L Pulse Rate 83 60 Respiratory Rate 16 20 Blood Pressure 112/46 L Pulse Oximetry 98 100 Oxygen Delivery Nasal Cannula Oxygen Flow Rate 1 Fraction of Inspired Oxygen 08/04/24 00:00 08/04/24 01:37 08/04/24 01:47 Temperature Pulse Rate 60 83 83 Respiratory Rate 16 16 Blood Pressure Pulse Oximetry Oxygen Delivery Oxygen Flow Rate Fraction of Inspired Oxygen 08/04/24 04:00 08/04/24 06:00 08/04/24 08:22 Temperature 97.0 F L Pulse Rate 61 60 60 Respiratory Rate 20 Blood Pressure 149/60 H Pulse Oximetry 100 Oxygen Delivery Oxygen Flow Rate Fraction of Inspired Oxygen 08/04/24 08:45 08/04/24 08:45 08/04/24 08:57 Temperature Pulse Rate 85 80 Respiratory Rate 16 16 Blood Pressure Pulse Oximetry 97 Oxygen Delivery Nasal Cannula Oxygen Flow Rate 1 Fraction of Inspired Oxygen 24 08/04/24 09:30 08/04/24 09:31 08/04/24 12:00 Temperature Pulse Rate 67 62 60 Respiratory Rate Blood Pressure Pulse Oximetry Oxygen Delivery Oxygen Flow Rate Fraction of Inspired Oxygen Intake/Output Intake/Output: Intake & Output 08/01/24 08/02/24 08/03/24 08/04/24 23:59 23:59 23:59 23:59 Intake Total 780 1120 1100 640 Output Total 2200 1350 1700 1100 [facility]1420 -230 -600 -460 Meds/Results Medications: Active Medications Generic Name Dose Route Start Last Admin Trade Name Freq PRN Reason Stop Dose Admin Acetaminophen 650 mg 07/31/24 23:43 08/02/24 09:31 Acetaminophen 325 Mg Tablet PO 650 mg Q6H PRN Administration Mild Pain (1-3) or Fever Albuterol/Ipratropium 3 ml 08/01/24 02:00 08/04/24 08:45 Ipratropium 0.5 Mg/Albuterol Sulfate 2.5 Mg Ampul.Neb 3 Ml INHALATION 3 ml Q6HRT MARTIN Administration Benzonatate 100 mg 07/31/24 23:44 Benzonatate 100 Mg Capsule PO TID PRN Cough Buspirone HCl 20 mg 08/01/24 08:30 08/04/24 12:39 Buspirone Hcl 10 Mg Tablet PO 20 mg 0830,1330,1930 MARTIN Administration Carvedilol 12.5 mg 07/31/24 23:45 08/04/24 09:31 Carvedilol 12.5 Mg Tablet PO 12.5 mg Q12HR MARTIN Administration Cyclosporine 1 drop 08/01/24 09:00 08/04/24 09:32 Cyclosporine 0.4 Ml Ophth Solution EACH EYE 1 drop Q12HR MARTIN Administration Famotidine 20 mg 08/01/24 09:00 08/04/24 09:31 Famotidine 20 Mg Tablet PO 20 mg Q12HR MARTIN Administration Ferrous Sulfate 325 mg 08/01/24 09:00 08/04/24 09:31 Ferrous Sulfate [address] PO 325 mg BID MARTIN Administration Flecainide Acetate 150 mg 08/01/24 00:05 08/04/24 09:30 Flecainide Acetate 50 Mg Tablet PO 150 mg Q12HR MARTIN Administration Furosemide 40 mg 08/03/24 09:15 08/04/24 09:32 Furosemide Inj 40 Mg/4 Ml Vial IV PUSH 40 mg BID MARTIN Administration Guaifenesin 600 mg 08/01/24 09:00 08/04/24 09:30 Guaifenesin 12 Hr 600 Mg Tabcr PO 600 mg Q12HR MARTIN Administration Hydralazine HCl 50 mg 08/01/24 01:02 Hydralazine Hcl 25 Mg Tablet PO DAILY PRN Hypertension Losartan Potassium 25 mg 08/01/24 09:00 08/04/24 09:32 Losartan Potassium 25 Mg Tablet PO 25 mg DAILY MARTIN Administration Perflutren Lipid Microsphere 0 ml 08/01/24 14:13 Perflutren Lipid Microspheres 1.5 Ml Vial Diluted To 10 Ml Total Volume IV PUSH 08/04/24 14:13 ONCE PRN adequate visualization Protocol Perflutren Lipid Microsphere 0 ml 08/03/24 09:09 Perflutren Lipid Microspheres 1.5 Ml Vial Diluted To 10 Ml Total Volume IV PUSH 08/06/24 09:09 ONCE PRN adequate visualization Protocol Polyethylene Glycol 17 gm 08/02/24 10:11 08/04/24 09:32 Polyethylene Glycol 3350 17 Gm Powd.Pack PO 17 gm QAM PRN Administration Constipation Rivaroxaban 15 mg 08/01/24 18:00 08/03/24 17:49 Rivaroxaban 15 Mg Tablet PO 15 mg QPM MARTIN Administration Senna/Docusate Sodium 1 tab 08/01/24 21:00 08/03/24 20:29 Senna/Docusate Sodium Tablet PO 1 tab HS MARTIN Administration Tamsulosin HCl 0.4 mg 08/01/24 09:00 08/04/24 09:31 Tamsulosin Hcl 0.4 Mg Capsule PO 0.4 mg QAM MARTIN Administration Vitamin D 1,000 units 08/01/24 09:00 08/04/24 09:31 Cholecalciferol 1,000 Units Tablet PO 1,000 units DAILY MARTIN Administration Radiology Results: ITS Impressions Chest CTA 07/31/24 17:21 IMPRESSION: No pulmonary embolus. No thoracic aortic dissection. Redemonstration of advanced/severe pulmonary edema, as detailed above. Bilateral pleural effusions (right greater than left), decreased in size from previous examination. Abdomen Ultrasound 08/01/24 08:44 IMPRESSION: Possible small right pleural effusion. Otherwise, normal limited abdominal ultrasound. Chest X-Ray 08/03/24 10:16 Impression: 1: Cardiomegaly with mild interstitial edema. 2: Small pleural effusions. Labs Labs: Laboratory Results - last 24 hr 08/01/24 08/04/24 02:13 06:03 WBC 9.5 RBC 3.13 L Hgb 9.7 L Hct 30.8 L MCV 98.4 MCH 31.0 MCHC 31.5 L RDW 15.8 H Plt Count 377 H MPV 8.7 Immature Gran % (Auto) 1.6 H Neut % (Auto) 60.1 Lymph % (Auto) 26.6 [place] % (Auto) 10.1 H Eos % (Auto) 1.2 Baso % (Auto) 0.4 Lymph # (Auto) 2.54 [place] # (Auto) 1.0 H Eos # (Auto) 0.1 Baso # (Auto) 0.0 Abs Immat Gran (auto) 0.15 H Absolute Neuts (auto) 5.7 Absolute Nucleated RBC 0.000 Nucleated RBC % 0.0 Sodium 139 Potassium 3.1 L Chloride 94 L Carbon Dioxide 39 H Anion Gap 6 BUN 19 H Creatinine 0.92 Estim Creat Clear Calc 38 Estimated GFR 58 L Glucose 89 Calcium 8.6 Magnesium 1.9 Total Bilirubin 0.5 AST 101 H ALT 330 H Alkaline Phosphatase 115 Total Protein 6.0 L Albumin 2.9 L C. pneumoniae IgG Ab 1:64 H C. pneumoniae IgM Ab <1:10 C. trachomatis IgG Ab <1:64 C. trachomatis IgM Ab <1:10 C. psittaci IgG Ab <1:64 C. psittaci IgM Ab <1:10 Quality VTE Prophylaxis VTE prophylaxis: pharmacologic ordered
[2024-08-04] MEDS: RIVAROXABAN 15 MG TABLET PO (17:54)
[2024-08-04] MEDS: SENNA/DOCUSATE SODIUM TABLET 1 TAB PO (21:46)
[2024-08-05] VITALS (19 sets, daily range): BP systolic 82–126; BP diastolic 45–50; PULSE 59–68; RESP 14–18; TEMP 36.2–36.3; O2SAT 92–100
--- NOTE | 2024-08-05 | ECHO_ITS ---
Patient Info Name: Beth Aaron Age: 83 years : 1940 Gender: Female Ht: 66 in Wt: 162 lbs BSA: 1.86 m2 HR: 61 bpm BP: 111 / 48 mmHg Technical Quality: Fair Exam Date: 08/05/2024 11:44 AM Exam Location: Echo Lab Patient Status: Inpatient Admit Date: 08/01/2024 Staff Ordering Physician: Tori Navarro Waste Chopper: Nohelia Mayfield RDCS Attending Provider: Tori Navarro Referring Physician: Ramon ECHOLS; Exam Type: CA echo doppler w bubble study Study Info Indications - CONTINUED DYSPNEA AND HYPOXIA W/HEART FAILURE Complete two-dimensional, color flow and Doppler transthoracic echocardiogram is performed with agitated saline. Contrast/Agitated Saline Contrast/Ag. Saline: Agitated Saline Amount: 20.00 ml Existing IV Access: Yes Summary 1. There is normal biventricular size and systolic function. 2. There is moderate tricuspid regurgitation. 3. Negative bubble study for eeoov-ut-knly shunt. Left Ventricle The left ventricle is normal in size and systolic function. The left ventricular ejection fraction is visually estimated to be 65-70%. Right Ventricle Linear artifact in right ventricle suggestive of catheter(s), pacemaker lead(s), or ICD lead(s). Left Atria The left atrium is normal size. Right Atria Linear artifact in the right atrium suggestive of catheter(s), pacemaker lead(s), or ICD lead(s). The right atrium is normal size. Atrial Septum Negative bubble study. Aortic Valve The aortic valve is trileaflet and opens well. There is trace aortic regurgitation. Pulmonic Valve The pulmonic valve is normal. Mitral Valve The mitral valve is normal. There is trace mitral regurgitation. Tricuspid Valve The tricuspid valve is normal. There is moderate tricuspid regurgitation. Pericardium/Pleural Pericardium is normal in appearance with no evidence for significant pericardial effusion. Inferior Vena Cava Normal inferior vena cava with >50% collapse upon inspiration consistent with normal right atrial pressure, 3 mmHg. Normal inferior vena cava with >50% collapse upon inspiration consistent with normal right atrial pressure, 3 mmHg. Aorta The aortic root at the level of the sinus of Valsalva measures 3.2 cm in diameter. Left Ventricular Outflow Tract Name Value Normal LVOT 2D LVOT Diameter 1.9 cm LVOT Doppler LVOT Peak Gradient 4 mmHg LVOT Mean Gradient 2 mmHg LVOT VTI 20 cm LVOT VTI/AV VTI Ratio 0.9 LVOT Stroke Volume 59 ml LVOT CO 3.5 l/min LVOT CI 1.9 l/min/m2 Pulmonic Valve Name Value Normal RVOT Doppler RVOT Peak Gradient 2 mmHg PV Doppler PV Peak Gradient 3 mmHg Mitral Valve Name Value Normal MV Doppler MV Decel Potter 283 cm/s2 MV PHT 63 ms MV Area (PHT) 3.5 cm2 4.0-5.0 MV Diastolic Function MV E Peak Velocity 61 cm/s MV A Peak Velocity 43 cm/s MV E/A 1.4 MV Decel Time 217 ms Tricuspid Valve Name Value Normal TV Regurgitation Doppler TR Peak Velocity 296 cm/s TR Peak Gradient 30 mmHg Estimated PAP/RSVP RA Pressure 3 mmHg <=5 PA Systolic Pressure 38 mmHg <36 RV Systolic Pressure 38 mmHg <36 Aorta Name Value Normal Ascending Aorta Ao Root Diameter (MM) 3.3 cm Ao Root Diam Index (MM) 1.8 cm/m2 Aortic Valve Name Value Normal AV Doppler AV Peak Velocity 125 cm/s AV Peak Gradient 6 mmHg AV Mean Gradient 3 mmHg AV VTI 23 cm AV Area (Cont Eq VTI) 2.6 cm2 >=3.0 AV Area (Cont Eq Daniel) 2.5 cm2 AV Regurgitation 2D LVOT Area 2.9 cm2 AV Regurgitation Doppler AR Decel Time 1,958 ms AR Decel Potter 211 cm/s2 AR PHT 568 ms Ventricles Name Value Normal LV Dimensions 2D/MM IVS Diastolic Thickness (2D) 1.0 cm 0.6-1.0 IVS Diastole Thickness (MM) 1.1 cm 0.6-0.9 LVID Diastole (2D) 3.5 cm 3.8-5.2 LVID Diastole (MM) 4.5 cm 3.8-5.2 LVIW Diastolic Thickness (2D) 1.1 cm 0.6-0.9 LVIW Diastolic Thickness (MM) 1.0 cm 0.6-0.9 LVID Systole (2D) 2.3 cm 2.2-3.5 LVID Systole (MM) 2.9 cm 2.2-3.5 LVOT Diameter 1.9 cm LV Mass (2D Cubed) 106.08 g 67.00-162.00 LV Mass Index (2D Cubed) 57 g/m2 43-95 Relative Wall Thickness (2D) 0.62 LV Mass (MM Cubed) 166.00 g 67.00-162.00 LV Mass Index (MM Cubed) 89 g/m2 43-95 Relative Wall Thickness (MM) 0.45 LV Fractional Shortening/Ejection Fraction 2D/MM LV Fractional Shortening (2D) 32 % 27-45 LV Fractional Shortening (MM) 36 % 27-45 LV EF (MM Teicholz) 66 % 54-74 LV EF (2D Teicholz) 62 % 54-74 LV Diastolic Volume (4C MOD) 63 ml LV EF (4C MOD) 68 % LV Diastolic Volume (2C MOD) 50 ml LV EF (2C MOD) 65 % LV Diastolic Volume (BP MOD) 56 ml 46-106 LV Diastolic Volume Index (BP MOD) 30 ml/m2 29-61 LV Systolic Volume (BP MOD) 19 ml 14-42 LV Systolic Volume Index (BP MOD) 10 ml/m2 8-24 LV EF (BP MOD) 67 % 54-74 LV Diastolic Length (4C) 7.6 cm LV Systolic Length (4C) 6.4 cm LV Stroke Volume (4C MOD) 42 ml Atria Name Value Normal LA Dimensions LA Dimension (MM) 2.2 cm 2.7-3.8 LA Volume (4C A-L) 33 ml LA Volume (BP A-L) 40 ml RA Dimensions RA Area (4C) 16.7 cm2 <=18.0 Report Signatures
[2024-08-05] MEDS: IPRATROPIUM 0.5 MG/ALBUTEROL SULFATE 2.5 MG AMPUL.NEB 3 ML INHALATION ×4 (01:19→21:13)
[2024-08-05 05:55] LABS: Basophils Absolute Auto 0.1 K/mm3 (0.0-0.1); Basophils Percent Auto 0.6 % (0.2-1.2); Eosinophils Absolute Auto 0.1 K/mm3 (0-0.3); Eosinophils Percent Auto 0.9 % (0-4.4); Hematocrit 29.7 % (37.0-47.0); Hemoglobin 9.4 g/dL (12.0-15.0); Immature Granulocyte Absolute 0.17 K/mm3 (0.00-0.031); Immature Granulocyte Percent A 1.6 % (0-0.5); Lymphocytes Absolute Auto 2.59 K/mm3 (0.9-3.2); Lymphocytes Percent Auto 24.4 % (18.3-44.2); Mean Corpuscular HGB Conc 31.6 g/dl (32-36); Mean Corpuscular Hemoglobin 31.2 pg (26-34); Mean Corpuscular Volume 98.7 fl (80-100); Mean Platelet Volume 8.7 fl (7.4-10.4); Monocytes Percent Auto 9.6 % (2.6-8.5); Neutrophils Absolute Auto 6.7 K/mm3 (1.3-6.7); Neutrophils Percent Auto 62.9 % (45.5-73.1); Platelet Count Result 389 k/mm3 (150-375); Red Blood Count 3.01 M/mm3 (4.2-5.4); Red Cell Distribution Width 15.9 % (11.5-14.5); White Blood Count 10.6 K/mm3 (4.5-10.0)
[2024-08-05 06:42] LABS: Alanine Aminotransferase 240 U/L (6-35); Alkaline Phosphatase 102 U/L (38-126); Anion Gap 5 mmol/L (4-12); Aspartate Amino Transferase 61 U/L (14-36); Bilirubin,Total 0.5 mg/dL (0.2-1.3); Blood Urea Nitrogen 20 mg/dL (7-17); Calcium 8.9 mg/dL (8.4-10.2); Carbon Dioxide 35 mmol/L (22-30); Chloride 96 mmol/L (98-107); Estimated CRCL calculation 44 ml/min; Estimated Glomerular Filt Rate > 60; Glucose 91 mg/dL (65-110); Potassium 3.9 mmol/L (3.4-5.0); Sodium 136 mmol/L (137-145)
--- NOTE | 2024-08-05 08:35 | P.PNIM_ITS ---
Progress Note: A&P Assessment and Plan (1) Diastolic dysfunction: Code(s): I51.89 - Other ill-defined heart diseases Status: Acute (2) Pneumonia: Qualifiers: Laterality: bilateral Lung location: unspecified part of lung Pneumonia type: due to unspecified organism Qualified Code(s): J18.9 - Pneumoni a, unspecified organism Code(s): J18.9 - Pneumonia, unspecified organism Status: Acute Plan Acute on chronic Diastolic dysfunction: Code(s): I51.89 - Other ill-defined heart diseases Status: Acute Assessment and Plan: Acute on chronic BNP 6460, previously 1480 in 07/28 most recent echo (07/04/24): Normal biventricular size and systolic function, moderate concentric left ventricular hypertrophy, no significant valvular disease. Cardiology consulted Still overloaded, continuation of Lasix 40 mg IVP BID for now. Repeat chest x-ray today Pneumonia: Qualifiers: Pneumonia type: due to unspecified organism Code(s): J18.9 - Pneumonia, unspecified organism Status: Acute Assessment and Plan: No pneumonia seen on CT, pulmonary edema -stop Cefepime, azithromycin, and vancomycin per pulmonology recommendations - MRSA PCR not detected on 07/31/2024 - Viral PCR negative Concern for potential aspiration as pt mentioned to Pulmonology that she coughs when eating. Barium swallow showed no aspiration per speech evaluation Acute respiratory failure with hypoxemia Code(s): R09.02 - Hypoxemia Status: Acute Assessment and Plan: Secondary to pulmonary edema - chest CTA: No pulmonary embolus. No thoracic aortic dissection. Re-demonstration of advanced/severe pulmonary edema, Bilateral pleural effusions (right greater than left), decreased in size from previous examination. pulmonology consulted recommendations for Cardiology consult and discontinue antibiotics and steroids. GERD Patient has burning sensation in the epigastric region, but denies nausea vomiting Switch from Pepcid to Protonix 40 mg p.o. Maalox 30 mL once Transaminitis: Code(s): R74.01 - Elevation of levels of liver transaminase levels Status: Deleted Assessment and Plan: On admission- AST 2702, ALT 1210, total bilirubin 0.7, alk-phos 125 on 07/31/2024 hepatitis panel pending CK, lipase within normal limits RUQ ultrasound normal liver CMP in the a.m. GI consulted Continuing to trend downward. asymptomatic. (5) Hypokalemia: Code(s): E87.6 - Hypokalemia Status: Acute Assessment and Plan: 08/04/24: * Potassium this AM was 3.1. A 40 mEq dose is given today. TRISTIN (acute kidney injury): Code(s): N17.9 - Acute kidney failure, unspecified Status: Resolved Assessment and Plan: Improving No history of CKD, creatinine on admission 1.17 DC IV hydration due to pulmonary edema Daily BMP 08/03/24: * Resolved TRISTIN. Qualifiers: Hypertension type: unspecified Qualified Code(s): I10 - Essential (primary) hypertension Code(s): I10 - Essential (primary) hypertension Status: Chronic Assessment and Plan: - chronic, currently 127/65 - continue home medications: losartan, flecainide, hydralazine p.r.n., carvedilol - monitor 08/03/24: * Stable BP and rate. Continue medications as ordered. 08/04/24: * BP stable and even on the lower side at times. * No adjustment in medications needed at this time. (8) Leukocytosis: Code(s): D72.829 - Elevated white blood cell count, unspecified Status: Resolved Assessment and Plan: WBC on admission 17.6, 9.4 on 08/[address] shows pulmonary edema, no PE, no pneumonia UA negative for infection Blood cultures preliminary results showed no initial growth No signs of soft tissue infection Antibiotics for pneumonia been discontinued per pulmonary's recommendations Will monitor leukocytosis CRP 12.5 Hepatitis negative Resolved now at 9.0. Constipation: Qualifiers: Constipation type: unspecified constipation type Qualified Code(s): K59.00 - Constipation, unspecified Code(s): K59.00 - Constipation, unspecified Status: Acute Assessment and Plan: - Polyethylene Glycol 3350 ordered PRN Subjective Date/time seen: 08/05/24 08:35 Interval history: I saw examined patient today. Patient came back from barium swallowing test. Patient has some cough, denies dyspnea at rest. Patient complaining of epigastric burning sensation. Patient denies nausea vomiting Patient is afebrile, blood pressure stable Labs are reviewed. Exam Narrative: GENERAL: Pleasant, in no acute distress. Well-nourished. - EYES: EOMI. Anicteric. - HENT: Moist mucous membranes. - LUNGS: Crackles bilateral base, promi nent right lower base - CARDIOVASCULAR: Regular rate and rhyth m. No murmur. No JVD. - ABDOMEN: Soft, somewhat epigastric ten liliane and non-distended. No palpable masses. - EXTREMITIES: No edema. Peripheral puls es 2+. Non-tender. - NEUROLOGIC: No focal neurological defi cits. CN II-XII grossly intact. - PSYCHIATRIC: Awake, Alert and oriented x 3. Appropriate mood and affect. - SKIN: No rashes or lesions. Warm. - LYMPH: No cervical lymphadenopathy. Objective Data Vital Signs Vital Signs: Vital Signs - 24 hr 08/04/24 08:45 08/04/24 08:45 08/04/24 08:57 Temperature Pulse Rate 85 80 Respiratory Rate 16 16 Blood Pressure Pulse Oximetry 97 Oxygen Delivery Nasal Cannula Oxygen Flow Rate 1 Fraction of Inspired Oxygen 08/04/24 09:30 08/04/24 09:30 08/04/24 09:31 Temperature Pulse Rate 67 62 Respiratory Rate Blood Pressure Pulse Oximetry 96 Oxygen Delivery Room Air Oxygen Flow Rate Fraction of Inspired Oxygen 08/04/24 12:00 08/04/24 13:28 08/04/24 13:28 Temperature Pulse Rate 60 63 Respiratory Rate 16 Blood Pressure Pulse Oximetry 95 Oxygen Delivery Room Air Oxygen Flow Rate Fraction of Inspired Oxygen 08/04/24 13:35 08/04/24 15:18 08/04/24 16:27 Temperature 97.7 F Pulse Rate 68 59 L 60 Respiratory Rate 16 16 Blood Pressure 92/52 L Pulse Oximetry 96 Oxygen Delivery Oxygen Flow Rate Fraction of Inspired Oxygen 08/04/24 19:19 08/04/24 19:30 08/04/24 20:00 Temperature Pulse Rate 65 62 65 Respiratory Rate 18 18 Blood Pressure Pulse Oximetry Oxygen Delivery Oxygen Flow Rate Fraction of Inspired Oxygen 08/04/24 21:46 08/04/24 21:46 08/04/24 22:05 Temperature 97.7 F Pulse Rate 60 60 58 L Respiratory Rate 18 Blood Pressure 111/48 L Pulse Oximetry 96 Oxygen Delivery Oxygen Flow Rate Fraction of Inspired Oxygen 08/05/24 00:00 08/05/24 01:19 08/05/24 01:19 Temperature Pulse Rate 60 61 Respiratory Rate 16 Blood Pressure Pulse Oximetry 93 Oxygen Delivery Room Air Oxygen Flow Rate Fraction of Inspired Oxygen 08/05/24 01:27 08/05/24 04:00 08/05/24 06:00 Temperature 97.1 F L Pulse Rate 60 62 59 L Respiratory Rate 16 18 Blood Pressure 126/50 L Pulse Oximetry 97 Oxygen Delivery Oxygen Flow Rate Fraction of Inspired Oxygen 08/05/24 08:31 08/05/24 08:31 Temperature Pulse Rate 62 Respiratory Rate 16 Blood Pressure Pulse Oximetry 92 Oxygen Delivery Room Air Oxygen Flow Rate Fraction of Inspired Oxygen Intake/Output Intake/Output: Intake & Output 08/02/24 08/03/24 08/04/24 08/05/24 23:59 23:59 23:59 23:59 Intake Total 1120 1100 1480 400 Output Total 1350 1700 1700 600 Balance -230 -600 -220 -200 Meds/Results Medications: Active Medications Generic Name Dose Route Start Last Admin Trade Name Freq PRN Reason Stop Dose Admin Acetaminophen 650 mg 07/31/24 23:43 08/02/24 09:31 Acetaminophen 325 Mg Tablet PO 650 mg Q6H PRN Administration Mild Pain (1-3) or Fever Albuterol/Ipratropium 3 ml 08/01/24 02:00 08/05/24 08:31 Ipratropium 0.5 Mg/Albuterol Sulfate 2.5 Mg Ampul.Neb 3 Ml INHALATION 3 ml Q6HRT MARTIN Administration Benzonatate 100 mg 07/31/24 23:44 Benzonatate 100 Mg Capsule PO TID PRN Cough Buspirone HCl 20 mg 08/01/24 08:30 08/04/24 19:07 Buspirone Hcl 10 Mg Tablet PO 20 mg 0830,1330,1930 MARTIN Administration Carvedilol 12.5 mg 07/31/24 23:45 08/04/24 21:46 Carvedilol 12.5 Mg Tablet PO 12.5 mg Q12HR MARTIN Administration Cyclosporine 1 drop 08/01/24 09:00 08/04/24 21:46 Cyclosporine 0.4 Ml Ophth Solution EACH EYE 1 drop Q12HR MARTIN Administration Famotidine 20 mg 08/01/24 09:00 08/04/24 21:46 Famotidine 20 Mg Tablet PO 20 mg Q12HR MARTIN Administration Ferrous Sulfate 325 mg 08/01/24 09:00 08/04/24 17:54 Ferrous Sulfate [address] PO 325 mg BID MARTIN Administration Flecainide Acetate 150 mg 08/01/24 00:05 08/04/24 21:46 Flecainide Acetate 50 Mg Tablet PO 150 mg Q12HR MARTIN Administration Furosemide 40 mg 08/03/24 09:15 08/04/24 17:55 Furosemide Inj 40 Mg/4 Ml Vial IV PUSH 40 mg BID MARTIN Administration Guaifenesin 600 mg 08/01/24 09:00 08/04/24 21:46 Guaifenesin 12 Hr 600 Mg Tabcr PO 600 mg Q12HR MARTIN Administration Hydralazine HCl 50 mg 08/01/24 01:02 Hydralazine Hcl 25 Mg Tablet PO DAILY PRN Hypertension Losartan Potassium 25 mg 08/01/24 09:00 08/04/24 09:32 Losartan Potassium 25 Mg Tablet PO 25 mg DAILY MARTIN Administration Perflutren Lipid Microsphere 0 ml 08/03/24 09:09 Perflutren Lipid Microspheres 1.5 Ml Vial Diluted To 10 Ml Total Volume IV PUSH 08/06/24 09:09 ONCE PRN adequate visualization Protocol Polyethylene Glycol 17 gm 08/02/24 10:11 08/04/24 09:32 Polyethylene Glycol 3350 17 Gm Powd.Pack PO 17 gm QAM PRN Administration Constipation Rivaroxaban 15 mg 08/01/24 18:00 08/04/24 17:54 Rivaroxaban 15 Mg Tablet PO 15 mg QPM MARTIN Administration Senna/Docusate Sodium 1 tab 08/01/24 21:00 08/04/24 21:46 Senna/Docusate Sodium Tablet PO 1 tab HS MARTIN Administration Tamsulosin HCl 0.4 mg 08/01/24 09:00 08/04/24 09:31 Tamsulosin Hcl 0.4 Mg Capsule PO 0.4 mg QAM MARTIN Administration Vitamin D 1,000 units 08/01/24 09:00 08/04/24 09:31 Cholecalciferol 1,000 Units Tablet PO 1,000 units DAILY MARTIN Administration Radiology Results: ITS Impressions Chest CTA 07/31/24 17:21 IMPRESSION: No pulmonary embolus. No thoracic aortic dissection. Redemonstration of advanced/severe pulmonary edema, as detailed above. Bilateral pleural effusions (right greater than left), decreased in size from previous examination. Abdomen Ultrasound 08/01/24 08:44 IMPRESSION: Possible small right pleural effusion. Otherwise, normal limited abdominal ultrasound. Chest X-Ray 08/03/24 10:16 Impression: 1: Cardiomegaly with mild interstitial edema. 2: Small pleural effusions. Labs Labs: Laboratory Results - last 24 hr 08/05/24 05:37 WBC 10.6 H RBC 3.01 L Hgb 9.4 L Hct 29.7 L MCV 98.7 MCH 31.2 MCHC 31.6 L RDW 15.9 H Plt Count 389 H MPV 8.7 Immature Gran % (Auto) 1.6 H Neut % (Auto) 62.9 Lymph % (Auto) 24.4 [place] % (Auto) 9.6 H Eos % (Auto) 0.9 Baso % (Auto) 0.6 Lymph # (Auto) 2.59 [place] # (Auto) 1.0 H Eos # (Auto) 0.1 Baso # (Auto) 0.1 Abs Immat Gran (auto) 0.17 H Absolute Neuts (auto) 6.7 Absolute Nucleated RBC 0.000 Nucleated RBC % 0.0 Sodium 136 L Potassium 3.9 Chloride 96 L Carbon Dioxide 35 H Anion Gap 5 BUN 20 H Creatinine 0.78 Estim Creat Clear Calc 44 Estimated GFR > 60 Glucose 91 Calcium 8.9 Total Bilirubin 0.5 AST 61 H ALT 240 H Alkaline Phosphatase 102 Total Protein 6.0 L Albumin 3.0 L
[2024-08-05] MEDS: busPIRone HCL 10 MG TABLET 20 MG PO ×3 (08:55→19:26)
[2024-08-05] MEDS: TAMSULOSIN HCL 0.4 MG CAPSULE PO (08:55)
[2024-08-05] MEDS: carvediloL 12.5 MG TABLET PO ×2 (08:55→21:13)
[2024-08-05] MEDS: CHOLECALCIFEROL 1,000 UNITS TABLET 1000 UNITS PO (08:55)
[2024-08-05] MEDS: guaiFENesin 12 HR 600 MG TABCR PO ×2 (08:56→21:14)
[2024-08-05] MEDS: FERROUS SULFATE 325 MG TABLET DR PO ×2 (08:56→17:13)
[2024-08-05] MEDS: FAMOTIDINE 20 MG TABLET PO (08:56)
[2024-08-05] MEDS: FLECAINIDE ACETATE 50 MG TABLET 150 MG PO ×2 (08:56→21:13)
[2024-08-05] MEDS: LOSARTAN POTASSIUM 25 MG TABLET PO (08:56)
--- NOTE | 2024-08-05 08:56 | PCSTNOTE ---
Please refer to the Modified Barium Swallow Evaluation in the EMR. The above pleasant and cooperative patient was seen for an inpatient modified barium swallow. She was alert and able to answer simple questions related to eating, specifically if she was having any difficulty. She stated to her provider that she only occasionally has difficulty swallowing. She is currently on a regular diet. Her oral mucosa is dry, and her vocal quality is clear. The patient was seated for a lateral view and presented with 5cc of thin liquid barium via spoon, pudding consistency barium via a spoon, cracker coated with barium pudding via spoon, and uncontrolled thin liquid barium. This was presented via a cup & straw. Oral preparatory and oral phase symptoms: none. Pharyngeal phase symptoms: WFL as trace pyriform sinus residue was noted but cleared with a dry swallow. Esophageal stage symptoms: none. No aspiration occurred. Impressions: Swallow Ability is WFL No further ST is warranted at this time.
[2024-08-05] MEDS: FUROSEMIDE INJ 40 MG/4 ML VIAL IV PUSH ×2 (08:57→17:13)
[2024-08-05] MEDS: cycloSPORINE 0.4 ML OPHTH SOLUTION 1 DROP EACH EYE ×2 (08:57→21:14)
--- NOTE | 2024-08-05 10:16 | PCOTNOTE ---
The patient treatment was not able to be completed. Patient just finished working with PT but BP is low and needs rest. Will plan to continue treatment per plan of care.
[2024-08-05] MEDS: MAG HYDROX/AL HYDROX/SIMETH 30 ML UDC PO (13:21)
[2024-08-05] MEDS: PANTOPRAZOLE 40 MG TABLET PO (13:21)
[2024-08-05] MEDS: MAG HYDROX/AL HYDROX/SIMETH 30 ML UDC (14:00)
--- NOTE | 2024-08-05 14:51 | PM.PNPUL ---
Progress Note: A&P Assessment and Plan (1) Acute respiratory failure with hypoxia: Code(s): J96.01 - Acute respiratory failure with hypoxia Status: Acute Assessment and Plan: This 83-year-old female was hospitalized with respiratory failure, primarily hypoxemic respiratory failure, characterized by bilateral pulmonary infiltrates and bilateral pleural effusions, which began approximately one month ago when the patient initially presented with hypoxemic respiratory failure and tested positive for COVID-[address]. [address] revealed extensive bilateral infiltrates and bilateral pleural effusions, with a BNP mildly elevated at around 1000. Since then, the patient has exhibited partial clearing of the bilateral infiltrates and a decrease in the size of the bilateral pleural effusions. The most recent CT showed mostly faded infiltrates bilaterally, with a distribution similar to the initial chest CT performed one month ago when respiratory failure started. Likewise, the pleural effusions have decreased in size. During this hospitalization, the BNP was significantly elevated at over 6000. The patient also has highly elevated liver enzymes with a normal CPK, the etiology of which remains unclear. Over the past month, the patient has been treated for congestive heart failure, pneumonia with various antibiotics, and a COVID-19 infection with remdesivir and dexamethasone during the initial hospitalization, as well as COPD. While some findings on the chest imaging, such as bilateral pleural effusions, could be attributed to congestive heart failure, the chronicity and relatively unchanged distribution of the bilateral infiltrates?now appearing less dense and faded?suggest that the initial respiratory failure may have been secondary to the COVID-19 infection, with superimposed congestive heart failure. The persistently elevated CRP further supports the presence of lung inflammation. The pleural effusions are most likely related to superimposed congestive heart failure or fluid overload. The patient mentioned being advised to drink more than 1.5 liters of water daily, which she has been doing. She is also on flecainide, which rarely can cause interstitial lung disease; however, the partial clearing of the infiltrates despite continued use of the medication does not support this condition. Respiratory status stable over the last 24 hours while the patient is on higher dose of furosemide for congestive heart failure. On physical exam today she has significantly decreased crackles at bases posteriorly. Has been on room air for the last 24 hours. Video swallow study negative for dysphagia. Echocardiogram pending. Clearing of infiltrates also noted on latest chest x-ray. Plan: Anticipate discharge home in a.m. from respiratory standpoint. Out of bed to chair. She will need home oxygen evaluation before going home. (2) Pulmonary edema: Code(s): J81.1 - Chronic pulmonary edema Status: Acute (3) Liver enzyme elevation: Code(s): R74.8 - Abnormal levels of other serum enzymes Status: Acute (4) Personal history of COVID-19: Code(s): Z86.16 - Personal history of COVID-19 Status: Acute Subjective Date/time seen: 08/05/24 14:51 Interval history: Patient has no new respiratory symptoms. Has been on room air while receiving treatment for congestive heart failure. Underwent video swallow study which was essentially unremarkable. Review of Systems Review of Systems: All systems reviewed & are unremarkable except as noted in HPI and below (HPI and below) Exam Narrative: GENERAL APPEARANCE: Well developed, well nourished, alert and cooperative, and appears to be in no acute distress while on supplemental oxygen via nasal cannula SKIN: Inspection of the skin reveals no rashes, ulcerations or petechiae. HEENT: Sclerae anicteric and conjunctivae pink and moist. Extraocular movements were intact and pupils were equal, round, and reactive to light. The oral mucosa, hard and soft palate, tongue and posterior pharynx were normal. NECK: Supple. There was no thyroid enlargement, and no tenderness, or masses were felt. LUNGS: Ray crackles at bases posteriorly no wheezing CARDIAC: There was a regular rate and rhythm without any murmurs, gallops, rubs. ABDOMEN: Soft and nontender with normal bowel sounds. There was no organomegaly. LYMPH NODES: No lymphadenopathy was appreciated in the neck. EXTREMITIES: No cyanosis, clubbing; trace pedal edema left lower extremity. NEUROLOGIC: Alert and oriented x 3. Normal affect. Objective Data Vital Signs Vital Signs: Vital Signs - 24 hr 08/04/24 15:18 08/04/24 16:27 08/04/24 19:19 Temperature 36.5 C Pulse Rate 59 L 60 65 Respiratory Rate 16 18 Blood Pressure 92/52 L Pulse Oximetry 96 Oxygen Delivery Fraction of Inspired Oxygen 08/04/24 19:30 08/04/24 20:00 08/04/24 21:46 Temperature Pulse Rate 62 65 60 Respiratory Rate 18 Blood Pressure Pulse Oximetry Oxygen Delivery Fraction of Inspired Oxygen 08/04/24 21:46 08/04/24 22:05 08/05/24 00:00 Temperature 36.5 C Pulse Rate 60 58 L 60 Respiratory Rate 18 Blood Pressure 111/48 L Pulse Oximetry 96 Oxygen Delivery Fraction of Inspired Oxygen 08/05/24 01:19 08/05/24 01:19 08/05/24 01:27 Temperature Pulse Rate 61 60 Respiratory Rate 16 16 Blood Pressure Pulse Oximetry 93 Oxygen Delivery Room Air Fraction of Inspired Oxygen 08/05/24 04:00 08/05/24 06:00 08/05/24 08:31 Temperature 36.2 C L Pulse Rate 62 59 L Respiratory Rate 18 Blood Pressure 126/50 L Pulse Oximetry 97 92 Oxygen Delivery Room Air Fraction of Inspired Oxygen 08/05/24 08:31 08/05/24 08:39 08/05/24 08:55 Temperature Pulse Rate 62 61 68 Respiratory Rate 16 16 Blood Pressure Pulse Oximetry Oxygen Delivery Fraction of Inspired Oxygen 08/05/24 10:00 Temperature Pulse Rate Respiratory Rate Blood Pressure 94/46 L Pulse Oximetry Oxygen Delivery Fraction of Inspired Oxygen Intake/Output Intake/Output: Intake & Output 08/02/24 08/03/24 08/04/24 08/05/24 23:59 23:59 23:59 23:59 Intake Total 1120 1100 1480 520 Output Total 1350 1700 1700 600 Balance -230 -600 -220 -80 Meds/Results Medications: Active Medications Generic Name Dose Route Start Last Admin Trade Name Freq PRN Reason Stop Dose Admin Acetaminophen 650 mg 07/31/24 23:43 08/02/24 09:31 Acetaminophen 325 Mg Tablet PO 650 mg Q6H PRN Administration Mild Pain (1-3) or Fever Albuterol/Ipratropium 3 ml 08/01/24 02:00 08/05/24 08:31 Ipratropium 0.5 Mg/Albuterol Sulfate 2.5 Mg Ampul.Neb 3 Ml INHALATION 3 ml Q6HRT MARTIN Administration Benzonatate 100 mg 07/31/24 23:44 Benzonatate 100 Mg Capsule PO TID PRN Cough Buspirone HCl 20 mg 08/01/24 08:30 08/05/24 13:20 Buspirone Hcl 10 Mg Tablet PO 20 mg 0830,1330,1930 MARTIN Administration Carvedilol 12.5 mg 07/31/24 23:45 08/05/24 08:55 Carvedilol 12.5 Mg Tablet PO 12.5 mg Q12HR MARTIN Administration Cyclosporine 1 drop 08/01/24 09:00 08/05/24 08:57 Cyclosporine 0.4 Ml Ophth Solution EACH EYE 1 drop Q12HR MARTIN Administration Ferrous Sulfate 325 mg 08/01/24 09:00 08/05/24 08:56 Ferrous Sulfate [address] PO 325 mg BID MARTIN Administration Flecainide Acetate 150 mg 08/01/24 00:05 08/05/24 08:56 Flecainide Acetate 50 Mg Tablet PO 150 mg Q12HR MARTIN Administration Furosemide 40 mg 08/03/24 09:15 08/05/24 08:57 Furosemide Inj 40 Mg/4 Ml Vial IV PUSH 40 mg BID MARTIN Administration Guaifenesin 600 mg 08/01/24 09:00 08/05/24 08:56 Guaifenesin 12 Hr 600 Mg Tabcr PO 600 mg Q12HR MARTIN Administration Hydralazine HCl 50 mg 08/01/24 01:02 Hydralazine Hcl 25 Mg Tablet PO DAILY PRN Hypertension Losartan Potassium 25 mg 08/01/24 09:00 08/05/24 08:56 Losartan Potassium 25 Mg Tablet PO 25 mg DAILY MARTIN Administration Pantoprazole Sodium 40 mg 08/05/24 09:15 08/05/24 13:21 Pantoprazole 40 Mg Tablet PO 40 mg QAM MARTIN Administration Perflutren Lipid Microsphere 0 ml 08/03/24 09:09 Perflutren Lipid Microspheres 1.5 Ml Vial Diluted To 10 Ml Total Volume IV PUSH 08/06/24 09:09 ONCE PRN adequate visualization Protocol Polyethylene Glycol 17 gm 08/02/24 10:11 08/04/24 09:32 Polyethylene Glycol 3350 17 Gm Powd.Pack PO 17 gm QAM PRN Administration Constipation Rivaroxaban 15 mg 08/01/24 18:00 08/04/24 17:54 Rivaroxaban 15 Mg Tablet PO 15 mg QPM MARTIN Administration Senna/Docusate Sodium 1 tab 08/01/24 21:00 08/04/24 21:46 Senna/Docusate Sodium Tablet PO 1 tab HS MARTIN Administration Tamsulosin HCl 0.4 mg 08/01/24 09:00 08/05/24 08:55 Tamsulosin Hcl 0.4 Mg Capsule PO 0.4 mg QAM MARTIN Administration Vitamin D 1,000 units 08/01/24 09:00 08/05/24 08:55 Cholecalciferol 1,000 Units Tablet PO 1,000 units DAILY MARTIN Administration Radiology Results: ITS Impressions Chest CTA 07/31/24 17:21 IMPRESSION: No pulmonary embolus. No thoracic aortic dissection. Redemonstration of advanced/severe pulmonary edema, as detailed above. Bilateral pleural effusions (right greater than left), decreased in size from previous examination. Abdomen Ultrasound 08/01/24 08:44 IMPRESSION: Possible small right pleural effusion. Otherwise, normal limited abdominal ultrasound. Chest X-Ray 08/05/24 09:39 IMPRESSION: Minimal opacification the right lung base which is slightly improved compared to previous study. Otherwise, unchanged. Modified Barium Swallow 08/05/24 11:35 IMPRESSION: 1. No laryngeal penetration or aspiration. 2. Please refer to the speech therapy report for recommendations. Labs Labs: Laboratory Results - last 24 hr 08/05/24 05:37 WBC 10.6 H RBC 3.01 L Hgb 9.4 L Hct 29.7 L MCV 98.7 MCH 31.2 MCHC 31.6 L RDW 15.9 H Plt Count 389 H MPV 8.7 Immature Gran % (Auto) 1.6 H Neut % (Auto) 62.9 Lymph % (Auto) 24.4 [place] % (Auto) 9.6 H Eos % (Auto) 0.9 Baso % (Auto) 0.6 Lymph # (Auto) 2.59 [place] # (Auto) 1.0 H Eos # (Auto) 0.1 Baso # (Auto) 0.1 Abs Immat Gran (auto) 0.17 H Absolute Neuts (auto) 6.7 Absolute Nucleated RBC 0.000 Nucleated RBC % 0.0 Sodium 136 L Potassium 3.9 Chloride 96 L Carbon Dioxide 35 H Anion Gap 5 BUN 20 H Creatinine 0.78 Estim Creat Clear Calc 44 Estimated GFR > 60 Glucose 91 Calcium 8.9 Total Bilirubin 0.5 AST 61 H ALT 240 H Alkaline Phosphatase 102 Total Protein 6.0 L Albumin 3.0 L
[2024-08-05] MEDS: RIVAROXABAN 15 MG TABLET PO (17:13)
[2024-08-05] MEDS: SENNA/DOCUSATE SODIUM TABLET 1 TAB PO (21:14)
[2024-08-06] VITALS (18 sets, daily range): BP systolic 100–126; BP diastolic 49–58; PULSE 59–73; RESP 14–18; TEMP 35.9–36.4; O2SAT 94–100
[2024-08-06] MEDS: IPRATROPIUM 0.5 MG/ALBUTEROL SULFATE 2.5 MG AMPUL.NEB 3 ML INHALATION (02:52)
[2024-08-06 05:51] LABS: Basophils Percent Auto 0.3 % (0.2-1.2); Eosinophils Absolute Auto 0.1 K/mm3 (0-0.3); Eosinophils Percent Auto 0.8 % (0-4.4); Hematocrit 30.9 % (37.0-47.0); Hemoglobin 9.6 g/dL (12.0-15.0); Immature Granulocyte Absolute 0.14 K/mm3 (0.00-0.031); Immature Granulocyte Percent A 1.4 % (0-0.5); Lymphocytes Absolute Auto 2.79 K/mm3 (0.9-3.2); Mean Corpuscular HGB Conc 31.1 g/dl (32-36); Mean Corpuscular Hemoglobin 30.4 pg (26-34); Mean Corpuscular Volume 97.8 fl (80-100); Mean Platelet Volume 8.3 fl (7.4-10.4); Monocytes Absolute Auto 0.9 K/mm3 (0.1-0.6); Monocytes Percent Auto 9.3 % (2.6-8.5); Neutrophils Percent Auto 60.2 % (45.5-73.1); Platelet Count Result 367 k/mm3 (150-375); Red Blood Count 3.16 M/mm3 (4.2-5.4); Red Cell Distribution Width 15.9 % (11.5-14.5)
[2024-08-06 06:00] LABS: Alanine Aminotransferase 190 U/L (6-35); Albumin Level 3.1 g/dL (3.5-5.1); Alkaline Phosphatase 111 U/L (38-126); Anion Gap 5 mmol/L (4-12); Aspartate Amino Transferase 49 U/L (14-36); Bilirubin,Total 0.4 mg/dL (0.2-1.3); Blood Urea Nitrogen 20 mg/dL (7-17); Calcium 8.9 mg/dL (8.4-10.2); Carbon Dioxide 38 mmol/L (22-30); Chloride 93 mmol/L (98-107); Estimated CRCL calculation 38 ml/min; Estimated Glomerular Filt Rate 58; Glucose 94 mg/dL (65-110); Potassium 3.5 mmol/L (3.4-5.0); Sodium 136 mmol/L (137-145)
[2024-08-06] MEDS: PANTOPRAZOLE 40 MG TABLET PO (08:43)
[2024-08-06] MEDS: FERROUS SULFATE 325 MG TABLET DR PO ×2 (08:43→17:33)
[2024-08-06] MEDS: CHOLECALCIFEROL 1,000 UNITS TABLET 1000 UNITS PO (08:43)
[2024-08-06] MEDS: cycloSPORINE 0.4 ML OPHTH SOLUTION 1 DROP EACH EYE ×2 (08:43→20:36)
[2024-08-06] MEDS: TAMSULOSIN HCL 0.4 MG CAPSULE PO (08:43)
[2024-08-06] MEDS: guaiFENesin 12 HR 600 MG TABCR PO ×2 (08:43→20:36)
[2024-08-06] MEDS: FLECAINIDE ACETATE 50 MG TABLET 150 MG PO ×2 (08:48→20:34)
[2024-08-06] MEDS: carvediloL 12.5 MG TABLET PO ×2 (08:49→20:36)
[2024-08-06] MEDS: FUROSEMIDE INJ 40 MG/4 ML VIAL IV PUSH (08:50)
[2024-08-06] MEDS: busPIRone HCL 10 MG TABLET 20 MG PO ×3 (08:52→20:34)
--- NOTE | 2024-08-06 10:45 | PM.PNPUL ---
Progress Note: A&P Assessment and Plan (1) Acute respiratory failure with hypoxia: Code(s): J96.01 - Acute respiratory failure with hypoxia Status: Acute Assessment and Plan: This 83-year-old female was hospitalized with respiratory failure, primarily hypoxemic respiratory failure, characterized by bilateral pulmonary infiltrates and bilateral pleural effusions, which began approximately one month ago when the patient initially presented with hypoxemic respiratory failure and tested positive for COVID-19. The initial chest CT revealed extensive bilateral infiltrates and bilateral pleural effusions, with a BNP mildly elevated at around 1000. Since then, the patient has exhibited partial clearing of the bilateral infiltrates and a decrease in the size of the bilateral pleural effusions. The most recent CT showed mostly faded infiltrates bilaterally, with a distribution similar to the initial chest CT performed one month ago when respiratory failure started. Likewise, the pleural effusions have decreased in size. During this hospitalization, the BNP was significantly elevated at over 6000. The patient also has highly elevated liver enzymes with a normal CPK, the etiology of which remains unclear. Over the past month, the patient has been treated for congestive heart failure, pneumonia with various antibiotics, and a COVID-19 infection with remdesivir and dexamethasone during the initial hospitalization, as well as COPD. While some findings on the chest imaging, such as bilateral pleural effusions, could be attributed to congestive heart failure, the chronicity and relatively unchanged distribution of the bilateral infiltrates?now appearing less dense and faded?suggest that the initial respiratory failure may have been secondary to the COVID-19 infection, with superimposed congestive heart failure. The persistently elevated CRP further supports the presence of lung inflammation. The pleural effusions are most likely related to superimposed congestive heart failure or fluid overload. The patient mentioned being advised to drink more than 1.5 liters of water daily, which she has been doing. She is also on flecainide, which rarely can cause interstitial lung disease; however, the partial clearing of the infiltrates despite continued use of the medication does not support this condition. Respiratory status stable over the last 24 hours while the patient is on higher dose of furosemide for congestive heart failure. On physical exam today she has significantly decreased crackles at bases posteriorly. Has been on room air for the last 48 hours. Video swallow study negative for dysphagia. Echocardiogram pending. Clearing of infiltrates also noted on latest chest x-ray. Plan: Patient can be discharged from respiratory standpoint. She will need home oxygen evaluation prior to discharge home. No need to take any medications for lung disease although she has albuterol rescue inhaler at home for p.r.n. use. Instructed the patient to make an appointment to be seen in the outpatient pulmonary clinic for follow-up in approximately 3-4 weeks. I will sign off please call with any questions. (2) Pulmonary edema: Code(s): J81.1 - Chronic pulmonary edema Status: Acute (3) Liver enzyme elevation: Code(s): R74.8 - Abnormal levels of other serum enzymes Status: Acute (4) Personal history of COVID-19: Code(s): Z86.16 - Personal history of COVID-19 Status: Acute Subjective Date/time seen: 08/06/24 10:45 Interval history: Patient has no new respiratory symptoms has been off supplemental oxygen for the last 24 hours. Eager to go home Review of Systems Review of Systems: All systems reviewed & are unremarkable except as noted in HPI and below (HPI and below) Exam Narrative: GENERAL APPEARANCE: Well developed, well nourished, alert and cooperative, and appears to be in no acute distress while on supplemental oxygen via nasal cannula SKIN: Inspection of the skin reveals no rashes, ulcerations or petechiae. HEENT: Sclerae anicteric and conjunctivae pink and moist. Extraocular movements were intact and pupils were equal, round, and reactive to light. The oral mucosa, hard and soft palate, tongue and posterior pharynx were normal. NECK: Supple. There was no thyroid enlargement, and no tenderness, or masses were felt. LUNGS: Ray crackles at bases posteriorly no wheezing CARDIAC: There was a regular rate and rhythm without any murmurs, gallops, rubs. ABDOMEN: Soft and nontender with normal bowel sounds. There was no organomegaly. LYMPH NODES: No lymphadenopathy was appreciated in the neck. EXTREMITIES: No cyanosis, clubbing; trace pedal edema left lower extremity. NEUROLOGIC: Alert and oriented x 3. Normal affect. Objective Data Vital Signs Vital Signs: Vital Signs - 24 hr 08/05/24 12:00 08/05/24 14:49 08/05/24 14:54 Temperature 36.3 C L Pulse Rate 60 59 L 60 Respiratory Rate 16 16 Blood Pressure 82/45 L Pulse Oximetry 100 08/05/24 15:00 08/05/24 16:00 08/05/24 20:00 Temperature Pulse Rate 60 62 64 Respiratory Rate 16 Blood Pressure Pulse Oximetry 08/05/24 21:13 08/05/24 21:13 08/05/24 21:13 Temperature Pulse Rate 60 60 60 Respiratory Rate 14 Blood Pressure Pulse Oximetry 08/05/24 21:18 08/05/24 22:54 08/06/24 00:00 Temperature 36.3 C L Pulse Rate 63 63 60 Respiratory Rate 14 18 Blood Pressure 100/45 L Pulse Oximetry 96 08/06/24 00:58 08/06/24 02:53 08/06/24 04:00 Temperature Pulse Rate 60 60 Respiratory Rate 14 Blood Pressure 100/50 L Pulse Oximetry 08/06/24 06:00 08/06/24 08:05 08/06/24 08:20 Temperature 36.4 C Pulse Rate 60 61 Respiratory Rate 16 Blood Pressure 126/49 L 122/53 L Pulse Oximetry 94 08/06/24 08:25 08/06/24 08:40 08/06/24 08:48 Temperature Pulse Rate 73 Respiratory Rate Blood Pressure 118/52 L 106/55 L Pulse Oximetry 08/06/24 08:49 Temperature Pulse Rate 73 Respiratory Rate Blood Pressure Pulse Oximetry Intake/Output Intake/Output: Intake & Output 08/03/24 08/04/24 08/05/24 08/06/24 23:59 23:59 23:59 23:59 Intake Total 1100 1480 2400 520 Output Total 1700 1700 2300 1600 Balance -600 -220 100 -1080 Meds/Results Medications: Active Medications Generic Name Dose Route Start Last Admin Trade Name Ricq PRN Reason Stop Dose Admin Acetaminophen 650 mg 07/31/24 23:43 08/02/24 09:31 Acetaminophen 325 Mg Tablet PO 650 mg Q6H PRN Administration Mild Pain (1-3) or Fever Albuterol/Ipratropium 3 ml 08/01/24 02:00 08/06/24 09:31 Ipratropium 0.5 Mg/Albuterol Sulfate 2.5 Mg Ampul.Neb 3 Ml INHALATION Not Given Q6HRT MARTIN Benzonatate 100 mg 07/31/24 23:44 Benzonatate 100 Mg Capsule PO TID PRN Cough Buspirone HCl 20 mg 08/01/24 08:30 08/06/24 08:52 Buspirone Hcl 10 Mg Tablet PO 20 mg 0830,1330,1930 MARTIN Administration Carvedilol 12.5 mg 07/31/24 23:45 08/06/24 08:49 Carvedilol 12.5 Mg Tablet PO 12.5 mg Q12HR MARTIN Administration Cyclosporine 1 drop 08/01/24 09:00 08/06/24 08:43 Cyclosporine 0.4 Ml Ophth Solution EACH EYE 1 drop Q12HR MARTIN Administration Ferrous Sulfate 325 mg 08/01/24 09:00 08/06/24 08:43 Ferrous Sulfate [address] PO 325 mg BID MARTIN Administration Flecainide Acetate 150 mg 08/01/24 00:05 08/06/24 08:48 Flecainide Acetate 50 Mg Tablet PO 150 mg Q12HR MARTIN Administration Furosemide 40 mg 08/03/24 09:15 08/06/24 08:50 Furosemide Inj 40 Mg/4 Ml Vial IV PUSH 40 mg BID MARTIN Administration Guaifenesin 600 mg 08/01/24 09:00 08/06/24 08:43 Guaifenesin 12 Hr 600 Mg Tabcr PO 600 mg Q12HR MARTIN Administration Hydralazine HCl 50 mg 08/01/24 01:02 Hydralazine Hcl 25 Mg Tablet PO DAILY PRN Hypertension Losartan Potassium 25 mg 08/01/24 09:00 08/06/24 08:50 Losartan Potassium 25 Mg Tablet PO Not Given DAILY MARTIN Pantoprazole Sodium 40 mg 08/05/24 09:15 08/06/24 08:43 Pantoprazole 40 Mg Tablet PO 40 mg QAM MARTIN Administration Polyethylene Glycol 17 gm 08/02/24 10:11 08/04/24 09:32 Polyethylene Glycol 3350 17 Gm Powd.Pack PO 17 gm QAM PRN Administration Constipation Rivaroxaban 15 mg 08/01/24 18:00 08/05/24 17:13 Rivaroxaban 15 Mg Tablet PO 15 mg QPM MARTIN Administration Senna/Docusate Sodium 1 tab 08/01/24 21:00 08/05/24 21:14 Senna/Docusate Sodium Tablet PO 1 tab HS MARTIN Administration Tamsulosin HCl 0.4 mg 08/01/24 09:00 08/06/24 08:43 Tamsulosin Hcl 0.4 Mg Capsule PO 0.4 mg QAM MARTIN Administration Vitamin D 1,000 units 08/01/24 09:00 08/06/24 08:43 Cholecalciferol 1,000 Units Tablet PO 1,000 units DAILY MARTIN Administration Radiology Results: ITS Impressions Chest CTA 07/31/24 17:21 IMPRESSION: No pulmonary embolus. No thoracic aortic dissection. Redemonstration of advanced/severe pulmonary edema, as detailed above. Bilateral pleural effusions (right greater than left), decreased in size from previous examination. Abdomen Ultrasound 08/01/24 08:44 IMPRESSION: Possible small right pleural effusion. Otherwise, normal limited abdominal ultrasound. Chest X-Ray 08/05/24 09:39 IMPRESSION: Minimal opacification the right lung base which is slightly improved compared to previous study. Otherwise, unchanged. Modified Barium Swallow 08/05/24 11:35 IMPRESSION: 1. No laryngeal penetration or aspiration. 2. Please refer to the speech therapy report for recommendations. Labs Labs: Laboratory Results - last 24 hr 08/06/24 05:31 WBC 10.0 RBC 3.16 L Hgb 9.6 L Hct 30.9 L MCV 97.8 MCH 30.4 MCHC 31.1 L RDW 15.9 H Plt Count 367 MPV 8.3 Immature Gran % (Auto) 1.4 H Neut % (Auto) 60.2 Lymph % (Auto) 28.0 [place] % (Auto) 9.3 H Eos % (Auto) 0.8 Baso % (Auto) 0.3 Lymph # (Auto) 2.79 [place] # (Auto) 0.9 H Eos # (Auto) 0.1 Baso # (Auto) 0.0 Abs Immat Gran (auto) 0.14 H Absolute Neuts (auto) 6.0 Absolute Nucleated RBC 0.000 Nucleated RBC % 0.0 Sodium 136 L Potassium 3.5 Chloride 93 L Carbon Dioxide 38 H Anion Gap 5 BUN 20 H Creatinine 0.92 Estim Creat Clear Calc 38 Estimated GFR 58 L Glucose 94 Calcium 8.9 Total Bilirubin 0.4 AST 49 H ALT 190 H Alkaline Phosphatase 111 Total Protein 6.0 L Albumin 3.1 L
--- NOTE | 2024-08-06 11:18 | P.PNIM_ITS ---
Progress Note: A&P Assessment and Plan (1) Diastolic dysfunction: Code(s): I51.89 - Other ill-defined heart diseases Status: Acute (2) Pneumonia: Qualifiers: Laterality: bilateral Lung location: unspecified part of lung Pneumonia type: due to unspecified organism Qualified Code(s): J18.9 - Pneumoni a, unspecified organism Code(s): J18.9 - Pneumonia, unspecified organism Status: Acute Plan Acute on chronic Diastolic dysfunction: Code(s): I51.89 - Other ill-defined heart diseases Status: Acute Assessment and Plan: Acute on chronic BNP 6460, previously 1480 in 07/28 most recent echo (07/04/24): Normal biventricular size and systolic function, moderate concentric left ventricular hypertrophy, no significant valvular disease. Cardiology consulted Still overloaded, continuation of Lasix 40 mg IVP BID for now. Repeat chest x-ray 08/05 : No pneumothorax. Minimal opacification in the right lung base is seen which may indicate atelectasis versus pneumonia which is slightly improved compared to previous study. change to lasix 20 mg bid po today Pneumonia: Qualifiers: Pneumonia type: due to unspecified organism Code(s): J18.9 - Pneumonia, unspecified organism Status: Acute Assessment and Plan: No pneumonia seen on CT, pulmonary edema -stop Cefepime, azithromycin, and vancomycin per pulmonology recommendations - MRSA PCR not detected on 07/31/2024 - Viral PCR negative Barium swallow showed no aspiration per speech evaluation Acute respiratory failure with hypoxemia Code(s): R09.02 - Hypoxemia Status: Acute Assessment and Plan: Secondary to pulmonary edema - chest CTA: No pulmonary embolus. No thoracic aortic dissection. Re-demonstration of advanced/severe pulmonary edema, Bilateral pleural effusions (right greater than left), decreased in size from previous examination. pulmonology consulted recommendations for cardiology consult and discontinue antibiotics and steroids. Patient is on 1 L oxygen GERD Patient has burning sensation in the epigastric region, but denies nausea vomiting Switch from Pepcid to Protonix 40 mg p.o. Maalox 30 mL once Transaminitis: Code(s): R74.01 - Elevation of levels of liver transaminase levels Status: Deleted Assessment and Plan: On admission- AST 2702, ALT 1210, total bilirubin 0.7, alk-phos 125 on 07/31/2024 hepatitis panel pending CK, lipase within normal limits RUQ ultrasound normal liver CMP in the a.m. GI consulted Continuing to trend downward. asymptomatic. (5) Hypokalemia: Code(s): E87.6 - Hypokalemia Status: Acute Assessment and Plan: Repleted TRISTIN (acute kidney injury): Code(s): N17.9 - Acute kidney failure, unspecified Status: Resolved Assessment and Plan: Improving No history of CKD, creatinine on admission 1.17 DC IV hydration due to pulmonary edema Daily BMP Essential (primary) hypertension Code(s): I10 - Essential (primary) hypertension Status: Chronic Assessment and Plan: - chronic, currently 127/65 - continue home medications: losartan, flecainide, hydralazine p.r.n., carvedilol Blood pressure on the lower side Hold losartan, Monitor vital signs (8) Leukocytosis: Code(s): D72.829 - Elevated white blood cell count, unspecified Status: Resolved Assessment and Plan: WBC on admission 17.6, 9.4 on 08/[address] shows pulmonary edema, no PE, no pneumonia UA negative for infection Blood cultures preliminary results showed no initial growth No signs of soft tissue infection Antibiotics for pneumonia been discontinued per pulmonary's recommendations Will monitor leukocytosis CRP 12.5 Hepatitis negative Resolved now at 9.0. Constipation: Qualifiers: Constipation type: unspecified constipation type Qualified Code(s): K59.00 - Constipation, unspecified Code(s): K59.00 - Constipation, unspecified Status: Acute Assessment and Plan: - Polyethylene Glycol 3350 ordered PRN May discharge patient tomorrow if condition continue to improve Subjective Date/time seen: 08/06/24 11:18 Interval history: I saw examined patient today. Feels comfortable, denies chest pain, shortness of breath Patient is afebrile, blood pressure stable Labs are reviewed. Exam 2 Narrative: GENERAL: Pleasant, in no acute distress. Well-nourished. - EYES: EOMI. Anicteric. - HENT: Moist mucous membranes. - LUNGS: Crackles bilateral base, promi nent right lower base - CARDIOVASCULAR: Regular rate and rhyth m. No murmur. No JVD. - ABDOMEN: Soft, somewhat epigastric ten liliane and non-distended. No palpable masses. - EXTREMITIES: No edema. Peripheral puls es 2+. Non-tender. - NEUROLOGIC: No focal neurological defi cits. CN II-XII grossly intact. - PSYCHIATRIC: Awake, Alert and oriented x 3. Appropriate mood and affect. - SKIN: No rashes or lesions. Warm. - LYMPH: No cervical lymphadenopathy. Objective Data Vital Signs Vital Signs: Vital Signs - 24 hr 08/05/24 12:00 08/05/24 14:49 08/05/24 14:54 Temperature 97.3 F L Pulse Rate 60 59 L 60 Respiratory Rate 16 16 Blood Pressure 82/45 L Pulse Oximetry 100 08/05/24 15:00 08/05/24 16:00 08/05/24 20:00 Temperature Pulse Rate 60 62 64 Respiratory Rate 16 Blood Pressure Pulse Oximetry 08/05/24 21:13 08/05/24 21:13 08/05/24 21:13 Temperature Pulse Rate 60 60 60 Respiratory Rate 14 Blood Pressure Pulse Oximetry 08/05/24 21:18 08/05/24 22:54 08/06/24 00:00 Temperature 97.4 F L Pulse Rate 63 63 60 Respiratory Rate 14 18 Blood Pressure 100/45 L Pulse Oximetry 96 08/06/24 00:58 08/06/24 02:53 08/06/24 04:00 Temperature Pulse Rate 60 60 Respiratory Rate 14 Blood Pressure 100/50 L Pulse Oximetry 08/06/24 06:00 08/06/24 08:05 08/06/24 08:20 Temperature 97.6 F Pulse Rate 60 61 Respiratory Rate 16 Blood Pressure 126/49 L 122/53 L Pulse Oximetry 94 08/06/24 08:25 08/06/24 08:40 08/06/24 08:48 Temperature Pulse Rate 73 Respiratory Rate Blood Pressure 118/52 L 106/55 L Pulse Oximetry 08/06/24 08:49 Temperature Pulse Rate 73 Respiratory Rate Blood Pressure Pulse Oximetry Intake/Output Intake/Output: Intake & Output 08/03/24 08/04/24 08/05/24 08/06/24 23:59 23:59 23:59 23:59 Intake Total 1100 1480 2400 520 Output Total 1700 1700 2300 1600 Balance -600 -220 100 -1080 Meds/Results Medications: Active Medications Generic Name Dose Route Start Last Admin Trade Name Freq PRN Reason Stop Dose Admin Acetaminophen 650 mg 07/31/24 23:43 03/21/25 09:31 Acetaminophen 325 Mg Tablet PO 650 mg Q6H PRN Administration Mild Pain (1-3) or Fever Albuterol/Ipratropium 3 ml 08/01/24 02:00 08/06/24 09:31 Ipratropium 0.5 Mg/Albuterol Sulfate 2.5 Mg Ampul.Neb 3 Ml INHALATION Not Given Q6HRT MARTIN Benzonatate 100 mg 07/31/24 23:44 Benzonatate 100 Mg Capsule PO TID PRN Cough Buspirone HCl 20 mg 08/01/24 08:30 08/06/24 08:52 Buspirone Hcl 10 Mg Tablet PO 20 mg 0830,1330,1930 MARTIN Administration Carvedilol 12.5 mg 07/31/24 23:45 08/06/24 08:49 Carvedilol 12.5 Mg Tablet PO 12.5 mg Q12HR MARTIN Administration Cyclosporine 1 drop 08/01/24 09:00 08/06/24 08:43 Cyclosporine 0.4 Ml Ophth Solution EACH EYE 1 drop Q12HR MARTIN Administration Ferrous Sulfate 325 mg 08/01/24 09:00 08/06/24 08:43 Ferrous Sulfate [address] PO 325 mg BID MARTIN Administration Flecainide Acetate 150 mg 08/01/24 00:05 08/06/24 08:48 Flecainide Acetate 50 Mg Tablet PO 150 mg Q12HR MARTIN Administration Furosemide 40 mg 08/03/24 09:15 08/06/24 08:50 Furosemide Inj 40 Mg/4 Ml Vial IV PUSH 40 mg BID MARTIN Administration Guaifenesin 600 mg 08/01/24 09:00 08/06/24 08:43 Guaifenesin 12 Hr 600 Mg Tabcr PO 600 mg Q12HR MARTIN Administration Hydralazine HCl 50 mg 08/01/24 01:02 Hydralazine Hcl 25 Mg Tablet PO DAILY PRN Hypertension Losartan Potassium 25 mg 08/01/24 09:00 08/06/24 08:50 Losartan Potassium 25 Mg Tablet PO Not Given DAILY MARTIN Pantoprazole Sodium 40 mg 08/05/24 09:15 08/06/24 08:43 Pantoprazole 40 Mg Tablet PO 40 mg QAM MARTIN Administration Polyethylene Glycol 17 gm 08/02/24 10:11 08/04/24 09:32 Polyethylene Glycol 3350 17 Gm Powd.Pack PO 17 gm QAM PRN Administration Constipation Rivaroxaban 15 mg 08/01/24 18:00 08/05/24 17:13 Rivaroxaban 15 Mg Tablet PO 15 mg QPM MARTIN Administration Senna/Docusate Sodium 1 tab 08/01/24 21:00 08/05/24 21:14 Senna/Docusate Sodium Tablet PO 1 tab HS MARTIN Administration Tamsulosin HCl 0.4 mg 08/01/24 09:00 08/06/24 08:43 Tamsulosin Hcl 0.4 Mg Capsule PO 0.4 mg QAM MARTIN Administration Vitamin D 1,000 units 08/01/24 09:00 08/06/24 08:43 Cholecalciferol 1,000 Units Tablet PO 1,000 units DAILY MARTIN Administration Radiology Results: ITS Impressions Chest CTA 07/31/24 17:21 IMPRESSION: No pulmonary embolus. No thoracic aortic dissection. Redemonstration of advanced/severe pulmonary edema, as detailed above. Bilateral pleural effusions (right greater than left), decreased in size from previous examination. Abdomen Ultrasound 08/01/24 08:44 IMPRESSION: Possible small right pleural effusion. Otherwise, normal limited abdominal ultrasound. Chest X-Ray 08/05/24 09:39 IMPRESSION: Minimal opacification the right lung base which is slightly improved compared to previous study. Otherwise, unchanged. Modified Barium Swallow 08/05/24 11:35 IMPRESSION: 1. No laryngeal penetration or aspiration. 2. Please refer to the speech therapy report for recommendations. Labs Labs: Laboratory Results - last 24 hr 08/06/24 05:31 WBC 10.0 RBC 3.16 L Hgb 9.6 L Hct 30.9 L MCV 97.8 MCH 30.4 MCHC 31.1 L RDW 15.9 H Plt Count 367 MPV 8.3 Immature Gran % (Auto) 1.4 H Neut % (Auto) 60.2 Lymph % (Auto) 28.0 [place] % (Auto) 9.3 H Eos % (Auto) 0.8 Baso % (Auto) 0.3 Lymph # (Auto) 2.79 [place] # (Auto) 0.9 H Eos # (Auto) 0.1 Baso # (Auto) 0.0 Abs Immat Gran (auto) 0.14 H Absolute Neuts (auto) 6.0 Absolute Nucleated RBC 0.000 Nucleated RBC % 0.0 Sodium 136 L Potassium 3.5 Chloride 93 L Carbon Dioxide 38 H Anion Gap 5 BUN 20 H Creatinine 0.92 Estim Creat Clear Calc 38 Estimated GFR 58 L Glucose 94 Calcium 8.9 Total Bilirubin 0.4 AST 49 H ALT 190 H Alkaline Phosphatase 111 Total Protein 6.0 L Albumin 3.1 L
[2024-08-06] MEDS: RIVAROXABAN 15 MG TABLET PO (17:33)
[2024-08-06] MEDS: FUROSEMIDE 20 MG TABLET PO (17:33)
--- NOTE | 2024-08-06 18:54 | PC.NURSE ---
On 08/06/24, the student, Marce Otto, provided care and completed [facility] documentation on this patient. I have reviewed the student's documentation and agree with the findings.
[2024-08-06] MEDS: SENNA/DOCUSATE SODIUM TABLET 1 TAB PO (20:36)
[2024-08-07] VITALS (9 sets, daily range): BP systolic 110; BP diastolic 55–60; PULSE 60–87; RESP 18; TEMP 36–36.1; O2SAT 94–98
[2024-08-07 05:27] LABS: Basophils Percent Auto 0.3 % (0.2-1.2); Eosinophils Absolute Auto 0.1 K/mm3 (0-0.3); Eosinophils Percent Auto 0.8 % (0-4.4); Hematocrit 30.6 % (37.0-47.0); Hemoglobin 9.6 g/dL (12.0-15.0); Immature Granulocyte Absolute 0.12 K/mm3 (0.00-0.031); Immature Granulocyte Percent A 1.3 % (0-0.5); Lymphocytes Absolute Auto 2.81 K/mm3 (0.9-3.2); Lymphocytes Percent Auto 30.6 % (18.3-44.2); Mean Corpuscular HGB Conc 31.4 g/dl (32-36); Mean Corpuscular Hemoglobin 30.6 pg (26-34); Mean Corpuscular Volume 97.5 fl (80-100); Mean Platelet Volume 8.3 fl (7.4-10.4); Monocytes Absolute Auto 0.9 K/mm3 (0.1-0.6); Monocytes Percent Auto 10.2 % (2.6-8.5); Neutrophils Absolute Auto 5.2 K/mm3 (1.3-6.7); Neutrophils Percent Auto 56.8 % (45.5-73.1); Platelet Count Result 319 k/mm3 (150-375); Red Blood Count 3.14 M/mm3 (4.2-5.4); Red Cell Distribution Width 15.9 % (11.5-14.5); White Blood Count 9.2 K/mm3 (4.5-10.0)
[2024-08-07 05:39] LABS: Alanine Aminotransferase 143 U/L (6-35); Alkaline Phosphatase 105 U/L (38-126); Anion Gap 7 mmol/L (4-12); Aspartate Amino Transferase 41 U/L (14-36); Bilirubin,Total 0.4 mg/dL (0.2-1.3); Blood Urea Nitrogen 21 mg/dL (7-17); Calcium 8.8 mg/dL (8.4-10.2); Carbon Dioxide 36 mmol/L (22-30); Chloride 92 mmol/L (98-107); Estimated CRCL calculation 41 ml/min; Estimated Glomerular Filt Rate > 60; Glucose 99 mg/dL (65-110); Potassium 3.3 mmol/L (3.4-5.0); Sodium 135 mmol/L (137-145)
[2024-08-07] MEDS: cycloSPORINE 0.4 ML OPHTH SOLUTION 1 DROP EACH EYE (09:12)
[2024-08-07] MEDS: LOSARTAN POTASSIUM 25 MG TABLET PO (09:12)
[2024-08-07] MEDS: FLECAINIDE ACETATE 50 MG TABLET 150 MG PO (09:12)
[2024-08-07] MEDS: busPIRone HCL 10 MG TABLET 20 MG PO ×2 (09:12→12:40)
[2024-08-07] MEDS: FERROUS SULFATE 325 MG TABLET DR PO (09:13)
[2024-08-07] MEDS: guaiFENesin 12 HR 600 MG TABCR PO (09:13)
[2024-08-07] MEDS: carvediloL 12.5 MG TABLET PO (09:13)
[2024-08-07] MEDS: PANTOPRAZOLE 40 MG TABLET PO (09:13)
[2024-08-07] MEDS: TAMSULOSIN HCL 0.4 MG CAPSULE PO (09:13)
[2024-08-07] MEDS: CHOLECALCIFEROL 1,000 UNITS TABLET 1000 UNITS PO (09:13)
[2024-08-07] MEDS: FUROSEMIDE 20 MG TABLET PO (09:13)
[2024-08-07] MEDS: POTASSIUM CHLORIDE 20 MEQ ER TABLET 40 MEQ PO (11:10)
--- NOTE | 2024-08-07 13:31 | P.DS_ITS ---
DS: Admitting Diagnosis Discharge Date 08/07/24 Admitting Diagnosis Weakness and worsening shortness of breath. DS: Discharge Diagnosis Discharge Diagnosis (1) Hypokalemia: Code(s): E87.6 - Hypokalemia Status: Acute (2) Pneumonia: Qualifiers: Laterality: bilateral Lung location: unspecified part of lung Pneumonia type: due to unspecified organism Qualified Code(s): J18.9 - Pneumonia, unspecified organism Code(s): J18.9 - Pneumonia, unspecified organism Status: Acute (3) Diastolic dysfunction: Code(s): I51.89 - Other ill-defined heart diseases Status: Acute (4) Weakness: Code(s): R53.1 - Weakness Status: Acute (5) TRISTIN (acute kidney injury): Code(s): N17.9 - Acute kidney failure, unspecified Status: Resolved (6) Liver enzyme elevation: Code(s): R74.8 - Abnormal levels of other serum enzymes Status: Acute (7) Hypertension: Qualifiers: Hypertension type: unspecified Qualified Code(s): I10 - Essential (primary) hypertension Code(s): I10 - Essential (primary) hypertension Status: Chronic (8) Leukocytosis: Code(s): D72.829 - Elevated white blood cell count, unspecified Status: Resolved (9) Constipation: Qualifiers: Constipation type: unspecified constipation type Qualified Code(s): K59.00 - Constipation, unspecified Code(s): K59.00 - Constipation, unspecified Status: Acute (10) Hypoxemia: Code(s): R09.02 - Hypoxemia Status: Acute DS: Summary Hospital Course Hospital Course: Initial VS at presentation: 98? F, HR 74, R 25, 60% on room air, 124/60. Now 100% on 4L NC. ED workup showed: WBC 17.6, hemoglobin 8.8 (8.7 day prior), INR 3.3, creatinine 1.17 and GFR 44, AST 2702, ALT 1210, UA showed a high specific gravity/1+ protein/trace ketones/2+ blood/6-10 WBC/no bacteria and few epithelial cells, viral PCR negative, MRSA negative. CXR showed bibasilar pneumonia and underlying fibrotic changes. Chest CTA showed no PE, no thoracic aortic dissection, redemonstration of advanced/severe pulmonary edema, bilateral pleural effusions (right greater than left) decrease in size from previous examination. Chest CTA 07/31/24 17:21 IMPRESSION: No pulmonary embolus. No thoracic aortic dissection. Redemonstration of advanced/severe pulmonary edema, as detailed above. Bilateral pleural effusions (right greater than left), decreased in size from previous examination. Abdomen Ultrasound 08/01/24 08:44 IMPRESSION: Possible small right pleural effusion. Otherwise, normal limited abdominal ultrasound. Chest X-Ray 08/05/24 09:39 IMPRESSION: Minimal opacification the right lung base which is slightly improved compared to previous study. Otherwise, unchanged. Modified Barium Swallow 08/05/24 11:35 IMPRESSION: 1. No laryngeal penetration or aspiration. 2. Please refer to the speech therapy report for recommendations. 07/31 BNP 6460. Patient transitioned from IV Lasix to oral Lasix. Patient weaned off of oxygen with Sa02 98% RA. Blood cultures and urine cultures negative. Liver enzymes improved. Patient to return to independent living and have PT/OT at facility. Home 02 evaluation showed no home 02 needed at this time. Status at Discharge Functional status at discharge: uses cane/walker Overall status at discharge: patient is progressing back to baseline Time Spent with Patient Time attestation: Total time spent providing and/or coordinating discharge services: Time spent: Greater than 30 minutes Exam Const: General: comfortable and no acute distress Resp: Effort & Inspection: normal respiratory effort Auscultation: diminished lung sounds Cardio: Rate: regular rate Rhythm: regular rhythm GI: GI Palp: Yes Soft to palpation Auscultation: normal bowel sounds Skin: General skin exam: no rashes or lesions noted Extrem: General: no pedal edema Psych: Mental Status: mental status grossly normal Affect: normal affect DS: Data Data Completed and Pending Labs on day of discharge: Labs from last 24 hours 08/07/24 05:16 WBC 9.2 RBC 3.14 L Hgb 9.6 L Hct 30.6 L MCV 97.5 MCH 30.6 MCHC 31.4 L RDW 15.9 H Plt Count 319 MPV 8.3 Immature Gran % (Auto) 1.3 H Neut % (Auto) 56.8 Lymph % (Auto) 30.6 [place] % (Auto) 10.2 H Eos % (Auto) 0.8 Baso % (Auto) 0.3 Lymph # (Auto) 2.81 [place] # (Auto) 0.9 H Eos # (Auto) 0.1 Baso # (Auto) 0.0 Abs Immat Gran (auto) 0.12 H Absolute Neuts (auto) 5.2 Absolute Nucleated RBC 0.000 Nucleated RBC % 0.0 Sodium 135 L Potassium 3.3 L Chloride 92 L Carbon Dioxide 36 H Anion Gap 7 BUN 21 H Creatinine 0.85 Estim Creat Clear Calc 41 Estimated GFR > 60 Glucose 99 Calcium 8.8 Total Bilirubin 0.4 AST 41 H ALT 143 H Alkaline Phosphatase 105 Total Protein 6.0 L Albumin 3.0 L Discharge Plan Discharge Attending physician on discharge: Joe Zelaya Consulting providers: Con Wilson; Luzmaria Pool; Ben Gustafson Discharging Clinician: Katherin Sanders Anticipated Discharge Date/Time: 08/07/24 15:00 Patient Disposition: Home, Self-Care Activity: september shower Diet: heart healthy Discharge Instructions: * Per Care Coordination. Patient to have OP PT/OT eval and treat back at [facility]. * Use incentive spirometer 4 times daily for 6 inhalations. * Report any increased shortness of breath, sputum with color, or fever to provider. * Go to lab on Monday to have a BMP checked. Thank you for entrusting [facility] with your healthcare! Patient Instructions: Antibiotic Form, Rivaroxaban (By mouth), How to Use an Incentive Spirometer (DC), Hypokalemia (DC), Pneumonia (DC) Patient Language: Armenian Stand Alone Forms: General Discharge Information Follow-up/Referrals: Kristen Graf [Other] - 1 Week Con Wilson MD [Physician] - 3 Weeks Discharge Medications: New pantoprazole 40 mg Tablet,Delayed Release (Dr/Ec) 40 mg PO QAM Qty: 30 0RF furosemide 20 mg Tablet 20 mg PO BID Qty: 14 0RF potassium chloride 10 mEq capsule, extended release 10 meq PO DAILY Qty: 7 0RF Continued cholecalciferol (vitamin D3) 25 mcg (1,000 unit) capsule 1,000 unit PO DAILY carvedilol [Coreg] 25 mg tablet 12.5 mg PO Q12H Rx Instructions: must administer with a meal/food flecainide 150 mg tablet 150 mg PO Q12H losartan 25 mg tablet 25 mg PO DAILY Restasis MultiDose 0.05 % drops 1 drp EACH EYE Q12H famotidine 20 mg Tablet 20 mg PO Q12HR Qty: 60 0RF Xarelto 15 mg tablet 15 mg PO QPM buspirone 10 mg tablet 20 mg PO 0830,1330,1930 hydralazine 50 mg tablet 50 mg PO DAILY PRN (Reason: Hypertension) tamsulosin 0.4 mg Capsule 0.4 mg PO QAM 30 Days Qty: 30 0RF Patient Comments: x30 day supply last filled on 07/08/24 benzonatate 100 mg Capsule 100 mg PO TID PRN (Reason: Cough) Qty: 15 0RF ferrous sulfate 325 mg (65 mg iron) Tablet,Delayed Release (Dr/Ec) 325 mg PO BID Qty: 60 0RF guaifenesin [Mucus Relief ER] 600 mg Tablet Extended Release 12hr 600 mg PO Q12HR Qty: 14 0RF Rx Instructions: OTC sennosides-docusate sodium [Senna with Docusate Sodium] 8.6-50 mg tablet 1 tab-cap PO HS Qty: 30 0RF Discontinued furosemide [Lasix] 20 mg tablet 20 mg PO DAILY 30 Days Qty: 30 0RF levofloxacin 750 mg tablet 750 mg PO DAILY Qty: 4 0RF Other Ambulatory Orders: Basic Metabolic Panel (Routine) Timeframe: [id number] Location: Determined by Patient Ordered By: Katherin Sanders Date of admission: 08/01/24 11:10 Primary Care Provider: UNKNOWN,DOCTOR Admitting Provider: Chase Shin Attending physician on admission: Tori Navarro Condition: Improved Hospitalist MIPS Heart Failure (Exclusion) Patient has history of Heart Transplant or Left Ventricular Assistive Device?: No IF YES, STOP HERE Heart Failure (Qualifier) Patient has current or prior documentation of LVEF less than or equal to 40%, or mod/servere depressed LVSF?: No IF NO, STOP HERE
== END 2024-08-07 16:24 | disposition home or self-care (01) | DRG 193 ==
LOC: ANHED 18:29 → ANH3MED 18:47
PROVIDERS: Internal Medicine Pulmonary Disease; Nurse Practitioner Adult Health; Nurse Practitioner Gerontology; Student in an Organized Health Care Education/Training Program; Admitting Provider Hospitalist; Emergency Provider Emergency Medicine; Visit Provider Nurse Practitioner Family
DX: J18.9 Pneumonia, unspecified organism (principal); J96.01 Acute respiratory failure with hypoxia; J44.0 Chronic obstructive pulmonary disease with (acute) lower respiratory infection; J81.1 Chronic pulmonary edema; I48.20 Chronic atrial fibrillation, unspecified; N17.9 Acute kidney failure, unspecified; D72.829 Elevated white blood cell count, unspecified; E87.6 Hypokalemia; E78.5 Hyperlipidemia, unspecified; F41.9 Anxiety disorder, unspecified; I11.0 Hypertensive heart disease with heart failure; I50.9 Heart failure, unspecified; I48.0 Paroxysmal atrial fibrillation; K59.00 Constipation, unspecified; R74.01 Elevation of levels of liver transaminase levels; Z79.01 Long term (current) use of anticoagulants; Z20.822 Contact with and (suspected) exposure to COVID-19; Z86.73 Personal history of transient ischemic attack (TIA), and cerebral infarction without residual deficits; Z95.0 Presence of cardiac pacemaker; Z90.49 Acquired absence of other specified parts of digestive tract; Z86.16 Personal history of COVID-19
CPT/HCPCS: 36415; 71045; 71275; 76705; 80053; 80074; 80076; 81001; 82550; 82565; 83690; 83735; 83880; 85025; 85610; 85730; 86140; 86631; 86632; 87040; 87086; 87637; 87641; 92611; 93005; 93306; 94618; 94640; 96365; 96366; 96375; 97110; 97116; 97161; 97165; 97530; 97535; 99285; A9270; G0378; J0456; J0692; J1940; J3370; J7030; Q9967

== ENCOUNTER 2024-08-08 10:52 | Inpatient (IN) | payer MEDICARE, OTHER, SELFPAY ==
[2024-08-08] VITALS (21 sets, daily range): BP systolic 85–147; BP diastolic 45–82; PULSE 60–92; RESP 12–37; TEMP 36.4; O2SAT 90–100; BMI 26.3
--- NOTE | ~2024-08-08 | CT_ITS ---
CTA brain carotid Ordering provider: Meera Guzman APRN History: . Syncope . Comparison: August 08, 2024 Technique: CT angiogram head was performed following timed intravenous injection of contrast. Thin sl ice axial images and reformatted coronal images were obtained. Three dimensional reformatted images o f the brain were also obtained using a [employer] workstation. Radiation reduction technique utilized. T he dose-length product was 1232.49 mGy-cm. 100 mL Omnipaque 350 was given IV. FINDINGS: Small caliber of the left transverse and sigmoid sinus. --ANTERIOR AND MIDDLE CEREBRAL ARTERIES AND BRANCHES: Normal caliber and contour. --INTERNAL CAROTID ARTERIES: Mild atheromatous disease but no significant stenosis. No occlusion. --BASILAR ARTERY AND BRANCHES: Normal caliber and contour. No atheromatous disease. --POSTERIOR CEREBRAL ARTERIES: Normal caliber and contour --POSTERIOR COMMUNICATING ARTERIES: The left is demonstrated and continues as the posterior cerebral artery. The right is not visualized which is probably related to congenital absence or small size. --ANEURYSM: None visualized. --BRAIN: Please refer to report of CT head performed the same day. --BONES AND SUPERFICIAL SOFT TISSUES: Please refer to report of CT head performed the same day. --PARANASAL SINUSES AND MASTOIDS: Please refer to report of CT head done the same day. Soft tissue density in the left orbit medially measuring 1.3 x 1 cm. IMPRESSION: No definite abnormality seen. Soft tissue density mass measuring 1 x 1.3 cm in the left orbit superiorly. Further evaluation advise d. CTA brain carotid Ordering provider: Meera Guzman APRN History: . Syncope . Comparison: None. Technique: CT angiogram neck was performed following timed intravenous injection of contrast. Thin sl ice axial images and reformatted coronal images were obtained. Three dimensional reformatted images o f the neck were also obtained using a [employer] workstation. Automated exposure control and iterative re construction technique were employed. The dose-length product was 1232.49 mGy-cm. FINDINGS: RIGHT CERVICAL CAROTID ARTERY: Multiple areas of narrowing suggestive of fibromuscular dysplasia (FMD ). LEFT CERVICAL CAROTID ARTERY: FMD is noted. VISUALIZED BILATERAL INTRACRANIAL CAROTID ARTERIES: Mild atheromatous disease. VERTEBRAL BASILAR SYSTEM: Normal caliber and contour VISUALIZED AORTIC ARCH AND BRANCHING VESSELS: Normal caliber and contour. No significant atheromatous disease. SOFT TISSUES: Large right thyroid cystic mass. Ultrasound evaluation advised. precarinal enlarged ly mph node is seen measuring 1.6 cm. Right pleural effusion fibrotic changes seen in the apical areas. Bilateral lung groundglass appearance suggestive of infection versus atelectasis versus edema. CERVICAL SPINE: Age appropriate degenerative changes. IMPRESSION: FMD is seen in both internal carotid arteries. Right thyroid large cystic nodule. Ultrasound evaluation advised. Enlarged precarinal lymph node. Right pleural effusion. Bilateral lung groundglass appearance is seen which may indicate atelectasis versus pneumonia. Clinic al correlation advised. Reviewed, dictated and finalized at location A. IMPRESSION: No definite abnormality seen. Soft tissue density mass measuring 1 x 1.3 cm in the left orbit superiorly. Fur ther evaluation advised. CTA brain carotid Ordering provider: Meera Guzman APRN History: . Syncope . Comparison: None. Technique: CT angiogram neck was performed following timed intravenous injectio n of contrast. Thin slice axial images and reformatted coronal images were obta ined. Three dimensional reformatted images of the neck were also obtained using a [employer] workstation. Automated exposure control and iterative reconstruction technique were employed. The dose-length product was 1232.49 mGy-cm. FINDINGS: RIGHT CERVICAL CAROTID ARTERY: Multiple areas of narrowing suggestive of fibrom uscular dysplasia (FMD). LEFT CERVICAL CAROTID ARTERY: FMD is noted. VISUALIZED BILATERAL INTRACRANIAL CAROTID ARTERIES: Mild atheromatous disease. VERTEBRAL BASILAR SYSTEM: Normal caliber and contour VISUALIZED AORTIC ARCH AND BRANCHING VESSELS: Normal caliber and contour. No si gnificant atheromatous disease. SOFT TISSUES: Large right thyroid cystic mass. Ultrasound evaluation advised. precarinal enlarged lymph node is seen measuring 1.6 cm. Right pleural effusion fibrotic changes seen in the apical areas. Bilateral lung groundglass appearan ce suggestive of infection versus atelectasis versus edema. CERVICAL SPINE: Age appropriate degenerative changes. IMPRESSION: FMD is seen in both internal carotid arteries. Right thyroid large cystic nodule. Ultrasound evaluation advised. Enlarged precarinal lymph node. Right pleural effusion. Bilateral lung groundglass appearance is seen which may indicate atelectasis ve rsus pneumonia. Clinical correlation advised.
--- NOTE | ~2024-08-08 | XR_ITS ---
EXAMINATION: XR chest 2V DATE: 08/08/2024 12:08 INDICATION: Syncope. TECHNIQUE: Frontal and lateral views of the chest were obtained. COMPARISON: Chest 2 view 08/05/2024, chest CT 07/31/2024 FINDINGS: There is scarring at the lung apices. There is a diffuse interstitial pattern in the lungs. There are mild airspace opacities in right lower lung zone. There is a small right pleural effusion. No pneumothorax. The heart size is normal. There is a right chest wall pacer with leads in the right atrium and right ventricle. IMPRESSION: 1. Stable diffuse lung disease, consistent with mild pulmonary edema and/or chronic lung disease. 2. Stable small right pleural effusion. Reviewed, dictated and finalized at location A. IMPRESSION: 1. Stable diffuse lung disease, consistent with mild pulmonary edema and/or chr onic lung disease. 2. Stable small right pleural effusion.
--- NOTE | ~2024-08-08 | CT_ITS ---
EXAMINATION: CT brain wo con DATE: 08/08/2024 11:57 INDICATION: Syncope TECHNIQUE: Computed tomography (CT) of the head was performed without intravenous contrast. Sagittal and coronal reconstructions were performed. The mA was adjusted according to patient size. Iterative reconstruction technique was employed. The dose-length product was 605.33 mGy-cm. COMPARISON: head CT dated 07/30/23 FINDINGS: No acute intracranial hemorrhage, acute infarction or abnormal extra axial fluid collection. Unchange d small old lacunar infarct at the left lentiform nucleus. Symmetric prominence of the sulci consiste nt with mild age-appropriate diffuse cerebral volume loss. Ventricles are normal and symmetric. No m ass/mass effect. Changes of bilateral intraocular lens replacement. The orbits and mastoid air cells are normal. Minimal dependently layering fluid/mucus in the right sphenoid sinus. IMPRESSION: 1. Small lacunar infarct at the left lentiform nucleus. No acute intracranial process. Reviewed, dictated and finalized at location B. IMPRESSION: 1. Small lacunar infarct at the left lentiform nucleus. No acute intracranial p rocess.
--- NOTE | 2024-08-08 11:06 | ECG_ITS ---
Test Date: 2024-08-08 11:14:31 Measurements Intervals [place] Rate: 61 P: -85 GA: 303 QRS: -77 QRSD: 148 T: 76 QT: 485 QTc: 492 Interpretive Statements ELECTRONIC ATRIAL PACEMAKER LEFT AXIS DEVIATION [QRS AXIS < -30] RIGHT BUNDLE BRANCH BLOCK [120+ ms QRS DURATION, UPRIGHT V1, 40+ ms S IN I/aVL/V4/V5/V6] SEPTAL MYOCARDIAL INFARCTION , OF INDETERMINATE AGE [40+ ms Q WAVE IN V1/V2] Compared to ECG 07/31/2024 16:10:55 Left-axis deviation now present Right bundle-branch block now present Sinus rhythm no longer present Myocardial infarct finding still present Electronically Signed On 08-08-2024 11:51:22 CDT by Niraj Forrester M.D.
[2024-08-08] MEDS: SODIUM CHLORIDE 0.9% IV 1,000 ML 999 ML (11:35)
[2024-08-08 11:36] LABS: Basophils Percent Auto 0.2 % (0.2-1.2); Eosinophils Percent Auto 0.2 % (0-4.4); Hematocrit 33.2 % (37.0-47.0); Hemoglobin 10.5 g/dL (12.0-15.0); Immature Granulocyte Absolute 0.12 K/mm3 (0.00-0.031); Immature Granulocyte Percent A 0.7 % (0-0.5); Lymphocytes Absolute Auto 1.06 K/mm3 (0.9-3.2); Lymphocytes Percent Auto 6.5 % (18.3-44.2); Mean Corpuscular HGB Conc 31.6 g/dl (32-36); Mean Corpuscular Hemoglobin 31.1 pg (26-34); Mean Corpuscular Volume 98.2 fl (80-100); Mean Platelet Volume 8.7 fl (7.4-10.4); Monocytes Absolute Auto 1.2 K/mm3 (0.1-0.6); Monocytes Percent Auto 7.3 % (2.6-8.5); Neutrophils Absolute Auto 13.8 K/mm3 (1.3-6.7); Neutrophils Percent Auto 85.1 % (45.5-73.1); Platelet Count Result 309 k/mm3 (150-375); Red Blood Count 3.38 M/mm3 (4.2-5.4); Red Cell Distribution Width 15.9 % (11.5-14.5); White Blood Count 16.2 K/mm3 (4.5-10.0)
[2024-08-08 11:57] LABS: INR 2.3; Partial Thromboplastin Time 38.8 Seconds (22.3-36.8); Prothrombin Time 26.2 Seconds (11.1-14.7)
[2024-08-08 12:31] LABS: Influenza A QL RT-PCR Negative (Negative); Influenza B QL RT-PCR Negative (Negative); RSV RNA, RT-PCR Negative (Negative); SARS-CoV-2 RNA PCR Negative (Negative)
--- OUTSIDE RECORDS SUMMARY | 2024-08-08 13:04 | XMS_ITS | Clinical Summary ---
Author Organization [facility] [employer] Address [address] [place] [address] Care Team Providers Care Slot Floor Supervisor Name Role Phone Kristen Graf [facility] Primary Care Provider Source Comments [facility] [employer],non-owned Affiliates and Associated Physician Practices is amultiple site organization consisting of ambulatory clinics and hospital sitesin [place], [place], [place] and [place]. This disclosure is being madepursuant to the Care Everywhere program and may not contain all information available regarding this patient. Last updated 18.[facility] [employer] Allergies No known active allergies Medications * [...] Active ipratropium (Atrovent) 0.03 % nasal spray [place] 2 sprays into each nostril 2 times [...] migh t be different from the original. Shovel Operator - Dr Asaf Ramirez Problem Noted [...] [facility] [address] [facility], [address] [place] [address] Mani Green RN Nausea 07/22/2024 Orders Only [facility] - Geriatrics [address] [facility], [place] [address] Kristen Graf, JAYME-PURNIMA Leukocytosis, unspecified type ; Hyponatremia 07/19/2024 9:38 AM CERTIFIED NOVELL ENGINEER - 07/19/2024 11:59 PM CERTIFIED NOVELL ENGINEER Hospital Encounter [facility] OP DRAW STATION [address] [place] [address] Kristen Graf, JEFF Discharge Disposition: Home or Self Care 07/19/2024 9:30 AM CERTIFIED NOVELL ENGINEER Office Visit [facility] - Pulmonology [address] [place] [address] Jack Milian MD Abnormal CT lung screening (Primary Dx); Immunization counseling 07/19/2024 Travel 07/10/2024 Orders Only [facility] - Geriatrics [address] [place] [address] Kristen Graf, JEFF COVID-19 ; Pneumonia due to COVID-19 virus 07/10/2024 Telephone [facility] - Cardiology [address] [place] [phone] Mani Green, RN Question 07/05/2024 Telephone [facility] - Internal Med [facility] [place] [address] Kristen Graf, JEFF General (Hospitalized) 06/27/2024 Refill [facility] - Cardiology [address] [place] [phone] Mani Green, HL7 INTERFACE DEVELOPER REFILL 05/21/2024 1:10 AM CERTIFIED NOVELL ENGINEER Clinical Support [facility] - Cardiology [address] [place] [phone] SSS (sick sinus syndrome) from Last 3 [...] Comments Blood Pressure 96/61 07/19/2024 9:02 AM CERTIFIED NOVELL ENGINEER Pulse 80 07/19/2024 9:02 AM CERTIFIED NOVELL ENGINEER Temperature 36.7 C (98.1 F) 03/28/2024 1:41 PM CERTIFIED NOVELL ENGINEER Respiratory Rate 17 07/19/2024 9:02 AM CERTIFIED NOVELL ENGINEER Oxygen Saturation 92% 07/19/2024 9:02 AM CERTIFIED NOVELL ENGINEER Inhaled Oxygen Concentration - - Weight 70.7 kg (155 lb 12.8 oz) 07/19/2024 9:02 AM CERTIFIED NOVELL ENGINEER Height 167.6 cm (5' 6 ) 07/19/2024 9:02 AM CERTIFIED NOVELL ENGINEER Body Mass Index 25.15 07/19/2024 9:02 AM CERTIFIED NOVELL ENGINEER Plan of Treatment Upcoming Encounters Date Type Department Care Team (Late st Contact Info) Description 08/20/2024 1:10 AM CDT Clinical Support [facility] [address] [facility], [address] [address] 10/10/2024 10:20 AM CDT Office Visit [facility] - Cardiology [address] [facility], [address] [address] Bharathi Higuera MD [address] [facility], [address] [address] 11/19/2024 1:10 AM CDT Clinical Support [facility] - Cardiology [address] [facility], [address] [address] 01/24/2025 10:30 AM CDT Office Visit [facility] - Pulmonology [address] [facility], [place] [address] Jack Milian MD [address] [place] [address] 2[address] DIV OF PULM/[place] [address] Health Maintenance Due Date Last Done Comments [...] last dose Medical Devices Implanted Type Area Admissions Manager Rn Device Identifier Shelf Expiration Date Model / Serial / Lot Lead Cp Nv Pace 52cm Strd Elut Pltn Amada - [id number] Implanted:Qty: 1 on 08/16/2021 by Bharathi Higuera MD at [facility] Right: Ventricle [employer] 04/13/2023 5076-52 / [id number] / Description:RV Lead Lead Cp Nv Pace 45cm Strd Elut Pltn Amada - [id number] Implanted:Qty: 1 on 08/16/2021 by Bharathi Higuera MD at [facility] Right: Atrium [employer] 05/06/2023 5076-45 / [id number] / Description:RA lead Pacemkr Rosette Wirelessly Crd - [id number] Implanted:Qty: 1 on 08/16/2021 by Bharathi Higuera MD at [facility] Right: Chest [employer] 01/09/2023 [id number] / [id number] / Description:ICD Procedures Procedure Name Priority Date/Time Associated Diagnosis Comments DIFFERENTIAL MANUAL Routine 07/19/2024 9 :46 AM CERTIFIED NOVELL ENGINEER COVID-19 Pneumonia due to COVID-19 virus CBC W AUTO DIFFERENTIAL Routine 07/19/2024 9:46 AM CERTIFIED NOVELL ENGINEER COVID-19 Pneumonia due to COVID-19 virus BASIC METABOLIC PANEL (CALCIUM TOTAL) Routine 07/19/2024 9:46 AM CERTIFIED NOVELL ENGINEER COVID-19 Pneumonia due to COVID-19 virus NM PM/ICD REMOTE TECH SERV Routine 05/26/2024 4:54 PM CERTIFIED NOVELL ENGINEER SSS (sick sinus syndrome) NM PM DEVICE INTERROGATE REMOTE Routine 05/26/2024 4:54 PM CERTIFIED NOVELL ENGINEER SSS (sick sinus syndrome) CARDIAC PROCEDURE ORDER 05/20/2024 DEXA BONE DENSITY AXIAL SKELETON Routine 06/17/2022 1:22 PM CERTIFIED NOVELL ENGINEER Primary osteoarthritis involving multiple joints Osteoporosis, unspecified osteoporosis type, unspecified pathological fracture presence from Last 3 Months or Most Recently Relevant to Health Maintenance Results * (ABNORMAL) DIFFERENTIAL MANUAL (07/19/2024 9:46 AM CERTIFIED NOVELL ENGINEER) Neutrophil % 81(H) 41 - 74 % 07/19/2024 10:57 AM [facility] Lymphocyte % 10(L) 17 - 47 % 07/19/2024 10:57 AM [facility] Monocyte % 7 3 - 11 % 07/19/2024 10:57 AM [facility] Eosinophil % 2 0 - 7 % 07/19/2024 10:57 AM [facility] Neutrophil Absolute 11.50(H) 1.60 - 7.50 x10E9/L 07/19/2024 10:57 AM [facility] Lymphocyte Absolute 1.42 1.00 - 4.40 x10E9/L 07/19/2024 10:57 AM [facility] Monocyte Absolute 0.99 0.15 - 1.00 x10E9/L 07/19/2024 10:57 AM [facility] Eosinophil Absolute 0.28 0.00 - 0.60 x10E9/L 07/19/2024 10:57 AM [facility] RBC Morphology NORMAL 07/19/2024 10:57 AM [facility] Blood BLOOD SPECIMEN / Unknown Lab Venipuncture / Unknown 07/19/2024 9:46 AM CERTIFIED NOVELL ENGINEER 07/19/2024 10:17 AM CERTIFIED NOVELL ENGINEER Kristen KAURCUSTOMER ASSISTANT LAB - HEMATOLOG Y ORDERABLES Performing Organization Address [facility] Co de Phone Number [facility] [address] [place] [address], [facility] [phone] * (ABNORMAL) CBC W/ DIFFERENTIAL (07/19/2024 9:46 AM CERTIFIED NOVELL ENGINEER) WBC 14.2(H) 4.0 - 10.7 x10E9/L 07/19/2024 10:57 AM [facility] RBC Count 3.48(L) 3.90 - 5.20 x10E12/L 07/19/2024 10:57 AM [facility] Hemoglobin 10.8(L) 11.9 - 15.8 g/dL 07/19/2024 10:57 AM [facility] Hematocrit 32.9(L) 34.8 - 46.1 % 07/19/2024 10:57 AM [facility] MCV 94.5 80.0 - 98.0 fL 07/19/2024 10:57 AM [facility] MCH 31.0 26.7 - 33.6 pg 07/19/2024 10:57 AM [facility] MCHC 32.8 31.7 - 36.3 g/dL 07/19/2024 10:57 AM [facility] RDW-CV 15.9(H) 11.3 - 14.8 % 07/19/2024 10:57 AM [facility] Platelet Count 171 150 - 420 x10E9/L 07/19/2024 10:57 AM [facility] MPV 9.2 7.8 - 11.4 fL 07/19/2024 10:57 AM [facility] Blood BLOOD SPECIMEN / Unknown Lab Venipuncture / Unknown 07/19/2024 9:46 AM CERTIFIED NOVELL ENGINEER 07/19/2024 10:17 AM CERTIFIED NOVELL ENGINEER Kristen Graf [facility] - HEMATOLOG Y ORDERABLES [facility] [address] [place] [address], [facility] [phone] * (ABNORMAL) BASIC METABOLIC PANEL (CALCIUM TOTAL) (07/19/2024 9:46 AM [facility]) BUN 23 7 - 26 mg/dL 07/19/2024 10:53 AM [facility] Creatinine 0.89 0.56 - 0.96 mg/dL 07/19/2024 10:53 AM [facility] Sodium 140 136 - 145 mmol/L 07/19/2024 10:53 AM [facility] Potassium 3.4(L) 3.5 - 4.5 mmol/L 07/19/2024 10:53 AM [facility] Chloride 105 98 - 107 mmol/L 07/19/2024 10:53 AM [facility] CO2 27 22 - 29 mmol/L 07/19/2024 10:53 AM [facility] Glucose 149(H) 70 - 99 mg/dL 07/19/2024 10:53 AM [facility] Calcium 8.4 8.4 - 10.2 mg/dL 07/19/2024 10:53 AM [facility] Anion Gap 8 6 - 16 07/19/2024 10:53 AM [facility] BUN/Creatinine Ratio 26(H) 7 - 23 07/19/2024 10:53 AM [facility] Osmolality Calculated 296(H) 275 - 295 mOsm/kg 07/19/2024 10:53 AM [facility] eGFR by CKD-EPI 64(L) >=90 mL/min/1.7 3 m2 07/19/2024 10:53 AM [facility] Blood BLOOD SPECIMEN / Unknown Lab Venipuncture / Unknown 07/19/2024 9:46 AM CERTIFIED NOVELL ENGINEER 07/19/2024 10:17 AM [facility] Kristen Graf EMERGENCY RESPONSE COORDINATOR-CUSTOMER ASSISTANT LAB - CHEMISTRY ORDERABLES [facility] [address] [place] [address], [facility] [phone] * NM PM DEVICE INTERROGATE REMOTE, NM PM/ICD REMOTE TECH SERV (05/26/2024 4:54 PM CERTIFIED NOVELL ENGINEER) Narrative Nanette Aldridge MD - 05/26/2024 4:54 PM CERTIFIED NOVELL ENGINEER Nanette Aldridge MD 05/26/2024 4:57 PM Remote Interrogation: 05/20/2024 Pertinent Findings: Device function within normal limits. No events or therapy delivered. See below for details. Nanette Aldridge MD Cardiac Electrophysiology Nanette Aldridge MD PROCEDURE/MINOR SURG ICAL ORDERABLES * CARDIAC PROCEDURE ORDER (05/20/2024) Narrative 05/20/2024 Ordered by an unspecified provider. Scanned Document CARDIAC SERVICES ORD ERABLES * BONE DENSITY AXIAL SKELETON(1OR MORE SITES)[id number] (06/17/2022 1:22 PM CERTIFIED NOVELL ENGINEER) Anatomical Region Laterality Modality Other 06/20/2022 5:28 PM CERTIFIED NOVELL ENGINEER Narrative 06/20/2022 5:29 PM CERTIFIED NOVELL ENGINEER PROCEDURE: DEXA BONE DENSITY AXIAL SKELETON, DATE/TIME OF EXAM: 06/17/2022 1:23 PM, LOCATION [facility] INDICATION: M15.9: Primary osteoarthritis involving multiple [...] SKELETON, DATE/TIME OF EXAM:06/17/2022 1:23 PM, LOCATION [facility] INDICATION: M15.9: Primary osteoarthritis involving multiple [...] DO on 06/20/2022 5:29 PM Kristen Graf EMERGENCY RESPONSE COORDINATOR-CUSTOMER ASSISTANT DEXA ORDERABLES from Last 3 Months or Most Recently Relevant to Health Maintenance Advance Directives * Full Code (Latest Code Status on File) Date Activated Date Inactivated Comments 07/03/2021 6:20 PM 07/04/2021 5:26 PM Care Teams Slot Floor Supervisor Relationship Specialty Start Date End Date Kristen Graf, EMERGENCY RESPONSE COORDINATOR-CUSTOMER ASSISTANT [address] [phone] PCP - General 05/24/21
--- OUTSIDE RECORDS SUMMARY | 2024-08-08 13:04 | XMS_ITS | Encounter Summary ---
Author Organization [facility] Health Address [address] [facility] [place] [address] Care Team Providers Care Slitter Processed Film Name Role Phone Minh Thornton MD Primary Care Provider [phone] Kristen [facility] Primary Care Provider Tracie Pritchett MD Primary Care Provider [phone] Kristen Graf APRN-PERSONNEL ASSOCIATE Primary Care Provider Encounter Details Date Type Department Care Team (Late st Contact Info) Description 03/10/2020 Telephone [facility] [address] [place] [address] Kristen Graf RESERVOIR CARETAKER-PERSONNEL ASSOCIATE [address] [phone] Social History Tobacco Use Types Packs/Day Years [...] at your convenience. Patient Call Back number: [phone] documented in this encounter Plan of Treatment Upcoming Encounters Date Type Department Care Team (Late st Contact Info) Description 08/20/2024 1:10 AM CDT Clinical Support [facility] - [facility] [address] [address] 10/10/2024 10:20 AM CDT Office Visit [facility] - Cardiology [address] [phone] Bharathi Higuera MD [address] [address] 11/19/2024 1:10 AM CDT Clinical Support [facility] - Cardiology [address] [address] 01/24/2025 10:30 AM CDT Office Visit [facility] - Pulmonology [address] [place] [address], [place] [address] Jack Milian MD [address] [place] [address] 2[address] DIV OF PULM/[place] [address] documented as of this encounter Visit Diagnoses Not on filedocumented in this encounter Care Teams Slitter Processed Film Relationship Specialty Start Date End Date Minh Thornton MD [address] [place] [address] [address] [place] [address] PCP - General 03/02/20 04/26/20 Kristen Graf, RESERVOIR CARETAKER-PERSONNEL ASSOCIATE [address] [place] [address] PCP - General 04/27/20 05/19/21 Tracie Pritchett MD [address] [address] PCP - General Internal Medicine Geriatric Medicine 05/20/21 05/23/21 Kristen Graf, RESERVOIR CARETAKER-PERSONNEL ASSOCIATE [address] [address] PCP - General 05/24/21 documented as of this encounter
--- OUTSIDE RECORDS SUMMARY | 2024-08-08 13:05 | XMS_ITS | Encounter Summary ---
Author Organization [facility] Address [address] [facility] [place] [address] Care Team Providers Care Juvenile Detention Officer Name Role Phone Kristen Graf APRNPURNIMA Primary Care Provider Tracie Pritchett MD Primary Care Provider [phone] Kirsten Graf APRNSTATE REFORM SCHOOL FOR BOYS Primary Care Provider Encounter Details Date Type Department Care Team (Late st Contact Info) Description 10/30/2020 Telephone [facility] [address] [place] [address] Ubaldo Salgado MD [address] [place] [address] Social History Tobacco Use Types Packs/Day Years [...] Description 08/20/2024 1:10 AM CDT Clinical Support [facility] - Cardiology [address] [address] 10/10/2024 10:20 AM CDT [facility] [address] [facility], [place] [phone] Bharathi Higuera MD [address] [facility], [address] [address] 11/19/2024 1:10 AM CDT Clinical Support [facility] - Cardiology [address] [facility], [address] [address] 01/24/2025 10:30 AM CDT Office Visit [facility] - Pulmonology [address] [facility], [place] [address] Jack Milian MD [address] [place] [address] 2[address] DIV OF PULM/[place] [address] documented as of this encounter Visit Diagnoses Not on filedocumented in this encounter Care Teams Juvenile Detention Officer Relationship Specialty Start Date End Date Kristen Graf APRN-AUTOMATIC SILK SCREEN PRINTER PCP - General 04/27/20 05/19/21 Tracie Pritchett MD [address] [place] [address] [place] [id number] PCP - General Internal Medicine Geriatric Medicine 05/20/21 05/23/21 Kristen Graf APRN-AUTOMATIC SILK SCREEN PRINTER [address] [address] PCP - General 05/24/21 documented as of this encounter
--- OUTSIDE RECORDS SUMMARY | 2024-08-08 13:05 | XMS_ITS | Encounter Summary ---
Author Organization [facility] Health Address [address] [facility] [place] [address] Care Team Providers Care Ip Paralegal Name Role Phone Kristen rGaf APRN-CONSTRUCTION LINEMAN Primary Care Provider Reason for Visit * Reason Onset Date Comments Appointment 07/29/2022 Encounter Details Date Type Department Care Team (Late st Contact Info) Description 07/29/2022 Telephone [facility] [address] [place] [address] Dominic Hines MD [address] [place], [place] [id number] Appointment Social History Tobacco Use Types Packs/Day [...] Support [facility] [address] [address] 10/10/2024 10:20 AM CDT [facility] [address] [address] Bharathi Higuera MD [address] [address] 11/19/2024 1:10 AM CDT Clinical Support [facility] - [facility]iology [address] [address] 01/24/2025 10:30 AM CDT Office Visit [facility] - Pulmonology [address] [place] [address], [place] [address] Jack Milian MD [address] [place] [address] 2L DIV [place] PUL[place] [address] documented as of this encounter Visit Diagnoses Not on filedocumented in this encounter Care Teams Ip Paralegal Relationship Specialty Start Date End Date Kristen Graf APRN-CONSTRUCTION LINEMAN [address] [place] [address] [address] PCP - General 05/24/21 documented as of this encounter
--- OUTSIDE RECORDS SUMMARY | 2024-08-08 13:05 | XMS_ITS | Clinical Summary ---
Author Organization [facility] Address [address] [facility] [place] [address] Phone Care Team Providers Care Competency Evaluated Nurse Aide Name Role Phone Minh Thornton MD Primary Care Provider [phone] Allergies No known active allergies Medications CALCIUM CARBONATE (CALCIUM 500 ORAL) Take by mouth. Activ e MULTIVITAMINS WITH FLUORIDE (MULTI-VITAMIN ORAL) Take by mouth. Activ e clobetasol (TEMOVATE) 0.05 % Lotion Apply to affected area. Active XIIDRA 5 % Dropperette 8 Active XARELTO 20 mg Tablet 8 Active vit C/E/Zn/copyright clerk/lut/z ea/bio/saf (RETAINE VISION ORAL) Take by mouth. [...] on file Legal Sex Female 3:34 AM SCIENTIFIC MANAGER Gender Identity Not on file Sexual Orientation Not on file Occupation Industry Job Start Date Job End Date Not on file Not on file Not on file Not on file Last Filed Vital Signs Vital Sign Reading Time Taken Comments Blood Pressure 122/78 03/19/2024 10:45 AM SCIENTIFIC MANAGER Pulse - - Temperature - - Respiratory Rate - - Oxygen Saturation - - Inhaled Oxygen Concentration - - Weight 73 kg (161 lb) 03/19/2024 10:45 AM SCIENTIFIC MANAGER Height 167.6 cm (5' 6 ) 03/19/2024 10:45 AM SCIENTIFIC MANAGER Body Mass Index 25.99 03/19/2024 10:45 AM SCIENTIFIC MANAGER Plan of Treatment Health Maintenance Due [...] [employer] P[employer] Care Teams Competency Evaluated Nurse Aide Relationship Specialty Start Date End Date Minh Thornton MD PCP - General Internal Medicine 01/01/15
--- OUTSIDE RECORDS SUMMARY | 2024-08-08 13:05 | XMS_ITS | Continuity of Care Document ---
Author Organization [facility] Address [address] [place] [address] Phone Care Team Providers Care Swine Extension Field Specialist Name Role Phone Conversion MD, Doctor Unavailable Unavailabl e Advance Directives Directive Yes / No Effective Date File Name No Information Encounters Encounter Description Practice Location Reason(s) For Visit Diagnoses Date Provider Providers Copied on Encounter Via, [address], [place], [place], [id number] , tel: [phone] Conversion Department No Information 7 1 Conversion Doctor. [address] [place] [address], [address], . [facility], [address], [place], [place], [address] , tel: [phone] [facility] GENERAL OSTEOARTHROSIS HYPERLIPIDEMIA NEC/NOSSCREEN MAL NEOP-RECTUM September- 0-200 7 Ramila Moss. [facility] [address], [place], [place], [address], . tel: [phone] [facility], [address], [place], [place], [address] , tel: [phone] Administration CHEST PAIN NECPURE HYPERCHOLESTER OLEM Dec-2 9-200 4 Ramila Moss. [address], [address], [place], [place], [address], [place]. tel: [phone] [facility], [address], [place], [place], [address] , tel: [phone] [facility] CHEST PAIN NOS Dec-2 0-200 4 Ramila Moss. [address], [address], [place], [place], [address], [place]. tel: [phone] [facility], [address], [place], [place], [address] , [place] tel: [phone] [facility] SCREEN-DIABETE S MELLITUSSYMPT FEM CLIMACT STATEASCVD Sep-2 3-200 3 Ramila Moss. [address], [address], [place], [place], [address], [place]. tel: [phone] [employer], [address], [place], [place], [address] , [place] tel: [phone] [facility] ACUTE BRONCHITIS Sep-1 2-200 3 Ramila Moss. [address], [address], [place], [place], [address], [place]. tel: [phone] [facility], [address], [place], [place], [address] , [place] tel: [phone] [facility] BACKACHE NOS Mar- 8-200 1 Ramila Moss. [facility] [address], [address], [place], [place], [address], [place]. tel: [phone] [facility], [address], [place], [place], [address] , [place] tel: [phone] [facility] SCREEN MAL NEOP OTH SITE 6-200 0 Ramila Moss. [address], [address], [place], [place], [address], [place]. tel: [phone] [facility], [address], [place], [place], [address] , [place] tel: [phone] [facility] PTOSIS OF EYELID NOSABDMNAL PAIN GENERALIZED September- 2-200 0 Ramila Moss. [address], [address], [place], [place], [address], [place]. tel: [phone] [employer], [address], [place], [place], [address] , [place] tel: [phone] [facility] GENERAL MEDICAL EXAM NOSPALPITATION S 1-199 9 Ramila Moss. [address], [place], [place], [address], [place]. tel: [phone] Family History Family Member Type Diagnosis Age At Onset No Information Payers Payer name Insurance type Covered democrat ID Authoriza tion(s) No Information Social History [...]
[2024-08-08 13:07] LABS: Troponin I < 0.012 ng/mL (0.000-0.034)
[2024-08-08 13:08] LABS: NT Pro B Type Natriuretic Pept 694 pg/mL (19.9-100); Troponin I < 0.012 ng/mL (0.000-0.034)
[2024-08-08 13:20] LABS: Alanine Aminotransferase 107 U/L (6-35); Albumin Level 3.2 g/dL (3.5-5.1); Alkaline Phosphatase 107 U/L (38-126); Anion Gap 9 mmol/L (4-12); Aspartate Amino Transferase 33 U/L (14-36); Bilirubin,Total 0.6 mg/dL (0.2-1.3); Blood Urea Nitrogen 20 mg/dL (7-17); Calcium 8.5 mg/dL (8.4-10.2); Carbon Dioxide 31 mmol/L (22-30); Chloride 95 mmol/L (98-107); Estimated CRCL calculation 39 ml/min; Estimated Glomerular Filt Rate 60; Glucose 188 mg/dL (65-110); Potassium 3.7 mmol/L (3.4-5.0); Sodium 135 mmol/L (137-145)
--- NOTE | 2024-08-08 13:26 | ED.SYNCOPE ---
HPI - Syncope General Chief Complaint: Syncope Stated Complaint: syncopal episode Time Seen by Provider: 08/08/24 12:02 History of Present Illness HPI narrative: 83-year-old female with a past medical history including COPD, diastolic dysfunction, paroxysmal AFib on rivaroxaban, history of hypertension. History of permanent pacemaker. Patient recently admitted and discharged yesterday after a hospitalization for pneumonia, weakness and hypoxic respiratory failure requiring oxygen. Patient presents today as she was at her correction facility and had a witnessed syncopal event. She was just getting her morning medications when she felt weak and had lost consciousness briefly. Patient initially refused going to the hospital but her family members encouraged her. Patient presently states she just feels generalized weakness but has no complaints such as chest pain, shortness a breath, nausea, vomiting, abdominal pain or fever. She did not fall or injure herself. Denies any head trauma. Took her morning medications is not missed any dosages. Was feeling better upon discharge yesterday. Related Data Home Medications ?Medication ?Instructions ?Recorded ?Confirmed ?Last Taken ?Type cholecalciferol (vitamin D3) 25 1,000 unit PO DAILY 01/13/20 08/08/24 07/31/24 History mcg (1,000 unit) capsule hydralazine 50 mg tablet 50 mg PO DAILY PRN Hypertension 03/26/21 08/08/24 Unknown History rivaroxaban 15 mg tablet (Xarelto) 15 mg PO QPM 04/27/21 08/08/24 07/30/24 History buspirone 10 mg tablet 20 mg PO 0830,1330,1930 01/11/22 08/08/24 07/31/24 08:30 History carvedilol 25 mg tablet (Coreg) 12.5 mg PO Q12H 11/08/23 08/08/24 07/31/24 08:30 History cyclosporine 0.05 % eye drops 1 drp EACH EYE Q12H 11/08/23 08/08/24 07/31/24 History (Restasis MultiDose) flecainide 150 mg tablet 150 mg PO Q12H 11/08/23 08/08/24 07/31/24 History losartan 25 mg tablet 25 mg PO DAILY 11/08/23 08/08/24 07/31/24 History sennosides 8.6 mg-docusate sodium 1 tab-cap PO DAILY 08/08/24 08/08/24 Unknown History 50 mg tablet (Senna with Docusate Sodium) Allergies Allergy/AdvReac Type Severity Reaction Status Date / Time monosodium glutamate AdvReac Unknown Fatigued Verified 08/08/24 18:18 Review of Systems Review of Systems: As reviewed above in [facility] Past Medical History Medical History Hypokalemia Diastolic dysfunction Transient ischemic attack At the age of 29, attributed to oral contraceptives. Chronic anticoagulation Anxiety Chronic obstructive pulmonary disease Related to significant secondhand smoke exposure. Dyslipidemia Left carotid bruit Unremarkable carotid Doppler ultrasounds on 09/09/2019. Eczema Paroxysmal atrial fibrillation Paroxysmal atrial fibrillation/atrial flutter. Maintained on flecainide, carvedilol, and rivaroxaban. Patient of Dr. Bharathi Higuera at [facility]. Hypertension Headache, migraine Arthritis Surgical History Surgical History History of permanent cardiac pacemaker placement History of cardiac radiofrequency ablation History of tubal ligation History of tonsillectomy History of appendectomy History of ventral hernia repair History of uterine suspension procedure History of eyelid surgery Family History Family History Mother Family history of kidney disease Family history of elevated blood lipids Acute myocardial infarction, Onset Age: 93 Family history of liver disease, Onset Age: 93 Family history of congestive heart failure Family history of chronic obstructive pulmonary disease Family history of renal failure, Onset Age: 93 Father Family history of migraine headaches Hypertension Grandparent Cerebrovascular accident Other Family history of cardiovascular disease Social History Social History Social History: Surrogate medical decision maker: Alcides Aaron, spouse. Code status: Full code. Smoking status: Never smoker Second hand tobacco smoke exposure: Yes Alcohol intake: never Substance use: never Substance use type: does not use Do You Feel Safe in your Home?: Yes Lack of Transportation: No Lack of Food: Never True Current Housing: I Have Housing Concerned About Future Housing: No Difficulty Paying Gas/Electric Bills: No Difficulty Paying for Meds: No Currently Unemployed: No Education: Bachelor's Degree Difficulty w/ Childcare or Family Care: No Additional living arrangements comments: . Lives with spouse in [place]. They have 2 children. 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 Spiritual care concerns: No Exam Narrative: GENERAL: Elderly, frail but not any acute distress HEAD: [Normocephalic, atraumatic.] EYES: [PERRLA and EOMI.] ENT: Nares clear, no rhinorrhea or epistaxis. Mucous membranes moist. NECK: Supple. CHEST: [Clear to auscultation. No respiratory distress.] HEART: [Regular rate and rhythm]. No murmur heard. [Normal peripheral pulses.] ABDOMEN: [Soft, nondistended], [nontender], [No rigidity or guarding] EXTREMITIES: Normal range of motion. [No edema.] SKIN: Warm, dry, no rash. NEURO: [No focal deficits]. Alert and oriented [x3.] PSYCH: [Normal mood and affect.] Course Vital Signs Vital signs: Vital Signs Temperature 36.4 C 08/08/24 10:56 Pulse Rate 69 08/08/24 10:56 Respiratory Rate 22 H 08/08/24 10:56 Pulse Oximetry 93 08/08/24 10:56 Oxygen Delivery Room Air 08/08/24 10:56 Temperature 36.4 C 08/08/24 10:56 Pulse Rate 60 08/08/24 17:31 Respiratory Rate 18 08/08/24 17:31 Blood Pressure 127/54 L 08/08/24 17:31 Pulse Oximetry 98 08/08/24 17:31 Oxygen Delivery Room Air 08/08/24 10:56 MDM - Syncope MDM Narrative Medical decision making narrative: 83-year-old female with a past medical history including COPD, diastolic dysfunction, atrial fibrillation on anticoagulation, hypertension. Presents today after a witnessed syncopal event at her nursing facility. Patient was just discharged yesterday from a hospitalization for pneumonia and hypoxia requiring oxygen. Patient presently has no acute complaints she states that she did not want to go to the hospital today. Denies any chest pain, shortness a breath, nausea, vomiting abdominal pain, back pain pain or headache. She did not fall or injure herself. Family members at bedside states that she was unconscious for several minutes and witnessed the event, did not appreciate having any prodrome. Considerations presently are for electrolyte disturbances, infectious pathology, recurrence for pneumonia, viral syndrome, dysrhythmia, less likely intracranial pathology such as TIA or stroke. No seizure activity was reported. Possibly also vasovagal or orthostatic event. A broad workup was ordered including electrolytes, cardiac enzymes, CBC, chest x-ray, EKG, CT of the head. Patient's workup shows significant derangements including leukocytosis of 16.2 which was not present yesterday. Anemia at her baseline. Platelet count at her baseline. Electrolyte profile shows no significant derangements, normal renal function. Slightly hyperglycemic 188. Lactic acid at 2.8 which down trended after fluid resuscitation. LFTs normal. Negative troponin, delta troponin. Unremarkable BNP. Urinalysis has some trace red cells but no bacteria. Negative viral panel. CT of the head is unremarkable, old lacunar infarct is seen. Chest x-ray shows stable pulmonary disease, small effusions. No pneumonia. Patient had improvement her vital signs after fluid resuscitation, initial blood pressure 85/46 which improved 127/54. Potential for over-diuresis from previous admission, sepsis, active infection given that she has elevated leukocytes, lactic acid and hypotension. She will be readmitted to the hospital for further evaluation of all of this. She was started empirically on antibiotics until this can be further assessed. Blood cultures obtained. Spoke to the hospitalist currently being covered by the midlevel provider who accepted the patient to a telemetry monitored bed at this time. Medical Records Attestation: I reviewed the patient's medical records. Lab Data Attestation: I reviewed the patient's lab results. 08/08/24 11:29 08/08/24 12:30 Labs: Lab Results 08/08/24 08/08/24 08/08/24 Range/Units 11:29 11:48 12:30 WBC 16.2 H (4.5-10.0) K/mm3 RBC 3.38 L (4.2-5.4) M/mm3 Hgb 10.5 L (12.0-15.0) g/dL Hct 33.2 L (37.0-47.0) % MCV 98.2 (80-100) fl MCH 31.1 (26-34) pg MCHC 31.6 L (32-36) g/dl RDW 15.9 H (11.5-14.5) % Plt Count 309 (150-375) k/mm3 MPV 8.7 (7.4-10.4) fl Immature Gran % (Auto) 0.7 H (0-0.5) % Neut % (Auto) 85.1 H (45.5-73.1) % Lymph % (Auto) 6.5 L (18.3-44.2) % [place] % (Auto) 7.3 (2.6-8.5) % Eos % (Auto) 0.2 (0-4.4) % Baso % (Auto) 0.2 (0.2-1.2) % Lymph # (Auto) 1.06 (0.9-3.2) K/mm3 [place] # (Auto) 1.2 H (0.1-0.6) K/mm3 Eos # (Auto) 0.0 (0-0.3) K/mm3 Baso # (Auto) 0.0 (0.0-0.1) K/mm3 Abs Immat Gran (auto) 0.12 H (0.00-0.031) K/mm3 Absolute Neuts (auto) 13.8 H (1.3-6.7) K/mm3 Absolute Nucleated RBC 0.000 (0.0-0.012) K/mm3 Nucleated RBC % 0.0 (0.0-0.2) % PT 26.2 H (11.1-14.7) Seconds INR 2.3 APTT 38.8 H (22.3-36.8) Seconds Sodium 135 L (137-145) mmol/L Potassium 3.7 (3.4-5.0) mmol/L Chloride 95 L (98-107) mmol/L Carbon Dioxide 31 H (22-30) mmol/L Anion Gap 9 (4-12) mmol/L BUN 20 H (7-17) mg/dL Creatinine 0.90 (0.7-1.0) mg/dL Estim Creat Clear Calc 39 ml/min Estimated GFR 60 (59 - ) Glucose 188 H (65-110) mg/dL Lactic Acid (0.7-2.0) mmol/L Calcium 8.5 (8.4-10.2) mg/dL Total Bilirubin 0.6 (0.2-1.3) mg/dL AST 33 (14-36) U/L ALT 107 H (6-35) U/L Alkaline Phosphatase 107 (38-126) U/L Troponin I < 0.012 (0.000-0.034) ng/mL NT-Pro-B Natriuret Pep (19.9-100) pg/mL Total Protein (6.3-8.2) g/dL Albumin (3.5-5.1) g/dL Urine Color (Yellow) Urine Appearance (Clear) Urine pH (5.0-9.0) Ur Specific Alexander (1.001-1.035) Urine Protein (Negative) mg/dL Urine Glucose (UA) (Negative) mg/dL Urine Ketones (Negative) mg/dL Ur Blood (Man) (Negative) Urine Nitrate (Negative) Urine Bilirubin (Negative) Urine Urobilinogen (<2.0) mg/dL Leukocyte Esterase Rfl (Negative) NAKUL/UL Urine RBC (0-2) /hpf Urine WBC (0-3) /hpf Ur Squamous Epith Cells (Few) /hpf Urine Bacteria /hpf Urine Casts Influenza A (RT-PCR) Negative (Negative) Influenza B (RT-PCR) Negative (Negative) RSV (RT-PCR) Negative (Negative) SARS-CoV-2 RNA (RT-PCR) Negative (Negative) 08/08/24 08/08/24 08/08/24 Range/Units 12:30 14:11 15:41 WBC (4.5-10.0) K/mm3 RBC (4.2-5.4) M/mm3 Hgb (12.0-15.0) g/dL Hct (37.0-47.0) % MCV (80-100) fl MCH (26-34) pg MCHC (32-36) g/dl RDW (11.5-14.5) % Plt Count (150-375) k/mm3 MPV (7.4-10.4) fl Immature Gran % (Auto) (0-0.5) % Neut % (Auto) (45.5-73.1) % Lymph % (Auto) (18.3-44.2) % [place] % (Auto) (2.6-8.5) % Eos % (Auto) (0-4.4) % Baso % (Auto) (0.2-1.2) % Lymph # (Auto) (0.9-3.2) K/mm3 [place] # (Auto) (0.1-0.6) K/mm3 Eos # (Auto) (0-0.3) K/mm3 Baso # (Auto) (0.0-0.1) K/mm3 Abs Immat Gran (auto) (0.00-0.031) K/mm3 Absolute Neuts (auto) (1.3-6.7) K/mm3 Absolute Nucleated RBC (0.0-0.012) K/mm3 Nucleated RBC % (0.0-0.2) % PT (11.1-14.7) Seconds INR APTT (22.3-36.8) Seconds Sodium (137-145) mmol/L Potassium (3.4-5.0) mmol/L Chloride (98-107) mmol/L Carbon Dioxide (22-30) mmol/L Anion Gap (4-12) mmol/L BUN (7-17) mg/dL Creatinine (0.7-1.0) mg/dL Estim Creat Clear Calc ml/min Estimated GFR (59 - ) Glucose (65-110) mg/dL Lactic Acid 2.8 H (0.7-2.0) mmol/L Calcium (8.4-10.2) mg/dL Total Bilirubin (0.2-1.3) mg/dL AST (14-36) U/L ALT (6-35) U/L Alkaline Phosphatase (38-126) U/L Troponin I < 0.012 < 0.012 (0.000-0.034) ng/mL NT-Pro-B Natriuret Pep 694 H (19.9-100) pg/mL Total Protein 6.0 L (6.3-8.2) g/dL Albumin 3.2 L (3.5-5.1) g/dL Urine Color Yellow (Yellow) Urine Appearance Clear (Clear) Urine pH 7.5 (5.0-9.0) Ur Specific [place] 1.006 (1.001-1.035) Urine Protein Negative (Negative) mg/dL Urine Glucose (UA) Negative (Negative) mg/dL Urine Ketones Negative (Negative) mg/dL Ur Blood (Man) 1+ H (Negative) Urine Nitrate Negative (Negative) Urine Bilirubin Negative (Negative) Urine Urobilinogen 0.2 (<2.0) mg/dL Leukocyte Esterase Rfl Trace H (Negative) NAKUL/UL Urine RBC 3-5 H (0-2) /hpf Urine WBC 0-5 (0-3) /hpf Ur Squamous Epith Cells None seen (Few) /hpf Urine Bacteria None seen /hpf Urine Casts 0-2 Influenza A (RT-PCR) (Negative) Influenza B (RT-PCR) (Negative) RSV (RT-PCR) (Negative) SARS-CoV-2 RNA (RT-PCR) (Negative) Imaging Data Attestation: I personally reviewed and interpreted this imaging study as follows: Radiologist's impression: Impressions Head CT 08/08/24 11:58 IMPRESSION: 1. Small lacunar infarct at the left lentiform nucleus. No acute intracranial process. Chest X-Ray 08/08/24 12:22 IMPRESSION: 1. Stable diffuse lung disease, consistent with mild pulmonary edema and/or chronic lung disease. 2. Stable small right pleural effusion. Critical Care Time Critical Care Time Critical Care Time: Yes Total Critical Care Time: 40 Discharge Plan Discharge Clinical Impression: Syncope, Elevated WBC count, Increased lactic acid level, Acute hypotension Patient Disposition: Still a Patient Condition: Stable
[2024-08-08] MEDS: LACTATED RINGERS 1,000 ML 999 ML IV CONT (13:34)
[2024-08-08] MEDS: ONDANSETRON INJ 4 MG/2 ML VIAL IV PUSH (14:07)
[2024-08-08 14:28] LABS: Lactic Acid Reflex 2.8 mmol/L (0.7-2.0)
[2024-08-08 15:52] LABS: Add Urine Microscopic? YES; Appearance Urine Clear (Clear); Bacteria Urine None Seen /hpf; Bilirubin Urine Negative (Negative); Blood Urine 1+ (Negative); Color Urine Yellow (Yellow); Glucose Urine UA Negative (Negative); Ketones Urine Negative (Negative); Leukocyte Esterase Ur Trace LEU/UL (Negative); Nitrate Urine Negative (Negative); Non Pathogenic Casts 0-2; Protein Urine Negative (Negative); Specific Grav Ur 1.006 (1.001-1.035); Squamous Epithelial Cell Urine None Seen /hpf (Few); Urobilinogen Urine 0.2 mg/dL (<2.0); WBC Urine 0-5 /hpf (0-3); pH Urine 7.5 (5.0-9.0)
[2024-08-08 16:10] LABS: Troponin I < 0.012 ng/mL (0.000-0.034)
[2024-08-08] MEDS: CEFEPIME 2 GM/NS 50 ML 2 GM/50 ML BAG IVPB (16:10)
[2024-08-08 16:17] LABS: Reflex Lactic Acid Yes or No Add Lactic
[2024-08-08 16:46] LABS: Lactic Acid 1.2 mmol/L (0.7-2.0)
[2024-08-08] MEDS: VANCOMYCIN 1,750 MG/NS 500 ML 1,750 MG/500 ML BAG 250 MG IVPB (17:00)
[2024-08-08 17:43] LABS: MRSA (PCR) NOT DETECTED (NOT DETECTE)
--- NOTE | 2024-08-08 17:45 | ADMGEN ---
This patient, Beth Aaron, was admitted to Medical Room 257-. Patient/family oriented to hospital policies and general routines including ID bracelet, bed and alarms, visiting hours, pain management, procedures, bathroom and other care routines, personal items, smoking policy, room service/diet, and visiting hours. Information on how to activate the Rapid Response Team has been discussed. Patient/Family are encouraged to report perceived risks to care and to ask questions if they do not understand what they are told or what they should do.
[2024-08-08] MEDS: LACTATED RINGERS 1,000 ML 125 ML IV CONT (18:40)
[2024-08-08 18:52] LABS: Troponin I < 0.012 ng/mL (0.000-0.034)
--- NOTE | 2024-08-08 20:56 | P.HP_ITS ---
H&P: HPI History of Present Illness Date/Time: 08/08/24 20:56 Chief Complaint: Syncope Narrative: This is an 83-year-old female with a significant past medical history of COPD, diastolic CHF, paroxysmal A Fib on Xarelto, hypertension, permanent pacemaker who presented to the hospital with witnessed syncopal episode at her nursing facility. Patient was recently admitted on 07/31/2024 with shortness of breath, of poor p.o. intake and lethargy. At that time she was found to have pleural effusions right greater than left, her BNP was 6460 and she was started on IV Lasix 40 mg daily and then transitioned to Lasix 20mg BID.Cardiology was consulted and recommended that she only be started on Lasix 20 mg daily on discharge and did not feel she was in CHF. At discharge she was sent home with Lasix 20mg BID. She states had a normal night the day she was discharged and woke up, met with a friend to discuss her new medications and while they were talking she passed out. Her friend held onto her and called for help. She was brought back to the hospital for further evaluation. On arrival to the ER she was found to be Alert and oriented x3 and hypotensive. She does have a pacemaker and states she had it interrogated back in Jun/July of this year and it was functioning properly. She currently denies any fever, chills, nausea, vomiting, diarrhea, abdominal pain, chest pain, shortness a breath, lightheadedness, dizziness, blurred vision. Workup in the hospital included head CT which showed old small lacunar infarct at the left lentiform nucleus, no acute intracranial process. Chest x-ray showed stable diffuse lung disease consistent with mild pulmonary edema and/or chronic lung disease, stable small right pleural effusion. Head/neck CTA shown multiple areas of narrowing suggesting fibromuscular dysplasia, right thyroid large cystic nodule, enlarged pericardial lymph node, right pleural effusion, bilateral lung ground-glass appearance indicating atelectasis versus pneumonia. Initial labs showed a white blood cell count of 16.2, hemoglobin 10.5, INR 2.3, sodium 135, chloride 95, bicarb 31, lactic acid 2.8> 1.2, troponin negative x2, ALT 107, proBNP 694. UA was obtained which showed 1+ urine blood, trace leukocyte, 3-5 urine RBC, otherwise negative. MRSA was negative. Respiratory panel was negative for influenza a and B, RSV, COVID. Blood cultures were obtained and pending. EKG shown atrial pacemaker with left axis deviation with a rate of 61, QTC 492. Patient was given 2 L of IV fluids, Zofran, vancomycin, cefepime while in the ED. Review of Systems Review of Systems: All systems reviewed & are unremarkable except as noted in HPI and below PMFSH Past Medical History Medical History Hypokalemia Diastolic dysfunction Transient ischemic attack At the age of 29, attributed to oral contraceptives. Chronic anticoagulation Anxiety Chronic obstructive pulmonary disease Related to significant secondhand smoke exposure. Dyslipidemia Left carotid bruit Unremarkable carotid Doppler ultrasounds on 09/09/2019. Eczema Paroxysmal atrial fibrillation Paroxysmal atrial fibrillation/atrial flutter. Maintained on flecainide, carvedilol, and rivaroxaban. Patient of Dr. Bharathi Higuera at [facility]. Hypertension Headache, migraine Arthritis Surgical History Surgical History History of permanent cardiac pacemaker placement History of cardiac radiofrequency ablation History of tubal ligation History of tonsillectomy History of appendectomy History of ventral hernia repair History of uterine suspension procedure History of eyelid surgery Family History Family History Mother Family history of kidney disease Family history of elevated blood lipids Acute myocardial infarction, Onset Age: 93 Family history of liver disease, Onset Age: 93 Family history of congestive heart failure Family history of chronic obstructive pulmonary disease Family history of renal failure, Onset Age: 93 Father Family history of migraine headaches Hypertension Grandparent Cerebrovascular accident Other Family history of cardiovascular disease Social History Social History Social History: Surrogate medical decision maker: Alcides Aaron, spouse. Code status: Full code. Smoking status: Never smoker Second hand tobacco smoke exposure: Yes Alcohol intake: never Substance use: never Substance use type: does not use Do You Feel Safe in your Home?: Yes Lack of Transportation: No Lack of Food: Never True Current Housing: I Have Housing Concerned About Future Housing: No Difficulty Paying Gas/Electric Bills: No Difficulty Paying for Meds: No Currently Unemployed: No Education: Bachelor's Degree Difficulty w/ Childcare or Family Care: No Additional living arrangements comments: . Lives with spouse in [place]. They have 2 children. 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 Spiritual care concerns: No Meds Home Medications and Allergies Home Medications ?Medication ?Instructions ?Recorded ?Confirmed ?Type cholecalciferol (vitamin D3) 25 1,000 unit PO DAILY 01/13/20 08/08/24 History mcg (1,000 unit) capsule hydralazine 50 mg tablet 50 mg PO DAILY PRN Hypertension 03/26/21 08/08/24 History rivaroxaban 15 mg tablet (Xarelto) 15 mg PO QPM 04/27/21 08/08/24 History buspirone 10 mg tablet 20 mg PO 0830,1330,1930 01/11/22 08/08/24 History carvedilol 25 mg tablet (Coreg) 12.5 mg PO Q12H 11/08/23 08/08/24 History cyclosporine 0.05 % eye drops 1 drp EACH EYE Q12H 11/08/23 08/08/24 History (Restasis MultiDose) flecainide 150 mg tablet 150 mg PO Q12H 11/08/23 08/08/24 History losartan 25 mg tablet 25 mg PO DAILY 11/08/23 08/08/24 History tamsulosin 0.4 mg capsule 0.4 mg PO QAM 30 days #30 caps 07/08/24 08/08/24 Rx benzonatate 100 mg capsule 100 mg PO TID PRN Cough #15 caps 07/30/24 08/08/24 Rx ferrous sulfate 325 mg (65 mg 325 mg PO BID #60 tabs 07/30/24 08/08/24 Rx iron) tablet,delayed release guaifenesin 600 mg tablet, 600 mg PO Q12HR #14 tabs 07/30/24 08/08/24 Rx extended release 12 hr (Mucus Relief ER) furosemide 20 mg tablet 20 mg PO BID #14 tabs 08/07/24 08/08/24 Rx potassium chloride 10 mEq 10 meq PO DAILY #7 caps 08/07/24 08/08/24 Rx capsule,extended release sennosides 8.6 mg-docusate sodium 1 tab-cap PO DAILY 08/08/24 08/08/24 History 50 mg tablet (Senna with Docusate Sodium) Allergies Allergy/AdvReac Type Severity Reaction Status Date / Time monosodium glutamate AdvReac Unknown Fatigued Verified 08/08/24 18:18 Vital Signs Vital Signs - 24 hr 08/08/24 10:56 08/08/24 11:16 08/08/24 11:24 Temperature 97.6 F Pulse Rate 69 92 63 Respiratory Rate 22 H 37 H 22 H Blood Pressure 85/46 L 87/45 L Pulse Oximetry 93 95 95 Oxygen Delivery Room Air 08/08/24 11:31 08/08/24 12:30 08/08/24 12:45 Temperature Pulse Rate 60 60 60 Respiratory Rate 20 16 17 Blood Pressure 93/48 L 132/57 L 114/53 L Pulse Oximetry 90 100 94 Oxygen Delivery 08/08/24 13:30 08/08/24 13:33 08/08/24 13:33 Temperature Pulse Rate 63 60 69 Respiratory Rate 12 Blood Pressure 125/53 L 114/53 L 123/50 L Pulse Oximetry 99 Oxygen Delivery 08/08/24 13:33 08/08/24 14:00 08/08/24 14:30 Temperature Pulse Rate 64 69 65 Respiratory Rate 14 16 Blood Pressure 136/57 L 147/69 H 126/62 Pulse Oximetry 100 100 Oxygen Delivery 08/08/24 15:01 08/08/24 15:53 08/08/24 16:00 Temperature Pulse Rate 63 62 60 Respiratory Rate 18 18 21 H Blood Pressure 112/56 L 117/80 Pulse Oximetry 96 95 94 Oxygen Delivery 08/08/24 16:01 08/08/24 16:31 08/08/24 16:46 Temperature Pulse Rate 60 60 60 Respiratory Rate 20 14 22 H Blood Pressure 125/59 L 105/53 L 127/56 L Pulse Oximetry 95 95 94 Oxygen Delivery 08/08/24 17:06 08/08/24 17:16 08/08/24 17:31 Temperature Pulse Rate 64 60 60 Respiratory Rate 21 H 20 18 Blood Pressure 116/82 127/54 L 127/54 L Pulse Oximetry 94 95 98 Oxygen Delivery Exam Narrative: General: In no acute distress, well nourished Head: atraumatic, no encephalopathy Eyes: PERRLA, sclera clear ENT: moist mucous membranes, nasal passages clear Neck: supple, no JVD, no adenopathy, trachea midline Cardiac: Normal S1 and S2. No murmur, gallops or friction rubs, peripheral pulses intact. Respiratory: Lungs clear to auscultation, no adventitious lung sounds, currently on 1 L nasal cannula Gastrointestinal: soft, non-distended, non-tender, normoactive bowel sounds. : voiding without difficulty. Extremities: moves all extremities well, 1+ pitting edema left greater than right lower extremity Skin: clean, dry, intact. No wounds or lesions. Neuro: Alert and oriented x4, cranial nerves intact, no neuro deficits. Psych: normal mood, normal affect, interactive H&P: Results Labs Labs: Short CBC 08/08/24 Range/Units 11:29 WBC 16.2 H (4.5-10.0) K/mm3 Hgb 10.5 L (12.0-15.0) g/dL Hct 33.2 L (37.0-47.0) % Plt Count 309 (150-375) k/mm3 BMP 08/08/24 12:30 Sodium 135 L Potassium 3.7 Chloride 95 L Carbon Dioxide 31 H BUN 20 H Creatinine 0.90 Glucose 188 H Calcium 8.5 Cardiac Enzymes 08/08/24 08/08/24 08/08/24 Range/Units 12:30 12:30 15:41 Troponin I < 0.012 < 0.012 < 0.012 (0.000-0.034) ng/mL 08/08/24 Range/Units 18:27 Troponin I < 0.012 (0.000-0.034) ng/mL Liver Function 08/08/24 Range/Units 12:30 Total Bilirubin 0.6 (0.2-1.3) mg/dL AST 33 (14-36) U/L ALT 107 H (6-35) U/L Alkaline Phosphatase 107 (38-126) U/L Albumin 3.2 L (3.5-5.1) g/dL Urine 08/08/24 Range/Units 15:41 Urine Color Yellow (Yellow) Urine Appearance Clear (Clear) Urine pH 7.5 (5.0-9.0) Ur Specific [place] 1.006 (1.001-1.035) Urine Protein Negative (Negative) mg/dL Urine Glucose (UA) Negative (Negative) mg/dL Imaging Chest x-ray: Radiologist's impression: EXAMINATION: XR chest 2V DATE: 08/08/2024 12:08 INDICATION: Syncope. TECHNIQUE: Frontal and lateral views of the chest were obtained. COMPARISON: Chest 2 view 08/05/2024, chest CT 07/31/2024 FINDINGS: There is scarring at the lung apices. There is a diffuse interstitial pattern in the lungs. There are mild airspace opacities in right lower lung zone. There is a small right pleural effusion. No pneumothorax. The heart size is normal. There is a right chest wall pacer with leads in the right atrium and right ventricle. IMPRESSION: 1. Stable diffuse lung disease, consistent with mild pulmonary edema and/or chronic lung disease. 2. Stable small right pleural effusion. Reviewed, dictated and finalized at location A. CT scan - head: Radiologist's impression: EXAMINATION: CT brain wo con DATE: 08/08/2024 11:57 INDICATION: Syncope TECHNIQUE: Computed tomography (CT) of the head was performed without i ntravenous contrast. Sagittal and coronal reconstructions were performed. The mA was adjusted according to patient size. Iterative reconstruction technique was employed. The dose-length product was 605.33 mGy-cm. COMPARISON: head CT dated 07/30/23 FINDINGS: No acute intracranial hemorrhage, acute infarction or abnormal extra axial fluid collection. Unchanged small old lacunar infarct at the left lentiform nucleus. Symmetric prominence of the sulci consistent with mild age-appropriate diffuse cerebral volume loss. Ventricles are normal and symmetric. No mass/mass effect. Changes of bilateral intraocular lens replacement. The orbits and mastoid air cells are normal. Minimal dependently layering fluid/mucus in the right sphenoid sinus. IMPRESSION: 1. Small lacunar infarct at the left lentiform nucleus. No acute intracranial process. Reviewed, dictated and finalized at location B. Assessment and Plan Assessment and plan (1) Sepsis: Code(s): A41.9 - Sepsis, unspecified organism Status: Acute Assessment and Plan: * Patient initially meeting sepsis criteria with heart rate of 92, respiratory rate of 37, blood pressure ranging 85/46 to 93/48, lactic acidosis 2.8> 1.2 after resuscitation, pneumonia on imaging, white blood cell count 16.2 * Patient was given 2 L of IV fluids while in the ED with improvement in her blood pressure, heart rate, respiratory rate and lactic acid level * Head/neck CTA shown bilateral ground-glass appearance indicating pneumonia * Blood cultures obtained and pending * Patient was started on cefepime and vancomycin (2) Pneumonia: Qualifiers: Pneumonia type: due to unspecified organism Laterality: bilateral Lung location: unspecified part of lung Qualified Code(s): J18.9 - Pneumonia, unspecified organism Code(s): J18.9 - Pneumonia, unspecified organism Status: Acute Assessment and Plan: * Chest x-ray showed stable diffuse lung disease consistent with mild pulmonary edema and/or chronic lung disease, stable small right pleural effusion * Head/neck CTA showed right pleural effusion, bilateral lung ground-glass appearance which may be seen with atelectasis versus pneumonia * Patient was recently discharged from the hospital with pneumonia yesterday (3) Syncope: Code(s): R55 - Syncope and collapse Status: Acute Assessment and Plan: Witnessed episode of syncope at nursing facility * Head CT showed small lacunar infarct at the left lentiform nucleus which appe ars to be old, no acute intracranial process * Head/neck CTA which showed soft tissue density mass measuring 1 x 1.3 cm in the left orbit superiorly, multiple areas of narrowing in the right cervical c arotid artery suggestive of fibromuscular dysplasia. Right thyroid large cystic nodule, enlarged precarinal lymph node, right pleural effusion, bilateral lung ground-glass appearance indicating atelectasis versus pneumonia. * Patient was discharged on Lasix 20 mg b.i.d. however cardiology recommended her restart her home dose of Lasix 20 mg daily upon discharge on last admission. She presented with hypotension. * Patient received 2 L of IV fluids while in the ED with improvement in her hypotension * Echocardiogram reviewed from 08/05/2024 showed normal LV systolic function with an estimated EF of 65-70%, negative bubble study, moderate tricuspid regurgitation * Patient had her pacemaker interrogated back in of this year and was functioning properly at that time * EKG shown atrial paced rhythm with a rate of 61, QTC 492, right bundle branch block, left axis deviation * Will obtain orthostatic blood pressures Q shift * Patient follows with Dr. Higuera at [facility] for cardiology * Continue IV fluids at 75 mL/hour for hydration * Lasix currently on hold * ProBNP was 694 (4) History of permanent cardiac pacemaker placement: Code(s): Z95.0 - Presence of cardiac pacemaker Status: Acute Assessment and Plan: * Last interrogated in of this year and was functioning properly at that time * EKG showing atrial paced rhythm with a rate of 61, QTC 492, right bundle branch block, left axis deviation (5) Anemia: Code(s): D64.9 - Anemia, unspecified Status: Acute Assessment and Plan: * Hemoglobin 10.5 * Appears to be chronic * Continue ferrous sulfate (6) Paroxysmal atrial fibrillation: Code(s): I48.0 - Paroxysmal atrial fibrillation Status: Chronic Assessment and Plan: * Continue Coreg and Xarelto (7) Hypertension: Qualifiers: Hypertension type: unspecified Qualified Code(s): I10 - Essential (primary) hypertension Code(s): I10 - Essential (primary) hypertension Status: Chronic Assessment and Plan: * Blood pressure ranging 116/82 to 127/54 * Continue losartan 25 mg daily (8) Anxiety: Code(s): F41.9 - Anxiety disorder, unspecified Status: Acute Assessment and Plan: * Continue BuSpar (9) Thyroid nodule: Code(s): E04.1 - Nontoxic single thyroid nodule Status: Acute Assessment and Plan: * Incidental finding- Right thyroid large cystic nodule seen on head/neck CTA Quality VTE Prophylaxis VTE prophylaxis: pharmacologic ordered Hospitalist MIPS Advance Care Plan I have confirmed that the patient's Advanced Care Plan is present, code status is documented, or surrogate decision maker is listed in patient medical record.: Yes Medication Reconciliation I have utilized all available resources to obtain, update and review the patients current medications (includes all prescriptions, OTC, herbals, cannabis, and nutritional supplements).: Yes
[2024-08-08] MEDS: carvediloL 12.5 MG TABLET PO (22:01)
[2024-08-08] MEDS: FLECAINIDE ACETATE 50 MG TABLET 150 MG PO (22:01)
[2024-08-08] MEDS: guaiFENesin 12 HR 600 MG TABCR PO (22:02)
[2024-08-08] MEDS: cycloSPORINE 0.4 ML OPHTH SOLUTION 1 DROP EACH EYE (23:07)
[2024-08-09] VITALS (20 sets, daily range): BP systolic 87–116; BP diastolic 36–55; PULSE 60–80; RESP 16–20; TEMP 36.3–36.9; O2SAT 90–100
[2024-08-09] MEDS: CEFEPIME 2 GM/NS 50 ML 2 GM/50 ML BAG IVPB ×2 (03:29→15:19)
[2024-08-09 04:38] LABS: Basophils Percent Auto 0.3 % (0.2-1.2); Eosinophils Percent Auto 0.3 % (0-4.4); Hematocrit 27.2 % (37.0-47.0); Hemoglobin 8.4 g/dL (12.0-15.0); Immature Granulocyte Absolute 0.07 K/mm3 (0.00-0.031); Immature Granulocyte Percent A 0.5 % (0-0.5); Lymphocytes Percent Auto 13.3 % (18.3-44.2); Mean Corpuscular HGB Conc 30.9 g/dl (32-36); Mean Corpuscular Hemoglobin 30.5 pg (26-34); Mean Corpuscular Volume 98.9 fl (80-100); Mean Platelet Volume 8.5 fl (7.4-10.4); Monocytes Percent Auto 7.7 % (2.6-8.5); Neutrophils Percent Auto 77.9 % (45.5-73.1); Platelet Count Result 206 k/mm3 (150-375); Red Blood Count 2.75 M/mm3 (4.2-5.4); White Blood Count 12.8 K/mm3 (4.5-10.0)
[2024-08-09 04:56] LABS: Alanine Aminotransferase 81 U/L (6-35); Albumin Level 2.5 g/dL (3.5-5.1); Alkaline Phosphatase 87 U/L (38-126); Anion Gap 5 mmol/L (4-12); Aspartate Amino Transferase 26 U/L (14-36); Bilirubin,Total 0.7 mg/dL (0.2-1.3); Blood Urea Nitrogen 15 mg/dL (7-17); Calcium 8.2 mg/dL (8.4-10.2); Carbon Dioxide 32 mmol/L (22-30); Chloride 100 mmol/L (98-107); Estimated CRCL calculation 42 ml/min; Estimated Glomerular Filt Rate > 60; Glucose 92 mg/dL (65-110); Magnesium 1.9 mg/dL (1.6-2.3); Potassium 4.1 mmol/L (3.4-5.0); Sodium 137 mmol/L (137-145)
[2024-08-09] MEDS: LACTATED RINGERS 1,000 ML 75 ML IV CONT ×2 (07:00→20:28)
--- NOTE | 2024-08-09 07:55 | P.PNIM_ITS ---
Progress Note: A&P Assessment and Plan (1) Sepsis: Code(s): A41.9 - Sepsis, unspecified organism Status: Acute Assessment and Plan: * Patient initially meeting sepsis criteria with heart rate of 92, respiratory rate of 37, blood pressure ranging 85/46 to 93/48, lactic acidosis 2.8> 1.2 after resuscitation, pneumonia on imaging, white blood cell count 16.2 * Patient was given 2 L of IV fluids while in the ED with improvement in her blood pressure, heart rate, respiratory rate and lactic acid level * Head/neck CTA: bilateral ground-glass appearance indicating pneumonia * BCs prelim result: negative for growth * Started on cefepime and vancomycin (discontinued due to negative cultures) (2) Pneumonia: Qualifiers: Laterality: bilateral Lung location: unspecified part of lung Pneumonia type: due to unspecified organism Qualified Code(s): J18.9 - Pneumonia, unspecified organism Code(s): J18.9 - Pneumonia, unspecified organism Status: Acute Assessment and Plan: * Chest x-ray: stable diffuse lung disease consistent with mild pulmonary edema and/or chronic lung disease, stable small right pleural effusion * Head/neck CTA: right pleural effusion, bilateral lung ground-glass appearance which may be seen with atelectasis versus pneumonia * Patient was recently discharged from the hospital with pneumonia yesterday * Monitor vital signs, I&Os, neuro status and patient is a fall risk * Follow WBC, serum electrolytes, temperature curves and cultures * Oxygen via NC; wean as tolerated. Keep SpO2 greater than 88% * Gentle IV fluid resuscitation (3) Syncope: Code(s): R55 - Syncope and collapse Status: Acute Assessment and Plan: Witnessed episode of syncope at nursing facility * Head CT showed small lacunar infarct at the left lentiform nucleus which appears to be old, no acute intracranial process * Head/neck CTA which showed soft tissue density mass measuring 1 x 1.3 cm in the left orbit superiorly, multiple areas of narrowing in the right cervical carotid artery suggestive of fibromuscular dysplasia. Right thyroid large cystic nodule, enlarged precarinal lymph node, right pleural effusion, bilateral lung ground-glass appearance indicating atelectasis versus pneumonia. * Patient was discharged on Lasix 20 mg b.i.d. however cardiology recommended her restart her home dose of Lasix 20 mg daily upon discharge on last admission. She presented with hypotension. * Patient received 2 L of IV fluids while in the ED with improvement in her hypotension * Echo on 08/05/2024 showed normal LV systolic function with an estimated EF of 65-70%, negative bubble study, moderate TR * Patient had her pacemaker interrogated back in of this year and was functioning properly at that time * EKG shown atrial paced rhythm with a rate of 61, QTC 492, right bundle branch block, left axis deviation * Will obtain orthostatic blood pressures Q shift * Patient follows with Dr. Higuera at [facility] for cardiology * Continue IV fluids at 75 mL/hour for hydration * Lasix currently on hold * ProBNP was 694 (4) History of permanent cardiac pacemaker placement: Code(s): Z95.0 - Presence of cardiac pacemaker Status: Acute Assessment and Plan: * Last interrogated in of this year and was functioning properly at that time * EKG showing atrial paced rhythm with a rate of 61, QTC 492, right bundle branch block, left axis deviation (5) Anemia: Code(s): D64.9 - Anemia, unspecified Status: Acute Assessment and Plan: * Hemoglobin 10.5 * Appears to be chronic * Continue ferrous sulfate (6) Paroxysmal atrial fibrillation: Code(s): I48.0 - Paroxysmal atrial fibrillation Status: Chronic Assessment and Plan: * Continue Coreg and Xarelto (7) Hypertension: Qualifiers: Hypertension type: unspecified Qualified Code(s): I10 - Essential (primary) hypertension Code(s): I10 - Essential (primary) hypertension Status: Chronic Assessment and Plan: * Blood pressure ranging 116/82 to 127/54 * Continue losartan 25 mg daily (8) Anxiety: Code(s): F41.9 - Anxiety disorder, unspecified Status: Acute Assessment and Plan: * Continue BuSpar (9) Thyroid nodule: Code(s): E04.1 - Nontoxic single thyroid nodule Status: Acute Assessment and Plan: * Incidental finding- Right thyroid large cystic nodule seen on head/neck CTA Time Spent With Patient Time: Subjective Date/time seen: 08/09/24 07:55 Interval history: This is an 83-year-old female with a significant past medical history of COPD, diastolic CHF, paroxysmal A Fib on Xarelto, hypertension, permanent pacemaker who presented to the hospital with witnessed syncopal episode at her nursing facility. Patient was recently admitted on 07/31/2024 with shortness of breath, of poor p.o. intake and lethargy. 08/09/2024 Patient is sitting comfortably in bed. She denies any shortness of breath, chest pain, n/v, or abdominal pain. O2 % 98% on RA. 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 Attempted to initiate transfer but [facility] would not accept as she is receiving appropriate care at this facility. Given low BPs and lower extremity edema, will not consider adding additional lasix at this time and will maintain 75mL/hr fluids but will order orthostatic blood pressure and monitor. Review of Systems Review of Systems: All systems reviewed & are unremarkable except as noted in HPI and below Exam Narrative: General: In no acute distress, well nourished Head: atraumatic, no encephalopathy Eyes: PERRLA, sclera clear ENT: moist mucous membranes, nasal passages clear Neck: supple, no JVD, no adenopathy, trachea midline Cardiac: Normal S1 and S2. No murmur, gallops or friction rubs, peripheral pulses intact. Respiratory: Lungs clear to auscultation, no adventitious lung sounds, currently on 1 L nasal cannula Gastrointestinal: soft, non-distended, non-tender, normoactive bowel sounds. : voiding without difficulty. Extremities: moves all extremities well, 1+ pitting edema left greater than right lower extremity Skin: clean, dry, intact. No wounds or lesions. Neuro: Alert and oriented x4, cranial nerves intact, no neuro deficits. Psych: normal mood, normal affect, interactive Objective Data Vital Signs Vital Signs: Vital Signs - 24 hr 08/08/24 10:56 08/08/24 11:16 08/08/24 11:24 Temperature 97.6 F Pulse Rate 69 92 63 Respiratory Rate 22 H 37 H 22 H Blood Pressure 85/46 L 87/45 L Pulse Oximetry 93 95 95 Oxygen Delivery Room Air Oxygen Flow Rate 08/08/24 11:31 08/08/24 12:30 08/08/24 12:45 Temperature Pulse Rate 60 60 60 Respiratory Rate 20 16 17 Blood Pressure 93/48 L 132/57 L 114/53 L Pulse Oximetry 90 100 94 Oxygen Delivery Oxygen Flow Rate 08/08/24 13:30 08/08/24 13:33 08/08/24 13:33 Temperature Pulse Rate 63 60 69 Respiratory Rate 12 Blood Pressure 125/53 L 114/53 L 123/50 L Pulse Oximetry 99 Oxygen Delivery Oxygen Flow Rate 08/08/24 13:33 08/08/24 14:00 08/08/24 14:30 Temperature Pulse Rate 64 69 65 Respiratory Rate 14 16 Blood Pressure 136/57 L 147/69 H 126/62 Pulse Oximetry 100 100 Oxygen Delivery Oxygen Flow Rate 08/08/24 15:01 08/08/24 15:53 08/08/24 16:00 Temperature Pulse Rate 63 62 60 Respiratory Rate 18 18 21 H Blood Pressure 112/56 L 117/80 Pulse Oximetry 96 95 94 Oxygen Delivery Oxygen Flow Rate 08/08/24 16:01 08/08/24 16:31 08/08/24 16:46 Temperature Pulse Rate 60 60 60 Respiratory Rate 20 14 22 H Blood Pressure 125/59 L 105/53 L 127/56 L Pulse Oximetry 95 95 94 Oxygen Delivery Oxygen Flow Rate 08/08/24 17:06 08/08/24 17:16 08/08/24 17:31 Temperature Pulse Rate 64 60 60 Respiratory Rate 21 H 20 18 Blood Pressure 116/82 127/54 L 127/54 L Pulse Oximetry 94 95 98 Oxygen Delivery Oxygen Flow Rate 08/08/24 20:00 08/08/24 20:00 08/08/24 22:01 Temperature Pulse Rate 60 80 Respiratory Rate Blood Pressure Pulse Oximetry 98 Oxygen Delivery Nasal Cannula Oxygen Flow Rate 1 08/08/24 22:01 08/09/24 00:00 08/09/24 00:00 Temperature 97.8 F Pulse Rate 80 60 60 Respiratory Rate 18 Blood Pressure 91/42 L Pulse Oximetry 90 Oxygen Delivery Oxygen Flow Rate 08/09/24 04:00 08/09/24 04:00 Temperature 98.0 F Pulse Rate 60 60 Respiratory Rate 18 Blood Pressure 109/47 L Pulse Oximetry 95 Oxygen Delivery Oxygen Flow Rate Intake/Output Intake/Output: Intake & Output 08/06/24 08/07/24 08/08/24 08/09/24 23:59 23:59 23:59 23:59 Intake Total 2049 999 Balance 2049 999 Meds/Results Medications: Active Medications Generic Name Dose Route Start Last Admin Trade Name Freq PRN Reason Stop Dose Admin Acetaminophen 650 mg 08/08/24 21:01 Acetaminophen 325 Mg Tablet PO Q4H PRN Mild Pain (1-3) or Fever Buspirone HCl 20 mg 08/09/24 08:30 Buspirone Hcl 10 Mg Tablet PO 0830,1330,1930 [facility] Carvedilol 12.5 mg 08/08/24 21:15 08/08/24 22:01 Carvedilol 12.5 Mg Tablet PO 12.5 mg Q12HR MARTIN Administration Cyclosporine 1 drop 08/08/24 21:10 08/08/24 23:07 Cyclosporine 0.4 Ml Ophth Solution EACH EYE 1 drop Q12HR MARTIN Administration Ferrous Sulfate 325 mg 08/09/24 09:00 Ferrous Sulfate [address] PO BID [facility] Flecainide Acetate 150 mg 08/08/24 21:15 08/08/24 22:01 Flecainide Acetate 50 Mg Tablet PO 150 mg Q12HR MARTIN Administration Furosemide 20 mg 08/09/24 09:00 Furosemide 20 Mg Tablet PO BID [facility] Guaifenesin 600 mg 08/08/24 21:15 08/08/24 22:02 Guaifenesin 12 Hr 600 Mg Tabcr PO 600 mg Q12HR MARTIN Administration Hydralazine HCl 50 mg 08/08/24 21:10 Hydralazine Hcl 50 Mg Tablet PO DAILY PRN Hypertension Lactated Ringer's 1,000 mls @ 75 mls/hr 08/08/24 16:00 08/09/24 07:00 Lr - Lactated Ringers Iv IV CONT 75 mls/hr .[id number] MARTIN Administration Cefepime HCl 2 gm in 50 mls @ 100 mls/hr 08/09/24 04:00 08/09/24 03:29 Maxipime 2 Gm/Ns 50 Ml IVPB 100 mls/hr Q12H MARTIN Administration Vancomycin HCl 1,250 mg in 250 mls @ 166.667 mls/hr 08/09/24 17:00 Vancomycin 1,250 Mg/Ns 250 Ml IVPB Q24H [facility] Losartan Potassium 25 mg 08/09/24 09:00 Losartan Potassium 25 Mg Tablet PO DAILY [facility] Ondansetron HCl 4 mg 08/08/24 21:01 Ondansetron Inj 4 Mg/2 Ml Vial IV PUSH Q6H PRN Nausea And Vomiting Rivaroxaban 15 mg 08/09/24 17:00 Rivaroxaban 15 Mg Tablet PO DAILY@1700 [facility] Senna/Docusate Sodium 1 tab 08/09/24 09:00 Senna/Docusate Sodium Tablet PO DAILY [facility] Vitamin D 1,000 units 08/09/24 09:00 Cholecalciferol 1,000 Units Tablet PO DAILY [facility] Radiology Results: ITS Impressions Head CT 08/08/24 11:58 IMPRESSION: 1. Small lacunar infarct at the left lentiform nucleus. No acute intracranial process. Chest X-Ray 08/08/24 12:22 IMPRESSION: 1. Stable diffuse lung disease, consistent with mild pulmonary edema and/or chronic lung disease. 2. Stable small right pleural effusion. Head/Neck CTA 08/08/24 21:48 IMPRESSION: No definite abnormality seen. Soft tissue density mass measuring 1 x 1.3 cm in the left orbit superiorly. Further evaluation advised. CTA brain carotid Ordering provider: Meera Guzman APRN History: . Syncope . Comparison: None. Technique: CT angiogram neck was performed following timed intravenous injection of contrast. Thin slice axial images and reformatted coronal images were obtained. Three dimensional reformatted images of the neck were also obtained using a [employer] workstation. Automated exposure control and iterative reconstruction technique were employed. The dose-length product was 1232.49 mGy- cm. FINDINGS: RIGHT CERVICAL CAROTID ARTERY: Multiple areas of narrowing suggestive of fibromuscular dysplasia (FMD). LEFT CERVICAL CAROTID ARTERY: FMD is noted. VISUALIZED BILATERAL INTRACRANIAL CAROTID ARTERIES: Mild atheromatous disease. VERTEBRAL BASILAR SYSTEM: Normal caliber and contour VISUALIZED AORTIC ARCH AND BRANCHING VESSELS: Normal caliber and contour. No significant atheromatous disease. SOFT TISSUES: Large right thyroid cystic mass. Ultrasound evaluation advised. precarinal enlarged lymph node is seen measuring 1.6 cm. Right pleural effusion fibrotic changes seen in the apical areas. Bilateral lung groundglass appearance suggestive of infection versus atelectasis versus edema. CERVICAL SPINE: Age appropriate degenerative changes. IMPRESSION: FMD is seen in both internal carotid arteries. Right thyroid large cystic nodule. Ultrasound evaluation advised. Enlarged precarinal lymph node. Right pleural effusion. Bilateral lung groundglass appearance is seen which may indicate atelectasis versus pneumonia. Clinical correlation advised. Labs Labs: Laboratory Results - last 24 hr 08/08/24 08/08/24 08/08/24 11:29 11:48 12:30 WBC 16.2 H RBC 3.38 L Hgb 10.5 L Hct 33.2 L MCV 98.2 MCH 31.1 MCHC 31.6 L RDW 15.9 H Plt Count 309 MPV 8.7 Immature Gran % (Auto) 0.7 H Neut % (Auto) 85.1 H Lymph % (Auto) 6.5 L [place] % (Auto) 7.3 Eos % (Auto) 0.2 Baso % (Auto) 0.2 Lymph # (Auto) 1.06 [place] # (Auto) 1.2 H Eos # (Auto) 0.0 Baso # (Auto) 0.0 Abs Immat Gran (auto) 0.12 H Absolute Neuts (auto) 13.8 H Absolute Nucleated RBC 0.000 Nucleated RBC % 0.0 PT 26.2 H INR 2.3 APTT 38.8 H Sodium 135 L Potassium 3.7 Chloride 95 L Carbon Dioxide 31 H Anion Gap 9 BUN 20 H Creatinine 0.90 Estim Creat Clear Calc 39 Estimated GFR 60 Glucose 188 H Lactic Acid Calcium 8.5 Magnesium Total Bilirubin 0.6 AST 33 ALT 107 H Alkaline Phosphatase 107 Troponin I < 0.012 NT-Pro-B Natriuret Pep Total Protein Albumin TSH Urine Color Urine Appearance Urine pH Ur Specific [place] Urine Protein Urine Glucose (UA) Urine Ketones Ur Blood (Man) Urine Nitrate Urine Bilirubin Urine Urobilinogen Leukocyte Esterase Rfl Urine RBC Urine WBC Ur Squamous Epith Cells Urine Bacteria Urine Casts Nasal MRSA (PCR) Influenza A (RT-PCR) Negative Influenza B (RT-PCR) Negative RSV (RT-PCR) Negative SARS-CoV-2 RNA (RT-PCR) Negative 08/08/24 08/08/24 08/08/24 12:30 14:11 15:41 WBC RBC Hgb Hct MCV MCH MCHC RDW Plt Count MPV Immature Gran % (Auto) Neut % (Auto) Lymph % (Auto) [place] % (Auto) Eos % (Auto) Baso % (Auto) Lymph # (Auto) [place] # (Auto) Eos # (Auto) Baso # (Auto) Abs Immat Gran (auto) Absolute Neuts (auto) Absolute Nucleated RBC Nucleated RBC % PT INR APTT Sodium Potassium Chloride Carbon Dioxide Anion Gap BUN Creatinine Estim Creat Clear Calc Estimated GFR Glucose Lactic Acid 2.8 H Calcium Magnesium Total Bilirubin AST ALT Alkaline Phosphatase Troponin I < 0.012 < 0.012 NT-Pro-B Natriuret Pep 694 H Total Protein 6.0 L Albumin 3.2 L TSH Urine Color Yellow Urine Appearance Clear Urine pH 7.5 Ur Specific [place] 1.006 Urine Protein Negative Urine Glucose (UA) Negative Urine Ketones Negative Ur Blood (Man) 1+ H Urine Nitrate Negative Urine Bilirubin Negative Urine Urobilinogen 0.2 Leukocyte Esterase Rfl Trace H Urine RBC 3-5 H Urine WBC 0-5 Ur Squamous Epith Cells None seen Urine Bacteria None seen Urine Casts 0-2 Nasal MRSA (PCR) Influenza A (RT-PCR) Influenza B (RT-PCR) RSV (RT-PCR) SARS-CoV-2 RNA (RT-PCR) 08/08/24 08/08/24 08/08/24 16:07 16:28 18:27 WBC RBC Hgb Hct MCV MCH MCHC RDW Plt Count MPV Immature Gran % (Auto) Neut % (Auto) Lymph % (Auto) [place] % (Auto) Eos % (Auto) Baso % (Auto) Lymph # (Auto) [place] # (Auto) Eos # (Auto) Baso # (Auto) Abs Immat Gran (auto) Absolute Neuts (auto) Absolute Nucleated RBC Nucleated RBC % PT INR APTT Sodium Potassium Chloride Carbon Dioxide Anion Gap BUN Creatinine Estim Creat Clear Calc Estimated GFR Glucose Lactic Acid 1.2 Calcium Magnesium Total Bilirubin AST ALT Alkaline Phosphatase Troponin I < 0.012 NT-Pro-B Natriuret Pep Total Protein Albumin TSH Urine Color Urine Appearance Urine pH Ur Specific [place] Urine Protein Urine Glucose (UA) Urine Ketones Ur Blood (Man) Urine Nitrate Urine Bilirubin Urine Urobilinogen Leukocyte Esterase Rfl Urine RBC Urine WBC Ur Squamous Epith Cells Urine Bacteria Urine Casts Nasal MRSA (PCR) Not detected Influenza A (RT-PCR) Influenza B (RT-PCR) RSV (RT-PCR) SARS-CoV-2 RNA (RT-PCR) 08/09/24 04:32 WBC 12.8 H RBC 2.75 L Hgb 8.4 L Hct 27.2 L MCV 98.9 MCH 30.5 MCHC 30.9 L RDW 16.0 H Plt Count 206 MPV 8.5 Immature Gran % (Auto) 0.5 Neut % (Auto) 77.9 H Lymph % (Auto) 13.3 L [place] % (Auto) 7.7 Eos % (Auto) 0.3 Baso % (Auto) 0.3 Lymph # (Auto) 1.70 [place] # (Auto) 1.0 H Eos # (Auto) 0.0 Baso # (Auto) 0.0 Abs Immat Gran (auto) 0.07 H Absolute Neuts (auto) 10.0 H Absolute Nucleated RBC 0.000 Nucleated RBC % 0.0 PT INR APTT Sodium 137 Potassium 4.1 Chloride 100 Carbon Dioxide 32 H Anion Gap 5 BUN 15 D Creatinine 0.84 Estim Creat Clear Calc 42 Estimated GFR > 60 Glucose 92 Lactic Acid Calcium 8.2 L Magnesium 1.9 Total Bilirubin 0.7 AST 26 ALT 81 H Alkaline Phosphatase 87 Troponin I NT-Pro-B Natriuret Pep Total Protein 5.0 L Albumin 2.5 L TSH 2.910 Urine Color Urine Appearance Urine pH Ur Specific [place] Urine Protein Urine Glucose (UA) Urine Ketones Ur Blood (Man) Urine Nitrate Urine Bilirubin Urine Urobilinogen Leukocyte Esterase Rfl Urine RBC Urine WBC Ur Squamous Epith Cells Urine Bacteria Urine Casts Nasal MRSA (PCR) Influenza A (RT-PCR) Influenza B (RT-PCR) RSV (RT-PCR) SARS-CoV-2 RNA (RT-PCR) Quality VTE Prophylaxis VTE prophylaxis: pharmacologic ordered
[2024-08-09] MEDS: SENNA/DOCUSATE SODIUM TABLET 1 TAB PO (08:59)
[2024-08-09] MEDS: guaiFENesin 12 HR 600 MG TABCR PO ×2 (08:59→20:17)
[2024-08-09] MEDS: busPIRone HCL 10 MG TABLET 20 MG PO ×3 (08:59→20:23)
[2024-08-09] MEDS: CHOLECALCIFEROL 1,000 UNITS TABLET 1000 UNITS PO (08:59)
[2024-08-09] MEDS: FERROUS SULFATE 325 MG TABLET DR PO ×2 (08:59→17:12)
[2024-08-09] MEDS: cycloSPORINE 0.4 ML OPHTH SOLUTION 1 DROP EACH EYE ×2 (10:13→20:22)
--- NOTE | 2024-08-09 17:07 | PC.NURSE ---
On 08/09/24, the student, Sheryl Simmons, provided care and completed [facility] documentation on this patient. I have reviewed the student's documentation and agree with the findings.
[2024-08-09] MEDS: RIVAROXABAN 15 MG TABLET PO (17:12)
[2024-08-09] MEDS: carvediloL 12.5 MG TABLET PO (20:17)
[2024-08-09] MEDS: FLECAINIDE ACETATE 50 MG TABLET 150 MG PO (20:18)
[2024-08-10] VITALS (16 sets, daily range): BP systolic 126–176; BP diastolic 53–85; PULSE 60–100; RESP 16–20; TEMP 36.1–37.1; O2SAT 94–100
[2024-08-10] MEDS: CEFEPIME 2 GM/NS 50 ML 2 GM/50 ML BAG IVPB ×2 (04:00→15:11)
[2024-08-10 05:11] LABS: Basophils Percent Auto 0.6 % (0.2-1.2); Eosinophils Absolute Auto 0.1 K/mm3 (0-0.3); Eosinophils Percent Auto 1.2 % (0-4.4); Hematocrit 31.8 % (37.0-47.0); Immature Granulocyte Absolute 0.04 K/mm3 (0.00-0.031); Immature Granulocyte Percent A 0.6 % (0-0.5); Lymphocytes Absolute Auto 1.38 K/mm3 (0.9-3.2); Mean Corpuscular HGB Conc 31.4 g/dl (32-36); Mean Corpuscular Hemoglobin 31.2 pg (26-34); Mean Corpuscular Volume 99.1 fl (80-100); Mean Platelet Volume 8.9 fl (7.4-10.4); Monocytes Absolute Auto 0.8 K/mm3 (0.1-0.6); Monocytes Percent Auto 12.6 % (2.6-8.5); Neutrophils Absolute Auto 4.2 K/mm3 (1.3-6.7); Platelet Count Result 215 k/mm3 (150-375); Red Blood Count 3.21 M/mm3 (4.2-5.4); Red Cell Distribution Width 15.6 % (11.5-14.5); White Blood Count 6.6 K/mm3 (4.5-10.0)
[2024-08-10 05:23] LABS: Alanine Aminotransferase 70 U/L (6-35); Albumin Level 2.8 g/dL (3.5-5.1); Alkaline Phosphatase 94 U/L (38-126); Anion Gap 4 mmol/L (4-12); Aspartate Amino Transferase 24 U/L (14-36); Bilirubin,Total 0.4 mg/dL (0.2-1.3); Blood Urea Nitrogen 14 mg/dL (7-17); Calcium 8.5 mg/dL (8.4-10.2); Carbon Dioxide 32 mmol/L (22-30); Chloride 102 mmol/L (98-107); Estimated CRCL calculation 43 ml/min; Estimated Glomerular Filt Rate > 60; Glucose 91 mg/dL (65-110); Potassium 3.8 mmol/L (3.4-5.0); Sodium 138 mmol/L (137-145)
--- NOTE | 2024-08-10 07:45 | PM.IMPN ---
Progress Note: A&P Assessment and Plan (1) Sepsis: Code(s): A41.9 - Sepsis, unspecified organism Status: Acute Assessment and Plan: Patient initially meeting sepsis criteria with heart rate of 92, respiratory rate of 37, blood pressure ranging 85/46 to 93/48, lactic acidosis 2.8> 1.2 after resuscitation, pneumonia on imaging, white blood cell count 16.2 Patient was given 2 L of IV fluids while in the ED with improvement in her blood pressure, heart rate, respiratory rate and lactic acid level Head/neck CTA: bilateral ground-glass appearance indicating pneumonia BCs prelim result: negative for growth Started on cefepime and vancomycin (discontinued due to negative cultures) (2) Pneumonia: Qualifiers: Laterality: bilateral Lung location: unspecified part of lung Pneumonia type: due to unspecified organism Qualified Code(s): J18.9 - Pneumonia, unspecified organism Code(s): J18.9 - Pneumonia, unspecified organism Status: Acute Assessment and Plan: Chest x-ray: stable diffuse lung disease consistent with mild pulmonary edema and/or chronic lung disease, stable small right pleural effusion Head/neck CTA: right pleural effusion, bilateral lung ground-glass appearance which may be seen with atelectasis versus pneumonia Patient was recently discharged from the hospital with pneumonia yesterday Monitor vital signs, I&Os, neuro status and patient is a fall risk Follow WBC, serum electrolytes, temperature curves and cultures Oxygen via NC; wean as tolerated. Keep SpO2 greater than 88% Gentle IV fluid resuscitation (3) Syncope: Code(s): R55 - Syncope and collapse Status: Acute Assessment and Plan: Witnessed episode of syncope at nursing facility Head CT showed small lacunar infarct at the left lentiform nucleus which appears to be old, no acute intracranial process Head/neck CTA which showed soft tissue density mass measuring 1 x 1.3 cm in the left orbit superiorly, multiple areas of narrowing in the right cervical carotid artery suggestive of fibromuscular dysplasia. Right thyroid large cystic nodule, enlarged precarinal lymph node, right pleural effusion, bilateral lung ground-glass appearance indicating atelectasis versus pneumonia. Patient was discharged on Lasix 20 mg b.i.d. however cardiology recommended her restart her home dose of Lasix 20 mg daily upon discharge on last admission. She presented with hypotension. Patient received 2 L of IV fluids while in the ED with improvement in her hypotension Echo on 08/05/2024 showed normal LV systolic function with an estimated EF of 65-70%, negative bubble study, moderate TR Patient had her pacemaker interrogated back in of this year and was functioning properly at that time EKG shown atrial paced rhythm with a rate of 61, QTC 492, right bundle branch block, left axis deviation Will obtain orthostatic blood pressures Q shift Patient follows with Dr. Higuera at [facility] for cardiology Continue IV fluids at 75 mL/hour for hydration Lasix currently on hold ProBNP was 694 (4) History of permanent cardiac pacemaker placement: Code(s): Z95.0 - Presence of cardiac pacemaker Status: Acute Assessment and Plan: Last interrogated in of this year and was functioning properly at that time EKG showing atrial paced rhythm with a rate of 61, QTC 492, right bundle branch block, left axis deviation (5) Anemia: Code(s): D64.9 - Anemia, unspecified Status: Acute Assessment and Plan: Hemoglobin 10.5 Appears to be chronic Continue ferrous sulfate (6) Paroxysmal atrial fibrillation: Code(s): I48.0 - Paroxysmal atrial fibrillation Status: Chronic Assessment and Plan: Continue Coreg and Xarelto (7) Hypertension: Qualifiers: Hypertension type: unspecified Qualified Code(s): I10 - Essential (primary) hypertension Code(s): I10 - Essential (primary) hypertension Status: Chronic Assessment and Plan: Blood pressure ranging 116/82 to 127/54 Continue losartan 25 mg daily Throughout 08/09, blood pressures were ranging in the 90s/60s, BP meds were held On 08/10, BP back up to 172/68, restarted Hydralazine and Losartan Experienced symptomatic hypotension in afternoon of 08/10, will plan to hold Losartan and maintain Hydralazine and reassess tomorrow (8) Anxiety: Code(s): F41.9 - Anxiety disorder, unspecified Status: Acute Assessment and Plan: Continue BuSpar (9) Thyroid nodule: Code(s): E04.1 - Nontoxic single thyroid nodule Status: Acute Assessment and Plan: Incidental finding- Right thyroid large cystic nodule seen on head/neck CTA Time Spent With Patient Time: 15-25 Subjective Date/time seen: 08/10/24 07:45 Interval history: This is an 83-year-old female with a significant past medical history of COPD, diastolic CHF, paroxysmal A Fib on Xarelto, hypertension, permanent pacemaker who presented to the hospital with witnessed syncopal episode at her nursing facility. Patient was recently admitted on 07/31/2024 with shortness of breath, of poor p.o. intake and lethargy. 08/10/2024 Patient is sitting comfortably. She denies any chest pain, shortness of breath, n/v, or abdominal pain. Orthostatics were ordered and were unremarkable. She did experience some symptomatic hypotension this after when sitting in a chair. She likely needs adjustment of her at home BP medications. Will plan to hold Losartan tomorrow morning, reassess, and discharge with close follow-up with her PCP Review of Systems Review of Systems: All systems reviewed & are unremarkable except as noted in HPI and below Exam Narrative: General: In no acute distress, well nourished Head: atraumatic, no encephalopathy Eyes: PERRLA, sclera clear ENT: moist mucous membranes, nasal passages clear Neck: supple, no JVD, no adenopathy, trachea midline Cardiac: Normal S1 and S2. No murmur, gallops or friction rubs, peripheral pulses intact. Respiratory: Lungs clear to auscultation, no adventitious lung sounds, currently on 1 L nasal cannula Gastrointestinal: soft, non-distended, non-tender, normoactive bowel sounds. : voiding without difficulty. Extremities: moves all extremities well, no edema Skin: clean, dry, intact. No wounds or lesions. Neuro: Alert and oriented x4, cranial nerves intact, no neuro deficits. Psych: normal mood, normal affect, interactive Objective Data Vital Signs Vital Signs: Vital Signs - 24 hr 08/09/24 08:00 08/09/24 08:55 08/09/24 08:56 Temperature Pulse Rate 63 61 60 Respiratory Rate Blood Pressure 87/37 L 88/36 L Pulse Oximetry 99 Oxygen Delivery Oxygen Flow Rate Fraction of Inspired Oxygen 08/09/24 09:05 08/09/24 09:06 08/09/24 10:50 Temperature Pulse Rate 60 60 Respiratory Rate Blood Pressure Pulse Oximetry 99 Oxygen Delivery Nasal Cannula Oxygen Flow Rate 1 Fraction of Inspired Oxygen 24 08/09/24 11:20 08/09/24 12:00 08/09/24 13:13 Temperature 98.3 F Pulse Rate 60 80 Respiratory Rate 16 Blood Pressure 92/48 L 87/36 L Pulse Oximetry 98 Oxygen Delivery Oxygen Flow Rate Fraction of Inspired Oxygen 08/09/24 13:15 08/09/24 13:17 08/09/24 15:10 Temperature 97.3 F L Pulse Rate 68 Respiratory Rate 18 Blood Pressure 99/47 L 95/46 L 116/48 L Pulse Oximetry 100 Oxygen Delivery Oxygen Flow Rate Fraction of Inspired Oxygen 08/09/24 16:00 08/09/24 20:00 08/09/24 20:00 Temperature Pulse Rate 60 65 Respiratory Rate Blood Pressure Pulse Oximetry 100 Oxygen Delivery Nasal Cannula Oxygen Flow Rate 1 Fraction of Inspired Oxygen 08/09/24 20:17 08/09/24 20:18 08/09/24 20:37 Temperature 97.8 F Pulse Rate 69 69 65 Respiratory Rate 20 Blood Pressure 102/55 L Pulse Oximetry 100 Oxygen Delivery Oxygen Flow Rate Fraction of Inspired Oxygen 08/10/24 00:00 08/10/24 00:30 08/10/24 00:30 Temperature 97 F L Pulse Rate 60 60 60 Respiratory Rate 20 Blood Pressure 147/64 H 147/64 H Pulse Oximetry 100 Oxygen Delivery Oxygen Flow Rate Fraction of Inspired Oxygen 08/10/24 00:33 08/10/24 00:35 08/10/24 04:00 Temperature 97 F L Pulse Rate 67 69 100 Respiratory Rate 20 Blood Pressure 146/68 H 153/63 H 144/61 H Pulse Oximetry 100 Oxygen Delivery Oxygen Flow Rate Fraction of Inspired Oxygen 08/10/24 04:00 Temperature Pulse Rate 74 Respiratory Rate Blood Pressure Pulse Oximetry Oxygen Delivery Oxygen Flow Rate Fraction of Inspired Oxygen Intake/Output Intake/Output: Intake & Output 08/07/24 08/08/24 08/09/24 08/10/24 23:59 23:59 23:59 23:59 Intake Total 2049 3060 300 Output Total 850 600 Balance 2049 2210 -300 Meds/Results Medications: Active Medications Generic Name Dose Route Start Last Admin Trade Name Freq PRN Reason Stop Dose Admin Acetaminophen 650 mg 08/08/24 21:01 Acetaminophen 325 Mg Tablet PO Q4H PRN Mild Pain (1-3) or Fever Buspirone HCl 20 mg 08/09/24 08:30 08/09/24 20:23 Buspirone Hcl 10 Mg Tablet PO 20 mg 0830,1330,1930 MARTIN Administration Carvedilol 12.5 mg 08/08/24 21:15 08/09/24 20:17 Carvedilol 12.5 Mg Tablet PO 12.5 mg Q12HR MARTIN Administration Cyclosporine 1 drop 08/08/24 21:10 08/09/24 20:22 Cyclosporine 0.4 Ml Ophth Solution EACH EYE 1 drop Q12HR MARTIN Administration Ferrous Sulfate 325 mg 08/09/24 09:00 08/09/24 17:12 Ferrous Sulfate [address] PO 325 mg BID MARTIN Administration Flecainide Acetate 150 mg 08/08/24 21:15 08/09/24 20:18 Flecainide Acetate 50 Mg Tablet PO 150 mg Q12HR MARTIN Administration Furosemide 20 mg 08/09/24 09:00 Furosemide 20 Mg Tablet PO BID [facility] Guaifenesin 600 mg 08/08/24 21:15 08/09/24 20:17 Guaifenesin 12 Hr 600 Mg Tabcr PO 600 mg Q12HR MARTIN Administration Hydralazine HCl 50 mg 08/08/24 21:10 Hydralazine Hcl 50 Mg Tablet PO DAILY PRN Hypertension Lactated Ringer's 1,000 mls @ 75 mls/hr 08/08/24 16:00 08/09/24 20:28 Lr - Lactated Ringers Iv IV CONT 75 mls/hr .[id number] MARTIN Administration Cefepime HCl 2 gm in 50 mls @ 100 mls/hr 08/09/24 04:00 08/10/24 04:30 Maxipime 2 Gm/Ns 50 Ml IVPB Infused Q12H MARTIN Infusion Losartan Potassium 25 mg 08/09/24 09:00 08/09/24 09:05 Losartan Potassium 25 Mg Tablet PO Not Given DAILY [facility] Ondansetron HCl 4 mg 08/08/24 21:01 Ondansetron Inj 4 Mg/2 Ml Vial IV PUSH Q6H PRN Nausea And Vomiting Rivaroxaban 15 mg 08/09/24 17:00 08/09/24 17:12 Rivaroxaban 15 Mg Tablet PO 15 mg DAILY@1700 [facility] Administration Senna/Docusate Sodium 1 tab 08/09/24 09:00 08/09/24 08:59 Senna/Docusate Sodium Tablet PO 1 tab DAILY MARTIN Administration Vitamin D 1,000 units 08/09/24 09:00 08/09/24 08:59 Cholecalciferol 1,000 Units Tablet PO 1,000 units DAILY MARTIN Administration Radiology Results: ITS Impressions Head CT 08/08/24 11:58 IMPRESSION: 1. Small lacunar infarct at the left lentiform nucleus. No acute intracranial process. Chest X-Ray 08/08/24 12:22 IMPRESSION: 1. Stable diffuse lung disease, consistent with mild pulmonary edema and/or chronic lung disease. 2. Stable small right pleural effusion. Head/Neck CTA 08/08/24 21:48 IMPRESSION: No definite abnormality seen. Soft tissue density mass measuring 1 x 1.3 cm in the left orbit superiorly. Further evaluation advised. CTA brain carotid Ordering provider: Meera Guzman APRN History: . Syncope . Comparison: None. Technique: CT angiogram neck was performed following timed intravenous injection of contrast. Thin slice axial images and reformatted coronal images were obtained. Three dimensional reformatted images of the neck were also obtained using a [employer] workstation. Automated exposure control and iterative reconstruction technique were employed. The dose-length product was 1232.49 mGy-cm. FINDINGS: RIGHT CERVICAL CAROTID ARTERY: Multiple areas of narrowing suggestive of fibromuscular dysplasia (FMD). LEFT CERVICAL CAROTID ARTERY: FMD is noted. VISUALIZED BILATERAL INTRACRANIAL CAROTID ARTERIES: Mild atheromatous disease. VERTEBRAL BASILAR SYSTEM: Normal caliber and contour VISUALIZED AORTIC ARCH AND BRANCHING VESSELS: Normal caliber and contour. No significant atheromatous disease. SOFT TISSUES: Large right thyroid cystic mass. Ultrasound evaluation advised. precarinal enlarged lymph node is seen measuring 1.6 cm. Right pleural effusion fibrotic changes seen in the apical areas. Bilateral lung groundglass appearance suggestive of infection versus atelectasis versus edema. CERVICAL SPINE: Age appropriate degenerative changes. IMPRESSION: FMD is seen in both internal carotid arteries. Right thyroid large cystic nodule. Ultrasound evaluation advised. Enlarged precarinal lymph node. Right pleural effusion. Bilateral lung groundglass appearance is seen which may indicate atelectasis versus pneumonia. Clinical correlation advised. Labs Labs: Laboratory Results - last 24 hr 08/10/24 04:51 WBC 6.6 RBC 3.21 L Hgb 10.0 L Hct 31.8 L MCV 99.1 MCH 31.2 MCHC 31.4 L RDW 15.6 H Plt Count 215 MPV 8.9 Immature Gran % (Auto) 0.6 H Neut % (Auto) 64.0 Lymph % (Auto) 21.0 [place] % (Auto) 12.6 H Eos % (Auto) 1.2 Baso % (Auto) 0.6 Lymph # (Auto) 1.38 [place] # (Auto) 0.8 H Eos # (Auto) 0.1 Baso # (Auto) 0.0 Abs Immat Gran (auto) 0.04 H Absolute Neuts (auto) 4.2 Absolute Nucleated RBC 0.000 Nucleated RBC % 0.0 Sodium 138 Potassium 3.8 Chloride 102 Carbon Dioxide 32 H Anion Gap 4 BUN 14 Creatinine 0.80 Estim Creat Clear Calc 43 Estimated GFR > 60 Glucose 91 Calcium 8.5 Total Bilirubin 0.4 AST 24 ALT 70 H Alkaline Phosphatase 94 Total Protein 6.0 L Albumin 2.8 L Quality VTE Prophylaxis VTE prophylaxis: pharmacologic ordered
[2024-08-10] MEDS: FLECAINIDE ACETATE 50 MG TABLET 150 MG PO ×2 (09:08→20:06)
[2024-08-10] MEDS: FERROUS SULFATE 325 MG TABLET DR PO ×2 (09:08→16:05)
[2024-08-10] MEDS: SENNA/DOCUSATE SODIUM TABLET 1 TAB PO (09:08)
[2024-08-10] MEDS: guaiFENesin 12 HR 600 MG TABCR PO ×2 (09:09→20:06)
[2024-08-10] MEDS: CHOLECALCIFEROL 1,000 UNITS TABLET 1000 UNITS PO (09:09)
[2024-08-10] MEDS: LOSARTAN POTASSIUM 25 MG TABLET PO (09:09)
[2024-08-10] MEDS: carvediloL 12.5 MG TABLET PO ×2 (09:09→20:06)
[2024-08-10] MEDS: busPIRone HCL 10 MG TABLET 20 MG PO ×3 (09:12→20:07)
[2024-08-10] MEDS: cycloSPORINE 0.4 ML OPHTH SOLUTION 1 DROP EACH EYE ×2 (09:15→20:07)
[2024-08-10] MEDS: ACETAMINOPHEN 325 MG TABLET 650 MG PO (09:53)
[2024-08-10] MEDS: LACTATED RINGERS 1,000 ML 75 ML IV CONT (09:54)
[2024-08-10] MEDS: RIVAROXABAN 15 MG TABLET PO (16:05)
[2024-08-11] VITALS: BP 154/60; PULSE 60; PULSE 69; RESP 16; TEMP 36.6; O2SAT 96
[2024-08-11 04:00] VITALS: BP 146/59; PULSE 18; PULSE 61; RESP 61; TEMP 37; O2SAT 93
[2024-08-11] MEDS: ACETAMINOPHEN 325 MG TABLET 650 MG PO (04:05)
[2024-08-11] MEDS: LACTATED RINGERS 1,000 ML 75 ML IV CONT (04:08)
[2024-08-11] MEDS: CEFEPIME 2 GM/NS 50 ML 2 GM/50 ML BAG IVPB (04:08)
[2024-08-11 05:32] LABS: Basophils Absolute Auto 0.1 K/mm3 (0.0-0.1); Basophils Percent Auto 0.7 % (0.2-1.2); Eosinophils Absolute Auto 0.1 K/mm3 (0-0.3); Eosinophils Percent Auto 1.1 % (0-4.4); Hematocrit 28.7 % (37.0-47.0); Hemoglobin 9.3 g/dL (12.0-15.0); Immature Granulocyte Absolute 0.03 K/mm3 (0.00-0.031); Immature Granulocyte Percent A 0.4 % (0-0.5); Lymphocytes Absolute Auto 1.49 K/mm3 (0.9-3.2); Mean Corpuscular HGB Conc 32.4 g/dl (32-36); Mean Corpuscular Hemoglobin 31.8 pg (26-34); Mean Corpuscular Volume 98.3 fl (80-100); Mean Platelet Volume 8.7 fl (7.4-10.4); Monocytes Absolute Auto 0.8 K/mm3 (0.1-0.6); Monocytes Percent Auto 11.1 % (2.6-8.5); Neutrophils Absolute Auto 4.7 K/mm3 (1.3-6.7); Neutrophils Percent Auto 65.7 % (45.5-73.1); Platelet Count Result 183 k/mm3 (150-375); Red Blood Count 2.92 M/mm3 (4.2-5.4); Red Cell Distribution Width 15.5 % (11.5-14.5); White Blood Count 7.1 K/mm3 (4.5-10.0)
[2024-08-11 05:42] LABS: Alanine Aminotransferase 56 U/L (6-35); Albumin Level 2.8 g/dL (3.5-5.1); Alkaline Phosphatase 90 U/L (38-126); Anion Gap 3 mmol/L (4-12); Aspartate Amino Transferase 22 U/L (14-36); Bilirubin,Total 0.5 mg/dL (0.2-1.3); Blood Urea Nitrogen 13 mg/dL (7-17); Calcium 8.7 mg/dL (8.4-10.2); Carbon Dioxide 32 mmol/L (22-30); Chloride 102 mmol/L (98-107); Estimated CRCL calculation 46 ml/min; Estimated Glomerular Filt Rate > 60; Glucose 94 mg/dL (65-110); Potassium 3.9 mmol/L (3.4-5.0); Sodium 137 mmol/L (137-145)
[2024-08-11 09:04] VITALS: O2SAT 96
--- NOTE | 2024-08-11 09:05 | PM.DS ---
DS: Admitting Diagnosis Discharge Date 08/11/2024 Admitting Diagnosis Syncope DS: Discharge Diagnosis Discharge Diagnosis (1) Sepsis: Code(s): A41.9 - Sepsis, unspecified organism Status: Acute (2) Pneumonia: Qualifiers: Laterality: bilateral Lung location: unspecified part of lung Pneumonia type: due to unspecified organism Qualified Code(s): J18.9 - Pneumonia, unspecified organism Code(s): J18.9 - Pneumonia, unspecified organism Status: Acute (3) Syncope: Code(s): R55 - Syncope and collapse Status: Acute (4) History of permanent cardiac pacemaker placement: Code(s): Z95.0 - Presence of cardiac pacemaker Status: Acute (5) Anemia: Code(s): D64.9 - Anemia, unspecified Status: Acute (6) Paroxysmal atrial fibrillation: Code(s): I48.0 - Paroxysmal atrial fibrillation Status: Chronic (7) Hypertension: Qualifiers: Hypertension type: unspecified Qualified Code(s): I10 - Essential (primary) hypertension Code(s): I10 - Essential (primary) hypertension Status: Chronic (8) Anxiety: Code(s): F41.9 - Anxiety disorder, unspecified Status: Acute (9) Thyroid nodule: Code(s): E04.1 - Nontoxic single thyroid nodule Status: Acute DS: Summary Hospital Course Reason for hospitalization: Syncope Hospital Course: This is an 83-year-old female with a significant past medical history of COPD, diastolic CHF, paroxysmal A Fib on Xarelto, hypertension, permanent pacemaker who presented to the hospital with witnessed syncopal episode at her nursing facility. Patient was recently admitted on 07/31/2024 with shortness of breath, of poor p.o. intake and lethargy. At that time she was found to have pleural effusions right greater than left, her BNP was 6460 and she was started on IV Lasix 40 mg daily and then transitioned to Lasix 20mg BID.Cardiology was consulted and recommended that she only be started on Lasix 20 mg daily on discharge and did not feel she was in CHF. At discharge she was sent home with Lasix 20mg BID. She states had a normal night the day she was discharged and woke up, met with a friend to discuss her new medications and while they were talking she passed out. Her friend held onto her and called for help. She was brought back to the hospital for further evaluation. On arrival to the ER she was found to be Alert and oriented x3 and hypotensive. She does have a pacemaker and states she had it interrogated back in of this year and it was functioning properly. She currently denies any fever, chills, nausea, vomiting, diarrhea, abdominal pain, chest pain, shortness a breath, lightheadedness, dizziness, blurred vision. Workup in the hospital included head CT which showed old small lacunar infarct at the left lentiform nucleus, no acute intracranial process. Chest x-ray showed stable diffuse lung disease consistent with mild pulmonary edema and/or chronic lung disease, stable small right pleural effusion. Head/neck CTA shown multiple areas of narrowing suggesting fibromuscular dysplasia, right thyroid large cystic nodule, enlarged pericardial lymph node, right pleural effusion, bilateral lung ground-glass appearance indicating atelectasis versus pneumonia. Initial labs showed a white blood cell count of 16.2, hemoglobin 10.5, INR 2.3, sodium 135, chloride 95, bicarb 31, lactic acid 2.8> 1.2, troponin negative x2, ALT 107, proBNP 694. UA was obtained which showed 1+ urine blood, trace leukocyte, 3-5 urine RBC, otherwise negative. MRSA was negative. Respiratory panel was negative for influenza a and B, RSV, COVID. Blood cultures were obtained and pending. EKG shown atrial pacemaker with left axis deviation with a rate of 61, QTC 492. Patient was given 2 L of IV fluids, Zofran, vancomycin, cefepime while in the ED. Pt requested to be transferred to [facility] for continuation of care since her Business Office Coordinator and Massage Coordinator are at [facility]. Attempted to initiate transfer but [facility] would not accept as she is receiving appropriate care at this facility. Given low BPs and lower extremity edema, will not consider adding additional lasix at this time and will maintain 75mL/hr fluids but will order orthostatic blood pressure and monitor. Orthostatics were ordered and were unremarkable. She did experience some symptomatic hypotension this after when sitting in a chair. She likely needs adjustment of her at home BP medications. Will plan to hold Losartan, reassess, and discharge with close follow-up with her PCP. On the AM of 08/11, patient endorsed feeling much better, denying any shortness of breath, dizziness, or chest pain. Dizziness/syncopal episode likely attributed to medication use, as BPs were consistently in the 90s/40s on all of her home medications but were well maintained when medications were held. Vitals stable, labwork unremarkable, and pt on Room air. Instructed to have close followup with her PCP upon discharge. Pt amenable to this plan and ready for discharge. Time Spent with Patient Time attestation: Total time spent providing and/or coordinating discharge services:30 Exam Narrative: General: In no acute distress, well nourished Head: atraumatic, no encephalopathy Eyes: PERRLA, sclera clear ENT: moist mucous membranes, nasal passages clear Neck: supple, no JVD, no adenopathy, trachea midline Cardiac: Normal S1 and S2. No murmur, gallops or friction rubs, peripheral pulses intact. Respiratory: Lungs clear to auscultation, no adventitious lung sounds, currently on RA Gastrointestinal: soft, non-distended, non-tender, normoactive bowel sounds. : voiding without difficulty. Extremities: moves all extremities well, no edema Skin: clean, dry, intact. No wounds or lesions. Neuro: Alert and oriented x4, cranial nerves intact, no neuro deficits. Psych: normal mood, normal affect, interactive DS: Data Data Completed and Pending Labs on day of discharge: Labs from last 24 hours 08/11/24 05:27 WBC 7.1 RBC 2.92 L Hgb 9.3 L Hct 28.7 L MCV 98.3 MCH 31.8 MCHC 32.4 RDW 15.5 H Plt Count 183 MPV 8.7 Immature Gran % (Auto) 0.4 Neut % (Auto) 65.7 Lymph % (Auto) 21.0 [place] % (Auto) 11.1 H Eos % (Auto) 1.1 Baso % (Auto) 0.7 Lymph # (Auto) 1.49 [place] # (Auto) 0.8 H Eos # (Auto) 0.1 Baso # (Auto) 0.1 Abs Immat Gran (auto) 0.03 Absolute Neuts (auto) 4.7 Absolute Nucleated RBC 0.000 Nucleated RBC % 0.0 Sodium 137 Potassium 3.9 Chloride 102 Carbon Dioxide 32 H Anion Gap 3 L BUN 13 Creatinine 0.75 Estim Creat Clear Calc 46 Estimated GFR > 60 Glucose 94 Calcium 8.7 Total Bilirubin 0.5 AST 22 ALT 56 H Alkaline Phosphatase 90 Total Protein 6.0 L Albumin 2.8 L Preliminary micro results at discharge 08/08/24 15:53 Blood Culture - Preliminary Blood 08/08/24 15:41 Blood Culture - Preliminary Blood Discharge Plan Discharge Attending physician on discharge: Ben Gustafson Discharging Clinician: Ben Gustafson Anticipated Discharge Date/Time: 08/11/24 09:03 Patient Disposition: Home, Self-Care Activity: as tolerated Diet: as tolerated Discharge Instructions: Per Care Coordination: Please call [facility] to arrange a new primary care provider [phone]. Take medications as prescribed Continue ALL of your home medications EXCEPT your losartan. Hold this medication until you can see your PCP. Monitor blood pressures Take caution while standing, rising, or moving Change positions slowly taking a break between each position change If you standing feel dizzy sit back down and take a break Encouraged to continue with yearly vaccinations Return to the emergency department if he developed sudden shortness of breath, chest pain, nausea, vomiting, upset stomach or intractable diarrhea Return to the emergency department if you develop fever greater than 101.5 Follow-up with the primary care physician within 1-2 weeks Thank you for choosing [facility] for your healthcare needs Patient Instructions: Antibiotic Form, Rivaroxaban (By mouth) Patient Language: Citizen Of [place] Stand Alone Forms: General Discharge Information Follow-up/Referrals: Mathew Guardado MD [Emergency Provider] - Discharge Medications: Continued cholecalciferol (vitamin D3) 25 mcg (1,000 unit) capsule 1,000 unit PO DAILY carvedilol [Coreg] 25 mg tablet 12.5 mg PO Q12H Rx Instructions: must administer with a meal/food flecainide 150 mg tablet 150 mg PO Q12H Restasis MultiDose 0.05 % drops 1 drp EACH EYE Q12H Xarelto 15 mg tablet 15 mg PO QPM buspirone 10 mg tablet 20 mg PO 0830,1330,1930 furosemide 20 mg Tablet 20 mg PO BID Qty: 14 0RF potassium chloride 10 mEq capsule, extended release 10 meq PO DAILY Qty: 7 0RF hydralazine 50 mg tablet 50 mg PO DAILY PRN (Reason: Hypertension) tamsulosin 0.4 mg Capsule 0.4 mg PO QAM 30 Days Qty: 30 0RF Patient Comments: x30 day supply last filled on 07/08/24 benzonatate 100 mg Capsule 100 mg PO TID PRN (Reason: Cough) Qty: 15 0RF ferrous sulfate 325 mg (65 mg iron) Tablet,Delayed Release (Dr/Ec) 325 mg PO BID Qty: 60 0RF guaifenesin [Mucus Relief ER] 600 mg Tablet Extended Release 12hr 600 mg PO Q12HR Qty: 14 0RF Rx Instructions: OTC sennosides-docusate sodium [Senna with Docusate Sodium] 8.6-50 mg tablet 1 tab-cap PO DAILY Held losartan 25 mg tablet 25 mg PO DAILY Hold Instructions: Resume on 08/17/24. Date of admission: 08/09/24 10:14 Primary Care Provider: PHYSICIAN NOT ON STAFF,NONSTAFF Admitting Provider: Joe Zelaya Attending physician on admission: Ben Gustafson Condition: Stable Quality VTE Prophylaxis VTE prophylaxis: pharmacologic ordered
[2024-08-11] MEDS: SENNA/DOCUSATE SODIUM TABLET 1 TAB PO (09:06)
[2024-08-11] MEDS: CHOLECALCIFEROL 1,000 UNITS TABLET 1000 UNITS PO (09:06)
[2024-08-11] MEDS: guaiFENesin 12 HR 600 MG TABCR PO (09:06)
[2024-08-11 09:07] VITALS: PULSE 66
[2024-08-11] MEDS: FLECAINIDE ACETATE 50 MG TABLET 150 MG PO (09:07)
[2024-08-11] MEDS: FERROUS SULFATE 325 MG TABLET DR PO (09:07)
[2024-08-11 09:09] VITALS: BP 136/49; PULSE 64; RESP 16; TEMP 36.2; O2SAT 97
[2024-08-11 09:10] VITALS: BP 136/49; PULSE 64; PULSE 66; PULSE 76; RESP 16; TEMP 37; O2SAT 96; O2SAT 97
[2024-08-11] MEDS: busPIRone HCL 10 MG TABLET 20 MG PO (09:10)
[2024-08-11] MEDS: carvediloL 12.5 MG TABLET PO (09:10)
== END 2024-08-11 10:45 | disposition home or self-care (01) | DRG 871 ==
LOC: ANHED 12:05 → ANH2MED 17:10
PROVIDERS: Emergency Medicine; Nurse Practitioner Acute Care; Physician Assistant; Admitting Provider General Practice; Emergency Provider Student in an Organized Health Care Education/Training Program; Visit Provider Physician Assistant
DX: A41.9 Sepsis, unspecified organism (principal); J18.9 Pneumonia, unspecified organism; I50.32 Chronic diastolic (congestive) heart failure; I11.0 Hypertensive heart disease with heart failure; I95.9 Hypotension, unspecified; I48.0 Paroxysmal atrial fibrillation; J44.9 Chronic obstructive pulmonary disease, unspecified; E78.5 Hyperlipidemia, unspecified; E04.1 Nontoxic single thyroid nodule; M19.90 Unspecified osteoarthritis, unspecified site; R55 Syncope and collapse; R09.89 Other specified symptoms and signs involving the circulatory and respiratory systems; F41.9 Anxiety disorder, unspecified; Z20.822 Contact with and (suspected) exposure to COVID-19; Z77.22 Contact with and (suspected) exposure to environmental tobacco smoke (acute) (chronic); Z79.01 Long term (current) use of anticoagulants; Z95.0 Presence of cardiac pacemaker; Z86.73 Personal history of transient ischemic attack (TIA), and cerebral infarction without residual deficits
CPT/HCPCS: 36415; 70450; 70496; 70498; 71046; 80053; 81001; 83605; 83735; 83880; 84443; 84484; 85025; 85610; 85730; 87040; 87637; 87641; 93005; 96361; 96365; 96366; 96375; 99285; A9270; G0378; J0692; J2405; J3370; J7030; J7120; Q9967

== ENCOUNTER 2024-10-04 07:58 | Outpatient (CLI) | payer MEDICARE, OTHER, SELFPAY ==
--- OUTSIDE RECORDS SUMMARY | 2024-10-04 08:05 | XMS_ITS | Clinical Summary ---
Author Organization [facility] Address [address] [place] [address] Phone Care Team Providers Care Final Inspector Shuttle Name Role Phone Minh Thornton MD Primary Care Provider [phone] Allergies No known active allergies Medications CALCIUM CARBONATE (CALCIUM 500 ORAL) Take by mouth. Activ e MULTIVITAMINS WITH FLUORIDE (MULTI-VITAMIN ORAL) Take by mouth. Activ e clobetasol (TEMOVATE) 0.05 % Lotion Apply to affected area. Active XIIDRA 5 % Dropperette 8 Active XARELTO 20 mg Tablet 8 Active vit C/E/Zn/marble coper/lut/z ea/bio/saf (RETAINE VISION ORAL) Take by mouth. [...] Encounters Date Type Department Care Team Description 10/01/2024 External Device Data [facility] Provider, Abstract [...] on file Legal Sex Female 3:34 AM [employer] Gender Identity Not on file Sexual Orientation Not on file Occupation Industry Job Start Date Job End Date Not on file Not on file Not on file Not on file Last Filed Vital Signs Vital Sign Reading Time Taken Comments Blood Pressure 122/78 03/19/2024 10:45 AM [employer] Pulse - - Temperature - - Respiratory Rate - - Oxygen Saturation - - Inhaled Oxygen Concentration - - Weight 73 kg (161 lb) 03/19/2024 10:45 AM [employer] Height 167.6 cm (5' 6 ) 03/19/2024 10:45 AM [employer] Body Mass Index 25.99 03/19/2024 10:45 AM [employer] Plan of Treatment Health Maintenance Due Date [...] [employer] Care Teams Final Inspector Shuttle Relationship Specialty Start Date End Date Minh Thornton MD PCP - General Internal Medicine 01/01/15
--- OUTSIDE RECORDS SUMMARY | 2024-10-04 08:05 | XMS_ITS | Clinical Summary ---
Author Organization [facility] Address [address] [place] [address] Care Team Providers Care Campaign Fundraiser Name Role Phone Kristen Graf APRNED[facility] Primary Care Provider Source Comments [facility],non-owned Affiliates and Associated Physician Practices is amultiple site organization consisting of ambulatory clinics and hospital sitesin [place], [place], [place] and [place]. This disclosure is being madepursuant to the Care Everywhere program and may not contain all information available regarding this patient. Last updated 18.[facility] Allergies No known active allergies Medications * This document contains information received from the source organization and may not represent a complete record from that organization. * Be aware that medications may not be up to date on this document. Alwaysverify current medications with the patient. vitamin D3 (CHOLECALCIFEROL ) (25 MCG) 1000 UNIT capsule Take 1 (one) capsule by mouth once daily Active acetaminophen (TYLENOL) 500 MG tablet Take 1 (one) tablet to 2 (two) tablets by mouth every 6 hours as needed for Fever, Pain or Headache Maximum allowable Acetaminophen amount = 4 Grams (4000 mg) / 24 hours. Active ketoconazole (Nizoral) 2 % cream Apply to affected area on the feet twice daily. 30 days supply. 60 g 4 02/10/20 23 Active hydrALAZINE (Apresoline) 50 MG tabletIndication s:Primary hypertension Take 1 (one) tablet by mouth once daily as needed 90 tablet 3 05/05/20 23 Active cycloSPORINE (Restasis) 0.05 % ophthalmic suspension Instill 1 (one) drop into both eyes 2 times daily Active busPIRone (Buspar) 10 MG tabletIndication s:Anxiety Disorder Take 2 (two) tablets by mouth 3 times daily Reasons: Anxiety Disorder 180 tablet 11 01/19/20 24 Active famotidine (Pepcid) 20 MG tabletIndication s:Gastroesophage al reflux disease, unspecified whether esophagitis present Take 1 (one) tablet by mouth every 12 hours 180 tablet 3 01/19/20 24 Active flecainide (Tambocor) 150 MG tabletIndication s:Typical atrial flutter (HCC) Take 1 (one) tablet by mouth 2 times daily 180 tablet 3 03/28/20 24 025 Active albuterol HFA (ProAir HFA) 108 (90 Base) MCG/ACT inhalerIndicatio ns:Shortness of breath Inhale 2 (two) puffs by mouth every 4 hours as needed for Shortness of Breath, Wheezing or Cough 8.5 g 11 04/22/20 24 Active Spacer/Aero-Hold ing Chambers (AeroChamber)Ind ications:Shortne ss of breath Inhale by mouth as directed 1 Each 04/22/20 24 Active carvedilol (Coreg) 12.5 MG tablet Take 1 (one) tablet by mouth 2 times daily with morning and evening meal 180 tablet 3 06/27/19 25 026 Active furosemide (Lasix) 20 MG tablet Take 1 (one) tablet by mouth once daily 90 tablet 4 08/13/19 25 Active Xarelto 15 MG tablet TAKE 1 (ONE) TABLET BY MOUTH DAILY WITH FOOD 90 tablet 3 08/20/19 25 Active ondansetron, disintegrating, (Zofran ODT) 4 MG tabletIndication s:Nausea Take 1 (one) tablet by mouth every 8 hours as needed for Nausea/Vomiting Allow tablet to dissolve on the tongue 180 tablet 09/21/19 25 Active azithromycin (Zithromax) 250 MG tablet 2 tabs po daily on first day, then 1 tab po daily x4 days 6 tablet 09/21/19 25 Active losartan (Cozaar) 25 MG tabletIndication s:Essential hypertension Take 1.5 (one and one-half) tablets by mouth once daily 135 tablet 3 10/01/19 25 026 Active pimecrolimus (Elidel) 1 % creamIndications :Contact dermatitis due to other agent, unspecified contact dermatitis type Apply to affected areas on face twice a day as needed for itch/irritation. 30 days supply. 60 g 2 02/10/20 23 025 Discontinu ed(Tx Complete) triamcinolone acetonide (Kenalog) 0.1 % ointment Apply to affected on the lower extremities twice daily. 30 days supply. 80 g 4 02/10/20 23 025 Discontinu ed(Tx Complete) diclofenac sodium (Voltaren) 1 % gel Apply 4 (four) g to affected area 4 times daily 100 g 11 09/15/19 24 025 Discontinu ed(Tx Complete) ipratropium (Atrovent) 0.03 % nasal spray [place] 2 sprays into each nostril 2 times daily 12/06/19 24 025 Discontinu ed(Tx Complete) mupirocin (Bactroban) 2 % ointment Apply to affected area 2 times daily 11/08/19 24 025 Discontinu ed(Tx Complete) psyllium (Metamucil) 58.6 % powder Take 1 (one) packet by mouth 2 times daily 025 Discontinu ed(Tx Complete) losartan (Cozaar) 25 MG tabletIndication s:Essential hypertension Take 1.5 (one and one-half) tablets by mouth once daily 135 tablet 3 08/24/19 25 025 Discontinu ed(Reorder ) Combivent Respimat 20-100 MCG/ACT inhaler INHALE 1 PUFF EVERY 4 HOURS NEEDED FOR SHORTNESS OF BREATH OR WHEEZING 07/08/19 25 025 Discontinu ed(Tx Complete) cefdinir (Omnicef) 300 MG capsule Take 1 (one) capsule by mouth 2 times daily for 7 days 14 capsule 09/21/19 25 025 Active Problems Patient Care Coordination No te Formatting of this note migh t be different from the original. 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 President & General Manager [employer] [place] - Dr Asaf Ramirez Problem Noted Date [...] Encounters Date Type Department Care Team Description 09/30/2024 Refill [facility] - Cardiology [address] [facility] [address] [place] [address] Mani Green RN MEDICATION REFILL 09/23/2024 Results Follow-Up [facility] - Geriatrics [address] [facility], [place] [address] Kristen Graf, JAYME-GLOVE BRUSHER 09/20/2024 10:10 AM CDT - 09/20/2024 11:59 PM CDT Hospital Encounter [facility] DIAGNOSTIC RAD OP [address] [place] [address] Unknown, Provider Discharge Disposition: Home or Self Care 09/20/2024 10:09 AM CDT Hospital Encounter [facility] LAB OP DRAW STATION [address] [place] [address] Kristen Graf, MID LEVEL PROJECT MANAGER-GLOVE BRUSHER Discharge Disposition: Home or Self Care 09/20/2024 9:00 AM CDT Office Visit [facility] - Geriatrics [address] [place] [address], [place] [address] Kristen Graf APRN-CNP Nausea (Primary Dx); Typical atrial flutter (HCC); Stage 3a chronic kidney disease (HCC); Leukocytosis, unspecified type; History of UTI; Urine frequency; Hyponatremia; Abnormal lung sounds 09/20/2024 Travel 08/28/2024 Telephone [facility] - Pulmonology [address] [place] [address], [place] [address] Jack Milian MD Appointment 08/28/2024 Telephone [facility] - Pulmonology [address] [place] [address], [place] [address] Jack Milian MD 08/23/2024 Refill [facility] - Cardiology [address] [place] [address], [address] [address] Mani Green RN MEDICATION REFILL 08/20/2024 1:10 AM CDT Clinical Support [facility] - Cardiology [address] [place] [address], [address] [address] SSS (sick sinus syndrome) ([facility]) 08/18/2024 [facility]ill [facility] [address] [place] [address], [address] [address] Bharathi Higuera MD Refill Request 08/12/2024 Refill [facility] - Cardiology [address] [place] [address], [address] [address] Mani Green, INDUSTRIAL MAINTENANCE MECHANIC REFILL 08/09/2024 Telephone [facility] - Cardiology [address] [place] [address], [address] [address] Myke Berg Hospitalization 08/09/2024 Travel 07/25/2024 Telephone [facility] - Cardiology [address] [facility] [address] [place] [address] Mani Green RN Nausea 07/22/2024 Orders Only [facility] - Geriatrics [address] [place] [phone] Kristen Graf, MID LEVEL PROJECT MANAGER-PURNIMA Leukocytosis, unspecified type ; Hyponatremia 07/19/2024 9:38 AM [facility] - 07/19/2024 11:59 PM [facility] Hospital Encounter [facility] LAB OP DRAW STATION [address] [place] [address] Kristen Graf, JAYME-PURNIMA Discharge Disposition: Home or Self Care 07/19/2024 9:30 AM [facility] Office Visit [facility] - Pulmonology [address] [place] [address] Jack Milian MD Abnormal CT lung screening (Primary Dx); Immunization counseling 07/19/2024 Travel 07/10/2024 Orders Only [facility] Physician [facility] - Geriatrics [address] [place] [address] Kristen Graf, MID LEVEL PROJECT MANAGER-PURNIMA COVID-19 ; Pneumonia due to COVID-19 virus 07/10/2024 Telephone [facility] Physician [facility] - Cardiology [address] [facility] [place] [id number] [place] [phone] Mani Green, RAYMOND Question from Last 3 Months Immunizations Immunization Administration Dates Next Due Covid Pfizer primary [...] Recorded Patient Health Questionnaire-2 Score 0 07/15/2023 Comments No Sex and Gender Information Value Date Recorded Sex Assigned at Not on file Legal Sex Female 1:51 PM CDT Gender Identity Not on file Sexual Orientation Not on file Last Filed Vital Signs Vital Sign Reading Time Taken Comments Blood Pressure 138/72 09/20/2024 9:27 AM CDT Pulse 75 09/20/2024 9:27 AM CDT Temperature 36.7 C (98.1 F) 03/28/2024 1:41 PM [facility] Respiratory Rate 17 07/19/2024 9:02 AM [facility] Oxygen Saturation 93% 09/20/2024 9:26 AM CDT Inhaled Oxygen Concentration - - Weight 71.2 kg (157 lb) 09/20/2024 9:26 AM CDT Height 167.6 cm (5' 6 ) 07/19/2024 9:02 AM [facility] Body Mass Index 25.34 07/19/2024 9:02 AM [facility] Plan of Treatment Upcoming Encounters Date Type Department Care Team (Late st Contact Info) Description 10/10/2024 10:20 AM CDT Office Visit [facility] - Cardiology [address] [facility], [address] [address] Bharathi Higuera MD [address] [address] 10/18/2024 9:30 AM CDT [facility] [address] [facility], [place] [address] Kristen Graf, MID LEVEL PROJECT MANAGER-GLOVE BRUSHER [address] [phone] 11/19/2024 1:10 AM CDT Clinical Support [facility] [address] [address] 01/24/2025 10:30 AM CDT Office Visit [facility] - Pulmonology [address] [place] [address], [place] [phone] Jack Milian MD [facility] DIV OF PULM/[place] [address] 02/18/2025 1:00 AM CDT Clinical Support [facility] - Cardiology [address] [address] 05/20/2025 1:00 AM [facility] Clinical Support [facility] - Cardiology [address] [place] [address], [address] [phone] 08/19/2025 1:00 AM CDT Clinical Support [facility] - Cardiology [address] [place] [phone] Health Maintenance Due Date Last Done Comments MEDICARE AWV 12 MONTHS 1940 DTAP/TDAP/TD VACCINES (1 - Tdap) 08/30/1959 ZOSTER VACCINE (1 of 2) 1990 Respiratory Syncytial Virus (RSV) Vaccine Pt: or over 60 yrs (1 - 1-dose 75+ series) 08/30/2015 DEPRESSION SCREENING 05/15/2024 07/18/2023, 09/30/2022, 10/15/2021 COVID-19 VACCINE ( season) 2024 01/31/2024, 02/07/2023, 07/01/2022, Additional history exists BONE DENSITY TESTING Completed 06/17/2022, 10/23/19 13 PNEUMOCOCCAL VACCINE 50+ Completed 01/06/2023, 1005/2019 INFLUENZA VACCINE Completed 01/31/2024, , 02/07/2023, Additional [...] last dose Medical Devices Implanted Type Area Knotting Machine Operator Device Identifier Shelf Expiration Date Model / Serial / Lot Lead Cp Nv Pace 52cm Strd Elut Pltn Amada - [id number] Implanted:Qty: 1 on 08/16/2021 by Bharathi Higuera MD at [facility] Right: Ventricle [employer] 04/13/2023 5076-52 / [id number] / Description:RV Lead Lead Cp Nv Pace 45cm Strd Elut Pltn Amada - [id number] Implanted:Qty: 1 on 08/16/2021 by Bharathi Higuera MD at [facility] Right: Atrium [employer] 05/06/2023 5076-45 / [id number] / Description:RA lead Pacemkr Laureles Wirelessly Crd - [id number] Implanted:Qty: 1 on 08/16/2021 by Bharathi Higuera MD at [facility] Right: Chest [employer] 01/09/2023 [id number] / [id number] / Description:ICD Procedures Procedure Name Priority Date/Time Associated Diagnosis Comments URINALYSIS NO MICROSCOPIC NO CULTURE Routine 09/20/2024 11:33 AM CDT Nausea Leukocytosis, unspecified type History of UTI Urine frequency COMPREHENSIVE METABOLIC PANEL Routine 09/20/2024 11:33 AM CDT Typical atrial flutter (HCC) Stage 3a chronic kidney disease (HCC) Nausea Leukocytosis, unspecified type History of UTI Urine frequency Hyponatremia CBC W AUTO DIFFERENTIAL Routine 09/20/2024 11:33 AM CDT Typical atrial flutter (HCC) Stage 3a chronic kidney disease (HCC) Nausea Leukocytosis, unspecified type History of UTI Urine frequency CULTURE URINE Routine 09/20/2024 11:33 AM CDT Nausea Leukocytosis, unspecified type History of UTI Urine frequency XR CHEST 2VW Routine 09/20/2024 10:25 AM CDT Abnormal lung sounds XR ABDOMEN KUB Routine 09/20/2024 10:25 AM CDT Nausea [place] PM/ICD REMOTE TECH SERV Routine 08/31/2024 4:40 PM CDT SSS (sick sinus syndrome) (HCC) AK PM DEVICE INTERROGATE REMOTE Routine 08/31/2024 4:40 PM CDT SSS (sick sinus syndrome) (HCC) CARDIAC PROCEDURE ORDER 08/19/2024 DIFFERENTIAL MANUAL Routine 07/19/2024 9 :46 AM [facility] COVID-19 Pneumonia due to COVID-19 virus CBC W AUTO DIFFERENTIAL Routine 07/19/2024 9:46 AM [facility] COVID-19 Pneumonia due to COVID-19 virus BASIC METABOLIC PANEL (CALCIUM TOTAL) Routine 07/19/2024 9:46 AM [facility] COVID-19 Pneumonia due to COVID-19 virus DEXA BONE DENSITY AXIAL SKELETON Routine 06/17/2022 1:22 PM [facility] Primary osteoarthritis involving multiple joints Osteoporosis, unspecified osteoporosis type, unspecified pathological fracture presence from Last 3 Months or Most Recently Relevant to Health Maintenance Results * (ABNORMAL) URINALYSIS NO MICROSCOPIC NO CULTURE (09/20/2024 11:33 AM CDT) Color UA Yellow Yellow, Straw 09/20/2024 12:14 PM [facility] Clarity UA Turbid(A) Clear 09/20/2024 12:14 PM [facility] Glucose UA Normal Normal 09/20/2024 12:14 PM [facility] Bilirubin UA Negative Negative 09/20/2024 12:14 PM [facility] Ketone UA Negative Negative 09/20/2024 12:14 PM [facility] Specific [place] UA 1.016 1.005 - 1.030 09/20/2024 12:14 PM [facility] Blood UA 2+(A) Negative 09/20/2024 12:14 PM [facility] pH UA 6.0 5.0 - 8.0 pH 09/20/2024 12:14 PM [facility] Protein UA Negative Negative 09/20/2024 12:14 PM [facility] Urobilinogen UA Normal Normal mg/dL 09/20/2024 12:14 PM [facility] Nitrite UA Negative Negative 09/20/2024 12:14 PM [facility] Leukocyte UA 500 NAKUL/uL(A) Negative 09/20/2024 12:14 PM [facility] Urine URINE SPECIMEN OBTAINED BY CLEAN CATCH PROCEDURE / Unknown Collection / Unknown 09/20/2024 11:33 AM CDT 09/20/2024 12:00 PM CDT Narrative [facility] - 09/20/2024 12:14 PM CDT us Kristen Graf [facility] LAB - URINALYSIS ORDERA BLES Final Result [facility] LABORATORY [facility] [address] [place] [address], [facility] [phone] * (ABNORMAL) CULTURE URINE (09/20/2024 11:33 AM CDT) Pathologist [facility] Culture Urine >100,000 CFU/mL Enterococcus faecalis(A) RICHIE 09/22/2024 11:08 PM CDT [facility] MICROBIOLOGY Urine URINE SPECIMEN OBTAINED BY CLEAN CATCH PROCEDURE / Unknown Collection / Unknown 09/20/2024 11:33 AM CDT 09/20/2024 12:00 PM CDT Narrative Organism Antibiotic Method Susceptibility Enterococcus faecalis Ampicillin RICHIE <=2 ug/mL: Susceptible Enterococcus faecalis Nitrofurantoin RICHIE <=16 ug/mL: Susceptible Enterococcus faecalis Vancomycin RICHIE 1 ug/mL: Susceptible Kristen Graf [facility] LAB - MICROBIOLOGY ORDE RABLES Final Result [facility] MICROBIOLOGY [address] [place] [address], [facility] [phone] * (ABNORMAL) CBC W/ DIFFERENTIAL (09/20/2024 11:33 AM CDT) Only the most recent of2 resultswithin the time period is included. WBC 11.4(H) 4.0 - 10.7 x10E9/L 09/20/2024 12:11 PM [facility]ORATORY [facility] RBC Count 3.72(L) 3.90 - 5.20 x10E12/L 09/20/2024 12:11 PM [facility] LABORATORY [facility] Hemoglobin 11.2(L) 11.9 - 15.8 g/dL 09/20/2024 12:11 PM [facility] LABORATORY [facility] Hematocrit 35.6 34.8 - 46.1 % 09/20/2024 12:11 PM [facility] MCV 95.7 80.0 - 98.0 fL 09/20/2024 12:11 PM [facility]OR[facility]ORY [facility] MCH 30.1 26.7 - 33.6 pg 09/20/2024 12:11 PM [facility] MCHC 31.5(L) 31.7 - 36.3 g/dL 09/20/2024 12:11 PM [facility] RDW-CV 15.5(H) 11.3 - 14.8 % 09/20/2024 12:11 PM [facility] Platelet Count 222 150 - 420 x10E9/L 09/20/2024 12:11 PM [facility] MPV 9.0 7.8 - 11.4 fL 09/20/2024 12:11 PM [facility] Neutrophil % 75.7(H) 41.0 - 74.0 % 09/20/2024 12:11 PM [facility] Lymphocyte % 13.0(L) 17.0 - 47.0 % 09/20/2024 12:11 PM [facility] Monocyte % 9.1 3.0 - 11.0 % 09/20/2024 12:11 PM [facility] Eosinophil % 1.6 0.0 - 7.0 % 09/20/2024 12:11 PM [facility] Basophil % 0.3 0.0 - 1.6 % 09/20/2024 12:11 PM [facility] Immature Granulocytes % 0.3 0.0 - 1.0 % 09/20/2024 12:11 PM [facility] Neutrophil Absolute 8.65(H) 1.60 - 7.50 x10E9/L 09/20/2024 12:11 PM [facility] Lymphocyte Absolute 1.49 1.00 - 4.40 x10E9/L 09/20/2024 12:11 PM [facility] Monocyte Absolute 1.04(H) 0.15 - 1.00 x10E9/L 09/20/2024 12:11 PM [facility] Eosinophil Absolute 0.18 0.00 - 0.60 x10E9/L 09/20/2024 12:11 PM [facility] Basophil Absolute 0.03 0.00 - 0.13 x10E9/L 09/20/2024 12:11 PM [facility] Blood BLOOD SPECIMEN / Unknown Lab Venipuncture / Unknown 09/20/2024 11:33 AM CDT 09/20/2024 12:05 PM T Kristen Graf MID LEVEL PROJECT MANAGER-GLOVE BRUSHER LAB - HEMATOLOGY ORDERA BLES Final Result [facility] [address] [place] [address], [facility] [phone] * (ABNORMAL) COMPREHENSIVE METABOLIC PANEL (09/20/2024 11:33 AM CDT) BUN 16 7 - 26 mg/dL 09/20/2024 12:31 PM [facility] Creatinine 0.91 0.56 - 0.96 mg/dL 09/20/2024 12:31 PM [facility] Sodium 137 136 - 145 mmol/L 09/20/2024 12:31 PM [facility] Potassium 4.5 3.5 - 4.5 mmol/L 09/20/2024 12:31 PM [facility] Chloride 101 98 - 107 mmol/L 09/20/2024 12:31 PM [facility] CO2 29 22 - 29 mmol/L 09/20/2024 12:31 PM [facility] Glucose 131(H) 70 - 99 mg/dL 09/20/2024 12:31 PM [facility] Calcium 9.2 8.4 - 10.2 mg/dL 09/20/2024 12:31 PM [facility] Protein Total 7.1 6.0 - 8.3 g/dL 09/20/2024 12:31 PM [facility] Albumin 3.0(L) 3.4 - 5.0 g/dL 09/20/2024 12:31 PM [facility] Bilirubin Total 0.4 0.2 - 1.2 mg/dL 09/20/2024 12:31 PM [facility] Alkaline Phosphatase 104 40 - 150 U/L 09/20/2024 12:31 PM [facility] ALT 7 5 - 55 U/L 09/20/2024 12:31 PM [facility] AST 12 5 - 34 U/L 09/20/2024 12:31 PM T [facility] Anion Gap 7 6 - 16 09/20/2024 12:31 PM [facility] BUN/Creatinine Ratio 18 7 - 23 09/20/2024 12:31 PM T [facility] Osmolality Calculated 287 275 - 295 mOsm/kg 09/20/2024 12:31 PM [facility] Albumin/Globulin Ratio 0.7(L) 1.1 - 2.3 09/20/2024 12:31 PM T [facility] eGFR by CKD-EPI 62(L) >=90 mL/min/1.7 3 m2 09/20/2024 12:31 PM [facility] Blood BLOOD SPECIMEN / Unknown Lab Venipuncture / Unknown 09/20/2024 11:33 AM CDT 09/20/2024 12:05 PM CDT Kristen Graf MID LEVEL PROJECT MANAGER-GLOVE BRUSHER LAB - CHEMISTRY ORDERAB LES Final Result [facility] [address] [place] [address], [facility] [phone] * XR Abdomen Kub (09/20/2024 10:25 AM CDT) Anatomical Region Laterality Modality Abdomen Digital Radiogra phy 09/20/2024 12:3 3 PM CDT Impressions 09/20/2024 12:33 PM CDT IMPRESSION: Nonobstructive bowel gas pattern. > Interpreting Provider: Gil Baig MD on 09/20/2024 12:33 PM Narrative 09/20/2024 12:33 PM CDT PROCEDURE: XR ABDOMEN KUB DATE/TIME OF EXAM: 09/20/2024 10:26 AM CLINICAL INFORMATION: None relevant/not provided if blank. Indication: R11.0: Nausea Additional History: COMPARISON: None. FINDINGS: There is no dilated bowel to suggest obstruction. Cardiac pacemaker/AICD leads are visible. A calcification in the pelvis is likely a fibroid. There is spinal scoliosis. Procedure Note Gil Baig MD - 09/20/2024 PROCEDURE: XR ABDOMEN KUB DATE/TIME OF EXAM: 09/20/2024 10:26 AM CLINICAL INFORMATION: None relevant/not provided if blank. Indication: R11.0: Nausea Additional History: COMPARISON: None. FINDINGS: There is no dilated bowel to suggest obstruction. Cardiac pacemaker/AICD leads are visible. A calcification in the pelvis is likely a fibroid.There is spinal scoliosis. IMPRESSION: Nonobstructive bowel gas pattern. > Interpreting Provider: Gil Baig MD on 09/20/2024 12:33 PM Kristen Graf MID LEVEL PROJECT MANAGER-GLOVE BRUSHER DIAGNOSTIC IMAGING [facility] Final Result * XR Chest 2Vw (09/20/2024 10:25 AM CDT) Anatomical Region Laterality Modality Chest Digital Radiogra phy 09/21/2024 5:36 PM CDT Narrative 09/22/2024 5:08 AM CDT PROCEDURE: XR CHEST 2VW, DATE/TIME OF EXAM: 09/20/2024 10:26 AM, LOCATION [facility] INDICATION: R09.89: Abnormal lung sounds COMPARISON: CT chest without contrast from 01/11/2024. FINDINGS/IMPRESSION: *Right chest wall cardiac pacemaker device with subclavian approach leads terminating in the right atrium and right ventricle. Mild scarring within the bilateral apices of the lungs. Hyperexpansion of bilateral lungs. Diffuse interstitial thickening may be suggestive of mild pulmonary edema versus atypical pneumonia. There is no focal consolidation, pleural effusion, or pneumothorax. The cardiomediastinal silhouette is normal. Degenerative changes are noted in the thoracic spine and shoulders. The report was drafted by Matty March MD (vice president of instruction) 09/21/2024 5:36 PM. IDanny MD have personally reviewed and interpreted this examination/study. > Interpreting Provider: Danny Kerr MD on 09/22/2024 5:08 AM Procedure Note Danny Kerr MD - 09/22/2024 PROCEDURE: XR CHEST 2VW, DATE/TIME OF EXAM: 09/20/2024 10:26 AM, LOCATION [facility] INDICATION: R09.89: Abnormal lung sounds COMPARISON: CT chest without contrast from 01/11/2024. FINDINGS/IMPRESSION: *Right chest wall cardiac pacemaker device with subclavian approachleads terminating in the right atrium and right ventricle. Mild scarring within the bilateral apices of the lungs. Hyperexpansion of bilateral lungs. Diffuse interstitial thickening may be suggestive of mild pulmonaryedema versus atypical pneumonia. There is no focal consolidation, pleural effusion, or pneumothorax. The cardiomediastinal silhouette is normal. Degenerative changes are noted in the thoracic spine and shoulders. The report was drafted by Matty March MD (vice president of instruction) 09/21/2024 5:36 PM. I, Danny Kerr MD have personally reviewed and interpreted this examination/study. > Interpreting Provider: Danny Kerr MD on 09/22/2024 5:08 AM Kristen Graf MID LEVEL PROJECT MANAGER-GLOVE BRUSHER DIAGNOSTIC IMAGING [facility] Final Result * AK PM DEVICE INTERROGATE REMOTE, AK PM/ICD REMOTE TECH SERV (08/31/2024 4:40 PM CDT) Narrative Bharathi Higuera MD - 08/31/2024 4:40 PM CDT Bharathi Higuera MD 08/31/2024 4:40 PM Dear Salome Aaron I reviewed the remote interrogation of your device. Your device's sensing and capture thresholds are appropriate and stable. Lead impedances for your device: Atrial lead: 342 ohms RV lead: 380 ohms You are currently paced: Atrial: 80.8 % Ventricle: <0.1 % During this most recent monitored period (07/25/2024 to 08/19/2024), you had no sustained arrhythmias. The estimated remaining battery life for your device is 8.1 years. Device function is normal, and no programming changes are required. Please call our offices if you have any further questions. Sincerely, Bharathi Higuera 08/31/2024 us Bharathi Higuera MD PROCEDURE/MINOR SURGICAL ORDERAB LES Final Result * CARDIAC PROCEDURE ORDER (08/19/2024) Narrative 08/19/2024 Ordered by an unspecified provider. us Scanned Document CARDIAC SERVICES ORDERABLES Fin al Result * (ABNORMAL) DIFFERENTIAL MANUAL (07/19/2024 9:46 AM [facility]) Neutrophil % 81(H) 41 - 74 % 07/19/2024 10:57 AM [facility] Lymphocyte % 10(L) 17 - 47 % 07/19/2024 10:57 AM [facility] Monocyte % 7 3 - 11 % 07/19/2024 10:57 AM [facility] Eosinophil % 2 0 - 7 % 07/19/2024 10:57 AM [facility] Neutrophil Absolute 11.50(H) 1.60 - 7.50 x10E9/L 07/19/2024 10:57 AM [facility] Lymphocyte Absolute 1.42 1.00 - 4.40 x10E9/L 07/19/2024 10:57 AM [facility] Monocyte Absolute 0.99 0.15 - 1.00 x10E9/L 07/19/2024 10:57 AM [facility] Eosinophil Absolute 0.28 0.00 - 0.60 x10E9/L 07/19/2024 10:57 AM [facility] RBC Morphology NORMAL 07/19/2024 10:57 AM [facility] Blood BLOOD SPECIMEN / Unknown Lab Venipuncture / Unknown 07/19/2024 9:46 AM [facility] 07/19/2024 10:17 AM [facility] Kristen Graf MID LEVEL PROJECT MANAGER-GLOVE BRUSHER LAB - HEMATOLOGY ORDERA BLES Final Result [facility] [address] [place] [address], [facility] [phone] * (ABNORMAL) BASIC METABOLIC PANEL (CALCIUM TOTAL) (07/19/2024 9:46 AM [facility]) BUN 23 7 - 26 mg/dL 07/19/2024 10:53 AM [facility] Creatinine 0.89 0.56 - 0.96 mg/dL 07/19/2024 10:53 AM [facility] Sodium 140 136 - 145 mmol/L 07/19/2024 10:53 AM [facility] Potassium 3.4(L) 3.5 - 4.5 mmol/L 07/19/2024 10:53 AM [facility] Chloride 105 98 - 107 mmol/L 07/19/2024 10:53 AM [facility] CO2 27 22 - 29 mmol/L 07/19/2024 10:53 AM [facility] Glucose 149(H) 70 - 99 mg/dL 07/19/2024 10:53 AM [facility] Calcium 8.4 8.4 - 10.2 mg/dL 07/19/2024 10:53 AM [facility] Anion Gap 8 6 - 16 07/19/2024 10:53 AM [facility] BUN/Creatinine Ratio 26(H) 7 - 23 07/19/2024 10:53 AM [facility] Osmolality Calculated 296(H) 275 - 295 mOsm/kg 07/19/2024 10:53 AM [facility] eGFR by CKD-EPI 64(L) >=90 mL/min/1.7 3 m2 07/19/2024 10:53 AM [facility] Blood BLOOD SPECIMEN / Unknown Lab Venipuncture / Unknown 07/19/2024 9:46 AM [facility] 07/19/2024 10:17 AM [facility] Kristen Graf MID LEVEL PROJECT MANAGER-GLOVE BRUSHER LAB - CHEMISTRY ORDERAB LES Final Result Performing Organization Address [facility]/State/[facility] Co de Phone Number [facility] [address] [place] [address], [facility] [phone] * BONE DENSITY AXIAL SKELETON(1OR MORE SITES)[id number] (06/17/2022 1:22 PM [facility]) Anatomical Region Laterality Modality Other 06/20/2022 5:28 PM [facility] Narrative 06/20/2022 5:29 PM [facility] PROCEDURE: DEXA BONE DENSITY AXIAL SKELETON, DATE/TIME OF EXAM: 06/17/2022 1:23 PM, LOCATION [facility] 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 [...] DATE/TIME OF EXAM:06/17/2022 1:23 PM, LOCATION [facility] 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 [...] DO on 06/20/2022 5:29 PM Kristen Graf MID LEVEL PROJECT MANAGER-GLOVE BRUSHER DEXA ORDERABLES Final R esult from Last 3 Months or Most Recently Relevant to Health Maintenance Insurance MEDICARE [facility] MEDICARE [employer] OF [employer] [facility] Advance Directives * Full Code (Latest Code Status on File) Date Activated Date Inactivated Comments 07/03/2021 6:20 PM 07/04/2021 5:26 PM Care Teams Campaign Fundraiser Relationship Specialty Start Date End Date Kristen Graf, MID LEVEL PROJECT MANAGER-GLOVE BRUSHER [address] [phone] PCP - General 05/24/21
--- OUTSIDE RECORDS SUMMARY | 2024-10-04 08:05 | XMS_ITS | Encounter Summary ---
Author Organization [facility] Health Address [address] [facility] [address] Care Team Providers Care Waste Elimination Name Role Phone Kristen Graf APRN-HOME HEALTH NURSE Primary Care Provider Reason for Visit * Reason Onset Date Comments Appointment 07/29/2022 Encounter Details Date Type Department Care Team (Late st Contact Info) Description 07/29/2022 Telephone [facility] [address] [place] [address] Dominic Hines MD [address] [place], [place] [id number] Appointment Social History Tobacco Use Types Packs/Day [...] Date Recorded PHQ2 TOTAL SCORE 0 01/28/2022 Comments No Sex and Gender Information Value Date Recorded Sex Assigned at Not on file Legal Sex Female 1:51 PM CDT Gender Identity Not on file Sexual Orientation Not on file documented as of this encounter Functional Status * Is person deaf or have serious hearing difficulty? Answer Date of Assessment Author No 08/16/2021 10:51 AM Flaco Calhoun RN * Is person blind or have serious difficulty seeing? Answer Date of Assessment Author No 08/16/2021 10:51 AM [facility] Flaco Joy RN * Does person have serious difficulty walking/climbing stairs? Answer Date of Assessment Author No 08/16/2021 10:51 AM [facility] Flaco Joy RN * Does person have difficulty dressing/bathing? Answer Date of Assessment Author No 08/16/2021 10:51 AM Flaco Calhoun RN * Does person have difficulty doing errands alone? Answer Date of Assessment Author No 08/16/2021 10:51 AM Flaco Calhoun RN documented as of this encounter Mental Status * Does person have difficulty concentrating/remembering/making decisions? Answer Entry Date Author No 08/16/2021 10:51 AM Flaco Calhoun RN documented in this encounter Miscellaneous Notes * Telephone Encounter - Cyndi Padilla - 07/29/2022 3:11 PM CDT Pt needs to reschedule her 08-11-22 appointment documented in this encounter Plan of Treatment Upcoming Encounters Date Type Department Care Team (Late st Contact Info) Description 10/10/2024 10:20 AM CDT Office Visit [facility] - Cardiology [address] [facility] [place] [place] [address] Bharathi Higuera MD [address] [place] [address] 10/18/2024 9:30 AM CDT Office Visit [facility] - Geriatrics [address] [facility], [place] [address] Kristen Graf, TELETYPE TELEGRAPHER-HOME HEALTH NURSE [address] [address] 11/19/2024 1:10 AM CDT Clinical Support [facility] - Cardiology [address], [address] [address] 01/24/2025 10:30 AM CDT Office Visit [facility] - Pulmonology [address] [facility], [place] [address] Jack Milian MD [address] [facility] 2L DIV OF PULM/[place] [address] 02/18/2025 1:00 AM CDT Clinical Support [facility] - Cardiology [address] [facility], [address] [address] 05/20/2025 1:00 AM PASSENGER ELEVATOR OPERATOR Clinical Support [facility] - Cardiology [address] [facility], [address] [address] 08/19/2025 1:00 AM CDT Clinical Support [facility] - Cardiology [address] [facility], [address] [address] documented as of this encounter Visit Diagnoses Not on filedocumented in this encounter Care Teams Waste Elimination Relationship Specialty Start Date End Date Kristen Graf, TELETYPE TELEGRAPHER-HOME HEALTH NURSE [address] [address] PCP - General 05/24/21 documented as of this encounter
--- OUTSIDE RECORDS SUMMARY | 2024-10-04 08:05 | XMS_ITS | Encounter Summary ---
Author Organization [facility] Health Address [address] [place] [address] Care Team Providers Care Loop Puller Name Role Phone Kristen Graf APRN-[employer] Primary Care Provider Encounter Details Date Type Department Care Team (Late st Contact Info) Description 08/28/2024 Telephone [facility] Pulmonology [address] [facility], [place] [address] Jack Milian MD [address] [place] [address] 2L DIV OF PULM/[place] [address] Social History Tobacco Use Types Packs/Day Years [...] Flaco Calhoun RN * Does person have serious difficulty walking/climbing stairs? Answer Date of Assessment Author No 08/16/2021 10:51 AM Flaco Calhoun RN * Does person have difficulty dressing/bathing? [...] Flaco Calhoun RN documented in this encounter Plan of Treatment Upcoming Encounters Date Type Department Care Team (Late st Contact Info) Description 10/10/2024 10:20 AM CDT Office Visit [facility] Cardiology [address] [address] Bharathi Higuera MD [address] [address] 10/18/2024 9:30 AM CDT Office Visit [facility] - Geriatrics [address] [facility], [place] [phone] Kristen Graf, CASING FLUID TENDER-[employer] [address] [address] 11/19/2024 1:10 AM CDT Clinical Support [facility] Cardiology [address] [address] 01/24/2025 10:30 AM CDT Office Visit [facility] - Pulmonology [address] [facility], [place] [address] Jack Milian MD [address] [facility] 2L DIV OF PULM/CR[place] [address] 02/18/2025 1:00 AM CDT Clinical Support [facility] - Cardiology [address] [facility], [address] [address] 05/20/2025 1:00 AM AIRCRAFT STRESS ANALYST Clinical Support [facility] - Cardiology [address] [facility], [address] [address] 08/19/2025 1:00 AM CDT Clinical Support [facility] - Cardiology [address] [facility], [address] [address] documented as of this encounter Goals Goal [...] on filedocumented in this encounter Care Teams Loop Puller Relationship Specialty Start Date End Date Kristen Graf, CASING FLUID TENDER-[employer] [address] [facility] [address] [place] [address] PCP - General 05/24/21 documented as of this encounter
--- OUTSIDE RECORDS SUMMARY | 2024-10-04 08:05 | XMS_ITS | Encounter Summary ---
Author Organization [facility] Health Address [address] [facility] [place] [address] Care Team Providers Care Director Pharmacology Name Role Phone Minh Thornton MD Primary Care Provider [phone] Kristen Gra[facility] Primary Care Provider Tracie Pritchett MD Primary Care Provider [phone] Kristen Graf APRN-LOADING UNIT OPERATOR POWDER CHARGING Primary Care Provider Encounter Details Date Type Department Care Team (Late st Contact Info) Description 03/10/2020 Telephone [facility] [address] [place] [address] Kristen Graf BLUE SPLIT TRIMMER-LOADING UNIT OPERATOR POWDER CHARGING [address] [phone] Social History Tobacco Use Types Packs/Day Years [...] of Binge Drinking Not on file 02/13 Comments No Sex and Gender Information Value [...] at your convenience. Patient Call Back number: [phone] documented in this encounter Plan of Treatment Upcoming Encounters Date Type Department Care Team (Late st Contact Info) Description 10/10/2024 10:20 AM CDT Office Visit [facility] - Cardiology [address] [address] Bharathi Higuera MD [address] [address] 10/18/2024 9:30 AM CDT Office Visit [facility] - Geriatrics [address] [facility], [place] [address] Kristen Graf, BLUE SPLIT TRIMMER-LOADING UNIT OPERATOR POWDER CHARGING [address] [address] 11/19/2024 1:10 AM CDT Clinical Support [facility] - Cardiology [address] [address] 01/24/2025 10:30 AM CDT Office Visit [facility] - Pulmonology [address] [facility], [place] [address] Jack Milian MD [address] [facility] 2L DIV OF PULM/[place] [address] 02/18/2025 1:00 AM CDT Clinical Support [facility] - Cardiology [address] [facility], [address] [address] 05/20/2025 1:00 AM FABRICATOR SPECIAL ITEMS Clinical Support [facility] - Cardiology [address] [facility], [address] [address] 08/19/2025 1:00 AM CDT Clinical Support [facility] - Cardiology [address] [facility], [address] [phone] documented as of this encounter Visit Diagnoses Not on filedocumented in this encounter Care Teams Director Pharmacology Relationship Specialty Start Date End Date Minh Thornton MD [address] [place] [address] [address] [place] [address] PCP - General 03/02/20 04/26/20 Kristen Graf, BLUE SPLIT TRIMMER-LOADING UNIT OPERATOR POWDER CHARGING [address] [facility] [address] [place] [address] PCP - General 04/27/20 05/19/21 Tracie Pritchett MD [address] [facility] [address] [place] [address] PCP - General Internal Medicine Geriatric Medicine 05/20/21 05/23/21 Kristen Graf, BLUE SPLIT TRIMMER-LOADING UNIT OPERATOR POWDER CHARGING [address] [phone] PCP - General 05/24/21 documented as of this encounter
--- OUTSIDE RECORDS SUMMARY | 2024-10-04 08:05 | XMS_ITS | Encounter Summary ---
Author Organization [facility] Health Address [address] [facility] [place] [address] Care Team Providers Care Ball Mill Operator Name Role Phone Kristen Graf APRNAPPLIANCE TECHNICIAN Primary Care Provider Encounter Details Date Type Department Care Team (Late st Contact Info) Description 09/23/2024 Results Follow-Up [facility] [address] [place] [address] Kristen Graf APRN-CNP [facility] [address] Social History Tobacco Use Types Packs/Day Years [...] [facility] [address] [address] Bharathi Higuera MD [address] [address] 10/18/2024 9:30 AM CDT Office Visit [facility] [address] [facility], [place] [address] Kristen Graf, GEL COATER-APPLIANCE TECHNICIAN [address] [phone] 11/19/2024 1:10 AM CDT Clinical Support [facility] Cardiology [address] [place] [phone] 01/24/2025 10:30 AM CDT Office Visit [facility] - Pulmonology [address] [facility], [place] [address] Jack Milian MD [address] [facility] 2L DIV OF PULM/[place] [address] 02/18/2025 1:00 AM CDT Clinical Support [facility] - Cardiology [address] [facility], [address] [address] 05/20/2025 1:00 AM GREENS PICKER Clinical Support [facility] - Cardiology [address] [facility], [address] [address] 08/19/2025 1:00 AM CDT Clinical Support [facility] - Cardiology [address] [facility], [address] [address] documented as of this encounter Goals Goal [...] on filedocumented in this encounter Care Teams Ball Mill Operator Relationship Specialty Start Date End Date Kristen Graf, GEL COATER-APPLIANCE TECHNICIAN [address] [facility] [address] [place] [address] PCP - General 05/24/21 documented as of this encounter
--- OUTSIDE RECORDS SUMMARY | 2024-10-04 08:05 | XMS_ITS | Encounter Summary ---
Author Organization [facility] Health Address [address] [facility] [place] [address] Care Team Providers Care Design Center Consultant Name Role Phone Kristen Graf APRNPURNIMA Primary Care Provider Tracie Pritchett MD Primary Care Provider [phone] Kristen Graf [facility] Primary Care Provider Encounter Details Date Type Department Care Team (Late st Contact Info) Description 10/30/2020 Telephone [facility] [address] [place] [address] Ubaldo Salgado MD [address] [place] [address] Social History Tobacco Use Types Packs/Day Years [...] Description 10/10/2024 10:20 AM CDT Office Visit [facility] - Cardiology [address] [facility], [address] [address] Bharathi Higuera MD [facility] [address] 10/18/2024 9:30 AM CDT Office Visit [facility] - Geriatrics [address] [place] [address], [place] [address] Kristen Graf, HIDE SHAKER-HOTSHOT SUPERINTENDENT [address] [place] [address] 11/19/2024 1:10 AM CDT Clinical Support [facility] - Cardiology [address] [place] [address] 01/24/2025 10:30 AM CDT Office Visit [facility] - Pulmonology [address] [place] [address], [place] [address] Jack Milian MD [address] [place] [address] DIV OF PULM/[place] [address] 02/18/2025 1:00 AM CDT Clinical Support [facility] - Cardiology [address] [place] [address] 05/20/2025 1:00 AM TIMBER BUCKER Clinical Support [facility] - Cardiology [address], [facility] [address] [place] [address] 08/19/2025 1:00 AM CDT Clinical Support [facility] - Cardiology [address], [facility] [address] [place] [address] documented as of this encounter Visit Diagnoses Not on filedocumented in this encounter Care Teams Design Center Consultant Relationship Specialty Start Date End Date Kristen Graf, HIDE SHAKER-HOTSHOT SUPERINTENDENT PCP - General 04/27/20 05/19/21 Tracie Pritchett MD [address] [facility] [address] [place] [address] PCP - General Internal Medicine Geriatric Medicine 05/20/21 05/23/21 Kristen Graf, HIDE SHAKER-HOTSHOT SUPERINTENDENT [address] [address] PCP - General 05/24/21 documented as of this encounter
--- OUTSIDE RECORDS SUMMARY | 2024-10-04 08:05 | XMS_ITS | Continuity of Care Document ---
Author Organization [facility] Address [address] [place] [address] Phone Care Team Providers Care Environmental Projects Advisor Name Role Phone Conversion MD, Doctor Unavailable Unavailabl e Advance Directives Directive Yes / No Effective Date File Name No Information Encounters Encounter Description Practice Location Reason(s) For Visit Diagnoses Date Provider Providers Copied on Encounter [facility], [address], [place], [place], [address] , tel: [phone] Conversion Department No Information 7201 [address] Conversion Doctor. [address] [place] [address], [address], . [facility], [address], [place], [place], [address] , tel: [phone] [facility] GENERAL OSTEOARTHROSIS HYPERLIPIDEMIA NEC/NOSSCREEN MAL NEOP-RECTUM September- 0-200 7 Ramila Moss. [facility] [address], [place], [place], [address], . tel: [phone] [facility], [address], [place], [place], [address] , [place] tel: [phone] [facility] CHEST PAIN NECPURE HYPERCHOLESTER OLEM Dec-2 9-200 4 Ramila Moss. [address], [address], [place], [place], [address], [place]. tel: [phone] [facility], [address], [place], [place], [address] , tel: [phone] [facility] CHEST PAIN NOS Dec-2 0-200 4 Ramila Moss. [address], [address], [place], [place], [address], [place]. tel: [phone] [facility], [address], [place], [place], [address] , [place] tel: [phone] [facility] SCREEN-DIABETE S MELLITUSSYMPT FEM CLIMACT STATEASCVD Sep-2 3-200 3 Ramila Moss. [address], [address], [place], [place], [address], [place]. tel: [phone] [facility], [address], [place], [place], [address] , [place] tel: [phone] [facility] ACUTE BRONCHITIS Sep-1 2-200 3 Ramila Moss. [address], [address], [place], [place], [address], [place]. tel: [phone] [facility], [address], [place], [place], [address] , [place] tel: [phone] [facility] BACKACHE NOS Mar- 8-200 1 Ramila Moss. [facility] [address], [place], [place], [address], [place]. tel: [phone] [facility], [address], [place], [place], [address] , [place] tel: [phone] [facility] SCREEN MAL NEOP OTH SITE 6-200 0 Ramila Moss. [address], [place], [place], [address], [place]. tel: [phone] [facility], [address], [place], [place], [address] , [place] tel: [phone] [facility] PTOSIS OF EYELID NOSABDMNAL PAIN GENERALIZED September- 2-200 0 Ramila Moss. [address], [address], [place], [place], [address], [place]. tel: [phone] [facility] [employer], [address], [place], [place], [address] , [place] tel: [phone] [facility] GENERAL MEDICAL EXAM NOSPALPITATION S 1-199 9 Ramila Moss. [address], [place], [place], [address], [place]. tel: [phone] Family History Family Member Type Diagnosis Age [...]
--- NOTE | 2024-10-04 10:16 | WPDPFTINT ---
PFT Procedure Performed PFT Procedure Performed Spirometry with Pre/Post Bronchodilator Plethysmography (Lung Vol) Diffusing Cap (DLCO) Flow Vol Loop PFT Interpretation This is a pulmonary function test with pre and post-bronchodilator spirometry, plethysmography and diffusing capacity. The test was performed and results interpreted in accordance with the 2019 and 2005 ATS/ERS Task Force guidelines respectively using the Global Lung Function Initiative-2012 reference equations. Patient demonstrated good effort and cooperation. Reproducibility criteria were met. The quality of the pre bronchodilator spirometry maneuver was Grade A and post bronchodilator spirometry maneuver was Grade A. Findings: Spirometry: The contour the inspiratory and expiratory flow tracing are normal. The pre bronchodilator FVC is 1.79 L, 71% predicted. The pre bronchodilator FEV1 is 1.40 L, 74% predicted. The pre bronchodilator FEV 1: FVC ratio is 78%. The post bronchodilator FVC is 1.82 L, representing a 2% increase. The post bronchodilator FEV1 is 1.43 L, representing a 2% increase. The post bronchodilator FEV1: FVC ratio is 79%. Plethysmography: The total lung capacity is 3.85 L, 74% predicted. The functional residual capacity is 2.65 L, 88% predicted. The residual volume is 2.06 L, 82% predicted. Diffusing capacity: The diffusing capacity unadjusted for hemoglobin and carboxyhemoglobin is 9.4, 48% predicted. The diffusing capacity adjusted for alveolar volume is 2.85, 71% predicted. Impression: There is a mild restrictive ventilatory abnormality with a normal FEV1. The spirometry is normal without evidence of an obstructive abnormality. There is no significant improvement after inhaling a single dose of albuterol. The diffusing capacity unadjusted for hemoglobin and carboxyhemoglobin is moderately decreased and normalizes when adjusted for alveolar volume. There are no prior studies for comparison
== END 2024-10-04 07:59 | disposition home or self-care (01) ==
LOC: ANHPFT 08:02
PROVIDERS: Visit Provider Internal Medicine Pulmonary Disease
DX: R06.09 Other forms of dyspnea (principal); R94.2 Abnormal results of pulmonary function studies
CPT/HCPCS: 94060; 94726; 94729

== ENCOUNTER 2024-10-16 09:31 | Outpatient (CLI) | payer MEDICARE, OTHER, SELFPAY ==
--- OUTSIDE RECORDS SUMMARY | 2024-10-16 09:37 | XMS_ITS | Encounter Summary ---
Author Organization [facility] Health Address [address] [facility] [place] [address] Care Team Providers Care Welder Apprentice Name Role Phone Minh Thornton MD Primary Care Provider [phone] Kristen Graf [facility] Primary Care Provider Tracie Pritchett MD Primary Care Provider [phone] Kristen Graf APRN-CARD FIXER Primary Care Provider Encounter Details Date Type Department Care Team (Late st Contact Info) Description 03/10/2020 Telephone [facility] [address] [place] [address] Kristen Graf PROP SETTER-CARD FIXER [address] [phone] Social History Tobacco Use Types Packs/Day Years [...] at your convenience. Patient Call Back number: [phone] documented in this encounter Plan of Treatment Upcoming Encounters Date Type Department Care Team (Late st Contact Info) Description 10/18/2024 9:30 AM CDT Office Visit [facility] - Geriatrics [address] [facility], [place] [address] Kristen Graf, PROP SETTER-[facility] [address] [facility] 2ND [place] [address] 11/19/2024 1:10 AM CDT Clinical Support [facility] [address] [facility], [facility] [address] [place] [address] 01/24/2025 10:30 AM CDT Office [facility] [address] [facility], [place] [address] Jack Milian MD [address] [facility] 2L DIV OF PULM/[place] [address] 02/18/2025 1:00 AM CDT Clinical Support [facility] [address], [address] [phone] 04/24/2025 1:20 PM SIGHT EFFECTS SPECIALIST Office Visit [facility] - Cardiology [address], [address] [phone] Bharathi Higuera MD [address] [facility], [address] [address] 05/20/2025 1:00 AM SIGHT EFFECTS SPECIALIST Clinical Support [facility] - Cardiology [address] [facility], [address] [phone] 08/19/2025 1:00 AM CDT Clinical Support [facility] - Cardiology [address] [facility], [address] [address] documented as of this encounter Visit Diagnoses Not on filedocumented in this encounter Care Teams Welder Apprentice Relationship Specialty Start Date End Date Minh Thornton MD [address] [place] [address] [address] [place] [address] PCP - General 03/02/20 04/26/20 Kristen Graf, PROP SETTER-CARD FIXER [address] [place] [address] [address] [place] [address] PCP - General 04/27/20 05/19/21 Tracie Pritchett MD [address] [facility] [address] [place] [address] PCP - General Internal Medicine Geriatric Medicine 05/20/21 05/23/21 Kristen Graf, PROP SETTER-CARD FIXER [address] [phone] PCP - General 05/24/21 documented as of this encounter
--- OUTSIDE RECORDS SUMMARY | 2024-10-16 09:37 | XMS_ITS | Encounter Summary ---
Author Organization [facility] Health Address [address] [facility] [place] [address] Care Team Providers Care World History Teacher Name Role Phone Kristen Gra[facility] Primary Care Provider Encounter Details Date Type Department Care Team (Late st Contact Info) Description 09/23/2024 Results Follow-Up [facility] [address] [place] [address] Kristen Graf APRN-CNP [facility] [address] Social History Tobacco Use Types [...] Description 10/18/2024 9:30 AM CDT Office Visit [facility] [address] [facility], [place] [address] Kristen Graf, FINANCE BROKER-KNUCKLE STRAP SEWER [address] [facility] [address] [place] [address] 11/19/2024 1:10 AM CDT Clinical Support [facility] [address] [facility], [facility] 1120 [place] [address] 01/24/2025 10:30 AM CDT Office Visit [facility] - Pulmonology [address] [facility], [place] [address] Jack Milian MD [address] DIV OF PULM/[place] [address] 02/18/2025 1:00 AM CDT Clinical Support [facility] Physician Group - Cardiology [address], [address] [phone] 04/24/2025 1:20 PM WOODEN SHADE HARDWARE INSTALLER Office Visit [facility] - Cardiology [address] [facility], [address] [phone] Bharathi Higuera MD [address], [address] [address] 05/20/2025 1:00 AM WOODEN SHADE HARDWARE INSTALLER Clinical Support [facility] - Cardiology [address] [facility], [address] [phone] 08/19/2025 1:00 AM CDT Clinical Support [facility] - Cardiology [address] [facility], [address] [phone] documented as of this encounter Goals Goal [...] on filedocumented in this encounter Care Teams World History Teacher Relationship Specialty Start Date End Date Kristen Graf, FINANCE BROKER-KNUCKLE STRAP SEWER [address] [facility] 2[address] [place] [address] PCP - General 05/24/21 documented as of this encounter
--- OUTSIDE RECORDS SUMMARY | 2024-10-16 09:37 | XMS_ITS | Continuity of Care Document ---
Author Organization [facility] Address [address] [place] [address] Phone Care Team Providers Care Real Estate Appraiser Supervisor Name Role Phone Conversion MD, Doctor Unavailable Unavailabl e Advance Directives Directive Yes / No Effective Date File Name No Information Encounters Encounter Description Practice Location Reason(s) For Visit Diagnoses Date Provider Providers Copied on Encounter [employer] [facility], [address], [place], [place], [address] , tel: [phone] Conversion Department No Information 7 1 Conversion Doctor. [address] [place] [address], [address], . [employer], [address], [place], [place], [address] , tel: [phone] [facility] GENERAL OSTEOARTHROSIS HYPERLIPIDEMIA NEC/NOSSCREEN MAL NEOP-RECTUM September- 0-200 7 Ramila Moss. [facility] [address], [place], [place], [address], . tel: [phone] [employer], [address], [place], [place], [address] , [place] tel: [phone] Administration CHEST PAIN NECPURE HYPERCHOLESTER OLEM Dec-2 9-200 4 Ramila Moss. [address], [address], [place], [place], [address], [place]. tel: [phone] [employer], [address], [place], [place], [address] , tel: [phone] [facility] CHEST PAIN NOS Dec-2 0-200 4 Ramila Moss. [address], [address], [place], [place], [address], [place]. tel: [phone] [employer], [address], [place], [place], [address] , [place] tel: [phone] [facility] SCREEN-DIABETE S MELLITUSSYMPT FEM CLIMACT STATEASCVD Sep-2 3-200 3 Ramila Moss. [address], [address], [place], [place], [address], [place]. tel: [phone] [employer], [address], [place], [place], [address] , [place] tel: [phone] [facility] ACUTE BRONCHITIS Sep-1 2-200 3 Ramila Moss. [address], [address], [place], [place], [address], [place]. tel: [phone] [employer], [address], [place], [place], [address] , [place] tel: [phone] [facility] BACKACHE NOS Mar- 8-200 1 Ramila Moss. [facility] [address], [address], [place], [place], [address], [place]. tel: [phone] [employer], [address], [place], [place], [address] , [place] tel: [phone] [facility] SCREEN MAL NEOP OTH SITE 6-200 0 Ramila Moss. [address], [address], [place], [place], [address], [place]. tel: [phone] [employer], [address], [place], [place], [address] , [place] tel: [phone] [facility] PTOSIS OF EYELID NOSABDMNAL PAIN GENERALIZED September- 2-200 0 Ramila Moss. [address], [address], [place], [place], [address], [place]. tel: [phone] [employer], [address], [place], [place], [address] , [place] tel: [phone] [facility] GENERAL MEDICAL EXAM NOSPALPITATION S 1-199 9 Ramila Moss. [address], [address], [place], [place], [address], [place]. tel: [phone] Family History Family Member Type Diagnosis Age [...]
--- OUTSIDE RECORDS SUMMARY | 2024-10-16 09:37 | XMS_ITS | Encounter Summary ---
Author Organization [facility] Health Address [address] [facility] [place] [address] Care Team Providers Care Alteration Tailor Name Role Phone Kristen Graf APRN-AIR SUPPORT OPERATIONS OPERATOR Primary Care Provider Reason for Visit * Reason Onset Date Comments Appointment 07/29/2022 Encounter Details Date Type Department Care Team (Late st Contact Info) Description 07/29/2022 Telephone [facility] [address] [place] [address] Dominic Hines MD [address] [place], [place] [id number] Appointment Social History Tobacco Use Types Packs/Day [...] 10:51 AM GINGERT Flaco Joy RN * Is person blind or have serious difficulty seeing? Answer Date of Assessment Author No 08/16/2021 10:51 AM GINGERT Flaco Joy RN * Does person have serious difficulty walking/climbing stairs? Answer Date of Assessment Author No 08/16/2021 10:51 AM CDT Flaco Joy RN * Does person have difficulty dressing/bathing? Answer Date of Assessment Author No 08/16/2021 10:51 AM GINGERT Flaco Joy RN * Does person have difficulty doing [...] Description 10/18/2024 9:30 AM CDT Office Visit [facility] [address] [facility], [place] [phone] Kristen Graf, FIELD TRAINER-AIR SUPPORT OPERATIONS OPERATOR [address] [facility] [address] [place] [address] 11/19/2024 1:10 AM CDT Clinical Support [facility] [address] [facility], [facility] 1120 [place] [address] 01/24/2025 10:30 AM CDT Office Visit [facility] [address] [facility], [place] [address] Jack Milian MD [address] [facility] 2L DIV OF PULM/[place] [address] 02/18/2025 1:00 AM CDT Clinical Support [facility] Group - Cardiology 10[address] [facility], [address] [phone] 04/24/2025 1:20 PM ART HISTORY PROFESSOR Office Visit [facility] - Cardiology [address] [facility], [address] [phone] Bharathi Higuera MD 10[address] [facility], [address] [address] 05/20/2025 1:00 AM ART HISTORY PROFESSOR Clinical Support [facility] - Cardiology [facility], [address] [phone] 08/19/2025 1:00 AM CDT Clinical Support [facility] - Cardiology [address] [facility], [address] [phone] documented as of this encounter Visit Diagnoses Not on filedocumented in this encounter Care Teams Alteration Tailor Relationship Specialty Start Date End Date Kristen Graf, FIELD TRAINER-AIR SUPPORT OPERATIONS OPERATOR [address] [place] [address] [address] [place] [address] PCP - General 05/24/21 documented as of this encounter
--- OUTSIDE RECORDS SUMMARY | 2024-10-16 09:37 | XMS_ITS | Clinical Summary ---
Author Organization [facility] Address [address] [facility] [place] [address] Phone Care Team Providers Care Mercury Cell Cleaner Name Role Phone Minh Thornton MD Primary Care Provider [phone] Allergies No known active allergies Medications CALCIUM CARBONATE (CALCIUM 500 ORAL) Take by mouth. Activ e MULTIVITAMINS WITH FLUORIDE (MULTI-VITAMIN ORAL) Take by mouth. Activ e clobetasol (TEMOVATE) 0.05 % Lotion Apply to affected area. Active XIIDRA 5 % Dropperette 8 Active XARELTO 20 mg Tablet 8 Active vit C/E/Zn/copper miner blasting/lut/z ea/bio/saf (RETAINE VISION ORAL) Take by mouth. [...] Encounters Date Type Department Care Team Description 10/03/2024 External Device Data STL ABSTRACTION Provider, Abstract 10/01/2024 External Device Data STL ABSTRACTION Provider, [...] on file Legal Sex Female 3:34 AM ROLL COATING MACHINE OPERATOR Gender Identity Not on file Sexual Orientation Not on file Occupation Industry Job Start Date Job End Date Not on file Not on file Not on file Not on file Last Filed Vital Signs Vital Sign Reading Time Taken Comments Blood Pressure 122/78 03/19/2024 10:45 AM ROLL COATING MACHINE OPERATOR Pulse - - Temperature - - Respiratory Rate - - Oxygen Saturation - - Inhaled Oxygen Concentration - - Weight 73 kg (161 lb) 03/19/2024 10:45 AM ROLL COATING MACHINE OPERATOR Height 167.6 cm (5' 6) 03/19/2024 10:45 AM ROLL COATING MACHINE OPERATOR Body Mass Index 25.99 03/19/2024 10:45 AM ROLL COATING MACHINE OPERATOR Plan of Treatment Health Maintenance Due Date Last Done Comments DTAP/TDAP/TD VACCINES (1 - Tdap) 08/30/1959 ZOSTER VACCINE (1 of 2) 1990 RSV VACCINE (60+ or ) (1 - 1-dose 75+ series) 08/30/2015 INFLUENZA VACCINE (#1) 2023 1, 02/06/2020, 02/27/2018 OSTEOPOROSIS SCREENING 06/20/2024 3, 06/17/2022, 06/17/2022, Additional history exists BREAST CANCER SCREENING 03/14/2025 03/14/20 24, 03/12/2024, 03/12/2024, Additional history exists COLORECTAL SCREENING Discontinued 11/08/2018, 11/09/19 19 Colorectal Cancer Screening Discontinued PNEUMOCOCCAL VACCINE 50+ YEARS Completed 01/06/2023 , 02/13/2020 FIT-DNA Q 3 years Discontinued FIT/FOBT Q 1 year Discontinued Flex Sig/CT Colonography Q 5 years Discontinued Procedures Procedure Name Priority Date/Time Associated Diagnosis [...] [employer] PPO Care Teams Mercury Cell Cleaner Relationship Specialty Start Date End Date Minh Thornton MD PCP - General Internal Medicine 01/01/15
--- OUTSIDE RECORDS SUMMARY | 2024-10-16 09:37 | XMS_ITS | Encounter Summary ---
Author Organization [facility] Health Address [address] [facility] [place] [address] Care Team Providers Care Information Systems Professor Name Role Phone Kristen Graf APRN-ROCK SINGER Primary Care Provider Reason for Visit * Reason Comments Refill Request Encounter Details Date Type Department Care Team (Late st Contact Info) Description 10/14/2024 Refill [facility] [address] [address] Bharathi Higuera MD [address] [place] [address] Refill Request Social History Tobacco Use Types Packs/Day Years [...] Visit [facility] [address] [place] [address] Kristen Graf, LEAD JAVASCRIPT ENGINEER-ROCK SINGER [address] [address] 11/19/2024 1:10 AM CDT Clinical Support [facility] [address] [facility], [facility] 1120 [place] [address] 01/24/2025 10:30 AM CDT Office Visit [facility] Pulmonology [address] [place] [address] Jack Milian MD [address] [facility] 2L DIV OF PULM/[place] [address] 02/18/2025 1:00 AM CDT Clinical Support [facility] Group - Cardiology [address], [address] [phone] 04/24/2025 1:20 PM CPAS Office Visit [facility] Group - Cardiology [address], [address] [phone] Bharathi Higuera MD [address], [address] [address] 05/20/2025 1:00 AM CPAS Clinical Support [facility] Group - Cardiology [address] [facility], [address] [phone] 08/19/2025 1:00 AM CDT Clinical Support [facility] - Cardiology [address], [address] [phone] documented as of this encounter Goals Goal [...] documented as of this encounter Visit Diagnoses Diagnosis Essential hypertension documented in this encounter Care Teams Information Systems Professor Relationship Specialty Start Date End Date Kristen Graf, LEAD JAVASCRIPT ENGINEER-ROCK SINGER [address] [facility] 2[address] [place] [address] PCP - General 05/24/21 documented as of this encounter
--- OUTSIDE RECORDS SUMMARY | 2024-10-16 09:37 | XMS_ITS | Encounter Summary ---
Author Organization [facility] Health Address [address] [place] [address] Care Team Providers Care Central Office Repairer Name Role Phone Kristen Graf APRN-PARA OPERATOR Primary Care Provider Encounter Details Date Type Department Care Team (Late st Contact Info) Description 08/28/2024 Telephone [facility] [address] [facility], [place] [address] Jack Milian MD [address] [place] [address] 2L DIV OF PULM/[place] [address] Social History Tobacco Use Types Packs/Day Years [...] Visit [facility] [address] [facility], [place] [address] Kristen Graf, COTTON GRADER-PARA OPERATOR [address] [facility] [address] [place] [address] 11/19/2024 1:10 AM CDT Clinical Support [facility] [address] [facility], [facility] 1120 [place] [address] 01/24/2025 10:30 AM CDT Office Visit [facility] [address] [facility], [place] [address] Jack Milian MD [address] [facility] 2L DIV OF PULM/[place] [address] 02/18/2025 1:00 AM CDT Clinical Support [facility]ician Group - Cardiology [address], [address] [phone] 04/24/2025 1:20 PM COPY CENTER SPECIALIST Office Visit [facility] - Cardiology [address] [facility], [address] [phone] Bharathi Higuera MD [address], [address] [address] 05/20/2025 1:00 AM COPY CENTER SPECIALIST Clinical Support [facility] - Cardiology [address] [facility], [address] [phone] 08/19/2025 1:00 AM CDT Clinical Support [facility] - Cardiology [address] [facility], [address] [phone] documented as of this encounter Goals Goal [...] on filedocumented in this encounter Care Teams Central Office Repairer Relationship Specialty Start Date End Date Kristen Graf, COTTON GRADER-PARA OPERATOR [address] [facility] [address] [place] [address] PCP - General 05/24/21 documented as of this encounter
--- OUTSIDE RECORDS SUMMARY | 2024-10-16 09:37 | XMS_ITS | Encounter Summary ---
Author Organization [facility] Health Address [address] [facility] [place] [address] Care Team Providers Care School Crossing Guard Supervisor Name Role Phone Kristen Garf APRNPURNIMA Primary Care Provider Tracie Pritchett MD Primary Care Provider [phone] [facility] Primary Care Provider Encounter Details Date Type Department Care Team (Late st Contact Info) Description 10/30/2020 Telephone [facility] [address] [place] [address] Ubaldo Salgado MD [address] [place] [address] Social History Tobacco Use Types Packs/Day Years [...] Description 10/18/2024 9:30 AM CDT Office Visit [facility] - Geriatrics [address] [place] [address], [place] [address] Kristen Graf, IMPRESSION PRINTER-[address] [address] 11/19/2024 1:10 AM CDT [facility] [address] [address] 01/24/2025 10:30 AM CDT Office Visit [facility] - Pulmonology [address] [place] [address] Jack Milian MD [address] [place] [address] 2L DIV OF PULM/[place] [address] 02/18/2025 1:00 AM CDT Clinical Support [facility] Group - Cardiology [address] [facility], [address] [address] 04/24/2025 1:20 PM MANAGER OF CASE MANAGEMENT Office Visit [facility] - Cardiology [address] [facility], [address] [phone] Bharathi Higuera MD [address] [facility], [address] [address] 05/20/2025 1:00 AM MANAGER OF CASE MANAGEMENT Clinical Support [facility] - [facility]iology [address], [facility] [address] [place] [address] 08/19/2025 1:00 AM CDT Clinical Support [facility] - Cardiology [address], [facility] [address] [place] [address] documented as of this encounter Visit Diagnoses Not on filedocumented in this encounter Care Teams School Crossing Guard Supervisor Relationship Specialty Start Date End Date Kristen Graf, IMPRESSION PRINTER-MIDDLE CARD TENDER PCP - General 04/27/20 05/19/21 Tracie Pritchett MD [address] [facility] [address] [place] [address] PCP - General Internal Medicine Geriatric Medicine 05/20/21 05/23/21 Kristen Graf IMPRESSION PRINTER-MIDDLE CARD TENDER [address] [address] PCP - General 05/24/21 documented as of this encounter
--- OUTSIDE RECORDS SUMMARY | 2024-10-16 09:37 | XMS_ITS | Clinical Summary ---
Author Organization [facility] Address [address] [place] [address] Care Team Providers Care Typing Bookkeeper Name Role Phone Kristen Graf [facility] Primary Care Provider Source Comments [facility],non-owned Affiliates and Associated Physician Practices is amultiple site organization consisting of ambulatory clinics and hospital sitesin [place], [place], [place] and [place]. This disclosure is being madepursuant to the Care Everywhere program and may not contain all information available regarding this patient. Last updated 18.[facility] Allergies No known active allergies Medications * This document contains information received from the source organization and may not represent a complete record from that organization. * Be aware that medications may not be up to date on this document. Alwaysverify current medications with the patient. vitamin D3 (CHOLECALCIFERO L) (25 MCG) 1000 UNIT capsule Take 1 [...] daily. 30 days supply. 60 g 4 023 Active hydrALAZINE (Apresoline) 50 MG tabletIndicatio ns:Primary hypertension Take 1 (one) tablet by mouth once daily as needed 90 tablet 3 023 Active cycloSPORINE (Restasis) 0.05 % ophthalmic suspension Instill 1 (one) drop into both eyes 2 times daily Active busPIRone (Buspar) 10 MG tabletIndicatio ns:Anxiety Disorder Take 2 (two) tablets by mouth 3 times daily Reasons: Anxiety Disorder 180 tablet 11 024 Active famotidine (Pepcid) 20 MG tabletIndicatio ns:Gastroesopha geal reflux disease, unspecified whether esophagitis present Take 1 (one) tablet by mouth every 12 hours 180 tablet 3 024 Active flecainide (Tambocor) 150 MG tabletIndicatio ns:Typical atrial flutter (HCC) Take 1 (one) tablet by mouth 2 times daily 180 tablet 3 024 2024 Active albuterol HFA (ProAir HFA) 108 (90 Base) MCG/ACT inhalerIndicati ons:Shortness of breath Inhale 2 (two) puffs by mouth every 4 hours as needed for Shortness of Breath, Wheezing or Cough 8.5 g 11 Active Spacer/Aero-Hol ding Chambers (AeroChamber)In dications:Short ness of breath Inhale by mouth as directed 1 Each Active carvedilol (Coreg) 12.5 MG tablet Take 1 (one) tablet by mouth 2 times daily with morning and evening meal 180 tablet 3 025 2025 Active Xarelto 15 MG tablet TAKE 1 (ONE) TABLET BY MOUTH DAILY WITH FOOD 90 tablet 3 025 Active ondansetron, disintegrating, (Zofran ODT) 4 MG tabletIndicatio ns:Nausea Take 1 (one) tablet by mouth every 8 hours as needed for Nausea/Vomiting Allow tablet to dissolve on the tongue 180 tablet Active azithromycin (Zithromax) 250 MG tablet 2 tabs po daily on first day, then 1 tab po daily x4 days 6 tablet 025 Active losartan (Cozaar) 25 MG tabletIndicatio ns:Essential hypertension Take 1.5 (one and one-half) tablets by mouth once daily 135 tablet 3 025 2025 Active tiotropium (Spiriva) 18 MCG inhalation capsule Inhale 1 (one) capsule by mouth once daily Active furosemide (Lasix) 20 MG tablet Take 1 (one) tablet by mouth once daily 90 tablet 3 Active pimecrolimus (Elidel) 1 % creamIndication s:Contact dermatitis due to other agent, unspecified contact dermatitis type Apply to affected areas on face twice a day as needed for itch/irritation. 30 days supply. 60 g 2 023 2024 Discontinued(T x Complete) triamcinolone acetonide (Kenalog) 0.1 % ointment Apply to affected on the lower extremities twice daily. 30 days supply. 80 g 4 023 2024 Discontinued(T x Complete) diclofenac sodium (Voltaren) 1 % gel Apply 4 (four) g to affected area 4 times daily 100 g 11 024 2024 Discontinued(T x Complete) ipratropium (Atrovent) 0.03 % nasal spray [place] 2 sprays into each nostril 2 times daily 024 2024 Discontinued(T x Complete) mupirocin (Bactroban) 2 % ointment Apply to affected area 2 times daily 024 2024 Discontinued(T x Complete) psyllium (Metamucil) 58.6 % powder Take 1 (one) packet by mouth 2 times daily 2024 Discontinued(T x Complete) furosemide (Lasix) 20 MG tablet Take 1 (one) tablet by mouth once daily 90 tablet 4 025 2024 Discontinued losartan (Cozaar) 25 MG tabletIndicatio ns:Essential hypertension Take 1.5 (one and one-half) tablets by mouth once daily 135 tablet 3 025 2024 Discontinued(R eorder) Combivent Respimat 20-100 MCG/ACT inhaler INHALE 1 PUFF EVERY 4 HOURS NEEDED FOR SHORTNESS OF BREATH OR WHEEZING 025 2024 Discontinued(T x Complete) cefdinir (Omnicef) 300 MG capsule Take 1 (one) capsule by mouth 2 times daily for 7 days 14 capsule 025 2024 Active Problems Patient Care Coordination No te Formatting of this note migh t be different from the original. Pallet Assembler - Dr Asaf Ramirez Problem Noted Date [...] Encounters Date Type Department Care Team Description 10/14/2024 Refill [facility] - Cardiology [address] [place] [address], [address] [address] Bharathi Higuera MD Refill Request 10/10/2024 10:20 AM CDT Office Visit [facility] - Cardiology [address] [place] [address], [address] [address] Bharathi Higuera MD Essential hypertension (Primary Dx); SSS (sick sinus syndrome) (HCC); Typical atrial flutter (HCC) 10/10/2024 Travel 09/30/2024 Refill [facility] - Cardiology [address] [facility] [place] [id number] [place] [address] Mani Green, VEHICLE AND EQUIPMENT CLEANER REFILL 09/23/2024 Results Follow-Up [facility] - Geriatrics [address] [place] [phone] Kristen Graf, JAYME-PURNIMA 09/20/2024 10:10 AM CDT - 09/20/2024 11:59 PM CDT Hospital Encounter [facility] DIAGNOSTIC RAD OP [address] [place] [address] Unknown, Provider Discharge Disposition: Home or Self Care 09/20/2024 10:09 AM CDT Hospital Encounter [facility] LAB OP DRAW STATION [address] [place] [address] Kristen Graf, SOCIAL SCIENCE TEACHER-PURNIMA Discharge Disposition: Home or Self Care 09/20/2024 9:00 AM CDT Office Visit [facility] - Geriatrics [address] [place] [phone] Kristen Graf, SOCIAL SCIENCE TEACHER-PURNIMA Nausea (Primary Dx); Typical atrial flutter (HCC); Stage 3a chronic kidney disease (HCC); Leukocytosis, unspecified type; History of UTI; Urine frequency; Hyponatremia; Abnormal lung sounds 09/20/2024 Travel 08/28/2024 Telephone [facility] - Pulmonology [address] [place] [phone] Jack Milian MD Appointment 08/28/2024 Telephone [facility] - Pulmonology [address] [place] [phone] Jack Milian MD 08/23/2024 Refill [facility] - Cardiology [address] [facility], [address] [address] Mani Green, VEHICLE AND EQUIPMENT CLEANER REFILL 08/20/2024 1:10 AM CDT Clinical Support [facility] - Cardiology [address], [address] [address] SSS (sick sinus syndrome) ([facility]) 08/18/2024 Refill [facility] - Cardiology [address] [place] [address], [address] [address] Bharathi Higuera MD Refill Request 08/12/2024 Refill [facility] - Cardiology [address] [place] [address], [address] [address] Mani Green, VEHICLE AND EQUIPMENT CLEANER REFILL 08/09/2024 Telephone [facility] Physician [facility] - Cardiology [address] [place] [address], [address] [phone] Myek Berg Hospitalization 08/09/2024 Travel 07/25/2024 Telephone [facility] Physician [facility] Cardiology [address] [place] [address], [address] [phone] Mani Green, RAYMOND Nausea 07/22/2024 Orders Only [facility] Physician [facility] - Geriatrics [facility] [facility], [place] [phone] Kristen Graf, SOCIAL SCIENCE TEACHER-GRAIN ELEVATOR MAN Leukocytosis, unspecified type ; Hyponatremia 07/19/2024 9:38 AM CHILD PSYCHOLOGIST - 07/19/2024 11:59 PM CHILD PSYCHOLOGIST Hospital Encounter [facility] LAB OP DRAW STATION [address] [place] [phone] Kristen Graf, SOCIAL SCIENCE TEACHER-GRAIN ELEVATOR MAN Discharge Disposition: Home or Self Care 07/19/2024 9:30 AM CHILD PSYCHOLOGIST Office Visit [facility] - Pulmonology [address] [place] [phone] Jack Milian MD Abnormal CT lung screening (Primary Dx); Immunization counseling 07/19/2024 Travel from Last 3 Months Immunizations Immunization Administration Dates Next Due Covid [place] primary monoval ent 12+ yr 0.3mL Purple [...] Sign Reading Time Taken Comments Blood Pressure 122/70 10/10/2024 10:22 AM CDT Pulse 77 10/10/2024 10:22 AM CDT Temperature 36.7 C (98.1 F) 03/28/2024 1:41 PM CHILD PSYCHOLOGIST Respiratory Rate 17 07/19/2024 9:02 AM CHILD PSYCHOLOGIST Oxygen Saturation 97% 10/10/2024 10:22 AM CDT Inhaled Oxygen Concentration - - Weight 68.5 kg (151 lb) 10/10/2024 10:22 AM CDT Height 167.6 cm (5' 6) 10/10/2024 10:22 AM CDT Body Mass Index 24.37 10/10/2024 10:22 AM CDT Plan of Treatment Upcoming Encounters Date Type Department Care Team (Late st Contact Info) Description 10/18/2024 9:30 AM CDT Office Visit [facility] - Geriatrics [address] [facility], [place] [address] Kristen Graf, SOCIAL SCIENCE TEACHER-GRAIN ELEVATOR MAN [address] [phone] 11/19/2024 1:10 AM CDT Clinical Support [facility] - Cardiology [address] [facility], [address] [address] 01/24/2025 10:30 AM CDT Office Visit [facility] - Pulmonology [address] [place] [address], [place] [address] Jack Milian MD [address] [place] [address] [address] DIV OF PULM/[place] [address] 02/18/2025 1:00 AM CDT Clinical Support [facility] - Cardiology [address] [facility], [address] [address] 04/24/2025 1:20 PM CHILD PSYCHOLOGIST Office Visit [facility] - Cardiology [address] [facility], [address] [address] Bharathi Higuera MD [address] [address] 05/20/2025 1:00 AM CHILD PSYCHOLOGIST Clinical Support [facility] - Cardiology [address] [facility], [address] [phone] 08/19/2025 1:00 AM CDT Clinical Support [facility] - Cardiology [address] [facility], [address] [address] Health Maintenance Due Date Last Done Comments [...] 01/06/2023, 05/2019 INFLUENZA VACCINE Completed 01/31/2024, , 02/07/2023, Additional [...] last dose Medical Devices Implanted Type Area Master Control Engineer Device Identifier Shelf Expiration Date Model / Serial / Lot Lead Cp Nv Pace 52cm Strd Elut Pltn Amada - [id number] Implanted:Qty: 1 on 08/16/2021 by Bharathi Higuera MD at [facility] Right: Ventricle [employer] 04/13/2023 5076-52 / [id number] / Description:RV Lead Lead Cp Nv Pace 45cm Strd Elut Pltn Amada - [id number] Implanted:Qty: 1 on 08/16/2021 by Bharathi Higeura MD at [facility] Right: Atrium [employer] 05/06/2023 5076-45 / [id number] / Description:RA lead Pacemkr Granton Wirelessly Crd - [id number] Implanted:Qty: 1 on 08/16/2021 by Bharathi Higuera MD at [facility] Right: Chest [employer] 01/09/2023 [id number] / [id number] / Description:ICD Procedures Procedure Name Priority Date/Time Associated Diagnosis Comments CARDIAC PROCEDURE ORDER 10/15/2024 CARDIAC PROCEDURE ORDER 10/10/2024 URINALYSIS NO MICROSCOPIC NO CULTURE Routine 09/20/2024 [...] KUB Routine 09/20/2024 10:25 AM CDT Nausea [place] PM/ICD REMOTE TECH SERV Routine 08/31/2024 4:40 PM CDT SSS (sick sinus syndrome) (HCC) [place] PM DEVICE INTERROGATE REMOTE Routine 08/31/2024 4:40 PM CDT SSS (sick sinus syndrome) (HCC) CARDIAC PROCEDURE ORDER 08/19/2024 DIFFERENTIAL MANUAL Routine 07/19/2024 9 :46 AM CHILD PSYCHOLOGIST COVID-19 Pneumonia due to COVID-19 virus CBC W AUTO DIFFERENTIAL Routine 07/19/2024 9:46 AM CHILD PSYCHOLOGIST COVID-19 Pneumonia due to COVID-19 virus BASIC METABOLIC PANEL (CALCIUM TOTAL) Routine 07/19/2024 9:46 AM CHILD PSYCHOLOGIST COVID-19 Pneumonia due to COVID-19 virus DEXA BONE DENSITY AXIAL SKELETON Routine 06/17/2022 1:22 PM CHILD PSYCHOLOGIST Primary osteoarthritis involving multiple joints Osteoporosis, unspecified osteoporosis type, unspecified pathological fracture presence from Last 3 Months or Most Recently Relevant to Health Maintenance Results * CARDIAC PROCEDURE ORDER (10/15/2024) Only the most recent of3 resultswithin the time period is included. Narrative 10/15/2024 Ordered by an unspecified provider. us Scanned Document CARDIAC SERVICES ORDERABLES Fin al Result * (ABNORMAL) URINALYSIS NO MICROSCOPIC NO CULTURE (09/20/2024 11:33 AM CDT) Color UA Yellow Yellow, Straw 09/20/2024 12:14 PM CDT [facility] Clarity UA Turbid(A) Clear 09/20/2024 12:14 PM CDT [facility] Glucose UA Normal Normal 09/20/2024 12:14 PM T [facility] Bilirubin UA Negative Negative 09/20/2024 12:14 PM T [facility] Ketone UA Negative Negative 09/20/2024 12:14 PM CDT [facility] Specific [place] UA 1.016 1.005 - 1.030 09/20/2024 12:14 PM T [facility] Blood UA 2+(A) Negative 09/20/2024 12:14 PM CDT [facility] pH UA 6.0 5.0 - 8.0 pH 09/20/2024 12:14 PM CDT [facility] Protein UA Negative Negative 09/20/2024 12:14 PM CDT [facility] Urobilinogen UA Normal Normal mg/dL 09/20/2024 12:14 PM CDT [facility] Nitrite UA Negative Negative 09/20/2024 12:14 PM CDT [facility] Leukocyte UA 500 NAKUL/uL(A) Negative 09/20/2024 12:14 PM CDT [facility] Urine URINE SPECIMEN OBTAINED BY CLEAN CATCH PROCEDURE / Unknown Collection / Unknown 09/20/2024 11:33 AM CDT 09/20/2024 12:00 PM CDT Narrative [facility] - 09/20/2024 12:14 PM CDT Kristen Graf SOCIAL SCIENCE [facility] - URINALYSIS ORDERA BLES Final Result Performing Organization Address City/[facility]/ZIP Co de Phone Number [facility] [address] [place] [address], [place] [phone] * (ABNORMAL) CULTURE URINE (09/20/2024 11:33 AM CDT) [facility] Culture Urine >100,000 CFU/mL Enterococcus faecalis(A) RICHIE 09/22/2024 11:08 PM CDT [facility] MICROBIOLOGY Urine URINE SPECIMEN OBTAINED BY CLEAN CATCH PROCEDURE / Unknown Collection / Unknown 09/20/2024 11:33 AM CDT 09/20/2024 12:00 PM CDT Narrative Organism Antibiotic Method Susceptibility Enterococcus faecalis Ampicillin RICHIE <=2 ug/mL: Susceptible Enterococcus faecalis Nitrofurantoin RICHIE <=16 ug/mL: Susceptible Enterococcus faecalis Vancomycin RICHIE 1 ug/mL: Susceptible Kristen Graf SOCIAL SCIENCE TE[facility] - MICROBIOLOGY ORDE RABLES Final Result [facility] MICROBIOLOGY [address] [place] [address], [facility] [phone] * (ABNORMAL) CBC W/ DIFFERENTIAL (09/20/2024 11:33 AM [facility]) Only the most recent of2 resultswithin the time period is included. WBC 11.4(H) 4.0 - 10.7 x10E9/L 09/20/2024 12:11 PM [facility] RBC Count 3.72(L) 3.90 - 5.20 x10E12/L 09/20/2024 12:11 PM [facility] Hemoglobin 11.2(L) 11.9 - 15.8 g/dL 09/20/2024 12:11 PM [facility] Hematocrit 35.6 34.8 - 46.1 % 09/20/2024 12:11 PM [facility] MCV 95.7 80.0 - 98.0 fL 09/20/2024 12:11 PM [facility] MCH 30.1 26.7 - 33.6 pg 09/20/2024 12:11 PM [facility] MCHC 31.5(L) 31.7 - 36.3 g/dL 09/20/2024 12:11 PM [facility] RDW-CV 15.5(H) 11.3 - 14.8 % 09/20/2024 12:11 PM [facility] Platelet Count 222 150 - 420 x10E9/L 09/20/2024 12:11 PM [facility] MPV 9.0 7.8 - 11.4 fL 09/20/2024 12:11 PM [facility] Neutrophil % 75.7(H) 41.0 - 74.0 % 09/20/2024 12:11 PM [facility] Lymphocyte % 13.0(L) 17.0 - 47.0 % 09/20/2024 12:11 PM [facility] Monocyte % 9.1 3.0 - 11.0 % 09/20/2024 12:11 PM [facility] Eosinophil % 1.6 0.0 - 7.0 % 09/20/2024 12:11 PM [facility] Basophil % 0.3 0.0 - 1.6 % 09/20/2024 12:11 PM [facility] Immature Granulocytes % 0.3 0.0 - 1.0 % 09/20/2024 12:11 PM [facility] Neutrophil Absolute 8.65(H) 1.60 - 7.50 x10E9/L 09/20/2024 12:11 PM [facility] Lymphocyte Absolute 1.49 1.00 - 4.40 x10E9/L 09/20/2024 12:11 PM [facility] Monocyte Absolute 1.04(H) 0.15 - 1.00 x10E9/L 09/20/2024 12:11 PM [facility] Eosinophil Absolute 0.18 0.00 - 0.60 x10E9/L 09/20/2024 12:11 PM [facility] Basophil Absolute 0.03 0.00 - 0.13 x10E9/L 09/20/2024 12:11 PM [facility] Blood BLOOD SPECIMEN / Unknown Lab Venipuncture / Unknown 09/20/2024 11:33 AM CDT 09/20/2024 12:05 PM T us Kristen Graf SOCIAL SCIENCE TEACHER-GRAIN ELEVATOR MAN LAB - HEMATOLOGY ORDERA BLES Final Result [facility] [address] [place] [phone], [facility] [phone] * (ABNORMAL) COMPREHENSIVE METABOLIC PANEL (09/20/2024 11:33 AM CDT) BUN 16 7 - 26 mg/dL 09/20/2024 12:31 PM [facility] Creatinine 0.91 0.56 - 0.96 mg/dL 09/20/2024 12:31 PM [facility] Sodium 137 136 - 145 mmol/L 09/20/2024 12:31 PM [facility] Potassium 4.5 3.5 - 4.5 mmol/L 09/20/2024 12:31 PM [facility] Chloride 101 98 - 107 mmol/L 09/20/2024 12:31 PM [facility] CO2 29 22 - 29 mmol/L 09/20/2024 12:31 PM [facility] Glucose 131(H) 70 - 99 mg/dL 09/20/2024 12:31 PM [facility] Calcium 9.2 8.4 - 10.2 mg/dL 09/20/2024 12:31 PM [facility] Protein Total 7.1 6.0 - 8.3 g/dL 09/20/2024 12:31 PM [facility] Albumin 3.0(L) 3.4 - 5.0 g/dL 09/20/2024 12:31 PM [facility] Bilirubin Total 0.4 0.2 - 1.2 mg/dL 09/20/2024 12:31 PM [facility] Alkaline Phosphatase 104 40 - 150 U/L 09/20/2024 12:31 PM [facility] ALT 7 5 - 55 U/L 09/20/2024 12:31 PM [facility] AST 12 5 - 34 U/L 09/20/2024 12:31 PM [facility] Anion Gap 7 6 - 16 09/20/2024 12:31 PM [facility] BUN/Creatinine Ratio 18 7 - 23 09/20/2024 12:31 PM [facility] Osmolality Calculated 287 275 - 295 mOsm/kg 09/20/2024 12:31 PM [facility] Albumin/Globulin Ratio 0.7(L) 1.1 - 2.3 09/20/2024 12:31 PM [facility] eGFR by CKD-EPI 62(L) >=90 mL/min/1.7 3 m2 09/20/2024 12:31 PM [facility] Blood BLOOD SPECIMEN / Unknown Lab Venipuncture / Unknown 09/20/2024 11:33 AM T 09/20/2024 12:05 PM [facility] us Kristen Graf SOCIAL SCIENCE TEACHER-GRAIN ELEVATOR MAN LAB - CHEMISTRY ORDERAB LES Final Result [facility] [address] [place] [address], [facility] [phone] * XR Abdomen Kub (09/20/2024 10:25 AM [...] MD on 09/20/2024 12:33 PM Kristen Graf SOCIAL SCIENCE TEACHER-GRAIN ELEVATOR MAN DIAGNOSTIC IMAGING ORDE RABKELLY Final Result * XR Chest 2Vw (09/20/2024 10:25 AM CDT) Anatomical Region Laterality Modality Chest Digital Radiogra phy 09/21/2024 5:36 PM CDT Narrative 09/22/2024 5:08 AM CDT PROCEDURE: XR CHEST 2VW, DATE/TIME OF EXAM: 09/20/2024 10:26 AM, LOCATION [facility] INDICATION: R09.89: Abnormal lung sounds COMPARISON: CT [...] report was drafted by Matty March MD (co founder and president) 09/21/2024 5:36 PM. Danny Santana MD have personally reviewed and interpreted this examination/study. > Interpreting Provider: Danny Kerr MD on 09/22/2024 5:08 AM Procedure Note Danny Kerr MD - 09/22/2024 PROCEDURE: XR CHEST 2VW, DATE/TIME OF EXAM: 09/20/2024 10:26 AM, LOCATION [facility] INDICATION: R09.89: Abnormal lung sounds COMPARISON: CT [...] report was drafted by Matty March MD (co founder and president) 09/21/2024 5:36 PM. Danny Santana MD have personally reviewed and interpreted this examination/study. > Interpreting Provider: Danny Kerr MD on 09/22/2024 5:08 AM Kristen Graf SOCIAL SCIENCE TEACHER-GRAIN ELEVATOR MAN DIAGNOSTIC IMAGING [facility] Final Result * [place] PM DEVICE INTERROGATE REMOTE, [place] PM/ICD REMOTE TECH SERV (08/31/2024 4:40 PM CDT) Narrative Bharathi Higuera MD - 08/31/2024 4:40 PM CDT Bharathi Higuera MD 08/31/2024 4:40 PM Dear Salome Aaron, I reviewed the remote interrogation of [...] PROCEDURE/MINOR SURGICAL ORDERAB LES Final Result * (ABNORMAL) DIFFERENTIAL MANUAL (07/19/2024 9:46 AM [facility]) Neutrophil % 81(H) 41 - 74 % 07/19/2024 10:57 AM [facility] Lymphocyte % 10(L) 17 - 47 % 07/19/2024 10:57 AM [facility] Monocyte % 7 3 - 11 % 07/19/2024 10:57 AM [facility] Eosinophil % 2 0 - 7 % 07/19/2024 10:57 AM [facility] Neutrophil Absolute 11.50(H) 1.60 - 7.50 x10E9/L 07/19/2024 10:57 AM [facility] Lymphocyte Absolute 1.42 1.00 - 4.40 x10E9/L 07/19/2024 10:57 AM [facility] Monocyte Absolute 0.99 0.15 - 1.00 x10E9/L 07/19/2024 10:57 AM [facility] Eosinophil Absolute 0.28 0.00 - 0.60 x10E9/L 07/19/2024 10:57 AM [facility] RBC Morphology NORMAL 07/19/2024 10:57 AM [facility] Blood BLOOD SPECIMEN / Unknown Lab Venipuncture / Unknown 07/19/2024 9:46 AM CHILD PSYCHOLOGIST 07/19/2024 10:17 AM CHILD PSYCHOLOGIST Kristen Graf SOCIAL SCIENCE TEACHER-GRAIN ELEVATOR MAN LAB - HEMATOLOGY ORDERA BLES Final Result [facility] [address] [place] [address], [facility] [phone] * (ABNORMAL) BASIC METABOLIC PANEL (CALCIUM TOTAL) (07/19/2024 9:46 AM CHILD PSYCHOLOGIST) BUN 23 7 - 26 mg/dL 07/19/2024 10:53 AM [facility] Creatinine 0.89 0.56 - 0.96 mg/dL 07/19/2024 10:53 AM [facility] Sodium 140 136 - 145 mmol/L 07/19/2024 10:53 AM [facility] Potassium 3.4(L) 3.5 - 4.5 mmol/L 07/19/2024 10:53 AM [facility] Chloride 105 98 - 107 mmol/L 07/19/2024 10:53 AM [facility] CO2 27 22 - 29 mmol/L 07/19/2024 10:53 AM [facility] Glucose 149(H) 70 - 99 mg/dL 07/19/2024 10:53 AM [facility] Calcium 8.4 8.4 - 10.2 mg/dL 07/19/2024 10:53 AM [facility] Anion Gap 8 6 - 16 07/19/2024 10:53 AM [facility] BUN/Creatinine Ratio 26(H) 7 - 23 07/19/2024 10:53 AM [facility] Osmolality Calculated 296(H) 275 - 295 mOsm/kg 07/19/2024 10:53 AM [facility] eGFR by CKD-EPI 64(L) >=90 mL/min/1.7 3 m2 07/19/2024 10:53 AM [facility] Blood BLOOD SPECIMEN / Unknown Lab Venipuncture / Unknown 07/19/2024 9:46 AM CHILD PSYCHOLOGIST 07/19/2024 10:17 AM CHILD PSYCHOLOGIST Kristen Graf SOCIAL SCIENCE TEACHER-GRAIN ELEVATOR MAN LAB - CHEMISTRY ORDERAB LES Final Result [facility] [address] [place] [address], [facility] [phone] * BONE DENSITY AXIAL SKELETON(1OR MORE SITES)[id number] (06/17/2022 1:22 PM CHILD PSYCHOLOGIST) Anatomical Region Laterality Modality Other 06/20/2022 5:28 PM CHILD PSYCHOLOGIST Narrative 06/20/2022 5:29 PM CHILD PSYCHOLOGIST PROCEDURE: DEXA BONE DENSITY AXIAL SKELETON, DATE/TIME OF EXAM: 06/17/2022 1:23 PM, LOCATION [facility] INDICATION: M15.9: Primary osteoarthritis involving [...] SKELETON, DATE/TIME OF EXAM:06/17/2022 1:23 PM, LOCATION [facility] INDICATION: M15.9: Primary osteoarthritis involving [...] on 06/20/2022 5:29 PM Kristen Graf SOCIAL SCIENCE TEACHER-GRAIN ELEVATOR MAN DEXA ORDERABLES Final R esult from Last 3 Months or Most Recently Relevant to Health Maintenance Insurance MEDICARE [employer] [facility] MEDICARE [facility] [employer] [facility] Advance Directives * Full Code (Latest Code Status on File) Date Activated Date Inactivated Comments 07/03/2021 6:20 PM 07/04/2021 5:26 PM Care Teams Typing Bookkeeper Relationship Specialty Start Date End Date Kristen Graf, SOCIAL SCIENCE TEACHER-GRAIN ELEVATOR MAN [address] [facility] [address] [place] [address] PCP - General 05/24/21
[2024-10-16 10:21] LABS: CRP 0.5 mg/dL (<1.0); Creatine Kinase 70 U/L (30-135)
[2024-10-16 10:41] LABS: Erythrocyte Sedimentation Rate 28 mm/hr (0-20)
[2024-10-16 10:54] LABS: Rheumatoid Factor < 12.0 IU/ML (<12)
[2024-10-17 06:44] LABS: ANA Cascade Screen NEGATIVE (NEGATIVE)
[2024-10-17 07:24] LABS: Alpha-1-Antitrypsin, QN 131 mg/dL (83-199)
[2024-10-17 13:05] LABS: Anti Cyclic Citrullinated Pept <16 UNITS
[2024-10-18 14:58] LABS: Aldolase 4.2 U/L (< OR = 8.1)
[2024-10-19 16:18] LABS: ANCA Screen NEGATIVE (NEGATIVE)
== END 2024-10-16 09:32 | disposition home or self-care (01) ==
PROVIDERS: Visit Provider Internal Medicine Pulmonary Disease
DX: J98.4 Other disorders of lung (principal); J84.9 Interstitial pulmonary disease, unspecified; E88.01 Alpha-1-antitrypsin deficiency
CPT/HCPCS: 36415; 82085; 82103; 82550; 85652; 86036; 86038; 86140; 86200; 86225; 86235; 86364; 86430

== ENCOUNTER 2024-11-28 10:21 | Emergency (ER) | payer MEDICARE, OTHER, SELFPAY ==
[2024-11-28 10:49] VITALS: BP 141/69; PULSE 78; RESP 16; TEMP 36; O2SAT 96
--- NOTE | 2024-11-28 10:57 | ED_ITS ---
HPI - Abdominal Pain General Chief Complaint: Unspecified Stated Complaint: Constipation Patient presents to Express Care with complaints of abdominal fullness and constipation. Patient reports last bowel movement was 4 days ago. Patient has been in contact with her primary care physician was told to use MiraLax which she has been using daily without relief of symptoms. Patient noted she was unsure of what else to use and was unable to get a hold of primary care physician to ask also noted she is on a fluid restricted diet from her c s s representative so did not want to take anything [id number] that may not work. No history of obstruction. Related Data Home Medications ?Medication ?Instructions ?Recorded ?Confirmed ?Last Taken ?Type cholecalciferol (vitamin D3) 25 1,000 unit PO DAILY 01/13/20 10/23/24 07/31/24 History mcg (1,000 unit) capsule hydralazine 50 mg tablet 50 mg PO DAILY PRN Hypertension 03/26/21 10/23/24 Unknown History rivaroxaban 15 mg tablet (Xarelto) 15 mg PO QPM 04/27/21 10/23/24 07/30/24 History buspirone 10 mg tablet 20 mg PO 0830,1330,1930 01/11/22 10/23/24 07/31/24 08:30 History carvedilol 25 mg tablet (Coreg) 12.5 mg PO Q12H 11/08/23 10/23/24 07/31/24 08:30 History cyclosporine 0.05 % eye drops 1 drp EACH EYE Q12H 11/08/23 10/23/24 07/31/24 History (Restasis MultiDose) flecainide 150 mg tablet 150 mg PO Q12H 11/08/23 10/23/24 07/31/24 History losartan 25 mg tablet 25 mg PO DAILY 11/08/23 10/23/24 07/31/24 History sennosides 8.6 mg-docusate sodium 1 tab-cap PO DAILY 08/08/24 10/23/24 Unknown History 50 mg tablet (Senna with Docusate Sodium) famotidine 20 mg tablet (Pepcid AC) 20 mg PO DAILY 10/23/24 10/23/24 Unknown History Allergies Allergy/AdvReac Type Severity Reaction Status Date / Time monosodium glutamate AdvReac Unknown Fatigued Verified 10/23/24 13:20 Review of Systems Constitutional: Constitutional: Reports as per HPI, Denies chills, Denies fatigue, Denies fever(s) and Denies weakness Cardiovascular: Cardiovascular: Reports no additional cardiovascular complaints Respiratory: Respiratory: Reports no additional respiratory complaints Gastrointestinal: Gastrointestinal: Reports as per HPI, Denies abdominal pain, Reports bloating, Reports constipation, Denies heartburn, Denies diarrhea, Denies nausea and Denies vomiting Genitourinary: Genitourinary: Reports no additional female genitourinary complaints Musculoskeletal: Musculoskeletal: Reports no additional musculoskeletal complaints Integumentary/Breasts: Skin/Breast: Reports system reviewed and no additional complaints, except as docu Neurologic: Reports system reviewed and no additional complaints, except as documented Psychiatric: Psychiatric: Reports no additional psychiatric complaints Endocrine: Endocrine: Reports no additional endocrine complaints Hematologic/Lymphatic: Hematologic/Lymphatic: Reports no additional hematologic/lymphatic complaints Allergic/Immunologic: Allergic/Immunologic: Reports no additional allergic/immunologic complaints [facility] Past Medical History Medical History (Updated 11/28/24 @ 11:18 by Bhavana Ely, SOFTWARE ASSET MANAGER-C) Hoarse voice quality Hypokalemia Diastolic dysfunction Transient ischemic attack At the age of 29, attributed to oral contraceptives. Chronic anticoagulation Anxiety Chronic obstructive pulmonary disease Related to significant secondhand smoke exposure. Dyslipidemia Left carotid bruit Unremarkable carotid Doppler ultrasounds on 09/09/2019. Eczema Paroxysmal atrial fibrillation Paroxysmal atrial fibrillation/atrial flutter. Maintained on flecainide, carvedilol, and rivaroxaban. Patient of Dr. Bharathi Higuera at [facility]. Hypertension Headache, migraine Arthritis Surgical History Surgical History History of permanent cardiac pacemaker placement History of cardiac radiofrequency ablation History of tubal ligation History of tonsillectomy History of appendectomy History of ventral hernia repair History of uterine suspension procedure History of eyelid surgery Family History Family History Mother Family history of kidney disease Family history of elevated blood lipids Acute myocardial infarction, Onset Age: 93 Family history of liver disease, Onset Age: 93 Family history of congestive heart failure Family history of chronic obstructive pulmonary disease Family history of renal failure, Onset Age: 93 Father Family history of migraine headaches Hypertension Grandparent Cerebrovascular accident Other Family history of cardiovascular disease Social History Social History Social History: Surrogate medical decision maker: Alcides Aaron, spouse. Code status: Full code. Smoking status: Never smoker Second hand tobacco smoke exposure: Yes Alcohol intake: never Substance use: never Substance use type: does not use Do You Feel Safe in your Home?: Yes Lack of Transportation: No Lack of Food: Never True Current Housing: I Have Housing Concerned About Future Housing: No Difficulty Paying Gas/Electric Bills: No Difficulty Paying for Meds: No Currently Unemployed: No Education: Bachelor's Degree Difficulty w/ Childcare or Family Care: No Additional living arrangements comments: . Lives with spouse in [place]. They have 2 children. 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 Spiritual care concerns: No Exam Const: General: healthy appearing and no acute distress Nutritional Appearance: well nourished Orientation/consciousness: patient oriented x3 Limitations: no limitations Resp: Effort & Inspection: normal respiratory effort Auscultation: clear to auscultation bilaterally Cardio: Rate: regular rate Rhythm: regular rhythm GI: Inspection: non-distended GI Palp: Yes Soft to palpation, Yes Tenderness to palpation present (GI) ( Minimal generalized), No Guarding due to palpation present (GI), No Rigid due to palpation, No Hernia present, No Palpable mass present and No Rebound tenderness present Auscultation: normal bowel sounds : General: Yes bladder normal to palpation and Yes no CVA tenderness Skin: General skin exam: normal color Rashes: no rashes Wounds: no wounds Neuro: General: patient oriented x3 Speech: normal speech Gait exam (Neuro): Normal gait present Psych: Mental Status: mental status grossly normal Affect: normal affect Attitude: cooperative Course Course Level of Care: Express Care Visit Vital Signs Vital signs: Vital Signs Temperature 96.8 F L 11/28/24 10:49 Pulse Rate 78 11/28/24 10:49 Respiratory Rate 16 11/28/24 10:49 Blood Pressure 141/69 H 11/28/24 10:49 Pulse Oximetry 96 11/28/24 10:49 Temperature 96.8 F L 11/28/24 10:49 Pulse Rate 78 11/28/24 10:49 Respiratory Rate 16 11/28/24 10:49 Blood Pressure 141/69 H 11/28/24 10:49 Pulse Oximetry 96 07/17/25 10:49 MDM - Abdominal Pain MDM Narrative Medical decision making narrative: spoke with patient about [id number] medications to help use this. No high-pitched sounds or significant abdominal tenderness. Imaging not warranted at this time. Discharge instructions reviewed with patient, as well as provided in writing per nursing staff. The instructions also include specific and strict return/GO TO THE ER as well as f/u information. All questions have been answered, and the patient deny any further questions with discharge and discharge plan. Differential Diagnosis Differential diagnosis: Likely abdominal pain, constipation, diverticulitis, endometriosis, gastroenteritis, pancreatitis and small bowel obstruction Medical Records Attestation: I reviewed the patient's medical records. Discharge Plan Discharge Clinical Impression: Constipation Qualifiers: Constipation type: unspecified constipation type Qualified Code(s): K59.00 - Constipation, unspecified Patient Disposition: Home Condition: Stable Instructions: Antibiotic Form, Constipation (ED) Additional Instructions: Continue using MiraLax, may use this 2 doses a day until you notice regular bowel movements. Recommended Dulcolax suppositories and tablets, the tablets are stimulant laxatives and can cause some abdominal pain and cramping also recommended magnesium citrate tablets Since you have a fluid restriction. If you begin to notice significant abdominal pain, nausea, vomiting or do not have any bowel movements within the next 2-3 days go to the emergency room for further evaluation of symptoms. Patient Language: Frisian Prescriptions: No Action cholecalciferol (vitamin D3) 25 mcg (1,000 unit) capsule 1,000 unit PO DAILY carvedilol [Coreg] 25 mg tablet 12.5 mg PO Q12H Rx Instructions: must administer with a meal/food flecainide 150 mg tablet 150 mg PO Q12H losartan 25 mg tablet 25 mg PO DAILY Restasis MultiDose 0.05 % drops 1 drp EACH EYE Q12H tiotropium bromide 18 mcg capsule, w/inhalation device 1 cap inhalation DAILY Qty: 60 3RF Rx Instructions: puncture 1 cap using device; one dose = 2 inhalations famotidine [Pepcid AC] 20 mg tablet 20 mg PO DAILY mupirocin [Centany] 2 % ointment 1 applic topical 6XD Qty: 44 3RF Rx Instructions: intranasal Xarelto 15 mg tablet 15 mg PO QPM buspirone 10 mg tablet 20 mg PO 0830,1330,1930 furosemide 20 mg Tablet 20 mg PO BID Qty: 14 0RF hydralazine 50 mg tablet 50 mg PO DAILY PRN (Reason: Hypertension) sennosides-docusate sodium [Senna with Docusate Sodium] 8.6-50 mg tablet 1 tab-cap PO DAILY Follow-up/Referrals: PHYSICIAN,MAINTENANCE SHOP WELDER [Primary Care Provider] - Time of Disposition: 11:18
== END 2024-11-28 11:24 | disposition home or self-care (01) ==
PROVIDERS: Emergency Provider Nurse Practitioner Family
DX: K59.00 Constipation, unspecified (principal); I10 Essential (primary) hypertension; I48.0 Paroxysmal atrial fibrillation; E78.5 Hyperlipidemia, unspecified; Z86.73 Personal history of transient ischemic attack (TIA), and cerebral infarction without residual deficits; Z79.01 Long term (current) use of anticoagulants; M19.90 Unspecified osteoarthritis, unspecified site; F41.9 Anxiety disorder, unspecified; Z95.0 Presence of cardiac pacemaker
CPT/HCPCS: 99211; G0463

== ENCOUNTER 2025-01-19 10:15 | Emergency (ER) | payer MEDICARE, OTHER, SELFPAY ==
[2025-01-19 10:35] VITALS: BP 119/64; PULSE 69; RESP 16; TEMP 35.5; O2SAT 100
--- NOTE | 2025-01-19 11:30 | ED.GENADULT ---
HPI - General Adult General Chief complaint: Upper Respiratory Infection Stated complaint: SOB Source: patient Mode of arrival: ambulatory Limitations: no limitations History of Present Illness HPI narrative: Patient presents requesting education on how to use a spacer for her albuterol inhaler. She has some chronic intermittent shortness of breath and had a spacer at home. She was unaware of how to use it. Last night she had an acute episode of shortness of breath and used her inhaler. She states her symptoms have since improved but she is asking for education on how to use the device. She currently does not feel sick and denies fever, chills, cough, shortness of breath, sore throat nausea, vomiting, diarrhea. She simply came in for education as to how to use the spacer for her inhaler. Related Data Home Medications ?Medication ?Instructions ?Recorded ?Confirmed ?Last Taken ?Type cholecalciferol (vitamin D3) 25 1,000 unit PO DAILY 01/13/20 12/18/24 07/31/24 History mcg (1,000 unit) capsule hydralazine 50 mg tablet 50 mg PO DAILY PRN Hypertension 03/26/21 12/18/24 Unknown History rivaroxaban 15 mg tablet (Xarelto) 15 mg PO QPM 04/27/21 12/18/24 07/30/24 History buspirone 10 mg tablet 20 mg PO 0830,1330,1930 01/11/22 12/18/24 07/31/24 08:30 History carvedilol 25 mg tablet (Coreg) 12.5 mg PO Q12H 11/08/23 12/18/24 07/31/24 08:30 History cyclosporine 0.05 % eye drops 1 drp EACH EYE Q12H 11/08/23 12/18/24 07/31/24 History (Restasis MultiDose) flecainide 150 mg tablet 150 mg PO Q12H 11/08/23 12/18/24 07/31/24 History sennosides 8.6 mg-docusate sodium 1 tab-cap PO DAILY 08/08/24 12/18/24 Unknown History 50 mg tablet (Senna with Docusate Sodium) famotidine 20 mg tablet (Pepcid AC) 20 mg PO DAILY 10/23/24 12/18/24 Unknown History losartan 25 mg tablet 37.5 mg PO DAILY 12/18/24 12/18/24 Unknown History Allergies Allergy/AdvReac Type Severity Reaction Status Date / Time monosodium glutamate AdvReac Unknown Fatigued Verified 12/18/24 13:04 Review of Systems Review of Systems: CONSTITUTIONAL: Denies fever, chills, or sweats. EYES: Denies visual changes, redness, or discharge. ENT: Denies rhinorrhea, congestion, sore throat, or otalgia. CARDIOVASCULAR: Denies chest pain, palpitations, or edema. RESPIRATORY: reports chronic intermittent shortness of breath, none currently. GASTROINTESTINAL: Denies abdominal pain, nausea, vomiting, or diarrhea. GENITOURINARY: Denies dysuria or hematuria. SKIN: Denies rash or itching. MUSCULOSKELETAL: Denies back pain, joint pain, or myalgia. NEUROLOGIC: Denies headache, numbness, dizziness, or weakness. PSYCHIATRIC: Denies anxiety or depression. [facility] Past Medical History Medical History Hoarse voice quality Hypokalemia Diastolic dysfunction Transient ischemic attack At the age of 29, attributed to oral contraceptives. Chronic anticoagulation Anxiety Chronic obstructive pulmonary disease Related to significant secondhand smoke exposure. Dyslipidemia Left carotid bruit Unremarkable carotid Doppler ultrasounds on 09/09/2019. Eczema Paroxysmal atrial fibrillation Paroxysmal atrial fibrillation/atrial flutter. Maintained on flecainide, carvedilol, and rivaroxaban. Patient of Dr. Bharathi Higuera at [facility]. Hypertension Headache, migraine Arthritis Surgical History Surgical History History of permanent cardiac pacemaker placement History of cardiac radiofrequency ablation History of tubal ligation History of tonsillectomy History of appendectomy History of ventral hernia repair History of uterine suspension procedure History of eyelid surgery Family History Family History Mother Family history of kidney disease Family history of elevated blood lipids Acute myocardial infarction, Onset Age: 93 Family history of liver disease, Onset Age: 93 Family history of congestive heart failure Family history of chronic obstructive pulmonary disease Family history of renal failure, Onset Age: 93 Father Family history of migraine headaches Hypertension Grandparent Cerebrovascular accident Other Family history of cardiovascular disease Social History Social History Social History: Surrogate medical decision maker: Alcides Aaron, spouse. Code status: Full code. Smoking status: Never smoker Second hand tobacco smoke exposure: Yes Alcohol intake: never Substance use: never Substance use type: does not use Do You Feel Safe in your Home?: Yes Lack of Transportation: No Lack of Food: Never True Current Housing: I Have Housing Concerned About Future Housing: No Difficulty Paying Gas/Electric Bills: No Difficulty Paying for Meds: No Currently Unemployed: No Education: Bachelor's Degree Difficulty w/ Childcare or Family Care: No Additional living arrangements comments: . Lives with spouse in [place]. They have 2 children. 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 Spiritual care concerns: No Exam Narrative: GENERAL: Well-appearing, well-nourished, and in no acute distress. HEAD: Normocephalic, atraumatic. EYES: PERRLA and EOMI. ENT: Nares clear, no rhinorrhea or epistaxis. Mucous membranes moist. Oropharynx without tonsillar hypertrophy exudate or other lesions. Bilateral TMs pearly sage nonbulging NECK: Supple. No adenopathy or masses. No carotid bruits or JVD CHEST: Clear to auscultation. No respiratory distress. No wheezes rales or rhonchi HEART: Regular rate and rhythm. No murmur heard. Normal peripheral pulses. ABDOMEN: Soft, nontender, nondistended, normal active bowel sounds. EXTREMITIES: Normal range of motion. No edema. SKIN: Warm, dry, no rash. NEURO: No focal deficits. Alert and oriented x3. PSYCH: Normal mood and affect. Course Course Emergency Course: This is an 84-year-old female who presented for education on how to use her spacer for her inhaler. By the time I evaluated patient, she had already received Education from the nursing staff. On my interview, she denies any symptoms physically and states that all of her needs have been addressed. She was advised to follow-up with pulmonology as previously planned and to go to the hospital for shortness of breath it does not respond to her inhaler. Patient in agreement with plan of care. Level of Care: Express Care Visit Vital Signs Vital signs: Vital Signs Temperature 35.5 C L 01/19/25 10:35 Pulse Rate 69 01/19/25 10:35 Respiratory Rate 16 01/19/25 10:35 Blood Pressure 119/64 01/19/25 10:35 Pulse Oximetry 100 01/19/25 10:35 Temperature 35.5 C L 01/19/25 10:35 Pulse Rate 69 01/19/25 10:35 Respiratory Rate 16 01/19/25 10:35 Blood Pressure 119/64 01/19/25 10:35 Pulse Oximetry 100 01/19/25 10:35 Medical Decision Making Vital Signs Vital Signs: Vital Signs Temperature 35.5 C L 01/19/25 10:35 Pulse Rate 69 01/19/25 10:35 Respiratory Rate 16 01/19/25 10:35 Blood Pressure 119/64 01/19/25 10:35 Pulse Oximetry 100 01/19/25 10:35 Temperature 35.5 C L 01/19/25 10:35 Pulse Rate 69 01/19/25 10:35 Respiratory Rate 16 01/19/25 10:35 Blood Pressure 119/64 01/19/25 10:35 Pulse Oximetry 100 01/19/25 10:35 Discharge Plan Discharge Clinical Impression: Encounter for education Patient Disposition: Home Condition: Stable Instructions: Antibiotic Form, How to Use a Metered-Dose Inhaler and a Spacer (DC) Patient Language: Armenian Prescriptions: No Action cholecalciferol (vitamin D3) 25 mcg (1,000 unit) capsule 1,000 unit PO DAILY carvedilol [Coreg] 25 mg tablet 12.5 mg PO Q12H Rx Instructions: must administer with a meal/food flecainide 150 mg tablet 150 mg PO Q12H Restasis MultiDose 0.05 % drops 1 drp EACH EYE Q12H tiotropium bromide 18 mcg capsule, w/inhalation device 1 cap inhalation DAILY Qty: 60 3RF Rx Instructions: puncture 1 cap using device; one dose = 2 inhalations losartan 25 mg tablet 37.5 mg PO DAILY famotidine [Pepcid AC] 20 mg tablet 20 mg PO DAILY mupirocin [Centany] 2 % ointment 1 applic topical 6XD Qty: 44 3RF Rx Instructions: intranasal Xarelto 15 mg tablet 15 mg PO QPM buspirone 10 mg tablet 20 mg PO 0830,1330,1930 furosemide 20 mg Tablet 20 mg PO BID Qty: 14 0RF hydralazine 50 mg tablet 50 mg PO DAILY PRN (Reason: Hypertension) sennosides-docusate sodium [Senna with Docusate Sodium] 8.6-50 mg tablet 1 tab-cap PO DAILY Follow-up/Referrals: Jh Nichols APRN [Primary Care Provider, Pulmonology] Time of Disposition: 11:29
== END 2025-01-19 11:35 | disposition home or self-care (01) ==
PROVIDERS: Emergency Provider Nurse Practitioner; PCP Nurse Practitioner Family
DX: Z71.89 Other specified counseling (principal); J44.9 Chronic obstructive pulmonary disease, unspecified; I48.0 Paroxysmal atrial fibrillation; I10 Essential (primary) hypertension; E78.5 Hyperlipidemia, unspecified; M19.90 Unspecified osteoarthritis, unspecified site; Z95.0 Presence of cardiac pacemaker; Z86.73 Personal history of transient ischemic attack (TIA), and cerebral infarction without residual deficits; Z79.01 Long term (current) use of anticoagulants
CPT/HCPCS: 99211; G0463

== ENCOUNTER 2025-01-24 09:00 | Outpatient (CLI) | payer MEDICARE, OTHER, SELFPAY ==
--- OUTSIDE RECORDS SUMMARY | 2010-09-17 19:00 | XMS_ITS | Continuity of Care Document ---
Author Organization [facility] Address [address] [place] [address] Phone Care Team Providers Care Shipfitter Helper Name Role Phone Conversion MD, Doctor Unavailable Unavailabl e Advance Directives Directive Yes / No Effective Date File Name No Information Encounters Encounter Description Practice Location Reason(s) For Visit Diagnoses Date Provider Providers Copied on Encounter [facility], [address], [place], [place], [address] , tel: [phone] Conversion Department No Information 7 1 Conversion Doctor. [address] [place] [address], [id number], . [facility], [address], [place], [place], [address] , tel: [phone] [facility] GENERAL OSTEOARTHROSIS HYPERLIPIDEMIA NEC/NOSSCREEN MAL NEOP-RECTUM September- 0-200 7 Ramila Moss. Formerly [facility], [facility] [address], [address], [place], [place], [id number], . tel: [phone] [facility], [address], [place], [place], [address] , [place] tel: [phone] Administration CHEST PAIN NECPURE HYPERCHOLESTER OLEM Dec-2 9-200 4 Ramila Moss. [address], [address], [place], [place], [address], [place]. tel: [phone] [facility], [address], [place], [place], [address] , tel: [phone] [facility] CHEST PAIN NOS Dec-2 0-200 4 Ramila Moss. [address], [address], [place], [place], [address], [place]. tel: [phone] [facility], [address], [place], [place], [address] , [place] tel: [phone] [facility] SCREEN-DIABETE S MELLITUSSYMPT FEM CLIMACT STATEASCVD Sep-2 3-200 3 Ramila Moss. [address], [address], [place], [place], [address], [place]. tel: [phone] [facility], [address], [place], [place], [address] , [place] tel: [phone] [facility] ACUTE BRONCHITIS Sep-1 2-200 3 Ramila Moss. [address], [address], [place], [place], [address], [place]. tel: [phone] [facility], [address], [place], [place], [address] , [place] tel: [phone] [facility] BACKACHE NOS Mar- 8-200 1 Ramila Moss. Formerly [facility], [facility] [address], [address], [place], [place], [address], [place]. tel: [phone] [facility], [address], [place], [place], [address] , [place] tel: [phone] [facility] SCREEN MAL NEOP OTH SITE 6-200 0 Ramila Moss. [address], [address], [place], [place], [address], [place]. tel: [phone] [facility], [address], [place], [place], [address] , [place] tel: [phone] [facility] PTOSIS OF EYELID NOSABDMNAL PAIN GENERALIZED September- 2-200 0 Ramila Moss. [address], [address], [place], [place], [address], [place]. tel: [phone] [facility], [address], [place], [place], [address] , [place] tel: [phone] [facility] GENERAL MEDICAL EXAM NOSPALPITATION S 1-199 9 Ramila Moss. [address], [address], [place], [place], [address], [place]. tel: [phone] Family History Family Member Type Diagnosis Age At Onset No Information Payers Payer name Insurance type Covered alliance party ID Authoriza tion(s) No Information Social History Type Description Quantity Date Captured Comments Sex Female Smoking Status No Information Chief Complaint And Reason For Visit No Information Reason For Referral Reason For Referral No Information History Of Present Illness Encounter Date Complaint History Of Prese nt Illness No Information Functional Status Date Functional Assessmen t No Information Instructions Date Instruction Additional Infor mation No Information Assessments Type Assessment Date No Information Patient Care Teams Name Effective Dates (start - stop) Status Members No Information
--- OUTSIDE RECORDS SUMMARY | 2025-01-24 09:20 | XMS_ITS | Encounter Summary ---
Author Organization [facility] Address [address] [place] [address] Care Team Providers Care Tank Assembler Name Role Phone Kristen Graf APRN-MANAGER GREEN Primary Care Provider Encounter Details Date Type Department Care Team (Late st Contact Info) Description 08/28/2024 Telephone [facility] - Pulmonology [address] [place] [address] Jack Milian MD [address] [place] [address] 2L DIV OF PULM/[place] [address] Social History Tobacco Use Types Packs/Day Years [...] Care Team (Late st Contact Info) Description 02/03/2025 1:00 PM CDT Office Visit [facility] - Orthopedics [address] [place] [address] Arabella Aranda, PATimboC [address] [place] [address] 02/18/2025 1:00 AM CDT Clinical Support [facility] - Cardiology [address] [facility] [place] [address] 04/25/2025 11:00 AM STORE GROCERY MERCHANDISER Office Visit [facility] - Geriatrics [address] [place] [phone] Kristen Graf, MEDICAL DOCTOR-MANAGER GREEN [address] [phone] 05/20/2025 1:00 AM STORE GROCERY MERCHANDISER Clinical Support [facility] - Cardiology [address], [address] [phone] 05/22/2025 1:00 PM STORE GROCERY MERCHANDISER Office Visit [facility] - Cardiology [address] [facility], [address] [phone] Bharathi Higuera MD [address] [facility], [address] [address] 08/19/2025 1:00 AM CDT Clinical Support [facility] [address] [facility], [address] [phone] documented as of this encounter Goals Goal [...] on filedocumented in this encounter Care Teams Tank Assembler Relationship Specialty Start Date End Date Kristen Graf, MEDICAL DOCTOR-MANAGER GREEN [address] [address] PCP - General 05/24/21 documented as of this encounter
--- OUTSIDE RECORDS SUMMARY | 2025-01-24 09:20 | XMS_ITS | Clinical Summary ---
Author Organization [facility] Address [address] [facility] [place] [address] Phone Care Team Providers Care Beamer Helper Name Role Phone Minh Thornton MD Primary Care Provider [phone] Allergies No known active allergies Medications CALCIUM CARBONATE (CALCIUM 500 ORAL) Take by mouth. Activ e MULTIVITAMINS WITH FLUORIDE (MULTI-VITAMIN ORAL) Take by mouth. Activ e clobetasol (TEMOVATE) 0.05 % Lotion Apply to affected area. Active XIIDRA 5 % Dropperette 8 Active XARELTO 20 mg Tablet 8 Active vit C/E/Zn/helicopter pilot/lut/z ea/bio/saf (RETAINE VISION ORAL) Take by mouth. [...] Encounters Date Type Department Care Team Description 01/14/2025 External Device Data [facility]CTION Provider, Abstract 12/31/2024 External Device Data [facility] Provider, Abstract 12/18/2024 External Device Data [facility] Provider, Abstract 11/27/2024 External Device Data [facility] Provider, Abstract 11/27/2024 External Device Data [facility] Provider, Abstract 11/27/2024 External Device Data [facility] Provider, Abstract 11/26/2024 External Device Data [facility] Provider, Abstract 10/30/2024 External Device Data [facility] Provider, Abstract 10/29/2024 External Device Data [facility] Provider, Abstract [...] on file Legal Sex Female 3:34 AM LEGAL COLLECTOR Gender Identity Not on file Sexual Orientation Not on file Occupation Industry Job Start Date Job End Date Not on file Not on file Not on file Not on file Last Filed Vital Signs Vital Sign Reading Time Taken Comments Blood Pressure 122/78 03/19/2024 10:45 AM LEGAL COLLECTOR Pulse - - Temperature - - Respiratory Rate - - Oxygen Saturation - - Inhaled Oxygen Concentration - - Weight 73 kg (161 lb) 03/19/2024 10:45 AM LEGAL COLLECTOR Height 167.6 cm (5' 6) 03/19/2024 10:45 AM LEGAL COLLECTOR Body Mass Index 25.99 03/19/2024 10:45 AM LEGAL COLLECTOR Plan of Treatment Health Maintenance Due Date Last Done Comments DTAP/TDAP/TD VACCINES (1 - Tdap) 08/30/1959 ZOSTER VACCINE (1 of 2) 1990 RSV VACCINE (60+ or ) (1 - 1-dose 75+ series) 08/30/2015 OSTEOPOROSIS SCREENING 06/20/2024 3, 06/17/2022, 06/17/2022, Additional history exists INFLUENZA VACCINE (#1) 2024 1, 02/06/2020, 02/27/2018 BREAST CANCER SCREENING 03/14/2025 03/14/20 24, 03/12/2024, [...] [employer] P[employer] Care Teams Beamer Helper Relationship Specialty Start Date End Date Minh Thornton MD PCP - General Internal Medicine 01/01/15
--- OUTSIDE RECORDS SUMMARY | 2025-01-24 09:20 | XMS_ITS | Encounter Summary ---
Author Organization [facility] Health Address [address] [facility] [place] [address] Care Team Providers Care Cover Marker Name Role Phone Minh Thornton MD Primary Care Provider [phone] Kristen Graf [facility] Primary Care Provider Tracie Pritchett MD Primary Care Provider [phone] Kristen Graf APRN-SENIOR CARE SPECIALIST Primary Care Provider Encounter Details Date Type Department Care Team (Late st Contact Info) Description 03/10/2020 Telephone [facility] [address] [place] [address] Kristen Graf TOOTH CUTTER CLUTCH-SENIOR CARE SPECIALIST [address] [phone] Social History Tobacco Use Types Packs/Day Years [...] at your convenience. Patient Call Back number: [phone] documented in this encounter Plan of Treatment Upcoming Encounters Date Type Department Care Team (Late st Contact Info) Description 02/03/2025 1:00 PM CDT [facility] [address] [facility], [place] [address] Arabella Aranda, PATimboC [address] [place] [address] 02/18/2025 1:00 AM CDT Clinical Support [facility] [address] [facility], [place] [address] [place] [address] 04/25/2025 11:00 AM EMPLOYMENT EDUCATIONAL COORD Office Visit [facility] [address] [facility], [place] [address] Kristen Graf, TOOTH CUTTER CLUTCH-SENIOR CARE SPECIALIST [address] [facility] [address] [place] [phone] 05/20/2025 1:00 AM EMPLOYMENT EDUCATIONAL COORD Clinical Support [facility] [address], [facility] [address] [place] [address] 05/22/2025 1:00 PM EMPLOYMENT EDUCATIONAL COORD Office Visit [facility] - Cardiology [address], [facility] [address] [place] [address] Bharathi Higuera MD [address], [facility] [address] [place] [address] 08/19/2025 1:00 AM CDT Clinical Support [facility] - Cardiology [address], [facility] [address] [place] [phone] documented as of this encounter Visit Diagnoses Not on filedocumented in this encounter Care Teams Cover Marker Relationship Specialty Start Date End Date Minh Thornton MD [address] [place] [address] [address] [place] [address] PCP - General 03/02/20 04/26/20 Kristen Graf TOOTH CUTTER CLUTCH-SENIOR CARE SPECIALIST [address] [place] [address] [address] [place] [address] PCP - General 04/27/20 05/19/21 Tracie Pritchett MD [address] [facility] [address] [place] [address] PCP - General Internal Medicine Geriatric Medicine 05/20/21 05/23/21 Kristen Graf TOOTH CUTTER CLUTCH-SENIOR CARE SPECIALIST [address] [address] PCP - General 05/24/21 documented as of this encounter
--- OUTSIDE RECORDS SUMMARY | 2025-01-24 09:20 | XMS_ITS | Encounter Summary ---
Author Organization [facility] Health Address [address] [facility] [place] [address] Care Team Providers Care Surveyor Chain Helper Name Role Phone Kristen Graf APRN-DOCK COORDINATOR Primary Care Provider Reason for Visit * Reason Onset Date Comments Appointment 07/29/2022 Encounter Details Date Type Department Care Team (Late st Contact Info) Description 07/29/2022 Telephone [facility] [address] [place] [address] Dominic Hines MD [address] [place] [address] Appointment Social History Tobacco Use Types Packs/Day [...] Description 02/03/2025 1:00 PM CDT [facility] Visit [facility] [address] [facility], [place] [address] Arabella Aranda PA-C [address] [place] [address] 02/18/2025 1:00 AM CDT Clinical Support [facility] [address] [facility], [facility] [address] [place] [address] 04/25/2025 11:00 AM ADULT PSYCHIATRIST [facility] [address] [facility], [place] [address] Kristen Graf APRN-DOCK COORDINATOR [address] [phone] 05/20/2025 1:00 AM ADULT PSYCHIATRIST Clinical Support [facility] - Cardiology [address] [facility], [address] [phone] 05/22/2025 1:00 PM ADULT PSYCHIATRIST Office Visit [facility] - Cardiology [address] [facility], [address] [phone] Bharathi Higuera MD [address] [facility], [address] [address] 08/19/2025 1:00 AM CDT Clinical Support [facility] - Cardiology [address] [facility], [address] [phone] documented as of this encounter Visit Diagnoses Not on filedocumented in this encounter Care Teams Surveyor Chain Helper Relationship Specialty Start Date End Date Kristen Graf APRN-DOCK COORDINATOR [address] [address] PCP - General 05/24/21 documented as of this encounter
--- OUTSIDE RECORDS SUMMARY | 2025-01-24 09:20 | XMS_ITS | Clinical Summary ---
Author Organization [facility] Address [address] [place] [address] Care Team Providers Care Security Sergeant Name Role Phone Kristen Gra[facility] Primary Care Provider Source Comments [facility],non-owned Affiliates and Associated Physician Practices is amultiple site organization consisting of ambulatory clinics and hospital sitesin [place] and [place]. This disclosure is being madepursuant to the Care Everywhere program and may not contain all information available regarding this patient. Last updated 18.[facility] Allergies No known active allergies Medications * [...] supply. 60 g 4 02/10/20 23 Active cycloSPORINE (Restasis) 0.05 % ophthalmic [...] 180 tablet 3 06/27/19 25 026 Active Xarelto 15 MG tablet TAKE 1 (ONE) TABLET BY MOUTH DAILY WITH FOOD 90 tablet 3 08/20/19 25 Active losartan (Cozaar) 25 MG tabletIndication s:Essential hypertension Take 1.5 (one and one-half) tablets by mouth once daily 135 tablet 3 10/01/19 25 026 Active tiotropium (Spiriva) 18 MCG inhalation capsule Inhale 1 (one) capsule by mouth once daily 09/20/19 25 Active furosemide (Lasix) 20 MG tablet Take 1 (one) tablet by mouth once daily 90 tablet 3 10/11/19 25 Active amoxicillin-clav ulanate (Augmentin) 875-125 MG tabletIndication s:Acute sinusitis, recurrence not specified, unspecified location Take 1 (one) tablet by mouth 2 times daily with morning and evening meal 20 tablet 12/05/19 25 Active hydrALAZINE (Apresoline) 50 MG tabletIndication s:Primary hypertension Take 1 (one) tablet by mouth once daily as needed 90 tablet 3 12/07/19 25 Active Active Problems Patient Care Coordination No te Formatting of this note migh t be different from the original. Pump And Blower Operator - Dr Asaf Ramirez Problem Noted [...] Encounters Date Type Department Care Team Description 01/08/2025 12:00 PM CDT - 01/08/2025 11:59 PM CDT Hospital Encounter [facility] [address] [facility] [place] [address] Razia Diego PA Discharge Disposition: Home or Self Care 01/08/2025 12:00 PM CDT Office Visit [facility] [address] [place] [phone] Razia Diego PA Bilateral primary osteoarthritis of knee (Primary Dx) 01/08/2025 Travel 01/02/2025 Orders Only [facility] [address] [place] [address] [place] [phone] Razia Diego PA Right knee pain, unspecified chronicity 12/06/2024 Refill [facility] [address] [facility] [place] [address] [place] [address] Mani Green RN MEDICATION REFILL 12/04/2024 Orders Only [facility] [address] [place] [address] Kristen Graf, ENOLOGIST-BUSINESS SERVICES SPECIALIST SALES Acute sinusitis, recurrence not specified, unspecified location 11/19/2024 1:10 AM CDT Clinical Support [facility] [address] [facility] [place] [address] [place] [address] SSS (sick sinus syndrome) (HCC) ; Presence of cardiac pacemaker 10/24/2024 Travel from Last 3 Months Immunizations Immunization Administration Dates Next Due AdScore primary monoval ent 12+ yr 0.3mL Purple [...] Sign Reading Time Taken Comments Blood Pressure 114/75 10/18/2024 9:22 AM CDT Pulse 86 10/18/2024 9:22 AM CDT Temperature 36.7 C (98.1 F) 03/28/2024 1:41 PM TUBE AND MANIFOLD BUILDER Respiratory Rate 17 07/19/2024 9:02 AM TUBE AND MANIFOLD BUILDER Oxygen Saturation 93% 10/18/2024 9:22 AM CDT Inhaled Oxygen Concentration - - Weight 69.4 kg (153 lb) 01/08/2025 12:16 PM CDT Height 167.6 cm (5' 6) 01/08/2025 12:16 PM CDT Body Mass Index 24.69 01/08/2025 12:16 PM CDT Plan of Treatment Upcoming Encounters Date Type Department Care Team (Late st Contact Info) Description 02/03/2025 1:00 PM CDT Office Visit [facility] [address] [facility], [place] [address] Arabella Aranda PA-C [address] [place] [address] 02/18/2025 1:00 AM CDT Clinical Support [facility] [address] [facility], [place] [address] [place] [phone] 04/25/2025 11:00 AM TUBE AND MANIFOLD BUILDER Office Visit [facility] [address] [facility], [place] [address] Kristen Graf, ENOLOGIST-BUSINESS SERVICES SPECIALIST SALES [address] [facility] [address] [place] [phone] 05/20/2025 1:00 AM TUBE AND MANIFOLD BUILDER Clinical Support [facility] [address] [facility], [address] [address] 05/22/2025 1:00 PM TUBE AND MANIFOLD BUILDER Office Visit [facility] [address] [facility], [address] [address] Bharathi Higuera MD [address] [facility], [address] [address] 08/19/2025 1:00 AM CDT [facility] [address] [facility], [address] [address] Health Maintenance Due Date Last Done Comments MEDICARE AWV 12 MONTHS 1940 DTAP/TDAP/TD VACCINES (1 - Tdap) 08/30/1959 ZOSTER VACCINE (1 of 2) 1990 Respiratory Syncytial Virus (RSV) Vaccine Pt: or over 60 yrs (1 - 1-dose 75+ series) 08/30/2015 DEPRESSION SCREENING 05/15/2024 07/18/2023, 09/30/2022, 10/15/2021 COVID-19 VACCINE ( season) 2025 01/31/2024, 02/07/2023, 07/01/2022, Additional history exists INFLUENZA VACCINE (#1) 2025 , 01/31/2024, 02/07/2023, Additional history exists BONE DENSITY TESTING Completed 06/17/2022, 10/23/19 13 PNEUMOCOCCAL VACCINE 50+ Completed 01/06/2023, 05/2019 HEPATITIS B VACCINE Aged Out No longe [...] last dose Medical Devices Implanted Type Area Equine Manager Device Identifier Shelf Expiration Date Model / Serial / Lot Lead Cp Nv Pace 52cm Strd Elut Pltn Amada - [id number] Implanted:Qty: 1 on 08/16/2021 by Bharathi Higuera MD at [facility] Right: Ventricle [employer] 04/13/2023 5076-52 / [id number] / Description:RV Lead Lead Cp Nv Pace 45cm Strd Elut Pltn Amada - [id number] Implanted:Qty: 1 on 08/16/2021 by Bharathi Higuera MD at [facility] Right: Atrium [employer] 05/06/2023 5076-45 / [id number] / Description:RA lead Pacemkr Rosette Wirelessly Crd - [id number] Implanted:Qty: 1 on 08/16/2021 by Bharathi Higuera MD at [facility] Right: Chest [employer] 01/09/2023 [id number] / [id number] / Description:ICD Procedures Procedure Name Priority Date/Time Associated Diagnosis Comments XR KNEE RIGHT 4VW OR MORE Routine 01/08/2025 12:15 PM CDT Right knee pain, unspecified chronicity TX PM/ICD REMOTE TECH SERV Routine 12/15/2024 2:23 PM CDT SSS (sick sinus syndrome) (HCC) Presence of cardiac pacemaker TX PM DEVICE INTERROGATE REMOTE Routine 12/15/2024 2:23 PM CDT SSS (sick sinus syndrome) (HCC) Presence of cardiac pacemaker CARDIAC PROCEDURE ORDER 11/18/2024 DEXA BONE DENSITY AXIAL SKELETON Routine 06/17/2022 1:22 PM TUBE AND MANIFOLD BUILDER Primary osteoarthritis involving multiple joints Osteoporosis, unspecified osteoporosis type, unspecified pathological fracture presence from Last 3 Months or Most Recently Relevant to Health Maintenance Results * XR Knee Right 4Vw or More (01/08/2025 12:15 PM CDT) Anatomical Region Laterality Modality Lower Extremity Radiographic Kathleen ging 01/08/2025 12:1 6 PM CDT Impressions 01/08/2025 12:18 PM CDT IMPRESSION: Osteoarthritis, severe in the lateral compartment, progressed. > Interpreting Provider: Gil Baig MD on 01/08/2025 12:18 PM Narrative 01/08/2025 12:18 PM CDT PROCEDURE: XR KNEE RIGHT 4VW OR MORE DATE/TIME OF EXAM: 01/08/2025 12:15 PM CLINICAL INFORMATION: None relevant/not provided if blank. Indication: M25.561: Right knee pain, unspecified chronicity Additional History: COMPARISON: 10/22/2021. FINDINGS: No fracture or dislocation is present. There is osteoarthritis, severe in the lateral compartment where there is [id number]-mu-abdp contact. There is increase of the usual valgus carrying angle and mild widening of the medial compartment joint space. A small effusion is noted. Procedure Note Gil Baig MD - 01/08/2025 PROCEDURE: XR KNEE RIGHT 4VW OR MORE DATE/TIME OF EXAM: 01/08/2025 12:15 PM CLINICAL INFORMATION: None relevant/not provided if blank. Indication: M25.561: Right knee pain, unspecified chronicity Additional History: COMPARISON: 10/22/2021. FINDINGS: No fracture or dislocation is present. There is osteoarthritis, severein the lateral compartment where there is clrj-ng-nbdo contact. There is increase of the usual valgus carrying angle and mild widening of themedial compartment joint space. A small effusion is noted. IMPRESSION: Osteoarthritis, severe in the lateral compartment, progressed. > Interpreting Provider: Gil Baig MD on 01/08/2025 12:18 PM us [facility] ORDERABLES Fi nal Result * TX PM DEVICE INTERROGATE REMOTE, TX PM/ICD REMOTE TECH SERV (12/15/2024 2:23 PM CDT) Narrative Bharathi Higuera MD - 12/15/2024 2:23 PM CDT Bharathi Higuera MD 12/15/2024 2:24 PM Dear Salome Méndez, I reviewed the remote interrogation of your device. Your device's sensing and capture thresholds are appropriate and stable. Lead impedances for your device: Atrial lead: 361 ohms RV lead: 418 ohms You are currently paced: Atrial: 96.7 % Ventricle: <0.1 % During this most recent monitored period (10/10/2024 to 11/18/2024), you had no sustained arrhythmias. The estimated remaining battery life for your device is 8.0 years. Device function is normal, and no programming changes are required. Please call our offices if you have any further questions. Sincerely, Bharathi Higuera 12/15/2024 us Bharathi Higuera MD PROCEDURE/MINOR SURGICAL ORDERAB LES Final Result * CARDIAC PROCEDURE ORDER (11/18/2024) Narrative 11/18/2024 Ordered by an unspecified provider. us Scanned Document CARDIAC SERVICES ORDERABLES Fin al Result * BONE DENSITY AXIAL SKELETON(1OR MORE SITES)[id number] (06/17/2022 1:22 PM TUBE AND MANIFOLD BUILDER) Anatomical Region Laterality Modality Other 06/20/2022 5:28 PM TUBE AND MANIFOLD BUILDER Narrative 06/20/2022 5:29 PM TUBE AND MANIFOLD BUILDER PROCEDURE: DEXA BONE DENSITY AXIAL SKELETON, DATE/TIME OF EXAM: 06/17/2022 1:23 PM, LOCATION [facility] 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 [...] SKELETON, DATE/TIME OF EXAM:06/17/2022 1:23 PM, LOCATION [facility] 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 [...] DO on 06/20/2022 5:29 PM Kristen Graf ENOLOGIST-BUSINESS SERVICES SPECIALIST SALES DEXA ORDERABLES Final R esult from Last 3 Months or Most Recently Relevant to Health Maintenance Insurance MEDICARE [facility] MEDICARE [facility] ASS[facility] OF [facility] Advance Directives * Full Code (Latest Code Status on File) Date Activated Date Inactivated Comments 07/03/2021 6:20 PM 07/04/2021 5:26 PM Care Teams Security Sergeant Relationship Specialty Start Date End Date Kristen Graf, ENOLOGIST-BUSINESS SERVICES SPECIALIST SALES [address] [address] PCP - General 05/24/21
--- OUTSIDE RECORDS SUMMARY | 2025-01-24 09:20 | XMS_ITS | Encounter Summary ---
Author Organization [facility] Health Address [address] [facility] [place] [address] Care Team Providers Care Network Firewall Engineer Name Role Phone Kristen Graf APRNPURNIMA Primary Care Provider Tracie Pritchett MD Primary Care Provider [phone] Kristen Gra[facility] Primary Care Provider Encounter Details Date Type Department Care Team (Late st Contact Info) Description 10/30/2020 Telephone [facility] [address] [place] [address] Ubaldo Salgado MD [address] [place] [address] Social History Tobacco Use Types Packs/Day Years [...] Description 02/03/2025 1:00 PM CDT Office Visit [facility] - Orthopedics [address] [facility], [place] [address] Arabella Aranda PA-C [address] [place] [address] 02/18/2025 1:00 AM CDT Clinical Support [facility] - Cardiology [address] [address] 04/25/2025 11:00 AM STONE UNLOADER Office Visit [facility] - Geriatrics [address] [place] [address], [place] [address] Kristen Graf, HARDWOOD FLOOR REFINISHER-RETAIL OFFICE MANAGER [address] [address] 05/20/2025 1:00 AM STONE UNLOADER Clinical Support [facility] - Cardiology [address] [address] 05/22/2025 1:00 PM STONE UNLOADER Office Visit [facility] - Cardiology [address] [address] Bharathi Higuera MD [address] [address] 08/19/2025 1:00 AM CDT Clinical Support [facility] - Cardiology [address] [facility], [address] [place] [address] documented as of this encounter Visit Diagnoses Not on filedocumented in this encounter Care Teams Network Firewall Engineer Relationship Specialty Start Date End Date Kristen Graf APRN-RETAIL OFFICE MANAGER PCP - General 04/27/20 05/19/21 Tracie Pritchett MD [address] [address] [place], [place] [id number] PCP - General Internal Medicine Geriatric Medicine 05/20/21 05/23/21 Kristen Graf, HARDWOOD FLOOR REFINISHER-RETAIL OFFICE MANAGER [address] [facility] [address] [place] [address] PCP - General 05/24/21 documented as of this encounter
--- OUTSIDE RECORDS SUMMARY | 2025-01-24 09:21 | XMS_ITS | Patient Health Record ---
Author Organization [facility] Address [address] [place], [place] [id number] Care Team Providers Care Certified Credit Counselor Name Role Phone CRISTAL DELGADO Unavailable [phone] Minh Thornton Unavailable Unavailable Reason For Referral No Information Medications Medication SIG (Take, Route, Frequency, Duration) Notes Start Date End Date Status Aspirin 81 MG Oral aspirin 81 MG Ch ewable TabletOriginal Medicationaspirin 81 MG Chewable Tablet 01/08/2016 Active Lisinopril 20 MG Oral Tablet ORAL lisinopril 20 MG Oral TabletOriginal Medicationlisinopril 20 MG Oral Tablet *Reorder from [employer] for eRx and Interaction Alerts* 01/08/2016 Active calcium carbonate 1250 MG Oral Tablet ORAL calcium carbonate 1250 MG Oral TabletOriginal Medicationcalcium carbonate 1250 MG Oral Tablet *Reorder from [employer] for eRx and Interaction Alerts* 01/08/2016 Active Plan Of Treatment No Information Insurance Providers Payer Name Payer Address Payer Phone Subscriber Number Group Number Insured Name Patient Relationship to Insured Coverage Start Date Coverage End Date Medicare Part B [place] [address] [place] [id number] SALOME MÉNDEZ Self - patient is the insured LEANDRO [address] [place] [facility] [place] [phone] [id number] SALOME MÉNDEZ Self - patient is the insured
--- NOTE | 2025-02-07 18:27 | WPDPFTINT ---
PFT Procedure Performed PFT Procedure Performed Spirometry with Pre/Post Bronchodilator Plethysmography (Lung Vol) Diffusing Cap (DLCO) Flow Vol Loop PFT Interpretation DOS:01/24/2025 REQUESTING: Minh Casas MD REASON FOR TESTING: shortness of breath PULMONARY FUNCTION TESTS Results are reliable and reproducible. Repeatability of spirometry FEV1 maneuver pre and post bronchodilator is Grade A. Bart: GLI 2012 reference equations were used. Spirometry: The pre-bronchodilator FEV1 is 1.51 L, 77%. The pre-bronchodilator FVC is 2.07 L, 79%. The FEV1/FVC ratio is 73%. After bronchodilator, the FEV1 is 1.52 L, 77%, +1%. After bronchodilator, the FVC is 2.07 L, no change. The FEV1/FVC ratio is 74%. Lung volumes: The total lung capacity is 4.67 L. 87%. The functional residual capacity is 3.18 L, 102%. The residual volume is 2.22 L, 86%. The RV/TLC is 48%. Airway resistance is increased. Diffusion: DLCO is 9.8, 50%. The DLCO/VA is 2.97, 75%. Flow volume loop: The flow volume loop is normal. IMPRESSION: Normal spirometry without change following bronchodilator, normal lung volumes, moderate diffusion impairment which normalizes for alveolar volume. Compared to 10/04/2024, some of the current values have improved. Previous FEV1 was 1.40 L, 74%, similar now, 1.51 L, 77%. FVC was 1.79 L , 71%, now 2.07 L, 79% which is in the normal range and significantly higher. FEV1/FVC ratio was 78%, now 73%. TLC was 3.85 L, 74%, now normal, TLC is 4.67 L, 87%. The restrictive impairment is no longer present. FRC was 2.65 L, 88%, now 3.18 L, 102%. RV, DLCO, DLCO/VA are similar to the prior study. Liseth Angel MD
== END 2025-01-24 09:01 | disposition home or self-care (01) ==
PROVIDERS: PCP Nurse Practitioner Family; Visit Provider Internal Medicine Pulmonary Disease
DX: J98.4 Other disorders of lung (principal); J81.1 Chronic pulmonary edema
CPT/HCPCS: 94060; 94726; 94729

== ENCOUNTER 2025-02-11 11:12 | Outpatient (CLI) | payer MEDICARE, OTHER, SELFPAY ==
--- NOTE | ~2025-02-11 | CT_ITS ---
EXAMINATION:CT diagnostic chest wo con DATE: 02/11/2025 11:33 INDICATION: Chronic pulmonary edema. TECHNIQUE: Computed tomography (CT) of the chest was performed without intravenous contrast. Automated exposure control and iterative reconstruction technique were employed. The dose-length product (DLP) was 181.53 mGy-cm. COMPARISON: Chest CT 07/31/2024 FINDINGS: There is stable scarring at the lung apices. There is mild bronchiectasis in right middle lobe and lingula. There is mild atelectasis in right middle lobe and lingula. There are a few 2-3 mm nodules in the lungs, likely benign. No pleural effusion. There are nodules in the thyroid measuring u p to 2.2 cm on the right. The heart size is normal. There is a right chest wall pacer with leads in the right atrium and right ventricle. No pericardial effusion. There is mild thoracic spondylosis. There is mild chronic anterior wedging of multiple vertebral bodies. There is mild thoracic spondylosis. IMPRESSION: 1. Mild chronic lung disease. 2. Multinodular goiter. Consider thyroid ultrasound for risk stratification if clinically indicated given the patient's age. Reviewed, dictated and finalized at location E.
== END 2025-02-11 11:13 | disposition home or self-care (01) ==
LOC: MICIMG 11:15
PROVIDERS: Visit Provider Nurse Practitioner Family
DX: J81.1 Chronic pulmonary edema (principal); J98.4 Other disorders of lung; J44.9 Chronic obstructive pulmonary disease, unspecified; E04.2 Nontoxic multinodular goiter
CPT/HCPCS: 71250

== ENCOUNTER 2025-03-06 01:50 | Emergency (ER) | payer MEDICARE, OTHER, SELFPAY ==
--- NOTE | ~2025-03-06 | XR_ITS ---
Examination: XR chest 2V Clinical History: dyspnea Comparison: 08/08/2024 Technique: PA and Lateral Findings: Right pacemaker. Cardiomediastinal silhouette normal size and configuration. Lungs clear. Hyperinflation. No acute bony abnormality. IMPRESSION: 1. No acute cardiopulmonary findings. Reviewed, dictated and finalized at location R.
--- OUTSIDE RECORDS SUMMARY | 2025-03-06 01:54 | XMS_ITS | Encounter Summary ---
Author Organization [facility] Health Address [address] [place] [address] Care Team Providers Care Boarding Machine Operator Name Role Phone Kristen Graf [facility] Primary Care Provider Tracie Pritchett MD Primary Care Provider [phone] Kristen Graf [facility] Primary Care Provider Encounter Details Date Type Department Care Team (Late st Contact Info) Description 10/30/2020 Telephone [facility] [address] [place] [address] Ubaldo Salgado MD [address] [place] [address] Social History Tobacco Use Types Packs/Day Years [...] this encounter Patient Instructions * Patient Instructions* ChangZoë - 10/30/2020 3:53 PM CDT Patient called and is asking what happens during her visit with ? She wants to know if she will be having a 6 minute test? Please call her and explain. Thank you Gayla documented in this encounter Plan of Treatment Upcoming Encounters Date Type Department Care Team (Late st Contact Info) Description 03/28/2025 1:40 PM BANKING SPECIALIST Office Visit [facility] Orthopedics [address] [place] [phone] Ana Joy, WEB COORDINATOR-TRENCH PIPE LAYER HELPER [address] [place] [phone] 04/18/2025 11:45 AM BANKING SPECIALIST [facility] [address] [place] [phone] Arabella Aranda, EVELINA [address] [place] [address] 04/25/2025 11:00 AM BANKING SPECIALIST Office Visit [facility] Geriatric[facility] [address] [place] [phone] Kristen Graf, WEB COORDINATOR-TRENCH PIPE LAYER HELPER [address] [phone] 05/20/2025 1:00 AM BANKING SPECIALIST Clinical Support [facility] - Cardiology [address] [facility], [address] [phone] 05/22/2025 1:00 PM BANKING SPECIALIST Office Visit [facility] [address] [facility], [facility] [address] [place] [address] Bharathi Higuera MD [address], [facility] [address] [place] [address] 08/19/2025 1:00 AM CDT Clinical Support [facility] - Cardiology [address] [facility], [facility] [address] [place] [phone] documented as of this encounter Visit Diagnoses Not on filedocumented in this encounter Care Teams Boarding Machine Operator Relationship Specialty Start Date End Date Kristen Graf APRN-TRENCH PIPE LAYER HELPER PCP - General 04/27/20 05/19/21 Tracie Pritchett MD [address] [facility] [facility] [address] [place] [address] PCP - General Internal Medicine Geriatric Medicine 05/20/21 05/23/21 Kristen Graf APRN-TRENCH PIPE LAYER HELPER [address] [phone] PCP - General 05/24/21 documented as of this encounter
--- OUTSIDE RECORDS SUMMARY | 2025-03-06 01:54 | XMS_ITS | Encounter Summary ---
Author Organization [facility] Health Address [address] [facility] [place] [address] Care Team Providers Care Refined Syrup Operator Name Role Phone Homar Kristen Baptiste MOLDING PLASTERER-CAGE CLERK Primary Care Provider Reason for Visit * Reason Onset Date Comments Appointment 07/29/2022 Encounter Details Date Type Department Care Team (Late st Contact Info) Description 07/29/2022 Telephone [facility] [address] [place] [address] Dominic Hines MD [address] [place] [address] Appointment Social History Tobacco Use Types Packs/Day [...] st Contact Info) Description 03/28/2025 1:40 PM LEATHER REPAIRER Office Visit [facility] [address] [place] [phone] Ana Joy, MOLDING PLASTERER-CAGE CLERK [address] [place] [phone] 04/18/2025 11:45 AM LEATHER REPAIRER Office Visit [facility] [address] [place] [phone] Arabella Aranda PA-C [address] [place] [address] 04/25/2025 11:00 AM LEATHER REPAIRER Office Visit [facility] - Geriatrics [address] [place] [address], [place] [phone] Kristen Graf, MOLDING PLASTERER-CAGE CLERK [address] [place] [phone] 05/20/2025 1:00 AM LEATHER REPAIRER Clinical Support [facility] - Cardiology [address] [place] [phone] 05/22/2025 1:00 PM LEATHER REPAIRER Office Visit [facility] - Cardiology [address] [place] [phone] Bharathi Higuera MD [address] [place] [phone] 08/19/2025 1:00 AM CDT Clinical Support [facility] - Cardiology [address] [place] [phone] documented as of this encounter Visit Diagnoses Not on filedocumented in this encounter Care Teams Refined Syrup Operator Relationship Specialty Start Date End Date Kristen Graf, JAYME-CAGE CLERK [address] [place] [phone] PCP - General 05/24/21 documented as of this encounter
--- OUTSIDE RECORDS SUMMARY | 2025-03-06 01:54 | XMS_ITS | Encounter Summary ---
Author Organization [facility] Health Address [address] [facility] [place] [address] Care Team Providers Care Metal Extrusion Supervisor Name Role Phone Kristen Graf APRN-CLINICAL STAFF EDUCATOR Primary Care Provider Encounter Details Date Type Department Care Team (Late st Contact Info) Description 08/28/2024 Telephone [facility] [address] [place] [address], [place] [phone] Jack Milian MD [address] [place] [address] 2L DIV OF PULM/CRITICAL CARE [place], [place] [phone] Social History Tobacco Use Types Packs/Day Years [...] st Contact Info) Description 03/28/2025 1:40 PM LABELER Office Visit [facility] - Orthopedics [address] [place] [phone] Ana Joy, TIRE CHANGER-CLINICAL STAFF EDUCATOR [address] [place] [phone] 04/18/2025 11:45 AM LABELER Office Visit [facility] [address] [place] [phone] Arabella Aranda PA-C [address] [place] [address] 04/25/2025 11:00 AM LABELER Office Visit [facility] [address] [facility], [place] [phone] Kristen Graf APRN-CNP [address] [phone] 05/20/2025 1:00 AM LABELER Clinical Support [facility] - Cardiology [address] [facility], [address] [phone] 05/22/2025 1:00 PM LABELER Office Visit [facility] - Cardiology [address] [facility], [address] [phone] Bharathi Higuera MD [address] [facility], [address] [address] 08/19/2025 1:00 AM CDT Clinical Support [facility] - Cardiology [address] [facility], [address] [phone] documented as of this encounter Goals Goal [...] on filedocumented in this encounter Care Teams Metal Extrusion Supervisor Relationship Specialty Start Date End Date Kristen Graf, JEFF [address] [phone] PCP - General 05/24/21 documented as of this encounter
--- OUTSIDE RECORDS SUMMARY | 2025-03-06 01:54 | XMS_ITS | Encounter Summary ---
Author Organization [facility] Health Address [address] [place] [address] Care Team Providers Care Inside Sales Professional Name Role Phone Kristen Graf Primary Care Provider Encounter Details Date Type Department Care Team (Late st Contact Info) Description 02/12/2025 Results Follow-Up [facility] Kristen Graf APRN-CNP [address] [phone] Social History Tobacco Use Types Packs/Day Years [...] st Contact Info) Description 03/28/2025 1:40 PM CALL WORKER Office Visit [facility] [address] [place] [phone] Ana Joy, ANTIQUE REFINISHER-RECLAMATION ENGINEER [address] [place] [phone] 04/18/2025 11:45 AM CALL WORKER Office Visit [facility] [address] [place] [phone] Arabella Aranda PA-C [address] [place] [phone] 04/25/2025 11:00 AM CALL WORKER Office Visit [facility] [address] [place] [phone] Kristen Graf, ANTIQUE REFINISHER-RECLAMATION ENGINEER [address] [place] [address] 05/20/2025 1:00 AM CALL WORKER Clinical Support [facility] - Cardiology [address], [address] [phone] 05/22/2025 1:00 PM CALL WORKER Office Visit [facility] - Cardiology [address], [address] [phone] Bharathi Higuera MD [address] [facility], [address] [address] 08/19/2025 1:00 AM CDT Clinical Support [facility] - Cardiology [address] [facility], [address] [phone] documented as of this encounter Goals Goal [...] on filedocumented in this encounter Care Teams Inside Sales Professional Relationship Specialty Start Date End Date Krisetn Graf, ANTIQUE REFINISHER-RECLAMATION ENGINEER [address] [place] [phone] PCP - General 05/24/21 documented as of this encounter
--- OUTSIDE RECORDS SUMMARY | 2025-03-06 01:54 | XMS_ITS | Clinical Summary ---
Author Organization [facility] Address [address] [place] [address] Care Team Providers Care Job Lithographer Name Role Phone HomarKristen APRN-GROUP FITNESS ASSISTANT DEPARTMENT HEAD Primary Care Provider Source Comments [facility],non-owned Affiliates and Associated Physician Practices is amultiple site organization consisting of ambulatory clinics and hospital sitesin [place], [place], [place] and [place]. This disclosure is being madepursuant to the Care Everywhere program and may not contain all information available regarding this patient. Last updated 18.[facility] Allergies No known active allergies Medications * [...] morning and evening meal 20 tablet 12/05/19 Active Additional Information Patient not taking.Reported on 02/14/2025 hydrALAZINE (Apresoline) 50 MG tabletIndication s:Primary hypertension Take 1 (one) tablet by mouth once daily as needed 90 tablet 3 12/07/19 25 Active Active Problems Patient Care Coordination No te Formatting of this note migh t be different from the original. Friction Saw Operator - Dr Asaf Ramirez Problem Noted [...] Encounters Date Type Department Care Team Description 02/27/2025 10:43 AM CDT - 02/27/2025 11:59 PM CDT Hospital Encounter [facility] [address] [place] [phone] Ana Joy, SOLDERING MACHINE SETTER-GROUP FITNESS ASSISTANT DEPARTMENT HEAD Discharge Disposition: Home or Self Care 02/27/2025 Telephone [facility] [address] [place] [address] Ana Joy, SOLDERING MACHINE SETTER-GROUP FITNESS ASSISTANT DEPARTMENT HEAD Follow-up 02/21/2025 1:00 PM CDT Office Visit [facility] - Orthopedics [address] [place] [address], [place] [address] Ana Joy, JAYME-PURNIMA Closed compression fracture of L4 lumbar vertebra with routine healing, subsequent encounter (Primary Dx); Post-menopausal; Fatigue, unspecified type; Vitamin D deficiency 02/21/2025 Travel 02/14/2025 11:54 AM CDT - 02/14/2025 11:59 PM CDT Hospital Encounter [facility] [address] [facility] [place] [address] Arabella Aranda PA-C Discharge Disposition: Home or Self Care 02/14/2025 11:30 AM CDT Office Visit [facility] - Orthopedics [address] [place] [address], [place] [phone] Arabella Aranda PA-C Sagittal plane imbalance (Primary Dx); Coronal plane imbalance; Degenerative scoliosis in adult patient; Closed compression fracture of L4 lumbar vertebra with routine healing, subsequent encounter 02/14/2025 Travel 02/13/2025 Orders Only [facility] [address] [place] [phone] Arabella Aranda PA-C Back pain, unspecified back location, unspecified back pain laterality, unspecified chronicity 02/12/2025 Results Follow-Up ASTRID Kristen Hester APRN-PURNIMA 01/08/2025 12:00 PM CDT - 01/08/2025 11:59 PM CDT Hospital Encounter [facility] [address] [facility] [place] [address] Razia Diego PA Discharge Disposition: Home or Self Care 01/08/2025 12:00 PM CDT Office Visit [facility] [address] [place] [phone] Razia Diego PA Bilateral primary osteoarthritis of knee (Primary Dx) 01/08/2025 Travel 01/02/2025 Orders Only [facility] [address] [facility], [place] [phone] Razia Diego PA Right knee pain, unspecified chronicity 12/06/2024 Refill [facility] Card[facility] [address] [facility], [address] [place] [address] Mani Green, HOUSEKEEPING COORDINATOR REFILL 12/04/2024 Orders Only [facility] Geriatric[facility] [address] [place] [address] Kristen Graf, SOLDERING MACHINE SETTER-GROUP FITNESS ASSISTANT DEPARTMENT HEAD Acute sinusitis, recurrence not specified, unspecified location from Last 3 Months Immunizations Immunization Administration Dates Next Due ICU Metrix primary monoval ent 12+ yr 0.3mL Purple [...] 36.7 C (98.1 F) 03/28/2024 1:41 PM JINRIKISHA DRIVER Respiratory Rate 17 07/19/2024 9:02 AM JINRIKISHA DRIVER Oxygen Saturation 93% 10/18/2024 9:22 AM CDT Inhaled Oxygen Concentration - - Weight 66.7 kg (147 lb) 02/14/2025 12:18 PM CDT Height 167.6 cm (5' 6) 01/08/2025 12:16 PM CDT Body Mass Index 23.73 01/08/2025 12:16 PM CDT Plan of Treatment Upcoming Encounters Date Type Department Care Team (Late st Contact Info) Description 03/28/2025 1:40 PM JINRIKISHA DRIVER Office Visit [facility] - Orthopedics [address] [place] [phone] Ana Joy, SOLDERING MACHINE SETTER-GROUP FITNESS ASSISTANT DEPARTMENT HEAD [address] [place] [phone] 04/18/2025 11:45 AM JINRIKISHA DRIVER [facility] [address] [place] [phone] Arabella Aranda PA-C [address] [place] [phone] 04/25/2025 11:00 AM JINRIKISHA DRIVER Office Visit [facility] [address] [place] [phone] Kristen Graf, SOLDERING MACHINE SETTER-GROUP FITNESS ASSISTANT DEPARTMENT HEAD [address] [place] [phone] 05/20/2025 1:00 AM JINRIKISHA DRIVER [facility] [address] [facility], [address] [phone] 05/22/2025 1:00 PM JINRIKISHA DRIVER Office Visit [facility] - Cardiology [address] [facility], [address] [phone] Bharathi Higuera MD [address] [facility], [address] [address] 08/19/2025 1:00 AM CDT Clinical Support [facility] - Cardiology [address] [facility], [address] [phone] Health Maintenance Due Date Last Done Comments MEDICARE AWV 12 MONTHS 1940 DTAP/TDAP/TD VACCINES (1 - Tdap) 08/30/1959 ZOSTER VACCINE (1 of 2) 1990 Respiratory Syncytial Virus (RSV) Vaccine Pt: or over 60 yrs (1 - 1-dose 75+ series) 08/30/2015 DEPRESSION SCREENING 05/15/2024 07/18/2023, 09/30/2022, 10/15/2021 COVID-19 VACCINE ( season) 2025 01/31/2024, 02/07/2023, 07/01/2022, Additional history exists BONE DENSITY TESTING Completed 06/17/2022, 10/23/19 13 PNEUMOCOCCAL VACCINE 50+ Completed 01/06/2023, 100 05/2019 INFLUENZA VACCINE Completed 02/18/2025, , 01/31/2024, Additional history exists HEPATITIS B VACCINE Aged [...] last dose Medical Devices Implanted Type Area Android Programmer Device Identifier Shelf Expiration Date Model / Serial / Lot Lead Cp Nv Pace 52cm Strd [address]tn Amada - [id number] Implanted:Qty: 1 on 08/16/2021 by Bharathi Higuera MD at [facility] Right: Ventricle [employer] 04/13/2023 5076-52 / [id number] / Description:RV Lead Lead Cp Nv Pace 45cm Strd Elut Pltn Amada - [id number] Implanted:Qty: 1 on 08/16/2021 by Bharathi Higuera MD at [facility] Right: Atrium [employer] 05/06/2023 5076-45 / [id number] / Description:RA lead Pacemkr Rosette Wirelessly Crd - [id number] Implanted:Qty: 1 on 08/16/2021 by Bharathi Higuera MD at [facility] Right: Chest [employer] 01/09/2023 [id number] / [id number] / Description:ICD Procedures Procedure Name Priority Date/Time Associated Diagnosis Comments COMPREHENSIVE METABOLIC PANEL Routine 02/27/2025 11:10 AM CDT Closed compression fracture of L4 lumbar vertebra with routine healing, subsequent encounter Post-menopausal Fatigue, unspecified type TSH Routine 02/27/2025 11:10 AM CDT Closed compression fracture of L4 lumbar vertebra with routine healing, subsequent encounter Post-menopausal Fatigue, unspecified type VITAMIN D 25-HYDROXY Routine 02/27/2025 11:10 AM CDT Closed compression fracture of L4 lumbar vertebra with routine healing, subsequent encounter Post-menopausal Fatigue, unspecified type MAGNESIUM BLOOD Routine 02/27/2025 11:10 AM CDT Closed compression fracture of L4 lumbar vertebra with routine healing, subsequent encounter Post-menopausal Fatigue, unspecified type PHOSPHORUS BLOOD Routine 02/27/2025 11:1 0 AM CDT Closed compression fracture of L4 lumbar vertebra with routine healing, subsequent encounter Post-menopausal Fatigue, unspecified type CBC W AUTO DIFFERENTIAL Routine 02/27/2025 11:10 AM CDT Closed compression fracture of L4 lumbar vertebra with routine healing, subsequent encounter Post-menopausal Fatigue, unspecified type PTH INTACT W/O CALCIUM Routine 02/27/2025 11:10 AM CDT Closed compression fracture of L4 lumbar vertebra with routine healing, subsequent encounter Post-menopausal Fatigue, unspecified type XR SPINE ENTIRE 2 OR 3VW Routine 02/14/2025 12:06 PM CDT Back pain, unspecified back location, unspecified back pain laterality, unspecified chronicity IMAGING/RADIOLOGY/XRA Y RESULTS ORDER 02/11/2025 XR KNEE RIGHT 4VW OR MORE Routine 01/08/2025 12:15 PM CDT Right knee pain, unspecified chronicity SD PM/ICD REMOTE TECH SERV Routine 12/15/2024 2:23 PM CDT SSS (sick sinus syndrome) (HCC) Presence of cardiac pacemaker SD PM DEVICE INTERROGATE REMOTE Routine 12/15/2024 2:23 PM CDT SSS (sick sinus syndrome) (HCC) Presence of cardiac pacemaker DEXA BONE DENSITY AXIAL SKELETON Routine 06/17/2022 1:22 PM JINRIKISHA DRIVER Primary osteoarthritis involving multiple joints Osteoporosis, unspecified osteoporosis type, unspecified pathological fracture presence from Last 3 Months or Most Recently Relevant to Health Maintenance Results * PTH INTACT ([facility]) (02/27/2025 11:10 AM CDT) PTH Intact 63.9 8.0 - 77.0 pg/mL 02/27/2025 12:15 PM CDT [facility] Blood BLOOD SPECIMEN / Unknown Lab Venipuncture / Unknown 02/27/2025 11:10 AM CDT 02/27/2025 11:43 AM CDT Ana Joy SOLDERING MACHINE [facility] - CHE[facility]Y ORDERAB LES Final Result [address] [address], [place] [phone] * VITAMIN D 25-HYDROXY (02/27/2025 11:10 AM CDT) Pathologist [facility] Vitamin D, 25 Hydroxy 39.0 30.0 - 80.0 ng/mL 02/27/2025 12:30 PM CDT [facility] Comment: The recommendations for 25-Hydroxy Vitamin D clinical decision points are as follows: Deficient: <20.0 ng/mL Insufficient: 20.0 - 29.9 ng/mL Sufficient: 30.0 - 100.0 ng/mL Potential Toxicity: >100 ng/mL Reference: The Endocrine Society Clinical Practice Guidelines. 2011 If the 25-Hydroxy Vitamin D results are inconsitent with clinical evidence, it is recommended that follow-up testing using a method such as LC/MS/MS be performed to confirm the result. Blood BLOOD SPECIMEN / Unknown Lab Venipuncture / Unknown 02/27/2025 11:10 AM CDT 02/27/2025 11:43 AM CDT Ana Joy SOLDERING MACHINE SETTER-[facility] - CHEMISTRY ORDERAB LES Final Result [address] [address], [place] [phone] * CBC W/ DIFFERENTIAL (02/27/2025 11:10 AM CDT) Pathologist [facility] WBC 8.3 4.0 - 10.7 x10E9/L 02/27/2025 11:49 AM [facility] RBC Count 3.92 3.90 - 5.20 x10E12/L 02/27/2025 11:49 AM [facility] Hemoglobin 12.5 11.9 - 15.8 g/dL 02/27/2025 11:49 AM [facility] Hematocrit 37.5 34.8 - 46.1 % 02/27/2025 11:49 AM [facility] MCV 95.7 80.0 - 98.0 fL 02/27/2025 11:49 AM [facility] MCH 31.9 26.7 - 33.6 pg 02/27/2025 11:49 AM [facility] MCHC 33.3 31.7 - 36.3 g/dL 02/27/2025 11:49 AM [facility] RDW-CV 13.1 11.3 - 14.8 % 02/27/2025 11:49 AM [facility] Platelet Count 198 150 - 420 x10E9/L 02/27/2025 11:49 AM [facility] MPV 9.2 7.8 - 11.4 fL 02/27/2025 11:49 AM [facility] Neutrophil % 64.8 41.0 - 74.0 % 02/27/2025 11:49 AM [facility] Lymphocyte % 25.0 17.0 - 47.0 % 02/27/2025 11:49 AM [facility] Monocyte % 8.5 3.0 - 11.0 % 02/27/2025 11:49 AM [facility] Eosinophil % 1.1 0.0 - 7.0 % 02/27/2025 11:49 AM [facility] Basophil % 0.4 0.0 - 1.6 % 02/27/2025 11:49 AM [facility] Immature Granulocytes % 0.2 0.0 - 1.0 % 02/27/2025 11:49 AM [facility] Neutrophil Absolute 5.35 1.60 - 7.50 x10E9/L 02/27/2025 11:49 AM [facility] Lymphocyte Absolute 2.06 1.00 - 4.40 x10E9/L 02/27/2025 11:49 AM [facility] Monocyte Absolute 0.70 0.15 - 1.00 x10E9/L 02/27/2025 11:49 AM [facility] Eosinophil Absolute 0.09 0.00 - 0.60 x10E9/L 02/27/2025 11:49 AM [facility] Basophil Absolute 0.03 0.00 - 0.13 x10E9/L 02/27/2025 11:49 AM [facility] Blood BLOOD SPECIMEN / Unknown Lab Venipuncture / Unknown 02/27/2025 11:10 AM CDT 02/27/2025 11:43 AM T us Ana Joy SOLDERING MACHINE SETTER-GROUP FITNESS ASSISTANT DEPARTMENT HEAD LAB - HEMATOLOGY ORDERA BLES Final Result [facility] [address] [place] [phone], [facility] [phone] * (ABNORMAL) COMPREHENSIVE METABOLIC PANEL (02/27/2025 11:10 AM T) BUN 24 7 - 26 mg/dL 02/27/2025 12:12 PM [facility] Creatinine 1.16(H) 0.56 - 0.96 mg/dL 02/27/2025 12:12 PM [facility] Sodium 138 136 - 145 mmol/L 02/27/2025 12:12 PM [facility] Potassium 3.9 3.5 - 4.5 mmol/L 02/27/2025 12:12 PM [facility] Chloride 103 98 - 107 mmol/L 02/27/2025 12:12 PM [facility] CO2 29 22 - 29 mmol/L 02/27/2025 12:12 PM [facility] Glucose 128(H) 70 - 99 mg/dL 02/27/2025 12:12 PM [facility] Calcium 9.0 8.4 - 10.2 mg/dL 02/27/2025 12:12 PM [facility] Protein Total 6.8 6.0 - 8.3 g/dL 02/27/2025 12:12 PM [facility] Albumin 3.8 3.4 - 5.0 g/dL 02/27/2025 12:12 PM [facility] Bilirubin Total 0.6 0.2 - 1.2 mg/dL 02/27/2025 12:12 PM [facility] Alkaline Phosphatase 101 40 - 150 U/L 02/27/2025 12:12 PM [facility] ALT 10 5 - 55 U/L 02/27/2025 12:12 PM [facility] AST 15 5 - 34 U/L 02/27/2025 12:12 PM [facility] Anion Gap 6 6 - 16 02/27/2025 12:12 PM [facility] BUN/Creatinine Ratio 21 7 - 23 02/27/2025 12:12 PM [facility] Osmolality Calculated 292 275 - 295 mOsm/kg 02/27/2025 12:12 PM [facility] Albumin/Globulin Ratio 1.3 1.1 - 2.3 02/27/2025 12:12 PM [facility] eGFR by CKD-EPI 46(L) >=90 mL/min/1.7 3 m2 02/27/2025 12:12 PM [facility] Comment:Estimated Glomerular Filtration Rate (eGFR) calculated using the CKD-EPI Creatinine Equation (2020), per the National Kidney Foundation and [place] [employer] of Nephrology recommendations. Blood BLOOD SPECIMEN / Unknown Lab Venipuncture / Unknown 02/27/2025 11:10 AM CDT 02/27/2025 11:43 AM CDT us Ana Joy SOLDERING MACHINE SETTER-GROUP FITNESS ASSISTANT DEPARTMENT HEAD LAB - CHEMISTRY ORDERAB LES Final Result [address] [address], [facility] [phone] * PHOSPHORUS BLOOD (02/27/2025 11:10 AM CDT) Phosphorus 3.9 2.9 - 5.1 mg/dL 02/27/2025 12:12 PM [facility] Blood BLOOD SPECIMEN / Unknown Lab Venipuncture / Unknown 02/27/2025 11:10 AM CDT 02/27/2025 11:43 AM CDT us Ana Joy [facility] - CHEMISTRY ORDERAB LES Final Result Performing Organization Address City/[facility]/ZIP Co de Phone Number [address] [address], [place] [phone] * MAGNESIUM BLOOD (02/27/2025 11:10 AM CDT) Magnesium 1.8 1.6 - 2.6 mg/dL 02/27/2025 12:12 PM CDT [facility] Blood BLOOD SPECIMEN / Unknown Lab Venipuncture / Unknown 02/27/2025 11:10 AM CDT 02/27/2025 11:43 AM CDT us Ana Joy [facility] - CHEMISTRY ORDERAB LES Final Result Performing Organization Address [facility]/ZIP Co de Phone Number [address] [address], [place] [phone] * TSH (02/27/2025 11:10 AM CDT) TSH 2.388 0.350 - 4.940 uIU/mL 02/27/2025 12:30 PM CDT [facility] Blood BLOOD SPECIMEN / Unknown Lab Venipuncture / Unknown 02/27/2025 11:10 AM CDT 02/27/2025 11:43 AM CDT us Ana Joy [facility] - CHEMISTRY ORDERAB LES Final Result Performing Organization Address City/[facility]/ZIP Co de Phone Number [address] [address], [place] [phone] * XR Spine Entire 2 or 3Vw (02/14/2025 12:06 PM CDT) Anatomical Region Laterality Modality Spine Radiographic Kathleen ging 02/14/2025 12:1 6 PM CDT Impressions 02/14/2025 12:19 PM CDT IMPRESSION: Thoracolumbar scoliosis. > Interpreting Provider: Gil Baig MD on 02/14/2025 12:19 PM Narrative 02/14/2025 12:19 PM CDT PROCEDURE: XR SPINE ENTIRE 2 OR 3VW DATE/TIME OF EXAM: 02/14/2025 12:06 PM CLINICAL INFORMATION: None relevant/not provided if blank. Indication: M54.9: Back pain, unspecified back location, unspecified back pain laterality, unspecified chronicity Additional History: COMPARISON: 05/20/2020. TECHNIQUE: FINDINGS: There is dextroscoliosis measuring 18 degrees from T10 to L4. Balance in the sagittal plane is +14 cm. There is straightening of the usual thoracic kyphosis and reversal of the usual lumbar lordosis. There are moderate spinal degenerative changes. A cardiac pacemaker/AICD is present with a right chest wall with leads extending to the heart. Procedure Note Gil Baig MD - 02/14/2025 PROCEDURE: XR SPINE ENTIRE 2 OR 3VW DATE/TIME OF EXAM: 02/14/2025 12:06 PM CLINICAL INFORMATION: None relevant/not provided if blank. Indication: M54.9: Back pain, unspecified back location, unspecifiedback pain laterality, unspecified chronicity Additional History: COMPARISON: 05/20/2020. TECHNIQUE: FINDINGS: There is dextroscoliosis measuring 18 degrees from T10 to L4. Balance in the sagittal plane is +14 cm. There is straightening of the usualthoracic kyphosis and reversal of the usual lumbar lordosis. There are moderate spinal degenerative changes. A cardiac pacemaker/AICD is present with a right chest wall with leads extending to the heart. IMPRESSION: Thoracolumbar scoliosis. > Interpreting Provider: Gil Baig MD on 02/14/2025 12:19 PM us Arabella Aranda PA-C DIAGNOSTIC IMAGING ORDERABL ES Final Result * IMAGING/RADIOLOGY/XRAY RESULTS ORDER (02/11/2025) Anatomical Region Laterality Modality Other 02/11/2025 Narrative 02/11/2025 Ordered by an unspecified provider. us Scanned Document IMAGING Final Result * XR Knee Right 4Vw or More [...] in the lateral compartment where there is llir-ql-iyny contact. There is increase of the usual [...] severein the lateral compartment where there is fyri-qd-bjkq contact. There is increase of the usual valgus carrying angle and mild widening of themedial compartment joint space. A small effusion is noted. IMPRESSION: Osteoarthritis, severe in the lateral compartment, progressed. > Interpreting Provider: Gil Baig MD on 01/08/2025 12:18 PM us Razia ALARCON DIAGNOSTIC IMAGING ORDERABLES Fi nal Result * SD PM DEVICE INTERROGATE REMOTE, SD PM/ICD REMOTE TECH SERV (12/15/2024 2:23 PM CDT) Narrative Bharathi Higuera MD - 12/15/2024 2:23 PM CDT Bharathi Higuera MD 12/15/2024 2:24 PM Dear Salome Aaron, I reviewed the [...] any further questions. Sincerely, Bharathi Higuera 12/15/2024 Bharathi Higuera MD PROCEDURE/MINOR SURGICAL ORDERAB LES Final Result * BONE DENSITY AXIAL SKELETON(1OR MORE SITES)[id number] (06/17/2022 1:22 PM JINRIKISHA DRIVER) Anatomical Region Laterality Modality Other 06/20/2022 5:28 PM JINRIKISHA DRIVER Narrative 06/20/2022 5:29 PM JINRIKISHA DRIVER PROCEDURE: DEXA BONE DENSITY AXIAL SKELETON, DATE/TIME OF EXAM: 06/17/2022 1:23 PM, LOCATION [facility] 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 [...] SKELETON, DATE/TIME OF EXAM:06/17/2022 1:23 PM, LOCATION [facility] 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 [...] DO on 06/20/2022 5:29 PM Kristen Graf SOLDERING MACHINE SETTER-GROUP FITNESS ASSISTANT DEPARTMENT HEAD DEXA ORDERABLES Final R esult from Last 3 Months or Most Recently Relevant to Health Maintenance Insurance MEDICARE [facility] MEDICARE [facility] Advance Directives * Full Code (Latest Code Status on File) Date Activated Date Inactivated Comments 07/03/2021 6:20 PM 07/04/2021 5:26 PM Care Teams Job Lithographer Relationship Specialty Start Date End Date Kristen Graf, SOLDERING MACHINE SETTER-GROUP FITNESS ASSISTANT DEPARTMENT HEAD [address] [address] PCP - General 05/24/21
--- OUTSIDE RECORDS SUMMARY | 2025-03-06 01:54 | XMS_ITS | Clinical Summary ---
Author Organization [facility] Address [address] [place] [address] Phone Care Team Providers Care Talent Assistant Name Role Phone Minh Thornton MD Primary Care Provider [phone] Allergies No known active allergies Medications CALCIUM CARBONATE (CALCIUM 500 ORAL) Take by mouth. Activ e MULTIVITAMINS WITH FLUORIDE (MULTI-VITAMIN ORAL) Take by mouth. Activ e clobetasol (TEMOVATE) 0.05 % Lotion Apply to affected area. Active XIIDRA 5 % Dropperette 8 Active XARELTO 20 mg Tablet 8 Active vit C/E/Zn/manager endoscopy/lut/z ea/bio/saf (RETAINE VISION ORAL) Take by mouth. [...] Encounters Date Type Department Care Team Description 03/04/2025 External Device Data [facility]STRACTION Provider, Abstract 01/14/2025 External Device Data [facility]STRACTION Provider, [...] on file Legal Sex Female 3:34 AM CONTACT REPRESENTATIVE Gender Identity Not on file Sexual Orientation Not on file Occupation Industry Job Start Date Job End Date Not on file Not on file Not on file Not on file Last Filed Vital Signs Vital Sign Reading Time Taken Comments Blood Pressure 122/78 03/19/2024 10:45 AM CONTACT REPRESENTATIVE Pulse - - Temperature - - Respiratory Rate - - Oxygen Saturation - - Inhaled Oxygen Concentration - - Weight 73 kg (161 lb) 03/19/2024 10:45 AM CONTACT REPRESENTATIVE Height 167.6 cm (5' 6) 03/19/2024 10:45 AM CONTACT REPRESENTATIVE Body Mass Index 25.99 03/19/2024 10:45 AM CONTACT REPRESENTATIVE Plan of Treatment Upcoming Encounters Date Type Department Care Team (Late st Contact Info) Description 05/05/2025 2:00 PM CONTACT REPRESENTATIVE Office Visit [facility] CUSTOM APPLICATOR - [id number] [employer] [address] [address] Vero Rodriguez DO [address] [employer] [place] [id number] Health Maintenance Due Date Last Done Comments [...] [employer] Care Teams Talent Assistant Relationship Specialty Start Date End Date Minh Thornton MD PCP - General Internal Medicine 01/01/15
--- OUTSIDE RECORDS SUMMARY | 2025-03-06 01:54 | XMS_ITS | Patient Health Record ---
Author Organization [facility] Address [address] [place], [place] [id number] Care Team Providers Care Brine Room Laborer Name Role Phone CRISTAL DELGADO Unavailable [phone] Minh Thornton Unavailable Unavailable Reason For Referral No Information Medications Medication SIG (Take, Route, Frequency, Duration) Notes Start Date End Date Status Aspirin 81 MG Oral aspirin 81 MG Ch ewable TabletOriginal Medicationaspirin 81 MG Chewable Tablet 01/08/2016 Active Lisinopril 20 MG Oral Tablet ORAL lisinopril 20 MG Oral TabletOriginal Medicationlisinopril 20 MG Oral Tablet *Reorder from [facility] for eRx and Interaction Alerts* 01/08/2016 Active calcium carbonate 1250 MG Oral Tablet ORAL calcium carbonate 1250 MG Oral TabletOriginal Medicationcalcium carbonate 1250 MG Oral Tablet *Reorder from [facility] for eRx and Interaction Alerts* 01/08/2016 Active Plan Of Treatment No Information Insurance Providers Payer Name Payer Address Payer Phone Subscriber Number Group Number Insured Name Patient Relationship to Insured Coverage Start Date Coverage End Date Medicare Part B [place] [address] [place] [address] [id number] SALOME MÉNDEZ Self - patient is the insured LEANDRO [address] [facility] [place] [phone] [id number] SALOME MÉNDEZ Self - patient is the insured
--- OUTSIDE RECORDS SUMMARY | 2025-03-06 01:59 | XMS_ITS | Encounter Summary ---
Author Organization [facility] Address [address] [place] [address] Care Team Providers Care Practice Specialist Name Role Phone Minh Thornton MD Primary Care Provider [phone] Kristen Graf APRN-WAGE AND SALARY ADMINISTRATOR Primary Care Provider Tracie Pritchett MD Primary Care Provider [phone] Kristen Graf APRN-WAGE AND SALARY ADMINISTRATOR Primary Care Provider Encounter Details Date Type Department Care Team (Late st Contact [facility]) Description 03/10/2020 Telephone [facility] [address] [place] [address] Kristen Graf APRN-WAGE AND SALARY ADMINISTRATOR [address] [phone] Social History Tobacco Use Types [...] at your convenience. Patient Call Back number: [phone] documented in this encounter Plan of Treatment Upcoming Encounters Date Type Department Care Team (Late st Contact Info) Description 03/28/2025 1:40 PM PAPER WRAPPING MACHINE OPERATOR Office Visit [facility] [address] [place] [phone] Ana Joy, [employer]-WAGE AND SALARY ADMINISTRATOR [address] [place] [phone] 04/18/2025 11:45 AM PAPER WRAPPING MACHINE OPERATOR Office Visit [facility] [address] [place] [phone] Arabella Aranda PA-C [address] [place] [address] 04/25/2025 11:00 AM PAPER WRAPPING MACHINE OPERATOR Office Visit [facility] [address] [place] [phone] Kristen Graf, [employer]-WAGE AND SALARY ADMINISTRATOR [address] [phone] 05/20/2025 1:00 AM PAPER WRAPPING MACHINE OPERATOR Clinical Support [facility] [address] [facility], [address] [phone] 05/22/2025 1:00 PM PAPER WRAPPING MACHINE OPERATOR Office Visit [facility] [address] [facility], [address] [phone] Bharathi Higuera MD [address] [facility], [address] [address] 08/19/2025 1:00 AM CDT Clinical Support [facility] [address] [facility], [address] [phone] documented as of this encounter Visit Diagnoses Not on filedocumented in this encounter Care Teams Practice Specialist Relationship Specialty Start Date End Date Minh Thornton MD [address] [place] [address] PCP - General 03/02/20 04/26/20 Kristen Graf, [employer]-WAGE AND SALARY ADMINISTRATOR [address] [place] [address] PCP - General 04/27/20 05/19/21 Tracie Pritchett MD [address] [place], [place] [address] [address] [place] [address] PCP - General Internal Medicine Geriatric Medicine 05/20/21 05/23/21 Kristen Graf, [employer]OWER-WAGE AND SALARY ADMINISTRATOR [address] [phone] PCP - General 05/24/21 documented as of this encounter
--- NOTE | 2025-03-06 02:02 | ECG_ITS ---
Test Date: 2025-03-06 02:10:00 Measurements Intervals Baxter Rate: 68 P: 0 DC: 0 QRS: -79 QRSD: 146 T: 78 QT: 471 QTc: 502 Interpretive Statements ELECTRONIC ATRIAL PACEMAKER RIGHT BUNDLE BRANCH BLOCK LEFT ANTERIOR FASCICULAR BLOCK CANNOT R/O SEPTAL INFARCT, AGE INDETERMINATE BASELINE ARTIFACT- I, II ABNORMAL ECG Compared to ECG 08/08/2024 11:14:31 NO SIGNIFICANT CHANGE Electronically Signed On 03-06-2025 05:13:03 CDT by Garrison Stewart D.O.
[2025-03-06 02:05] VITALS: BP 162/81; PULSE 65; RESP 16; TEMP 37; O2SAT 90; O2SAT 95
--- NOTE | 2025-03-06 02:23 | ED.URI ---
HPI - URI/Sore Throat General Chief Complaint: Upper Respiratory Infection Stated Complaint: lungs has burning sensation Time Seen by Provider: 03/06/25 01:55 History of Present Illness HPI Narrative: 84-year-old female with history of COPD on nightly oxygen, permanent pacemaker, history of paroxysmal AFib. Patient presents to the emergency department today with lung irritation. Patient describes burning sensation her lungs that she has had previously. Has seen her analytics manager numerous times for this on review of the EMR. Patient was told to have a humidifier in the room and avoid sleeping with fans during that visit and continue the nightly oxygen with condenser. Recently started Spiriva otherwise no medication changes. No chest pain or difficulty breathing. No fever, chills. She states she has had the symptoms intermittent since Monday but has not followed up with her primary doctor or analytics manager. Denies any fever, chills or cough. Related Data Home Medications ?Medication ?Instructions ?Recorded ?Confirmed ?Last Taken ?Type cholecalciferol (vitamin D3) 25 1,000 unit PO DAILY 01/13/20 12/18/24 07/31/24 History mcg (1,000 unit) capsule hydralazine 50 mg tablet 50 mg PO DAILY PRN Hypertension 03/26/21 12/18/24 Unknown History rivaroxaban 15 mg tablet (Xarelto) 15 mg PO QPM 04/27/21 12/18/24 07/30/24 History buspirone 10 mg tablet 20 mg PO 0830,1330,1930 01/11/22 12/18/24 07/31/24 08:30 History carvedilol 25 mg tablet (Coreg) 12.5 mg PO Q12H 11/08/23 12/18/24 07/31/24 08:30 History cyclosporine 0.05 % eye drops 1 drp EACH EYE Q12H 11/08/23 12/18/24 07/31/24 History (Restasis MultiDose) flecainide 150 mg tablet 150 mg PO Q12H 11/08/23 12/18/24 07/31/24 History sennosides 8.6 mg-docusate sodium 1 tab-cap PO DAILY 08/08/24 12/18/24 Unknown History 50 mg tablet (Senna with Docusate Sodium) famotidine 20 mg tablet (Pepcid AC) 20 mg PO DAILY 10/23/24 12/18/24 Unknown History losartan 25 mg tablet 37.5 mg PO DAILY 12/18/24 12/18/24 Unknown History Allergies Allergy/AdvReac Type Severity Reaction Status Date / Time monosodium glutamate AdvReac Unknown Fatigued Verified 03/06/25 01:52 Review of Systems Review of Systems: As reviewed above in [facility] Past Medical History Medical History Hoarse voice quality Hypokalemia Diastolic dysfunction Transient ischemic attack At the age of 29, attributed to oral contraceptives. Chronic anticoagulation Anxiety Chronic obstructive pulmonary disease Related to significant secondhand smoke exposure. Dyslipidemia Left carotid bruit Unremarkable carotid Doppler ultrasounds on 09/09/2019. Eczema Paroxysmal atrial fibrillation Paroxysmal atrial fibrillation/atrial flutter. Maintained on flecainide, carvedilol, and rivaroxaban. Patient of Dr. Bharathi Higuera at [facility]. Hypertension Headache, migraine Arthritis Surgical History Surgical History History of permanent cardiac pacemaker placement History of cardiac radiofrequency ablation History of tubal ligation History of tonsillectomy History of appendectomy History of ventral hernia repair History of uterine suspension procedure History of eyelid surgery Family History Family History Mother Family history of kidney disease Family history of elevated blood lipids Acute myocardial infarction, Onset Age: 93 Family history of liver disease, Onset Age: 93 Family history of congestive heart failure Family history of chronic obstructive pulmonary disease Family history of renal failure, Onset Age: 93 Father Family history of migraine headaches Hypertension Grandparent Cerebrovascular accident Other Family history of cardiovascular disease Social History Social History Social History: Surrogate medical decision maker: Alcides Aaron, spouse. Code status: Full code. Smoking status: Never smoker Second hand tobacco smoke exposure: Yes Alcohol intake: never Substance use: never Substance use type: does not use Do You Feel Safe in your Home?: Yes Lack of Transportation: No Lack of Food: Never True Current Housing: I Have Housing Concerned About Future Housing: No Difficulty Paying Gas/Electric Bills: No Difficulty Paying for Meds: No Currently Unemployed: No Education: Bachelor's Degree Difficulty w/ Childcare or Family Care: No Additional living arrangements comments: . Lives with spouse in [place]. They have 2 children. 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 Spiritual care concerns: No Exam Narrative: GENERAL: [Well-appearing, well-nourished, and in no acute distress.] HEAD: [Normocephalic, atraumatic.] EYES: [PERRLA and EOMI.] ENT: Nares clear, no rhinorrhea or epistaxis. Mucous membranes moist. NECK: Supple. CHEST: Clear to auscultation, no respiratory distress, tachypnea, wheezing or rales. HEART: [Regular rate and rhythm]. No murmur heard. [Normal peripheral pulses.] ABDOMEN: [Soft, nondistended], [nontender], [No rigidity or guarding] EXTREMITIES: Normal range of motion. [No edema.] SKIN: Warm, dry, no rash. NEURO: [No focal deficits]. Alert and oriented [x3.] PSYCH: [Normal mood and affect.] Course Vital Signs Vital signs: Vital Signs Temperature 37.0 C 03/06/25 02:05 Pulse Rate 65 03/06/25 02:05 Respiratory Rate 16 03/06/25 02:05 Blood Pressure 162/81 H 03/06/25 02:05 Pulse Oximetry 90 03/06/25 02:05 Oxygen Delivery Room Air 03/06/25 02:05 Temperature 37.0 C 03/06/25 02:05 Pulse Rate 65 03/06/25 02:05 Respiratory Rate 16 03/06/25 02:05 Blood Pressure 162/81 H 03/06/25 02:05 Pulse Oximetry 95 03/06/25 02:05 Oxygen Delivery Room Air 03/06/25 02:05 MDM - URI/Sore Throat MDM Narrative Medical decision making narrative: 84-year-old female with history of COPD on nightly oxygen, permanent pacemaker, history of paroxysmal AFib. Patient presents to the emergency department today with lung irritation. Patient describes burning sensation her lungs that she has had previously. Has seen her analytics manager numerous times for this on review of the EMR. Patient was told to have a humidifier in the room and avoid sleeping with fans during that visit and continue the nightly oxygen with condenser. Recently started Spiriva otherwise no medication changes. No chest pain or difficulty breathing. No fever, chills. She states she has had the symptoms intermittent since Monday but has not followed up with her primary doctor or analytics manager. Denies any fever, chills or cough. Patient has clear breath sounds throughout, no wheezing, rhonchi, rales, retractions. No tachypnea, fever, hypoxemia. No unremarkable blood pressure. Patient has had similar complaints previously on review of patient's pulmonology notes. She does have COPD on several different inhalers and recently started Spiriva. Low suspicion infectious pathology such as pneumonia possibility of some pleurisy or bronchitis versus less likely COPD exacerbation given her clear breath sounds. Will swab for viral panel, chest x-ray ordered and basic laboratory studies obtained. EKG obtained and patient placed on monitor. Labs showed no leukocytosis or anemia. Normal platelet count. Electrolytes unremarkable. Normal creatinine. Normal glucose, normal LFTs. Negative quad viral screen. Chest x-ray two view showed no acute process. Stable chest. EKG shows atrial paced rhythm. Patient remains hemodynamically stable without any hypoxia or tachypnea. Safe for discharge home at this time with regular pulmonology follow-up. Medical Records Attestation: I reviewed the patient's medical records. Lab Data Attestation: I reviewed the patient's lab results. 03/06/25 02:26 03/06/25 02:26 Labs: Lab Results 03/06/25 03/06/25 Range/Units 02:26 02:43 WBC 8.5 (4.5-10.0) K/mm3 RBC 4.00 L (4.2-5.4) M/mm3 Hgb 12.7 D (12.0-15.0) g/dL Hct 38.6 (37.0-47.0) % MCV 96.5 (80-100) fl MCH 31.8 (26-34) pg MCHC 32.9 (32-36) g/dl RDW 12.9 (11.5-14.5) % Plt Count 191 (150-375) k/mm3 MPV 8.8 (7.4-10.4) fl Immature Gran % (Auto) 0.2 (0-0.5) % Neut % (Auto) 59.0 (45.5-73.1) % Lymph % (Auto) 29.0 (18.3-44.2) % [place] % (Auto) 9.8 H (2.6-8.5) % Eos % (Auto) 1.8 (0-4.4) % Baso % (Auto) 0.2 (0.2-1.2) % Lymph # (Auto) 2.46 (0.9-3.2) K/mm3 [place] # (Auto) 0.8 H (0.1-0.6) K/mm3 Eos # (Auto) 0.2 (0-0.3) K/mm3 Baso # (Auto) 0.0 (0.0-0.1) K/mm3 Abs Immat Gran (auto) 0.02 (0.00-0.031) K/mm3 Absolute Neuts (auto) 5.0 (1.3-6.7) K/mm3 Absolute Nucleated RBC 0.000 (0.0-0.012) K/mm3 Nucleated RBC % 0.0 (0.0-0.2) % Sodium 137 (137-145) mmol/L Potassium 4.1 (3.4-5.0) mmol/L Chloride 99 (98-107) mmol/L Carbon Dioxide 32 H (22-30) mmol/L Anion Gap 6 (4-12) mmol/L BUN 21 H (7-17) mg/dL Creatinine 0.97 (0.7-1.0) mg/dL Estim Creat Clear Calc Not Reportable Estimated GFR 55 L (59 - ) Glucose 103 (65-110) mg/dL Calcium 9.5 (8.4-10.2) mg/dL Magnesium 1.9 (1.6-2.3) mg/dL Total Bilirubin 0.5 (0.2-1.3) mg/dL AST 25 (14-36) U/L ALT 14 (6-35) U/L Alkaline Phosphatase 110 (38-126) U/L Total Protein 7.9 (6.3-8.2) g/dL Albumin 4.3 (3.5-5.1) g/dL Influenza A (RT-PCR) Negative (Negative) Influenza B (RT-PCR) Negative (Negative) RSV (RT-PCR) Negative (Negative) SARS-CoV-2 RNA (RT-PCR) Negative (Negative) Imaging Data Attestation: I personally reviewed and interpreted this imaging study as follows: My impression: No pneumonia or infection Discharge Plan Discharge Clinical Impression: Pleurisy Patient Disposition: Home Condition: Stable Instructions: Antibiotic Form Additional Instructions: No signs of infection, no COVID or flu. Laboratory studies are normal. Talk to your analytics manager about your ER visit today for close follow-up visit. Return with any worsening or new symptoms or any other issues. Patient Language: Japanese Prescriptions: No Action cholecalciferol (vitamin D3) 25 mcg (1,000 unit) capsule 1,000 unit PO DAILY carvedilol [Coreg] 25 mg tablet 12.5 mg PO Q12H Rx Instructions: must administer with a meal/food flecainide 150 mg tablet 150 mg PO Q12H Restasis MultiDose 0.05 % drops 1 drp EACH EYE Q12H losartan 25 mg tablet 37.5 mg PO DAILY famotidine [Pepcid AC] 20 mg tablet 20 mg PO DAILY mupirocin [Centany] 2 % ointment 1 applic topical 6XD Qty: 44 3RF Rx Instructions: intranasal Xarelto 15 mg tablet 15 mg PO QPM buspirone 10 mg tablet 20 mg PO 0830,1330,1930 furosemide 20 mg Tablet 20 mg PO BID Qty: 14 0RF hydralazine 50 mg tablet 50 mg PO DAILY PRN (Reason: Hypertension) sennosides-docusate sodium [Senna with Docusate Sodium] 8.6-50 mg tablet 1 tab-cap PO DAILY tiotropium bromide 18 mcg capsule, w/inhalation device 1 cap inhalation DAILY Qty: 60 3RF Rx Instructions: puncture 1 cap using device; one dose = 2 inhalations tiotropium bromide 1.25 mcg/actuation mist for inhalation 1.25 mcg/actuation mist 0RF Spiriva Respimat 1.25 mcg/actuation mist 2 puff inhalation DAILY Qty: 4 2RF Follow-up/Referrals: UNKNOWN,DOCTOR [Primary Care Provider] Time of Disposition: 05:38
[2025-03-06 02:30] LABS: Hematocrit 38.6 % (37.0-47.0); Hemoglobin 12.7 g/dL (12.0-15.0); Immature Granulocyte Percent A 0.2 % (0-0.5); Lymphocytes Absolute Auto 2.46 K/mm3 (0.9-3.2); Mean Corpuscular HGB Conc 32.9 g/dl (32-36); Mean Corpuscular Hemoglobin 31.8 pg (26-34); Mean Corpuscular Volume 96.5 fl (80-100); Nucleated Red Blood Cells Absolute Auto 0.000 K/mm3 (0.0-0.012); Nucleated Red Blood Cells Perc 0.0 % (0.0-0.2); Platelet Count Result 191 k/mm3 (150-375); Red Blood Count 4.00 M/mm3 (4.2-5.4); White Blood Count 8.5 K/mm3 (4.5-10.0)
[2025-03-06 02:46] LABS: Alanine Aminotransferase 14 U/L (6-35); Albumin Level 4.3 g/dL (3.5-5.1); Alkaline Phosphatase 110 U/L (38-126); Anion Gap 6 mmol/L (4-12); Aspartate Amino Transferase 25 U/L (14-36); Bilirubin,Total 0.5 mg/dL (0.2-1.3); Blood Urea Nitrogen 21 mg/dL (7-17); Calcium 9.5 mg/dL (8.4-10.2); Carbon Dioxide 32 mmol/L (22-30); Chloride 99 mmol/L (98-107); Estimated Glomerular Filt Rate 55; Glucose 103 mg/dL (65-110); Magnesium 1.9 mg/dL (1.6-2.3); Potassium 4.1 mmol/L (3.4-5.0); Sodium 137 mmol/L (137-145); Total Protein 7.9 g/dL (6.3-8.2)
[2025-03-06 03:24] LABS: Influenza A QL RT-PCR Negative (Negative); Influenza B QL RT-PCR Negative (Negative); RSV RNA, RT-PCR Negative (Negative); SARS-CoV-2 RNA PCR Negative (Negative)
== END 2025-03-06 06:09 | disposition home or self-care (01) ==
PROVIDERS: Emergency Provider Student in an Organized Health Care Education/Training Program
DX: R09.1 Pleurisy (principal); I48.0 Paroxysmal atrial fibrillation; I11.9 Hypertensive heart disease without heart failure; J44.9 Chronic obstructive pulmonary disease, unspecified; Z99.81 Dependence on supplemental oxygen; E78.5 Hyperlipidemia, unspecified; M19.90 Unspecified osteoarthritis, unspecified site; F41.9 Anxiety disorder, unspecified; Z96.89 Presence of other specified functional implants; Z86.73 Personal history of transient ischemic attack (TIA), and cerebral infarction without residual deficits; Z77.22 Contact with and (suspected) exposure to environmental tobacco smoke (acute) (chronic); Z79.899 Other long term (current) drug therapy; Z79.01 Long term (current) use of anticoagulants; I45.2 Bifascicular block; R94.31 Abnormal electrocardiogram [ECG] [EKG]
CPT/HCPCS: 36415; 71046; 80053; 83735; 85025; 87637; 93005; 99283; 99284